=== PATIENT | female | born 1960 | race Caucasian/White ===

== ENCOUNTER → 2017-04-25 10:00 | Outpatient (CLI) | payer SELFPAY ==
--- NOTE | 2017-04-25 | BRBX_PTH ---
PATIENT: VICKEY BUITRAGO LOC: [facility] U#:[id number] AGE/SX: 64/F ROOM: RE04/25/[address]: Dr. Oralia Bermudez MD : 1960 BED: DIS: SPEC #: [id number] RECD: 04/26/17 16:43 STATUS: TOMMY VENKATA #: [id number] MARTÍN: 04/25/17 00:[address]: Oralia Bermudez DEPT: SURGICAL PATHOLOGY RECD BY: Minnie San ENTERED: 04/27/17 10:46 SP TYPE: BREAST BX BRITNI DR: Zeynep Primary Care Phys Tissues: Right breast, NOS Procedures: Special Stain Group I Surgery Specimen Level IV AFB Stain (control) GMS Stain (control) HEADER OPERATION: Ultrasound-guided mammotome right breast PRE-OP DIAGNOSIS: Abnormal mammogram TISSUE SUBMITTED: Ultrasound-guided right breast mammotomeantoinette culture and sensitivity ISCHEMIC TIME: <1 minute FIXATION TIME: 14 hours MICROSCOPIC DIAGNOSIS Right breast, Ultrasound-guided mammotome core biopsy: Fragment of fibroadipose and fibroconnective tissue with acute and chronic inflammation and histiocytic reaction. Negative for atypia or malignancy. Special stains for acid fast bacilli and fungi are negative for organisms; matched controls are appropriate. AYSE:temo 04/30/17 COMMENT Breast tissue is not identified in the submitted specimen. The results of culture study will be reported separately. Correlation with clinical, radiologic findings and appropriate follow up are necessary. MICROSCOPIC DESCRIPTION Slides are reviewed. GROSS DESCRIPTION Received in fixative is one container labeled with the patient's name and designated right breast. The specimen consists of multiple fragments of tay-yellow fibroadipose tissue mixed with multiple fragments of brownish material that in aggregate measure 2.5 x 1.5 x 0.2 cm. The entire specimen is submitted in one cassette. / AYSE:temo 04/27/17 TC:2 CPT: 85897, 59892 x2
== END ==
PROVIDERS: Visit Provider Surgery
DX: R92.8 Other abnormal and inconclusive findings on diagnostic imaging of breast (principal)
CPT/HCPCS: 87070; 87205; 88305; 88312

== ENCOUNTER 2017-06-21 05:36 | Day surgery (SDC) | payer BC, SELFPAY ==
[2017-06-21 06:06] VITALS: BP 109/64; PULSE 66; RESP 16; TEMP 36.3; O2SAT 98; BMI 30.4
--- NOTE | 2017-06-21 07:30 | EMB_PTH ---
PATIENT: VICKEY BUITRAGO LOC: [facility] [place] U#:[id number] AGE/SX: 57/F ROOM: RE06/21/[address]: Dr. Raisa Latham MD : 1960 BED: DIS: 06/21/2017 SPEC #: [id number] RECD: 06/21/17 08:42 STATUS: TOMMY VENKATA #: [id number] MARTÍN: 06/21/17 07:[address]: Raisa Latham DEPT: SURGICAL PATHOLOGY RECD BY: David Virgen ENTERED: 06/21/17 09:11 SP TYPE: ENDOM BX/C BRITNI DR: Dr. Oh Crabtree MD Tissues: Endometrium, NOS Procedures: Surgery Specimen Level IV HEADER OPERATION: Hysteroscopy, dilation and curettage PRE-OP DIAGNOSIS: Postmenopausal bleeding TISSUE SUBMITTED: Endometrial curettings MICROSCOPIC DIAGNOSIS Endometrial curettings: Scant strips of benign endometrial epithelium, consistent with atrophic endometrium. Fragments of benign ectocervical mucosa, endocervical epithelium and blood clots. AYSE:temo 06/22/17 MICROSCOPIC DESCRIPTION Slides are reviewed. GROSS DESCRIPTION Received in fixative is one container labeled with the patient's name and designated endometrial curettings. The specimen consists of multiple fragments of hemorrhagic soft tissue that in aggregate measure 1.5 x 0.2 x 0.1 cm. The specimen is totally submitted in one cassette. / AYSE:temo 06/21/17 TC:4 CPT: 95414
[2017-06-21] MEDS: Lubricating Jelly 60 GM Tube 30 GM TOPICAL (07:50)
--- NOTE | 2017-06-21 08:06 | PCM.DC.D&C ---
Discharge Diet: No Restrictions Discharge Activity: Return to Normal Activity, May Shower, May Take a Tub Bath - in 2 weeks. Return to work on:: 06/25/17 May shower in (days): 0 May resume sexual activity in: 2 weeks Allergies/Adverse Reactions: Allergies No Known Allergies Allergy (Verified 06/14/17 16:00) Medications to take at Discharge Clotrimazole/Betamethasone Dip [Clotrimazole-Betamethasone Lot] 30 ml TP PRN PRN 06/14/17 Ursodiol [Actigall] 300 mg PO TID 06/14/17 Primary Care Physician: Oh Crabtree MD [Primary Care Provider] - Please Follow Up With: Raisa Latham MD - [phone] When: 1-2 weeks or as needed
[2017-06-21 08:08] VITALS: BP 107/66; BP 109/64; PULSE 68; RESP 16; TEMP 36.8; O2SAT 93
--- NOTE | 2017-06-21 08:11 | OP.PCM_ITS ---
Report of Operation Date of Procedure: 06/21/17 Pre-Operative Diagnosis: postmenopausal bleeding Post-Operative Diagnosis: Postmenopausal bleeding Surgery/Procedure Performed:: Hysteroscopy dilation and curettage Description of Surgical Findings:: Normal-appearing cervix, normal vagina. Normal-appearing endometrium without discrete pathology. impression printer: Haydee Filed MS3 Type of Anesthesia:: MAC/Supplemental/Local Anesthesiologist: Rohan Phillips Special Medications: none Specimen's removed: Endometrial curettings Drains: none Estimated Blood Loss (mL): 5cc Fluids Replaced: 700 cc LR Description of Procedure: I The patient was taken to the OR where she was prepped and draped in dorsal lithotomy position. The weighted speculum was placed in the vagina and the anterior lip of the cervix was grasped with a single-tooth tenaculum. A paracervical block was administered with 1% lidocaine with 1-100,000 epinephrine solution. The cervix was dilated serially with Hegar dilators. The 5mm hysteroscope was placed into the uterine cavity and the above findings were noted. Bilateral tubal ostia were identified. The hysteroscope was removed. A gentle sharp curettage was done of the uterine cavity. The instruments were removed from the vagina. The specimen was handed off and sent to pathology. All sponge and needle counts were correct. Vaginal sweep was performed by me. The patient was awakened and taken to the recovery room in stable condition. Hysteroscopic ins: 100 cc normal saline Hysteroscopic outs:70cc Findings: Endometrial cavity: normal, no fibroids or polyps noted Cervix: normal Vagina: normal Grafts/Implants Used: none - Complications none - Admit VTE Documentation VTE Present on Admission: No VTE Mechan Device Prophylaxis: SCD's VTE Pharm Prophylaxis ordered?: No Reason prophylaxis not ordered:: Procedure Not Indicated
[2017-06-21 08:15] VITALS: BP 100/63; BP 109/64; PULSE 65; RESP 14; O2SAT 92
[2017-06-21 08:20] VITALS: BP 109/64; BP 98/64; PULSE 60; RESP 16; O2SAT 93
[2017-06-21 08:25] VITALS: BP 103/70; BP 109/64; PULSE 60; RESP 14; TEMP 36.7; O2SAT 92
[2017-06-21 08:42] VITALS: BP 109/64
== END 2017-06-21 09:50 | disposition home or self-care (01) ==
LOC: SDC 05:37 → AC 05:39
PROVIDERS: Family Provider Family Medicine; PCP Family Medicine; Visit Provider Obstetrics & Gynecology
PROC: 0UDB8ZZ Extraction of Endometrium, Via Natural or Artificial Opening Endoscopic (ICD-10-PCS; CPT 58558; principal; 2017-06-21 07:20)
DX: N85.8 Other specified noninflammatory disorders of uterus (principal); N95.0 Postmenopausal bleeding; K74.3 Primary biliary cirrhosis; E78.2 Mixed hyperlipidemia; F12.90 Cannabis use, unspecified, uncomplicated; Z87.891 Personal history of nicotine dependence; Z79.899 Other long term (current) drug therapy
CPT/HCPCS: 58558; 64435; 88305; J7120

== ENCOUNTER 2018-02-17 09:49 | Emergency (ER) | payer BC, SELFPAY ==
[2018-02-17 09:51] VITALS: BP 142/85; PULSE 79; RESP 16; TEMP 36.5; O2SAT 100; BMI 31.6
--- NOTE | 2018-02-17 10:05 | RAD_ITS ---
STUDY: X-RAY - LEFT SHOULDER REASON FOR EXAM: Female, 57 years old. Pain, decreased range of motion TECHNIQUE: 4 view(s) of the shoulder. COMPARISON: None. FINDINGS: There is mild degenerative arthrosis of the glenohumeral articulation. There is degenerative arthrosis of the acromioclavicular joint without inferior osseous spur formation. Normal acromion. Normal humeral head and visualized proximal humerus. The soft tissue structures are unremarkable. Normal visualized pulmonary apex. RAD/Shoulder min 2 Views IMPRESSION: Mild arthrosis, no demonstrated fracture Electronically Signed: Reinier Messer MD at 10:24 EST , Service support ,
--- NOTE | 2018-02-17 10:10 | ED.VISSUMM ---
- ER Visit Summary Date of Service: 02/17/18 Chief Complaint: Arm injury History of Present Illness: The patient is a 57 F who was shoveling her sidewalk this morning when she fell, landing on her left elbow. This transferred up to her left shoulder and she is now complaining of left shoulder pain. She denies paresthesias. She is right-hand dominant. Physical Examination: Vital signs unremarkable. Patient sitting upright in bed no acute distress. Head neck examination was no external sign of trauma. No C-spine tenderness. Heart is regular rate and rhythm. Lungs sounds are clear. Left upper extremity examination reveals tenderness over the anterior portion of the left shoulder. No evidence of shoulder dislocation. No focal tenderness throughout the humerus, elbow, or forearm. She has strong distal pulses. She does have limited range of motion with abduction secondary to pain. Test Results: Left shoulder x-rays are obtained. Per my review there are no acute fractures or dislocations. Emergency Department Course and Treatment: Patient declined anything for pain while here. Test results are discussed with her. She will be given a sling and instructed to come out of the sling 3 or 4 times a day to work on range of motion at her shoulder. She is given work restrictions for the next 3 days. If she is not improved in 1 week she is to follow-up with her primary care physician for possible further imaging. Treatment Plan: [] Disposition: Discharge Impression: 1. Mechanical fall 2. Left shoulder sprain This note was generated with [employer] dictation software. It may contain incorrect words, spelling, and punctuation that were not noted in review of the chart prior to signing ED Disposition - Plan for ED Patient: Chief Complaint: Upper Extremity Injury Referrals: Oh Crabtree MD [Primary Care Provider] -
--- NOTE | 2018-02-17 10:27 | ED.DEP ---
ED Disposition - Plan for ED Patient: Disposition: Home or Assisted Living Chief Complaint: Upper Extremity Injury Instructions: ED Sprain Shoulder Referrals: Oh Crabtree MD [Primary Care Provider] - 1 Week if not improving
[2018-02-17 10:49] VITALS: RESP 14
== END 2018-02-17 10:49 | disposition home or self-care (01) ==
PROVIDERS: Emergency Provider Emergency Medicine; Family Provider Family Medicine; PCP Family Medicine
DX: S43.402A Unspecified sprain of left shoulder joint, initial encounter (principal); W00.0XXA Fall on same level due to ice and snow, initial encounter; Y93.H1 Activity, digging, shoveling and raking; Y92.008 Other place in unspecified non-institutional (private) residence as the place of occurrence of the external cause; Z87.891 Personal history of nicotine dependence
CPT/HCPCS: 73030; 99282

== ENCOUNTER → 2023-07-17 | Outpatient (CLI) | payer BC, SELFPAY ==
--- NOTE | 2023-07-17 07:30 | PET_ITS ---
EXAMINATION: FDG PET/CT ? INDICATIONS: 63-year-old female with a history of pulmonary nodularity. ? COMPARISON EXAMINATION: None available ? INDEX LESION SIZE SUV INTERPRETATION Right lower lung field, right lower lobe 20.6 mm 14.0 Fulfills quantitative criteria for viable neoplasm ? Right thoracic perihilum 10.7 mm 10.3 Fulfills quantitative criteria for viable neoplasm ? NON-INDEX LESION ? ? ? Right-left thyroid colloid ? 1.9 max Quantitative criteria for viable neoplasm are not fulfilled ? TECHNIQUE: Following the intravenous administration of 12.47 mCi of F-18 deoxyglucose via the right antecubital fossa, multiplanar image acquisitions of the head, neck, chest, abdomen and pelvis to the level of the midthigh, obtained at one-hour post radiopharmaceutical administration contemporaneously interpreted with the current CT of the chest, abdomen and pelvis dated 07/17/2023 via coregistration reveal: ? SERUM GLUCOSE LEVEL:? 83 mg/dL? HEIGHT:?? 64 inches WEIGHT:?? 198 pounds ? FINDINGS: ? HEAD/NECK:? Facilitated uptake is noted in the right-left thyroid colloid generating a calculated standard uptake value of 1.9. ? The visualized portion of the cerebral cortical-subcortical structures demonstrate symmetric and preserved glucose metabolism. ? CHEST:? Facilitated FDG concentration is defined in the right mid posterior lung, right lower lobe generating a calculated standard uptake value of 14.0. The maximal axial diameter of the metabolic, morphologic abnormality is 20.6 mm. Facilitated FDG concentration is noted in the right thoracic perihilum generating a calculated standard uptake value of 10.3. The maximal axial diameter of the metabolic, morphologic abnormality is 10.7 mm. ? CT of the chest demonstrates the following anatomic characteristics: Atherosclerotic calcification is defined in the thoracic aorta without evidence of dilatation, aneurysm formation. Coronary artery calcification is observed. There are no additional parenchymal densities-nodules defined in the right and left hemithorax with quantitatively significant increased FDG uptake. Bilateral axillary and mediastinal soft tissue densities are ametabolic. ? ABDOMEN/PELVIS:? Normal physiologic distribution of the radiopharmaceutical is identified in the hepatic (3.9) and splenic parenchyma, both renal units, urinary bladder, and visualized intestinal tract. The cystic mass demonstrated in the posterior pelvis is nonglucose avid. ? CT of the abdomen and pelvis is remarkable for the following: Atherosclerotic calcification is defined in the abdominal aorta without evidence of dilatation, aneurysm formation. Pelvic arterial calcification is observed. Right and left inguinal soft tissue densities are ametabolic. ? SKELETAL:? An L4 on L5 Type I anterolisthesis is demonstrated. There is no evidence of quantitatively significant enhanced glucose metabolism on meticulous inspection of the appendicular and axial skeletal structures. ? Degenerative changes defined in the thoracic and lumbar spine demonstrate no evidence of increased glucose metabolism. There are no sclerotic, mixed sclerotic-lytic, or primarily lytic changes defined in the axial skeletal structures with evidence of increased FDG uptake. ? PET/PET/CT Tumor Base -Thigh Init IMPRESSION: 1. ABNORMAL EXAMINATION INDICATIVE OF MALIGNANT-VIABLE NEOPLASM. 2. Increased radiopharmaceutical concentration defined in the right lower lung field, right lower lobe fulfills quantitative criteria for viable neoplasm. 3. The right thoracic perihilar hypermetabolic focus fulfills quantitative criteria for malignant transformation. 4. Right and left thyroid colloid radiopharmaceutical concentration does not fulfill quantitative criteria for malignant transformation. (Jaime Michele et al, Journal of Clinical Endocrinology and Metabolism, 88:4100, 2003). Electronic Signature David Balderrama D.O. Accurate Quantification of SUVs for this report are calculated using the exclusive [employer]. ([place].S. Patent No. [phone] 674, 983 B2 [phone] [place] patent [phone]). Standardization and correction of the FDG SUV metric via [employer] technology allow for vendor non-specific objective quantitative examination comparison and optimization of the sensitivity and specificity of the FDG PET-CT examination. . [email or web address] Electronically Signed: David Balderrama DO at 23:07 EDT ,
== END | disposition home or self-care (01) ==
PROVIDERS: PCP Family Medicine
DX: R91.1 Solitary pulmonary nodule (principal)
CPT/HCPCS: 78815; A9552

== ENCOUNTER → 2023-08-24 | Outpatient (CLI) | payer BC, SELFPAY ==
[2023-08-24] VITALS (14 sets, daily range): BP systolic 91–131; BP diastolic 37–65; PULSE 50–67; RESP 9–18; TEMP 36.4; O2SAT 95–100; BMI 34.0
[2023-08-24 08:36] LABS: Absolute Lymphocyte Count 1.57 X10^3/uL (0.83-4.51); Absolute Neutrophil Count 4.2 X10^3/uL (2.0-7.7); Basophil# 0.07 X10^3/uL; Basophil% 1.1 % (0-1); Eosinophil# 0.18 X10^3/uL; Eosinophils% 2.7 % (0-5); Hematocrit 39.3 % (37-47); Hemoglobin 13.4 g/dL (12.0-15.0); Lymphocyte # 1.57 X10^3/ul (0.83-4.51); Lymphocyte % 23.9 % (19-41); Mean Corp Hgb Conc 34.1 g/dL (32-36); Mean Corpuscular Hgb 31.3 pg (27.0-32.0); Mean Corpuscular Volume 91.8 fL (81-99); Mean Platelet Vol. 9.4 fl (6.2-12.0); Monocyte# 0.54 X10^3/uL; Monocyte% 8.2 % (0-10); NRBC Flagged by Analyzer 0 % (0-5); Neutrophil % 63.8 % (47-70); Platelet Count 214 K/mm3 (150-450); RBC Distribution Width CV 12.4 % (11.6-14.6); RBC Distribution Width SD 41.5 fl (35.1-43.9); Red Blood Count 4.28 M/mm3 (4.2-5.4); White Blood Count 6.6 K/mm3 (4.4-11.0)
[2023-08-24 08:53] LABS: Prothrombin Time (Protime)PT. 12.8 SECONDS (11.7-14.9)
[2023-08-24] MEDS: 0.9% Saline Lock 10 ML Syringe IV (09:03)
[2023-08-24] MEDS: 0.9% Normal Saline (250mL Bag) 250 ML 15 ML IV (09:13)
[2023-08-24] MEDS: Midazolam 2 MG/2 ML Syringe IV (09:15)
--- NOTE | 2023-08-24 09:15 | CT_ITS ---
PROCEDURE: CT GUIDED CORE NEEDLE BIOPSY OF A right lower lobe LUNG LESION INDICATION: Female, 63 years old. Solitary pulmonary nodule PHYSICIAN: Dr. Mukul Villa CONSENT: Written informed consent was obtained having explained the risks, benefits and alternatives in detail with the patient who accepted the risks and agreed to proceed. Laboratory review and clinical assessment was performed. CONSCIOUS SEDATION PROTOCOL: The Drugs used were: 2 mg Versed, IV., and micrograms Fentanyl, IV. The sedation time was: 20 minutes. Conscious sedation was started at 9:15 AM and terminated at 9:35 AM The conscious sedation protocol was independently monitored. RADIATION DOSAGE (If Supplied By Facility): CTDIvol = ( 20.5 ) mGy, DLP = ( 537.84 ) mGycm Individualized dose optimization techniques were used for this CT. TECHNIQUE: The patient was placed in the prone position. A noncontrast CT was performed to localize the lesion in the right lower lobe . The skin surface was prepped and draped in a sterile fashion. 1% lidocaine was used for local anesthesia. Using CT guidance, a 20-gauge coaxial biopsy device was advanced to the periphery of the lesion. A total of 6 core specimens were obtained. The specimens were placed in a formalin solution. A post procedure CT demonstrated no adverse sequelae or pneumothorax. The patient tolerated the procedure well without adverse event. A negative biopsy does not exclude malignancy. Further imaging or clinical followup based on patient condition and degree of clinical suspicion for malignancy. Suggest rebiopsy, if biopsy results do not match with clinical scenario. CT/Biopsy/Inj or Needle Placement IMPRESSION: 1. CT directed core needle biopsy of the right lower lobe pulmonary nodule using CT image guidance with image documentation as described. Pathology results are pending. 2. Conscious Sedation protocol utilized with independent monitoring. Electronically Signed: Ciro Gilman MD at 10:10 EDT ,
[2023-08-24] MEDS: fentaNYL 100 MCG/2 ML Ampul IV (09:16)
[2023-08-24] MEDS: Lidocaine 2% (20 ml mdv) 20 ML Vial INFILT (09:22)
--- NOTE | 2023-08-24 09:40 | RAD_ITS ---
STUDY: X-RAY CHEST REASON FOR EXAM: Female, 63 years old. Post lung biopsy -- Immediately post lung biopsy TECHNIQUE: AP inspiration and expiration views. COMPARISON: None. FINDINGS: EKG electrodes are seen. The patient is status post right lung biopsy. There is no evidence of pneumothorax. RAD/Chest Insp/Exp 2 View IMPRESSION: There is no evidence of pneumothorax on the immediate post right lung biopsy radiographs. Electronically Signed: Ciro Gilman MD at 10:25 EDT ,
--- NOTE | 2023-08-24 11:35 | RAD_ITS ---
STUDY: X-RAY CHEST REASON FOR EXAM: Female, 63 years old. 2 hr post lung biopsy -- 2 hours post lung biopsy TECHNIQUE: AP inspiration and expiration views. COMPARISON: Comparison is made with prior examination done earlier today. FINDINGS: There is no evidence of pneumothorax on the two-hour post right lung biopsy radiographs. RAD/Chest Insp/Exp 2 View IMPRESSION: No evidence of pneumothorax on the two-hour post right lung biopsy radiographs. Electronically Signed: Ciro Gilman MD at 11:54 EDT ,
== END | disposition home or self-care (01) ==
LOC: CT 08:18
PROVIDERS: PCP Family Medicine; Referring Provider Emergency Medicine
DX: R91.1 Solitary pulmonary nodule (principal); J84.9 Interstitial pulmonary disease, unspecified; R06.02 Shortness of breath; L93.2 Other local lupus erythematosus
CPT/HCPCS: 32408; 36415; 71046; 77012; 85025; 85610; 88172; 88305; 88313; 88341; 88342; 99156; J7050; C2613

== ENCOUNTER 2024-05-27 11:09 | Emergency (ER) | payer BC, SELFPAY ==
[2024-05-27] VITALS (7 sets, daily range): BP systolic 91–114; BP diastolic 45–71; PULSE 70–87; RESP 13–18; TEMP 36.6–36.8; O2SAT 97–100; BMI 31.4
--- NOTE | 2024-05-27 11:15 | ED.RN ---
Respiratory called for EKG
--- NOTE | 2024-05-27 11:26 | ED.VIS.CHEST ---
HPI History of Present Illness Chief Complaint: Chest Pain Informant: patient and family Narrative Narrative: Left-sided chest pain waking at 2:30 AM mild ache in her back when checked deep breath pain in left shoulder. No recent cough. No nausea or vomiting. Patient called PCP office referred to ED. Recent diagnosis of stage II lung cancer with adenocarcinoma she had a partial right lower lobe lung resection May 01 in the hospital for 3 days. Currently on heparin injections twice a day which family is given. This morning's dose was not given. Denies history of PE or DVT. Denies any cardiac history. Remote tobacco. Denies hypertension diabetes hyperlipidemia. No family history of MIs at young age. Reports no chemo however plans to restart her immunotherapy of Keytruda. Prior Similar Symptoms: No CVD Risk Factors: Positive for Smoking; Negative for Hypertension, Diabetes, Hypercholesterolemia or Family History 1' </=55 PE Risk Factors: Positive for Recent Travel/Surgery; Negative for Recent Immobilization or Prior DVT or PE PFSH PFSH Home Medications ?Medication ?Instructions ?Recorded ?Last Taken ?Type ursodiol 300 mg capsule (Actigall) 300 mg PO TID 06/14/17 05/27/24 History acetaminophen 500 mg capsule 500 mg PO Q6H PRN pain 05/27/24 05/27/24 History cholecalciferol (vitamin D3) 50 50 mcg PO DAILY 05/27/24 05/27/24 History mcg (2,000 unit) capsule cinacalcet 30 mg tablet 30 mg PO DAILY 05/27/24 05/27/24 History folic acid 1 mg tablet 1 mg PO DAILY 05/27/24 05/27/24 History heparin (porcine) 5,000 unit/mL 5,000 unit subcut Q12H 05/27/24 05/26/24 History injection solution hydroxychloroquine 200 mg tablet 200 mg PO BID 05/27/24 05/27/24 History levothyroxine 50 mcg tablet 50 mcg PO DAILY 05/27/24 05/27/24 History magnesium chloride 71.5 mg 71.5 mg PO DAILY 05/27/24 05/27/24 History (magnesium chloride) tablet,delayed release (Slow-Mag) metoprolol tartrate 25 mg tablet 12.5 mg PO Q12H 05/27/24 05/26/24 History pantoprazole 40 mg tablet,delayed 40 mg PO DAILY 05/27/24 05/27/24 History release Allergy/AdvReac Type Severity Reaction Status Date / Time adhesive tape AdvReac Rash Verified 05/27/24 11:13 albuterol AdvReac Other Verified 05/27/24 11:13 Social History (Updated 05/27/24 @ 11:30 by Bree Bhat) household members: spouse housing: house Smoking Status: Former smoker ROS ROS ED Constitutional Constitutional ED: Denies chills, fever(s) or sweats ENT ENT ED: Denies sore throat Cardiovascular Cardiovascular: Reports chest pain; Denies leg edema, palpitations or racing heartbeat Respiratory/Chest Respiratory/Chest: Denies cough, dyspnea or dyspnea on exertion Gastrointestinal Gastrointestinal: Denies abdominal pain, diarrhea, nausea or vomiting Genitourinary Genitourinary ED: Denies dysuria, hematuria or urinary frequency Musculoskeletal Musculoskeletal: Denies back pain, extremity pain or neck pain Integumentary Denies rash or wounds Neurologic Neurologic: Denies headache(s), paresthesias or weakness EXAM Physical Exam Const Vital Signs: 05/27/24 11:10 05/27/24 11:29 05/27/24 11:29 Temperature 97.8 F Temperature Source Oral Pulse Rate 87 Respiratory Rate 18 Respiratory Effort Normal Non-Labored Blood Pressure 113/70 Blood Pressure Mean 84 Pulse Ox 100 100 Oxygen Delivery Method Room Air Room Air 05/27/24 12:09 05/27/24 13:00 05/27/24 14:00 Temperature Temperature Source Pulse Rate 79 78 70 Respiratory Rate 13 18 18 Respiratory Effort Blood Pressure 108/45 L 99/56 L 91/52 L Blood Pressure Mean 66 70 65 Pulse Ox 97 98 98 Oxygen Delivery Method 05/27/24 15:00 Temperature Temperature Source Pulse Rate 78 Respiratory Rate 18 Respiratory Effort Blood Pressure 110/65 Blood Pressure Mean 80 Pulse Ox 98 Oxygen Delivery Method Positive well nourished and well developed General Appearance ED: well developed and NAD HEENT Reports moist mucous membranes normocephalic and atraumatic Eyes General Eye ED: Yes normal appearance of both eyes Neck full ROM Chest Wall Chest: Negative for tenderness Resp normal respiratory effort and normal air movement Resp Narrative: Symmetric breath sounds. Effort and Inspection: symmetric chest movement; Negative for respiratory distress Cardio regular rate, regular rhythm and no murmurs Peripheral Pulses: pulses 2+ throughout GI normal to inspection, nondistended, normoactive bowel sounds and non-tender GI Narrative: Intermittent stages of bruising lower abdomen from heparin injections. No erythema or drainage. Palpation: Negative for guarding or rebound tenderness present Back/Spine Back/Spine Narrative: Posterior thoracic laparoscopic scars with scabbing x 3. No erythema or drainage. Extremity normal to inspection General Extremety ED: Negative for edema or tenderness General Extremity: Negative for edema Neuro oriented x3 and no sensory deficits noted Sensorium / Orientation: awake and alert Skin no rashes or lesions noted and no wounds Heart Score History: Slightly/Non-Suspicious ECG: Normal Age: >45 - <65 years Risk Factors: 1 or 2 Risk Factors Troponin: </= Normal Limit Score: 2 MDM MDM MDM Narrative Medical decision making narrative: Interventions / MDM: Differential diagnosis: Pleuritic chest pain, status post lobectomy, history of adenocarcinoma of the lung Diagnosis considered but do not suspect: Pulm embolism, aortic dissection, however CT negative. ACS however EKG has no ischemic findings and negative cardiac enzymes. My EKG interpretation: Sinus rate of 80, no ST or T wave changes right bundle branch block. Imaging independently reviewed and interpreted by myself: CTA chest: No central PE, no dissection, small right pleural effusion with atelectasis. Possible pneumonia read by radiology. External documents reviewed: N/A Test considered but not ordered:N/A ED course: Patient's EKG right bundle branch block no acute findings no old for comparison. Vital stable. Cardiac workup initiated D-dimer added with her recent surgery. Normal heart rate normal pulse ox. 1345: Initial troponin negative. D-dimer returned elevated at 5.12. Creatinine 1.[address] angiogram ordered for further evaluation. Patient with no worsening symptoms on reevaluation. 1540: CT chest negative for PE, right pleural effusion with compressive atelectasis, possible consolidation per radiology however patient with no clinical cough or concerns for pneumonia. Delta troponin returned negative. Discussed pleuritic chest pain with patient and family. She will continue Tylenol. She has oxycodone from postop that she does not use. Patient is reassured on findings. She not hypoxic. She is provided image studies on a disk prior to discharge as she is followed by [facility]. All questions were answered. Re-evaluation: stable Disposition discussed with patient/family/significant other: Patient and family Case discussed with consulting clinician: N/A This note was generated with Dragon dictation software. It may contain incorrect words, spelling, and punctuation that were not noted in checking the note before signing. Lab Data Attestation: I reviewed the patient's lab results. Labs: Laboratory Results - last 24 hr 05/27/24 05/27/24 12:06 14:20 WBC 14.4 H RBC 3.08 L Hgb 10.5 L Hct 30.8 L MCV 100.0 H MCH 34.1 H MCHC 34.1 RDW Std Deviation 46.1 H RDW Coeff of Zuleyka 12.6 Plt Count 247 MPV 9.4 Immature Gran % (Auto) 1.200 H Neut % (Auto) 84.7 H Lymph % (Auto) 6.9 L [place] % (Auto) 6.4 Eos % (Auto) 0.5 Baso % (Auto) 0.3 Absolute Neuts (auto) 12.2 H Absolute Lymphs (auto) 1.00 Nucleated RBC % 0 PT 13.2 INR 1.0 APTT 32.4 D-Dimer Quant (PE/DVT) 5.12 H* Sodium 135 Potassium 4.3 Chloride 99 Carbon Dioxide 25.2 Anion Gap 11 BUN 15 Creatinine 1.20 Estim Creat Clear Calc 50.08 Est GFR (MDRD) Non-Af 51 L BUN/Creatinine Ratio 12.8 Glucose 93 Calcium 8.9 Troponin T High Sens 6 Troponin T Hi Sens 2 Hr 7 Radiography Diagnostic Testing: Clinical Impression(s) from Imaging Studies Chest CTA 05/27/24 13:02 IMPRESSION: 1. No pulmonary embolism is identified. Some of the distal pulmonary arteries cannot be evaluated due to suboptimal opacification. 2. Right pleural effusion with compressive atelectasis. Partial consolidation of the right lower lobe. Pneumonia can not be excluded. Reading Location: [facility] Discharge Plan Triage Chief Complaint: Chest Pain ED Provider: Pablo Churchill Dx/Rx/DC Orders Clinical Impression: Chest pain, pleuritic, S/P lobectomy of lung, Adenocarcinoma of lung, stage 2 Instructions: ED Chest Pain, Noncardiac, ED Pleurisy Prescriptions: No Action ursodiol [Actigall] 300 MG capsule 300 mg PO TID levothyroxine 50 mcg tablet 50 mcg PO DAILY folic acid 1 mg tablet 1 mg PO DAILY heparin (porcine) 5,000 unit/mL solution 5,000 unit subcut Q12H Patient Comments: [NO ORIGINAL SIG] metoprolol tartrate 25 mg tablet 12.5 mg PO Q12H cinacalcet 30 mg tablet 30 mg PO DAILY pantoprazole 40 mg tablet,delayed release (DR/EC) 40 mg PO DAILY hydroxychloroquine 200 mg tablet 200 mg PO BID cholecalciferol (vitamin D3) 50 mcg (2,000 unit) capsule 50 mcg PO DAILY Slow-Mag 71.5 mg tablet,delayed release (DR/EC) 71.5 mg PO DAILY acetaminophen 500 mg capsule 500 mg PO Q6H PRN (Reason: pain) Primary Care Provider: Oh Crabtree Referrals: John Ross DO [Med Staff - Active Staff] - Keep Dante appointment Oh Crabtree MD [Primary Care Provider] - 1 Week Activity Restrictions/Additional Instructions: Cardiac workup negative. CT scan chest negative for PE. Small right pleural effusion with atelectasis. Print Language: Tanzanian Disposition Disposition: Home, Self Care
[2024-05-27 12:15] LABS: Absolute Neutrophil Count 12.2 X10^3/uL (2.0-7.7); Basophil# 0.05 X10^3/uL; Basophil% 0.3 % (0-1); Eosinophil# 0.07 X10^3/uL; Eosinophils% 0.5 % (0-5); Hematocrit 30.8 % (37-47); Hemoglobin 10.5 g/dL (12.0-15.0); Lymphocyte % 6.9 % (19-41); Mean Corp Hgb Conc 34.1 g/dL (32-36); Mean Corpuscular Hgb 34.1 pg (27.0-32.0); Mean Platelet Vol. 9.4 fl (6.2-12.0); Monocyte# 0.92 X10^3/uL; Monocyte% 6.4 % (0-10); NRBC Flagged by Analyzer 0 % (0-5); Neutrophil # 12.21 X10^3/uL (2.7-7.7); Neutrophil % 84.7 % (47-70); Platelet Count 247 K/mm3 (150-450); RBC Distribution Width CV 12.6 % (11.6-14.6); RBC Distribution Width SD 46.1 fl (35.1-43.9); Red Blood Count 3.08 M/mm3 (4.2-5.4); White Blood Count 14.4 K/mm3 (4.4-11.0)
[2024-05-27 12:26] LABS: Prothrombin Time (Protime)PT. 13.2 SECONDS (11.7-14.9)
[2024-05-27 12:27] LABS: Partial Thromboplast Time 32.4 Seconds (24.1-36.2)
[2024-05-27 12:39] LABS: Anion Gap 11 (5-15); BUN 15 mg/dL (4-19); BUN/Creat Ratio 12.8 RATIO (10-20); Calcium,Total 8.9 mg/dL (7.6-11.0); Carbon Dioxide 25.2 mmol/L (21.0-32.0); Chloride 99 mmol/L (98-108); EST Glomerular Filtration Rate 51 (>60); Estimated Creatinine Clearance 50.08 ml/min (50-250); Glucose 93 mg/dL (70-99); Potassium 4.3 mmol/L (3.3-5.1); Sodium Level 135 mmol/L (133-145); Troponin T High Sensitivity 6 ng/L (<=14)
[2024-05-27 13:01] LABS: D-Dimer Quantitative (DVT/PE) 5.12 FEU/ug/m (0.27-0.49)
--- NOTE | 2024-05-27 13:01 | ED.RN ---
LAB CALLED D-DIMER OF 5.12
--- NOTE | 2024-05-27 13:02 | CT_ITS ---
EXAM: CT Angiography Chest Without and With Intravenous Contrast CLINICAL INDICATION: CHEST PAIN, ELEVATED DIMER TECHNIQUE: Axial computed tomographic angiography images of the chest without and with intravenous contrast. This CT exam was performed using one or more of the following dose reduction techniques: automated exposure control, adjustment of the mA and/or kV according to patient size, and/or use of iterative reconstruction technique. MIP reconstructed images were created and reviewed. COMPARISON: No relevant prior studies available. FINDINGS: LIMITATIONS: Suboptimal opacification of the pulmonary arteries. PULMONARY ARTERIES: No pulmonary embolism is identified. Some of the distal pulmonary arteries cannot be evaluated due to suboptimal opacification. AORTA: No acute findings. No thoracic aortic aneurysm. LUNGS AND PLEURAL SPACES: Right pleural effusion with compressive atelectasis. Partial consolidation of the right lower lobe. Pneumonia can not be excluded. Lung emphysema/COPD. HEART: Unremarkable. No cardiomegaly. No significant pericardial effusion. No evidence of RV dysfunction. BONES/JOINTS: No acute fracture. No dislocation. SOFT TISSUES: Unremarkable. LYMPH NODES: Unremarkable. No enlarged lymph nodes. LIVER: Fatty liver. CT/CTA Chest W/WO Contrast IMPRESSION: 1. No pulmonary embolism is identified. Some of the distal pulmonary arteries cannot be evaluated due to suboptimal opacification. 2. Right pleural effusion with compressive atelectasis. Partial consolidation of the right lower lobe. Pneumonia can not be excluded. Reading Location[facility]
[2024-05-27 15:24] LABS: Troponin T High Sens 2 HR 7 ng/L (<=14)
== END 2024-05-27 15:52 | disposition home or self-care (01) ==
PROVIDERS: Emergency Provider Emergency Medicine; PCP Family Medicine; Visit Provider Emergency Medicine
DX: R07.81 Pleurodynia (principal); C34.90 Malignant neoplasm of unspecified part of unspecified bronchus or lung; Z79.899 Other long term (current) drug therapy; Z87.891 Personal history of nicotine dependence
CPT/HCPCS: 71275; 80048; 84484; 85025; 85379; 85610; 85730; 93005; 99283; Q9967; A4216

== ENCOUNTER → 2024-09-26 | Outpatient (CLI) | payer BC, SELFPAY ==
--- OUTSIDE RECORDS SUMMARY | 2024-09-26 20:13 | XMS RPT_ITS | CCD ---
Author Organization [facility] Care Team Providers Care Nail Technician Teacher Name Role Phone Camilo Jonas MD Primary Care Provider Camilo Jonas MD Primary Care Provider Ny Ross MD Unavailable Jodie SHUKLA, PhD, Sudish Unavailable [phone] ALF CASTLE Referring Unavailable CAMILO JONAS Primary Care Unavailable Reva Pineda DOily A Unavailable Alf Castle DO Unavailable Doup Ann MORRIS Unavailable Unavailable ABDOH, MAMOUN Admitting Unavailable ABDOH MAMOUN Attending Unavailable CAMILO JONAS Primary Care Unavailable Haagen RAILROAD MAINTENANCE CLERK.GALILEA Jennifer Unavailable Suppan RAILROAD MAINTENANCE CLERK.DIRECTOR OF PURCHASING, Sidra A Unavailable [phone] Suppan RAILROAD MAINTENANCE CLERK.DIRECTOR OF PURCHASING, Sidra A Unavailable Suppan RAILROAD MAINTENANCE CLERK.DIRECTOR OF PURCHASING, Sidra A Unavailable [phone] PALOMO JOSEPH Attending Unavailabl e CAMILO JONAS Primary Care Unavailable ALF CASTLE Referring Unavailable Provider Soha SHUKLA Unavailable Unavailable PRITESH, CAMILO Field Primary Care Unavailable GLORIA CHAO Admitting Unavailable NIR HSU Attending Unavailable ALF CASTLE Consulting Unavailable PRITESH, CAMILO Field Primary Care Unavailable JODIE, SUDISH Referring Unavailable PRITESH, CAMILO Field Primary Care Unavailable JODIE, SUDISH Referring Unavailable JODIE, SUDISH Attending Unavailable PRITESH, CAMILO Field Primary Care Unavailable Granville, Camilo Primary Care Unavailable Elizabeth Ledesma Attending Unavailable Elizabeth Ledesma Referring Unavailable Pablo Churchill Attending Unavailable Pritesh, Camilo Primary Care Unavailable PRITESH, CAMILO Field Primary Care Unavailable MASCI, ALF A Referring Unavailable PRITESH, CAMILO J Primary Care Unavailable MASCI, ALF A Referring Unavailable ELIZABETH LEDESMA Attending Unavailable PRITESH, CAMILO J Primary Care Unavailable MAYCO ARCHIBALD Attending Unavailable PRITESH, CAMILO J Primary Care Unavailable PRITESH, CAMILO J Primary Care Unavailable MASCI, ALF A Referring Unavailable PRITESH, CAMILO J Primary Care Unavailable PRITESH, CAMILO J Primary Care Unavailable MASCI, ALF A Referring Unavailable PRITESH, CAMILO J Primary Care Unavailable MASCI, ALF A Referring Unavailable PRITESH, ACMILO J Primary Care Unavailable KRIS ESTEBAN Attending Unavailable PRITESH, CAMILO J Primary Care Unavailable MASCI, ALF A Referring Unavailable PRITESH, CAMILO J Primary Care Unavailable SOLOMON GRAHAM Referring Unavailable PRITESH, CAMILO J Primary Care Unavailable TESSIE KAUFMAN Referring Unavailable WEGAS, TESSIE Attending Unavailable PRITESH, CAMILO J Primary Care Unavailable BOAZ PINEDA Attending Unavailable PRITESH, CAMILO J Primary Care Unavailable WEGASTESSIE Referring Unavailable PRITESH, CAMILO J Primary Care Unavailable MASCI, ALF A Attending Unavailable PRITESH, [facility] Primary Care Unavailable PRITESH, [facility] Primary Care Unavailable PRITESH, CAMILO J Referring Unavailable WEGASTESSIE Attending Unavailable PRITESH, CAMILO J Primary Care Unavailable TAMY HURLEY Referring Unavailable PRITESH, CAMILO J Primary Care Unavailable MASCI, ALF A Referring Unavailable PRITESH, CAMILO J Primary Care Unavailable MASCI, ALF A Referring Unavailable PRITESH, [facility] Primary Care Unavailable MASCI, ALF A Referring Unavailable PRITESH, CAMILO J Primary Care Unavailable MASCI, ALF A Attending Unavailable PRITESH, [facility] Primary Care Unavailable MASCI, ALF A Referring Unavailable PRITESH, [facility] Primary Care Unavailable MASCI, ALF A Referring Unavailable PRITESH, [facility] Primary Care Unavailable MIRIAMBOAZ PUENTES Attending Unavailable PRITESH, [facility] Primary Care Unavailable MIRIAMBOAZ CAMERON Referring Unavailable PRITESH, CAMILO Emir Primary Care Unavailable MASCI, ALF A Referring Unavailable PRITESH, CAMILO Emir Primary Care Unavailable PRITESH, [facility] Primary Care Unavailable JODIE, SUDISH Referring Unavailable PRITESH, [facility] Primary Care Unavailable NY ROSS Referring Unavailable JODIE, ISIDOROISH Attending Unavailable PRITESH, CAMILO Emir Primary Care Unavailable ELOISE MONTESINOS Attending Unavailable PRITESH, CAMILO J Primary Care Unavailable ALLEN VALDES Attending Unavailable PRITESH, [facility] Primary Care Unavailable JODIE, SUDISH Referring Unavailable MASCI, ALF A Referring Unavailable PRITESH, CAMILO Field Primary Care Unavailable PRITESH, CAMILO Field Primary Care Unavailable MASCI, ALF A Referring Unavailable PRITESH, CAMILO Field Primary Care Unavailable MASCI, ALF A Referring Unavailable PRITESH, CAMILO J Primary Care Unavailable MASCI, ALF A Referring Unavailable PRITESH, CAMILO J Primary Care Unavailable JENNIFER RENAE Attending Unavailable PRITESH, CAMILO Field Primary Care Unavailable JOHNSON CHOLES, PALOMO Referring Unavailabl e PRITESH, CAMILO Field Primary Care Unavailable JODIE, SUDISH Referring Unavailable PRITESH, CAMILO Field Primary Care Unavailable JODIE, SUDISH Referring Unavailable PRITESH, CAMILO Field Primary Care Unavailable PRITESH, CAMILO Field Primary Care Unavailable MAYCO ARCHIBALD Attending Unavailable PRITESH, CAMILO Field Primary Care Unavailable PRITESH, CAMILO Field Primary Care Unavailable JOHNSON CHOLES, PALOMO Referring Unavailabl e PRITESH, CAMILO Field Primary Care Unavailable MASCI, ALF A Referring Unavailable PRITESH, CAMILO Field Primary Care Unavailable ARACELISNIR BRENNER Referring Unavailable SIDRA HURLEY Attending Unavailable PRITESH, CAMILO Field Primary Care Unavailable MASCI, ALF A Attending Unavailable PRITESH, CAMILO Field Primary Care Unavailable PRITESH, CAMILO Field Primary Care Unavailable MASCI, ALF A Referring Unavailable PRITESH, CAMILO Field Primary Care Unavailable MASCI, ALF A Referring Unavailable PRITESH, CAMILO Field Primary Care Unavailable PRITESH, CAMILO Field Primary Care Unavailable MASCI, ALF A Referring Unavailable PRITESH, CAMILO Field Primary Care Unavailable JODIE, SUDISH Referring Unavailable PRITESH, CAMILO Field Primary Care Unavailable JODIE, SUDISH Referring Unavailable PRITESH, CAMILO Field Primary Care Unavailable PRITESH, CAMILO Field Primary Care Unavailable MASCI, ALF A Attending Unavailable PRITESH, CAMILO Field Primary Care Unavailable PRITESH, CAMILO Field Primary Care Unavailable PRITESH, CAMILO Field Primary Care Unavailable PRITESH, CAMILO Field Primary Care Unavailable MARCELO SHER Attending Unavailable PRITESH, CAMILO Field Primary Care Unavailable PRITESH, CAMILO Field Primary Care Unavailable MASCI, ALF A Referring Unavailable PRITESH, CAMILO Field Primary Care Unavailable PRITESH, CAMILO Field Primary Care Unavailable PRITESH, CAMILO Field Primary Care Unavailable MASCI, ALF A Referring Unavailable PRITESH, CAMILO Field Primary Care Unavailable PRITESH, CAMILO Field Primary Care Unavailable JODIE, SUDISH Referring Unavailable PRITESH, CAMILO Field Primary Care Unavailable JODIE, SUDISH Referring Unavailable PRITESH, CAMILO Field Primary Care Unavailable JODIE, SUDISH Referring Unavailable PRITESH, CAMILO Field Primary Care Unavailable PRITESH, CAMILO J Primary Care Unavailable MASCI, ALF A Referring Unavailable PRITESH, CAMILO J Primary Care Unavailable MASCI, ALF A Attending Unavailable PRITESH, CAMILO J Primary Care Unavailable ALLEN VALDES Attending Unavailable MASCI, ALF A Attending Unavailable PRITESH, CAMILO J Primary Care Unavailable PRITESH, CAMILO J Primary Care Unavailable PRITESH, CAMILO J Primary Care Unavailable MASCI, ALF A Referring Unavailable PRITESH, CAMILO J Primary Care Unavailable MASCI, ALF A Referring Unavailable PRITESH, CAMILO J Primary Care Unavailable PRITESH, CAMILO J Primary Care Unavailable PRITESH, CAMILO J Primary Care Unavailable PRITESH, CAMILO J Primary Care Unavailable PRITESH, CAMILO J Primary Care Unavailable MAYCO ARCHIBALD Attending Unavailable PRTIESH, CAMILO J Primary Care Unavailable PRITESH, CAMILO J Primary Care Unavailable RAISA LATHAM Referring Unavailable PRITESH, CAMILO J Primary Care Unavailable KRIS ESTEBAN Attending Unavailable PRITESH, [facility] Primary Care Unavailable PRITESH, CAMILO J Primary Care Unavailable MASCI, ALF A Referring Unavailable PRITESH, [facility] Primary Care Unavailable MASCI, ALF A Referring Unavailable PRITESH, [facility] Primary Care Unavailable MASCI, ALF A Referring Unavailable PRITESH, [facility] Primary Care Unavailable MASCI, ALF A Attending Unavailable PRITESH, [facility] Primary Care Unavailable MASCI, ALF A Referring Unavailable PRITESH, [facility] Primary Care Unavailable TESSIE KAUFMAN Attending Unavailable PRITESH, [facility] Primary Care Unavailable OTILIOOHCHAMP Referring Unavailable PRITESH, [facility] Primary Care Unavailable OTILIOOHHCAMP Attending Unavailable PRITESH, [facility] Primary Care Unavailable MASCI, ALF A Attending Unavailable PRITESH, [facility] Primary Care Unavailable MASCI, ALF A Referring Unavailable PRITESH, [facility] Primary Care Unavailable MAYCO ARCHIBALD Attending Unavailable PRITESH, [facility] Primary Care Unavailable MASCI, ALF A Referring Unavailable PRITESH, [facility] Primary Care Unavailable SOLOMON GRAHAM C Referring Unavailable PRITESH, [facility] Primary Care Unavailable SOLOMON GRAHAM C Referring Unavailable TESSIE KAUFMAN Attending Unavailable PRITESH, [facility] Primary Care Unavailable PRITESH, [facility] Primary Care Unavailable PRITESH, [facility] Primary Care Unavailable MASCI, ALF A Referring Unavailable PRITESH, [facility] Primary Care Unavailable SUZANNE NOLASCO Referring Unavailable PRITESH, [facility] Primary Care Unavailable ALLEN VALDES Attending Unavailable PRITESH, [facility] Primary Care Unavailable SUZANNE NOLASCO Attending Unavailable PRITESH, [facility] Primary Care Unavailable SIDRA HURLEY Referring Unavailable CAMILO JONAS Primary Care Unavailable SIDRA HURLEY Attending Unavailable CAMILO JONAS Primary Care Unavailable ALLEN VALDES Referring Unavailable CAMILO JONAS Primary Care Unavailable TESSIE KAUFMAN Referring Unavailable CAMILO JONAS Primary Care Unavailable SUZANNE NOLASCO Attending Unavailable CAMILO JONAS Primary Care Unavailable CAMILO JONAS Primary Care Unavailable ALF CASTLE Referring Unavailable CAMILO JONAS Primary Care Unavailable JODIEJANETT LE Attending Unavailable JODIE SUDISH Admitting Unavailable Allergies Allergy Classification Reported Allergen(s) Allergy Type Date of Onset Reaction(s) Facility Adhesive Tape (1 source) Adhesive Tape Substance Allergy 9 Itching [facility] (20 sources) Adhesive Tape; Translations: [ADHESIVE TAPE (ROSINS)] Propensity to adverse reactions to substance 9 Itching [facility] Work Phone: (20 sources) Albuterol; Translations: [ALBUTEROL] Drug Allergy 5 Other: See Comments [facility] (1 source) Adhesive Tape Drug allergy (disorder) 5 [facility] (1 source) Albuterol Drug Allergy 5 [facility] Medications Current Medications Medication Drug Class(es) Dates Sig (Normalized) Sig (Original) acetaminophen 500 mg oral tablet (20 sources) Start: 05-03-2024 take 2 tablets by mouth every six hours as needed acetaminophen (TYLENOL) 500 mg tablet Take 2 tablets by mouth every 6 hours as needed for pain. 05/03/2024 Active [id number] 200 actuat albuterol 0.09 mg/actuat metered dose inhaler (20 sources) beta2-Adrenergic Agonist Start: 07-05-2023 take 2 puff(s) by inhalation every four hours as needed albuterol HFA (PROVENTIL HFA, VENTOLIN HFA) 90 mcg/actuation inhaler Inhale 2 Puffs as instructed every 4 hours as needed. 1 Each 5 07/05/2023 Active betamethasone 0.5 mg/ml / clotrimazole 10 mg/ml topical lotion (20 sources) Azole Antifungal, Corticosteroid Start: 06-14-2017 clotrimazole-betam ethasone (LOTRISONE) lotion Betamethasone / Clotrimazole Clotrimazole/Betam ethasone Dip [Clotrimazole-Beta methasone Lot] 30 ML TP NEEDED PRN For SKIN June 14, 2017 Active 06-14-2017 [facility] ([id number]) 06/14/2017 Active Comment on above: Betamethasone / Clot rimazole Clotrimazole/Betamethasone Dip [Clotrimazole-Betamethasone Lot] 30 ML TP NEEDED PRN For SKIN June 14, 2017 Active 06-14-2017 [facility] ([id number]) Biotin (20 sources) take 1 tablet by mouth once daily BIOTIN ORAL Take 1 tablet by mouth once daily. Active End: 04-10-2024 take 1 tablet by mouth once daily biotin 5,000 mcg ODT Take 1 tablet by mouth once daily. 04/10/2024 Discontinued (Discontinued by Patient) Comment on above: Take by mouth once d aily. cholecalciferol, vitamin D3, (VITAMIN D3 ORAL) (20 sources) take 1 tablet by mouth once daily cholecalciferol, vitamin D3, (VITAMIN D3 ORAL) Take 1 tablet by mouth once daily. Active clobetasol propionate 0.5 mg/ml topical solution (20 sources) Corticosteroid Start : 12-16 Clobetasol Propionate (TEMOVATE) 0.05 % external solution Indications: Cutaneous lupus erythematosus Apply to affected areas on the scalp twice a day. Dispense 100ml as 30 day supply. 100 mL 3 12/16/2018 Active Comment on above: Apply to affected ar eas on the scalp twice a day. Dispense 100ml as 30 day supply. folic acid 1 mg oral tablet (20 sources) Start : 11-26 End: 07-21 take 1 tablet by mouth once daily folic acid 1 mg tablet Take 1 tablet by mouth once daily. 90 tablet 2 07/21/2024 Active 1 ml heparin sodium, porcine 5000 unt/ml injection (9 sources) Unfractionated Heparin, Anti-coagulant Start : 05-03 End: 05-31 inject 1 mL by subcutaneous injection every twelve hours in the evening heparin 5,000 unit/mL injection Inject 1 mL subcutaneously every 12 hours for 28 days. 56 mL 05/03/2024 2:41 PM EDT 05/03/2024 05/31/2024 Active hydroxychloroquine sulfate 200 mg oral tablet (20 sources) Antimalarial, Antirheumatic Agent Start : 05-15 End: 01-26 hydrOXYchloroQUINE (PLAQUENIL) 200 mg tablet Take 1 tablet by mouth two times a day. PER DR. PINEDA (RHEUM) 180 tablet 1 07/30/2024 01/26/2025 Active Start: 03-21-2021 End: 04-23-2024 take 1 tablet by mouth twice daily hydrOXYchloroQUINE (PLAQUENIL) 200 mg tablet Indications: Cutaneous lupus erythematosus Take 1 tablet by mouth two times a day. 180 tablet 01/24/2024 04/23/2024 Active Comment on above: Take 1 tablet by dagoberto th twice daily. TAKE 1 TABLET TWICE A DAY Take 1 tablet by dagoberto th two times a day. iv contrast (will be provided with radiology test) (6 sources) Start: 10-22-2023 End: 10-23-2023 iv contrast (will be provided with radiology test) Indications: Cancer of lower lobe of right lung (HCC) CT Chest W -Inject, intravenously, once for 1 dose.No IV access, insert saline lock prior to the beginning of sedation, infusion, injection of imaging exam. Discontinue saline lock post exam. If Pt. has a central line or IVAD, may access for administration according to line specific nursing protocol. Once exam is complete flush line and de-access according to line specific nursing protocol in the CT contrast administration guidelines link. 1 Each 10/22/2023 10/23/2023 Active Start: 09-04-2023 End: 09-05-2023 inject 1 dose intravenously once iv contrast (will be provided with radiology test) MRI Brain Inject, intravenously, once for 1 dose.No IV access, insert saline lock prior to beginning of sedation, infusion, injection of imaging exam.Discontinue saline lock post exam. If Pt. has a central line or IVAD, may access for administration according to line specific nursing protocol.Once exam is complete flush line and de-access according to line specific nursing protocol in the MR contrast administration guidelines link 1 Each 0 09/04/2023 09/05/2023 Active Start: 04-04-2023 End: 04-05-2023 iv contrast (will be provide d with radiology test) MRI PANC/ARMANDO Inject, intravenously, once for 1 dose. No IV access, insert saline lock prior to the beginning of sedation, infusion, injection of imaging exam. Discontinue saline lock post exam. If Pt. has a central line or IVAD, may access for administration according to line specific nursing protocol. Once exam is complete flush line and de-access according to line specific nursing protocol in the MR contrast administration guidelines link. 1 Each 0 04/04/2023 04/05/2023 Start: 04-04-2023 End: 04-05-2023 iv contrast (will be provide d with radiology test) MRI PANC/ARMANDO Inject, intravenously, once for 1 dose. No IV access, insert saline lock prior to the beginning of sedation, infusion, injection of imaging exam. Discontinue saline lock post exam. If Pt. has a central line or IVAD, may access for administration according to line specific nursing protocol. Once exam is complete flush line and de-access according to line specific nursing protocol in the MR contrast administration guidelines link. 1 Each 0 04/04/2023 04/05/2023 Active Comment on above: MRI PANC/ARMANDO Inject, intravenously, once for 1 dose. No IV access, insert saline lock prior to the beginning of sedation, infusion, injection of imaging exam. Discontinue saline lock post exam. If Pt. has a central line or IVAD, may access for administration according to line specific nursing protocol. Once exam is complete flush line and de-access according to line specific nursing protocol in the MR contrast administration guidelines link. levothyroxine sodium 0.1 mg oral tablet (20 sources) l-Thyroxine Start: 08-12-19 25 End: 08-12-19 26 take 1 tablet by mouth once daily in the morning levothyroxine (SYNTHROID) 100 mcg tablet Indications: Hypothyroidism, acquired Take 1 tablet by mouth daily at 6 am. 90 tablet 3 08/11/2024 08/11/2025 Active Start: 06-12-2024 End: 10-12-2024 take 2 tablets by mouth once daily in the morning levothyroxine (SYNTHROID) 50 mcg tablet Indications: Hypothyroidism, acquired Take 2 tablets by mouth daily at 6 am. 180 tablet 07/14/2024 08/11/2024 Discontinued Start: 04-04-2024 End: 07-03-2024 take 1 tablet by mouth once daily in the morning levothyroxine (SYNTHROID) 50 mcg tablet Take 1 tablet by mouth daily at 6 am. 90 tablet 04/04/2024 06/12/2024 Discontinued mupirocin 0.02 mg/mg topical ointment (20 sources) RNA Synthetase Inhibitor Antibacterial Start: 09-15-2024 mupirocin (BACTR OBAN) 2 % ointment Indications: Lip ulcer Apply to affected area three times a day. 22 g 09/15/2024 Active Start: 03-18-2024 End: 04-10-2024 apply 22 g nasal route once in the morning mupirocin (BACTROBAN) 2 % ointment Apply small amount of Mupirocin with a Q tip in each nostril. Apply in the morning and before bed the day before surgery . Apply third time the morning of surgery 22 g 03/18/2024 04/10/2024 Discontinued (Other) nirmatrelvir tablet 300 mg (150 mg x 2) and ritonavir tablet 100 mg in a dose pack (PAXLOVID) (1 source) Start: 01-30-2022 End: 02-04-2022 nirmatrelvir tablet 300 mg (150 mg x 2) and ritonavir tablet 100 mg in a dose pack (PAXLOVID) Indications: COVID Administer TWO pink nirmatrelvir 150 mg tablets and ONE white ritonavir 100 mg tablet for a total of three tablets twice daily. 30 tablet 0 01/30/2022 02/04/2022 Active Comment on above: Administer TWO pink nirmatrelvir 150 mg tablets and ONE white ritonavir 100 mg tablet for a total of three tablets twice daily. pantoprazole 40 mg delayed release oral tablet (20 sources) Proton Pump Inhibitor Start: 03-22-2021 End: 08-11-2025 take 1 tablet by mouth once daily pantoprazole DR (PROTONIX) 40 mg tablet Indications: Gastroesophageal reflux disease with esophagitis, unspecified whether hemorrhage Take 1 tablet by mouth once daily. 90 tablet 3 08/11/2024 08/11/2025 Active Comment on above: Take 1 tablet by dagoberto once daily. TAKE 1 TABLET DAILY perflutren lipid microspheres 1.3 mL in NaCl (PF) 0.9% 10 mL injection (DEFINITY) (3 sources) Start: 04-03-2024 End: 04-10-2024 perflutren lipid microspheres 1.3 mL in NaCl (PF) 0.9% 10 mL injection (DEFINITY) predniSONE 10 mg oral tablet (20 sources) Start: 04-04-2024 End: 04-25-2024 take 3 tablets by mouth once daily, then take 2 tablets by mouth once daily, then take 1 tablet by mouth once daily predniSONE (DELTASONE) 10 mg tablet Take 3 tablets by mouth once daily for 7 days, THEN 2 tablets once daily for 7 days, THEN 1 tablet once daily for 7 days. 42 tablet 04/04/2024 04/25/2024 Active Start: 03-21-2024 take 2 tablets by mo uth once daily predniSONE (DELTASONE) 20 mg tablet Take 2 tablets by mouth once daily. 90 tablet 1 03/21/2024 Active Start: 03-13-2024 End: 03-21-2024 take 3 tablets by mouth once daily predniSONE (DELTASONE) 20 mg tablet Take 3 tablets by mouth once daily. 90 tablet 1 03/13/2024 03/21/2024 Discontinued Start: 09-25-2022 End: 09-30-2022 take 1 tablet by mouth once daily at mealtime predniSONE (DELTASONE) 20 mg tablet Indications: Acute pain of right knee Take 1 tablet by mouth once daily for 5 days. Take daily with food. 5 tablet 09/25/2022 09/30/2022 prochlorperazine 10 mg oral tablet (20 sources) Phenothiazine Start: 12-03-2023 take 1 tablet by mouth every six hours as needed for nausea and vomiting prochlorperazine (COMPAZINE) 10 mg tablet Indications: Non-small cell cancer of right lung (HCC) Take 1 tablet by mouth every 6 hours as needed. For chemotherapy induced nausea and vomiting. 30 tablet 2 12/03/2023 Active 125 ml sodium chloride 9 mg/ml prefilled syringe (9 sources) Start: 04-03-2024 End: 04-10-2024 sodium chloride 0.9 % (flush) 10 mL (BD POSIFLUSH) Start: 03-05-2024 End: 03-05-2024 1,000 mL, INTRAVENOUS, at 99 9 mL/hr, Administer over 1 Hours, ONCE, 1 dose, On Sun03/05/24 at 0830 Start: 03-03-2024 End: 03-03-2024 1,000 mL, INTRAVENOUS, at 99 9 mL/hr, Administer over 1 Hours, ONCE, 1 dose, On Sun03/03/24 at 0900 Start: 02-12-2024 End: 02-12-2024 1,000 mL, INTRAVENOUS, at 99 9 mL/hr, Administer over 1 Hours, ONCE, 1 dose, On Sun02/12/24 at 1030 Start: 01-25-2024 End: 01-25-2024 1,000 mL/hr (rounded to 999 mL/hr), INTRAVENOUS, Administer over 1 Hours, ONCE, 1 dose, On Sun01/25/24 at 0830 Start: 01-01-2024 End: 01-01-2024 999 mL/hr, INTRAVENOUS, Admi nister over 1 Hours, ONCE, 1 dose, On Sun01/01/24 at 1300, Give after chemotherapy. Start: 12-10-2023 End: 12-10-2023 999 mL/hr, INTRAVENOUS, Admi nister over 1 Hours, ONCE, 1 dose, On Sun12/10/23 at 1130, Give after chemotherapy. tacrolimus 0.001 mg/mg topical ointment (20 sources) Calcineurin Inhibitor Immunosuppressant Start: 12-16-2018 tacrolimus (PROTOPIC) 0.1 % ointment Indications: Cutaneous lupus erythematosus Apply twice daily to affected areas on face 30 g 3 12/16/2018 Active Comment on above: Apply twice daily to affected areas on f miriam ursodiol 300 mg oral capsule (20 sources) Bile Acid Start: 01-06-2024 take 1 capsule by mouth three times daily ursodiol (ACTIGALL) 300 mg capsule Take 1 capsule by mouth three times a day. 270 capsule 3 01/06/2024 Active Start: 05-05-2022 End: 01-01-2024 take 1 capsule by mouth three times daily ursodiol (ACTIGALL) 300 mg capsule Take 1 capsule by mouth three times a day. 270 capsule 3 04/10/2023 10/22/2023 Discontinued Start: 03-31-2021 End: 04-29-2022 take 1 capsule by mouth three times daily ursodiol (ACTIGALL) 300 mg capsule Take 1 capsule by mouth three times daily. 270 capsule 3 03/31/2021 04/29/2022 Discontinued Comment on above: Take 1 capsule by mo ut three times daily. valACYclovir 1000 mg oral tablet (5 sources) Herpesvirus Nucleoside Analog DNA Polymerase Inhibitor, Herpes Simplex Virus Nucleoside Analog DNA Polymerase Inhibitor, Herpes Zoster Virus Nucleoside Analog DNA Polymerase Inhibitor Start: End: take 1 tablet by mouth twice daily valACYclovir (VALTREX) 1 gram tablet Indications: Lip ulcer Take 1 tablet by mouth two times a day for 7 days. 14 tablet 09/15/2024 09/22/2024 Active Completed/Discontinued Medications Medication Drug Class(es) Dates Sig (Normalized) Sig (Original) amoxicillin 500 mg oral capsule (11 sources) Penicillin-class Antibacterial Start: 01-02-2021 End: 11-28-2021 amoxicillin (POLYMOX, AMOXIL) 500 mg capsule TAKE 2 CAPSULES BY MOUTH AT ONCE, Then TAKE 1 CAPSULE BY MOUTH EVERY 8 HOURS 0 01/02/2021 11/28/2021 Discontinued (Course of therapy completed) Comment on above: TAKE 2 CAPSULES BY M OUTH AT ONCE, Then TAKE 1 CAPSULE BY MOUTH EVERY 8 HOURS calcium carbonate 1250 mg / cholecalciferol 0.01 mg oral tablet (20 sources) Vitamin D End: 04-10-2024 take 1 tablet by mouth once daily Calcium-Cholecalc iferol, D3, 500 mg-10 mcg (400 unit) per tablet Take 1 tablet by mouth once daily. 04/10/2024 Discontinued (Discontinued by Patient) Comment on above: Take [facility] daily. cholecalciferol 0.025 mg oral capsule (20 sources) Vitamin D Start: 11-29-2020 End: 04-04-2023 take 2 capsules by mouth once daily Cholecalciferol, Vitamin D3, (VITAMIN D) 25 mcg (1,000 unit) cap Take 2 capsules by mouth once daily. 11/29/2020 04/04/2023 Discontinued End: 04-10-2024 take 1 tablet by mouth once daily cholecalciferol (VITAMIN D-3) 50 mcg (2,000 unit) tablet Take 4,000 Units by mouth once daily. 04/10/2024 Discontinued (Discontinued by Patient) Comment on above: Take 2 capsules by m outh once daily. cinacalcet 30 mg oral tablet (20 sources) Calcium-sensing Receptor Agonist Start: End: take 1 tablet by mouth once daily cinacalcet (SENSIPAR) 30 mg tablet Take 1 tablet by mouth once daily. 30 tablet 1 04/16/2024 05/21/2024 Discontinued CISplatin 150 mg in NaCl 0.9% 1,200 mL (PLATINOL) (2 sources) Start: End: 150 mg (rounded from 151.5 mg = 75 mg/m2 2.02 m2 Treatment Plan BSA from Recorded weight), INTRAVENOUS, Administer over 1 Hours, ONCE, 1 dose, On Sun01/01/24 at 1200, exp 1600 01/02/24 (room temp) Hazardous Chemotherapy Drug: Use appropriate PPE. Antineoplastic Vesicant for concentrations greater than 0.4 mg/mL - Antineoplastic Irritant for concentrations less than 0.4 mg/mL. Protect from Light. Start: 12-10-2023 End: 12-10-2023 150 mg (rounded from 151.5 m g = 75 mg/m2 2.02 m2 Treatment Plan BSA from Recorded weight), INTRAVENOUS, Administer over 1 Hours, ONCE, 1 dose, On Sun12/10/23 at 1030, Approx Total Volume Expires: 12/11/23 @ 1445 Hazardous Chemotherapy Drug: Use appropriate PPE. Antineoplastic Vesicant for concentrations greater than 0.4 mg/mL - Antineoplastic Irritant for concentrations less than 0.4 mg/mL. Protect from Light. 1 ml dexamethasone phosphate 10 mg/ml injection (4 sources) Corticosteroid Start: 02-11-2024 End: 02-11-2024 10 mg, INTRAVENOUS, ONCE, 1 dose, On Sun02/11/24 at 0900, Administer over 5 minutes. Start: 01-23-2024 End: 01-23-2024 10 mg, INTRAVENOUS, ONCE, 1 dose, On Sun01/23/24 at 0800, Administer over 5 minutes. Start: 01-01-2024 End: 01-01-2024 10 mg, INTRAVENOUS, ONCE, 1 dose, On Sun01/01/24 at 1000, Administer over 5 minutes. Start: 12-10-2023 End: 11-04-2024 10 mg, INTRAVENOUS, ONCE, 1 dose, On Sun12/10/23 at 0830, Administer over 5 minutes. [id number]-gvxsy yuriy (BMX 1:1:1) 1:1:1 liqd (20 sources) Start: 01-18-2024 End: 08-11-2024 take 5 mL by mouth every four hours as needed [id number]-[id number] (BMX 1:1:1) 1:1:1 liqd Indications: Mouth sore secondary to chemotherapy , Non-small cell cancer of right lung (HCC) Take 5 mL by mouth every 4 hours as needed. 473 mL 2 01/18/2024 08/11/2024 Discontinued (Discontinued by Patient) Start: 01-18-2024 take 5 mL by mouth every four hours as needed [id number]-[id number]-otvzsxlyw (BMX 1: 1:1) 1:1:1 liqd Indications: Mouth sore secondary to chemotherapy , Non-small cell cancer of right lung (HCC) Take 5 mL by mouth every 4 hours as needed. 473 mL 2 01/18/2024 Active enteric contrast (will be provided with radiology test) (1 source) Start: 01-24-2024 End: 01-24-2024 take 1 dose by mouth once, then take 1 dose by mouth once enteric contrast (will be provided with radiology test) Indications: Non-small cell cancer of right lung (HCC) Take 1 Each by mouth one time only for [address] Chest ABD/PEL WO Routine order Administer, As Directed One Time Only, via Oral, Rectal, both Oral and Rectal, Enteric Tube, Stoma or Indwelling Catheter, Enteric Contrast as designated per enteric contrast guidelines 1 Each 01/24/2024 01/24/2024 fosaprepitant 150 mg injection (3 sources) Start: 01-23-2024 End: 01-23-2024 150 mg, INTRAVENOUS, Administer over 30 Minutes, ONCE, 1 dose, On Sun01/23/24 at 0800, Refrigerate Start: 01-01-2024 End: 01-01-2024 150 mg, INTRAVENOUS, Adminis ter over 30 Minutes, ONCE, 1 dose, On Sun01/01/24 at 1000, Refrigerate Start: 12-10-2023 End: 12-10-2023 150 mg, INTRAVENOUS, Adminis ter over 30 Minutes, ONCE, 1 dose, On Sun12/10/23 at 0830, Approximate Total Volume = 280 mL Refrigerate fosaprepitant 150 mg in NaCl 0.9% 250 mL (EMEND) (1 source) Start: 02-11-2024 End: 02-11-2024 150 mg, INTRAVENOUS, Administer over 30 Minutes, ONCE, 1 dose, On Sun02/11/24 at 0900, Approximate Total Volume = 280 mL Refrigerate Magnesium Chloride (20 sources) End: 04-10-2024 take 1 tablet by mouth twice daily magnesium chloride (SLOW-MAG ORAL) Take 1 tablet by mouth two times a day. 04/10/2024 Discontinued (Discontinued by Patient) take 1 tablet by mouth twice analilia ly magnesium chloride (SLOW-MAG ORAL) Take 1 tablet by mouth two times a day. Active 100 ml magnesium sulfate 40 mg/ml injection (12 sources) Start: 04-28-2024 End: 04-28-2024 take 2 g intravenously every hour 4 g, INTRAVENOUS, at 25-50 mL/hr, Administer over 2-4 Hours, ONCE, 1 dose, On Sun04/28/24 at 1000, Magnesium sulfate iv bolus will be infused at a rate of 1 gram/hr The following nursing units may administer 2 g dose over 1 hour if necessary: ICUs/PACU/ED, Adult Hematology/Oncology, Labor and Delivery, Cardiac Stepdown, Headache Clinic If necessary, a magnesium sulfate bolus may be administered greater than 2 g/hr for the following indications: Adult and Pediatric Asthma Exacerbations, Torsade de Pointes, Pediatric BMT and Hematology/Oncology, Eclampsia or Preeclampsia Start: 03-25-2024 End: 03-25-2024 take 2 g intravenously every hour 4 g, INTRAVENOUS, at 25-50 mL/hr, Administer over 2-4 Hours, ONCE, 1 dose, On Sun03/25/24 at 1100, Magnesium sulfate iv bolus will be infused at a rate of 1 gram/hr The following nursing units may administer 2 g dose over 1 hour if necessary: ICUs/PACU/ED, Adult Hematology/Oncology, Labor and Delivery, Cardiac Stepdown, Headache Clinic If necessary, a magnesium sulfate bolus may be administered greater than 2 g/hr for the following indications: Adult and Pediatric Asthma Exacerbations, Torsade de Pointes, Pediatric BMT and Hematology/Oncology, Eclampsia or Preeclampsia Start: 03-21-2024 End: 03-21-2024 take 2 g intravenously every hour 4 g, INTRAVENOUS, at 25-50 mL/hr, Administer over 2-4 Hours, ONCE, 1 dose, On Sun03/21/24 at 1000, 6 gm today Magnesium sulfate iv bolus will be infused at a rate of 1 gram/hr The following nursing units may administer 2 g dose over 1 hour if necessary: ICUs/PACU/ED, Adult Hematology/Oncology, Labor and Delivery, Cardiac Stepdown, Headache Clinic If necessary, a magnesium sulfate bolus may be administered greater than 2 g/hr for the following indications: Adult and Pediatric Asthma Exacerbations, Torsade de Pointes, Pediatric BMT and Hematology/Oncology, Eclampsia or Preeclampsia Start: 03-05-2024 End: 03-05-2024 take 2 g intravenously every hour 4 g, INTRAVENOUS, at 25-50 mL/hr, Administer over 2-4 Hours, ONCE, 1 dose, On Sun03/05/24 at 0900, 6 gm today Magnesium sulfate iv bolus will be infused at a rate of 1 gram/hr The following nursing units may administer 2 g dose over 1 hour if necessary: ICUs/PACU/ED, Adult Hematology/Oncology, Labor and Delivery, Cardiac Stepdown, Headache Clinic If necessary, a magnesium sulfate bolus may be administered greater than 2 g/hr for the following indications: Adult and Pediatric Asthma Exacerbations, Torsade de Pointes, Pediatric BMT and Hematology/Oncology, Eclampsia or Preeclampsia Start: 03-03-2024 End: 03-03-2024 take 2 g intravenously every hour 4 g, INTRAVENOUS, at 25-50 mL/hr, Administer over 2-4 Hours, ONCE, 1 dose, On Sun03/03/24 at 0900, 6 gm today Magnesium sulfate iv bolus will be infused at a rate of 1 gram/hr The following nursing units may administer 2 g dose over 1 hour if necessary: ICUs/PACU/ED, Adult Hematology/Oncology, Labor and Delivery, Cardiac Stepdown, Headache Clinic If necessary, a magnesium sulfate bolus may be administered greater than 2 g/hr for the following indications: Adult and Pediatric Asthma Exacerbations, Torsade de Pointes, Pediatric BMT and Hematology/Oncology, Eclampsia or Preeclampsia Start: 02-12-2024 End: 02-12-2024 take 2 g intravenously every hour 2 g, INTRAVENOUS, at 25-50 mL/hr, Administer over 1-2 Hours, ONCE, 1 dose, On Sun02/12/24 at 1030, Magnesium sulfate iv bolus will be infused at a rate of 1 gram/hr The following nursing units may administer 2 g dose over 1 hour if necessary: ICUs/PACU/ED, Adult Hematology/Oncology, Labor and Delivery, Cardiac Stepdown, Headache Clinic If necessary, a magnesium sulfate bolus may be administered greater than 2 g/hr for the following indications: Adult and Pediatric Asthma Exacerbations, Torsade de Pointes, Pediatric BMT and Hematology/Oncology, Eclampsia or Preeclampsia Start: 02-12-2024 End: 02-12-2024 take 2 g intravenously every hour 4 g, INTRAVENOUS, at 25-50 mL/hr, Administer over 2-4 Hours, ONCE, 1 dose, On Sun02/12/24 at 1030, 6 gm today Magnesium sulfate iv bolus will be infused at a rate of 1 gram/hr The following nursing units may administer 2 g dose over 1 hour if necessary: ICUs/PACU/ED, Adult Hematology/Oncology, Labor and Delivery, Cardiac Stepdown, Headache Clinic If necessary, a magnesium sulfate bolus may be administered greater than 2 g/hr for the following indications: Adult and Pediatric Asthma Exacerbations, Torsade de Pointes, Pediatric BMT and Hematology/Oncology, Eclampsia or Preeclampsia Start: 01-25-2024 End: 01-25-2024 take 2 g intravenously every hour 4 g, INTRAVENOUS, at 25-50 mL/hr, Administer over 2-4 Hours, ONCE, 1 dose, On Sun01/25/24 at 0930, Magnesium sulfate iv bolus will be infused at a rate of 1 gram/hr The following nursing units may administer 2 g dose over 1 hour if necessary: ICUs/PACU/ED, Adult Hematology/Oncology, Labor and Delivery, Cardiac Stepdown, Headache Clinic If necessary, a magnesium sulfate bolus may be administered greater than 2 g/hr for the following indications: Adult and Pediatric Asthma Exacerbations, Torsade de Pointes, Pediatric BMT and Hematology/Oncology, Eclampsia or Preeclampsia Start: 01-23-2024 End: 01-23-2024 take 2 g intravenously every hour 2 g, INTRAVENOUS, at 25-50 mL/hr, Administer over 1-2 Hours, ONCE, 1 dose, On Sun01/23/24 at 0900, Magnesium sulfate iv bolus will be infused at a rate of 1 gram/hr The following nursing units may administer 2 g dose over 1 hour if necessary: ICUs/PACU/ED, Adult Hematology/Oncology, Labor and Delivery, Cardiac Stepdown, Headache Clinic If necessary, a magnesium sulfate bolus may be administered greater than 2 g/hr for the following indications: Adult and Pediatric Asthma Exacerbations, Torsade de Pointes, Pediatric BMT and Hematology/Oncology, Eclampsia or Preeclampsia Start: 01-23-2024 End: 01-23-2024 take 2 g intravenously every hour 4 g, INTRAVENOUS, at 25-50 mL/hr, Administer over 2-4 Hours, ONCE, 1 dose, On Sun01/23/24 at 0900, 6 gm today Magnesium sulfate iv bolus will be infused at a rate of 1 gram/hr The following nursing units may administer 2 g dose over 1 hour if necessary: ICUs/PACU/ED, Adult Hematology/Oncology, Labor and Delivery, Cardiac Stepdown, Headache Clinic If necessary, a magnesium sulfate bolus may be administered greater than 2 g/hr for the following indications: Adult and Pediatric Asthma Exacerbations, Torsade de Pointes, Pediatric BMT and Hematology/Oncology, Eclampsia or Preeclampsia Start: 01-18-2024 End: 01-18-2024 take 2 g intravenously every hour 2 g, INTRAVENOUS, at 25-50 mL/hr, Administer over 1-2 Hours, ONCE, 1 dose, On Sun01/18/24 at 0930, Magnesium sulfate iv bolus will be infused at a rate of 1 gram/hr The following nursing units may administer 2 g dose over 1 hour if necessary: ICUs/PACU/ED, Adult Hematology/Oncology, Labor and Delivery, Cardiac Stepdown, Headache Clinic If necessary, a magnesium sulfate bolus may be administered greater than 2 g/hr for the following indications: Adult and Pediatric Asthma Exacerbations, Torsade de Pointes, Pediatric BMT and Hematology/Oncology, Eclampsia or Preeclampsia Start: 01-18-2024 End: 01-18-2024 take 2 g intravenously every hour 4 g, INTRAVENOUS, at 25-50 mL/hr, Administer over 2-4 Hours, ONCE, 1 dose, On Sun01/18/24 at 0930, 6 gm today Magnesium sulfate iv bolus will be infused at a rate of 1 gram/hr The following nursing units may administer 2 g dose over 1 hour if necessary: ICUs/PACU/ED, Adult Hematology/Oncology, Labor and Delivery, Cardiac Stepdown, Headache Clinic If necessary, a magnesium sulfate bolus may be administered greater than 2 g/hr for the following indications: Adult and Pediatric Asthma Exacerbations, Torsade de Pointes, Pediatric BMT and Hematology/Oncology, Eclampsia or Preeclampsia metoprolol tartrate 25 mg oral tablet (14 sources) beta-Adrenergic Brittany Start: 05-03-2024 End: 06-19-2024 take 1 tablet by mouth every twelve hours in the evening metoprolol tartrate, short acting, (LOPRESSOR) 25 mg tablet Take one half of a tablet by mouth every 12 hours. 30 tablet 05/03/2024 2:41 PM EDT 05/03/2024 06/19/2024 Discontinued NaCl 0.9% 1,000 mL (4 sources) Start: 02-11-2024 End: 02-11-2024 INTRAVENOUS, at 999 mL/hr, Administer over 1 Hours, ONCE, 1 dose, On Sun02/11/24 at 1000 Start: 01-23-2024 End: 01-23-2024 INTRAVENOUS, at 999 mL/hr, A dminister over 1 Hours, ONCE, 1 dose, On Sun01/23/24 at 0900 Start: 01-01-2024 End: 01-01-2024 INTRAVENOUS, at 999 mL/hr, A dminister over 1 Hours, ONCE, 1 dose, On Sun01/01/24 at 1100 Start: 12-10-2023 End: 12-10-2023 INTRAVENOUS, at 999 mL/hr, A dminister over 1 Hours, ONCE, 1 dose, On Sun12/10/23 at 0930 nystatin 117372 unt/ml oral suspension (20 sources) Polyene Antifungal Start: 09-27-2021 End: 06-30-2022 nystatin (MYCOSTATIN) 100,000 unit/mL suspension RINSE AND SPIT DIRECTED FOUR TIMES DAILY 0 09/27/2021 06/30/2022 Discontinued Comment on above: RINSE AND SPIT DI RECTED FOUR TIMES DAILY oxyCODONE hydrochloride 5 mg oral tablet (4 sources) Opioid Agonist Start: 05-03-2024 End: 05-17-2024 take 1 tablet by mouth every six hours as needed oxyCODONE IR (ROXICODONE) 5 mg immediate release tablet Indications: Non-small cell cancer of right lung (HCC) , Lung nodule Take 1 tablet by mouth every 6 hours as needed for up to 7 days. 28 tablet 05/03/2024 2:41 PM EDT 05/03/2024 05/09/2024 Discontinued 5 ml palonosetron 0.05 mg/ml injection (4 sources) Serotonin-3 Receptor Antagonist Start: 02-11-2024 End: 02-11-2024 0.25 mg, INTRAVENOUS, ONCE, 1 dose, On Sun02/11/24 at 0900, Flush IV line with NS prior to and following administration. Start: 01-23-2024 End: 01-23-2024 0.25 mg, INTRAVENOUS, ONCE, 1 dose, On Sun01/23/24 at 0800, Flush IV line with NS prior to and following administration. Start: 01-01-2024 End: 01-01-2024 0.25 mg, INTRAVENOUS, ONCE, 1 dose, On Sun01/01/24 at 1000, Flush IV line with NS prior to and following administration. Start: 12-10-2023 End: 12-10-2023 0.25 mg, INTRAVENOUS, ONCE, 1 dose, On Sun12/10/23 at 0830, Flush IV line with NS prior to and following administration. pembrolizumab 200 mg in NaCl 0.9% 66 mL (KEYTRUDA) (9 sources) Start: 08-22-2024 End: 08-22-2024 200 mg, INTRAVENOUS, Adminis ter over 30 Minutes, ONCE, 1 dose, On Sun08/22/24 at 1400, Approx Total Volume - Expires: 08/22/24 @ 2000 Administer with 0.2 micron filter. Start: 08-01-2024 End: 08-01-2024 200 mg, INTRAVENOUS, Adminis ter over 30 Minutes, ONCE, 1 dose, On Sun08/01/24 at 1400, Approx Total Volume - Expires: 08/01/24 @ 1945 Administer with 0.2 micron filter. Start: 07-11-2024 End: 07-11-2024 200 mg, INTRAVENOUS, Adminis ter over 30 Minutes, ONCE, 1 dose, On Sun07/11/24 at 1500, Approx Total Volume - Expires: 07/11/24 @ 2050 Administer with 0.2 micron filter. Start: 06-20-2024 End: 06-20-2024 200 mg, INTRAVENOUS, Adminis ter over 30 Minutes, ONCE, 1 dose, On Sun06/20/24 at 1430, Approx Total Volume:exp 1400 06/23/24 (refrigerated) Administer with 0.2 micron filter. Start: 03-03-2024 End: 03-03-2024 200 mg, INTRAVENOUS, Adminis ter over 30 Minutes, ONCE, 1 dose, On Sun03/03/24 at 0900, Approx Total Volume: exp 0830 03/07/24 (refrigerated) Administer with 0.2 micron filter. Start: 02-11-2024 End: 02-11-2024 200 mg, INTRAVENOUS, Adminis ter over 30 Minutes, ONCE, 1 dose, On Sun02/11/24 at 0930, Approx Total Volume:exp 1500 02/11/24 (room temp) Administer with 0.2 micron filter. Start: 01-21-2024 End: 01-21-2024 200 mg, INTRAVENOUS, Adminis ter over 30 Minutes, ONCE, 1 dose, On Sun01/21/24 at 0830, Approx Total Volume: exp 1400 01/21/24 (room temp) Administer with 0.2 micron filter. Start: 01-01-2024 End: 01-01-2024 200 mg, INTRAVENOUS, Adminis ter over 30 Minutes, ONCE, 1 dose, On Tu01/01/24 at 1030, Approx Total Volume: exp 0900 01/05/24 (refrigerated) Administer with 0.2 micron filter. Start: 12-10-2023 End: 12-10-2023 200 mg, INTRAVENOUS, Adminis ter over 30 Minutes, ONCE, 1 dose, On Sun12/10/23 at 0900, Approx Total Volume - Expires: 12/10/23 @ 1445 Administer with 0.2 micron filter. PEMEtrexed disodium 1,000 mg in NaCl 0.9% 150 mL (ALIMTA) (2 sources) Start: 01-01-2024 End: 01-01-2024 1,000 mg (rounded from 1,010 mg = 500 mg/m2 2.02 m2 Treatment Plan BSA from Recorded weight), INTRAVENOUS, Administer over 10 Minutes, ONCE, 1 dose, On Tu01/01/24 at 1100, exp 0900 01/03/24 (refrigerated) Hazardous Chemotherapy Drug: Use appropriate PPE. Start: 12-10-2023 End: 12-10-2023 1,000 mg (rounded from 1,010 mg = 500 mg/m2 2.02 m2 Treatment Plan BSA from Recorded weight), INTRAVENOUS, Administer over 10 Minutes, ONCE, 1 dose, On Sun12/10/23 at 0930, Approx Total Volume - Expires: 12/11/23 @ 1445 Hazardous Chemotherapy Drug: Use appropriate PPE. PEMEtrexed disodium 788 mg in NaCl 0.9% 141.52 mL (ALIMTA) (1 source) Start: 02-11-2024 End: 02-11-2024 788 mg (400 mg/m2 1.97 m2 Treatment Plan BSA from Recorded weight), INTRAVENOUS, Administer over 10 Minutes, ONCE, 1 dose, On Sun02/11/24 at 1000, exp 0900 02/12/24 (room temp) Hazardous Chemotherapy Drug: Use appropriate PPE. polyethylene glycol 3350 69719 mg powder for oral solution (14 sources) Osmotic Laxative Start: 05-03-2024 End: 06-19-2024 polyethylene glycol 3350 17 gram packet Take 1 Packet by mouth once daily as needed for constipation. Dissolve dose in 4 - 8 ounces of liquid and take as directed. 7 Packet 05/03/2024 06/19/2024 Discontinued triamcinolone acetonide 1 mg/ml topical cream (20 sources) Corticosteroid Start: 01-21-2018 End: 04-10-2024 triamcinolone acetonide (KENALOG) 0.1 % cream Apply to rash on body twice a day -, take weekends off 454 g 01/21/2018 04/10/2024 Discontinued (Discontinued by Patient) Comment on above: Apply to rash on bod y twice a day M-F, take weekends off vitamin b12 1 mg/ml injectable solution (2 sources) Vitamin B12 Start: 01-23-2024 End: 01-23-2024 inject 1 dose by intramuscular injection once 1,000 mcg, INTRAMUSCULAR, ONCE, 1 dose, On Sun01/23/24 at 0800 Start: 11-27-2023 End: 11-27-2023 inject 1 dose by intramuscular injection once 1,000 mcg, INTRAMUSCULAR, ONCE, 1 dose, On Tu11/27/23 at 1000 Problems Active Problems Problem Classification Problem Date Documented Date Episodic/Chronic Biliary tract disease (20 sources) Primary sclerosing cholangitis; Translations: [Primary sclerosing cholangitis] Onset: 12-25-2022 11-26-2022 Chronic Cancer of bronchus; lung (20 sources) Malignant neoplasm of right upper lobe of lung; Translations: [Malignant neoplasm of upper lobe, right bronchus or lung] Onset: 10-23-2023 09-04-2023 Chronic Cancer of bronchus; lung (2 sources) History of malignant neoplasm of thoracic cavity structure; Translations: [Personal history of other malignant neoplasm of bronchus and lung] 10-04-2023 Episodic Chronic kidney disease (20 sources) Chronic kidney disease stage 3A ; Translations: [Stage 3a chronic kidney disease (HCC)] Onset: 05-02-2024 04-10-2024 Chronic Chronic kidney disease (1 source) Chronic kidney disease; Translations: [Stage 3a chronic kidney disease (HCC)] Onset: 04-11-2024 Diseases of mouth; excluding dental (1 source) Painful mouth; Translations: [Other lesions of oral mucosa] 01-18-2024 Episodic Diseases of white blood cells (20 sources) Leukocytosis; Translations: [Elevated white blood cell count, unspecified] Onset: 03-18-2024 03-18-2024 Chronic Disorders of lipid metabolism (20 sources) Mixed hyperlipidemia; Translations: [Mixed hyperlipidemia] Onset: 07-10-2005 04-01-2018 Chronic Esophageal disorders (20 sources) Barretts esophagus with dysplasia; Translations: [Milton's esophagus with dysplasia, unspecified] Onset: 11-28-2021 Chronic Esophageal disorders (1 source) Esophageal disorders; Translations: [Gastroesophageal reflux disease with esophagitis, unspecified whether hemorrhage] Onset: 03-18-2024 Malaise and fatigue (1 source) Fatigue; Translations: [Other fatigue] Episodic Nonspecific chest pain (5 sources) Chest discomfort; Translations: [Other chest pain] Onset: 06-02-2024 06-04-2024 Episodic Other and unspecified benign neoplasm (2 sources) Adenomyomatosis of gallbladder; Translations: [Benign neoplasm of extrahepatic bile ducts] 06-20-2024 Episodic Other circulatory disease (1 source) Low blood pressure; Translations: [Hypotension, unspecified] 08-11-2024 Episodic Other circulatory disease (1 source) Hypotension, unspecified; Translations: [Hypotension, unspecified hypotension type] Onset: 08-11-2024 Episodic Other endocrine disorders (1 source) Unspecified adrenocortical insufficiency; Translations: [Hypoadrenalism (HCC)] Onset: 09-11-2024 Chronic Other inflammatory condition of skin (20 sources) Cutaneous lupus erythematosus; Translations: [Other local lupus erythematosus] Onset: 02-18-2018 02-18-2018 Chronic Other inflammatory condition of skin (1 source) Discoid lupus erythematosus; Translations: [Discoid lupus erythematosus] 10-17-2022 Chronic Other liver diseases (20 sources) Primary biliary cholangitis; Translations: [Primary biliary cirrhosis] Chronic Other liver diseases (1 source) Primary biliary cirrhosis; Translations: [Primary biliary cirrhosis (HCC)] Onset: 04-01-2024 Chronic Other lower respiratory disease (20 sources) Interstitial lung disease; Translations: [Interstitial pulmonary disease, unspecified] Onset: 09-25-2022 Chronic Other lower respiratory disease (1 source) Diffuse interstitial pulmonary fibrosis; Translations: [Idiopathic pulmonary fibrosis] Chronic Other lower respiratory disease (1 source) Interstitial pulmonary disease, unspecified; Translations: [Interstitial lung disease (HCC)] Onset: 04-01-2024 Chronic Other lower respiratory disease (2 sources) Chronic cough; Translations: [Chronic cough] Episodic Other lower respiratory disease (2 sources) Wheezing; Translations: [Wheezing] Episodic Other lower respiratory disease (1 source) Snoring; Translations: [Snoring] 07-05-2023 Episodic Other lower respiratory disease (1 source) Disorder of lung; Translations: [Other disorders of lung] 07-05-2023 Episodic Other lower respiratory disease (1 source) Dyspnea; Translations: [Shortness of breath] 08-06-2024 Episodic Other lower respiratory disease (1 source) Cough; Translations: [Cough, unspecified type] 08-06-2024 Episodic Other lower respiratory disease (4 sources) Dyspnea on exertion; Translations: [Other forms of dyspnea] 09-03-2024 Episodic Other lower respiratory disease (1 source) Apnea; Translations: [Apnea, not elsewhere classified] 09-03-2024 Episodic Other lower respiratory disease (2 sources) Apnea, not elsewhere classified; Translations: [Apnea, not elsewhere classified] Onset: 09-03-2024 Episodic Other lower respiratory disease (1 source) Other forms of dyspnea; Translations: [Exertional dyspnea] Onset: 09-03-2024 Episodic Other non-traumatic joint disorders (1 source) Pain in right knee; Translations: [Pain in joint, lower leg] 09-25-2022 Episodic Other nutritional; endocrine; and metabolic disorders (20 sources) Obesity; Translations: [Obesity, unspecified] Onset: 12-07-2009 01-31-2021 Chronic Other nutritional; endocrine; and metabolic disorders (20 sources) Obese class I; Translations: [Obesity, unspecified] Onset: 10-04-2023 10-04-2023 Chronic Other nutritional; endocrine; and metabolic disorders (20 sources) Hypomagnesemia; Translations: [Hypomagnesemia] Onset: 01-18-2024 01-18-2024 Chronic Other nutritional; endocrine; and metabolic disorders (20 sources) Hypercalcemia; Translations: [Hypercalcemia] Onset: 04-01-2024 03-03-2024 Chronic Other nutritional; endocrine; and metabolic disorders (2 sources) Hypercalcemia; Translations: [Hypercalcemia] Onset: 04-01-2024 Chronic Other nutritional; endocrine; and metabolic disorders (1 source) Hypomagnesemia; Translations: [Hypomagnesemia] Onset: 01-18-2024 Chronic Other screening for suspected conditions (not mental disorders or infectious disease) (1 source) Imaging result abnormal; Translations: [Abnormal findings on diagnostic imaging of other specified body structures] 12-11-2023 Chronic Other upper respiratory disease (1 source) Other diseases of bronchus, not elsewhere classified; Translations: [Bronchiolar disease] Onset: 11-22-2023 Episodic Pleurisy; pneumothorax; pulmonary collapse (3 sources) Pleural effusion; Translations: [Pleural effusion, not elsewhere classified] Onset: 08-05-2024 07-04-2024 Episodic Residual codes; unclassified (20 sources) Obstructive sleep apnea syndrome; Translations: [Obstructive sleep apnea (adult) (pediatric)] Onset: 11-12-2023 Chronic Residual codes; unclassified (1 source) Desaturation of blood; Translations: [Idiopathic sleep related nonobstructive alveolar hypoventilation] Chronic Residual codes; unclassified (2 sources) Postmenopausal state; Translations: [Asymptomatic menopausal state] Episodic Residual codes; unclassified (1 source) Past history of procedure; Translations: [Personal history of other medical treatment] 03-11-2024 Episodic Residual codes; unclassified (2 sources) Edema; Translations: [Edema, unspecified] 09-18-2024 Episodic Residual codes; unclassified (1 source) Edema, unspecified; Translations: [Edema, unspecified type] Onset: 09-18-2024 Episodic Screening and history of mental health and substance abuse codes (20 sources) Former light tobacco smoker; Translations: [Personal history of nicotine dependence] Onset: 11-12-2023 11-11-2023 Episodic Systemic lupus erythematosus and connective tissue disorders (20 sources) Lupus disease of the lung; Translations: [Lung involvement in systemic lupus erythematosus] Onset: 11-03-2022 Chronic Thyroid disorders (6 sources) Acquired hypothyroidism; Translations: [Hypothyroidism, unspecified] Onset: 06-10-2024 04-10-2024 Chronic Unclassified (1 source) OPENED IN ERROR 12-11-2023 Unclassified (1 source) Pre-Op Exam Onset: 03-18-2024 Unclassified (1 source) Established Patient Onset: 09-11-2024 Unclassified (1 source) Obesity, Class I, BMI 30-34.9; Translations: [Obesity, Class I, BMI 30-34.9] Onset: 10-04-2023 Viral infection (2 sources) Disease caused by 2019-nCoV; Translations: [COVID-19] Episodic Past or Other Problems Problem Classification Problem Date Documented Date Episodic/Chronic Acute and unspecified renal failure (20 sources) Acute renal failure syndrome; Translations: [Acute kidney failure, unspecified] Onset: 5 03-03-2024 Episodic Allergic reactions (20 sources) Eczema; Translations: [Dermatitis, unspecified] Onset: 1 Resolved: 3 12-07-2010 Episodic Biliary tract disease (20 sources) Polyp of gallbladder; Translations: [Cholesterolosis of gallbladder] Onset: 3 01-09-2023 Episodic Coagulation and hemorrhagic disorders (20 sources) Platelet count below reference range; Translations: [Thrombocytopenia, unspecified] Onset: 8 Resolved: 3 02-18-2018 Chronic Deficiency and other anemia (20 sources) Anemia; Translations: [Anemia, unspecified] Onset: 5 03-18-2024 Episodic Deficiency and other anemia (2 sources) Anemia, unspecified; Translations: [Anemia, unspecified type] Onset: 5 Episodic Immunizations and screening for infectious disease (20 sources) Anti-nuclear factor positive; Translations: [Other specified abnormal immunological findings in serum] Onset: 8 Resolved: 3 06-18-2017 Episodic Lymphadenitis (20 sources) Mediastinal lymphadenopathy; Translations: [Localized enlarged lymph nodes] Onset: 4 07-20-2023 Episodic Other hematologic conditions (20 sources) ESR raised; Translations: [Elevated erythrocyte sedimentation rate] Onset: 8 Resolved: 3 06-18-2017 Episodic Other inflammatory condition of skin (20 sources) Pruritus, unspecified; Translations: [Unspecified pruritic disorder] Onset: 1 Resolved: 7 06-13-2016 Episodic Other injuries and conditions due to external causes (20 sources) Excoriation of skin; Translations: [Other injury of unspecified body region, initial encounter] Onset: 1 Resolved: 7 06-13-2016 Episodic Other lower respiratory disease (20 sources) Nodule of lung; Translations: [Solitary pulmonary nodule] Onset: 7 11-20-2019 Episodic Other lower respiratory disease (1 source) Solitary pulmonary nodule; Translations: [Lung nodule] Onset: 5 Episodic Other nervous system disorders (20 sources) Acute postoperative pain; Translations: [Other acute postprocedural pain] Onset: 5 05-02-2024 Episodic Other non-traumatic joint disorders (2 sources) Pain in right shoulder; Translations: [Pain in joint, shoulder region] Onset: 5 06-04-2024 Episodic Other screening for suspected conditions (not mental disorders or infectious disease) (20 sources) Patient encounter status; Translations: [Encounter for screening mammogram for malignant neoplasm of breast] Onset: 4 Episodic Other skin disorders (20 sources) Melanosis; Translations: [Other melanin hyperpigmentation] Onset: 8 06-18-2017 Episodic Other skin disorders (20 sources) Asteatosis cutis; Translations: [Xerosis cutis] Onset: 1 Resolved: 7 06-13-2016 Episodic Sprains and strains (20 sources) Traumatic rupture of rotator cuff; Translations: [Strain of muscle(s) and tendon(s) of the rotator cuff of left shoulder, initial encounter] Onset: 9 05-16-2018 Episodic Substance-related disorders (20 sources) Tobacco user; Translations: [Nicotine dependence, unspecified, uncomplicated] Onset: 6 Resolved: 7 06-13-2016 Chronic Unclassified (2 sources) Elevated LFTs 04-27-2024 Urinary tract infections (20 sources) Acute tubulointerstitial nephritis; Translations: [Acute pyelonephritis] Onset: 5 03-12-2024 Episodic Results Test Name Value Interpretation Reference Range Facility US DVT LOWER BILon 5 US DVT LOWER ARMANDO Normal [facility] Lower extremity vein - bi lateralon 09-18-2024 IMPRESSION: Negative study for proximal DVT in the left and right lower extremities. Negative study for calf DVT in the left and right lower extremities. Negative study for superficial thrombophlebitis in the imaged segments of the left and right lower extremities. Acute Care Nurse: PSCB Transcribe Date/Time: Sep 18 2024 4:14P Dictated by : LINDSEY MINA MD This examination was interpreted and the report reviewed and electronically signed by: LINDSEY MINA MD on Sep 18 2024 4:15PM [facility] DIVISION OF RADIOLOGY * * *Final Report* * * DATE OF EXAM: Sep 18 2024 11:41AM WRU 1005 - US DVT LOWER ARMANDO / PROCEDURE REASON: Edema, unspecified type * * * * Physician Interpretation * * * * EXAMINATION: RIGHT AND LEFT LOWER EXTREMITY DEEP VENOUS ULTRASOUND WITH DOPPLER IMAGING CLINICAL HISTORY: Lower extremity edema TECHNIQUE: Grayscale with compression maneuvers, color Doppler and spectral Doppler imaging of the right and left proximal deep veins was performed. Grayscale with compression maneuvers of the right and left peroneal and posterior tibial veins was performed. The right and left great and small saphenous veins were evaluated at their insertion to the deep system. Images were obtained and stored in a permanent archive. MQ: [email or web address]_1 COMPARISON: None RESULT: RIGHT LOWER EXTREMITY PROXIMAL DEEP VEINS Distal External Iliac, Common Femoral and Proximal Profunda Veins: Compression: Normal Doppler: Normal, spontaneous respirophasic flow. Normal response to augmentation. Femoral vein: Compression: Normal Doppler: Normal, spontaneous respirophasic flow. Normal response to augmentation. Popliteal vein: Compression: Normal Doppler: Normal, spontaneous respirophasic flow. Normal response to augmentation. CALF DEEP VEINS Peroneal veins: Normal compression. Posterior tibial veins: Normal compression. Gastrocnemius and Soleal veins: Not imaged. SUPERFICIAL VEINS Great saphenous: Patent and compressible at insertion into common femoral vein; not otherwise assessed. Small Saphenous: Patent and compressible in the proximal calf, not otherwise assessed. LEFT LOWER EXTREMITY PROXIMAL DEEP VEINS Distal External Iliac, Common Femoral and Proximal Profunda Veins: Compression: Normal Doppler: Normal, spontaneous respirophasic flow. Normal response to augmentation. Femoral vein: Compression: Normal Doppler: Normal, spontaneous respirophasic flow. Normal response to augmentation. Popliteal vein: Compression: Normal Doppler: Normal, spontaneous respirophasic flow. Normal response to augmentation. CALF DEEP VEINS Peroneal veins: Normal compression. Posterior tibial veins: Normal compression. Gastrocnemius and Soleal veins: Not imaged. SUPERFICIAL VEINS Great saphenous: Patent and compressible at insertion into common femoral vein; not otherwise assessed. Small Saphenous: Patent and compressible in the proximal calf, not otherwise assessed. DIVISION OF RADIOLOGY Provider, [facility] - 09/18/2024 * * *Final Report* * * DATE OF EXAM: Sep 18 2024 11:41AM WRU 1005 - US DVT LOWER ARMANDO / PROCEDURE REASON: Edema, unspecified type * * * * Physician Interpretation * * * * EXAMINATION: RIGHT AND LEFT LOWER EXTREMITY DEEP VENOUS ULTRASOUND WITH DOPPLER IMAGING CLINICAL HISTORY: Lower extremity edema TECHNIQUE: Grayscale with compression maneuvers, color Doppler and spectral Doppler imaging of the right and left proximal deep veins was performed. Grayscale with compression maneuvers of the right and left peroneal and posterior tibial veins was performed. The right and left great and small saphenous veins were evaluated at their insertion to the deep system. Images were obtained and stored in a permanent archive. MQ: [email or web address]_1 COMPARISON: None RESULT: RIGHT LOWER EXTREMITY PROXIMAL DEEP VEINS Distal External Iliac, Common Femoral and Proximal Profunda Veins: Compression: Normal Doppler: Normal, spontaneous respirophasic flow. Normal response to augmentation. Femoral vein: Compression: Normal Doppler: Normal, spontaneous respirophasic flow. Normal response to augmentation. Popliteal vein: Compression: Normal Doppler: Normal, spontaneous respirophasic flow. Normal response to augmentation. CALF DEEP VEINS Peroneal veins: Normal compression. Posterior tibial veins: Normal compression. Gastrocnemius and Soleal veins: Not imaged. SUPERFICIAL VEINS Great saphenous: Patent and compressible at insertion into common femoral vein; not otherwise assessed. Small Saphenous: Patent and compressible in the proximal calf, not otherwise assessed. LEFT LOWER EXTREMITY PROXIMAL DEEP VEINS Distal External Iliac, Common Femoral and Proximal Profunda Veins: Compression: Normal Doppler: Normal, spontaneous respirophasic flow. Normal response to augmentation. Femoral vein: Compression: Normal Doppler: Normal, spontaneous respirophasic flow. Normal response to augmentation. Popliteal vein: Compression: Normal Doppler: Normal, spontaneous respirophasic flow. Normal response to augmentation. CALF DEEP VEINS Peroneal veins: Normal compression. Posterior tibial veins: Normal compression. Gastrocnemius and Soleal veins: Not imaged. SUPERFICIAL VEINS Great saphenous: Patent and compressible at insertion into common femoral vein; not otherwise assessed. Small Saphenous: Patent and compressible in the proximal calf, not otherwise assessed. IMPRESSION IMPRESSION: Negative study for proximal DVT in the left and right lower extremities. Negative study for calf DVT in the left and right lower extremities. Negative study for superficial thrombophlebitis in the imaged segments of the left and right lower extremities. Acute Care Nurse: PSCB Transcribe Date/Time: Sep 18 2024 4:14P Dictated by : LINDSEY MINA MD This examination was interpreted and the report reviewed and electronically signed by: LINDSEY MINA MD on Sep 18 2024 4:15PM EST [facility] Radiology Study observation (narrative) [facility] US Lower extremity vein - bi lateralOrdered By: Ccf Provider on 09-18-2024 [facility] C3 COMPLEMENTon 09-15-2024 Complement C3 [Mass/Vol] 138 mg/dL 86 - 166 mg/dL [facility] C3 SerPl-mCncon 09-15-2024 Complement C3 [Mass/Vol] 138 mg/dL Normal 86-166 [facility] Comment on above: Order Comment: Speci men Type: BLOOD SPECIMENOrdering Facility: [facility] Address: [address] [place] [address] Performed By: #### 4 485-9, 4498-2 ####[facility] LABCLIA [id number] [place] [address] [place] C4 COMPLEMENTon 09-15-2024 Complement C4 [Mass/Vol] 24 mg/dL 13 - 46 mg/dL [facility] C4 SerPl-mCncon 09-15-2024 Complement C4 [Mass/Vol] 24 mg/dL Normal 13-46 [facility] Comment on above: Order Comment: Speci men Type: BLOOD SPECIMENOrdering Facility: [facility] Address: [address] [place] [address] Performed By: #### 4 485-9, 4498-2 ####[facility] LABCLIA [id number] [place] [address] [place] CNOVon 09-15-2024 CNOV Normal [facility] DNA ANTIBODY DS BLDon 2024 DNA ANTIBODY 51 IU/mL Normal <=200 [facility] Comment on above: Order Comment: Speci men Type: BLOOD SPECIMENOrdering Facility: [facility] Address: [address] [place] [address] Result Comment: Nega tive: <200 IU/mLEquivocal: 201-300 IU/mLModerate Positive: 301-800 IU/mLStrong Positive: >801 IU/mL Performed By: #### D NAAB ####[facility] LABCLIA [id number] [place] [address] [place] DNA ANTIBODY QUALITATIVE INTERPRETATION Negative Normal Negative [facility] Comment on above: Order Comment: Speci men Type: BLOOD SPECIMENOrdering Facility: [facility] Address: [address] [place] [address] Performed By: #### D NAAB ####[facility] LABCLIA [id number] [address] [place] MISC SEND OUT TST 1on 2024 MISC SCAN TEST RESULTS 1 Normal [facility] Comment on above: Order Comment: Speci men Type: BLOOD SPECIMENOrdering Facility: [facility] Address: [address] [place] [address] Result Comment: Rese arch REFERRAL LAB 1 (DROP-DOWN) Normal [facility] Comment on above: Order Comment: Speci men Type: BLOOD SPECIMENOrdering Facility: [facility] Address: [address] [place] [address] Result Comment: Rese arch TEST 1 Normal [facility] Comment on above: Order Comment: Speci men Type: BLOOD SPECIMENOrdering Facility: [facility] Address: [address] [place] [address] Result Comment: Rese arch No Panel Informationon 09-15 Interpretation and review of laboratory results Normal [facility] Prot/Creat Uron 09-15-2024 Protein/Creatinine (U) [Mass ratio] mg/g High <0.15 [facility] Comment on above: Order Comment: Speci men Type: URINE SPECIMENOrdering Facility: [facility] Address: [address] [place] [address] Result Comment: Adul t Proteinuria Categories:<0.15 mg/mg is considered normal to mildly increased0.15 - 0.50 mg/mg is considered moderately increased>0.50 mg/mg is considered severely increasedKDIGO. (2013). KDIGO 2012 Clinical Practice Guideline for the Evaluation and Management of Chronic Kidney Disease. Official Journal of the International Society of Nephrology, 3(1), 1-150. Performed By: #### 2 890-2 ####[facility] LABCLIA [id number] [place] [id number] Protein/Creatinine (U) [Mass ratio]on 09-15-2024 Creatinine (U) [Mass/Vol] 19.8 mg/dL Low 20.0-300.0 [facility] Comment on above: Order Comment: Speci men Type: URINE SPECIMENOrdering Facility: [facility] Address: [address] [place] [address] Performed By: #### 2 890-2 ####[facility] LABIA [id number] [address] Protein (U) [Mass/Vol] mg/dL Normal 0-20 [facility] Comment on above: Order Comment: Speci men Type: URINE SPECIMENOrdering Facility: [facility] Address: [address] [place] [address] Performed By: #### 2 890-2 ####[facility] LABIA [id number] [address] Urinalysis complete panel (U )on 09-15-2024 Bacteria LM.HPF (Urine sed) [#/Area] Negative Negative /HPF [facility] Bilirubin Ql (U) Negative Negative [facility] Clarity (Unsp spec) Clear Clear [facility] Color (U) Yellow Yellow [facility] Epithelial cells LM.HPF (Urine sed) [#/Area] None Seen /HPF [facility] Glucose Test strip (U) [Mass/Vol] Negative Negative [facility] Hemoglobin Ql (U) Negative Negative [facility] Hyaline casts (Urine sed) [#/Area] 0 /[LPF] 0 /LPF [facility] Interpretation and review of laboratory results Abnormal [facility] Ketones Ql (U) Negative Negative [facility] Leukocyte esterase Test strip Ql (U) Trace Abnormal Negative [facility] Nitrite Ql (U) Negative Negative [facility] pH (U) 6.0 [pH] 5.0 - 8.0 [facility] Protein (U) [Mass/Vol] Negative Negative [facility] RBC LM.HPF (Urine sed) [#/Area] 0-2 /HPF 0-2 /HPF [facility] Specific gravity (U) [Rel density] 1.006 1.005 - 1.030 [facility] Urobilinogen Ql (U) 0.2 EU/dL 0.2-1.0 EU/dL [facility] WBC LM.HPF (Urine sed) [#/Area] 0-5 /HPF 0-5 /HPF [facility] This test was develo ped and its performance characteristics determined by [facility]'s [facility] [place] ([facility]). It has not been cleared or approved by the FDA. [facility] is regulated under CLIA as qualified to perform high-complexity testing. This test is used for clinical purposes. It should not be regarded as investigational or for research. [facility] Bacteria LM.HPF (Urine sed) [#/Area] Negative Normal Negative [facility] Comment on above: Order Comment: Speci men Type: URINE SPECIMENOrdering Facility: [facility] Address: [address] [place] [address] Performed By: #### 2 4356-8 ####[facility] LABIA [id number] [place] [address] [place] Bilirubin Ql (U) Negative Normal Negative [facility] Comment on above: Order Comment: Speci men Type: URINE SPECIMENOrdering Facility: [facility] Address: [address] [place] [address] Performed By: #### 2 4356-8 ####[facility] LABIA [id number] [place] [address] [place] Clarity (Unsp spec) Clear Normal Clear [facility] Comment on above: Order Comment: Speci men Type: URINE SPECIMENOrdering Facility: [facility] Address: [address] [place] [address] Performed By: #### 2 4356-8 ####[facility] LABCLIA [id number] [place] [address] [place] Color (U) Yellow Normal Yellow [facility] Comment on above: Order Comment: Speci men Type: URINE SPECIMENOrdering Facility: [facility] Address: [address] [place] [address] Performed By: #### 2 4356-8 ####[facility] LABCLIA [id number] [address] Epithelial cells LM.HPF (Urine sed) [#/Area] None Seen Normal [facility] Comment on above: Order Comment: Speci men Type: URINE SPECIMENOrdering Facility: [facility] Address: [address] [place] [address] Performed By: #### 2 4356-8 ####[facility] LABCLIA [id number] [address] Glucose Test strip (U) [Mass/Vol] Negative Normal Negative [facility] Comment on above: Order Comment: Speci men Type: URINE SPECIMENOrdering Facility: [facility] Address: [address] [place] [address] Performed By: #### 2 4356-8 ####[facility] LABCLIA [id number] [place] [address] [place] Hemoglobin Ql (U) Negative Normal Negative [facility] Comment on above: Order Comment: Speci men Type: URINE SPECIMENOrdering Facility: [facility] Address: [address] [place] [address] Performed By: #### 2 4356-8 ####[facility] LABCLIA [id number] [address] [place] Hyaline casts (Urine sed) [#/Area] 0 /[LPF] Normal 0 /LPF [facility] Comment on above: Order Comment: Speci men Type: URINE SPECIMENOrdering Facility: [facility] Address: [address] [place] [address] Performed By: #### 2 4356-8 ####[facility] LABCLIA [id number] [place] [id number] [place] Ketones Ql (U) Negative Normal Negative [facility] Comment on above: Order Comment: Speci men Type: URINE SPECIMENOrdering Facility: [facility] Address: [address] [place] [address] Performed By: #### 2 4356-8 ####[facility] LABCLIA [id number] [place] [id number] [place] Leukocyte esterase Test strip Ql (U) Trace Abnormal Negative [facility] Comment on above: Order Comment: Speci men Type: URINE SPECIMENOrdering Facility: [facility] Address: [address] [place] [address] Performed By: #### 2 4356-8 ####[facility] LABCLIA [id number] [place] [address] [place] Nitrite Ql (U) Negative Normal Negative [facility] Comment on above: Order Comment: Speci men Type: URINE SPECIMENOrdering Facility: [facility] Address: [address] [place] [address] Performed By: #### 2 4356-8 ####[facility] LABCLIA [id number] [place] [address] [place] pH (U) 6.0 [pH] Normal 5.0-8.0 [facility] Comment on above: Order Comment: Speci men Type: URINE SPECIMENOrdering Facility: [facility] Address: [address] [place] [address] Performed By: #### 2 4356-8 ####[facility] LABCLIA [id number] [place] [id number] [place] Protein (U) [Mass/Vol] Negative Normal Negative [facility] Comment on above: Order Comment: Speci men Type: URINE SPECIMENOrdering Facility: [facility] Address: [address] [place] [address] Performed By: #### 2 4356-8 ####[facility] LABCLIA [id number] [place] [address] [place] RBC LM.HPF (Urine sed) [#/Area] 0-2 /HPF Normal 0-2 /HPF [facility] Comment on above: Order Comment: Speci men Type: URINE SPECIMENOrdering Facility: [facility] Address: [address] [place] [address] Performed By: #### 2 4356-8 ####[facility] LABIA [id number] [place] [address] [place] Specific gravity (U) [Rel density] 1.006 Normal 1.005-1.030 [facility] Comment on above: Order Comment: Speci men Type: URINE SPECIMENOrdering Facility: [facility] [facility] Address: [address] [place] [address] Performed By: #### 2 4356-8 ####[facility] CENTERIA [id number] [address] [place] Urobilinogen Ql (U) 0.2 EU/dL Normal 0.2-1.0 EU/dL [facility] Comment on above: Order Comment: Speci men Type: URINE SPECIMENOrdering Facility: [facility] Address: [address] [place] [address] Performed By: #### 2 4356-8 ####[facility] CENTERIA [id number] [place] [address] [place] WBC LM.HPF (Urine sed) [#/Area] 0-5 /HPF Normal 0-5 /HPF [facility] Comment on above: Order Comment: Speci men Type: URINE SPECIMENOrdering Facility: [facility] Address: [address] [place] [address] Performed By: #### 2 4356-8 ####[facility] LABIA [id number] [place] [address] [place] 25(OH)D3 [facility]jared 08-07- 2025 25-hydroxyvitamin D3 [Mass/Vol] 48.7 ng/mL Normal 31.0-80.0 [facility] Comment on above: Order Comment: Speci men Type: BLOOD SPECIMENOrdering Facility: [facility] Address: [address] [place] [address] Performed By: #### 1 989-3 ####[facility] LABCLIA [id number] [place] [address] [place] CBC W Auto Differential pane l (Bld)on 09-11-2024 Basophils (Bld) [#/Vol] 0.04 10*3/uL Normal <0.11 [facility] Comment on above: Order Comment: Speci men Type: BLOOD SPECIMENOrdering Facility: [facility] Address: [address] [place] [address] Performed By: #### 5 7021-8 ####[facility] ERA [id number] [place] [address] [place] Basophils/100 WBC (Bld) 0.5 % Normal [facility] Comment on above: Order Comment: Speci men Type: BLOOD SPECIMENOrdering Facility: [facility] Address: [address] [place] [address] Performed By: #### 5 7021-8 ####[facility]PITALLIA [id number] [place] [address] [place] Differential cell count method Nom (Bld) Auto Normal [facility] Comment on above: Order Comment: Speci men Type: BLOOD SPECIMENOrdering Facility: [facility] Address: [address] [place] [address] Performed By: #### 5 7021-8 ####[facility] HOSPITALNCLIA [id number] [place] [address] [place] Eosinophils (Bld) [#/Vol] 0.17 10*3/uL Normal <0.46 [facility] Comment on above: Order Comment: Speci men Type: BLOOD SPECIMENOrdering Facility: [facility] Address: [address] [place] [address] Performed By: #### 5 7021-8 ####[facility] ERINN [id number] [place] [address] [place] Eosinophils/100 WBC (Bld) 2.3 % Normal [facility] Comment on above: Order Comment: Speci men Type: BLOOD SPECIMENOrdering Facility: [facility] Address: [address] [place] [address] Performed By: #### 5 7021-8 ####[facility] DAVISFARMVILLENCTHIAGOIzabella [id number] [place] [address] [place] Erythrocyte distribution width (RBC) [Ratio] 12.5 % Normal 11.5-15.0 [facility] Comment on above: Order Comment: Speci men Type: BLOOD SPECIMENOrdering Facility: [facility] Address: [address] [place] [address] Performed By: #### 5 7021-8 ####[facility] HOSPITALNCTHIAGOA [id number] [place] [address] [place] Hematocrit (Bld) [Volume fraction] 30.4 % Low 36.0-46.0 [facility] Comment on above: Order Comment: Speci men Type: BLOOD SPECIMENOrdering Facility: [facility] Address: [address] [place] [address] Performed By: #### 5 7021-8 ####[facility] HOSPITALNCLIA [id number] [place] [address] [place] Hemoglobin (Bld) [Mass/Vol] 10.4 g/dL Low 11.5-15.5 [facility] Comment on above: Order Comment: Speci men Type: BLOOD SPECIMENOrdering Facility: [facility] Address: [address] [place] [address] Performed By: #### 5 7021-8 ####[facility] MILLWNCLIA [id number] [place] [address] [place] Immature granulocytes (Bld) [#/Vol] 0.04 10*3/uL Normal <0.10 [facility] Comment on above: Order Comment: Speci men Type: BLOOD SPECIMENOrdering Facility: [facility] Address: [address] [place] [address] Performed By: #### 5 7021-8 ####[facility] HOSPITALLIA [id number] [place] [address] [place] Immature granulocytes/100 WBC (Bld) 0.5 % Normal [facility] Comment on above: Order Comment: Speci men Type: BLOOD SPECIMENOrdering Facility: [facility] Address: [address] [place] [address] Performed By: #### 5 7021-8 ####[facility] [id number] [place] [address] [place] Lymphocytes (Bld) [#/Vol] 1.10 10*3/uL Normal 1.00-4.00 [facility] Comment on above: Order Comment: Speci men Type: BLOOD SPECIMENOrdering Facility: [facility] Address: [address] [place] [address] Performed By: #### 5 7021-8 ####[facility] ERA [id number] [place] [address] [place] Lymphocytes/100 WBC (Bld) 14.9 % Normal [facility] Comment on above: Order Comment: Speci men Type: BLOOD SPECIMENOrdering Facility: [facility] Address: [address] [place] [address] Performed By: #### 5 7021-8 ####[facility]OSPITALNCUNIVERSITY [facility] [id number] [place] [address] [place] MCH (RBC) [Entitic mass] 30.9 pg Normal 26.0-34.0 [facility] Comment on above: Order Comment: Speci men Type: BLOOD SPECIMENOrdering Facility: [facility] Address: [address] [place] [address] Performed By: #### 5 7021-8 ####[facility] HOSPITALNCUNIVERSITY [facility] [id number] [place] [address] [place] MCHC (RBC) [Mass/Vol] 34.2 g/dL Normal 30.5-36.0 [facility] Comment on above: Order Comment: Speci men Type: BLOOD SPECIMENOrdering Facility: [facility] Address: [address] [place], [place] [address] Performed By: #### 5 7021-8 ####[facility] [id number] [place] [address] [place] MCV (RBC) [Entitic vol] 90.2 fL Normal 80.0-100.0 [facility] Comment on above: Order Comment: Speci men Type: BLOOD SPECIMENOrdering Facility: [facility] Address: [address] [place], [place] [address] Performed By: #### 5 7021-8 ####[facility] [id number] [place] [address] [place] Monocytes (Bld) [#/Vol] 0.71 10*3/uL Normal <0.87 [facility] Comment on above: Order Comment: Speci men Type: BLOOD SPECIMENOrdering Facility: [facility] Address: [address] [place] [address] Performed By: #### 5 7021-8 ####[facility] [id number] [place] [address] [place] Monocytes/100 WBC (Bld) 9.6 % Normal [facility] Comment on above: Order Comment: Speci men Type: BLOOD SPECIMENOrdering Facility: [facility] Address: [address] [place] [address] Performed By: #### 5 7021-8 ####[facility] DAVISWNCLIA [id number] [place] [address] [place] Neutrophils (Bld) [#/Vol] 5.30 10*3/uL Normal 1.45-7.50 [facility] Comment on above: Order Comment: Speci men Type: BLOOD SPECIMENOrdering Facility: [facility] Address: [address] [place] [address] Performed By: #### 5 7021-8 ####[facility] HOSPITALWNCLIA [id number] [place] [address] [place] Neutrophils/100 WBC (Bld) 72.2 % Normal [facility] Comment on above: Order Comment: Speci men Type: BLOOD SPECIMENOrdering Facility: [facility] Address: [address] [place] [address] Performed By: #### 5 7021-8 ####[facility] HOSPITALNCLIA [id number] [place] [address] [place] Nucleated RBC (Bld) [#/Vol] 10*3/uL Normal <0.01 [facility] Comment on above: Order Comment: Speci men Type: BLOOD SPECIMENOrdering Facility: [facility] Address: [address] [place] [address] Performed By: #### 5 7021-8 ####[facility] MILLWNCLIA [id number] [place] [address] [place] Nucleated RBC/100 WBC (Bld) [Ratio] 0.0 /100 WBC Normal [facility] Comment on above: Order Comment: Speci men Type: BLOOD SPECIMENOrdering Facility: [facility] Address: [address] [place] [address] Performed By: #### 5 7021-8 ####[facility] HOSPITALLIA [id number] [place] [address] [place] Platelet mean volume (Bld) [Entitic vol] 9.3 fL Normal 9.0-12.7 [facility] Comment on above: Order Comment: Speci men Type: BLOOD SPECIMENOrdering Facility: [facility] Address: [address] [place] [address] Performed By: #### 5 7021-8 ####[facility] DAVISHORTENSIALIA [id number] [place] [address] [place] Platelets (Bld) [#/Vol] 206 10*3/uL Normal 150-400 [facility] Comment on above: Order Comment: Speci men Type: BLOOD SPECIMENOrdering Facility: [facility] Address: [address] [place] [address] Performed By: #### 5 7021-8 ####[facility] HOSPITALLALILIA [id number] [place] [address] [place] RBC (Bld) [#/Vol] 3.37 10*6/uL Low 3.90-5.20 [facility] Comment on above: Order Comment: Speci men Type: BLOOD SPECIMENOrdering Facility: [facility] Address: [address] [place] [address] Performed By: #### 5 7021-8 ####[facility] HOSPITALLALILIA [id number] [place] [address] [place] WBC (Bld) [#/Vol] 7.36 10*3/uL Normal 3.70-11.00 [facility] Comment on above: Order Comment: Speci men Type: BLOOD SPECIMENOrdering Facility: [facility] Address: [address] [place] [address] Performed By: #### 5 7021-8 ####[facility] HOSPITALNCLIA [id number] [place] [address] [place] CNOVSPon 09-11-2024 CNOVSP Normal [facility] Comprehensive metabolic 2000 panelon 09-11-2024 Albumin [Mass/Vol] 4.1 g/dL Normal 3.9-4.9 [facility] Comment on above: Order Comment: Speci men Type: BLOOD SPECIMENOrdering Facility: [facility] Address: [address] [place] [address] Performed By: #### 2 4323-8, ####[facility] MILLTOWLALILIA [id number] [place] [address] [place] ALP [Catalytic activity/Vol] 155 U/L High 34-123 [facility] Comment on above: Order Comment: Speci men Type: BLOOD SPECIMENOrdering Facility: [facility] Address: [address] [place] [address] Performed By: #### 2 4323-8, ####[facility] MILLFARMVILLENCLIA [id number] [place] [address] [place] ALT [Catalytic activity/Vol] 16 U/L Normal 7-38 [facility] Comment on above: Order Comment: Speci men Type: BLOOD SPECIMENOrdering Facility: [facility] Address: [address] [place] [address] Performed By: #### 2 4323-8, ####[facility] HOSPITALWNCLIA [id number] [place] [address] [place] Anion gap [Moles/Vol] 11 mmol/L Normal 8-15 [facility] Comment on above: Order Comment: Speci men Type: BLOOD SPECIMENOrdering Facility: [facility] Address: [address] [place] [address] Performed By: #### 2 4323-8, ####[facility] HOSPITALNCLIA [id number] [place] [address] [place] AST [Catalytic activity/Vol] 21 U/L Normal 13-35 [facility] Comment on above: Order Comment: Speci men Type: BLOOD SPECIMENOrdering Facility: [facility] Address: [address] [place] [address] Performed By: #### 2 4323-8, ####[facility] MILLTOWNCLIA [id number] [place] [address] [place] Bilirubin [Mass/Vol] 0.4 mg/dL Normal 0.2-1.3 [facility] Comment on above: Order Comment: Speci men Type: BLOOD SPECIMENOrdering Facility: [facility] Address: [address] [place] [address] Performed By: #### 2 4323-8, ####[facility] MILLTOWNCLIA [id number] [place] [address] [place] Calcium [Mass/Vol] 9.5 mg/dL Normal 8.5-10.2 [facility] Comment on above: Order Comment: Speci men Type: BLOOD SPECIMENOrdering Facility: [facility] Address: [address] [place] [address] Performed By: #### 2 4323-8, ####[facility] HOSPITALWNCLIA [id number] [place] [address] [place] Chloride [Moles/Vol] 105 mmol/L Normal 98-107 [facility] Comment on above: Order Comment: Speci men Type: BLOOD SPECIMENOrdering Facility: [facility] Address: [address] [place] [address] Performed By: #### 2 4323-8, ####[facility] MILLTOWNCLIA [id number] [place] [address] [place] CO2 [Moles/Vol] 20 mmol/L Low 22-30 [facility] Comment on above: Order Comment: Speci men Type: BLOOD SPECIMENOrdering Facility: [facility] Address: [address] [place] [address] Performed By: #### 2 4323-8, ####[facility] DAVISWNCLIA [id number] [place] [address] [place] Creatinine [Mass/Vol] 0.94 mg/dL Normal 0.58-0.96 [facility] Comment on above: Order Comment: Speci men Type: BLOOD SPECIMENOrdering Facility: [facility] Address: [address] [place] [address] Performed By: #### 2 4323-8, ####[facility] HOSPITALNCLIA [id number] [place] [address] [place] eGFRcr SerPlBld CKD-EPI 2020 68 mL/min/1.73m??? Normal >=60 [facility] Comment on above: Order Comment: Speci men Type: BLOOD SPECIMENOrdering Facility: [facility] Address: [address] [place] [address] Result Comment: Ann mated Glomerular Filtration Rate (eGFR) is calculated using the 2020 CKD-EPI creatinine equation. This equation utilizes serum creatinine, sex, and age as parameters. The creatinine assay has traceable calibration to isotope dilution-mass spectrometry. Refer to KDIGO guidelines for clinical interpretation. In patients with unstable renal function, e.g. those with acute kidney injury, the eGFR may not accurately reflect actual GFR. Performed By: #### 2 4323-8, ####[facility] HOSPITALNCLIA [id number] [place] [address] [place] Glucose [Mass/Vol] 119 mg/dL High 74-99 [facility] Comment on above: Order Comment: Speci men Type: BLOOD SPECIMENOrdering Facility: [facility] Address: [address] [place] [address] Result Comment: The [place] [employer] (ADA) provides guidance for cutoff values for fasting glucose and random glucose. The ADA defines fasting as no caloric intake for at least 8 hours. Fasting plasma glucose results between 100 to 125 mg/dL indicate increased risk for diabetes (prediabetes).Fasting plasma glucose results greater than or equal to 126 mg/dL meet the criteria for diagnosis of diabetes. In the absence of unequivocal hyperglycemia, results should be confirmed by repeat testing. In a patient with classic symptoms of hyperglycemia or hyperglycemic crisis, random plasma glucose results greater than or equal to 200 mg/dL meet the criteria for diagnosis of diabetes.Reference: Standards of Medical Care in Diabetes 2016, [place] [employer]. Diabetes Care. 2016.39(Suppl 1). Performed By: #### 2 4323-8, 72672-4 ####[facility] CENTERCHATA [id number] [place] [address] [place] Potassium [Moles/Vol] 3.9 mmol/L Normal 3.7-5.1 [facility] Comment on above: Order Comment: Speci men Type: BLOOD SPECIMENOrdering Facility: [facility] Address: [address] [place] [address] Performed By: #### 2 4323-8, ####[facility] HOSPITALTARIQ [id number] [place] [address] [place] Protein [Mass/Vol] 7.2 g/dL Normal 6.3-8.0 [facility] Comment on above: Order Comment: Speci men Type: BLOOD SPECIMENOrdering Facility: [facility] Address: [address] [place] [address] Performed By: #### 2 4323-8, ####[facility] HOSPITALTARIQ [id number] [place] [address] [place] Sodium [Moles/Vol] 136 mmol/L Normal 136-144 [facility] Comment on above: Order Comment: Speci men Type: BLOOD SPECIMENOrdering Facility: [facility] Address: [address] [place] [address] Performed By: #### 2 4323-8, 11934-7 ####[facility] MILLTOWNCLIA [id number] [place] [address] [place] Urea nitrogen [Mass/Vol] 24 mg/dL High 7-21 [facility] Comment on above: Order Comment: Speci men Type: BLOOD SPECIMENOrdering Facility: [facility] Address: [address] [place] [address] Performed By: #### 2 4323-8, ####[facility] HOSPITALLLAILIA [id number] [place] [address] [place] Cortis SerPl-mCncon 09-12-19 Cortisol [Mass/Vol] 11.1 ug/dL Normal 4.8-19.5 [facility] Comment on above: Order Comment: Speci men Type: BLOOD SPECIMENOrdering Facility: [facility] Address: [address] [place] [address] Result Comment: Prov ided reference range is from 6-10 AM sample collection time.Cortisol Reference Range: 6-10 AM = 4.8-19.5 ug/dL, 4-8 PM = 2.5-11.9 ug/dL Performed By: #### 3 024-7, 2143-6, 3016-3 ####[facility] LABCLIA [id number] [place] [address] [place] Magnesium SerPl-mCncon 09-11 Magnesium [Mass/Vol] 1.7 mg/dL Normal 1.7-2.3 [facility] Comment on above: Order Comment: Speci men Type: BLOOD SPECIMENOrdering Facility: [facility] Address: [address] [place] [address] Performed By: #### 2 4323-8, 32198-1 ####[facility] MILLWLALILIA [id number] [place] [address] [place] T4 Free SerPl-mCncon 025 Free T4 [Mass/Vol] 1.7 ng/dL Normal 0.9-1.7 [facility] Comment on above: Order Comment: Speci men Type: BLOOD SPECIMENOrdering Facility: [facility] Address: [address] [place] [address] Performed By: #### 3 024-7, 3-6, 6-3 ####[facility] LABCLIA [id number] [place] [address] [place] TSH SerPl-aCncon 09-11-2024 TSH Qn 0.797 m[IU]/L Normal 0.270-4.200 [facility] Comment on above: Order Comment: Speci men Type: BLOOD SPECIMENOrdering Facility: [facility] Address: [address] [place] [address] Performed By: #### 3 024-7, 6, 6-3 ####[facility] LABCLIA [id number] [place] [address] [place] CNPNon 09-09-2024 CNPN Normal [facility] CNOVon 09-03-2024 CNOV Normal [facility] CBC W Auto Differential pane l (Bld)on 08-21-2024 Basophils (Bld) [#/Vol] 0.03 10*3/uL Normal <0.11 [facility] Comment on above: Order Comment: Speci men Type: BLOOD SPECIMENOrdering Facility: [facility] Address: [address] [place] [address] Performed By: #### 5 7021-8 ####[facility] [id number] [place] [address] [place] Basophils/100 WBC (Bld) 0.4 % Normal [facility] Comment on above: Order Comment: Speci men Type: BLOOD SPECIMENOrdering Facility: [facility] Address: [address] [place] [address] Performed By: #### 5 7021-8 ####[facility] DAVISWNCLIA [id number] [place] [address] [place] Differential cell count method Nom (Bld) Auto Normal [facility] Comment on above: Order Comment: Speci men Type: BLOOD SPECIMENOrdering Facility: [facility] Address: [address] [place] [address] Performed By: #### 5 7021-8 ####[facility] HOSPITALLALILIA [id number] [place] [address] [place] Eosinophils (Bld) [#/Vol] 0.22 10*3/uL Normal <0.46 [facility] Comment on above: Order Comment: Speci men Type: BLOOD SPECIMENOrdering Facility: [facility] Address: [address] [place] [address] Performed By: #### 5 7021-8 ####[facility] HOSPITALLALIA [id number] [place] [address] [place] Eosinophils/100 WBC (Bld) 3.3 % Normal [facility] Comment on above: Order Comment: Speci men Type: BLOOD SPECIMENOrdering Facility: [facility] Address: [address] [place] [address] Performed By: #### 5 7021-8 ####[facility] HOSPITALVIETA [id number] [place] [address] [place] Erythrocyte distribution width (RBC) [Ratio] 12.1 % Normal 11.5-15.0 [facility] Comment on above: Order Comment: Speci men Type: BLOOD SPECIMENOrdering Facility: [facility] Address: [address] [place] [address] Performed By: #### 5 7021-8 ####[facility] HOSPITALNCLIA [id number] [place] [address] [place] Hematocrit (Bld) [Volume fraction] 31.0 % Low 36.0-46.0 [facility] Comment on above: Order Comment: Speci men Type: BLOOD SPECIMENOrdering Facility: [facility] Address: [address] [place] [address] Performed By: #### 5 7021-8 ####[facility]PITALNCUNIVERSITY [facility] [id number] [place] [address] [place] Hemoglobin (Bld) [Mass/Vol] 10.6 g/dL Low 11.5-15.5 [facility] Comment on above: Order Comment: Speci men Type: BLOOD SPECIMENOrdering Facility: [facility] Address: [address] [place] [address] Performed By: #### 5 7021-8 ####[facility] [id number] [place] [address] [place] Immature granulocytes (Bld) [#/Vol] 0.04 10*3/uL Normal <0.10 [facility] Comment on above: Order Comment: Speci men Type: BLOOD SPECIMENOrdering Facility: [facility] Address: [address] [place] [address] Performed By: #### 5 7021-8 ####[facility] [id number] [place] [address] [place] Immature granulocytes/100 WBC (Bld) 0.6 % Normal [facility] Comment on above: Order Comment: Speci men Type: BLOOD SPECIMENOrdering Facility: [facility] Address: [address] [place] [address] Performed By: #### 5 7021-8 ####[facility] [id number] [place] [address] [place] Lymphocytes (Bld) [#/Vol] 1.04 10*3/uL Normal 1.00-4.00 [facility] Comment on above: Order Comment: Speci men Type: BLOOD SPECIMENOrdering Facility: [facility] Address: [address] [place] [address] Performed By: #### 5 7021-8 ####[facility] HOSPITALNCNENITA [id number] [address] [place] Lymphocytes/100 WBC (Bld) 15.5 % Normal [facility] Comment on above: Order Comment: Speci men Type: BLOOD SPECIMENOrdering Facility: [facility] Address: [address] [place] [address] Performed By: #### 5 7021-8 ####[facility] [id number] [place] [address] [place] MCH (RBC) [Entitic mass] 31.1 pg Normal 26.0-34.0 [facility] Comment on above: Order Comment: Speci men Type: BLOOD SPECIMENOrdering Facility: [facility] Address: [address] [place] [address] Performed By: #### 5 7021-8 ####[facility] [id number] [place] [address] [place] MCHC (RBC) [Mass/Vol] 34.2 g/dL Normal 30.5-36.0 [facility] Comment on above: Order Comment: Speci men Type: BLOOD SPECIMENOrdering Facility: [facility] Address: [address] [place] [address] Performed By: #### 5 7021-8 ####[facility] HOSPITALNCLIA [id number] [place] [address] [place] MCV (RBC) [Entitic vol] 90.9 fL Normal 80.0-100.0 [facility] Comment on above: Order Comment: Speci men Type: BLOOD SPECIMENOrdering Facility: [facility] Address: [address] [place] [address] Performed By: #### 5 7021-8 ####[facility] HOSPITALNCLIA [id number] [place] [address] [place] Monocytes (Bld) [#/Vol] 0.74 10*3/uL Normal <0.87 [facility] Comment on above: Order Comment: Speci men Type: BLOOD SPECIMENOrdering Facility: [facility] Address: [address] [place] [address] Performed By: #### 5 7021-8 ####[facility] HOSPITALVIETA [id number] [place] [address] [place] Monocytes/100 WBC (Bld) 11.1 % Normal [facility] Comment on above: Order Comment: Speci men Type: BLOOD SPECIMENOrdering Facility: [facility] Address: [address] [place] [address] Performed By: #### 5 7021-8 ####[facility] HOSPITALLIA [id number] [place] [address] [place] Neutrophils (Bld) [#/Vol] 4.62 10*3/uL Normal 1.45-7.50 [facility] Comment on above: Order Comment: Speci men Type: BLOOD SPECIMENOrdering Facility: [facility] Address: [address] [place] [address] Performed By: #### 5 7021-8 ####[facility] HOSPITALLIA [id number] [place] [address] [place] Neutrophils/100 WBC (Bld) 69.1 % Normal [facility] Comment on above: Order Comment: Speci men Type: BLOOD SPECIMENOrdering Facility: [facility] Address: [address] [place] [address] Performed By: #### 5 7021-8 ####[facility] HOSPITALNCLIA [id number] [place] [address] [place] Nucleated RBC (Bld) [#/Vol] 10*3/uL Normal <0.01 [facility] Comment on above: Order Comment: Speci men Type: BLOOD SPECIMENOrdering Facility: [facility] Address: [address] [place] [address] Performed By: #### 5 7021-8 ####[facility] HOSPITALNCUNIVERSITY OF [facility] [id number] [place] [address] [place] Nucleated RBC/100 WBC (Bld) [Ratio] 0.0 /100 WBC Normal [facility] Comment on above: Order Comment: Speci men Type: BLOOD SPECIMENOrdering Facility: [facility] Address: [address] [place] [address] Performed By: #### 5 7021-8 ####[facility] HOSPITALNCUNIVERSITY OF [facility]OSPITAL [id number] [place] [address] [place] Platelet mean volume (Bld) [Entitic vol] 8.6 fL Low 9.0-12.7 [facility] Comment on above: Order Comment: Speci men Type: BLOOD SPECIMENOrdering Facility: [facility] Address: [address] [place] [address] Performed By: #### 5 7021-8 ####[facility] ERA [id number] [place] [address] [place] Platelets (Bld) [#/Vol] 203 10*3/uL Normal 150-400 [facility] Comment on above: Order Comment: Speci men Type: BLOOD SPECIMENOrdering Facility: [facility] Address: [address] [place] [address] Performed By: #### 5 7021-8 ####[facility] [id number] [place] [address] [place] RBC (Bld) [#/Vol] 3.41 10*6/uL Low 3.90-5.20 [facility] Comment on above: Order Comment: Speci men Type: BLOOD SPECIMENOrdering Facility: [facility] Address: [address] [place] [address] Performed By: #### 5 7021-8 ####[facility] HOSPITALNCLIIzabella [id number] [place] [address] [place] WBC (Bld) [#/Vol] 6.69 10*3/uL Normal 3.70-11.00 [facility] Comment on above: Order Comment: Speci men Type: BLOOD SPECIMENOrdering Facility: [facility] Address: [address] [place] [address] Performed By: #### 5 7021-8 ####[facility] HOSPITALNCUNIVERSITY OF [facility] [id number] [place] [address] [place] CNOVSPon 08-21-2024 CNOVSP Normal [facility] metabolic 2000 panelon 08-21-2024 Albumin [Mass/Vol] 4.0 g/dL Normal 3.9-4.9 [facility] Comment on above: Order Comment: Speci men Type: BLOOD SPECIMENOrdering Facility: [facility] Address: [address] [place] [address] Performed By: #### 2 4323-8 ####[facility] HOSPITALNCLIA [id number] [place] [address] [place] ALP [Catalytic activity/Vol] 206 U/L High 34-123 [facility] Comment on above: Order Comment: Speci men Type: BLOOD SPECIMENOrdering Facility: [facility] Address: [address] [place] [address] Performed By: #### 2 4323-8 ####[facility] HOSPITALNCLIA [id number] [place] [address] [place] ALT [Catalytic activity/Vol] 39 U/L High 7-38 [facility] Comment on above: Order Comment: Speci men Type: BLOOD SPECIMENOrdering Facility: [facility] Address: [address] [place] [address] Performed By: #### 2 4323-8 ####[facility] MILLTOWNCLIA [id number] [place] [address] [place] Anion gap [Moles/Vol] 12 mmol/L Normal 8-15 [facility] Comment on above: Order Comment: Speci men Type: BLOOD SPECIMENOrdering Facility: [facility] Address: [address] [place] [address] Performed By: #### 2 4323-8 ####[facility] MILLWNCLIA [id number] [place] [address] [place] AST [Catalytic activity/Vol] 35 U/L Normal 13-35 [facility] Comment on above: Order Comment: Speci men Type: BLOOD SPECIMENOrdering Facility: [facility] Address: [address] [place] [address] Performed By: #### 2 4323-8 ####[facility] HOSPITALWNCLIA [id number] [place] [address] [place] Bilirubin [Mass/Vol] 0.3 mg/dL Normal 0.2-1.3 [facility] Comment on above: Order Comment: Speci men Type: BLOOD SPECIMENOrdering Facility: [facility] Address: [address] [place] [address] Performed By: #### 2 4323-8 ####[facility] MILLTOWNCLIA [id number] [place] [address] [place] Calcium [Mass/Vol] 9.7 mg/dL Normal 8.5-10.2 [facility] Comment on above: Order Comment: Speci men Type: BLOOD SPECIMENOrdering Facility: [facility] Address: [address] [place] [address] Performed By: #### 2 4323-8 ####[facility] MILLWNCLIA [id number] [place] [address] [place] Chloride [Moles/Vol] 103 mmol/L Normal 98-107 [facility] Comment on above: Order Comment: Speci men Type: BLOOD SPECIMENOrdering Facility: [facility] Address: [address] [place] [address] Performed By: #### 2 4323-8 ####[facility] [id number] [place] [address] [place] CO2 [Moles/Vol] 24 mmol/L Normal 22-30 [facility] Comment on above: Order Comment: Speci men Type: BLOOD SPECIMENOrdering Facility: [facility] Address: [address] [place] [address] Performed By: #### 2 4323-8 ####[facility] [id number] [place] [address] [place] Creatinine [Mass/Vol] 0.99 mg/dL High 0.58-0.96 [facility] Comment on above: Order Comment: Speci men Type: BLOOD SPECIMENOrdering Facility: [facility] Address: [address] [place] [address] Performed By: #### 2 4323-8 ####[facility] [id number] [place] [address] [place] eGFRcr SerPlBld CKD-EPI 2020 64 mL/min/1.73m??? Normal >=60 [facility] Comment on above: Order Comment: Speci men Type: BLOOD SPECIMENOrdering Facility: [facility] Address: [address] [place] [address] Result Comment: Ann mated Glomerular Filtration Rate (eGFR) is calculated using the 2020 CKD-EPI creatinine equation. This equation utilizes serum creatinine, sex, and age as parameters. The creatinine assay has traceable calibration to isotope dilution-mass spectrometry. Refer to KDIGO guidelines for clinical interpretation. In patients with unstable renal function, e.g. those with acute kidney injury, the eGFR may not accurately reflect actual GFR. Performed By: #### 2 4323-8 ####[facility] DAVISFARMVILLENCLIA [id number] [place] [address] [place] Glucose [Mass/Vol] 97 mg/dL Normal 74-99 [facility] Comment on above: Order Comment: Speci men Type: BLOOD SPECIMENOrdering Facility: [facility] Address: [address] [place], [place] [address] Result Comment: The [place] [employer] (ADA) provides guidance for cutoff values for fasting glucose and random glucose. The ADA defines fasting as no caloric intake for at least 8 hours. Fasting plasma glucose results between 100 to 125 mg/dL indicate increased risk for diabetes (prediabetes).Fasting plasma glucose results greater than or equal to 126 mg/dL meet the criteria for diagnosis of diabetes. In the absence of unequivocal hyperglycemia, results should be confirmed by repeat testing. In a patient with classic symptoms of hyperglycemia or hyperglycemic crisis, random plasma glucose results greater than or equal to 200 mg/dL meet the criteria for diagnosis of diabetes.Reference: Standards of Medical Care in Diabetes 2016, [place] [employer]. Diabetes Care. 2016.39(Suppl 1). Performed By: #### 2 4323-8 ####[facility] ERA [id number] [place] [address] [place] Potassium [Moles/Vol] 4.2 mmol/L Normal 3.7-5.1 [facility] Comment on above: Order Comment: Kushali henrry Type: BLOOD SPECIMENOrdering Facility: [facility] Address: [address] [place] [address] Performed By: #### 2 4323-8 ####[facility] ERA [id number] [place] [address] [place] Protein [Mass/Vol] 7.3 g/dL Normal 6.3-8.0 [facility] Comment on above: Order Comment: Kushali henrry Type: BLOOD SPECIMENOrdering Facility: [facility] Address: [address] [place] [address] Performed By: #### 2 4323-8 ####[facility] HOSPITALWNCLIA [id number] [place] [address] [place] Sodium [Moles/Vol] 139 mmol/L Normal 136-144 [facility] Comment on above: Order Comment: Speci men Type: BLOOD SPECIMENOrdering Facility: [facility] Address: [address] [place] [address] Performed By: #### 2 4323-8 ####[facility] HOSPITALWNCLIA [id number] [place] [address] [place] Urea nitrogen [Mass/Vol] 13 mg/dL Normal 7-21 [facility] Comment on above: Order Comment: Speci men Type: BLOOD SPECIMENOrdering Facility: [facility] Address: [address] [place] [address] Performed By: #### 2 4323-8 ####[facility] HOSPITALNCLIA [id number] [place] [address] [place] Cortis SerPl-mCncon 08-22-19 25 Cortisol [Mass/Vol] 14.0 ug/dL Normal 4.8-19.5 [facility] Comment on above: Order Comment: Speci men Type: BLOOD SPECIMENOrdering Facility: [facility] Address: [address] [place] [address] Result Comment: Prov ided reference range is from 6-10 AM sample collection time.Cortisol Reference Range: 6-10 AM = 4.8-19.5 ug/dL, 4-8 PM = 2.5-11.9 ug/dL Performed By: #### 2 143-6, 3024-7 ####[facility] LABCLIA [id number] [place] [address] [place] T4 Free SerPl-mCncon 025 Free T4 [Mass/Vol] 1.7 ng/dL Normal 0.9-1.7 [facility] Comment on above: Order Comment: Speci men Type: BLOOD SPECIMENOrdering Facility: [facility] Address: [address] [place] [address] Performed By: #### 2 143-6, 3024-7 ####[facility] LABCLIA [id number] [place] [address] [place] CNOVon 08-11-2024 CNOV Normal [facility] TSH SerPl-aCncon 08-11-2024 TSH Qn 0.580 m[IU]/L Normal 0.270-4.200 [facility] Comment on above: Order Comment: Speci men Type: BLOOD SPECIMENOrdering Facility: [facility] Address: [address] [place] [address] Performed By: #### 3 016-3 ####[facility] LABCLIA [id number] [place] [address] [place] XR CHEST 2V FRONTAL/LATon XR CHEST 2V FRONTAL/LAT Normal [facility] XR Chest PA and Lateralon IMPRESSION: Stable postoperative changes, right hemithorax. Acute Care Nurse: BAYLEE Transcribe Date/Time: Aug 05 2024 11:22A Dictated by : GRADY DEL REAL MD This examination was interpreted and the report reviewed and electronically signed by: GRADY DEL REAL MD on Aug 05 2024 11:26AM [facility] DIVISION OF RADIOLOGY * * *Final Report* * * DATE OF EXAM: Aug 05 2024 10:44AM [id number] - XR CHEST 2V FRONTAL/LAT / PROCEDURE REASON: multiple diagnoses * * * * Physician Interpretation * * * * EXAMINATION: CHEST RADIOGRAPH (2 VIEW FRONTAL & LATERAL) CLINICAL HISTORY: Malignant neoplasm of lower lobe of right lung (HCC) Pleural effusion MQ: XC2_6 EXAM DATE/TIME: 08/05/2024 10:44 AM COMPARISON: 07/03/2024 RESULT: Lines, tubes, and devices: None. Lungs and pleura: Volume loss, right hemithorax, consistent with previous surgery. Pleural scarring, right base. Chronic infiltrate along the upper right chest wall. No new consolidation and atelectasis or evidence of pneumothorax. Pulmonary vascularity normal. Cardiomediastinal silhouette: Normal cardiomediastinal silhouette. Bones and soft tissues: Unremarkable. DIVISION OF RADIOLOGY Provider, Elliott Tejeda - 08/05/2024 * * *Final Report* * * DATE OF EXAM: Aug 05 2024 10:44AM [id number] - XR CHEST 2V FRONTAL/LAT / PROCEDURE REASON: multiple diagnoses * * * * Physician Interpretation * * * * EXAMINATION: CHEST RADIOGRAPH (2 VIEW FRONTAL & LATERAL) CLINICAL HISTORY: Malignant neoplasm of lower lobe of right lung (HCC) Pleural effusion MQ: XC2_6 EXAM DATE/TIME: 08/05/2024 10:44 AM COMPARISON: 07/03/2024 RESULT: Lines, tubes, and devices: None. Lungs and pleura: Volume loss, right hemithorax, consistent with previous surgery. Pleural scarring, right base. Chronic infiltrate along the upper right chest wall. No new consolidation and atelectasis or evidence of pneumothorax. Pulmonary vascularity normal. Cardiomediastinal silhouette: Normal cardiomediastinal silhouette. Bones and soft tissues: Unremarkable. IMPRESSION IMPRESSION: Stable postoperative changes, right hemithorax. Acute Care Nurse: PSCB Transcribe Date/Time: Aug 05 2024 11:22A Dictated by : GRADY DEL REAL MD This examination was interpreted and the report reviewed and electronically signed by: GRADY DEL REAL MD on Aug 05 2024 11:26AM EST [facility] Radiology Study observation (narrative) [facility] XR Chest PA and LateralOrder ed By: Ccf Provider on 08-05-2024 [facility] CBC W Auto Differential pane l (Bld)on 07-30-2024 Basophils (Bld) [#/Vol] 0.05 10*3/uL Normal <0.11 [facility] Comment on above: Order Comment: Speci men Type: BLOOD SPECIMENOrdering Facility: [facility] Address: [address] [place] [address] Performed By: #### 5 7021-8 ####[facility] [id number] [place] [address] [place] Basophils/100 WBC (Bld) 0.6 % Normal [facility] Comment on above: Order Comment: Speci men Type: BLOOD SPECIMENOrdering Facility: [facility] Address: [address] [place] [address] Performed By: #### 5 7021-8 ####[facility] HOSPITALNCLIA [id number] [place] [address] [place] Differential cell count method Nom (Bld) Auto Normal [facility] Comment on above: Order Comment: Speci men Type: BLOOD SPECIMENOrdering Facility: [facility] Address: [address] [place] [address] Performed By: #### 5 7021-8 ####[facility]PITALNCUNIVERSITY OF [facility] [id number] [place] [address] [place] Eosinophils (Bld) [#/Vol] 0.41 10*3/uL Normal <0.46 [facility] Comment on above: Order Comment: Speci men Type: BLOOD SPECIMENOrdering Facility: [facility] Address: [address] [place] [address] Performed By: #### 5 7021-8 ####[facility] HOSPITALLIA [id number] [place] [address] [place] Eosinophils/100 WBC (Bld) 5.1 % Normal [facility] Comment on above: Order Comment: Speci men Type: BLOOD SPECIMENOrdering Facility: [facility] Address: [address] [place] [address] Performed By: #### 5 7021-8 ####[facility] HOSPITALNCA [id number] [place] [address] [place] Erythrocyte distribution width (RBC) [Ratio] 12.3 % Normal 11.5-15.0 [facility] Comment on above: Order Comment: Speci men Type: BLOOD SPECIMENOrdering Facility: [facility] Address: [address] [place] [address] Performed By: #### 5 7021-8 ####[facility] DAVISWNCLIA [id number] [place] [address] [place] Hematocrit (Bld) [Volume fraction] 32.2 % Low 36.0-46.0 [facility] Comment on above: Order Comment: Speci men Type: BLOOD SPECIMENOrdering Facility: [facility] Address: [address] [place] [address] Performed By: #### 5 7021-8 ####[facility] HOSPITALNCLIA [id number] [place] [address] [place] Hemoglobin (Bld) [Mass/Vol] 11.0 g/dL Low 11.5-15.5 [facility] Comment on above: Order Comment: Speci men Type: BLOOD SPECIMENOrdering Facility: [facility] Address: [address] [place] [address] Performed By: #### 5 7021-8 ####[facility] HOSPITALNCLIA [id number] [place] [address] [place] Immature granulocytes (Bld) [#/Vol] 0.04 10*3/uL Normal <0.10 [facility] Comment on above: Order Comment: Speci men Type: BLOOD SPECIMENOrdering Facility: [facility] Address: [address] [place] [address] Performed By: #### 5 7021-8 ####[facility] HOSPITALNCLIA [id number] [place] [address] [place] Immature granulocytes/100 WBC (Bld) 0.5 % Normal [facility] Comment on above: Order Comment: Speci men Type: BLOOD SPECIMENOrdering Facility: [facility] Address: [address] [place] [address] Performed By: #### 5 7021-8 ####[facility] HOSPITALNCLI [id number] [place] [address] [place] Lymphocytes (Bld) [#/Vol] 0.90 10*3/uL Low 1.00-4.00 [facility] Comment on above: Order Comment: Speci men Type: BLOOD SPECIMENOrdering Facility: [facility] Address: [address] [place] [address] Performed By: #### 5 7021-8 ####[facility] [id number] [place] [address] [place] Lymphocytes/100 WBC (Bld) 11.3 % Normal [facility] Comment on above: Order Comment: Speci men Type: BLOOD SPECIMENOrdering Facility: [facility] Address: [address] [place] [address] Performed By: #### 5 7021-8 ####[facility] HOSPITALLALIIzabella [id number] [place] [address] [place] MCH (RBC) [Entitic mass] 31.2 pg Normal 26.0-34.0 [facility] Comment on above: Order Comment: Speci men Type: BLOOD SPECIMENOrdering Facility: [facility] Address: [address] [place] [address] Performed By: #### 5 7021-8 ####[facility] HOSPITALNENITA [id number] [place] [address] [place] MCHC (RBC) [Mass/Vol] 34.2 g/dL Normal 30.5-36.0 [facility] Comment on above: Order Comment: Speci men Type: BLOOD SPECIMENOrdering Facility: [facility] Address: [address] [place] [address] Performed By: #### 5 7021-8 ####[facility] HOSPITALNCLIA [id number] [place] [address] [place] MCV (RBC) [Entitic vol] 91.2 fL Normal 80.0-100.0 [facility] Comment on above: Order Comment: Speci men Type: BLOOD SPECIMENOrdering Facility: [facility] Address: [address] [place] [address] Performed By: #### 5 7021-8 ####[facility] [id number] [place] [address] [place] Monocytes (Bld) [#/Vol] 0.87 10*3/uL High <0.87 [facility] Comment on above: Order Comment: Speci men Type: BLOOD SPECIMENOrdering Facility: [facility] Address: [address] [place] [address] Performed By: #### 5 7021-8 ####[facility] [id number] [place] [address] [place] Monocytes/100 WBC (Bld) 10.9 % Normal [facility] Comment on above: Order Comment: Speci men Type: BLOOD SPECIMENOrdering Facility: [facility] Address: [address] [place] [address] Performed By: #### 5 7021-8 ####[facility] [id number] [place] [address] [place] Neutrophils (Bld) [#/Vol] 5.71 10*3/uL Normal 1.45-7.50 [facility] Comment on above: Order Comment: Speci men Type: BLOOD SPECIMENOrdering Facility: [facility] Address: [address] [place] [address] Performed By: #### 5 7021-8 ####[facility] [id number] [place] [address] [place] Neutrophils/100 WBC (Bld) 71.6 % Normal [facility] Comment on above: Order Comment: Speci men Type: BLOOD SPECIMENOrdering Facility: [facility] Address: [address] [place] [address] Performed By: #### 5 7021-8 ####[facility] HOSPITALNCLIA [id number] [place] [address] [place] Nucleated RBC (Bld) [#/Vol] 10*3/uL Normal <0.01 [facility] Comment on above: Order Comment: Speci men Type: BLOOD SPECIMENOrdering Facility: [facility] Address: [address] [place] [address] Performed By: #### 5 7021-8 ####[facility] ERA [id number] [place] [address] [place] Nucleated RBC/100 WBC (Bld) [Ratio] 0.0 /100 WBC Normal [facility] Comment on above: Order Comment: Speci men Type: BLOOD SPECIMENOrdering Facility: [facility] Address: [address] [place] [address] Performed By: #### 5 7021-8 ####[facility] HOSPITALNCLIA [id number] [place] [address] [place] Platelet mean volume (Bld) [Entitic vol] 9.0 fL Normal 9.0-12.7 [facility] Comment on above: Order Comment: Speci men Type: BLOOD SPECIMENOrdering Facility: [facility] Address: [address] [place] [address] Performed By: #### 5 7021-8 ####[facility] HOSPITALLIA [id number] [place] [address] [place] Platelets (Bld) [#/Vol] 250 10*3/uL Normal 150-400 [facility] Comment on above: Order Comment: Speci men Type: BLOOD SPECIMENOrdering Facility: [facility] Address: [address] [place] [address] Performed By: #### 5 7021-8 ####[facility] HOSPITALNCLI [id number] [place] [address] [place] RBC (Bld) [#/Vol] 3.53 10*6/uL Low 3.90-5.20 [facility] Comment on above: Order Comment: Speci men Type: BLOOD SPECIMENOrdering Facility: [facility] Address: [address] [place] [address] Performed By: #### 5 7021-8 ####[facility] MILLTOWNCLIA [id number] [place] [address] [place] WBC (Bld) [#/Vol] 7.98 10*3/uL Normal 3.70-11.00 [facility] Comment on above: Order Comment: Speci men Type: BLOOD SPECIMENOrdering Facility: [facility] Address: [address] [place] [address] Performed By: #### 5 7021-8 ####[facility]OS[facility]ITALWNCLIA [id number] [place] [address] [place] CNOVSPon 07-30-2024 CNOVSP Normal [facility] Comprehensive metabolic 2000 panelon 07-30-2024 Albumin [Mass/Vol] 3.9 g/dL Normal 3.9-4.9 [facility] Comment on above: Order Comment: Speci men Type: BLOOD SPECIMENOrdering Facility: [facility] Address: [address] [place] [address] [address] Performed By: #### 2 4323-8, 75227-5 ####[facility] MILLWNCLIA [id number] [place] [address] [place] ALP [Catalytic activity/Vol] 242 U/L High 34-123 [facility] Comment on above: Order Comment: Speci men Type: BLOOD SPECIMENOrdering Facility: [facility] Address: [address] [place] [address] Performed By: #### 2 4323-8, 40201-8 ####[facility] MILLTOWNCLIA [id number] [place] [address] [place] ALT [Catalytic activity/Vol] 34 U/L Normal 7-38 [facility] Comment on above: Order Comment: Speci men Type: BLOOD SPECIMENOrdering Facility: [facility] Address: [address] [place] [address] Performed By: #### 2 4323-8, ####[facility] MILLTOWLALILIA [id number] [place] [address] [place] Anion gap [Moles/Vol] 11 mmol/L Normal 8-15 [facility] Comment on above: Order Comment: Speci men Type: BLOOD SPECIMENOrdering Facility: [facility] Address: [address] [place] [address] Performed By: #### 2 4323-8, ####[facility] HOSPITALWLALILIA [id number] [place] [address] [place] AST [Catalytic activity/Vol] 35 U/L Normal 13-35 [facility] Comment on above: Order Comment: Speci men Type: BLOOD SPECIMENOrdering Facility: [facility] Address: [address] [place] [address] Performed By: #### 2 4323-8, ####[facility] DAVISWLALILIA [id number] [place] [address] [place] Bilirubin [Mass/Vol] 0.3 mg/dL Normal 0.2-1.3 [facility] Comment on above: Order Comment: Speci men Type: BLOOD SPECIMENOrdering Facility: [facility] Address: [address] [place] [address] Performed By: #### 2 4323-8, ####[facility] MILLTOWNCLIA [id number] [place] [address] [place] Calcium [Mass/Vol] 10.0 mg/dL Normal 8.5-10.2 [facility] Comment on above: Order Comment: Speci men Type: BLOOD SPECIMENOrdering Facility: [facility] Address: [address] [place] [address] Performed By: #### 2 4323-8, ####[facility] HOSPITALNCLIA [id number] [place] [address] [place] Chloride [Moles/Vol] 104 mmol/L Normal 98-107 [facility] Comment on above: Order Comment: Speci men Type: BLOOD SPECIMENOrdering Facility: [facility] Address: [address] [place], [place] [address] Performed By: #### 2 4323-8, ####[facility] HOSPITALNCLIA [id number] [place] [address] [place] CO2 [Moles/Vol] 21 mmol/L Low 22-30 [facility] Comment on above: Order Comment: Speci men Type: BLOOD SPECIMENOrdering Facility: [facility] Address: [address] [place] [address] Performed By: #### 2 4323-8, ####[facility]OSPITALLIA [id number] [place] [address] [place] Creatinine [Mass/Vol] 0.92 mg/dL Normal 0.58-0.96 [facility] Comment on above: Order Comment: Speci men Type: BLOOD SPECIMENOrdering Facility: [facility] Address: [address] [place] [address] Performed By: #### 2 4323-8, ####[facility] HOSPITALLIA [id number] [place] [address] [place] Creatinine and Glomerular filtration rate.predicted panel (S/P/Bld) 70 mL/min/1.73m??? Normal >=60 [facility] Comment on above: Order Comment: Med[place] sales Type: BLOOD SPECIMENOrdering Facility: [facility] Address: [address] [place] [address] Result Comment: Ann mated Glomerular Filtration Rate (eGFR) is calculated using the 2020 CKD-EPI creatinine equation. This equation utilizes serum creatinine, sex, and age as parameters. The creatinine assay has traceable calibration to isotope dilution-mass spectrometry. Refer to KDIGO guidelines for clinical interpretation. In patients with unstable renal function, e.g. those with acute kidney injury, the eGFR may not accurately reflect actual GFR. Performed By: #### 2 4323-8, 30263-3 ####[facility] [id number] [place] [address] [place] Glucose [Mass/Vol] 87 mg/dL Normal 74-99 [facility] Comment on above: Order Comment: Med[place] sales Type: BLOOD SPECIMENOrdering Facility: [facility] Address: [address] [place] [address] Result Comment: The [place] Diabetes Association (ADA) provides guidance for cutoff values for fasting glucose and random glucose. The ADA defines fasting as no caloric intake for at least 8 hours. Fasting plasma glucose results between 100 to 125 mg/dL indicate increased risk for diabetes (prediabetes).Fasting plasma glucose results greater than or equal to 126 mg/dL meet the criteria for diagnosis of diabetes. In the absence of unequivocal hyperglycemia, results should be confirmed by repeat testing. In a patient with classic symptoms of hyperglycemia or hyperglycemic crisis, random plasma glucose results greater than or equal to 200 mg/dL meet the criteria for diagnosis of diabetes.Reference: Standards of Medical Care in Diabetes 2016, [place] [employer]. Diabetes Care. 2016.39(Suppl 1). Performed By: #### 2 4323-8, 08480-9 ####[facility] [id number] [place] [address] [place] Potassium [Moles/Vol] 3.9 mmol/L Normal 3.7-5.1 [facility] Comment on above: Order Comment: Medina sales Type: BLOOD SPECIMENOrdering Facility: [facility] Address: [address] [place], [place] [address] Performed By: #### 2 4323-8, 34279-9 ####[facility] DAVISBERENICELIA [id number] [place] [address] [place] Protein [Mass/Vol] 7.6 g/dL Normal 6.3-8.0 [facility] Comment on above: Order Comment: Speci men Type: BLOOD SPECIMENOrdering Facility: [facility] Address: [address] [place] [address] Performed By: #### 2 4323-8, 41364-8 ####[facility] DAVISMACA [id number] [place] [address] [place] Sodium [Moles/Vol] 136 mmol/L Normal 136-144 [facility] Comment on above: Order Comment: Speci men Type: BLOOD SPECIMENOrdering Facility: [facility] Address: [address] [place] [address] Performed By: #### 2 4323-8, 86882-0 ####[facility] DAVISMARCIVIETA [id number] [place] [address] [place] Urea nitrogen [Mass/Vol] 15 mg/dL Normal 7-21 [facility] Comment on above: Order Comment: Speci men Type: BLOOD SPECIMENOrdering Facility: [facility] Address: [address] [place] [address] Performed By: #### 2 4323-8, ####[facility] MILLFARMVILLENCLIA [id number] [place] [address] [place] Cortis SerPl-mCncon 07-30-20 25 Cortisol [Mass/Vol] 18.9 ug/dL Normal 4.8-19.5 [facility] Comment on above: Order Comment: Speci men Type: BLOOD SPECIMENOrdering Facility: [facility] Address: [address] [place], [place] [address] Result Comment: Prov ided reference range is from 6-10 AM sample collection time.Cortisol Reference Range: 6-10 AM = 4.8-19.5 ug/dL, 4-8 PM = 2.5-11.9 ug/dL Performed By: #### 3 024-7, 2142-07, 3015-3 ####[facility] LABCLIA [id number] [place] [address] [place] Magnesium SerPl-mCncon 07-30 Magnesium [Mass/Vol] 1.6 mg/dL Low 1.7-2.3 [facility] Comment on above: Order Comment: Speci men Type: BLOOD SPECIMENOrdering Facility: [facility] Address: [address] [place] [address] Performed By: #### 2 4323-8, 38456-5 ####[facility] [id number] [place] [address] [place] T4 Free SerPl-mCncon 025 Free T4 [Mass/Vol] 1.7 ng/dL Normal 0.9-1.7 [facility] Comment on above: Order Comment: Speci men Type: BLOOD SPECIMENOrdering Facility: [facility] Address: [address] [place] [address] Performed By: #### 3 024-7, 2142-07, 3 ####[facility] LABCLIA [id number] [place] [address] [place] TSH SerPl-aCncon 07-30-2024 TSH Qn 1.660 m[IU]/L Normal 0.270-4.200 [facility] Comment on above: Order Comment: Speci men Type: BLOOD SPECIMENOrdering Facility: [facility] Address: [address] [place] [address] Performed By: #### 3 024-7, 6, 3 ####[facility] LABCLIA [id number] [place] [address] [place] CBC W Auto Differential pane l (Bld)on 07-10-2024 Basophils (Bld) [#/Vol] 0.04 10*3/uL Normal <0.11 [facility] Comment on above: Order Comment: Speci men Type: BLOOD SPECIMENOrdering Facility: [facility] Address: [address] [place] [address] Performed By: #### 5 7021-8 ####[facility] ERA [id number] [place] [address] [place] Basophils/100 WBC (Bld) 0.6 % Normal [facility] Comment on above: Order Comment: Speci men Type: BLOOD SPECIMENOrdering Facility: [facility] Address: [address] [place] [address] Performed By: #### 5 7021-8 ####[facility] ERA [id number] [place] [address] [place] Differential cell count method Nom (Bld) Auto Normal [facility] Comment on above: Order Comment: Speci men Type: BLOOD SPECIMENOrdering Facility: [facility] Address: [address] [place] [address] Performed By: #### 5 7021-8 ####[facility] ERA [id number] [place] [address] [place] Eosinophils (Bld) [#/Vol] 0.22 10*3/uL Normal <0.46 [facility] Comment on above: Order Comment: Speci men Type: BLOOD SPECIMENOrdering Facility: [facility] Address: [address] [place] [address] Performed By: #### 5 7021-8 ####[facility] HOSPITALLIA [id number] [place] [address] [place] Eosinophils/100 WBC (Bld) 3.3 % Normal [facility] Comment on above: Order Comment: Speci men Type: BLOOD SPECIMENOrdering Facility: [facility] Address: [address] [place] [address] Performed By: #### 5 7021-8 ####[facility]PITALNCUNIVERS[facility] [id number] [place] [address] [place] Erythrocyte distribution width (RBC) [Ratio] 12.3 % Normal 11.5-15.0 [facility] Comment on above: Order Comment: Speci men Type: BLOOD SPECIMENOrdering Facility: [facility] Address: [address] [place] [address] Performed By: #### 5 7021-8 ####[facility]PITALNCUNIVERS[facility] [id number] [place] [address] [place] Hematocrit (Bld) [Volume fraction] 30.1 % Low 36.0-46.0 [facility] Comment on above: Order Comment: Speci men Type: BLOOD SPECIMENOrdering Facility: [facility] Address: [address] [place] [address] Performed By: #### 5 7021-8 ####[facility] [id number] [place] [address] [place] Hemoglobin (Bld) [Mass/Vol] 10.2 g/dL Low 11.5-15.5 [facility] Comment on above: Order Comment: Speci men Type: BLOOD SPECIMENOrdering Facility: [facility] Address: [address] [place] [address] Performed By: #### 5 7021-8 ####[facility] [id number] [place] [address] [place] Immature granulocytes (Bld) [#/Vol] 10*3/uL Normal <0.10 [facility] Comment on above: Order Comment: Speci men Type: BLOOD SPECIMENOrdering Facility: [facility] Address: [address] [place] [address] Performed By: #### 5 7021-8 ####[facility] HOSPITALNCLIA [id number] [place] [address] [place] [facility] Immature granulocytes/100 WBC (Bld) 0.3 % Normal [facility] Comment on above: Order Comment: Speci men Type: BLOOD SPECIMENOrdering Facility: [facility] Address: [address] [place] [address] Performed By: #### 5 7021-8 ####[facility] HOSPITALNCLI [id number] [place] [address] [place] Lymphocytes (Bld) [#/Vol] 0.93 10*3/uL Low 1.00-4.00 [facility] Comment on above: Order Comment: Speci men Type: BLOOD SPECIMENOrdering Facility: [facility] Address: [address] [place] [address] Performed By: #### 5 7021-8 ####[facility] [id number] [place] [address] [place] Lymphocytes/100 WBC (Bld) 14.0 % Normal [facility] Comment on above: Order Comment: Speci men Type: BLOOD SPECIMENOrdering Facility: [facility] Address: [address] [place] [address] Performed By: #### 5 7021-8 ####[facility] HOSPITALNCLIA [id number] [place] [address] [place] MCH (RBC) [Entitic mass] 31.9 pg Normal 26.0-34.0 [facility] Comment on above: Order Comment: Speci men Type: BLOOD SPECIMENOrdering Facility: [facility] Address: [address] [place] [address] Performed By: #### 5 7021-8 ####[facility]ITALNCUNIVERSITY [facility] [id number] [place] [address] [place] MCHC (RBC) [Mass/Vol] 33.9 g/dL Normal 30.5-36.0 [facility] Comment on above: Order Comment: Speci men Type: BLOOD SPECIMENOrdering Facility: [facility] Address: [address] [place] [address] Performed By: #### 5 7021-8 ####[facility] ADVISFARMVILLELALINENITA [id number] [place] [address] [place] MCV (RBC) [Entitic vol] 94.1 fL Normal 80.0-100.0 [facility] Comment on above: Order Comment: Speci men Type: BLOOD SPECIMENOrdering Facility: [facility] Address: [address] [place] [address] Performed By: #### 5 7021-8 ####[facility] HOSPITALLALIUNIVERSITY OF [facility] [id number] [place] [address] [place] Monocytes (Bld) [#/Vol] 0.81 10*3/uL Normal <0.87 [facility] Comment on above: Order Comment: Speci men Type: BLOOD SPECIMENOrdering Facility: [facility] Address: [address] [place] [address] Performed By: #### 5 7021-8 ####[facility] HOSPITALVIETA [id number] [place] [address] [place] Monocytes/100 WBC (Bld) 12.2 % Normal [facility] Comment on above: Order Comment: Speci men Type: BLOOD SPECIMENOrdering Facility: [facility] Address: [address] [place] [address] Performed By: #### 5 7021-8 ####[facility] HOSPITALLIA [id number] [place] [address] [place] Neutrophils (Bld) [#/Vol] 4.64 10*3/uL Normal 1.45-7.50 [facility] Comment on above: Order Comment: Speci men Type: BLOOD SPECIMENOrdering Facility: [facility] Address: [address] [place] [address] Performed By: #### 5 7021-8 ####[facility] [id number] [place] [address] [place] Neutrophils/100 WBC (Bld) 69.6 % Normal [facility] Comment on above: Order Comment: Speci men Type: BLOOD SPECIMENOrdering Facility: [facility] Address: [address] [place] [address] Performed By: #### 5 7021-8 ####[facility] [id number] [place] [address] [place] Nucleated RBC (Bld) [#/Vol] 10*3/uL Normal <0.01 [facility] Comment on above: Order Comment: Speci men Type: BLOOD SPECIMENOrdering Facility: [facility] Address: [address] [place] [address] Performed By: #### 5 7021-8 ####[facility] [id number] [place] [address] [place] Nucleated RBC/100 WBC (Bld) [Ratio] 0.0 /100 WBC Normal [facility] Comment on above: Order Comment: Speci men Type: BLOOD SPECIMENOrdering Facility: [facility] Address: [address] [place] [address] Performed By: #### 5 7021-8 ####[facility] [id number] [place] [address] [place] Platelet mean volume (Bld) [Entitic vol] 8.8 fL Low 9.0-12.7 [facility] Comment on above: Order Comment: Speci men Type: BLOOD SPECIMENOrdering Facility: [facility] Address: [address] [place], [place] [address] Performed By: #### 5 7021-8 ####[facility] DAVISFARMVILLENCLIA [id number] [place] [address] [place] Platelets (Bld) [#/Vol] 235 10*3/uL Normal 150-400 [facility] Comment on above: Order Comment: Speci men Type: BLOOD SPECIMENOrdering Facility: [facility] Address: [address] [place], [place] [address] Performed By: #### 5 7021-8 ####[facility] HOSPITALNCLIA [id number] [place] [address] [place] RBC (Bld) [#/Vol] 3.20 10*6/uL Low 3.90-5.20 [facility] Comment on above: Order Comment: Speci men Type: BLOOD SPECIMENOrdering Facility: [facility] Address: [address] [place], [place] [address] Performed By: #### 5 7021-8 ####[facility] HOSPITALNCA [id number] [place] [address] [place] WBC (Bld) [#/Vol] 6.66 10*3/uL Normal 3.70-11.00 [facility] Comment on above: Order Comment: Speci men Type: BLOOD SPECIMENOrdering Facility: [facility] Address: [address] [place] [address] Performed By: #### 5 7021-8 ####[facility] HOSPITALNCLIA [id number] [place] [address] [place] CNOVSPon 07-10-2024 CNOVSP Normal [facility] Comprehensive metabolic 2000 panelon 07-10-2024 Albumin [Mass/Vol] 4.1 g/dL Normal 3.9-4.9 [facility] Comment on above: Order Comment: Speci men Type: BLOOD SPECIMENOrdering Facility: [facility] Address: [address] [place] [address] Performed By: #### 2 4323-8, 21890-8 ####[facility] MILLTOWNCLIA [id number] [place] [address] [place] ALP [Catalytic activity/Vol] 238 U/L High 34-123 [facility] Comment on above: Order Comment: Speci men Type: BLOOD SPECIMENOrdering Facility: [facility] Address: [address] [place] [address] Performed By: #### 2 4323-8, ####[facility] MILLTOWNCLIA [id number] [place] [address] [place] ALT [Catalytic activity/Vol] 31 U/L Normal 7-38 [facility] Comment on above: Order Comment: Speci men Type: BLOOD SPECIMENOrdering Facility: [facility] Address: [address] [place] [address] Performed By: #### 2 432-8, ####[facility] MILLWNCLIA [id number] [place] [address] [place] Anion gap [Moles/Vol] 12 mmol/L Normal 8-15 [facility] Comment on above: Order Comment: Speci men Type: BLOOD SPECIMENOrdering Facility: [facility] Address: [address] [place] [address] Performed By: #### 2 4323-8, ####[facility] MILLTOWNCLIA [id number] [place] [address] [place] AST [Catalytic activity/Vol] 28 U/L Normal 13-35 [facility] Comment on above: Order Comment: Speci men Type: BLOOD SPECIMENOrdering Facility: [facility] Address: [address] [place] [address] Performed By: #### 2 4323-8, 26964-8 ####[facility] MILLTOWNCLIA [id number] [place] [address] [place] Bilirubin [Mass/Vol] 0.4 mg/dL Normal 0.2-1.3 [facility] Comment on above: Order Comment: Speci men Type: BLOOD SPECIMENOrdering Facility: [facility] Address: [address] [place] [address] Performed By: #### 2 4323-8, ####[facility] MILLTOWNCLIA [id number] [place] [address] [place] Calcium [Mass/Vol] 9.3 mg/dL Normal 8.5-10.2 [facility] Comment on above: Order Comment: Speci men Type: BLOOD SPECIMENOrdering Facility: [facility] Address: [address] [place] [address] Performed By: #### 2 4323-8, ####[facility] HOSPITALWNCLIA [id number] [place] [address] [place] Chloride [Moles/Vol] 104 mmol/L Normal 98-107 [facility] Comment on above: Order Comment: Speci men Type: BLOOD SPECIMENOrdering Facility: [facility] Address: [address] [place] [address] Performed By: #### 2 4323-8, ####[facility] MILLTOWNCLIA [id number] [place] [address] [place] CO2 [Moles/Vol] 21 mmol/L Low 22-30 [facility] Comment on above: Order Comment: Speci men Type: BLOOD SPECIMENOrdering Facility: [facility] Address: [address] [place] [address] Performed By: #### 2 4323-8, ####[facility] MILLTOWNCLIA [id number] [place] [address] [place] Creatinine [Mass/Vol] 0.97 mg/dL High 0.58-0.96 [facility] Comment on above: Order Comment: [place] sales Type: BLOOD SPECIMENOrdering Facility: [facility] Address: [address] [place] [address] Performed By: #### 2 4323-8, ####[facility] HOSPITALNCLIA [id number] [address] [place] Creatinine and Glomerular filtration rate.predicted panel (S/P/Bld) 66 mL/min/1.73m??? Normal >=60 [facility] Comment on above: Order Comment: [place] sales Type: BLOOD SPECIMENOrdering Facility: [facility] Address: [address] [place] [address] Result Comment: Ann mated Glomerular Filtration Rate (eGFR) is calculated using the 2020 CKD-EPI creatinine equation. This equation utilizes serum creatinine, sex, and age as parameters. The creatinine assay has traceable calibration to isotope dilution-mass spectrometry. Refer to KDIGO guidelines for clinical interpretation. In patients with unstable renal function, e.g. those with acute kidney injury, the eGFR may not accurately reflect actual GFR. Performed By: #### 2 4323-8, ####[facility] HOSPITALNCLIA [id number] [place] [address] [place] Glucose [Mass/Vol] 89 mg/dL Normal 74-99 [facility] Comment on above: Order Comment: [place] sales Type: BLOOD SPECIMENOrdering Facility: [facility] Address: [address] [place] [address] Result Comment: The [place] Diabetes [employer] (ADA) provides guidance for cutoff values for fasting glucose and random glucose. The ADA defines fasting as no caloric intake for at least 8 hours. Fasting plasma glucose results between 100 to 125 mg/dL indicate increased risk for diabetes (prediabetes).Fasting plasma glucose results greater than or equal to 126 mg/dL meet the criteria for diagnosis of diabetes. In the absence of unequivocal hyperglycemia, results should be confirmed by repeat testing. In a patient with classic symptoms of hyperglycemia or hyperglycemic crisis, random plasma glucose results greater than or equal to 200 mg/dL meet the criteria for diagnosis of diabetes.Reference: Standards of Medical Care in Diabetes 2016, [place] [employer]. Diabetes Care. 2016.39(Suppl 1). Performed By: #### 2 4323-8, ####[facility] HOSPITALNCLI [id number] [place] [address] [place] Potassium [Moles/Vol] 4.1 mmol/L Normal 3.7-5.1 [facility] Comment on above: Order Comment: Speci men Type: BLOOD SPECIMENOrdering Facility: [facility] Address: [address] [place] [address] Performed By: #### 2 432-8, ####[facility]ITALNCUN[facility] [id number] [place] [address] [place] Protein [Mass/Vol] 7.5 g/dL Normal 6.3-8.0 [facility] Comment on above: Order Comment: Speci men Type: BLOOD SPECIMENOrdering Facility: [facility] Address: [address] [place] [address] Performed By: #### 2 432-, ####[facility] HOSPITALLIA [id number] [place] [address] [place] Sodium [Moles/Vol] 137 mmol/L Normal 136-144 [facility] Comment on above: Order Comment: Speci men Type: BLOOD SPECIMENOrdering Facility: [facility] Address: [address] [place] [address] Performed By: #### 2 4323-8, ####[facility]PITALNCLIA [id number] [place] [address] [place] Urea nitrogen [Mass/Vol] 14 mg/dL Normal 7-21 [facility] Comment on above: Order Comment: Speci men Type: BLOOD SPECIMENOrdering Facility: [facility] Address: [address] [place] [address] Performed By: #### 2 4323-8, 24195-5 ####[facility]LEY[facility] HOSPITALWVIETA [id number] [place] [address] [place] Cortis SerPl-mCncon 07-11-19 25 Cortisol [Mass/Vol] 16.6 ug/dL Normal 4.8-19.5 [facility] Comment on above: Order Comment: Speci men Type: BLOOD SPECIMENOrdering Facility: [facility] Address: [address] [place] [address] Result Comment: Prov ided reference range is from 6-10 AM sample collection time.Cortisol Reference Range: 6-10 AM = 4.8-19.5 ug/dL, 4-8 PM = 2.5-11.9 ug/dL Performed By: #### 3 024-7, 3016-3, 2143-6, 2731-8 ####[facility] LABCLIA [id number] [place] [address] [place] Magnesium SerPl-mCncon 07-10 Magnesium [Mass/Vol] 1.8 mg/dL Normal 1.7-2.3 [facility] Comment on above: Order Comment: Speci men Type: BLOOD SPECIMENOrdering Facility: [facility] Address: [address] [place] [address] Performed By: #### 2 4323-8, 36512-1 ####[facility]LEYNOR[facility] HOSPITALVIETA [id number] [place] [address] [place] PTH-Intact SerPl-mCncon 06-0 Parathyrin.intact [Mass/Vol] 100 pg/mL High 15-65 [facility] Comment on above: Order Comment: Speci men Type: BLOOD SPECIMENOrdering Facility: [facility] Address: [address] [place] [address] Performed By: #### 3 024-7, 6-3, 2143-6, 8 ####[facility] LABCLIA [id number] [place] [id number] [place] T4 Free SerPl-mCncon 025 Free T4 [Mass/Vol] 1.8 ng/dL High 0.9-1.7 [facility] Comment on above: Order Comment: Speci men Type: BLOOD SPECIMENOrdering Facility: [facility] Address: [address] [place] [address] Performed By: #### 3 024-7, 6-3, 6, 2730-09 ####[facility] LABCLIA [id number] [place] [address] [place] TSH SerPl-aCncon 07-10-2024 TSH Qn 2.760 m[IU]/L Normal 0.270-4.200 [facility] Comment on above: Order Comment: Speci men Type: BLOOD SPECIMENOrdering Facility: [facility] Address: [address] [place] [address] Performed By: #### 3 024-7, 3016-3, 2142-07, 2730-09 ####[facility] LABIA [id number] [place] [id number] [place] CNPNon 07-09-2024 CNPN Normal [facility] XR CHEST 2V FRONTAL/LATon XR CHEST 2V FRONTAL/LAT Normal [facility] XR Chest PA and Lateralon IMPRESSION: Stable chest. Small bilateral pleural fluid collections Acute Care Nurse: PSCB Transcribe Date/Time: Jul 03 2024 2:38P Dictated by : LINDSEY MINA MD This examination was interpreted and the report reviewed and electronically signed by: LINDSEY MINA MD on Jul 03 2024 2:41PM [facility] DIVISION OF RADIOLOGY * * *Final Report* * * DATE OF EXAM: Jul 03 2024 9:59AM WOX [id number] - XR CHEST 2V FRONTAL/LAT / PROCEDURE REASON: Malignant neoplasm of lower lobe of right lung (HCC) * * * * Physician Interpretation * * * * EXAMINATION: CHEST RADIOGRAPH (2 VIEW FRONTAL & LATERAL) CLINICAL HISTORY: Malignant neoplasm of lower lobe of right lung (HCC) MQ: XC2_6 EXAM DATE/TIME: 07/03/2024 9:59 AM COMPARISON: 05/21/2024 CT 05/27/2024 RESULT: Lines, tubes, and devices: None. Lungs and pleura: Postsurgical right hemithorax. Small bilateral pleural fluid collections, right greater than left. Volume loss in the right hemithorax is stable. No pneumothorax. No new significant collapse or consolidation. Stable apical scarring, right greater than left Cardiomediastinal silhouette: Normal cardiomediastinal silhouette. Bones and soft tissues: Unremarkable. DIVISION OF RADIOLOGY Provider, [facility] - 07/03/2024 * * *Final Report* * * DATE OF EXAM: Jul 03 2024 9:59AM WOX 5291 - XR CHEST 2V FRONTAL/LAT / PROCEDURE REASON: Malignant neoplasm of lower lobe of right lung (HCC) * * * * Physician Interpretation * * * * EXAMINATION: CHEST RADIOGRAPH (2 VIEW FRONTAL & LATERAL) CLINICAL HISTORY: Malignant neoplasm of lower lobe of right lung (HCC) MQ: XC2_6 EXAM DATE/TIME: 07/03/2024 9:59 AM COMPARISON: 05/21/2024 CT 05/27/2024 RESULT: Lines, tubes, and devices: None. Lungs and pleura: Postsurgical right hemithorax. Small bilateral pleural fluid collections, right greater than left. Volume loss in the right hemithorax is stable. No pneumothorax. No new significant collapse or consolidation. Stable apical scarring, right greater than left Cardiomediastinal silhouette: Normal cardiomediastinal silhouette. Bones and soft tissues: Unremarkable. IMPRESSION IMPRESSION: Stable chest. Small bilateral pleural fluid collections Acute Care Nurse: PSCB Transcribe Date/Time: Jul 03 2024 2:38P Dictated by : LINDSEY MINA MD This examination was interpreted and the report reviewed and electronically signed by: LINDSEY MINA MD on Jul 03 2024 2:41PM EST [facility] Radiology Study observation (narrative) [facility] XR Chest PA and LateralOrder ed By: Ccf Provider on 07-03-2024 [facility] Liver ultrasound attenuation by transient elastographyon 07-02-2024 Fibroscan Report Date performed: July 02, 2024 Indication : MASLD Patient fasted 3 hours:Yes Performed by Moni Clark LPN Impression The liver stiffness is 12.5 kPa which corresponds to 56% chance of stage F0-F2 fibrosis. The CAP analysis showed grade S2 of liver steatosis. Stage of liver fibrosis based on above kPa: A 56% chance of stage 0-2 fibrosis A 43% chance of stage 3-4 fibrosis (advanced fibrosis) A 14% chance of stage 4 fibrosis (cirrhosis). A kPa >20 indicates a high likelihood of stage 4 fibrosis/cirrhosis, consider further testing to confirm and refer to hepatology. Recommendations If kPa <8.0, reassess periodically Fib-4 score every 1-2 years if T2DM/Pre-T2DM OR with 2 or more metabolic risk factors Fib-4 score 2-3 years if no T2DM and <2 metabolic risk factors If kPa >8.0, refer to hepatology for further evaluation Result-Findings Technical difficulties: None. Result: The reading was adequate. Please refer to get images report for individual readings Number of readings: 10 IQR %: 8 E (kpa): 12.5 CAP: 267 Interpreted by: Jayshree Lisa APRN, [facility] Fibroscan Fibrosis Risk <7 kPA = F0-F2 97%, F3+F4 3%, F4 <1% <10 kPA = F0-F2 91%, F3+F4 9%, F4 1.3% 10-15 kPA = F0-F2 56%, F3+F4 43%, F4 14% >15 kPA = F0-F2 26%, F3+F4 74%, F4 46% Grade CAP value up to 237 dB/M corresponds to S0 (< 10 % Fat) CAP value between (238 - 258 dB/M) corresponds to S1 (>/= 11 % Fat) CAP value between (259 - 289 dB/M) corresponds to S2 (>/= 33 % Fat) CAP value > 290dB/M corresponds to S3 (>/= 67 % Fat) stage 0 ( S0:< 10 % steatosis) stage 1 (>/= S1: 11%-33% steatosis) stage 2 (>/= S2: 34%-66% steatosis) stage 3 (>/= S3: > 66% steatosis) References Aidan Arrieta Mandeep Q, Bermudez T, Shagufta J, Bermudez H, Morrissey T. Controlled attenuation parameter for assessment of hepatic steatosis grades: a diagnostic meta-analysis. Int J Clin Exp Med. 2015 Nov 15;8(10):82893-25. PMID: 23878881; PMCID: CYY6731089. Tonya Langston, Pierre CHARU, Partha M, Jarrett F, Royce J, Monica O, Randi F, Aryan M, Amy G, Dyan A, Rik E, Ronald L, Jovani G, Sowmya A, Aida U, Calle S, Lynsey P, Darshana V, de Екатерина V, Kayla M, Ollie ROCHA. Refining the Baveno elastography criteria for the definition of compensated advanced chronic liver disease. J Hepatol. 2020;74(5):6201-4883. doi: 10.1016/j.jhep.2020.11.050. Epub 2019Jan 13. PMID: 69494579. Jordon M, Vera B, Kitty M, Almita M, Lia S, Wendy Marsh, Betsey D, Shorty Pierre. AASLD practice guidance on the clinical assessment and management of nonalcoholic fatty liver disease. Hepatology. 2022;77(5):2225-3119. doi:10.1097/HEP.[id number] [facility] Radiology Study observation (narrative) [facility] CNPNon 06-20-2024 CNPN Normal [facility] CBC W Auto Differential pane l (Bld)on 06-19-2024 Basophils (Bld) [#/Vol] 0.06 10*3/uL Normal <0.11 [facility] Comment on above: Order Comment: Speci men Type: BLOOD SPECIMENOrdering Facility: [facility] Address: [address] [place], [place] [address] Performed By: #### 5 7021-8 ####[facility] [id number] [place] [address] [place] Basophils/100 WBC (Bld) 0.7 % Normal [facility] Comment on above: Order Comment: Speci men Type: BLOOD SPECIMENOrdering Facility: [facility] Address: [address] [place] [address] Performed By: #### 5 7021-8 ####[facility]ITALNCUNIV[facility] [id number] [place] [address] [place] Differential cell count method Nom (Bld) Auto Normal [facility] Comment on above: Order Comment: Speci men Type: BLOOD SPECIMENOrdering Facility: [facility] Address: [address] [place] [address] Performed By: #### 5 7021-8 ####[facility]ITALNCUNIVERS[facility] [id number] [place] [address] [place] Eosinophils (Bld) [#/Vol] 0.17 10*3/uL Normal <0.46 [facility] Comment on above: Order Comment: Speci men Type: BLOOD SPECIMENOrdering Facility: [facility] Address: [address] [place] [address] Performed By: #### 5 7021-8 ####[facility] ERA [id number] [place] [address] [place] Eosinophils/100 WBC (Bld) 2.1 % Normal [facility] Comment on above: Order Comment: Speci men Type: BLOOD SPECIMENOrdering Facility: [facility] Address: [address] [place] [address] Performed By: #### 5 7021-8 ####[facility]ITALNCLIA [id number] [place] [address] [place] Erythrocyte distribution width (RBC) [Ratio] 12.1 % Normal 11.5-15.0 [facility] Comment on above: Order Comment: Speci men Type: BLOOD SPECIMENOrdering Facility: [facility] Address: [address] [place] [address] Performed By: #### 5 7021-8 ####[facility] KARINCLIA [id number] [place] [address] [place] Hematocrit (Bld) [Volume fraction] 29.6 % Low 36.0-46.0 [facility] Comment on above: Order Comment: Speci men Type: BLOOD SPECIMENOrdering Facility: [facility] Address: [address] [place] [address] Performed By: #### 5 7021-8 ####[facility] DAVISFARMVILLENCLIA [id number] [place] [address] [place] Hemoglobin (Bld) [Mass/Vol] 10.2 g/dL Low 11.5-15.5 [facility] Comment on above: Order Comment: Speci men Type: BLOOD SPECIMENOrdering Facility: [facility] Address: [address] [place] [address] Performed By: #### 5 7021-8 ####[facility]ITALNCLIA [id number] [place] [address] [place] Immature granulocytes (Bld) [#/Vol] 0.07 10*3/uL Normal <0.10 [facility] Comment on above: Order Comment: Speci men Type: BLOOD SPECIMENOrdering Facility: [facility] Address: [address] [place] [address] Performed By: #### 5 7021-8 ####[facility] DAVISWNCLIA [id number] [place] [address] [place] Immature granulocytes/100 WBC (Bld) 0.9 % Normal [facility] Comment on above: Order Comment: Speci men Type: BLOOD SPECIMENOrdering Facility: [facility] Address: [address] [place] [address] Performed By: #### 5 7021-8 ####[facility]ITALNCLIA [id number] [place] [address] [place] Lymphocytes (Bld) [#/Vol] 1.09 10*3/uL Normal 1.00-4.00 [facility] Comment on above: Order Comment: Speci men Type: BLOOD SPECIMENOrdering Facility: [facility] Address: [address] [place] [address] Performed By: #### 5 7021-8 ####[facility] [id number] [place] [address] [place] Lymphocytes/100 WBC (Bld) 13.6 % Normal [facility] Comment on above: Order Comment: Speci men Type: BLOOD SPECIMENOrdering Facility: [facility] Address: [address] [place] [address] Performed By: #### 5 7021-8 ####[facility] [id number] [place] [address] [place] MCH (RBC) [Entitic mass] 33.2 pg Normal 26.0-34.0 [facility] Comment on above: Order Comment: Speci men Type: BLOOD SPECIMENOrdering Facility: [facility] Address: [address] [place] [address] Performed By: #### 5 7021-8 ####[facility] [id number] [place] [address] [place] MCHC (RBC) [Mass/Vol] 34.5 g/dL Normal 30.5-36.0 [facility] Comment on above: Order Comment: Speci men Type: BLOOD SPECIMENOrdering Facility: [facility] Address: [address] [place] [address] Performed By: #### 5 7021-8 ####[facility] HOSPITALNCLI [id number] [place] [address] [place] MCV (RBC) [Entitic vol] 96.4 fL Normal 80.0-100.0 [facility] Comment on above: Order Comment: Speci men Type: BLOOD SPECIMENOrdering Facility: [facility] Address: [address] [place] [address] Performed By: #### 5 7021-8 ####[facility] [id number] [place] [address] [place] Monocytes (Bld) [#/Vol] 0.71 10*3/uL Normal <0.87 [facility] Comment on above: Order Comment: Speci men Type: BLOOD SPECIMENOrdering Facility: [facility] Address: [address] [place] [address] Performed By: #### 5 7021-8 ####[facility] [id number] [place] [address] [place] Monocytes/100 WBC (Bld) 8.8 % Normal [facility] Comment on above: Order Comment: Speci men Type: BLOOD SPECIMENOrdering Facility: [facility] Address: [address] [place] [address] Performed By: #### 5 7021-8 ####[facility] [id number] [place] [address] [place] Neutrophils (Bld) [#/Vol] 5.93 10*3/uL Normal 1.45-7.50 [facility] Comment on above: Order Comment: Speci men Type: BLOOD SPECIMENOrdering Facility: [facility] Address: [address] [place] [address] Performed By: #### 5 7021-8 ####[facility] [id number] [place] [address] [place] Neutrophils/100 WBC (Bld) 73.9 % Normal [facility] Comment on above: Order Comment: Speci men Type: BLOOD SPECIMENOrdering Facility: [facility] Address: [address] [place] [address] Performed By: #### 5 7021-8 ####[facility] RANJITHWNCLIA [id number] [place] [address] [place] Nucleated RBC (Bld) [#/Vol] 10*3/uL Normal <0.01 [facility] Comment on above: Order Comment: Speci men Type: BLOOD SPECIMENOrdering Facility: [facility] Address: [address] [place] [address] Performed By: #### 5 7021-8 ####[facility]ITALNCLIA [id number] [place] [address] [place] Nucleated RBC/100 WBC (Bld) [Ratio] 0.0 /100 WBC Normal [facility] Comment on above: Order Comment: Speci men Type: BLOOD SPECIMENOrdering Facility: [facility] Address: [address] [place] [address] Performed By: #### 5 7021-8 ####[facility]ITALNCLIA [id number] [place] [address] [place] Platelet mean volume (Bld) [Entitic vol] 9.1 fL Normal 9.0-12.7 [facility] Comment on above: Order Comment: Speci men Type: BLOOD SPECIMENOrdering Facility: [facility] Address: [address] [place] [address] Performed By: #### 5 7021-8 ####[facility]ITALNCLIA [id number] [place] [address] [place] Platelets (Bld) [#/Vol] 231 10*3/uL Normal 150-400 [facility] Comment on above: Order Comment: Speci men Type: BLOOD SPECIMENOrdering Facility: [facility] Address: [address] [place] [address] Performed By: #### 5 7021-8 ####[facility]NCUN[facility] [id number] [place] [address] [place] RBC (Bld) [#/Vol] 3.07 10*6/uL Low 3.90-5.20 [facility] Comment on above: Order Comment: Speci men Type: BLOOD SPECIMENOrdering Facility: [facility] Address: [address] [place] [address] Performed By: #### 5 7021-8 ####[facility] ERIzabella [id number] [place] [address] [place] WBC (Bld) [#/Vol] 8.03 10*3/uL Normal 3.70-11.00 [facility] Comment on above: Order Comment: Speci men Type: BLOOD SPECIMENOrdering Facility: [facility] Address: [address] [place] [address] Performed By: #### 5 7021-8 ####[facility] ERIzabella [id number] [place] [address] [place] CNOVSPon 06-19-2024 CNOVSP Normal [facility] CNPNon 06-19-2024 CNPN Normal [facility] Comprehensive metabolic 2000 panelon 06-19-2024 Albumin [Mass/Vol] 4.0 g/dL Normal 3.9-4.9 [facility] Comment on above: Order Comment: Speci men Type: BLOOD SPECIMENOrdering Facility: [facility] Address: [address] [place] [address] Performed By: #### 2 4323-8, 22657-8 ####[facility]ITALNCLIA [id number] [place] [address] [place] ALP [Catalytic activity/Vol] 216 U/L High 34-123 [facility] Comment on above: Order Comment: Speci men Type: BLOOD SPECIMENOrdering Facility: [facility] Address: [address] [place] [address] Performed By: #### 2 4323-8, ####[facility] MILLTOWNCLIA [id number] [place] [address] [place] ALT [Catalytic activity/Vol] 27 U/L Normal 7-38 [facility] Comment on above: Order Comment: Speci men Type: BLOOD SPECIMENOrdering Facility: [facility] Address: [address] [place] [address] Performed By: #### 2 432-8, ####[facility] MILLTOWNCLIA [id number] [place] [address] [place] Anion gap [Moles/Vol] 14 mmol/L Normal 8-15 [facility] Comment on above: Order Comment: Speci men Type: BLOOD SPECIMENOrdering Facility: [facility] Address: [address] [place] [address] Performed By: #### 2 432-8, ####[facility] H[facility]PITALWNCLIA [id number] [place] [address] [place] AST [Catalytic activity/Vol] 33 U/L Normal 13-35 [facility] Comment on above: Order Comment: Speci men Type: BLOOD SPECIMENOrdering Facility: [facility] Address: [address] [place] [address] Performed By: #### 2 432-8, ####[facility] MILLTOWNCLIA [id number] [place] [address] [place] Bilirubin [Mass/Vol] 0.2 mg/dL Normal 0.2-1.3 [facility] Comment on above: Order Comment: Speci men Type: BLOOD SPECIMENOrdering Facility: [facility] Address: [address] [place] [address] Performed By: #### 2 4323-8, ####[facility] MILLTOWNCLIA [id number] [place] [address] [place] Calcium [Mass/Vol] 8.9 mg/dL Normal 8.5-10.2 [facility] Comment on above: Order Comment: Speci men Type: BLOOD SPECIMENOrdering Facility: [facility] Address: [address] [place] [address] Performed By: #### 2 4323-8, 82351-6 ####[facility] MILLWVIETA [id number] [place] [address] [place] Chloride [Moles/Vol] 102 mmol/L Normal 98-107 [facility] Comment on above: Order Comment: Speci men Type: BLOOD SPECIMENOrdering Facility: [facility] Address: [address] [place] [address] Performed By: #### 2 4323-8, ####[facility] HOSPITALLALILIA [id number] [place] [address] [place] CO2 [Moles/Vol] 23 mmol/L Normal 22-30 [facility] Comment on above: Order Comment: Speci men Type: BLOOD SPECIMENOrdering Facility: [facility] Address: [address] [place] [address] Performed By: #### 2 4323-8, ####[facility] HOSPITALTARIQ [id number] [place] [address] [place] Creatinine [Mass/Vol] 1.11 mg/dL High 0.58-0.96 [facility] Comment on above: Order Comment: Speci men Type: BLOOD SPECIMENOrdering Facility: [facility] Address: [address] [place] [address] Performed By: #### 2 4323-8, ####[facility]OSPITALNCLIA [id number] [place] [address] [place] Creatinine and Glomerular filtration rate.predicted panel (S/P/Bld) 56 mL/min/1.73m??? Low >=60 [facility] Comment on above: Order Comment: [place] sales Type: BLOOD SPECIMENOrdering Facility: [facility] Address: [address] [place] [address] Result Comment: Ann mated Glomerular Filtration Rate (eGFR) is calculated using the 2020 CKD-EPI creatinine equation. This equation utilizes serum creatinine, sex, and age as parameters. The creatinine assay has traceable calibration to isotope dilution-mass spectrometry. Refer to KDIGO guidelines for clinical interpretation. In patients with unstable renal function, e.g. those with acute kidney injury, the eGFR may not accurately reflect actual GFR. Performed By: #### 2 4323-8, 73121-6 ####[facility] [id number] [place] [address] [place] Glucose [Mass/Vol] 88 mg/dL Normal 74-99 [facility] Comment on above: Order Comment: [employer] [employer] Type: BLOOD SPECIMENOrdering Facility: [facility] Address: [address] [place] [address] Result Comment: The [place] Diabetes [employer] (ADA) provides guidance for cutoff values for fasting glucose and random glucose. The ADA defines fasting as no caloric intake for at least 8 hours. Fasting plasma glucose results between 100 to 125 mg/dL indicate increased risk for diabetes (prediabetes).Fasting plasma glucose results greater than or equal to 126 mg/dL meet the criteria for diagnosis of diabetes. In the absence of unequivocal hyperglycemia, results should be confirmed by repeat testing. In a patient with classic symptoms of hyperglycemia or hyperglycemic crisis, random plasma glucose results greater than or equal to 200 mg/dL meet the criteria for diagnosis of diabetes.Reference: Standards of Medical Care in Diabetes 2016, [place] [employer]. Diabetes Care. 2016.39(Suppl 1). Performed By: #### 2 4323-8, 78415-6 ####[facility] HOSPITALLIA [id number] [place] [address] [place] Potassium [Moles/Vol] 3.7 mmol/L Normal 3.7-5.1 [facility] Comment on above: Order Comment: Speci men Type: BLOOD SPECIMENOrdering Facility: [facility] Address: [address] [place], [place] [address] Performed By: #### 2 4323-8, ####[facility] DAVISBERENICELIA [id number] [place] [address] [place] Protein [Mass/Vol] 7.3 g/dL Normal 6.3-8.0 [facility] Comment on above: Order Comment: Speci men Type: BLOOD SPECIMENOrdering Facility: [facility] Address: [address] [place], [place] [address] Performed By: #### 2 4323-8, ####[facility] DAVISFARMVILLETARIQ [id number] [place] [address] [place] Sodium [Moles/Vol] 139 mmol/L Normal 136-144 [facility] Comment on above: Order Comment: Speci men Type: BLOOD SPECIMENOrdering Facility: [facility] Address: [address] [place], [place] [address] Performed By: #### 2 4323-8, ####[facility] DAVISMARCITARIQ [id number] [place] [address] [place] Urea nitrogen [Mass/Vol] 17 mg/dL Normal 7-21 [facility] Comment on above: Order Comment: Speci men Type: BLOOD SPECIMENOrdering Facility: [facility] Address: [address] [place], [place] [address] Performed By: #### 2 4323-8, ####[facility] HOSPITALVIETA [id number] [place] [address] [place] Cortis SerPl-mCncon 06-20-19 25 Cortisol [Mass/Vol] 17.8 ug/dL Normal 4.8-19.5 [facility] Comment on above: Order Comment: Speci men Type: BLOOD SPECIMENOrdering Facility: [facility] Address: [address] [place], [place] [address] Result Comment: Prov ided reference range is from 6-10 AM sample collection time.Cortisol Reference Range: 6-10 AM = 4.8-19.5 ug/dL, 4-8 PM = 2.5-11.9 ug/dL Performed By: #### 3 016-3, 7, 2142-07 ####[facility] LABCLIA [id number] [place] [id number] [place] Magnesium SerPl-mCncon 06-19 Magnesium [Mass/Vol] 1.4 mg/dL Low 1.7-2.3 [facility] Comment on above: Order Comment: Speci men Type: BLOOD SPECIMENOrdering Facility: [facility] Address: [address] [place] [address] Performed By: #### 2 4323-8, 27445-6 ####[facility] [id number] [place] [address] [place] T4 Free SerPl-mCncon 025 Free T4 [Mass/Vol] 1.2 ng/dL Normal 0.9-1.7 [facility] Comment on above: Order Comment: Speci men Type: BLOOD SPECIMENOrdering Facility: [facility] Address: [address] [place] [address] Performed By: #### 3 016-3, 7, 2142-07 ####[facility] LABCLIA [id number] [place] [id number] [place] TSH SerPl-aCncon 06-19-2024 TSH Qn 33.600 m[IU]/L High 0.270-4.200 [facility] Comment on above: Order Comment: Speci men Type: BLOOD SPECIMENOrdering Facility: [facility] Address: [address] [place] [address] Performed By: #### 3 016-3, 7, 2142-6 ####[facility] LABCLIA [id number] [place] [id number] [place] TSH SerPl-aCncon 06-10-2024 TSH Qn 58.800 m[IU]/L High 0.270-4.200 [facility] Comment on above: Order Comment: Speci men Type: BLOOD SPECIMENOrdering Facility: [facility] Address: [address] [place] [address] Performed By: #### 3 016-3 ####[facility] LABCLIA [id number] [place] [id number] [place] CNOVon 06-04-2024 CNOV Normal [facility] CNPNon 06-02-2024 CNPN Normal [facility] CBC W Auto Differential pane l (Bld)on 05-30-2024 Basophils (Bld) [#/Vol] 0.06 10*3/uL Normal <0.11 [facility] Comment on above: Order Comment: Speci men Type: BLOOD SPECIMENOrdering Facility: [facility] Address: [address] [place] [address] Performed By: #### 5 7021-8 ####[facility] HOSPITALTARIQ [id number] [place] [address] [place] Basophils/100 WBC (Bld) 0.6 % Normal [facility] Comment on above: Order Comment: Speci men Type: BLOOD SPECIMENOrdering Facility: [facility] Address: [address] [place] [address] Performed By: #### 5 7021-8 ####[facility] HOSPITALTARIQ [id number] [place] [address] [place] Differential cell count method Nom (Bld) Auto Normal [facility] Comment on above: Order Comment: Speci men Type: BLOOD SPECIMENOrdering Facility: [facility] Address: [address] [place] [address] Performed By: #### 5 7021-8 ####[facility] MILLWNCLIA [id number] [place] [address] [place] Eosinophils (Bld) [#/Vol] 0.16 10*3/uL Normal <0.46 [facility] Comment on above: Order Comment: Speci men Type: BLOOD SPECIMENOrdering Facility: [facility] Address: [address] [place] [address] Performed By: #### 5 7021-8 ####[facility] HOSPITALLIA [id number] [place] [address] [place] Eosinophils/100 WBC (Bld) 1.5 % Normal [facility] Comment on above: Order Comment: Speci men Type: BLOOD SPECIMENOrdering Facility: [facility] Address: [address] [place] [address] Performed By: #### 5 7021-8 ####[facility] HOSPITALLIA [id number] [place] [address] [place] Erythrocyte distribution width (RBC) [Ratio] 12.4 % Normal 11.5-15.0 [facility] Comment on above: Order Comment: Speci men Type: BLOOD SPECIMENOrdering Facility: [facility] Address: [address] [place] [address] Performed By: #### 5 7021-8 ####[facility]ITALWNCLIA [id number] [address] [place] Hematocrit (Bld) [Volume fraction] 29.0 % Low 36.0-46.0 [facility] Comment on above: Order Comment: Speci men Type: BLOOD SPECIMENOrdering Facility: [facility] Address: [address] [place] [address] Performed By: #### 5 7021-8 ####[facility] HOSPITALNCLIA [id number] [place] [address] [place] Hemoglobin (Bld) [Mass/Vol] 9.9 g/dL Low 11.5-15.5 [facility] Comment on above: Order Comment: Speci men Type: BLOOD SPECIMENOrdering Facility: [facility] Address: [address] [place] [address] Performed By: #### 5 7021-8 ####[facility] HOSPITALNCA [id number] [place] [address] [place] Immature granulocytes (Bld) [#/Vol] 0.16 10*3/uL High <0.10 [facility] Comment on above: Order Comment: Speci men Type: BLOOD SPECIMENOrdering Facility: [facility] Address: [address] [place] [address] Performed By: #### 5 7021-8 ####[facility] [id number] [place] [address] [place] Immature granulocytes/100 WBC (Bld) 1.5 % Normal [facility] Comment on above: Order Comment: Speci men Type: BLOOD SPECIMENOrdering Facility: [facility] Address: [address] [place] [address] Performed By: #### 5 7021-8 ####[facility] [id number] [place] [address] [place] Lymphocytes (Bld) [#/Vol] 1.26 10*3/uL Normal 1.00-4.00 [facility] Comment on above: Order Comment: Speci men Type: BLOOD SPECIMENOrdering Facility: [facility] Address: [address] [place] [address] Performed By: #### 5 7021-8 ####[facility] HOSPITALNCLIA [id number] [place] [address] [place] Lymphocytes/100 WBC (Bld) 11.9 % Normal [facility] Comment on above: Order Comment: Speci men Type: BLOOD SPECIMENOrdering Facility: [facility] Address: [address] [place] [address] Performed By: #### 5 7021-8 ####[facility] ERINN [id number] [place] [address] [place] MCH (RBC) [Entitic mass] 34.0 pg Normal 26.0-34.0 [facility] Comment on above: Order Comment: Speci men Type: BLOOD SPECIMENOrdering Facility: [facility] Address: [address] [place] [address] Performed By: #### 5 7021-8 ####[facility] HOSPITALNCTHIAGOIzabella [id number] [place] [address] [place] MCHC (RBC) [Mass/Vol] 34.1 g/dL Normal 30.5-36.0 [facility] Comment on above: Order Comment: Speci men Type: BLOOD SPECIMENOrdering Facility: [facility] Address: [address] [place] [address] Performed By: #### 5 7021-8 ####[facility] HOSPITALNCA [id number] [place] [address] [place] MCV (RBC) [Entitic vol] 99.7 fL Normal 80.0-100.0 [facility] Comment on above: Order Comment: Speci men Type: BLOOD SPECIMENOrdering Facility: [facility] Address: [address] [place], [place] [address] Performed By: #### 5 7021-8 ####[facility] HOSPITALNCLIA [id number] [place] [address] [place] Monocytes (Bld) [#/Vol] 0.92 10*3/uL High <0.87 [facility] Comment on above: Order Comment: Speci men Type: BLOOD SPECIMENOrdering Facility: [facility] Address: [address] [place] [address] Performed By: #### 5 7021-8 ####[facility] MILLWNCLIA [id number] [place] [address] [place] Monocytes/100 WBC (Bld) 8.7 % Normal [facility] Comment on above: Order Comment: Speci men Type: BLOOD SPECIMENOrdering Facility: [facility] Address: [address] [place] [address] Performed By: #### 5 7021-8 ####[facility] HOSPITALLIA [id number] [place] [address] [place] Neutrophils (Bld) [#/Vol] 8.06 10*3/uL High 1.45-7.50 [facility] Comment on above: Order Comment: Speci men Type: BLOOD SPECIMENOrdering Facility: [facility] Address: [address] [place] [address] Performed By: #### 5 7021-8 ####[facility] HOSPITALLIA [id number] [place] [address] [place] Neutrophils/100 WBC (Bld) 75.8 % Normal [facility] Comment on above: Order Comment: Speci men Type: BLOOD SPECIMENOrdering Facility: [facility] Address: [address] [place] [address] Performed By: #### 5 7021-8 ####[facility]OSPITALLIA [id number] [place] [address] [place] Nucleated RBC (Bld) [#/Vol] 10*3/uL Normal <0.01 [facility] Comment on above: Order Comment: Speci men Type: BLOOD SPECIMENOrdering Facility: [facility] Address: [address] [place] [address] Performed By: #### 5 7021-8 ####[facility] HOSPITALNCLIA [id number] [place] [address] [place] Nucleated RBC/100 WBC (Bld) [Ratio] 0.0 /100 WBC Normal [facility] Comment on above: Order Comment: Speci men Type: BLOOD SPECIMENOrdering Facility: [facility] Address: [address] [place] [address] Performed By: #### 5 7021-8 ####[facility] HOSPITALNCA [id number] [place] [address] [place] Platelet mean volume (Bld) [Entitic vol] 9.4 fL Normal 9.0-12.7 [facility] Comment on above: Order Comment: Speci men Type: BLOOD SPECIMENOrdering Facility: [facility] Address: [address] [place] [address] Performed By: #### 5 7021-8 ####[facility] HOSPITALNCA [id number] [place] [address] [place] Platelets (Bld) [#/Vol] 209 10*3/uL Normal 150-400 [facility] Comment on above: Order Comment: Speci men Type: BLOOD SPECIMENOrdering Facility: [facility] Address: [address] [place] [address] Performed By: #### 5 7021-8 ####[facility] HOSPITALNCA [id number] [place] [address] [place] RBC (Bld) [#/Vol] 2.91 10*6/uL Low 3.90-5.20 [facility] Comment on above: Order Comment: Speci men Type: BLOOD SPECIMENOrdering Facility: [facility] Address: [address] [place] [address] Performed By: #### 5 7021-8 ####[facility] HOSPITALNCLIA [id number] [place] [address] [place] WBC (Bld) [#/Vol] 10.62 10*3/uL Normal 3.70-11.00 [facility] Comment on above: Order Comment: Speci men Type: BLOOD SPECIMENOrdering Facility: [facility] Address: [address] [place] [address] Performed By: #### 5 7021-8 ####[facility] HOSPITALNCUNIVERS[facility] [id number] [place] [address] [place] Comprehensive metabolic 2000 panelon 05-30-2024 Albumin [Mass/Vol] 4.1 g/dL Normal 3.9-4.9 [facility] Comment on above: Order Comment: Speci men Type: BLOOD SPECIMENOrdering Facility: [facility] Address: [address] [place] [address] Performed By: #### 2 4323-8 ####[facility] [id number] [place] [address] [place] ALP [Catalytic activity/Vol] 277 U/L High 34-123 [facility] Comment on above: Order Comment: Speci men Type: BLOOD SPECIMENOrdering Facility: [facility] Address: [address] [place] [address] Performed By: #### 2 4323-8 ####[facility]PITALNCUNIVERSITY [facility] [id number] [place] [address] [place] ALT [Catalytic activity/Vol] 31 U/L Normal 7-38 [facility] Comment on above: Order Comment: Speci men Type: BLOOD SPECIMENOrdering Facility: [facility] Address: [address] [place] [address] Performed By: #### 2 4323-8 ####[facility] [id number] [place] [address] [place] Anion gap [Moles/Vol] 8 mmol/L Normal 8-15 [facility] Comment on above: Order Comment: Speci men Type: BLOOD SPECIMENOrdering Facility: [facility] Address: [address] [place] [address] Performed By: #### 2 4323-8 ####[facility] MILLTOWNCLIA [id number] [place] [address] [place] AST [Catalytic activity/Vol] 30 U/L Normal 13-35 [facility] Comment on above: Order Comment: Speci men Type: BLOOD SPECIMENOrdering Facility: [facility] Address: [address] [place] [address] Performed By: #### 2 4323-8 ####[facility] HOSPITALWNCLIA [id number] [place] [address] [place] Bilirubin [Mass/Vol] 0.2 mg/dL Normal 0.2-1.3 [facility] Comment on above: Order Comment: Speci men Type: BLOOD SPECIMENOrdering Facility: [facility] Address: [address] [place] [address] Performed By: #### 2 4323-8 ####[facility] HOSPITALWNCLIA [id number] [place] [address] [place] Calcium [Mass/Vol] 8.7 mg/dL Normal 8.5-10.2 [facility] Comment on above: Order Comment: Speci men Type: BLOOD SPECIMENOrdering Facility: [facility] Address: [address] [place] [address] Performed By: #### 2 4323-8 ####[facility] MILLTOWNCLIA [id number] [place] [address] [place] Chloride [Moles/Vol] 99 mmol/L Normal 98-107 [facility] Comment on above: Order Comment: Speci men Type: BLOOD SPECIMENOrdering Facility: [facility] Address: [address] [place] [address] Performed By: #### 2 4323-8 ####[facility] MILLWNCLIA [id number] [place] [address] [place] CO2 [Moles/Vol] 28 mmol/L Normal 22-30 [facility] Comment on above: Order Comment: Kushali men Type: BLOOD SPECIMENOrdering Facility: [facility] Address: [address] [place] [address] Performed By: #### 2 4323-8 ####[facility] [id number] [place] [address] [place] Creatinine [Mass/Vol] 1.28 mg/dL High 0.58-0.96 [facility] Comment on above: Order Comment: Speci men Type: BLOOD SPECIMENOrdering Facility: [facility] Address: [address] [place] [address] Performed By: #### 2 4323-8 ####[facility]PITALNCUNIVERS[facility] [id number] [place] [address] [place] Creatinine and Glomerular filtration rate.predicted panel (S/P/Bld) 47 mL/min/1.73m??? Low >=60 [facility] Comment on above: Order Comment: Kushali men Type: BLOOD SPECIMENOrdering Facility: [facility] Address: [address] [place] [address] Result Comment: Ann mated Glomerular Filtration Rate (eGFR) is calculated using the 2020 CKD-EPI creatinine equation. This equation utilizes serum creatinine, sex, and age as parameters. The creatinine assay has traceable calibration to isotope dilution-mass spectrometry. Refer to KDIGO guidelines for clinical interpretation. In patients with unstable renal function, e.g. those with acute kidney injury, the eGFR may not accurately reflect actual GFR. Performed By: #### 2 4323-8 ####[facility] [id number] [place] [address] [place] Glucose [Mass/Vol] 81 mg/dL Normal 74-99 [facility] Comment on above: Order Comment: Kushali men Type: BLOOD SPECIMENOrdering Facility: [facility] Address: [address] [place] [address] [place] [address] Result Comment: The [place] Diabetes [employer] (ADA) provides guidance for cutoff values for fasting glucose and random glucose. The ADA defines fasting as no caloric intake for at least 8 hours. Fasting plasma glucose results between 100 to 125 mg/dL indicate increased risk for diabetes (prediabetes).Fasting plasma glucose results greater than or equal to 126 mg/dL meet the criteria for diagnosis of diabetes. In the absence of unequivocal hyperglycemia, results should be confirmed by repeat testing. In a patient with classic symptoms of hyperglycemia or hyperglycemic crisis, random plasma glucose results greater than or equal to 200 mg/dL meet the criteria for diagnosis of diabetes.Reference: Standards of Medical Care in Diabetes 2016, [place] [employer]. Diabetes Care. 2016.39(Suppl 1). Performed By: #### 2 4323-8 ####[facility] HOSPITALLALIUNIVERSITY [facility] [id number] [place] [address] [place] Potassium [Moles/Vol] 4.6 mmol/L Normal 3.7-5.1 [facility] Comment on above: Order Comment: Speci men Type: BLOOD SPECIMENOrdering Facility: [facility] Address: [address] [place] [id number] Performed By: #### 2 4323-8 ####[facility] [id number] [place] [address] [place] Protein [Mass/Vol] 7.7 g/dL Normal 6.3-8.0 [facility] Comment on above: Order Comment: Speci men Type: BLOOD SPECIMENOrdering Facility: [facility] Address: [address] [place] [address] Performed By: #### 2 4323-8 ####[facility] [id number] [place] [address] [place] Sodium [Moles/Vol] 135 mmol/L Low 136-144 [facility] Comment on above: Order Comment: Speci men Type: BLOOD SPECIMENOrdering Facility: [facility] Address: [address] [place] [address] Performed By: #### 2 4323-8 ####[facility] REHABILITATIONDIANA CANNONTOWNCLIA [id number] [place] [address] [place] Urea nitrogen [Mass/Vol] 12 mg/dL Normal 7-21 [facility] Comment on above: Order Comment: Speci men Type: BLOOD SPECIMENOrdering Facility: [facility] Address: [address] [place] [address] Performed By: #### 2 4323-8 ####[facility] REHABILITATIONDIANA KASPERWNCLIA [id number] [place] [address] [place] Basic Metabolic Profile (BMP )on 05-27-2024 BUN/CRE 12.8 RATIO Normal 10-20 [facility] Comment on above: Performed By: #### L 501.4021, L300.8000, L300.4310, L500.2500, L300.3900, L100.0100 #### [facility] [address] [place], [address] Calcium [Mass/Vol] 8.9 mg/dL Normal 7.6-11.0 [facility] Comment on above: Performed By: #### L 501.4021, L300.8000, L300.4310, L500.2500, L300.3900, L100.0100 #### [facility] [address] [place], [address] Chloride [Moles/Vol] 99 mmol/L Normal 98-108 [facility] Comment on above: Performed By: #### L 501.4021, L300.8000, L300.4310, L500.2500, L300.3900, L100.0100 #### [facility] [address] [place], [address] CO2 [Moles/Vol] 25.2 mmol/L Normal 21.0-32.0 [facility] Comment on above: Performed By: #### L 501.4021, L300.8000, L300.4310, L500.2500, L300.3900, L100.0100 #### [facility] [address] [place], [address] Creatinine [Mass/Vol] 1.20 mg/dL Normal 0.70-1.20 [facility] Comment on above: Performed By: #### L 501.4021, L300.8000, L300.4310, L500.2500, L300.3900, L100.0100 #### [facility] [address] [place], [address] ECRCL 50.08 ml/min Normal 50-250 [facility] Comment on above: Performed By: #### L 501.4021, L300.8000, L300.4310, L500.2500, L300.3900, L100.0100 #### [facility] [address] [place], [address] GAP 11 Normal 5-15 [facility] Comment on above: Performed By: #### L 501.4021, L300.8000, L300.4310, L500.2500, L300.3900, L100.0100 #### [facility] [address] [place], [address] GFR/1.73 sq M.predicted among non-blacks MDRD (S/P/Bld) [Vol rate/Area] 51 mL/min/{1.73_m2} Low >60 [facility] Comment on above: Result Comment: mL/m in/1.73m2 CKD-EPI Creatinine Equation (2020) Performed By: #### L 501.4021, L300.8000, L300.4310, L500.2500, L300.3900, L100.0100 #### [facility] [address] [place], [address] Glucose [Mass/Vol] 93 mg/dL Normal 70-99 [facility] Comment on above: Performed By: #### L 501.4021, L300.8000, L300.4310, L500.2500, L300.3900, L100.0100 #### [facility] [address] [place], [address] Potassium [Moles/Vol] 4.3 mmol/L Normal 3.3-5.1 [facility] Comment on above: Performed By: #### L 501.4021, L300.8000, L300.4310, L500.2500, L300.3900, L100.0100 #### [facility] [address] [place], [address] Sodium [Moles/Vol] 135 mmol/L Normal 133-145 [facility] Comment on above: Performed By: #### L 501.4021, L300.8000, L300.4310, L500.2500, L300.3900, L100.0100 #### [facility] [address] [place], [address] Urea nitrogen [Mass/Vol] 15 mg/dL Normal 4-19 [facility] Comment on above: Performed By: #### L 501.4021, L300.8000, L300.4310, L500.2500, L300.3900, L100.0100 #### [facility] [address] [place], [address] CBC W/Diff, Automatedon 05-07 Absolute Lymph 1.00 X10 3/uL Normal 0.83-4.51 [facility] Comment on above: Performed By: #### L 501.4021, L300.8000, L300.4310, L500.2500, L300.3900, L100.0100 #### [facility] [address] [place], [address] Absolute Neut 12.2 X10 3/uL High 2.0-7.7 [facility] Comment on above: Performed By: #### L 501.4021, L300.8000, L300.4310, L500.2500, L300.3900, L100.0100 #### [facility] [address] [place], [address] Basophils/100 WBC (Bld) 0.3 % Normal 0-1 [facility] Comment on above: Performed By: #### L 501.4021, L300.8000, L300.4310, L500.2500, L300.3900, L100.0100 #### [facility] [address] [place], [address] Eosinophils/100 WBC (Bld) 0.5 % Normal 0-5 [facility] Comment on above: Performed By: #### L 501.4021, L300.8000, L300.4310, L500.2500, L300.3900, L100.0100 #### [facility] [address] [place], [address] Erythrocyte distribution width (RBC) [Ratio] 12.6 % Normal 11.6-14.6 [facility] Comment on above: Performed By: #### L 501.4021, L300.8000, L300.4310, L500.2500, L300.3900, L100.0100 #### [facility] [address] [place], [address] Hematocrit (Bld) [Volume fraction] 30.8 % Low 37-47 [facility] Comment on above: Performed By: #### L 501.4021, L300.8000, L300.4310, L500.2500, L300.3900, L100.0100 #### [facility] [address] [place], [address] Hemoglobin (Bld) [Mass/Vol] 10.5 g/dL Low 12.0-15.0 [facility] Comment on above: Performed By: #### L 501.4021, L300.8000, L300.4310, L500.2500, L300.3900, L100.0100 #### [facility] [address] [place], [address] IG% 1.200 High 0.0-0.9 [facility] Comment on above: Result Comment: IG% - Immature Granulocytes (promyelocytes, myelocytes and metamyelocytes) > 1% indicates that a LEFT SHIFT is Present. Performed By: #### L 501.4021, L300.8000, L300.4310, L500.2500, L300.3900, L100.0100 #### [facility] [address] [place], [address] Lymphocytes/100 WBC (Bld) 6.9 % Low 19-41 [facility] Comment on above: Performed By: #### L 501.4021, L300.8000, L300.4310, L500.2500, L300.3900, L100.0100 #### [facility] [address] [place], [address] MCH (RBC) [Entitic mass] 34.1 pg High 27.0-32.0 [facility] Comment on above: Performed By: #### L 501.4021, L300.8000, L300.4310, L500.2500, L300.3900, L100.0100 #### [facility] [address] [place], [address] MCHC (RBC) [Mass/Vol] 34.1 g/dL Normal 32-36 [facility] Comment on above: Performed By: #### L 501.4021, L300.8000, L300.4310, L500.2500, L300.3900, L100.0100 #### [facility] [address] [place], [address] MCV (RBC) [Entitic vol] 100.0 fL High 81-99 [facility] Comment on above: Performed By: #### L 501.4021, L300.8000, L300.4310, L500.2500, L300.3900, L100.0100 #### [facility] [address] [place], [address] Monocytes/100 WBC (Bld) 6.4 % Normal 0-10 [facility] Comment on above: Performed By: #### L 501.4021, L300.8000, L300.4310, L500.2500, L300.3900, L100.0100 #### [facility] [address] [place], [address] Neutrophils/100 WBC (Bld) 84.7 % High 47-70 [facility] Comment on above: Performed By: #### L 501.4021, L300.8000, L300.4310, L500.2500, L300.3900, L100.0100 #### [facility] [address] [place], [address] Nucleated RBC (Bld) [#/Vol] 0 10*3/uL Normal 0-5 [facility] Comment on above: Performed By: #### L 501.4021, L300.8000, L300.4310, L500.2500, L300.3900, L100.0100 #### [facility] [address] [place], [address] Platelet mean volume (Bld) [Entitic vol] 9.4 fL Normal 6.2-12.0 [facility] Comment on above: Performed By: #### L 501.4021, L300.8000, L300.4310, L500.2500, L300.3900, L100.0100 #### [facility] [address] [place], [address] Platelets (Bld) [#/Vol] 247 10*3/uL Normal 150-450 [facility] Comment on above: Performed By: #### L 501.4021, L300.8000, L300.4310, L500.2500, L300.3900, L100.0100 #### [facility] [address] [place], [address] RBC (Bld) [#/Vol] 3.08 10*6/uL Low 4.2-5.4 [facility] Comment on above: Performed By: #### L 501.4021, L300.8000, L300.4310, L500.2500, L300.3900, L100.0100 #### [facility] [address] [place], [address] RDW SD 46.1 fl High 35.1-43.9 [facility] Comment on above: Performed By: #### L 501.4021, L300.8000, L300.4310, L500.2500, L300.3900, L100.0100 #### [facility] [address] [place], [address] WBC (Bld) [#/Vol] 14.4 10*3/uL High 4.4-11.0 [facility] Comment on above: Performed By: #### L 501.4021, L300.8000, L300.4310, L500.2500, L300.3900, L100.0100 #### [facility] [address] [place], [address] CTA Chest W/WO Contraston CTA Chest W/WO Contrast [facility] Imaging Services [address] [place] [address] CTA Chest W/WO Contrast MR#: [id number] Acct: [id number] Name: VICKEY SCHWARTZ Rep #: [id number] : 1960 F 64 From: Rufino Churchill MD PCP: Dr. Camilo Jonas MD Status: [facility] ER Study: CTA Chest W/WO Contrast Date of Exam: 05/27/24 Exam# [id number] Ordering Dr: Pablo Churchill DO EXAM: CT Angiography Chest Without and With Intravenous Contrast CLINICAL INDICATION: CHEST PAIN, ELEVATED DIMER TECHNIQUE: Axial computed tomographic angiography images of the chest without and with intravenous contrast. This CT exam was performed using one or more of the following dose reduction techniques: automated exposure control, adjustment of the mA and/or kV according to patient size, and/or use of iterative reconstruction technique. MIP reconstructed images were created and reviewed. COMPARISON: No relevant prior studies available. FINDINGS: LIMITATIONS: Suboptimal opacification of the pulmonary arteries. PULMONARY ARTERIES: No pulmonary embolism is identified. Some of the distal pulmonary arteries cannot be evaluated due to suboptimal opacification. AORTA: No acute findings. No thoracic aortic aneurysm. LUNGS AND PLEURAL SPACES: Right pleural effusion with compressive atelectasis. Partial consolidation of the right lower lobe. Pneumonia can not be excluded. Lung emphysema/COPD. HEART: Unremarkable. No cardiomegaly. No significant pericardial effusion. No evidence of RV dysfunction. BONES/JOINTS: No acute fracture. No dislocation. SOFT TISSUES: Unremarkable. LYMPH NODES: Unremarkable. No enlarged lymph nodes. LIVER: Fatty liver. CT/CTA Chest W/WO Contrast IMPRESSION: 1. No pulmonary embolism is identified. Some of the distal pulmonary arteries cannot be evaluated due to suboptimal opacification. 2. Right pleural effusion with compressive atelectasis. Partial consolidation of the right lower lobe. Pneumonia can not be excluded. Reading Location: [facility] CC: Dr. Pablo Churchill DO; Dr. Camilo Jonas MD Acute Care Nurse: Signed Normal [facility] D-Dimer Quantitative (DVT/PE )on 05-27-2024 D-DIMER QUANT 5.12 FEU/ug/m Invalid Interpretation Code 0.27-0.49 [facility] Comment on above: Result Comment: D-Di fannie ELEVATED (>0.49): Additional studies and clinical assessments are indicated to conclude diagnosis of: Deep Vein Thrombosis (DVT) or Pulmonary Embolism (PE) CRITICAL VALUE CALLED TO Padmini HOYOS 05/27/24 1301 Sayda Bravo. RESULTS READ BACK BY SAME. Performed By: #### L 501.4021, L300.8000, L300.4310, L500.2500, L300.3900, L100.0100 #### [facility] [address] [place], [address] Emergency Department Summary on 05-27-[address] [facility] Medical Records Department [address] [place] [address] Emergency Department Summary 05/27/24 MR#: [id number] Acct: [id number] Name: VICKEY SCHWARTZ Rep #: [id number] : 1960 64 From: Pablo Montemayor PCP: Dr. Camilo Jonas MD Status:REG ER Location: ED HPI History of Present Illness Chief Complaint: Chest Pain Informant: patient and family Narrative Narrative: Left-sided chest pain waking at 2:30 AM mild ache in her back when checked deep breath pain in left shoulder. No recent cough. No nausea or vomiting. Patient called PCP office referred to ED. Recent diagnosis of stage II lung cancer with adenocarcinoma she had a partial right lower lobe lung resection May 01 in the hospital for 3 days. Currently on heparin injections twice a day which family is given. This morning's dose was not given. Denies history of PE or DVT. Denies any cardiac history. Remote tobacco. Denies hypertension diabetes hyperlipidemia. No family history of MIs at young age. Reports no chemo however plans to restart her immunotherapy of Keytruda. Prior Similar Symptoms: No CVD Risk Factors: Positive for Smoking; Negative for Hypertension, Diabetes, Hypercholesterolemia or Family History 1' PE Risk Factors: Positive for Recent Travel/Surgery; Negative for Recent Immobilization or Prior DVT or PE PFSH PFSH Home Medications ???Medication ???Instructions ???Recorded ???Last Taken ???Type ursodiol 300 mg capsule (Actigall) 300 mg PO TID 06/14/17 05/27/24 History acetaminophen 500 mg capsule 500 mg PO Q6H PRN pain 05/27/24 History cholecalciferol (vitamin D3) 50 50 mcg PO DAILY 05/27/24 05/27/24 History mcg (2,000 unit) capsule cinacalcet 30 mg tablet 30 mg PO DAILY 05/27/24 05/27/24 H istory folic acid 1 mg tablet 1 mg PO DAILY 05/27/24 05/27/24 Hi story heparin (porcine) 5,000 unit/mL 5,000 unit subcut Q12H 05/27/24 History injection solution hydroxychloroquine 200 mg tablet 200 mg PO BID 05/27/24 05/27/24 Hi story levothyroxine 50 mcg tablet 50 mcg PO DAILY 05/27/24 05/27/24 History magnesium chloride 71.5 mg 71.5 mg PO DAILY 05/27/24 05/27/24 History (magnesium chloride) tablet,delayed release (Slow-Mag) metoprolol tartrate 25 mg tablet 12.5 mg PO Q12H 05/27/24 05/26/24 History pantoprazole 40 mg tablet,delayed 40 mg PO DAILY 05/27/24 05/27/24 History release Allergy/AdvReac Type Severity Reaction Status Date / Time adhesive tape AdvReac Rash Verified 05/27/24 11:13 albuterol AdvReac Other Verified 05/27/24 11:13 Social History (Updated 05/27/24 @ 11:30 by Boaz Bhat) household members: spouse housing: house Smoking Status: Former smoker ROS ROS ED Constitutional Constitutional ED: Denies chills, fever(s) or sweats ENT ENT ED: Denies sore throat Cardiovascular Cardiovascular: Reports chest pain; Denies leg edema, palpitations or racing heartbeat Respiratory/Chest Respiratory/Chest: Denies cough, dyspnea or dyspnea on exertion Gastrointestinal Gastrointestinal: Denies abdominal pain, diarrhea, nausea or vomiting Genitourinary Genitourinary ED: Denies dysuria, hematuria or urinary frequency Musculoskeletal Musculoskeletal: Denies back pain, extremity pain or neck pain Integumentary Denies rash or wounds Neurologic Neurologic: Denies headache(s), paresthesias or weakness EXAM Physical Exam Const Vital Signs: 05/27/24 11:10 05/27/24 11:29 05/27/24 11:29 Temperature 97.8 F Temperature Source Oral Pulse Rate 87 Respiratory Rate 18 Respiratory Effort Normal Non-Labored Blood Pressure 113/70 Blood Pressure Mean 84 Pulse Ox 100 100 Oxygen Delivery Method Room Air Room Air 05/27/24 12:09 05/27/24 13:00 05/27/24 14:00 Temperature Temperature Source Pulse Rate 79 78 70 Respiratory Rate 13 18 18 Respiratory Effort Blood Pressure 108/45 L 99/56 L 91/52 L Blood Pressure Mean 66 70 65 Pulse Ox 97 98 98 Oxygen Delivery Method 05/27/24 15:00 Temperature Temperature Source Pulse Rate 78 Respiratory Rate 18 Respiratory Effort Blood Pressure 110/65 Blood Pressure Mean 80 Pulse Ox 98 Oxygen Delivery Method Positive well nourished and well developed General Appearance ED: well developed and NAD HEENT Reports moist mucous membranes normocephalic and atraumatic Eyes General Eye ED: Yes normal appearance of both eyes Neck full ROM Chest Wall Chest: Negative for tenderness Resp normal respiratory effort and normal air movement Resp Narrative: Symmetric breath sounds. Effort and Inspection: symmetric chest movement; Negative for respiratory distress Cardio regular rate, regular rhythm and no murmurs Peripheral Pulses: pulses 2+ throughout GI (more content not included)... Normal [facility] L499.0042on 05-27-2024 Trop T High Sen 7 ng/L Normal <=14 [facility] Comment on above: Performed By: #### L 499.0042 #### [facility] [address] [place], [address] L499.0043on 05-27-2024 Trop T High Sen Normal <=14 [facility] Comment on above: Result Comment: NO S PECIMEN COLLECTED. PATIENT DEPARTED ED. Performed By: #### L 499.0043 #### [facility] [address] [place], [address] L501.4021on 05-27-2024 Trop T High Sen 6 ng/L Normal <=14 [facility] Comment on above: Performed By: #### L 501.4021, L300.8000, L300.4310, L500.2500, L300.3900, L100.0100 #### [facility] [address] [place], [address] Partial Thromboplast Timeon 05-27-2024 aPTT Coag (Bld) [Time] 32.4 s Normal 24.1-36.2 [facility] Comment on above: Performed By: #### L 501.4021, L300.8000, L300.4310, L500.2500, L300.3900, L100.0100 #### [facility] [address] [place], [address] Prothrombin Time w/INRon INR Coag (PPP) [Relative time] 1.0 {INR} Normal [facility] Comment on above: Performed By: #### L 501.4021, L300.8000, L300.4310, L500.2500, L300.3900, L100.0100 #### [facility] [address] [place], [address] PT Coag (PPP) [Time] 13.2 s Normal 11.7-14.9 [facility] Comment on above: Performed By: #### L 501.4021, L300.8000, L300.4310, L500.2500, L300.3900, L100.0100 #### [facility] [address] [place], [address] CNPNon 05-26-2024 CNPN Normal [facility] CBC W Auto Differential pane l (Bld)on 05-21-2024 Basophils (Bld) [#/Vol] 0.11 10*3/uL High <0.11 [facility] Comment on above: Order Comment: Speci men Type: BLOOD SPECIMENOrdering Facility: [facility] Address: [address] [place] [address] Performed By: #### 5 7021-8 ####[facility] HOSPITALTHIAGOA [id number] [place] [address] [place] [facility] Basophils/100 WBC (Bld) 1.1 % Normal [facility] Comment on above: Order Comment: Speci men Type: BLOOD SPECIMENOrdering Facility: [facility] Address: [facility] [place] [address] Performed By: #### 5 7021-8 ####[facility] HOSPITALNCLIA [id number] [place] [address] [place] Differential cell count method Nom (Bld) Auto Normal [facility] Comment on above: Order Comment: Speci men Type: BLOOD SPECIMENOrdering Facility: [facility] Address: [address] [place] [address] Performed By: #### 5 7021-8 ####[facility]ITALNCUNIV[facility] [id number] [place] [address] [place] Eosinophils (Bld) [#/Vol] 0.15 10*3/uL Normal <0.46 [facility] Comment on above: Order Comment: Speci men Type: BLOOD SPECIMENOrdering Facility: [facility] Address: [address] [place] [address] Performed By: #### 5 7021-8 ####[facility] [id number] [place] [address] [place] Eosinophils/100 WBC (Bld) 1.5 % Normal [facility] Comment on above: Order Comment: Speci men Type: BLOOD SPECIMENOrdering Facility: [facility] Address: [address] [place] [address] Performed By: #### 5 7021-8 ####[facility] [id number] [place] [address] [place] Erythrocyte distribution width (RBC) [Ratio] 13.2 % Normal 11.5-15.0 [facility] Comment on above: Order Comment: Speci men Type: BLOOD SPECIMENOrdering Facility: [facility] Address: [address] [place] [address] Performed By: #### 5 7021-8 ####[facility] [id number] [place] [address] [place] Hematocrit (Bld) [Volume fraction] 32.4 % Low 36.0-46.0 [facility] Comment on above: Order Comment: Speci men Type: BLOOD SPECIMENOrdering Facility: [facility] Address: [address] [place] [address] Performed By: #### 5 7021-8 ####[facility] DAVISFARMVILLETARIQ [id number] [place] [address] [place] Hemoglobin (Bld) [Mass/Vol] 10.6 g/dL Low 11.5-15.5 [facility] Comment on above: Order Comment: Speci men Type: BLOOD SPECIMENOrdering Facility: [facility] Address: [address] [place] [address] Performed By: #### 5 7021-8 ####[facility] HOSPITALNCIzabella [id number] [place] [address] [place] Immature granulocytes (Bld) [#/Vol] 0.30 10*3/uL High <0.10 [facility] Comment on above: Order Comment: Speci men Type: BLOOD SPECIMENOrdering Facility: [facility] Address: [address] [place] [address] Performed By: #### 5 7021-8 ####[facility] HOSPITALLIA [id number] [place] [address] [place] Immature granulocytes/100 WBC (Bld) 3.1 % Normal [facility] Comment on above: Order Comment: Speci men Type: BLOOD SPECIMENOrdering Facility: [facility] Address: [address] [place] [address] Performed By: #### 5 7021-8 ####[facility] HOSPITALNCLIA [id number] [place] [address] [place] Lymphocytes (Bld) [#/Vol] 1.11 10*3/uL Normal 1.00-4.00 [facility] Comment on above: Order Comment: Speci men Type: BLOOD SPECIMENOrdering Facility: [facility] Address: [address] [place] [address] Performed By: #### 5 7021-8 ####[facility] HOSPITALVIETA [id number] [place] [address] [place] Lymphocytes/100 WBC (Bld) 11.4 % Normal [facility] Comment on above: Order Comment: Speci men Type: BLOOD SPECIMENOrdering Facility: [facility] Address: [address] [place] [address] Performed By: #### 5 7021-8 ####[facility] [id number] [place] [address] [place] MCH (RBC) [Entitic mass] 35.0 pg High 26.0-34.0 [facility] Comment on above: Order Comment: Speci men Type: BLOOD SPECIMENOrdering Facility: [facility] Address: [address] [place] [address] Performed By: #### 5 7021-8 ####[facility] [id number] [place] [address] [place] MCHC (RBC) [Mass/Vol] 32.7 g/dL Normal 30.5-36.0 [facility] Comment on above: Order Comment: Speci men Type: BLOOD SPECIMENOrdering Facility: [facility] Address: [address] [place] [address] Performed By: #### 5 7021-8 ####[facility] [id number] [place] [address] [place] MCV (RBC) [Entitic vol] 106.9 fL High 80.0-100.0 [facility] Comment on above: Order Comment: Speci men Type: BLOOD SPECIMENOrdering Facility: [facility] Address: [address] [place] [address] Performed By: #### 5 7021-8 ####[facility]PITALNCUNIVERSITY [facility] [id number] [place] [address] [place] Monocytes (Bld) [#/Vol] 0.76 10*3/uL Normal <0.87 [facility] Comment on above: Order Comment: Speci men Type: BLOOD SPECIMENOrdering Facility: [facility] Address: [address] [place] [address] Performed By: #### 5 7021-8 ####[facility] ERA [id number] [place] [address] [place] Monocytes/100 WBC (Bld) 7.8 % Normal [facility] Comment on above: Order Comment: Speci men Type: BLOOD SPECIMENOrdering Facility: [facility] Address: [address] [place] [address] Performed By: #### 5 7021-8 ####[facility] [id number] [place] [address] [place] Neutrophils (Bld) [#/Vol] 7.34 10*3/uL Normal 1.45-7.50 [facility] Comment on above: Order Comment: Speci men Type: BLOOD SPECIMENOrdering Facility: [facility] Address: [address] [place] [address] Performed By: #### 5 7021-8 ####[facility] [id number] [place] [address] [place] Neutrophils/100 WBC (Bld) 75.1 % Normal [facility] Comment on above: Order Comment: Speci men Type: BLOOD SPECIMENOrdering Facility: [facility] Address: [address] [place] [address] Performed By: #### 5 7021-8 ####[facility] [id number] [place] [address] [place] Nucleated RBC (Bld) [#/Vol] 10*3/uL Normal <0.01 [facility] Comment on above: Order Comment: Speci men Type: BLOOD SPECIMENOrdering Facility: [facility] Address: [address] [place] [address] Performed By: #### 5 7021-8 ####[facility] DAVISFARMVILLETARIQ [id number] [place] [address] [place] Nucleated RBC/100 WBC (Bld) [Ratio] 0.0 /100 WBC Normal [facility] Comment on above: Order Comment: Speci men Type: BLOOD SPECIMENOrdering Facility: [facility] Address: [address] [place] [address] Performed By: #### 5 7021-8 ####[facility] HOSPITALNCTHIAGO [id number] [place] [address] [place] Platelet mean volume (Bld) [Entitic vol] 10.3 fL Normal 9.0-12.7 [facility] Comment on above: Order Comment: Speci men Type: BLOOD SPECIMENOrdering Facility: [facility] Address: [address] [place] [address] Performed By: #### 5 7021-8 ####[facility] [id number] [place] [address] [place] Platelets (Bld) [#/Vol] 356 10*3/uL Normal 150-400 [facility] Comment on above: Order Comment: Speci men Type: BLOOD SPECIMENOrdering Facility: [facility] Address: [address] [place] [address] Result Comment: No c lot detected. Performed By: #### 5 7021-8 ####[facility] [id number] [place] [address] [place] RBC (Bld) [#/Vol] 3.03 10*6/uL Low 3.90-5.20 [facility] Comment on above: Order Comment: Speci men Type: BLOOD SPECIMENOrdering Facility: [facility] Address: [address] [place] [address] Performed By: #### 5 7021-8 ####[facility] DAVISFARMVILLENCLIA [id number] [place] [address] [place] WBC (Bld) [#/Vol] 9.77 10*3/uL Normal 3.70-11.00 [facility] Comment on above: Order Comment: Speci men Type: BLOOD SPECIMENOrdering Facility: [facility] Address: [address] [place] [address] Performed By: #### 5 7021-8 ####[facility] HOSPITALNCLIA [id number] [place] [address] [place] CNOVSPon 05-21-2024 CNOVSP Normal [facility] CNPNon 05-21-2024 CNPN Normal [facility] Comprehensive metabolic 2000 panelon 05-21-2024 Albumin [Mass/Vol] 4.3 g/dL Normal 3.9-4.9 [facility] Comment on above: Order Comment: Speci men Type: BLOOD SPECIMENOrdering Facility: [facility] Address: [address] [place] [address] Performed By: #### 2 4323-8, 55807-6 ####[facility] HOSPITALNCLIA [id number] [place] [address] [place] ALP [Catalytic activity/Vol] 324 U/L High 34-123 [facility] Comment on above: Order Comment: Speci men Type: BLOOD SPECIMENOrdering Facility: [facility] Address: [address] [place] [address] Performed By: #### 2 4323-8, 03407-3 ####[facility] HOSPITALNCLIA [id number] [place] [address] [place] ALT [Catalytic activity/Vol] 23 U/L Normal 7-38 [facility] Comment on above: Order Comment: Speci men Type: BLOOD SPECIMENOrdering Facility: [facility] Address: [address] [place] [address] Performed By: #### 2 4323-8, ####[facility] MILLTOWLALILIA [id number] [place] [address] [place] Anion gap [Moles/Vol] 13 mmol/L Normal 8-15 [facility] Comment on above: Order Comment: Speci men Type: BLOOD SPECIMENOrdering Facility: [facility] Address: [address] [place], [place] [address] Performed By: #### 2 432-8, ####[facility] DAVISWNCLIA [id number] [place] [address] [place] AST [Catalytic activity/Vol] 30 U/L Normal 13-35 [facility] Comment on above: Order Comment: Speci men Type: BLOOD SPECIMENOrdering Facility: [facility] Address: [address] [place], [place] [address] Performed By: #### 2 4328, ####[facility] DAVISWLALILIA [id number] [place] [address] [place] Bilirubin [Mass/Vol] 0.2 mg/dL Normal 0.2-1.3 [facility] Comment on above: Order Comment: Speci men Type: BLOOD SPECIMENOrdering Facility: [facility] Address: [facility] [place] [address] Performed By: #### 2 4328, ####[facility] MILLWNCLIA [id number] [place] [address] [place] Calcium [Mass/Vol] 9.8 mg/dL Normal 8.5-10.2 [facility] Comment on above: Order Comment: Speci men Type: BLOOD SPECIMENOrdering Facility: [facility] Address: [address] [place] [address] Performed By: #### 2 4323-8, ####[facility] HOS[facility]ITALNCLIA [id number] [place] [address] [place] Chloride [Moles/Vol] 99 mmol/L Normal 98-107 [facility] Comment on above: Order Comment: Speci men Type: BLOOD SPECIMENOrdering Facility: [facility] Address: [address] [place] [address] Performed By: #### 2 4323-8, 23838-0 ####[facility] [id number] [place] [address] [place] CO2 [Moles/Vol] 22 mmol/L Normal 22-30 [facility] Comment on above: Order Comment: Speci men Type: BLOOD SPECIMENOrdering Facility: [facility] Address: [address] [place] [address] Performed By: #### 2 4323-8, 00354-5 ####[facility] [id number] [place] [address] [place] Creatinine [Mass/Vol] 1.16 mg/dL High 0.58-0.96 [facility] Comment on above: Order Comment: Speci men Type: BLOOD SPECIMENOrdering Facility: [facility] Address: [address] [place] [address] Performed By: #### 2 4323-8, 73136-8 ####[facility] ERA [id number] [place] [address] [place] Creatinine and Glomerular filtration rate.predicted panel (S/P/Bld) 53 mL/min/1.73m??? Low >=60 [facility] Comment on above: Order Comment: Speci men Type: BLOOD SPECIMENOrdering Facility: [facility] Address: [address] [place] [address] Result Comment: Ann mated Glomerular Filtration Rate (eGFR) is calculated using the 2020 CKD-EPI creatinine equation. This equation utilizes serum creatinine, sex, and age as parameters. The creatinine assay has traceable calibration to isotope dilution-mass spectrometry. Refer to KDIGO guidelines for clinical interpretation. In patients with unstable renal function, e.g. those with acute kidney injury, the eGFR may not accurately reflect actual GFR. Performed By: #### 2 4323-8, ####[facility] DAVISMARCIWLALILIIzabella [id number] [place] [address] [place] Glucose [Mass/Vol] 79 mg/dL Normal 74-99 [facility] Comment on above: Order Comment: Medina sales Type: BLOOD SPECIMENOrdering Facility: [facility] Address: [address] [place] [address] Result Comment: The [place] Diabetes Association (ADA) provides guidance for cutoff values for fasting glucose and random glucose. The ADA defines fasting as no caloric intake for at least 8 hours. Fasting plasma glucose results between 100 to 125 mg/dL indicate increased risk for diabetes (prediabetes).Fasting plasma glucose results greater than or equal to 126 mg/dL meet the criteria for diagnosis of diabetes. In the absence of unequivocal hyperglycemia, results should be confirmed by repeat testing. In a patient with classic symptoms of hyperglycemia or hyperglycemic crisis, random plasma glucose results greater than or equal to 200 mg/dL meet the criteria for diagnosis of diabetes.Reference: Standards of Medical Care in Diabetes 2016, [place] [employer]. Diabetes Care. 2016.39(Suppl 1). Performed By: #### 2 4323-8, ####[facility] HOSPITALNCLIA [id number] [place] [address] [place] Potassium [Moles/Vol] 4.3 mmol/L Normal 3.7-5.1 [facility] Comment on above: Order Comment: Medina sales Type: BLOOD SPECIMENOrdering Facility: [facility] Address: [address] [place] [address] Performed By: #### 2 4323-8, ####[facility] HOS[facility]ITALNCLIA [id number] [place] [id number] [place] Protein [Mass/Vol] 8.3 g/dL High 6.3-8.0 [facility] Comment on above: Order Comment: Speci men Type: BLOOD SPECIMENOrdering Facility: [facility] Address: [address] [place] [address] Performed By: #### 2 4323-8, 98912-6 ####[facility] MILLJUANJONCTHIAGOA [id number] [place] [address] [place] Sodium [Moles/Vol] 134 mmol/L Low 136-144 [facility] Comment on above: Order Comment: Speci men Type: BLOOD SPECIMENOrdering Facility: [facility] Address: [address] [place] [address] Performed By: #### 2 4323-8, 20227-8 ####[facility] HOSPITALNCNENITA [id number] [place] [address] [place] Urea nitrogen [Mass/Vol] 21 mg/dL Normal 7-21 [facility] Comment on above: Order Comment: Speci men Type: BLOOD SPECIMENOrdering Facility: [facility] Address: [address] [place] [address] Performed By: #### 2 4323-8, ####[facility] HOSPITALTARIQ [id number] [place] [address] [place] Magnesium SerPl-mCncon 05-21 Magnesium [Mass/Vol] 1.7 mg/dL Normal 1.7-2.3 [facility] Comment on above: Order Comment: Speci men Type: BLOOD SPECIMENOrdering Facility: [facility] Address: [address] [place] [address] Performed By: #### 2 4323-8, ####[facility] MILLFARMVILLELALILIA [id number] [place] [address] [place] XR CHEST 2V FRONTAL/LATon XR CHEST 2V FRONTAL/LAT Normal [facility] CNOVon 05-09-2024 CNOV Normal [facility] XR CHEST 2V FRONTAL/LATon XR CHEST 2V FRONTAL/LAT Normal [facility] Basic metabolic 2000 panelon 05-08-2024 Anion gap [Moles/Vol] 13 mmol/L Normal 8-15 [facility] Comment on above: Order Comment: Speci men Type: BLOOD SPECIMENOrdering Facility: [facility] Address: [address] [place] [address] Performed By: #### 2 4321-2 ####[facility] LABCLIA [id number] [place] [address] [place] Calcium [Mass/Vol] 9.2 mg/dL Normal 8.5-10.2 [facility] Comment on above: Order Comment: Speci men Type: BLOOD SPECIMENOrdering Facility: [facility] Address: [address] [place] [address] Performed By: #### 2 4321-2 ####[facility] LABCLIA [id number] [place] [id number] [place] Chloride [Moles/Vol] 99 mmol/L Normal 98-107 [facility] Comment on above: Order Comment: Speci men Type: BLOOD SPECIMENOrdering Facility: [facility] Address: [address] [place] [address] Performed By: #### 2 4321-2 ####[facility] LABCLIA [id number] [place] [id number] [place] CO2 [Moles/Vol] 26 mmol/L Normal 22-30 [facility] Comment on above: Order Comment: Speci men Type: BLOOD SPECIMENOrdering Facility: [facility] Address: [address] [place] [address] Performed By: #### 2 4321-2 ####[facility] LABCLIA [id number] [place] [id number] [place] Creatinine [Mass/Vol] 1.23 mg/dL High 0.58-0.96 [facility] Comment on above: Order Comment: Medina sales Type: BLOOD SPECIMENOrdering Facility: [facility] Address: [address] [place] [address] Performed By: #### 2 4321-2 ####[facility] LABCLIA [id number] [address] [facility] Creatinine and Glomerular filtration rate.predicted panel (S/P/Bld) 50 mL/min/1.73m??? Low >=60 [facility] Comment on above: Order Comment: Medina sales Type: BLOOD SPECIMENOrdering Facility: [facility] Address: [address] [place] [address] Result Comment: Ann mated Glomerular Filtration Rate (eGFR) is calculated using the 2020 CKD-EPI creatinine equation. This equation utilizes serum creatinine, sex, and age as parameters. The creatinine assay has traceable calibration to isotope dilution-mass spectrometry. Refer to KDIGO guidelines for clinical interpretation. In patients with unstable renal function, e.g. those with acute kidney injury, the eGFR may not accurately reflect actual GFR. Performed By: #### 2 4321-2 ####[facility] LABIA [id number] [place] [address] [place] Glucose [Mass/Vol] 90 mg/dL Normal 74-99 [facility] Comment on above: Order Comment: Medina sales Type: BLOOD SPECIMENOrdering Facility: [facility] Address: [address] [place] [address] Result Comment: The [place] Diabetes Association (ADA) provides guidance for cutoff values for fasting glucose and random glucose. The ADA defines fasting as no caloric intake for at least 8 hours. Fasting plasma glucose results between 100 to 125 mg/dL indicate increased risk for diabetes (prediabetes).Fasting plasma glucose results greater than or equal to 126 mg/dL meet the criteria for diagnosis of diabetes. In the absence of unequivocal hyperglycemia, results should be confirmed by repeat testing. In a patient with classic symptoms of hyperglycemia or hyperglycemic crisis, random plasma glucose results greater than or equal to 200 mg/dL meet the criteria for diagnosis of diabetes.Reference: Standards of Medical Care in Diabetes 2016, [place] [employer]. Diabetes Care. 2016.39(Suppl 1). Performed By: #### 2 4321-2 ####[facility] LABCLIA [id number] [address] [address] [place] Potassium [Moles/Vol] 4.0 mmol/L Normal 3.7-5.1 [facility] Comment on above: Order Comment: Speci men Type: BLOOD SPECIMENOrdering Facility: [facility] Address: [address] [place] [address] Performed By: #### 2 4321-2 ####[facility] LABCLIA [id number] [address] [place] [address] [place] Sodium [Moles/Vol] 138 mmol/L Normal 136-144 [facility] Comment on above: Order Comment: Speci men Type: BLOOD SPECIMENOrdering Facility: [facility] Address: [address] [place] [id number] Performed By: #### 2 4321-2 ####[facility] LABCLIA [id number] [address] [address] [place] Urea nitrogen [Mass/Vol] 9 mg/dL Normal 7-21 [facility] Comment on above: Order Comment: Speci men Type: BLOOD SPECIMENOrdering Facility: [facility] Address: [address] [place] [id number] Performed By: #### 2 4321-2 ####[facility] LABCLIA [id number] [address] [place] [address] [place] CNPNon 05-08-2024 CNPN Normal [facility] Basic metabolic 2000 panelon 05-03-2024 Anion gap [Moles/Vol] 11 mmol/L Normal 8-15 [facility] Comment on above: Order Comment: Speci men Type: BLOOD SPECIMENOrdering Facility: [facility] Address: [address] [place] [id number] Performed By: #### 2 4321-2 ####[facility] LABCLIA [id number] [facility] [address] [place] [address] [place] Calcium [Mass/Vol] 8.1 mg/dL Low 8.5-10.2 [facility] Comment on above: Order Comment: Speci men Type: BLOOD SPECIMENOrdering Facility: [facility] Address: [address] [place] [address] Performed By: #### 2 4321-2 ####[facility] LABCLIA [id number] [address], [facility]95 [place] Chloride [Moles/Vol] 100 mmol/L Normal 98-107 [facility] Comment on above: Order Comment: Speci men Type: BLOOD SPECIMENOrdering Facility: [facility] Address: [address] [place] [address] Performed By: #### 2 4321-2 ####[facility] LABCLIA [id number] [place] [address] [place] CO2 [Moles/Vol] 23 mmol/L Normal 22-30 [facility] Comment on above: Order Comment: Speci men Type: BLOOD SPECIMENOrdering Facility: [facility] Address: [address] [place] [address] Performed By: #### 2 4321-2 ####[facility] LABCLIA [id number] [place] [id number] [place] Creatinine [Mass/Vol] 1.25 mg/dL High 0.58-0.96 [facility] Comment on above: Order Comment: Speci men Type: BLOOD SPECIMENOrdering Facility: [facility] Address: [address] [place], [place] [address] Performed By: #### 2 4321-2 ####[facility] LABCLIA [id number] [facility] [place] [id number] [place] Creatinine and Glomerular filtration rate.predicted panel (S/P/Bld) 49 mL/min/1.73m??? Low >=60 [facility] Comment on above: Order Comment: Medina sales Type: BLOOD SPECIMENOrdering Facility: [facility] Address: [address] [place] [address] Result Comment: Ann mated Glomerular Filtration Rate (eGFR) is calculated using the 2020 CKD-EPI creatinine equation. This equation utilizes serum creatinine, sex, and age as parameters. The creatinine assay has traceable calibration to isotope dilution-mass spectrometry. Refer to KDIGO guidelines for clinical interpretation. In patients with unstable renal function, e.g. those with acute kidney injury, the eGFR may not accurately reflect actual GFR. Performed By: #### 2 4321-2 ####[facility] [id number] [place] [address] [place] Glucose [Mass/Vol] 92 mg/dL Normal 74-99 [facility] Comment on above: Order Comment: Medina sales Type: BLOOD SPECIMENOrdering Facility: [facility] Address: [address] [place] [address] Result Comment: The [place] Diabetes Association (ADA) provides guidance for cutoff values for fasting glucose and random glucose. The ADA defines fasting as no caloric intake for at least 8 hours. Fasting plasma glucose results between 100 to 125 mg/dL indicate increased risk for diabetes (prediabetes).Fasting plasma glucose results greater than or equal to 126 mg/dL meet the criteria for diagnosis of diabetes. In the absence of unequivocal hyperglycemia, results should be confirmed by repeat testing. In a patient with classic symptoms of hyperglycemia or hyperglycemic crisis, random plasma glucose results greater than or equal to 200 mg/dL meet the criteria for diagnosis of diabetes.Reference: Standards of Medical Care in Diabetes 2016, [place] [employer]. Diabetes Care. 2016.39(Suppl 1). Performed By: #### 2 4321-2 ####[facility] [id number] [place] [address] [place] Potassium [Moles/Vol] 4.6 mmol/L Normal 3.7-5.1 [facility] Comment on above: Order Comment: Medina sales Type: BLOOD SPECIMENOrdering Facility: [facility] Address: [address] [place] [address] Performed By: #### 2 4321-2 ####[facility] LABCLIA [id number] [address] [address] [place] Sodium [Moles/Vol] 134 mmol/L Low 136-144 [facility] Comment on above: Order Comment: Speci men Type: BLOOD SPECIMENOrdering Facility: [facility] Address: [address] [place] [address] Performed By: #### 2 4321-2 ####[facility] LABCLIA [id number] [place] [address] [place] Urea nitrogen [Mass/Vol] 8 mg/dL Normal 7-21 [facility] Comment on above: Order Comment: Speci men Type: BLOOD SPECIMENOrdering Facility: [facility] Address: [address] [place] [address] Performed By: #### 2 4321-2 ####[facility] LABCLIA [id number] [place] [id number] [place] CASE MANAGEMon 05-03-2024 CASE MANAGEM Normal [facility] CBC panel Auto (Bld)on 05-03 Erythrocyte distribution width (RBC) [Ratio] 12.0 % Normal 11.5-15.0 [facility] Comment on above: Order Comment: Speci men Type: BLOOD SPECIMENOrdering Facility: [facility] Address: [address] [place] [address] Performed By: #### 5 8410-2 ####[facility] LABCLIA [id number] [place] [id number] [place] Hematocrit (Bld) [Volume fraction] 28.2 % Low 36.0-46.0 [facility] Comment on above: Order Comment: Speci men Type: BLOOD SPECIMENOrdering Facility: [facility] Address: [address] [place] [address] Performed By: #### 5 8410-2 ####[facility] LABIA [id number] [place] [address] [place] Hemoglobin (Bld) [Mass/Vol] 9.5 g/dL Low 11.5-15.5 [facility] Comment on above: Order Comment: Speci men Type: BLOOD SPECIMENOrdering Facility: [facility] Address: [address] [place] [address] Performed By: #### 5 8410-2 ####[facility] LABIA [id number] [place] [address] [place] MCH (RBC) [Entitic mass] 35.2 pg High 26.0-34.0 [facility] Comment on above: Order Comment: Speci men Type: BLOOD SPECIMENOrdering Facility: [facility] Address: [address] [place] [address] Performed By: #### 5 8410-2 ####[facility] [id number] [place] [address] [place] MCHC (RBC) [Mass/Vol] 33.7 g/dL Normal 30.5-36.0 [facility] Comment on above: Order Comment: Speci men Type: BLOOD SPECIMENOrdering Facility: [facility] Address: [address] [place] [address] Performed By: #### 5 8410-2 ####[facility] LABIA [id number] [place] [address] [place] MCV (RBC) [Entitic vol] 104.4 fL High 80.0-100.0 [facility] Comment on above: Order Comment: Speci men Type: BLOOD SPECIMENOrdering Facility: [facility] Address: [address] [place] [address] Performed By: #### 5 8410-2 ####[facility] LABIA [id number] [place] [address] [place] Nucleated RBC (Bld) [#/Vol] 10*3/uL Normal <0.01 [facility] Comment on above: Order Comment: Speci men Type: BLOOD SPECIMENOrdering Facility: [facility] Address: [address] [place] [address] Performed By: #### 5 8410-2 ####[facility] LABCLIA [id number] [place] [address] [place] Platelet mean volume (Bld) [Entitic vol] 9.4 fL Normal 9.0-12.7 [facility] Comment on above: Order Comment: Speci men Type: BLOOD SPECIMENOrdering Facility: [facility] Address: [address] [place] [address] Performed By: #### 5 8410-2 ####[facility] LABCLIA [id number] [place] [address] [place] Platelets (Bld) [#/Vol] 252 10*3/uL Normal 150-400 [facility] Comment on above: Order Comment: Speci men Type: BLOOD SPECIMENOrdering Facility: [facility] Address: [address] [place] [address] Performed By: #### 5 8410-2 ####[facility] LABCLIA [id number] [place] [address] [place] RBC (Bld) [#/Vol] 2.70 10*6/uL Low 3.90-5.20 [facility] Comment on above: Order Comment: Speci men Type: BLOOD SPECIMENOrdering Facility: [facility] Address: [address] [place] [address] Performed By: #### 5 8410-2 ####[facility] LABCLIA [id number] [facility] [address] [address] [place] WBC (Bld) [#/Vol] 10.48 10*3/uL Normal 3.70-11.00 [facility] Comment on above: Order Comment: Speci men Type: BLOOD SPECIMENOrdering Facility: [facility] Address: [address] [place] [id number] Performed By: #### 5 8410-2 ####[facility] LABCLIA [id number] [address] [address] [place] CNDSon 05-03-2024 CNDS Normal [facility] US LEG VEIN DVT ARMANDO VAS LABo n 05-03-2024 US LEG VEIN DVT ARMANDO VAS LAB Normal [facility] XR CHEST 1V FRONTAL PORTon 0 05-03-2024 XR CHEST 1V FRONTAL PORT Normal [facility] Basic metabolic 2000 panelon 05-02-2024 Anion gap [Moles/Vol] 11 mmol/L Normal 8-15 [facility] Comment on above: Order Comment: Speci men Type: BLOOD SPECIMENOrdering Facility: [facility] Address: [address] [place] [address] Performed By: #### 2 4321-2 ####[facility] LABCLIA [id number] [address] [address] [place] Calcium [Mass/Vol] 8.4 mg/dL Low 8.5-10.2 [facility] Comment on above: Order Comment: Speci men Type: BLOOD SPECIMENOrdering Facility: [facility] Address: [address] [place], [place] [address] Performed By: #### 2 4321-2 ####[facility] LABCLIA [id number] [address] [address] [place] Chloride [Moles/Vol] 102 mmol/L Normal 98-107 [facility] Comment on above: Order Comment: Speci men Type: BLOOD SPECIMENOrdering Facility: [facility] Address: [address] [place], [place] [address] Performed By: #### 2 4321-2 ####[facility] LABCLIA [id number] [place] [id number] [place] CO2 [Moles/Vol] 24 mmol/L Normal 22-30 [facility] Comment on above: Order Comment: Speci men Type: BLOOD SPECIMENOrdering Facility: [facility] Address: [address] [place] [address] Performed By: #### 2 4321-2 ####[facility] LABCLIA [id number] [place] [id number] [place] Creatinine [Mass/Vol] 1.31 mg/dL High 0.58-0.96 [facility] Comment on above: Order Comment: Speci men Type: BLOOD SPECIMENOrdering Facility: [facility] Address: [address] [place] [address] Performed By: #### 2 4321-2 ####[facility] LABCLIA [id number] [place] [address] [place] Creatinine and Glomerular filtration rate.predicted panel (S/P/Bld) 46 mL/min/1.73m??? Low >=60 [facility] Comment on above: Order Comment: Speci men Type: BLOOD SPECIMENOrdering Facility: [facility] Address: [address] [place] [address] Result Comment: Ann mated Glomerular Filtration Rate (eGFR) is calculated using the 2020 CKD-EPI creatinine equation. This equation utilizes serum creatinine, sex, and age as parameters. The creatinine assay has traceable calibration to isotope dilution-mass spectrometry. Refer to KDIGO guidelines for clinical interpretation. In patients with unstable renal function, e.g. those with acute kidney injury, the eGFR may not accurately reflect actual GFR. Performed By: #### 2 4321-2 ####[facility] LABCLIA [id number] [place] [id number] [place] Glucose [Mass/Vol] 105 mg/dL High 74-99 [facility] Comment on above: Order Comment: Speci men Type: BLOOD SPECIMENOrdering Facility: [facility] Address: [address] [place] [address] Result Comment: The [place] Diabetes Association (ADA) provides guidance for cutoff values for fasting glucose and random glucose. The ADA defines fasting as no caloric intake for at least 8 hours. Fasting plasma glucose results between 100 to 125 mg/dL indicate increased risk for diabetes (prediabetes).Fasting plasma glucose results greater than or equal to 126 mg/dL meet the criteria for diagnosis of diabetes. In the absence of unequivocal hyperglycemia, results should be confirmed by repeat testing. In a patient with classic symptoms of hyperglycemia or hyperglycemic crisis, random plasma glucose results greater than or equal to 200 mg/dL meet the criteria for diagnosis of diabetes.Reference: Standards of Medical Care in Diabetes 2016, [place] [employer]. Diabetes Care. 2016.39(Suppl 1). Performed By: #### 2 4321-2 ####[facility] LABIA [id number] [place] [address] [place] Potassium [Moles/Vol] 3.9 mmol/L Normal 3.7-5.1 [facility] Comment on above: Order Comment: Speci men Type: BLOOD SPECIMENOrdering Facility: [facility] Address: [address] [place] [address] Performed By: #### 2 4321-2 ####[facility] LABIA [id number] [place] [address] [place] Sodium [Moles/Vol] 137 mmol/L Normal 136-144 [facility] Comment on above: Order Comment: Speci men Type: BLOOD SPECIMENOrdering Facility: [facility] Address: [address] [place] [address] Performed By: #### 2 4321-2 ####[facility] LABIA [id number] [place] [id number] [place] Urea nitrogen [Mass/Vol] 7 mg/dL Normal 7-21 [facility] Comment on above: Order Comment: Speci men Type: BLOOD SPECIMENOrdering Facility: [facility] Address: [address] [place] [address] Performed By: #### 2 4321-2 ####[facility] LABIA [id number] [place] [address] [place] CASE MGT INIT ASSESon 2024 CASE MGT INIT ASSES Normal [facility] CBC panel Auto (Bld)on 05-02 Erythrocyte distribution width (RBC) [Ratio] 12.3 % Normal 11.5-15.0 [facility] Comment on above: Order Comment: Speci men Type: BLOOD SPECIMENOrdering Facility: [facility] Address: [address] [place] [address] Performed By: #### 5 8410-2 ####[facility] LABIA [id number] [address], [place] [address] [place] Hematocrit (Bld) [Volume fraction] 26.8 % Low 36.0-46.0 [facility] Comment on above: Order Comment: Speci men Type: BLOOD SPECIMENOrdering Facility: [facility] Address: [address] [place] [address] Performed By: #### 5 8410-2 ####[facility] LABIA [id number] [address], [place] [address] [place] Hemoglobin (Bld) [Mass/Vol] 8.9 g/dL Low 11.5-15.5 [facility] Comment on above: Order Comment: Speci men Type: BLOOD SPECIMENOrdering Facility: [facility] Address: [address] [place] [address] Performed By: #### 5 8410-2 ####[facility] LABIA [id number] [address], [facility] [place] MCH (RBC) [Entitic mass] 35.3 pg High 26.0-34.0 [facility] Comment on above: Order Comment: Speci men Type: BLOOD SPECIMENOrdering Facility: [facility] Address: [address] [place] [address] Performed By: #### 5 8410-2 ####[facility] LABIA [id number] [address], [facility]95 [place] MCHC (RBC) [Mass/Vol] 33.2 g/dL Normal 30.5-36.0 [facility] Comment on above: Order Comment: Speci men Type: BLOOD SPECIMENOrdering Facility: [facility] Address: [address] [place] [address] Performed By: #### 5 8410-2 ####[facility] LABCLIA [id number] [place] [address] [place] MCV (RBC) [Entitic vol] 106.3 fL High 80.0-100.0 [facility] Comment on above: Order Comment: Speci men Type: BLOOD SPECIMENOrdering Facility: [facility] Address: [address] [place] [address] Performed By: #### 5 8410-2 ####[facility] LABCLIA [id number] [place] [address] [place] Nucleated RBC (Bld) [#/Vol] 10*3/uL Normal <0.01 [facility] Comment on above: Order Comment: Speci men Type: BLOOD SPECIMENOrdering Facility: [facility] Address: [address] [place] [address] Performed By: #### 5 8410-2 ####[facility] LABCLIA [id number] [place] [address] [place] Platelet mean volume (Bld) [Entitic vol] 9.5 fL Normal 9.0-12.7 [facility] Comment on above: Order Comment: Speci men Type: BLOOD SPECIMENOrdering Facility: [facility] Address: [address] [place] [address] Performed By: #### 5 8410-2 ####[facility] LABCLIA [id number] [place] [address] [place] Platelets (Bld) [#/Vol] 251 10*3/uL Normal 150-400 [facility] Comment on above: Order Comment: Speci men Type: BLOOD SPECIMENOrdering Facility: [facility] Address: [address] [place] [address] Performed By: #### 5 8410-2 ####[facility] LABIA [id number] [place] [address] [place] RBC (Bld) [#/Vol] 2.52 10*6/uL Low 3.90-5.20 [facility] Comment on above: Order Comment: Speci men Type: BLOOD SPECIMENOrdering Facility: [facility] Address: [address] [place] [address] Performed By: #### 5 8410-2 ####[facility] LABIA [id number] [place] [address] [place] WBC (Bld) [#/Vol] 8.14 10*3/uL Normal 3.70-11.00 [facility] Comment on above: Order Comment: Speci men Type: BLOOD SPECIMENOrdering Facility: [facility] Address: [address] [place] [address] Performed By: #### 5 8410-2 ####[facility] LABIA [id number] [place] [address] [place] XR CHEST 1V FRONTAL PORTon 0 05-02-2024 XR CHEST 1V FRONTAL PORT Normal [facility] XR CHEST 2V FRONTAL/LATon XR CHEST 2V FRONTAL/LAT Normal [facility] ANES POSTPROC EVALon 025 ANES POSTPROC EVAL Normal [facility] ANES PRE-OPon 05-01-2024 ANES PRE-OP Normal [facility] BRIEF OP NOTon 05-01-2024 BRIEF OP NOT Normal [facility] NURSING PROGon 05-01-2024 NURSING PROG Normal [facility] OPERATIVE NOon 05-01-2024 OPERATIVE NO Normal [facility] Pathology biopsy report Tae (Tiss)on 05-01-2024 AP DISCLAIMER Normal [facility] Comment on above: Order Comment: Speceva sales Type: TISSUE SPECIMENOrdering Facility: [facility] Address: [address] [place] [address] Result Comment: Elder arreguin Developed Test (LDT) Disclaimer:Performance characteristics of immunohistochemical, immunofluorescent, and chromogenic in-situ hybridization tests have been determined by the performing laboratory within [facility]'s [facility] Pathology and Laboratory Medicine Department ([facility], [facility], [facility], [facility], [facility], [facility], or [facility]) in a manner consistent with CLIA requirements. One or more of these tests may not have been cleared or approved by the FDA. [facility] is regulated under CLIA as qualified to perform high-complexity testing. These tests are used for clinical purposes. These should not be regarded as investigational or for research. Positive and negative controls stain appropriately. Performed By: #### 6 6121-5 ####[facility] LABCLIA [id number] [address] OF [facility] BLOCK FOR ADDITIONAL BIOMARKERS/MOLECULAR STUDIES J5 Normal [facility] Comment on above: Order Comment: Med[place] sales Type: TISSUE SPECIMENOrdering Facility: [facility] Address: [address] [place] [address] Performed By: #### 6 6121-5 ####[facility] LABCLIA [id number] [place] [id number] [facility] CASE REPORT Normal [facility] Comment on above: Order Comment: Kushali men Type: TISSUE SPECIMENOrdering Facility: [facility] Address: [address] [place] [address] Result Comment: Surg [facility] Pathology Report Case: [id number] Provider: Janett Feliciano MD, PhD Collected: 05/01/2024 08:10 AMOrdering Location: Admitting Received: 05/01/2024 01:31 PMPathologist: Ruthann Crane MD, PhDSpecimens: A) - Lymph Node (Specify Site in Comments), lymph node level 7 B) - Lymph Node (Specify Site in Comments), lymph node level 8 C) - Lymph Node (Specify Site in Comments), Lymph node 10R D) - Lymph Node (Specify Site in Comments), lymph node 12R E) - Lymph Node (Specify Site in Comments), lymph node 11R F) - Lymph Node (Specify Site in Comments), level 11 anterior (multiple nodes) G) - Lymph Node (Specify Site in Comments), level 12R H) - Lymph Node (Specify Site in Comments), 12R LN I) - Lymph Node (Specify Site in Comments), level 9 J) - Lung, Right, Resection, right lower lobe Performed By: #### 6 6121-5 ####[facility] LABCLIA [id number] [address] [address] [facility] CLINICAL HISTORY Normal [facility] Comment on above: Order Comment: Speci men Type: TISSUE SPECIMENOrdering Facility: [facility] Address: [address] [place] [address] Result Comment: Pre- op diagnosis:Malignant neoplasm of lower lobe of right lung (HCC) [C34.31]Pre-procedure lab exam [Z01.812] Performed By: #### 6 6121-5 ####[facility] LABCLIA [id number] [place] [id number] [facility] DIAGNOSIS COMMENT J. Immunohistochemic al stains performed on block J4 show that the tumor cells are negative for TTF-1 and p40. Visceral pleural invasion is confirmed by Movat special stains performed on block J4 and J6 (stain was also performed on block J7). Normal [facility] Comment on above: Order Comment: Speci men Type: TISSUE SPECIMENOrdering Facility: [facility] Address: [address] [place] [address] Performed By: #### 6 6121-5 ####[facility] LABIA [id number] [address] [address] [facility] FINAL DIAGNOSIS Normal [facility] Comment on above: Order Comment: Speci men Type: TISSUE SPECIMENOrdering Facility: [facility] Address: [address] [place] [address] Result Comment: A. L ymph node, level 7, excision:- One lymph node, negative for malignancy (0/1).B. Lymph node, level 8, excision:- One lymph node, negative for malignancy (0/1).C. Lymph node, level 10R, excision:- One lymph node, negative for malignancy (0/1).D. Lymph node, level 12R, excision:- One lymph node, negative for malignancy (0/1).E. Lymph node, level 11R, excision:- One lymph node, negative for malignancy (0/1).F. Lymph node, level 11 anterior, excision:- Metastatic carcinoma in two of two lymph nodes (2/2).G. Lymph node, level 12R, excision:- Metastatic carcinoma in one of one lymph node (1/1).H. Lymph node, level 12R, excision:- One lymph node, negative for malignancy (0/1).I. Lymph node, level 9, excision:- Fibroadipose tissue, no tumor or lymph node tissue seen.J. Lung, right lower lobe, lobectomy:- Residual adenocarcinoma, solid predominant (see comment and synoptic report).- Eight lymph nodes, negative for malignancy (0/8). at 2343 EDT Performed By: #### 6 6121-5 ####[facility] LABCLIA [id number] [place] [address] [place] FINAL PERFORMING LAB Normal [facility] Comment on above: Order Comment: Speci men Type: TISSUE SPECIMENOrdering Facility: [facility] Address: [address] [place] [address] Result Comment: Diag nostic interpretation performed at: [facility], [address] [place] [address], [place] [address] CLIA# [id number] Director: Grady Ndiaye MD Performed By: #### 6 6121-5 ####[facility] LABCLIA [id number] [place] [address] [place] GROSS DESCRIPTION [facility] Comment on above: Order Comment: Speci men Type: TISSUE SPECIMENOrdering Facility: [facility] Address: [address] [place] [id number] Result Comment: A. L ymph Node (Specify Site in Comments)Received fresh labeled lymph node level 7 is an irregular segment of red-purple soft tissue with attached adipose tissue consistent with lymph node candidate measuring 2.5 x 2.0 x 0.5 cm. Submitted in toto in cassette A1.B. Lymph Node (Specify Site in Comments)Received fresh labeled lymph node level 8 is an irregular segment of painter-purple soft tissue consistent with a lymph node candidate measuring 1.2 x 1.0 x 0.3 cm. Submitted in toto in cassette B1.C. Lymph Node (Specify Site in Comments)Received fresh labeled left node 10R is an irregular segment of painter-tay soft tissue consistent with a lymph node candidate measuring 1.0 x 0.9 x 0.3 cm. Submitted in toto in cassette C1.D. Lymph Node (Specify Site in Comments)Received fresh labeled lymph node 12R is an irregular segment of tay-painter soft tissue consistent with a lymph node candidate measuring 1.0 x 0.9 x 0.3 cm. Submitted in toto in cassette D1.E. Lymph Node (Specify Site in Comments)Fresh labeled lymph node 11R are multiple irregular fragments of tay-painter soft tissue consistent with fragmented lymph node candidate aggregating to six 2.5 x 1.5 x 0.3 cm. Submitted in toto in cassette E1.F. Lymph Node (Specify Site in Comments)See fresh labeled level 11 anterior (multiple nodes) are multiple (6) irregular fragments of tay-white glistening to painter-tay glistening soft tissue consistent with lymph node candidates ranging from 0.4 cm to 0.8 cm in greatest dimension. Submitted in toto in cassette F1.G. Lymph Node (Specify Site in Comments)Fresh labeled level 12R are multiple fragments of painter-tay soft tissue consistent with a fragmented lymph node candidate aggregating to 2.5 x 2.0 x 0.5 cm. Submitted in toto in cassette G1.H. Lymph Node (Specify Site in Comments)Received fresh labeled 12R lymph node are multiple irregular fragments of painter-tay soft tissue consistent with a fragmented lymph node candidate aggregating to 1.5 x 1.0 x 0.2 cm. Submitted in toto in cassette H1.I. Lymph Node (Specify Site in Comments)Received fresh labeled level 9 is an irregular segment of painter-tay soft tissue consistent with a lymph node candidate measuring 0.8 x 0.5 x 0.4 cm. Submitted in toto in cassette I1.Gross examination performed at [facility], [address] [place] [address] [id number]/CHRIS 05/01/24 2:00 PMJ. Lung, Right, ResectionReceived in formalin labeled right lower lobe lung is a 131.6 g, 13.0 x 12.5 x 2.8 cm lobe of lung. The pleura is purple-tay with focal anthracotic pigmentation and focal cobblestone changes. There are carlos at the superior aspect of the specimen. The carlos are removed and the underlying parenchyma is inked blue. A subpleural area of induration is identified along the superior aspect of the lung, the surface of which is inked orange. There is a 2.5 x 2.4 x 1.7 cm ocasio white, firm, ill-defined lesion located less than 0.1 cm from the inked pleura. The lesion is located 3.3 cm from the parenchymal resection margin, the bronchial resection margin and the vascular resection margin. The cut surface of the remainder of the lung is spongy, tay with peripheral atelectasis and moderate bronchiectasis. Yellow fatty changes are identified within the vessels. 12 painter-black possible lymph nodes are identified upon dissection ranging from 0.5 cm to 1.0 cm. Gross photos taken. 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 representative lung swqefbzakjO53-3 lymph node sqediexqdvJ16-9 lymph node candidatesLG May 02, 2024 1:07 PMGross examination performed at [facility], [address] [place] [address].[place] [address] Performed By: #### 6 6121-5 ####[facility] LABCLIA [id number] [place] [address] [place] SYNOPTIC REPORT LUNG Normal [facility] Comment on above: Order Comment: Speci men Type: TISSUE SPECIMENOrdering Facility: [facility] Address: [address] [place] [address] Result Comment: LUNG : RESECTION - All Ndvkuvtsj1yf Edition - Protocol posted: 10/26/2021PECIMEN Procedure: Lobectomy Specimen Laterality: RightTUMOR Tumor Focality: Single focus Tumor Site: Lower lobe of lung Tumor Size: Total Tumor Size (size of entire tumor): Greatest Dimension (Centimeters): 2.5 cm Histologic Type: Invasive solid adenocarcinoma Histologic Patterns Present: Acinar: 5% Histologic Patterns Present: Solid: 95% Histologic Grade: G3, poorly differentiated Spread Through Air Spaces (LEAH): Not identified Visceral Pleura Invasion: Present Direct Invasion of Adjacent Structures: Not applicable (no adjacent structures present) Treatment Effect: Present Percentage of Residual Viable Tumor: 75 % Percentage of Necrosis: 10 % Percentage of Stroma (includes fibrosis and inflammation): 15 % Lymphovascular Invasion: PresentMARGINS Margin Status for Invasive Carcinoma: All margins negative for invasive carcinoma Closest Margin(s) to Invasive Carcinoma: Bronchial Closest Margin(s) to Invasive Carcinoma: Vascular Closest Margin(s) to Invasive Carcinoma: Parenchymal Distance from Invasive Carcinoma to Closest Margin: 3.3 cm Margin Status for Non-Invasive Tumor: Not applicableREGIONAL LYMPH NODES Lymph Node(s) from Prior Procedures: Not included Regional Lymph Node Status: : Tumor present in regional lymph node(s) Number of Lymph Nodes with Tumor: 3 Shanice Site(s) with Tumor: 11R: Interlobar Shanice Site(s) with Tumor: 12R: Lobar Number of Lymph Nodes Examined: 17 Shanice Site(s) Examined: 8R: Para-esophageal (below flex) Shanice Site(s) Examined: 9R: Pulmonary ligament Shanice Site(s) Examined: 10R: Hilar Shanice Site(s) Examined: 11R: Interlobar Shanice Site(s) Examined: 12R: Lobar Shanice Site(s) Examined: 7: SubcarinalPATHOLOGIC STAGE CLASSIFICATION (pTNM, AJCC 8th Edition) Reporting of pT, pN, and (when applicable) pM categories is based on information available to the pathologist at the time the report is issued. As per the AJCC (Chapter 1, 8th Ed.) it is the managing physician???s responsibility to establish the final pathologic stage based upon all pertinent information, including but potentially not limited to this pathology report. TNM Descriptors: y (post-treatment) pT Category: pT2a pN Category: [id number] FINDINGS Additional Findings: None identified Performed By: #### 6 6121-5 ####[facility] LABCLIA [id number] [place] [address] [place] XR CHEST 1V FRONTAL PORTon 0 05-01-2024 XR CHEST 1V FRONTAL PORT Normal [facility] CNPNon 04-28-2024 CNPN Normal [facility] US ABD RIGHT UPPER QUADRANTo n 04-28-2024 US ABD RIGHT UPPER QUADRANT Invalid Interpretation Code [facility] US Abdomen RUQOrdered By: Noni ortega Provider on 04-28-2024 Interpretation and review of laboratory results Abnormal [facility] Radiology Result ACTIONABLE Abnormal [facility] Comment on above: This report contains an incidental or actionable finding. This finding may be a new finding separate from the reason your provider ordered the imaging test or it may be an already known finding that needs additional or continued follow-up. Because of this incidental or actionable finding, you may need another test (imaging or a different type of test). Please contact your provider for the next steps. [facility] US Abdomen RUQon 04-28-2024 IMPRESSION: Findings are suggestive of the liver cirrhosis. Echogenic focus along the gallbladder wall, presumably representing gallbladder polyp/cholesterol polyp. ACTIONABLE RESULT: FOLLOW-UP Acuity: Actionable Findings: Pancreas/Biliary Routing Code: PB_1 Recommendation: US ABD RT UPPER QUADRANT Time Frame: 6-12 months COMMUNICATION: Results will be communicated with the ordering provider via [employer] staff message or phone message by Imaging Support Services within 2 business days of report finalization. --END OF FINDING-- Acute Care Nurse: PSCB Transcribe Date/Time: Apr 28 2024 1:25P Dictated by : AISSATOU PAUL MD This examination was interpreted and the report reviewed and electronically signed by: AISSATOU PAUL MD on Apr 28 2024 1:34PM [facility] DIVISION OF RADIOLOGY * * *Final Report* * * DATE OF EXAM: Apr 28 2024 1:10PM WRU 1032 - US ABD RIGHT UPPER QUADRANT / PROCEDURE REASON: Elevated LFTs * * * * Physician Interpretation * * * * EXAM TITLE: US ABD RIGHT UPPER QUADRANT HISTORY: Liver cirrhosis. TECHNIQUE: Sonography of the right upper quadrant was performed. Images were obtained and stored in a permanent archive. MQ: URUQ_1 COMPARISON: CT abdomen pelvis on 04/01/2024 RESULT: Limitations: Pancreas: Normal sonographic appearance in the visualized portions. Portions obscured: tail Liver: Echotexture: Coarse and heterogeneous Echogenicity: Normal Surface contour: Nodular Lesions: None. MPV: Patent. Biliary: No intrahepatic biliary duct dilation. CBD: 4 mm in diameter. Gallbladder: Normal caliber -Contents: No cholelithiasis -Wall: 3 mm in thickness. There is a 6 x 3 x 6 mm echogenic focus along the gallbladder wall. -Other: Negative sonographic Cortez's sign. Right Kidney: Within normal limits. Ascites: None. DIVISION OF RADIOLOGY Provider, [facility] - 04/28/2024 * * *Final Report* * * DATE OF EXAM: Apr 28 2024 1:10PM RUST 1032 - US ABD RIGHT UPPER QUADRANT / PROCEDURE REASON: Elevated LFTs * * * * Physician Interpretation * * * * EXAM TITLE: US ABD RIGHT UPPER QUADRANT HISTORY: Liver cirrhosis. TECHNIQUE: Sonography of the right upper quadrant was performed. Images were obtained and stored in a permanent archive. MQ: URUQ_1 COMPARISON: CT abdomen pelvis on 04/01/2024 RESULT: Limitations: Pancreas: Normal sonographic appearance in the visualized portions. Portions obscured: tail Liver: Echotexture: Coarse and heterogeneous Echogenicity: Normal Surface contour: Nodular Lesions: None. MPV: Patent. Biliary: No intrahepatic biliary duct dilation. CBD: 4 mm in diameter. Gallbladder: Normal caliber -Contents: No cholelithiasis -Wall: 3 mm in thickness. There is a 6 x 3 x 6 mm echogenic focus along the gallbladder wall. -Other: Negative sonographic Cortez's sign. Right Kidney: Within normal limits. Ascites: None. IMPRESSION IMPRESSION: Findings are suggestive of the liver cirrhosis. Echogenic focus along the gallbladder wall, presumably representing gallbladder polyp/cholesterol polyp. ACTIONABLE RESULT: FOLLOW-UP Acuity: Actionable Findings: Pancreas/Biliary Routing Code: PB_1 Recommendation: US ABD RT UPPER QUADRANT Time Frame: 6-12 months COMMUNICATION: Results will be communicated with the ordering provider via [employer] staff message or phone message by Imaging Support Services within 2 business days of report finalization. --END OF FINDING-- Acute Care Nurse: BAYLEE Transcribe Date/Time: Apr 28 2024 1:25P Dictated by : AISSATOU PAUL MD This examination was interpreted and the report reviewed and electronically signed by: AISSATOU PAUL MD on Apr 28 2024 1:34PM [facility] Radiology Study observation (narrative) [facility] CNPNon 04-26-2024 CNPN Telephone (MEPRAD) VICKEY SCHWARTZ ([id number]) 1960 F Date Time Provider Department 04/26/24 [facility] MEPRAD During your visit today, we recorded the following information about you: Alf Castle DO 04/26/2024 12:32 PM Signed Kidney function stable. Some increase in liver enzymes. Needs IV Mg Sunday or Sunday. US liver as soon as able--scheduled for surgery 05/01. DO Imer Bhagat Pss, Ines 04/27/2024 10:07 AM Signed I called and let Vickey know the below information and she stated understanding. I did schedule her for both the ultrasound and IV MG for tomorrow 04/28/24 per her request, she confirmed date, times and locations Ines Belles Pss Allergies As of Date: 04/26/2024 Noted Allergy Reaction ALBUTEROL 03/18/2024 14 - Other: See Comments Comments: kyra Morrison ADHESIVE TAPE (ROSINS) 04/15/2018 9 - Itching Comments: Itching and redness Date Reviewed: 04/11/2024 Reviewed by: Kindra Lux Ma, MA - Fully Assessed Reason for Visit: Results [95] Primary Visit Diagnosis:Elevated LFTs [R79.89] Order(s):US ABD RIGHT UPPER QUADRANT [[id number]] Order #: [id number] FUTURE Prescriptions as of 04/27/2024 - cinacalcet (SENSIPAR) 30 mg tablet Take 1 tablet by mouth once daily. - levothyroxine (SYNTHROID) 50 mcg tablet Take 1 tablet by mouth daily at 6 am. - viinlnamujXERMM-lafkma-deuf yamileth (BMX 1:1:1) 1:1:1 liqd Take 5 mL by mouth every 4 hours as needed. - ursodiol (ACTIGALL) 300 mg capsule Take 1 capsule by mouth three times a day. - prochlorperazine (COMPAZINE) 10 mg tablet Take 1 tablet by mouth every 6 hours as needed. For chemotherapy induced nausea and vomiting. - folic acid 1 mg tablet Take 1 tablet by mouth once daily. - clotrimazole-betamethasone (LOTRISONE) lotion Betamethasone / Clotrimazole Clotrimazole/Betamethasone Dip [Clotrimazole-Betamethasone Lot] 30 ML TP NEEDED PRN For SKIN June 14, 2017 Active 06-14-2017 [facility] ([id number]) - tacrolimus (PROTOPIC) 0.1 % ointment Apply twice daily to affected areas on face - Clobetasol Propionate (TEMOVATE) 0.05 % external solution Apply to affected areas on the scalp twice a day. Dispense 100ml as 30 day supply. Problem List As Of Date 04/26/2024 Noted Resolved HYPERLIPIDEMIA MIXED [E78.2] 07/10/2005 Tobacco use disorder [F17.200] 07/10/2005 06/13/2016 Obesity [E66.9] 12/07/2009 Eczematous dermatitis [L30.9] 12/07/2010 11/03/2022 Contact dermatitis and other eczema, due to uns*12/07/2010 06/13/2016 Xerosis cutis [L85.3] 12/07/2010 06/13/2016 Pruritus [L29.9] 12/07/2010 06/13/2016 Excoriation [T14.8XXA] 12/07/2010 06/13/2016 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] Lung nodule [R91.1] 06/13/2016 Thrombocytopenia (HCC) [D69.6] 06/11/2017 11/03/2022 Melanosis [L81.4] 06/18/2017 Positive SHADI (antinuclear antibody) [R76.8] 06/18/2017 11/03/2022 ESR raised [R70.0] 06/18/2017 11/03/2022 Cutaneous lupus erythematosus [L93.2] 02/18/2018 Traumatic complete tear of left rotator cuff [S*05/16/2018 Milton's esophagus with dysplasia [K22.719] 11/28/2021 Interstitial lung disease (HCC) [J84.9] 09/25/2022 Systemic lupus erythematosus (HCC) [M32.9] 11/03/2022 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] 12/25/2022 Gallbladder polyp [K82.4] 01/09/2023 Obesity, Class I, BMI 30-34.9 [E66.811] 10/04/2023 RODRIGO (obstructive sleep apnea) [G47.33] 11/12/2023 Former light tobacco smoker [Z87.891] 11/12/2023 Non-small cell cancer of right lung (HCC) [C34.*11/21/2023 Hilar adenopathy [R59.0] 11/21/2023 Hypomagnesemia [E83.42] 01/18/2024 Acute kidney injury (HCC) [N17.9] 03/12/2024 Acute tubulo-interstitial nephritis [N10] 03/12/2024 GERD (gastroesophageal reflux disease) [K21.9] 03/18/2024 Elevated WBC count [D72.829] 03/18/2024 Anemia [D64.9] 03/18/2024 Hypercalcemia [E83.52] 04/01/2024 CRISTINO (acute kidney injury) (HCC) [N17.9] 04/01/2024 Encounter Status:Closed by [employer] on 04/27/24 [facility] CBC W Auto Differential pane l (Bld)on 04-25-2024 Basophils (Bld) [#/Vol] 0.03 10*3/uL Normal <0.11 [facility] Comment on above: Order Comment: Speci men Type: BLOOD SPECIMENOrdering Facility: [facility] Address: [address] [place] [address] Performed By: #### 5 7021-8 ####[facility] DAVISWNCLIA [id number] [place] [address] [place] Basophils/100 WBC (Bld) 0.4 % Normal [facility] Comment on above: Order Comment: Speci men Type: BLOOD SPECIMENOrdering Facility: [facility] Address: [address] [place] [address] Performed By: #### 5 7021-8 ####[facility] HOSPITALLALILIA [id number] [place] [address] [place] Differential cell count method Nom (Bld) Auto Normal [facility] Comment on above: Order Comment: Speci men Type: BLOOD SPECIMENOrdering Facility: [facility] Address: [address] [place] [address] Performed By: #### 5 7021-8 ####[facility] HOSPITALLIA [id number] [place] [address] [place] Eosinophils (Bld) [#/Vol] 0.03 10*3/uL Normal <0.46 [facility] Comment on above: Order Comment: Speci men Type: BLOOD SPECIMENOrdering Facility: [facility] Address: [address] [place] [address] Performed By: #### 5 7021-8 ####[facility] MILLWNCLIA [id number] [place] [address] [place] Eosinophils/100 WBC (Bld) 0.4 % Normal [facility] Comment on above: Order Comment: Speci men Type: BLOOD SPECIMENOrdering Facility: [facility] Address: [address] [place] [address] Performed By: #### 5 7021-8 ####[facility] HOSPITALLIA [id number] [place] [address] [place] Erythrocyte distribution width (RBC) [Ratio] 12.9 % Normal 11.5-15.0 [facility] Comment on above: Order Comment: Speci men Type: BLOOD SPECIMENOrdering Facility: [facility] Address: [address] [place] [address] Performed By: #### 5 7021-8 ####[facility] HOSPITALLALIUNIVERSITY OF [facility]PITAL [id number] [place] [address] [place] Hematocrit (Bld) [Volume fraction] 28.0 % Low 36.0-46.0 [facility] Comment on above: Order Comment: Speci men Type: BLOOD SPECIMENOrdering Facility: [facility] Address: [address] [place] [address] Performed By: #### 5 7021-8 ####[facility] HOSPITALNCUNIVERSITY OF U[facility] HOSPITAL [id number] [place] [address] [place] Hemoglobin (Bld) [Mass/Vol] 9.5 g/dL Low 11.5-15.5 [facility] Comment on above: Order Comment: Speci men Type: BLOOD SPECIMENOrdering Facility: [facility] Address: [address] [place] [address] Performed By: #### 5 7021-8 ####[facility] [id number] [place] [address] [place] Immature granulocytes (Bld) [#/Vol] 0.16 10*3/uL High <0.10 [facility] Comment on above: Order Comment: Speci men Type: BLOOD SPECIMENOrdering Facility: [facility] Address: [address] [place] [address] Performed By: #### 5 7021-8 ####[facility] HOSPITALNCLIA [id number] [place] [address] [place] Immature granulocytes/100 WBC (Bld) 2.1 % Normal [facility] Comment on above: Order Comment: Speci men Type: BLOOD SPECIMENOrdering Facility: [facility] Address: [address] [place] [address] Performed By: #### 5 7021-8 ####[facility] DAVISFARMVILLENCNENITA [id number] [place] [address] [place] Lymphocytes (Bld) [#/Vol] 0.91 10*3/uL Low 1.00-4.00 [facility] Comment on above: Order Comment: Speci men Type: BLOOD SPECIMENOrdering Facility: [facility] Address: [address] [place] [address] Performed By: #### 5 7021-8 ####[facility] HOSPITALNCUNIVERSITY OF [facility]OSPITAL [id number] [place] [address] [place] Lymphocytes/100 WBC (Bld) 12.0 % Normal [facility] Comment on above: Order Comment: Speci men Type: BLOOD SPECIMENOrdering Facility: [facility] Address: [address] [place] [address] Performed By: #### 5 7021-8 ####[facility] [id number] [place] [address] [place] MCH (RBC) [Entitic mass] 34.8 pg High 26.0-34.0 [facility] Comment on above: Order Comment: Speci men Type: BLOOD SPECIMENOrdering Facility: [facility] Address: [address] [place] [address] Performed By: #### 5 7021-8 ####[facility] HOSPITALNCLI [id number] [place] [address] [place] MCHC (RBC) [Mass/Vol] 33.9 g/dL Normal 30.5-36.0 [facility] Comment on above: Order Comment: Speci men Type: BLOOD SPECIMENOrdering Facility: [facility] Address: [address] [place] [address] Performed By: #### 5 7021-8 ####[facility] HOSPITALNCLIA [id number] [place] [address] [place] MCV (RBC) [Entitic vol] 102.6 fL High 80.0-100.0 [facility] Comment on above: Order Comment: Speci men Type: BLOOD SPECIMENOrdering Facility: [facility] Address: [address] [place] [address] Performed By: #### 5 7021-8 ####[facility] HOSPITALNCA [id number] [place] [address] [place] Monocytes (Bld) [#/Vol] 0.47 10*3/uL Normal <0.87 [facility] Comment on above: Order Comment: Speci men Type: BLOOD SPECIMENOrdering Facility: [facility] Address: [address] [place] [address] Performed By: #### 5 7021-8 ####[facility] HOSPITALLIA [id number] [place] [address] [place] Monocytes/100 WBC (Bld) 6.2 % Normal [facility] Comment on above: Order Comment: Speci men Type: BLOOD SPECIMENOrdering Facility: [facility] Address: [address] [place] [address] Performed By: #### 5 7021-8 ####[facility] ERA [id number] [place] [address] [place] Neutrophils (Bld) [#/Vol] 6.01 10*3/uL Normal 1.45-7.50 [facility] Comment on above: Order Comment: Speci men Type: BLOOD SPECIMENOrdering Facility: [facility] Address: [address] [place] [address] Performed By: #### 5 7021-8 ####[facility] HOSPITALNCLI [id number] [place] [address] [place] Neutrophils/100 WBC (Bld) 78.9 % Normal [facility] Comment on above: Order Comment: Speci men Type: BLOOD SPECIMENOrdering Facility: [facility] Address: [address] [place] [address] Performed By: #### 5 7021-8 ####[facility] HOSPITALNCIzabella [id number] [place] [address] [place] Nucleated RBC (Bld) [#/Vol] 10*3/uL Normal <0.01 [facility] Comment on above: Order Comment: Speci men Type: BLOOD SPECIMENOrdering Facility: [facility] Address: [address] [place] [address] Performed By: #### 5 7021-8 ####[facility] HOSPITALNCTHIAGO [id number] [place] [address] [place] Nucleated RBC/100 WBC (Bld) [Ratio] 0.0 /100 WBC Normal [facility] Comment on above: Order Comment: Speci men Type: BLOOD SPECIMENOrdering Facility: [facility] Address: [address] [place] [address] Performed By: #### 5 7021-8 ####[facility] HOSPITALNCLIA [id number] [place] [address] [place] Platelet mean volume (Bld) [Entitic vol] 9.2 fL Normal 9.0-12.7 [facility] Comment on above: Order Comment: Speci men Type: BLOOD SPECIMENOrdering Facility: [facility] Address: [address] [place] [address] Performed By: #### 5 7021-8 ####[facility] HOSPITALNCLIA [id number] [place] [address] [place] Platelets (Bld) [#/Vol] 206 10*3/uL Normal 150-400 [facility] Comment on above: Order Comment: Speci men Type: BLOOD SPECIMENOrdering Facility: [facility] Address: [address] [place] [address] Performed By: #### 5 7021-8 ####[facility] HOSPITALWNCLIA [id number] [place] [address] [place] RBC (Bld) [#/Vol] 2.73 10*6/uL Low 3.90-5.20 [facility] Comment on above: Order Comment: Speci men Type: BLOOD SPECIMENOrdering Facility: [facility] Address: [address] [place] [address] Performed By: #### 5 7021-8 ####[facility] HOSPITALWNCLIA [id number] [place] [address] [place] WBC (Bld) [#/Vol] 7.61 10*3/uL Normal 3.70-11.00 [facility] Comment on above: Order Comment: Speci men Type: BLOOD SPECIMENOrdering Facility: [facility] Address: [address] [place] [address] Performed By: #### 5 7021-8 ####[facility] HOSPITALNCLIA [id number] [place] [address] [place] Comprehensive metabolic 2000 panelon 04-25-2024 Albumin [Mass/Vol] 4.2 g/dL Normal 3.9-4.9 [facility] Comment on above: Order Comment: Speci men Type: BLOOD SPECIMENOrdering Facility: [facility] Address: [address] [place] [address] Performed By: #### 2 4323-8, 11052-2 ####[facility] HOSPITALNCLIA [id number] [place] [address] [place] ALP [Catalytic activity/Vol] 222 U/L High 34-123 [facility] Comment on above: Order Comment: Speci men Type: BLOOD SPECIMENOrdering Facility: [facility] Address: [address] [place] [address] Performed By: #### 2 4323-8, 86833-3 ####[facility] MAURIA [id number] [place] [address] [place] ALT [Catalytic activity/Vol] 69 U/L High 7-38 [facility] Comment on above: Order Comment: Speci men Type: BLOOD SPECIMENOrdering Facility: [facility] Address: [address] [place] [address] Performed By: #### 2 4323-8, ####[facility] DAVISJordanNCLIA [id number] [place] [address] [place] Anion gap [Moles/Vol] 12 mmol/L Normal 8-15 [facility] Comment on above: Order Comment: Speci men Type: BLOOD SPECIMENOrdering Facility: [facility] Address: [address] [place] [address] Performed By: #### 2 4323-8, ####[facility] HOSPITALVIETA [id number] [place] [address] [place] AST [Catalytic activity/Vol] 63 U/L High 13-35 [facility] Comment on above: Order Comment: Speci men Type: BLOOD SPECIMENOrdering Facility: [facility] Address: [address] [place] [address] Performed By: #### 2 4323-8, ####[facility] HOSPITALNCLIA [id number] [place] [address] [place] Bilirubin [Mass/Vol] 0.5 mg/dL Normal 0.2-1.3 [facility] Comment on above: Order Comment: Speci men Type: BLOOD SPECIMENOrdering Facility: [facility] Address: [address] [place] [address] Performed By: #### 2 4323-8, ####[facility] MILLTOWNCLIA [id number] [place] [address] [place] Calcium [Mass/Vol] 9.5 mg/dL Normal 8.5-10.2 [facility] Comment on above: Order Comment: Speci men Type: BLOOD SPECIMENOrdering Facility: [facility] Address: [address] [place] [address] Performed By: #### 2 432-8, ####[facility] MILLWNCLIA [id number] [place] [address] [place] Chloride [Moles/Vol] 100 mmol/L Normal 98-107 [facility] Comment on above: Order Comment: Speci men Type: BLOOD SPECIMENOrdering Facility: [facility] Address: [address] [place] [address] Performed By: #### 2 4328, ####[facility] HOSPITALLIA [id number] [place] [address] [place] CO2 [Moles/Vol] 26 mmol/L Normal 22-30 [facility] Comment on above: Order Comment: Speci men Type: BLOOD SPECIMENOrdering Facility: [facility] Address: [address] [place] [address] Performed By: #### 2 4323-8, ####[facility] MILLTOWNCLIA [id number] [place] [address] [place] Creatinine [Mass/Vol] 1.36 mg/dL High 0.58-0.96 [facility] Comment on above: Order Comment: Speci men Type: BLOOD SPECIMENOrdering Facility: [facility] Address: [address] [place] [address] Performed By: #### 2 4323-8, ####[facility] MILLFARMVILLENCUNIVERSITY OF UTAH HOSPITAL [id number] [place] [address] [place] Creatinine and Glomerular filtration rate.predicted panel (S/P/Bld) 44 mL/min/1.73m??? Low >=60 [facility] Comment on above: Order Comment: [place] sales Type: BLOOD SPECIMENOrdering Facility: [facility] Address: [address] [place] [address] Result Comment: Ann mated Glomerular Filtration Rate (eGFR) is calculated using the 2020 CKD-EPI creatinine equation. This equation utilizes serum creatinine, sex, and age as parameters. The creatinine assay has traceable calibration to isotope dilution-mass spectrometry. Refer to KDIGO guidelines for clinical interpretation. In patients with unstable renal function, e.g. those with acute kidney injury, the eGFR may not accurately reflect actual GFR. Performed By: #### 2 4323-8, 46793-2 ####[facility] [id number] [place] [address] [place] Glucose [Mass/Vol] 104 mg/dL High 74-99 [facility] Comment on above: Order Comment: [place] sales Type: BLOOD SPECIMENOrdering Facility: [facility] Address: [address] [place] [address] Result Comment: The [place] [employer] (ADA) provides guidance for cutoff values for fasting glucose and random glucose. The ADA defines fasting as no caloric intake for at least 8 hours. Fasting plasma glucose results between 100 to 125 mg/dL indicate increased risk for diabetes (prediabetes).Fasting plasma glucose results greater than or equal to 126 mg/dL meet the criteria for diagnosis of diabetes. In the absence of unequivocal hyperglycemia, results should be confirmed by repeat testing. In a patient with classic symptoms of hyperglycemia or hyperglycemic crisis, random plasma glucose results greater than or equal to 200 mg/dL meet the criteria for diagnosis of diabetes.Reference: Standards of Medical Care in Diabetes 2016, [place] [employer]. Diabetes Care. 2016.39(Suppl 1). Performed By: #### 2 4323-8, 52852-0 ####[facility] HOSPITALLIA [id number] [place] [address] [place] Potassium [Moles/Vol] 3.4 mmol/L Low 3.7-5.1 [facility] Comment on above: Order Comment: Speci men Type: BLOOD SPECIMENOrdering Facility: [facility] Address: [address] [place] [address] Performed By: #### 2 4323-8, 23348-6 ####[facility] MILLCHATA [id number] [place] [address] [place] Protein [Mass/Vol] 7.8 g/dL Normal 6.3-8.0 [facility] Comment on above: Order Comment: Speci men Type: BLOOD SPECIMENOrdering Facility: [facility] Address: [address] [place] [address] Performed By: #### 2 4323-8, 75052-2 ####[facility] ERINN [id number] [place] [address] [place] Sodium [Moles/Vol] 138 mmol/L Normal 136-144 [facility] Comment on above: Order Comment: Speci men Type: BLOOD SPECIMENOrdering Facility: [facility] Address: [address] [place] [address] Performed By: #### 2 4323-8, 67175-1 ####[facility] MILLCHATA [id number] [place] [address] [place] Urea nitrogen [Mass/Vol] 12 mg/dL Normal 7-21 [facility] Comment on above: Order Comment: Speci men Type: BLOOD SPECIMENOrdering Facility: [facility] Address: [address] [place] [address] Performed By: #### 2 4323-8, 64836-2 ####[facility] CENTERMARCINCLIA [id number] [place] [address] [place] Magnesium SerPl-mCncon 04-25 Magnesium [Mass/Vol] 1.4 mg/dL Low 1.7-2.3 [facility] Comment on above: Order Comment: Speci men Type: BLOOD SPECIMENOrdering Facility: [facility] Address: [address] [place] [address] Performed By: #### 2 4323-8, 56051-7 ####[facility] [id number] [place] [address] [place] CBC W Auto Differential pane l (Bld)on 04-15-2024 Basophils (Bld) [#/Vol] 10*3/uL Normal <0.11 [facility] Comment on above: Order Comment: Speci men Type: BLOOD SPECIMENOrdering Facility: [facility] Address: [address] [place] [address] Performed By: #### 5 7021-8 ####[facility] HOSPITALNCUNIVERSITY OF [facility] [id number] [place] [address] [place] Basophils/100 WBC (Bld) 0.2 % Normal [facility] Comment on above: Order Comment: Speci men Type: BLOOD SPECIMENOrdering Facility: [facility] Address: [address] [place] [address] Performed By: #### 5 7021-8 ####[facility] [id number] [place] [address] [place] Differential cell count method Nom (Bld) Auto Normal [facility] Comment on above: Order Comment: Speci men Type: BLOOD SPECIMENOrdering Facility: [facility] Address: [address] [place] [address] Performed By: #### 5 7021-8 ####[facility] HOSPITALNCLIA [id number] [place] [address] [place] Eosinophils (Bld) [#/Vol] 0.04 10*3/uL Normal <0.46 [facility] Comment on above: Order Comment: Speci men Type: BLOOD SPECIMENOrdering Facility: [facility] Address: [address] [place] [address] Performed By: #### 5 7021-8 ####[facility] ERINN [id number] [place] [address] [place] Eosinophils/100 WBC (Bld) 0.4 % Normal [facility] Comment on above: Order Comment: Speci men Type: BLOOD SPECIMENOrdering Facility: [facility] Address: [address] [place] [address] Performed By: #### 5 7021-8 ####[facility] HOSPITALNCNENITA [id number] [place] [address] [place] Erythrocyte distribution width (RBC) [Ratio] 14.5 % Normal 11.5-15.0 [facility] Comment on above: Order Comment: Speci men Type: BLOOD SPECIMENOrdering Facility: [facility] Address: [address] [place] [address] Performed By: #### 5 7021-8 ####[facility] HOSPITALNCTHIAGOA [id number] [place] [address] [place] Hematocrit (Bld) [Volume fraction] 27.5 % Low 36.0-46.0 [facility] Comment on above: Order Comment: Speci men Type: BLOOD SPECIMENOrdering Facility: [facility] Address: [address] [place] [address] Performed By: #### 5 7021-8 ####[facility] HOSPITALNCLIA [id number] [place] [address] [place] Hemoglobin (Bld) [Mass/Vol] 9.5 g/dL Low 11.5-15.5 [facility] Comment on above: Order Comment: Speci men Type: BLOOD SPECIMENOrdering Facility: [facility] Address: [address] [place] [address] Performed By: #### 5 7021-8 ####[facility] HOSPITALWVTLIA [id number] [place] [address] [place] Immature granulocytes (Bld) [#/Vol] 0.21 10*3/uL High <0.10 [facility] Comment on above: Order Comment: Speci men Type: BLOOD SPECIMENOrdering Facility: [facility] Address: [address] [place] [address] Performed By: #### 5 7021-8 ####[facility] ERA [id number] [place] [address] [place] Immature granulocytes/100 WBC (Bld) 2.0 % Normal [facility] Comment on above: Order Comment: Speci men Type: BLOOD SPECIMENOrdering Facility: [facility] Address: [address] [place] [address] Performed By: #### 5 7021-8 ####[facility] [id number] [place] [address] [place] Lymphocytes (Bld) [#/Vol] 0.67 10*3/uL Low 1.00-4.00 [facility] Comment on above: Order Comment: Speci men Type: BLOOD SPECIMENOrdering Facility: [facility] Address: [address] [place] [address] Performed By: #### 5 7021-8 ####[facility] ERA [id number] [place] [address] [place] Lymphocytes/100 WBC (Bld) 6.2 % Normal [facility] Comment on above: Order Comment: Speci men Type: BLOOD SPECIMENOrdering Facility: [facility] Address: [address] [place] [address] Performed By: #### 5 7021-8 ####[facility] [id number] [place] [address] [place] MCH (RBC) [Entitic mass] 35.1 pg High 26.0-34.0 [facility] Comment on above: Order Comment: Speci men Type: BLOOD SPECIMENOrdering Facility: [facility] Address: [address] [place] [address] Performed By: #### 5 7021-8 ####[facility] [id number] [place] [address] [place] MCHC (RBC) [Mass/Vol] 34.5 g/dL Normal 30.5-36.0 [facility] Comment on above: Order Comment: Speci men Type: BLOOD SPECIMENOrdering Facility: [facility] Address: [address] [place] [address] Performed By: #### 5 7021-8 ####[facility] [id number] [place] [address] [place] MCV (RBC) [Entitic vol] 101.5 fL High 80.0-100.0 [facility] Comment on above: Order Comment: Speci men Type: BLOOD SPECIMENOrdering Facility: [facility] Address: [address] [place] [address] Performed By: #### 5 7021-8 ####[facility] [id number] [place] [address] [place] Monocytes (Bld) [#/Vol] 0.34 10*3/uL Normal <0.87 [facility] Comment on above: Order Comment: Speci men Type: BLOOD SPECIMENOrdering Facility: [facility] Address: [address] [place] [address] Performed By: #### 5 7021-8 ####[facility] [id number] [place] [address] [place] Monocytes/100 WBC (Bld) 3.2 % Normal [facility] Comment on above: Order Comment: Speci men Type: BLOOD SPECIMENOrdering Facility: [facility] Address: [address] [place] [address] Performed By: #### 5 7021-8 ####[facility] [id number] [place] [address] [place] Neutrophils (Bld) [#/Vol] 9.46 10*3/uL High 1.45-7.50 [facility] Comment on above: Order Comment: Speci men Type: BLOOD SPECIMENOrdering Facility: [facility] Address: [address] [place] [address] Performed By: #### 5 7021-8 ####[facility] HOSPITALLIA [id number] [place] [address] [place] Neutrophils/100 WBC (Bld) 88.0 % Normal [facility] Comment on above: Order Comment: Speci men Type: BLOOD SPECIMENOrdering Facility: [facility] Address: [address] [place] [address] Performed By: #### 5 7021-8 ####[facility] ERA [id number] [place] [address] [place] Nucleated RBC (Bld) [#/Vol] 10*3/uL Normal <0.01 [facility] Comment on above: Order Comment: Speci men Type: BLOOD SPECIMENOrdering Facility: [facility] Address: [address] [place] [address] Performed By: #### 5 7021-8 ####[facility] HOSPITALLIA [id number] [place] [address] [place] Nucleated RBC/100 WBC (Bld) [Ratio] 0.0 /100 WBC Normal [facility] Comment on above: Order Comment: Speci men Type: BLOOD SPECIMENOrdering Facility: [facility] Address: [address] [place] [address] Performed By: #### 5 7021-8 ####[facility] HOSPITALWNCLIA [id number] [place] [address] [place] Platelet mean volume (Bld) [Entitic vol] 9.2 fL Normal 9.0-12.7 [facility] Comment on above: Order Comment: Speci men Type: BLOOD SPECIMENOrdering Facility: [facility] Address: [address] [place] [address] Performed By: #### 5 7021-8 ####[facility] DAVISMARIO ALBERTOA [id number] [place] [address] [place] Platelets (Bld) [#/Vol] 141 10*3/uL Low 150-400 [facility] Comment on above: Order Comment: Speci men Type: BLOOD SPECIMENOrdering Facility: [facility] Address: [address] [place] [address] Performed By: #### 5 7021-8 ####[facility] HOSPITALVIETA [id number] [place] [address] [place] RBC (Bld) [#/Vol] 2.71 10*6/uL Low 3.90-5.20 [facility] Comment on above: Order Comment: Speci men Type: BLOOD SPECIMENOrdering Facility: [facility] Address: [address] [place] [address] Performed By: #### 5 7021-8 ####[facility] HOSPITALLALILIA [id number] [place] [address] [place] WBC (Bld) [#/Vol] 10.74 10*3/uL Normal 3.70-11.00 [facility] Comment on above: Order Comment: Speci men Type: BLOOD SPECIMENOrdering Facility: [facility] Address: [address] [place] [address] Performed By: #### 5 7021-8 ####[facility] HOSPITALNCLIA [id number] [place] [address] [place] CNPNon 04-15-2024 CNPN Normal [facility] CT CHEST WO IVCONon 04-16-19 CT CHEST WO IVCON Normal [facility] Comprehensive metabolic 2000 panelon 04-15-2024 Albumin [Mass/Vol] 4.4 g/dL Normal 3.9-4.9 [facility] Comment on above: Order Comment: Speci men Type: BLOOD SPECIMENOrdering Facility: [facility] Address: [address] [place] [address] Performed By: #### 1 9123-9, 92730-1 ####[facility] MILLTOWNCLIA [id number] [place] [address] [place] ALP [Catalytic activity/Vol] 168 U/L High 34-123 [facility] Comment on above: Order Comment: Speci men Type: BLOOD SPECIMENOrdering Facility: [facility] Address: [address] [place] [address] Performed By: #### 1 9123-9, 65331-5 ####[facility] MILLTOWNCLIA [id number] [place] [address] [place] ALT [Catalytic activity/Vol] 102 U/L High 7-38 [facility] Comment on above: Order Comment: Speci men Type: BLOOD SPECIMENOrdering Facility: [facility] Address: [address] [place] [address] Performed By: #### 1 9123-9, 62479-4 ####[facility] MILLTOWNCLIA [id number] [place] [address] [place] Anion gap [Moles/Vol] 10 mmol/L Normal 8-15 [facility] Comment on above: Order Comment: Speci men Type: BLOOD SPECIMENOrdering Facility: [facility] Address: [address] [place] [address] Performed By: #### 1 9123-9, 81337-0 ####[facility] HOSPITALWLALILIA [id number] [place] [address] [place] AST [Catalytic activity/Vol] 58 U/L High 13-35 [facility] Comment on above: Order Comment: Speci men Type: BLOOD SPECIMENOrdering Facility: [facility] Address: [address] [place] [address] Performed By: #### 1 9123-9, 33885-4 ####[facility] MILLTOWNCLIA [id number] [place] [address] [place] Bilirubin [Mass/Vol] 0.5 mg/dL Normal 0.2-1.3 [facility] Comment on above: Order Comment: Speci men Type: BLOOD SPECIMENOrdering Facility: [facility] Address: [address] [place] [address] Performed By: #### 1 9123-9, 09167-4 ####[facility] HOSPITALWLALILIA [id number] [place] [address] [place] Calcium [Mass/Vol] 10.3 mg/dL High 8.5-10.2 [facility] Comment on above: Order Comment: Speci men Type: BLOOD SPECIMENOrdering Facility: [facility] Address: [address] [place] [address] Performed By: #### 1 9123-9, 59860-3 ####[facility] MILLWNCLIA [id number] [place] [address] [place] Chloride [Moles/Vol] 96 mmol/L Low 98-107 [facility] Comment on above: Order Comment: Speci men Type: BLOOD SPECIMENOrdering Facility: [facility] Address: [address] [place] [address] Performed By: #### 1 9123-9, 92770-3 ####[facility] MILLWNCLIA [id number] [place] [address] [place] CO2 [Moles/Vol] 27 mmol/L Normal 22-30 [facility] Comment on above: Order Comment: Medina sales Type: BLOOD SPECIMENOrdering Facility: [facility] Address: [address] [place] [address] Performed By: #### 1 9123-9, 05489-0 ####[facility] [id number] [place] [address] [place] Creatinine [Mass/Vol] 1.23 mg/dL High 0.58-0.96 [facility] Comment on above: Order Comment: Medina sales Type: BLOOD SPECIMENOrdering Facility: [facility] Address: [address] [place] [address] Performed By: #### 1 9123-9, ####[facility] HOSPITALNCLIA [id number] [place] [address] [place] Creatinine and Glomerular filtration rate.predicted panel (S/P/Bld) 50 mL/min/1.73m??? Low >=60 [facility] Comment on above: Order Comment: Medina sales Type: BLOOD SPECIMENOrdering Facility: [facility] Address: [address] [place] [address] Result Comment: Ann mated Glomerular Filtration Rate (eGFR) is calculated using the 2020 CKD-EPI creatinine equation. This equation utilizes serum creatinine, sex, and age as parameters. The creatinine assay has traceable calibration to isotope dilution-mass spectrometry. Refer to KDIGO guidelines for clinical interpretation. In patients with unstable renal function, e.g. those with acute kidney injury, the eGFR may not accurately reflect actual GFR. Performed By: #### 1 9123-9, ####[facility]PITALLIA [id number] [place] [address] [place] Glucose [Mass/Vol] 94 mg/dL Normal 74-99 [facility] Comment on above: Order Comment: Medina sales Type: BLOOD SPECIMENOrdering Facility: [facility] Address: [address] [place] [address] Result Comment: The [place] Diabetes Association (ADA) provides guidance for cutoff values for fasting glucose and random glucose. The ADA defines fasting as no caloric intake for at least 8 hours. Fasting plasma glucose results between 100 to 125 mg/dL indicate increased risk for diabetes (prediabetes).Fasting plasma glucose results greater than or equal to 126 mg/dL meet the criteria for diagnosis of diabetes. In the absence of unequivocal hyperglycemia, results should be confirmed by repeat testing. In a patient with classic symptoms of hyperglycemia or hyperglycemic crisis, random plasma glucose results greater than or equal to 200 mg/dL meet the criteria for diagnosis of diabetes.Reference: Standards of Medical Care in Diabetes 2016, [place] [employer]. Diabetes Care. 2016.39(Suppl 1). Performed By: #### 1 9123-9, 07996-9 ####[facility] [id number] [place] [address] [place] Potassium [Moles/Vol] 3.4 mmol/L Low 3.7-5.1 [facility] Comment on above: Order Comment: Speci men Type: BLOOD SPECIMENOrdering Facility: [facility] Address: [address] [place] [address] Performed By: #### 1 9123-9, 88300-6 ####[facility] [id number] [place] [address] [place] Protein [Mass/Vol] 7.7 g/dL Normal 6.3-8.0 [facility] Comment on above: Order Comment: Speci men Type: BLOOD SPECIMENOrdering Facility: [facility] Address: [address] [place], [place] [address] Performed By: #### 1 9123-9, 45345-7 ####[facility] [id number] [place] [address] [place] Sodium [Moles/Vol] 133 mmol/L Low 136-144 [facility] Comment on above: Order Comment: Speci men Type: BLOOD SPECIMENOrdering Facility: [facility] Address: [address] [place] [address] Performed By: #### 1 9123-9, 73700-6 ####[facility] ERINN [id number] [place] [address] [place] Urea nitrogen [Mass/Vol] 15 mg/dL Normal 7-21 [facility] Comment on above: Order Comment: Speci men Type: BLOOD SPECIMENOrdering Facility: [facility] Address: [address] [place] [address] Performed By: #### 1 9123-9, 03562-3 ####[facility] DAVISFARMVILLETARIQ [id number] [place] [address] [place] Magnesium SerPl-mCncon 04-15 Magnesium [Mass/Vol] 1.6 mg/dL Low 1.7-2.3 [facility] Comment on above: Order Comment: Speci men Type: BLOOD SPECIMENOrdering Facility: [facility] Address: [address] [place] [address] Performed By: #### 1 9123-9, 93665-9 ####[facility] DAVISFARMVILLENCTHIAGOA [id number] [place] [address] [place] PT panel Coag (PPP)on 2024 INR Coag (PPP) [Relative time] 1.0 {INR} Normal 0.9-1.3 [facility] Comment on above: Order Comment: Kushali men Type: BLOOD SPECIMENOrdering Facility: [facility] Address: [address] [place] [address] Result Comment: Adilia min K Antagonist (VKA) Therapeutic Range: INR 2 to 3 (Target INR of 2.5)Note: For patients treated with VKA drugs, such as warfarin, the [place] [employer] 2012 Guideline recommends a therapeutic INR range of 2 to 3 (target INR of 2.5). This recommendation includes high-risk patients with antiphospholipid syndrome with previous arterial or venous thromboembolism, current-generation mechanical or bioprosthetic aortic heart valve replacement.Note: Patients with mechanical aortic valve replacement and additional risk factors for thromboembolic events (atrial fibrillation, previous thromboembolism, LV dysfunction, hypercoagulable conditions) or an older generation mechanical AVR (i.e., ball in-Cage) or any mechanical MVR should have a INR therapeutic range of 2.5 to 3.5 (target INR of 3).Candace GH, et al. Chest 2012, 141:7S-47SNishimura RA, et al. [facility] 2017, 70: 252-289 Performed By: #### 3 4528-0, 14582-4 ####[facility] HOSPITALNCA [id number] [place] [address] [place] PT Coag (PPP) [Time] 10.1 s Normal <13.1 [facility] Comment on above: Order Comment: Medina sales Type: BLOOD SPECIMENOrdering Facility: [facility] Address: [address] [place] [address] Performed By: #### 3 4528-0, 51194-4 ####[facility] ERA [id number] [place] [address] [place] STAPHYLOCOCCUS AUREUS AND MR SA SCREEN, PCR, NASALon 04-15-2024 S. aureus and MRSA panel DESIREE+probe (Nose) Methicillin-SUSCEPTIBLE Staphylococcus aureus Detected Abnormal Not Detected [facility] Comment on above: Order Comment: Medina sales Type: SWABOrdering Facility: [facility] Address: [address] [place] [address] Performed By: #### S APCR ####[facility] LABCLIA [id number] [place] [address] [place] TSH SerPl-aCncon 04-15-2024 TSH Qn 74.600 m[IU]/L High 0.270-4.200 [facility] Comment on above: Order Comment: Medina sales Type: BLOOD SPECIMENOrdering Facility: [facility] Address: [address] [place] [address] Performed By: #### 3 016-3 ####[facility] LABCLIA [id number] [place] [address] [place] TYPE AND SCREEN,30 DAYon ABO B Normal [facility] Comment on above: Order Comment: Speci men Type: BLOOD SPECIMENOrdering Facility: [facility] Address: [address] [place] [address] Performed By: #### T SCR30 ####[facility] BLOOD BANKIA [id number] [place] [address] [place] Rh Nom (Bld) Positive Normal [facility] Comment on above: Order Comment: Speci men Type: BLOOD SPECIMENOrdering Facility: [facility] Address: [address] [place] [address] Performed By: #### T SCR30 ####[facility] BLOOD BANKIA [id number] [place] [address] [place] URINALYSIS, DIPSTICK ONLYon 04-15-2024 Bilirubin Ql (U) Negative Normal Negative [facility] Comment on above: Order Comment: Speci men Type: URINE SPECIMENOrdering Facility: [facility] Address: [address] [place] [address] Performed By: #### U A ####[facility] LABCLIA [id number] [place] [address] [place] Clarity (Unsp spec) Clear Normal Clear [facility] Comment on above: Order Comment: Speci men Type: URINE SPECIMENOrdering Facility: [facility] Address: [address] [place] [address] Performed By: #### U A ####[facility] LABCLIA [id number] [place] [address] [place] Color (U) Yellow Normal Yellow [facility] Comment on above: Order Comment: Speci men Type: URINE SPECIMENOrdering Facility: [facility] Address: [address] [place] [address] Performed By: #### U A ####[facility] LABCLIA [id number] [address] [place] [address] [place] Glucose Test strip (U) [Mass/Vol] Negative Normal Negative [facility] Comment on above: Order Comment: Speci men Type: URINE SPECIMENOrdering Facility: [facility] Address: [address] [place] [address] Performed By: #### U A ####[facility] LABCLIA [id number] [address], [facility]95 [place] Hemoglobin Ql (U) Negative Normal Negative [facility] Comment on above: Order Comment: Speci men Type: URINE SPECIMENOrdering Facility: [facility] Address: [address] [place] [address] Performed By: #### U A ####[facility] LABCLIA [id number] [address] [place] [address] [place] Ketones Ql (U) Negative Normal Negative [facility] Comment on above: Order Comment: Speci men Type: URINE SPECIMENOrdering Facility: [facility] Address: [address] [place] [address] Performed By: #### U A ####[facility] LABCLIA [id number] [address], [facility]95 [place] Leukocyte esterase Test strip Ql (U) Trace Abnormal Negative [facility] Comment on above: Order Comment: Speci men Type: URINE SPECIMENOrdering Facility: [facility] Address: [address] [place] [address] Performed By: #### U A ####[facility] LABCLIA [id number] [address] [place] [address] [place] Nitrite Ql (U) Negative Normal Negative [facility] Comment on above: Order Comment: Speci men Type: URINE SPECIMENOrdering Facility: [facility] Address: [address] [place] [address] Performed By: #### U A ####[facility] LABGIFF[facility] [id number] [place] [address] [place] pH (U) 6.0 [pH] Normal <8.5 [facility] Comment on above: Order Comment: Speci men Type: URINE SPECIMENOrdering Facility: [facility] Address: [address] [place] [address] Performed By: #### U A ####[facility] [id number] [place] [address] [place] Protein (U) [Mass/Vol] Negative Normal Negative [facility] Comment on above: Order Comment: Speci men Type: URINE SPECIMENOrdering Facility: [facility] Address: [address] [place] [address] Performed By: #### U A ####[facility] [id number] [place] [address] [place] Specific gravity (U) [Rel density] 1.009 Normal 1.005-1.030 [facility] Comment on above: Order Comment: Speci men Type: URINE SPECIMENOrdering Facility: [facility] Address: [address] [place] [address] Performed By: #### U A ####[facility] [id number] [place] [address] [place] Urobilinogen Ql (U) 0.2 EU/dL Normal 0.2-1.0 EU/dL [facility] Comment on above: Order Comment: Speci men Type: URINE SPECIMENOrdering Facility: [facility] Address: [address] [place] [address] Performed By: #### U A ####[facility] [id number] [place] [address] [place] aPTT PPPon 04-15-2024 aPTT Coag (PPP) [Time] 25.6 s Normal 23.0-32.4 [facility] Comment on above: Order Comment: Speci men Type: BLOOD SPECIMENOrdering Facility: [facility] Address: [address] [place] [address] Performed By: #### 3 4528-0, 09243-4 ####[facility]OSPITALNENITA [id number] [place] [address] [place] CBC W Auto Differential pane l (Bld)on 04-11-2024 Basophils (Bld) [#/Vol] 0.10 10*3/uL Normal <0.11 [facility] Comment on above: Order Comment: Speci men Type: BLOOD SPECIMENOrdering Facility: [facility] Address: [address] [place] [address] Performed By: #### 5 7021-8 ####[facility] [id number] [address] LABORATORYCLIA [id number] [place] [address] [place] Basophils/100 WBC (Bld) 1.0 % Normal [facility] Comment on above: Order Comment: Speci men Type: BLOOD SPECIMENOrdering Facility: [facility] Address: [address] [place] [address] Performed By: #### 5 7021-8 ####[facility] [id number] [address] LABORATORYCLIA [id number] [address] [place] Differential cell count method Nom (Bld) Manual Normal [facility] Comment on above: Order Comment: Speci men Type: BLOOD SPECIMENOrdering Facility: [facility] Address: [address] [place] [address] Performed By: #### 5 7021-8 ####[facility] CENTERTOWNCLIA [id number] [address] LABORATORYCLIA [id number] [place] [address] [place] Eosinophils (Bld) [#/Vol] 0.00 10*3/uL Normal <0.46 [facility] Comment on above: Order Comment: Speci men Type: BLOOD SPECIMENOrdering Facility: [facility] Address: [address] [place] [address] Performed By: #### 5 7021-8 ####[facility]ITALWNCLIA [id number] [address] LABORATORYCLIA [id number] [address] [place] Eosinophils/100 WBC (Bld) 0.0 % Normal [facility] Comment on above: Order Comment: Speci men Type: BLOOD SPECIMENOrdering Facility: [facility] Address: [address] [place] [address] Performed By: #### 5 7021-8 ####[facility]PITALLIA [id number] [address] LABORATORYCLIA [id number] [place] [address] [place] Erythrocyte distribution width (RBC) [Ratio] 15.1 % High 11.5-15.0 [facility] Comment on above: Order Comment: Speci men Type: BLOOD SPECIMENOrdering Facility: [facility] Address: [address] [place] [address] Performed By: #### 5 7021-8 ####[facility]ITALWNCLIA [id number] [address] LABORATORYIA [id number] [place] [address] [place] Hematocrit (Bld) [Volume fraction] 28.0 % Low 36.0-46.0 [facility] Comment on above: Order Comment: Speci men Type: BLOOD SPECIMENOrdering Facility: [facility] Address: [address] [place] [address] Performed By: #### 5 7021-8 ####[facility] MILLTOWNCLIA [id number] [address] LABORATORYCLIA [id number] [place] [address] [place] Hemoglobin (Bld) [Mass/Vol] 9.9 g/dL Low 11.5-15.5 [facility] Comment on above: Order Comment: Speci men Type: BLOOD SPECIMENOrdering Facility: [facility] Address: [address] [place] [address] Performed By: #### 5 7021-8 ####[facility]ITALWNCLIA [id number] [address] LABORATORYCLIA [id number] [place] [address] [place] Lymphocytes (Bld) [#/Vol] 2.73 10*3/uL Normal 1.00-4.00 [facility] Comment on above: Order Comment: Speci men Type: BLOOD SPECIMENOrdering Facility: [facility] Address: [address] [place] [address] Performed By: #### 5 7021-8 ####[facility]OS[facility]ITALWNCLIA [id number] [address] LABORATORYCLIA [id number] [place] [address] [place] Lymphocytes/100 WBC (Bld) 26.0 % Normal [facility] Comment on above: Order Comment: Speci men Type: BLOOD SPECIMENOrdering Facility: [facility] Address: [address] [place], [place] [address] Performed By: #### 5 7021-8 ####[facility] MILLTOWNCLIA [id number] [address] LABORATORYCLIA [id number] [place] [address] [place] [facility] MCH (RBC) [Entitic mass] 35.5 pg High 26.0-34.0 [facility] Comment on above: Order Comment: Speci men Type: BLOOD SPECIMENOrdering Facility: [facility] Address: [address] [place] [address] Performed By: #### 5 7021-8 ####[facility] HOSPITALLALIA [id number] [address] LABORATORYCLIA [id number] [address] STATES OF [facility] MCHC (RBC) [Mass/Vol] 35.4 g/dL Normal 30.5-36.0 [facility] Comment on above: Order Comment: Speci men Type: BLOOD SPECIMENOrdering Facility: [facility] Address: [address] [place] [address] Performed By: #### 5 7021-8 ####[facility] ERA [id number] [address] LABORATORYCLIA [id number] [address] STATES [facility] MCV (RBC) [Entitic vol] 100.4 fL High 80.0-100.0 [facility] Comment on above: Order Comment: Speci men Type: BLOOD SPECIMENOrdering Facility: [facility] Address: [address] [place], [place] [address] Performed By: #### 5 7021-8 ####[facility] HOSPITALNCLIA [id number] [address] [facility] LABORATORYCLIA [id number] [place] [address] [place] Metamyelocytes/100 WBC (Bld) 2.0 % Normal [facility] Comment on above: Order Comment: Speci men Type: BLOOD SPECIMENOrdering Facility: [facility] Address: [address] [place] [address] Performed By: #### 5 7021-8 ####[facility] MILLTOWNCLIA [id number] [address] LABORATORYCLIA [id number] [place] [address] [place] Monocytes (Bld) [#/Vol] 0.52 10*3/uL Normal <0.87 [facility] Comment on above: Order Comment: Speci men Type: BLOOD SPECIMENOrdering Facility: [facility] Address: [address] [place] [address] Performed By: #### 5 7021-8 ####[facility] MILLTOWNCLIA [id number] [address] LABORATORYCLIA [id number] [place] [address] [place] Monocytes/100 WBC (Bld) 5.0 % Normal [facility] Comment on above: Order Comment: Speci men Type: BLOOD SPECIMENOrdering Facility: [facility] Address: [address] [place] [address] Performed By: #### 5 7021-8 ####[facility] MILLTOWNCLIA [id number] [address] LABORATORYCLIA [id number] [place] [address] [place] MYELO% 3.0 % Normal [facility] Comment on above: Order Comment: Speci men Type: BLOOD SPECIMENOrdering Facility: [facility] Address: [address] [place] [address] Performed By: #### 5 7021-8 ####[facility] MILLTOWNCLIA [id number] [address] LABORATORYCLIA [id number] [place] [address] [place] Neutrophils (Bld) [#/Vol] 6.61 10*3/uL Normal 1.45-7.50 [facility] Comment on above: Order Comment: Speci men Type: BLOOD SPECIMENOrdering Facility: [facility] Address: [address] [place] [address] Performed By: #### 5 7021-8 ####[facility] HOSPITALNCLIA [id number] [address] LABORATORYCLIA [id number] [place] [address] [place] Neutrophils/100 WBC (Bld) 63.0 % Normal [facility] Comment on above: Order Comment: Speci men Type: BLOOD SPECIMENOrdering Facility: [facility] Address: [address] [place] [address] Performed By: #### 5 7021-8 ####[facility]OS[facility]ITALWNCLIA [id number] [address] LABORATORYCLIA [id number] [place] [address] [place] Nucleated RBC (Bld) [#/Vol] 10*3/uL Normal <0.01 [facility] Comment on above: Order Comment: Speci men Type: BLOOD SPECIMENOrdering Facility: [facility] Address: [address] [place] [address] Performed By: #### 5 7021-8 ####[facility] MILLTOWNCLIA [id number] [address] [facility] LABORATORYCLIA [id number] [place] [address] [place] Nucleated RBC/100 WBC (Bld) [Ratio] 0.0 /100 WBC Normal [facility] Comment on above: Order Comment: Speci men Type: BLOOD SPECIMENOrdering Facility: [facility] Address: [address] [place] [address] Performed By: #### 5 7021-8 ####[facility]OSPITALWNCLIA [id number] [address] LABORATORYCLIA [id number] [place] [address] [place] Platelet mean volume (Bld) [Entitic vol] 9.6 fL Normal 9.0-12.7 [facility] Comment on above: Order Comment: Speci men Type: BLOOD SPECIMENOrdering Facility: [facility] Address: [address] [place] [address] Performed By: #### 5 7021-8 ####[facility] HOSPITALWNCLIA [id number] [address] LABORATORYCLIA [id number] [place] [address] [place] Platelets (Bld) [#/Vol] 154 10*3/uL Normal 150-400 [facility] Comment on above: Order Comment: Speci men Type: BLOOD SPECIMENOrdering Facility: [facility] Address: [address] [place] [address] Performed By: #### 5 7021-8 ####[facility] MILLWNCLIA [id number] [address] LABORATORYCLIA [id number] [place] [address] [place] Platelets Estimate (Bld) [#/Vol] Adequate Normal [facility] Comment on above: Order Comment: Speci men Type: BLOOD SPECIMENOrdering Facility: [facility] Address: [address] [place] [address] Performed By: #### 5 7021-8 ####[facility] DAVISTOWNCLIA [id number] [address] LABORATORYCLIA [id number] [address] [place] RBC (Bld) [#/Vol] 2.79 10*6/uL Low 3.90-5.20 [facility] Comment on above: Order Comment: Speci men Type: BLOOD SPECIMENOrdering Facility: [facility] Address: [address] [place] [address] Performed By: #### 5 7021-8 ####[facility] HOSPITALWNCLIA [id number] [address] LABORATORYCLIA [id number] [place] [address] [place] RED CELL MORPH Reviewed: unremarkable Normal [facility] Comment on above: Order Comment: Speci men Type: BLOOD SPECIMENOrdering Facility: [facility] Address: [address] [place] [address] Performed By: #### 5 7021-8 ####[facility] RANJITHWNCLIA [id number] [address] LABORATORYCLIA [id number] [place] [address] [place] WBC (Bld) [#/Vol] 10.49 10*3/uL Normal 3.70-11.00 [facility] Comment on above: Order Comment: Speci men Type: BLOOD SPECIMENOrdering Facility: [facility] Address: [address] [place] [address] Performed By: #### 5 7021-8 ####[facility] MILLTOWNCLIA [id number] [address] LABORATORYCLIA [id number] [place] [address] [place] WBC Left Shift Ql (Bld) Present Normal [facility] Comment on above: Order Comment: Speci men Type: BLOOD SPECIMENOrdering Facility: [facility] Address: [facility] [place] [address] Performed By: #### 5 7021-8 ####[facility]OSPITALWNCLIA [id number] [address] LABORATORYCLIA [id number] [place] [address] [place] CNOVSPon 04-11-2024 CNOVSP Normal [facility] CNPNon 04-11-2024 CNPN Normal [facility] Comprehensive metabolic 2000 panelon 04-11-2024 Albumin [Mass/Vol] 4.5 g/dL Normal 3.9-4.9 [facility] Comment on above: Order Comment: Speci men Type: BLOOD SPECIMENOrdering Facility: [facility] Address: [facility] [place] [address] Performed By: #### 2 4323-8, 33393-1 ####[facility] HOSPITALNCLIA [id number] [place] [address] [place] ALP [Catalytic activity/Vol] 152 U/L High 34-123 [facility] Comment on above: Order Comment: Speci men Type: BLOOD SPECIMENOrdering Facility: [facility] Address: [facility] [place] [address] Performed By: #### 2 4323-8, ####[facility]OS[facility]ITALWNCLIA [id number] [place] [address] [place] ALT [Catalytic activity/Vol] 123 U/L High 7-38 [facility] Comment on above: Order Comment: Speci men Type: BLOOD SPECIMENOrdering Facility: [facility] Address: [address] [place] [address] Performed By: #### 2 4323-8, ####[facility] KARINCNENITA [id number] [place] [address] [place] Anion gap [Moles/Vol] 11 mmol/L Normal 8-15 [facility] Comment on above: Order Comment: Speci men Type: BLOOD SPECIMENOrdering Facility: [facility] Address: [address] [place] [address] Performed By: #### 2 4323-8, ####[facility] DAVISJUANJONCNENITA [id number] [place] [address] [place] AST [Catalytic activity/Vol] 74 U/L High 13-35 [facility] Comment on above: Order Comment: Speci men Type: BLOOD SPECIMENOrdering Facility: [facility] Address: [address] [place] [address] Performed By: #### 2 4323-8, 12226-9 ####[facility] DAVISJUANJONCTHIAGOA [id number] [place] [address] [place] Bilirubin [Mass/Vol] 0.4 mg/dL Normal 0.2-1.3 [facility] Comment on above: Order Comment: Speci men Type: BLOOD SPECIMENOrdering Facility: [facility] Address: [address] [place] [address] Performed By: #### 2 4323-8, ####[facility] CENTERMARCINCLIA [id number] [place] [address] [place] Calcium [Mass/Vol] 10.2 mg/dL Normal 8.5-10.2 [facility] Comment on above: Order Comment: Speci men Type: BLOOD SPECIMENOrdering Facility: [facility] Address: [address] [place] [address] Performed By: #### 2 4323-8, 74820-4 ####[facility] HOSPITALNCLIA [id number] [place] [address] [place] Chloride [Moles/Vol] 96 mmol/L Low 98-107 [facility] Comment on above: Order Comment: Speci men Type: BLOOD SPECIMENOrdering Facility: [facility] Address: [address] [place] [address] Performed By: #### 2 4323-8, ####[facility] HOSPITALNCLIA [id number] [place] [address] [place] CO2 [Moles/Vol] 25 mmol/L Normal 22-30 [facility] Comment on above: Order Comment: Speci men Type: BLOOD SPECIMENOrdering Facility: [facility] Address: [address] [place] [address] Performed By: #### 2 4323-8, 01136-1 ####[facility] HOSPITALNCLIA [id number] [place] [address] [place] Creatinine [Mass/Vol] 1.44 mg/dL High 0.58-0.96 [facility] Comment on above: Order Comment: Speci men Type: BLOOD SPECIMENOrdering Facility: [facility] Address: [address] [place] [address] Performed By: #### 2 4323-8, ####[facility] HOSPITALNCLIA [id number] [place] [address] [place] Creatinine and Glomerular filtration rate.predicted panel (S/P/Bld) 41 mL/min/1.73m??? Low >=60 [facility] Comment on above: Order Comment: Speci men Type: BLOOD SPECIMENOrdering Facility: [facility] Address: [address] [place] [address] Result Comment: Ann mated Glomerular Filtration Rate (eGFR) is calculated using the 2020 CKD-EPI creatinine equation. This equation utilizes serum creatinine, sex, and age as parameters. The creatinine assay has traceable calibration to isotope dilution-mass spectrometry. Refer to KDIGO guidelines for clinical interpretation. In patients with unstable renal function, e.g. those with acute kidney injury, the eGFR may not accurately reflect actual GFR. Performed By: #### 2 4323-8, 69024-8 ####[facility] HOSPITALWLALILIA [id number] [place] [address] [place] Glucose [Mass/Vol] 87 mg/dL Normal 74-99 [facility] Comment on above: Order Comment: Speci men Type: BLOOD SPECIMENOrdering Facility: [facility] Address: [address] [place] [address] Result Comment: The [place] Diabetes Association (ADA) provides guidance for cutoff values for fasting glucose and random glucose. The ADA defines fasting as no caloric intake for at least 8 hours. Fasting plasma glucose results between 100 to 125 mg/dL indicate increased risk for diabetes (prediabetes).Fasting plasma glucose results greater than or equal to 126 mg/dL meet the criteria for diagnosis of diabetes. In the absence of unequivocal hyperglycemia, results should be confirmed by repeat testing. In a patient with classic symptoms of hyperglycemia or hyperglycemic crisis, random plasma glucose results greater than or equal to 200 mg/dL meet the criteria for diagnosis of diabetes.Reference: Standards of Medical Care in Diabetes 2016, [place] [employer] Association. Diabetes Care. 2016.39(Suppl 1). Performed By: #### 2 4323-8, ####[facility] HOSPITALWVTLIA [id number] [place] [address] [place] Potassium [Moles/Vol] 3.7 mmol/L Normal 3.7-5.1 [facility] Comment on above: Order Comment: Kushali men Type: BLOOD SPECIMENOrdering Facility: [facility] Address: [address] [place] [address] Performed By: #### 2 4323-8, ####[facility] HOSPITALLIA [id number] [place] [address] [place] Protein [Mass/Vol] 7.9 g/dL Normal 6.3-8.0 [facility] Comment on above: Order Comment: Speci men Type: BLOOD SPECIMENOrdering Facility: [facility] Address: [address] [place] [address] Performed By: #### 2 4323-8, 97381-2 ####[facility] MILLCHATA [id number] [place] [address] [place] Sodium [Moles/Vol] 132 mmol/L Low 136-144 [facility] Comment on above: Order Comment: Speci men Type: BLOOD SPECIMENOrdering Facility: [facility] Address: [address] [place] [address] Performed By: #### 2 4323-8, 38411-1 ####[facility] DAVISFARMVILLETARIQ [id number] [place] [address] [place] Urea nitrogen [Mass/Vol] 15 mg/dL Normal 7-21 [facility] Comment on above: Order Comment: Speci men Type: BLOOD SPECIMENOrdering Facility: [facility] Address: [address] [place] [address] Performed By: #### 2 4323-8, 82853-8 ####[facility] ERINN [id number] [place] [address] [place] Magnesium SerPl-mCncon 04-11 Magnesium [Mass/Vol] 1.7 mg/dL Normal 1.7-2.3 [facility] Comment on above: Order Comment: Speci men Type: BLOOD SPECIMENOrdering Facility: [facility] Address: [address] [place] [address] Performed By: #### 2 4323-8, 48140-0 ####[facility] KARINCNENITA [id number] [address] [place] CNOVon 04-10-2024 CNOV Normal [facility] 1,25-dihydroxyvitamin D3 [Ma ss/Vol]on 04-07-2024 VIT D1,25 DIHYDROXY 38.6 pg/mL Normal 19.9-79.3 [facility] Comment on above: Order Comment: Speci men Type: BLOOD SPECIMENOrdering Facility: [facility] Address: [address] [place] [address] Performed By: #### 1 649-3, 1988-04 ####[facility] LABIA [id number] [place] [address] [place] 25(OH)D3 SerPl-mCncon 2024 25-hydroxyvitamin D3 [Mass/Vol] 42.2 ng/mL Normal 31.0-80.0 [facility] Comment on above: Order Comment: Speci men Type: BLOOD SPECIMENOrdering Facility: [facility] Address: [address] [place] [address] Result Comment: Clas sification of 25 [place] Vitamin D status:Deficiency/Insufficiency: < or = 30 ng/ml.Sufficiency/Optimal Levels: 31-80 ng/mLToxicity: > 100 ng/mL.Test performed by chemiluminescent immunoassay. Performed By: #### 1 649-3, 1988-04 ####[facility] LABIA [id number] [place] [id number] [place] CBC W Ordered Manual Differe ntial panel (Bld)on 04-07-2024 Basophils (Bld) [#/Vol] 0.03 10*3/uL Normal <0.11 [facility] Comment on above: Order Comment: Speci men Type: BLOOD SPECIMENOrdering Facility: [facility] Address: [address] [place] [address] Performed By: #### S TFREV ####[facility] LABCLIA [id number] [place] [address] [place]#### 30580-3 ####[facility] HOSPITALNCLIA [id number] [place] [address] [place] [facility] LABCLIA [id number] [place] [address] [place] Basophils/100 WBC (Bld) 0.3 % Normal [facility] Comment on above: Order Comment: Speci men Type: BLOOD SPECIMENOrdering Facility: [facility] Address: [address] [place] [address] Performed By: #### S TFREV ####[facility] LABCLIA [id number] [place] [address] [place]#### 95287-9 ####[facility] HOSPITALLIA [id number] [place] [address] [place] [facility] LABCLIA [id number] [place] [address] [place] Differential cell count method Nom (Bld) Auto Normal [facility] Comment on above: Order Comment: Speci men Type: BLOOD SPECIMENOrdering Facility: [facility] Address: [address] [place] [address] Performed By: #### S TFREV ####[facility] LABCLIA [id number] [place] [address] [place]#### 52059-4 ####[facility] HOSPITALNCLIA [id number] [place] [address] [place] AMERICAOH[facility] LABCLIA [id number] [place] [address] [place] Eosinophils (Bld) [#/Vol] 0.10 10*3/uL Normal <0.46 [facility] Comment on above: Order Comment: Speci men Type: BLOOD SPECIMENOrdering Facility: [facility] Address: [address] [place] [address] Performed By: #### S TFREV ####[facility] LABCLIA [id number] [place] [address] [place]#### 52188-6 ####[facility] MILLTOWNCLIA [id number] [place] [address] [place] [facility]OH[facility] LABCLIA [id number] [place] [address] [place] Eosinophils/100 WBC (Bld) 0.9 % Normal [facility] Comment on above: Order Comment: Speci men Type: BLOOD SPECIMENOrdering Facility: [facility] Address: [address] [place] [address] Performed By: #### S TFREV ####[facility] LABCLIA [id number] [place] [address] [place]#### 12720-0 ####[facility] ERA [id number] [place] [address] [place] [facility]OH[facility] LABCLIA [id number] [place] [address] [place] Erythrocyte distribution width (RBC) [Ratio] 15.2 % High 11.5-15.0 [facility] Comment on above: Order Comment: Speci men Type: BLOOD SPECIMENOrdering Facility: [facility] Address: [address] [place] [address] Performed By: #### S TFREV ####[facility] LABCLIA [id number] [place] [address] [place]#### 83707-8 ####[facility] HOSPITALNCLIA [id number] [place] [address] [place] [facility] LABCLIA [id number] [address] [place] Hematocrit (Bld) [Volume fraction] 28.7 % Low 36.0-46.0 [facility] Comment on above: Order Comment: Speci men Type: BLOOD SPECIMENOrdering Facility: [facility] Address: [address] [place] [address] Performed By: #### S TFREV ####[facility] LABIA [id number] [place] [address] [place]#### 67871-8 ####[facility] [id number] [address] STATES [facility] LABIA [id number] [place] [address] [place] Hemoglobin (Bld) [Mass/Vol] 10.0 g/dL Low 11.5-15.5 [facility] Comment on above: Order Comment: Speci men Type: BLOOD SPECIMENOrdering Facility: [facility] Address: [address] [place] [address] Performed By: #### S TFREV ####[facility] LABIA [id number] [place] [address] [place]#### 34439-2 ####[facility] ERA [id number] [address] STATES OF [facility] LABCLIA [id number] [place] [address] [place] Immature granulocytes (Bld) [#/Vol] 0.17 10*3/uL High <0.10 [facility] Comment on above: Order Comment: Speci men Type: BLOOD SPECIMENOrdering Facility: [facility] Address: [address] [place] [address] Performed By: #### S TFREV ####[facility] LABIA [id number] [place] [address] [place]#### 16088-6 ####[facility] MILLTOWNCLIA [id number] [place] [address] [place] [facility] LABCLIA [id number] [place] [address] [place] Immature granulocytes/100 WBC (Bld) 1.6 % Normal [facility] Comment on above: Order Comment: Speci men Type: BLOOD SPECIMENOrdering Facility: [facility] Address: [address] [place] [address] Performed By: #### S TFREV ####[facility] LABCLIA [id number] [place] [address] [place]#### 01425-9 ####[facility] HOSPITALLIA [id number] [place] [address] [place] [facility] LABCLIA [id number] [place] [address] [place] Lymphocytes (Bld) [#/Vol] 2.73 10*3/uL Normal 1.00-4.00 [facility] Comment on above: Order Comment: Speci men Type: BLOOD SPECIMENOrdering Facility: [facility] Address: [address] [place] [address] Performed By: #### S TFREV ####[facility] LABCLIA [id number] [place] [address] [place]#### 20281-8 ####[facility] MILLWNCLIA [id number] [address] STATES OF [facility] LABCLIA [id number] [place] [id number] [place] Lymphocytes/100 WBC (Bld) 25.1 % Normal [facility] Comment on above: Order Comment: Speci men Type: BLOOD SPECIMENOrdering Facility: [facility] Address: [address] [place] [address] Performed By: #### S TFREV ####[facility] LABCLIA [id number] [place] [address] [place]#### 43133-3 ####[facility]PITALLIA [id number] [place] [address] [place] [facility] LABCLIA [id number] [place] [address] [place] MCH (RBC) [Entitic mass] 34.8 pg High 26.0-34.0 [facility] Comment on above: Order Comment: Speci men Type: BLOOD SPECIMENOrdering Facility: [facility] Address: [address] [place] [address] Performed By: #### S TFREV ####[facility] LABCLIA [id number] [place] [address] [place]#### 47464-8 ####[facility]OSPITALLIA [id number] [place] [address] [place] [facility] LABCLIA [id number] [place] [address] [place] MCHC (RBC) [Mass/Vol] 34.8 g/dL Normal 30.5-36.0 [facility] Comment on above: Order Comment: Speci men Type: BLOOD SPECIMENOrdering Facility: [facility] Address: [address] [place] [address] Performed By: #### S TFREV ####[facility] LABCLIA [id number] [place] [address] [place]#### 82702-2 ####[facility]OSPITALWNCLIA [id number] [address] STATES [facility] LABCLIA [id number] [place] [address] [place] MCV (RBC) [Entitic vol] 100.0 fL Normal 80.0-100.0 [facility] Comment on above: Order Comment: Speci men Type: BLOOD SPECIMENOrdering Facility: [facility] Address: [address] [place] [address] Performed By: #### S TFREV ####[facility] LABCLIA [id number] [place] [address] [place]#### 67467-2 ####[facility] ERA [id number] [address] LABCLIA [id number] [place] [address] [place] Monocytes (Bld) [#/Vol] 0.57 10*3/uL Normal <0.87 [facility] Comment on above: Order Comment: Speci men Type: BLOOD SPECIMENOrdering Facility: [facility] Address: [address] [place] [address] Performed By: #### S TFREV ####[facility] LABCLIA [id number] [place] [address] [place]#### 87150-3 ####[facility]PITALLIA [id number] [address] STATES OF [facility] LABCLIA [id number] [place] [address] [place] Monocytes/100 WBC (Bld) 5.2 % Normal [facility] Comment on above: Order Comment: Speci men Type: BLOOD SPECIMENOrdering Facility: [facility] Address: [address] [place] [address] Performed By: #### S TFREV ####[facility] LABCLIA [id number] [address] [place] [address] [place]#### 53293-1 ####[facility] MILLTOWNCLIA [id number] [place] [address] [place] [facility] LABCLIA [id number] [address] [place] [address] [place] Neutrophils (Bld) [#/Vol] 7.28 10*3/uL Normal 1.45-7.50 [facility] Comment on above: Order Comment: Speci men Type: BLOOD SPECIMENOrdering Facility: [facility] Address: [address] [place] [address] Performed By: #### S TFREV ####[facility] LABCLIA [id number] [place] [address] [place]#### 74445-0 ####[facility]ITAL[facility]CLIA [id number] [place] [address] [place] [facility] LABCLIA [id number] [place] [address] [place] Neutrophils/100 WBC (Bld) 66.9 % Normal [facility] Comment on above: Order Comment: Speci men Type: BLOOD SPECIMENOrdering Facility: [facility] Address: [address] [place] [address] Performed By: #### S TFREV ####[facility] LABCLIA [id number] [address], [facility]95 [place]#### 80293-6 ####[facility] MILLWNCLIA [id number] [place] [address] [place] [facility] LABCLIA [id number] [address] [place] [address] [place] [facility] Nucleated RBC (Bld) [#/Vol] 10*3/uL Normal <0.01 [facility] Comment on above: Order Comment: Speci men Type: BLOOD SPECIMENOrdering Facility: [facility] Address: [address] [place] [address] Performed By: #### S TFREV ####[facility] LABCLIA [id number] [place] [address] [place]#### 98512-0 ####[facility] ERA [id number] [address] STATES [facility] LABCLIA [id number] [place] [address] [place] Nucleated RBC/100 WBC (Bld) [Ratio] 0.0 /100 WBC Normal [facility] Comment on above: Order Comment: Speci men Type: BLOOD SPECIMENOrdering Facility: [facility] Address: [address] [place] [address] Performed By: #### S TFREV ####[facility] LABCLIA [id number] [place] [address] [place]#### 40137-0 ####[facility] ERA [id number] [address] STATES [facility] LABCLIA [id number] [place] [address] [place] Platelet mean volume (Bld) [Entitic vol] 10.0 fL Normal 9.0-12.7 [facility] Comment on above: Order Comment: Speci men Type: BLOOD SPECIMENOrdering Facility: [facility] Address: [address] [place] [address] Performed By: #### S TFREV ####[facility] LABCLIA [id number] [place] [address] [place]#### 95444-0 ####[facility] MILLTOWNCLIA [id number] [address] LABCLIA [id number] [place] [id number] [place] Platelets (Bld) [#/Vol] 145 10*3/uL Low 150-400 [facility] Comment on above: Order Comment: Speci men Type: BLOOD SPECIMENOrdering Facility: [facility] Address: [address] [place] [address] Performed By: #### S TFREV ####[facility] LABCLIA [id number] [place] [address] [place]#### 79207-0 ####[facility] [id number] [address] LABCLIA [id number] [place] [address] [place] RBC (Bld) [#/Vol] 2.87 10*6/uL Low 3.90-5.20 [facility] Comment on above: Order Comment: Speci men Type: BLOOD SPECIMENOrdering Facility: [facility] Address: [address] [place] [address] Performed By: #### S TFREV ####[facility] LABCLIA [id number] [place] [address] [place]#### 64544-5 ####[facility]ITALWNCLIA [id number] [address] STATES [facility] LABCLIA [id number] [address] [address] [place] WBC (Bld) [#/Vol] 10.88 10*3/uL Normal 3.70-11.00 [facility] Comment on above: Order Comment: Speci men Type: BLOOD SPECIMENOrdering Facility: [facility] Address: [address] [place] [address] Performed By: #### S TFREV ####[facility] LABCLIA [id number] [place] [address] [place]#### 26882-3 ####[facility] [id number] [place] [address] [place] [facility] LABCLIA [id number] [place] [address] [place] Calcium.ionized [Moles/Vol]o n 04-07-2024 Calcium.ionized (Bld) [Mass/Vol] 1.32 mmol/L High 1.08-1.30 [facility] Comment on above: Order Comment: Speci men Type: BLOOD SPECIMENOrdering Facility: [facility] Address: [address] [place] [address] Performed By: #### 1 995-0 ####[facility] [id number] [place] [address] [place] Calcium.ionized adjusted to pH 7.4 (Bld) [Moles/Vol] 1.31 mmol/L High 1.08-1.30 [facility] Comment on above: Order Comment: Speci men Type: BLOOD SPECIMENOrdering Facility: [facility] Address: [address] [place] [address] Performed By: #### 1 995-0 ####[facility] [id number] [place] [address] [place] PATHOLOGIST INTERPRETATION C BC/DIFFon 04-07-2024 [employer] Analyst review Tae (Unsp spec) [Interp] No review performed. Normal [facility] Comment on above: Order Comment: Speci men Type: BLOOD SPECIMENOrdering Facility: [facility] Address: [address] [place] [address] Performed By: #### S TFREV ####[facility] LABCLIA [id number] [place] [address] [place]#### 19737-7 ####[facility] SYSTEMNCLIA [id number] [place] [address] [place] [facility] LABCLIA [id number] [place] [address] [place] STAFF REVIEW, CBCDIF Normal [facility] Comment on above: Order Comment: Speci men Type: BLOOD SPECIMENOrdering Facility: [facility] Address: [address] [place] [address] Performed By: #### S TFREV ####[facility] LABCLIA [id number] [place] [address] [place]#### 85622-9 ####[facility]LEY[facility] NORMANLIA [id number] [address] STATES [facility] LABCLIA [id number] [address] [place] PTH RELATED PEPTIDEon 2024 PTH RELATED PEPTIDE 2.3 pmol/L Normal 0.0-3.4 [facility] Comment on above: Order Comment: Speci men Type: BLOOD SPECIMENOrdering Facility: [facility] Address: [address] [place] [address] Result Comment: INTE RPRETIVE INFORMATION: Parathyroid Hormone-Related PeptideThis test was developed and its performance characteristicsdetermined by [employer]. It has not been cleared orapproved by the [place] Food and Drug Administration. This test wasperformed in a CLIA certified laboratory and is intended forclinical purposes.Performed By: [facility] [employer] [facility] [place] [id number] Director: Coliln Barnhart MD, PhDCLIA Number: [id number] Performed By: #### P THPEP ####[facility] LABORATORIESCLIA [id number] [place] [address] PTH-Intact SerPl-ncon 03-0 Parathyrin.intact [Mass/Vol] 85 pg/mL High 15-65 [facility] Comment on above: Order Comment: Speci men Type: BLOOD SPECIMENOrdering Facility: [facility] Address: [address] [place] [address] Result Comment: Test methodology for this assay has moved from Siemens Centaur XP to Nick dakota 8000 effective November 08, 2021. Please note there may be a change in the reporting units and/or reference range. Performed By: #### 2 731-8 ####[facility] LABORATORYCLIA [id number] [place] [address] [place] Renal function 2000 panelon 04-07-2024 Albumin [Mass/Vol] 4.3 g/dL Normal 3.9-4.9 [facility] Comment on above: Order Comment: Speci men Type: BLOOD SPECIMENOrdering Facility: [facility] Address: [address] [place] [address] Performed By: #### 2 4362-6 ####[facility] [id number] [place] [address] [place] Anion gap [Moles/Vol] 13 mmol/L Normal 8-15 [facility] Comment on above: Order Comment: Speci men Type: BLOOD SPECIMENOrdering Facility: [facility] Address: [address] [place] [address] Performed By: #### 2 4362-6 ####[facility] ERA [id number] [place] [address] [place] Calcium [Mass/Vol] 10.4 mg/dL High 8.5-10.2 [facility] Comment on above: Order Comment: Speci men Type: BLOOD SPECIMENOrdering Facility: [facility] Address: [address] [place] [address] Performed By: #### 2 4362-6 ####[facility] MILLWNCLIA [id number] [place] [address] [place] Chloride [Moles/Vol] 95 mmol/L Low 98-107 [facility] Comment on above: Order Comment: Speci men Type: BLOOD SPECIMENOrdering Facility: [facility] Address: [address] [place] [address] Performed By: #### 2 4362-6 ####[facility]IT[facility]IA [id number] [place] [address] [place] CO2 [Moles/Vol] 27 mmol/L Normal 22-30 [facility] Comment on above: Order Comment: Speci men Type: BLOOD SPECIMENOrdering Facility: [facility] Address: [address] [place] [address] Performed By: #### 2 4362-6 ####[facility] ERA [id number] [place] [address] [place] Creatinine [Mass/Vol] 1.43 mg/dL High 0.58-0.96 [facility] Comment on above: Order Comment: Speci men Type: BLOOD SPECIMENOrdering Facility: [facility] Address: [address] [place] [address] Performed By: #### 2 4362-6 ####[facility]IA [id number] [address] OF [facility] Creatinine and Glomerular filtration rate.predicted panel (S/P/Bld) 42 mL/min/1.73m??? Low >=60 [facility] Comment on above: Order Comment: Speci men Type: BLOOD SPECIMENOrdering Facility: [facility] Address: [address] [place] [address] Result Comment: Ann mated Glomerular Filtration Rate (eGFR) is calculated using the 2020 CKD-EPI creatinine equation. This equation utilizes serum creatinine, sex, and age as parameters. The creatinine assay has traceable calibration to isotope dilution-mass spectrometry. Refer to KDIGO guidelines for clinical interpretation. In patients with unstable renal function, e.g. those with acute kidney injury, the eGFR may not accurately reflect actual GFR. Performed By: #### 2 4362-6 ####[facility]ENTERTOWNCLIA [id number] [place] [address] [place] Glucose [Mass/Vol] 85 mg/dL Normal 74-99 [facility] Comment on above: Order Comment: Medina sales Type: BLOOD SPECIMENOrdering Facility: [facility] Address: [address] [place] [address] Result Comment: The [place] Diabetes Association (ADA) provides guidance for cutoff values for fasting glucose and random glucose. The ADA defines fasting as no caloric intake for at least 8 hours. Fasting plasma glucose results between 100 to 125 mg/dL indicate increased risk for diabetes (prediabetes).Fasting plasma glucose results greater than or equal to 126 mg/dL meet the criteria for diagnosis of diabetes. In the absence of unequivocal hyperglycemia, results should be confirmed by repeat testing. In a patient with classic symptoms of hyperglycemia or hyperglycemic crisis, random plasma glucose results greater than or equal to 200 mg/dL meet the criteria for diagnosis of diabetes.Reference: Standards of Medical Care in Diabetes 2016, [place] Diabetes Association. Diabetes Care. 2016.39(Suppl 1). Performed By: #### 2 4362-6 ####[facility]ITALWNCLIA [id number] [place] [address] [place] Phosphate [Mass/Vol] 2.6 mg/dL Low 2.7-4.8 [facility] Comment on above: Order Comment: Medina sales Type: BLOOD SPECIMENOrdering Facility: [facility] Address: [address] [place] [address] Performed By: #### 2 4362-6 ####[facility]ITALWNCLIA [id number] [place] [address] [place] Potassium [Moles/Vol] 3.6 mmol/L Low 3.7-5.1 [facility] Comment on above: Order Comment: Speci men Type: BLOOD SPECIMENOrdering Facility: [facility] Address: [address] [place] [address] Performed By: #### 2 4362-6 ####[facility] [id number] [place] [address] [place] Sodium [Moles/Vol] 135 mmol/L Low 136-144 [facility] Comment on above: Order Comment: Speci men Type: BLOOD SPECIMENOrdering Facility: [facility] Address: [address] [place] [address] Performed By: #### 2 4362-6 ####[facility] [id number] [place] [address] [place] Urea nitrogen [Mass/Vol] 17 mg/dL Normal 7-21 [facility] Comment on above: Order Comment: Speci men Type: BLOOD SPECIMENOrdering Facility: [facility] Address: [address] [place] [address] Performed By: #### 2 4362-6 ####[facility] [id number] [place] [address] [place] CBC W Auto Differential pane l (Bld)on 04-04-2024 Basophils (Bld) [#/Vol] 10*3/uL Normal <0.11 [facility] Comment on above: Order Comment: Speci men Type: BLOOD SPECIMEN [facility] Address: [address] [place] [address] Performed By: #### 2 731-8, 2284-8, 4542-7, 2132-9, 3024-7 #### [facility] LAB CLIA [id number] [address] [place] [address] [place] Basophils/100 WBC (Bld) 0.1 % Normal [facility] Comment on above: Order Comment: Speci men Type: BLOOD SPECIMEN [facility] Address: [address] [place] [address] Performed By: #### 2 731-8, 2284-8, 4541-7, 2131-10, 3023-08 #### [facility] LAB CLIA [id number] [address] [place] [address] [place] Differential cell count method Nom (Bld) Auto Normal [facility] Comment on above: Order Comment: Speci men Type: BLOOD SPECIMEN [facility] Address: [address] [place] [address] Performed By: #### 2 731-8, 2284-8, 4541-7, 2131-10, 3023-08 #### [facility] CLIA [id number] [address] [place] [address] [place] Eosinophils (Bld) [#/Vol] 0.03 10*3/uL Normal <0.46 [facility] Comment on above: Order Comment: Speci men Type: BLOOD SPECIMEN [facility] Address: [address] [place] [address] Performed By: #### 2 731-8, 2284-8, 7, 2131-10, 3023-08 #### [facility] CLIA [id number] [address] [place] [address] [place] Eosinophils/100 WBC (Bld) 0.2 % Normal [facility] Comment on above: Order Comment: Speci men Type: BLOOD SPECIMEN [facility] Address: [address] [place] [address] Performed By: #### 2 731-8, 2284-8, 4541-7, 2131-10, 3023-08 #### [facility] CLIA [id number] [address] [place] [address] [place] Erythrocyte distribution width (RBC) [Ratio] 16.2 % High 11.5-15.0 [facility] Comment on above: Order Comment: Speci men Type: BLOOD SPECIMEN [facility] Address: [address] [place], [place] [address] Performed By: #### 2 731-8, 2284-8, 7, 2131-10, 3023-08 #### [facility] CLIA [id number] [address] [place] [address] [place] Hematocrit (Bld) [Volume fraction] 29.0 % Low 36.0-46.0 [facility] Comment on above: Order Comment: Speci men Type: BLOOD SPECIMEN [facility] Address: [address] [place] [address] Performed By: #### 2 731-8, 228-8, 7, 2131-10, 3023-08 #### [facility] CLIA [id number] [address] [place] [address] [place] Hemoglobin (Bld) [Mass/Vol] 10.0 g/dL Low 11.5-15.5 [facility] Comment on above: Order Comment: Speci men Type: BLOOD SPECIMEN [facility] Address: [address] [place] [address] Performed By: #### 2 731-8, 2284-8, 7, 2131-10, 3023-08 #### [facility] CLIA [id number] [address] [place] [address] [place] Immature granulocytes (Bld) [#/Vol] 0.13 10*3/uL High <0.10 [facility] Comment on above: Order Comment: Speci men Type: BLOOD SPECIMEN [facility] Address: [address] [place] [address] Performed By: #### 2 731-8, 2284-8, 4541-7, 2131-10, 3023-08 #### [facility] CLIA [id number] [address] [place] [address] [place] Immature granulocytes/100 WBC (Bld) 0.9 % Normal [facility] Comment on above: Order Comment: Speci men Type: BLOOD SPECIMEN [facility] Address: [address] [place] [address] Performed By: #### 2 731-8, 2284-8, 4542-7, 9, 3023-08 #### [facility] CLIA [id number] [address] [place] [address] [place] Lymphocytes (Bld) [#/Vol] 1.34 10*3/uL Normal 1.00-4.00 [facility] Comment on above: Order Comment: Speci men Type: BLOOD SPECIMEN [facility] Address: [address] [place] [address] Performed By: #### 2 731-8, 2284-8, 4542-7, 2131-10, 3023-08 #### [facility] CLIA [id number] [address] [place] [address] [place] Lymphocytes/100 WBC (Bld) 9.0 % Normal [facility] Comment on above: Order Comment: Speci men Type: BLOOD SPECIMEN [facility] Address: [address] [place] [address] Performed By: #### 2 731-8, 2284-8, 4542-7, 2131-10, 3023-08 #### [facility] CLIA [id number] [address] [place] [address] [place] MCH (RBC) [Entitic mass] 35.1 pg High 26.0-34.0 [facility] Comment on above: Order Comment: Speci men Type: BLOOD SPECIMEN [facility] Address: [address] [place] [address] Performed By: #### 2 731-8, 2284-8, 4542-7, 9, 3023-08 #### [facility] CLIA [id number] [address] [place] [address] [place] MCHC (RBC) [Mass/Vol] 34.5 g/dL Normal 30.5-36.0 [facility] Comment on above: Order Comment: Speci men Type: BLOOD SPECIMEN [facility] Address: [address] [place] [address] Performed By: #### 2 731-8, 2284-8, 454-7, 2131-10, 3023-08 #### [facility] CLIA [id number] [address] [place] [address] [place] MCV (RBC) [Entitic vol] 101.8 fL High 80.0-100.0 [facility] Comment on above: Order Comment: Speci men Type: BLOOD SPECIMEN [facility] Address: [address] [place] [address] Performed By: #### 2 731-8, 2284-8, 7, 2131-10, 3023-08 #### [facility] CLIA [id number] [address] [place] [address] [place] Monocytes (Bld) [#/Vol] 0.37 10*3/uL Normal <0.87 [facility] Comment on above: Order Comment: Speci men Type: BLOOD SPECIMEN [facility] Address: [address] [place] [address] Performed By: #### 2 731-8, 228-8, 7, 2131-10, 3023-08 #### [facility] CLIA [id number] [address] [place], [place] [address] [place] Monocytes/100 WBC (Bld) 2.5 % Normal [facility] Comment on above: Order Comment: Speci men Type: BLOOD SPECIMEN [facility] Address: [address] [place] [address] Performed By: #### 2 731-8, 2284-8, 4541-7, 2131-10, 3023-08 #### [facility] CLIA [id number] [address] [place], [place] [address] [place] Neutrophils (Bld) [#/Vol] 12.93 10*3/uL High 1.45-7.50 [facility] Comment on above: Order Comment: Speci men Type: BLOOD SPECIMEN [facility] Address: [address] [place] [address] Performed By: #### 2 731-8, 2284-8, 4542-7, 9, 3023-08 #### [facility] CLIA [id number] [address] [place] [address] [place] Neutrophils/100 WBC (Bld) 87.3 % Normal [facility] Comment on above: Order Comment: Speci men Type: BLOOD SPECIMEN [facility] Address: [address] [place] [address] Performed By: #### 2 731-8, 2284-8, 4541-7, 2131-10, 3023-08 #### [facility] CLIA [id number] [address] [place] [address] [place] Nucleated RBC (Bld) [#/Vol] 10*3/uL Normal <0.01 [facility] Comment on above: Order Comment: Speci men Type: BLOOD SPECIMEN [facility] Address: [address] [place] [address] Performed By: #### 2 731-8, 2284-8, 454-7, 2131-10, 3023-08 #### [facility] CLIA [id number] [address] [place] [address] [place] Nucleated RBC/100 WBC (Bld) [Ratio] 0.0 /100 WBC Normal [facility] Comment on above: Order Comment: Speci men Type: BLOOD SPECIMEN [facility] Address: [address] [place] [address] Performed By: #### 2 731-8, 2284-8, 4542-7, 2131-9, 3023-7 #### [facility] CLIA [id number] [address] [place] [address] [place] Platelet mean volume (Bld) [Entitic vol] 9.6 fL Normal 9.0-12.7 [facility] Comment on above: Order Comment: Speci men Type: BLOOD SPECIMEN [facility] Address: [address] [place] [address] Performed By: #### 2 731-8, 2284-8, 4542-7, 2131-9, 3023-08 #### [facility] CLIA [id number] [address] [place] [address] [place] Platelets (Bld) [#/Vol] 152 10*3/uL Normal 150-400 [facility] Comment on above: Order Comment: Speci men Type: BLOOD SPECIMEN [facility] Address: [address] [place] [address] Performed By: #### 2 731-8, 2284-8, 4542-7, 2131-9, 3023-08 #### [facility] CLIA [id number] [address] [place] [address] [place] RBC (Bld) [#/Vol] 2.85 10*6/uL Low 3.90-5.20 [facility] Comment on above: Order Comment: Speci men Type: BLOOD SPECIMEN [facility] Address: [address] [place] [address] Performed By: #### 2 731-8, 2284-8, 4542-7, 2131-9, 3023-08 #### [facility] CLIA [id number] [address] [place] [address] [place] WBC (Bld) [#/Vol] 14.82 10*3/uL High 3.70-11.00 [facility] Comment on above: Order Comment: Speci men Type: BLOOD SPECIMEN [facility] Facility[facility] Address: [address] [place] [address] Performed By: #### 2 731-8, 2284-8, 4541-7, 2131-10, 3023-08 #### [facility] CLIA [id number] [address] [place] [address] [place] Basophils (Bld) [#/Vol] 10*3/uL Normal <0.11 [facility] Comment on above: Order Comment: Speci men Type: BLOOD SPECIMEN [facility] Address: [address] [place] [address] Performed By: #### 2 731-8, 2284-8, 4541-7, 2131-10, 3023-08 #### [facility] CLIA [id number] [address] [place] [address] [place] Basophils/100 WBC (Bld) 0.2 % Normal [facility] Comment on above: Order Comment: Speci men Type: BLOOD SPECIMEN Ordering Facility: [facility] Address: [address] [place] [address] Performed By: #### 2 731-8, 2284-8, 4541-7, 2131-10, 3023-08 #### [facility] CLIA [id number] [address] [place] [address] [place] Differential cell count method Nom (Bld) Auto Normal [facility] Comment on above: Order Comment: Speci men Type: BLOOD SPECIMEN Ordering Facility: [facility] Address: [address] [place] [address] Performed By: #### 2 731-8, 2284-8, 4541-7, 2131-10, 3023-08 #### [facility] CLIA [id number] [address] [place] [address] [place] Eosinophils (Bld) [#/Vol] 10*3/uL Normal <0.46 [facility] Comment on above: Order Comment: Speci men Type: BLOOD SPECIMEN Ordering Facility: [facility] Address: [address] [place], [place] [address] Performed By: #### 2 731-8, 2284-8, 4541-7, 2131-10, 3023-08 #### [facility] CLIA [id number] [address] [place] [address] [place] Eosinophils/100 WBC (Bld) 0.1 % Normal [facility] Comment on above: Order Comment: Speci men Type: BLOOD SPECIMEN Ordering Facility: [facility] Address: [address] [place] [address] Performed By: #### 2 731-8, 2284-8, 4541-7, 2131-10, 3023-08 #### [facility] CLIA [id number] [address] [place] [address] [place] Erythrocyte distribution width (RBC) [Ratio] 16.2 % High 11.5-15.0 [facility] Comment on above: Order Comment: Speci men Type: BLOOD SPECIMEN Ordering Facility: [facility] Address: [address] [place] [address] Performed By: #### 2 731-8, 2284-8, 7, 2131-10, 3023-08 #### [facility] CLIA [id number] [address] [place] [address] [place] Hematocrit (Bld) [Volume fraction] 24.7 % Low 36.0-46.0 [facility] Comment on above: Order Comment: Speci men Type: BLOOD SPECIMEN Ordering Facility: [facility] Address: [address] [place], [place] [address] Performed By: #### 2 731-8, 2284-8, 7, 2131-10, 3023-08 #### [facility] CLIA [id number] [address] [place], [place] [address] [place] Hemoglobin (Bld) [Mass/Vol] 8.7 g/dL Low 11.5-15.5 [facility] Comment on above: Order Comment: Speci men Type: BLOOD SPECIMEN Ordering Facility: [facility] Address: [address] [place] [address] Performed By: #### 2 731-8, 2284-8, 4542-7, 9, 3023-08 #### [facility] CLIA [id number] [address] [place] [address] [place] Immature granulocytes (Bld) [#/Vol] 0.10 10*3/uL High <0.10 [facility] Comment on above: Order Comment: Speci men Type: BLOOD SPECIMEN Ordering Facility: [facility] Address: [address] [place] [address] Performed By: #### 2 731-8, 2284-8, 4542-7, 2131-10, 3023-08 #### [facility] CLIA [id number] [address] [place] [address] [place] Immature granulocytes/100 WBC (Bld) 0.8 % Normal [facility] Comment on above: Order Comment: Speci men Type: BLOOD SPECIMEN Ordering Facility: [facility] Address: [address] [place] [address] Performed By: #### 2 731-8, 2284-8, 4542-7, 2131-9, 3023-08 #### [facility] CLIA [id number] [address] [place] [address] [place] Lymphocytes (Bld) [#/Vol] 0.92 10*3/uL Low 1.00-4.00 [facility] Comment on above: Order Comment: Speci men Type: BLOOD SPECIMEN Ordering Facility: [facility] Address: [address] [place] [address] Performed By: #### 2 731-8, 2284-8, 4542-7, 9, 3023-08 #### [facility] CLIA [id number] [address] [place] [address] [place] [facility] [place] Lymphocytes/100 WBC (Bld) 7.7 % Normal [facility] Comment on above: Order Comment: Speci men Type: BLOOD SPECIMEN Ordering Facility: [facility] Address: [address] [place] [address] Performed By: #### 2 731-8, 2284-8, 4542-7, 9, 3023-08 #### [facility] CLIA [id number] [address] [place] [address] [place] MCH (RBC) [Entitic mass] 34.8 pg High 26.0-34.0 [facility] Comment on above: Order Comment: Speci men Type: BLOOD SPECIMEN Ordering Facility: [facility] Address: [address] [place] [address] Performed By: #### 2 731-8, 2284-8, 4542-7, 2131-10, 3023-08 #### [facility] CLIA [id number] [address] [place] [address] [place] MCHC (RBC) [Mass/Vol] 35.2 g/dL Normal 30.5-36.0 [facility] Comment on above: Order Comment: Speci men Type: BLOOD SPECIMEN Ordering Facility: [facility] Address: [address] [place] [address] Performed By: #### 2 731-8, 2284-8, 454-7, 2131-10, 3023-08 #### [facility] CLIA [id number] [address] [place] [address] [place] MCV (RBC) [Entitic vol] 98.8 fL Normal 80.0-100.0 [facility] Comment on above: Order Comment: Speci men Type: BLOOD SPECIMEN Ordering Facility: [facility] Address: [address] [place] [address] Performed By: #### 2 731-8, 2284-8, 4542-7, 2131-10, 3023-08 #### [facility] CLIA [id number] [address] [place] [address] [place] Monocytes (Bld) [#/Vol] 0.51 10*3/uL Normal <0.87 [facility] Comment on above: Order Comment: Speci men Type: BLOOD SPECIMEN Ordering Facility: [facility] Address: [address] [place] [address] Performed By: #### 2 731-8, 2284-8, 454-7, 2131-10, 3023-08 #### [facility] CLIA [id number] [address] [place] [address] [place] Monocytes/100 WBC (Bld) 4.3 % Normal [facility] Comment on above: Order Comment: Speci men Type: BLOOD SPECIMEN Ordering Facility: [facility] Address: [address] [place] [address] Performed By: #### 2 731-8, 2284-8, 4541-7, 2131-10, 3023-08 #### [facility] CLIA [id number] [address] [place] [address] [place] Neutrophils (Bld) [#/Vol] 10.43 10*3/uL High 1.45-7.50 [facility] Comment on above: Order Comment: Speci men Type: BLOOD SPECIMEN Ordering Facility: [facility] Address: [address] [place] [address] Performed By: #### 2 731-8, 2284-8, 4541-7, 2131-10, 3023-08 #### [facility] CLIA [id number] [address] [place], [place] [address] [place] Neutrophils/100 WBC (Bld) 86.9 % Normal [facility] Comment on above: Order Comment: Speci men Type: BLOOD SPECIMEN Ordering Facility: [facility] Address: [address] [place] [address] Performed By: #### 2 731-8, 2284-8, 4542-7, 9, 3023-08 #### [facility] CLIA [id number] [address] [place] [address] [place] Nucleated RBC (Bld) [#/Vol] 10*3/uL Normal <0.01 [facility] Comment on above: Order Comment: Speci men Type: BLOOD SPECIMEN Ordering Facility: [facility] Address: [address] [place] [address] Performed By: #### 2 731-8, 2284-8, 2-7, 2131-10, 3023-08 #### [facility] CLIA [id number] [address] [place], [place] [address] [place] Nucleated RBC/100 WBC (Bld) [Ratio] 0.0 /100 WBC Normal [facility] Comment on above: Order Comment: Speci men Type: BLOOD SPECIMEN Ordering Facility: [facility] Address: [address] [place] [address] Performed By: #### 2 731-8, 2284-8, 4541-7, 2131-10, 3023-08 #### [facility] CLIA [id number] [address] [place], [place] [address] [place] Platelet mean volume (Bld) [Entitic vol] 10.0 fL Normal 9.0-12.7 [facility] Comment on above: Order Comment: Speci men Type: BLOOD SPECIMEN Ordering Facility: [facility] Address: [address] [place] [address] Performed By: #### 2 731-8, 2284-8, 4541-7, 2131-10, 3023-08 #### [facility] CLIA [id number] [address] [place], [place] [address] [place] Platelets (Bld) [#/Vol] 135 10*3/uL Low 150-400 [facility] Comment on above: Order Comment: Speci men Type: BLOOD SPECIMEN Ordering Facility: [facility] Address: [address] [place] [address] Performed By: #### 2 731-8, 2284-8, 4542-7, 2132-9, 3024-7 #### [facility] CLIA [id number] [address] [place], [place] [address] [place] RBC (Bld) [#/Vol] 2.50 10*6/uL Low 3.90-5.20 [facility] Comment on above: Order Comment: Speci men Type: BLOOD SPECIMEN Ordering Facility: [facility] Address: [address] [place] [address] Performed By: #### 2 731-8, 2284-8, 4542-7, 2132-9, 3024-7 #### [facility] CLIA [id number] [address] [place], [place] [address] [place] WBC (Bld) [#/Vol] 11.99 10*3/uL High 3.70-11.00 [facility] Comment on above: Order Comment: Speci men Type: BLOOD SPECIMEN Ordering Facility: [facility] Address: [address] [place] [address] Performed By: #### 2 731-8, 2284-8, 4542-7, 2132-9, 302-7 #### [facility] CLIA [id number] [address] [place], [place] [address] [place] CNCOon 04-04-2024 CNCO Letter Text Normal [facility] CNPNon 04-04-2024 CNPN Normal [facility] CONSULT PROGon 04-04-2024 CONSULT PROG HNO ID: [id number] Author: TAMY HURLEY MD Service: Nephrology Author Type: Physician Type: Consult Progress Note Filed: 04/04/2024 12:19 Note Text: Patient seen and examined. Feels ok. Tolerated renal biopsy yesterday. Possible DC today. Blood pressure 119/53, pulse 83, temperature 36.8 ?C (98.2 ?F), temperature source Oral, resp. rate 16, height 162.6 cm (5' 4), weight 86.7 kg (191 lb 2.2 oz), SpO2 96%. Intake/Output Summary (Last 24 hours) at 04/04/2024 1217 Last data filed at 04/04/2024 0857 Gross per 24 hour Intake 3495 ml Output -- Net 3495 ml Gen: NAD, pleasant Resp: clear CVS: no rub Abd: soft Ext: no pitting edema UA bland K 4.5, Cr 1.5, Ca 10.2 Ion Ca 1.34, Mg 1.6 Vit D 43, PTH 57, PTHrp pending TSH 90 Impression: Sustained CRISTINO - Cr mid 1 range since initiation of chemotherapy in 12/2023 (cisplatin/permetrexed/pemb rolizumab). Stopped cisplatin last 2 cycles with no improvement in renal function. Unclear cause, rule out checkpoint inhibitor associated nephritis vs cisplatin tubular toxicity - s/p renal biopsy 04/03/24 Hypercalcemia that developed in Feb 2024. PTH is not suppressed. PTHrp pending. Treated with zometa 04/01/24 and started on cinacalcet Hypomagnesemia - likely due to cisplatin Severe hypothyroidism - started on levothyroxine this admission Plan: Cinacalcet since PTH not suppressed; can continue 30mg daily on discharge Probably would complete 3 days of IV steroids then restart prednisone 30mg daily till we have renal biopsy results back. If no evidence of immune mediated nephritis - would suggest quick taper to off as outpatient Follow up PTHrp Agree with levothyroxine Follow up results of renal biopsy; likely results not available till next week No oral calcium supplement No objection to DC planning I ordered labs in Epic for next week Normal [facility] Calcium.ionized [Moles/Vol]o n 04-04-2024 Calcium.ionized (Bld) [Mass/Vol] 1.34 mmol/L High 1.08-1.30 [facility] Comment on above: Order Comment: Speci men Type: BLOOD SPECIMEN Ordering Facility: [facility] Address: [address] [place] [address] Performed By: #### 2 731-8, 2284-8, 4542-7, 2132-9, 3024-7 #### [facility] CLIA [id number] [address] [place] [address] [place] [address] [place] Calcium.ionized adjusted to pH 7.4 (Bld) [Moles/Vol] 1.32 mmol/L High 1.08-1.30 [facility] Comment on above: Order Comment: Speci men Type: BLOOD SPECIMEN Ordering Facility: [facility] Address: [address] [place] [address] Performed By: #### 2 731-8, 2284-8, 4542-7, 2132-9, 3024-7 #### [facility] CLIA [id number] [address] [place] [address] [place] [facility] [place] Comprehensive metabolic 2000 panelon 04-04-2024 Albumin [Mass/Vol] 3.7 g/dL Low 3.9-4.9 [facility] Comment on above: Order Comment: Speci men Type: BLOOD SPECIMEN Ordering Facility: [facility] Address: [address] [place] [address] Performed By: #### 1 4196-0, 90429-8 #### [facility] CLIA [id number] [address] [place] ALP [Catalytic activity/Vol] 116 U/L Normal 34-123 [facility] Comment on above: Order Comment: Speci men Type: BLOOD SPECIMEN Ordering Facility: [facility] Address: [address] [place] [address] Performed By: #### 1 4196-0, 18823-5 #### [facility] CLIA [id number] [address] OF [facility] ALT [Catalytic activity/Vol] 112 U/L High 7-38 [facility] Comment on above: Order Comment: Speci men Type: BLOOD SPECIMEN Ordering Facility: [facility] Address: [address] [place] [address] Performed By: #### 1 4196-0, 44206-7 #### [facility] CLIA [id number] [address] Anion gap [Moles/Vol] 9 mmol/L Normal 8-15 [facility] Comment on above: Order Comment: Speci men Type: BLOOD SPECIMEN Ordering Facility: [facility] Address: [address] [place] [address] Performed By: #### 1 4196-0, 26487-4 #### [facility] CLIA [id number] [address] [place] [address] [place] AST [Catalytic activity/Vol] 107 U/L High 13-35 [facility] Comment on above: Order Comment: Speci men Type: BLOOD SPECIMEN Ordering Facility: [facility] Address: [address] [place] [address] Performed By: #### 1 4196-0, 64973-3 #### [facility] CLIA [id number] [address] [place] [address] [place] Bilirubin [Mass/Vol] 0.3 mg/dL Normal 0.2-1.3 [facility] Comment on above: Order Comment: Speci men Type: BLOOD SPECIMEN Ordering Facility: [facility] Address: [address] [place] [address] Performed By: #### 1 4196-0, 47901-7 #### [facility] CLIA [id number] [address] [place] [address] [place] Calcium [Mass/Vol] 10.2 mg/dL Normal 8.5-10.2 [facility] Comment on above: Order Comment: Speci men Type: BLOOD SPECIMEN Ordering Facility: [facility] Address: [address] [place] [address] Performed By: #### 1 4196-0, 35047-2 #### [facility] CLIA [id number] [address] [place] [address] [place] Chloride [Moles/Vol] 101 mmol/L Normal 98-107 [facility] Comment on above: Order Comment: Speci men Type: BLOOD SPECIMEN Ordering Facility: [facility] Address: [address] [place] [address] Performed By: #### 1 4196-0, 83825-8 #### [facility] CLIA [id number] [address] [place] [address] [place] CO2 [Moles/Vol] 27 mmol/L Normal 22-30 [facility] Comment on above: Order Comment: Speci men Type: BLOOD SPECIMEN Ordering Facility: [facility] Address: [address] [place] [address] Performed By: #### 1 4196-0, 80429-4 #### [facility] CLIA [id number] [address] Creatinine [Mass/Vol] 1.51 mg/dL High 0.58-0.96 [facility] Comment on above: Order Comment: [employer] [employer] Type: BLOOD SPECIMEN Ordering Facility: [facility] Address: [address] [place] [address] Performed By: #### 1 4196-0, 44165-7 #### [facility] CLIA [id number] [address] Creatinine and Glomerular filtration rate.predicted panel (S/P/Bld) 39 mL/min/1.73m??? 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 This equation utilizes serum creatinine, sex, and age as parameters. The creatinine assay has traceable calibration to isotope dilution-mass spectrometry. Refer to KDIGO guidelines for clinical interpretation. In patients with unstable renal function, e.g. those with acute kidney injury, the eGFR may not accurately reflect actual GFR. Performed By: #### 1 4196-0, 98562-2 #### [facility] CLIA [id number] [address] STATES OF [facility] Glucose [Mass/Vol] 85 mg/dL Normal 74-99 [facility] Comment on above: Order Comment: [place] [employer] Type: BLOOD SPECIMEN Ordering Facility: [facility] Address: [address] [place] [address] Result Comment: The [place] Diabetes Association (ADA) provides guidance for cutoff values for fasting glucose and random glucose. The ADA defines fasting as no caloric intake for at least 8 hours. Fasting plasma glucose results between 100 to 125 mg/dL indicate increased risk for diabetes (prediabetes). Fasting plasma glucose results greater than or equal to 126 mg/dL meet the criteria for diagnosis of diabetes. In the absence of unequivocal hyperglycemia, results should be confirmed by repeat testing. In a patient with classic symptoms of hyperglycemia or hyperglycemic crisis, random plasma glucose results greater than or equal to 200 mg/dL meet the criteria for diagnosis of diabetes. Reference: Standards of Medical Care in Diabetes 2016, [place] [employer]. Diabetes Care. 2016.39(Suppl 1). Performed By: #### 1 4196-0, 74337-7 #### [facility] CLIA [id number] [address] STATES OF [facility] Potassium [Moles/Vol] 4.5 mmol/L Normal 3.7-5.1 [facility] Comment on above: Order Comment: [place] [employer] Type: BLOOD SPECIMEN Ordering Facility: [facility] Address: [address] [place] [address] Performed By: #### 1 4196-0, 81354-6 #### [facility] CLIA [id number] [address] [place] Protein [Mass/Vol] 6.9 g/dL Normal 6.3-8.0 [facility] Comment on above: Order Comment: [place] [employer] Type: BLOOD SPECIMEN Ordering Facility: [facility] Address: [address] [place] [address] Performed By: #### 1 4196-0, 75391-1 #### [facility] CLIA [id number] [address] STATES [place] [facility] Sodium [Moles/Vol] 137 mmol/L Normal 136-144 [facility] Comment on above: Order Comment: [place] [employer] Type: BLOOD SPECIMEN Ordering Facility: [facility] Address: [address] [place] [address] Performed By: #### 1 4196-0, 98834-0 #### [facility] CLIA [id number] [address] [place] Urea nitrogen [Mass/Vol] 20 mg/dL Normal 7-21 [facility] Comment on above: Order Comment: [place] [employer] Type: BLOOD SPECIMEN Ordering Facility: [facility] Address: [address] [place] [address] Performed By: #### 1 4196-0, 87946-8 #### [facility] CLIA [id number] [address] [place] [address] [place] Magnesium SerPl-mCncon 04-04 Magnesium [Mass/Vol] 1.6 mg/dL Low 1.7-2.3 [facility] Comment on above: Order Comment: Speci men Type: BLOOD SPECIMEN Ordering Facility: [facility] Address: [address] [place] [address] Performed By: #### 1 4196-0, 67221-6 #### [facility] CLIA [id number] [address] [place] [address] [place] Phosphate SerPl-mCncon 04-04 Phosphate [Mass/Vol] 4.0 mg/dL Normal 2.7-4.8 [facility] Comment on above: Order Comment: Speci men Type: BLOOD SPECIMEN Ordering Facility: [facility] Address: [address] [place] [address] Performed By: #### 1 4196-0, 38484-0 #### [facility] CLIA [id number] [address] [place] [address] [place] CBC W Auto Differential pane l (Bld)on 04-03-2024 Basophils (Bld) [#/Vol] 10*3/uL Normal <0.11 [facility] Comment on above: Order Comment: Speci men Type: BLOOD SPECIMEN Ordering Facility: [facility] Address: [address] [place] [address] Performed By: #### 2 731-8, 2284-8, 4541-7, 2131-10, 3023-08 #### [facility] CLIA [id number] [address] [place] [address] [place] Basophils/100 WBC (Bld) 0.1 % Normal [facility] Comment on above: Order Comment: Speci men Type: BLOOD SPECIMEN Ordering Facility: [facility] Address: [address] [place] [address] Performed By: #### 2 731-8, 2284-8, 4541-7, 9, 3023-08 #### [facility] CLIA [id number] [address] [place] [address] [place] Differential cell count method Nom (Bld) Auto Normal [facility] Comment on above: Order Comment: Speci men Type: BLOOD SPECIMEN Ordering Facility: [facility] Address: [address] [place] [address] Performed By: #### 2 731-8, 2284-8, 4541-7, 2131-10, 3023-08 #### [facility] CLIA [id number] [address] [place], [place] [address] [place] Eosinophils (Bld) [#/Vol] 0.03 10*3/uL Normal <0.46 [facility] Comment on above: Order Comment: Speci men Type: BLOOD SPECIMEN Ordering Facility: [facility] Address: [address] [place] [address] Performed By: #### 2 731-8, 2284-8, 4541-7, 2131-10, 3023-08 #### [facility] CLIA [id number] [address] [place] [address] [place] Eosinophils/100 WBC (Bld) 0.2 % Normal [facility] Comment on above: Order Comment: Speci men Type: BLOOD SPECIMEN Ordering Facility: [facility] Address: [address] [place] [address] Performed By: #### 2 731-8, 2284-8, 4541-7, 2131-10, 3023-08 #### [facility] CLIA [id number] [address] [place] [address] [place] Erythrocyte distribution width (RBC) [Ratio] 16.2 % High 11.5-15.0 [facility] Comment on above: Order Comment: Speci men Type: BLOOD SPECIMEN Ordering Facility: [facility] Address: [address] [place] [address] Performed By: #### 2 731-8, 2284-8, 7, 2131-10, 3023-08 #### [facility] CLIA [id number] [address] [place] [address] [place] Hematocrit (Bld) [Volume fraction] 26.6 % Low 36.0-46.0 [facility] Comment on above: Order Comment: Speci men Type: BLOOD SPECIMEN Ordering Facility: [facility] Address: [address] [place] [address] Performed By: #### 2 731-8, 2284-8, 454-7, 2131-10, 3023-08 #### [facility] CLIA [id number] [address] [place] [address] [place] Hemoglobin (Bld) [Mass/Vol] 9.3 g/dL Low 11.5-15.5 [facility] Comment on above: Order Comment: Speci men Type: BLOOD SPECIMEN Ordering Facility: [facility] Address: [address] [place] [address] Performed By: #### 2 731-8, 2284-8, 454-7, 9, 3023-08 #### [facility] CLIA [id number] [address] [place] [address] [place] Immature granulocytes (Bld) [#/Vol] 0.14 10*3/uL High <0.10 [facility] Comment on above: Order Comment: Speci men Type: BLOOD SPECIMEN Ordering Facility: [facility] Address: [address] [place] [address] Performed By: #### 2 731-8, 2284-8, 4542-7, 2131-10, 3023-08 #### [facility] CLIA [id number] [address] [place] [address] [place] Immature granulocytes/100 WBC (Bld) 1.0 % Normal [facility] Comment on above: Order Comment: Speci men Type: BLOOD SPECIMEN Ordering Facility: [facility] Address: [address] [place] [address] Performed By: #### 2 731-8, 2284-8, 4542-7, 9, 3023-08 #### [facility] CLIA [id number] [address] [place] [address] [place] Lymphocytes (Bld) [#/Vol] 2.19 10*3/uL Normal 1.00-4.00 [facility] Comment on above: Order Comment: Speci men Type: BLOOD SPECIMEN Ordering Facility: [facility] Address: [address] [place] [address] Performed By: #### 2 731-8, 2284-8, 454-7, 9, 3023-08 #### [facility] CLIA [id number] [address] [place] [address] [place] Lymphocytes/100 WBC (Bld) 16.2 % Normal [facility] Comment on above: Order Comment: Speci men Type: BLOOD SPECIMEN Ordering Facility: [facility] Address: [address] [place] [address] Performed By: #### 2 731-8, 2284-8, 454-7, 9, 3023-08 #### [facility] CLIA [id number] [address] [place] [address] [place] MCH (RBC) [Entitic mass] 35.2 pg High 26.0-34.0 [facility] Comment on above: Order Comment: Speci men Type: BLOOD SPECIMEN Ordering Facility: [facility] Address: [address] [place], [place] [address] Performed By: #### 2 731-8, 2284-8, 454-7, 9, 3023-08 #### [facility] CLIA [id number] [address] [place], [place] [address] [place] MCHC (RBC) [Mass/Vol] 35.0 g/dL Normal 30.5-36.0 [facility] Comment on above: Order Comment: Speci men Type: BLOOD SPECIMEN Ordering Facility: [facility] Address: [address] [place], [place] [address] Performed By: #### 2 731-8, 2284-8, 7, 2131-10, 3023-08 #### [facility] CLIA [id number] [address] [place] [address] [place] MCV (RBC) [Entitic vol] 100.8 fL High 80.0-100.0 [facility] Comment on above: Order Comment: Speci men Type: BLOOD SPECIMEN Ordering Facility: [facility] Address: [address] [place] [address] Performed By: #### 2 731-8, 2283-8, 7, 2131-10, 3023-08 #### [facility] CLIA [id number] [address] [place] [address] [place] Monocytes (Bld) [#/Vol] 0.63 10*3/uL Normal <0.87 [facility] Comment on above: Order Comment: Speci men Type: BLOOD SPECIMEN Ordering Facility: [facility] Address: [address] [place] [address] Performed By: #### 2 731-8, 2283-8, 4541-08, 2131-10, 3023-08 #### [facility] CLIA [id number] [address] [place] [address] [place] Monocytes/100 WBC (Bld) 4.7 % Normal [facility] Comment on above: Order Comment: Speci men Type: BLOOD SPECIMEN Ordering Facility: [facility] Address: [address] [place] [address] Performed By: #### 2 731-8, 228-8, 7, 2131-10, 3023-08 #### [facility] CLIA [id number] [address] [place], [place] [address] [place] Neutrophils (Bld) [#/Vol] 10.48 10*3/uL High 1.45-7.50 [facility] Comment on above: Order Comment: Speci men Type: BLOOD SPECIMEN Ordering Facility: [facility] Address: [address] [place] [address] Performed By: #### 2 731-8, 2284-8, 4542-7, 9, 3023-08 #### [facility] CLIA [id number] [address] [place] [address] [place] Neutrophils/100 WBC (Bld) 77.8 % Normal [facility] Comment on above: Order Comment: Speci men Type: BLOOD SPECIMEN Ordering Facility: [facility] Address: [address] [place] [address] Performed By: #### 2 731-8, 2284-8, 4542-7, 2131-10, 3023-08 #### [facility] CLIA [id number] [address] [place] [address] [place] Nucleated RBC (Bld) [#/Vol] 10*3/uL Normal <0.01 [facility] Comment on above: Order Comment: Speci men Type: BLOOD SPECIMEN Ordering Facility: [facility] Address: [address] [place] [address] Performed By: #### 2 731-8, 2284-8, 454-7, 2131-10, 3023-08 #### [facility] CLIA [id number] [address] [place] [address] [place] Nucleated RBC/100 WBC (Bld) [Ratio] 0.0 /100 WBC Normal [facility] Comment on above: Order Comment: Speci men Type: BLOOD SPECIMEN Ordering Facility: [facility] Address: [address] [place] [address] Performed By: #### 2 731-8, 2284-8, 4542-7, 9, 3023-08 #### [facility] CLIA [id number] [address] [place] [address] [place] Platelet mean volume (Bld) [Entitic vol] 9.8 fL Normal 9.0-12.7 [facility] Comment on above: Order Comment: Speci men Type: BLOOD SPECIMEN Ordering Facility: [facility] Address: [address] [place] [address] Performed By: #### 2 731-8, 2284-8, 4542-7, 2131-9, 3023-7 #### [facility] CLIA [id number] [address] [place] [address] [place] Platelets (Bld) [#/Vol] 162 10*3/uL Normal 150-400 [facility] Comment on above: Order Comment: Speci men Type: BLOOD SPECIMEN Ordering Facility: [facility] Address: [address] [place] [address] Performed By: #### 2 731-8, 2284-8, 4542-7, 2131-9, 3023-08 #### [facility] CLIA [id number] [address] [place] [address] [place] RBC (Bld) [#/Vol] 2.64 10*6/uL Low 3.90-5.20 [facility] Comment on above: Order Comment: Speci men Type: BLOOD SPECIMEN Ordering Facility: [facility] Address: [address] [place] [address] Performed By: #### 2 731-8, 2284-8, 4542-7, 9, 3023-08 #### [facility] CLIA [id number] [address] [place] [address] [place] WBC (Bld) [#/Vol] 13.49 10*3/uL High 3.70-11.00 [facility] Comment on above: Order Comment: Speci men Type: BLOOD SPECIMEN Ordering Facility: [facility] Address: [address] [place] [address] Performed By: #### 2 731-8, 2284-8, 4542-7, 2131-9, 3023-7 #### [facility] CLIA [id number] [address] [place] [address] OF [facility] CNDSon 04-03-2024 CNDS HNO ID: [id number] Author: NIR HSU MD Service: Hospital Medicine Author Type: Physician Type: Discharge Summary Filed: 04/14/2024 19:17 Note Text: DISCHARGE SUMMARY PATIENT NAME: Vickey Schwartz ADMISSION DATE: 04/01/2024 DISCHARGE DATE: 04/04/2024 ATTENDING PHYSICIAN: Nir Hsu MD Code Status: Full Code PCP: Camilo Jonas MD Highest Readmission Risk Score: 23 The 30 day readmissions risk score is derived from an internally validated risk model which evaluates patient level characteristics, utilization history, medication orders and lab results up until the day of discharge. Patients with a score of 39 or above are considered highest risk for readmission. Specific patient level drivers will be listed at the bottom of the summary. TRANSITIONS OF CARE CRITICAL ISSUES: MARTIN MEDICATION CHANGES: Hold plaquenil, start sensipar Prednisone taper Start levothyroxine FOLLOW UP APPOINTMENTS: PCP, nephrology, oncology Dr Castle LABS AND PROCEDURES PENDING AT DISCHARGE: Test Results Not Yet Available from This Hospitalization: Please Review at Your Follow Up Appointment Order Current Status PTH RELATED PEPTIDE In process SURGICAL PATHOLOGY In process VITAMIN D1 25-DIHYDR In process Tests to be Completed After Your Hospitalization Pathologist Interpretation with CBC/DIFF Complete by: Apr 07, 2024 Renal Function Panel Complete by: Apr 07, 2024 REASON FOR HOSPITALIZATION/PRINCIPAL DIAGNOSES: CRISTINO HOSPITAL PROBLEMS: Principal Problem: Acute kidney injury (HCC) (POA: Yes) Active Problems: Primary biliary cirrhosis (HCC) (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 * HOSPITAL COURSE: Patient is a 63-year-old female admitted to the hospital with CRISTINO thought to be due to immunotherapy and currently on steroids as an outpatient. She suffers from lung cancer and is awaiting surgery as well for lower lobe resection. She was admitted to the hospital for further evaluation of her CRISTINO. She underwent renal biopsy to determine the cause of her CRISTINO so that we can try to get her off steroids as soon as possible so she can undergo surgery. Renal biopsy results are pending. Was also seen to have elevated TSH in the 90 range and she was started on levothyroxine. She will need outpatient lab work especially while she is on steroids to determine response and considering further adjustment of her levothyroxine. She was started on Sensipar considering that her PTH was not suppressed even with elevated calcium. She was given Zometa with normalizing of her serum calcium but she still has some elevated manage calcium. She is being planned for discharge with outpatient follow-up with PCP, nephrology and oncology team. OPERATIONS/PROCEDURE DURING THIS HOSPITALIZATION: Procedure(s) (LRB): BIOPSY KIDNEY PERCUTANEOUS (Pending) CONSULTS DURING HOSPITALIZATION: Treatment Team: Attending Provider: Nir Hsu MD Consulting: Tamy Hurley MD Consulting: Alf Castle DO Primary Service: , [facility] PATIENT CONDITION AT DISCHARGE: Stable DISCHARGE DISPOSITION: Home with Self Care Alert awake oriented x 3, average built and body habitus Cardiac: S1-S2 heard regular rate and rhythm Respiratory system: Clear to auscultation bilaterally Abdomen: Biopsy site appears okay with no obvious ecchymosis or tenderness, soft, bowel sounds are heard Lower extremity: No evidence of pitting pedal edema DIET: Resume pre-hospital diet ACTIVITY AND EXERCISE: Resume pre-hospital activity FOLLOW UP APPOINTMENTS: Future Appointments Date Time Provider Department Center 04/11/2024 9:00 AM LAB [facility] [place] 04/11/2024 9:20 AM Alf Castle DO [facility] [place] 05/02/2024 11:00 AM LAB [facility] [place] 05/02/2024 11:30 AM Alf Castle DO [facility] [place] 05/05/2024 8:00 AM TREATMENT RM 2 GIAN [facility] [place] 05/22/2024 11:00 AM LAB [facility] [place] 05/22/2024 11:30 AM Alf Castle DO [facility] [place] 05/26/2024 8:00 AM TREATMENT RM 2 GIAN [facility] [place] 06/18/2024 10:30 AM Allen Valdes MD [facility] 08/12/2024 10:00 AM Palomo Joseph MD [facility] 09/10/2024 9:30 AM Boaz Pineda, DO [facility] 10/20/2024 7:40 AM Eloise Montesinos MD [facility] ALLERGIES Allergen Reactions Albuterol Other: See Comments kyra Morrison Adhesive Tape (Sammi* Itching Itching and redness DISCHARGE MEDICATION: Medication List START taking these medications cinacalcet 30 mg tablet Commonly kno (more content not included)... [facility] CONSULT PROGon 04-03-2024 CONSULT PROG HNO ID: [id number] Author: MARIS CHUN APRN.DIRECTOR OF PURCHASING Service: Hematology/Oncology Author Type: Nurse Practitioner Type: Consult Progress Note Filed: 04/03/2024 18:27 Note Text: HEMATOLOGY/ONCOLOGY SERVICE CONSULT PROGRESS NOTE SERVICE DATE: 04/03/2024 Subjective INTERVAL HPI: Patient seen in follow up. She is s/p renal bx earlier today, tolerated well. She plans to be discharged tomorrow. She denies concerns. Current Facility-Administered Medications Medication Dose Route Frequency NaCl 0.9% iv flush bag 20 mL INTRAVENOUS PRN acetaminophen 650 mg tab(s) (TYLENOL) 650 mg ORAL q 6 H PRN melatonin 6 mg tab(s) 6 mg ORAL AT BEDTIME PRN ursodiol 300 mg cap(s) (ACTIGALL) 300 mg ORAL TID folic acid 1 mg tab(s) 1 mg ORAL DAILY cholecalciferol 4,000 Units tab(s) (VITAMIN D3) 4,000 Units ORAL DAILY levothyroxine 50 mcg tab(s) (SYNTHROID) 50 mcg ORAL DAILY (6 AM) [START ON 04/04/2024] cinacalcet 30 mg tab(s) (SENSIPAR) 30 mg ORAL DAILY NaCl 0.9% iv infusion 100 mL/hr INTRAVENOUS CONTINUOUS Objective BP 117/69 Pulse 72 Temp (Src) 98.1 (Oral) Resp 16 Ht 5' 4 (1.63m) Wt 189 lb 9.5 oz (86.0kg) SpO2 97% BMI 32.53 kg/(m2). O2 Therapy: Room Air PHYSICAL EXAM: GENERAL: No acute distress. AANDO. LUNGS: Normal respiratory effort. PSYCH: Pleasant and cooperative. Mood stable. DATA: Diagnostic tests reviewed for today's visit: Recent Labs 04/03/2443804/02/2445104/02/241 04/01/24 1245 04/01/24 0853 WBC 13.49* 11.83* -- 11.91* -- HB 9.3* 8.7* -- 10.7* -- HCT 26.6* 24.8* -- 31.0* -- PLT 162 152 -- 179 -- INR -- -- 1.1 -- -- NA 138 -- 136 137 136 K 4.5 -- 4.2 4.0 3.3* CHLOR 101 -- 101 98 96* CO2 29 -- 27 27 26 BUN 19 -- 18 19 21 CREAT 1.58* -- 1.53* 1.59* 1.49* GLUC 73* -- 86 93 106* CA 11.1* -- 10.7* 12.5* 11.5* MG 1.7 -- 1.9 1.5* -- P 3.3 -- 3.3 -- 2.8 Recent Labs 04/03/2443804/02/2445004/01/24 1245 TPROT 7.1 6.9 8.5* ALB 4.0 3.8* 4.7 ALT 73* 53* 76* AST 63* 44* 66* ALKPHOS 99 90 117 TBILI 0.4 0.4 0.4 Impression/Recommendations Hypercalcemia CRISTINO Bronchogenic cancer of right lung Anemia Hypothyroidism -CRISTINO from pembrolizumab and/or cisplatin -No symptoms from hypercalcemia -Received Zometa 2 days ago and is tolerating methylprednisolone well -patient started on cinacalcet today per nephrology -plan to complete 3 days of IV steroids then resume po prednisone 30mg daily until renal bx is resulted then suggest quick taper off as outpatient per nephrology -blood counts improving -patient started on levothyroxine 50mcg once daily, plan to recheck TSH/T4 in 4-6 weeks -appreciate nephrology and hospitalist recommendations -Dr. Castle to discuss timing of surgery with thoracic surgery pending clinical course over next few days -patient has follow up scheduled with Dr. Castle on 04/11/2024 -nephrology following closely outpatient Thank you for involving us in this patient's care. We will continue to follow. If there are any urgent needs please call the attending aviation program manager. Portions of my encounter note have been copied from Dr. Castle's previous hematology/oncology note dated 04/02/2024 which have been reviewed/updated where appropriate and reflect my current medical decision-making from today's encounter, 04/03/2024. SIGNATURE: Maris Chun APRN.DIRECTOR OF PURCHASING PATIENT NAME: Vickey Schwartz DATE: April 03, 2024 TIME: 6:10 PM [facility] CONSULT PROG HNO ID: [id number] Author: TAMY HURLEY MD Service: Nephrology Author Type: Physician Type: Consult Progress Note Filed: 04/03/2024 11:40 Note Text: Patient seen and examined. No complaints. Started on levothyroxine for elevated TSH. Renal biopsy scheduled for 1pm today. Blood pressure 107/69, pulse 66, temperature 36.9 ?C (98.4 ?F), temperature source Oral, resp. rate 16, height 162.6 cm (5' 4), weight 86 kg (189 lb 9.5 oz), SpO2 95%. Intake/Output Summary (Last 24 hours) at 04/03/2024 1134 Last data filed at 04/03/2024 0844 Gross per 24 hour Intake 1427 ml Output -- Net 1427 ml Gen: NAD, pleasant Resp: clear CVS: no rub Abd: soft Ext: no pitting edema UA bland K 4.5, HCO 29, Cr 1.58 Ca 11.1 Ion Ca 1.40 stable Vit D 43, PTH 57, PTHrp pending TSH 90 Impression: Sustained CRISTINO - Cr mid 1 range since initiation of chemotherapy in 12/2023 (cisplatin/permetrexed/pemb rolizumab). Stopped cisplatin last 2 cycles with no improvement in renal function. Unclear cause, rule out checkpoint inhibitor associated nephritis Hypercalcemia that developed in Feb 2024. PTH is not suppressed. PTHrp pending. Treated with zometa 25/25 Hypomagnesemia - likely due to cisplatin Severe hypothyroidism - started on levothyroxine today Plan: Restart IVF at 100cc/hr since NPO Start cinacalcet since PTH not suppressed; can continue 30mg daily on discharge Probably would complete 3 days of IV steroids then restart prednisone 30mg daily till we have renal biopsy results back. If no evidence of immune mediated nephritis - would suggest quick taper to off as outpatient Follow up PTHrp Agree with levothyroxine Renal biopsy today Stop oral calcium supplement No objection to DC planning I ordered labs in Epic for next week Normal [facility] CT BIOPSY RENALon 04-03-2024 CT BIOPSY RENAL * * *Final Report* * * DATE OF EXAM: Apr 03 2024 2:15PM [facility] [place] BI[place] / PROCEDURE REASON: Kidney failure, acute * * * * Physician Interpretation * * * * PROCEDURE PERFORMED: CT BIOPSY RENAL INDICATION FOR PROCEDURE: 63 years old Female with Kidney failure, acute presents for random renal biopsy. STAFF RADIOLOGIST: Dr. Wendy Esteban CONSENT: The risks, benefits, treatment options, potential complications and personnel involved were discussed with the patient. All questions were answered and consent was obtained. The patient indicated she was willing to proceed. The staff physician personally verified consent. TIME OUT: A time out was performed immediately prior to procedure start with the nursing and interventional team, correctly identifying the patient name, date of , procedure, anatomy (including marking of site and side), patient position, procedure consent form, relevant diagnostic and radiology test results, antibiotic administration (when indicated), safety precautions, and procedure-specific equipment needs. RESULT: PROCEDURE: Patient was placed in a prone position. After performing the time out, the LEFT kidney lower pole was localized under CT. LEFT flank was prepped and draped in the usual sterile fashion. Under direct CT guidance, a 17 gauge trochar needle was advanced to the LEFT kidney lower pole. Through the trochar, 2 passes made into the LEFT kidney lower pole using an 18 core biopsy needle. After specimens were obtained, blunt tip needle was placed into the trocar needle to achieve hemostasis. After adequate hemostasis was achieved needles were removed. The patient was transferred to the back to the hospital room in stable condition. ANESTHESIA/SEDATION: Conscious sedation was achieved using 0.5 mg of versed and 25 mcg of fentanyl intravenously. Local anesthesia was achieved utilizing 7 mL 1% lidocaine. START TIME/TIMEOUT TIME: 1349 END TIME: 1358 INTRA-SERVICE (SEDATION) TIME: 15 minutes PATIENT MONITORING: The staff physician personally supervised and directed an independent trained observer who assisted in monitoring the patient?s level of consciousness and physiological status throughout the procedure. COMPLICATIONS: No immediate complications. SIGN-OUT DISCUSSION: Completed ESTIMATED BLOOD LOSS: None CONTRAST: None RADIATION DOSE: Dose-length product (DLP) = 562 mGy*cm. CT Dose Reduction Employed: Automated exposure control(AEC) and iterative recon SPECIMENS: 2 core biopsy specimens were placed on saline soaked Telfa pad and sent for surgical pathology. BIOPSY DEVICE: 18 gauge CorVocet core biopsy needle. IMPRESSION: CT guided random renal biopsy as described. Acute Care Nurse: BAYLEE Transcribe Date/Time: Apr 03 2024 2:36P Dictated by : WENDY ESTEBAN DO This examination was interpreted and the report reviewed and electronically signed by: WENDY ESTEBAN DO on Apr 03 2024 2:41PM EST [id number] Normal [facility] Calcium.ionized [Moles/Vol]o n 04-03-2024 Calcium.ionized (Bld) [Mass/Vol] 1.40 mmol/L High 1.08-1.30 [facility] Comment on above: Order Comment: Medina sales Type: BLOOD SPECIMEN Ordering Facility: [facility] Address: [address] [place] [address] Performed By: #### 2 731-8, 2284-8, 4542-7, 2132-9, 3024-7 #### [facility] CLIA [id number] [address] [place] [address] [place] Calcium.ionized adjusted to pH 7.4 (Bld) [Moles/Vol] 1.39 mmol/L High 1.08-1.30 [facility] Comment on above: Order Comment: Medina sales Type: BLOOD SPECIMEN Ordering Facility: [facility] Address: [address] [place] [address] Performed By: #### 2 731-8, 2284-8, 4542-7, 2131-9, 3023-7 #### [facility] CLIA [id number] [address] [place], [place] [address] [place] Comprehensive metabolic 2000 panelon 04-03-2024 Albumin [Mass/Vol] 4.0 g/dL Normal 3.9-4.9 [facility] Comment on above: Order Comment: Speci men Type: BLOOD SPECIMEN Ordering Facility: [facility] Address: [address] [place] [address] Performed By: #### 2 731-8, 2284-8, 4542-7, 2131-9, 3023-08 #### [facility] CLIA [id number] [address] [place] [address] [place] ALP [Catalytic activity/Vol] 99 U/L Normal 34-123 [facility] Comment on above: Order Comment: Speci men Type: BLOOD SPECIMEN Ordering Facility: [facility] Address: [address] [place] [address] Performed By: #### 2 731-8, 2284-8, 4542-7, 2131-9, 3023-08 #### [facility] CLIA [id number] [address] [place] [address] [place] ALT [Catalytic activity/Vol] 73 U/L High 7-38 [facility] Comment on above: Order Comment: Speci men Type: BLOOD SPECIMEN Ordering Facility: [facility] Address: [address] [place] [address] Performed By: #### 2 731-8, 2284-8, 4542-7, 2131-9, 3023-08 #### [facility] CLIA [id number] [address] [place] [address] [place] Anion gap [Moles/Vol] 8 mmol/L Normal 8-15 [facility] Comment on above: Order Comment: Speci men Type: BLOOD SPECIMEN Ordering Facility: [facility] Address: [address] [place] [address] Performed By: #### 2 731-8, 2284-8, 4542-7, 9, 3023-08 #### [facility] CLIA [id number] [address] [place] [address] [place] AST [Catalytic activity/Vol] 63 U/L High 13-35 [facility] Comment on above: Order Comment: Speci men Type: BLOOD SPECIMEN Ordering Facility: [facility] Address: [address] [place] [address] Performed By: #### 2 731-8, 2284-8, 4542-7, 9, 3023-08 #### [facility] CLIA [id number] [address] [place] [address] [place] Bilirubin [Mass/Vol] 0.4 mg/dL Normal 0.2-1.3 [facility] Comment on above: Order Comment: Speci men Type: BLOOD SPECIMEN Ordering Facility: [facility] Address: [address] [place] [address] Performed By: #### 2 731-8, 2284-8, 454-7, 2131-10, 3023-08 #### [facility] CLIA [id number] [address] [place] [address] [place] Calcium [Mass/Vol] 11.1 mg/dL High 8.5-10.2 [facility] Comment on above: Order Comment: Speci men Type: BLOOD SPECIMEN Ordering Facility: [facility] Address: [address] [place], [place] [address] Performed By: #### 2 731-8, 2284-8, 4542-7, 2131-10, 3023-08 #### [facility] CLIA [id number] [address] [place], [place] [address] [place] Chloride [Moles/Vol] 101 mmol/L Normal 98-107 [facility] Comment on above: Order Comment: Speci men Type: BLOOD SPECIMEN Ordering Facility: [facility] Address: [address] [place], [place] [address] Performed By: #### 2 731-8, 2284-8, 4542-7, 9, 7 #### [facility] CLIA [id number] [address] [place], [place] [address] [place] CO2 [Moles/Vol] 29 mmol/L Normal 22-30 [facility] Comment on above: Order Comment: Speci men Type: BLOOD SPECIMEN Ordering Facility: [facility] Address: [address] [place], [place] [address] Performed By: #### 2 731-8, 2284-8, 4542-7, 2131-9, 7 #### [facility] CLIA [id number] [address] [place] [address] [place] Creatinine [Mass/Vol] 1.58 mg/dL High 0.58-0.96 [facility] Comment on above: Order Comment: Speci men Type: BLOOD SPECIMEN Ordering Facility: [facility] Address: [address] [place] [address] Performed By: #### 2 731-8, 2284-8, 4541-7, 9, 3023-08 #### [facility] CLIA [id number] [address] [place] [address] [place] Creatinine and Glomerular filtration rate.predicted panel (S/P/Bld) 37 mL/min/1.73m??? Low >=60 [facility] Comment on above: Order Comment: Speci men Type: BLOOD SPECIMEN Ordering Facility: [facility] Address: [address] [place] [address] Result Comment: Ann mated Glomerular Filtration Rate (eGFR) is calculated using the 2020 CKD-EPI creatinine equation. This equation utilizes serum creatinine, sex, and age as parameters. The creatinine assay has traceable calibration to isotope dilution-mass spectrometry. Refer to KDIGO guidelines for clinical interpretation. In patients with unstable renal function, e.g. those with acute kidney injury, the eGFR may not accurately reflect actual GFR. Performed By: #### 2 731-8, 2284-8, 4542-7, 2131-10, 3023-08 #### [facility] CLIA [id number] [address] [place] [address] [place] Glucose [Mass/Vol] 73 mg/dL Low 74-99 [facility] Comment on above: Order Comment: [facility] Type: BLOOD SPECIMEN Ordering Facility: [facility] Address: [address] [place], [place] [address] Result Comment: The [place] Diabetes Association (ADA) provides guidance for cutoff values for fasting glucose and random glucose. The ADA defines fasting as no caloric intake for at least 8 hours. Fasting plasma glucose results between 100 to 125 mg/dL indicate increased risk for diabetes (prediabetes). Fasting plasma glucose results greater than or equal to 126 mg/dL meet the criteria for diagnosis of diabetes. In the absence of unequivocal hyperglycemia, results should be confirmed by repeat testing. In a patient with classic symptoms of hyperglycemia or hyperglycemic crisis, random plasma glucose results greater than or equal to 200 mg/dL meet the criteria for diagnosis of diabetes. Reference: Standards of Medical Care in Diabetes 2016, [place] [employer] Association. Diabetes Care. 2016.39(Suppl 1). Performed By: #### 2 731-8, 2284-8, 4541-7, 2131-10, 3023-08 #### [facility] CLIA [id number] [address] [place] [address] [place] Potassium [Moles/Vol] 4.5 mmol/L Normal 3.7-5.1 [facility] Comment on above: Order Comment: [place] [employer] Type: BLOOD SPECIMEN Ordering Facility: [facility] Address: [address] [place] [address] Performed By: #### 2 731-8, 2284-8, 4541-7, 2131-10, 3023-08 #### [facility] CLIA [id number] [address] [place] [address] [place] Protein [Mass/Vol] 7.1 g/dL Normal 6.3-8.0 [facility] Comment on above: Order Comment: Speci men Type: BLOOD SPECIMEN Ordering Facility: [facility] Address: [address] [place] [address] Performed By: #### 2 731-8, 2284-8, 4542-7, 9, 3023-08 #### [facility] CLIA [id number] [address] [place] [address] [place] Sodium [Moles/Vol] 138 mmol/L Normal 136-144 [facility] Comment on above: Order Comment: Speci men Type: BLOOD SPECIMEN Ordering Facility: [facility] Address: [address] [place] [address] Performed By: #### 2 731-8, 2284-8, 454-7, 2131-10, 3023-08 #### [facility] CLIA [id number] [address] [place] [address] [place] Urea nitrogen [Mass/Vol] 19 mg/dL Normal 7-21 [facility] Comment on above: Order Comment: Speci men Type: BLOOD SPECIMEN Ordering Facility: [facility] Address: [address] [place] [address] Performed By: #### 2 731-8, 2284-8, 4542-7, 2131-10, 3023-08 #### [facility] CLIA [id number] [address] [place], [place] [address] [place] Magnesium SerPl-mCncon 04-03 Magnesium [Mass/Vol] 1.7 mg/dL Normal 1.7-2.3 [facility] Comment on above: Order Comment: Speci men Type: BLOOD SPECIMEN Ordering Facility: [facility] Address: [address] [place] [address] Performed By: #### 2 731-8, 2284-8, 4542-7, 2131-10, 3023-08 #### [facility] CLIA [id number] [address] [place], [place] [address] [place] Pathology biopsy report Tae (Tiss)on 04-03-2024 AP DISCLAIMER [facility] Comment on above: Order Comment: Med[facility] sales Type: BLOOD SPECIMEN Ordering Facility: [facility] Address: [facility] [place] [address] Result Comment: Elder arreguin Developed Test (LDT) Disclaimer: Performance characteristics of immunohistochemical, immunofluorescent, and chromogenic in-situ hybridization tests have been determined by the performing laboratory within [facility] Pathology and Laboratory Medicine Department ([facility], [facility], [facility], [facility], [facility], [facility], or [facility]) in a manner consistent with CLIA requirements. One or more of these tests may not have been cleared or approved by the FDA. [facility] is regulated under CLIA as qualified to perform high-complexity testing. These tests are used for clinical purposes. These should not be regarded as investigational or for research. Positive and negative controls stain appropriately. Performed By: #### 1 4196-0, 68708-9 #### [facility] CLIA [id number] [address] CASE REPORT [facility] Comment on above: Order Comment: [place] sales Type: BLOOD SPECIMEN Ordering Facility: [facility] Address: [address] [place] [address] Result Comment: Surg [facility] Pathology Report Case: [id number] Authorizing Provider: Wendy Esteban DO, DO Collected: 04/03/2024 02:06 PM Ordering Location: [facility] Radiology Received: 04/03/2024 02:24 PM Pathologist: Kelvin De La Rosa MD Specimen: Kidney, Left, Biopsy Performed By: #### 1 4196-0, 16508-6 #### [facility] CLIA [id number] [address] CLINICAL HISTORY 63-year-old woman wi th sustained CRISTINO and creatinine in the mid ones since beginning chemo in December 2023. Regimen includes cisplatin, which was discontinued for the last 2 cycles without improvement in renal function. The patient is also on a checkpoint inhibitor. Biopsy performed to evaluate for possible checkpoint inhibitor mediated interstitial nephritis. Recent urinalysis shows no protein or blood and no increased WBCs. Normal [facility] Comment on above: Order Comment: [place] [employer] Type: BLOOD SPECIMEN Ordering Facility: [facility] Address: [address] [place] [address] Performed By: #### 1 4196-0, 09997-4 #### [facility] CLIA [id number] [address] DIAGNOSIS COMMENT The negative immunofluorescence findings provide evidence against active immune complex mediated glomerular disease. A total of 38 glomeruli are sampled, 5 of which are globally sclerotic which is an age-appropriate degree of glomerular scarring. The tubulointerstitium shows moderate diffusely distributed fibrosis involving approximately half of the parenchyma, with patchy changes of tubular injury, consistent with a noninflammatory tubulointerstitial nephropathy. Given the CRISTINO developed in conjunction with cisplatin exposure, this likely reflects more subacute to chronic injury of the renal parenchyma from cisplatin toxicity. No evidence of an active tubulointerstitial inflammatory process that would support the diagnosis of checkpoint inhibitor tubulointerstitial nephritis is identified. [facility] Comment on above: Order Comment: [place] sales Type: BLOOD SPECIMEN Ordering Facility: [facility] Address: [address] [place] [address] Performed By: #### 1 4196-0, 06849-2 #### [facility] CLIA [id number] [address] FINAL DIAGNOSIS [facility] Comment on above: Order Comment: [place] sales Type: BLOOD SPECIMEN Ordering Facility: [facility] Address: [address] [place] [address] Result Comment: A. 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 - Negative for interstitial nephritis. See comment. at 1737 EST Performed By: #### 1 4196-0, 75827-3 #### [facility] CLIA [id number] [address] FINAL PERFORMING LAB [facility] Comment on above: Order Comment: [place] sales Type: BLOOD SPECIMEN Ordering Facility: [facility] Address: [address] [place] [address] Result Comment: Diag nostic interpretation performed at: [facility], [address] [place] [address], [address]k [address] [place] [address] CLIA# [id number] Qa Manager: Grady Ndiaye MD Performed By: #### 1 4196-0, 41545-3 #### [facility] CLIA [id number] [address] [place] [address] GROSS DESCRIPTION [facility] Comment on above: Order Comment: Speci men Type: BLOOD SPECIMEN Ordering Facility: [facility] Address: [address] [place] [address] Result Comment: Keon marr, Left, Biopsy Received fresh on saline moistened Telfa gauze are multiple segments of cylindrical tay, soft tissue aggregating to 3.6 x 0.1 x 0.1 cm. A portion is frozen and kept frozen for direct immunofluorescence. A portion is submitted for electron microscopy. A portion is submitted in formalin for light microscopy in cassette A2. VY April 03, 2024 5:25 PM Gross examination performed at [facility], [address] [place] [address] Performed By: #### 1 4196-0, 00291-6 #### [facility] CLIA [id number] [address] [place] [address] MICROSCOPIC DESCRIPTION [facility] Comment on above: Order Comment: Speci men Type: BLOOD SPECIMEN Ordering Facility: [facility] Address: [address] [place] [address] Result Comment: Sect ions are stained with H&E, PAS, trichrome and Hobson. Sections reveal 1 core of renal cortex and 1 core of renal medulla. Up to 23 glomeruli are sampled, 5 of which are globally sclerotic. The remaining glomeruli appear normocellular with patent capillary lumina. PAS and Hobson stains highlight normal basement membrane contours. The tubulointerstitium shows patchy tubular injury and moderate diffusely distributed interstitial fibrosis highlighted with trichrome staining. No active tubulointerstitial inflammation is identified. Vessels show moderate arteriosclerosis. Immunofluorescence staining is performed for IgG, IgA, IgM, C3, C1q, albumin, kappa and lambda. Up to 6 additional glomeruli are sampled none of which is sclerotic. Glomeruli show trace segmental mesangial staining for IgM but the remaining tested reactants are negative. And lambda stain equally within tubular casts and albumin highlights background tissue architecture. Tissue for electron microscopy samples up to 9 glomeruli all of which show patent capillary lumina. Tubules show patchy luminal ectasia. Ultrastructurally, glomerular basement membranes are normal in thickness and contour. Endothelial fenestrations are intact and podocyte foot process effacement is mild. No immune type electron-dense deposits are identified. The interstitium shows increased fibrosis but is otherwise unremarkable. Performed By: #### 1 4196-0, 50903-4 #### [facility] CLIA [id number] [address] [place] [address] [place] Phosphate SerPl-mCncon 04-03 Phosphate [Mass/Vol] 3.3 mg/dL Normal 2.7-4.8 [facility] Comment on above: Order Comment: [facility] Type: BLOOD SPECIMEN Ordering Facility: [facility] Address: [address] [place] [address] Performed By: #### 2 731-8, 2284-8, 4542-7, 2132-9, 3024-7 #### [facility] CLIA [id number] [address] [place] [address] [place] CBC W Auto Differential pane l (Bld)on 04-02-2024 Basophils (Bld) [#/Vol] 10*3/uL Normal <0.11 [facility] Comment on above: Order Comment: [facility] Type: BLOOD SPECIMEN Ordering Facility: [facility] Address: [address] [place] [address] Performed By: #### 1 4196-0, 06949-3 #### [facility] CLIA [id number] [address] [place] Basophils/100 WBC (Bld) 0.2 % Normal [facility] Comment on above: Order Comment: [place] [employer] Type: BLOOD SPECIMEN Ordering Facility: [facility] Address: [address] [place] [address] Performed By: #### 1 4196-0, 77350-8 #### [facility] CLIA [id number] [address] [place] Differential cell count method Nom (Bld) Auto Normal [facility] Comment on above: Order Comment: Speci men Type: BLOOD SPECIMEN Ordering Facility: [facility] Address: [address] [place] [address] Performed By: #### 1 4196-0, 85785-8 #### [facility] CLIA [id number] [address] [place] [address] [place] Eosinophils (Bld) [#/Vol] 10*3/uL Normal <0.46 [facility] Comment on above: Order Comment: Speci men Type: BLOOD SPECIMEN Ordering Facility: [facility] Address: [address] [place] [address] Performed By: #### 1 4196-0, 17369-4 #### [facility] CLIA [id number] [address] Eosinophils/100 WBC (Bld) 0.0 % Normal [facility] Comment on above: Order Comment: Speci men Type: BLOOD SPECIMEN Ordering Facility: [facility] Address: [address] [place] [address] Performed By: #### 1 4196-0, 76926-9 #### [facility] CLIA [id number] [address] [place] Erythrocyte distribution width (RBC) [Ratio] 16.3 % High 11.5-15.0 [facility] Comment on above: Order Comment: Speci men Type: BLOOD SPECIMEN Ordering Facility: [facility] Address: [address] [place] [address] Performed By: #### 1 4196-0, 48102-9 #### [facility] CLIA [id number] [address] [place] Hematocrit (Bld) [Volume fraction] 24.8 % Low 36.0-46.0 [facility] Comment on above: Order Comment: Speci men Type: BLOOD SPECIMEN Ordering Facility: [facility] Address: [address] [place] [address] Performed By: #### 1 4196-0, 40905-8 #### [facility] CLIA [id number] [address] [place] [address] [place] Hemoglobin (Bld) [Mass/Vol] 8.7 g/dL Low 11.5-15.5 [facility] Comment on above: Order Comment: Speci men Type: BLOOD SPECIMEN Ordering Facility: [facility] Address: [address] [place] [address] Performed By: #### 1 4196-0, 99958-9 #### [facility] CLIA [id number] [address] [place] [address] [place] Immature granulocytes (Bld) [#/Vol] 0.19 10*3/uL High <0.10 [facility] Comment on above: Order Comment: Speci men Type: BLOOD SPECIMEN Ordering Facility: [facility] Address: [address] [place] [address] Performed By: #### 1 4196-0, 79369-8 #### [facility] CLIA [id number] [address] [place] [address] [place] Immature granulocytes/100 WBC (Bld) 1.6 % Normal [facility] Comment on above: Order Comment: Speci men Type: BLOOD SPECIMEN Ordering Facility: [facility] Address: [address] [place] [address] Performed By: #### 1 4196-0, 50932-0 #### [facility] CLIA [id number] [address] [place] [address] [place] Lymphocytes (Bld) [#/Vol] 1.27 10*3/uL Normal 1.00-4.00 [facility] Comment on above: Order Comment: Speci men Type: BLOOD SPECIMEN Ordering Facility: [facility] Address: [address] [place] [address] Performed By: #### 1 4196-0, 72811-4 #### [facility] CLIA [id number] [address] [place] Lymphocytes/100 WBC (Bld) 10.7 % Normal [facility] Comment on above: Order Comment: Speci men Type: BLOOD SPECIMEN Ordering Facility: [facility] Address: [address] [place] [address] Performed By: #### 1 4196-0, 56091-4 #### [facility] CLIA [id number] [address] MCH (RBC) [Entitic mass] 34.9 pg High 26.0-34.0 [facility] Comment on above: Order Comment: Speci men Type: BLOOD SPECIMEN Ordering Facility: [facility] Address: [address] [place] [address] Performed By: #### 1 4196-0, #### [facility] CLIA [id number] [address] MCHC (RBC) [Mass/Vol] 35.1 g/dL Normal 30.5-36.0 [facility] Comment on above: Order Comment: Speci men Type: BLOOD SPECIMEN Ordering Facility: [facility] Address: [address] [place] [address] Performed By: #### 1 4196-0, #### [facility] CLIA [id number] [address] MCV (RBC) [Entitic vol] 99.6 fL Normal 80.0-100.0 [facility] Comment on above: Order Comment: Speci men Type: BLOOD SPECIMEN Ordering Facility: [facility] Address: [address] [place] [address] Performed By: #### 1 4196-0, #### [facility] CLIA [id number] [address] Monocytes (Bld) [#/Vol] 0.56 10*3/uL Normal <0.87 [facility] Comment on above: Order Comment: Speci men Type: BLOOD SPECIMEN Ordering Facility: [facility] Address: [address] [place] [address] Performed By: #### 1 4196-0, #### [facility] CLIA [id number] [address] Monocytes/100 WBC (Bld) 4.7 % Normal [facility] Comment on above: Order Comment: Speci men Type: BLOOD SPECIMEN Ordering Facility: [facility] Address: [address] [place] [address] Performed By: #### 1 4196-0, 17162-7 #### [facility] CLIA [id number] [address] [place] Neutrophils (Bld) [#/Vol] 9.79 10*3/uL High 1.45-7.50 [facility] Comment on above: Order Comment: Speci men Type: BLOOD SPECIMEN Ordering Facility: [facility] Address: [address] [place] [address] Performed By: #### 1 4196-0, 62743-7 #### [facility] CLIA [id number] [address] Neutrophils/100 WBC (Bld) 82.8 % Normal [facility] Comment on above: Order Comment: Speci men Type: BLOOD SPECIMEN Ordering Facility: [facility] Address: [address] [place] [address] Performed By: #### 1 4196-0, 46520-2 #### [facility] CLIA [id number] [address] Nucleated RBC (Bld) [#/Vol] 10*3/uL Normal <0.01 [facility] Comment on above: Order Comment: Speci men Type: BLOOD SPECIMEN Ordering Facility: [facility] Address: [address] [place] [address] Performed By: #### 1 4196-0, 63307-7 #### [facility] CLIA [id number] [address] Nucleated RBC/100 WBC (Bld) [Ratio] 0.0 /100 WBC Normal [facility] Comment on above: Order Comment: Speci men Type: BLOOD SPECIMEN Ordering Facility: [facility] Address: [address] [place] [address] Performed By: #### 1 4196-0, 70243-3 #### [facility] CLIA [id number] [address] [place] Platelet mean volume (Bld) [Entitic vol] 9.8 fL Normal 9.0-12.7 [facility] Comment on above: Order Comment: [facility] Type: BLOOD SPECIMEN Ordering Facility: [facility] Address: [address] [place] [address] Performed By: #### 1 4196-0, 89878-2 #### [facility] CLIA [id number] [address] [place] Platelets (Bld) [#/Vol] 152 10*3/uL Normal 150-400 [facility] Comment on above: Order Comment: [place] [facility] Type: BLOOD SPECIMEN Ordering Facility: [facility] Address: [address] [place] [address] Performed By: #### 1 4196-0, 65612-9 #### [facility] CLIA [id number] [address] RBC (Bld) [#/Vol] 2.49 10*6/uL Low 3.90-5.20 [facility] Comment on above: Order Comment: [place] [facility] Type: BLOOD SPECIMEN Ordering Facility: [facility] Address: [address] [place] [address] Performed By: #### 1 4196-0, 95614-5 #### [facility] CLIA [id number] [address] [facility] WBC (Bld) [#/Vol] 11.83 10*3/uL High 3.70-11.00 [facility] Comment on above: Order Comment: [place] [facility] Type: BLOOD SPECIMEN Ordering Facility: [facility] Address: [address] [place] [address] Performed By: #### 1 4196-0, 29505-2 #### [facility] CLIA [id number] [address] CONSULTon 04-02-2024 CONSULT HNO ID: [id number] Author: ALF CASTLE DO Service: Hematology/Oncology Author Type: Physician Type: Consults Filed: 04/02/2024 17:57 Note Text: Elements copied from my note dated 03/21/2024 have been reviewed and updated where appropriate, and all reflect current assessment and medical decision making during today's encounter. HPI: The patient is a 63-year-old female with a past medical history as outlined below. The patient is a former smoker of approximately 7-pack-year, quit in 2015. She is on Plaquenil for history of lupus. She has primary biliary cholangitis. She had a nodule discovered on lung cancer screening study for surveillance of her interstitial pulmonary fibrosis. A CT of the chest done in June 2023 demonstrated an interval new 13 x 19 mm right lower lobe subpleural nodule. PET scan done in July showed the nodule to measure 20.6 mm with an SUV of 14.0. Perihilar lymph nodes measuring up to 11 mm which were stable in size with an SUV of 10.7. She underwent a CT-guided biopsy of the right lower lobe nodule. Pathology demonstrated poorly differentiated non-small cell carcinoma favoring adenocarcinoma. She underwent bronchoscopy with EBUS. Samples from 11 RS demonstrated rare atypical epithelial cells and station 7 was negative for malignant cells. 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 CT has been stable and pulmonary function tests do not show restriction or low diffusing capacity. Patient prefers pulmonary follow-up closer to home. Patient is asymptomatic so antifibrotic therapy has been on hold. 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 She denies significant dyspnea except for with extreme activity. Chronic cough or sputum production. No wheezing. She used to smoke a pack a week but quit in 2015 when she had note of a small nodule on chest CT. Today she states that she continues to do well. Her Plaquenil controls her cutaneous symptoms. She has no arthralgias, erythema or joint effusions, no skin lesions, no edema. She does have photosensitivity and limits her sun exposure. She has excessive daytime sleepiness, known snoring and witnessed apneas. HSAT from 2020 showed possible mild obstructive sleep at but she never followed through with formal in lab sleep study. She states that she can fall asleep easily when sitting watching TV or working on her computer. She is a loud snorer, in fact her brother has been bothering her to be reevaluated for apnea. Per initial consultation: She is working on a daily basis. 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 Gets short of breath with trying to run or walking steeper slopes. Recent 6-minute walk test results were very good. Recently had testing for sleep apnea which suggested sleep apnea. It was a home sleep study test. Occasional dry cough but not frequent throughout the day. 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 Appetite has been normal. Repeat CT chest 10/23/2023: Soft tissue mass along the posterior superior segment of the right lower lobe is increased in size, currently measuring 26 x 21 x 28 mm in transverse, AP and craniocaudal dimensions respectively, while previously measuring 20 x 16 x 27 mm in these same orientations. Numerous additional small lung nodules are unchanged relative to previous studies including 12/05/2021 Pleural space: No pleural effusion. No pleural thickening. Lower neck, lymph nodes, and mediastinum: There is new right hilar lymphadenopathy, measuring up to 13 mm in short axis on image 121. Additional enlarged right hilar nodes are present. 8 mm right paratracheal node. No axillary lymphadenopathy. Bronchoscopy 11/22/2023: Pathology: A - Lymph Node, Transbronchial, Aspirate/Fine Needle Aspirate - 4R Negative for malignant cells. Benign lymphoid sample. B - Lymph Node, Transbronchial, Aspirate/Fine Needle Aspirate - 11RS Positive for malignant cells. Non-small cell carcinoma. C - Lymph Node, Transbronchial, Aspirate/Fine Needle Aspirate - 11RI Positive for malignant cells. Non-small cell carcinoma. Received neoadjuvant pemetrexed, cisplatin and pembrolizumab. Completed 4 cycles. Cisplatin omitted cycles 3 and 4 due to CRISTINO. Admitted for management of CRISTINO. Has no complaints tonight. Appetite is normal and no nausea. Bowels moving normally. PAST MEDICAL HISTORY Diagnosis Date Hemorrhage of rectum and anus HYPERLIPIDEMIA MIXED 07/10/2005 Lung nodule 06/13/2016 June 25, 2017 subcentimeter lung nodules and interstitial lung disease also stable from 2017: check CT in 1 year. Primary biliary cholangitis (HCC) Snoring Systemic lupus erythematosus (HCC) PAST SURGICAL HISTORY Procedure Laterality Date BRONCHOSCOPY 07/31/2023 COLONOSCOPY FLX DX W/COLLJ SPEC WHEN PFRMD 06/29/2016 HAD VASOVAGA (more content not included)... Normal [facility] CONSULT HNO ID: [id number] Author: TAMY HURLEY MD Service: Nephrology Author Type: Physician Type: Consults Filed: 04/02/2024 07:10 Note Text: CONSULT: NEPHROLOGY SERVICE PATIENT NAME: Vickey Schwartz DATE of SERVICE: 04/02/24 TIME of SERVICE: 7:01 AM REASON FOR CONSULT: CRISTINO, hypercalcemia REQUESTING PHYSICIAN: Dr. Castle PRIMARY CARE PHYSICIAN: Camilo Jonas MD Ms. Schwartz is a 63yo female dx with stage IIb NSCLC last year, started on cisplatin/permetrexed/pembr olizumab on 12/10/23. Her pre-chemo Cr was 0.6 yuly to 1.38 shortly after initiation of this regimen. It has varied between 0.98 and 1.6 since that time despite cisplatin being stopped during cycle 2. She has been maintained on permetrexed and pembrolizumab and has completed 4 cycles. She is being worked up for surgical resection but this has been postponed till next month due to metabolic abnormalites. More recently since February, has been having hypercalcemia up to 12.5. She was evaluated by Dr. 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 It was suggested that patient stop pembrolizumab and present to ER for steroid initiation and possible renal biopsy. She was sent home from ER on 03/12/24 at [facility] and started on prednisone 60mg daily as outpatient by Dr. Castle on 03/13/24. Despite this, no major change in renal function and calcium has started to rise. She has been quickly weaned down to 30mg prednisone but now re-presenting to ER due to sustained CRISTINO and worsening hypercalcemia. Last evening - we gave a dose of zometa and IVF; holding off on calcitonin. She was taking one calcium pill a day but denies any tums. No HCTZ. She feels generally ok; a bit tired. No nausea or vomiting. Has been drinking a lot of fluids and also urinating a lot. Denies any diarrhea. No fevers or chills. No NSAIDs. She feels the steroids are making it difficult for her to sleep. PAST MEDICAL HISTORY: PAST MEDICAL HISTORY Diagnosis Date Hemorrhage of rectum and anus HYPERLIPIDEMIA MIXED 07/10/2005 Lung nodule 06/13/2016 June 25, 2017 subcentimeter lung nodules and interstitial lung disease also stable from 2017: check CT in 1 year. Primary biliary cholangitis (HCC) Snoring Systemic lupus erythematosus (HCC) PAST SURGICAL HISTORY: PAST SURGICAL HISTORY Procedure Laterality Date BRONCHOSCOPY 07/31/2023 COLONOSCOPY FLX DX W/COLLJ SPEC WHEN PFRMD 06/29/2016 HAD VASOVAGAL RESPONSE DURING PROCEDURE SYST BP 60'S HR 40'S-GIVEN ATROPINE CORRJ HLX VLGS BNCTY SESMDC DSTL METAR OSTEOT 1985 DIAGNOSTIC ARTHROSCOPY SHOULDER +- SYNOVIAL BX Left 04/03/2018 Left shoulder arthroscopic subacromial decompression, rotator cuff repair, and biceps tenotomy EGD 12/25/2022 repeat 2 years ESOPHAGOGASTRODUODENOSCOPY TRANSORAL DIAGNOSTIC 11/11/2018 EGD ESOPHAGOGASTRODUODENOSCOPY TRANSORAL DIAGNOSTIC 11/22/2020 repeat in 2 years FOOT SURGERY HX 1986 HYSTEROSCOPY 06/21/2017 DANDC LUNG BIOPSY HX 08/24/2023 SIGMOIDOSCOPY ?2000 SKIN BIOPSY HX TONSILLECTOMY HX FAMILY HISTORY: FAMILY HISTORY Problem Relation Age of Onset Diabetes Mother Hypertension Mother Stroke Mother other (? SFTP) Mother Heart Father age 60's other (PBC) Father None Brother Obstructive Sleep Apnea Brother Colon Cancer Paternal Grandmother Colon Cancer Paternal Grandfather SOCIAL HISTORY: Social History Tobacco Use Smoking status: Former Current packs/day: 0.00 Average packs/day: 0.2 packs/day for 30.0 years (4.5 ttl pk-yrs) Types: Cigarettes Start date: 1985 Quit date: 2016 Years since quittin.1 Smokeless tobacco: Never Tobacco comments: Pt smoked one pack a week x 30 years, quit 2016 Vaping Use Vaping status: Never Used Substance Use Topics Alcohol use: No Drug use: No MEDICATIONS: Prior to Admission Medications: predniSONE (DELTASONE) 20 mg tablet, Take 2 tablets by mouth once daily., Disp: 90 tablet, Rfl: 1, 04/01/2024 Morning magnesium chloride (SLOW-MAG ORAL), Take 1 tablet by mouth two times a day., Disp: , Rfl: , 04/01/2024 Morning hydrOXYchloroQUINE (PLAQUENIL) 200 mg tablet, Take 1 tablet by mouth two times a day., Disp: 180 tablet, Rfl: 0, 04/01/2024 Morning ursodiol (ACTIGALL) 300 mg capsule, Take 1 capsule by mouth three times a day., Disp: 270 capsule, Rfl: 3, 04/01/2024 Morning folic acid 1 mg tablet, Take 1 tablet by mouth once daily., Disp: 90 tablet, Rfl: 2, 04/01/2024 Morning cholecalciferol (VITAMIN D-3) 50 mcg (2,000 unit) tablet, Take 4,000 Units by mouth once daily., Disp: , Rfl: , 04/01/2024 Morning biotin 5,000 mcg ODT, Take 1 tablet by mouth once daily., Disp: , Rfl: , 04/01/2024 Morning Calcium-Cholecalciferol, D3, 500 mg-10 mcg (400 unit) per tablet, Take 1 tablet by mouth once daily., Disp: , Rfl: , 04/01/[address] (PROTONIX) 40 mg tablet, Take 1 tablet by mouth once daily., Disp: 90 tablet, Rfl: 3, Unknown m (more content not included)... Normal [facility] Calcium.ionized [Moles/Vol]o n 04-02-2024 Calcium.ionized (Bld) [Mass/Vol] 1.35 mmol/L High 1.08-1.30 [facility] Comment on above: Order Comment: Medina sales Type: BLOOD SPECIMEN Ordering Facility: [facility] Address: [address] [place] [address] Performed By: #### 2 731-8, 2284-8, 4542-7, 9, 3023-08 #### [facility] CLIA [id number] [address] [place] [address] [place] Calcium.ionized adjusted to pH 7.4 (Bld) [Moles/Vol] 1.35 mmol/L High 1.08-1.30 [facility] Comment on above: Order Comment: Mdeina sales Type: BLOOD SPECIMEN Ordering Facility: [facility] Address: [address] [place] [address] Performed By: #### 2 731-8, 2284-8, 4542-7, 2131-9, 3023-08 #### [facility] CLIA [id number] [address] [place], [place] [address] [place] Comprehensive metabolic 2000 panelon 04-02-2024 Albumin [Mass/Vol] 3.8 g/dL Low 3.9-4.9 [facility] Comment on above: Order Comment: Speci men Type: BLOOD SPECIMEN Ordering Facility: [facility] Address: [address] [place] [address] Performed By: #### 2 731-8, 2284-8, 4542-7, 9, 7 #### [facility] CLIA [id number] [address] [place], [place] [address] [place] ALP [Catalytic activity/Vol] 90 U/L Normal 34-123 [facility] Comment on above: Order Comment: Speci men Type: BLOOD SPECIMEN Ordering Facility: [facility] Address: [address] [place] [address] Performed By: #### 2 731-8, 2284-8, 4542-7, 9, 3023-08 #### [facility] CLIA [id number] [address] [place] [address] [place] ALT [Catalytic activity/Vol] 53 U/L High 7-38 [facility] Comment on above: Order Comment: Speci men Type: BLOOD SPECIMEN Ordering Facility: [facility] Address: [address] [place], [place] [address] Performed By: #### 2 731-8, 2284-8, 4542-7, 9, 3023-08 #### [facility] CLIA [id number] [address] [place] [address] [place] Anion gap [Moles/Vol] 8 mmol/L Normal 8-15 [facility] Comment on above: Order Comment: Speci men Type: BLOOD SPECIMEN Ordering Facility: [facility] Address: [address] [place], [place] [address] Performed By: #### 2 731-8, 2284-8, 4542-7, 9, 3023-08 #### [facility] CLIA [id number] [address] [place] [address] [place] AST [Catalytic activity/Vol] 44 U/L High 13-35 [facility] Comment on above: Order Comment: Speci men Type: BLOOD SPECIMEN Ordering Facility: [facility] Address: [address] [place], [place] [address] Performed By: #### 2 731-8, 2284-8, 454-7, 2131-10, 3023-08 #### [facility] CLIA [id number] [address] [place], [place] [address] [place] Bilirubin [Mass/Vol] 0.4 mg/dL Normal 0.2-1.3 [facility] Comment on above: Order Comment: Speci men Type: BLOOD SPECIMEN Ordering Facility: [facility] Address: [address] [place] [address] Performed By: #### 2 731-8, 2284-8, 4541-7, 2131-10, 3023-08 #### [facility] CLIA [id number] [address] [place], [place] [address] [place] Calcium [Mass/Vol] 10.7 mg/dL High 8.5-10.2 [facility] Comment on above: Order Comment: Speci men Type: BLOOD SPECIMEN Ordering Facility: [facility] Address: [address] [place], [place] [address] Performed By: #### 2 731-8, 2284-8, 454-7, 2131-10, 3023-08 #### [facility] CLIA [id number] [address] [place], [place] [address] [place] Chloride [Moles/Vol] 101 mmol/L Normal 98-107 [facility] Comment on above: Order Comment: Speci men Type: BLOOD SPECIMEN Ordering Facility: [facility] Address: [address] [place], [place] [address] Performed By: #### 2 731-8, 2284-8, 454-7, 2131-10, 3023-08 #### [facility] CLIA [id number] [address] [place] [address] [place] CO2 [Moles/Vol] 27 mmol/L Normal 22-30 [facility] Comment on above: Order Comment: Speci henrry Type: BLOOD SPECIMEN Ordering Facility: [facility] Address: [address] [place] [address] Performed By: #### 2 731-8, 2284-8, 4542-7, 2131-10, 3023-08 #### [facility] CLIA [id number] [address] [place] [address] [place] Creatinine [Mass/Vol] 1.53 mg/dL High 0.58-0.96 [facility] Comment on above: Order Comment: Speci men Type: BLOOD SPECIMEN Ordering Facility: [facility] Address: [address] [place] [address] Performed By: #### 2 731-8, 2284-8, 4541-7, 2131-10, 3023-08 #### [facility] CLIA [id number] [address] [place] [address] [place] Creatinine and Glomerular filtration rate.predicted panel (S/P/Bld) 38 mL/min/1.73m??? 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 This equation utilizes serum creatinine, sex, and age as parameters. The creatinine assay has traceable calibration to isotope dilution-mass spectrometry. Refer to KDIGO guidelines for clinical interpretation. In patients with unstable renal function, e.g. those with acute kidney injury, the eGFR may not accurately reflect actual GFR. Performed By: #### 2 731-8, 2284-8, 4542-7, 9, 3023-08 #### [facility] CLIA [id number] [address] [place] [address] [place] Glucose [Mass/Vol] 86 mg/dL Normal 74-99 [facility] Comment on above: Order Comment: Medina sales Type: BLOOD SPECIMEN Ordering Facility: [facility] Address: [address] [place] [address] Result Comment: The [place] Diabetes Association (ADA) provides guidance for cutoff values for fasting glucose and random glucose. The ADA defines fasting as no caloric intake for at least 8 hours. Fasting plasma glucose results between 100 to 125 mg/dL indicate increased risk for diabetes (prediabetes). Fasting plasma glucose results greater than or equal to 126 mg/dL meet the criteria for diagnosis of diabetes. In the absence of unequivocal hyperglycemia, results should be confirmed by repeat testing. In a patient with classic symptoms of hyperglycemia or hyperglycemic crisis, random plasma glucose results greater than or equal to 200 mg/dL meet the criteria for diagnosis of diabetes. Reference: Standards of Medical Care in Diabetes 2016, [place] [employer]. Diabetes Care. 2016.39(Suppl 1). Performed By: #### 2 731-8, 2284-8, 4542-7, 2132-9, 3024-7 #### [facility] CLIA [id number] [address] [place] [address] [place] Potassium [Moles/Vol] 4.2 mmol/L Normal 3.7-5.1 [facility] Comment on above: Order Comment: Medina sales Type: BLOOD SPECIMEN Ordering Facility: [facility] Address: [address] [place] [address] Performed By: #### 2 731-8, 2284-8, 4542-7, 2132-9, 3024-7 #### [facility] CLIA [id number] [address] [place] [address] [place] Protein [Mass/Vol] 6.9 g/dL Normal 6.3-8.0 [facility] Comment on above: Order Comment: Medina sales Type: BLOOD SPECIMEN Ordering Facility: [facility] Address: [address] [place] [address] Performed By: #### 2 731-8, 2284-8, 4542-7, 9, 3023-08 #### [facility] CLIA [id number] [address] [place] [address] [place] Sodium [Moles/Vol] 136 mmol/L Normal 136-144 [facility] Comment on above: Order Comment: Speci men Type: BLOOD SPECIMEN Ordering Facility: [facility] Address: [address] [place] [address] Performed By: #### 2 731-8, 2284-8, 4542-7, 9, 3023-08 #### [facility] CLIA [id number] [address] [place] [address] [place] Urea nitrogen [Mass/Vol] 18 mg/dL Normal 7-21 [facility] Comment on above: Order Comment: Speci men Type: BLOOD SPECIMEN Ordering Facility: [facility] Address: [address] [place] [address] Performed By: #### 2 731-8, 2284-8, 4542-7, 9, 3023-08 #### [facility] CLIA [id number] [address] [place] [address] [place] Ferritin SerPl-mCncon 2024 Ferritin [Mass/Vol] 945.3 ng/mL High 14.7-205.1 [facility] Comment on above: Order Comment: Speci men Type: BLOOD SPECIMEN Ordering Facility: [facility] Address: [address] [place] [address] Performed By: #### 2 731-8, 2284-8, 4542-7, 9, 3023-08 #### [facility] CLIA [id number] [address] [place] [address] [place] Iron and Iron binding capaci ty panelon 04-02-2024 Iron [Mass/Vol] 122 ug/dL Normal 41-186 [facility] Comment on above: Order Comment: Speci men Type: BLOOD SPECIMEN Ordering Facility: [facility] Address: [address] [place], [place] [address] Performed By: #### 2 731-8, 2284-8, 454-7, 2131-10, 3023-08 #### [facility] CLIA [id number] [address] [place], [place] [address] [place] Iron binding capacity [Mass/Vol] 284 ug/dL Normal 232-386 [facility] Comment on above: Order Comment: Speci men Type: BLOOD SPECIMEN Ordering Facility: [facility] Address: [address] [place], [place] [address] Performed By: #### 2 731-8, 2284-8, 4541-7, 2131-10, 3023-08 #### [facility] CLIA [id number] [address] [place] [address] [place] Iron/TIBC [Molar ratio] 43.0 % Normal 15.0-57.0 [facility] Comment on above: Order Comment: Speci men Type: BLOOD SPECIMEN Ordering Facility: [facility] Address: [address] [place] [address] Performed By: #### 2 731-8, 2284-8, 454-7, 2131-10, 3023-08 #### [facility] CLIA [id number] [address] [place], [place] [address] [place] Magnesium SerPl-mCncon 04-02 Magnesium [Mass/Vol] 1.9 mg/dL Normal 1.7-2.3 [facility] Comment on above: Order Comment: Speci men Type: BLOOD SPECIMEN Ordering Facility: [facility] Address: [address] [place], [place] [address] Performed By: #### 2 731-8, 2284-8, 4542-7, 2131-10, 3023-08 #### [facility] CLIA [id number] [address] [place], [place] [address] [place] PT panel Coag (PPP)on 2024 INR Coag (PPP) [Relative time] 1.1 {INR} Normal 0.9-1.3 [facility] Comment on above: Order Comment: Medina sales Type: BLOOD SPECIMEN Ordering Facility: [facility] Address: [facility] [place] [address] Result Comment: Adilia min K Antagonist (VKA) Therapeutic Range: INR 2 to 3 (Target INR of 2.5) Note: For patients treated with VKA drugs, such as warfarin, the [place] [employer] 2012 Guideline recommends a therapeutic INR range of 2 to 3 (target INR of 2.5). This recommendation includes high-risk patients with antiphospholipid syndrome with previous arterial or venous thromboembolism, current-generation mechanical or bioprosthetic aortic heart valve replacement. Note: Patients with mechanical aortic valve replacement and additional risk factors for thromboembolic events (atrial fibrillation, previous thromboembolism, LV dysfunction, hypercoagulable conditions) or an older generation mechanical AVR (i.e., ball in-Cage) or any mechanical MVR should have a INR therapeutic range of 2.5 to 3.5 (target INR of 3). Candace GH, et al. Chest 2012, 141:7S-47S Ivan RA, et al. JAC 2017, 70: 252-289 Performed By: #### 2 731-8, 2284-8, 4542-7, 2131-9, 7 #### [facility] CLIA [id number] [address] [place], [place] [address] [place] PT Coag (PPP) [Time] 11.6 s Normal 9.7-13.0 [facility] Comment on above: Order Comment: Medina sales Type: BLOOD SPECIMEN Ordering Facility: [facility] Address: [address] [place] [address] Performed By: #### 2 731-8, 2284-8, 4542-7, 2131-9, 7 #### [facility] CLIA [id number] [address] [place], [place] [address] [place] Phosphate SerPl-mCncon 04-02 Phosphate [Mass/Vol] 3.3 mg/dL Normal 2.7-4.8 [facility] Comment on above: Order Comment: Medina sales Type: BLOOD SPECIMEN Ordering Facility: [facility] Address: [address] [place] [address] Performed By: #### 2 731-8, 2284-8, 4542-7, 2131-9, 7 #### [facility] CLIA [id number] [address] [place] [address] [place] Retics #on 04-02-2024 Reticulocytes (Bld) [#/Vol] 0.86544 10*3/uL Normal 0.018-0.100 [facility] Comment on above: Order Comment: Medina sales Type: BLOOD SPECIMEN Ordering Facility: [facility] Address: [address] [place] [address] Performed By: #### 1 4196-0, 25822-8 #### [facility] CLIA [id number] [address] [place] [address] [place] Reticulocytes (Bld) [#/Vol]o n 04-02-2024 Reticulocytes/100 RBC (Bld) 1.8 % Normal 0.4-2.0 [facility] Comment on above: Order Comment: Medina sales Type: BLOOD SPECIMEN Ordering Facility: [facility] Address: [address] [place] [address] Performed By: #### 1 4196-0, 97696-8 #### [facility] CLIA [id number] [address] [place] [address] [place] TSH SerPl-aCncon 04-02-2024 TSH Qn 90.720 m[IU]/L High 0.270-4.200 [facility] Comment on above: Order Comment: Medina sales Type: BLOOD SPECIMEN Ordering Facility: [facility] Address: [address] [place] [address] Performed By: #### 2 731-8, 2284-8, 2-7, 2131-9, 7 #### [facility] CLIA [id number] [address] [place] [address] [place] 1,25-dihydroxyvitamin D3 [Ma ss/Vol]on 04-01-2024 VIT D1,25 DIHYDROXY 31.3 pg/mL Normal 19.9-79.3 [facility] Comment on above: Order Comment: Speci men Type: BLOOD SPECIMEN Ordering Facility: [facility] Address: [address] [place], [place] [address] Performed By: #### 2 731-8, 2284-8, 7, 2131-10, 3023-08 #### [facility] CLIA [id number] [address] [place], [place] [address] [place] VIT D1,25 DIHYDROXY 45.0 pg/mL Normal 19.9-79.3 [facility] Comment on above: Order Comment: Speci men Type: BLOOD SPECIMENOrdering Facility: [facility] Address: [address] [place], [place] [address] Performed By: #### 1 649-3 ####[facility] [id number] [place] [id number] [place] 25(OH)D3 [facility] 25-hydroxyvitamin D3 [Mass/Vol] 42.5 ng/mL Normal 31.0-80.0 [facility] Comment on above: Order Comment: Speci men Type: BLOOD SPECIMEN Ordering Facility: [facility] Address: [address] [place], [place] [address] Result Comment: Clas sification of 25 [place] Vitamin D status: Deficiency/Insufficiency: < or = 30 ng/ml. Sufficiency/Optimal Levels: 31-80 ng/mL Toxicity: > 100 ng/mL. Test performed by chemiluminescent immunoassay. Performed By: #### 2 731-8, 2284-8, 7, 2131-10, 3023-08 #### [facility] CLIA [id number] [address] [place] [address] [id number] [place] ALLIED HEALTHon 04-01-2024 ALLIED HEALTH HNO ID: [id number] Author: KINDRA ANAND CT Service: Radiology Author Type: Technologist Type: Allied Health Filed: 04/01/2024 11:22 Note Text: Radiology Service Progress Note PATIENT NAME: Vickey Schwartz DATE OF SERVICE: April 01, 2024 TIME: 11:22 AM PATIENT IDENTITY VERIFICATION COMPLETED USING TWO (2) IDENTIFIERS: Name and Date of confirmed by patient verbally. FALL SCREENING: Has the patient had 2 falls in the last year or 1 fall with injury or currently using an Ambulatory Assistive Device (Walker, Cane, Wheelchair, Crutches, etc.)? Emergency Room Patient: Screened in ED PATIENT GENDER DATA: Assigned female at . status: : No status: NO. PATIENT RELEVANT IMPLANT DATA REVIEWED: Not Applicable PATIENT PRESENTS WITH AN IMPLANTABLE OR ATTACHED PREPRESS SPECIALIST: No RADIOLOGY DEPARTMENT: CT; Exam(s) Completed: Abdomen/Pelvis PERIPHERAL IV DATA: Not applicable SIGNED BY: ALBERTO Trotter April 01, 2024 11:22 AM Normal [facility] CALCITONIN BLOODon CALCITONIN <2.0 Normal 0.0-5.1 [facility] Comment on above: Order Comment: Speci men Type: BLOOD SPECIMENOrdering Facility: [facility] Address: [address] [place] [address] Result Comment: INTE RPRETIVE INFORMATION: CalcitoninCalcitonin levels greater than 100 pg/mL may occur in thefollowing conditions: medullary thyroid carcinomas (MTC),leukemias, and myeloproliferative disorders.Provocative testing (calcium) is suggested in patients with MTC ifthe calcitonin is not clearly diagnostic.The Siemens Immulite 2000 method is used. Results obtained withdifferent assay methods or kits cannot be used interchangeably.Calcitonin is useful in monitoring medullary thyroid carcinoma.The calcitonin assay value, regardless of level, should not beinterpreted as absolute evidence of the presence or absence ofmalignant disease.Performed By: [employer] [facility] [place], [place] [address]Ngsyjehujv Director: Collin Barnhart MD, PhDCLIA Number: [id number] Performed By: #### C ALCIT ####[facility] [employer] DirectIA [id number] [place] [address] CBC W Auto Differential pane l (Bld)on 04-01-2024 Basophils (Bld) [#/Vol] 0.04 10*3/uL Normal <0.11 [facility] Comment on above: Order Comment: Speci men Type: BLOOD SPECIMEN Ordering Facility: [facility] Address: [address] [place] [address] Performed By: #### 2 731-8, 2284-8, 454-7, 2131-10, 3023-08 #### [facility] CLIA [id number] [address] [place] [address] [place] Basophils/100 WBC (Bld) 0.3 % Normal [facility] Comment on above: Order Comment: Speci men Type: BLOOD SPECIMEN Ordering Facility: [facility] Address: [address] [place] [address] Performed By: #### 2 731-8, 2284-8, 4541-7, 2131-10, 3023-08 #### [facility] CLIA [id number] [address] [place] [address] [place] Differential cell count method Nom (Bld) Auto Normal [facility] Comment on above: Order Comment: Speci men Type: BLOOD SPECIMEN Ordering Facility: [facility] Address: [address] [place] [address] Performed By: #### 2 731-8, 2284-8, 4541-7, 2131-10, 3023-08 #### [facility] CLIA [id number] [address] [place] [address] [place] Eosinophils (Bld) [#/Vol] 10*3/uL Normal <0.46 [facility] Comment on above: Order Comment: Speci men Type: BLOOD SPECIMEN Ordering Facility: [facility] Address: [address] [place] [address] Performed By: #### 2 731-8, 2284-8, 4542-7, 9, 3023-08 #### [facility] CLIA [id number] [address] [place] [address] [place] Eosinophils/100 WBC (Bld) 0.2 % Normal [facility] Comment on above: Order Comment: Speci men Type: BLOOD SPECIMEN Ordering Facility: [facility] Address: [address] [place], [place] [address] Performed By: #### 2 731-8, 2284-8, 4542-7, 9, 3023-08 #### [facility] CLIA [id number] [address] [place], [place] [address] [place] Erythrocyte distribution width (RBC) [Ratio] 16.4 % High 11.5-15.0 [facility] Comment on above: Order Comment: Speci men Type: BLOOD SPECIMEN Ordering Facility: [facility] Address: [address] [place] [address] Performed By: #### 2 731-8, 2284-8, 4541-7, 2131-10, 3023-08 #### [facility] CLIA [id number] [address] [place] [address] [place] Hematocrit (Bld) [Volume fraction] 31.0 % Low 36.0-46.0 [facility] Comment on above: Order Comment: Speci men Type: BLOOD SPECIMEN Ordering Facility: [facility] Address: [address] [place] [address] Performed By: #### 2 731-8, 2284-8, 4541-7, 2131-10, 3023-08 #### [facility] CLIA [id number] [address] [place], [place] [address] [place] Hemoglobin (Bld) [Mass/Vol] 10.7 g/dL Low 11.5-15.5 [facility] Comment on above: Order Comment: Speci men Type: BLOOD SPECIMEN Ordering Facility: [facility] Address: [address] [place] [address] Performed By: #### 2 731-8, 2284-8, 4542-7, 9, 3023-08 #### [facility] CLIA [id number] [address] [place] [address] [place] Immature granulocytes (Bld) [#/Vol] 0.21 10*3/uL High <0.10 [facility] Comment on above: Order Comment: Speci men Type: BLOOD SPECIMEN Ordering Facility: [facility] Address: [address] [place] [address] Performed By: #### 2 731-8, 2284-8, 4542-7, 2131-10, 3023-08 #### [facility] CLIA [id number] [address] [place] [address] [place] Immature granulocytes/100 WBC (Bld) 1.8 % Normal [facility] Comment on above: Order Comment: Speci men Type: BLOOD SPECIMEN Ordering Facility: [facility] Address: [address] [place] [address] Performed By: #### 2 731-8, 2284-8, 454-7, 9, 3023-08 #### [facility] CLIA [id number] [address] [place] [address] [place] Lymphocytes (Bld) [#/Vol] 1.23 10*3/uL Normal 1.00-4.00 [facility] Comment on above: Order Comment: Speci men Type: BLOOD SPECIMEN Ordering Facility: [facility] Address: [address] [place] [address] Performed By: #### 2 731-8, 2284-8, 4542-7, 9, 3023-08 #### [facility] CLIA [id number] [address] [place] [address] [place] Lymphocytes/100 WBC (Bld) 10.3 % Normal [facility] Comment on above: Order Comment: Speci men Type: BLOOD SPECIMEN Ordering Facility: [facility] Address: [address] [place] [address] Performed By: #### 2 731-8, 2284-8, 454-7, 2131-10, 3023-08 #### [facility] CLIA [id number] [address] [place] [address] [place] MCH (RBC) [Entitic mass] 34.5 pg High 26.0-34.0 [facility] Comment on above: Order Comment: Speci men Type: BLOOD SPECIMEN Ordering Facility: [facility] Address: [address] [place] [address] Performed By: #### 2 731-8, 2284-8, 454-7, 2131-10, 3023-08 #### [facility] CLIA [id number] [address] [place] [address] [place] MCHC (RBC) [Mass/Vol] 34.5 g/dL Normal 30.5-36.0 [facility] Comment on above: Order Comment: Speci men Type: BLOOD SPECIMEN [facility]ing Facility[facility] Address: [address] [place] [address] Performed By: #### 2 731-8, 2284-8, 4541-7, 2131-10, 3023-08 #### [facility] CLIA [id number] [address] [place] [address] [place] MCV (RBC) [Entitic vol] 100.0 fL Normal 80.0-100.0 [facility] Comment on above: Order Comment: Speci men Type: BLOOD SPECIMEN Ordering Facility: [facility] Address: [address] [place] [address] Performed By: #### 2 731-8, 2284-8, 454-7, 2131-10, 3023-08 #### [facility] CLIA [id number] [address] [place] [address] [place] Monocytes (Bld) [#/Vol] 0.28 10*3/uL Normal <0.87 [facility] Comment on above: Order Comment: Speci men Type: BLOOD SPECIMEN Ordering Facility: [facility] Address: [address] [place], [place] [address] Performed By: #### 2 731-8, 2284-8, 4541-7, 2131-10, 3023-08 #### [facility] CLIA [id number] [address] [place] [address] [place] Monocytes/100 WBC (Bld) 2.4 % Normal [facility] Comment on above: Order Comment: Speci men Type: BLOOD SPECIMEN Ordering Facility: [facility] Address: [address] [place], [place] [address] Performed By: #### 2 731-8, 2284-8, 4541-7, 2131-10, 3023-08 #### [facility] CLIA [id number] [address] [place] [address] [place] Neutrophils (Bld) [#/Vol] 10.13 10*3/uL High 1.45-7.50 [facility] Comment on above: Order Comment: Speci men Type: BLOOD SPECIMEN Ordering Facility: [facility] Address: [address] [place] [address] Performed By: #### 2 731-8, 2284-8, 7, 2131-10, 3023-08 #### [facility] CLIA [id number] [address] [place] [address] [place] Neutrophils/100 WBC (Bld) 85.0 % Normal [facility] Comment on above: Order Comment: Speci men Type: BLOOD SPECIMEN Ordering Facility: [facility] Address: [address] [place], [place] [address] Performed By: #### 2 731-8, 2284-8, 4541-7, 2131-10, 3023-08 #### [facility] CLIA [id number] [address] [place], [place] [address] [place] Nucleated RBC (Bld) [#/Vol] 10*3/uL Normal <0.01 [facility] Comment on above: Order Comment: Speci men Type: BLOOD SPECIMEN Ordering Facility: [facility] Address: [facility] [place] [id number] Performed By: #### 2 731-8, 2284-8, 454-7, 2131-10, 3023-08 #### [facility] CLIA [id number] [address] [place], [place] [address] [place] Nucleated RBC/100 WBC (Bld) [Ratio] 0.0 /100 WBC Normal [facility] Comment on above: Order Comment: Speci men Type: BLOOD SPECIMEN Ordering Facility: [facility] Address: [address] [place] [address] [place] [id number] Performed By: #### 2 731-8, 2284-8, 454-7, 2131-10, 3023-08 #### [facility] CLIA [id number] [address] [place] [address] [place] Platelet mean volume (Bld) [Entitic vol] 9.7 fL Normal 9.0-12.7 [facility] Comment on above: Order Comment: Speci men Type: BLOOD SPECIMEN Ordering Facility: [facility] Address: [facility] [place] [address] Performed By: #### 2 731-8, 2284-8, 4541-7, 2131-10, 3023-08 #### [facility] CLIA [id number] [address] [place] [address] [place] Platelets (Bld) [#/Vol] 179 10*3/uL Normal 150-400 [facility] Comment on above: Order Comment: Speci men Type: BLOOD SPECIMEN [facility]ing [facility] Address: [facility] [place] [address] Performed By: #### 2 731-8, 2284-8, 4542-7, 2131-10, 3023-08 #### [facility] CLIA [id number] [address] [place], [place] [address] [place] RBC (Bld) [#/Vol] 3.10 10*6/uL Low 3.90-5.20 [facility] Comment on above: Order Comment: Speci men Type: BLOOD SPECIMEN Ordering Facility: [facility] Address: [address] [place] [address] Performed By: #### 2 731-8, 2284-8, 4542-7, 2132-9, 3024-7 #### [facility] CLIA [id number] [address] [place] [address] [place] WBC (Bld) [#/Vol] 11.91 10*3/uL High 3.70-11.00 [facility] Comment on above: Order Comment: Speci men Type: BLOOD SPECIMEN [facility]ing Facility: [facility] Address: [address] [place] [address] Performed By: #### 2 731-8, 2284-8, 4542-7, 2132-9, 3024-7 #### [facility] CLIA [id number] [address] [place] [address] [place] CNPNon 04-01-2024 CNPN Normal [facility] CT ABD/PEL WO IVCONon 2024 CT ABD/PEL WO IVCON * * *Final Report* * * DATE OF EXAM: Apr 01 2024 11:23AM [facility] [place]/PEL WO IVCON / PROCEDURE REASON: cristino * * * * Physician Interpretation * * * * EXAMINATION: CT ABDOMEN AND PELVIS WITHOUT IV CONTRAST HISTORY: Clinical information: cristino Sent by Oncologist for eval of abnormal labs and admission to hospital. Hx of lung cancer, scheduled for lobectomy on 04/17 TECHNIQUE: Non-IV contrast imaging of the abdomen and pelvis was performed using standard technique, scanning from just above the dome of the diaphragm to the symphysis pubis. Unenhanced imaging is limited for the evaluation of some intra-abdominal and pelvic pathology. MQ: CTAPWO_3 Contrast: IV: None : ml of CT Radiation dose: Integrated Dose-length product (DLP) for this visit = 273 mGy*cm. CT Dose Reduction Employed: Iterative recon and mAs-kVp adjusted using patient size-age COMPARISON: 02/12/2024 CT abdomen pelvis with IV contrast. RESULT: Abdomen / Pelvis: Liver: Lobulated presumably cirrhotic contour. No focal lesion. Biliary: Spleen: No splenomegaly. Pancreas: Unremarkable. Adrenals: No mass. Kidneys: No calculus, hydronephrosis or finding to suggest a cyst or mass in the unenhanced kidney. GI Tract: No bowel dilation. Lymph Nodes: No lymphadenopathy. Mesentery/peritoneum: No ascites. Retroperitoneum: No mass. Vasculature: No aneurysm Pelvis: 7.8 x 5 cm mid to left posterior pelvic cystic area is probably adnexal and is unchanged. Bones/Soft Tissues: No acute abnormality. Lower thorax: No acute findings Localizer images: Nonspecific IMPRESSION: No hydronephrosis or hydroureter. Pelvic cystic mass can be further evaluated by ultrasound. Suspected cirrhosis. Acute Care Nurse: BAYLEE Transcribe Date/Time: Apr 01 2024 11:37A Dictated by : NISHA MORA MD This examination was interpreted and the report reviewed and electronically signed by: NISHA MORA MD on Apr 01 2024 11:52AM EST [id number] Normal [facility] Calcium.ionized [Moles/Vol]o n 04-01-2024 Calcium.ionized (Bld) [Mass/Vol] 1.42 mmol/L High 1.08-1.30 [facility] Comment on above: Order Comment: Medina sales Type: BLOOD SPECIMEN Order[facility] Facility[facility] Address: [address] [place] [address] Performed By: #### 2 731-8, 2284-8, 4542-7, 2132-9, 3024-7 #### [facility] CLIA [id number] [address] [place] [address] [place] Calcium.ionized adjusted to pH 7.4 (Bld) [Moles/Vol] 1.41 mmol/L High 1.08-1.30 [facility] Comment on above: Order Comment: [employer] sales Type: BLOOD SPECIMEN Ordering Facility: [facility] Address: [address] [place] [address] Performed By: #### 2 731-8, 2284-8, 4542-7, 2132-9, 3024-7 #### [facility] CLIA [id number] [address] [place] [address] [place] Calcium.ionized (Bld) [Mass/Vol] 1.39 mmol/L High 1.08-1.30 [facility] Comment on above: Order Comment: Speci men Type: BLOOD SPECIMENOrdering Facility: [facility] Address: [address] [place] [address] Performed By: #### 1 995-0 ####[facility] [id number] [place] [address] [place] Calcium.ionized adjusted to pH 7.4 (Bld) [Moles/Vol] 1.39 mmol/L High 1.08-1.30 [facility] Comment on above: Order Comment: Speci men Type: BLOOD SPECIMENOrdering Facility: [facility] Address: [address] [place] [address] Performed By: #### 1 995-0 ####[facility] [id number] [place] [address] [place] Comprehensive metabolic 2000 panelon 04-01-2024 Albumin [Mass/Vol] 4.7 g/dL Normal 3.9-4.9 [facility] Comment on above: Order Comment: Speci men Type: BLOOD SPECIMEN Ordering Facility: [facility] Address: [address] [place] [address] Performed By: #### 2 731-8, 2284-8, 4542-7, 213-9, 302-7 #### [facility] CLIA [id number] [address] [place] [address] [place] ALP [Catalytic activity/Vol] 117 U/L Normal 34-123 [facility] Comment on above: Order Comment: Speci men Type: BLOOD SPECIMEN Ordering Facility: [facility] Address: [address] [place] [address] Performed By: #### 2 731-8, 2284-8, 4542-7, 213-9, 302-7 #### [facility] CLIA [id number] [address] [place] [address] [place] ALT [Catalytic activity/Vol] 76 U/L High 7-38 [facility] Comment on above: Order Comment: Speci men Type: BLOOD SPECIMEN Ordering Facility: [facility] Address: [address] [place] [address] Performed By: #### 2 731-8, 2284-8, 4542-7, 2131-9, 7 #### [facility] CLIA [id number] [address] [place] [address] [place] Anion gap [Moles/Vol] 12 mmol/L Normal 8-15 [facility] Comment on above: Order Comment: Speci men Type: BLOOD SPECIMEN Ordering Facility: [facility] Address: [address] [place] [address] Performed By: #### 2 731-8, 2284-8, 4542-7, 2131-9, 3023-08 #### [facility] CLIA [id number] [address] [place] [address] [place] AST [Catalytic activity/Vol] 66 U/L High 13-35 [facility] Comment on above: Order Comment: Speci men Type: BLOOD SPECIMEN Ordering Facility: [facility] Address: [address] [place] [address] Performed By: #### 2 731-8, 2284-8, 4542-7, 213-9, 7 #### [facility] CLIA [id number] [address] [place] [address] [place] Bilirubin [Mass/Vol] 0.4 mg/dL Normal 0.2-1.3 [facility] Comment on above: Order Comment: Speci men Type: BLOOD SPECIMEN Ordering Facility: [facility] Address: [address] [place] [id number] Performed By: #### 2 731-8, 2284-8, 4542-7, 9, 3023-08 #### [facility] CLIA [id number] [address] [place] [address] [place] Calcium [Mass/Vol] 12.5 mg/dL High 8.5-10.2 [facility] Comment on above: Order Comment: Speci men Type: BLOOD SPECIMEN Ordering Facility: [facility] Address: [address] [place], [place] [address] Performed By: #### 2 731-8, 2284-8, 4542-7, 9, 3023-08 #### [facility] CLIA [id number] [address] [place] [address] [place] Chloride [Moles/Vol] 98 mmol/L Normal 98-107 [facility] Comment on above: Order Comment: Speci men Type: BLOOD SPECIMEN Ordering Facility: [facility] Address: [address] [place], [place] [address] Performed By: #### 2 731-8, 2284-8, 454-7, 2131-10, 3023-08 #### [facility] CLIA [id number] [address] [place] [address] [place] CO2 [Moles/Vol] 27 mmol/L Normal 22-30 [facility] Comment on above: Order Comment: Speci men Type: BLOOD SPECIMEN Ordering Facility: [facility] Address: [address] [place], [place] [address] Performed By: #### 2 731-8, 2284-8, 4542-7, 9, 3023-08 #### [facility] CLIA [id number] [address] [place], [place] [address] [place] Creatinine [Mass/Vol] 1.59 mg/dL High 0.58-0.96 [facility] Comment on above: Order Comment: Speci men Type: BLOOD SPECIMEN Ordering Facility: [facility] Address: [facility] [place] [address] Performed By: #### 2 731-8, 2284-8, 4542-7, 2132-9, 3024-7 #### [facility] CLIA [id number] [address] [place] [address] [place] Creatinine and Glomerular filtration rate.predicted panel (S/P/Bld) 37 mL/min/1.73m??? 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 This equation utilizes serum creatinine, sex, and age as parameters. The creatinine assay has traceable calibration to isotope dilution-mass spectrometry. Refer to KDIGO guidelines for clinical interpretation. In patients with unstable renal function, e.g. those with acute kidney injury, the eGFR may not accurately reflect actual GFR. Performed By: #### 2 731-8, 2284-8, 4542-7, 2132-9, 3024-7 #### [facility] CLIA [id number] [address] [place], [place] [address] [place] Glucose [Mass/Vol] 93 mg/dL Normal 74-99 [facility] Comment on above: Order Comment: [employer] sales Type: BLOOD SPECIMEN Ordering Facility: [facility] Address: [address] [place] [address] Result Comment: The [place] [employer] (ADA) provides guidance for cutoff values for fasting glucose and random glucose. The ADA defines fasting as no caloric intake for at least 8 hours. Fasting plasma glucose results between 100 to 125 mg/dL indicate increased risk for diabetes (prediabetes). Fasting plasma glucose results greater than or equal to 126 mg/dL meet the criteria for diagnosis of diabetes. In the absence of unequivocal hyperglycemia, results should be confirmed by repeat testing. In a patient with classic symptoms of hyperglycemia or hyperglycemic crisis, random plasma glucose results greater than or equal to 200 mg/dL meet the criteria for diagnosis of diabetes. Reference: Standards of Medical Care in Diabetes 2016, [place] [employer]. Diabetes Care. 2016.39(Suppl 1). Performed By: #### 2 731-8, 2284-8, 4541-7, 2131-10, 3023-08 #### [facility] CLIA [id number] [address] [address] [place] Potassium [Moles/Vol] 4.0 mmol/L Normal 3.7-5.1 [facility] Comment on above: Order Comment: Speci men Type: BLOOD SPECIMEN Ordering Facility: [facility] Address: [address] [place], [place] [address] Performed By: #### 2 731-8, 2284-8, 4541-7, 2131-10, 3023-08 #### [facility] CLIA [id number] [address] [place] [address] [place] Protein [Mass/Vol] 8.5 g/dL High 6.3-8.0 [facility] Comment on above: Order Comment: Speci men Type: BLOOD SPECIMEN Ordering Facility: [facility] Address: [address] [place] [address] Performed By: #### 2 731-8, 2284-8, 7, 2131-10, 3023-08 #### [facility] CLIA [id number] [address] [place] [address] [place] Sodium [Moles/Vol] 137 mmol/L Normal 136-144 [facility] Comment on above: Order Comment: Speci men Type: BLOOD SPECIMEN Ordering Facility: [facility] Address: [address] [place], [place] [id number] Performed By: #### 2 731-8, 2284-8, 7, 2131-10, 3023-08 #### [facility] CLIA [id number] [address] [place] [address] [place] Urea nitrogen [Mass/Vol] 19 mg/dL Normal 7-21 [facility] Comment on above: Order Comment: Speci men Type: BLOOD SPECIMEN Ordering Facility: [facility] Address: [address] [place] [address] Performed By: #### 2 731-8, 2284-8, 4542-7, 2132-9, 3024-7 #### [facility] CLIA [id number] [address] [place] [address] [facility] ECG COMPLETEon 04-01-2024 ECG COMPLETE Ventricular Rate : 6 7 BPM Atrial Rate : 67 BPM P-R Interval : 164 ms QRS Duration : 140 ms Q-T Interval : 416 ms QTC Calculation(Bazett) : 439 ms Calculated P [place] : 45 degrees Calculated R [place] : -41 degrees Calculated T [place] : -1 degrees NORMAL SINUS RHYTHM LEFT AXIS DEVIATION RIGHT BUNDLE BRANCH BLOCK INFERIOR INFARCT , AGE UNDETERMINED ABNORMAL ECG NO PREVIOUS ECGS AVAILABLE Confirmed by AD ROMANO MD ([id number]) on 04/02/2024 4:18:43 PM NAME : VICKEY SCHWARTZ PID : [id number] : 1960 Gender : Female Race : ORD : [id number] Procedure Date : Apr 01 2024 21:23:28 Edit Date : Apr 02 2024 16:18:45 Diagnosis: NORMAL SINUS RHYTHM LEFT AXIS DEVIATION RIGHT BUNDLE BRANCH BLOCK INFERIOR INFARCT , AGE UNDETERMINED ABNORMAL ECG NO PREVIOUS ECGS AVAILABLE Confirmed by AD ROMANO MD ([id number]) on 04/02/2024 4:18:43 PM Test Reason : Arrhythmia Location : 5 : 3S 0319 Overread By : AD ROMANO MD Edited By : AD ROMANO MD Referred By : , Acquired by : [id number], [facility] ED NOTEon 04-01-2024 ED NOTE HNO ID: [id number] Author: MAYRA SOLANO RN Service: Nursing Author Type: Registered Nurse Type: ED Notes Filed: 04/01/2024 18:10 Note Text: 3 South Charge Nurse Camron aware report is in. [facility] ED NOTE HNO ID: [id number] Author: MAYRA SOLANO RN Service: Nursing Author Type: Registered Nurse Type: ED Notes Filed: 04/01/2024 16:16 Note Text: Pt stable and ambulatory to restroom with no assistance. Steady gait. Normal [facility] ED PROV NOTEon 04-01-2024 ED PROV NOTE HNO ID: [id number] Author: KIM CARLIN MD Service: ? Author Type: Physician Type: ED Provider Notes Filed: 04/01/2024 22:29 Note Text: ED Provider Note Patient Name: Vickey Schwartz : 1960 SERVICE DATE: 04/01/24 History Patient presents with: Sent By Md: Sent by Oncologist for eval of abnormal labs and admission to hospital. Hx of lung cancer, scheduled for lobectomy on 04/17 HPI-patient is a 63-year-old female with a medical history of right-sided lung cancer. She was sent to the emergency department today for admission because of elevated renal functions. Patient states that her chemotherapy which her last dose was about a month ago has caused kidney injury. She was started on steroids for this. She is tapered down currently. She was on her way to her appointment this morning when she was advised to come to the ER due to elevated and abnormal blood work. She denies any complaints of unusual pain, injury or illness. PAST MEDICAL HISTORY Diagnosis Date Hemorrhage of rectum and anus HYPERLIPIDEMIA MIXED 07/10/2005 Lung nodule 06/13/2016 June 25, 2017 subcentimeter lung nodules and interstitial lung disease also stable from 2017: check CT in 1 year. Primary biliary cholangitis (HCC) Snoring Systemic lupus erythematosus (HCC) PAST SURGICAL HISTORY Procedure Laterality Date BRONCHOSCOPY 07/31/2023 COLONOSCOPY FLX DX W/COLLJ SPEC WHEN PFRMD 06/29/2016 HAD VASOVAGAL RESPONSE DURING PROCEDURE SYST BP 60'S HR 40'S-GIVEN ATROPINE CORRJ HLX VLGS BNCTY SESMDC DSTL METAR OSTEOT 1985 DIAGNOSTIC ARTHROSCOPY SHOULDER +- SYNOVIAL BX Left 04/03/2018 Left shoulder arthroscopic subacromial decompression, rotator cuff repair, and biceps tenotomy EGD 12/25/2022 repeat 2 years ESOPHAGOGASTRODUODENOSCOPY TRANSORAL DIAGNOSTIC 11/11/2018 EGD ESOPHAGOGASTRODUODENOSCOPY TRANSORAL DIAGNOSTIC 11/22/2020 repeat in 2 years FOOT SURGERY HX 1986 HYSTEROSCOPY 06/21/2017 [facility] LUNG BIOPSY HX 08/24/2023 SIGMOIDOSCOPY ?2000 SKIN BIOPSY HX TONSILLECTOMY HX FAMILY HISTORY Problem Relation Age of Onset Diabetes Mother Hypertension Mother Stroke Mother other (? SFTP) Mother Heart Father age 60's other (PBC) Father None Brother Obstructive Sleep Apnea Brother Colon Cancer Paternal Grandmother Colon Cancer Paternal Grandfather Social History Tobacco Use Smoking status: Former Current packs/day: 0.00 Average packs/day: 0.2 packs/day for 30.0 years (4.5 ttl pk-yrs) Types: Cigarettes Start date: 1985 Quit date: 2016 Years since quittin.1 Smokeless tobacco: Never Tobacco comments: Pt smoked one pack a week x 30 years, quit 2016 Vaping Use Vaping status: Never Used Substance and Sexual Activity Alcohol use: No Drug use: No Sexual activity: Never ALLERGIES Allergen Reactions Albuterol Other: See Comments kyra Morrison Adhesive Tape (Sammi* Itching Itching and redness Review of Systems Constitutional: Negative for activity change, chills, fatigue and fever. HENT: Negative for congestion, mouth sores, rhinorrhea, sore throat and trouble swallowing. Eyes: Negative for photophobia and visual disturbance. Respiratory: Negative for cough and shortness of breath. Cardiovascular: Negative for chest pain and palpitations. Gastrointestinal: Negative for abdominal pain, nausea and vomiting. Endocrine: Negative for polyuria. Genitourinary: Negative for dysuria. Musculoskeletal: Negative for arthralgias. Skin: Negative for color change. Allergic/Immunologic: Negative for immunocompromised state. Neurological: Negative for dizziness. Hematological: Negative for adenopathy. Psychiatric/Behavioral: Negative for agitation. All other systems reviewed and are negative. Physical Exam Vitals [04/01/24 1055] BP Pulse Temp Temp src Resp SpO2 Weight Height 135/65 75 36.7 ?C (98.1 ?F) Oral 16 98 % 88.5 kg (195 lb) -- Physical Exam Vitals and nursing note reviewed. Constitutional: Appearance: Normal appearance. She is normal weight. HENT: Head: Normocephalic and atraumatic. Nose: Nose normal. Mouth/Throat: Mouth: Mucous membranes are moist. Pharynx: Oropharynx is clear. Eyes: Extraocular Movements: Extraocular movements intact. Conjunctiva/sclera: Conjunctivae normal. Pupils: Pupils are equal, round, and reactive to light. Cardiovascular: Rate and Rhythm: Normal rate and regular rhythm. Pulses: Normal pulses. Heart sounds: Normal heart sounds. Pulmonary: Comments: Sounds diminished on the right Chest: Chest wall: No tenderness. Abdominal: General: Abdomen is flat. Bowel sounds are normal. Palpations: Abdomen is soft. Musculoskeletal: General: Normal range of motion. Cervical back: Normal range of motion. Skin: General: Skin is warm and dry. Neurological: General: No focal deficit present. Mental Status: She is alert and oriented to person, place, and time. Mental s (more content not included)... Normal [facility] ED Triage Noteon 04-01-2024 ED Triage Note HNO ID: [id number] Author: MARIS MCKINNEY DO Service: Emergency Medicine Author Type: Physician Type: ED Triage Notes Filed: 04/01/2024 10:59 Note Text: ED INTAKE NOTE Patient Name: Vickey Schwartz Service Date: 04/01/24 BRIEF HPI: This is a 63 year old female who presents to the ED with: h/o lung cancer Sent by oncology for elevated Cr BRIEF EXAM: BP 135/65 Pulse 75 Temp (Src) 98.1 (Oral) Resp 16 Wt 195 lb (88.5kg) SpO2 98% NAD Awake and Alert Non labored breathing INITIAL WORKUP AND DECISION MAKING: Orders Placed This Encounter CT ABD/PEL WO IVCON MAGNESIUM BLD COMP METABOLIC PANEL (BMP+LFT) CBC + DIFF Urinalysis w Microscopic, reflex Culture Provider examination performed via virtual platform with assistance from bedside clinician. SIGNATURE: Maris Mckinney DO Normal [facility] Folate SerPl-mCncon 04-01-19 25 Folate [Mass/Vol] ng/mL Normal >4.7 [facility] Comment on above: Order Comment: Speci men Type: BLOOD SPECIMEN Ordering Facility: [facility] Address: [address] [place], [place] [address] Result Comment: A re sult of > 20 ng/mL is not necessarily indicative of a pathologic or treatable condition: it reflects a limitation of the test methodology. Assay reference range: 4.8 to 24.2 ng/mL. Suitable for detection of folate deficiency. Reference: Folate III (Folate III) [package insert V 1.0 Y[place]ut]. [facility], [place], [place]: December 2014. Performed By: #### 2 731-8, 2284-8, 4542-7, 2132-9, 3024-7 #### [facility] CLIA [id number] [address] [place] [address] [place] HISTORY PHYSICALon HISTORY PHYSICAL HNO ID: [id number] Author: JENN BARBA PA Service: Hospital Medicine Author Type: Physician Naphthalene Still Operator Type: H&P Filed: 04/01/2024 23:04 Note Text: Attestation signed by Gloria Chao MD at 04/03/2024 7:30 AM Attending Note I have personally reviewed PA note. Agree with above Izabella bhagat P. Gloria Chao MD DEPARTMENT OF HOSPITAL MEDICINE HISTORY AND PHYSICAL EXAM SERVICE DATE: 04/01/2024 SERVICE TIME: 5:39 PM Primary Care Physician: Camilo Jonas MD NIGHT AND WEEKEND COVERAGE: TUNAS COVERAGE: Days: [phone], please page attending physician. Nights: [phone], please page [place] [facility] Night coverage pager [phone]. Subjective CHIEF COMPLAINT: Lab abnormalities HPI: This is a 63 year old female w/ PMHx of non-small cell lung cancer or right lung, primary biliary cirrhosis, lupus, RODRIGO, interstitial lung disease, milton's esophagus who presents after being told to come in due to abnormal labs. Patient had outpatient labs done that showed persistent kidney injury as well as worsening hypercalcemia. Patient has been following with a frozen meat cutter at [facility] as there is concern her kidney injury stems from chemotherapy she received for her lung cancer. Patient has been receiving steroids outpatient without improvement. Some of her chemo medications have been withheld due to her renal function. She otherwise denies any symptoms other than stating she feels more tired than normal. States she is supposed to stop taking plaquenil after 04/02 if she is still supposed to have her upcoming surgery. Denies any fever, chills, chest pain, SOB, ab pain, N/V/D, dysuria, hematochezia, hematuria, numbness, tingling, confusion. Alert and oriented to person, place, and time. Denies any alcohol or tobacco use. States they want to be FULL CODE after discussion on code status. ED Course - VSS - Labs significant for WBC 11.91, HGB 10.7, Ca 12.5, AST 66, ALT 76, Cr 1.59, Mag 1.5 - CT AP showed: No hydronephrosis or hydroureter. Pelvic cystic mass can be further evaluated by ultrasound. Suspected cirrhosis. - Treated with solumedrol 125mg, 1L NS bolus - ED discussed with Dr. Castle who recommended admission - Admitted for CRISTINO, hypercalcemia PAST MEDICAL HISTORY Diagnosis Date Hemorrhage of rectum and anus HYPERLIPIDEMIA MIXED 07/10/2005 Lung nodule 06/13/2016 June 25, 2017 subcentimeter lung nodules and interstitial lung disease also stable from 2017: check CT in 1 year. Primary biliary cholangitis (HCC) Snoring Systemic lupus erythematosus (HCC) PAST SURGICAL HISTORY Procedure Laterality Date BRONCHOSCOPY 07/31/2023 COLONOSCOPY FLX DX W/COLLJ SPEC WHEN PFRMD 06/29/2016 HAD VASOVAGAL RESPONSE DURING PROCEDURE SYST BP 60'S HR 40'S-GIVEN ATROPINE CORRJ HLX VLGS BNCTY SESMDC DSTL METAR OSTEOT 1986 DIAGNOSTIC ARTHROSCOPY SHOULDER +- SYNOVIAL BX Left 04/03/2018 Left shoulder arthroscopic subacromial decompression, rotator cuff repair, and biceps tenotomy EGD 12/25/2022 repeat 2 years ESOPHAGOGASTRODUODENOSCOPY TRANSORAL DIAGNOSTIC 11/11/2018 EGD ESOPHAGOGASTRODUODENOSCOPY TRANSORAL DIAGNOSTIC 11/22/2020 repeat in 2 years FOOT SURGERY HX 1986 HYSTEROSCOPY 06/21/2017 [facility] LUNG BIOPSY HX 08/24/2023 SIGMOIDOSCOPY ?1999 SKIN BIOPSY HX TONSILLECTOMY HX FAMILY HISTORY Problem Relation Age of Onset Diabetes Mother Hypertension Mother Stroke Mother other (? SFTP) Mother Heart Father age 60's other (PBC) Father None Brother Obstructive Sleep Apnea Brother Colon Cancer Paternal Grandmother Colon Cancer Paternal Grandfather Social History Tobacco Use Smoking status: Former Current packs/day: 0.00 Average packs/day: 0.2 packs/day for 30.0 years (4.5 ttl pk-yrs) Types: Cigarettes Start date: 1985 Quit date: 2016 Years since quittin.1 Smokeless tobacco: Never Tobacco comments: Pt smoked one pack a week x 30 years, quit 2016 Vaping Use Vaping status: Never Used Substance Use Topics Alcohol use: No Drug use: No PRIOR TO ADMISSION MEDICATIONS: Prior to Admission Medications Prescriptions Last Dose Informant Patient Reported? Taking? Calcium-Cholecalciferol, D3, 500 mg-10 mcg (400 unit) per tablet Yes No Sig: Take 1 tablet by mouth once daily. Clobetasol Propionate (TEMOVATE) 0.05 % external solution No No Sig: Apply to affected areas on the scalp twice a day. Dispense 100ml as 30 day supply. albuterol HFA (PROVENTIL HFA, VENTOLIN HFA) 90 mcg/actuation inhaler No No Sig: Inhale 2 Puffs as instructed every 4 hours as needed. Patient not taking: Reported on 03/18/2024 biotin 5,000 mcg ODT Yes No Sig: Take 1 tablet by mouth once daily. cholecalciferol (VITAMIN D-3) 50 mcg (2,000 unit) tablet Yes No Sig: Take 4,000 Units by mouth once da (more content not included)... Normal [facility] Haptoglob SerPl-mCncon 04-01 Haptoglobin [Mass/Vol] 153 mg/dL Normal 31-238 [facility] Comment on above: Order Comment: Speci men Type: BLOOD SPECIMEN Ordering Facility: [facility] Address: [address] [place] [address] Performed By: #### 2 731-8, 2284-8, 4542-7, 2132-9, 3024-7 #### [facility] CLIA [id number] [address] [place], [place] [address] [place] Magnesium SerPl-mCncon 04-01 Magnesium [Mass/Vol] 1.5 mg/dL Low 1.7-2.3 [facility] Comment on above: Order Comment: Speci men Type: BLOOD SPECIMEN Ordering Facility: [facility] Address: [address] [place] [address] Performed By: #### 2 731-8, 2284-8, 4542-7, 2131-9, 7 #### [facility] CLIA [id number] [address] [place] [address] [place] PTH RELATED PEPTIDEon 2024 PTH RELATED PEPTIDE 3.0 pmol/L Normal 0.0-3.4 [facility] Comment on above: Order Comment: Medina sales Type: BLOOD SPECIMEN Ordering Facility: [facility] Address: [address] [place] [address] Result Comment: INTE RPRETIVE INFORMATION: Parathyroid Hormone-Related Peptide This test was developed and its performance characteristics determined by [employer]. It has not been cleared or approved by the [place] Food and Drug Administration. This test was performed in a CLIA certified laboratory and is intended for clinical purposes. Performed By: [employer] [facility] [address] [place], [place] [id number] Qa Manager: Collin Barnhart MD, PhD CLIA Number: [id number] Performed By: #### 2 731-8, 2284-8, 4542-7, 2131-9, 3023-7 #### [facility] CLIA [id number] [address] [place], [place] [address] [place] PTH RELATED PEPTIDE 3.3 pmol/L Normal 0.0-3.4 [facility] Comment on above: Order Comment: Speci men Type: BLOOD SPECIMENOrdering Facility: [facility] Address: [address] [place] [address] Result Comment: INTE RPRETIVE INFORMATION: Parathyroid Hormone-Related PeptideThis test was developed and its performance characteristicsdetermined by [employer]. It has not been cleared orapproved by the [place] Food and Drug Administration. This test wasperformed in a CLIA certified laboratory and is intended forclinical purposes.Performed By: [facility] [address] [place], [place] [address]So[employer] Director: Collin Barnhart MD, PhDCLIA Number: [id number] Performed By: #### P THPEP ####[facility] [id number] [place] [address] PTH-Intact SerPl-ncon 03-09 Parathyrin.intact [Mass/Vol] 57 pg/mL Normal 15-65 [facility] Comment on above: Order Comment: Speci men Type: BLOOD SPECIMEN Ordering Facility: [facility] Address: [address] [place] [address] Performed By: #### 2 731-8, 2284-8, 4542-7, 2132-9, 3024-7 #### [facility] CLIA [id number] [address] [place] [address] [place] Renal function 2000 panelon 04-01-2024 Albumin [Mass/Vol] 4.4 g/dL Normal 3.9-4.9 [facility] Comment on above: Order Comment: Speci men Type: BLOOD SPECIMENOrdering Facility: [facility] Address: [address] [place] [address] Performed By: #### 2 4362-6 ####[facility] [id number] [place] [address] [place] Anion gap [Moles/Vol] 14 mmol/L Normal 8-15 [facility] Comment on above: Order Comment: Speci men Type: BLOOD SPECIMENOrdering Facility: [facility] Address: [address] [place] [address] Performed By: #### 2 4362-6 ####[facility] [id number] [place] [address] [place] Calcium [Mass/Vol] 11.5 mg/dL High 8.5-10.2 [facility] Comment on above: Order Comment: Speci men Type: BLOOD SPECIMENOrdering Facility: [facility] Address: [address] [place] [address] Performed By: #### 2 4362-6 ####[facility] DAVISWNCLIA [id number] [place] [address] [place] Chloride [Moles/Vol] 96 mmol/L Low 98-107 [facility] Comment on above: Order Comment: Speci men Type: BLOOD SPECIMENOrdering Facility: [facility] Address: [address] [place] [address] Performed By: #### 2 4362-6 ####[facility] [id number] [place] [address] [place] CO2 [Moles/Vol] 26 mmol/L Normal 22-30 [facility] Comment on above: Order Comment: Speci men Type: BLOOD SPECIMENOrdering Facility: [facility] Address: [address] [place] [address] Performed By: #### 2 4362-6 ####[facility] [id number] [place] [address] [place] Creatinine [Mass/Vol] 1.49 mg/dL High 0.58-0.96 [facility] Comment on above: Order Comment: Speci men Type: BLOOD SPECIMENOrdering Facility: [facility] Address: [address] [place] [address] Performed By: #### 2 4362-6 ####[facility]CL[facility] [id number] [place] [address] [place] Creatinine and Glomerular filtration rate.predicted panel (S/P/Bld) 40 mL/min/1.73m??? Low >=60 [facility] Comment on above: Order Comment: Speci men Type: BLOOD SPECIMENOrdering Facility: [facility] Address: [address] [place] [address] Result Comment: Ann mated Glomerular Filtration Rate (eGFR) is calculated using the 2020 CKD-EPI creatinine equation. This equation utilizes serum creatinine, sex, and age as parameters. The creatinine assay has traceable calibration to isotope dilution-mass spectrometry. Refer to KDIGO guidelines for clinical interpretation. In patients with unstable renal function, e.g. those with acute kidney injury, the eGFR may not accurately reflect actual GFR. Performed By: #### 2 4362-6 ####[facility] [id number] [place] [address] [place] Glucose [Mass/Vol] 106 mg/dL High 74-99 [facility] Comment on above: Order Comment: Medina sales Type: BLOOD SPECIMENOrdering Facility: [facility] Address: [address] [place] [address] Result Comment: The [place] Diabetes Association (ADA) provides guidance for cutoff values for fasting glucose and random glucose. The ADA defines fasting as no caloric intake for at least 8 hours. Fasting plasma glucose results between 100 to 125 mg/dL indicate increased risk for diabetes (prediabetes).Fasting plasma glucose results greater than or equal to 126 mg/dL meet the criteria for diagnosis of diabetes. In the absence of unequivocal hyperglycemia, results should be confirmed by repeat testing. In a patient with classic symptoms of hyperglycemia or hyperglycemic crisis, random plasma glucose results greater than or equal to 200 mg/dL meet the criteria for diagnosis of diabetes.Reference: Standards of Medical Care in Diabetes 2016, [place] Diabetes Association. Diabetes Care. 2016.39(Suppl 1). Performed By: #### 2 4362-6 ####[facility]ITALNCA [id number] [place] [address] [place] Phosphate [Mass/Vol] 2.8 mg/dL Normal 2.7-4.8 [facility] Comment on above: Order Comment: Medina sales Type: BLOOD SPECIMENOrdering Facility: [facility] Address: [address] [place] [address] Performed By: #### 2 4362-6 ####[facility] [id number] [place] [address] [place] Potassium [Moles/Vol] 3.3 mmol/L Low 3.7-5.1 [facility] Comment on above: Order Comment: Speci men Type: BLOOD SPECIMENOrdering Facility: [facility] Address: [address] [place] [address] Performed By: #### 2 4362-6 ####[facility] [id number] [place] [address] [place] Sodium [Moles/Vol] 136 mmol/L Normal 136-144 [facility] Comment on above: Order Comment: Speci men Type: BLOOD SPECIMENOrdering Facility: [facility] Address: [address] [place] [address] Performed By: #### 2 4362-6 ####[facility] [id number] [place] [address] [place] Urea nitrogen [Mass/Vol] 21 mg/dL Normal 7-21 [facility] Comment on above: Order Comment: Speci men Type: BLOOD SPECIMENOrdering Facility: [facility] Address: [address] [place] [address] Performed By: #### 2 4362-6 ####[facility] [id number] [place] [address] [place] T4 Free [facility] 025 Free T4 [Mass/Vol] ng/dL Low 0.9-1.7 [facility] Comment on above: Order Comment: Speci men Type: BLOOD SPECIMEN Ordering Facility: [facility] Address: [address] [place] [address] Result Comment: Resu lt rechecked. Performed By: #### 2 731-8, 2284-8, 4542-7, 2132-9, 3024-7 #### [facility] CLIA [id number] [address] [place], [place] [address] [place] Urinalysis complete panel (U )on 04-01-2024 Bilirubin Ql (U) Negative Normal Negative [facility] Comment on above: Order Comment: Speci men Type: BLOOD SPECIMEN Ordering Facility: [facility] Address: [address] [place] [address] Performed By: #### 2 731-8, 2284-8, 4542-7, 2131-9, 3023-7 #### [facility] CLIA [id number] [address] [place] [address] [place] Clarity (Unsp spec) Clear Normal Clear [facility] Comment on above: Order Comment: Speci men Type: BLOOD SPECIMEN Ordering Facility: [facility] Address: [address] [place] [address] Performed By: #### 2 731-8, 2284-8, 4542-7, 9, 3023-08 #### [facility] CLIA [id number] [address] [place] [address] [place] Color (U) Yellow Normal Yellow [facility] Comment on above: Order Comment: Speci men Type: BLOOD SPECIMEN Ordering Facility: [facility] Address: [address] [place] [address] Performed By: #### 2 731-8, 2284-8, 4542-7, 2131-9, 3023-08 #### [facility] CLIA [id number] [address] [place], [place] [address] [place] Glucose Test strip (U) [Mass/Vol] Negative Normal Negative [facility] Comment on above: Order Comment: Speci men Type: BLOOD SPECIMEN Ordering Facility: [facility] Address: [address] [place] [address] Performed By: #### 2 731-8, 2284-8, 4542-7, 2131-9, 302-7 #### [facility] CLIA [id number] [place] Hemoglobin Ql (U) Negative Normal Negative [facility] Comment on above: Order Comment: Speci men Type: BLOOD SPECIMEN Ordering Facility: [facility] Address: [address] [place] [address] Performed By: #### 2 731-8, 2284-8, 4542-7, 9, 3023-08 #### [facility] CLIA [id number] [address] [place] [address] [place] Ketones Ql (U) Negative Normal Negative [facility] Comment on above: Order Comment: Speci men Type: BLOOD SPECIMEN Ordering Facility: [facility] Address: [address] [place] [address] Performed By: #### 2 731-8, 2284-8, 4542-7, 9, 3023-08 #### [facility] CLIA [id number] [address] [place] [address] [place] [facility] Leukocyte esterase Test strip Ql (U) Negative Normal Negative [facility] Comment on above: Order Comment: Speci men Type: BLOOD SPECIMEN Ordering Facility: [facility] Address: [address] [place] [address] Performed By: #### 2 731-8, 2284-8, 454-7, 9, 3023-08 #### [facility] CLIA [id number] [address] [place] [address] [place] Nitrite Ql (U) Negative Normal Negative [facility] Comment on above: Order Comment: Speci men Type: BLOOD SPECIMEN Ordering Facility: [facility] Address: [address] [place] [address] Performed By: #### 2 731-8, 2284-8, 4542-7, 9, 3023-08 #### [facility] CLIA [id number] [address] [place] [address] [place] pH (U) 6.0 [pH] Normal 5.0-8.0 [facility] Comment on above: Order Comment: Speci men Type: BLOOD SPECIMEN Ordering Facility: [facility] Address: [address] [place] [address] Performed By: #### 2 731-8, 2284-8, 4542-7, 9, 3023-08 #### [facility] CLIA [id number] [address] [place] [address] [place] Protein (U) [Mass/Vol] Negative Normal Negative [facility] Comment on above: Order Comment: Speci men Type: BLOOD SPECIMEN Ordering Facility: [facility] Address: [address] [place] [address] Performed By: #### 2 731-8, 2284-8, 4542-7, 2131-10, 3023-08 #### [facility] CLIA [id number] [address] [place] [address] [place] RBC LM.HPF (Urine sed) [#/Area] 0-3 /HPF Normal 0-3 /HPF [facility] Comment on above: Order Comment: Speci men Type: BLOOD SPECIMEN Ordering Facility: [facility] Address: [address] [place] [address] Performed By: #### 2 731-8, 2284-8, 454-7, 2131-10, 3023-08 #### [facility] CLIA [id number] [address] [place] [address] [place] Specific gravity (U) [Rel density] <=1.005 Low 1.005-1.030 [facility] Comment on above: Order Comment: Speci men Type: BLOOD SPECIMEN Ordering Facility: [facility] Address: [address] [place] [address] Performed By: #### 2 731-8, 2284-8, 4542-7, 2131-10, 3023-08 #### [facility] CLIA [id number] [address] [place] [address] [place] Urobilinogen Ql (U) 0.2 EU/dL Normal 0.2-1.0 EU/dL [facility] Comment on above: Order Comment: Speci men Type: BLOOD SPECIMEN Ordering Facility: [facility] Address: [address] [place] [address] Performed By: #### 2 731-8, 2284-8, 4542-7, 9, 3023-08 #### [facility] CLIA [id number] [address] [place] [address] [place] WBC LM.HPF (Urine sed) [#/Area] 0-5 /HPF Normal 0-5 /HPF [facility] Comment on above: Order Comment: Speci men Type: BLOOD SPECIMEN Ordering Facility: [facility] Address: [address] [place] [address] Performed By: #### 2 731-8, 2284-8, 2-7, 9, 3023-08 #### [facility] CLIA [id number] [address] [place] [address] [place] Vit B12 [facility] Cobalamin (Vitamin B12) [Mass/Vol] 578 pg/mL Normal 232-1245 [facility] Comment on above: Order Comment: Speci men Type: BLOOD SPECIMEN Ordering Facility: [facility] Address: [address] [place] [address] Performed By: #### 2 731-8, 2284-8, 454-7, 9, 3023-08 #### [facility] CLIA [id number] [address] [place] [address] [place] Niya 03-31-2024 [facility] VICKEY SCHWARTZ ([id number]) 1960 F Date Time Provider Department 03/31/24 PALOMO JOSEPH During your visit today, we recorded the following information about you: Palomo Joseph MD 03/31/2024 5:47 PM Signed The patient has hypercalcemia. Will stop oral calcium and vitamin D and repeat labs. Department of Kidney Medicine Medical Specialties [place] Palomo Rascon MD Staff Nephrology and Hypertension [facility] Pager# [phone] Allergies As of Date: 03/31/2024 Noted Allergy Reaction ALBUTEROL 03/18/2024 14 - Other: See Comments Comments: kyra Morrison ADHESIVE TAPE (ROSINS) 04/15/2018 9 - Itching Comments: Itching and redness Date Reviewed: 03/28/2024 Reviewed by: Martha Orr RN - Fully Assessed Reason for Visit: Results [95] Primary Visit Diagnosis:Hypercalcemia [E83.52] Order(s):CALCIUM, IONIZED [SQICA] Order #: [id number] FUTURE PTH INTACT [SQPTHI] Order #: [id number] FUTURE PTH RELATED PEPTIDE [SQPTHPEP] Order #: [id number] FUTURE VITAMIN D 25 HYDROXY [SQVITD] Order #: [id number] FUTURE VITAMIN D1 25-DIHYDR [KQNWJ281] Order #: [id number] FUTURE CALCITONIN BLOOD [SQCALCIT] Order #: [id number] FUTURE RENAL FUNCTION PANEL [SQRFP] Order #: [id number] FUTURE Prescriptions as of 03/31/2024 - pantoprazole DR (PROTONIX) 40 mg tablet Take 1 tablet by mouth once daily. - predniSONE (DELTASONE) 20 mg tablet Take 2 tablets by mouth once daily. - mupirocin (BACTROBAN) 2 % ointment Apply small amount of Mupirocin with a Q tip in each nostril. Apply in the morning and before bed the day before surgery . Apply third time the morning of surgery - magnesium chloride (SLOW-MAG ORAL) Take 1 tablet by mouth two times a day. - hydrOXYchloroQUINE (PLAQUENIL) 200 mg tablet Take 1 tablet by mouth two times a day. - dohngmcgweAQUWE-poswfi-tmaz yamileth (BMX 1:1:1) 1:1:1 liqd Take 5 mL by mouth every 4 hours as needed. - ursodiol (ACTIGALL) 300 mg capsule Take 1 capsule by mouth three times a day. - prochlorperazine (COMPAZINE) 10 mg tablet Take 1 tablet by mouth every 6 hours as needed. For chemotherapy induced nausea and vomiting. - folic acid 1 mg tablet Take 1 tablet by mouth once daily. - cholecalciferol (VITAMIN D-3) 50 mcg (2,000 unit) tablet Take 4,000 Units by mouth once daily. - albuterol HFA (PROVENTIL HFA, VENTOLIN HFA) 90 mcg/actuation inhaler Inhale 2 Puffs as instructed every 4 hours as needed. - clotrimazole-betamethasone (LOTRISONE) lotion Betamethasone / Clotrimazole Clotrimazole/Betamethasone Dip [Clotrimazole-Betamethasone Lot] 30 ML TP NEEDED PRN For SKIN June 14, 2017 Active 06-14-2017 [facility] ([id number]) - tacrolimus (PROTOPIC) 0.1 % ointment Apply twice daily to affected areas on face - Clobetasol Propionate (TEMOVATE) 0.05 % external solution Apply to affected areas on the scalp twice a day. Dispense 100ml as 30 day supply. - biotin 5,000 mcg ODT Take 1 tablet by mouth once daily. - Calcium-Cholecalciferol, D3, 500 mg-10 mcg (400 unit) per tablet Take 1 tablet by mouth once daily. 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9 [E66.811] 10/04/2023 RODRIGO (obstructive sleep apnea) [G47.33] 11/12/2023 Former light tobacco smoker [Z87.891] 11/12/2023 Non-small cell cancer of right lung (HCC) [C34.*11/21/2023 Hilar adenopathy [R59.0] 11/21/2023 Hypomagnesemia [E83.42] 01/18/2024 CRISTINO (acute kidney injury) (HCC) [N17.9] 03/12/2024 Acute tubulo-interstitial nephritis [N10] 03/12/2024 GERD (gastroesophageal reflux disease) [K21.9] 03/18/2024 Elevated WBC count [D72.829] 03/18/2024 Anemia [D64.9] 03/18/2024 Encounter Status:C (more content not included)... Normal [facility] CBC W Auto Differential pane l (Bld)on 03-28-2024 Basophils (Bld) [#/Vol] 0.04 10*3/uL Normal <0.11 [facility] Comment on above: Order Comment: Speci men Type: BLOOD SPECIMENOrdering Facility: [facility] Address: [address] [place] [address] Performed By: #### 5 7021-8 ####[facility]IA [id number] [place] [address] [place] Basophils/100 WBC (Bld) 0.3 % Normal [facility] Comment on above: Order Comment: Speci men Type: BLOOD SPECIMENOrdering Facility: [facility] Address: [address] [place] [address] Performed By: #### 5 7021-8 ####[facility] ERA [id number] [place] [address] [place] Differential cell count method Nom (Bld) Auto Normal [facility] Comment on above: Order Comment: Speci men Type: BLOOD SPECIMENOrdering Facility: [facility] Address: [address] [place] [address] Performed By: #### 5 7021-8 ####[facility] [id number] [place] [address] [place] Eosinophils (Bld) [#/Vol] 0.05 10*3/uL Normal <0.46 [facility] Comment on above: Order Comment: Speci men Type: BLOOD SPECIMENOrdering Facility: [facility] Address: [address] [place] [address] Performed By: #### 5 7021-8 ####[facility]ALL[facility] [id number] [place] [address] [place] Eosinophils/100 WBC (Bld) 0.4 % Normal [facility] Comment on above: Order Comment: Speci men Type: BLOOD SPECIMENOrdering Facility: [facility] Address: [address] [place] [address] Performed By: #### 5 7021-8 ####[facility]ITALNCLIA [id number] [place] [address] [place] Erythrocyte distribution width (RBC) [Ratio] 16.9 % High 11.5-15.0 [facility] Comment on above: Order Comment: Speci men Type: BLOOD SPECIMENOrdering Facility: [facility] Address: [address] [place] [address] Performed By: #### 5 7021-8 ####[facility]PITALNCUNIV[facility] [id number] [place] [address] [place] Hematocrit (Bld) [Volume fraction] 31.0 % Low 36.0-46.0 [facility] Comment on above: Order Comment: Speci men Type: BLOOD SPECIMENOrdering Facility: [facility] Address: [address] [place] [address] Performed By: #### 5 7021-8 ####[facility]ITALLI [id number] [place] [address] [place] Hemoglobin (Bld) [Mass/Vol] 10.8 g/dL Low 11.5-15.5 [facility] Comment on above: Order Comment: Speci men Type: BLOOD SPECIMENOrdering Facility: [facility] Address: [address] [place] [address] Performed By: #### 5 7021-8 ####[facility]ALLI [id number] [place] [address] [place] Immature granulocytes (Bld) [#/Vol] 0.27 10*3/uL High <0.10 [facility] Comment on above: Order Comment: Speci men Type: BLOOD SPECIMENOrdering Facility: [facility] Address: [address] [place] [address] Performed By: #### 5 7021-8 ####[facility] [id number] [place] [address] [place] Immature granulocytes/100 WBC (Bld) 2.1 % Normal [facility] Comment on above: Order Comment: Speci men Type: BLOOD SPECIMENOrdering Facility: [facility] Address: [address] [place] [address] Performed By: #### 5 7021-8 ####[facility] [id number] [place] [address] [place] Lymphocytes (Bld) [#/Vol] 2.10 10*3/uL Normal 1.00-4.00 [facility] Comment on above: Order Comment: Speci men Type: BLOOD SPECIMENOrdering Facility: [facility] Address: [address] [place] [address] Performed By: #### 5 7021-8 ####[facility]PITALNCUNIV[facility] [id number] [place] [address] [place] Lymphocytes/100 WBC (Bld) 16.7 % Normal [facility] Comment on above: Order Comment: Speci men Type: BLOOD SPECIMENOrdering Facility: [facility] Address: [address] [place] [address] Performed By: #### 5 7021-8 ####[facility] HOSPITALNCLI [id number] [place] [address] [place] MCH (RBC) [Entitic mass] 34.4 pg High 26.0-34.0 [facility] Comment on above: Order Comment: Speci men Type: BLOOD SPECIMENOrdering Facility: [facility] Address: [address] [place] [address] Performed By: #### 5 7021-8 ####[facility] HOSPITALNCLI [id number] [place] [address] [place] MCHC (RBC) [Mass/Vol] 34.8 g/dL Normal 30.5-36.0 [facility] Comment on above: Order Comment: Speci men Type: BLOOD SPECIMENOrdering Facility: [facility] Address: [address] [place] [address] Performed By: #### 5 7021-8 ####[facility] DAVISJordanNCNENITA [id number] [place] [address] [place] MCV (RBC) [Entitic vol] 98.7 fL Normal 80.0-100.0 [facility] Comment on above: Order Comment: Speci men Type: BLOOD SPECIMENOrdering Facility: [facility] Address: [address] [place] [address] Performed By: #### 5 7021-8 ####[facility]ITALNCUN[facility] [id number] [place] [address] [place] Monocytes (Bld) [#/Vol] 0.67 10*3/uL Normal <0.87 [facility] Comment on above: Order Comment: Speci men Type: BLOOD SPECIMENOrdering Facility: [facility] Address: [address] [place] [address] Performed By: #### 5 7021-8 ####[facility] HOSPITALNCLIA [id number] [place] [address] [place] Monocytes/100 WBC (Bld) 5.3 % Normal [facility] Comment on above: Order Comment: Speci men Type: BLOOD SPECIMENOrdering Facility: [facility] Address: [address] [place] [address] Performed By: #### 5 7021-8 ####[facility] H[facility]PITALNCLIA [id number] [place] [address] [place] Neutrophils (Bld) [#/Vol] 9.48 10*3/uL High 1.45-7.50 [facility] Comment on above: Order Comment: Speci men Type: BLOOD SPECIMENOrdering Facility: [facility] Address: [address] [place], [place] [address] Performed By: #### 5 7021-8 ####[facility] HOSPITALWLALILIA [id number] [place] [address] [place] Neutrophils/100 WBC (Bld) 75.2 % Normal [facility] Comment on above: Order Comment: Speci men Type: BLOOD SPECIMENOrdering Facility: [facility] Address: [address] [place] [address] Performed By: #### 5 7021-8 ####[facility]ITALLIA [id number] [place] [address] [place] Nucleated RBC (Bld) [#/Vol] 10*3/uL Normal <0.01 [facility] Comment on above: Order Comment: Speci men Type: BLOOD SPECIMENOrdering Facility: [facility] Address: [address] [place] [address] Performed By: #### 5 7021-8 ####[facility] ERA [id number] [place] [address] [place] Nucleated RBC/100 WBC (Bld) [Ratio] 0.0 /100 WBC Normal [facility] Comment on above: Order Comment: Speci men Type: BLOOD SPECIMENOrdering Facility: [facility] Address: [address] [place] [address] Performed By: #### 5 7021-8 ####[facility] ERA [id number] [place] [address] [place] Platelet mean volume (Bld) [Entitic vol] 9.3 fL Normal 9.0-12.7 [facility] Comment on above: Order Comment: Speci men Type: BLOOD SPECIMENOrdering Facility: [facility] Address: [address] [place] [address] Performed By: #### 5 7021-8 ####[facility]OSPITALLI [id number] [place] [address] [place] Platelets (Bld) [#/Vol] 198 10*3/uL Normal 150-400 [facility] Comment on above: Order Comment: Speci men Type: BLOOD SPECIMENOrdering Facility: [facility] Address: [address] [place] [address] Performed By: #### 5 7021-8 ####[facility] HOSPITALMARIO ALBERTOA [id number] [place] [address] [place] RBC (Bld) [#/Vol] 3.14 10*6/uL Low 3.90-5.20 [facility] Comment on above: Order Comment: Speci men Type: BLOOD SPECIMENOrdering Facility: [facility] Address: [address] [place] [address] Performed By: #### 5 7021-8 ####[facility] HOSPITALNCNENITA [id number] [place] [address] [place] WBC (Bld) [#/Vol] 12.61 10*3/uL High 3.70-11.00 [facility] Comment on above: Order Comment: Speci men Type: BLOOD SPECIMENOrdering Facility: [facility] Address: [address] [place] [address] Performed By: #### 5 7021-8 ####[facility] HOSPITALVIETA [id number] [place] [address] [place] Comprehensive metabolic 2000 panelon 03-28-2024 Albumin [Mass/Vol] 4.6 g/dL Normal 3.9-4.9 [facility] Comment on above: Order Comment: Speci men Type: BLOOD SPECIMENOrdering Facility: [facility] Address: [address] [place] [address] Performed By: #### 1 9123-9, 95970-0 ####[facility] HOSPITALNCLIA [id number] [place] [address] [place] ALP [Catalytic activity/Vol] 116 U/L Normal 34-123 [facility] Comment on above: Order Comment: Speci men Type: BLOOD SPECIMENOrdering Facility: [facility] Address: [address] [place] [address] Performed By: #### 1 9123-9, 14138-4 ####[facility] DAVISWLALILIA [id number] [place] [address] [place] ALT [Catalytic activity/Vol] 62 U/L High 7-38 [facility] Comment on above: Order Comment: Speci men Type: BLOOD SPECIMENOrdering Facility: [facility] Address: [address] [place] [address] Performed By: #### 1 9123-9, 59222-8 ####[facility] HOSPITALNCLIA [id number] [place] [address] [place] Anion gap [Moles/Vol] 13 mmol/L Normal 8-15 [facility] Comment on above: Order Comment: Speci men Type: BLOOD SPECIMENOrdering Facility: [facility] Address: [address] [place] [address] Performed By: #### 1 9123-9, 03990-1 ####[facility] HOSPITALLIA [id number] [place] [address] [place] AST [Catalytic activity/Vol] 45 U/L High 13-35 [facility] Comment on above: Order Comment: Speci men Type: BLOOD SPECIMENOrdering Facility: [facility] Address: [address] [place] [address] Performed By: #### 1 9123-9, 74238-4 ####[facility] HOSPITALNCLIA [id number] [place] [address] [place] Bilirubin [Mass/Vol] 0.4 mg/dL Normal 0.2-1.3 [facility] Comment on above: Order Comment: Speci men Type: BLOOD SPECIMENOrdering Facility: [facility] Address: [address] [place] [address] Performed By: #### 1 9123-9, 41192-4 ####[facility] CANNONMARCIJordanTARIQ [id number] [place] [address] [place] Calcium [Mass/Vol] 11.6 mg/dL High 8.5-10.2 [facility] Comment on above: Order Comment: Speci men Type: BLOOD SPECIMENOrdering Facility: [facility] Address: [address] [place] [address] Performed By: #### 1 9123-9, 59759-4 ####[facility] DAVISCHATA [id number] [place] [address] [place] Chloride [Moles/Vol] 95 mmol/L Low 98-107 [facility] Comment on above: Order Comment: Speci men Type: BLOOD SPECIMENOrdering Facility: [facility] Address: [address] [place] [address] Performed By: #### 1 9123-9, 76694-5 ####[facility]ATIONOSTER DAVISCHATA [id number] [place] [address] [place] CO2 [Moles/Vol] 27 mmol/L Normal 22-30 [facility] Comment on above: Order Comment: Speci men Type: BLOOD SPECIMENOrdering Facility: [facility] Address: [address] [place] [address] Performed By: #### 1 9123-9, 56913-0 ####[facility] WESLEYNORTH COUNTRY HOSPITALNCTHIAGOA [id number] [place] [address] [place] Creatinine [Mass/Vol] 1.59 mg/dL High 0.58-0.96 [facility] Comment on above: Order Comment: Speci men Type: BLOOD SPECIMENOrdering Facility: [facility] Address: [address] [place], [place] [address] Performed By: #### 1 9123-9, 87647-2 ####[facility] [id number] [place] [address] [place] Creatinine and Glomerular filtration rate.predicted panel (S/P/Bld) 37 mL/min/1.73m??? Low >=60 [facility] Comment on above: Order Comment: Med[place] sales Type: BLOOD SPECIMENOrdering Facility: [facility] Address: [address] [place] [address] Result Comment: Ann mated Glomerular Filtration Rate (eGFR) is calculated using the 2020 CKD-EPI creatinine equation. This equation utilizes serum creatinine, sex, and age as parameters. The creatinine assay has traceable calibration to isotope dilution-mass spectrometry. Refer to KDIGO guidelines for clinical interpretation. In patients with unstable renal function, e.g. those with acute kidney injury, the eGFR may not accurately reflect actual GFR. Performed By: #### 1 9123-9, 55279-7 ####[facility] [id number] [place] [address] [place] Glucose [Mass/Vol] 96 mg/dL Normal 74-99 [facility] Comment on above: Order Comment: [place] sales Type: BLOOD SPECIMENOrdering Facility: [facility] Address: [address] [place] [address] Result Comment: The [place] [employer] (ADA) provides guidance for cutoff values for fasting glucose and random glucose. The ADA defines fasting as no caloric intake for at least 8 hours. Fasting plasma glucose results between 100 to 125 mg/dL indicate increased risk for diabetes (prediabetes).Fasting plasma glucose results greater than or equal to 126 mg/dL meet the criteria for diagnosis of diabetes. In the absence of unequivocal hyperglycemia, results should be confirmed by repeat testing. In a patient with classic symptoms of hyperglycemia or hyperglycemic crisis, random plasma glucose results greater than or equal to 200 mg/dL meet the criteria for diagnosis of diabetes.Reference: Standards of Medical Care in Diabetes 2016, [place] [employer]. Diabetes Care. 2016.39(Suppl 1). Performed By: #### 1 9123-9, 72342-2 ####[facility] MILLTOWNCLIA [id number] [place] [address] [place] Potassium [Moles/Vol] 3.6 mmol/L Low 3.7-5.1 [facility] Comment on above: Order Comment: Speci men Type: BLOOD SPECIMENOrdering Facility: [facility] Address: [address] [place] [address] Performed By: #### 1 9123-9, ####[facility] MILLWNCLIA [id number] [place] [address] [place] Protein [Mass/Vol] 8.2 g/dL High 6.3-8.0 [facility] Comment on above: Order Comment: Speci men Type: BLOOD SPECIMENOrdering Facility: [facility] Address: [address] [place] [address] Performed By: #### 1 9123-9, ####[facility] HOSPITALWNCLIA [id number] [place] [address] [place] Sodium [Moles/Vol] 135 mmol/L Low 136-144 [facility] Comment on above: Order Comment: Speci men Type: BLOOD SPECIMENOrdering Facility: [facility] Address: [address] [place] [address] Performed By: #### 1 9123-9, ####[facility] MILLTOWNCLIA [id number] [place] [address] [place] Urea nitrogen [Mass/Vol] 19 mg/dL Normal 7-21 [facility] Comment on above: Order Comment: Speci men Type: BLOOD SPECIMENOrdering Facility: [facility] Address: [address] [place] [address] Performed By: #### 1 9123-9, 62675-9 ####[facility] MILLTOWNCLIA [id number] [place] [address] [place] Magnesium SerPl-mCncon 03-28 Magnesium [Mass/Vol] 1.8 mg/dL Normal 1.7-2.3 [facility] Comment on above: Order Comment: Speci men Type: BLOOD SPECIMENOrdering Facility: [facility] Address: [address] [place] [address] Performed By: #### 1 9123-9, 94275-7 ####[facility] MILLST. VINCENT WILLIAMSPORT HOSPITALLIA [id number] [place] [address] [place] CBC W Auto Differential pane l (Bld)on 03-25-2024 Basophils (Bld) [#/Vol] 0.04 10*3/uL Normal <0.11 [facility] Comment on above: Order Comment: Speci men Type: BLOOD SPECIMENOrdering Facility: [facility] Address: [address] [place] [address] Performed By: #### 5 7021-8 ####[facility] ERA [id number] [place] [address] [place] Basophils/100 WBC (Bld) 0.3 % Normal [facility] Comment on above: Order Comment: Speci men Type: BLOOD SPECIMENOrdering Facility: [facility] Address: [address] [place] [address] Performed By: #### 5 7021-8 ####[facility] HOSPITALLIA [id number] [address] [facility] Differential cell count method Nom (Bld) Auto Normal [facility] Comment on above: Order Comment: Speci men Type: BLOOD SPECIMENOrdering Facility: [facility] Address: [address] [place] [address] Performed By: #### 5 7021-8 ####[facility] HOSPITALLIA [id number] [place] [address] [place] Eosinophils (Bld) [#/Vol] 0.07 10*3/uL Normal <0.46 [facility] Comment on above: Order Comment: Speci men Type: BLOOD SPECIMENOrdering Facility: [facility] Address: [address] [place] [address] Performed By: #### 5 7021-8 ####[facility] HOSPITALNCTHIAGOA [id number] [place] [address] [place] Eosinophils/100 WBC (Bld) 0.6 % Normal [facility] Comment on above: Order Comment: Speci men Type: BLOOD SPECIMENOrdering Facility: [facility] Address: [address] [place] [address] Performed By: #### 5 7021-8 ####[facility] HOSPITALNCUNIVERSITY OF [facility] [id number] [place] [address] [place] Erythrocyte distribution width (RBC) [Ratio] 17.3 % High 11.5-15.0 [facility] Comment on above: Order Comment: Speci men Type: BLOOD SPECIMENOrdering Facility: [facility] Address: [address] [place] [address] Performed By: #### 5 7021-8 ####[facility]ERS[facility] HOSPITALNCLI [id number] [place] [address] [place] Hematocrit (Bld) [Volume fraction] 29.0 % Low 36.0-46.0 [facility] Comment on above: Order Comment: Speci men Type: BLOOD SPECIMENOrdering Facility: [facility] Address: [address] [place] [address] Performed By: #### 5 7021-8 ####[facility] HOSPITALNCLIA [id number] [place] [address] [place] Hemoglobin (Bld) [Mass/Vol] 10.1 g/dL Low 11.5-15.5 [facility] Comment on above: Order Comment: Speci men Type: BLOOD SPECIMENOrdering Facility: [facility] Address: [address] [place] [address] Performed By: #### 5 7021-8 ####[facility] DAVISMARIO ALBERTOA [id number] [place] [address] [place] Immature granulocytes (Bld) [#/Vol] 0.32 10*3/uL High <0.10 [facility] Comment on above: Order Comment: Speci men Type: BLOOD SPECIMENOrdering Facility: [facility] Address: [address] [place] [address] Performed By: #### 5 7021-8 ####[facility] ERA [id number] [place] [address] [place] Immature granulocytes/100 WBC (Bld) 2.7 % Normal [facility] Comment on above: Order Comment: Speci men Type: BLOOD SPECIMENOrdering Facility: [facility] Address: [address] [place] [address] Performed By: #### 5 7021-8 ####[facility] ERA [id number] [place] [address] [place] Lymphocytes (Bld) [#/Vol] 2.82 10*3/uL Normal 1.00-4.00 [facility] Comment on above: Order Comment: Speci men Type: BLOOD SPECIMENOrdering Facility: [facility] Address: [address] [place] [address] Performed By: #### 5 7021-8 ####[facility] HOSPITALLIA [id number] [place] [address] [place] Lymphocytes/100 WBC (Bld) 23.7 % Normal [facility] Comment on above: Order Comment: Speci men Type: BLOOD SPECIMENOrdering Facility: [facility] Address: [address] [place] [address] Performed By: #### 5 7021-8 ####[facility] HOSPITALNCLIA [id number] [place] [address] [place] MCH (RBC) [Entitic mass] 34.0 pg Normal 26.0-34.0 [facility] Comment on above: Order Comment: Speci men Type: BLOOD SPECIMENOrdering Facility: [facility] Address: [address] [place] [address] Performed By: #### 5 7021-8 ####[facility] HOSPITALLALILIA [id number] [place] [address] [place] MCHC (RBC) [Mass/Vol] 34.8 g/dL Normal 30.5-36.0 [facility] Comment on above: Order Comment: Speci men Type: BLOOD SPECIMENOrdering Facility: [facility] Address: [address] [place] [address] Performed By: #### 5 7021-8 ####[facility] [id number] [place] [address] [place] MCV (RBC) [Entitic vol] 97.6 fL Normal 80.0-100.0 [facility] Comment on above: Order Comment: Speci men Type: BLOOD SPECIMENOrdering Facility: [facility] Address: [address] [place] [address] Performed By: #### 5 7021-8 ####[facility] ERA [id number] [place] [address] [place] Monocytes (Bld) [#/Vol] 0.68 10*3/uL Normal <0.87 [facility] Comment on above: Order Comment: Speci men Type: BLOOD SPECIMENOrdering Facility: [facility] Address: [address] [place] [address] Performed By: #### 5 7021-8 ####[facility] HOSPITALNCLI [id number] [place] [address] [place] Monocytes/100 WBC (Bld) 5.7 % Normal [facility] Comment on above: Order Comment: Speci men Type: BLOOD SPECIMENOrdering Facility: [facility] Address: [address] [place] [address] Performed By: #### 5 7021-8 ####[facility] HOSPITALNCLIA [id number] [place] [address] [place] Neutrophils (Bld) [#/Vol] 7.97 10*3/uL High 1.45-7.50 [facility] Comment on above: Order Comment: Speci men Type: BLOOD SPECIMENOrdering Facility: [facility] Address: [address] [place] [address] Performed By: #### 5 7021-8 ####[facility] [id number] [place] [address] [place] Neutrophils/100 WBC (Bld) 67.0 % Normal [facility] Comment on above: Order Comment: Speci men Type: BLOOD SPECIMENOrdering Facility: [facility] Address: [address] [place] [address] Performed By: #### 5 7021-8 ####[facility] ERA [id number] [place] [address] [place] Nucleated RBC (Bld) [#/Vol] 10*3/uL Normal <0.01 [facility] Comment on above: Order Comment: Speci men Type: BLOOD SPECIMENOrdering Facility: [facility] Address: [address] [place] [address] Performed By: #### 5 7021-8 ####[facility] [id number] [place] [address] [place] Nucleated RBC/100 WBC (Bld) [Ratio] 0.0 /100 WBC Normal [facility] Comment on above: Order Comment: Speci men Type: BLOOD SPECIMENOrdering Facility: [facility] Address: [address] [place], [place] [address] Performed By: #### 5 7021-8 ####[facility] ERINN [id number] [place] [address] [place] Platelet mean volume (Bld) [Entitic vol] 9.4 fL Normal 9.0-12.7 [facility] Comment on above: Order Comment: Speci men Type: BLOOD SPECIMENOrdering Facility: [facility] Address: [address] [place] [address] Performed By: #### 5 7021-8 ####[facility] DAVISFARMVILLETARIQ [id number] [place] [address] [place] Platelets (Bld) [#/Vol] 194 10*3/uL Normal 150-400 [facility] Comment on above: Order Comment: Speci men Type: BLOOD SPECIMENOrdering Facility: [facility] Address: [address] [place] [address] Performed By: #### 5 7021-8 ####[facility] HOSPITALNCTHIAGOA [id number] [place] [address] [place] RBC (Bld) [#/Vol] 2.97 10*6/uL Low 3.90-5.20 [facility] Comment on above: Order Comment: Speci men Type: BLOOD SPECIMENOrdering Facility: [facility] Address: [address] [place] [address] Performed By: #### 5 7021-8 ####[facility] HOSPITALNCLIA [id number] [place] [address] [place] WBC (Bld) [#/Vol] 11.90 10*3/uL High 3.70-11.00 [facility] Comment on above: Order Comment: Speci men Type: BLOOD SPECIMENOrdering Facility: [facility] Address: [address] [place] [address] Performed By: #### 5 7021-8 ####[facility] MILLTOWNCLIA [id number] [place] [address] [place] CNPNon 03-25-2024 CNPN Normal [facility] Comprehensive metabolic 2000 panelon 03-25-2024 Albumin [Mass/Vol] 4.4 g/dL Normal 3.9-4.9 [facility] Comment on above: Order Comment: Speci men Type: BLOOD SPECIMENOrdering Facility: [facility] Address: [address] [place] [address] Performed By: #### 2 4323-8, 01408-6 ####[facility] HOSPITALWVIETA [id number] [place] [address] [place] ALP [Catalytic activity/Vol] 114 U/L Normal 34-123 [facility] Comment on above: Order Comment: Speci men Type: BLOOD SPECIMENOrdering Facility: [facility] Address: [address] [place] [address] Performed By: #### 2 4323-8, 74856-4 ####[facility] HOSPITALWLALILIA [id number] [place] [address] [place] ALT [Catalytic activity/Vol] 73 U/L High 7-38 [facility] Comment on above: Order Comment: Speci men Type: BLOOD SPECIMENOrdering Facility: [facility] Address: [address] [place] [address] Performed By: #### 2 4323-8, 24316-5 ####[facility] HOSPITALNCLIA [id number] [place] [address] [place] Anion gap [Moles/Vol] 10 mmol/L Normal 8-15 [facility] Comment on above: Order Comment: Speci men Type: BLOOD SPECIMENOrdering Facility: [facility] Address: [address] [place] [address] Performed By: #### 2 4323-8, ####[facility] MILLTOWNCLIA [id number] [place] [address] [place] AST [Catalytic activity/Vol] 59 U/L High 13-35 [facility] Comment on above: Order Comment: Speci men Type: BLOOD SPECIMENOrdering Facility: [facility] Address: [address] [place] [address] Performed By: #### 2 4323-8, ####[facility] MILLTOWNCLIA [id number] [place] [address] [place] Bilirubin [Mass/Vol] 0.3 mg/dL Normal 0.2-1.3 [facility] Comment on above: Order Comment: Speci men Type: BLOOD SPECIMENOrdering Facility: [facility] Address: [address] [place] [address] Performed By: #### 2 432-8, ####[facility] MILLWNCLIA [id number] [place] [address] [place] Calcium [Mass/Vol] 10.7 mg/dL High 8.5-10.2 [facility] Comment on above: Order Comment: Speci men Type: BLOOD SPECIMENOrdering Facility: [facility] Address: [address] [place] [address] Performed By: #### 2 4323-8, ####[facility] MILLTOWNCLIA [id number] [place] [address] [place] Chloride [Moles/Vol] 97 mmol/L Low 98-107 [facility] Comment on above: Order Comment: Speci men Type: BLOOD SPECIMENOrdering Facility: [facility] Address: [address] [place] [address] Performed By: #### 2 4323-8, ####[facility] MILLTOWNCLIA [id number] [place] [address] [place] CO2 [Moles/Vol] 28 mmol/L Normal 22-30 [facility] Comment on above: Order Comment: [place] sales Type: BLOOD SPECIMENOrdering Facility: [facility] Address: [address] [place] [address] Performed By: #### 2 4323-8, ####[facility] [id number] [place] [address] [place] Creatinine [Mass/Vol] 1.50 mg/dL High 0.58-0.96 [facility] Comment on above: Order Comment: Speci men Type: BLOOD SPECIMENOrdering Facility: [facility] Address: [address] [place] [address] Performed By: #### 2 4323-8, ####[facility] [id number] [place] [address] [place] Creatinine and Glomerular filtration rate.predicted panel (S/P/Bld) 39 mL/min/1.73m??? Low >=60 [facility] Comment on above: Order Comment: [place] sales Type: BLOOD SPECIMENOrdering Facility: [facility] Address: [address] [place] [address] Result Comment: Ann mated Glomerular Filtration Rate (eGFR) is calculated using the 2020 CKD-EPI creatinine equation. This equation utilizes serum creatinine, sex, and age as parameters. The creatinine assay has traceable calibration to isotope dilution-mass spectrometry. Refer to KDIGO guidelines for clinical interpretation. In patients with unstable renal function, e.g. those with acute kidney injury, the eGFR may not accurately reflect actual GFR. Performed By: #### 2 4323-8, ####[facility] HOSPITALNCLIA [id number] [place] [address] [place] Glucose [Mass/Vol] 106 mg/dL High 74-99 [facility] Comment on above: Order Comment: [place] sales Type: BLOOD SPECIMENOrdering Facility: [facility] Address: [address] [place], [place] [address] Result Comment: The [place] Diabetes [employer] (ADA) provides guidance for cutoff values for fasting glucose and random glucose. The ADA defines fasting as no caloric intake for at least 8 hours. Fasting plasma glucose results between 100 to 125 mg/dL indicate increased risk for diabetes (prediabetes).Fasting plasma glucose results greater than or equal to 126 mg/dL meet the criteria for diagnosis of diabetes. In the absence of unequivocal hyperglycemia, results should be confirmed by repeat testing. In a patient with classic symptoms of hyperglycemia or hyperglycemic crisis, random plasma glucose results greater than or equal to 200 mg/dL meet the criteria for diagnosis of diabetes.Reference: Standards of Medical Care in Diabetes 2016, [place] [employer]. Diabetes Care. 2016.39(Suppl 1). Performed By: #### 2 4323-8, 60469-3 ####[facility] HOSPITALTATY [id number] [place] [address] [place] Potassium [Moles/Vol] 3.4 mmol/L Low 3.7-5.1 [facility] Comment on above: Order Comment: [place] sales Type: BLOOD SPECIMENOrdering Facility: [facility] Address: [address] [place], [place] [address] Performed By: #### 2 4323-8, ####[facility] CENTERMARCITARIQ [id number] [place] [address] [place] Protein [Mass/Vol] 7.8 g/dL Normal 6.3-8.0 [facility] Comment on above: Order Comment: Med[place] sales Type: BLOOD SPECIMENOrdering Facility: [facility] Address: [address] [place], [place] [address] Performed By: #### 2 4323-8, ####[facility] HOSPITALTATY [id number] [place] [address] [place] Sodium [Moles/Vol] 135 mmol/L Low 136-144 [facility] Comment on above: Order Comment: Speci men Type: BLOOD SPECIMENOrdering Facility: [facility] Address: [address] [place] [address] Performed By: #### 2 4323-8, ####[facility] MILLTOWNCLIA [id number] [place] [address] [place] Urea nitrogen [Mass/Vol] 21 mg/dL Normal 7-21 [facility] Comment on above: Order Comment: Speci men Type: BLOOD SPECIMENOrdering Facility: [facility] Address: [address] [place] [address] Performed By: #### 2 4323-8, ####[facility] HOSPITALNCLIA [id number] [place] [address] [place] Magnesium SerPl-mCncon 03-25 Magnesium [Mass/Vol] 1.5 mg/dL Low 1.7-2.3 [facility] Comment on above: Order Comment: Speci men Type: BLOOD SPECIMENOrdering Facility: [facility] Address: [address] [place] [address] Performed By: #### 2 4323-8, ####[facility] HOSPITALLIA [id number] [place] [address] [place] CNOVSPon 03-21-2024 CNOVSP Normal [facility] CNPNon 03-21-2024 CNPN Normal [facility] Basic metabolic 2000 panelon 03-20-2024 Anion gap [Moles/Vol] 10 mmol/L Normal 8-15 [facility] Comment on above: Order Comment: Speci men Type: BLOOD SPECIMENOrdering Facility: [facility] Address: [address] [place] [address] Performed By: #### 2 4321-2, 56133-8 ####[facility] HOSPITALNCLIA [id number] [place] [address] [place] Calcium [Mass/Vol] 10.8 mg/dL High 8.5-10.2 [facility] Comment on above: Order Comment: Speci men Type: BLOOD SPECIMENOrdering Facility: [facility] Address: [address] [place] [address] Performed By: #### 2 4321-2, ####[facility] MILLTOWLALILIA [id number] [place] [address] [place] Chloride [Moles/Vol] 99 mmol/L Normal 98-107 [facility] Comment on above: Order Comment: Speci men Type: BLOOD SPECIMENOrdering Facility: [facility] Address: [address] [place] [address] Performed By: #### 2 432-2, ####[facility] HOSPITALVIETA [id number] [place] [address] [place] CO2 [Moles/Vol] 26 mmol/L Normal 22-30 [facility] Comment on above: Order Comment: Speci men Type: BLOOD SPECIMENOrdering Facility: [facility] Address: [address] [place] [address] Performed By: #### 2 4321-2, ####[facility] MILLWLALILIA [id number] [place] [address] [place] Creatinine [Mass/Vol] 1.49 mg/dL High 0.58-0.96 [facility] Comment on above: Order Comment: Speci men Type: BLOOD SPECIMENOrdering Facility: [facility] Address: [address] [place] [address] Performed By: #### 2 4321-2, ####[facility] MILLTOWNCLIA [id number] [place] [address] [place] Creatinine and Glomerular filtration rate.predicted panel (S/P/Bld) 40 mL/min/1.73m??? Low >=60 [facility] Comment on above: Order Comment: Med[place] sales Type: BLOOD SPECIMENOrdering Facility: [facility] Address: [address] [place] [address] Result Comment: Ann mated Glomerular Filtration Rate (eGFR) is calculated using the 2020 CKD-EPI creatinine equation. This equation utilizes serum creatinine, sex, and age as parameters. The creatinine assay has traceable calibration to isotope dilution-mass spectrometry. Refer to KDIGO guidelines for clinical interpretation. In patients with unstable renal function, e.g. those with acute kidney injury, the eGFR may not accurately reflect actual GFR. Performed By: #### 2 4321-2, 15572-4 ####[facility] [id number] [place] [address] [place] Glucose [Mass/Vol] 146 mg/dL High 74-99 [facility] Comment on above: Order Comment: [place] sales Type: BLOOD SPECIMENOrdering Facility: [facility] Address: [address] [place] [address] Result Comment: The [place] Diabetes Association (ADA) provides guidance for cutoff values for fasting glucose and random glucose. The ADA defines fasting as no caloric intake for at least 8 hours. Fasting plasma glucose results between 100 to 125 mg/dL indicate increased risk for diabetes (prediabetes).Fasting plasma glucose results greater than or equal to 126 mg/dL meet the criteria for diagnosis of diabetes. In the absence of unequivocal hyperglycemia, results should be confirmed by repeat testing. In a patient with classic symptoms of hyperglycemia or hyperglycemic crisis, random plasma glucose results greater than or equal to 200 mg/dL meet the criteria for diagnosis of diabetes.Reference: Standards of Medical Care in Diabetes 2016, [place] [employer]. Diabetes Care. 2016.39(Suppl 1). Performed By: #### 2 4321-2, 12645-7 ####[facility] HOSPITALNCLIA [id number] [place] [address] [place] Potassium [Moles/Vol] 3.5 mmol/L Low 3.7-5.1 [facility] Comment on above: Order Comment: Speci men Type: BLOOD SPECIMENOrdering Facility: [facility] Address: [address] [place] [address] Performed By: #### 2 4321-2, 78732-5 ####[facility] KARINCLIA [id number] [place] [address] [place] Sodium [Moles/Vol] 135 mmol/L Low 136-144 [facility] Comment on above: Order Comment: Speci men Type: BLOOD SPECIMENOrdering Facility: [facility] Address: [address] [place] [address] Performed By: #### 2 4321-2, 58571-5 ####[facility] DAVISMACA [id number] [place] [address] [place] Urea nitrogen [Mass/Vol] 20 mg/dL Normal 7-21 [facility] Comment on above: Order Comment: Speci men Type: BLOOD SPECIMENOrdering Facility: [facility] Address: [address] [place] [address] Performed By: #### 2 4321-2, ####[facility] DVAISBERENICELIA [id number] [place] [address] [place] Magnesium SerPl-mCncon 03-20 Magnesium [Mass/Vol] 1.4 mg/dL Low 1.7-2.3 [facility] Comment on above: Order Comment: Speci men Type: BLOOD SPECIMENOrdering Facility: [facility] Address: [address] [place], [place] [address] Performed By: #### 2 4321-2, ####[facility] KARINCLIA [id number] [place] [address] [place] CNPNon 03-19-2024 CNPN Normal [facility] CBC W Auto Differential pane l (Bld)on 03-18-2024 Basophils (Bld) [#/Vol] 0.06 10*3/uL Normal <0.11 [facility] Comment on above: Order Comment: Speci men Type: BLOOD SPECIMEN [facility] Address: [address] [place] [address] Performed By: #### 5 7021-8 #### [facility] CLIA [id number] [address] [place] [address] [place] Basophils/100 WBC (Bld) 0.4 % Normal [facility] Comment on above: Order Comment: Speci men Type: BLOOD SPECIMEN Ordering Facility: [facility] Address: [address] [place] [address] Performed By: #### 5 7021-8 #### [facility] CLIA [id number] [address] [place] [address] [place] Differential cell count method Nom (Bld) Auto Normal [facility] Comment on above: Order Comment: Speci men Type: BLOOD SPECIMEN Ordering Facility: [facility] Address: [address] [place] [address] Performed By: #### 5 7021-8 #### [facility] CLIA [id number] [address] [place] [address] [place] Eosinophils (Bld) [#/Vol] 0.03 10*3/uL Normal <0.46 [facility] Comment on above: Order Comment: Speci men Type: BLOOD SPECIMEN Ordering Facility: [facility] Address: [address] [place] [address] Performed By: #### 5 7021-8 #### [facility] CLIA [id number] [address] [place] [address] [place] Eosinophils/100 WBC (Bld) 0.2 % Normal [facility] Comment on above: Order Comment: Speci men Type: BLOOD SPECIMEN Ordering Facility: [facility] Address: [address] [place] [address] Performed By: #### 5 7021-8 #### [facility] CLIA [id number] [address] [place] [address] [place] Erythrocyte distribution width (RBC) [Ratio] 17.1 % High 11.5-15.0 [facility] Comment on above: Order Comment: Speci men Type: BLOOD SPECIMEN Ordering Facility: [facility] Address: [address] [place] [address] Performed By: #### 5 7021-8 #### [facility] CLIA [id number] [address] [place] [address] [place] Hematocrit (Bld) [Volume fraction] 28.0 % Low 36.0-46.0 [facility] Comment on above: Order Comment: Speci men Type: BLOOD SPECIMEN Ordering Facility: [facility] Address: [address] [place] [address] Performed By: #### 5 7021-8 #### [facility] CLIA [id number] [address] [place] [address] [place] Hemoglobin (Bld) [Mass/Vol] 9.7 g/dL Low 11.5-15.5 [facility] Comment on above: Order Comment: Speci men Type: BLOOD SPECIMEN Ordering Facility: [facility] Address: [address] [place] [address] Performed By: #### 5 7021-8 #### [facility] CLIA [id number] [address] [place] [address] [place] Immature granulocytes (Bld) [#/Vol] 0.36 10*3/uL High <0.10 [facility] Comment on above: Order Comment: Speci men Type: BLOOD SPECIMEN Ordering Facility: [facility] Address: [address] [place] [address] Performed By: #### 5 7021-8 #### [facility] CLIA [id number] [address] [place] [address] [place] Immature granulocytes/100 WBC (Bld) 2.6 % Normal [facility] Comment on above: Order Comment: Speci men Type: BLOOD SPECIMEN Ordering Facility: [facility] Address: [address] [place] [address] Performed By: #### 5 7021-8 #### [facility] CLIA [id number] [address] [place] [address] [place] Lymphocytes (Bld) [#/Vol] 1.80 10*3/uL Normal 1.00-4.00 [facility] Comment on above: Order Comment: Speci men Type: BLOOD SPECIMEN Ordering Facility: [facility] Address: [address] [place] [address] Performed By: #### 5 7021-8 #### [facility] CLIA [id number] [address] [place] [address] [place] Lymphocytes/100 WBC (Bld) 12.9 % Normal [facility] Comment on above: Order Comment: Speci men Type: BLOOD SPECIMEN Ordering Facility: [facility] Address: [address] [place] [address] Performed By: #### 5 7021-8 #### [facility] CLIA [id number] [address] [place] [address] [place] MCH (RBC) [Entitic mass] 33.1 pg Normal 26.0-34.0 [facility] Comment on above: Order Comment: Speci men Type: BLOOD SPECIMEN Ordering Facility: [facility] Address: [address] [place] [address] Performed By: #### 5 7021-8 #### [facility] CLIA [id number] [address] [place] [address] [place] MCHC (RBC) [Mass/Vol] 34.6 g/dL Normal 30.5-36.0 [facility] Comment on above: Order Comment: Speci men Type: BLOOD SPECIMEN Ordering Facility: [facility] Address: [address] [place] [address] Performed By: #### 5 7021-8 #### [facility] CLIA [id number] [address] [place] [address] [place] MCV (RBC) [Entitic vol] 95.6 fL Normal 80.0-100.0 [facility] Comment on above: Order Comment: Speci men Type: BLOOD SPECIMEN Ordering Facility: [facility] Address: [address] [place] [address] Performed By: #### 5 7021-8 #### [facility] CLIA [id number] [address] [place] [address] [place] Monocytes (Bld) [#/Vol] 0.60 10*3/uL Normal <0.87 [facility] Comment on above: Order Comment: Speci men Type: BLOOD SPECIMEN Ordering Facility: [facility] Address: [address] [place] [address] Performed By: #### 5 7021-8 #### [facility] CLIA [id number] [address] [place] [address] [place] Monocytes/100 WBC (Bld) 4.3 % Normal [facility] Comment on above: Order Comment: Speci men Type: BLOOD SPECIMEN Ordering Facility: [facility] Address: [address] [place] [address] Performed By: #### 5 7021-8 #### [facility] CLIA [id number] [address] [place] [address] [place] Neutrophils (Bld) [#/Vol] 11.13 10*3/uL High 1.45-7.50 [facility] Comment on above: Order Comment: Speci men Type: BLOOD SPECIMEN Ordering Facility: [facility] Address: [address] [place] [address] Performed By: #### 5 7021-8 #### [facility] CLIA [id number] [address] [place] [address] [place] Neutrophils/100 WBC (Bld) 79.6 % Normal [facility] Comment on above: Order Comment: Speci men Type: BLOOD SPECIMEN Ordering Facility: [facility] Address: [address] [place] [address] Performed By: #### 5 7021-8 #### [facility] CLIA [id number] [address] [place] [address] [place] Nucleated RBC (Bld) [#/Vol] 10*3/uL Normal <0.01 [facility] Comment on above: Order Comment: Speci men Type: BLOOD SPECIMEN Ordering Facility: [facility] Address: [address] [place] [address] Performed By: #### 5 7021-8 #### [facility] CLIA [id number] [address] [place] [address] [place] Nucleated RBC/100 WBC (Bld) [Ratio] 0.0 /100 WBC Normal [facility] Comment on above: Order Comment: Speci men Type: BLOOD SPECIMEN Ordering Facility: [facility] Address: [address] [place] [address] Performed By: #### 5 7021-8 #### [facility] CLIA [id number] [address] [place] [address] [place] Platelet mean volume (Bld) [Entitic vol] 10.1 fL Normal 9.0-12.7 [facility] Comment on above: Order Comment: Speci men Type: BLOOD SPECIMEN Ordering Facility: [facility] Address: [address] [place] [address] Performed By: #### 5 7021-8 #### [facility] CLIA [id number] [address] [place] [address] [place] Platelets (Bld) [#/Vol] 199 10*3/uL Normal 150-400 [facility] Comment on above: Order Comment: Speci men Type: BLOOD SPECIMEN Ordering Facility: [facility] Address: [address] [place] [address] Performed By: #### 5 7021-8 #### [facility] CLIA [id number] [address] [place] [address] [place] RBC (Bld) [#/Vol] 2.93 10*6/uL Low 3.90-5.20 [facility] Comment on above: Order Comment: Speci men Type: BLOOD SPECIMEN Ordering Facility: [facility] Address: [address] [place] [address] Performed By: #### 5 7021-8 #### [facility] CLIA [id number] [address] [place] [address] [place] WBC (Bld) [#/Vol] 13.98 10*3/uL High 3.70-11.00 [facility] Comment on above: Order Comment: Medina men Type: BLOOD SPECIMEN Ordering Facility: [facility] Address: [address] [place] [address] Performed By: #### 5 7021-8 #### [facility] CLIA [id number] [address] [place] [address] [place] CNOVon 03-18-2024 CNOV Office Visit (YOEL ) VICKEY SCHWARTZ ([id number]) 1960 F Date Time Provider Department 03/18/24 11:40 AM JANETT FELICIANO During your visit today, we recorded the following information about you: Temperature Pulse Respiration Blood pressure 98.7 degrees 70/minute 18/minute 112/53 Weight Height 87.4 kg 1.626 m Janett Feliciano MD, PhD 04/07/2024 2:42 PM Signed [facility] Progress Note VICKEY SCHWARTZ [facility]#: [id number] PATIENT TYPE: LOCATION: [facility] ORIGINATOR: Janett Feliciano M.D. DATE OF SERVICE: 03/18/2024 DATE OF SERVICE: 03/18/2024 I had the sincere pleasure of seeing Ms. Schwartz in my Thoracic Surgery Clinic. This very pleasant woman is being seen for preoperative visit. She had a locally advanced non-small cell lung cancer (clinical stage T1 N1 M0). She unfortunately has had complications from her induction of chemo immunotherapy and has developed what was thought to be an inflammatory process in her kidneys resulting in renal insufficiency. She is currently on high-dose steroids and is somewhat cushingoid at this visit. She has been on 60 mg daily for now approaching 10 days to 2 weeks. She is being seen by her local oncologist, Dr. Castle. This will need to be weaned down. She will have significant difficulties in wound healing. She does understand the risks, benefits, alternatives and personnel involved with the planned right lung resection, which will likely be a right lower lobectomy in a minimally invasive (including robotics) or thoracotomy would be utilized. She has consented to me at this visit. From an anesthetic standpoint, a double-lumen tube should be placed. Standard access for this type of operation should be obtained. Central venous access may need to be obtained because of patient's body habitus. If thoracotomy is used. Cryoanalgesia will be employed. Preoperative subcutaneous heparin and standard antibiotics should be given as well as 50 mg of hydrocortisone at induction. Her operation will likely be rescheduled as it was initially planned for 10 days from now. I fear that her steroids will still not be sufficiently wean for her to meet that operative date. [facility] DOC: [id number] Janett eFliciano MD, PhD 03/19/2024 11:40 AM Signed CHART COPY DO NOT DISCARD . Patient here today for TCI visit. . Surgery Robotic Assisted right lower lobe lung resection scheduled for 03/31/2024. . Meds allergies reviewed. Latex Allergy: No Anticoag:MVI/Supplements-la st dose 03/23/2024 GLP1/SGLT2: Prednisone 20mg TID Immunosuppressants Plaquenil last dose 03/17/2024 Medport: No Preoperative instructions; NPO after midnight night prior to surgery and Listerine after brushing teeth and Hibiclens shower Patient verbalized understanding of instructions. . 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 CXR: 03/18/[address] CHEST 02/12/2024 IMPRESSION: 1. Interval decrease in the size of the pleural-based soft tissue mass in the right lower lobe. No evidence of acute intrathoracic pathology. MRI BRAIN 09/21/2023 IMPRESSION: No abnormal intracranial enhancement to indicate intracranial metastasis. Chronic changes and incidental findings as described. PET SCAN 07/16/2024 Outside Source . PFT: 03/06/2024 FVC (L) 3.59 2.15 2.98 3.83 120 3.66 122 2 FEV1 (L) 2.36 1.68 2.35 2.99 100 2.42 102 2 DLCOunc (ml/min/mmHg) 14.72 15.35 21.52 27.69 68 6MW: 03/06/2024 Distance Walked (meters) Distance Walked (feet) Female Predicted Walk Distance (feet) Female Lower Limit of Normal (feet) Female % Predicted Total Duration Of The Stops (seconds) 411.48 1350 1487.86 1031.86 90.7 Cardiac Studies: Echo 03/06/2024 CONCLUSIONS: - Technically difficult exam due to body habitus. - Exam indication: Cardiotoxicity screen before chemotherapy - The left ventricle is normal in size. Left ventricular systolic function is normal. EF = 58 ? 5% (2D biplane) - The right ventricle is normal in size. Right ventricular systolic function is normal. - The patient has not had a prior CC echocardiographic exam for comparison. EK03/18/2024 Clinical Staging: T: 1c N: 1 M: 0 G: NA Risk, benefits, and alternatives discussed per Janett Feliciano M.D. [facility] 03/18/2024 Films CCT, PET, and MRI BRAIN . PATIENT EDUCATION The following was evaluated: Motivation To Learn: (more content not included)... Normal [facility] CONFIRM BLOOD TYPEon 025 ABO B Normal [facility] Comment on above: Order Comment: Speci men Type: BLOOD SPECIMEN Ordering Facility: [facility] Address: [address] [place] [address] Performed By: #### C ONABO #### [facility] CLIA [id number] [address] [place], [place] [address] [place] Rh Nom (Bld) Positive Normal [facility] Comment on above: Order Comment: Speci men Type: BLOOD SPECIMEN Ordering Facility: [facility] Address: [address] [place] [address] Performed By: #### C ONABO #### [facility] CLIA [id number] [address] [place] [address] [place] Comprehensive metabolic 2000 panelon 03-18-2024 Albumin [Mass/Vol] 4.6 g/dL Normal 3.9-4.9 [facility] Comment on above: Order Comment: Speci men Type: BLOOD SPECIMEN Ordering Facility: [facility] Address: [address] [place] [address] Performed By: #### 2 4323-8 #### [facility] CLIA [id number] [address] [place] [address] [place] ALP [Catalytic activity/Vol] 131 U/L High 34-123 [facility] Comment on above: Order Comment: Speci men Type: BLOOD SPECIMEN Ordering Facility: [facility] Address: [address] [place] [address] Performed By: #### 2 4323-8 #### [facility] CLIA [id number] [address] [place] [address] [place] ALT [Catalytic activity/Vol] 82 U/L High 7-38 [facility] Comment on above: Order Comment: Speci men Type: BLOOD SPECIMEN Ordering Facility: [facility] Address: [address] [place] [address] Performed By: #### 2 4323-8 #### [facility] CLIA [id number] [address] [place] [address] [place] Anion gap [Moles/Vol] 13 mmol/L Normal 8-15 [facility] Comment on above: Order Comment: Speci men Type: BLOOD SPECIMEN Ordering Facility: [facility] Address: [address] [place] [address] Performed By: #### 2 4323-8 #### [facility] CLIA [id number] [address] [place] [address] [place] AST [Catalytic activity/Vol] 88 U/L High 13-35 [facility] Comment on above: Order Comment: Speci men Type: BLOOD SPECIMEN Ordering Facility: [facility] Address: [address] [place] [address] Performed By: #### 2 4323-8 #### [facility] CLIA [id number] [address] [place] [address] [place] Bilirubin [Mass/Vol] 0.4 mg/dL Normal 0.2-1.3 [facility] Comment on above: Order Comment: Speci men Type: BLOOD SPECIMEN Ordering Facility: [facility] Address: [address] [place] [address] Performed By: #### 2 4323-8 #### [facility] CLIA [id number] [address] [place] [address] [place] Calcium [Mass/Vol] 10.9 mg/dL High 8.5-10.2 [facility] Comment on above: Order Comment: Speci men Type: BLOOD SPECIMEN Ordering Facility: [facility] Address: [address] [place] [address] Performed By: #### 2 4323-8 #### [facility] CLIA [id number] [address] [place] [address] [place] Chloride [Moles/Vol] 99 mmol/L Normal 98-107 [facility] Comment on above: Order Comment: Speci men Type: BLOOD SPECIMEN Ordering Facility: [facility] Address: [address] [place] [address] Performed By: #### 2 4323-8 #### [facility] CLIA [id number] [address] [place] [address] [place] CO2 [Moles/Vol] 26 mmol/L Normal 22-30 [facility] Comment on above: Order Comment: Speci men Type: BLOOD SPECIMEN Ordering Facility: [facility] Address: [address] [place] [address] Performed By: #### 2 4323-8 #### [facility] CLIA [id number] [address] [place] [address] [place] Creatinine [Mass/Vol] 1.54 mg/dL High 0.58-0.96 [facility] Comment on above: Order Comment: Medina sales Type: BLOOD SPECIMEN Ordering Facility: [facility] Address: [address] [place] [address] Performed By: #### 2 4323-8 #### [facility] CLIA [id number] [address] [place] [address] [place] Creatinine and Glomerular filtration rate.predicted panel (S/P/Bld) 38 mL/min/1.73m??? Low >=60 [facility] Comment on above: Order Comment: Medina sales Type: BLOOD SPECIMEN Ordering Facility: [facility] Address: [address] [place] [address] Result Comment: [facility] Glomerular Filtration Rate (eGFR) is calculated using the 2020 CKD-EPI creatinine equation. This equation utilizes serum creatinine, sex, and age as parameters. The creatinine assay has traceable calibration to isotope dilution-mass spectrometry. Refer to KDIGO guidelines for clinical interpretation. In patients with unstable renal function, e.g. those with acute kidney injury, the eGFR may not accurately reflect actual GFR. Performed By: #### 2 4323-8 #### [facility] CLIA [id number] [address] [place] [address] [place] Glucose [Mass/Vol] 90 mg/dL Normal 74-99 [facility] Comment on above: Order Comment: Medina sales Type: BLOOD SPECIMEN Ordering Facility: [facility] Address: [address] [place] [address] Result Comment: The [place] Diabetes Association (ADA) provides guidance for cutoff values for fasting glucose and random glucose. The ADA defines fasting as no caloric intake for at least 8 hours. Fasting plasma glucose results between 100 to 125 mg/dL indicate increased risk for diabetes (prediabetes). Fasting plasma glucose results greater than or equal to 126 mg/dL meet the criteria for diagnosis of diabetes. In the absence of unequivocal hyperglycemia, results should be confirmed by repeat testing. In a patient with classic symptoms of hyperglycemia or hyperglycemic crisis, random plasma glucose results greater than or equal to 200 mg/dL meet the criteria for diagnosis of diabetes. Reference: Standards of Medical Care in Diabetes 2016, [place] [employer] Association. Diabetes Care. 2016.39(Suppl 1). Performed By: #### 2 4323-8 #### [facility] CLIA [id number] [address] [place] [address] [place] Potassium [Moles/Vol] 4.5 mmol/L Normal 3.7-5.1 [facility] Comment on above: Order Comment: Speci men Type: BLOOD SPECIMEN Ordering Facility: [facility] Address: [address] [place] [address] Performed By: #### 2 4323-8 #### [facility] CLIA [id number] [address] [place] [address] [place] Protein [Mass/Vol] 8.4 g/dL High 6.3-8.0 [facility] Comment on above: Order Comment: Medina sales Type: BLOOD SPECIMEN Ordering Facility: [facility] Address: [address] [place] [address] Performed By: #### 2 4323-8 #### [facility] CLIA [id number] [address] [place] [address] [place] Sodium [Moles/Vol] 138 mmol/L Normal 136-144 [facility] Comment on above: Order Comment: Medina sales Type: BLOOD SPECIMEN Ordering Facility: [facility] Address: [address] [place] [address] Performed By: #### 2 4323-8 #### [facility] CLIA [id number] [address] [place] [address] [place] Urea nitrogen [Mass/Vol] 22 mg/dL High 7-21 [facility] Comment on above: Order Comment: Kushali men Type: BLOOD SPECIMEN Ordering Facility: [facility] Address: [address] [place] [address] Performed By: #### 2 4323-8 #### [facility] CLIA [id number] [address] [place] [address] [place] ECG COMPLETEon 03-18-2024 ECG COMPLETE Normal [facility] HISTORY PHYSICALon HISTORY PHYSICAL Normal [facility] PT panel Coag (PPP)on 2024 INR Coag (PPP) [Relative time] 1.0 {INR} Normal 0.9-1.3 [facility] Comment on above: Order Comment: Medina sales Type: BLOOD SPECIMEN Ordering Facility: [facility] Address: [address] [place] [id number] Result Comment: Adilia min K Antagonist (VKA) Therapeutic Range: INR 2 to 3 (Target INR of 2.5) Note: For patients treated with VKA drugs, such as warfarin, the [place] [employer] 2012 Guideline recommends a therapeutic INR range of 2 to 3 (target INR of 2.5). This recommendation includes high-risk patients with antiphospholipid syndrome with previous arterial or venous thromboembolism, current-generation mechanical or bioprosthetic aortic heart valve replacement. Note: Patients with mechanical aortic valve replacement and additional risk factors for thromboembolic events (atrial fibrillation, previous thromboembolism, LV dysfunction, hypercoagulable conditions) or an older generation mechanical AVR (i.e., ball in-Cage) or any mechanical MVR should have a INR therapeutic range of 2.5 to 3.5 (target INR of 3). Candace GH, et al. Chest 2012, 141:7S-47S Ivan RA et al. [facility] 2017, 70: 252-289 Performed By: #### 3 4528-0, 23891-0 #### [facility] CLIA [id number] [address] [place] [address] [place] PT Coag (PPP) [Time] 10.9 s Normal 9.7-13.0 [facility] Comment on above: Order Comment: Medina sales Type: BLOOD SPECIMEN Ordering Facility: [facility] Address: [address] [place] [address] Performed By: #### 3 4528-0, 13648-7 #### [facility] CLIA [id number] [address] [place] [address] [place] STAPHYLOCOCCUS AUREUS AND MR SA SCREEN, PCR, NASALon 03-18-2024 S. aureus and MRSA panel DESIREE+probe (Nose) Methicillin-SUSCEPTIBLE Staphylococcus aureus Detected Abnormal Not Detected [facility] Comment on above: Order Comment: Speci men Type: SWAB Ordering Facility: [facility] Address: [address] [place] [address] Performed By: #### S APCR #### [facility] CLIA [id number] [address] [place] [address] [id number] [address] [place] TYPE AND SCREEN,30 DAYon ABO B Normal [facility] Comment on above: Order Comment: Speci men Type: BLOOD SPECIMEN Ordering Facility: [facility] Address: [address] [place] [address] Performed By: #### T SCR30 #### [facility] CLIA [id number] [address] [place] [address] [place] Rh Nom (Bld) Positive Normal [facility] Comment on above: Order Comment: Speci men Type: BLOOD SPECIMEN Ordering Facility: [facility] Address: [address] [place] [address] Performed By: #### T SCR30 #### [facility] CLIA [id number] [address] [place] [address] [place] URINALYSIS, DIPSTICK ONLYon 03-18-2024 Bilirubin Ql (U) Negative Normal Negative [facility] Comment on above: Order Comment: Speci men Type: URINE SPECIMEN Ordering Facility: [facility] Address: [address] [place] [address] Performed By: #### U A #### [facility] CLIA [id number] [address] [place] [address] [place] Clarity (Unsp spec) Clear Normal Clear [facility] Comment on above: Order Comment: Speci men Type: URINE SPECIMEN Ordering Facility: [facility] Address: [address] [place] [address] Performed By: #### U A #### [facility] CLIA [id number] [address] [place] [address] [place] Color (U) Colorless Normal Yellow [facility] Comment on above: Order Comment: Speci men Type: URINE SPECIMEN Ordering Facility: [facility] Address: [address] [place] [address] Performed By: #### U A #### [facility] CLIA [id number] [address] [place] [address] [place] Glucose Test strip (U) [Mass/Vol] Negative Normal Trace, Negative [facility] Comment on above: Order Comment: Speci men Type: URINE SPECIMEN Ordering Facility: [facility] Address: [address] [place] [address] Performed By: #### U A #### [facility] CLIA [id number] [address] [place] [address] [place] Hemoglobin Ql (U) Negative Normal Negative, Trace [facility] Comment on above: Order Comment: Speci men Type: URINE SPECIMEN Ordering Facility: [facility] Address: [address] [place] [address] Performed By: #### U A #### [facility] CLIA [id number] [address] [place] [address] [place] Ketones Ql (U) Negative Normal Negative, Trace [facility] Comment on above: Order Comment: Speci men Type: URINE SPECIMEN Ordering Facility: [facility] Address: [address] [place] [address] Performed By: #### U A #### [facility] CLIA [id number] [address] [place] [address] [place] Leukocyte esterase Test strip Ql (U) Negative Normal Negative, 25 Alexis/uL [facility] Comment on above: Order Comment: Speci men Type: URINE SPECIMEN Ordering Facility: [facility] Address: [address] [place] [address] Performed By: #### U A #### [facility] CLIA [id number] [address] [place] [address] [place] Nitrite Ql (U) Negative Normal Negative [facility] Comment on above: Order Comment: Speci men Type: URINE SPECIMEN Ordering Facility: [facility] Address: [address] [place] [address] Performed By: #### U A #### [facility] CLIA [id number] [address] [place] [address] [place] pH (U) 6.0 [pH] Normal 5.0-8.0 [facility] Comment on above: Order Comment: Speci men Type: URINE SPECIMEN Ordering Facility: [facility] Address: [address] [place] [address] Performed By: #### U A #### [facility] [place] [id number] [address] [place] [address] [place] Protein (U) [Mass/Vol] Negative Normal Trace, Negative [facility] Comment on above: Order Comment: Speci men Type: URINE SPECIMEN Ordering Facility: [facility] Address: [address] [place] [address] Performed By: #### U A #### [facility] IA [id number] [address] [place] [address] [place] Specific gravity (U) [Rel density] 1.008 Normal 1.005-1.030 [facility] Comment on above: Order Comment: Speci men Type: URINE SPECIMEN Ordering Facility: [facility] Address: [address] [place] [address] Performed By: #### U A #### [facility] [place] [id number] [address] [place] [address] [place] Urobilinogen Ql (U) Normal Normal Normal [facility] Comment on above: Order Comment: Speci men Type: URINE SPECIMEN Ordering Facility: [facility] Address: [address] [place] [address] Performed By: #### U A #### [facility] IA [id number] [address] [place] [address] [place] XR CHEST 2V FRONTAL/LATon XR CHEST 2V FRONTAL/LAT * * *Final Report* * * DATE OF EXAM: Mar 18 2024 11:15AM HCX 5291 - XR CHEST 2V FRONTAL/LAT / PROCEDURE REASON: multiple diagnoses * * * * Physician Interpretation * * * * RESULT: EXAMINATION: CHEST RADIOGRAPH (2 VIEW FRONTAL and LATERAL) CLINICAL HISTORY: Malignant neoplasm of lower lobe of right lung (HCC) Pre-procedure lab exam MQ: XC2_6 EXAM DATE/TIME: 03/18/2024 11:15 AM COMPARISON: 11/14/2021 RESULT: Lines, tubes, and devices: None. Lungs and pleura: Subpleural reticular opacities in the upper lobes and lung bases that could be from emphysema or interstitial lung disease appear unchanged. There is no focal pulmonary consolidation identified. No pleural effusion. Please refer to report from recent chest CT for better evaluation of the lungs. Cardiomediastinal silhouette: Stable cardiomediastinal silhouette. Bones and soft tissues: Mild degenerative change of the thoracic spine. IMPRESSION: See result Transcribed Using Voice Recognition Transcribe Date/Time: Mar 18 2024 1:38P Dictated by: JAKI MINA MD This examination was interpreted and the report reviewed and electronically signed by: JAKI MINA MD on Mar 18 2024 1:42PM EST [id number] [facility] XR Chest PA and Lateralon IMPRESSION: See result Transcribed Using Voice Recognition Transcribe Date/Time: Mar 18 2024 1:38P Dictated by: JAKI MINA MD This examination was interpreted and the report reviewed and electronically signed by: JAKI MINA MD on Mar 18 2024 1:42PM EST [facility] * * *Final Report* * * DATE OF EXAM: Mar 18 2024 11:15AM HCX 5291 - XR CHEST 2V FRONTAL/LAT / PROCEDURE REASON: multiple diagnoses * * * * Physician Interpretation * * * * RESULT: EXAMINATION: CHEST RADIOGRAPH (2 VIEW FRONTAL & LATERAL) CLINICAL HISTORY: Malignant neoplasm of lower lobe of right lung (HCC) Pre-procedure lab exam MQ: XC2_6 EXAM DATE/TIME: 03/18/2024 11:15 AM COMPARISON: 11/14/2021 RESULT: Lines, tubes, and devices: None. Lungs and pleura: Subpleural reticular opacities in the upper lobes and lung bases that could be from emphysema or interstitial lung disease appear unchanged. There is no focal pulmonary consolidation identified. No pleural effusion. Please refer to report from recent chest CT for better evaluation of the lungs. Cardiomediastinal silhouette: Stable cardiomediastinal silhouette. Bones and soft tissues: Mild degenerative change of the thoracic spine. [facility] Provider, Elliott Mariesunshine almaraz [place] - 03/18/2024 * * *Final Report* * * DATE OF EXAM: Mar 18 2024 11:15AM HCX 5291 - XR CHEST 2V FRONTAL/LAT / PROCEDURE REASON: multiple diagnoses * * * * Physician Interpretation * * * * RESULT: EXAMINATION: CHEST RADIOGRAPH (2 VIEW FRONTAL & LATERAL) CLINICAL HISTORY: Malignant neoplasm of lower lobe of right lung (HCC) Pre-procedure lab exam MQ: XC2_6 EXAM DATE/TIME: 03/18/2024 11:15 AM COMPARISON: 11/14/2021 RESULT: Lines, tubes, and devices: None. Lungs and pleura: Subpleural reticular opacities in the upper lobes and lung bases that could be from emphysema or interstitial lung disease appear unchanged. There is no focal pulmonary consolidation identified. No pleural effusion. Please refer to report from recent chest CT for better evaluation of the lungs. Cardiomediastinal silhouette: Stable cardiomediastinal silhouette. Bones and soft tissues: Mild degenerative change of the thoracic spine. IMPRESSION IMPRESSION: See result Transcribed Using Voice Recognition Transcribe Date/Time: Mar 18 2024 1:38P Dictated by: JAKI MINA MD This examination was interpreted and the report reviewed and electronically signed by: JAKI MINA MD on Mar 18 2024 1:42PM EST [facility] Radiology Study observation (narrative) [facility] XR Chest PA and LateralOrder ed By: [facility] Provider on 03-18-2024 [facility] aPTT PPPon 03-18-2024 aPTT Coag (PPP) [Time] 26.5 s Normal 23.0-32.4 [facility] Comment on above: Order Comment: Speci men Type: BLOOD SPECIMEN Ordering Facility: [facility] Address: [address] [place] [address] Performed By: #### 3 4528-0, 65495-1 #### [id number] [place] [address] [place] CNPNon 03-13-2024 CNPN Normal [facility] CBC W Auto Differential pane l (Bld)on 03-12-2024 Basophils (Bld) [#/Vol] 0.08 10*3/uL Normal <0.11 [facility] Comment on above: Order Comment: Speci men Type: BLOOD SPECIMENOrdering Facility: [facility] Address: [address] [place] [address] Performed By: #### 5 7021-8 ####[facility] LABCLIA [id number] [place] [address] [place] Basophils/100 WBC (Bld) 0.8 % Normal [facility] Comment on above: Order Comment: Speci men Type: BLOOD SPECIMENOrdering Facility: [facility] Address: [address] [place] [address] Performed By: #### 5 7021-8 ####[facility] LABCLIA [id number] [place] [address] [place] Differential cell count method Nom (Bld) Auto Normal [facility] Comment on above: Order Comment: Speci men Type: BLOOD SPECIMENOrdering Facility: [facility] Address: [address] [place] [address] Performed By: #### 5 7021-8 ####[facility] LABCLIA [id number] [place] [address] [place] Eosinophils (Bld) [#/Vol] 0.12 10*3/uL Normal <0.46 [facility] Comment on above: Order Comment: Speci men Type: BLOOD SPECIMENOrdering Facility: [facility] Address: [address] [place] [address] Performed By: #### 5 7021-8 ####[facility]CLIA [id number] [place] [address] [place] Eosinophils/100 WBC (Bld) 1.2 % Normal [facility] Comment on above: Order Comment: Speci men Type: BLOOD SPECIMENOrdering Facility: [facility] Address: [address] [place] [address] Performed By: #### 5 7021-8 ####[facility] LABCLIA [id number] [place] [address] [place] Erythrocyte distribution width (RBC) [Ratio] 16.6 % High 11.5-15.0 [facility] Comment on above: Order Comment: Speci men Type: BLOOD SPECIMENOrdering Facility: [facility] Address: [address] [place] [address] Performed By: #### 5 7021-8 ####[facility] LABIA [id number] [place] [address] [place] Hematocrit (Bld) [Volume fraction] 29.4 % Low 36.0-46.0 [facility] Comment on above: Order Comment: Speci men Type: BLOOD SPECIMENOrdering Facility: [facility] Address: [address] [place] [address] Performed By: #### 5 7021-8 ####[facility] LABIA [id number] [place] [address] [place] Hemoglobin (Bld) [Mass/Vol] 10.2 g/dL Low 11.5-15.5 [facility] Comment on above: Order Comment: Speci men Type: BLOOD SPECIMENOrdering Facility: [facility] Address: [address] [place] [address] Performed By: #### 5 7021-8 ####[facility]CLIA [id number] [place] [address] [place] Immature granulocytes (Bld) [#/Vol] 0.17 10*3/uL High <0.10 [facility] Comment on above: Order Comment: Speci men Type: BLOOD SPECIMENOrdering Facility: [facility] Address: [address] [place] [address] Performed By: #### 5 7021-8 ####[facility]IA [id number] [place] [address] [place] Immature granulocytes/100 WBC (Bld) 1.7 % Normal [facility] Comment on above: Order Comment: Speci men Type: BLOOD SPECIMENOrdering Facility: [facility] Address: [address] [place] [address] Performed By: #### 5 7021-8 ####[facility]IA [id number] [place] [address] [place] Lymphocytes (Bld) [#/Vol] 1.57 10*3/uL Normal 1.00-4.00 [facility] Comment on above: Order Comment: Speci men Type: BLOOD SPECIMENOrdering Facility: [facility] Address: [address] [place] [address] Performed By: #### 5 7021-8 ####[facility]IA [id number] [place] [address] [place] Lymphocytes/100 WBC (Bld) 15.3 % Normal [facility] Comment on above: Order Comment: Speci men Type: BLOOD SPECIMENOrdering Facility: [facility] Address: [address] [place] [address] Performed By: #### 5 7021-8 ####[facility]IA [id number] [place] [address] [place] MCH (RBC) [Entitic mass] 32.6 pg Normal 26.0-34.0 [facility] Comment on above: Order Comment: Speci men Type: BLOOD SPECIMENOrdering Facility: [facility] Address: [address] [place] [address] Performed By: #### 5 7021-8 ####[facility]CLIA [id number] [id number] [address] [place] MCHC (RBC) [Mass/Vol] 34.7 g/dL Normal 30.5-36.0 [facility] Comment on above: Order Comment: Speci men Type: BLOOD SPECIMENOrdering Facility: [facility] Address: [address] [place] [address] Performed By: #### 5 7021-8 ####[facility] [id number] [place] [address] [place] MCV (RBC) [Entitic vol] 93.9 fL Normal 80.0-100.0 [facility] Comment on above: Order Comment: Speci men Type: BLOOD SPECIMENOrdering Facility: [facility] Address: [address] [place] [address] Performed By: #### 5 7021-8 ####[facility]IA [id number] [place] [address] [place] Monocytes (Bld) [#/Vol] 0.70 10*3/uL Normal <0.87 [facility] Comment on above: Order Comment: Speci men Type: BLOOD SPECIMENOrdering Facility: [facility] Address: [address] [place] [address] Performed By: #### 5 7021-8 ####[facility]IA [id number] [place] [address] [place] Monocytes/100 WBC (Bld) 6.8 % Normal [facility] Comment on above: Order Comment: Speci men Type: BLOOD SPECIMENOrdering Facility: [facility] Address: [address] [place] [address] Performed By: #### 5 7021-8 ####[facility]IA [id number] [place] [address] [place] Neutrophils (Bld) [#/Vol] 7.65 10*3/uL High 1.45-7.50 [facility] Comment on above: Order Comment: Speci men Type: BLOOD SPECIMENOrdering Facility: [facility] Address: [address] [place] [address] Performed By: #### 5 7021-8 ####[facility]CLIA [id number] [place] [address] [place] Neutrophils/100 WBC (Bld) 74.2 % Normal [facility] Comment on above: Order Comment: Speci men Type: BLOOD SPECIMENOrdering Facility: [facility] Address: [address] [place] [address] Performed By: #### 5 7021-8 ####[facility]CLIA [id number] [place] [address] [place] Nucleated RBC (Bld) [#/Vol] 10*3/uL Normal <0.01 [facility] Comment on above: Order Comment: Speci men Type: BLOOD SPECIMENOrdering Facility: [facility] Address: [address] [place] [address] Performed By: #### 5 7021-8 ####[facility] LABIA [id number] [place] [address] [place] Nucleated RBC/100 WBC (Bld) [Ratio] 0.0 /100 WBC Normal [facility] Comment on above: Order Comment: Speci men Type: BLOOD SPECIMENOrdering Facility: [facility] Address: [address] [place] [address] Performed By: #### 5 7021-8 ####[facility]CLIA [id number] [place] [address] [place] Platelet mean volume (Bld) [Entitic vol] Normal [facility] Comment on above: Order Comment: Speci men Type: BLOOD SPECIMENOrdering Facility: [facility] Address: [address] [place] [address] Result Comment: Unab le to Report. Performed By: #### 5 7021-8 ####[facility]CLIA [id number] [place] [address] [place] Platelets (Bld) [#/Vol] Normal [facility] Comment on above: Order Comment: Speci men Type: BLOOD SPECIMENOrdering Facility: [facility] Address: [address] [place] [address] Result Comment: Plat elet count confirmed by manual review of peripheral blood smear. Results checked and verified.No clot detected.Platelets Clumped Estimate Normal. Performed By: #### 5 7021-8 ####[facility] LABIA [id number] [place] [address] [place] RBC (Bld) [#/Vol] 3.13 10*6/uL Low 3.90-5.20 [facility] Comment on above: Order Comment: Speci men Type: BLOOD SPECIMENOrdering Facility: [facility] Address: [address] [place] [address] Performed By: #### 5 7021-8 ####[facility] [id number] [place] [address] [place] WBC (Bld) [#/Vol] 10.29 10*3/uL Normal 3.70-11.00 [facility] Comment on above: Order Comment: Kushali henrry Type: BLOOD SPECIMENOrdering Facility: [facility] Address: [address] [place] [address] Performed By: #### 5 7021-8 ####[facility] [id number] [place] [address] [place] CNOVon 03-12-2024 CNOV Office Visit ([facility] ) VICKEY SCHWARTZ ([id number]) 1960 F Date Time Provider Department 03/12/24 2:00 PM PALOMO JOSEPH During your visit today, we recorded the following information about you: Temperature Pulse Respiration Blood pressure 97.3 degrees 79/minute 16/minute 117/55 Weight Height 87.9 kg 1.626 m Palomo Joseph MD 03/12/2024 4:28 PM Signed [facility] [place] NEPHROLOGY CONSULT NOTE Patient Name: Vickey Schwartz Consultation requested by Alf Castle DO (Camilo Jonas MD) for an opinion regarding: CRISTINO My final recommendations will be communicated back to the requesting physician by way of shared Medical record or letter to requesting physician via [place] mail. CHIEF COMPLAINT: CRISTINO HPI: 63 y/o female with h/o obesity class 1 (BMI 32.65), bilateral SNHL, bilateral hearting aids since first grade; HLD, PBC, SLE on hydroxychloroquine; alopecia, UIP, RODRIGO not on treatment; ex-smoker (7 pack-years; quit in 2015); pulmonary nodules, poorly differentiated NSCLC favoring adenocarcinoma ([id number], stage IIB) of the RLL planned for surgical resection on 03/31/24 (NGS/biomarkers/flatbed truck driver mutation analysis: no flatbed truck driver mutations; PRAF p([id number]) variant of potential significance Tier II); s/p 4 cycles of neoadjuvant chemotherapy and immunotherapy with cisplatin, pemetrexed, and pembrolizumab (she's had approximately 50% decrease in tumor size per CT on 02/12/24) c/b hypomagnesemia and CRISTINO (cisplatin was omitted on cycles 3 and 4 due to CRISTINO; last dose of pembrolizumab on 03/03/24 and scheduled for next dose on 03/24/24); who was referred for evaluation of CRISTINO. She has been instructed to stop hydroxychloroquine 2 weeks before her lung surgery (last dose on 03/16/24). Duration (when): since 12/17/23 Location (where): the kidneys Severity (ex: creat 4.5, BP 200/100): serum creatinine 1.61 on 03/10/24 (baseline serum creatinine 0.58 to 0.66) Quality (ex: sharp, dull): acute Context (ex: activity at onset or related to condition): secondary to pembrolizumab and pantoprazole Timing (ex: continuous, intermittent): continuous Modifying factors (ex: medications, interventions): pembrolizumab and pantoprazole in a patient with kidney disease from pemetrexed Associated signs AND symptoms (ex: edema, SOB): azotemia The patient has a voice recorder running during the encounter (she states it helps her remember what happened during the office visit and the instructions). PAST MEDICAL HISTORY: PAST MEDICAL HISTORY Diagnosis Date Hemorrhage of rectum and anus HYPERLIPIDEMIA MIXED 07/10/2005 Lung nodule 06/13/2016 June 25, 2017 subcentimeter lung nodules and interstitial lung disease also stable from 2017: check CT in 1 year. Primary biliary cholangitis (HCC) Snoring Systemic lupus erythematosus (HCC) PAST SURGICAL HISTORY: PAST SURGICAL HISTORY Procedure Laterality Date BRONCHOSCOPY 07/31/2023 COLONOSCOPY FLX DX W/COLLJ SPEC WHEN PFRMD 06/29/2016 HAD VASOVAGAL RESPONSE DURING PROCEDURE SYST BP 60'S HR 40'S-GIVEN ATROPINE CORRJ HLX VLGS BNCTY SESMDC DSTL METAR OSTEOT 1985 DIAGNOSTIC ARTHROSCOPY SHOULDER +- SYNOVIAL BX Left 04/03/2018 Left shoulder arthroscopic subacromial decompression, rotator cuff repair, and biceps tenotomy EGD 12/25/2022 repeat 2 years ESOPHAGOGASTRODUODENOSCOPY TRANSORAL DIAGNOSTIC 11/11/2018 EGD ESOPHAGOGASTRODUODENOSCOPY TRANSORAL DIAGNOSTIC 11/22/2020 repeat in 2 years FOOT SURGERY HX 1986 HYSTEROSCOPY 06/21/2017 [facility] LUNG BIOPSY HX 08/24/2023 SIGMOIDOSCOPY ?2000 SKIN BIOPSY HX TONSILLECTOMY HX FAMILY HISTORY: FAMILY HISTORY Problem Relation Age of Onset Diabetes Mother Hypertension Mother Stroke Mother other (? SFTP) Mother Heart Father age 60's other (PBC) Father None Brother Obstructive Sleep Apnea Brother Colon Cancer Paternal Grandmother Colon Cancer Paternal Grandfather Anesthesia Problems No Family History SOCIAL HISTORY: Social History Tobacco Use Smoking status: Former Current packs/day: 0.00 Average packs/day: 0.2 packs/day for 30.0 years (4.5 ttl pk-yrs) Types: Cigarettes Start date: 1985 Quit date: 2016 Years since quittin.1 Smokeless tobacco: Never Tobacco comments: Pt smoked one pack a week x 30 years, quit 2016 Vaping Use Vaping status: Never Used Substance Use Topics Alcohol use: No Drug use: No MEDICATIONS: magnesium chloride (SLOW-MAG ORAL) Take 1 tablet by mouth two times a day. hydrOXYchloroQUINE (PLAQUENIL) 200 mg tablet Take 1 tablet by mouth two times a day. unhkntmgjiBVQCH-enhecy-tmci yamileth (BMX 1:1:1) 1:1:1 liqd Take 5 mL by mouth every 4 hours as needed. ursodiol (ACTIGALL) 300 mg capsule Take 1 capsule by mouth three times a day. pantoprazole DR (PROTONIX) 40 mg tablet Take 1 tablet by mouth once andrea (more content not included)... Normal [facility] Comprehensive metabolic 2000 panelon 03-12-2024 Albumin [Mass/Vol] 4.6 g/dL Normal 3.9-4.9 [facility] Comment on above: Order Comment: Speci men Type: BLOOD SPECIMENOrdering Facility: [facility] Address: [address] [place] [address] Performed By: #### 2 4323-8 ####[facility] LABIA [id number] [place] [address] [place] ALP [Catalytic activity/Vol] 143 U/L High 34-123 [facility] Comment on above: Order Comment: Speci men Type: BLOOD SPECIMENOrdering Facility: [facility] Address: [address] [place] [address] Performed By: #### 2 4323-8 ####[facility] LABCLIA [id number] [place] [address] [place] ALT [Catalytic activity/Vol] 42 U/L High 7-38 [facility] Comment on above: Order Comment: Speci men Type: BLOOD SPECIMENOrdering Facility: [facility] Address: [address] [place] [address] Performed By: #### 2 4323-8 ####[facility] LABCLIA [id number] [place] [address] [place] Anion gap [Moles/Vol] 13 mmol/L Normal 8-15 [facility] Comment on above: Order Comment: Speci men Type: BLOOD SPECIMENOrdering Facility: [facility] Address: [address] [place] [address] Performed By: #### 2 4323-8 ####[facility] LABCLIA [id number] [place] [address] [place] AST [Catalytic activity/Vol] 51 U/L High 13-35 [facility] Comment on above: Order Comment: Speci men Type: BLOOD SPECIMENOrdering Facility: [facility] Address: [address] [place] [address] Performed By: #### 2 4323-8 ####[facility] LABCLIA [id number] [place] [address] [place] Bilirubin [Mass/Vol] 0.5 mg/dL Normal 0.2-1.3 [facility] Comment on above: Order Comment: Speci men Type: BLOOD SPECIMENOrdering Facility: [facility] Address: [address] [place] [address] Performed By: #### 2 4323-8 ####[facility] LABCLIA [id number] [place] [address] [place] Calcium [Mass/Vol] 11.1 mg/dL High 8.5-10.2 [facility] Comment on above: Order Comment: Speci men Type: BLOOD SPECIMENOrdering Facility: [facility] Address: [address] [place] [address] Performed By: #### 2 4323-8 ####[facility] LABCLIA [id number] [place] [address] [place] Chloride [Moles/Vol] 100 mmol/L Normal 98-107 [facility] Comment on above: Order Comment: Speci men Type: BLOOD SPECIMENOrdering Facility: [facility] Address: [address] [place] [address] Performed By: #### 2 4323-8 ####[facility] LABCLIA [id number] [place] [address] [place] CO2 [Moles/Vol] 24 mmol/L Normal 22-30 [facility] Comment on above: Order Comment: Speci men Type: BLOOD SPECIMENOrdering Facility: [facility] Address: [address] [place] [address] Performed By: #### 2 4323-8 ####[facility] LABCLIA [id number] [place] [address] [place] Creatinine [Mass/Vol] 1.46 mg/dL High 0.58-0.96 [facility] Comment on above: Order Comment: Speci men Type: BLOOD SPECIMENOrdering Facility: [facility] Address: [address] [place] [address] Performed By: #### 2 4323-8 ####[facility] LABCLIA [id number] [place] [address] [place] Creatinine and Glomerular filtration rate.predicted panel (S/P/Bld) 41 mL/min/1.73m??? Low >=60 [facility] Comment on above: Order Comment: Speci men Type: BLOOD SPECIMENOrdering Facility: [facility] Address: [address] [place] [address] Result Comment: Ann mated Glomerular Filtration Rate (eGFR) is calculated using the 2020 CKD-EPI creatinine equation. This equation utilizes serum creatinine, sex, and age as parameters. The creatinine assay has traceable calibration to isotope dilution-mass spectrometry. Refer to KDIGO guidelines for clinical interpretation. In patients with unstable renal function, e.g. those with acute kidney injury, the eGFR may not accurately reflect actual GFR. Performed By: #### 2 4323-8 ####[facility] LABCLIA [id number] [place] [address] [place] Glucose [Mass/Vol] 90 mg/dL Normal 74-99 [facility] Comment on above: Order Comment: Speci men Type: BLOOD SPECIMENOrdering Facility: [facility] Address: [address] [place] [address] Result Comment: The [place] [employer] (ADA) provides guidance for cutoff values for fasting glucose and random glucose. The ADA defines fasting as no caloric intake for at least 8 hours. Fasting plasma glucose results between 100 to 125 mg/dL indicate increased risk for diabetes (prediabetes).Fasting plasma glucose results greater than or equal to 126 mg/dL meet the criteria for diagnosis of diabetes. In the absence of unequivocal hyperglycemia, results should be confirmed by repeat testing. In a patient with classic symptoms of hyperglycemia or hyperglycemic crisis, random plasma glucose results greater than or equal to 200 mg/dL meet the criteria for diagnosis of diabetes.Reference: Standards of Medical Care in Diabetes 2016, [place] [employer]. Diabetes Care. 2016.39(Suppl 1). Performed By: #### 2 4323-8 ####[facility] LABCLIA [id number] [place] [address] [place] Potassium [Moles/Vol] 3.9 mmol/L Normal 3.7-5.1 [facility] Comment on above: Order Comment: Speci men Type: BLOOD SPECIMENOrdering Facility: [facility] Address: [address] [place] [address] Performed By: #### 2 4323-8 ####[facility] LABCLIA [id number] [place] [address] [place] Protein [Mass/Vol] 8.5 g/dL High 6.3-8.0 [facility] Comment on above: Order Comment: Speci men Type: BLOOD SPECIMENOrdering Facility: [facility] Address: [address] [place] [address] Performed By: #### 2 4323-8 ####[facility] LABCLIA [id number] [place] [address] [place] Sodium [Moles/Vol] 137 mmol/L Normal 136-144 [facility] Comment on above: Order Comment: Speci men Type: BLOOD SPECIMENOrdering Facility: [facility] Address: [address] [place] [address] Performed By: #### 2 4323-8 ####[facility] LABCLIA [id number] [address] [address] [place] Urea nitrogen [Mass/Vol] 18 mg/dL Normal 7-21 [facility] Comment on above: Order Comment: Speci men Type: BLOOD SPECIMENOrdering Facility: [facility] Address: [address] [place], [place] [address] Performed By: #### 2 4323-8 ####[facility] LABCLIA [id number] [place] [id number] [place] ED NOTEon 03-12-2024 ED NOTE Normal [facility] ED PROV NOTEon 03-12-2024 ED PROV NOTE Normal [facility] ED Triage Noteon 03-12-2024 ED Triage Note Normal [facility] UA DIP, URINE (POC)on 2024 BILIRUBIN UA (POCT) Negative Negative [facility] CLARITY UA (POCT) Clear [facility] COLOR UA (POCT) Yellow [facility] GLUCOSE UA (POCT) Negative Negative mg/dL [facility] Hemoglobin Ql (U) Negative Negative [facility] Interpretation and review of laboratory results Abnormal [facility] KETONE UA (POCT) Negative Negative mg/dL [facility] LEUKOCYTES UA (POCT) Trace Abnormal Negative [facility] NITRITE UA (POCT) Negative Negative [facility] PH UA (POCT) 5.5 4.5 - 8.0 [facility] Protein Ql (U) Negative Negative mg/dL [facility] SPECIFIC GRAVITY UA (POCT) 1.020 1.005 - 1.030 [facility] UROBILINOGEN UA (POCT) 0.2 Normal E.U./dL [facility] Location:[facility], [address] [place] [address], [address] [facility] Urinalysis complete panel (U )on 03-12-2024 Bacteria LM.HPF (Urine sed) [#/Area] Negative Normal Negative [facility] Comment on above: Order Comment: Speci men Type: URINE SPECIMENOrdering Facility: [facility] Address: [address] [place] [address] Performed By: #### 2 4356-8 ####[facility] LABCLIA [id number] [place] [address] [place] Bilirubin Ql (U) Negative Normal Negative [facility] Comment on above: Order Comment: Speci men Type: URINE SPECIMENOrdering Facility: [facility] Address: [address] [place] [address] Performed By: #### 2 4356-8 ####[facility] LABCLIA [id number] [place] [address] [place] Clarity (Unsp spec) Clear Normal Clear [facility] Comment on above: Order Comment: Speci men Type: URINE SPECIMENOrdering Facility: [facility] Address: [address] [place] [address] Performed By: #### 2 4356-8 ####[facility] LABCLIA [id number] [place] [address] [place] Color (U) Yellow Normal Yellow [facility] Comment on above: Order Comment: Speci men Type: URINE SPECIMENOrdering Facility: [facility] Address: [address] [place] [address] Performed By: #### 2 4356-8 ####[facility] LABCLIA [id number] [place] [address] [place] Epithelial cells LM.HPF (Urine sed) [#/Area] None Seen Normal [facility] Comment on above: Order Comment: Speci men Type: URINE SPECIMENOrdering Facility: [facility] Address: [address] [place] [address] Performed By: #### 2 4356-8 ####[facility] LABCLIA [id number] [id number] [address] [place] Glucose Test strip (U) [Mass/Vol] Negative Normal Negative [facility] Comment on above: Order Comment: Speci men Type: URINE SPECIMENOrdering Facility: [facility] Address: [address] [place] [address] Performed By: #### 2 4356-8 ####[facility] LABCLIA [id number] [place] [address] [place] Hemoglobin Ql (U) Negative Normal Negative [facility] Comment on above: Order Comment: Speci men Type: URINE SPECIMENOrdering Facility: [facility] Address: [address] [place] [address] Performed By: #### 2 4356-8 ####[facility] LABCLIA [id number] [place] [address] [place] Hyaline casts (Urine sed) [#/Area] 0 /[LPF] Normal 0 /LPF [facility] Comment on above: Order Comment: Speci men Type: URINE SPECIMENOrdering Facility: [facility] Address: [address] [place] [address] Performed By: #### 2 4356-8 ####[facility] LABCLIA [id number] [place] [address] [place] Ketones Ql (U) Negative Normal Negative [facility] Comment on above: Order Comment: Speci men Type: URINE SPECIMENOrdering Facility: [facility] Address: [address] [place] [address] Performed By: #### 2 4356-8 ####[facility] LABCLIA [id number] [place] [address] [place] Leukocyte esterase Test strip Ql (U) Trace Abnormal Negative [facility] Comment on above: Order Comment: Speci men Type: URINE SPECIMENOrdering Facility: [facility] Address: [address] [place] [address] Performed By: #### 2 4356-8 ####[facility] LABCLIA [id number] [place] [address] [place] Nitrite Ql (U) Negative Normal Negative [facility] Comment on above: Order Comment: Speci men Type: URINE SPECIMENOrdering Facility: [facility] Address: [address] [place] [address] Performed By: #### 2 4356-8 ####[facility] LABCLIA [id number] [place] [address] [place] pH (U) 6.0 [pH] Normal <8.5 [facility] Comment on above: Order Comment: Speci men Type: URINE SPECIMENOrdering Facility: [facility] Address: [address] [place] [address] Performed By: #### 2 4356-8 ####[facility] LABIA [id number] [place] [address] [place] Protein (U) [Mass/Vol] Negative Normal Negative [facility] Comment on above: Order Comment: Speci men Type: URINE SPECIMENOrdering Facility: [facility] Address: [address] [place] [address] Performed By: #### 2 4356-8 ####[facility] LABIA [id number] [place] [address] [place] RBC LM.HPF (Urine sed) [#/Area] 0-2 /HPF Normal 0-2 /HPF [facility] Comment on above: Order Comment: Speci men Type: URINE SPECIMENOrdering Facility: [facility] Address: [address] [place] [address] Performed By: #### 2 4356-8 ####[facility] LABIA [id number] [place] [address] [place] Specific gravity (U) [Rel density] 1.009 Normal 1.005-1.030 [facility] Comment on above: Order Comment: Speci men Type: URINE SPECIMENOrdering Facility: [facility] Address: [address] [place] [address] Performed By: #### 2 4356-8 ####[facility] LABIA [id number] [place] [address] [place] Urobilinogen Ql (U) 0.2 EU/dL Normal 0.2-1.0 EU/dL [facility] Comment on above: Order Comment: Speci men Type: URINE SPECIMENOrdering Facility: [facility] Address: [address] [place] [address] Performed By: #### 2 4356-8 ####[facility] LABIA [id number] [place] [address] [place] WBC LM.HPF (Urine sed) [#/Area] 0-5 /HPF Normal 0-5 /HPF [facility] Comment on above: Order Comment: Speci men Type: URINE SPECIMENOrdering Facility: [facility] Address: [address] [place] [address] Performed By: #### 2 4356-8 ####[facility] LABIA [id number] [place] [address] [place] CNPNon 03-11-2024 CNPN Normal [facility] C3 COMPLEMENTon 03-10-2024 Complement C3 [Mass/Vol] 142 mg/dL 86 - 166 mg/dL [facility] C3 SerPl-mCncon 03-10-2024 Complement C3 [Mass/Vol] 142 mg/dL Normal 86-166 [facility] Comment on above: Order Comment: Speci men Type: BLOOD SPECIMENOrdering Facility: [facility] Address: [address] [place] [address] Performed By: #### 4 485-9, 39665-3, 4498-2 ####[facility] LABIA [id number] [place] [address] [place] C4 COMPLEMENTon 03-10-2024 Complement C4 [Mass/Vol] 22 mg/dL 13 - 46 mg/dL [facility] C4 SerPl-mCncon 03-10-2024 Complement C4 [Mass/Vol] 22 mg/dL Normal 13-46 [facility] Comment on above: Order Comment: Speci men Type: BLOOD SPECIMENOrdering Facility: [facility] Address: [address] [place] [address] Performed By: #### 4 485-9, 30147-8, 4498-2 ####[facility] LABCLIA [id number] [place] [address] [place] CNOVon 03-10-2024 CNOV Normal [facility] metabolic 2000 panelon 03-10-2024 Albumin [Mass/Vol] 4.6 g/dL Normal 3.9-4.9 [facility] Comment on above: Order Comment: Speci men Type: BLOOD SPECIMENOrdering Facility: [facility] Address: [address] [place] [address] Performed By: #### 4 485-9, 55241-8, 4498-2 ####[facility] LABCLIA [id number] [place] [address] [place] ALP [Catalytic activity/Vol] 136 U/L High 34-123 [facility] Comment on above: Order Comment: Speci men Type: BLOOD SPECIMENOrdering Facility: [facility] Address: [address] [place] [address] Performed By: #### 4 485-9, 44120-0, 4498-2 ####[facility] LABCLIA [id number] [place] [id number] [place] ALT [Catalytic activity/Vol] 42 U/L High 7-38 [facility] Comment on above: Order Comment: Speci men Type: BLOOD SPECIMENOrdering Facility: [facility] Address: [address] [place] [address] Performed By: #### 4 485-9, 48932-2, 4498-2 ####[facility] LABCLIA [id number] [place] [address] [place] Anion gap [Moles/Vol] 12 mmol/L Normal 8-15 [facility] Comment on above: Order Comment: Speci men Type: BLOOD SPECIMENOrdering Facility: [facility] Address: [address] [place] [address] Performed By: #### 4 485-9, 36900-2, 4498-2 ####[facility] LABCLIA [id number] [place] [address] [place] AST [Catalytic activity/Vol] 53 U/L High 13-35 [facility] Comment on above: Order Comment: Speci men Type: BLOOD SPECIMENOrdering Facility: [facility] Address: [address] [place] [address] Performed By: #### 4 485-9, 25912-4, 4498-2 ####[facility] LABCLIA [id number] [place] [address] [place] Bilirubin [Mass/Vol] 0.5 mg/dL Normal 0.2-1.3 [facility] Comment on above: Order Comment: Speci men Type: BLOOD SPECIMENOrdering Facility: [facility] Address: [address] [place] [address] Performed By: #### 4 485-9, 55014-4, 4498-2 ####[facility] LABCLIA [id number] [place] [address] [place] Calcium [Mass/Vol] 10.8 mg/dL High 8.5-10.2 [facility] Comment on above: Order Comment: Speci men Type: BLOOD SPECIMENOrdering Facility: [facility] Address: [address] [place] [address] Performed By: #### 4 485-9, 21864-9, 4498-2 ####[facility] LABCLIA [id number] [place] [address] [place] Chloride [Moles/Vol] 98 mmol/L Normal 98-107 [facility] Comment on above: Order Comment: Speci men Type: BLOOD SPECIMENOrdering Facility: [facility] Address: [address] [place] [address] Performed By: #### 4 485-9, 43653-5, 4498-2 ####[facility] LABCLIA [id number] [place] [address] [place] CO2 [Moles/Vol] 27 mmol/L Normal 22-30 [facility] Comment on above: Order Comment: Speci men Type: BLOOD SPECIMENOrdering Facility: [facility] Address: [address] [place] [address] Performed By: #### 4 485-9, 35780-3, 4498-2 ####[facility] LABCLIA [id number] [place] [address] [place] Creatinine [Mass/Vol] 1.61 mg/dL High 0.58-0.96 [facility] Comment on above: Order Comment: Speci men Type: BLOOD SPECIMENOrdering Facility: [facility] Address: [address] [place] [address] Performed By: #### 4 485-9, 10051-9, 4498-2 ####[facility] LABIA [id number] [place] [address] [place] Creatinine and Glomerular filtration rate.predicted panel (S/P/Bld) 36 mL/min/1.73m??? Low >=60 [facility] Comment on above: Order Comment: Speci men Type: BLOOD SPECIMENOrdering Facility: [facility] Address: [address] [place] [address] Result Comment: Ann mated Glomerular Filtration Rate (eGFR) is calculated using the 2020 CKD-EPI creatinine equation. This equation utilizes serum creatinine, sex, and age as parameters. The creatinine assay has traceable calibration to isotope dilution-mass spectrometry. Refer to KDIGO guidelines for clinical interpretation. In patients with unstable renal function, e.g. those with acute kidney injury, the eGFR may not accurately reflect actual GFR. Performed By: #### 4 485-9, 32616-9, 4498-2 ####[facility] LABCLIA [id number] [place] [id number] [place] Glucose [Mass/Vol] 84 mg/dL Normal 74-99 [facility] Comment on above: Order Comment: Speci men Type: BLOOD SPECIMENOrdering Facility: [facility] Address: [address] [place] [address] Result Comment: The [place] [employer] (ADA) provides guidance for cutoff values for fasting glucose and random glucose. The ADA defines fasting as no caloric intake for at least 8 hours. Fasting plasma glucose results between 100 to 125 mg/dL indicate increased risk for diabetes (prediabetes).Fasting plasma glucose results greater than or equal to 126 mg/dL meet the criteria for diagnosis of diabetes. In the absence of unequivocal hyperglycemia, results should be confirmed by repeat testing. In a patient with classic symptoms of hyperglycemia or hyperglycemic crisis, random plasma glucose results greater than or equal to 200 mg/dL meet the criteria for diagnosis of diabetes.Reference: Standards of Medical Care in Diabetes 2016, [place] [employer]. Diabetes Care. 2016.39(Suppl 1). Performed By: #### 4 485-9, 45753-7, 4498-2 ####[facility] LABCLIA [id number] [place] [id number] [place] Potassium [Moles/Vol] 4.3 mmol/L Normal 3.7-5.1 [facility] Comment on above: Order Comment: Speci men Type: BLOOD SPECIMENOrdering Facility: [facility] Address: [address] [place] [address] Performed By: #### 4 485-9, 16477-2, 4498-2 ####[facility] LABIA [id number] [place] [address] [place] Protein [Mass/Vol] 8.6 g/dL High 6.3-8.0 [facility] Comment on above: Order Comment: Speci men Type: BLOOD SPECIMENOrdering Facility: [facility] Address: [address] [place] [address] Performed By: #### 4 485-9, 77593-8, 4498-2 ####[facility] LABCLIA [id number] [place] [address] [place] Sodium [Moles/Vol] 137 mmol/L Normal 136-144 [facility] Comment on above: Order Comment: Speci men Type: BLOOD SPECIMENOrdering Facility: [facility] Address: [address] [place] [address] Performed By: #### 4 485-9, 29236-9, 4498-2 ####[facility] LABCLIA [id number] [place] [address] [place] Urea nitrogen [Mass/Vol] 24 mg/dL High 7-21 [facility] Comment on above: Order Comment: Speci men Type: BLOOD SPECIMENOrdering Facility: [facility] Address: [address] [place] [address] Performed By: #### 4 485-9, 23381-8, 4498-2 ####[facility] LABIA [id number] [place] [address] [place] DNA ANTIBODY DS BLDon 2024 DNA ANTIBODY 76 IU/mL Normal <=200 [facility] Comment on above: Order Comment: Speci men Type: BLOOD SPECIMENOrdering Facility: [facility] Address: [address] [place] [address] Result Comment: Nega tive: <200 IU/mLEquivocal: 201-300 IU/mLModerate Positive: 301-800 IU/mLStrong Positive: >801 IU/mL Performed By: #### D NAAB ####[facility] LABCLIA [id number] [place] [address] [place] DNA ANTIBODY QUALITATIVE INTERPRETATION Negative Normal Negative [facility] Comment on above: Order Comment: Speci men Type: BLOOD SPECIMENOrdering Facility: [facility] Address: [address] [place] [address] Performed By: #### D NAAB ####[facility] LABCLIA [id number] [place] [address] [place] MISC SEND OUT TST 1on 2024 MISC SCAN TEST RESULTS 1 Normal [facility] Comment on above: Order Comment: Speci men Type: BLOOD SPECIMENOrdering Facility: [facility] Address: [address] [place] [address] Result Comment: Rese arch REFERRAL LAB 1 (DROP-DOWN) Normal [facility] Comment on above: Order Comment: Speci men Type: BLOOD SPECIMENOrdering Facility: [facility] Address: [address] [place] [address] Result Comment: Rese arch TEST 1 Normal [facility] Comment on above: Order Comment: Speci men Type: BLOOD SPECIMENOrdering Facility: [facility] Address: [address] [place] [address] Result Comment: Rese arch No Panel Informationon 03-10 Interpretation and review of laboratory results Normal [facility] Prot/Creat Uron 03-10-2024 Protein/Creatinine (U) [Mass ratio] 0.10 mg/mg Normal <0.15 [facility] Comment on above: Order Comment: Speci men Type: URINE SPECIMENOrdering Facility: [facility] Address: [address] [place] [address] Result Comment: Adul t Proteinuria Categories:<0.15 mg/mg is considered normal to mildly increased0.15 - 0.50 mg/mg is considered moderately increased>0.50 mg/mg is considered severely increasedKDIGO. (2013). KDIGO 2012 Clinical Practice Guideline for the Evaluation and Management of Chronic Kidney Disease. Official Journal of the International Society of Nephrology, 3(1), 1-150. Performed By: #### 2 890-2 ####[facility] LABCLIA [id number] [place] [address] [place] Protein/Creatinine (U) [Mass ratio]on 03-10-2024 Creatinine (U) [Mass/Vol] 100.7 mg/dL Normal 20.0-300.0 [facility] Comment on above: Order Comment: Speci men Type: URINE SPECIMENOrdering Facility: [facility] Address: [address] [place] [address] Performed By: #### 2 890-2 ####[facility] LABCLIA [id number] [address] STATES OF [facility] Protein (U) [Mass/Vol] 10 mg/dL Normal 0-20 [facility] Comment on above: Order Comment: Speci men Type: URINE SPECIMENOrdering Facility: [facility] Address: [address] [place] [address] Performed By: #### 2 890-2 ####[facility] LABCLIA [id number] [address] STATES OF [facility] Urinalysis complete panel (U )on 03-10-2024 Bacteria LM.HPF (Urine sed) [#/Area] Negative Negative /HPF [facility] Bilirubin Ql (U) Negative Negative [facility] Clarity (Unsp spec) Clear Clear [facility] Color (U) Yellow Yellow [facility] Epithelial cells LM.HPF (Urine sed) [#/Area] None Seen /HPF [facility] Glucose Test strip (U) [Mass/Vol] Negative Negative [facility] Hemoglobin Ql (U) Negative Negative [facility] Hyaline casts (Urine sed) [#/Area] 0 /[LPF] 0 /LPF [facility] Interpretation and review of laboratory results Abnormal [facility] Ketones Ql (U) Negative Negative [facility] Leukocyte esterase Test strip Ql (U) 2+ Abnormal Negative [facility] Nitrite Ql (U) Negative Negative [facility] pH (U) 5.5 [pH] NINF - 8.5 [facility] Protein (U) [Mass/Vol] Trace Abnormal Negative [facility] RBC LM.HPF (Urine sed) [#/Area] 0-2 /HPF 0-2 /HPF [facility] Specific gravity (U) [Rel density] 1.015 1.005 - 1.030 [facility] Urobilinogen Ql (U) 0.2 EU/dL 0.2-1.0 EU/dL [facility] WBC LM.HPF (Urine sed) [#/Area] 11-20 /HPF Abnormal 0-5 /HPF [facility] This test was develo ped and its performance characteristics determined by [facility]'s [facility] Path[facility] and Laboratory Medicine [place] (RTPLMI). It has not been cleared or approved by the FDA. -[facility] is regulated under CLIA as qualified to perform high-complexity testing. This test is used for clinical purposes. It should not be regarded as investigational or for research. [facility] Bacteria LM.HPF (Urine sed) [#/Area] Negative Normal Negative [facility] Comment on above: Order Comment: Speci men Type: URINE SPECIMENOrdering Facility: [facility] Address: [address] [place] [address] Performed By: #### 2 4356-8 ####[facility] LABCLIA [id number] [place] [address] [place] Bilirubin Ql (U) Negative Normal Negative [facility] Comment on above: Order Comment: Speci men Type: URINE SPECIMENOrdering Facility: [facility] Address: [address] [place] [address] Performed By: #### 2 4356-8 ####[facility] LABCLIA [id number] [place] [address] [place] Clarity (Unsp spec) Clear Normal Clear [facility] Comment on above: Order Comment: Speci men Type: URINE SPECIMENOrdering Facility: [facility] Address: [address] [place] [address] Performed By: #### 2 4356-8 ####[facility] LABCLIA [id number] [place] [address] [place] Color (U) Yellow Normal Yellow [facility] Comment on above: Order Comment: Speci men Type: URINE SPECIMENOrdering Facility: [facility] Address: [address] [place] [address] Performed By: #### 2 4356-8 ####[facility] LABCLIA [id number] [address] [place] Epithelial cells LM.HPF (Urine sed) [#/Area] None Seen Normal [facility] Comment on above: Order Comment: Speci men Type: URINE SPECIMENOrdering Facility: [facility] Address: [address] [place] [address] Performed By: #### 2 4356-8 ####[facility] LABCLIA [id number] [place] [address] [place] Glucose Test strip (U) [Mass/Vol] Negative Normal Negative [facility] Comment on above: Order Comment: Speci men Type: URINE SPECIMENOrdering Facility: [facility] Address: [address] [place] [address] Performed By: #### 2 4356-8 ####[facility] LABCLIA [id number] [place] [address] [place] Hemoglobin Ql (U) Negative Normal Negative [facility] Comment on above: Order Comment: Speci men Type: URINE SPECIMENOrdering Facility: [facility] Address: [address] [place] [address] Performed By: #### 2 4356-8 ####[facility] LABCLIA [id number] [place] [address] [place] Hyaline casts (Urine sed) [#/Area] 0 /[LPF] Normal 0 /LPF [facility] Comment on above: Order Comment: Speci men Type: URINE SPECIMENOrdering Facility: [facility] Address: [address] [place] [address] Performed By: #### 2 4356-8 ####[facility] LABCLIA [id number] [place] [address] [place] Ketones Ql (U) Negative Normal Negative [facility] Comment on above: Order Comment: Speci men Type: URINE SPECIMENOrdering Facility: [facility] Address: [address] [place] [address] Performed By: #### 2 4356-8 ####[facility] LABCLIA [id number] [place] [address] [place] Leukocyte esterase Test strip Ql (U) 2+ Abnormal Negative [facility] Comment on above: Order Comment: Speci men Type: URINE SPECIMENOrdering Facility: [facility] Address: [address] [place] [address] Performed By: #### 2 4356-8 ####[facility] LABCLIA [id number] [place] [address] [place] Nitrite Ql (U) Negative Normal Negative [facility] Comment on above: Order Comment: Speci men Type: URINE SPECIMENOrdering Facility: [facility] Address: [address] [place] [address] Performed By: #### 2 4356-8 ####[facility] LABCLIA [id number] [place] [address] [place] pH (U) 5.5 [pH] Normal <8.5 [facility] Comment on above: Order Comment: Speci men Type: URINE SPECIMENOrdering Facility: [facility] Address: [address] [place] [address] Performed By: #### 2 4356-8 ####[facility] LABCLIA [id number] [place] [address] [place] Protein (U) [Mass/Vol] Trace Abnormal Negative [facility] Comment on above: Order Comment: Speci men Type: URINE SPECIMENOrdering Facility: [facility] Address: [address] [place] [address] Performed By: #### 2 4356-8 ####[facility] LABCLIA [id number] [place] [address] [place] RBC LM.HPF (Urine sed) [#/Area] 0-2 /HPF Normal 0-2 /HPF [facility] Comment on above: Order Comment: Speci men Type: URINE SPECIMENOrdering Facility: [facility] Address: [address] [place] [address] Performed By: #### 2 4356-8 ####[facility] LABIA [id number] [place] [address] [place] Specific gravity (U) [Rel density] 1.015 Normal 1.005-1.030 [facility] Comment on above: Order Comment: Speci men Type: URINE SPECIMENOrdering Facility: [facility] Address: [address] [place] [address] Performed By: #### 2 4356-8 ####[facility] LABIA [id number] [place] [address] [place] Urobilinogen Ql (U) 0.2 EU/dL Normal 0.2-1.0 EU/dL [facility] Comment on above: Order Comment: Speci men Type: URINE SPECIMENOrdering Facility: [facility] Address: [address] [place] [address] Performed By: #### 2 4356-8 ####[facility] LABIA [id number] [place] [address] [place] WBC LM.HPF (Urine sed) [#/Area] 11-20 /HPF Abnormal 0-5 /HPF [facility] Comment on above: Order Comment: Speci men Type: URINE SPECIMENOrdering Facility: [facility] Address: [address] [place] [address] Performed By: #### 2 4356-8 ####[facility] LABIA [id number] [place] [address] [place] CNPNon 03-09-2024 CNPN Normal [facility] CNOVon 03-06-2024 CNOV Normal [facility] CBC W Auto Differential pane l (Bld)on 03-05-2024 Basophils (Bld) [#/Vol] 0.06 10*3/uL Normal <0.11 [facility] Comment on above: Order Comment: Speci men Type: BLOOD SPECIMENOrdering Facility: [facility] Address: [address] [place] [address] Performed By: #### 5 7021-8 ####[facility]PITALWVTLIA [id number] [place] [address] [place] Basophils/100 WBC (Bld) 0.6 % Normal [facility] Comment on above: Order Comment: Speci men Type: BLOOD SPECIMENOrdering Facility: [facility] Address: [address] [place] [address] Performed By: #### 5 7021-8 ####[facility] [id number] [place] [address] [place] Differential cell count method Nom (Bld) Auto Normal [facility] Comment on above: Order Comment: Speci men Type: BLOOD SPECIMENOrdering Facility: [facility] Address: [address] [place] [address] Performed By: #### 5 7021-8 ####[facility] ERA [id number] [place] [address] [place] Eosinophils (Bld) [#/Vol] 0.07 10*3/uL Normal <0.46 [facility] Comment on above: Order Comment: Speci men Type: BLOOD SPECIMENOrdering Facility: [facility] Address: [address] [place] [address] Performed By: #### 5 7021-8 ####[facility] ERA [id number] [place] [address] [place] Eosinophils/100 WBC (Bld) 0.7 % Normal [facility] Comment on above: Order Comment: Speci men Type: BLOOD SPECIMENOrdering Facility: [facility] Address: [address] [place] [address] Performed By: #### 5 7021-8 ####[facility] DAVISFARMVILLETARIQ [id number] [place] [address] [place] Erythrocyte distribution width (RBC) [Ratio] 16.6 % High 11.5-15.0 [facility] Comment on above: Order Comment: Speci men Type: BLOOD SPECIMENOrdering Facility: [facility] Address: [address] [place] [address] Performed By: #### 5 7021-8 ####[facility]ITALNCUNIV[facility] [id number] [place] [address] [place] Hematocrit (Bld) [Volume fraction] 28.7 % Low 36.0-46.0 [facility] Comment on above: Order Comment: Speci men Type: BLOOD SPECIMENOrdering Facility: [facility] Address: [address] [place] [address] Performed By: #### 5 7021-8 ####[facility] [id number] [place] [address] [place] Hemoglobin (Bld) [Mass/Vol] 10.1 g/dL Low 11.5-15.5 [facility] Comment on above: Order Comment: Speci men Type: BLOOD SPECIMENOrdering Facility: [facility] Address: [address] [place] [address] Performed By: #### 5 7021-8 ####[facility] HOSPITALNCLIA [id number] [place] [address] [place] Immature granulocytes (Bld) [#/Vol] 0.39 10*3/uL High <0.10 [facility] Comment on above: Order Comment: Speci men Type: BLOOD SPECIMENOrdering Facility: [facility] Address: [address] [place] [address] Performed By: #### 5 7021-8 ####[facility] DAVISHORTENSIALIA [id number] [place] [address] [place] Immature granulocytes/100 WBC (Bld) 3.8 % Normal [facility] Comment on above: Order Comment: Speci men Type: BLOOD SPECIMENOrdering Facility: [facility] Address: [address] [place] [address] Performed By: #### 5 7021-8 ####[facility] [id number] [place] [address] [place] Lymphocytes (Bld) [#/Vol] 1.64 10*3/uL Normal 1.00-4.00 [facility] Comment on above: Order Comment: Speci men Type: BLOOD SPECIMENOrdering Facility: [facility] Address: [address] [place] [address] Performed By: #### 5 7021-8 ####[facility] [id number] [place] [address] [place] Lymphocytes/100 WBC (Bld) 16.0 % Normal [facility] Comment on above: Order Comment: Speci men Type: BLOOD SPECIMENOrdering Facility: [facility] Address: [address] [place] [address] Performed By: #### 5 7021-8 ####[facility] HOSPITALNCLIA [id number] [place] [address] [place] MCH (RBC) [Entitic mass] 32.5 pg Normal 26.0-34.0 [facility] Comment on above: Order Comment: Speci men Type: BLOOD SPECIMENOrdering Facility: [facility] Address: [address] [place] [address] Performed By: #### 5 7021-8 ####[facility] HOSPITALNCLIA [id number] [place] [address] [place] MCHC (RBC) [Mass/Vol] 35.2 g/dL Normal 30.5-36.0 [facility] Comment on above: Order Comment: Speci men Type: BLOOD SPECIMENOrdering Facility: [facility] Address: [address] [place] [address] Performed By: #### 5 7021-8 ####[facility]ITALNCUNIVERS[facility] [id number] [place] [address] [place] MCV (RBC) [Entitic vol] 92.3 fL Normal 80.0-100.0 [facility] Comment on above: Order Comment: Speci men Type: BLOOD SPECIMENOrdering Facility: [facility] Address: [address] [place] [address] Performed By: #### 5 7021-8 ####[facility] [id number] [place] [address] [place] Monocytes (Bld) [#/Vol] 0.74 10*3/uL Normal <0.87 [facility] Comment on above: Order Comment: Speci men Type: BLOOD SPECIMENOrdering Facility: [facility] Address: [address] [place] [address] Performed By: #### 5 7021-8 ####[facility] [id number] [place] [address] [place] Monocytes/100 WBC (Bld) 7.2 % Normal [facility] Comment on above: Order Comment: Speci men Type: BLOOD SPECIMENOrdering Facility: [facility] Address: [address] [place], [place] [address] Performed By: #### 5 7021-8 ####[facility] [id number] [place] [address] [place] Neutrophils (Bld) [#/Vol] 7.35 10*3/uL Normal 1.45-7.50 [facility] Comment on above: Order Comment: Speci men Type: BLOOD SPECIMENOrdering Facility: [facility] Address: [address] [place] [address] Performed By: #### 5 7021-8 ####[facility] DAVISHORTENSIALIA [id number] [address] [place] Neutrophils/100 WBC (Bld) 71.7 % Normal [facility] Comment on above: Order Comment: Speci men Type: BLOOD SPECIMENOrdering Facility: [facility] Address: [address] [place] [address] Performed By: #### 5 7021-8 ####[facility] HOSPITALLALILIA [id number] [place] [address] [place] Nucleated RBC (Bld) [#/Vol] 10*3/uL Normal <0.01 [facility] Comment on above: Order Comment: Speci men Type: BLOOD SPECIMENOrdering Facility: [facility] Address: [address] [place] [address] Performed By: #### 5 7021-8 ####[facility] HOSPITALLI [id number] [place] [address] [place] Nucleated RBC/100 WBC (Bld) [Ratio] 0.0 /100 WBC Normal [facility] Comment on above: Order Comment: Speci men Type: BLOOD SPECIMENOrdering Facility: [facility] Address: [address] [place] [address] Performed By: #### 5 7021-8 ####[facility] HOSPITALLALILIA [id number] [place] [address] [place] Platelet mean volume (Bld) [Entitic vol] 9.6 fL Normal 9.0-12.7 [facility] Comment on above: Order Comment: Speci men Type: BLOOD SPECIMENOrdering Facility: [facility] Address: [address] [place] [address] Performed By: #### 5 7021-8 ####[facility] ERA [id number] [place] [address] [place] Platelets (Bld) [#/Vol] 242 10*3/uL Normal 150-400 [facility] Comment on above: Order Comment: Speci men Type: BLOOD SPECIMENOrdering Facility: [facility] Address: [address] [place] [address] Performed By: #### 5 7021-8 ####[facility] HOSPITALNCLIA [id number] [place] [address] [place] RBC (Bld) [#/Vol] 3.11 10*6/uL Low 3.90-5.20 [facility] Comment on above: Order Comment: Speci men Type: BLOOD SPECIMENOrdering Facility: [facility] Address: [address] [place] [address] Performed By: #### 5 7021-8 ####[facility] HOSPITALNCA [id number] [place] [address] [place] WBC (Bld) [#/Vol] 10.25 10*3/uL Normal 3.70-11.00 [facility] Comment on above: Order Comment: Speci men Type: BLOOD SPECIMENOrdering Facility: [facility] Address: [address] [place] [address] Performed By: #### 5 7021-8 ####[facility] HOSPITALLIA [id number] [place] [address] [place] Comprehensive metabolic 2000 panelon 03-05-2024 Albumin [Mass/Vol] 4.5 g/dL Normal 3.9-4.9 [facility] Comment on above: Order Comment: Speci men Type: BLOOD SPECIMENOrdering Facility: [facility] Address: [address] [place] [address] Performed By: #### 2 4323-8, 39249-4 ####[facility] HOSPITALNCLIA [id number] [place] [address] [place] ALP [Catalytic activity/Vol] 125 U/L High 34-123 [facility] Comment on above: Order Comment: Speci men Type: BLOOD SPECIMENOrdering Facility: [facility] Address: [address] [place] [address] Performed By: #### 2 4323-8, 94788-5 ####[facility] MILLTOWLALILIA [id number] [place] [address] [place] ALT [Catalytic activity/Vol] 46 U/L High 7-38 [facility] Comment on above: Order Comment: Speci men Type: BLOOD SPECIMENOrdering Facility: [facility] Address: [address] [place] [address] Performed By: #### 2 4323-8, 63368-5 ####[facility]OSPITALJordanNCLIA [id number] [place] [address] [place] Anion gap [Moles/Vol] 9 mmol/L Normal 8-15 [facility] Comment on above: Order Comment: Speci men Type: BLOOD SPECIMENOrdering Facility: [facility] Address: [address] [place] [address] Performed By: #### 2 4323-8, 58001-5 ####[facility] DAVISBERENICELIA [id number] [place] [address] [place] AST [Catalytic activity/Vol] 61 U/L High 13-35 [facility] Comment on above: Order Comment: Speci men Type: BLOOD SPECIMENOrdering Facility: [facility] Address: [address] [place] [address] Performed By: #### 2 4323-8, 02006-2 ####[facility] CENTERMARCIWNCLIA [id number] [place] [address] [place] Bilirubin [Mass/Vol] 0.3 mg/dL Normal 0.2-1.3 [facility] Comment on above: Order Comment: Speci men Type: BLOOD SPECIMENOrdering Facility: [facility] Address: [address] [place] [address] Performed By: #### 2 432-8, ####[facility] HOSPITALLALILIA [id number] [place] [address] [place] Calcium [Mass/Vol] 10.5 mg/dL High 8.5-10.2 [facility] Comment on above: Order Comment: Speci men Type: BLOOD SPECIMENOrdering Facility: [facility] Address: [address] [place] [address] Performed By: #### 2 432-8, ####[facility] [id number] [place] [address] [place] Chloride [Moles/Vol] 101 mmol/L Normal 98-107 [facility] Comment on above: Order Comment: Speci men Type: BLOOD SPECIMENOrdering Facility: [facility] Address: [address] [place] [address] Performed By: #### 2 4323-8, ####[facility] HOSPITALLIA [id number] [place] [address] [place] CO2 [Moles/Vol] 26 mmol/L Normal 22-30 [facility] Comment on above: Order Comment: Speci men Type: BLOOD SPECIMENOrdering Facility: [facility] Address: [address] [place] [address] Performed By: #### 2 4323-8, ####[facility] ERA [id number] [place] [address] [place] Creatinine [Mass/Vol] 1.37 mg/dL High 0.58-0.96 [facility] Comment on above: Order Comment: Speci men Type: BLOOD SPECIMENOrdering Facility: [facility] Address: [address] [place], [place] [address] Performed By: #### 2 4323-8, 46040-0 ####[facility] HOSPITALNCLIA [id number] [place] [address] [place] Creatinine and Glomerular filtration rate.predicted panel (S/P/Bld) 44 mL/min/1.73m??? Low >=60 [facility] Comment on above: Order Comment: [place] [employer] Type: BLOOD SPECIMENOrdering Facility: [facility] Address: [address] [place] [address] Result Comment: Ann mated Glomerular Filtration Rate (eGFR) is calculated using the 2020 CKD-EPI creatinine equation. This equation utilizes serum creatinine, sex, and age as parameters. The creatinine assay has traceable calibration to isotope dilution-mass spectrometry. Refer to KDIGO guidelines for clinical interpretation. In patients with unstable renal function, e.g. those with acute kidney injury, the eGFR may not accurately reflect actual GFR. Performed By: #### 2 4323-8, 62357-0 ####[facility] HOSPITALLIA [id number] [place] [address] [place] Glucose [Mass/Vol] 99 mg/dL Normal 74-99 [facility] Comment on above: Order Comment: [employer] [employer] Type: BLOOD SPECIMENOrdering Facility: [facility] Address: [address] [place] [address] Result Comment: The [place] [employer] (ADA) provides guidance for cutoff values for fasting glucose and random glucose. The ADA defines fasting as no caloric intake for at least 8 hours. Fasting plasma glucose results between 100 to 125 mg/dL indicate increased risk for diabetes (prediabetes).Fasting plasma glucose results greater than or equal to 126 mg/dL meet the criteria for diagnosis of diabetes. In the absence of unequivocal hyperglycemia, results should be confirmed by repeat testing. In a patient with classic symptoms of hyperglycemia or hyperglycemic crisis, random plasma glucose results greater than or equal to 200 mg/dL meet the criteria for diagnosis of diabetes.Reference: Standards of Medical Care in Diabetes 2016, [place] [employer]. Diabetes Care. 2016.39(Suppl 1). Performed By: #### 2 4323-8, 51551-2 ####[facility] KARILALITHIAGOIzabella [id number] [place] [address] [place] Potassium [Moles/Vol] 4.4 mmol/L Normal 3.7-5.1 [facility] Comment on above: Order Comment: Speci men Type: BLOOD SPECIMENOrdering Facility: [facility] Address: [address] [place] [address] Performed By: #### 2 4323-8, 90366-6 ####[facility] HOSPITALTARIQ [id number] [place] [address] [place] Protein [Mass/Vol] 7.9 g/dL Normal 6.3-8.0 [facility] Comment on above: Order Comment: Speci men Type: BLOOD SPECIMENOrdering Facility: [facility] Address: [address] [place] [address] Performed By: #### 2 4323-8, 43846-1 ####[facility] HOSPITALVIETA [id number] [place] [address] [place] Sodium [Moles/Vol] 136 mmol/L Normal 136-144 [facility] Comment on above: Order Comment: Speci men Type: BLOOD SPECIMENOrdering Facility: [facility] Address: [address] [place] [address] Performed By: #### 2 432-8, ####[facility] HOSPITALTARIQ [id number] [place] [address] [place] Urea nitrogen [Mass/Vol] 24 mg/dL High 7-21 [facility] Comment on above: Order Comment: Speci men Type: BLOOD SPECIMENOrdering Facility: [facility] Address: [address] [place] [address] Performed By: #### 2 4323-8, 70703-7 ####[facility] MILLTOWNCLIA [id number] [place] [address] [place] Magnesium SerPl-mCncon 03-05 Magnesium [Mass/Vol] 1.5 mg/dL Low 1.7-2.3 [facility] Comment on above: Order Comment: Speci men Type: BLOOD SPECIMENOrdering Facility: [facility] Address: [address] [place] [address] Performed By: #### 2 4323-8, 16065-3 ####[facility] MILLWNCLIA [id number] [place] [address] [place] CBC W Auto Differential pane l (Bld)on 03-03-2024 Basophils (Bld) [#/Vol] 0.00 10*3/uL Normal <0.11 [facility] Comment on above: Order Comment: Speci men Type: BLOOD SPECIMENOrdering Facility: [facility] Address: [address] [place] [address] Performed By: #### 5 7021-8 ####[facility] HOSPITALLALIA [id number] [address] LABORATORYCLIA [id number] [place] [address] [place] Basophils/100 WBC (Bld) 0.0 % Normal [facility] Comment on above: Order Comment: Speci men Type: BLOOD SPECIMENOrdering Facility: [facility] Address: [address] [place] [address] Performed By: #### 5 7021-8 ####[facility] ERA [id number] [address] LABORATORYCLIA [id number] [place] [address] [place] [facility] Differential cell count method Nom (Bld) Manual Normal [facility] Comment on above: Order Comment: Speci men Type: BLOOD SPECIMENOrdering Facility: [facility] Address: [address] [place] [address] Performed By: #### 5 7021-8 ####[facility] REHABILITATIONDIANA CANNONTOWNCLIA [id number] [address] LABORATORYCLIA [id number] [place] [address] [place] Eosinophils (Bld) [#/Vol] 0.19 10*3/uL Normal <0.46 [facility] Comment on above: Order Comment: Speci men Type: BLOOD SPECIMENOrdering Facility: [facility] Address: [address] [place] [address] Performed By: #### 5 7021-8 ####[facility] DAVISWNCLIA [id number] [address] LABORATORYCLIA [id number] [place] [address] [place] Eosinophils/100 WBC (Bld) 2.0 % Normal [facility] Comment on above: Order Comment: Speci men Type: BLOOD SPECIMENOrdering Facility: [facility] Address: [address] [place] [address] Performed By: #### 5 7021-8 ####[facility] RANJITHWNCLIA [id number] [address] LABORATORYCLIA [id number] [place] [address] [place] Erythrocyte distribution width (RBC) [Ratio] 16.2 % High 11.5-15.0 [facility] Comment on above: Order Comment: Speci men Type: BLOOD SPECIMENOrdering Facility: [facility] Address: [address] [place] [address] Performed By: #### 5 7021-8 ####[facility] MILLWNCLIA [id number] [address] LABORATORYCLIA [id number] [place] [address] [place] Hematocrit (Bld) [Volume fraction] 30.9 % Low 36.0-46.0 [facility] Comment on above: Order Comment: Speci men Type: BLOOD SPECIMENOrdering Facility: [facility] Address: [address] [place] [address] Performed By: #### 5 7021-8 ####[facility] HOSPITALWVTLIA [id number] [address] LABORATORYIA [id number] [place] [address] [place] Hemoglobin (Bld) [Mass/Vol] 10.8 g/dL Low 11.5-15.5 [facility] Comment on above: Order Comment: Speci men Type: BLOOD SPECIMENOrdering Facility: [facility] Address: [address] [place] [address] Performed By: #### 5 7021-8 ####[facility] HOSPITALLIA [id number] [address] LABORATORYCLIA [id number] [place] [address] [place] Lymphocytes (Bld) [#/Vol] 2.02 10*3/uL Normal 1.00-4.00 [facility] Comment on above: Order Comment: Speci men Type: BLOOD SPECIMENOrdering Facility: [facility] Address: [address] [place] [address] Performed By: #### 5 7021-8 ####[facility] HOSPITALNCLIA [id number] [address] LABORATORYIA [id number] [place] [address] [place] Lymphocytes/100 WBC (Bld) 21.0 % Normal [facility] Comment on above: Order Comment: Speci men Type: BLOOD SPECIMENOrdering Facility: [facility] Address: [address] [place] [address] Performed By: #### 5 7021-8 ####[facility] HOSPITALLI [id number] [address] LABORATORYCLIA [id number] [place] [address] [place] MCH (RBC) [Entitic mass] 32.0 pg Normal 26.0-34.0 [facility] Comment on above: Order Comment: Speci men Type: BLOOD SPECIMENOrdering Facility: [facility] Address: [address] [place] [address] Performed By: #### 5 7021-8 ####[facility] [id number] [address] LABORATORYCLIA [id number] [place] [address] [place] MCHC (RBC) [Mass/Vol] 35.0 g/dL Normal 30.5-36.0 [facility] Comment on above: Order Comment: Speci men Type: BLOOD SPECIMENOrdering Facility: [facility] Address: [address] [place] [address] Performed By: #### 5 7021-8 ####[facility] [id number] [address] LABORATORYIA [id number] [address] STATES OF [facility] MCV (RBC) [Entitic vol] 91.7 fL Normal 80.0-100.0 [facility] Comment on above: Order Comment: Speci men Type: BLOOD SPECIMENOrdering Facility: [facility] Address: [address] [place] [address] Performed By: #### 5 7021-8 ####[facility] MILLTOWNCLIA [id number] [address] LABORATORYCLIA [id number] [place] [address] [place] Metamyelocytes/100 WBC (Bld) 3.0 % Normal [facility] Comment on above: Order Comment: Speci men Type: BLOOD SPECIMENOrdering Facility: [facility] Address: [address] [place] [address] Performed By: #### 5 7021-8 ####[facility] MILLTOWNCLIA [id number] [address] LABORATORYCLIA [id number] [place] [address] [place] Monocytes (Bld) [#/Vol] 0.87 10*3/uL High <0.87 [facility] Comment on above: Order Comment: Speci men Type: BLOOD SPECIMENOrdering Facility: [facility] Address: [address] [place] [address] Performed By: #### 5 7021-8 ####[facility] MILLTOWNCLIA [id number] [address] LABORATORYCLIA [id number] [place] [address] [place] Monocytes/100 WBC (Bld) 9.0 % Normal [facility] Comment on above: Order Comment: Speci men Type: BLOOD SPECIMENOrdering Facility: [facility] Address: [address] [place] [address] Performed By: #### 5 7021-8 ####[facility] MILLTOWNCLIA [id number] [address] LABORATORYCLIA [id number] [place] [address] [place] MYELO% 2.0 % Normal [facility] Comment on above: Order Comment: Speci men Type: BLOOD SPECIMENOrdering Facility: [facility] Address: [address] [place] [address] Performed By: #### 5 7021-8 ####[facility] MILLTOWNCLIA [id number] [address] LABORATORYCLIA [id number] [place] [address] [place] Neutrophils (Bld) [#/Vol] 6.07 10*3/uL Normal 1.45-7.50 [facility] Comment on above: Order Comment: Speci men Type: BLOOD SPECIMENOrdering Facility: [facility] Address: [address] [place] [address] Performed By: #### 5 7021-8 ####[facility] HOSPITALWNCLIA [id number] [address] LABORATORYCLIA [id number] [place] [address] [place] Neutrophils/100 WBC (Bld) 63.0 % Normal [facility] Comment on above: Order Comment: Speci men Type: BLOOD SPECIMENOrdering Facility: [facility] Address: [address] [place] [address] Performed By: #### 5 7021-8 ####[facility] HOSPITALWNCLIA [id number] [address] LABORATORYCLIA [id number] [place] [address] [place] Nucleated RBC (Bld) [#/Vol] 10*3/uL Normal <0.01 [facility] Comment on above: Order Comment: Speci men Type: BLOOD SPECIMENOrdering Facility: [facility] Address: [address] [place] [address] Performed By: #### 5 7021-8 ####[facility] MILLTOWNCLIA [id number] [address] LABORATORYCLIA [id number] [place] [address] [place] Nucleated RBC/100 WBC (Bld) [Ratio] 0.0 /100 WBC Normal [facility] Comment on above: Order Comment: Speci men Type: BLOOD SPECIMENOrdering Facility: [facility] Address: [address] [place] [address] Performed By: #### 5 7021-8 ####[facility] HOSPITALWLALILIA [id number] [address] LABORATORYIA [id number] [place] [address] [place] Platelet mean volume (Bld) [Entitic vol] 9.7 fL Normal 9.0-12.7 [facility] Comment on above: Order Comment: Speci men Type: BLOOD SPECIMENOrdering Facility: [facility] Address: [address] [place] [address] Performed By: #### 5 7021-8 ####[facility] HOSPITALWNCLIA [id number] [address] LABORATORYCLIA [id number] [place] [address] [place] Platelets (Bld) [#/Vol] 289 10*3/uL Normal 150-400 [facility] Comment on above: Order Comment: Speci men Type: BLOOD SPECIMENOrdering Facility: [facility] Address: [address] [place] [address] Performed By: #### 5 7021-8 ####[facility] MILLTOWNCLIA [id number] [address] LABORATORYCLIA [id number] [place] [address] [place] Platelets Estimate (Bld) [#/Vol] Adequate Normal [facility] Comment on above: Order Comment: Speci men Type: BLOOD SPECIMENOrdering Facility: [facility] Address: [address] [place] [address] Performed By: #### 5 7021-8 ####[facility] HOSPITALNCLIA [id number] [address] LABORATORYCLIA [id number] [place] [address] [place] RBC (Bld) [#/Vol] 3.37 10*6/uL Low 3.90-5.20 [facility] Comment on above: Order Comment: Speci men Type: BLOOD SPECIMENOrdering Facility: [facility] Address: [address] [place] [address] Performed By: #### 5 7021-8 ####[facility] HOSPITALLIA [id number] [address] LABORATORYCLIA [id number] [address] [employer] MORPH Reviewed: unremarkable Normal [facility] Comment on above: Order Comment: Speci men Type: BLOOD SPECIMENOrdering Facility: [facility] Address: [address] [place] [address] Performed By: #### 5 7021-8 ####[facility] HOSPITALNCLIA [id number] [address] LABORATORYCLIA [id number] [address] OF [facility] WBC (Bld) [#/Vol] 9.64 10*3/uL Normal 3.70-11.00 [facility] Comment on above: Order Comment: Speci men Type: BLOOD SPECIMENOrdering Facility: [facility] Address: [address] [place] [address] Performed By: #### 5 7021-8 ####[facility] DAVISBERENICELIA [id number] [address] LABORATORYCLIA [id number] [place] [address] [place] WBC Left Shift Ql (Bld) Present Normal [facility] Comment on above: Order Comment: Speci men Type: BLOOD SPECIMENOrdering Facility: [facility] Address: [address] [place] [address] Performed By: #### 5 7021-8 ####[facility] HOSPITALLALILIA [id number] [address] LABORATORYCLIA [id number] [place] [address] [place] CNPNon 03-03-2024 CNPN Normal [facility] Comprehensive metabolic 2000 panelon 03-03-2024 Albumin [Mass/Vol] 4.6 g/dL Normal 3.9-4.9 [facility] Comment on above: Order Comment: Speci men Type: BLOOD SPECIMENOrdering Facility: [facility] Address: [address] [place] [address] Performed By: #### 1 9123-9, 17849-5 ####[facility] HOSPITALLALIA [id number] [place] [address] [place] ALP [Catalytic activity/Vol] 132 U/L High 34-123 [facility] Comment on above: Order Comment: Speci men Type: BLOOD SPECIMENOrdering Facility: [facility] Address: [address] [place] [address] Performed By: #### 1 9123-9, 92724-5 ####[facility] HOSPITALNCLIA [id number] [place] [address] [place] ALT [Catalytic activity/Vol] 38 U/L Normal 7-38 [facility] Comment on above: Order Comment: Speci men Type: BLOOD SPECIMENOrdering Facility: [facility] Address: [address] [place] [address] Performed By: #### 1 9123-9, 99538-4 ####[facility] HOSPITALNCLIA [id number] [place] [address] [place] Anion gap [Moles/Vol] 12 mmol/L Normal 8-15 [facility] Comment on above: Order Comment: Speci men Type: BLOOD SPECIMENOrdering Facility: [facility] Address: [address] [place] [address] Performed By: #### 1 9123-9, 94658-7 ####[facility] HOSPITALNCUNIVERSITY [facility] [id number] [place] [address] [place] AST [Catalytic activity/Vol] 44 U/L High 13-35 [facility] Comment on above: Order Comment: Speci men Type: BLOOD SPECIMENOrdering Facility: [facility] Address: [address] [place] [address] Performed By: #### 1 9123-9, 59960-8 ####[facility] ERA [id number] [place] [address] [place] Bilirubin [Mass/Vol] 0.3 mg/dL Normal 0.2-1.3 [facility] Comment on above: Order Comment: Speci men Type: BLOOD SPECIMENOrdering Facility: [facility] Address: [address] [place] [address] Performed By: #### 1 9123-9, 36286-6 ####[facility] HOSPITALNCLIA [id number] [place] [address] [place] Calcium [Mass/Vol] 11.3 mg/dL High 8.5-10.2 [facility] Comment on above: Order Comment: Speci men Type: BLOOD SPECIMENOrdering Facility: [facility] Address: [address] [place] [address] Performed By: #### 1 9123-9, 45076-8 ####[facility] WESLEY PLASENCIA [id number] [place] [address] [place] Chloride [Moles/Vol] 96 mmol/L Low 98-107 [facility] Comment on above: Order Comment: Speci men Type: BLOOD SPECIMENOrdering Facility: [facility] Address: [address] [place] [address] Performed By: #### 1 9123-9, 61856-7 ####[facility] HOSPITALTARIQ [id number] [place] [address] [place] CO2 [Moles/Vol] 28 mmol/L Normal 22-30 [facility] Comment on above: Order Comment: Speci men Type: BLOOD SPECIMENOrdering Facility: [facility] Address: [address] [place] [address] Performed By: #### 1 9123-9, 88942-5 ####[facility] HOSPITALTHIAGOA [id number] [place] [address] [place] Creatinine [Mass/Vol] 1.55 mg/dL High 0.58-0.96 [facility] Comment on above: Order Comment: Speci men Type: BLOOD SPECIMENOrdering Facility: [facility] Address: [address] [place] [address] Performed By: #### 1 9123-9, 42548-0 ####[facility] HOSPITALNCLIA [id number] [place] [address] [place] Creatinine and Glomerular filtration rate.predicted panel (S/P/Bld) 38 mL/min/1.73m??? Low >=60 [facility] Comment on above: Order Comment: Speci men Type: BLOOD SPECIMENOrdering Facility: [facility] Address: [address] [place] [address] Result Comment: Ann mated Glomerular Filtration Rate (eGFR) is calculated using the 2020 CKD-EPI creatinine equation. This equation utilizes serum creatinine, sex, and age as parameters. The creatinine assay has traceable calibration to isotope dilution-mass spectrometry. Refer to KDIGO guidelines for clinical interpretation. In patients with unstable renal function, e.g. those with acute kidney injury, the eGFR may not accurately reflect actual GFR. Performed By: #### 1 9123-9, 07229-6 ####[facility] [id number] [place] [address] [place] Glucose [Mass/Vol] 110 mg/dL High 74-99 [facility] Comment on above: Order Comment: [place] sales Type: BLOOD SPECIMENOrdering Facility: [facility] Address: [address] [place] [address] Result Comment: The [place] Diabetes [employer] (ADA) provides guidance for cutoff values for fasting glucose and random glucose. The ADA defines fasting as no caloric intake for at least 8 hours. Fasting plasma glucose results between 100 to 125 mg/dL indicate increased risk for diabetes (prediabetes).Fasting plasma glucose results greater than or equal to 126 mg/dL meet the criteria for diagnosis of diabetes. In the absence of unequivocal hyperglycemia, results should be confirmed by repeat testing. In a patient with classic symptoms of hyperglycemia or hyperglycemic crisis, random plasma glucose results greater than or equal to 200 mg/dL meet the criteria for diagnosis of diabetes.Reference: Standards of Medical Care in Diabetes 2016, [place] [employer]. Diabetes Care. 2016.39(Suppl 1). Performed By: #### 1 9123-9, 06530-3 ####[facility] [id number] [place] [address] [place] Potassium [Moles/Vol] 4.1 mmol/L Normal 3.7-5.1 [facility] Comment on above: Order Comment: Mdeina men Type: BLOOD SPECIMENOrdering Facility: [facility] Address: [address] [place] [address] Performed By: #### 1 9123-9, 00147-4 ####[facility] MILLTOWNCLIA [id number] [place] [address] [place] Protein [Mass/Vol] 8.2 g/dL High 6.3-8.0 [facility] Comment on above: Order Comment: Speci men Type: BLOOD SPECIMENOrdering Facility: [facility] Address: [address] [place] [address] Performed By: #### 1 9123-9, 08673-7 ####[facility] MILLFARMVILLENCLIA [id number] [place] [address] [place] Sodium [Moles/Vol] 136 mmol/L Normal 136-144 [facility] Comment on above: Order Comment: Speci men Type: BLOOD SPECIMENOrdering Facility: [facility] Address: [address] [place] [address] Performed By: #### 1 9123-9, 76841-2 ####[facility] HOSPITALLIA [id number] [place] [address] [place] Urea nitrogen [Mass/Vol] 27 mg/dL High 7-21 [facility] Comment on above: Order Comment: Speci men Type: BLOOD SPECIMENOrdering Facility: [facility] Address: [address] [place] [address] Performed By: #### 1 9123-9, 37007-9 ####[facility] HOSPITALNCLIA [id number] [place] [address] [place] Magnesium SerPl-mCncon 03-03 Magnesium [Mass/Vol] 1.4 mg/dL Low 1.7-2.3 [facility] Comment on above: Order Comment: Speci men Type: BLOOD SPECIMENOrdering Facility: [facility] Address: [address] [place] [address] Performed By: #### 1 9123-9, 76906-1 ####[facility] REHABILITATIONOSTER MILLST. VINCENT WILLIAMSPORT HOSPITALLIA [id number] [place] [address] [place] PTH-Intact SerPl-ncon 02-06 Parathyrin.intact [Mass/Vol] 40 pg/mL Normal 15-65 [facility] Comment on above: Order Comment: Speci men Type: BLOOD SPECIMENOrdering Facility: [facility] Address: [address] [place] [address] Performed By: #### 2 731-8 ####[facility] LABCLIA [id number] [place] [address] [place] Urinalysis complete panel (U )on 03-03-2024 Bacteria LM.HPF (Urine sed) [#/Area] Negative Normal Negative [facility] Comment on above: Order Comment: Speci men Type: URINE SPECIMENOrdering Facility: [facility] Address: [address] [place] [address] Performed By: #### 2 4356-8 ####[facility] LABIA [id number] [place] [address] [place] Bilirubin Ql (U) Negative Normal Negative [facility] Comment on above: Order Comment: Speci men Type: URINE SPECIMENOrdering Facility: [facility] Address: [address] [place] [address] Performed By: #### 2 4356-8 ####[facility] LABCLIA [id number] [place] [address] [place] Clarity (Unsp spec) Clear Normal Clear [facility] Comment on above: Order Comment: Speci men Type: URINE SPECIMENOrdering Facility: [facility] Address: [address] [place] [address] Performed By: #### 2 4356-8 ####[facility] LABCLIA [id number] [place] [address] [place] Color (U) Yellow Normal Yellow [facility] Comment on above: Order Comment: Speci men Type: URINE SPECIMENOrdering Facility: [facility] Address: [address] [place] [address] Performed By: #### 2 4356-8 ####[facility] LABCLIA [id number] [place] [address] [place] Epithelial cells LM.HPF (Urine sed) [#/Area] None Seen Normal [facility] Comment on above: Order Comment: Speci men Type: URINE SPECIMENOrdering Facility: [facility] Address: [address] [place] [address] Performed By: #### 2 4356-8 ####[facility] LABCLIA [id number] [place] [address] [place] Glucose Test strip (U) [Mass/Vol] Negative Normal Negative [facility] Comment on above: Order Comment: Speci men Type: URINE SPECIMENOrdering Facility: [facility] Address: [address] [place] [address] Performed By: #### 2 4356-8 ####[facility] LABCLIA [id number] [place] [address] [place] Hemoglobin Ql (U) Negative Normal Negative [facility] Comment on above: Order Comment: Speci men Type: URINE SPECIMENOrdering Facility: [facility] Address: [address] [place] [address] Performed By: #### 2 4356-8 ####[facility] LABCLIA [id number] [place] [address] [place] Hyaline casts (Urine sed) [#/Area] 1-3 /LPF Abnormal 0 /LPF [facility] Comment on above: Order Comment: Speci men Type: URINE SPECIMENOrdering Facility: [facility] Address: [address] [place] [address] Performed By: #### 2 4356-8 ####[facility] LABCLIA [id number] [place] [address] [place] Ketones Ql (U) Negative Normal Negative [facility] Comment on above: Order Comment: Speci men Type: URINE SPECIMENOrdering Facility: [facility] Address: [address] [place] [address] Performed By: #### 2 4356-8 ####[facility] LABCLIA [id number] [place] [address] [place] Leukocyte esterase Test strip Ql (U) 1+ Abnormal Negative [facility] Comment on above: Order Comment: Speci men Type: URINE SPECIMENOrdering Facility: [facility] Address: [address] [place] [address] Performed By: #### 2 4356-8 ####[facility] LABCLIA [id number] [place] [address] [place] Nitrite Ql (U) Negative Normal Negative [facility] Comment on above: Order Comment: Speci men Type: URINE SPECIMENOrdering Facility: [facility] Address: [address] [place] [address] Performed By: #### 2 4356-8 ####[facility] LABCLIA [id number] [place] [address] [place] pH (U) 6.0 [pH] Normal <8.5 [facility] Comment on above: Order Comment: Speci men Type: URINE SPECIMENOrdering Facility: [facility] Address: [address] [place] [address] Performed By: #### 2 4356-8 ####[facility] LABCLIA [id number] [place] [address] [place] Protein (U) [Mass/Vol] Negative Normal Negative [facility] Comment on above: Order Comment: Speci men Type: URINE SPECIMENOrdering Facility: [facility] Address: [address] [place] [address] Performed By: #### 2 4356-8 ####[facility] LABIA [id number] [place] [address] [place] RBC LM.HPF (Urine sed) [#/Area] 0-2 /HPF Normal 0-2 /HPF [facility] Comment on above: Order Comment: Speci men Type: URINE SPECIMENOrdering Facility: [facility] Address: [address] [place] [address] Performed By: #### 2 4356-8 ####[facility] LABIA [id number] [place] [address] [place] Specific gravity (U) [Rel density] 1.009 Normal 1.005-1.030 [facility] Comment on above: Order Comment: Speci men Type: URINE SPECIMENOrdering Facility: [facility] Address: [address] [place] [address] Performed By: #### 2 4356-8 ####[facility]ENTERIA [id number] [place] [address] [place] Urobilinogen Ql (U) 0.2 EU/dL Normal 0.2-1.0 EU/dL [facility] Comment on above: Order Comment: Speci men Type: URINE SPECIMENOrdering Facility: [facility] Address: [address] [place] [address] Performed By: #### 2 4356-8 ####[facility] LABIA [id number] [place] [address] [place] WBC LM.HPF (Urine sed) [#/Area] 6-10 /HPF Abnormal 0-5 /HPF [facility] Comment on above: Order Comment: Speci men Type: URINE SPECIMENOrdering Facility: [facility] Address: [address] [place] [address] Performed By: #### 2 4356-8 ####[facility] LABIA [id number] [place] [address] [place] CNOVSPon 02-20-2024 CNOVSP Normal [facility] CNPNon 02-20-2024 CNPN Normal [facility] CNPNon 02-18-2024 CNPN Normal [facility] CREATININE BLDon 02-12-2024 Creatinine [Mass/Vol] 1.32 mg/dL High 0.58-0.96 [facility] Comment on above: Order Comment: Speci men Type: BLOOD SPECIMENOrdering Facility: [facility] Address: [address] [place] [address] Performed By: #### C RET1 ####[facility] [id number] [address] [facility] Creatinine and Glomerular filtration rate.predicted panel (S/P/Bld) 46 mL/min/1.73m??? Low >=60 [facility] Comment on above: Order Comment: Speci men Type: BLOOD SPECIMENOrdering Facility: [facility] Address: [address] [place] [address] Result Comment: Ann mated Glomerular Filtration Rate (eGFR) is calculated using the 2020 CKD-EPI creatinine equation. This equation utilizes serum creatinine, sex, and age as parameters. The creatinine assay has traceable calibration to isotope dilution-mass spectrometry. Refer to KDIGO guidelines for clinical interpretation. In patients with unstable renal function, e.g. those with acute kidney injury, the eGFR may not accurately reflect actual GFR. Performed By: #### C RET1 ####[facility] [id number] [place] [address] [place] ABD/PEL WO IVCONon 2024 CT ABD/PEL WO IVCON Normal [facility] CT Abdomen and Pelvis WO con traston 02-12-2024 IMPRESSION: No acute process within the abdomen or pelvis. Again seen are changes of the gallbladder suspicious for benign adenomyomatosis as seen on prior MRI of 06/22/2023. Acute Care Nurse: BAYLEE Transcribe Date/Time: Feb 12 2024 2:09P Dictated by : PARISH SONI MD This examination was interpreted and the report reviewed and electronically signed by: PARISH SONI MD on Feb 12 2024 2:21PM [facility] DIVISION OF RADIOLOGY * * *Final Report* * * DATE OF EXAM: Feb 12 2024 12:08PM [facility] 0531 - CT ABD/PEL WO IVCON / PROCEDURE REASON: Non-small cell cancer of right lung (HCC) * * * * Physician Interpretation * * * * EXAMINATION: CT ABDOMEN AND PELVIS WITHOUT IV CONTRAST CLINICAL HISTORY: Non-small cell right lung cancer TECHNIQUE: Non-IV contrast imaging of the abdomen and pelvis was performed using standard technique, scanning from just above the dome of the diaphragm to the symphysis pubis. Unenhanced imaging is limited for the evaluation of some intra-abdominal and pelvic pathology. MQ: CTAPWO_3 Contrast: IV: None Oral: 10 ml of Omni 240 10-25ml diluted with water CT Radiation dose: Integrated Dose-length product (DLP) for this visit = 1038 mGy*cm. CT Dose Reduction Employed: Automated exposure control(AEC) and iterative recon COMPARISON: None. RESULT: Abdomen / Pelvis: Liver: Unremarkable. Biliary: No biliary dilatation. The gallbladder is somewhat contracted. As is seen on MRI of 06/22/2023 there is a low-attenuation mural structure along the anterior aspect of the fundus suspicious for adenomyomatosis. Spleen: No splenomegaly. Pancreas: Unremarkable. Adrenals: No mass. Kidneys: No calculus, hydronephrosis or finding to suggest a cyst or mass in the unenhanced kidney. GI Tract: No bowel dilation. Lymph Nodes: No lymphadenopathy. Mesentery/peritoneum: No ascites. Retroperitoneum: No mass. Vasculature: No abdominal aortic or iliac artery aneurysm. Pelvis: No mass or ascites. Bones/Soft Tissues: No acute abnormality. Lower thorax: Unremarkable. Localizer images: No additional findings. DIVISION OF RADIOLOGY Provider, [facility] - 02/12/2024 * * *Final Report* * * DATE OF EXAM: Feb 12 2024 12:08PM [facility] 0531 - CT ABD/PEL WO IVCON / PROCEDURE REASON: Non-small cell cancer of right lung (HCC) * * * * Physician Interpretation * * * * EXAMINATION: CT ABDOMEN AND PELVIS WITHOUT IV CONTRAST CLINICAL HISTORY: Non-small cell right lung cancer TECHNIQUE: Non-IV contrast imaging of the abdomen and pelvis was performed using standard technique, scanning from just above the dome of the diaphragm to the symphysis pubis. Unenhanced imaging is limited for the evaluation of some intra-abdominal and pelvic pathology. MQ: CTAPWO_3 Contrast: IV: None Oral: 10 ml of Omni 240 10-25ml diluted with water CT Radiation dose: Integrated Dose-length product (DLP) for this visit = 1038 mGy*cm. CT Dose Reduction Employed: Automated exposure control(AEC) and iterative recon COMPARISON: None. RESULT: Abdomen / Pelvis: Liver: Unremarkable. Biliary: No biliary dilatation. The gallbladder is somewhat contracted. As is seen on MRI of 06/22/2023 there is a low-attenuation mural structure along the anterior aspect of the fundus suspicious for adenomyomatosis. Spleen: No splenomegaly. Pancreas: Unremarkable. Adrenals: No mass. Kidneys: No calculus, hydronephrosis or finding to suggest a cyst or mass in the unenhanced kidney. GI Tract: No bowel dilation. Lymph Nodes: No lymphadenopathy. Mesentery/peritoneum: No ascites. Retroperitoneum: No mass. Vasculature: No abdominal aortic or iliac artery aneurysm. Pelvis: No mass or ascites. Bones/Soft Tissues: No acute abnormality. Lower thorax: Unremarkable. Localizer images: No additional findings. IMPRESSION IMPRESSION: No acute process within the abdomen or pelvis. Again seen are changes of the gallbladder suspicious for benign adenomyomatosis as seen on prior MRI of 06/22/2023. Acute Care Nurse: [facility] Transcribe Date/Time: Feb 12 2024 2:09P Dictated by : PARISH SONI MD This examination was interpreted and the report reviewed and electronically signed by: PARISH SONI MD on Feb 12 2024 2:21PM EST [facility] Radiology Study observation (narrative) [facility] CT Abdomen and Pelvis WO con trastOrdered By: Ccf Provider on 02-12-[address] [facility] [address] CHEST WO IVCONon 02-11-19 CT CHEST WO IVCON Normal [facility] CBC W Auto Differential pane l (Bld)on 02-11-2024 Basophils (Bld) [#/Vol] 0.08 10*3/uL Normal <0.11 [facility] Comment on above: Order Comment: Speci men Type: BLOOD SPECIMENOrdering Facility: [facility] Address: [address] [place] [address] Performed By: #### 5 7021-8 ####[facility] MILLWNCLIA [id number] [place] [address] [place] Basophils/100 WBC (Bld) 0.9 % Normal [facility] Comment on above: Order Comment: Speci men Type: BLOOD SPECIMENOrdering Facility: [facility] Address: [address] [place] [address] Performed By: #### 5 7021-8 ####[facility]ITALWNCLIA [id number] [place] [address] [place] Differential cell count method Nom (Bld) Auto Normal [facility] Comment on above: Order Comment: Speci men Type: BLOOD SPECIMENOrdering Facility: [facility] Address: [address] [place] [address] Performed By: #### 5 7021-8 ####[facility] MILLWNCLIA [id number] [place] [address] [place] Eosinophils (Bld) [#/Vol] 0.25 10*3/uL Normal <0.46 [facility] Comment on above: Order Comment: Speci men Type: BLOOD SPECIMENOrdering Facility: [facility] Address: [address] [place] [address] Performed By: #### 5 7021-8 ####[facility] MILLTOWNCLIA [id number] [place] [address] [place] Eosinophils/100 WBC (Bld) 2.8 % Normal [facility] Comment on above: Order Comment: Speci men Type: BLOOD SPECIMENOrdering Facility: [facility] Address: [address] [place] [address] Performed By: #### 5 7021-8 ####[facility] MILLTOWNCLIA [id number] [place] [address] [place] Erythrocyte distribution width (RBC) [Ratio] 14.5 % Normal 11.5-15.0 [facility] Comment on above: Order Comment: Speci men Type: BLOOD SPECIMENOrdering Facility: [facility] Address: [address] [place] [address] Performed By: #### 5 7021-8 ####[facility] HOSPITALTARIQ [id number] [place] [address] [place] Hematocrit (Bld) [Volume fraction] 32.4 % Low 36.0-46.0 [facility] Comment on above: Order Comment: Speci men Type: BLOOD SPECIMENOrdering Facility: [facility] Address: [address] [place] [address] Performed By: #### 5 7021-8 ####[facility] HOS[facility]ITALTARIQ [id number] [place] [address] [place] Hemoglobin (Bld) [Mass/Vol] 11.4 g/dL Low 11.5-15.5 [facility] Comment on above: Order Comment: Speci men Type: BLOOD SPECIMENOrdering Facility: [facility] Address: [address] [place] [address] Performed By: #### 5 7021-8 ####[facility] H[facility]ITALT[facility] [id number] [place] [address] [place] Immature granulocytes (Bld) [#/Vol] 0.10 10*3/uL High <0.10 [facility] Comment on above: Order Comment: Speci men Type: BLOOD SPECIMENOrdering Facility: [facility] Address: [address] [place] [address] Performed By: #### 5 7021-8 ####[facility] H[facility]ITALNCLIA [id number] [place] [address] [place] Immature granulocytes/100 WBC (Bld) 1.1 % Normal [facility] Comment on above: Order Comment: Speci men Type: BLOOD SPECIMENOrdering Facility: [facility] Address: [address] [place] [address] Performed By: #### 5 7021-8 ####[facility] [id number] [place] [address] [place] Lymphocytes (Bld) [#/Vol] 1.42 10*3/uL Normal 1.00-4.00 [facility] Comment on above: Order Comment: Speci men Type: BLOOD SPECIMENOrdering Facility: [facility] Address: [address] [place] [address] Performed By: #### 5 7021-8 ####[facility] [id number] [place] [address] [place] Lymphocytes/100 WBC (Bld) 15.7 % Normal [facility] Comment on above: Order Comment: Speci men Type: BLOOD SPECIMENOrdering Facility: [facility] Address: [address] [place] [address] Performed By: #### 5 7021-8 ####[facility] [id number] [place] [address] [place] MCH (RBC) [Entitic mass] 31.7 pg Normal 26.0-34.0 [facility] Comment on above: Order Comment: Speci men Type: BLOOD SPECIMENOrdering Facility: [facility] Address: [address] [place] [address] Performed By: #### 5 7021-8 ####[facility] [id number] [place] [address] [place] MCHC (RBC) [Mass/Vol] 35.2 g/dL Normal 30.5-36.0 [facility] Comment on above: Order Comment: Speci men Type: BLOOD SPECIMENOrdering Facility: [facility] Address: [address] [place] [address] Performed By: #### 5 7021-8 ####[facility] DAVISJordanNCLIA [id number] [place] [address] [place] MCV (RBC) [Entitic vol] 90.0 fL Normal 80.0-100.0 [facility] Comment on above: Order Comment: Speci men Type: BLOOD SPECIMENOrdering Facility: [facility] Address: [address] [place] [address] Performed By: #### 5 7021-8 ####[facility] HOSPITALNCA [id number] [place] [address] [place] Monocytes (Bld) [#/Vol] 0.72 10*3/uL Normal <0.87 [facility] Comment on above: Order Comment: Speci men Type: BLOOD SPECIMENOrdering Facility: [facility] Address: [address] [place] [address] Performed By: #### 5 7021-8 ####[facility] HOSPITALNCA [id number] [place] [address] [place] Monocytes/100 WBC (Bld) 8.0 % Normal [facility] Comment on above: Order Comment: Speci men Type: BLOOD SPECIMENOrdering Facility: [facility] Address: [address] [place] [address] Performed By: #### 5 7021-8 ####[facility]OSPITALLIA [id number] [place] [address] [place] Neutrophils (Bld) [#/Vol] 6.46 10*3/uL Normal 1.45-7.50 [facility] Comment on above: Order Comment: Speci men Type: BLOOD SPECIMENOrdering Facility: [facility] Address: [address] [place] [address] Performed By: #### 5 7021-8 ####[facility] HOSPITALNCA [id number] [place] [address] [place] Neutrophils/100 WBC (Bld) 71.5 % Normal [facility] Comment on above: Order Comment: Speci men Type: BLOOD SPECIMENOrdering Facility: [facility] Address: [address] [place] [address] Performed By: #### 5 7021-8 ####[facility] [id number] [place] [address] [place] Nucleated RBC (Bld) [#/Vol] 10*3/uL Normal <0.01 [facility] Comment on above: Order Comment: Speci men Type: BLOOD SPECIMENOrdering Facility: [facility] Address: [address] [place] [address] Performed By: #### 5 7021-8 ####[facility] [id number] [place] [address] [place] Nucleated RBC/100 WBC (Bld) [Ratio] 0.0 /100 WBC Normal [facility] Comment on above: Order Comment: Speci men Type: BLOOD SPECIMENOrdering Facility: [facility] Address: [address] [place] [address] Performed By: #### 5 7021-8 ####[facility] [id number] [place] [address] [place] Platelet mean volume (Bld) [Entitic vol] 9.9 fL Normal 9.0-12.7 [facility] Comment on above: Order Comment: Speci men Type: BLOOD SPECIMENOrdering Facility: [facility] Address: [address] [place] [address] Performed By: #### 5 7021-8 ####[facility] HOSPITALNCLI [id number] [place] [address] [place] Platelets (Bld) [#/Vol] 183 10*3/uL Normal 150-400 [facility] Comment on above: Order Comment: Speci men Type: BLOOD SPECIMENOrdering Facility: [facility] Address: [address] [place] [address] Performed By: #### 5 7021-8 ####[facility]ITALWNCLIA [id number] [place] [address] [place] RBC (Bld) [#/Vol] 3.60 10*6/uL Low 3.90-5.20 [facility] Comment on above: Order Comment: Speci men Type: BLOOD SPECIMENOrdering Facility: [facility] Address: [address] [place] [address] Performed By: #### 5 7021-8 ####[facility] H[facility]ITALNCLIA [id number] [place] [address] [place] WBC (Bld) [#/Vol] 9.03 10*3/uL Normal 3.70-11.00 [facility] Comment on above: Order Comment: Speci men Type: BLOOD SPECIMENOrdering Facility: [facility] Address: [address] [place] [address] Performed By: #### 5 7021-8 ####[facility] H[facility]ITALNCLIA [id number] [place] [address] [place] Comprehensive metabolic 2000 panelon 02-11-2024 Albumin [Mass/Vol] 4.3 g/dL Normal 3.9-4.9 [facility] Comment on above: Order Comment: Speci men Type: BLOOD SPECIMENOrdering Facility: [facility] Address: [address] [place] [address] Performed By: #### 2 4323-8, 60207-6 ####[facility]ITALNCLIA [id number] [place] [address] [place] ALP [Catalytic activity/Vol] 130 U/L High 34-123 [facility] Comment on above: Order Comment: Speci men Type: BLOOD SPECIMENOrdering Facility: [facility] Address: [address] [place] [address] Performed By: #### 2 4323-8, ####[facility] DOTSONA [id number] [place] [address] [place] ALT [Catalytic activity/Vol] 43 U/L High 7-38 [facility] Comment on above: Order Comment: Speci men Type: BLOOD SPECIMENOrdering Facility: [facility] Address: [address] [place] [address] Performed By: #### 2 4323-8, ####[facility] DAVISMACA [id number] [place] [address] [place] Anion gap [Moles/Vol] 11 mmol/L Normal 8-15 [facility] Comment on above: Order Comment: Speci men Type: BLOOD SPECIMENOrdering Facility: [facility] Address: [address] [place] [address] Performed By: #### 2 4323-8, ####[facility] DAVISMARCIWVIETA [id number] [place] [address] [place] AST [Catalytic activity/Vol] 48 U/L High 13-35 [facility] Comment on above: Order Comment: Speci men Type: BLOOD SPECIMENOrdering Facility: [facility] Address: [address] [place] [address] Performed By: #### 2 4323-8, ####[facility] DAVISMARCIWLALILIA [id number] [place] [address] [place] Bilirubin [Mass/Vol] 0.3 mg/dL Normal 0.2-1.3 [facility] Comment on above: Order Comment: Speci men Type: BLOOD SPECIMENOrdering Facility: [facility] Address: [address] [place] [address] Performed By: #### 2 4323-8, ####[facility] MILLTOWNCLIA [id number] [place] [address] [place] Calcium [Mass/Vol] 10.4 mg/dL High 8.5-10.2 [facility] Comment on above: Order Comment: Speci men Type: BLOOD SPECIMENOrdering Facility: [facility] Address: [address] [place] [address] Performed By: #### 2 4323-8, ####[facility] MILLTOWNCLIA [id number] [place] [address] [place] Chloride [Moles/Vol] 98 mmol/L Normal 98-107 [facility] Comment on above: Order Comment: Speci men Type: BLOOD SPECIMENOrdering Facility: [facility] Address: [address] [place] [address] Performed By: #### 2 432-8, ####[facility] HOSPITALLALILIA [id number] [place] [address] [place] CO2 [Moles/Vol] 28 mmol/L Normal 22-30 [facility] Comment on above: Order Comment: Speci men Type: BLOOD SPECIMENOrdering Facility: [facility] Address: [address] [place] [address] Performed By: #### 2 4328, ####[facility] MILLTOWNCLIA [id number] [place] [address] [place] Creatinine [Mass/Vol] 1.38 mg/dL High 0.58-0.96 [facility] Comment on above: Order Comment: Speci men Type: BLOOD SPECIMENOrdering Facility: [facility] Address: [address] [place] [address] Performed By: #### 2 4323-8, ####[facility] [id number] [place] [address] [place] Creatinine and Glomerular filtration rate.predicted panel (S/P/Bld) 43 mL/min/1.73m??? Low >=60 [facility] Comment on above: Order Comment: [place] sales Type: BLOOD SPECIMENOrdering Facility: [facility] Address: [address] [place] [address] Result Comment: Ann mated Glomerular Filtration Rate (eGFR) is calculated using the 2020 CKD-EPI creatinine equation. This equation utilizes serum creatinine, sex, and age as parameters. The creatinine assay has traceable calibration to isotope dilution-mass spectrometry. Refer to KDIGO guidelines for clinical interpretation. In patients with unstable renal function, e.g. those with acute kidney injury, the eGFR may not accurately reflect actual GFR. Performed By: #### 2 4323-8, 35123-9 ####[facility] [id number] [place] [address] [place] Glucose [Mass/Vol] 90 mg/dL Normal 74-99 [facility] Comment on above: Order Comment: Median sales Type: BLOOD SPECIMENOrdering Facility: [facility] Address: [address] [place] [address] Result Comment: The [place] [employer] (ADA) provides guidance for cutoff values for fasting glucose and random glucose. The ADA defines fasting as no caloric intake for at least 8 hours. Fasting plasma glucose results between 100 to 125 mg/dL indicate increased risk for diabetes (prediabetes).Fasting plasma glucose results greater than or equal to 126 mg/dL meet the criteria for diagnosis of diabetes. In the absence of unequivocal hyperglycemia, results should be confirmed by repeat testing. In a patient with classic symptoms of hyperglycemia or hyperglycemic crisis, random plasma glucose results greater than or equal to 200 mg/dL meet the criteria for diagnosis of diabetes.Reference: Standards of Medical Care in Diabetes 2016, [place] [employer]. Diabetes Care. 2016.39(Suppl 1). Performed By: #### 2 4323-8, 94369-0 ####[facility] [id number] [place] [address] [place] Potassium [Moles/Vol] 4.1 mmol/L Normal 3.7-5.1 [facility] Comment on above: Order Comment: Speci men Type: BLOOD SPECIMENOrdering Facility: [facility] Address: [address] [place] [address] Performed By: #### 2 4323-8, 12276-6 ####[facility] MILLCHATA [id number] [place] [address] [place] Protein [Mass/Vol] 7.9 g/dL Normal 6.3-8.0 [facility] Comment on above: Order Comment: Speci men Type: BLOOD SPECIMENOrdering Facility: [facility] Address: [address] [place] [address] Performed By: #### 2 4323-8, ####[facility]ITALTATY [id number] [place] [address] [place] Sodium [Moles/Vol] 137 mmol/L Normal 136-144 [facility] Comment on above: Order Comment: Speci men Type: BLOOD SPECIMENOrdering Facility: [facility] [facility] Address: [address] [place] [address] Performed By: #### 2 4323-8, ####[facility] MILLJordanNCTHIAGOA [id number] [place] [address] [place] Urea nitrogen [Mass/Vol] 19 mg/dL Normal 7-21 [facility] Comment on above: Order Comment: Speci men Type: BLOOD SPECIMENOrdering Facility: [facility] Address: [address] [place] [address] Performed By: #### 2 4323-8, 40543-8 ####[facility] HOSPITALWNCLIA [id number] [place] [address] [place] Magnesium SerPl-mCncon 02-10 Magnesium [Mass/Vol] 1.3 mg/dL Low 1.7-2.3 [facility] Comment on above: Order Comment: Speci men Type: BLOOD SPECIMENOrdering Facility: [facility] Address: [address] [place] [address] Performed By: #### 2 4323-8, 84450-0 ####[facility] HOSPITALNCTHIAGOA [id number] [place] [address] [place] CNPNon 01-29-2024 CNPN Normal [facility] CBC W Auto Differential pane l (Bld)on 01-25-2024 Basophils (Bld) [#/Vol] 0.00 10*3/uL Normal <0.11 [facility] Comment on above: Order Comment: Speci men Type: BLOOD SPECIMENOrdering Facility: [facility] Address: [address] [place] [address] Performed By: #### 5 7021-8 ####[facility]PITALLIA [id number] [address] LABORATORYCLIA [id number] [place] [address] [place] Basophils/100 WBC (Bld) 0.0 % Normal [facility] Comment on above: Order Comment: Speci men Type: BLOOD SPECIMENOrdering Facility: [facility] Address: [address] [place] [address] Performed By: #### 5 7021-8 ####[facility]OSPITALLIA [id number] [address] LABORATORYCLIA [id number] [place] [address] [place] [facility] Differential cell count method Nom (Bld) Manual Normal [facility] Comment on above: Order Comment: Speci men Type: BLOOD SPECIMENOrdering Facility: [facility] Address: [address] [place] [address] Performed By: #### 5 7021-8 ####[facility] MILLTOWNCLIA [id number] [address] LABORATORYCLIA [id number] [place] [address] [place] Eosinophils (Bld) [#/Vol] 0.00 10*3/uL Normal <0.46 [facility] Comment on above: Order Comment: Speci men Type: BLOOD SPECIMENOrdering Facility: [facility] Address: [address] [place] [address] Performed By: #### 5 7021-8 ####[facility] HOSPITALWNCLIA [id number] [address] LABORATORYCLIA [id number] [place] [address] [place] Eosinophils/100 WBC (Bld) 0.0 % Normal [facility] Comment on above: Order Comment: Speci men Type: BLOOD SPECIMENOrdering Facility: [facility] Address: [address] [place] [address] Performed By: #### 5 7021-8 ####[facility] HOSPITALWNCLIA [id number] [address] LABORATORYCLIA [id number] [place] [address] [place] Erythrocyte distribution width (RBC) [Ratio] 12.5 % Normal 11.5-15.0 [facility] Comment on above: Order Comment: Speci men Type: BLOOD SPECIMENOrdering Facility: [facility] Address: [address] [place], [place] [address] Performed By: #### 5 7021-8 ####[facility] MILLTOWNCLIA [id number] [address] LABORATORYCLIA [id number] [place] [address] [place] Hematocrit (Bld) [Volume fraction] 30.9 % Low 36.0-46.0 [facility] Comment on above: Order Comment: Speci men Type: BLOOD SPECIMENOrdering Facility: [facility] Address: [address] [place] [address] Performed By: #### 5 7021-8 ####[facility] CENTERTOWNCLIA [id number] [address] LABORATORYCLIA [id number] [place] [address] [place] Hemoglobin (Bld) [Mass/Vol] 10.9 g/dL Low 11.5-15.5 [facility] Comment on above: Order Comment: Speci men Type: BLOOD SPECIMENOrdering Facility: [facility] Address: [address] [place] [address] Performed By: #### 5 7021-8 ####[facility] HOSPITALWVTLIA [id number] [address] LABORATORYCLIA [id number] [place] [address] [place] Lymphocytes (Bld) [#/Vol] 3.14 10*3/uL Normal 1.00-4.00 [facility] Comment on above: Order Comment: Speci men Type: BLOOD SPECIMENOrdering Facility: [facility] Address: [address] [place] [address] Performed By: #### 5 7021-8 ####[facility] HOSPITALWNCLIA [id number] [address] LABORATORYCLIA [id number] [place] [address] [place] Lymphocytes/100 WBC (Bld) 36.0 % Normal [facility] Comment on above: Order Comment: Speci men Type: BLOOD SPECIMENOrdering Facility: [facility] Address: [address] [place] [address] Performed By: #### 5 7021-8 ####[facility] MILLTOWNCLIA [id number] [address] LABORATORYCLIA [id number] [address] MCH (RBC) [Entitic mass] 31.0 pg Normal 26.0-34.0 [facility] Comment on above: Order Comment: Speci men Type: BLOOD SPECIMENOrdering Facility: [facility] Address: [address] [place] [address] Performed By: #### 5 7021-8 ####[facility]PITALLIA [id number] [address] LABORATORYCLIA [id number] [address] MCHC (RBC) [Mass/Vol] 35.3 g/dL Normal 30.5-36.0 [facility] Comment on above: Order Comment: Speci men Type: BLOOD SPECIMENOrdering Facility: [facility] Address: [address] [place] [address] Performed By: #### 5 7021-8 ####[facility]ITALLIA [id number] [address] LABORATORYCLIA [id number] [address] MCV (RBC) [Entitic vol] 87.8 fL Normal 80.0-100.0 [facility] Comment on above: Order Comment: Speci men Type: BLOOD SPECIMENOrdering Facility: [facility] Address: [address] [place] [address] Performed By: #### 5 7021-8 ####[facility] HOSPITALNCLIA [id number] [address] LABORATORYCLIA [id number] [place] [address] [place] Monocytes (Bld) [#/Vol] 0.61 10*3/uL Normal <0.87 [facility] Comment on above: Order Comment: Speci men Type: BLOOD SPECIMENOrdering Facility: [facility] Address: [address] [place] [address] Performed By: #### 5 7021-8 ####[facility] MILLTOWNCLIA [id number] [address] LABORATORYCLIA [id number] [place] [address] [place] Monocytes/100 WBC (Bld) 7.0 % Normal [facility] Comment on above: Order Comment: Speci men Type: BLOOD SPECIMENOrdering Facility: [facility] Address: [address] [place] [address] Performed By: #### 5 7021-8 ####[facility] HOSPITALNCLIA [id number] [address] LABORATORYCLIA [id number] [place] [address] [place] MYELO% 4.0 % Normal [facility] Comment on above: Order Comment: Speci men Type: BLOOD SPECIMENOrdering Facility: [facility] Address: [address] [place] [address] Performed By: #### 5 7021-8 ####[facility] MILLFARMVILLENCLIA [id number] [address] LABORATORYCLIA [id number] [place] [address] [place] Neutrophils (Bld) [#/Vol] 4.63 10*3/uL Normal 1.45-7.50 [facility] Comment on above: Order Comment: Speci men Type: BLOOD SPECIMENOrdering Facility: [facility] Address: [address] [place] [address] Performed By: #### 5 7021-8 ####[facility] DAVISTOWNCLIA [id number] [address] LABORATORYCLIA [id number] [place] [address] [place] Neutrophils/100 WBC (Bld) 53.0 % Normal [facility] Comment on above: Order Comment: Speci men Type: BLOOD SPECIMENOrdering Facility: [facility] Address: [address] [place] [address] Performed By: #### 5 7021-8 ####[facility]OSPITALWNCLIA [id number] [address] LABORATORYCLIA [id number] [place] [address] [place] Nucleated RBC (Bld) [#/Vol] 10*3/uL Normal <0.01 [facility] Comment on above: Order Comment: Speci men Type: BLOOD SPECIMENOrdering Facility: [facility] Address: [address] [place] [address] Performed By: #### 5 7021-8 ####[facility]OSPITALWNCLIA [id number] [address] LABORATORYCLIA [id number] [place] [address] [place] Nucleated RBC/100 WBC (Bld) [Ratio] 0.0 /100 WBC Normal [facility] Comment on above: Order Comment: Speci men Type: BLOOD SPECIMENOrdering Facility: [facility] Address: [address] [place] [address] Performed By: #### 5 7021-8 ####[facility] HOSPITALNCLIA [id number] [address] LABORATORYCLIA [id number] [place] [address] [place] Platelet mean volume (Bld) [Entitic vol] 9.3 fL Normal 9.0-12.7 [facility] Comment on above: Order Comment: Speci men Type: BLOOD SPECIMENOrdering Facility: [facility] Address: [address] [place] [address] Performed By: #### 5 7021-8 ####[facility] MILLWVTLIA [id number] [address] LABORATORYCLIA [id number] [place] [address] [place] Platelets (Bld) [#/Vol] 262 10*3/uL Normal 150-400 [facility] Comment on above: Order Comment: Speci men Type: BLOOD SPECIMENOrdering Facility: [facility] Address: [address] [place] [address] Performed By: #### 5 7021-8 ####[facility]OSPITALLIA [id number] [address] LABORATORYCLIA [id number] [place] [address] [place] Platelets Estimate (Bld) [#/Vol] Adequate Normal [facility] Comment on above: Order Comment: Speci men Type: BLOOD SPECIMENOrdering Facility: [facility] Address: [address] [place] [address] Performed By: #### 5 7021-8 ####[facility] HOSPITALWNCLIA [id number] [address] LABORATORYCLIA [id number] [place] [address] [place] Polychromasia LM Ql (Bld) Slight Normal [facility] Comment on above: Order Comment: Speci men Type: BLOOD SPECIMENOrdering Facility: [facility] Address: [address] [place] [address] Performed By: #### 5 7021-8 ####[facility]OSPITALWNCLIA [id number] [address] LABORATORYCLIA [id number] [address] RBC (Bld) [#/Vol] 3.52 10*6/uL Low 3.90-5.20 [facility] Comment on above: Order Comment: Speci men Type: BLOOD SPECIMENOrdering Facility: [facility] Address: [address] [place] [address] Performed By: #### 5 7021-8 ####[facility] HOSPITALNCA [id number] [address] LABORATORYCLIA [id number] [address] RED CELL MORPH Reviewed: see result s of individual morphologies Normal [facility] Comment on above: Order Comment: Speci men Type: BLOOD SPECIMENOrdering Facility: [facility] Address: [address] [place] [address] Performed By: #### 5 7021-8 ####[facility]OSPITALLIA [id number] [address] LABORATORYCLIA [id number] [place] [address] [place] [facility] WBC (Bld) [#/Vol] 8.73 10*3/uL Normal 3.70-11.00 [facility] Comment on above: Order Comment: Speci men Type: BLOOD SPECIMENOrdering Facility: [facility] Address: [address] [place] [address] Performed By: #### 5 7021-8 ####[facility] MILLWNCLIA [id number] [address] LABORATORYCLIA [id number] [address] WBC Left Shift Ql (Bld) Present Normal [facility] Comment on above: Order Comment: Speci men Type: BLOOD SPECIMENOrdering Facility: [facility] Address: [address] [place] [address] Performed By: #### 5 7021-8 ####[facility] HOSPITALNCA [id number] [address] LABORATORYCLIA [id number] [address] OF [facility] Comprehensive metabolic 2000 panelon 01-25-2024 Albumin [Mass/Vol] 4.0 g/dL Normal 3.9-4.9 [facility] Comment on above: Order Comment: Speci men Type: BLOOD SPECIMENOrdering Facility: [facility] Address: [address] [place] [address] Performed By: #### 2 4323-8, 18628-6 ####[facility] HOSPITALNCA [id number] [place] [address] [place] ALP [Catalytic activity/Vol] 126 U/L High 34-123 [facility] Comment on above: Order Comment: Speci men Type: BLOOD SPECIMENOrdering Facility: [facility] Address: [address] [place] [address] Performed By: #### 2 4323-8, 84853-2 ####[facility] HOSPITALNCLIA [id number] [place] [address] [place] ALT [Catalytic activity/Vol] 69 U/L High 7-38 [facility] Comment on above: Order Comment: Speci men Type: BLOOD SPECIMENOrdering Facility: [facility] Address: [address] [id number] Performed By: #### 2 4323-8, 00258-7 ####[facility] MAURIA [id number] [place] [address] [place] Anion gap [Moles/Vol] 12 mmol/L Normal 8-15 [facility] Comment on above: Order Comment: Speci men Type: BLOOD SPECIMENOrdering Facility: [facility] Address: [address] [place] [address] Performed By: #### 2 4323-8, ####[facility] DAVISFARMVILLELALITHIAGOA [id number] [place] [address] [place] AST [Catalytic activity/Vol] 58 U/L High 13-35 [facility] Comment on above: Order Comment: Speci men Type: BLOOD SPECIMENOrdering Facility: [facility] Address: [address] [place] [address] Performed By: #### 2 4323-8, ####[facility] RANJITHVIETA [id number] [place] [address] [place] Bilirubin [Mass/Vol] 0.2 mg/dL Normal 0.2-1.3 [facility] Comment on above: Order Comment: Speci men Type: BLOOD SPECIMENOrdering Facility: [facility] Address: [address] [place] [address] Performed By: #### 2 4323-8, ####[facility] HOSPITALLIA [id number] [place] [address] [place] Calcium [Mass/Vol] 10.0 mg/dL Normal 8.5-10.2 [facility] Comment on above: Order Comment: Speci men Type: BLOOD SPECIMENOrdering Facility: [facility] Address: [address] [place] [address] Performed By: #### 2 4323-8, ####[facility] HOSPITALNCLIA [id number] [place] [address] [place] Chloride [Moles/Vol] 100 mmol/L Normal 98-107 [facility] Comment on above: Order Comment: Speci men Type: BLOOD SPECIMENOrdering Facility: [facility] Address: [address] [place] [address] Performed By: #### 2 4323-8, ####[facility] ERA [id number] [place] [address] [place] CO2 [Moles/Vol] 26 mmol/L Normal 22-30 [facility] Comment on above: Order Comment: Speci men Type: BLOOD SPECIMENOrdering Facility: [facility] Address: [address] [place] [address] Performed By: #### 2 4323-8, ####[facility] HOSPITALLIA [id number] [place] [address] [place] Creatinine [Mass/Vol] 1.16 mg/dL High 0.58-0.96 [facility] Comment on above: Order Comment: Speci men Type: BLOOD SPECIMENOrdering Facility: [facility] Address: [address] [place] [address] Performed By: #### 2 4323-8, ####[facility] ERA [id number] [place] [address] [place] [facility] Creatinine and Glomerular filtration rate.predicted panel (S/P/Bld) 53 mL/min/1.73m??? Low >=60 [facility] Comment on above: Order Comment: Speci men Type: BLOOD SPECIMENOrdering Facility: [facility] Address: [address] [place] [address] Result Comment: Ann mated Glomerular Filtration Rate (eGFR) is calculated using the 2020 CKD-EPI creatinine equation. This equation utilizes serum creatinine, sex, and age as parameters. The creatinine assay has traceable calibration to isotope dilution-mass spectrometry. Refer to KDIGO guidelines for clinical interpretation. In patients with unstable renal function, e.g. those with acute kidney injury, the eGFR may not accurately reflect actual GFR. Performed By: #### 2 4323-8, ####[facility] DAVISTOWNCLIA [id number] [place] [address] [place] Glucose [Mass/Vol] 86 mg/dL Normal 74-99 [facility] Comment on above: Order Comment: [place] [employer] Type: BLOOD SPECIMENOrdering Facility: [facility] Address: [address] [place] [address] Result Comment: The [place] Diabetes Association (ADA) provides guidance for cutoff values for fasting glucose and random glucose. The ADA defines fasting as no caloric intake for at least 8 hours. Fasting plasma glucose results between 100 to 125 mg/dL indicate increased risk for diabetes (prediabetes).Fasting plasma glucose results greater than or equal to 126 mg/dL meet the criteria for diagnosis of diabetes. In the absence of unequivocal hyperglycemia, results should be confirmed by repeat testing. In a patient with classic symptoms of hyperglycemia or hyperglycemic crisis, random plasma glucose results greater than or equal to 200 mg/dL meet the criteria for diagnosis of diabetes.Reference: Standards of Medical Care in Diabetes 2016, [place] Diabetes Association. Diabetes Care. 2016.39(Suppl 1). Performed By: #### 2 4323-, ####[facility] HOSPITALWNCLIA [id number] [place] [address] [place] Potassium [Moles/Vol] 4.3 mmol/L Normal 3.7-5.1 [facility] Comment on above: Order Comment: [place] [employer] Type: BLOOD SPECIMENOrdering Facility: [facility] Address: [address] [place] [address] Performed By: #### 2 4323-8, ####[facility] DAVSIWNCLIA [id number] [place] [address] [place] Protein [Mass/Vol] 7.2 g/dL Normal 6.3-8.0 [facility] Comment on above: Order Comment: Speci men Type: BLOOD SPECIMENOrdering Facility: [facility] Address: [address] [place] [address] Performed By: #### 2 4323-8, 47695-9 ####[facility] DAVISJUANJONCLIA [id number] [place] [address] [place] Sodium [Moles/Vol] 138 mmol/L Normal 136-144 [facility] Comment on above: Order Comment: Speci men Type: BLOOD SPECIMENOrdering Facility: [facility] Address: [address] [place] [address] Performed By: #### 2 4323-8, 87008-5 ####[facility] HOSPITALNCNENITA [id number] [place] [address] [place] Urea nitrogen [Mass/Vol] 19 mg/dL Normal 7-21 [facility] Comment on above: Order Comment: Speci men Type: BLOOD SPECIMENOrdering Facility: [facility] Address: [address] [place] [address] Performed By: #### 2 4323-8, 80540-4 ####[facility] HOSPITALNCLIA [id number] [place] [address] [place] Magnesium SerPl-mCncon 01-24 Magnesium [Mass/Vol] 1.5 mg/dL Low 1.7-2.3 [facility] Comment on above: Order Comment: Speci men Type: BLOOD SPECIMENOrdering Facility: [facility] Address: [address] [place] [address] Performed By: #### 2 4323-8, 70180-0 ####[facility] HOSPITALNCLIA [id number] [place] [address] [place] CNPNon 01-24-2024 CNPN Normal [facility] CBC W Auto Differential pane l (Bld)on 01-23-2024 Basophils (Bld) [#/Vol] 0.00 10*3/uL Normal <0.11 [facility] Comment on above: Order Comment: Speci men Type: BLOOD SPECIMENOrdering Facility: [facility] Address: [address] [place] [address] Performed By: #### 5 7021-8 ####[facility] MILLTOWNCLIA [id number] [address] LABORATORYCLIA [id number] [place] [address] [place] Basophils/100 WBC (Bld) 0.0 % Normal [facility] Comment on above: Order Comment: Speci men Type: BLOOD SPECIMENOrdering Facility: [facility] Address: [address] [place] [address] Performed By: #### 5 7021-8 ####[facility] HOSPITALWNCLIA [id number] [address] LABORATORYCLIA [id number] [place] [address] [place] [facility] Differential cell count method Nom (Bld) Manual Normal [facility] Comment on above: Order Comment: Speci men Type: BLOOD SPECIMENOrdering Facility: [facility] Address: [address] [place] [address] Performed By: #### 5 7021-8 ####[facility] MILLWNCLIA [id number] [address] LABORATORYCLIA [id number] [place] [address] [place] Eosinophils (Bld) [#/Vol] 0.00 10*3/uL Normal <0.46 [facility] Comment on above: Order Comment: Speci men Type: BLOOD SPECIMENOrdering Facility: [facility] Address: [address] [place] [address] Performed By: #### 5 7021-8 ####[facility]ATIONOST[facility] MILLTOWNCLIA [id number] [address] LABORATORYCLIA [id number] [place] [address] [place] Eosinophils/100 WBC (Bld) 0.0 % Normal [facility] Comment on above: Order Comment: Speci men Type: BLOOD SPECIMENOrdering Facility: [facility] Address: [address] [place] [address] Performed By: #### 5 7021-8 ####[facility] HOSPITALWLALILIA [id number] [address] LABORATORYCLIA [id number] [place] [address] [place] Erythrocyte distribution width (RBC) [Ratio] 12.3 % Normal 11.5-15.0 [facility] Comment on above: Order Comment: Speci men Type: BLOOD SPECIMENOrdering Facility: [facility] Address: [address] [place] [address] Performed By: #### 5 7021-8 ####[facility] DAVISMARCIWNCLIA [id number] [address] LABORATORYCLIA [id number] [place] [address] [place] Hematocrit (Bld) [Volume fraction] 33.2 % Low 36.0-46.0 [facility] Comment on above: Order Comment: Speci men Type: BLOOD SPECIMENOrdering Facility: [facility] Address: [facility] KATHR[facility] [place] [address] Performed By: #### 5 7021-8 ####[facility] MILLTOWNCLIA [id number] [address] LABORATORYCLIA [id number] [place] [address] [place] Hemoglobin (Bld) [Mass/Vol] 11.7 g/dL Normal 11.5-15.5 [facility] Comment on above: Order Comment: Speci men Type: BLOOD SPECIMENOrdering Facility: [facility] Address: [address] [place] [address] Performed By: #### 5 7021-8 ####[facility] MILLTOWNCLIA [id number] [address] LABORATORYCLIA [id number] [place] [address] [place] Lymphocytes (Bld) [#/Vol] 2.12 10*3/uL Normal 1.00-4.00 [facility] Comment on above: Order Comment: Speci men Type: BLOOD SPECIMENOrdering Facility: [facility] Address: [address] [place] [address] Performed By: #### 5 7021-8 ####[facility] CENTERTOWNCLIA [id number] [address] LABORATORYCLIA [id number] [address] [place] Lymphocytes/100 WBC (Bld) 48.0 % Normal [facility] Comment on above: Order Comment: Speci men Type: BLOOD SPECIMENOrdering Facility: [facility] Address: [address] [place] [address] Performed By: #### 5 7021-8 ####[facility] HOSPITALNCLIA [id number] [address] LABORATORYCLIA [id number] [place] [address] [place] [facility] (RBC) [Entitic mass] 31.1 pg Normal 26.0-34.0 [facility] Comment on above: Order Comment: Speci men Type: BLOOD SPECIMENOrdering Facility: [facility] Address: [address] [place] [address] Performed By: #### 5 7021-8 ####[facility]ITALWNCLIA [id number] [address] LABORATORYCLIA [id number] [place] [address] [place] M[facility] (RBC) [Mass/Vol] 35.2 g/dL Normal 30.5-36.0 [facility] Comment on above: Order Comment: Speci men Type: BLOOD SPECIMENOrdering Facility: [facility] Address: [address] [place] [address] Performed By: #### 5 7021-8 ####[facility] ERA [id number] [address] LABORATORYCLIA [id number] [address] [facility] MCV (RBC) [Entitic vol] 88.3 fL Normal 80.0-100.0 [facility] Comment on above: Order Comment: Speci men Type: BLOOD SPECIMENOrdering Facility: [facility] Address: [address] [place] [address] Performed By: #### 5 7021-8 ####[facility] ERA [id number] [address] LABORATORYCLIA [id number] [place] [address] [place] Monocytes (Bld) [#/Vol] 0.57 10*3/uL Normal <0.87 [facility] Comment on above: Order Comment: Speci men Type: BLOOD SPECIMENOrdering Facility: [facility] Address: [address] [place] [address] Performed By: #### 5 7021-8 ####[facility] HOSPITALWNCLIA [id number] [address] LABORATORYCLIA [id number] [place] [address] [place] Monocytes/100 WBC (Bld) 13.0 % Normal [facility] Comment on above: Order Comment: Speci men Type: BLOOD SPECIMENOrdering Facility: [facility] Address: [address] [place] [address] Performed By: #### 5 7021-8 ####[facility] MILLTOWNCLIA [id number] [address] LABORATORYIA [id number] [place] [address] [place] MYELO% 3.0 % Normal [facility] Comment on above: Order Comment: Speci men Type: BLOOD SPECIMENOrdering Facility: [facility] Address: [address] [place] [address] Performed By: #### 5 7021-8 ####[facility] HOSPITALWNCLIA [id number] [address] LABORATORYCLIA [id number] [place] [address] [place] Neutrophils (Bld) [#/Vol] 1.59 10*3/uL Normal 1.45-7.50 [facility] Comment on above: Order Comment: Speci men Type: BLOOD SPECIMENOrdering Facility: [facility] Address: [address] [place] [address] Performed By: #### 5 7021-8 ####[facility] MILLTOWNCLIA [id number] [address] LABORATORYCLIA [id number] [place] [address] [place] Neutrophils/100 WBC (Bld) 36.0 % Normal [facility] Comment on above: Order Comment: Speci men Type: BLOOD SPECIMENOrdering Facility: [facility] Address: [address] [place] [address] Performed By: #### 5 7021-8 ####[facility] DAVISWNCLIA [id number] [address] LABORATORYCLIA [id number] [address] Nucleated RBC (Bld) [#/Vol] 10*3/uL Normal <0.01 [facility] Comment on above: Order Comment: Speci men Type: BLOOD SPECIMENOrdering Facility: [facility] Address: [address] [place] [address] Performed By: #### 5 7021-8 ####[facility] ERA [id number] [address] LABORATORYCLIA [id number] [address] [place] Nucleated RBC/100 WBC (Bld) [Ratio] 0.0 /100 WBC Normal [facility] Comment on above: Order Comment: Speci men Type: BLOOD SPECIMENOrdering Facility: [facility] Address: [address] [place] [address] Performed By: #### 5 7021-8 ####[facility]OSPITALLIA [id number] [address] LABORATORYCLIA [id number] [place] [address] [place] Platelet mean volume (Bld) [Entitic vol] 9.7 fL Normal 9.0-12.7 [facility] Comment on above: Order Comment: Speci men Type: BLOOD SPECIMENOrdering Facility: [facility] Address: [address] [place] [address] Performed By: #### 5 7021-8 ####[facility] MILLTOWNCLIA [id number] [address] LABORATORYCLIA [id number] [place] [address] [place] Platelets (Bld) [#/Vol] 277 10*3/uL Normal 150-400 [facility] Comment on above: Order Comment: Speci men Type: BLOOD SPECIMENOrdering Facility: [facility] Address: [address] [place] [address] Performed By: #### 5 7021-8 ####[facility] MILLTOWNCLIA [id number] [address] LABORATORYCLIA [id number] [place] [address] [place] Platelets Estimate (Bld) [#/Vol] Adequate Normal [facility] Comment on above: Order Comment: Speci men Type: BLOOD SPECIMENOrdering Facility: [facility] Address: [address] [place] [address] Performed By: #### 5 7021-8 ####[facility] MILLTOWNCLIA [id number] [address] LABORATORYCLIA [id number] [place] [address] [place] RBC (Bld) [#/Vol] 3.76 10*6/uL Low 3.90-5.20 [facility] Comment on above: Order Comment: Speci men Type: BLOOD SPECIMENOrdering Facility: [facility] Address: [address] [place] [address] Performed By: #### 5 7021-8 ####[facility] MILLTOWNCLIA [id number] [address] LABORATORYCLIA [id number] [place] [address] [place] RED CELL MORPH Reviewed: unremarkable Normal [facility] Comment on above: Order Comment: Speci men Type: BLOOD SPECIMENOrdering Facility: [facility] Address: [address] [place] [address] Performed By: #### 5 7021-8 ####[facility] HOSPITALNCLIA [id number] [address] LABORATORYCLIA [id number] [place] [address] [place] WBC (Bld) [#/Vol] 4.42 10*3/uL Normal 3.70-11.00 [facility] Comment on above: Order Comment: Speci men Type: BLOOD SPECIMENOrdering Facility: [facility] Address: [address] [place] [address] Performed By: #### 5 7021-8 ####[facility] ERA [id number] [address] LABORATORYCLIA [id number] [place] [address] [place] WBC Left Shift Ql (Bld) Present Normal [facility] Comment on above: Order Comment: Speci men Type: BLOOD SPECIMENOrdering Facility: [facility] Address: [address] [place] [address] Performed By: #### 5 7021-8 ####[facility] ERA [id number] [address] LABORATORYCLIA [id number] [place] [address] [place] CNPNon 01-23-2024 CNPN Normal [facility] Comprehensive metabolic 2000 panelon 01-23-2024 Albumin [Mass/Vol] 4.5 g/dL Normal 3.9-4.9 [facility] Comment on above: Order Comment: Speci men Type: BLOOD SPECIMENOrdering Facility: [facility] Address: [address] [place] [address] Performed By: #### 2 4323-8 ####[facility] MILLTOWNCLIA [id number] [place] [address] [place] ALP [Catalytic activity/Vol] 143 U/L High 34-123 [facility] Comment on above: Order Comment: Speci men Type: BLOOD SPECIMENOrdering Facility: [facility] Address: [address] [place] [address] Performed By: #### 2 4323-8 ####[facility] HOSPITALWNCLIA [id number] [place] [address] [place] ALT [Catalytic activity/Vol] 48 U/L High 7-38 [facility] Comment on above: Order Comment: Speci men Type: BLOOD SPECIMENOrdering Facility: [facility] Address: [address] [place] [address] Performed By: #### 2 4323-8 ####[facility] HOSPITALNCLIA [id number] [place] [address] [place] Anion gap [Moles/Vol] 9 mmol/L Normal 8-15 [facility] Comment on above: Order Comment: Speci men Type: BLOOD SPECIMENOrdering Facility: [facility] Address: [address] [place] [address] Performed By: #### 2 4323-8 ####[facility] MILLTOWNCLIA [id number] [place] [address] [place] AST [Catalytic activity/Vol] 45 U/L High 13-35 [facility] Comment on above: Order Comment: Speci men Type: BLOOD SPECIMENOrdering Facility: [facility] Address: [address] [place] [address] Performed By: #### 2 4323-8 ####[facility] MILLTOWNCLIA [id number] [place] [address] [place] Bilirubin [Mass/Vol] 0.2 mg/dL Normal 0.2-1.3 [facility] Comment on above: Order Comment: Speci men Type: BLOOD SPECIMENOrdering Facility: [facility] Address: [address] [place] [address] Performed By: #### 2 4323-8 ####[facility] HOSPITALLALILIA [id number] [place] [address] [place] Calcium [Mass/Vol] 9.9 mg/dL Normal 8.5-10.2 [facility] Comment on above: Order Comment: Speci men Type: BLOOD SPECIMENOrdering Facility: [facility] Address: [address] [place] [address] Performed By: #### 2 4323-8 ####[facility] HOSPITALNCLIA [id number] [place] [address] [place] Chloride [Moles/Vol] 97 mmol/L Low 98-107 [facility] Comment on above: Order Comment: Speci men Type: BLOOD SPECIMENOrdering Facility: [facility] Address: [address] [place] [address] Performed By: #### 2 4323-8 ####[facility] HOSPITALNCLIA [id number] [place] [address] [place] CO2 [Moles/Vol] 28 mmol/L Normal 22-30 [facility] Comment on above: Order Comment: Speci men Type: BLOOD SPECIMENOrdering Facility: [facility] Address: [address] [place] [address] Performed By: #### 2 4323-8 ####[facility] HOSPITALNCLIA [id number] [place] [address] [place] Creatinine [Mass/Vol] 1.26 mg/dL High 0.58-0.96 [facility] Comment on above: Order Comment: Speci men Type: BLOOD SPECIMENOrdering Facility: [facility] Address: [address] [place] [address] Performed By: #### 2 4323-8 ####[facility] [id number] [place] [address] [place] Creatinine and Glomerular filtration rate.predicted panel (S/P/Bld) 48 mL/min/1.73m??? Low >=60 [facility] Comment on above: Order Comment: Medina sales Type: BLOOD SPECIMENOrdering Facility: [facility] Address: [address] [place] [address] Result Comment: Ann mated Glomerular Filtration Rate (eGFR) is calculated using the 2020 CKD-EPI creatinine equation. This equation utilizes serum creatinine, sex, and age as parameters. The creatinine assay has traceable calibration to isotope dilution-mass spectrometry. Refer to KDIGO guidelines for clinical interpretation. In patients with unstable renal function, e.g. those with acute kidney injury, the eGFR may not accurately reflect actual GFR. Performed By: #### 2 4323-8 ####[facility] [id number] [place] [address] [place] Glucose [Mass/Vol] 167 mg/dL High 74-99 [facility] Comment on above: Order Comment: Medina sales Type: BLOOD SPECIMENOrdering Facility: [facility] Address: [address] [place] [address] Result Comment: The [place] [employer] (ADA) provides guidance for cutoff values for fasting glucose and random glucose. The ADA defines fasting as no caloric intake for at least 8 hours. Fasting plasma glucose results between 100 to 125 mg/dL indicate increased risk for diabetes (prediabetes).Fasting plasma glucose results greater than or equal to 126 mg/dL meet the criteria for diagnosis of diabetes. In the absence of unequivocal hyperglycemia, results should be confirmed by repeat testing. In a patient with classic symptoms of hyperglycemia or hyperglycemic crisis, random plasma glucose results greater than or equal to 200 mg/dL meet the criteria for diagnosis of diabetes.Reference: Standards of Medical Care in Diabetes 2016, [place] [employer]. Diabetes Care. 2016.39(Suppl 1). Performed By: #### 2 4323-8 ####[facility] MILLMARCIWNCLIA [id number] [place] [address] [place] Potassium [Moles/Vol] 3.8 mmol/L Normal 3.7-5.1 [facility] Comment on above: Order Comment: Speci men Type: BLOOD SPECIMENOrdering Facility: [facility] Address: [address] [place] [address] Performed By: #### 2 4323-8 ####[facility] HOSPITALWNCLIA [id number] [place] [address] [place] Protein [Mass/Vol] 8.1 g/dL High 6.3-8.0 [facility] Comment on above: Order Comment: Speci men Type: BLOOD SPECIMENOrdering Facility: [facility] Address: [address] [place] [address] Performed By: #### 2 4323-8 ####[facility] HOSPITALNCLIA [id number] [place] [address] [place] Sodium [Moles/Vol] 134 mmol/L Low 136-144 [facility] Comment on above: Order Comment: Speci men Type: BLOOD SPECIMENOrdering Facility: [facility] Address: [address] [place] [address] Performed By: #### 2 4323-8 ####[facility] MILLWNCLIA [id number] [place] [address] [place] Urea nitrogen [Mass/Vol] 19 mg/dL Normal 7-21 [facility] Comment on above: Order Comment: Speci men Type: BLOOD SPECIMENOrdering Facility: [facility] Address: [address] [place] [address] Performed By: #### 2 4323-8 ####[facility] HOSPITALNCLIA [id number] [place] [address] [place] Albumin [Mass/Vol] Normal [facility] Comment on above: Order Comment: Speci men Type: BLOOD SPECIMENOrdering Facility: [facility] Address: [address] [place] [address] Result Comment: Unab le to assay. Specimen hemolyzed. Performed By: #### 2 4323-8 ####[facility] HOSPITALNCTHIAGOA [id number] [place] [address] [place] ALP [Catalytic activity/Vol] Normal [facility] Comment on above: Order Comment: Speci men Type: BLOOD SPECIMENOrdering Facility: [facility] Address: [address] [place] [address] Result Comment: Unab le to assay. Specimen hemolyzed. Performed By: #### 2 4323-8 ####[facility] HOSPITALNCIzabella [id number] [place] [address] [place] ALT [Catalytic activity/Vol] Normal [facility] Comment on above: Order Comment: Speci men Type: BLOOD SPECIMENOrdering Facility: [facility] Address: [address] [place] [address] Result Comment: Unab le to assay. Specimen hemolyzed. Performed By: #### 2 4323-8 ####[facility] HOSPITALNCNENITA [id number] [place] [address] [place] Anion gap [Moles/Vol] 5 mmol/L Low 8-15 [facility] Comment on above: Order Comment: Speci men Type: BLOOD SPECIMENOrdering Facility: [facility] Address: [address] [place] [address] Result Comment: Unab le to calculate due to hemolysis. Performed By: #### 2 4323-8 ####[facility] HOSPITALWNCLIA [id number] [place] [address] [place] AST [Catalytic activity/Vol] Normal [facility] Comment on above: Order Comment: Speci men Type: BLOOD SPECIMENOrdering Facility: [facility] Address: [address] [place] [address] Result Comment: Unab le to assay. Specimen significantly hemolyzed. Performed By: #### 2 4323-8 ####[facility] [id number] [place] [address] [place] Bilirubin [Mass/Vol] 0.2 mg/dL Normal 0.2-1.3 [facility] Comment on above: Order Comment: Speci men Type: BLOOD SPECIMENOrdering Facility: [facility] Address: [address] [place] [address] Performed By: #### 2 4323-8 ####[facility] [id number] [place] [address] [place] Calcium [Mass/Vol] 8.0 mg/dL Low 8.5-10.2 [facility] Comment on above: Order Comment: Speci men Type: BLOOD SPECIMENOrdering Facility: [facility] Address: [address] [place] [address] Performed By: #### 2 4323-8 ####[facility] [id number] [place] [address] [place] Chloride [Moles/Vol] 96 mmol/L Low 98-107 [facility] Comment on above: Order Comment: Speci men Type: BLOOD SPECIMENOrdering Facility: [facility] Address: [address] [place] [address] Performed By: #### 2 4323-8 ####[facility] [id number] [place] [address] [place] CO2 [Moles/Vol] 20 mmol/L Low 22-30 [facility] Comment on above: Order Comment: Speci men Type: BLOOD SPECIMENOrdering Facility: [facility] Address: [address] [place] [address] Performed By: #### 2 4323-8 ####[facility] [id number] [place] [address] [place] Creatinine [Mass/Vol] 0.98 mg/dL High 0.58-0.96 [facility] Comment on above: Order Comment: Medina sales Type: BLOOD SPECIMENOrdering Facility: [facility] Address: [address] [place] [address] Performed By: #### 2 4323-8 ####[facility] HOSPITALNCUNIVERSITY [facility] [id number] [place] [address] [place] Creatinine and Glomerular filtration rate.predicted panel (S/P/Bld) 65 mL/min/1.73m??? Normal >=60 [facility] Comment on above: Order Comment: Medina sales Type: BLOOD SPECIMENOrdering Facility: [facility] Address: [address] [place] [address] Result Comment: Ann mated Glomerular Filtration Rate (eGFR) is calculated using the 2020 CKD-EPI creatinine equation. This equation utilizes serum creatinine, sex, and age as parameters. The creatinine assay has traceable calibration to isotope dilution-mass spectrometry. Refer to KDIGO guidelines for clinical interpretation. In patients with unstable renal function, e.g. those with acute kidney injury, the eGFR may not accurately reflect actual GFR. Performed By: #### 2 4323-8 ####[facility] [id number] [place] [address] [place] Glucose [Mass/Vol] 86 mg/dL Normal 74-99 [facility] Comment on above: Order Comment: Medina sales Type: BLOOD SPECIMENOrdering Facility: [facility] Address: [address] [place] [address] Result Comment: The [place] Diabetes [employer] (ADA) provides guidance for cutoff values for fasting glucose and random glucose. The ADA defines fasting as no caloric intake for at least 8 hours. Fasting plasma glucose results between 100 to 125 mg/dL indicate increased risk for diabetes (prediabetes).Fasting plasma glucose results greater than or equal to 126 mg/dL meet the criteria for diagnosis of diabetes. In the absence of unequivocal hyperglycemia, results should be confirmed by repeat testing. In a patient with classic symptoms of hyperglycemia or hyperglycemic crisis, random plasma glucose results greater than or equal to 200 mg/dL meet the criteria for diagnosis of diabetes.Reference: Standards of Medical Care in Diabetes 2016, [place] [employer]. Diabetes Care. 2016.39(Suppl 1). Performed By: #### 2 4323-8 ####[facility] MILLTOWNCLIA [id number] [place] [address] [place] Potassium [Moles/Vol] Normal [facility] Comment on above: Order Comment: Speci men Type: BLOOD SPECIMENOrdering Facility: [facility] Address: [address] [place] [address] Result Comment: Unab le to assay. Specimen significantly hemolyzed. Performed By: #### 2 4323-8 ####[facility] HOSPITALLIA [id number] [place] [address] [place] Protein [Mass/Vol] Normal [facility] Comment on above: Order Comment: Kushali henrry Type: BLOOD SPECIMENOrdering Facility: [facility] Address: [address] [place] [address] Result Comment: Unab le to assay. Specimen hemolyzed. Performed By: #### 2 4323-8 ####[facility] HOSPITALWVTLIA [id number] [place] [address] [place] Sodium [Moles/Vol] 121 mmol/L Low 136-144 [facility] Comment on above: Order Comment: Speci men Type: BLOOD SPECIMENOrdering Facility: [facility] Address: [address] [place] [address] Performed By: #### 2 4323-8 ####[facility] HOSPITALWNCLIA [id number] [place] [address] [place] Urea nitrogen [Mass/Vol] 16 mg/dL Normal 7-21 [facility] Comment on above: Order Comment: Speci men Type: BLOOD SPECIMENOrdering Facility: [facility] Address: [address] [place] [address] Performed By: #### 2 4323-8 ####[facility] HOSPITALNCLIA [id number] [place] [address] [place] Albumin [Mass/Vol] 4.3 g/dL Normal 3.9-4.9 [facility] Comment on above: Order Comment: Speci men Type: BLOOD SPECIMENOrdering Facility: [facility] Address: [address] [place] [address] Performed By: #### 1 9123-9, 66501-1 ####[facility] HOSPITALNCUNIVERSITY [facility] [id number] [place] [address] [place] ALP [Catalytic activity/Vol] 140 U/L High 34-123 [facility] Comment on above: Order Comment: Speci men Type: BLOOD SPECIMENOrdering Facility: [facility] Address: [address] [place] [address] Performed By: #### 1 9123-9, 95197-8 ####[facility] HOSPITALNCA [id number] [place] [address] [place] ALT [Catalytic activity/Vol] 48 U/L High 7-38 [facility] Comment on above: Order Comment: Speci men Type: BLOOD SPECIMENOrdering Facility: [facility] Address: [address] [place] [address] Performed By: #### 1 9123-9, 93299-0 ####[facility] ERA [id number] [place] [address] [place] Anion gap [Moles/Vol] 9 mmol/L Normal 8-15 [facility] Comment on above: Order Comment: Speci men Type: BLOOD SPECIMENOrdering Facility: [facility] Address: [address] [place] [address] Performed By: #### 1 9123-9, 31334-6 ####[facility] DAVISCHATA [id number] [place] [address] [place] AST [Catalytic activity/Vol] Normal [facility] Comment on above: Order Comment: Speci men Type: BLOOD SPECIMENOrdering Facility: [facility] Address: [address] [place] [address] Result Comment: Unab le to assay. Specimen significantly hemolyzed. Performed By: #### 1 9123-9, 89465-7 ####[facility] ERINN [id number] [place] [address] [place] Bilirubin [Mass/Vol] 0.2 mg/dL Normal 0.2-1.3 [facility] Comment on above: Order Comment: Speci men Type: BLOOD SPECIMENOrdering Facility: [facility] Address: [address] [place] [address] Performed By: #### 1 9123-9, 28641-5 ####[facility] DAVISCHATA [id number] [place] [address] [place] Calcium [Mass/Vol] 10.0 mg/dL Normal 8.5-10.2 [facility] Comment on above: Order Comment: Speci men Type: BLOOD SPECIMENOrdering Facility: [facility] Address: [address] [place] [address] Performed By: #### 1 9123-9, 95285-5 ####[facility] MAURIA [id number] [place] [address] [place] Chloride [Moles/Vol] 99 mmol/L Normal 98-107 [facility] Comment on above: Order Comment: Speci men Type: BLOOD SPECIMENOrdering Facility: [facility] Address: [address] [place] [address] Performed By: #### 1 9123-9, 29343-4 ####[facility] DAVISWNCLIA [id number] [place] [address] [place] CO2 [Moles/Vol] 26 mmol/L Normal 22-30 [facility] Comment on above: Order Comment: Speci men Type: BLOOD SPECIMENOrdering Facility: [facility] Address: [address] [place] [address] Performed By: #### 1 9123-9, 59804-7 ####[facility] HOSPITALNCLIA [id number] [place] [address] [place] Creatinine [Mass/Vol] 1.31 mg/dL High 0.58-0.96 [facility] Comment on above: Order Comment: Speci men Type: BLOOD SPECIMENOrdering Facility: [facility] Address: [address] [place] [address] Performed By: #### 1 9123-9, 30459-5 ####[facility]ITALNCLIA [id number] [address] STATES OF [facility] Creatinine and Glomerular filtration rate.predicted panel (S/P/Bld) 46 mL/min/1.73m??? Low >=60 [facility] Comment on above: Order Comment: Speci men Type: BLOOD SPECIMENOrdering Facility: [facility] Address: [address] [place] [address] Result Comment: Ann mated Glomerular Filtration Rate (eGFR) is calculated using the 2020 CKD-EPI creatinine equation. This equation utilizes serum creatinine, sex, and age as parameters. The creatinine assay has traceable calibration to isotope dilution-mass spectrometry. Refer to KDIGO guidelines for clinical interpretation. In patients with unstable renal function, e.g. those with acute kidney injury, the eGFR may not accurately reflect actual GFR. Performed By: #### 1 9123-9, 10434-6 ####[facility]ITALNCLIA [id number] [place] [id number] [place] Glucose [Mass/Vol] 88 mg/dL Normal 74-99 [facility] Comment on above: Order Comment: Speci men Type: BLOOD SPECIMENOrdering Facility: [facility] Address: [address] [place] [address] Result Comment: The [place] Diabetes Association (ADA) provides guidance for cutoff values for fasting glucose and random glucose. The ADA defines fasting as no caloric intake for at least 8 hours. Fasting plasma glucose results between 100 to 125 mg/dL indicate increased risk for diabetes (prediabetes).Fasting plasma glucose results greater than or equal to 126 mg/dL meet the criteria for diagnosis of diabetes. In the absence of unequivocal hyperglycemia, results should be confirmed by repeat testing. In a patient with classic symptoms of hyperglycemia or hyperglycemic crisis, random plasma glucose results greater than or equal to 200 mg/dL meet the criteria for diagnosis of diabetes.Reference: Standards of Medical Care in Diabetes 2016, [place] Diabetes Association. Diabetes Care. 2016.39(Suppl 1). Performed By: #### 1 9123-9, 46222-4 ####[facility] MILLTOWNCLIA [id number] [place] [address] [place] Potassium [Moles/Vol] 5.2 mmol/L High 3.7-5.1 [facility] Comment on above: Order Comment: [place] sales Type: BLOOD SPECIMENOrdering Facility: [facility] Address: [address] [place], [place] [address] Performed By: #### 1 9123-9, 02061-6 ####[facility] MILLTOWNCLIA [id number] [place] [address] [place] Protein [Mass/Vol] 7.9 g/dL Normal 6.3-8.0 [facility] Comment on above: Order Comment: Medina sales Type: BLOOD SPECIMENOrdering Facility: [facility] Address: [address] [place], [place] [address] Performed By: #### 1 9123-9, 74087-0 ####[facility] MILLTOWNCLIA [id number] [place] [address] [place] Sodium [Moles/Vol] 134 mmol/L Low 136-144 [facility] Comment on above: Order Comment: Speci men Type: BLOOD SPECIMENOrdering Facility: [facility] Address: [address] [place] [address] Performed By: #### 1 9123-9, 38987-8 ####[facility] [id number] [address] [place] Urea nitrogen [Mass/Vol] 21 mg/dL Normal 7-21 [facility] Comment on above: Order Comment: Speci men Type: BLOOD SPECIMENOrdering Facility: [facility] Address: [address] [place] [address] Performed By: #### 1 9123-9, 62337-3 ####[facility] HOSPITALLI [id number] [place] [address] [place] Comprehensive metabolic 2000 panelOrdered By: Elizabeth Felix on 01-23-2024 Albumin [Mass/Vol] [facility] Comment on above: Unable to assay. Spe cimen hemolyzed. ALP [Catalytic activity/Vol] [facility] Comment on above: Unable to assay. Spe cimen hemolyzed. ALT [Catalytic activity/Vol] [facility] Comment on above: Unable to assay. Spe cimen hemolyzed. Anion gap [Moles/Vol] 5 mmol/L Low 8 - 15 mmol/L [facility] Comment on above: Unable to calculate due to hemolysis. AST [Catalytic activity/Vol] [facility] Comment on above: Unable to assay. Spe cimen significantly hemolyzed. Bilirubin [Mass/Vol] 0.2 mg/dL 0.2 - 1 .3 mg/dL [facility] Calcium [Mass/Vol] 8.0 mg/dL Low 8.5 - 10. 2 mg/dL [facility] Chloride [Moles/Vol] 96 mmol/L Low 98 - 10 7 mmol/L [facility] CO2 [Moles/Vol] 20 mmol/L Low 22 - 30 mmol/L [facility] Creatinine [Mass/Vol] 0.98 mg/dL High 0.58 - 0.96 mg/dL [facility] GFR/1.73 sq M.predicted among non-blacks MDRD (S/P/Bld) [Vol rate/Area] 65 mL/min/{1.73_m2} - PINF [facility] Comment on above: Estimated Glomerular Filtration Rate (eGFR) is calculated using the 2020 CKD-EPI creatinine equation. This equation utilizes serum creatinine, sex, and age as parameters. The creatinine assay has traceable calibration to isotope dilution-mass spectrometry. Refer to KDIGO guidelines for clinical interpretation. In patients with unstable renal function, e.g. those with acute kidney injury, the eGFR may not accurately reflect actual GFR. Glucose [Mass/Vol] 86 mg/dL 74 - 99 mg/dL [facility] Comment on above: The [place] Diabete s Association (ADA) provides guidance for cutoff values for fasting glucose and random glucose. The ADA defines fasting as no caloric intake for at least 8 hours. Fasting plasma glucose results between 100 to 125 mg/dL indicate increased risk for diabetes (prediabetes). Fasting plasma glucose results greater than or equal to 126 mg/dL meet the criteria for diagnosis of diabetes. In the absence of unequivocal hyperglycemia, results should be confirmed by repeat testing. In a patient with classic symptoms of hyperglycemia or hyperglycemic crisis, random plasma glucose results greater than or equal to 200 mg/dL meet the criteria for diagnosis of diabetes. Reference: Standards of Medical Care in Diabetes 2016, [place] [employer]. Diabetes Care. 2016.39(Suppl 1). Interpretation and review of laboratory results Abnormal [facility] Potassium [Moles/Vol] [facility] Comment on above: Unable to assay. Spe cimen significantly hemolyzed. Protein [Mass/Vol] [facility] Comment on above: Unable to assay. Spe cimen hemolyzed. Sodium [Moles/Vol] 121 mmol/L Low 136 - 144 mmol/L [facility] Urea nitrogen [Mass/Vol] 16 mg/dL 7 - 21 mg/dL [facility] Magnesium SerPl-mCncon 01-22 Magnesium [Mass/Vol] 1.2 mg/dL Low 1.7-2.3 [facility] Comment on above: Order Comment: Speci men Type: BLOOD SPECIMENOrdering Facility: [facility] Address: [address] [place] [address] Performed By: #### 1 9123-9, 45512-6 ####[facility] HOSPITALLALIA [id number] [place] [address] [place] CBC W Auto Differential pane l (Bld)on 01-21-2024 Basophils (Bld) [#/Vol] 10*3/uL Normal <0.11 [facility] Comment on above: Order Comment: Speci men Type: BLOOD SPECIMENOrdering Facility: [facility] Address: [address] [place] [address] Performed By: #### 5 7021-8 ####[facility] [id number] [place] [address] [place] Basophils/100 WBC (Bld) 0.7 % Normal [facility] Comment on above: Order Comment: Speci men Type: BLOOD SPECIMENOrdering Facility: [facility] Address: [address] [place] [address] Performed By: #### 5 7021-8 ####[facility] ERIzabella [id number] [address] [place] Differential cell count method Nom (Bld) Auto Normal [facility] Comment on above: Order Comment: Speci men Type: BLOOD SPECIMENOrdering Facility: [facility] Address: [address] [place] [address] Performed By: #### 5 7021-8 ####[facility] HOSPITALLIA [id number] [place] [address] [place] Eosinophils (Bld) [#/Vol] 0.05 10*3/uL Normal <0.46 [facility] Comment on above: Order Comment: Speci men Type: BLOOD SPECIMENOrdering Facility: [facility] Address: [address] [place] [address] Performed By: #### 5 7021-8 ####[facility] DAVISFARMVILLEVIETA [id number] [place] [address] [place] Eosinophils/100 WBC (Bld) 1.9 % Normal [facility] Comment on above: Order Comment: Speci men Type: BLOOD SPECIMENOrdering Facility: [facility] Address: [address] [place] [address] Performed By: #### 5 7021-8 ####[facility] HOSPITALTARIQ [id number] [place] [address] [place] Erythrocyte distribution width (RBC) [Ratio] 11.9 % Normal 11.5-15.0 [facility] Comment on above: Order Comment: Speci men Type: BLOOD SPECIMENOrdering Facility: [facility] Address: [address] [place] [address] Performed By: #### 5 7021-8 ####[facility] HOSPITALLALIUNIVERSITY [facility] [id number] [place] [address] [place] Hematocrit (Bld) [Volume fraction] 32.0 % Low 36.0-46.0 [facility] Comment on above: Order Comment: Speci men Type: BLOOD SPECIMENOrdering Facility: [facility] Address: [address] [place] [address] Performed By: #### 5 7021-8 ####[facility] HOS[facility]ITALNCLIA [id number] [place] [address] [place] Hemoglobin (Bld) [Mass/Vol] 11.4 g/dL Low 11.5-15.5 [facility] Comment on above: Order Comment: Speci men Type: BLOOD SPECIMENOrdering Facility: [facility] Address: [address] [place] [address] Performed By: #### 5 7021-8 ####[facility] HOSPITALNCLIA [id number] [place] [address] [place] Immature granulocytes (Bld) [#/Vol] 0.11 10*3/uL High <0.10 [facility] Comment on above: Order Comment: Speci men Type: BLOOD SPECIMENOrdering Facility: [facility] Address: [address] [place] [address] Performed By: #### 5 7021-8 ####[facility] [id number] [place] [address] [place] Immature granulocytes/100 WBC (Bld) 4.1 % Normal [facility] Comment on above: Order Comment: Speci men Type: BLOOD SPECIMENOrdering Facility: [facility] Address: [address] [place] [address] Performed By: #### 5 7021-8 ####[facility] [id number] [place] [address] [place] Lymphocytes (Bld) [#/Vol] 1.13 10*3/uL Normal 1.00-4.00 [facility] Comment on above: Order Comment: Speci men Type: BLOOD SPECIMENOrdering Facility: [facility] Address: [address] [place] [address] Performed By: #### 5 7021-8 ####[facility] [id number] [place] [address] [place] Lymphocytes/100 WBC (Bld) 42.0 % Normal [facility] Comment on above: Order Comment: Speci men Type: BLOOD SPECIMENOrdering Facility: [facility] Address: [address] [place] [address] Performed By: #### 5 7021-8 ####[facility] [id number] [place] [address] [place] MCH (RBC) [Entitic mass] 31.4 pg Normal 26.0-34.0 [facility] Comment on above: Order Comment: Speci men Type: BLOOD SPECIMENOrdering Facility: [facility] Address: [address] [place] [address] Performed By: #### 5 7021-8 ####[facility] KARIVIETIzabella [id number] [address] [place] [facility] MCHC (RBC) [Mass/Vol] 35.6 g/dL Normal 30.5-36.0 [facility] Comment on above: Order Comment: Speci men Type: BLOOD SPECIMENOrdering Facility: [facility] Address: [address] [place] [address] Performed By: #### 5 7021-8 ####[facility] DAVISFARMVILLEVIETIzabella [id number] [place] [address] [place] MCV (RBC) [Entitic vol] 88.2 fL Normal 80.0-100.0 [facility] Comment on above: Order Comment: Speci men Type: BLOOD SPECIMENOrdering Facility: [facility] Address: [address] [place] [address] Performed By: #### 5 7021-8 ####[facility] HOSPITALVIETIzabella [id number] [place] [address] [place] Monocytes (Bld) [#/Vol] 0.47 10*3/uL Normal <0.87 [facility] Comment on above: Order Comment: Speci men Type: BLOOD SPECIMENOrdering Facility: [facility] Address: [address] [place] [address] Performed By: #### 5 7021-8 ####[facility] HOSPITALLALILIA [id number] [place] [address] [place] Monocytes/100 WBC (Bld) 17.5 % Normal [facility] Comment on above: Order Comment: Speci men Type: BLOOD SPECIMENOrdering Facility: [facility] Address: [address] [place] [address] Performed By: #### 5 7021-8 ####[facility] CENTERLI [id number] [place] [address] [place] Neutrophils (Bld) [#/Vol] 0.91 10*3/uL Low 1.45-7.50 [facility] Comment on above: Order Comment: Speci men Type: BLOOD SPECIMENOrdering Facility: [facility] Address: [address] [place] [address] Performed By: #### 5 7021-8 ####[facility] [id number] [place] [address] [place] Neutrophils/100 WBC (Bld) 33.8 % Normal [facility] Comment on above: Order Comment: Speci men Type: BLOOD SPECIMENOrdering Facility: [facility] Address: [address] [place] [address] Performed By: #### 5 7021-8 ####[facility] [id number] [place] [address] [place] Nucleated RBC (Bld) [#/Vol] 10*3/uL Normal <0.01 [facility] Comment on above: Order Comment: Speci men Type: BLOOD SPECIMENOrdering Facility: [facility] Address: [address] [place] [address] Performed By: #### 5 7021-8 ####[facility] [id number] [place] [address] [place] Nucleated RBC/100 WBC (Bld) [Ratio] 0.0 /100 WBC Normal [facility] Comment on above: Order Comment: Speci men Type: BLOOD SPECIMENOrdering Facility: [facility] Address: [address] [place] [address] Performed By: #### 5 7021-8 ####[facility] HOSPITALNCLI [id number] [place] [address] [place] Platelet mean volume (Bld) [Entitic vol] 9.5 fL Normal 9.0-12.7 [facility] Comment on above: Order Comment: Speci men Type: BLOOD SPECIMENOrdering Facility: [facility] Address: [address] [place] [address] Performed By: #### 5 7021-8 ####[facility] HOSPITALNCA [id number] [place] [address] [place] Platelets (Bld) [#/Vol] 266 10*3/uL Normal 150-400 [facility] Comment on above: Order Comment: Speci men Type: BLOOD SPECIMENOrdering Facility: [facility] Address: [address] [place] [address] Performed By: #### 5 7021-8 ####[facility] [id number] [place] [address] [place] RBC (Bld) [#/Vol] 3.63 10*6/uL Low 3.90-5.20 [facility] Comment on above: Order Comment: Speci men Type: BLOOD SPECIMENOrdering Facility: [facility] Address: [address] [place] [address] Performed By: #### 5 7021-8 ####[facility] [id number] [place] [address] [place] WBC (Bld) [#/Vol] 2.69 10*3/uL Low 3.70-11.00 [facility] Comment on above: Order Comment: Speci men Type: BLOOD SPECIMENOrdering Facility: [facility] Address: [address] [place] [address] Performed By: #### 5 7021-8 ####[facility]ITALNCLIA [id number] [place] [address] [place] CNPNon 01-21-2024 CNPN Normal [facility] Comprehensive metabolic 2000 panelon 01-21-2024 Albumin [Mass/Vol] 4.0 g/dL Normal 3.9-4.9 [facility] Comment on above: Order Comment: Speci men Type: BLOOD SPECIMENOrdering Facility: [facility] Address: [address] [place] [address] Performed By: #### 2 4323-8, ####[facility] [place] LABCLIA [id number] [place] [address] [place] ALP [Catalytic activity/Vol] 130 U/L High 34-123 [facility] Comment on above: Order Comment: Speci men Type: BLOOD SPECIMENOrdering Facility: [facility] Address: [address] [place] [address] Performed By: #### 2 4323-8, ####[facility] [place] LABCLIA [id number] [place] [address] [place] ALT With P-5'-P [Catalytic activity/Vol] 39 U/L High 7-38 [facility] Comment on above: Order Comment: Speci men Type: BLOOD SPECIMENOrdering Facility: [facility] Address: [address] [place] [address] Performed By: #### 2 4323-8, ####[facility] [place] LABCLIA [id number] [place] [address] [place] Anion gap [Moles/Vol] 9 mmol/L Normal 8-15 [facility] Comment on above: Order Comment: Speci men Type: BLOOD SPECIMENOrdering Facility: [facility] Address: [address] [place] [address] Performed By: #### 2 4323-8, ####[facility] [place] LABCLIA [id number] [place] [address] [place] AST With P-5'-P [Catalytic activity/Vol] 38 U/L High 13-35 [facility] Comment on above: Order Comment: Speci men Type: BLOOD SPECIMENOrdering Facility: [facility] Address: [address] [place] [address] Performed By: #### 2 432-8, ####[facility] [place] LABCLIA [id number] [place] [address] [place] Bilirubin [Mass/Vol] 0.2 mg/dL Normal 0.2-1.3 [facility] Comment on above: Order Comment: Speci men Type: BLOOD SPECIMENOrdering Facility: [facility] Address: [address] [place] [address] Performed By: #### 2 43204-12, ####[facility] [place] LABCLIA [id number] [place] [address] [place] Calcium [Mass/Vol] 9.9 mg/dL Normal 8.5-10.2 [facility] Comment on above: Order Comment: Speci men Type: BLOOD SPECIMENOrdering Facility: [facility] Address: [address] [place] [address] Performed By: #### 2 4322-09, ####[facility] [place] LABCLIA [id number] [place] [address] [place] Chloride [Moles/Vol] 99 mmol/L Normal 98-107 [facility] Comment on above: Order Comment: Speci men Type: BLOOD SPECIMENOrdering Facility: [facility] Address: [address] [place], [place] [address] Performed By: #### 2 43204-12, ####[facility] [place] LABCLIA [id number] [place] [address] [place] CO2 [Moles/Vol] 27 mmol/L Normal 22-30 [facility] Comment on above: Order Comment: Speci men Type: BLOOD SPECIMENOrdering Facility: [facility] Address: [address] [place], [place] [address] Performed By: #### 2 4328, ####[facility] [place] LABCLIA [id number] [place] [address] [place] Creatinine [Mass/Vol] 1.31 mg/dL High 0.58-0.96 [facility] Comment on above: Order Comment: [place] sales Type: BLOOD SPECIMENOrdering Facility: [facility] Address: [address] [place] [address] Performed By: #### 2 4323-8, ####[facility] [employer] LABCLIA [id number] [place] [address] [facility] Creatinine and Glomerular filtration rate.predicted panel (S/P/Bld) 46 mL/min/1.73m??? Low >=60 [facility] Comment on above: Order Comment: [place] sales Type: BLOOD SPECIMENOrdering Facility: [facility] Address: [address] [place] [address] Result Comment: Ann mated Glomerular Filtration Rate (eGFR) is calculated using the 2020 CKD-EPI creatinine equation. This equation utilizes serum creatinine, sex, and age as parameters. The creatinine assay has traceable calibration to isotope dilution-mass spectrometry. Refer to KDIGO guidelines for clinical interpretation. In patients with unstable renal function, e.g. those with acute kidney injury, the eGFR may not accurately reflect actual GFR. Performed By: #### 2 4323-8, ####[facility] [employer] LABCLIA [id number] [place] [address] [place] Glucose [Mass/Vol] 115 mg/dL High 74-99 [facility] Comment on above: Order Comment: [place] sales Type: BLOOD SPECIMENOrdering Facility: [facility] Address: [address] [place] [address] Result Comment: The [place] Diabetes Association (ADA) provides guidance for cutoff values for fasting glucose and random glucose. The ADA defines fasting as no caloric intake for at least 8 hours. Fasting plasma glucose results between 100 to 125 mg/dL indicate increased risk for diabetes (prediabetes).Fasting plasma glucose results greater than or equal to 126 mg/dL meet the criteria for diagnosis of diabetes. In the absence of unequivocal hyperglycemia, results should be confirmed by repeat testing. In a patient with classic symptoms of hyperglycemia or hyperglycemic crisis, random plasma glucose results greater than or equal to 200 mg/dL meet the criteria for diagnosis of diabetes.Reference: Standards of Medical Care in Diabetes 2016, [place] [employer]. Diabetes Care. 2016.39(Suppl 1). Performed By: #### 2 432-8, ####[facility] [place] LABCLIA [id number] [place] [address] [place] Potassium [Moles/Vol] 4.3 mmol/L Normal 3.7-5.1 [facility] Comment on above: Order Comment: Speci men Type: BLOOD SPECIMENOrdering Facility: [facility] Address: [address] [place], [place] [address] Performed By: #### 2 43204-12, ####LEYLA RAMOS [employer]I LABCLIA [id number] [place] [address] [place] Protein [Mass/Vol] 7.6 g/dL Normal 6.3-8.0 [facility] Comment on above: Order Comment: Speci men Type: BLOOD SPECIMENOrdering Facility: [facility] Address: [address] [place], [place] [address] Performed By: #### 2 4322-09, ####LEYLA RAMOS ProtoExchangeI LABCLIA [id number] [place] [address] [place] Sodium [Moles/Vol] 135 mmol/L Low 136-144 [facility] Comment on above: Order Comment: Speci men Type: BLOOD SPECIMENOrdering Facility: [facility] Address: [address] [place] [address] Performed By: #### 2 4322-09, ####[facility] [place] LABCLIA [id number] [place] [address] [place] Urea nitrogen [Mass/Vol] 16 mg/dL Normal 7-21 [facility] Comment on above: Order Comment: Speci men Type: BLOOD SPECIMENOrdering Facility: [facility] Address: [address] [place] [address] Performed By: #### 2 4322-09, ####[facility] LABCLIA [id number] [place] [address] [place] Magnesium SerPl-mCncon 01-20 Magnesium [Mass/Vol] 1.3 mg/dL Low 1.7-2.3 [facility] Comment on above: Order Comment: Speci men Type: BLOOD SPECIMENOrdering Facility: [facility] Address: [address] [place] [address] Performed By: #### 2 4323-8, ####[facility] [place] LABCLIA [id number] [place] [address] [place] CNPNon 01-20-2024 CNPN Normal [facility] CBC W Auto Differential pane l (Bld)on 01-18-2024 Basophils (Bld) [#/Vol] 10*3/uL Normal <0.11 [facility] Comment on above: Order Comment: Speci men Type: BLOOD SPECIMENOrdering Facility: [facility] Address: [address] [place] [address] Performed By: #### 5 7021-8 ####[facility] HOSPITALLALILIA [id number] [address] [place] Basophils/100 WBC (Bld) 0.0 % Normal [facility] Comment on above: Order Comment: Speci men Type: BLOOD SPECIMENOrdering Facility: [facility] Address: [address] [place] [address] Performed By: #### 5 7021-8 ####[facility] MILLFARMVILLENCLIA [id number] [address] [place] Differential cell count method Nom (Bld) Auto Normal [facility] Comment on above: Order Comment: Speci men Type: BLOOD SPECIMENOrdering Facility: [facility] Address: [address] [place] [address] Performed By: #### 5 7021-8 ####[facility] HOSPITALNCLIA [id number] [place] [address] [place] Eosinophils (Bld) [#/Vol] 0.06 10*3/uL Normal <0.46 [facility] Comment on above: Order Comment: Speci men Type: BLOOD SPECIMENOrdering Facility: [facility] Address: [address] [place] [address] Performed By: #### 5 7021-8 ####[facility] HOSPITALLIA [id number] [place] [address] [place] Eosinophils/100 WBC (Bld) 2.5 % Normal [facility] Comment on above: Order Comment: Speci men Type: BLOOD SPECIMENOrdering Facility: [facility] Address: [address] [place] [address] Performed By: #### 5 7021-8 ####[facility] HOSPITALNCNENITA [id number] [place] [address] [place] Erythrocyte distribution width (RBC) [Ratio] 11.6 % Normal 11.5-15.0 [facility] Comment on above: Order Comment: Speci men Type: BLOOD SPECIMENOrdering Facility: [facility] Address: [address] [place] [address] Performed By: #### 5 7021-8 ####[facility] HOSPITALNCNENITA [id number] [place] [address] [place] Hematocrit (Bld) [Volume fraction] 32.8 % Low 36.0-46.0 [facility] Comment on above: Order Comment: Speci men Type: BLOOD SPECIMENOrdering Facility: [facility] Address: [address] [place] [address] Performed By: #### 5 7021-8 ####[facility] HOSPITALNCLIA [id number] [place] [address] [place] Hemoglobin (Bld) [Mass/Vol] 11.6 g/dL Normal 11.5-15.5 [facility] Comment on above: Order Comment: Speci men Type: BLOOD SPECIMENOrdering Facility: [facility] Address: [address] [place] [address] Performed By: #### 5 7021-8 ####[facility] ERA [id number] [place] [address] [place] Immature granulocytes (Bld) [#/Vol] 10*3/uL Normal <0.10 [facility] Comment on above: Order Comment: Speci men Type: BLOOD SPECIMENOrdering Facility: [facility] Address: [address] [place] [address] Performed By: #### 5 7021-8 ####[facility] [id number] [place] [address] [place] Immature granulocytes/100 WBC (Bld) 0.8 % Normal [facility] Comment on above: Order Comment: Speci men Type: BLOOD SPECIMENOrdering Facility: [facility] Address: [address] [place] [address] Performed By: #### 5 7021-8 ####[facility] [id number] [place] [address] [place] Lymphocytes (Bld) [#/Vol] 0.97 10*3/uL Low 1.00-4.00 [facility] Comment on above: Order Comment: Speci men Type: BLOOD SPECIMENOrdering Facility: [facility] Address: [address] [place] [address] Performed By: #### 5 7021-8 ####[facility] [id number] [place] [address] [place] Lymphocytes/100 WBC (Bld) 39.8 % Normal [facility] Comment on above: Order Comment: Speci men Type: BLOOD SPECIMENOrdering Facility: [facility] Address: [address] [place] [address] Performed By: #### 5 7021-8 ####[facility] HOSPITALNCLIA [id number] [address] [facility] MCH (RBC) [Entitic mass] 31.3 pg Normal 26.0-34.0 [facility] Comment on above: Order Comment: Speci men Type: BLOOD SPECIMENOrdering Facility: [facility] Address: [address] [place] [address] Performed By: #### 5 7021-8 ####[facility] [id number] [place] [address] [place] MCHC (RBC) [Mass/Vol] 35.4 g/dL Normal 30.5-36.0 [facility] Comment on above: Order Comment: Speci men Type: BLOOD SPECIMENOrdering Facility: [facility] Address: [address] [place] [address] Performed By: #### 5 7021-8 ####[facility] [id number] [place] [address] [place] MCV (RBC) [Entitic vol] 88.4 fL Normal 80.0-100.0 [facility] Comment on above: Order Comment: Speci men Type: BLOOD SPECIMENOrdering Facility: [facility] Address: [address] [place] [address] Performed By: #### 5 7021-8 ####[facility] [id number] [place] [address] [place] Monocytes (Bld) [#/Vol] 0.27 10*3/uL Normal <0.87 [facility] Comment on above: Order Comment: Speci men Type: BLOOD SPECIMENOrdering Facility: [facility] Address: [address] [place] [address] Performed By: #### 5 7021-8 ####[facility] [id number] [place] [address] [place] Monocytes/100 WBC (Bld) 11.1 % Normal [facility] Comment on above: Order Comment: Speci men Type: BLOOD SPECIMENOrdering Facility: [facility] Address: [address] [place] [address] Performed By: #### 5 7021-8 ####[facility] [id number] [place] [address] [place] Neutrophils (Bld) [#/Vol] 1.12 10*3/uL Low 1.45-7.50 [facility] Comment on above: Order Comment: Speci men Type: BLOOD SPECIMENOrdering Facility: [facility] Address: [address] [place] [address] Performed By: #### 5 7021-8 ####[facility]PITALNCUNIVERS[facility] [id number] [place] [address] [place] Neutrophils/100 WBC (Bld) 45.8 % Normal [facility] Comment on above: Order Comment: Speci men Type: BLOOD SPECIMENOrdering Facility: [facility] Address: [address] [place] [address] Performed By: #### 5 7021-8 ####[facility] HOSPITALNCLI [id number] [place] [address] [place] Nucleated RBC (Bld) [#/Vol] 10*3/uL Normal <0.01 [facility] Comment on above: Order Comment: Speci men Type: BLOOD SPECIMENOrdering Facility: [facility] Address: [address] [place] [address] Performed By: #### 5 7021-8 ####[facility] HOSPITALNCLIA [id number] [place] [address] [place] Nucleated RBC/100 WBC (Bld) [Ratio] 0.0 /100 WBC Normal [facility] Comment on above: Order Comment: Speci men Type: BLOOD SPECIMENOrdering Facility: [facility] Address: [address] [place] [address] Performed By: #### 5 7021-8 ####[facility] DAVISJordanNCTHIAGOA [id number] [place] [address] [place] Platelet mean volume (Bld) [Entitic vol] 9.6 fL Normal 9.0-12.7 [facility] Comment on above: Order Comment: Speci men Type: BLOOD SPECIMENOrdering Facility: [facility] Address: [address] [place] [address] Performed By: #### 5 7021-8 ####[facility] HOSPITALNCLIA [id number] [place] [address] [place] Platelets (Bld) [#/Vol] 169 10*3/uL Normal 150-400 [facility] Comment on above: Order Comment: Speci men Type: BLOOD SPECIMENOrdering Facility: [facility] Address: [address] [place] [address] Performed By: #### 5 7021-8 ####[facility] HOSPITALNCLIA [id number] [place] [address] [place] RBC (Bld) [#/Vol] 3.71 10*6/uL Low 3.90-5.20 [facility] Comment on above: Order Comment: Speci men Type: BLOOD SPECIMENOrdering Facility: [facility] Address: [address] [place] [address] Performed By: #### 5 7021-8 ####[facility] HOSPITALNCLIA [id number] [place] [address] [place] WBC (Bld) [#/Vol] 2.44 10*3/uL Low 3.70-11.00 [facility] Comment on above: Order Comment: Speci men Type: BLOOD SPECIMENOrdering Facility: [facility] Address: [address] [place], [place] [address] Performed By: #### 5 7021-8 ####[facility] DAVISFARMVILLENCNENITA [id number] [place] [address] [place] CNOVSPon 01-18-2024 CNOVSP Normal [facility] Comprehensive metabolic 2000 panelon 01-18-2024 Albumin [Mass/Vol] 4.1 g/dL Normal 3.9-4.9 [facility] Comment on above: Order Comment: Speci men Type: BLOOD SPECIMENOrdering Facility: [facility] Address: [address] [place] [address] Performed By: #### 1 9123-9, 18058-6 ####[facility] HOSPITALNCTHIAGOA [id number] [place] [address] [place] ALP [Catalytic activity/Vol] 133 U/L High 34-123 [facility] Comment on above: Order Comment: Speci men Type: BLOOD SPECIMENOrdering Facility: [facility] Address: [address] [place] [address] Performed By: #### 1 9123-9, 59737-8 ####[facility] HOSPITALVIETA [id number] [place] [address] [place] ALT [Catalytic activity/Vol] 44 U/L High 7-38 [facility] Comment on above: Order Comment: Speci men Type: BLOOD SPECIMENOrdering Facility: [facility] Address: [address] [place] [address] Performed By: #### 1 9123-9, 11023-3 ####[facility] ERA [id number] [place] [address] [place] Anion gap [Moles/Vol] 10 mmol/L Normal 8-15 [facility] Comment on above: Order Comment: Speci men Type: BLOOD SPECIMENOrdering Facility: [facility] Address: [address] [place] [address] Performed By: #### 1 9123-9, 42475-3 ####[facility] KARINCTHIAGOA [id number] [place] [address] [place] AST [Catalytic activity/Vol] 38 U/L High 13-35 [facility] Comment on above: Order Comment: Speci men Type: BLOOD SPECIMENOrdering Facility: [facility] Address: [facility] [place] [address] Performed By: #### 1 9123-9, 08573-8 ####[facility] DAVISFARMVILLENCTHIAGOA [id number] [place] [address] [place] Bilirubin [Mass/Vol] 0.3 mg/dL Normal 0.2-1.3 [facility] Comment on above: Order Comment: Speci men Type: BLOOD SPECIMENOrdering Facility: [facility] Address: [address] [place] [address] Performed By: #### 1 9123-9, 38719-0 ####[facility] DAVISFARMVILLENCLIA [id number] [place] [address] [place] Calcium [Mass/Vol] 9.5 mg/dL Normal 8.5-10.2 [facility] Comment on above: Order Comment: Speci men Type: BLOOD SPECIMENOrdering Facility: [facility] Address: [facility] [place] [id number] Performed By: #### 1 9123-9, 37327-4 ####[facility] HOSPITALNCLIA [id number] [place] [address] [place] Chloride [Moles/Vol] 98 mmol/L Normal 98-107 [facility] Comment on above: Order Comment: Speci men Type: BLOOD SPECIMENOrdering Facility: [facility] Address: [facility] [place] [address] Performed By: #### 1 9123-9, ####[facility] HOSPITALNCLIA [id number] [place] [address] [place] CO2 [Moles/Vol] 28 mmol/L Normal 22-30 [facility] Comment on above: Order Comment: Speci men Type: BLOOD SPECIMENOrdering Facility: [facility] Address: [address] [place] [address] Performed By: #### 1 9123-9, ####[facility] [id number] [place] [address] [place] Creatinine [Mass/Vol] 1.39 mg/dL High 0.58-0.96 [facility] Comment on above: Order Comment: Speci men Type: BLOOD SPECIMENOrdering Facility: [facility] Address: [address] [place] [address] Performed By: #### 1 239, ####[facility] ERA [id number] [place] [address] [place] Creatinine and Glomerular filtration rate.predicted panel (S/P/Bld) 43 mL/min/1.73m??? Low >=60 [facility] Comment on above: Order Comment: Speci men Type: BLOOD SPECIMENOrdering Facility: [facility] Address: [address] [place] [address] Result Comment: Ann mated Glomerular Filtration Rate (eGFR) is calculated using the 2020 CKD-EPI creatinine equation. This equation utilizes serum creatinine, sex, and age as parameters. The creatinine assay has traceable calibration to isotope dilution-mass spectrometry. Refer to KDIGO guidelines for clinical interpretation. In patients with unstable renal function, e.g. those with acute kidney injury, the eGFR may not accurately reflect actual GFR. Performed By: #### 1 9123-9, ####[facility] HOSPITALNCLIA [id number] [place] [address] [place] Glucose [Mass/Vol] 101 mg/dL High 74-99 [facility] Comment on above: Order Comment: Speci men Type: BLOOD SPECIMENOrdering Facility: [facility] Address: [address] [place] [address] Result Comment: The [place] Diabetes [employer] (ADA) provides guidance for cutoff values for fasting glucose and random glucose. The ADA defines fasting as no caloric intake for at least 8 hours. Fasting plasma glucose results between 100 to 125 mg/dL indicate increased risk for diabetes (prediabetes).Fasting plasma glucose results greater than or equal to 126 mg/dL meet the criteria for diagnosis of diabetes. In the absence of unequivocal hyperglycemia, results should be confirmed by repeat testing. In a patient with classic symptoms of hyperglycemia or hyperglycemic crisis, random plasma glucose results greater than or equal to 200 mg/dL meet the criteria for diagnosis of diabetes.Reference: Standards of Medical Care in Diabetes 2016, [place] [employer]. Diabetes Care. 2016.39(Suppl 1). Performed By: #### 1 9123-9, 06001-4 ####[facility] MILLWLALILIIzabella [id number] [place] [address] [place] Potassium [Moles/Vol] 4.0 mmol/L Normal 3.7-5.1 [facility] Comment on above: Order Comment: [place] sales Type: BLOOD SPECIMENOrdering Facility: [facility] Address: [address] [place] [address] Performed By: #### 1 9123-9, 76240-0 ####[facility] MILLWLALILIIzabella [id number] [place] [address] [place] Protein [Mass/Vol] 7.6 g/dL Normal 6.3-8.0 [facility] Comment on above: Order Comment: [place] sales Type: BLOOD SPECIMENOrdering Facility: [facility] Address: [address] [place] [address] Performed By: #### 1 9123-9, 43288-1 ####[facility] MILLWLALILIIzabella [id number] [place] [address] [place] Sodium [Moles/Vol] 136 mmol/L Normal 136-144 [facility] Comment on above: Order Comment: Speci men Type: BLOOD SPECIMENOrdering Facility: [facility] Address: [address] [place] [address] Performed By: #### 1 9123-9, 91726-4 ####[facility] MILLFARMVILLENCLIA [id number] [place] [address] [place] Urea nitrogen [Mass/Vol] 22 mg/dL High 7-21 [facility] Comment on above: Order Comment: Speci men Type: BLOOD SPECIMENOrdering Facility: [facility] Address: [address] [place] [address] Performed By: #### 1 9123-9, 47397-3 ####[facility] HOSPITALLIA [id number] [place] [address] [place] Magnesium SerPl-mCncon 01-17 Magnesium [Mass/Vol] 1.0 mg/dL Low 1.7-2.3 [facility] Comment on above: Order Comment: Speci men Type: BLOOD SPECIMENOrdering Facility: [facility] Address: [address] [place] [address] Performed By: #### 1 9123-9, 78075-8 ####[facility] HOSPITALLIA [id number] [place] [address] [place] CNPNon 01-07-2024 CNPN Normal [facility] FREYA SCREENINGon 12-31-2023 FREYA SCREENING Normal [facility] MG Breast Screeningon 2023 IMPRESSION: There are no suspicious mammographic findings in either breast. Routine screening mammogram is recommended. Annual mammogram will be due in 1 year. BI-RADS Category 1: Negative RISK: Based on the Tyrer-Cuzick (TC) risk assessment model, this patient has a 5.9% lifetime risk of developing breast cancer, meaning they are at average risk for developing breast cancer. However, this is only an estimate based on available history provided on the patient's questionnaire. We encourage all patients to talk with their providers about these results, further recommendations for managing breast health, and appropriate supplemental screening options if the patient has dense breast tissue. Interpreting Radiologist: Ej Corey M.D. Electronically signed on: 12/31/2023 Acute Care Nurse: KARIME Transcribe Date/Time: Dec 31 2023 7:19A Dictated by: EJ COREY MD This examination was interpreted and the report reviewed and electronically signed by: EJ COREY MD on Dec 31 2023 12:28PM [facility] DIVISION OF RADIOLOGY * * *Final Report* * * DATE OF EXAM: Dec 31 2023 7:37AM [facility] 0581 - [facility] SCREENING / PROCEDURE REASON: Encounter for screening mammogram for breast cancer * * * * Physician Interpretation * * * * RESULT: [address] [address] #[id number] - [facility] SCREENING HISTORY: Patient is 63 years old and is seen for screening and is asymptomatic in both breasts. The patient has a history of lung cancer at age 63. COMPARISON STUDIES: The present examination has been compared to prior imaging studies dated 07/09/2018 (mammogram), 01/06/2020 (mammogram), 01/18/2021 (mammogram), 11/14/2021 (mammogram) and 12/26/2022 (mammogram). MAMMOGRAM TECHNIQUE: The study was acquired using full field digital technology and interpreted from soft copy. Computer-aided detection was utilized by the radiologist in the interpretation of this examination. MAMMOGRAM FINDINGS: There are scattered areas of fibroglandular density. No suspicious masses, calcifications or other abnormalities are seen in either breast. There are no significant changes from the prior study. DIVISION OF RADIOLOGY Provider, [facility] - 12/31/2023 * * *Final Report* * * DATE OF EXAM: Dec 31 2023 7:37AM [facility] 0581 - [facility] SCREENING / PROCEDURE REASON: Encounter for screening mammogram for breast cancer * * * * Physician Interpretation * * * * RESULT: [address] [place] [address] #[id number] - [facility] SCREENING HISTORY: Patient is 63 years old and is seen for screening and is asymptomatic in both breasts. The patient has a history of lung cancer at age 63. COMPARISON STUDIES: The present examination has been compared to prior imaging studies dated 07/09/2018 (mammogram), 01/06/2020 (mammogram), 01/18/2021 (mammogram), 11/14/2021 (mammogram) and 12/26/2022 (mammogram). MAMMOGRAM TECHNIQUE: The study was acquired using full field digital technology and interpreted from soft copy. Computer-aided detection was utilized by the radiologist in the interpretation of this examination. MAMMOGRAM FINDINGS: There are scattered areas of fibroglandular density. No suspicious masses, calcifications or other abnormalities are seen in either breast. There are no significant changes from the prior study. IMPRESSION IMPRESSION: There are no suspicious mammographic findings in either breast. Routine screening mammogram is recommended. Annual mammogram will be due in 1 year. BI-RADS Category 1: Negative RISK: Based on the Tyrer-Cuzick (TC) risk assessment model, this patient has a 5.9% lifetime risk of developing breast cancer, meaning they are at average risk for developing breast cancer. However, this is only an estimate based on available history provided on the patient's questionnaire. We encourage all patients to talk with their providers about these results, further recommendations for managing breast health, and appropriate supplemental screening options if the patient has dense breast tissue. Interpreting Radiologist: Ej Corey M.D. Electronically signed on: 12/31/2023 Acute Care Nurse: KARIME Transcribe Date/Time: Dec 31 2023 7:19A Dictated by: EJ COREY MD This examination was interpreted and the report reviewed and electronically signed by: EJ COREY MD on Dec 31 2023 12:28PM EST [facility] Radiology Study observation (narrative) [facility] Breast ScreeningOrdered B y: [facility] Provider on 12-31-2023 [facility] CBC W Auto Differential pane l (Bld)on 12-28-2023 Basophils (Bld) [#/Vol] 10*3/uL Normal <0.11 [facility] Comment on above: Order Comment: Speci men Type: BLOOD SPECIMENOrdering Facility: [facility] Address: [address] [place] [address] Performed By: #### 5 7021-8 ####[facility] MILLTOWNCLIA [id number] [place] [address] [place] Basophils/100 WBC (Bld) 0.3 % Normal [facility] Comment on above: Order Comment: Speci men Type: BLOOD SPECIMENOrdering Facility: [facility] Address: [address] [place] [address] Performed By: #### 5 7021-8 ####[facility] MILLWNCLIA [id number] [place] [address] [place] Differential cell count method Nom (Bld) Auto Normal [facility] Comment on above: Order Comment: Speci men Type: BLOOD SPECIMENOrdering Facility: [facility] Address: [address] [place] [address] Performed By: #### 5 7021-8 ####[facility] MILLWNCLIA [id number] [place] [address] [place] Eosinophils (Bld) [#/Vol] 0.04 10*3/uL Normal <0.46 [facility] Comment on above: Order Comment: Speci men Type: BLOOD SPECIMENOrdering Facility: [facility] Address: [address] [place] [address] Performed By: #### 5 7021-8 ####[facility] MILLTOWNCLIA [id number] [place] [address] [place] Eosinophils/100 WBC (Bld) 1.1 % Normal [facility] Comment on above: Order Comment: Speci men Type: BLOOD SPECIMENOrdering Facility: [facility] Address: [address] [place] [address] Performed By: #### 5 7021-8 ####[facility] MILLTOWNCLIA [id number] [place] [address] [place] Erythrocyte distribution width (RBC) [Ratio] 11.7 % Normal 11.5-15.0 [facility] Comment on above: Order Comment: Speci men Type: BLOOD SPECIMENOrdering Facility: [facility] Address: [address] [place] [address] Performed By: #### 5 7021-8 ####[facility] HOSPITALTARIQ [id number] [place] [address] [place] Hematocrit (Bld) [Volume fraction] 35.6 % Low 36.0-46.0 [facility] Comment on above: Order Comment: Speci men Type: BLOOD SPECIMENOrdering Facility: [facility] Address: [address] [place] [address] Performed By: #### 5 7021-8 ####[facility] HOSPITALTARIQ [id number] [place] [address] [place] Hemoglobin (Bld) [Mass/Vol] 12.4 g/dL Normal 11.5-15.5 [facility] Comment on above: Order Comment: Speci men Type: BLOOD SPECIMENOrdering Facility: [facility] Address: [address] [place] [address] Performed By: #### 5 7021-8 ####[facility] HOSPITALTARIQ [id number] [place] [address] [place] Immature granulocytes (Bld) [#/Vol] 10*3/uL Normal <0.10 [facility] Comment on above: Order Comment: Speci men Type: BLOOD SPECIMENOrdering Facility: [facility] Address: [address] [place] [address] Performed By: #### 5 7021-8 ####[facility] HOSPITALNCLIIzabella [id number] [place] [address] [place] Immature granulocytes/100 WBC (Bld) 0.3 % Normal [facility] Comment on above: Order Comment: Speci men Type: BLOOD SPECIMENOrdering Facility: [facility] Address: [address] [place] [address] Performed By: #### 5 7021-8 ####[facility]PITALNCUNIVERSITY [facility] [id number] [place] [address] [place] Lymphocytes (Bld) [#/Vol] 0.85 10*3/uL Low 1.00-4.00 [facility] Comment on above: Order Comment: Speci men Type: BLOOD SPECIMENOrdering Facility: [facility] Address: [address] [place] [address] Performed By: #### 5 7021-8 ####[facility] [id number] [place] [address] [place] Lymphocytes/100 WBC (Bld) 23.0 % Normal [facility] Comment on above: Order Comment: Speci men Type: BLOOD SPECIMENOrdering Facility: [facility] Address: [address] [place] [address] Performed By: #### 5 7021-8 ####[facility] [id number] [place] [address] [place] MCH (RBC) [Entitic mass] 31.2 pg Normal 26.0-34.0 [facility] Comment on above: Order Comment: Speci men Type: BLOOD SPECIMENOrdering Facility: [facility] Address: [address] [place] [address] Performed By: #### 5 7021-8 ####[facility] [id number] [place] [address] [place] MCHC (RBC) [Mass/Vol] 34.8 g/dL Normal 30.5-36.0 [facility] Comment on above: Order Comment: Speci men Type: BLOOD SPECIMENOrdering Facility: [facility] Address: [address] [place] [address] Performed By: #### 5 7021-8 ####[facility] HOSPITALNCLIA [id number] [place] [address] [place] MCV (RBC) [Entitic vol] 89.4 fL Normal 80.0-100.0 [facility] Comment on above: Order Comment: Speci men Type: BLOOD SPECIMENOrdering Facility: [facility] Address: [address] [place] [address] Performed By: #### 5 7021-8 ####[facility] HOSPITALNCLIA [id number] [place] [address] [place] Monocytes (Bld) [#/Vol] 0.61 10*3/uL Normal <0.87 [facility] Comment on above: Order Comment: Speci men Type: BLOOD SPECIMENOrdering Facility: [facility] Address: [address] [place] [address] Performed By: #### 5 7021-8 ####[facility] HOSPITALNCA [id number] [place] [address] [place] Monocytes/100 WBC (Bld) 16.5 % Normal [facility] Comment on above: Order Comment: Speci men Type: BLOOD SPECIMENOrdering Facility: [facility] Address: [address] [place] [address] Performed By: #### 5 7021-8 ####[facility] HOSPITALNCLIA [id number] [place] [address] [place] Neutrophils (Bld) [#/Vol] 2.17 10*3/uL Normal 1.45-7.50 [facility] Comment on above: Order Comment: Speci men Type: BLOOD SPECIMENOrdering Facility: [facility] Address: [address] [place] [address] Performed By: #### 5 7021-8 ####[facility] [id number] [place] [address] [place] Neutrophils/100 WBC (Bld) 58.8 % Normal [facility] Comment on above: Order Comment: Speci men Type: BLOOD SPECIMENOrdering Facility: [facility] Address: [address] [place] [address] Performed By: #### 5 7021-8 ####[facility] [id number] [place] [address] [place] Nucleated RBC (Bld) [#/Vol] 10*3/uL Normal <0.01 [facility] Comment on above: Order Comment: Speci men Type: BLOOD SPECIMENOrdering Facility: [facility] Address: [address] [place] [address] Performed By: #### 5 7021-8 ####[facility]PITALNCUNIVERSITY [facility] [id number] [place] [address] [place] Nucleated RBC/100 WBC (Bld) [Ratio] 0.0 /100 WBC Normal [facility] Comment on above: Order Comment: Speci men Type: BLOOD SPECIMENOrdering Facility: [facility] Address: [address] [place] [address] Performed By: #### 5 7021-8 ####[facility] HOSPITALLI [id number] [place] [address] [place] Platelet mean volume (Bld) [Entitic vol] 9.6 fL Normal 9.0-12.7 [facility] Comment on above: Order Comment: Speci men Type: BLOOD SPECIMENOrdering Facility: [facility] Address: [address] [place] [address] Performed By: #### 5 7021-8 ####[facility] HOSPITALNCLIA [id number] [place] [address] [place] Platelets (Bld) [#/Vol] 309 10*3/uL Normal 150-400 [facility] Comment on above: Order Comment: Speci men Type: BLOOD SPECIMENOrdering Facility: [facility] Address: [address] [place] [address] Performed By: #### 5 7021-8 ####[facility] KARINCLIA [id number] [place] [address] [place] RBC (Bld) [#/Vol] 3.98 10*6/uL Normal 3.90-5.20 [facility] Comment on above: Order Comment: Speci men Type: BLOOD SPECIMENOrdering Facility: [facility] Address: [address] [place] [address] Performed By: #### 5 7021-8 ####[facility] HOSPITALNCA [id number] [place] [address] [place] WBC (Bld) [#/Vol] 3.69 10*3/uL Low 3.70-11.00 [facility] Comment on above: Order Comment: Speci men Type: BLOOD SPECIMENOrdering Facility: [facility] Address: [address] [place] [address] Performed By: #### 5 7021-8 ####[facility] HOSPITALNCTHIAGOA [id number] [place] [address] [place] CNOVSPon 12-28-2023 CNOVSP Normal [facility] Comprehensive metabolic 2000 panelon 12-28-2023 Albumin [Mass/Vol] 4.2 g/dL Normal 3.9-4.9 [facility] Comment on above: Order Comment: Speci men Type: BLOOD SPECIMENOrdering Facility: [facility] Address: [address] [place] [address] Performed By: #### 2 4323-8, 37085-8 ####[facility] HOSPITALNCLIA [id number] [place] [address] [place] ALP [Catalytic activity/Vol] 187 U/L High 34-123 [facility] Comment on above: Order Comment: Speci men Type: BLOOD SPECIMENOrdering Facility: [facility] Address: [address] [place] [address] Performed By: #### 2 4323-8, ####[facility] HOSPITALNCLIA [id number] [place] [address] [place] ALT [Catalytic activity/Vol] 47 U/L High 7-38 [facility] Comment on above: Order Comment: Speci men Type: BLOOD SPECIMENOrdering Facility: [facility] Address: [address] [place] [address] Performed By: #### 2 4323-8, ####[facility] HOSPITALNCLIA [id number] [place] [address] [place] Anion gap [Moles/Vol] 11 mmol/L Normal 8-15 [facility] Comment on above: Order Comment: Speci men Type: BLOOD SPECIMENOrdering Facility: [facility] Address: [address] [place] [address] Performed By: #### 2 4323-8, ####[facility] HOSPITALNCLIA [id number] [place] [address] [place] AST [Catalytic activity/Vol] 32 U/L Normal 13-35 [facility] Comment on above: Order Comment: Speci men Type: BLOOD SPECIMENOrdering Facility: [facility] Address: [address] [place] [address] Performed By: #### 2 4323-8, ####[facility] HOSPITALNCLIA [id number] [place] [address] [place] Bilirubin [Mass/Vol] 0.3 mg/dL Normal 0.2-1.3 [facility] Comment on above: Order Comment: Speci men Type: BLOOD SPECIMENOrdering Facility: [facility] Address: [address] [id number] Performed By: #### 2 4323-8, ####[facility] KARIVIETA [id number] [place] [address] [place] Calcium [Mass/Vol] 9.9 mg/dL Normal 8.5-10.2 [facility] Comment on above: Order Comment: Speci men Type: BLOOD SPECIMENOrdering Facility: [facility] Address: [address] [place], [place] [address] Performed By: #### 2 4323-8, ####[facility] DAVISCHATA [id number] [place] [address] [place] Chloride [Moles/Vol] 101 mmol/L Normal 98-107 [facility] Comment on above: Order Comment: Speci men Type: BLOOD SPECIMENOrdering Facility: [facility] Address: [address] [place], [place] [address] Performed By: #### 2 4323-8, ####[facility] DAVISFARMVILLEVIETA [id number] [place] [address] [place] CO2 [Moles/Vol] 24 mmol/L Normal 22-30 [facility] Comment on above: Order Comment: Speci men Type: BLOOD SPECIMENOrdering Facility: [facility] Address: [address] [place] [address] Performed By: #### 2 4323-8, ####[facility] DAVISMARCIWNCLIA [id number] [place] [address] [place] Creatinine [Mass/Vol] 0.98 mg/dL High 0.58-0.96 [facility] Comment on above: Order Comment: Speci men Type: BLOOD SPECIMENOrdering Facility: [facility] Address: [address] [place] [address] Performed By: #### 2 4323-8, 56981-7 ####[facility] HOSPITALWNCLIA [id number] [place] [address] [place] Creatinine and Glomerular filtration rate.predicted panel (S/P/Bld) 65 mL/min/1.73m??? Normal >=60 [facility] Comment on above: Order Comment: [place] sales Type: BLOOD SPECIMENOrdering Facility: [facility] Address: [address] [place] [address] Result Comment: Ann mated Glomerular Filtration Rate (eGFR) is calculated using the 2020 CKD-EPI creatinine equation. This equation utilizes serum creatinine, sex, and age as parameters. The creatinine assay has traceable calibration to isotope dilution-mass spectrometry. Refer to KDIGO guidelines for clinical interpretation. In patients with unstable renal function, e.g. those with acute kidney injury, the eGFR may not accurately reflect actual GFR. Performed By: #### 2 4323-8, 34038-6 ####[facility] HOSPITALLIA [id number] [place] [address] [place] Glucose [Mass/Vol] 95 mg/dL Normal 74-99 [facility] Comment on above: Order Comment: [place] sales Type: BLOOD SPECIMENOrdering Facility: [facility] Address: [address] [place] [address] Result Comment: The [place] [employer] (ADA) provides guidance for cutoff values for fasting glucose and random glucose. The ADA defines fasting as no caloric intake for at least 8 hours. Fasting plasma glucose results between 100 to 125 mg/dL indicate increased risk for diabetes (prediabetes).Fasting plasma glucose results greater than or equal to 126 mg/dL meet the criteria for diagnosis of diabetes. In the absence of unequivocal hyperglycemia, results should be confirmed by repeat testing. In a patient with classic symptoms of hyperglycemia or hyperglycemic crisis, random plasma glucose results greater than or equal to 200 mg/dL meet the criteria for diagnosis of diabetes.Reference: Standards of Medical Care in Diabetes 2016, [place] [employer]. Diabetes Care. 2016.39(Suppl 1). Performed By: #### 2 4323-8, 66907-9 ####[facility] HOSPITALLIA [id number] [place] [address] [place] Potassium [Moles/Vol] 3.8 mmol/L Normal 3.7-5.1 [facility] Comment on above: Order Comment: Speci men Type: BLOOD SPECIMENOrdering Facility: [facility] Address: [address] [place] [address] Performed By: #### 2 4323-8, ####[facility] MILLTOWNCLIA [id number] [place] [address] [place] Protein [Mass/Vol] 7.9 g/dL Normal 6.3-8.0 [facility] Comment on above: Order Comment: Speci men Type: BLOOD SPECIMENOrdering Facility: [facility] Address: [address] [place] [address] Performed By: #### 2 4323-8, ####[facility] MILLWNCLIA [id number] [place] [address] [place] Sodium [Moles/Vol] 136 mmol/L Normal 136-144 [facility] Comment on above: Order Comment: Speci men Type: BLOOD SPECIMENOrdering Facility: [facility] Address: [address] [place] [address] Performed By: #### 2 4323-8, ####[facility] MILLTOWNCLIA [id number] [place] [address] [place] Urea nitrogen [Mass/Vol] 22 mg/dL High 7-21 [facility] Comment on above: Order Comment: Speci men Type: BLOOD SPECIMENOrdering Facility: [facility] Address: [address] [place] [address] Performed By: #### 2 4323-8, 19631-7 ####[facility] MILLTOWNCLIA [id number] [place] [address] [place] Magnesium SerPl-mCncon 12-27 Magnesium [Mass/Vol] 1.6 mg/dL Low 1.7-2.3 [facility] Comment on above: Order Comment: Speci men Type: BLOOD SPECIMENOrdering Facility: [facility] Address: [address] [place] [address] Performed By: #### 2 4323-8, 66748-4 ####[facility] HOSPITALTARIQ [id number] [place] [address] [place] CBC W Auto Differential pane l (Bld)on 12-24-2023 Basophils (Bld) [#/Vol] 10*3/uL Normal <0.11 [facility] Comment on above: Order Comment: Speci men Type: BLOOD SPECIMENOrdering Facility: [facility] Address: [address] [place] [address] Performed By: #### 5 7021-8 ####[facility] [id number] [place] [address] [place] Basophils/100 WBC (Bld) 0.2 % Normal [facility] Comment on above: Order Comment: Speci men Type: BLOOD SPECIMENOrdering Facility: [facility] Address: [address] [place] [address] Performed By: #### 5 7021-8 ####[facility] HOSPITALLALIIzabella [id number] [address] STATES OF [facility] Differential cell count method Nom (Bld) Auto Normal [facility] Comment on above: Order Comment: Speci men Type: BLOOD SPECIMENOrdering Facility: [facility] Address: [address] [place] [address] Performed By: #### 5 7021-8 ####[facility] HOSPITALLIA [id number] [place] [address] [place] Eosinophils (Bld) [#/Vol] 0.04 10*3/uL Normal <0.46 [facility] Comment on above: Order Comment: Speci men Type: BLOOD SPECIMENOrdering Facility: [facility] Address: [address] [place] [address] Performed By: #### 5 7021-8 ####[facility]OSPITALNCUNIVERSITY [facility] [id number] [place] [address] [place] Eosinophils/100 WBC (Bld) 0.6 % Normal [facility] Comment on above: Order Comment: Speci men Type: BLOOD SPECIMENOrdering Facility: [facility] Address: [address] [place] [address] Performed By: #### 5 7021-8 ####[facility]PITALNCUNIVERSITY [facility] [id number] [place] [address] [place] Erythrocyte distribution width (RBC) [Ratio] 11.7 % Normal 11.5-15.0 [facility] Comment on above: Order Comment: Speci men Type: BLOOD SPECIMENOrdering Facility: [facility] Address: [address] [place] [address] Performed By: #### 5 7021-8 ####[facility] [id number] [place] [address] [place] Hematocrit (Bld) [Volume fraction] 36.3 % Normal 36.0-46.0 [facility] Comment on above: Order Comment: Speci men Type: BLOOD SPECIMENOrdering Facility: [facility] Address: [address] [place] [address] Performed By: #### 5 7021-8 ####[facility] HOSPITALNCLI [id number] [place] [address] [place] Hemoglobin (Bld) [Mass/Vol] 12.7 g/dL Normal 11.5-15.5 [facility] Comment on above: Order Comment: Speci men Type: BLOOD SPECIMENOrdering Facility: [facility] Address: [address] [place] [address] Performed By: #### 5 7021-8 ####[facility] MILLMARCIWNCLIA [id number] [place] [address] [place] Immature granulocytes (Bld) [#/Vol] 10*3/uL Normal <0.10 [facility] Comment on above: Order Comment: Speci men Type: BLOOD SPECIMENOrdering Facility: [facility] Address: [address] [place] [address] Performed By: #### 5 7021-8 ####[facility] HOSPITALWNCLIA [id number] [place] [address] [place] Immature granulocytes/100 WBC (Bld) 0.3 % Normal [facility] Comment on above: Order Comment: Speci men Type: BLOOD SPECIMENOrdering Facility: [facility] Address: [address] [place] [address] Performed By: #### 5 7021-8 ####[facility] HOSPITALNCLIA [id number] [place] [address] [place] Lymphocytes (Bld) [#/Vol] 0.82 10*3/uL Low 1.00-4.00 [facility] Comment on above: Order Comment: Speci men Type: BLOOD SPECIMENOrdering Facility: [facility] Address: [address] [place] [address] Performed By: #### 5 7021-8 ####[facility] MILLTOWNCLIA [id number] [place] [address] [place] Lymphocytes/100 WBC (Bld) 12.8 % Normal [facility] Comment on above: Order Comment: Speci men Type: BLOOD SPECIMENOrdering Facility: [facility] Address: [address] [place] [address] Performed By: #### 5 7021-8 ####[facility] MILLWNCLIA [id number] [place] [address] [place] MCH (RBC) [Entitic mass] 31.1 pg Normal 26.0-34.0 [facility] Comment on above: Order Comment: Speci men Type: BLOOD SPECIMENOrdering Facility: [facility] Address: [address] [place] [address] Performed By: #### 5 7021-8 ####[facility] HOSPITALLALIUNIVERSITY OF [facility] [id number] [address] [place] MCHC (RBC) [Mass/Vol] 35.0 g/dL Normal 30.5-36.0 [facility] Comment on above: Order Comment: Speci men Type: BLOOD SPECIMENOrdering Facility: [facility] Address: [address] [place] [address] Performed By: #### 5 7021-8 ####[facility] HOSPITALLALIUNIVERSITY OF [facility]PITAL [id number] [place] [address] [place] MCV (RBC) [Entitic vol] 89.0 fL Normal 80.0-100.0 [facility] Comment on above: Order Comment: Speci men Type: BLOOD SPECIMENOrdering Facility: [facility] Address: [address] [place] [address] Performed By: #### 5 7021-8 ####[facility] HOSPITALTARIQ [id number] [place] [address] [place] Monocytes (Bld) [#/Vol] 0.45 10*3/uL Normal <0.87 [facility] Comment on above: Order Comment: Speci men Type: BLOOD SPECIMENOrdering Facility: [facility] Address: [address] [place] [address] Performed By: #### 5 7021-8 ####[facility] HOSPITALNCLI [id number] [place] [address] [place] Monocytes/100 WBC (Bld) 7.0 % Normal [facility] Comment on above: Order Comment: Speci men Type: BLOOD SPECIMENOrdering Facility: [facility] Address: [address] [place] [address] Performed By: #### 5 7021-8 ####[facility] DAVISFARMVILLENCLIA [id number] [place] [address] [place] Neutrophils (Bld) [#/Vol] 5.09 10*3/uL Normal 1.45-7.50 [facility] Comment on above: Order Comment: Speci men Type: BLOOD SPECIMENOrdering Facility: [facility] Address: [address] [place] [address] Performed By: #### 5 7021-8 ####[facility] ERA [id number] [place] [address] [place] Neutrophils/100 WBC (Bld) 79.1 % Normal [facility] Comment on above: Order Comment: Speci men Type: BLOOD SPECIMENOrdering Facility: [facility] Address: [address] [place] [address] Performed By: #### 5 7021-8 ####[facility] ERA [id number] [place] [address] [place] Nucleated RBC (Bld) [#/Vol] 10*3/uL Normal <0.01 [facility] Comment on above: Order Comment: Speci men Type: BLOOD SPECIMENOrdering Facility: [facility] Address: [address] [place] [address] Performed By: #### 5 7021-8 ####[facility] ERA [id number] [place] [address] [place] Nucleated RBC/100 WBC (Bld) [Ratio] 0.0 /100 WBC Normal [facility] Comment on above: Order Comment: Speci men Type: BLOOD SPECIMENOrdering Facility: [facility] Address: [address] [place] [address] Performed By: #### 5 7021-8 ####[facility] MILLMARCIWNCLIA [id number] [place] [address] [place] Platelet mean volume (Bld) [Entitic vol] 9.9 fL Normal 9.0-12.7 [facility] Comment on above: Order Comment: Speci men Type: BLOOD SPECIMENOrdering Facility: [facility] Address: [address] [place] [address] Performed By: #### 5 7021-8 ####[facility] HOSPITALWNCLIA [id number] [place] [address] [place] Platelets (Bld) [#/Vol] 195 10*3/uL Normal 150-400 [facility] Comment on above: Order Comment: Speci men Type: BLOOD SPECIMENOrdering Facility: [facility] Address: [address] [place] [address] Performed By: #### 5 7021-8 ####[facility] HOSPITALNCLIA [id number] [place] [address] [place] RBC (Bld) [#/Vol] 4.08 10*6/uL Normal 3.90-5.20 [facility] Comment on above: Order Comment: Speci men Type: BLOOD SPECIMENOrdering Facility: [facility] Address: [address] [place], [place] [address] Performed By: #### 5 7021-8 ####[facility] RANJITHWNCLIA [id number] [place] [address] [place] WBC (Bld) [#/Vol] 6.43 10*3/uL Normal 3.70-11.00 [facility] Comment on above: Order Comment: Speci men Type: BLOOD SPECIMENOrdering Facility: [facility] Address: [address] [place], [place] [address] Performed By: #### 5 7021-8 ####[facility] HOSPITALLIA [id number] [place] [address] [place] Comprehensive metabolic 2000 panelon 12-24-2023 Albumin [Mass/Vol] 4.0 g/dL Normal 3.9-4.9 [facility] Comment on above: Order Comment: Speci men Type: BLOOD SPECIMENOrdering Facility: [facility] Address: [address] [place] [address] Performed By: #### 2 4323-8, ####[facility] HOSPITALLIA [id number] [place] [address] [place] ALP [Catalytic activity/Vol] 175 U/L High 34-123 [facility] Comment on above: Order Comment: Speci men Type: BLOOD SPECIMENOrdering Facility: [facility] Address: [address] [place] [address] Performed By: #### 2 4323-8, ####[facility] HOSPITALLIA [id number] [place] [address] [place] ALT [Catalytic activity/Vol] 51 U/L High 7-38 [facility] Comment on above: Order Comment: Speci men Type: BLOOD SPECIMENOrdering Facility: [facility] Address: [address] [place] [address] Performed By: #### 2 4323-8, ####[facility] HOSPITALWLALILIA [id number] [place] [address] [place] Anion gap [Moles/Vol] 9 mmol/L Normal 8-15 [facility] Comment on above: Order Comment: Speci men Type: BLOOD SPECIMENOrdering Facility: [facility] Address: [address] [place] [address] Performed By: #### 2 4323-8, 47571-8 ####[facility] HOSPITALNCLIA [id number] [place] [address] [place] AST [Catalytic activity/Vol] 39 U/L High 13-35 [facility] Comment on above: Order Comment: Speci men Type: BLOOD SPECIMENOrdering Facility: [facility] Address: [address] [place] [address] Performed By: #### 2 4323-8, 60094-7 ####[facility] MILLTOWLALILIA [id number] [place] [address] [place] Bilirubin [Mass/Vol] 0.5 mg/dL Normal 0.2-1.3 [facility] Comment on above: Order Comment: Speci men Type: BLOOD SPECIMENOrdering Facility: [facility] Address: [address] [place] [address] Performed By: #### 2 4323-8, 42808-6 ####[facility] HOSPITALWVIETA [id number] [place] [address] [place] Calcium [Mass/Vol] 9.8 mg/dL Normal 8.5-10.2 [facility] Comment on above: Order Comment: Speci men Type: BLOOD SPECIMENOrdering Facility: [facility] Address: [address] [place] [address] Performed By: #### 2 4323-8, 86782-1 ####[facility] HOSPITALWLALILIA [id number] [place] [address] [place] Chloride [Moles/Vol] 102 mmol/L Normal 98-107 [facility] Comment on above: Order Comment: Speci men Type: BLOOD SPECIMENOrdering Facility: [facility] Address: [address] [place] [address] Performed By: #### 2 4323-8, ####[facility] MILLTOWNCLIA [id number] [place] [address] [place] CO2 [Moles/Vol] 23 mmol/L Normal 22-30 [facility] Comment on above: Order Comment: Speci men Type: BLOOD SPECIMENOrdering Facility: [facility] Address: [address] [place] [address] Performed By: #### 2 4323-8, ####[facility] HOSPITALNCLIA [id number] [place] [address] [place] Creatinine [Mass/Vol] 1.28 mg/dL High 0.58-0.96 [facility] Comment on above: Order Comment: Speci men Type: BLOOD SPECIMENOrdering Facility: [facility] Address: [address] [place] [address] Performed By: #### 2 43238, ####[facility] HOSPITALNCLIA [id number] [place] [address] [place] Creatinine and Glomerular filtration rate.predicted panel (S/P/Bld) 47 mL/min/1.73m??? Low >=60 [facility] Comment on above: Order Comment: Speci men Type: BLOOD SPECIMENOrdering Facility: [facility] Address: [address] [place] [address] Result Comment: Ann mated Glomerular Filtration Rate (eGFR) is calculated using the 2020 CKD-EPI creatinine equation. This equation utilizes serum creatinine, sex, and age as parameters. The creatinine assay has traceable calibration to isotope dilution-mass spectrometry. Refer to KDIGO guidelines for clinical interpretation. In patients with unstable renal function, e.g. those with acute kidney injury, the eGFR may not accurately reflect actual GFR. Performed By: #### 2 4323-8, ####[facility] ERA [id number] [place] [address] [place] Glucose [Mass/Vol] 119 mg/dL High 74-99 [facility] Comment on above: Order Comment: Speci men Type: BLOOD SPECIMENOrdering Facility: [facility] Address: [address], [place] [address] Result Comment: The [place] Diabetes Association (ADA) provides guidance for cutoff values for fasting glucose and random glucose. The ADA defines fasting as no caloric intake for at least 8 hours. Fasting plasma glucose results between 100 to 125 mg/dL indicate increased risk for diabetes (prediabetes).Fasting plasma glucose results greater than or equal to 126 mg/dL meet the criteria for diagnosis of diabetes. In the absence of unequivocal hyperglycemia, results should be confirmed by repeat testing. In a patient with classic symptoms of hyperglycemia or hyperglycemic crisis, random plasma glucose results greater than or equal to 200 mg/dL meet the criteria for diagnosis of diabetes.Reference: Standards of Medical Care in Diabetes 2016, [place] Diabetes Association. Diabetes Care. 2016.39(Suppl 1). Performed By: #### 2 4323-8, 28640-2 ####[facility] [id number] [place] [address] [place] Potassium [Moles/Vol] 3.8 mmol/L Normal 3.7-5.1 [facility] Comment on above: Order Comment: Speci men Type: BLOOD SPECIMENOrdering Facility: [facility] Address: [address] [place] [address] Performed By: #### 2 4323-8, ####[facility] [id number] [place] [address] [place] Protein [Mass/Vol] 7.5 g/dL Normal 6.3-8.0 [facility] Comment on above: Order Comment: Speci men Type: BLOOD SPECIMENOrdering Facility: [facility] Address: [address] [place] [address] Performed By: #### 2 4323-8, ####[facility] ERA [id number] [place] [address] [place] Sodium [Moles/Vol] 134 mmol/L Low 136-144 [facility] Comment on above: Order Comment: Speci men Type: BLOOD SPECIMENOrdering Facility: [facility] Address: [address] [place] [address] Performed By: #### 2 4323-8, 34454-0 ####[facility] MILLMARCIWNCLIA [id number] [place] [address] [place] Urea nitrogen [Mass/Vol] 21 mg/dL Normal 7-21 [facility] Comment on above: Order Comment: Speci men Type: BLOOD SPECIMENOrdering Facility: [facility] Address: [address] [place] [address] Performed By: #### 2 4323-8, 39680-6 ####[facility] MILLBERENICELIA [id number] [place] [address] [place] Magnesium [facility] 12-23 Magnesium [Mass/Vol] 1.6 mg/dL Low 1.7-2.3 [facility] Comment on above: Order Comment: Speci men Type: BLOOD SPECIMENOrdering Facility: [facility] Address: [address] [place] [address] Performed By: #### 2 4323-8, 03246-2 ####[facility] MAURIA [id number] [place] [address] [place] Basic metabolic 2000 panelon 12-20-2023 Anion gap [Moles/Vol] 9 mmol/L Normal 8-15 [facility] Comment on above: Order Comment: Speci men Type: BLOOD SPECIMENOrdering Facility: [facility] Address: [address] [place], [place] [address] Performed By: #### 2 4321-2 ####[facility] MILLJUANJONCLIA [id number] [place] [address] [place] Calcium [Mass/Vol] 10.0 mg/dL Normal 8.5-10.2 [facility] Comment on above: Order Comment: Speci men Type: BLOOD SPECIMENOrdering Facility: [facility] Address: [address] [place] [address] Performed By: #### 2 4321-2 ####[facility] MILLWNCLIA [id number] [place] [address] [place] Chloride [Moles/Vol] 101 mmol/L Normal 98-107 [facility] Comment on above: Order Comment: Speci men Type: BLOOD SPECIMENOrdering Facility: [facility] Address: [address] [place] [address] Performed By: #### 2 4321-2 ####[facility] HOSPITALLIA [id number] [place] [address] [place] CO2 [Moles/Vol] 27 mmol/L Normal 22-30 [facility] Comment on above: Order Comment: Speci men Type: BLOOD SPECIMENOrdering Facility: [facility] Address: [address] [place] [address] Performed By: #### 2 4321-2 ####[facility] HOSPITALLIA [id number] [place] [address] [place] Creatinine [Mass/Vol] 1.27 mg/dL High 0.58-0.96 [facility] Comment on above: Order Comment: Speci men Type: BLOOD SPECIMENOrdering Facility: [facility] Address: [address] [place] [address] Performed By: #### 2 4321-2 ####[facility] [id number] [address] [place] Creatinine and Glomerular filtration rate.predicted panel (S/P/Bld) 48 mL/min/1.73m??? Low >=60 [facility] Comment on above: Order Comment: Speci men Type: BLOOD SPECIMENOrdering Facility: [facility] Address: [address] [place] [address] Result Comment: Ann mated Glomerular Filtration Rate (eGFR) is calculated using the 2020 CKD-EPI creatinine equation. This equation utilizes serum creatinine, sex, and age as parameters. The creatinine assay has traceable calibration to isotope dilution-mass spectrometry. Refer to KDIGO guidelines for clinical interpretation. In patients with unstable renal function, e.g. those with acute kidney injury, the eGFR may not accurately reflect actual GFR. Performed By: #### 2 4321-2 ####[facility] HOSPITALWNCLIA [id number] [place] [address] [place] Glucose [Mass/Vol] 79 mg/dL Normal 74-99 [facility] Comment on above: Order Comment: Speci men Type: BLOOD SPECIMENOrdering Facility: [facility] Address: [address] [place], [place] [address] Result Comment: The [place] Diabetes Association (ADA) provides guidance for cutoff values for fasting glucose and random glucose. The ADA defines fasting as no caloric intake for at least 8 hours. Fasting plasma glucose results between 100 to 125 mg/dL indicate increased risk for diabetes (prediabetes).Fasting plasma glucose results greater than or equal to 126 mg/dL meet the criteria for diagnosis of diabetes. In the absence of unequivocal hyperglycemia, results should be confirmed by repeat testing. In a patient with classic symptoms of hyperglycemia or hyperglycemic crisis, random plasma glucose results greater than or equal to 200 mg/dL meet the criteria for diagnosis of diabetes.Reference: Standards of Medical Care in Diabetes 2016, [place] [employer]. Diabetes Care. 2016.39(Suppl 1). Performed By: #### 2 4321-2 ####[facility] HOSPITALLIA [id number] [place] [address] [place] Potassium [Moles/Vol] 3.8 mmol/L Normal 3.7-5.1 [facility] Comment on above: Order Comment: Speci men Type: BLOOD SPECIMENOrdering Facility: [facility] Address: [address] [place] [address] Performed By: #### 2 4321-2 ####[facility] HOSPITALWNCLIA [id number] [place] [address] [place] Sodium [Moles/Vol] 137 mmol/L Normal 136-144 [facility] Comment on above: Order Comment: Speci men Type: BLOOD SPECIMENOrdering Facility: [facility] Address: [address] [place] [address] Performed By: #### 2 4321-2 ####[facility] DAVISFARMVILLEVIETIzabella [id number] [place] [address] [place] Urea nitrogen [Mass/Vol] 29 mg/dL High 7-21 [facility] Comment on above: Order Comment: Speci men Type: BLOOD SPECIMENOrdering Facility: [facility] Address: [address] [place] [address] Performed By: #### 2 4321-2 ####[facility] HOSPITALLALIIzabella [id number] [place] [address] [place] CBC W Auto Differential pane l (Bld)on 12-17-2023 Basophils (Bld) [#/Vol] 0.03 10*3/uL Normal <0.11 [facility] Comment on above: Order Comment: Speci men Type: BLOOD SPECIMENOrdering Facility: [facility] Address: [address] [place] [address] Performed By: #### 5 7021-8 ####[facility] [id number] [place] [address] [place] Basophils/100 WBC (Bld) 0.5 % Normal [facility] Comment on above: Order Comment: Speci men Type: BLOOD SPECIMENOrdering Facility: [facility] Address: [address] [place] [address] Performed By: #### 5 7021-8 ####[facility] [id number] [address] STATES OF [facility] Differential cell count method Nom (Bld) Auto Normal [facility] Comment on above: Order Comment: Speci men Type: BLOOD SPECIMENOrdering Facility: [facility] Address: [address] [place] [address] Performed By: #### 5 7021-8 ####[facility] MILLTOWNCLIA [id number] [place] [address] [place] Eosinophils (Bld) [#/Vol] 0.05 10*3/uL Normal <0.46 [facility] Comment on above: Order Comment: Speci men Type: BLOOD SPECIMENOrdering Facility: [facility] Address: [address] [place] [address] Performed By: #### 5 7021-8 ####[facility] HOSPITALLIA [id number] [place] [address] [place] Eosinophils/100 WBC (Bld) 0.8 % Normal [facility] Comment on above: Order Comment: Speci men Type: BLOOD SPECIMENOrdering Facility: [facility] Address: [address] [place] [address] Performed By: #### 5 7021-8 ####[facility] HOSPITALLIA [id number] [place] [address] [place] Erythrocyte distribution width (RBC) [Ratio] 11.5 % Normal 11.5-15.0 [facility] Comment on above: Order Comment: Speci men Type: BLOOD SPECIMENOrdering Facility: [facility] Address: [address] [place] [address] Performed By: #### 5 7021-8 ####[facility] HOSPITALWLALILIA [id number] [place] [address] [place] Hematocrit (Bld) [Volume fraction] 40.5 % Normal 36.0-46.0 [facility] Comment on above: Order Comment: Speci men Type: BLOOD SPECIMENOrdering Facility: [facility] Address: [address] [place] [address] Performed By: #### 5 7021-8 ####[facility] HOSPITALNCLIA [id number] [place] [address] [place] Hemoglobin (Bld) [Mass/Vol] 14.2 g/dL Normal 11.5-15.5 [facility] Comment on above: Order Comment: Speci men Type: BLOOD SPECIMENOrdering Facility: [facility] Address: [address] [place] [address] Performed By: #### 5 7021-8 ####[facility] HOSPITALWNCLIA [id number] [place] [address] [place] Immature granulocytes (Bld) [#/Vol] 10*3/uL Normal <0.10 [facility] Comment on above: Order Comment: Speci men Type: BLOOD SPECIMENOrdering Facility: [facility] Address: [address] [place] [address] Performed By: #### 5 7021-8 ####[facility] HOSPITALLIA [id number] [place] [address] [place] Immature granulocytes/100 WBC (Bld) 0.2 % Normal [facility] Comment on above: Order Comment: Speci men Type: BLOOD SPECIMENOrdering Facility: [facility] Address: [address] [place] [address] Performed By: #### 5 7021-8 ####[facility] HOSPITALLIA [id number] [place] [address] [place] Lymphocytes (Bld) [#/Vol] 1.08 10*3/uL Normal 1.00-4.00 [facility] Comment on above: Order Comment: Speci men Type: BLOOD SPECIMENOrdering Facility: [facility] Address: [address] [place] [address] Performed By: #### 5 7021-8 ####[facility] HOSPITALNCLIA [id number] [place] [address] [place] Lymphocytes/100 WBC (Bld) 17.3 % Normal [facility] Comment on above: Order Comment: Speci men Type: BLOOD SPECIMENOrdering Facility: [facility] Address: [address] [place] [address] Performed By: #### 5 7021-8 ####[facility] DAVISTATY [id number] [address] [place] [facility] MCH (RBC) [Entitic mass] 31.5 pg Normal 26.0-34.0 [facility] Comment on above: Order Comment: Speci men Type: BLOOD SPECIMENOrdering Facility: [facility] Address: [address] [place] [address] Performed By: #### 5 7021-8 ####[facility] HOSPITALNCNENITA [id number] [place] [address] [place] MCHC (RBC) [Mass/Vol] 35.1 g/dL Normal 30.5-36.0 [facility] Comment on above: Order Comment: Speci men Type: BLOOD SPECIMENOrdering Facility: [facility] Address: [address] [place] [address] Performed By: #### 5 7021-8 ####[facility] HOSPITALNCA [id number] [address] [place] MCV (RBC) [Entitic vol] 89.8 fL Normal 80.0-100.0 [facility] Comment on above: Order Comment: Speci men Type: BLOOD SPECIMENOrdering Facility: [facility] Address: [address] [place], [place] [address] Performed By: #### 5 7021-8 ####[facility] HOSPITALNCLIA [id number] [place] [address] [place] Monocytes (Bld) [#/Vol] 0.59 10*3/uL Normal <0.87 [facility] Comment on above: Order Comment: Speci men Type: BLOOD SPECIMENOrdering Facility: [facility] Address: [address] [place] [address] Performed By: #### 5 7021-8 ####[facility] MILLWNCLIA [id number] [place] [address] [place] Monocytes/100 WBC (Bld) 9.5 % Normal [facility] Comment on above: Order Comment: Speci men Type: BLOOD SPECIMENOrdering Facility: [facility] Address: [address] [place] [address] Performed By: #### 5 7021-8 ####[facility] HOSPITALLIA [id number] [place] [address] [place] Neutrophils (Bld) [#/Vol] 4.48 10*3/uL Normal 1.45-7.50 [facility] Comment on above: Order Comment: Speci men Type: BLOOD SPECIMENOrdering Facility: [facility] Address: [address] [place] [address] Performed By: #### 5 7021-8 ####[facility] ERA [id number] [place] [address] [place] Neutrophils/100 WBC (Bld) 71.7 % Normal [facility] Comment on above: Order Comment: Speci men Type: BLOOD SPECIMENOrdering Facility: [facility] Address: [address] [place] [address] Performed By: #### 5 7021-8 ####[facility] HOSPITALLIA [id number] [place] [address] [place] Nucleated RBC (Bld) [#/Vol] 10*3/uL Normal <0.01 [facility] Comment on above: Order Comment: Speci men Type: BLOOD SPECIMENOrdering Facility: [facility] Address: [address] [place] [address] Performed By: #### 5 7021-8 ####[facility] HOSPITALLIA [id number] [place] [address] [place] Nucleated RBC/100 WBC (Bld) [Ratio] 0.0 /100 WBC Normal [facility] Comment on above: Order Comment: Speci men Type: BLOOD SPECIMENOrdering Facility: [facility] Address: [address] [place] [address] Performed By: #### 5 7021-8 ####[facility] HOSPITALNCA [id number] [place] [address] [place] Platelet mean volume (Bld) [Entitic vol] 10.2 fL Normal 9.0-12.7 [facility] Comment on above: Order Comment: Speci men Type: BLOOD SPECIMENOrdering Facility: [facility] Address: [address] [place] [address] Performed By: #### 5 7021-8 ####[facility] HOSPITALNCA [id number] [place] [address] [place] Platelets (Bld) [#/Vol] 152 10*3/uL Normal 150-400 [facility] Comment on above: Order Comment: Speci men Type: BLOOD SPECIMENOrdering Facility: [facility] Address: [address] [place] [address] Performed By: #### 5 7021-8 ####[facility] HOSPITALNCA [id number] [place] [address] [place] RBC (Bld) [#/Vol] 4.51 10*6/uL Normal 3.90-5.20 [facility] Comment on above: Order Comment: Speci men Type: BLOOD SPECIMENOrdering Facility: [facility] Address: [address] [place] [address] Performed By: #### 5 7021-8 ####[facility] HOSPITALNCLIA [id number] [place] [address] [place] WBC (Bld) [#/Vol] 6.24 10*3/uL Normal 3.70-11.00 [facility] Comment on above: Order Comment: Speci men Type: BLOOD SPECIMENOrdering Facility: [facility] Address: [address] [place] [address] Performed By: #### 5 7021-8 ####[facility] MILLTOWNCLIA [id number] [place] [address] [place] CNPNon 12-17-2023 CNPN Normal [facility] Comprehensive metabolic 2000 panelon 12-17-2023 Albumin [Mass/Vol] 4.2 g/dL Normal 3.9-4.9 [facility] Comment on above: Order Comment: Speci men Type: BLOOD SPECIMENOrdering Facility: [facility] Address: [address] [place] [address] Performed By: #### 2 4323-8, 03890-9 ####[facility] HOSPITALWNCLIA [id number] [place] [address] [place] ALP [Catalytic activity/Vol] 135 U/L High 34-123 [facility] Comment on above: Order Comment: Speci men Type: BLOOD SPECIMENOrdering Facility: [facility] Address: [address] [place] [address] Performed By: #### 2 4323-8, 46815-2 ####[facility] MILLTOWNCLIA [id number] [place] [address] [place] ALT [Catalytic activity/Vol] 39 U/L High 7-38 [facility] Comment on above: Order Comment: Speci men Type: BLOOD SPECIMENOrdering Facility: [facility] Address: [address] [place] [address] Performed By: #### 2 4323-8, ####[facility] MILLWNCLIA [id number] [place] [address] [place] Anion gap [Moles/Vol] 13 mmol/L Normal 8-15 [facility] Comment on above: Order Comment: Speci men Type: BLOOD SPECIMENOrdering Facility: [facility] Address: [address] [place] [address] Performed By: #### 2 4323-8, ####[facility] PLASENCIA [id number] [place] [address] [place] AST [Catalytic activity/Vol] 30 U/L Normal 13-35 [facility] Comment on above: Order Comment: Speci men Type: BLOOD SPECIMENOrdering Facility: [facility] Address: [address] [place] [address] Performed By: #### 2 4323-8, ####[facility] KARINCTHIAGOIzabella [id number] [place] [address] [place] Bilirubin [Mass/Vol] 0.5 mg/dL Normal 0.2-1.3 [facility] Comment on above: Order Comment: Speci men Type: BLOOD SPECIMENOrdering Facility: [facility] Address: [address] [place] [address] Performed By: #### 2 4323-8, ####[facility] DAVISFARMVILLEVIETA [id number] [place] [address] [place] Calcium [Mass/Vol] 10.4 mg/dL High 8.5-10.2 [facility] Comment on above: Order Comment: Speci men Type: BLOOD SPECIMENOrdering Facility: [facility] Address: [address] [place] [address] Performed By: #### 2 4323-8, ####[facility] HOSPITALNCLIA [id number] [place] [address] [place] Chloride [Moles/Vol] 98 mmol/L Normal 98-107 [facility] Comment on above: Order Comment: Speci men Type: BLOOD SPECIMENOrdering Facility: [facility] Address: [address] [place] [address] Performed By: #### 2 4323-8, ####[facility] HOSPITALNCLIA [id number] [place] [address] [place] [facility] CO2 [Moles/Vol] 28 mmol/L Normal 22-30 [facility] Comment on above: Order Comment: Speci men Type: BLOOD SPECIMENOrdering Facility: [facility] Address: [address] [place] [address] Performed By: #### 2 4323-8, ####[facility] HOSPITALNCLIA [id number] [address] [place] Creatinine [Mass/Vol] 1.38 mg/dL High 0.58-0.96 [facility] Comment on above: Order Comment: Speci men Type: BLOOD SPECIMENOrdering Facility: [facility] Address: [address] [place] [address] Performed By: #### 2 4323-8, ####[facility] HOSPITALNCLIA [id number] [address] Creatinine and Glomerular filtration rate.predicted panel (S/P/Bld) 43 mL/min/1.73m??? Low >=60 [facility] Comment on above: Order Comment: Speci men Type: BLOOD SPECIMENOrdering Facility: [facility] Address: [address] [place] [address] Result Comment: Ann mated Glomerular Filtration Rate (eGFR) is calculated using the 2020 CKD-EPI creatinine equation. This equation utilizes serum creatinine, sex, and age as parameters. The creatinine assay has traceable calibration to isotope dilution-mass spectrometry. Refer to KDIGO guidelines for clinical interpretation. In patients with unstable renal function, e.g. those with acute kidney injury, the eGFR may not accurately reflect actual GFR. Performed By: #### 2 4323-8, ####[facility] HOSPITALNCLI [id number] [place] [address] [place] Glucose [Mass/Vol] 86 mg/dL Normal 74-99 [facility] Comment on above: Order Comment: Speci men Type: BLOOD SPECIMENOrdering Facility: [facility] Address: [address] [place], [place] [address] Result Comment: The [place] [employer] (ADA) provides guidance for cutoff values for fasting glucose and random glucose. The ADA defines fasting as no caloric intake for at least 8 hours. Fasting plasma glucose results between 100 to 125 mg/dL indicate increased risk for diabetes (prediabetes).Fasting plasma glucose results greater than or equal to 126 mg/dL meet the criteria for diagnosis of diabetes. In the absence of unequivocal hyperglycemia, results should be confirmed by repeat testing. In a patient with classic symptoms of hyperglycemia or hyperglycemic crisis, random plasma glucose results greater than or equal to 200 mg/dL meet the criteria for diagnosis of diabetes.Reference: Standards of Medical Care in Diabetes 2016, [place] [employer]. Diabetes Care. 2016.39(Suppl 1). Performed By: #### 2 4323-8, 21816-8 ####[facility] MILLTOWNCLIA [id number] [place] [address] [place] Potassium [Moles/Vol] 3.6 mmol/L Low 3.7-5.1 [facility] Comment on above: Order Comment: Kushali men Type: BLOOD SPECIMENOrdering Facility: [facility] Address: [address] [place] [address] Performed By: #### 2 4323-8, ####[facility] MILLTOWNCLIA [id number] [place] [id number] [place] Protein [Mass/Vol] 7.8 g/dL Normal 6.3-8.0 [facility] Comment on above: Order Comment: Kushali men Type: BLOOD SPECIMENOrdering Facility: [facility] Address: [address] [place], [place] [address] Performed By: #### 2 4323-8, ####[facility] [id number] [place] [address] [place] Sodium [Moles/Vol] 139 mmol/L Normal 136-144 [facility] Comment on above: Order Comment: Speci men Type: BLOOD SPECIMENOrdering Facility: [facility] Address: [address] [place] [address] Performed By: #### 2 4323-8, 35560-2 ####[facility] ERIzabella [id number] [place] [address] [place] Urea nitrogen [Mass/Vol] 26 mg/dL High 7-21 [facility] Comment on above: Order Comment: Speci men Type: BLOOD SPECIMENOrdering Facility: [facility] Address: [address] [place] [address] Performed By: #### 2 4323-8, 61672-8 ####[facility] HOSPITALNCIzabella [id number] [place] [address] [place] Magnesium SerPl-mCncon 12-16 Magnesium [Mass/Vol] 1.6 mg/dL Low 1.7-2.3 [facility] Comment on above: Order Comment: Speci men Type: BLOOD SPECIMENOrdering Facility: [facility] Address: [address] [place] [address] Performed By: #### 2 4323-8, 15797-8 ####[facility] DAVISESSENTIA HEALTHA [id number] [place] [address] [place] CNPNon 12-11-2023 CNPN Normal [facility] CBC W Auto Differential pane l (Bld)on 12-10-2023 Basophils (Bld) [#/Vol] 0.05 10*3/uL [facility] Basophils/100 WBC (Bld) 0.7 % [facility] Differential cell count method Nom (Bld) Auto [facility] Eosinophils (Bld) [#/Vol] 0.13 10*3/uL [facility] Eosinophils/100 WBC (Bld) 1.8 % [facility] Erythrocyte distribution width (RBC) [Ratio] 12.2 % 11.5 - 15.0 % [facility] Hematocrit (Bld) [Volume fraction] 38.9 % 36.0 - 46.0 % [facility] Hemoglobin (Bld) [Mass/Vol] 13.2 g/dL 11.5 - 15.5 g/dL [facility] Immature granulocytes (Bld) [#/Vol] [facility] Immature granulocytes/100 WBC (Bld) 0.3 % [facility] Lymphocytes (Bld) [#/Vol] 1.53 10*3/uL [facility] Lymphocytes/100 WBC (Bld) 20.7 % [facility] MCH (RBC) [Entitic mass] 31.2 pg 26.0 - 34.0 pg [facility] MCHC (RBC) [Mass/Vol] 33.9 g/dL 30.5 - 36.0 g/dL [facility] MCV (RBC) [Entitic vol] 92.0 fL 80.0 - 100.0 fL [facility] Monocytes (Bld) [#/Vol] 0.57 10*3/uL [facility] Monocytes/100 WBC (Bld) 7.7 % [facility] Neutrophils (Bld) [#/Vol] 5.08 10*3/uL [facility] Neutrophils/100 WBC (Bld) 68.8 % [facility] Nucleated RBC (Bld) [#/Vol] [facility] Nucleated RBC/100 WBC (Bld) [Ratio] 0.0 % /100 WBC [facility] Platelet mean volume (Bld) [Entitic vol] 9.6 fL 9.0 - 12.7 fL [facility] Platelets (Bld) [#/Vol] 208 10*3/uL [facility] RBC (Bld) [#/Vol] 4.23 10*6/uL 3.90 - 5.2 0 m/uL [facility] WBC (Bld) [#/Vol] 7.38 10*3/uL [facility] Basophils (Bld) [#/Vol] 0.05 10*3/uL Normal <0.11 [facility] Comment on above: Order Comment: Speci men Type: BLOOD SPECIMENOrdering Facility: [facility] Address: [address] [place] [address] Performed By: #### 5 7021-8 ####[facility] DAVISWNCLIA [id number] [place] [address] [place] Basophils/100 WBC (Bld) 0.7 % Normal [facility] Comment on above: Order Comment: Speci men Type: BLOOD SPECIMENOrdering Facility: [facility] Address: [address] [place] [address] Performed By: #### 5 7021-8 ####[facility] HOSPITALLIA [id number] [place] [address] [place] Differential cell count method Nom (Bld) Auto Normal [facility] Comment on above: Order Comment: Speci men Type: BLOOD SPECIMENOrdering Facility: [facility] Address: [address] [place] [address] Performed By: #### 5 7021-8 ####[facility] HOSPITALLIA [id number] [place] [address] [place] Eosinophils (Bld) [#/Vol] 0.13 10*3/uL Normal <0.46 [facility] Comment on above: Order Comment: Speci men Type: BLOOD SPECIMENOrdering Facility: [facility] Address: [address] [place] [address] Performed By: #### 5 7021-8 ####[facility] HOSPITALWNCLIA [id number] [place] [address] [place] Eosinophils/100 WBC (Bld) 1.8 % Normal [facility] Comment on above: Order Comment: Speci men Type: BLOOD SPECIMENOrdering Facility: [facility] Address: [address] [place] [address] Performed By: #### 5 7021-8 ####[facility] HOSPITALLIA [id number] [place] [address] [place] Erythrocyte distribution width (RBC) [Ratio] 12.2 % Normal 11.5-15.0 [facility] Comment on above: Order Comment: Speci men Type: BLOOD SPECIMENOrdering Facility: [facility] Address: [address] [place] [address] Performed By: #### 5 7021-8 ####[facility] HOSPITALVIETA [id number] [place] [address] [place] Hematocrit (Bld) [Volume fraction] 38.9 % Normal 36.0-46.0 [facility] Comment on above: Order Comment: Speci men Type: BLOOD SPECIMENOrdering Facility: [facility] Address: [address] [place] [address] Performed By: #### 5 7021-8 ####[facility] PETERS[facility] HOSPITALLALIIzabella [id number] [place] [address] [place] Hemoglobin (Bld) [Mass/Vol] 13.2 g/dL Normal 11.5-15.5 [facility] Comment on above: Order Comment: Speci men Type: BLOOD SPECIMENOrdering Facility: [facility] Address: [address] [place] [address] Performed By: #### 5 7021-8 ####[facility] PETERS[facility] HOSPITALLALILIA [id number] [place] [address] [place] Immature granulocytes (Bld) [#/Vol] 10*3/uL Normal <0.10 [facility] Comment on above: Order Comment: Speci men Type: BLOOD SPECIMENOrdering Facility: [facility] Address: [address] [place] [address] Performed By: #### 5 7021-8 ####[facility] HOSPITALNCLIA [id number] [place] [address] [place] Immature granulocytes/100 WBC (Bld) 0.3 % Normal [facility] Comment on above: Order Comment: Speci men Type: BLOOD SPECIMENOrdering Facility: [facility] Address: [address] [place] [address] Performed By: #### 5 7021-8 ####[facility] KARINCNENITA [id number] [place] [address] [place] Lymphocytes (Bld) [#/Vol] 1.53 10*3/uL Normal 1.00-4.00 [facility] Comment on above: Order Comment: Speci men Type: BLOOD SPECIMENOrdering Facility: [facility] Address: [address] [place] [address] Performed By: #### 5 7021-8 ####[facility] HOSPITALTARIQ [id number] [place] [address] [place] Lymphocytes/100 WBC (Bld) 20.7 % Normal [facility] Comment on above: Order Comment: Speci men Type: BLOOD SPECIMENOrdering Facility: [facility] Address: [address] [place] [address] Performed By: #### 5 7021-8 ####[facility] HOSPITALTARIQ [id number] [place] [address] [place] MCH (RBC) [Entitic mass] 31.2 pg Normal 26.0-34.0 [facility] Comment on above: Order Comment: Speci men Type: BLOOD SPECIMENOrdering Facility: [facility] Address: [address] [place] [address] Performed By: #### 5 7021-8 ####[facility] HOSPITALNCLIA [id number] [place] [address] [place] MCHC (RBC) [Mass/Vol] 33.9 g/dL Normal 30.5-36.0 [facility] Comment on above: Order Comment: Speci men Type: BLOOD SPECIMENOrdering Facility: [facility] Address: [address] [place] [address] Performed By: #### 5 7021-8 ####[facility] DAVISFARMVILLELALILIA [id number] [place] [address] [place] MCV (RBC) [Entitic vol] 92.0 fL Normal 80.0-100.0 [facility] Comment on above: Order Comment: Speci men Type: BLOOD SPECIMENOrdering Facility: [facility] Address: [address] [place] [address] Performed By: #### 5 7021-8 ####[facility] HOSPITALLIA [id number] [place] [address] [place] Monocytes (Bld) [#/Vol] 0.57 10*3/uL Normal <0.87 [facility] Comment on above: Order Comment: Speci men Type: BLOOD SPECIMENOrdering Facility: [facility] Address: [address] [place] [address] Performed By: #### 5 7021-8 ####[facility] ERA [id number] [place] [address] [place] Monocytes/100 WBC (Bld) 7.7 % Normal [facility] Comment on above: Order Comment: Speci men Type: BLOOD SPECIMENOrdering Facility: [facility] Address: [address] [place] [address] Performed By: #### 5 7021-8 ####[facility] HOSPITALLIA [id number] [place] [address] [place] Neutrophils (Bld) [#/Vol] 5.08 10*3/uL Normal 1.45-7.50 [facility] Comment on above: Order Comment: Speci men Type: BLOOD SPECIMENOrdering Facility: [facility] Address: [address] [place] [address] Performed By: #### 5 7021-8 ####[facility] HOSPITALLIA [id number] [place] [address] [place] Neutrophils/100 WBC (Bld) 68.8 % Normal [facility] Comment on above: Order Comment: Speci men Type: BLOOD SPECIMENOrdering Facility: [facility] Address: [address] [place] [address] Performed By: #### 5 7021-8 ####[facility] HOSPITALNCA [id number] [place] [address] [place] Nucleated RBC (Bld) [#/Vol] 10*3/uL Normal <0.01 [facility] Comment on above: Order Comment: Speci men Type: BLOOD SPECIMENOrdering Facility: [facility] Address: [address] [place] [address] Performed By: #### 5 7021-8 ####[facility] HOSPITALNCUNIVERSITY [facility] [id number] [place] [address] [place] Nucleated RBC/100 WBC (Bld) [Ratio] 0.0 /100 WBC Normal [facility] Comment on above: Order Comment: Speci men Type: BLOOD SPECIMENOrdering Facility: [facility] Address: [address] [place] [address] Performed By: #### 5 7021-8 ####[facility] HOSPITALNCLIA [id number] [place] [address] [place] Platelet mean volume (Bld) [Entitic vol] 9.6 fL Normal 9.0-12.7 [facility] Comment on above: Order Comment: Speci men Type: BLOOD SPECIMENOrdering Facility: [facility] Address: [address] [place] [address] Performed By: #### 5 7021-8 ####[facility] HOSPITALNCLIA [id number] [place] [address] [place] Platelets (Bld) [#/Vol] 208 10*3/uL Normal 150-400 [facility] Comment on above: Order Comment: Speci men Type: BLOOD SPECIMENOrdering Facility: [facility] Address: [address] [place] [address] Performed By: #### 5 7021-8 ####[facility] CANNONWNCLIA [id number] [place] [address] [place] RBC (Bld) [#/Vol] 4.23 10*6/uL Normal 3.90-5.20 [facility] Comment on above: Order Comment: Speci men Type: BLOOD SPECIMENOrdering Facility: [facility] Address: [address] [place] [address] Performed By: #### 5 7021-8 ####[facility] HOSPITALNCLIA [id number] [place] [address] [place] WBC (Bld) [#/Vol] 7.38 10*3/uL Normal 3.70-11.00 [facility] Comment on above: Order Comment: Speci men Type: BLOOD SPECIMENOrdering Facility: [facility] Address: [address] [place] [address] Performed By: #### 5 7021-8 ####[facility] WESLEYNORTH COUNTRY HOSPITALNCLIA [id number] [place] [address] [place] Comprehensive metabolic 2000 panelOrdered By: Elizabeth Felix on 12-10-2023 Albumin [Mass/Vol] 3.8 g/dL Low 3.9 - 4.9 g/dL [facility] ALP [Catalytic activity/Vol] 150 U/L High 34 - 123 U/L [facility] ALT [Catalytic activity/Vol] 42 U/L High 7 - 38 U/L [facility] Anion gap [Moles/Vol] 13 mmol/L 8 - 15 mmol/L [facility] AST [Catalytic activity/Vol] 35 U/L 13 - 35 U/L [facility] Bilirubin [Mass/Vol] 0.2 mg/dL 0.2 - 1 .3 mg/dL [facility] Calcium [Mass/Vol] 9.2 mg/dL 8.5 - 10. 2 mg/dL [facility] Chloride [Moles/Vol] 102 mmol/L 98 - 10 7 mmol/L [facility] CO2 [Moles/Vol] 24 mmol/L 22 - 30 mmol/L [facility] Creatinine [Mass/Vol] 0.58 mg/dL 0.58 - 0.96 mg/dL [facility] GFR/1.73 sq M.predicted among non-blacks MDRD (S/P/Bld) [Vol rate/Area] 102 mL/min/{1.73_m2} - PINF [facility] Comment on above: Estimated Glomerular Filtration Rate (eGFR) is calculated using the 2020 CKD-EPI creatinine equation. This equation utilizes serum creatinine, sex, and age as parameters. The creatinine assay has traceable calibration to isotope dilution-mass spectrometry. Refer to KDIGO guidelines for clinical interpretation. In patients with unstable renal function, e.g. those with acute kidney injury, the eGFR may not accurately reflect actual GFR. Glucose [Mass/Vol] 120 mg/dL High 74 - 99 mg/dL [facility] Comment on above: The [place] Di[employer] s Association (ADA) provides guidance for cutoff values for fasting glucose and random glucose. The ADA defines fasting as no caloric intake for at least 8 hours. Fasting plasma glucose results between 100 to 125 mg/dL indicate increased risk for diabetes (prediabetes). Fasting plasma glucose results greater than or equal to 126 mg/dL meet the criteria for diagnosis of diabetes. In the absence of unequivocal hyperglycemia, results should be confirmed by repeat testing. In a patient with classic symptoms of hyperglycemia or hyperglycemic crisis, random plasma glucose results greater than or equal to 200 mg/dL meet the criteria for diagnosis of diabetes. Reference: Standards of Medical Care in Diabetes 2016, [place] [employer]. Diabetes Care. 2016.39(Suppl 1). Interpretation and review of laboratory results Abnormal [facility] Potassium [Moles/Vol] 3.8 mmol/L 3.7 - 5.1 mmol/L [facility] Protein [Mass/Vol] 6.9 g/dL 6.3 - 8.0 g/dL [facility] Sodium [Moles/Vol] 139 mmol/L 136 - 144 mmol/L [facility] Urea nitrogen [Mass/Vol] 12 mg/dL 7 - 21 mg/dL [facility] Comprehensive metabolic 2000 panelon 12-10-2023 Albumin [Mass/Vol] 3.8 g/dL Low 3.9-4.9 [facility] Comment on above: Order Comment: Speci men Type: BLOOD SPECIMENOrdering Facility: [facility] Address: [address] [place] [address] Performed By: #### 2 4323-8 ####[facility] ERA [id number] [place] [address] [place] ALP [Catalytic activity/Vol] 150 U/L High 34-123 [facility] Comment on above: Order Comment: Speci men Type: BLOOD SPECIMENOrdering Facility: [facility] Address: [address] [place] [address] Performed By: #### 2 4323-8 ####[facility] [id number] [place] [address] [place] ALT [Catalytic activity/Vol] 42 U/L High 7-38 [facility] Comment on above: Order Comment: Speci men Type: BLOOD SPECIMENOrdering Facility: [facility] Address: [address] [place] [address] Performed By: #### 2 4323-8 ####[facility] [id number] [place] [address] [place] Anion gap [Moles/Vol] 13 mmol/L Normal 8-15 [facility] Comment on above: Order Comment: Speci men Type: BLOOD SPECIMENOrdering Facility: [facility] Address: [address] [place] [address] Performed By: #### 2 4323-8 ####[facility] [id number] [place] [address] [place] AST [Catalytic activity/Vol] 35 U/L Normal 13-35 [facility] Comment on above: Order Comment: Speci men Type: BLOOD SPECIMENOrdering Facility: [facility] Address: [address] [place] [address] Performed By: #### 2 4323-8 ####[facility] MILLTOWNCLIA [id number] [place] [address] [place] Bilirubin [Mass/Vol] 0.2 mg/dL Normal 0.2-1.3 [facility] Comment on above: Order Comment: Speci men Type: BLOOD SPECIMENOrdering Facility: [facility] Address: [address] [place] [address] Performed By: #### 2 4323-8 ####[facility] MILLTOWNCLIA [id number] [place] [address] [place] Calcium [Mass/Vol] 9.2 mg/dL Normal 8.5-10.2 [facility] Comment on above: Order Comment: Speci men Type: BLOOD SPECIMENOrdering Facility: [facility] Address: [address] [place] [address] Performed By: #### 2 4323-8 ####[facility] HOSPITALWNCLIA [id number] [place] [address] [place] Chloride [Moles/Vol] 102 mmol/L Normal 98-107 [facility] Comment on above: Order Comment: Speci men Type: BLOOD SPECIMENOrdering Facility: [facility] Address: [address] [place] [address] Performed By: #### 2 4323-8 ####[facility] MILLTOWNCLIA [id number] [place] [address] [place] CO2 [Moles/Vol] 24 mmol/L Normal 22-30 [facility] Comment on above: Order Comment: Speci men Type: BLOOD SPECIMENOrdering Facility: [facility] Address: [address] [place], [place] [address] Performed By: #### 2 4323-8 ####[facility] MILLWNCLIA [id number] [place] [id number] [place] Creatinine [Mass/Vol] 0.58 mg/dL Normal 0.58-0.96 [facility] Comment on above: Order Comment: Medina sales Type: BLOOD SPECIMENOrdering Facility: [facility] Address: [address] [place] [address] Performed By: #### 2 4323-8 ####[facility] [id number] [place] [address] [place] Creatinine and Glomerular filtration rate.predicted panel (S/P/Bld) 102 mL/min/1.73m??? Normal >=60 [facility] Comment on above: Order Comment: Med[place] sales Type: BLOOD SPECIMENOrdering Facility: [facility] Address: [address] [place] [address] Result Comment: Ann mated Glomerular Filtration Rate (eGFR) is calculated using the 2020 CKD-EPI creatinine equation. This equation utilizes serum creatinine, sex, and age as parameters. The creatinine assay has traceable calibration to isotope dilution-mass spectrometry. Refer to KDIGO guidelines for clinical interpretation. In patients with unstable renal function, e.g. those with acute kidney injury, the eGFR may not accurately reflect actual GFR. Performed By: #### 2 4323-8 ####[facility] [id number] [place] [address] [place] Glucose [Mass/Vol] 120 mg/dL High 74-99 [facility] Comment on above: Order Comment: Med[place] sales Type: BLOOD SPECIMENOrdering Facility: [facility] Address: [address] [place] [address] Result Comment: The [place] Diabetes Association (ADA) provides guidance for cutoff values for fasting glucose and random glucose. The ADA defines fasting as no caloric intake for at least 8 hours. Fasting plasma glucose results between 100 to 125 mg/dL indicate increased risk for diabetes (prediabetes).Fasting plasma glucose results greater than or equal to 126 mg/dL meet the criteria for diagnosis of diabetes. In the absence of unequivocal hyperglycemia, results should be confirmed by repeat testing. In a patient with classic symptoms of hyperglycemia or hyperglycemic crisis, random plasma glucose results greater than or equal to 200 mg/dL meet the criteria for diagnosis of diabetes.Reference: Standards of Medical Care in Diabetes 2016, [place] [employer]. Diabetes Care. 2016.39(Suppl 1). Performed By: #### 2 4323-8 ####[facility] [id number] [place] [address] [place] Potassium [Moles/Vol] 3.8 mmol/L Normal 3.7-5.1 [facility] Comment on above: Order Comment: Speci men Type: BLOOD SPECIMENOrdering Facility: [facility] Address: [address] [place] [address] Performed By: #### 2 4323-8 ####[facility] [id number] [place] [address] [place] Protein [Mass/Vol] 6.9 g/dL Normal 6.3-8.0 [facility] Comment on above: Order Comment: Speci men Type: BLOOD SPECIMENOrdering Facility: [facility] Address: [address] [place], [place] [address] Performed By: #### 2 4323-8 ####[facility] [id number] [place] [address] [place] Sodium [Moles/Vol] 139 mmol/L Normal 136-144 [facility] Comment on above: Order Comment: Speci men Type: BLOOD SPECIMENOrdering Facility: [facility] Address: [address] [place] [address] Performed By: #### 2 4323-8 ####[facility] [id number] [place] [address] [place] Urea nitrogen [Mass/Vol] 12 mg/dL Normal 7-21 [facility] Comment on above: Order Comment: Speci men Type: BLOOD SPECIMENOrdering Facility: [facility] Address: [address] [place] [address] Performed By: #### 2 4323-8 ####[facility] [id number] [place] [id number] [place] CNPNon 12-09-2023 CNPN Normal [facility] CBC W Auto Differential pane l (Bld)on 12-07-2023 Basophils (Bld) [#/Vol] 0.03 10*3/uL [facility] Basophils/100 WBC (Bld) 0.5 % [facility] Differential cell count method Nom (Bld) Auto [facility] Eosinophils (Bld) [#/Vol] 0.17 10*3/uL [facility] Eosinophils/100 WBC (Bld) 2.7 % [facility] Erythrocyte distribution width (RBC) [Ratio] 12.2 % 11.5 - 15.0 % [facility] Hematocrit (Bld) [Volume fraction] 40.4 % 36.0 - 46.0 % [facility] Hemoglobin (Bld) [Mass/Vol] 13.6 g/dL 11.5 - 15.5 g/dL [facility] Immature granulocytes (Bld) [#/Vol] [facility] Immature granulocytes/100 WBC (Bld) 0.3 % [facility] Lymphocytes (Bld) [#/Vol] 1.40 10*3/uL [facility] Lymphocytes/100 WBC (Bld) 22.4 % [facility] MCH (RBC) [Entitic mass] 31.0 pg 26.0 - 34.0 pg [facility] MCHC (RBC) [Mass/Vol] 33.7 g/dL 30.5 - 36.0 g/dL [facility] MCV (RBC) [Entitic vol] 92.0 fL 80.0 - 100.0 fL [facility] Monocytes (Bld) [#/Vol] 0.53 10*3/uL [facility] Monocytes/100 WBC (Bld) 8.5 % [facility] Neutrophils (Bld) [#/Vol] 4.09 10*3/uL [facility] Neutrophils/100 WBC (Bld) 65.6 % [facility] Nucleated RBC (Bld) [#/Vol] [facility] Nucleated RBC/100 WBC (Bld) [Ratio] 0.0 % /100 WBC [facility] Platelet mean volume (Bld) [Entitic vol] 9.8 fL 9.0 - 12.7 fL [facility] Platelets (Bld) [#/Vol] 222 10*3/uL [facility] RBC (Bld) [#/Vol] 4.39 10*6/uL 3.90 - 5.2 0 m/uL [facility] WBC (Bld) [#/Vol] 6.24 10*3/uL [facility] Basophils (Bld) [#/Vol] 0.03 10*3/uL Normal <0.11 [facility] Comment on above: Order Comment: Speci men Type: BLOOD SPECIMENOrdering Facility: [facility] Address: [address] [place] [address] Performed By: #### 5 7021-8 ####[facility] [id number] [place] [address] [place] Basophils/100 WBC (Bld) 0.5 % Normal [facility] Comment on above: Order Comment: Speci men Type: BLOOD SPECIMENOrdering Facility: [facility] Address: [address] [place] [address] Performed By: #### 5 7021-8 ####[facility] [id number] [place] [address] [place] Differential cell count method Nom (Bld) Auto Normal [facility] Comment on above: Order Comment: Speci men Type: BLOOD SPECIMENOrdering Facility: [facility] Address: [address] [place] [address] Performed By: #### 5 7021-8 ####[facility] [id number] [place] [address] [place] Eosinophils (Bld) [#/Vol] 0.17 10*3/uL Normal <0.46 [facility] Comment on above: Order Comment: Speci men Type: BLOOD SPECIMENOrdering Facility: [facility] Address: [address] [place] [address] Performed By: #### 5 7021-8 ####[facility] RANJITHWNCLIA [id number] [place] [address] [place] Eosinophils/100 WBC (Bld) 2.7 % Normal [facility] Comment on above: Order Comment: Speci men Type: BLOOD SPECIMENOrdering Facility: [facility] Address: [address] [place] [address] Performed By: #### 5 7021-8 ####[facility]ITALNCL[facility] [id number] [place] [address] [place] Erythrocyte distribution width (RBC) [Ratio] 12.2 % Normal 11.5-15.0 [facility] Comment on above: Order Comment: Speci men Type: BLOOD SPECIMENOrdering Facility: [facility] Address: [address] [place] [address] Performed By: #### 5 7021-8 ####[facility]ITALNCLIA [id number] [place] [address] [place] Hematocrit (Bld) [Volume fraction] 40.4 % Normal 36.0-46.0 [facility] Comment on above: Order Comment: Speci men Type: BLOOD SPECIMENOrdering Facility: [facility] Address: [address] [place] [address] Performed By: #### 5 7021-8 ####[facility]ITALNCLIA [id number] [place] [address] [place] Hemoglobin (Bld) [Mass/Vol] 13.6 g/dL Normal 11.5-15.5 [facility] Comment on above: Order Comment: Speci men Type: BLOOD SPECIMENOrdering Facility: [facility] Address: [address] [place] [address] Performed By: #### 5 7021-8 ####[facility]ITALNCLIA [id number] [place] [address] [place] Immature granulocytes (Bld) [#/Vol] 10*3/uL Normal <0.10 [facility] Comment on above: Order Comment: Speci men Type: BLOOD SPECIMENOrdering Facility: [facility] Address: [address] [place] [address] Performed By: #### 5 7021-8 ####[facility] MILLWNCLIA [id number] [place] [address] [place] Immature granulocytes/100 WBC (Bld) 0.3 % Normal [facility] Comment on above: Order Comment: Speci men Type: BLOOD SPECIMENOrdering Facility: [facility] Address: [address] [place] [address] Performed By: #### 5 7021-8 ####[facility]ITALNCLIA [id number] [place] [address] [place] Lymphocytes (Bld) [#/Vol] 1.40 10*3/uL Normal 1.00-4.00 [facility] Comment on above: Order Comment: Speci men Type: BLOOD SPECIMENOrdering Facility: [facility] Address: [address] [place] [address] Performed By: #### 5 7021-8 ####[facility]ITALLIA [id number] [place] [address] [place] Lymphocytes/100 WBC (Bld) 22.4 % Normal [facility] Comment on above: Order Comment: Speci men Type: BLOOD SPECIMENOrdering Facility: [facility] Address: [address] [place] [address] Performed By: #### 5 7021-8 ####[facility]OS[facility]ITALNCLIA [id number] [place] [address] [place] MCH (RBC) [Entitic mass] 31.0 pg Normal 26.0-34.0 [facility] Comment on above: Order Comment: Speci men Type: BLOOD SPECIMENOrdering Facility: [facility] Address: [address] [place] [address] Performed By: #### 5 7021-8 ####[facility] DAVISJordanNCNENITA [id number] [place] [address] [place] MCHC (RBC) [Mass/Vol] 33.7 g/dL Normal 30.5-36.0 [facility] Comment on above: Order Comment: Speci men Type: BLOOD SPECIMENOrdering Facility: [facility] Address: [address] [place] [address] Performed By: #### 5 7021-8 ####[facility] HOSPITALNCNENITA [id number] [place] [address] [place] MCV (RBC) [Entitic vol] 92.0 fL Normal 80.0-100.0 [facility] Comment on above: Order Comment: Speci men Type: BLOOD SPECIMENOrdering Facility: [facility] Address: [address] [place] [address] Performed By: #### 5 7021-8 ####[facility]ITALNCLIA [id number] [place] [address] [place] Monocytes (Bld) [#/Vol] 0.53 10*3/uL Normal <0.87 [facility] Comment on above: Order Comment: Speci men Type: BLOOD SPECIMENOrdering Facility: [facility] Address: [address] [place] [address] Performed By: #### 5 7021-8 ####[facility]ITALNCLIA [id number] [address] [place] Monocytes/100 WBC (Bld) 8.5 % Normal [facility] Comment on above: Order Comment: Speci men Type: BLOOD SPECIMENOrdering Facility: [facility] Address: [address] [place] [address] Performed By: #### 5 7021-8 ####[facility] MILLWNCLIA [id number] [place] [address] [place] Neutrophils (Bld) [#/Vol] 4.09 10*3/uL Normal 1.45-7.50 [facility] Comment on above: Order Comment: Speci men Type: BLOOD SPECIMENOrdering Facility: [facility] Address: [address] [place] [address] Performed By: #### 5 7021-8 ####[facility]ITALLIA [id number] [place] [address] [place] Neutrophils/100 WBC (Bld) 65.6 % Normal [facility] Comment on above: Order Comment: Speci men Type: BLOOD SPECIMENOrdering Facility: [facility] Address: [address] [place] [address] Performed By: #### 5 7021-8 ####[facility]ITALLIA [id number] [place] [address] [place] Nucleated RBC (Bld) [#/Vol] 10*3/uL Normal <0.01 [facility] Comment on above: Order Comment: Speci men Type: BLOOD SPECIMENOrdering Facility: [facility] Address: [address] [place] [address] Performed By: #### 5 7021-8 ####[facility]ITALNCLIA [id number] [place] [address] [place] Nucleated RBC/100 WBC (Bld) [Ratio] 0.0 /100 WBC Normal [facility] Comment on above: Order Comment: Speci men Type: BLOOD SPECIMENOrdering Facility: [facility] Address: [address] [place] [address] Performed By: #### 5 7021-8 ####[facility]ITALNCLIA [id number] [place] [address] [place] Platelet mean volume (Bld) [Entitic vol] 9.8 fL Normal 9.0-12.7 [facility] Comment on above: Order Comment: Speci men Type: BLOOD SPECIMENOrdering Facility: [facility] Address: [address] [place] [address] Performed By: #### 5 7021-8 ####[facility] DAVISFARMVILLETARIQ [id number] [place] [address] [place] Platelets (Bld) [#/Vol] 222 10*3/uL Normal 150-400 [facility] Comment on above: Order Comment: Speci men Type: BLOOD SPECIMENOrdering Facility: [facility] Address: [address] [place] [address] Performed By: #### 5 7021-8 ####[facility] HOSPITALNCNENITA [id number] [place] [address] [place] RBC (Bld) [#/Vol] 4.39 10*6/uL Normal 3.90-5.20 [facility] Comment on above: Order Comment: Speci men Type: BLOOD SPECIMENOrdering Facility: [facility] Address: [address] [place] [address] Performed By: #### 5 7021-8 ####[facility]ITALNCLIA [id number] [place] [address] [place] WBC (Bld) [#/Vol] 6.24 10*3/uL Normal 3.70-11.00 [facility] Comment on above: Order Comment: Speci men Type: BLOOD SPECIMENOrdering Facility: [facility] Address: [address] [place] [address] Performed By: #### 5 7021-8 ####[facility] HOSPITALNCLIA [id number] [place] [address] [place] CNOVSPon 12-07-2023 CNOVSP Normal [facility] CNPNon 12-03-2023 CNPN Normal [facility] CNPNon 11-30-2023 CNPN Normal [facility] NM CARDIAC PERF STRESS/EXERC ISEon 11-29-2023 NM CARDIAC PERF STRESS/EXERCISE Normal [facility] Heart Perfusion W multipl e states of exerciseon 11-29-2023 * * *Final Report* * * DATE OF EXAM: Nov 29 2023 10:23AM [facility] 0004 - [place] CARDIAC PERF STRESS/EXERCISE / PROCEDURE REASON: multiple diagnoses * * * * Physician Interpretation * * * * Stress Technology Applications Consultant Report: [facility] CHARU-2 Date of service: 11/29/2023 9:06:42 AM Supervising physician: Alcides Harmon MD PATIENT: Name: MS. VICKEY SCHWARTZ Age: 63 years Gender: F The supervising physician was in the department and immediately available. * * * Final * * * PATIENT: Name: MS. VICKEY SCHWARTZ Age: 63 years Gender: F CONCLUSIONS: 1. SPECT Perfusion Study: Normal. 2. There is no scintigraphic evidence for inducible ischemia. 3. No evidence of scarred myocardium. 4. Left ventricle is normal in size. The left ventricle systolic function is normal. 5. The right ventricle systolic function is normal. 6. This is a low risk scan. Gated Stress FBP Gated Rest FBP LVEF % 76 72 Prior Study Comparison No prior nuclear cardiology exam available for comparison. Nuclear Med Report:1-Day Gated SPECT Myocardial Perfusion with Exercise Stress: Myocardial perfusion imaging was performed at rest 30 to 60 minutes following the IV injection of the radiotracer. One minute prior to peak exercise, the patient was injected IV with the radiotracer. Gated post stress tomographic imaging was performed 10 to 20 minutes later. See administered radiotracer and doses below. [facility] Date of service: 11/29/2023 9:06:42 AM Ordering Physician: JANETT FELICIANO. Requesting Physician: JANETT FELICIANO Indication: Preop eval for noncard surg with intermediate risk and poor exercise tolerance Fellow: Christopher Cm MD Interpreting physician: Alcides Harmon MD Height: 162.56 cm BSA: 1.99 m Weight: 88.00 kg BMI: 33.3 kg/m Imaging Protocol Limitation Reason G.I. uptake and Diaphragmatic attenuation. CT Dose-Length Product(DLP): 19.0 mGy * cm. CT Dose Reduction Employed: Yes. Exam Type: Rest Stress Radiopharm: Tc-99m Tetrofosmin Tc-99m Tetrofosmin Dosage(mCi): 13.1 32.1 Atten Correction: not performed performed Stress Agent: Treadmill Resting Blood Press: 116/78 mmHg Image Quality The overall study imaging quality was deemed to be fair. The following technical issues were noted: G.I. uptake and Diaphragmatic attenuation. FINDINGS: Stress IR:3D Gated Stress FBP Gated Rest FBP LVEF: 76 % 72 % ED Volume: 66 ml 72 ml ES Volume: 10 ml 13 ml TID: 0.86 Perfusion Findings Stress IR:3D - Summed Score=0 All segments demonstrate normal perfusion. Rest IR:3D - Summed Score=0 All segments demonstrate normal perfusion. Stress IR:3D Rest IR:3D Summed Score=0 Summed Score=0 LEFT VENTRICLE The left ventricle is normal in size. Left ventricular systolic function is normal. Right Ventricle Right ventricle systolic function is normal. Stress Test Findings: There is no scintigraphic evidence for inducible ischemia. There is no evidence of scarring. * * * Final * * * NC CTA Report: [facility] Date of service: 11/29/2023 9:06:42 AM CTAC interpreting physician: Alcides Harmon MD PATIENT: Name: MS. VICKEY SCHWARTZ Age: 63 years Gender: F 1. Incidental Findings from limited non-diagnostic CTAC: Visualization of known right lower lobe soft tissue mass, preivous described on 10/23/23 maximum dimension 1.7 cm * * * Final * * * Stress ECG Report: [facility] Date of service: 11/29/2023 9:06:42 AM Ordering physician: JANETT FELICIANO building performance specialist: Renu Marr Naphthalene Still Operator: Raisa Jane Fellow: Christopher Cm MD Interpreting physician: Alcides Harmon MD Patient name: MS. VICKEY SCHWARTZ Age: 63 years Gender: F Height: 162.56 cm BSA: 1.99 m Weight: 88.00 kg BMI: 33.3 kg/m Indication: Encounter for pre-procedural cardiovascular examination for non-cardiac surgery Stress ECG Conclusion: Conclusion: Normal Stress ECG Summary: The patient's resting heart rate was 60 bpm and blood pressure was 116/78 mmHg. The patient exercised according to the Babar 5% protocol. The estimated end-exer (more content not included)... DIVISION OF RADIOLOGY Provider, [facility] - 11/29/2023 * * *Final Report* * * DATE OF EXAM: Nov 29 2023 10:23AM N 0004 - NM CARDIAC PERF STRESS/EXERCISE / PROCEDURE REASON: multiple diagnoses * * * * Physician Interpretation * * * * Stress Technology Applications Consultant Report: [facility] Date of service: 11/29/2023 9:06:42 AM Supervising physician: Alcides Harmon MD PATIENT: Name: MS. VICKEY SCHWARTZ Age: 63 years Gender: F The supervising physician was in the department and immediately available. * * * Final * * * PATIENT: Name: MS. VICKEY SCHWARTZ Age: 63 years Gender: F CONCLUSIONS: 1. SPECT Perfusion Study: Normal. 2. There is no scintigraphic evidence for inducible ischemia. 3. No evidence of scarred myocardium. 4. Left ventricle is normal in size. The left ventricle systolic function is normal. 5. The right ventricle systolic function is normal. 6. This is a low risk scan. Gated Stress FBP Gated Rest FBP LVEF % 76 72 Prior Study Comparison No prior nuclear cardiology exam available for comparison. Nuclear Med Report:1-Day Gated SPECT Myocardial Perfusion with Exercise Stress: Myocardial perfusion imaging was performed at rest 30 to 60 minutes following the IV injection of the radiotracer. One minute prior to peak exercise, the patient was injected IV with the radiotracer. Gated post stress tomographic imaging was performed 10 to 20 minutes later. See administered radiotracer and doses below. [facility] Date of service: 11/29/2023 9:06:42 AM Ordering Physician: JANETT FELICIANO. Requesting Physician: JANETT FELICIANO Indication: Preop eval for noncard surg with intermediate risk and poor exercise tolerance Fellow: Christopher Cm MD Interpreting physician: Alcides Harmon MD Height: 162.56 cm BSA: 1.99 m Weight: 88.00 kg BMI: 33.3 kg/m Imaging Protocol Limitation Reason G.I. uptake and Diaphragmatic attenuation. CT Dose-Length Product(DLP): 19.0 mGy * cm. CT Dose Reduction Employed: Yes. Exam Type: Rest Stress Radiopharm: Tc-99m Tetrofosmin Tc-99m Tetrofosmin Dosage(mCi): 13.1 32.1 Atten Correction: not performed performed Stress Agent: Treadmill Resting Blood Press: 116/78 mmHg Image Quality The overall study imaging quality was deemed to be fair. The following technical issues were noted: G.I. uptake and Diaphragmatic attenuation. FINDINGS: Stress IR:3D Gated Stress FBP Gated Rest FBP LVEF: 76 % 72 % ED Volume: 66 ml 72 ml ES Volume: 10 ml 13 ml TID: 0.86 Perfusion Findings Stress IR:3D - Summed Score=0 All segments demonstrate normal perfusion. Rest IR:3D - Summed Score=0 All segments demonstrate normal perfusion. Stress IR:3D Rest IR:3D Summed Score=0 Summed Score=0 LEFT VENTRICLE The left ventricle is normal in size. Left ventricular systolic function is normal. Right Ventricle Right ventricle systolic function is normal. Stress Test Findings: There is no scintigraphic evidence for inducible ischemia. There is no evidence of scarring. * * * Final * * * NM CTAC Report: [facility] Date of service: 11/29/2023 9:06:42 AM CTAC interpreting physician: Alcides Harmon MD PATIENT: Name: MS. VICKEY SCHWARTZ Age: 63 years Gender: F 1. Incidental Findings from limited non-diagnostic CTAC: Visualization of known right lower lobe soft tissue mass, preivous described on 10/23/23 maximum dimension 1.7 cm * * * Final * * * Stress ECG Report: [facility] CHARU-2 Date of service: 11/29/2023 9:06:42 AM Ordering physician: JANETT FELICIANO building performance specialist: Renu Marr Naphthalene Still Operator: Raisa Jane Fellow: Christopher Cm MD Interpreting physician: Alcides Harmon MD Patient name: MS. VICKEY SCHWARTZ Age: 63 years Gender: F Height: 162.56 cm BSA: 1.99 m Weight: 88.00 kg BMI: 33.3 kg/m Indication: Encounter for pre-procedural cardiovascular examination for non-cardiac surgery Stress ECG Conclusion: Conclusion: Normal Stress ECG Summary: The patient's resting heart rate was 60 bpm and blood pressure was 116/78 mmHg. The patient exercised according to the [place] 5% protocol. The estimated end-exercise MET level achieved using the FRIEND equation * * * was 5.1, which is within the 25th to 50th percentile for age and sex. The estimated end-exercise MET level achieved using the previous ACSM equat (more content not included)... [facility] Radiology Study observation (narrative) [facility] NM Heart Perfusion W multipl e states of exerciseOrdered By: [facility] Provider on 11-29-2023 [facility] CNOVSPon 11-27-2023 CNOVSP Normal [facility] CNPNon 11-27-2023 CNPN Normal [facility] CNPNon 11-26-2023 CNPN Normal [facility] ANES POSTPROC EVALon 024 ANES POSTPROC EVAL HNO ID: [id number] Author: MAE CORREIA MD Service: Anesthesiology Author Type: Physician Type: Anesthesia Postprocedure Evaluation Filed: 11/22/2023 11:27 Note Text: POST ANESTHESIA EVALUATION NOTE : 1960 Procedure Summary Date: 11/22/23 Room / Location: [facility] 02 / GI Anesthesia Start: 844 Anesthesia Stop: 1007 Procedure: BRONCHOSCOPY FLEXIBLE ADULT (Bronchus) Diagnosis: Bronchiolar disease (Bronchiolar disease [J98.09]) Surgeons: Champ Garduno MD Responsible Provider: Mae Correia MD Anesthesia Type: general ASA Status: 3 Anesthesia Type: general Airway Type: LMA Last Vitals Vitals Value Taken Time BP 108/59 11/22/23 1115 Temp 36.1 ?C (97 ?F) 11/22/23 1010 HR SpO2 60 11/22/23 1117 Resp 12 11/22/23 1117 SpO2 94 % 11/22/23 1117 Vitals shown include unfiled device data. [facility] AN POST OP NOTE Anesthesia Observations No Documentation SIGNATURE: Mae Corriea MD PATIENT NAME: Vickey Schwartz DATE: November 22, 2023 TIME: 11:27 AM CSN: [id number] [facility] ANES PRE-OPon 11-22-2023 ANES PRE-OP HNO ID: [id number] Author: MAE CORREIA MD Service: Anesthesiology Author Type: Physician Type: Anesthesia Preprocedure Evaluation Filed: 11/22/2023 08:11 Note Text: ANESTHESIOLOGY DAY OF SURGERY NOTE : 1960 Procedure Information Date/Time: 11/22/23929 Procedure: BRONCHOSCOPY FLEXIBLE ADULT (Bronchus) - Tier 1 Diagnostic EBUS Sample stations 11Rs and 11Ri Location: MM [facility] 02 / MM GI Surgeons: Champ Garduno MD Estimated body mass index is 34.16 kg/m? as calculated from the following: Height as of 11/12/23: 162.6 cm (5' 4). Weight as of 11/12/23: 90.3 kg (199 lb). Most recent hematocrit and potassium results: Hematocrit 40.7 07/28/2023 Potassium 4.5 07/28/2023 Relevant Problems ANESTHESIA (+) RODRIGO (obstructive sleep apnea) -RENAL (+) Primary biliary cirrhosis (HCC) PULMONARY (+) RODRIGO (obstructive sleep apnea) Other (+) Hilar adenopathy I - PHYSICAL EVALUATION AIRWAY Patient intubated: No. Tracheostomy tube not present Mallampati: III. TM distance: >3 FB. Neck ROM: full ROM without neurological symptoms. Mouth opening: adequate. Short neck: no. Thick neck: no DENTAL Dental findings: teeth intact. Additional exam findings: no II - ANESTHESIA PLAN ASA Score: 3 Anesthetic Plan: general Airway type: ETT NPO Status: adequate Anesthetic plan additional comments: armando breath sounds normal heart sounds. Beta Brittany Monitoring Plan Monitoring plan: Standard ASA. Post Procedure Analgesic Plan Postoperative analgesic plan: parenteral or oral opioids and multimodal analgesia. Patient / Surrogate agrees to blood products: yes DNR status not reviewed with patient and/or family prior to surgery. Significant changes in the patient condition since the History and Physical, not otherwise documented in primary service progress note: no. Potential Anesthesia issues that may suggest increased risk of complications or contraindication to planned procedure: none. Vitals Value Taken Time BP 110/68 11/22/23804 Pulse 73 11/22/23804 Resp Temp 36.4 ?C (97.6 ?F) 11/22/23804 SpO2 100 % 11/22/23804 No current facility-administered medications on file as of 11/22/2023. Outpatient Medications as of 11/22/[address] (PROTONIX) 40 mg tablet Take 1 tablet by mouth once daily. ursodiol (ACTIGALL) 300 mg capsule Take 1 capsule by mouth three times a day. albuterol HFA (PROVENTIL HFA, VENTOLIN HFA) 90 mcg/actuation inhaler Inhale 2 Puffs as instructed every 4 hours as needed. hydrOXYchloroQUINE (PLAQUENIL) 200 mg tablet Take 1 tablet by mouth two times a day. clotrimazole-betamethasone (LOTRISONE) lotion Betamethasone / Clotrimazole Clotrimazole/Betamethasone Dip [Clotrimazole-Betamethasone Lot] 30 ML TP NEEDED PRN For SKIN June 14, 2017 Active 06-14-2017 [facility] ([id number]) Clobetasol Propionate (TEMOVATE) 0.05 % external solution Apply to affected areas on the scalp twice a day. Dispense 100ml as 30 day supply. biotin 5,000 mcg ODT Take 1 tablet by mouth once daily. Calcium-Cholecalciferol, D3, 500 mg-10 mcg (400 unit) per tablet Take 1 tablet by mouth once daily. triamcinolone acetonide (KENALOG) 0.1 % cream Apply to rash on body twice a day M-, take weekends off I have interviewed and examined the patient. I have reviewed the medical record and/or the pre-anesthesia evaluation, pertinent labs, and test results. This contains updated information obtained within 48 hours of Surgery/Procedure. SIGNATURE: Mae Correia MD PATIENT NAME: Vickey Schwartz DATE: November 22, 2023 TIME: 8:11 AM CSN: [id number] [facility] BRIEF OP NOTon 11-22-2023 BRIEF OP NOT HNO ID: [id number] Author: CHAMP GARDUNO MD Service: Critical Care Author Type: Physician Type: Brief Op Note Filed: 11/22/2023 10:02 Note Text: BRIEF OPERATIVE / PROCEDURE NOTE LOG ID: [id number] SURGERY/PROCEDURE DATE: 11/22/2023 INCISION/PROCEDURE START TIME: 8:56 AM INCISION CLOSE/PROCEDURE END TIME: 9:59 AM SURGEON(S)/PROCEDURALIST(S) AND ALUM PLANT SUPERVISOR(S): Surgeons and Role: * Champ Garduno MD - Primary * Veronique Matthews MD - Assisting No Additional Staff SURGERY/PROCEDURE(S): Bronchoscopy ANESTHESIA: General FINDINGS: see operative report ESTIMATED BLOOD LOSS: 5 mls SPECIMENS: See operative note for details COMPLICATIONS: No major complications encountered DRAINS: None IMPLANTS: * No implants in log * PRE-OP/PRE-PROCEDURE DIAGNOSIS: NSCLC, adenopathy POST-OP/POST-PROCEDURE DIAGNOSIS: Same as Preop SIGNATURE: Champ Garduno MD PATIENT NAME: Vickey Schwartz DATE: November 22, 2023 TIME: 10:02 AM [facility] CNPNon 11-22-2023 CNPN [facility] CYTOLOGY NON-GYNon ADEQUACY INTERPRETATION [facility] Comment on above: Order Comment: Speci men Type: SPECIMEN OBTAINED BY ASPIRATION Ordering Facility: [facility] Address: [address] [place] [address] Result Comment: A: # 1 Non-diagnostic #2,3 Lymphoid sample B: #1 Positive for non-small cell carcinoma C: #1,2 Non-diagnostic #3 Positive for non-small cell carcinoma Dr. Freddy Stearns/Keon Christensen/Eliceo Gan Each letter in the above intra-procedural assessment refers to a unique site. The specific site is indicated in the final diagnosis portion of the report. Each number in this assessment references a discrete evaluation episode. Intra-procedural assessment performed at [facility], [address] [place] [address] Performed By: #### F SHTPA #### [facility] CLIA [id number] [address] [place] [address] [place] #### [place] #### [facility] CLIA [id number] [address] [place] [address] STATES OF [facility] CLIA [id number] [address] [place] [address] [place] CASE REPORT [facility] Comment on above: Order Comment: Speci men Type: SPECIMEN OBTAINED BY ASPIRATION Ordering Facility: [facility] Address: [address] [place] [address] Result Comment: Medi radha Cytology Report Case: [id number] Authorizing Provider: Champ Garduno MD Collected: 11/22/2023 08:53 AM Ordering Location: [facility] Received: 11/22/2023 10:06 AM Endoscopy Pathologist: Eloise Stearns MD Specimens: A) - Lymph Node, Transbronchial, 4R B) - Lymph Node, Transbronchial, 11RS C) - Lymph Node, Transbronchial, 11RI Performed By: #### F SHTPA #### [facility] CLIA [id number] [address] [place] [address] [place] #### [place] #### [facility] CLIA [id number] [address] [place] [address] [facility] CLIA [id number] [address] [place] [address] [place] CLINICAL HISTORY [facility] Comment on above: Order Comment: Speci men Type: SPECIMEN OBTAINED BY ASPIRATION Ordering Facility: [facility] Address: [address] [place] [address] Result Comment: Pre- op diagnosis: Bronchiolar disease [J98.09] Right lower lobe adenocarcinoma with right hilar adenopathy Performed By: #### F SHTPA #### [facility] CLIA [id number] [address] [place] [address] [place] #### [place] #### [facility] CLIA [id number] [address] [place] [address] [facility] CLIA [id number] [address] [place] [address] [place] DIAGNOSIS COMMENT Dr. Freddy Ram has revi ewed this case and agrees with the above interpretation. [facility] Comment on above: Order Comment: Speci men Type: SPECIMEN OBTAINED BY ASPIRATION Ordering Facility: [facility] Address: [address] [place] [address] Performed By: #### F SHTPA #### [facility] CLIA [id number] [address] [place] [address] [place] #### [place] #### [facility] CLIA [id number] [address] [place] [address] [place] [facility] CLIA [id number] [address] [place] [address] [place] FINAL DIAGNOSIS [facility] Comment on above: Order Comment: Speci men Type: SPECIMEN OBTAINED BY ASPIRATION Ordering Facility: [facility] Address: [address] [place] [address] Result Comment: A - Lymph Node, Transbronchial, Aspirate/Fine Needle Aspirate - 4R Negative for malignant cells. Benign lymphoid sample. B - Lymph Node, Transbronchial, Aspirate/Fine Needle Aspirate - 11RS Positive for malignant cells. Non-small cell carcinoma. C - Lymph Node, Transbronchial, Aspirate/Fine Needle Aspirate - 11RI Positive for malignant cells. Non-small cell carcinoma. The following cell blocks were associated with this case: A1\X09\Cell Block, Alcohol Fixed\X09\ B1\X09\Cell Block, Alcohol Fixed\X09\ C1\X09\Cell Block, Alcohol Fixed\X09\ Performed By: #### F SHTPA #### [facility] CLIA [id number] [address] [place] [address] [place] #### [place] #### [facility] CLIA [id number] [address] [place] [address] [place] [facility] CLIA [id number] [address] [place] [address] [place] FINAL PERFORMING LAB [facility] Comment on above: Order Comment: Speci men Type: SPECIMEN OBTAINED BY ASPIRATION Ordering Facility: [facility] Address: [address] [place] [address] Result Comment: Tech nical component, molecular pathologist screening performed at [facility], [address] [place] [address] CLIA# [id number] Diagnostic interpretation performed at [facility], [address] [place], [place] [id number] CLIA# [id number] Qa Manager: Grady Ndiaye M.D. Performed By: #### F SHTPA #### [facility] CLIA [id number] [address] [place] [address] [place] #### [place] #### [facility] CLIA [id number] [address] [place] [address] [place] [facility] CLIA [id number] [address] [place] [address] [place] GROSS DESCRIPTION [facility] Comment on above: Order Comment: Speci men Type: SPECIMEN OBTAINED BY ASPIRATION Ordering Facility: [facility] Address: [address] [place] [address] Result Comment: A. L ymph Node, Transbronchial 30 cc cloudy pink CytoLyt with material. ThinPrep and Cell Block prepared and 6 smears (3 air dried and 3 fixed). B. Lymph Node, Transbronchial 35 cc cloudy pink CytoLyt with material. ThinPrep and Cell Block prepared and 2 smears (1 air dried and 1 fixed). C. Lymph Node, Transbronchial 30 cc cloudy pink CytoLyt with material. ThinPrep and Cell Block prepared and 6 smears (3 air dried and 3 fixed). Performed By: #### F SHTPA #### [facility] CLIA [id number] [address] [place] [address] [place] #### [place] #### [facility] CLIA [id number] [address] [place] [address] [place] [facility] CLIA [id number] [address] [place] [address] [place] ORDER COMMENT [facility] Comment on above: Order Comment: Speci men Type: SPECIMEN OBTAINED BY ASPIRATION Ordering Facility: [facility] Address: [address] [place] [address] Result Comment: Pre- op diagnosis: Bronchiolar disease [J98.09] Performed By: #### F SHTPA #### [facility] CLIA [id number] [address] [place] [address] [place] #### [place] #### [facility] CLIA [id number] [address] [place] [address] STATES OF [facility] CLIA [id number] OF [place] FISH FOR ALK (2P23) THINPREP NSCLCon 11-22-2023 FISH FOR ALK (2P23) THINPREP NSCLC [facility] Comment on above: Order Comment: Speci men Type: SPECIMEN OBTAINED BY ASPIRATION Ordering Facility: [facility] Address: [address] [place] [address] Result Comment: FISH FOR ALK (2P23) THINPREP NSCLC Laboratory Accession Number: [id number] Case: [id number] Block: C1 Sample Type: FNA Sample Description: LYMPH NODE, 11RI, TRANSBRONCHIAL FNA Received Date: 12/01/2023 Number of nuclei scored: 50 RESULT: Result Reference Range ALK Rearrangement 0% (0-14%) INTERPRETATION: Interphase FISH was negative for a rearrangement involving the ALK gene at 2p23.2. Nomenclature: nuc neli(ALKx3~6)[42/50] METHODOLOGY: The dual color, ALK (2p23.2-2p23.1) Break Apart FISH Probe Kit ([employer], [place], [place]), approved for formalin-fixed, paraffin- embedded tissue by the Food and Drug Administration (FDA) for selection of locally advanced or metastatic non-small cell lung cancer patients for treatment with crizotinib, was modified for use with ThinPrep cytopathology slides as a laboratory developed test. Fifty (50) interphase cancer cells were analyzed. The slides were scored manually. REFERENCES: 1) Fidel HOLGUIN, Gab YCharleyJ, Rose Marie LOWRY, et al. Anaplastic Lymphoma Kinase Inhibition in Qqw-Qbwfm-Nulj Lung Cancer. N Engl J Med 2010;363:2661-4506. 2) Ferd NI, Jeremiah PT, Justice [place], et al. Molecular Testing Guideline for the Selection of Lung Cancer Patients for EGFR and ALK Tyrosine Kinase Inhibitors: Guideline from the College of [place] Pathologists, International Association for the Study of Lung Cancer, and Association for Molecular Pathology. J Mol Diagn 2013;15:415-53. 3) NCCN Clinical Practice Guidelines in Oncology: Non-Small Cell Lung Cancer, National Comprehensive Cancer Network, Inc. Available at NCCN.org. 4) Ron SJ, Mary Grace M, Radha S, et al. Unique clinicopathologic features characterize ALK-rearranged lung adenocarcinoma in the western population. Clin Cancer Res 2009;15:8941-7545. LIMITATIONS: This test will not identify all rearrangements in ALK. Rare, cryptic abnormalities may be below the resolution of the assay, or may otherwise be undetected. Specimen size, quality or representativeness can affect the quality of the results. DISCLAIMER: This test was developed and its performance characteristics determined by [facility]'s Pathology and Laboratory Medicine Department. It has not been cleared or approved by the FDA. [facility]'s Pathology and Laboratory Medicine Department is regulated under CLIA as certified to perform high-complexity testing. This test is used for clinical purposes. It should not be regarded as investigational or for research. Interpretation performed at [facility], [address] [place] [address]. CLIA Number: [id number] As reviewed by Yuliya Higuera MD, PhD Performed By: #### F SHTPA #### [facility] CLIA [id number] [address] [place] [address] [place] #### [place] #### [facility] CLIA [id number] [address] [place] [address] [place] [facility] CLIA [id number] [address] [place] [address] [place] FISH FOR RET (10Q11.21)on FISH FOR RET (10Q11.21) [facility] Comment on above: Order Comment: Speci men Type: TISSUE SPECIMEN Ordering Facility: [facility] Address: [address] [place] [address] Result Comment: FISH for RET (10q11.21) Laboratory Accession Number: [id number] Case: [id number] Block/Part ID: A1 Sample Type: FFPET Sample Description: LYMPH NODE, 11RS, CORE BIOPSY Received Date: 12/05/2023 Number of nuclei scored: 50 RESULT: Result Reference Range RET Rearrangement 4% (0-14%) INTERPRETATION: A rearrangement involving the RET gene at 10q11.21 was not detected. Clinical and pathological correlation is recommended. Nomenclature: nuc neli(RETx3~4)[]/(RETx1)[] METHODOLOGY: A dual color, break apart probe specific to the RET gene at 10q11.21 ([employer] [place], [place]) was used in this interphase FISH assay to detect the presence of a RET rearrangement. The slides were scored manually. REFERENCES: Armand Parekh, Aidan L, Dereje A, et al. Response to Cabozantinib in patients with RET fusion-positive lung adenocarcinomas. Cancer Discov 2013;3:630-5 2. Timmy NAIDU. RET revisited: expanding the oncogenic portfolio. Linda Rev Cancer 2014;14:173-86 3. Radames C, et al. Molecular methods for somatic mutation testing in lung adenocarcinoma: EGFR and beyond. Trans Lung Cancer Res 2015;4:126-41 4. National Comprehensive Cancer Network (NCCN) Clinical Practice Guidelines in Oncology, Non-Small Cell Lung Cancer, Available at NCCN.org LIMITATIONS: This test will not identify all rearrangements in RET. Rare, cryptic abnormalities may be below the resolution of the assay, or may otherwise be undetected. Specimen size, quality or representativeness can affect the quality of the results. This assay has been validated for tissues fixed with neutral buffered formalin. Decalcification agents and fixation agents containing heavy metals, e.g. B5, or harsh acid or base components (e.g. Bouin's solution) can adversely impact assay performance. DISCLAIMER: This test was developed and its performance characteristics determined by [facility]'s Pathology and Laboratory Medicine Department. It has not been cleared or approved by the FDA. [facility]'s Pathology and Laboratory Medicine Department is regulated under CLIA as certified to perform high-complexity testing. This test is used for clinical purposes. It should not be regarded as investigational or for research. Interpretation performed at [facility], [address] [place] [address]. CLIA Number: [id number] As reviewed by Yuliya Higuera MD, PhD Performed By: #### R ET, ROS1 #### [facility] HARLE[facility] CLIA [id number] [address] [place] [address] [place] #### S #### [facility] CLIA [id number] [address] [place] [address] [place] HISTORY PHYSICALon 4 HISTORY PHYSICAL HNO ID: [id number] Author: CHAMP GARDUNO MD Service: Critical Care Author Type: Physician Type: H&P Filed: 11/22/2023 08:43 Note Text: PULMONARY HANDP Date of service: November 22, 2023 REASON FOR VISIT: NSCLC with hilar adenopathy REQUESTED BY: Janett Feliciano MD IMPRESSION/OPINION: Hypermetabolic hilar adenopathy - Atypical cell from 11Rs suspicious for malignancy - Hypermetabolic 11Ri NSCLC of RLL, poorly diff favoring adenocarcinoma - [id number] - No targetable mutation - S/p staging EBUS with lymphoid sample from 7 CTD-associated ILD, UIP pattern -On HCQ -Mild obstructive defect with significant response to bronchodilators -Normal diffusion Primary biliary cirrhosis I reviewed the findings on the most recent CT of the chest and prior CT and pet imaging. We discussed the need for bronchoscopy to clarify the status of the hilar lymph nodes and obtain more tissue. I discussed the details of the procedure under general anesthesia. We reviewed the risks benefits and alternatives. She is interested in proceeding. Plan AND Recommendations: - Proceed with bronchoscopy and limited EBUS under general anesthesia. She is in agreement. No contraindication to general anesthesia -Preoperative blood work and EKG are reviewed. -All questions were answered. She verbalized understanding. -Results will be forwarded to Dr. Castle, Dr. Ross, and Dr. Feliciano Thanks for letting me participate in this patient's care. Please feel free to call me with questions and concerns. Champ Garduno MD Pulmonary AND Critical Care Staff Respiratory [place] [facility] SUBJECTIVE November 22, 2023 She has been doing about the same. She is off work today -HPI November 21, 2023 This is a very pleasant lady who is here for preop evaluation. Unfortunately she was not able to connect to [employer] due to poor Internet connection at work. She is a 63-year-old lady with trivial smoking history quit in 2016, interstitial lung disease, lupus on hydroxychloroquine, and primary biliary cholangitis. She was following with Dr. Ross at [facility] and was evaluated by Dr. Hightower for concern of interstitial lung disease. She had high-resolution CT scan in June 2023 that revealed new right lower lobe nodule compared to prior CT imaging in 2021. PET/CT imaging was done and she was scheduled for bronchoscopy. She had EBUS guided mediastinal staging which revealed atypical cells suspicious for malignancy and station 11 RS. She went on to undergo CT-guided biopsy of the right lower lobe nodule locally that showed poorly differentiated non-small cell lung cancer. Her case was discussed at the chest tumor board and concern for hilar involvement and Station 11 RI was raised. She was evaluated by medical oncology and the team was in favor of obtaining more tissue for further molecular testing and confirmation of superior and inferior ipsilateral hilar involvement. She denies persistent cough or sputum production. She denies chest pain or hemoptysis. Her weight is stable and her appetite is good. She reports shortness of breath only with strenuous activity walking long distance or at a fast pace. 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 No Does the patient have COPD/Emphysema? No Does the patient have a family history of lung cancer? No Medications and allergies were reviewed. Past medical surgical social and family history were reviewed Current Facility-Administered Medications Medication Dose Route Frequency lidocaine (PF) 10 mg/mL (1 %) 1-2 mg injection (XYLOCAINE) 0.1-0.2 mL INTRADERMAL PRN NaCl 0.9% iv flush bag 20 mL INTRAVENOUS PRN PAST MEDICAL HISTORY Diagnosis Date Hemorrhage of rectum and anus HYPERLIPIDEMIA MIXED 07/10/2005 Lung nodule 06/13/2016 June 25, 2017 subcentimeter lung nodules and interstitial lung disease also stable from 2017: check CT in 1 year. Primary biliary cholangitis (HCC) Snoring Systemic lupus erythematosus (HCC) PAST SURGICAL HISTORY Procedure Laterality Date BRONCHOSCOPY 07/31/2023 COLONOSCOPY FLX DX W/COLLJ SPEC WHEN PFRMD 06/29/2016 HAD VASOVAGAL RESPONSE DURING PROCEDURE SYST BP 60'S HR 40'S-GIVEN ATROPINE CORRJ HLX VLGS BNCTY SESMDC DSTL METAR OSTEOT 1985 DIAGNOSTIC ARTHROSCOPY SHOULDER +- SYNOVIAL BX Left 04/03/2018 Left shoulder arthroscopic subacromial decompression, rotator cuff repair, and biceps tenotomy EGD 12/25/2022 repeat 2 years ESOPHAGOGASTRODUODENOSCOPY TRANSORAL DIAGNOSTIC 11/11/2018 EGD ESOPHAGOGASTRODUODENOSCOPY TRANSORAL DIAGNOSTIC 11/22/2020 repeat in 2 years FOOT SURGERY HX 1986 HYSTEROSCOPY 06/21/2017 [facility] LUNG BIOPSY HX 08/24/2023 SIGMOIDOSCOPY ?1999 SKIN BIOPSY HX TONSILLECTOMY HX Social History Tobacco Use Smoking status: Forme (more content not included)... [facility] PD-L1 22C3on 11-22-2023 AP BIOMARKER DISCLAIMER [facility] Comment on above: Order Comment: Speci men Type: TISSUE SPECIMEN Ordering Facility: [facility] Address: [address] [place] [address] Result Comment: Elder arreguin Developed Test (LDT) Disclaimer: Performance characteristics of immunohistochemical, immunofluorescent and chromogenic in-situ hybridization tests have been determined by the performing laboratory within [facility]???s [facility] Pathology and Laboratory Medicine Department ([facility], [facility], [facility], [facility], [facility], [facility], or [facility]) in a manner consistent with CLIA requirements. One or more of these tests have not been cleared or approved by the FDA. [facility] is regulated under CLIA as qualified to perform high-complexity testing. These tests are used for clinical purposes. They should not be regarded as investigational or for research. Positive and negative controls stain appropriately. Performed By: #### L [id number] #### [facility] CLIA [id number] [address] [place] [address] [place] [address] [place] AP BLOCK ID A1 [facility] Comment on above: Order Comment: Speci men Type: TISSUE SPECIMEN Ordering Facility: [facility] Address: [address] [place] [address] Performed By: #### L [id number] #### [facility] CLIA [id number] [address] [place] [address] BIOMARKER INTERPRETATION COMMENT AND REFERENCE RANGE [facility] Comment on above: Order Comment: Speci men Type: TISSUE SPECIMEN Ordering Facility: [facility] Address: [address] [place] [address] Result Comment: Poor ly differentiated carcinoma Interpretation standard: TPS: The Tumor Proportion Score is the percentage of the viable tumor cells demonstrating partial or completed membrane staining of any intensity. Reference Range for PDL1 expression in Non-Small Cell Lung Cancer (NSCLC) TPS less than 1%: Negative TPS between 1 - 49%: Low Positive TPS greater than 50%: High Positive The PDL1 expression of Non-Small Cell Lung Cancer (NSCLC) is interpreted to determine if the patient should be considered for treatment with either pembrolizumab (KEYTRUDA) or cemiplimab-rwlc (LIBTAYO). Please refer to the Product label for additional information. KEYTRUDA - (https://www.keytrudaBadgep.com/prescribing-information/) LIBTAYO - (https://[email or web address]/sites/default/files/Libtayo_FPI.pdf) Performed By: #### L [id number] #### [facility] CLIA [id number] [address] [place] [address] [place] BIOMARKER METHOD Immunohistochemistry was performed on formalin fixed paraffin-embedded tissue using the mouse monoclonal antibody 22C3 ([employer]; [place], [place]) followed by ultrasensitive bright field detection (Optiview with amplification [[employer], [place]]). [facility] Comment on above: Order Comment: Speci men Type: TISSUE SPECIMEN Ordering Facility: [facility] Address: [address] [place] [address] Performed By: #### L [id number] #### [facility] CLIA [id number] [address] [place] [address] OF [place]ASE [facility] CASE NUMBER PD-L1 [id number] [facility] Comment on above: Order Comment: Speci men Type: TISSUE SPECIMEN Ordering Facility: [facility] Address: [address] [place] [place] [id number] Performed By: #### L [id number] #### [facility] CLIA [id number] [address] [place] [address] [place] FIXATIVE Formalin, 10% Neutra l Buffered [facility] Comment on above: Order Comment: Speci men Type: TISSUE SPECIMEN Ordering Facility: [facility] Address: [address] [place] [address] Performed By: #### L [id number] #### [facility] CLIA [id number] [address] [place] [address] [place] PD-L1 22C3 TPS (LUNG) INTERPRETATION [facility] Comment on above: Order Comment: Speci men Type: TISSUE SPECIMEN Ordering Facility: [facility] Address: [address] [place] [address] Performed By: #### L [id number] #### [facility] CLIA [id number] [address] [place] [address] [place] PD-L1 TUMOR TYPE Other (See Comment) [facility] Comment on above: Order Comment: Speci men Type: TISSUE SPECIMEN Ordering Facility: [facility] Address: [address] [place], [place] [address] Performed By: #### L [id number] #### [facility] CLIA [id number] [address] [place], [place] [address] [place] TUMOR PROPORTION SCORE (TPS) 70 [facility] Comment on above: Order Comment: Speci men Type: TISSUE SPECIMEN Ordering Facility: [facility] Address: [address] [place], [place] [address] Performed By: #### L [id number] #### [facility] CLIA [id number] [address] [place], [place] [address] [place] ROS1 GENE REARRANGEMENTon FISH FOR ROS1 (6Q22) [facility] Comment on above: Order Comment: Speci men Type: TISSUE SPECIMEN Ordering Facility: [facility] Address: [address], [place] [address] Result Comment: FISH for ROS1(6q22) Laboratory Accession Number: [id number] Case: [id number] Block/Part ID: A1 Sample Type: FFPET Sample Description: LYMPH NODE, 11RS, CORE BIOPSY Received Date: 12/05/2023 Number of nuclei scored: 50 RESULT: Result Reference Range ROS1 Rearrangement 0% (0-14%) INTERPRETATION: A rearrangement involving the ROS1 gene at 6q22.1 was not detected. Clinical and pathological correlation is recommended. Nomenclature: nuc neli(ROS1x1)[] METHODOLOGY: A dual color, break apart probe specific to the ROS1 gene at 6q22.1 ([employer] ([employer]), [place], [place]) was used in this interphase FISH assay to detect the presence of a ROS1 rearrangement. The slides were scored manually. REFERENCES: 1) Marc PRO, Karen RC. Molecular Pathways: ROS1 Fusion Proteins in Cancer. Clin Cancer Res 2013;15:1-6. Eduardo RICO, Chinmay Best, et al. Crizotinib in Ros1-Rearranged Non-Small Cell Lung Cancer. New Encl J Med 2014;21:1963-71 2) Marry Black Yung-Jue B, et al. Crizotinib in ROS1-Rearranged Non-Small Lung Cancer. New Engl J Med 2014;21:1963-71 3) Radames Bashir, et al. Molecular methods for somatic mutation testing in lung adenocarcinoma: EGFR and beyond. Transl Lung Cacer Res 2015;4:126-41 4) Ina M, Allison A, Elizabeth C, et al. ROS1 rearrangements in lung adenocarcinoma: prognostic impact, therapeutic options and genetic variability. Oncotarget 2015; e-pub ahead of print, April 29, 2014. 5) National Comprehensive Cancer Network (NCCN) Clinical Practice Guidelines in Oncology, Non-Small Cell Lung Cancer. Available at NCCN.org LIMITATIONS: This test will not identify all rearrangements in ROS1. Rare, cryptic abnormalities may be below the resolution of the assay, or may otherwise be undetected. Specimen size, quality or representativeness can affect the quality of the results. This assay has been validated for tissues fixed with neutral buffered formalin. Decalcification agents and fixation agents containing heavy metals, e.g. B5, or harsh acid or base components (e.g. Bouin's solution) can adversely impact assay performance. DISCLAIMER: This test was developed and its performance characteristics determined by [facility]. It has not been cleared or approved by the FDA. [facility] is regulated under CLIA as certified to perform high-complexity testing. This test is used for clinical purposes. It should not be regarded as investigational or for research. Interpretation performed at [facility], [address] [place] [address]. CLIA Number: [id number] As reviewed by Yuliya Higuera MD, PhD Performed By: #### R ET, ROS1 #### [facility] CLIA [id number] [address] [place] [address] [place] #### S #### [facility] CLIA [id number] [address] [place] [address] [place] SURGICAL PATHOLOGYon 024 ADDENDUM 1: [facility] Comment on above: Order Comment: Speci men Type: TISSUE SPECIMEN Ordering Facility: [facility] Address: [address] [place] [address] Result Comment: An i mmunohistochemical stain for NUT was performed and is negative in the tumor cells. The diagnosis is unchanged. Addendum electronically signed by Ruthann Crane MD, PhD on 11/30/2023 at 8:39 AM Performed By: #### R ET, ROS1 #### [facility] CLIA [id number] [address] [place] [address] [place] #### S #### [facility] CLIA [id number] [address] [place] [address] [place] CASE REPORT [facility] Comment on above: Order Comment: Speci men Type: TISSUE SPECIMEN Ordering Facility: [facility] Address: [address] [place] [address] Result Comment: Surg [facility] Pathology Report Case: [id number] Authorizing Provider: Champ Garduno MD Collected: 11/22/2023 09:22 AM Ordering Location: [facility] Received: 11/22/2023 10:01 AM Endoscopy Pathologist: Ruthann Crane MD, PhD Specimen: Lymph Node, Biopsy, 11RS core bx Performed By: #### R ET, ROS1 #### [facility] CLIA [id number] [address] [place] [address] [place] #### S #### [facility] CLIA [id number] [address] [place] [address] [place] CLINICAL HISTORY Normal [facility] Comment on above: Order Comment: [place] [employer] Type: TISSUE SPECIMEN Ordering Facility: [facility] Address: [address] [place] [address] Result Comment: Pre- op diagnosis: Bronchiolar disease [J98.09] Performed By: #### R ET, ROS1 #### [facility] I[facility] LIM[facility] CLIA [id number] [address] [place] [address] [place] #### S #### [facility] CLIA [id number] [address] [place] [address] [place] DIAGNOSIS COMMENT Normal [facility] Comment on above: Order Comment: [facility] Type: TISSUE SPECIMEN Ordering Facility: [facility] Address: [address] [place] [address] Result Comment: A. I mmunohistochemical stains show that the tumor cells are positive for pankeratin (AE1/AE3), CAM5.2, and claudin-4 and are negative for TTF-1, p40, chromogranin, INSM1, CDX2, and GATA3. Areas of non-small cell carcinoma are noted. However, there are areas with crush artifact where the possibility of a small cell component cannot be entirely excluded. While the findings could be consistent with lung origin, the morphology and immunohistochemical profile are non-specific in terms of site of origin. Clinical and radiologic correlation are required. Select slides from this case were also reviewed by Dr. Pancho Gray. Laboratory Developed Test (LDT) Disclaimer: Performance characteristics of immunohistochemical, immunofluorescent and chromogenic in-situ hybridization tests have been determined by the performing laboratory within [facility] ([facility], [facility], [facility], [facility], [facility], [facility], or [facility]) in a manner consistent with CLIA requirements. One or more of these tests have not been cleared or approved by the FDA. [facility] is regulated under CLIA as qualified to perform high-complexity testing. These tests are used for clinical purposes. They should not be regarded as investigational or for research. Positive and negative controls stain appropriately. Performed By: #### R ET, ROS1 #### [facility] CLIA [id number] [address] [place] [address] [place] #### S #### [facility] CLIA [id number] [address] [place] [address] [facility] FINAL DIAGNOSIS [facility] Comment on above: Order Comment: Speci men Type: TISSUE SPECIMEN Ordering Facility: [facility] Address: [address] [place] [address] Result Comment: Izabella. Octavio ymph node, 11RS, biopsy: - Poorly differentiated carcinoma (see comment). Performed By: #### R ET, ROS1 #### [facility] LIM[facility] CLIA [id number] [address] [place] [address] [place] #### S #### [facility] CLIA [id number] [address] [place] [address] [place] FINAL PERFORMING LAB [facility] Comment on above: Order Comment: Speci men Type: TISSUE SPECIMEN Ordering Facility: [facility] Address: [address] [place] [address] Result Comment: Diag nostic interpretation performed at [facility], [address] [place] [address] CLIA# [id number] Qa Manager: Grady Ndiaye M.D. Performed By: #### R ET, ROS1 #### [facility] CLIA [id number] [address] [place] [address] [place] #### S #### [facility] CLIA [id number] [address] [place] [address] [place] Result Comment: Diag nostic interpretation performed at: [facility], [address] [place] [address] CLIA# [id number] Qa Manager: Grady Ndiaye MD Electronically signed out by: Ruthann Crane MD, PhD Performed By: #### L [id number] #### [facility] CLIA [id number] [address] [place] [address] [place] GROSS DESCRIPTION Normal [facility] Comment on above: Order Comment: Speci men Type: TISSUE SPECIMEN Ordering Facility: [facility] Address: [address] [place] [address] Result Comment: A. L ymph Node, Biopsy Received in formalin are multiple segments of cylindrical tissue aggregating to 2.1 x 0.3 x 0.1 cm, tay to tay-brown and of a soft and friable consistency. Totally submitted in one cassette. DB November 22, 2023 2:48 PM Gross examination performed at [facility], [address] [place] [address] Performed By: #### R ET, ROS1 #### [facility] CLIA [id number] [address] [place] [address] [place] #### S #### [facility] CLIA [id number] [address] [place] [address] [place] TARGETED ONCOLOGY PANEL NEXT GENERATION SEQUENCING CYTOLOGYon 11-22-2023 TARGETED ONCOLOGY PANEL NEXT GENERATION SEQUENCING CYTOLOGY [facility] Comment on above: Order Comment: Speci men Type: SPECIMEN OBTAINED BY ASPIRATIONOrdering Facility: [facility] Address: [address] [id number] Result Comment: [facility] Targeted Oncology Panel Laboratory Accession Number: [id number] Case #: [id number] Part ID: C1 Sample Type: FFPET % Tumor: 30 CASE SUMMARY: BRAF Jst669Mdt is detected. This test does not distinguish between variants that are germline versus somatic. The results should be interpreted in the context of the clinical and pathological findings for a final evaluation. *Unless otherwise stated, all assay hotspot regions have been tested (see EVALUATED GENES below) and only positive genes are reported. RESULTS: Single Nucleotide Variants/Indels: BRAF\X09\p.Rls782Hzn \X09\NM_004333.4:c.1396G>C \X09\35.6% VAF, Depth 3057x, Ex11 Copy Number Gains: None Detected RNA Fusions and Aberrant Transcripts: None Detected VARIANT INTERPRETATIONS: BRAF p.Gkx890Pyh NM_004333.4:c.1396G>C The likely clinically significant G466R variant in BRAF was detected in this specimen. BRAF encodes for serine/threonine-protein kinase B-alexandria, which signals through the MAPK pathway (PMID: 15849278). BRAF alterations, copy number gains and fusions have been observed in a variety of tumor types. Class 1 and 2 BRAF alterations are PRABHJOT- independent and signal either as active monomers (Class 1) or constitutively active dimers (Class 2), while Class 3 BRAF alterations have impaired or no kinase activity and require PRABHJOT activation for signaling (PMID: 44078455). BRAF fusions often result in the loss of the C1 domain and retention of the tyrosine kinase domain, resulting in constitutive activation. Variants of uncertain significance detected: None Detected Regions with coverage <100x: FGFR1:NM_023110.2:Exon13 chr8:[id number] Range: 53-70; METHODOLOGY: Extracted nucleic acid from the specimen, both DNA and RNA, were subjected to separate targeted amplification reactions, using [employer] custom primers designed by [employer] ([employer], [place], [place]). Hotspots and selected fusions in gene regions listed below were sequenced using Illumina ([place], [place]) 2x150 paired-end cycle chemistry. A customized bioinformatics analytical platform was used for read alignment (Genome Build GRCh37/hg19), variant identification and annotation. Single nucleotide variants (SNVs), insertion, deletion (indels) and copy number gain variants are detected by DNA sequencing. Select fusions and aberrant transcripts (EGFR vIII and MET exon 14 skipping transcripts) are detected by RNA sequencing. Variants are classified according to established guidelines (1). Reported results include variants of strong or potential clinical significance and variants of unclear clinical significance. Benign population polymorphisms are not included in the report. Based on validation, the DNA testing delivered an average of >500x coverage and >99% of targeted regions showed over 100x coverage. A minimum coverage depth of 100 reads is required across the entire region of interest; a list of low coverage areas is included in the report as applicable. The test demonstrated 100% sensitivity and 100% specificity in identifying SNVs, indels and copy number gains. The lower limit of detection of this assay is approximately 5% variant allele fraction (VAF) for SNV/indels and 6 copies or greater for copy number gains. Variants below these thresholds may be reported at the discretion of the molecular pathology professional staff if the technical quality of the sequencing is sufficient at that location and the call is unequivocal. Based on validation, the RNA fusion testing averaged >150,000 total reads. The test demonstrated 93% sensitivity and 100% specificity in gene fusion identification compared to NGS sequencing, and 69% sensitivity and 100% specificity compared to FISH of fusion drivers (unknown fusion partner). Overall sensitivity is 78% and accuracy is 99%. The lower limit of detection is approximately 1% of total sequencing reads. LIMITATIONS: Sequence changes outside the analyzed alterations hotspots, including intronic and noncoding regions, will not be identified by this test. Insertions and deletions larger than 20 and 40 bp, respectively, may not be identified by this test. Negative results from specimens for which the percentage of tumor cells is 10% or less should be interpreted with caution. Although variant allele fraction is provided as a percentage, this is not a quantitative test. RNA fusions involving alternative partners or breakpoints outside of the targeted regions cannot be detected by this test. This test does not distinguish between somatic and inherited variants. Tumor heterogeneity, tumor burden, specimen degradation or other limitations of the technology may affect the sensitivity and limit of detection, either broadly across the regions of interest or for specific regions and may lead to false negative results. For tumor tissue, fixation (more content not included)... Performed By: #### T OPCY ####[facility] HARLEEN WILLIMARINA [id number] [place] [id number] [place] [facility] CNPNon 11-17-2023 CNPN Normal [facility] HISTORY PHYSICALon [facility] PHYSICAL [id number] SCH[facility]ART[facility] ([id number]) 1960 F Date Time Provider Department 11/07/23 ROCHELLE KONG [id number] During your visit today, we recorded the following information about you: Rochelle Kong 11/07/2023 7:28 AM Signed Attempted to contact Vickey on mobile number, but call could not complete. Will attempt home phone number later in the day Allergies As of Date: 11/07/2023 Noted Allergy Reaction ADHESIVE TAPE (ROSINS) 04/15/2018 9 - Itching Comments: Itching and redness Date Reviewed: 10/22/2023 Reviewed by: Kindra Lux Ma, AGUSTÍN - Fully Assessed Prescriptions as of 11/07/2023 - pantoprazole DR (PROTONIX) 40 mg tablet Take 1 tablet by mouth once daily. - ursodiol (ACTIGALL) 300 mg capsule Take 1 capsule by mouth three times a day. - albuterol HFA (PROVENTIL HFA, VENTOLIN HFA) 90 mcg/actuation inhaler Inhale 2 Puffs as instructed every 4 hours as needed. - hydrOXYchloroQUINE (PLAQUENIL) 200 mg tablet Take 1 tablet by mouth two times a day. - clotrimazole-betamethasone (LOTRISONE) lotion Betamethasone / Clotrimazole Clotrimazole/Betamethasone Dip [Clotrimazole-Betamethasone Lot] 30 ML TP NEEDED PRN For SKIN June 14, 2017 Active 06-14-2017 [facility] ([id number]) - tacrolimus (PROTOPIC) 0.1 % ointment Apply twice daily to affected areas on face - Clobetasol Propionate (TEMOVATE) 0.05 % external solution Apply to affected areas on the scalp twice a day. Dispense 100ml as 30 day supply. - biotin 5,000 mcg ODT Take 1 tablet by mouth once daily. - Calcium-Cholecalciferol, D3, 500 mg-10 mcg (400 unit) per tablet Take 1 tablet by mouth once daily. 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9 [E66.811] 10/04/2023 Encounter Status:Closed by ROCHELLE KONG on 11/07/23 [facility] Telephone ([id number]) EFRENVICKEY ([id number]) 1960 F Date Time Provider Department 11/07/23 ROCHELLE KONG [id number] During your visit today, we recorded the following information about you: Rochelle Kong 11/07/2023 8:22 AM Signed I am still having difficulty getting a call to go through on Vickey's cell phone, so I reached out to her at home. Vickey was unavailable, and I left a voice message outlining the reason for my call and requesting a call back Allergies As of Date: 11/07/2023 Noted Allergy Reaction ADHESIVE TAPE (ROSINS) 04/15/2018 9 - Itching Comments: Itching and redness Date Reviewed: 10/22/2023 Reviewed by: Kindra Lux Ma, [place] - Fully Assessed Prescriptions as of 11/07/2023 - pantoprazole DR (PROTONIX) 40 mg tablet Take 1 tablet by mouth once daily. - ursodiol (ACTIGALL) 300 mg capsule Take 1 capsule by mouth three times a day. - albuterol HFA (PROVENTIL HFA, VENTOLIN HFA) 90 mcg/actuation inhaler Inhale 2 Puffs as instructed every 4 hours as needed. - hydrOXYchloroQUINE (PLAQUENIL) 200 mg tablet Take 1 tablet by mouth two times a day. - clotrimazole-betamethasone (LOTRISONE) lotion Betamethasone / Clotrimazole Clotrimazole/Betamethasone Dip [Clotrimazole-Betamethasone Lot] 30 ML TP NEEDED PRN For SKIN June 14, 2017 Active 06-14-2017 [facility] ([id number]) - tacrolimus (PROTOPIC) 0.1 % ointment Apply twice daily to affected areas on face - Clobetasol Propionate (TEMOVATE) 0.05 % external solution Apply to affected areas on the scalp twice a day. Dispense 100ml as 30 day supply. - biotin 5,000 mcg ODT Take 1 tablet by mouth once daily. - Calcium-Cholecalciferol, D3, 500 mg-10 mcg (400 unit) per tablet Take 1 tablet by mouth once daily. 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9 [E66.811] 10/04/2023 Encounter Status:Closed by ROCHELLE KONG on 11/07/23 [facility] CNPN Telephone ([id number]) VICKEY SCHWARTZ ([id number]) 1960 F Date Time Provider Department 11/07/23 ROCHELLE KONG [id number] During your visit today, we recorded the following information about you: Rochelle Kong 11/07/2023 12:50 PM Signed I called Vickey after receiving a message from the appointment center that she reached out. Vickey is scheduled to see Dr Garduno virtually on 11/20, and her bronchoscopy with him on 11/21. 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 I provided her with the fax number to the [employer] office in the event this happens. Allergies As of Date: 11/07/2023 Noted Allergy Reaction ADHESIVE TAPE (ROSINS) 04/15/2018 9 - Itching Comments: Itching and redness Date Reviewed: 10/22/2023 Reviewed by: Kindra Lux Ma, [place] - Fully Assessed Prescriptions as of 11/07/2023 - pantoprazole DR (PROTONIX) 40 mg tablet Take 1 tablet by mouth once daily. - ursodiol (ACTIGALL) 300 mg capsule Take 1 capsule by mouth three times a day. - albuterol HFA (PROVENTIL HFA, VENTOLIN HFA) 90 mcg/actuation inhaler Inhale 2 Puffs as instructed every 4 hours as needed. - hydrOXYchloroQUINE (PLAQUENIL) 200 mg tablet Take 1 tablet by mouth two times a day. - clotrimazole-betamethasone (LOTRISONE) lotion Betamethasone / Clotrimazole Clotrimazole/Betamethasone Dip [Clotrimazole-Betamethasone Lot] 30 ML TP NEEDED PRN For SKIN June 14, 2017 Active 06-14-2017 [facility] ([id number]) - tacrolimus (PROTOPIC) 0.1 % ointment Apply twice daily to affected areas on face - Clobetasol Propionate (TEMOVATE) 0.05 % external solution Apply to affected areas on the scalp twice a day. Dispense 100ml as 30 day supply. - biotin 5,000 mcg ODT Take 1 tablet by mouth once daily. - Calcium-Cholecalciferol, D3, 500 mg-10 mcg (400 unit) per tablet Take 1 tablet by mouth once daily. 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9 [E66.811] 10/04/2023 Encounter Status:Closed by ROCHELLE KONG on 11/07/23 [facility] CNPNon 11-01-2023 CNPN Normal [facility] CT CHEST W IVCONon CT CHEST W IVCON * * *Final Report* * * DATE OF EXAM: Oct 23 2023 8:48AM [facility] 0539 - CT CHEST W IVCON / PROCEDURE REASON: Cancer of lower lobe of right lung (HCC) * * * * Physician Interpretation * * * * EXAMINATION: CHEST CT WITH CONTRAST CLINICAL HISTORY: Shortness of breath, lung carcinoma Technique: Spiral CT acquisition of the chest from the thoracic inlet to the upper abdomen following IV contrast. MQ: CTCW_6 Contrast: 100 mL Omnipaque [address] Radiation dose: Integrated Dose-length product (DLP) for this visit = 461.07 mGy*cm CT Dose Reduction Employed: Iterative recon and mAs-kVp adjusted using patient size-age Comparison: Prior CT chest 07/05/2023 RESULT: Limitations: None. Lines, tubes, and devices: None. Lung parenchyma and airways: Emphysematous changes again noted along with scattered regions of parenchymal scar, subpleural honeycombing and areas of bronchiectasis. Soft tissue mass along the posterior superior segment of the right lower lobe is increased in size, currently measuring 26 x 21 x 28 mm in transverse, AP and craniocaudal dimensions respectively, while previously measuring 20 x 16 x 27 mm in these same orientations. Numerous additional small lung nodules are unchanged relative to previous studies including 12/05/2021 Pleural space: No pleural effusion. No pleural thickening. Lower neck, lymph nodes, and mediastinum: There is new right hilar lymphadenopathy, measuring up to 13 mm in short axis on image 121. Additional enlarged right hilar nodes are present. 8 mm right paratracheal node. No axillary lymphadenopathy. Heart, pericardium, and thoracic vessels: The thoracic aorta and main pulmonary artery are normal in caliber. The cardiac chambers are normal in size. No coronary artery atherosclerotic calcifications are noted, although the study is not optimized for coronary assessment. No pericardial effusion or thickening. Bones and soft tissues: No destructive bone lesion. Chest wall is unremarkable. Upper abdomen: No abnormality in the imaged upper abdomen. Localizer images: No additional findings. IMPRESSION: 1. Interval enlargement of the known right lower lobe soft tissue mass. 2. Development of right hilar lymphadenopathy. 3. Otherwise, no significant change. [facility] Transcribe Date/Time: Oct 23 2023 8:57A Dictated by : JHONY BECERRA MD This examination was interpreted and the report reviewed and electronically signed by: JHONY BECERRA MD on Oct 23 2023 9:13AM EST [id number] Normal [facility] CT Chest W contrast Erasmo IMPRESSION: 1. Interval enlargement of the known right lower lobe soft tissue mass. 2. Development of right hilar lymphadenopathy. 3. Otherwise, no significant change. Acute Care Nurse: [facility] Transcribe Date/Time: Oct 23 2023 8:57A Dictated by : JHONY BECERRA MD This examination was interpreted and the report reviewed and electronically signed by: JHONY BECERRA MD on Oct 23 2023 9:13AM EST [employer] [facility] * * *Final Report* * * DATE OF EXAM: Oct 23 2023 8:48AM [facility] 0539 - CT CHEST W IVCON / PROCEDURE REASON: Cancer of lower lobe of right lung (HCC) * * * * Physician Interpretation * * * * EXAMINATION: CHEST CT WITH CONTRAST CLINICAL HISTORY: Shortness of breath, lung carcinoma Technique: Spiral CT acquisition of the chest from the thoracic inlet to the upper abdomen following IV contrast. MQ: CTCW_6 Contrast: 100 mL Omnipaque [address] Radiation dose: Integrated Dose-length product (DLP) for this visit = 461.07 mGy*cm CT Dose Reduction Employed: Iterative recon and mAs-kVp adjusted using patient size-age Comparison: Prior CT chest 07/05/2023 RESULT: Limitations: None. Lines, tubes, and devices: None. Lung parenchyma and airways: Emphysematous changes again noted along with scattered regions of parenchymal scar, subpleural honeycombing and areas of bronchiectasis. Soft tissue mass along the posterior superior segment of the right lower lobe is increased in size, currently measuring 26 x 21 x 28 mm in transverse, AP and craniocaudal dimensions respectively, while previously measuring 20 x 16 x 27 mm in these same orientations. Numerous additional small lung nodules are unchanged relative to previous studies including 12/05/2021 Pleural space: No pleural effusion. No pleural thickening. Lower neck, lymph nodes, and mediastinum: There is new right hilar lymphadenopathy, measuring up to 13 mm in short axis on image 121. Additional enlarged right hilar nodes are present. 8 mm right paratracheal node. No axillary lymphadenopathy. Heart, pericardium, and thoracic vessels: The thoracic aorta and main pulmonary artery are normal in caliber. The cardiac chambers are normal in size. No coronary artery atherosclerotic calcifications are noted, although the study is not optimized for coronary assessment. No pericardial effusion or thickening. Bones and soft tissues: No destructive bone lesion. Chest wall is unremarkable. Upper abdomen: No abnormality in the imaged upper abdomen. Localizer images: No additional findings. [employer] [facility] Provider, [facility] - 10/23/2023 * * *Final Report* * * DATE OF EXAM: Oct 23 2023 8:48AM [facility] 0539 - CT CHEST W IVCON / PROCEDURE REASON: Cancer of lower lobe of right lung (HCC) * * * * Physician Interpretation * * * * EXAMINATION: CHEST CT WITH CONTRAST CLINICAL HISTORY: Shortness of breath, lung carcinoma Technique: Spiral CT acquisition of the chest from the thoracic inlet to the upper abdomen following IV contrast. MQ: CTCW_6 Contrast: 100 mL Omnipaque [address] Radiation dose: Integrated Dose-length product (DLP) for this visit = 461.07 mGy*cm CT Dose Reduction Employed: Iterative recon and mAs-kVp adjusted using patient size-age Comparison: Prior CT chest 07/05/2023 RESULT: Limitations: None. Lines, tubes, and devices: None. Lung parenchyma and airways: Emphysematous changes again noted along with scattered regions of parenchymal scar, subpleural honeycombing and areas of bronchiectasis. Soft tissue mass along the posterior superior segment of the right lower lobe is increased in size, currently measuring 26 x 21 x 28 mm in transverse, AP and craniocaudal dimensions respectively, while previously measuring 20 x 16 x 27 mm in these same orientations. Numerous additional small lung nodules are unchanged relative to previous studies including 12/05/2021 Pleural space: No pleural effusion. No pleural thickening. Lower neck, lymph nodes, and mediastinum: There is new right hilar lymphadenopathy, measuring up to 13 mm in short axis on image 121. Additional enlarged right hilar nodes are present. 8 mm right paratracheal node. No axillary lymphadenopathy. Heart, pericardium, and thoracic vessels: The thoracic aorta and main pulmonary artery are normal in caliber. The cardiac chambers are normal in size. No coronary artery atherosclerotic calcifications are noted, although the study is not optimized for coronary assessment. No pericardial effusion or thickening. Bones and soft tissues: No destructive bone lesion. Chest wall is unremarkable. Upper abdomen: No abnormality in the imaged upper abdomen. Localizer images: No additional findings. IMPRESSION IMPRESSION: 1. Interval enlargement of the known right lower lobe soft tissue mass. 2. Development of right hilar lymphadenopathy. 3. Otherwise, no significant change. [facility] Transcribe Date/Time: Oct 23 2023 8:57A Dictated by : JHONY BECERRA MD This examination was interpreted and the report reviewed and electronically signed by: JHONY BECERRA MD on Oct 23 2023 9:13AM EST [facility] Radiology Study observation (narrative) [facility] CT Chest W contrast IVOrdere d By: [facility]cf Provider on 10-23-2023 [facility] CNOVSPon 10-22-2023 CNOVSP Normal [facility] CREATININE BLDOrdered By: Melissa Felix on 10-22-2023 Creatinine [Mass/Vol] 0.65 mg/dL 0.58 - 0.96 mg/dL [facility] GFR/1.73 sq M.predicted among non-blacks MDRD (S/P/Bld) [Vol rate/Area] 100 mL/min/{1.73_m2} - PINF [facility] Comment on above: Estimated Glomerular Filtration Rate (eGFR) is calculated using the 2020 CKD-EPI creatinine equation. This equation utilizes serum creatinine, sex, and age as parameters. The creatinine assay has traceable calibration to isotope dilution-mass spectrometry. Refer to KDIGO guidelines for clinical interpretation. In patients with unstable renal function, e.g. those with acute kidney injury, the eGFR may not accurately reflect actual GFR. Interpretation and review of laboratory results Normal [facility] CREATININE BLDon 10-22-2023 Creatinine [Mass/Vol] 0.65 mg/dL Normal 0.58-0.96 [facility] Comment on above: Order Comment: Speci men Type: BLOOD SPECIMENOrdering Facility: [facility] Address: [address] [place] [address] Performed By: #### C RET1 ####[facility] [id number] [place] [address] [place] Creatinine and Glomerular filtration rate.predicted panel (S/P/Bld) 100 mL/min/1.73m??? Normal >=60 [facility] Comment on above: Order Comment: Speci men Type: BLOOD SPECIMENOrdering Facility: [facility] Address: [address] [place] [address] Result Comment: Ann mated Glomerular Filtration Rate (eGFR) is calculated using the 2020 CKD-EPI creatinine equation. This equation utilizes serum creatinine, sex, and age as parameters. The creatinine assay has traceable calibration to isotope dilution-mass spectrometry. Refer to KDIGO guidelines for clinical interpretation. In patients with unstable renal function, e.g. those with acute kidney injury, the eGFR may not accurately reflect actual GFR. Performed By: #### C RET1 ####[facility] [id number] [place] [address] [place] CNOVon 10-17-2023 CNOV Normal [facility] CNPNon 10-05-2023 CNPN Normal [facility] CNOVon 10-04-2023 CNOV Normal [facility] CNPNon 09-25-2023 CNPN Normal [facility] MR Brain WO and W contrast I Von 09-21-2023 IMPRESSION: No abnormal intracranial enhancement to indicate intracranial metastasis. Chronic changes and incidental findings as described. Acute Care Nurse: [facility] Transcribe Date/Time: Sep 21 2023 10:52A Dictated by : COLLIN SCHWARTZ MD This examination was interpreted and the report reviewed and electronically signed by: COLLIN SCHWARTZ MD on Sep 21 2023 10:56AM [facility] DIVISION OF RADIOLOGY * * *Final Report* * * DATE OF EXAM: Sep 21 2023 10:33AM [facility] 0295 - MRI BRAIN WO/W IVCON / PROCEDURE REASON: Malignant neoplasm of upper lobe of right lung (HCC) * * * * Physician Interpretation * * * * EXAMINATION: MRI BRAIN WO/W IVCON CLINICAL HISTORY: Malignant neoplasm of upper lobe of right lung (HCC) TECHNIQUE: Routine brain MRI protocol without and with contrast including diffusion images. MQ: MRBWOW_2 Contrast: 18 mL Dotarem IV COMPARISON: None. RESULT: Acute Change: There is no evidence of restricted diffusion to suggest an acute infarct. Hemorrhage: No evidence of prior parenchymal hemorrhage on the gradient echo images. Mass Lesion/ Mass Effect: Left cerebellar DVA is incidentally noted. No evidence of an intracranial mass or extra-axial fluid collection otherwise. No abnormal parenchymal or leptomeningeal enhancement is noted following contrast administration. No significant mass effect. Chronic Change: Scattered punctate foci of increased T2 and FLAIR signal are noted in the supratentorial white matter which is a nonspecific finding, but likely represents minimal chronic microvascular ischemia. Parenchyma: There is mild generalized parenchymal volume loss. The brain parenchyma is otherwise within normal limits of signal intensity and morphology. Ventricles: Ventriculomegaly corresponds to the degree of parenchymal volume loss. Skull Base: Hypothalamic and pituitary region are grossly normal. Craniocervical junction is normal. No significant marrow replacement process. Vasculature: Major intracranial arterial structures, and dural venous sinuses show typical flow void, suggesting patency by spin echo criteria. Other: Minimal mucosal thickening in the left maxillary sinus. Mild to moderate degenerative changes of the right TMJ. The orbits and extracranial soft tissues are unremarkable. DIVISION OF RADIOLOGY Provider, Elliott Garcia Ileana - 09/21/2023 * * *Final Report* * * DATE OF EXAM: Sep 21 2023 10:33AM [facility] 0295 - MRI BRAIN WO/W IVCON / PROCEDURE REASON: Malignant neoplasm of upper lobe of right lung (HCC) * * * * Physician Interpretation * * * * EXAMINATION: MRI BRAIN WO/W IVCON CLINICAL HISTORY: Malignant neoplasm of upper lobe of right lung (HCC) TECHNIQUE: Routine brain MRI protocol without and with contrast including diffusion images. MQ: MRBWOW_2 Contrast: 18 mL Dotarem IV COMPARISON: None. RESULT: Acute Change: There is no evidence of restricted diffusion to suggest an acute infarct. Hemorrhage: No evidence of prior parenchymal hemorrhage on the gradient echo images. Mass Lesion/ Mass Effect: Left cerebellar DVA is incidentally noted. No evidence of an intracranial mass or extra-axial fluid collection otherwise. No abnormal parenchymal or leptomeningeal enhancement is noted following contrast administration. No significant mass effect. Chronic Change: Scattered punctate foci of increased T2 and FLAIR signal are noted in the supratentorial white matter which is a nonspecific finding, but likely represents minimal chronic microvascular ischemia. Parenchyma: There is mild generalized parenchymal volume loss. The brain parenchyma is otherwise within normal limits of signal intensity and morphology. Ventricles: Ventriculomegaly corresponds to the degree of parenchymal volume loss. Skull Base: Hypothalamic and pituitary region are grossly normal. Craniocervical junction is normal. No significant marrow replacement process. Vasculature: Major intracranial arterial structures, and dural venous sinuses show typical flow void, suggesting patency by spin echo criteria. Other: Minimal mucosal thickening in the left maxillary sinus. Mild to moderate degenerative changes of the right TMJ. The orbits and extracranial soft tissues are unremarkable. IMPRESSION IMPRESSION: No abnormal intracranial enhancement to indicate intracranial metastasis. Chronic changes and incidental findings as described. Acute Care Nurse: [facility] Transcribe Date/Time: Sep 21 2023 10:52A Dictated by : COLLIN SCHWARTZ MD This examination was interpreted and the report reviewed and electronically signed by: COLLIN SCHWARTZ MD on Sep 21 2023 10:56AM EST [facility] Radiology Study observation (narrative) [facility] MR Brain WO and W contrast I VOrdered By: [facility]cf Provider on 09-21-2023 [facility] Niya 09-04-2023 CNPN Telephone (MEPRAD) VICKEY SCHWARTZ ([id number]) 1960 F Date Time Provider Department 09/04/23 [place] [facility] During your visit today, we recorded the following information about you: Ny Ross MD 09/04/2023 3:27 PM Signed Spoke with Vickey regarding biopsy performed at [facility]. Positive for adenocarcinoma. She will need an MRI of the brain. Her lung function is adequate for resection. If assume some visceral invasion, this is a clinical stage IIB. She wants to think about where she would have surgery and notify me with a decision. In the meantime I will make arrangements for brain MRI at [facility]. Allergies As of Date: 09/04/2023 Noted Allergy Reaction ADHESIVE TAPE (ROSINS) 04/15/2018 9 - Itching Comments: Itching and redness Date Reviewed: 07/31/2023 Reviewed by: Noelle Prasad RN - Fully Assessed Reason for Visit: Results [95] Cmt: biopsy Prescriptions as of 09/04/2023 - albuterol HFA (PROVENTIL HFA, VENTOLIN HFA) 90 mcg/actuation inhaler Inhale 2 Puffs as instructed every 4 hours as needed. - pantoprazole DR (PROTONIX) 40 mg tablet Take 1 tablet by mouth once daily. - ursodiol (ACTIGALL) 300 mg capsule Take 1 capsule by mouth three times a day. - hydrOXYchloroQUINE (PLAQUENIL) 200 mg tablet Take 1 tablet by mouth two times a day. - clotrimazole-betamethasone (LOTRISONE) lotion Betamethasone / Clotrimazole Clotrimazole/Betamethasone Dip [Clotrimazole-Betamethasone Lot] 30 ML TP NEEDED PRN For SKIN June 14, 2017 Active 06-14-2017 [facility] ([id number]) - tacrolimus (PROTOPIC) 0.1 % ointment Apply twice daily to affected areas on face - Clobetasol Propionate (TEMOVATE) 0.05 % external solution Apply to affected areas on the scalp twice a day. Dispense 100ml as 30 day supply. - biotin 5,000 mcg ODT Take by mouth once daily. - Calcium-Cholecalciferol, D3, 500 mg-10 mcg (400 unit) per tablet Take 1 tablet by mouth once daily. - triamcinolone acetonide (KENALOG) 0.1 % cream Apply to rash on body twice a day M-F, take weekends off Problem List As Of Date 09/04/2023 Noted Resolved HYPERLIPIDEMIA MIXED [E78.2] 07/10/2005 Tobacco use disorder [F17.200] 07/10/2005 06/13/2016 Obesity [E66.9] 12/07/2009 Eczematous dermatitis [L30.9] 12/07/2010 11/03/2022 Contact dermatitis and other eczema, due to uns*12/07/2010 06/13/2016 Xerosis cutis [L85.3] 12/07/2010 06/13/2016 Pruritus [L29.9] 12/07/2010 06/13/2016 Excoriation [T14.8XXA] 12/07/2010 06/13/2016 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] Lung nodule [R91.1] 06/13/2016 Thrombocytopenia (HCC) [D69.6] 06/11/2017 11/03/2022 Melanosis [L81.4] 06/18/2017 Positive SHADI (antinuclear antibody) [R76.8] 06/18/2017 11/03/2022 ESR raised [R70.0] 06/18/2017 11/03/2022 Cutaneous lupus erythematosus [L93.2] 02/18/2018 Traumatic complete tear of left rotator cuff [S*05/16/2018 Milton's esophagus with dysplasia [K22.719] 11/28/2021 Interstitial lung disease (HCC) [J84.9] 09/25/2022 Systemic lupus erythematosus (HCC) [M32.9] 11/03/2022 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] 12/25/2022 Gallbladder polyp [K82.4] 01/09/2023 Encounter Status:Closed by [place] [facility] on 09/04/23 [facility] LUNG DIFFUSION CAPACITY (MELANIE O)on 07-05-2023 DLCO (ml/min/mmHg) 19.90 ml/min/mmHg [facility] DLCO/VA (ml/min/mmHg/L) 4.20 ml/min/mmHg /L [facility] UNW77-29% POST (L/S) 1.63 L[facility] GFT05-39% PRE (L/S) 1.14 L/S [facility] FEV1 PRE (L) 2.12 L [facility] FEV1/FVC POST (%) 63 % [facility] FEV1/FVC PRE (%) 65 % 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 No contraindications or sensitivities were noted. Meds taken: none before testing. Current ATS/ERS acceptability and repeatability standards for spirometry met. Start of test and EOFE criteria met. Current ATS/ERS acceptability and repeatability standards for DLCO met with 2 acceptable maneuvers. 4 puffs Albuterol (360 mcg) delivered by MDI via holding chamber. HR pre = 63/min, HR post = 63 /min. IMPRESSION: Spirometry shows a reduced FEV1/FVC ratio; but individually normal FVC and FEV1 predicted values.This pattern indicates mild obstruction or a normal variant. The increase in FEF 25-75 post-bronchodilator reflects an improvement in the small airway obstruction. The diffusing capacity is normal. Electronically Signed On 07-05-2023 12:00:23 EDT by Ny Ross MD ID: [id number] Name: VICKEY SCHWARTZ Race: Other Ht: 64.50 in Wt: 198.00 lbs Age: 63 Gender: Female : 1960 Dx: Idiopathic interstitial pulmonary disease_ Smoking Hx: Non-smoker Doctor: LINDSEY HIGHTOWER Test Date: 07/05/2023 Site: Tech: Suri Rodriguez PRE-BRONCH POST-BRONCH Pre LLN Pred ULN %Pred Post %Pred %Chg SPIROMETRY FVC (L) 3.28 2.16 2.99 3.84 109 3.71 123 14 FEV1 (L) 2.12 1.69 2.37 3.01 89 2.33 98 8 FEV1/FVC 0.65 0.67 0.80 0.89 81 0.63 78 -2 PEF L/s (L/sec) 5.41 4.51 6.25 7.99 86 5.35 85 -1 FEF50 (L/sec) 1.63 1.72 3.33 4.94 48 2.11 63 29 FIF50 (L/sec) 3.52 3.56 1 FEF50/FIF50 0.46 90-100 0.59 28 FIVC (L) 3.19 3.35 5 MTT02-56 (L/sec) 1.14 1.04 2.09 3.51 54 1.63 77 42 Time (sec) 13.64 15.18 11 FET PEF (sec) 0.08 0.10 26 LETICIA (L) 0.07 0.07 3 Vol Extrap % (%) 2 2 -8 LUNG DIFFUSION DLCOunc (ml/min/mmHg) 19.90 15.42 21.59 27.76 92 VA (L) 4.75 4.04 5.14 6.25 92 DLunc/VA (ml/min/mmHg/L) 4.20 3.07 4.39 5.70 95 BHT (sec) 11.12 IVC (L) 3.09 Comments: Medications and Allergies were reviewed for possible drug interactions per policy. No contraindications or sensitivities were noted. Meds taken: none before testing. Current ATS/ERS acceptability and repeatability standards for spirometry met. Start of test and EOFE criteria met. Current ATS/ERS acceptability and repeatability standards for DLCO met with 2 acceptable maneuvers. 4 puffs Albuterol (360 mcg) delivered by MDI via holding chamber. HR pre = 63/min, HR post = 63 /min. PULMONARY FUNCTION LAB [facility] MR Biliary ducts and Pancrea tic duct WO and W contrast Erasmo 05-17-2024 * * *Final Report* * * DATE OF EXAM: Jun 22 2023 9:10AM [facility] 0730 - MRI PANC/ARMANDO WO/W IVCON / PROCEDURE REASON: Calculus of gallbladder without cholecystitis without obstruction * * * * Physician Interpretation * * * * MRI ABDOMEN WITHOUT AND WITH IV CONTRAST , 3D REFORMATTED IMAGES CLINICAL HISTORY: Nodular gallbladder wall lesion seen on ultrasound 12/26/2022 TECHNIQUE: Magnet: 1.5T scanner. Multiplanar MRI of the abdomen with multiple sequences, including both pre- and post-contrast imaging. Additional MR cholangiopancreatography sequences were performed. Image post-processing {Maximum intensity Projection (MIP)} images were created at an off-line workstation by the interpreting physician or with concurrent physician supervision, with images created, reviewed and archived. Contrast: Intravenous: 18 ml of Dotarem COMPARISON: Ultrasound 12/26/2022, CT abdomen/pelvis 04/10/2017 RESULT: Liver: Normal morphology. Evaluation for signal loss on out of phase images somewhat compromised by artifact. No mass. Biliary: No intrahepatic or extrahepatic bile duct dilation. No biliary filling defect. 0.8 cm mural cystic structure compatible with intramural diverticula/cysts of adenomyomatosis (4:28). This corresponds with finding on prior ultrasound. Spleen: No mass. No splenomegaly. Pancreas: No mass or duct dilation. Adrenals: No mass. Kidneys: No solid or cystic mass. No hydronephrosis. GI: No dilated bowel or wall thickening along imaged segments. Lymph nodes: 2.5 x 1.1 cm periportal node, not significantly changed in size from CT 04/10/2017. Mesentery / Peritoneum / Retroperitoneum: No ascites or mass. Vasculature: The celiac axis and SMA are patent. The portal vein and branches, splenic vein, SMV, and hepatic veins are patent. No aortic aneurysm. Bones/Soft Tissues: No suspicious lesion. Lower chest: Unremarkable. DIVISION OF RADIOLOGY Provider, [facility] - 06/22/2023 * * *Final Report* * * DATE OF EXAM: Jun 22 2023 9:10AM [facility] 0730 - MRI PANC/ARMANDO WO/W IVCON / PROCEDURE REASON: Calculus of gallbladder without cholecystitis without obstruction * * * * Physician Interpretation * * * * MRI ABDOMEN WITHOUT AND WITH IV CONTRAST , 3D REFORMATTED IMAGES CLINICAL HISTORY: Nodular gallbladder wall lesion seen on ultrasound 12/26/2022 TECHNIQUE: Magnet: 1.5T scanner. Multiplanar MRI of the abdomen with multiple sequences, including both pre- and post-contrast imaging. Additional MR cholangiopancreatography sequences were performed. Image post-processing {Maximum intensity Projection (MIP)} images were created at an off-line workstation by the interpreting physician or with concurrent physician supervision, with images created, reviewed and archived. Contrast: Intravenous: 18 ml of Dotarem COMPARISON: Ultrasound 12/26/2022, CT abdomen/pelvis 04/10/2017 RESULT: Liver: Normal morphology. Evaluation for signal loss on out of phase images somewhat compromised by artifact. No mass. Biliary: No intrahepatic or extrahepatic bile duct dilation. No biliary filling defect. 0.8 cm mural cystic structure compatible with intramural diverticula/cysts of adenomyomatosis (4:28). This corresponds with finding on prior ultrasound. Spleen: No mass. No splenomegaly. Pancreas: No mass or duct dilation. Adrenals: No mass. Kidneys: No solid or cystic mass. No hydronephrosis. GI: No dilated bowel or wall thickening along imaged segments. Lymph nodes: 2.5 x 1.1 cm periportal node, not significantly changed in size from CT 04/10/2017. Mesentery / Peritoneum / Retroperitoneum: No ascites or mass. Vasculature: The celiac axis and SMA are patent. The portal vein and branches, splenic vein, SMV, and hepatic veins are patent. No aortic aneurysm. Bones/Soft Tissues: No suspicious lesion. Lower chest: Unremarkable. IMPRESSION IMPRESSION: Focal area of benign cystic adenomyomatosis corresponds with the described gallbladder wall nodular thickening on prior ultrasound. Acute Care Nurse: [facility] Transcribe Date/Time: Jun 22 2023 12:10P Dictated by : BRANDIE CORTEZ MD This examination was interpreted and the report reviewed and electronically signed by: MATILDA PAIGE MD on Jun 22 2023 12:47PM [facility] MR Unspecified body region 3 D post processingon 06-22-2023 * * *Final Report* * * DATE OF EXAM: Jun 22 2023 9:10AM [facility] 0280 - MRI 3D POST PROCESSING / PROCEDURE REASON: Calculus of gallbladder without cholecystitis without obstruction * * * * Physician Interpretation * * * * MRI ABDOMEN WITHOUT AND WITH IV CONTRAST , 3D REFORMATTED IMAGES CLINICAL HISTORY: Nodular gallbladder wall lesion seen on ultrasound 12/26/2022 TECHNIQUE: Magnet: 1.5T scanner. Multiplanar MRI of the abdomen with multiple sequences, including both pre- and post-contrast imaging. Additional MR cholangiopancreatography sequences were performed. Image post-processing {Maximum intensity Projection (MIP)} images were created at an off-line workstation by the interpreting physician or with concurrent physician supervision, with images created, reviewed and archived. Contrast: Intravenous: 18 ml of Dotarem COMPARISON: Ultrasound 12/26/2022, CT abdomen/pelvis 04/10/2017 RESULT: Liver: Normal morphology. Evaluation for signal loss on out of phase images somewhat compromised by artifact. No mass. Biliary: No intrahepatic or extrahepatic bile duct dilation. No biliary filling defect. 0.8 cm mural cystic structure compatible with intramural diverticula/cysts of adenomyomatosis (4:28). This corresponds with finding on prior ultrasound. Spleen: No mass. No splenomegaly. Pancreas: No mass or duct dilation. Adrenals: No mass. Kidneys: No solid or cystic mass. No hydronephrosis. GI: No dilated bowel or wall thickening along imaged segments. Lymph nodes: 2.5 x 1.1 cm periportal node, not significantly changed in size from CT 04/10/2017. Mesentery / Peritoneum / Retroperitoneum: No ascites or mass. Vasculature: The celiac axis and SMA are patent. The portal vein and branches, splenic vein, SMV, and hepatic veins are patent. No aortic aneurysm. Bones/Soft Tissues: No suspicious lesion. Lower chest: Unremarkable. DIVISION OF RADIOLOGY Provider, [facility] - 06/22/2023 * * *Final Report* * * DATE OF EXAM: Jun 22 2023 9:10AM [facility] 0280 - MRI 3D POST PROCESSING / PROCEDURE REASON: Calculus of gallbladder without cholecystitis without obstruction * * * * Physician Interpretation * * * * MRI ABDOMEN WITHOUT AND WITH IV CONTRAST , 3D REFORMATTED IMAGES CLINICAL HISTORY: Nodular gallbladder wall lesion seen on ultrasound 12/26/2022 TECHNIQUE: Magnet: 1.5T scanner. Multiplanar MRI of the abdomen with multiple sequences, including both pre- and post-contrast imaging. Additional MR cholangiopancreatography sequences were performed. Image post-processing {Maximum intensity Projection (MIP)} images were created at an off-line workstation by the interpreting physician or with concurrent physician supervision, with images created, reviewed and archived. Contrast: Intravenous: 18 ml of Dotarem COMPARISON: Ultrasound 12/26/2022, CT abdomen/pelvis 04/10/2017 RESULT: Liver: Normal morphology. Evaluation for signal loss on out of phase images somewhat compromised by artifact. No mass. Biliary: No intrahepatic or extrahepatic bile duct dilation. No biliary filling defect. 0.8 cm mural cystic structure compatible with intramural diverticula/cysts of adenomyomatosis (4:28). This corresponds with finding on prior ultrasound. Spleen: No mass. No splenomegaly. Pancreas: No mass or duct dilation. Adrenals: No mass. Kidneys: No solid or cystic mass. No hydronephrosis. GI: No dilated bowel or wall thickening along imaged segments. Lymph nodes: 2.5 x 1.1 cm periportal node, not significantly changed in size from CT 04/10/2017. Mesentery / Peritoneum / Retroperitoneum: No ascites or mass. Vasculature: The celiac axis and SMA are patent. The portal vein and branches, splenic vein, SMV, and hepatic veins are patent. No aortic aneurysm. Bones/Soft Tissues: No suspicious lesion. Lower chest: Unremarkable. IMPRESSION IMPRESSION: Focal area of benign cystic adenomyomatosis corresponds with the described gallbladder wall nodular thickening on prior ultrasound. [facility] Transcribe Date/Time: Jun 22 2023 12:10P Dictated by : BRANDIE CORTEZ MD This examination was interpreted and the report reviewed and electronically signed by: MATILDA PAIGE MD on Jun 22 2023 12:47PM [facility] No Panel Informationon 06-21 IMPRESSION: Focal area of benign cystic adenomyomatosis corresponds with the described gallbladder wall nodular thickening on prior ultrasound. Acute Care Nurse: [facility] Transcribe Date/Time: Jun 22 2023 12:10P Dictated by : BRANDIE CORTEZ MD This examination was interpreted and the report reviewed and electronically signed by: MATILDA PAIGE MD on Jun 22 2023 12:47PM [facility] DIVISION OF RADIOLOGY Radiology Study observation (narrative) [facility] No Panel InformationOrdered By: [facility]cf Provider on 06-22-2023 [facility] C3 COMPLEMENT [facility] 04-04-19 24 Complement C3 [Mass/Vol] 135 mg/dL 86 - 166 mg/dL [facility] C4 COMPLEMENT Don 04-04-19 24 Complement C4 [Mass/Vol] 23 mg/dL 13 - 46 mg/dL [facility] CBC W Auto Differential pane l (Bld)on 04-04-2023 Basophils (Bld) [#/Vol] 0.06 10*3/uL <0.11 k/uL [facility] Basophils/100 WBC (Bld) 0.8 % [facility] Differential cell count method Nom (Bld) Auto [facility] Eosinophils (Bld) [#/Vol] 0.14 10*3/uL <0.46 k/uL [facility] Eosinophils/100 WBC (Bld) 1.8 % [facility] Erythrocyte distribution width (RBC) [Ratio] 12.2 % 11.5 - 15.0 % [facility] Hematocrit (Bld) [Volume fraction] 43.4 % 36.0 - 46.0 % [facility] Hemoglobin (Bld) [Mass/Vol] 14.7 g/dL 11.5 - 15.5 g/dL [facility] Immature granulocytes (Bld) [#/Vol] <0.10 k/uL [facility] Immature granulocytes/100 WBC (Bld) 0.3 % [facility] Lymphocytes (Bld) [#/Vol] 2.05 10*3/uL 1.00 - 4.00 k/uL [facility] Lymphocytes/100 WBC (Bld) 26.6 % [facility] MCH (RBC) [Entitic mass] 30.9 pg 26.0 - 34.0 pg [facility] MCHC (RBC) [Mass/Vol] 33.9 g/dL 30.5 - 36.0 g/dL [facility] MCV (RBC) [Entitic vol] 91.2 fL 80.0 - 100.0 fL [facility] Monocytes (Bld) [#/Vol] 0.56 10*3/uL <0.87 k/uL [facility] Monocytes/100 WBC (Bld) 7.3 % [facility] Neutrophils (Bld) [#/Vol] 4.88 10*3/uL 1.45 - 7.50 k/uL [facility] Neutrophils/100 WBC (Bld) 63.2 % [facility] Nucleated RBC (Bld) [#/Vol] <0.01 k/uL [facility] Nucleated RBC/100 WBC (Bld) [Ratio] 0.0 /100 WBC [facility] Platelet mean volume (Bld) [Entitic vol] 10.2 fL 9.0 - 12.7 fL [facility] Platelets (Bld) [#/Vol] 219 10*3/uL 150 - 400 k/uL [facility] RBC (Bld) [#/Vol] 4.76 10*6/uL 3.90 - 5.2 0 m/uL [facility] WBC (Bld) [#/Vol] 7.71 10*3/uL 3.70 - 11.00 k/uL [facility] Comprehensive metabolic 2000 panelon 04-04-2023 Albumin [Mass/Vol] 4.4 g/dL 3.9 - 4.9 g/dL [facility] ALP [Catalytic activity/Vol] 127 U/L High 34 - 123 U/L [facility] ALT [Catalytic activity/Vol] 26 U/L 7 - 38 U/L [facility] Anion gap [Moles/Vol] 11 mmol/L 9 - 18 mmol/L [facility] AST [Catalytic activity/Vol] 28 U/L 13 - 35 U/L [facility] Bilirubin [Mass/Vol] 0.5 mg/dL 0.2 - 1 .3 mg/dL [facility] Calcium [Mass/Vol] 10.2 mg/dL 8.5 - 10. 2 mg/dL [facility] Chloride [Moles/Vol] 103 mmol/L 97 - 10 5 mmol/L [facility] CO2 [Moles/Vol] 26 mmol/L 22 - 30 mmol/L [facility] Creatinine [Mass/Vol] 0.61 mg/dL 0.58 - 0.96 mg/dL [facility] Estimated Glomerular Filtration Rate 102 mL/min/1.73m >=60 mL/min/1.73 m [facility] Glucose [Mass/Vol] 85 mg/dL 74 - 99 mg/dL [facility] Potassium [Moles/Vol] 4.1 mmol/L 3.7 - 5.1 mmol/L [facility] Protein [Mass/Vol] 8.0 g/dL 6.3 - 8.0 g/dL [facility] Sodium [Moles/Vol] 140 mmol/L 136 - 144 mmol/L [facility] Urea nitrogen [Mass/Vol] 10 mg/dL 7 - 21 mg/dL [facility] PROTEIN CREATININE RATIOon 0 04-04-2023 Protein/Creatinine (U) [Mass ratio] 0.10 mg/mg <0.15 mg/mg [facility] Protein/Creatinine (U) [Mass ratio]on 04-04-2023 Creatinine (U) [Mass/Vol] 50.5 mg/dL 20.0 - 300.0 mg/dL [facility] Protein (U) [Mass/Vol] 5 mg/dL 0 - 20 mg/dL [facility] Urinalysis complete panel (U )on 04-04-2023 Bacteria LM.HPF (Urine sed) [#/Area] Negative Negative /HPF [facility] Bilirubin Ql (U) Negative Negative [facility] Clarity (Unsp spec) Clear Clear [facility] Color (U) Yellow Yellow [facility] Epithelial cells LM.HPF (Urine sed) [#/Area] None Seen [facility] Glucose Test strip (U) [Mass/Vol] Negative Negative [facility] Hemoglobin Ql (U) Negative Negative [facility] Hyaline casts (Urine sed) [#/Area] 0 /[LPF] 0 /LPF [facility] Ketones Ql (U) Negative Negative [facility] Leukocyte esterase Test strip Ql (U) Trace Abnormal Negative [facility] Nitrite Ql (U) Negative Negative [facility] pH (U) 7.0 [pH] <8.5 [facility] Protein (U) [Mass/Vol] Negative Negative [facility] RBC LM.HPF (Urine sed) [#/Area] 0-2 /HPF 0-2 /HPF [facility] Specific gravity (U) [Rel density] 1.013 1.005 - 1.030 [facility] Urobilinogen Ql (U) 0.2 EU/dL 0.2-1.0 EU/dL [facility] WBC LM.HPF (Urine sed) [#/Area] 0-5 /HPF 0-5 /HPF [facility] FREYA SCREENINGon 12-26-2022 [facility] No Panel Informationon 12-26 Radiology Result ACTIONABLE Abnormal [facility] C3 COMPLEMENT BLDon 08-28-20 23 Complement C3 [Mass/Vol] 130 mg/dL 86 - 166 mg/dL [facility] C4 COMPLEMENT BLDon 10-03-19 Complement C4 [Mass/Vol] 23 mg/dL 13 - 46 mg/dL [facility] CBC W Auto Differential pane l (Bld)on 10-02-2022 Basophils (Bld) [#/Vol] 0.07 10*3/uL <0.11 k/uL [facility] Basophils/100 WBC (Bld) 0.6 % [facility] Differential cell count method Nom (Bld) Auto [facility] Eosinophils (Bld) [#/Vol] 0.20 10*3/uL <0.46 k/uL [facility] Eosinophils/100 WBC (Bld) 1.7 % [facility] Erythrocyte distribution width (RBC) [Ratio] 12.4 % 11.5 - 15.0 % [facility] Hematocrit (Bld) [Volume fraction] 43.2 % 36.0 - 46.0 % [facility] Hemoglobin (Bld) [Mass/Vol] 14.7 g/dL 11.5 - 15.5 g/dL [facility] Immature granulocytes (Bld) [#/Vol] 0.09 10*3/uL <0.10 k/uL [facility] Immature granulocytes/100 WBC (Bld) 0.8 % [facility] Lymphocytes (Bld) [#/Vol] 2.97 10*3/uL 1.00 - 4.00 k/uL [facility] Lymphocytes/100 WBC (Bld) 25.6 % [facility] MCH (RBC) [Entitic mass] 31.7 pg 26.0 - 34.0 pg [facility] MCHC (RBC) [Mass/Vol] 34.0 g/dL 30.5 - 36.0 g/dL [facility] MCV (RBC) [Entitic vol] 93.3 fL 80.0 - 100.0 fL [facility] Monocytes (Bld) [#/Vol] 0.92 10*3/uL High <0.87 k/uL [facility] Monocytes/100 WBC (Bld) 7.9 % [facility] Neutrophils (Bld) [#/Vol] 7.34 10*3/uL 1.45 - 7.50 k/uL [facility] Neutrophils/100 WBC (Bld) 63.4 % [facility] Nucleated RBC (Bld) [#/Vol] <0.01 k/uL [facility] Nucleated RBC/100 WBC (Bld) [Ratio] 0.0 /100 WBC [facility] Platelet mean volume (Bld) [Entitic vol] 10.5 fL 9.0 - 12.7 fL [facility] Platelets (Bld) [#/Vol] 273 10*3/uL 150 - 400 k/uL [facility] RBC (Bld) [#/Vol] 4.63 10*6/uL 3.90 - 5.2 0 m/uL [facility] WBC (Bld) [#/Vol] 11.59 10*3/uL High 3.70 - 11.00 k/uL [facility] PROTEIN CREATININE RATIOon 0 10-02-2022 Protein/Creatinine (U) [Mass ratio] 0.06 mg/mg <0.15 mg/mg [facility] Protein/Creatinine (U) [Mass ratio]on 10-02-2022 Creatinine (U) [Mass/Vol] 79.0 mg/dL 20.0 - 300.0 mg/dL [facility] Protein (U) [Mass/Vol] 5 mg/dL 0 - 20 mg/dL [facility] XR Knee - right 4 Viewson IMPRESSION: No acute fracture or dislocation right knee.. [facility] Transcribe Date/Time: Sep 28 2022 3:34P Dictated by : SUSIE CASTRO MD This examination was interpreted and the report reviewed and electronically signed by: SUSIE CASTRO MD on Sep 28 2022 3:36PM [facility] DIVISION OF RADIOLOGY * * *Final Report* * * DATE OF EXAM: Sep 25 2022 6:35PM WOX 5203 - XR KNEE 4V AP/PA BOTH+LAT/FANNIE RT / PROCEDURE REASON: Acute pain of right knee * * * * Physician Interpretation * * * * EXAM(s): XR KNEE 4V AP/PA BOTH+LAT/FANNIE RT EXAM DATE/TIME: 09/25/2022 6:35 PM HISTORY: 62 years old Clinical information: Acute pain of right knee turned in bed Saturday night and had allot of pain anterior to lateral side of right knee no inj TECHNIQUE: Images: XR KNEE 4V AP/PA BOTH+LAT/FANNIE RT Comparison: None. RESULT: Findings: Bone density appears well-preserved. No fractures or dislocations are seen. Spurring of the tibial spines. DIVISION OF RADIOLOGY Provider, Elliott Tejeda - 09/28/2022 * * *Final Report* * * DATE OF EXAM: Sep 25 2022 6:35PM WOX 5203 - XR KNEE 4V AP/PA BOTH+LAT/FANNIE RT / PROCEDURE REASON: Acute pain of right knee * * * * Physician Interpretation * * * * EXAM(s): XR KNEE 4V AP/PA BOTH+LAT/FANNIE RT EXAM DATE/TIME: 09/25/2022 6:35 PM HISTORY: 62 years old Clinical information: Acute pain of right knee turned in bed day night and had allot of pain anterior to lateral side of right knee no inj TECHNIQUE: Images: XR KNEE 4V AP/PA BOTH+LAT/FANNIE RT Comparison: None. RESULT: Findings: Bone density appears well-preserved. No fractures or dislocations are seen. Spurring of the tibial spines. IMPRESSION IMPRESSION: No acute fracture or dislocation right knee.. Acute Care Nurse: [employer] Transcribe Date/Time: Sep 28 2022 3:34P Dictated by : SUSIE CASTRO MD This examination was interpreted and the report reviewed and electronically signed by: SUSIE CASTRO MD on Sep 28 2022 3:36PM EST [facility] XR Knee - right 4 ViewsOrder ed By: [facility]cf Provider on 09-28-2022 [facility] XR Knee - right 4 Viewson Radiology Study observation (narrative) [facility] DXA-AXIAL SKELETONon 023 [facility] Influenza virus A and B RNA and SARS-CoV-2 (COVID-19) N gene panel DESIREE+probe (Resp)on 01-31-2022 FLUAV RNA DESIREE+probe Ql (Unsp spec) Negative Negative for Influenza A by RT-PCR [facility] FLUBV RNA DESIREE+probe Ql (Unsp spec) Negative Negative for Influenza B by RT-PCR [facility] SARS-CoV-2 (COVID-19) RNA DESIREE+probe Ql (Resp) SARS-CoV-2 (Agent of COVID-19) Detected by RT-PCR or equivalent method. Abnormal Not Detected [facility] CT CHEST WO IVCONon 12-06-19 [facility] CBC W Auto Differential pane l (Bld)on 11-14-2021 Abs Immature Gran <0.10 k/uL [facility] Basophils (Bld) [#/Vol] 0.07 10*3/uL <0.11 k/uL [facility] Basophils/100 WBC (Bld) 0.9 % [facility] Differential cell count method Nom (Bld) Auto [facility] Eosinophils (Bld) [#/Vol] 0.13 10*3/uL <0.46 k/uL [facility] Eosinophils/100 WBC (Bld) 1.8 % [facility] Erythrocyte distribution width (RBC) [Ratio] 12.3 % 11.5 - 15.0 % [facility] Hematocrit (Bld) [Volume fraction] 43.0 % 36.0 - 46.0 % [facility] Hemoglobin (Bld) [Mass/Vol] 14.6 g/dL 11.5 - 15.5 g/dL [facility] Immature Gran % 0.3 % [facility] Lymphocytes (Bld) [#/Vol] 2.20 10*3/uL 1.00 - 4.00 k/uL [facility] Lymphocytes/100 WBC (Bld) 29.7 % [facility] MCH (RBC) [Entitic mass] 30.7 pg 26.0 - 34.0 pg [facility] MCHC (RBC) [Mass/Vol] 34.0 g/dL 30.5 - 36.0 g/dL [facility] MCV (RBC) [Entitic vol] 90.3 fL 80.0 - 100.0 fL [facility] Monocytes (Bld) [#/Vol] 0.61 10*3/uL <0.87 k/uL [facility] Monocytes/100 WBC (Bld) 8.2 % [facility] Neutrophils (Bld) [#/Vol] 4.38 10*3/uL 1.45 - 7.50 k/uL [facility] Neutrophils/100 WBC (Bld) 59.1 % [facility] Nucleated RBC (Bld) [#/Vol] <0.01 k/uL [facility] Nucleated RBC/100 WBC (Bld) [Ratio] 0.0 /100 WBC [facility] Platelet mean volume (Bld) [Entitic vol] 10.7 fL 9.0 - 12.7 fL [facility] Platelets (Bld) [#/Vol] 206 10*3/uL 150 - 400 k/uL [facility] RBC (Bld) [#/Vol] 4.76 10*6/uL 3.90 - 5.2 0 m/uL [facility] WBC (Bld) [#/Vol] 7.41 10*3/uL 3.70 - 11.00 k/uL [facility] Vital Signs Date Time Vital Sign Value Performing Clinician Brea rizvi 09-15-2024 10:13-0400 Diastolic blood pressure 57 mm[Hg] Boaz Pineda DO Work Phone: [facility] 09-15-2024 10:130400 Heart rate 66 /min Boaz Pineda DO Work Phone: [facility] 09-15-2024 10:13-0400 Systolic blood pressure 104 mm[Hg] Boaz Pineda DO Work Phone: [facility] 09-15-2024 09:16-0400 Body height 162.6 cm Boaz Pineda DO Work Phone: [facility] 09-15-2024 09:16-0400 Body mass index (BMI) [Ratio] 31.26 kg/m2 Boaz Pineda DO Work Phone: [facility] 09-15-2024 09:16-0400 Body weight 82.6 kg Boaz Pineda DO Work Phone: [facility] 09-03-2024 09:17-0400 Body mass index (BMI) [Ratio] 31.17 kg/m2 Elizabeth Click [employer]ILRO[employer] MAINTENANCE CLERK.DIRECTOR OF PURCHASING Work Phone: [facility] 09-03-2024 09:17-0400 Body weight 82.37 kg Elizabeth Click [employer]ILRO[employer] MAINTENANCE CLERK.DIRECTOR OF PURCHASING Work Phone: [facility] 09-03-2024 09:17-0400 Diastolic blood pressure 63 mm[Hg] Elizabeth Click RAILROAD MAINTENANCE CLERK.DIRECTOR OF PURCHASING Work Phone: [facility] 09-03-2024 09:17-0400 Heart rate 80 /min Elizabeth Click RAILRO[employer] MAINTENANCE CLERK.DIRECTOR OF PURCHASING Work Phone: [facility] 09-03-2024 09:17-0400 SaO2% (BldA) [Mass fraction] 97 % Elizabeth Click [employer]ILRO[employer] MAINTENANCE CLERK.DIRECTOR OF PURCHASING Work Phone: [facility] 09-03-2024 09:17-0400 Systolic blood pressure 96 mm[Hg] Elizabeth Click RAILROAD MAINTENANCE CLERK.DIRECTOR OF PURCHASING Work Phone: [facility] 08-22-2024 13:52-0400 Body temperature 97.3 [degF] Treatment Wstr Work Phone: [facility] 08-22-2024 13:52-0400 Diastolic blood pressure 73 mm[Hg] Treatment Wstr Work Phone: [facility] 08-22-2024 13:52-0400 Heart rate 86 /min Treatment Wstr Work Phone: [facility] 08-22-2024 13:52-0400 Respiratory rate 16 /min Treatment Wstr Work Phone: [facility] 08-22-2024 13:52-0400 SaO2% (BldA) [Mass fraction] 97 % Treatment Wstr Work Phone: [facility] 08-22-2024 13:52-0400 Systolic blood pressure 108 mm[Hg] Treatment Wstr Work Phone: [facility] 08-21-2024 09:16-0400 Body mass index (BMI) [Ratio] 31.07 kg/m2 Kris Esteban RAILROAD MAINTENANCE CLERK.DIRECTOR OF PURCHASING Work Phone: [facility] 08-21-2024 09:16-0400 Body temperature 98.2 [degF] Kris Esteban RAILROAD MAINTENANCE CLERK.DIRECTOR OF PURCHASING Work Phone: [facility] 08-21-2024 09:16-0400 Body weight 82.1 kg Kris Esteban RAILROAD MAINTENANCE CLERK.DIRECTOR OF PURCHASING Work Phone: [facility] 08-21-2024 09:16-0400 Diastolic blood pressure 70 mm[Hg] Kris Esteban RAILROAD MAINTENANCE CLERK.DIRECTOR OF PURCHASING Work Phone: [facility] 08-21-2024 09:16-0400 Heart rate 77 /min Kris Esteban RAILROAD MAINTENANCE CLERK.DIRECTOR OF PURCHASING Work Phone: [facility] 08-21-2024 09:16-0400 SaO2% (BldA) [Mass fraction] 97 % Kris Esteban RAILROAD MAINTENANCE CLERK.DIRECTOR OF PURCHASING Work Phone: [facility] 08-21-2024 09:16-0400 Systolic blood pressure 106 mm[Hg] Kris Esteban RAILROAD MAINTENANCE CLERK.DIRECTOR OF PURCHASING Work Phone: [facility] 08-11-2024 09:24-0400 Body mass index (BMI) [Ratio] 30.55 kg/m2 Sidra Suppan RAILROAD MAINTENANCE CLERK.DIRECTOR OF PURCHASING Work Phone: [facility] 08-11-2024 09:24-0400 Body weight 80.74 kg Sidra Suppan RAILROAD MAINTENANCE CLERK.DIRECTOR OF PURCHASING Work Phone: [facility] 08-11-2024 09:24-0400 Diastolic blood pressure 62 mm[Hg] Sidra Suppan RAILROAD MAINTENANCE CLERK.DIRECTOR OF PURCHASING Work Phone: [facility] 08-11-2024 09:24-0400 Heart rate 83 /min Sidra Suppan RAILRO[employer] MAINTENANCE CLERK.DIRECTOR OF PURCHASING Work Phone: [facility] 08-11-2024 09:24-0400 SaO2% (BldA) [Mass fraction] 97 % Sidra Suppan RAILRO[employer] MAINTENANCE CLERK.DIRECTOR OF PURCHASING Work Phone: [facility] 08-11-2024 09:24-0400 Systolic blood pressure 94 mm[Hg] Sidra Suppan RAILROAD MAINTENANCE CLERK.DIRECTOR OF PURCHASING Work Phone: [facility] 08-01-2024 13:38-0400 Body temperature 97.81 [degF] Treatment Wstr Work Phone: [facility] 08-01-2024 13:38-0400 Diastolic blood pressure 69 mm[Hg] Treatment Wstr Work Phone: [facility] 08-01-2024 13:38-0400 Heart rate 80 /min Treatment Wstr Work Phone: [facility] 08-01-2024 13:38-0400 SaO2% (BldA) [Mass fraction] 98 % Treatment Wstr Work Phone: [facility] 08-01-2024 13:38-0400 Systolic blood pressure 107 mm[Hg] Treatment Wstr Work Phone: [facility] 07-30-2024 09:39-0400 Body mass index (BMI) [Ratio] 30.81 kg/m2 Alf Vanessai DO Work Phone: [facility] 07-30-2024 09:39-0400 Body temperature 98.49 [degF] Alf Vanessai DO Work Phone: [facility] 07-30-2024 09:39-0400 Body weight 81.42 kg Alf Masci DO Work Phone: [facility] 07-30-2024 09:39-0400 Diastolic blood pressure 70 mm[Hg] Alf Vanessai DO Work Phone: [facility] 07-30-2024 09:39-0400 Heart rate 75 /min Alf Vanessai DO Work Phone: [facility] 07-30-2024 09:39-0400 SaO2% (BldA) [Mass fraction] 97 % Alf Vanessai DO Work Phone: [facility] 07-30-2024 09:39-0400 Systolic blood pressure 102 mm[Hg] Alf Masci DO Work Phone: [facility] 07-11-2024 14:44-0400 Body temperature 96.8 [degF] Treatment Wstr Work Phone: [facility] 07-11-2024 14:44-0400 Diastolic blood pressure 55 mm[Hg] Treatment Wstr Work Phone: [facility] 07-11-2024 14:44-0400 Heart rate 80 /min Treatment Wstr Work Phone: [facility] 07-11-2024 14:44-0400 SaO2% (BldA) [Mass fraction] 97 % Treatment Wstr Work Phone: [facility] 07-11-2024 14:44-0400 Systolic blood pressure 108 mm[Hg] Treatment Wstr Work Phone: [facility] 07-10-2024 09:58-0400 Body mass index (BMI) [Ratio] 30.61 kg/m2 Kris Esteban RAILRO[employer] MAINTENANCE CLERK.DIRECTOR OF PURCHASING Work Phone: [facility] 07-10-2024 09:58-0400 Body temperature 98.2 [degF] Kris Esteban RAILROAD MAINTENANCE CLERK.DIRECTOR OF PURCHASING Work Phone: [facility] 07-10-2024 09:58-0400 Body weight 80.9 kg Kris Esteban RAILROAD MAINTENANCE CLERK.DIRECTOR OF PURCHASING Work Phone: [facility] 07-10-2024 09:58-0400 Diastolic blood pressure 76 mm[Hg] Kris Esteban RAILROAD MAINTENANCE CLERK.DIRECTOR OF PURCHASING Work Phone: [facility] 07-10-2024 09:58-0400 Heart rate 73 /min Kris Esteban RAILROAD MAINTENANCE CLERK.DIRECTOR OF PURCHASING Work Phone: [facility] 07-10-2024 09:58-0400 SaO2% (BldA) [Mass fraction] 97 % Kris Esteban RAILROAD MAINTENANCE CLERK.DIRECTOR OF PURCHASING Work Phone: [facility] 07-10-2024 09:58-0400 Systolic blood pressure 107 mm[Hg] Kris Esteban RAILROAD MAINTENANCE CLERK.DIRECTOR OF PURCHASING Work Phone: [facility] 06-20-2024 14:00-0400 Body temperature 97.7 [degF] Treatment Wstr Work Phone: [facility] 06-20-2024 14:00-0400 Diastolic blood pressure 71 mm[Hg] Treatment Wstr Work Phone: [facility] 06-20-2024 14:00-0400 Heart rate 61 /min Treatment Wstr Work Phone: [facility] 06-20-2024 14:00-0400 Systolic blood pressure 107 mm[Hg] Treatment Wstr Work Phone: [facility] 06-19-2024 08:33-0400 Body mass index (BMI) [Ratio] 31.24 kg/m2 Alf Masci DO Work Phone: [facility] 06-19-2024 08:33-0400 Body temperature 99 [degF] Alf Masci DO Work Phone: [facility] 06-19-2024 08:33-0400 Body weight 82.56 kg Alf Masci DO Work Phone: [facility] 06-19-2024 08:33-0400 Diastolic blood pressure 67 mm[Hg] Alf Masci DO Work Phone: [facility] 06-19-2024 08:33-0400 Heart rate 79 /min Alf Masci DO Work Phone: [facility] 06-19-2024 08:33-0400 Respiratory rate 12 /min Alf Masci DO Work Phone: [facility] 06-19-2024 08:33-0400 SaO2% (BldA) [Mass fraction] 97 % Alf Vanessai DO Work Phone: [facility] 06-19-2024 08:33-0400 Systolic blood pressure 95 mm[Hg] Alf Mendezi DO Work Phone: [facility] 06-18-2024 10:46-0400 Body height 162.6 cm Allen Valdes MD Work Phone: [facility] 06-18-2024 10:46-0400 Body mass index (BMI) [Ratio] 30.97 kg/m2 Allen Valdes MD Work Phone: [facility] 06-18-2024 10:46-0400 Body temperature 98.6 [degF] Allen Valdes MD Work Phone: [facility] 06-18-2024 10:46-0400 Body weight 81.83 kg Allen Valdes MD Work Phone: [facility] 06-18-2024 10:46-0400 Diastolic blood pressure 58 mm[Hg] Allen Valdes MD Work Phone: [facility] 06-18-2024 10:46-0400 Heart rate 73 /min Allen Valdes MD Work Phone: [facility] 06-18-2024 10:46-0400 SaO2% (BldA) [Mass fraction] 98 % Allen Valdes MD Work Phone: [facility] 06-18-2024 10:46-0400 Systolic blood pressure 106 mm[Hg] Allen Valdes MD Work Phone: [facility] 06-04-2024 08:59-0400 Diastolic blood pressure 68 mm[Hg] Jennifer Haagen RAILROAD MAINTENANCE CLERK.DIRECTOR OF PURCHASING Work Phone: [facility] 06-04-2024 08:59-0400 Heart rate 81 /min Jennifer Haagen RAILROAD MAINTENANCE CLERK.DIRECTOR OF PURCHASING Work Phone: [facility] 06-04-2024 08:59-0400 Respiratory rate 16 /min Jennifer Haagen RAILROAD MAINTENANCE CLERK.DIRECTOR OF PURCHASING Work Phone: [facility] 06-04-2024 08:59-0400 SaO2% (BldA) [Mass fraction] 97 % Jennifer Haagen RAILROAD MAINTENANCE CLERK.DIRECTOR OF PURCHASING Work Phone: [facility] 06-04-2024 08:59-0400 Systolic blood pressure 100 mm[Hg] Jennifer Haagen RAILROAD MAINTENANCE CLERK.DIRECTOR OF PURCHASING Work Phone: [facility] 05-21-2024 09:55-0400 Body mass index (BMI) [Ratio] 31.67 kg/m2 Alf Mendezi DO Work Phone: [facility] 05-21-2024 09:55-0400 Body temperature 98.6 [degF] Alf Mendezi DO Work Phone: [facility] 05-21-2024 09:55-0400 Body weight 83.69 kg Alf Mendezi DO Work Phone: [facility] 05-21-2024 09:55-0400 Diastolic blood pressure 72 mm[Hg] Alf Mendezi DO Work Phone: [facility] 05-21-2024 09:55-0400 Heart rate 61 /min Alf Castle DO Work Phone: [facility] 05-21-2024 09:55-0400 SaO2% (BldA) [Mass fraction] 99 % Alf Castle DO Work Phone: [facility] 05-21-2024 09:55-0400 Systolic blood pressure 118 mm[Hg] Alf Castle DO Work Phone: [facility] 05-09-2024 15:52-0400 Body height 162.6 cm Tessie Kaufman APRN.DIRECTOR OF PURCHASING Work Phone: [facility] 05-09-2024 15:52-0400 Body mass index (BMI) [Ratio] 32.44 kg/m2 Tessie Kaufman APRN.DIRECTOR OF PURCHASING Work Phone: [facility] 05-09-2024 15:52-0400 Body temperature 98.29 [degF] Tessie Kaufman APRN.DIRECTOR OF PURCHASING Work Phone: [facility] 05-09-2024 15:52-0400 Body weight 85.73 kg Tessie Kaufman APRN.DIRECTOR OF PURCHASING Work Phone: [facility] 05-09-2024 15:52-0400 Diastolic blood pressure 44 mm[Hg] Tessie Kaufman APRN.DIRECTOR OF PURCHASING Work Phone: [facility] 05-09-2024 15:52-0400 Heart rate 84 /min Tessie Kaufman APRN.DIRECTOR OF PURCHASING Work Phone: [facility] 05-09-2024 15:52-0400 Respiratory rate 19 /min Tessie Kaufman APRN.DIRECTOR OF PURCHASING Work Phone: [facility] 05-09-2024 15:52-0400 SaO2% (BldA) [Mass fraction] 95 % Tessie Kaufman APRN.DIRECTOR OF PURCHASING Work Phone: [facility] 05-09-2024 15:52-0400 Systolic blood pressure 114 mm[Hg] Tessie Kaufman APRN.DIRECTOR OF PURCHASING Work Phone: [facility] 04-28-2024 09:51-0400 Body temperature 98.1 [degF] Treatment Wstr Work Phone: [facility] 04-28-2024 09:51-0400 Diastolic blood pressure 77 mm[Hg] Treatment Wstr Work Phone: [facility] 04-28-2024 09:51-0400 Heart rate 96 /min Treatment Wstr Work Phone: [facility] 04-28-2024 09:51-0400 SaO2% (BldA) [Mass fraction] 97 % Treatment Wstr Work Phone: [facility] 04-28-2024 09:51-0400 Systolic blood pressure 117 mm[Hg] Treatment Wstr Work Phone: [facility] 04-11-2024 09:15-0500 Body mass index (BMI) [Ratio] 32.61 kg/m2 Alf Masci DO Work Phone: [facility] 04-11-2024 09:15-0500 Body temperature 98.2 [degF] Alf Masci DO Work Phone: [facility] 04-11-2024 09:15-0500 Body weight 86.18 kg Alf Masci DO Work Phone: [facility] 04-11-2024 09:15-0500 Diastolic blood pressure 82 mm[Hg] Alf Masci DO Work Phone: [facility] 04-11-2024 09:15-0500 Heart rate 78 /min Alf Masci DO Work Phone: [facility] 04-11-2024 09:15-0500 SaO2% (BldA) [Mass fraction] 100 % Alf Masci DO Work Phone: [facility] 04-11-2024 09:15-0500 Systolic blood pressure 119 mm[Hg] Alf Masci DO Work Phone: [facility] 04-10-2024 09:31-0500 Body mass index (BMI) [Ratio] 32.61 kg/m2 Sidra Hurley APRN.DIRECTOR OF PURCHASING Work Phone: [facility] 04-10-2024 09:31-0500 Body temperature 98.01 [degF] Sidra Suppan RAILROAD MAINTENANCE CLERK.DIRECTOR OF PURCHASING Work Phone: [facility] 04-10-2024 09:31-0500 Body weight 86.18 kg Sidra Suppan RAILROAD MAINTENANCE CLERK.DIRECTOR OF PURCHASING Work Phone: [facility] 04-10-2024 09:31-0500 Diastolic blood pressure 62 mm[Hg] Sidra Suppan RAILROAD MAINTENANCE CLERK.DIRECTOR OF PURCHASING Work Phone: [facility] 04-10-2024 09:31-0500 Heart rate 99 /min Sidra Suppan RAILROAD MAINTENANCE CLERK.DIRECTOR OF PURCHASING Work Phone: [facility] 04-10-2024 09:31-0500 SaO2% (BldA) [Mass fraction] 98 % Sidra Suppan RAILROAD MAINTENANCE CLERK.DIRECTOR OF PURCHASING Work Phone: [facility] 04-10-2024 09:31-0500 Systolic blood pressure 110 mm[Hg] Sidra Suppan RAILROAD MAINTENANCE CLERK.DIRECTOR OF PURCHASING Work Phone: [facility] 03-25-2024 10:46-0500 Body temperature 97.3 [degF] Treatment Wstr Work Phone: [facility] 03-25-2024 10:46-0500 Diastolic blood pressure 80 mm[Hg] Treatment Wstr Work Phone: [facility] 03-25-2024 10:46-0500 Heart rate 67 /min Treatment Wstr Work Phone: [facility] 03-25-2024 10:46-0500 SaO2% (BldA) [Mass fraction] 98 % Treatment Wstr Work Phone: [facility] 03-25-2024 10:46-0500 Systolic blood pressure 124 mm[Hg] Treatment Wstr Work Phone: [facility] 03-21-2024 09:03-0500 Body mass index (BMI) [Ratio] 33.56 kg/m2 Alf Castle DO Work Phone: [facility] 03-21-2024 09:03-0500 Body temperature 97.11 [degF] Alf Mendezi DO Work Phone: [facility] 03-21-2024 09:03-0500 Body weight 88.68 kg Alf Mendezi DO Work Phone: [facility] 03-21-2024 09:03-0500 Diastolic blood pressure 83 mm[Hg] Alf Mendezi DO Work Phone: [facility] 03-21-2024 09:03-0500 Heart rate 87 /min Alf Mendezi DO Work Phone: [facility] 03-21-2024 09:03-0500 SaO2% (BldA) [Mass fraction] 99 % Alf Mendezi DO Work Phone: [facility] 03-21-2024 09:03-0500 Systolic blood pressure 129 mm[Hg] Alf Mendezi DO Work Phone: [facility] 03-18-2024 13:06-0500 Body height 162.6 cm Pacc 5 Work Phone: [facility] 03-18-2024 13:06-0500 Body mass index (BMI) [Ratio] 33.38 kg/m2 Pacc 5 Work Phone: [facility] 03-18-2024 13:06-0500 Body temperature 97.3 [degF] Pacc 5 Work Phone: [facility] 03-18-2024 13:06-0500 Body weight 88.2 kg Pacc 5 Work Phone: [facility] 03-18-2024 13:06-0500 Diastolic blood pressure 76 mm[Hg] Pacc 5 Work Phone: [facility] 03-18-2024 13:06-0500 Heart rate 75 /min Pacc 5 Work Phone: [facility] 03-18-2024 13:06-0500 SaO2% (BldA) [Mass fraction] 98 % Pacc 5 Work Phone: [facility] 03-18-2024 13:06-0500 Systolic blood pressure 129 mm[Hg] Pacc 5 Work Phone: [facility] 03-18-2024 11:55-0500 Body height 162.6 cm Janett Feliciano MD, PhD Work Phone: [facility] 03-18-2024 11:55-0500 Body mass index (BMI) [Ratio] 33.07 kg/m2 Janett Feliciano MD, PhD Work Phone: [facility] 03-18-2024 11:55-0500 Body temperature 98.71 [degF] Janett Feliciano MD, PhD Work Phone: [facility] 03-18-2024 11:55-0500 Body weight 87.38 kg Janett Feliciano MD, PhD Work Phone: [facility] 03-18-2024 11:55-0500 Diastolic blood pressure 53 mm[Hg] Janett Feliciano MD, PhD Work Phone: [facility] 03-18-2024 11:55-0500 Heart rate 70 /min Janett Feliciano MD, PhD Work Phone: [facility] 03-18-2024 11:55-0500 Respiratory rate 18 /min Janett Feliciano MD, PhD Work Phone: [facility] 03-18-2024 11:55-0500 SaO2% (BldA) [Mass fraction] 98 % Janett Feliciano MD, PhD Work Phone: [facility] 03-18-2024 11:55-0500 Systolic blood pressure 112 mm[Hg] Janett Feliciano MD, PhD Work Phone: [facility] 03-12-2024 13:55-0500 Body height 162.6 cm Palomo Lal MD Work Phone: [facility] 03-12-2024 13:55-0500 Body mass index (BMI) [Ratio] 33.26 kg/m2 Palomo Lal MD Work Phone: [facility] 03-12-2024 13:55-0500 Body temperature 97.3 [degF] Palomo Lal MD Work Phone: [facility] 03-12-2024 13:55-0500 Body weight 87.9 kg Palomo Lal MD Work Phone: [facility] 03-12-2024 13:55-0500 Diastolic blood pressure 55 mm[Hg] Palomo Lal MD Work Phone: [facility] 03-12-2024 13:55-0500 Heart rate 79 /min Palomo Lal MD Work Phone: [facility] 03-12-2024 13:55-0500 Respiratory rate 16 /min Palomo Lal MD Work Phone: [facility] 03-12-2024 13:55-0500 SaO2% (BldA) [Mass fraction] 98 % Palomo Lal MD Work Phone: [facility] 03-12-2024 13:55-0500 Systolic blood pressure 117 mm[Hg] Palomo Lal MD Work Phone: [facility] 03-10-2024 10:51-0500 Body height 163.3 cm Boaz Pineda DO Work Phone: [facility] 03-10-2024 10:51-0500 Body mass index (BMI) [Ratio] 32.65 kg/m2 Boaz Pineda DO Work Phone: [facility] 03-10-2024 10:51-0500 Body temperature 97.5 [degF] Boaz Pineda DO Work Phone: [facility] 03-10-2024 10:51-0500 Body weight 87.1 kg Boaz Pineda DO Work Phone: [facility] 03-10-2024 10:51-0500 Diastolic blood pressure 71 mm[Hg] Boaz Pineda DO Work Phone: [facility] 03-10-2024 10:51-0500 Heart rate 90 /min Boaz Pineda DO Work Phone: [facility] 03-10-2024 10:51-0500 Systolic blood pressure 127 mm[Hg] Boaz Pineda DO Work Phone: [facility] 03-06-2024 15:22-0500 Body height 163.3 cm Tessie Kaufman APRN.DIRECTOR OF PURCHASING Work Phone: [facility] 03-06-2024 15:22-0500 Body mass index (BMI) [Ratio] 32.82 kg/m2 Tessie Kaufman APRN.DIRECTOR OF PURCHASING Work Phone: [facility] 03-06-2024 15:22-0500 Body temperature 98.2 [degF] Tessie Kaufman APRN.DIRECTOR OF PURCHASING Work Phone: [facility] 03-06-2024 15:22-0500 Body weight 87.54 kg Tessie Kaufman APRN.DIRECTOR OF PURCHASING Work Phone: [facility] 03-06-2024 15:22-0500 Diastolic blood pressure 78 mm[Hg] Tessie Kaufman APRN.DIRECTOR OF PURCHASING Work Phone: [facility] 03-06-2024 15:22-0500 Heart rate 87 /min Tessie Kaufman APRN.DIRECTOR OF PURCHASING Work Phone: [facility] 03-06-2024 15:22-0500 Respiratory rate 14 /min Tessie Kaufman APRN.DIRECTOR OF PURCHASING Work Phone: [facility] 03-06-2024 15:22-0500 SaO2% (BldA) [Mass fraction] 100 % Tessie Kaufman APRN.DIRECTOR OF PURCHASING Work Phone: [facility] 03-06-2024 15:22-0500 Systolic blood pressure 104 mm[Hg] Tessie Kaufman APRN.DIRECTOR OF PURCHASING Work Phone: [facility] 03-06-2024 13:00-0500 Body height 163.8 cm Livier Petty Work Phone: [facility] 03-06-2024 13:00-0500 Body mass index (BMI) [Ratio] 32.67 kg/m2 Pulm Addon Work Phone: [facility] 03-06-2024 13:00-0500 Body weight 87.7 kg Pulm Addon Work Phone: [facility] 03-05-2024 08:29-0500 Body temperature 99.3 [degF] Treatment Wstr Work Phone: [facility] 03-05-2024 08:29-0500 Diastolic blood pressure 84 mm[Hg] Treatment Wstr Work Phone: [facility] 03-05-2024 08:29-0500 Heart rate 80 /min Treatment Wstr Work Phone: [facility] 03-05-2024 08:29-0500 Respiratory rate 16 /min Treatment Wstr Work Phone: [facility] 03-05-2024 08:29-0500 SaO2% (BldA) [Mass fraction] 96 % Treatment Wstr Work Phone: [facility] 03-05-2024 08:29-0500 Systolic blood pressure 132 mm[Hg] Treatment Wstr Work Phone: [facility] 03-03-2024 07:00-0500 Body mass index (BMI) [Ratio] 33.13 kg/m2 Treatment Wstr Work Phone: [facility] 03-03-2024 07:00-0500 Body temperature 97.9 [degF] Treatment Wstr Work Phone: [facility] 03-03-2024 07:00-0500 Body weight 87.54 kg Treatment Wstr Work Phone: [facility] 03-03-2024 07:00-0500 Diastolic blood pressure 84 mm[Hg] Treatment Wstr Work Phone: [facility] 03-03-2024 07:00-0500 Heart rate 92 /min Treatment Wstr Work Phone: [facility] 03-03-2024 07:00-0500 Systolic blood pressure 126 mm[Hg] Treatment Wstr Work Phone: [facility] 02-20-2024 09:34-0500 Body mass index (BMI) [Ratio] 33.47 kg/m2 Alf Mendezi DO Work Phone: [facility] 02-20-2024 09:34-0500 Body temperature 97.59 [degF] Alf Mendezi DO Work Phone: [facility] 02-20-2024 09:34-0500 Body weight 88.45 kg Alf Mendezi DO Work Phone: [facility] 02-20-2024 09:34-0500 Diastolic blood pressure 89 mm[Hg] Alf Mendezi DO Work Phone: [facility] 02-20-2024 09:34-0500 Heart rate 70 /min Alf Mendezi DO Work Phone: [facility] 02-20-2024 09:34-0500 SaO2% (BldA) [Mass fraction] 100 % Alf Mendezi DO Work Phone: [facility] 02-20-2024 09:34-0500 Systolic blood pressure 132 mm[Hg] Alf Mendezi DO Work Phone: [facility] 02-12-2024 14:20-0500 Diastolic blood pressure 78 mm[Hg] Treatment Wstr Work Phone: [facility] 02-12-2024 14:20-0500 Heart rate 60 /min Treatment Wstr Work Phone: [facility] 02-12-2024 14:20-0500 Respiratory rate 14 /min Treatment Wstr Work Phone: [facility] 02-12-2024 14:20-0500 SaO2% (BldA) [Mass fraction] 97 % Treatment Wstr Work Phone: [facility] 02-12-2024 14:20-0500 Systolic blood pressure 122 mm[Hg] Treatment Wstr Work Phone: [facility] 02-12-2024 10:09-0500 Body temperature 98.8 [degF] Treatment Wstr Work Phone: [facility] 02-11-2024 08:01-0500 Body mass index (BMI) [Ratio] 32.87 kg/m2 Treatment Wstr Work Phone: [facility] 02-11-2024 08:01-0500 Body temperature 98.6 [degF] Treatment Wstr Work Phone: [facility] 02-11-2024 08:01-0500 Body weight 86.86 kg Treatment Wstr Work Phone: [facility] 02-11-2024 08:01-0500 Diastolic blood pressure 73 mm[Hg] Treatment Wstr Work Phone: [facility] 02-11-2024 08:01-0500 Heart rate 67 /min Treatment Wstr Work Phone: [facility] 02-11-2024 08:01-0500 SaO2% (BldA) [Mass fraction] 98 % Treatment Wstr Work Phone: [facility] 02-11-2024 08:01-0500 Systolic blood pressure 121 mm[Hg] Treatment Wstr Work Phone: [facility] 01-25-2024 07:59-0500 Body mass index (BMI) [Ratio] 33.3 kg/m2 Treatment Wstr Work Phone: [facility] 01-25-2024 07:59-0500 Body temperature 98.4 [degF] Treatment Wstr Work Phone: [facility] 01-25-2024 07:59-0500 Body weight 88 kg Treatment Wstr Work Phone: [facility] 01-25-2024 07:59-0500 Diastolic blood pressure 67 mm[Hg] Treatment Wstr Work Phone: [facility] 01-25-2024 07:59-0500 Heart rate 68 /min Treatment Wstr Work Phone: [facility] 01-25-2024 07:59-0500 SaO2% (BldA) [Mass fraction] 97 % Treatment Wstr Work Phone: [facility] 01-25-2024 07:59-0500 Systolic blood pressure 106 mm[Hg] Treatment Wstr Work Phone: [facility] 01-23-2024 08:00-0500 Body temperature 97.59 [degF] Treatment Wstr Work Phone: [facility] 01-23-2024 08:00-0500 Diastolic blood pressure 58 mm[Hg] Treatment Wstr Work Phone: [facility] 01-23-2024 08:00-0500 Heart rate 91 /min Treatment Wstr Work Phone: [facility] 01-23-2024 08:00-0500 Systolic blood pressure 125 mm[Hg] Treatment Wstr Work Phone: [facility] 01-21-2024 08:00-0500 Body mass index (BMI) [Ratio] 32.44 kg/m2 Treatment Wstr Work Phone: [facility] 01-21-2024 08:00-0500 Body temperature 98.2 [degF] Treatment Wstr Work Phone: [facility] 01-21-2024 08:00-0500 Body weight 85.73 kg Treatment Wstr Work Phone: [facility] 01-21-2024 08:00-0500 Diastolic blood pressure 75 mm[Hg] Treatment Wstr Work Phone: [facility] 01-21-2024 08:00-0500 Heart rate 98 /min Treatment Wstr Work Phone: [facility] 01-21-2024 08:00-0500 Systolic blood pressure 110 mm[Hg] Treatment Wstr Work Phone: [facility] 01-18-2024 08:05-0500 Body mass index (BMI) [Ratio] 32.27 kg/m2 Mayco Archibald Work Phone: [facility] 01-18-2024 08:05-0500 Body temperature 98.4 [degF] Mayco Archibald Work Phone: [facility] 01-18-2024 08:05-0500 Body weight 85.28 kg Mayco Archibald Work Phone: [facility] 01-18-2024 08:05-0500 Diastolic blood pressure 62 mm[Hg] Mayco Archibald Work Phone: [facility] 01-18-2024 08:05-0500 Heart rate 84 /min Mayco Archibald Work Phone: [facility] 01-18-2024 08:05-0500 SaO2% (BldA) [Mass fraction] 98 % Mayco Archibald Work Phone: [facility] 01-18-2024 08:05-0500 Systolic blood pressure 122 mm[Hg] Mayco Archibald Work Phone: [facility] 01-01-2024 09:00-0500 Body temperature 97.3 [degF] Treatment Wstr Work Phone: [facility] 01-01-2024 09:00-0500 Diastolic blood pressure 69 mm[Hg] Treatment Wstr Work Phone: [facility] 01-01-2024 09:00-0500 Heart rate 78 /min Treatment Wstr Work Phone: [facility] 01-01-2024 09:00-0500 Systolic blood pressure 136 mm[Hg] Treatment Wstr Work Phone: [facility] 12-28-2023 08:18-0500 Body mass index (BMI) [Ratio] 32.53 kg/m2 Mayco Archibald Work Phone: [facility] 12-28-2023 08:18-0500 Body temperature 98.71 [degF] Mayco Archibald Work Phone: [facility] 12-28-2023 08:18-0500 Body weight 85.96 kg Mayco Archibald Work Phone: [facility] 12-28-2023 08:18-0500 Diastolic blood pressure 77 mm[Hg] Mayco Archibald Work Phone: [facility] 12-28-2023 08:18-0500 Heart rate 78 /min Mayco Archibald Work Phone: [facility] 12-28-2023 08:18-0500 SaO2% (BldA) [Mass fraction] 98 % Mayco Archibald Work Phone: [facility] 12-28-2023 08:18-0500 Systolic blood pressure 117 mm[Hg] Mayco Archibald Work Phone: [facility] 12-10-2023 07:00-0500 Body mass index (BMI) [Ratio] 33.56 kg/m2 Treatment Wstr Work Phone: [facility] 12-10-2023 07:00-0500 Body temperature 97.11 [degF] Treatment Wstr Work Phone: [facility] 12-10-2023 07:00-0500 Body weight 88.68 kg Treatment Wstr Work Phone: [facility] 12-10-2023 07:00-0500 Diastolic blood pressure 72 mm[Hg] Treatment Wstr Work Phone: [facility] 12-10-2023 07:00-0500 Heart rate 70 /min Treatment Wstr Work Phone: [facility] 12-10-2023 07:00-0500 Systolic blood pressure 119 mm[Hg] Treatment Wstr Work Phone: [facility] 12-07-2023 09:37-0400 Body mass index (BMI) [Ratio] 33.3 kg/m2 Mayco Archibald Work Phone: [facility] 12-07-2023 09:37-0400 Body temperature 97.9 [degF] Mayco Archibald Work Phone: [facility] 12-07-2023 09:37-0400 Body weight 88 kg Mayco Archibald Work Phone: [facility] 12-07-2023 09:37-0400 Diastolic blood pressure 77 mm[Hg] Mayco Archibald Work Phone: [facility] 12-07-2023 09:37-0400 Heart rate 63 /min Mayco Archibald Work Phone: [facility] 12-07-2023 09:37-0400 SaO2% (BldA) [Mass fraction] 97 % Mayco Archibald Work Phone: [facility] 12-07-2023 09:37-0400 Systolic blood pressure 119 mm[Hg] Mayco Archibald Work Phone: [facility] 11-27-2023 08:47-0400 Body mass index (BMI) [Ratio] 33.3 kg/m2 Alf Masci DO Work Phone: [facility] 11-27-2023 08:47-0400 Body temperature 98.29 [degF] Alf Masci DO Work Phone: [facility] 11-27-2023 08:47-0400 Body weight 88 kg Alf Masci DO Work Phone: [facility] 11-27-2023 08:47-0400 Diastolic blood pressure 74 mm[Hg] Alf Masci DO Work Phone: [facility] 11-27-2023 08:47-0400 Heart rate 69 /min Alf Masci DO Work Phone: [facility] 11-27-2023 08:47-0400 SaO2% (BldA) [Mass fraction] 98 % Alf Masci DO Work Phone: [facility] 11-27-2023 08:47-0400 Systolic blood pressure 111 mm[Hg] Alf Masci DO Work Phone: [facility] 11-12-2023 15:02-0400 Body height 162.6 cm [facility] 11-12-2023 15:02-0400 Body mass index (BMI) [Ratio] 34.16 kg/m2 [facility] 11-12-2023 15:02-0400 Body weight 90.27 kg [facility] 10-22-2023 13:20-0400 Body height 165.1 cm Alf Masci DO Work Phone: [facility] 10-22-2023 13:20-0400 Body mass index (BMI) [Ratio] 32.95 kg/m2 Alf Mendezi DO Work Phone: [facility] 10-22-2023 13:20-0400 Body temperature 97.81 [degF] Alf Mendezi DO Work Phone: [facility] 10-22-2023 13:20-0400 Body weight 89.81 kg Alf Mendezi DO Work Phone: [facility] 10-22-2023 13:20-0400 Diastolic blood pressure 71 mm[Hg] Alf Mendezi DO Work Phone: [facility] 10-22-2023 13:20-0400 Heart rate 65 /min Alf Mendezi DO Work Phone: [facility] 10-22-2023 13:20-0400 SaO2% (BldA) [Mass fraction] 99 % Alf Mendezi DO Work Phone: [facility] 10-22-2023 13:20-0400 Systolic blood pressure 111 mm[Hg] Alf Mendezi DO Work Phone: [facility] 10-17-2023 11:36-0400 Body height 162.6 cm Allen Valdes MD Work Phone: [facility] 10-17-2023 11:36-0400 Body mass index (BMI) [Ratio] 33.13 kg/m2 Allen Valdes MD Work Phone: [facility] 10-17-2023 11:36-0400 Body weight 87.54 kg Allen Valdes MD Work Phone: [facility] 10-04-2023 14:16-0400 Body height 163.8 cm Pulm Wstr Work Phone: [facility] 10-04-2023 14:16-0400 Body mass index (BMI) [Ratio] 33.63 kg/m2 Pulm Wstr Work Phone: [facility] 10-04-2023 14:16-0400 Body temperature 97.59 [degF] Janett Feliciano MD, PhD Work Phone: [facility] 10-04-2023 14:16-0400 Body weight 90.27 kg Pulm Wstr Work Phone: [facility] 10-04-2023 14:16-0400 Diastolic blood pressure 52 mm[Hg] Janett Feliciano MD, PhD Work Phone: [facility] 10-04-2023 14:16-0400 Heart rate 79 /min Janett Feliciano MD, PhD Work Phone: [facility] 10-04-2023 14:16-0400 Respiratory rate 14 /min Janett Feliciano MD, PhD Work Phone: [facility] 10-04-2023 14:16-0400 SaO2% (BldA) [Mass fraction] 95 % Janett Feliciano MD, PhD Work Phone: [facility] 10-04-2023 14:16-0400 Systolic blood pressure 116 mm[Hg] Janett Feliciano MD, PhD Work Phone: [facility] 07-05-2023 10:33-0400 Body height 163.8 cm Ny Ross MD Work Phone: [facility] 07-05-2023 10:33-0400 Body mass index (BMI) [Ratio] 33.46 kg/m2 Ny Ross MD Work Phone: [facility] 07-05-2023 10:33-0400 Body weight 89.81 kg Ny Ross MD Work Phone: [facility] 07-05-2023 10:33-0400 Diastolic blood pressure 60 mm[Hg] Ny Ross MD Work Phone: [facility] 07-05-2023 10:33-0400 Heart rate 63 /min Ny Ross MD Work Phone: [facility] 07-05-2023 10:33-0400 Respiratory rate 12 /min Ny Ross MD Work Phone: [facility] 07-05-2023 10:33-0400 SaO2% (BldA) [Mass fraction] 97 % Ny Ross MD Work Phone: [facility] 07-05-2023 10:33-0400 Systolic blood pressure 104 mm[Hg] Ny Ross MD Work Phone: [facility] 07-05-2023 09:45-0400 Body height 163.8 cm Pulm Wstr Work Phone: [facility] 07-05-2023 09:45-0400 Body mass index (BMI) [Ratio] 33.46 kg/m2 Pulm Wstr Work Phone: [facility] 07-05-2023 09:45-0400 Body weight 89.81 kg Pulm Wstr Work Phone: [facility] 07-05-2023 09:45-0400 Heart rate 63 /min Pulm Wstr Work Phone: [facility] 07-05-2023 09:45-0400 Respiratory rate 12 /min Pulm Wstr Work Phone: [facility] 07-05-2023 09:45-0400 SaO2% (BldA) [Mass fraction] 97 % Pulm Wstr Work Phone: [facility] 04-04-2023 11:25-0500 Body temperature 98.71 [degF] Boazvalentin Smithjohn DO Work Phone: [facility] 04-04-2023 11:25-0500 Body weight 90.4 kg Boazvalentin Smithjohn DO Work Phone: [facility] 04-04-2023 11:25-0500 Diastolic blood pressure 59 mm[Hg] Boazvalentin Smithjohn DO Work Phone: [facility] 04-04-2023 11:25-0500 Heart rate 70 /min Boazvalentin Smithjohn DO Work Phone: [facility] 04-04-2023 11:25-0500 Systolic blood pressure 120 mm[Hg] Boaz Pineda DO Work Phone: [facility] 04-04-2023 10:17-0500 Body height 162.6 cm Allen Valdes MD Work Phone: [facility] 04-04-2023 10:17-0500 Body temperature 98.71 [degF] Allen Valdes MD Work Phone: [facility] 04-04-2023 10:17-0500 Body weight 88.91 kg Allen Valdes MD Work Phone: [facility] 04-04-2023 10:17-0500 Diastolic blood pressure 59 mm[Hg] Allen Valdes MD Work Phone: [facility] 04-04-2023 10:17-0500 Heart rate 70 /min Allen Valdes MD Work Phone: [facility] 04-04-2023 10:17-0500 SaO2% (BldA) [Mass fraction] 95 % Allen Valdes MD Work Phone: [facility] 04-04-2023 10:17-0500 Systolic blood pressure 120 mm[Hg] Allen Valdes MD Work Phone: [facility] 01-11-2023 17:33-0500 Body temperature 98.01 [degF] NA Chang PA-C Work Phone: [facility] 01-11-2023 17:33-0500 Body weight 90.27 kg NA Chang PA-C Work Phone: [facility] 01-11-2023 17:33-0500 Diastolic blood pressure 60 mm[Hg] NA Chang PA-C Work Phone: [facility] 01-11-2023 17:33-0500 Heart rate 80 /min NA Chang PA-C Work Phone: [facility] 01-11-2023 17:33-0500 Respiratory rate 16 /min NA Chang PA-C Work Phone: [facility] 01-11-2023 17:33-0500 SaO2% (BldA) [Mass fraction] 95 % NA Chang PA-C Work Phone: [facility] 01-11-2023 17:33-0500 Systolic blood pressure 120 mm[Hg] NA Chang PA-C Work Phone: [facility] 10-02-2022 13:54-0400 Body weight 90.36 kg Boaz Pineda DO Work Phone: [facility] 10-02-2022 13:54-0400 Diastolic blood pressure 56 mm[Hg] Boaz Pineda DO Work Phone: [facility] 10-02-2022 13:54-0400 Heart rate 89 /min Boaz Pineda DO Work Phone: [facility] 10-02-2022 13:54-0400 Systolic blood pressure 123 mm[Hg] Boaz Pineda DO Work Phone: [facility] 03-01-2022 08:55-0500 Body height 163.8 cm Raisa Latham MD Work Phone: [facility] 03-01-2022 08:55-0500 Body weight 91.63 kg Raisa Latham MD Work Phone: [facility] 03-01-2022 08:55-0500 Diastolic blood pressure 66 mm[Hg] Raisa Latham MD Work Phone: [facility] 03-01-2022 08:55-0500 Systolic blood pressure 110 mm[Hg] Raisa Latham MD Work Phone: [facility] 01-30-2022 15:09-0500 Body temperature 99.5 [degF] Alexa Govea RAILROAD MAINTENANCE CLERK.DIRECTOR OF PURCHASING Work Phone: [facility] 01-30-2022 15:09-0500 Body weight 92.08 kg Alexa Govea RAILROAD MAINTENANCE CLERK.DIRECTOR OF PURCHASING Work Phone: [facility] 01-30-2022 15:09-0500 Diastolic blood pressure 64 mm[Hg] Alexa Becca RAILROAD MAINTENANCE CLERK.DIRECTOR OF PURCHASING Work Phone: [facility] 01-30-2022 15:09-0500 Heart rate 96 /min Alexa Becca RAILROAD MAINTENANCE CLERK.DIRECTOR OF PURCHASING Work Phone: [facility] 01-30-2022 15:09-0500 Respiratory rate 16 /min Alexa Becca RAILROAD MAINTENANCE CLERK.DIRECTOR OF PURCHASING Work Phone: [facility] 01-30-2022 15:09-0500 SaO2% (BldA) [Mass fraction] 98 % Alexa Becca RAILROAD MAINTENANCE CLERK.DIRECTOR OF PURCHASING Work Phone: [facility] 01-30-2022 15:09-0500 Systolic blood pressure 110 mm[Hg] Alexa Becca RAILROAD MAINTENANCE CLERK.DIRECTOR OF PURCHASING Work Phone: [facility] 12-30-2021 12:48-0500 Body temperature 97.59 [degF] Lindsey Hightower MD Work Phone: [facility] 12-30-2021 12:48-0500 Body weight 89.81 kg Lindsey Hightower MD Work Phone: [facility] 12-30-2021 12:48-0500 Diastolic blood pressure 63 mm[Hg] Lindsey Hightower MD Work Phone: [facility] 12-30-2021 12:48-0500 Heart rate 75 /min Lindsey Hightower MD Work Phone: [facility] 12-30-2021 12:48-0500 Respiratory rate 16 /min Lindsey Hightower MD Work Phone: [facility] 12-30-2021 12:48-0500 SaO2% (BldA) [Mass fraction] 98 % Lindsey Hightower MD Work Phone: [facility] 12-30-2021 12:48-0500 Systolic blood pressure 133 mm[Hg] Lindsey Hightower MD Work Phone: [facility] 12-28-2021 14:15-0500 Body height 163.8 cm Respiratory Wstr Work Phone: [facility] 12-28-2021 14:15-0500 Body weight 91.17 kg Respiratory Wstr Work Phone: [facility] 12-28-2021 14:15-0500 Heart rate 72 /min Respiratory Wstr Work Phone: [facility] 12-28-2021 14:15-0500 Respiratory rate 12 /min Respiratory Wstr Work Phone: [facility] 12-28-2021 14:15-0500 SaO2% (BldA) [Mass fraction] 95 % Respiratory Wstr Work Phone: [facility] 11-28-2021 16:19-0400 Body height 166 cm NA Chang PA-C Work Phone: [facility] 11-28-2021 16:19-0400 Body weight 91.17 kg NA Chnag PA-C Work Phone: [facility] 11-28-2021 16:19-0400 Diastolic blood pressure 60 mm[Hg] NA Chang PA-C Work Phone: [facility] 11-28-2021 16:19-0400 Heart rate 95 /min NA Chang PA-C Work Phone: [facility] 11-28-2021 16:19-0400 Respiratory rate 16 /min NA Chang PA-C Work Phone: [facility] 11-28-2021 16:19-0400 SaO2% (BldA) [Mass fraction] 96 % NA Chang PA-C Work Phone: [facility] 11-28-2021 16:19-0400 Systolic blood pressure 122 mm[Hg] NA Chang PA-C Work Phone: [facility] 11-14-2021 15:41-0400 Body height 166.5 cm Boaz Pineda DO Work Phone: [facility] 11-14-2021 15:41-0400 Body weight 92.08 kg Boaz Pineda DO Work Phone: [facility] 11-14-2021 15:41-0400 Diastolic blood pressure 68 mm[Hg] Boaz Pineda DO Work Phone: [facility] 11-14-2021 15:41-0400 Heart rate 91 /min Boaz Pindea DO Work Phone: [facility] 11-14-2021 15:41-0400 Systolic blood pressure 123 mm[Hg] Boaz Pineda DO Work Phone: [facility] 10-26-2021 11:20-0400 Body height 166.5 cm Allen Valdes MD Work Phone: [facility] 10-26-2021 11:20-0400 Body temperature 97.5 [degF] Allen Valdes MD Work Phone: [facility] 10-26-2021 11:20-0400 Body weight 90.9 kg Allen Valdes MD Work Phone: [facility] 10-26-2021 11:20-0400 Diastolic blood pressure 66 mm[Hg] Allen Valdes MD Work Phone: [facility] 10-26-2021 11:20-0400 Heart rate 77 /min Allen Valdes MD Work Phone: [facility] 10-26-2021 11:20-0400 SaO2% (BldA) [Mass fraction] 98 % Allen Valdes MD Work Phone: [facility] 10-26-2021 11:20-0400 Systolic blood pressure 133 mm[Hg] Allen Valdes MD Work Phone: [facility] Encounters Encounter Date Encounter Type Care Provider Facility Start: 09-26-2024 ambulatory [facility] Facility:[facility] Start: 09-18-2024 ambulatory [facility] Facility :[facility] Start: 09-18-2024 End: 09-18-2024 Subsequent hospital visit by physician [facility] Work Phone: Radiology Comment on above: Edema, unspecified t ype [R60.9] Non-small cell cance r of right lung (HCC) [C34.91] Start: 09-15-2024 End: 09-18-2024 Chart abstracting Yaron Parikh Research Coordinator Rheumatology Comment on above: Research F/U (IRB# [id number], Lupus Registry, ID: [id number], F/U 3) Start: 09-15-2024 End: 09-18-2024 Patient encounter procedure Boaz Izabella Pineda DO Work Phone: Rheumatology Comment on above: Other systemic lupus erythematosus with other organ involvement (HCC) (Primary Dx) Start: 09-15-2024 End: 09-15-2024 ambulatory Alf Castle DO Work Phone: Hematology/Oncology Comment on above: Lip ulcer Start: 09-12-2024 End: 09-12-2024 ambulatory [facility] Facility:[facility] Start: 09-11-2024 End: 09-11-2024 ambulatory [facility] Facility:[facility] Start: 09-03-2024 End: 09-03-2024 Office outpatient visit 25 minutes Elizabeth Ledesma APRN.DIRECTOR OF PURCHASING Work Phone: Pulmonary Medicine Comment on above: Exertional dyspnea ( Primary Dx); Interstitial lung disease (HCC); Malignant neoplasm of lower lobe of right lung (HCC); Apnea Start: 09-03-2024 End: 09-03-2024 ambulatory [facility] Facility:[facility] Start: 08-22-2024 End: 08-22-2024 ambulatory Treatment Rm 5 [facility] Work Phone: Hematology/Oncology Comment on above: Non-small cell cance r of right lung (HCC) (Primary Dx) Start: 08-21-2024 End: 08-21-2024 Patient encounter procedure Kris Esteban APRN.DIRECTOR OF PURCHASING Work Phone: Hematology/Oncology Start: 08-21-2024 End: 08-21-2024 ambulatory Kris Esteban APRN.DIRECTOR OF PURCHASING Work Phone: Hematology/Oncology Comment on above: Non-small cell cance r of right lung (HCC) (Primary Dx) Start: 08-11-2024 End: 08-11-2024 Office outpatient visit 25 minutes Sidra Hurley APRN.DIRECTOR OF PURCHASING Work Phone: [facility] Comment on above: Non-small cell cance r of right lung (HCC) (Primary Dx); Screening for depression; Encounter for screening examination for other mental health and behavioral disorders; Interstitial lung disease (HCC); Hypotension, unspecified hypotension type; Hypothyroidism, acquired; Gastroesophageal reflux disease with esophagitis, unspecified whether hemorrhage Start: 08-11-2024 End: 08-11-2024 ambulatory [facility] Facility:[facility] Start: 08-06-2024 End: 08-06-2024 Patient encounter procedure Suzanne Nolasco APRN.DIRECTOR OF PURCHASING Work Phone: Thoracic Clinic Comment on above: Malignant neoplasm o f lower lobe of right lung (HCC) (Primary Dx) Start: 08-06-2024 End: 08-06-2024 Telemedicine consultation with patient Suzanne Nolasco APRN.DIRECTOR OF PURCHASING Work Phone: Thoracic Clinic Start: 08-06-2024 End: 08-06-2024 ambulatory [facility] Facility:[facility] Start: 08-05-2024 End: 08-05-2024 Telemedicine consultation with patient Allen Valdes MD Work Phone: Gastroenterology Start: 08-05-2024 End: 08-05-2024 ambulatory Allen Valdes MD Work Phone: Gastroenterology Comment on above: Primary biliary chol angitis (HCC) (Primary Dx); Shortness of breath; Encounter for immunotherapy; Cough, unspecified type Start: 08-05-2024 End: 08-05-2024 Subsequent hospital visit by physician N[facility] Martínez Work Phone: Radiology Comment on above: Malignant neoplasm o f lower lobe of right lung (HCC) [C34.31] Start: 08-01-2024 End: 08-01-2024 ambulatory Treatment Rm 9 [facility] Work Phone: Hematology/Oncology Comment on above: Non-small cell cance r of right lung (HCC) (Primary Dx) Start: 07-30-2024 End: 07-30-2024 Office outpatient visit 25 minutes Alf Castle DO Work Phone: Hematology/Oncology Comment on above: Non-small cell cance r of right lung (HCC) (Primary Dx); Chest wall pain Start: 07-30-2024 End: 07-31-2024 ambulatory Boaz Nietohn DO Work Phone: Rheumatology Comment on above: Prescription denied on Plaquenil Refill Request Start: 07-22-2024 End: 07-23-2024 ambulatory Alf Castle DO Work Phone: Hematology/Oncology Comment on above: Paper work for [employer] that is due 07-25-2024 Start: 07-20-2024 End: 07-21-2024 Refill Alf Castle DO Work Phone: Hematology/Oncology Comment on above: Refill Request Start: 07-14-2024 End: 07-14-2024 Get Medical Advice Sidra Hurley RAILROAD MAINTENANCE CLERK.DIRECTOR OF PURCHASING Work Phone: [facility] Comment on above: Levothyroxine refill Start: 07-11-2024 End: 07-11-2024 ambulatory Treatment Rm 1 [facility] Work Phone: Hematology/Oncology Comment on above: Non-small cell cance r of right lung (HCC) (Primary Dx) Start: 07-10-2024 End: 07-10-2024 Patient encounter procedure Kris Esteban APRN.DIRECTOR OF PURCHASING Work Phone: Hematology/Oncology Start: 07-10-2024 End: 07-10-2024 ambulatory Kris Esteban RAILROAD MAINTENANCE CLERK.DIRECTOR OF PURCHASING Work Phone: Hematology/Oncology Comment on above: Non-small cell cance r of right lung (HCC) (Primary Dx) Start: 07-09-2024 End: 07-09-2024 Telephone encounter Lu MAY Hematology/Oncology Comment on above: Social Work Services Start: 07-06-2024 End: 07-09-2024 Follow-up encounter Allen Valdes MD Work Phone: Gastroenterology Comment on above: Appointment (AUGUST 05 VV ) Start: 07-04-2024 End: 07-04-2024 Patient encounter procedure Suzanne Langston Gaurav GRAHAM Work Phone: Thoracic Clinic Comment on above: Malignant neoplasm o f lower lobe of right lung (HCC) (Primary Dx); Pleural effusion Start: 07-04-2024 End: 07-04-2024 Telemedicine consultation with patient Suzanne Covingtonyue MATOS.DIRECTOR OF PURCHASING Work Phone: Thoracic Clinic Start: 07-04-2024 End: 07-04-2024 ambulatory [facility] Facility:[facility] Start: 07-03-2024 ambulatory [facility] Facility :[facility] Start: 07-03-2024 End: 07-03-2024 Subsequent hospital visit by physician [facility] Work Phone: Radiology Comment on above: Malignant neoplasm o f lower lobe of right lung (HCC) [C34.31] Start: 07-02-2024 End: 07-02-2024 Patient encounter procedure Hepatology Procedures A5 Work Phone: Gastroenterology Start: 07-02-2024 End: 07-02-2024 ambulatory [facility] Comment on above: Arrived Start: 06-20-2024 End: 06-20-2024 ambulatory Treatment Rm 6 [facility] Work Phone: Hematology/Oncology Comment on above: Non-small cell cance r of right lung (HCC) (Primary Dx) Start: 06-20-2024 End: 06-20-2024 Telephone encounter Boaz Pineda DO Work Phone: Rheumatology Comment on above: Received Outside [employer] Records (Exam Finding of 06/20/2024 from [facility]. ) Start: 06-19-2024 End: 06-20-2024 Telephone encounter Alf Castle DO Work Phone: Hematology/Oncology Comment on above: Results Start: 06-19-2024 End: 06-19-2024 Office outpatient visit 25 minutes Alf Castle DO Work Phone: Hematology/Oncology Comment on above: Non-small cell cance r of right lung (HCC) (Primary Dx) Start: 06-19-2024 End: 06-19-2024 ambulatory [facility] Facility:[facility] Start: 06-18-2024 End: 06-18-2024 Patient encounter procedure Allen Valdes MD Work Phone: Gastroenterology Comment on above: Primary biliary cirr hosis (HCC) (Primary Dx); Adenomyomatosis of gallbladder; Non-small cell cancer of right lung (HCC) Start: 06-18-2024 End: 06-18-2024 ambulatory [facility] Facility:[facility] Start: 06-12-2024 End: 06-13-2024 Follow-up encounter Sidra Hurley APRN.DIRECTOR OF PURCHASING Work Phone: [facility] Start: 06-10-2024 End: 06-10-2024 [facility] Start: 06-04-2024 End: 06-04-2024 Office outpatient visit 25 minutes Jennifer Renae APRN.DIRECTOR OF PURCHASING Work Phone: [facility] Comment on above: Chest discomfort (Pr imary Dx); Acute pain of right shoulder; Strain of left trapezius muscle, subsequent encounter Start: 06-04-2024 End: 06-04-2024 [facility] Facility:[facility] Start: 05-30-2024 End: 05-30-2024 [facility] Start: 05-27-2024 End: 05-27-2024 ambulatory Camilo Jonas MD Work Phone: [facility] Comment on above: Chest Pain Start: 05-27-2024 End: 05-27-2024 Emergency department patient visit Pablo Churchill Facility:[facility] Start: 05-26-2024 End: 05-26-2024 Telephone encounter Ann Randolph RN Hematology/Oncology Start: 05-22-2024 End: 05-22-2024 Patient encounter procedure Tessie Kaufman APRN.DIRECTOR OF PURCHASING Work Phone: Thoracic Clinic Comment on above: Malignant neoplasm o f lower lobe of right lung (HCC) (Primary Dx) Start: 05-22-2024 End: 05-22-2024 Telemedicine consultation with patient Tessie Kaufman APRN.DIRECTOR OF PURCHASING Work Phone: Thoracic Clinic Start: 05-22-2024 End: 05-22-2024 ambulatory [facility] Facility:[facility] Start: 05-21-2024 End: 05-21-2024 Telephone encounter Alf Castle DO Work Phone: Hematology/Oncology Comment on above: AVS 05/21 Start: 05-21-2024 End: 05-21-2024 ambulatory Alf Castle DO Work Phone: Hematology/Oncology Comment on above: Non-small cell cance r of right lung (HCC) (Primary Dx); CRISTINO (acute kidney injury); Primary biliary cirrhosis (HCC) Start: 05-21-2024 End: 05-21-2024 Patient encounter procedure Alf Castle DO Work Phone: Hematology/Oncology Start: 05-21-2024 End: 05-21-2024 ambulatory [facility] Facility:[facility] Start: 05-21-2024 End: 05-21-2024 Subsequent hospital visit by physician [facility] Martínez Work Phone: Radiology Comment on above: Malignant neoplasm o f lower lobe of right lung (HCC) [C34.31] Start: 05-09-2024 End: 05-09-2024 Patient encounter procedure Tessie Kaufman DIRECTOR OF PURCHASING Work Phone: Thoracic Clinic Comment on above: Malignant neoplasm o f lower lobe of right lung (HCC) (Primary Dx); Non-small cell cancer of right lung (HCC); Lung nodule Start: 05-09-2024 End: 05-09-2024 ambulatory [facility] Facility:[facility] Start: 05-09-2024 End: 05-09-2024 Subsequent hospital visit by physician Xr Chest Main J1 Work Phone: Radiology Comment on above: Malignant neoplasm o f lower lobe of right lung (HCC) [C34.31] Start: 05-08-2024 End: 05-08-2024 Telephone encounter Lu MAY Hematology/Oncology Comment on above: Social Work Services Start: 05-08-2024 End: 05-08-2024 ambulatory CAMILO Emir PRITESH Facility:[facility] Start: 05-01-2024 End: 05-03-2024 Evaluation and management of inpatient CAMILO JONAS Facility:[facility] Start: 04-28-2024 End: 04-28-2024 Telephone encounter Alf Castle DO Work Phone: Hematology/Oncology Comment on above: Patient Question Start: 04-28-2024 End: 04-28-2024 ambulatory Treatment Rm 18 [facility] Work Phone: Hematology/Oncology Comment on above: Hypomagnesemia (Prim stevenson Dx); Non-small cell cancer of right lung (HCC) Start: 04-28-2024 End: 04-28-2024 Subsequent hospital visit by physician [facility] Mob 1 Work Phone: Radiology Comment on above: Elevated LFTs [R79.8 9] Start: 04-26-2024 End: 04-27-2024 Telephone encounter Alf Castle DO Work Phone: [place] Provider Adult Comment on above: Results Start: 04-25-2024 End: 04-25-2024 [facility] Start: 04-22-2024 End: 04-22-2024 Telephone encounter Soha Provider [facility] Department Comment on above: Fabric Transition of Care Start: 04-16-2024 End: 04-16-2024 Refill Alf Castle DO Work Phone: Hematology/Oncology Comment on above: Refill Request Start: 04-15-2024 Encounter for preprocedural laboratory examination CAMILO JONAS [facility] Start: 04-15-2024 End: 04-16-2024 Telephone encounter Alf Castle DO Work Phone: Hematology/Oncology Comment on above: Results Start: 04-15-2024 End: 04-15-2024 ambulatory [facility] Facility:[facility] Start: 04-15-2024 End: 04-15-2024 Subsequent hospital visit by physician [facility] (I-Stat) Work Phone: Cat Scan Comment on above: Non-small cell cance r of right lung (HCC) [C34.91] Start: 04-14-2024 End: 04-14-2024 Telephone encounter Soha Provider [facility] Department Comment on above: Fabric Transition of Care Start: 04-11-2024 End: 04-22-2024 Telephone encounter Alf Castle DO Work Phone: Hematology/Oncology Comment on above: Follow Up Start: 04-11-2024 End: 04-11-2024 Office outpatient visit 25 minutes Alf Castle DO Work Phone: Hematology/Oncology Comment on above: Non-small cell cance r of right lung (HCC) (Primary Dx); CRISTINO (acute kidney injury) (HCC); LFT elevation Start: 04-11-2024 End: 04-11-2024 ambulatory [facility] Facility:[facility] Start: 04-10-2024 End: 04-10-2024 ambulatory [facility] Facility:[facility] Start: 04-10-2024 End: 04-10-2024 Office outpatient visit 15 minutes Sidra Hurley APRN.CNP Work Phone: [facility] Comment on above: Stage 3a chronic kid anthony disease (HCC) (Primary Dx); Low magnesium level; Hypothyroidism, acquired; Systemic lupus erythematosus, unspecified SLE type, unspecified organ involvement status (HCC); Primary biliary cirrhosis (HCC); Lung nodule Start: 04-07-2024 End: 04-07-2024 Telephone encounter Soha Alonso MD [facility] Department Comment on above: Fabric Transition of Care Start: 04-07-2024 End: 04-07-2024 ambulatory [facility] Facility:[facility] Start: 04-04-2024 End: 04-08-2024 Telephone encounter Alf Castle DO Work Phone: Hematology/Oncology Comment on above: Results Start: 04-01-2024 End: 04-04-2024 Evaluation and management of inpatient [facility] Facility[facility] Start: 04-01-2024 End: 04-01-2024 Telephone encounter Ann Randolph RN Hematology/Oncology Comment on above: Scaler - O ther (Follow-up ) Start: 04-01-2024 End: 04-01-2024 ambulatory [facility] Facility:[facility] Start: 03-31-2024 End: 03-31-2024 Telephone encounter Palomo Lal MD Work Phone: Kidney Medicine Comment on above: Results Start: 03-28-2024 End: 03-28-2024 ambulatory Treatment Rm 17 [facility] Work Phone: Hematology/Oncology Comment on above: Hypomagnesemia (Prim stevenson Dx) Start: 03-25-2024 End: 03-26-2024 Orders Only Alf Castle DO Work Phone: Hematology/Oncology Comment on above: Non-small cell cance r of right lung (HCC) (Primary Dx); Hypomagnesemia Hypomagnesemia (Prim stevenson Dx); Non-small cell cancer of right lung (HCC) Results Start: 03-21-2024 End: 03-21-2024 ambulatory Treatment Rm 14 [facility] Work Phone: Hematology/Oncology Comment on above: Hypomagnesemia (Prim stevenson Dx); Non-small cell cancer of right lung (HCC) Start: 03-21-2024 End: 03-21-2024 Telephone encounter Alf Castle DO Work Phone: Hematology/Oncology Start: 03-21-2024 End: 03-21-2024 ambulatory [facility] Facility:[facility] Start: 03-21-2024 End: 03-21-2024 Office outpatient visit 25 minutes Alf Castle DO Work Phone: Hematology/Oncology Comment on above: Non-small cell cance r of right lung (HCC) (Primary Dx); Hypomagnesemia; Acute kidney injury (HCC) Start: 03-20-2024 End: 03-20-2024 ambulatory [facility] Facility:[facility] Start: 03-19-2024 End: 04-30-2024 Telephone encounter Janett Feliciano MD, PhD Work Phone: Thoracic Clinic Comment on above: FMLA Paperwork Start: 03-18-2024 End: 03-18-2024 ambulatory [facility] Facility:[facility] Start: 03-18-2024 End: 03-18-2024 Admission to establishment [place] [id number] Work Phone: Pre Anesthesia Start: 03-18-2024 End: 03-18-2024 Anesthesia consultation [place] [id number] Work Phone: Pre Anesthesia Comment on above: Pre-op evaluation (P rimary Dx); Obesity, Class I, BMI 30-34.9; Systemic lupus erythematosus, unspecified SLE type, unspecified organ involvement status (HCC); Interstitial lung disease (HCC); RODRIGO (obstructive sleep apnea); HYPERLIPIDEMIA MIXED; Sclerosing cholangitis; Milton's esophagus with dysplasia; Gastroesophageal reflux disease, unspecified whether esophagitis present; Primary biliary cirrhosis (HCC); Hypomagnesemia; Acute tubulo-interstitial nephritis; Leukocytosis, unspecified type; Anemia, unspecified type; Cutaneous lupus erythematosus Start: 03-18-2024 Encounter for other preprocedural examination [facility] Start: 03-18-2024 End: 03-18-2024 Preprocedural examination done [place] [id number] Work Phone: [facility] Work Phone: Start: 03-18-2024 End: 03-18-2024 Patient encounter procedure Janett Feliciano MD, PhD Work Phone: Thoracic Surgery Comment on above: Personal history of malignant neoplasm of bronchus and lung (Primary Dx) Start: 03-18-2024 End: 03-18-2024 ambulatory [facility] Facility:[facility] Start: 03-18-2024 Encounter for preprocedural laboratory examination [facility] Start: 03-18-2024 End: 03-18-2024 Patient encounter status Xr Hosp [facility] Start: 03-18-2024 End: 03-18-2024 Subsequent hospital visit by physician Xr [place] Comment on above: Malignant neoplasm o f lower lobe of right lung (HCC) [C34.31] Start: 03-14-2024 End: 03-14-2024 Admission to same day surgery center Janett Feliciano MD, PhD Work Phone: Thoracic Clinic Comment on above: Medications to hold prior to Surgery Start: 03-14-2024 End: 03-14-2024 E-mail encounter from caregiver Janett Feliciano MD, PhD Work Phone: Thoracic Clinic Start: 03-13-2024 End: 03-13-2024 Telephone encounter Alf Castle DO Work Phone: Hematology/Oncology Comment on above: Patient Question Start: 03-12-2024 End: 03-12-2024 Emergency department patient visit MARCELO SHER Facility:[facility] Start: 03-12-2024 End: 03-12-2024 Patient encounter procedure Palomo Lal MD Work Phone: Kidney Medicine Comment on above: CRISTINO (acute kidney in jury) (HCC) (Primary Dx); Acute tubulo-interstitial nephritis; Non-small cell cancer of right lung (HCC) Start: 03-12-2024 End: 03-12-2024 ambulatory PALOMO LAL Facility:[facility] Start: 03-11-2024 End: 03-12-2024 Telephone encounter Alf Castle DO Work Phone: Hematology/Oncology Comment on above: Results Start: 03-10-2024 End: 03-10-2024 Chart abstracting Cristo De La Rosa Research Coordinator Work Phone: Rheumatology Comment on above: Research F/U (IRB #[id number], Lupus Registry, ID: [id number] F/U 2) Start: 03-10-2024 End: 03-10-2024 ambulatory CAMILO JONAS Facility:[facility] Start: 03-10-2024 End: 03-10-2024 Patient encounter procedure Cristo De La Rosa Research Coordinator Work Phone: [facility] Work Phone: Comment on above: Examination of parti cipant or control in clinical research (Primary Dx); Other systemic lupus erythematosus with other organ involvement (HCC) Start: 03-09-2024 End: 03-10-2024 Telephone encounter Alf Castle DO Work Phone: Hematology/Oncology Comment on above: Results Start: 03-06-2024 End: 03-06-2024 ambulatory CAMILO JONAS Facility:[facility] Start: 03-06-2024 End: 03-06-2024 Patient encounter procedure Pulm Fct Lab Main 6 Addon Work Phone: Pulmonary Medicine Comment on above: Spirometry Malignant neoplasm o f lower lobe of right lung (HCC) (Primary Dx) Start: 03-05-2024 End: 03-05-2024 ambulatory Treatment Rm 15 [facility] Work Phone: Hematology/Oncology Comment on above: Non-small cell cance r of right lung (HCC) (Primary Dx); Hypomagnesemia Start: 03-04-2024 End: 03-04-2024 Admission to same day surgery center Janett Feliciano MD, PhD Work Phone: Thoracic Clinic Comment on above: Schedule Surgery (Ro botic RLL lung resection 03/31/2024) Start: 03-04-2024 End: 03-04-2024 ambulatory Janett Feliciano MD, PhD Work Phone: Thoracic Clinic Start: 03-04-2024 End: 03-04-2024 Patient encounter status Janett Feliciano MD, PhD Work Phone: [facility] Start: 03-03-2024 End: 03-03-2024 Telephone encounter Alf Castle DO Work Phone: Hematology/Oncology Comment on above: Orders Start: 03-03-2024 End: 03-03-2024 ambulatory Treatment Rm 2 [facility] Work Phone: Hematology/Oncology Comment on above: Hypercalcemia (Prima ry Dx); Non-small cell cancer of right lung (HCC); Hypomagnesemia; CRISTINO (acute kidney injury) (HCC) Start: 02-20-2024 End: 02-20-2024 Telephone encounter Janett Feliciano MD, PhD Work Phone: Thoracic Clinic Comment on above: Post Induction Compl etion note (Completed chemo 02/11/2024) Start: 02-20-2024 End: 02-20-2024 ambulatory CAMILO JONAS Facility:[facility] Start: 02-20-2024 End: 02-20-2024 Office outpatient visit 25 minutes Alf Castle DO Work Phone: Hematology/Oncology Comment on above: Non-small cell cance r of right lung (HCC) (Primary Dx) Start: 02-18-2024 End: 02-21-2024 Telephone encounter Alf Castle DO Work Phone: Hematology/Oncology Comment on above: Appointment Start: 02-12-2024 End: 02-12-2024 ambulatory Treatment Rm 14 [facility] Work Phone: Hematology/Oncology Comment on above: Hypomagnesemia (Prim stevenson Dx); Non-small cell cancer of right lung (HCC) Start: 02-12-2024 End: 02-12-2024 Subsequent hospital visit by physician Ct Prep [facility] Cat Scan Comment on above: Non-small cell cance r of right lung (HCC) [C34.91] Start: 02-11-2024 End: 02-11-2024 ambulatory Treatment Rm 2 Gian [facility] Work Phone: Hematology/Oncology Comment on above: Non-small cell cance r of right lung (HCC) (Primary Dx) Start: 01-29-2024 End: 01-29-2024 Telephone encounter Janett Feliciano MD, PhD Work Phone: Thoracic Clinic Comment on above: Patient Update (Chem o treatment delayed/rescheduled) Start: 01-25-2024 End: 01-25-2024 ambulatory Treatment Rm 3 [facility] Work Phone: Hematology/Oncology Comment on above: Non-small cell cance r of right lung (HCC) (Primary Dx); Hypomagnesemia Start: 01-24-2024 End: 01-24-2024 ambulatory Alf Castle DO Work Phone: Hematology/Oncology Comment on above: Magnesium test resul t and missed scheduling of appt. Start: 01-24-2024 End: 01-24-2024 Patient encounter procedure Boaz Pineda DO Work Phone: Rheumatology Comment on above: Fax of annual eye ex am 2023 Start: 01-24-2024 End: 01-24-2024 Telephone encounter Boaz Pineda DO Work Phone: Rheumatology Comment on above: Received Outside Med ical Records Start: 01-23-2024 End: 01-26-2024 Orders Only Alf Castle DO Work Phone: Hematology/Oncology Comment on above: Non-small cell cance r of right lung (HCC) (Primary Dx) Non-small cell cance r of right lung (HCC) (Primary Dx); Hypomagnesemia Refill Request Results avs 01/23/24 Start: 01-21-2024 End: 01-22-2024 Telephone encounter Alf Izabella Vandana GRIFFIN Work Phone: Hematology/Oncology Comment on above: Appointment Results Start: 01-21-2024 End: 01-21-2024 ambulatory Treatment Rm 1 [facility] Work Phone: Hematology/Oncology Comment on above: Non-small cell cance r of right lung (HCC) (Primary Dx) Start: 01-20-2024 End: 01-21-2024 Telephone encounter Alf Izabella Vandana GRIFFIN Work Phone: Hematology/Oncology Comment on above: Results Start: 01-18-2024 End: 01-18-2024 Patient encounter procedure Mayco Archibald Work Phone: Hematology/Oncology Start: 01-18-2024 End: 01-18-2024 ambulatory Mayco Archibald Work Phone: Hematology/Oncology Comment on above: Hypomagnesemia (Prim stevenson Dx); Mouth sore secondary to chemotherapy; Non-small cell cancer of right lung (HCC) Hypomagnesemia (Prim stevenson Dx); Non-small cell cancer of right lung (HCC) Start: 01-07-2024 End: 01-07-2024 Telephone encounter Lu MAY Hematology/Oncology Comment on above: Social Work Services Start: 01-01-2024 End: 01-06-2024 ambulatory Treatment Rm 9 [facility] Work Phone: Hematology/Oncology Comment on above: Non-small cell cance r of right lung (HCC) (Primary Dx) Refill Request Start: 12-31-2023 End: 12-31-2023 ambulatory [facility] Facility[facility] Start: 12-31-2023 End: 12-31-2023 Subsequent hospital visit by physician Screen Mammo [facility] Mammogram Comment on above: Encounter for screen ing mammogram for breast cancer [Z12.31] Start: 12-28-2023 End: 12-28-2023 Patient encounter procedure Mayco Archibald Work Phone: Hematology/Oncology Start: 12-28-2023 End: 12-28-2023 ambulatory Mayco Archibald Work Phone: Hematology/Oncology Comment on above: Non-small cell cance r of right lung (HCC) (Primary Dx) Start: 12-24-2023 End: 12-24-2023 ambulatory [facility] Facility[facility] Start: 12-20-2023 End: 12-20-2023 ambulatory [facility] Facility[facility] Start: 12-17-2023 End: 12-18-2023 Telephone encounter Alf Castle DO Work Phone: Hematology/Oncology Comment on above: Results Start: 12-17-2023 End: 12-17-2023 ambulatory [facility] Facility[facility] Start: 12-11-2023 End: 12-11-2023 ambulatory Jenise Melendez APRN.CNP Work Phone: [facility] Start: 12-11-2023 End: 12-11-2023 E-mail encounter from caregiver Jenise Melendez APRN.CNP Work Phone: [facility] Start: 12-11-2023 End: 12-11-2023 Patient encounter procedure Jenise Melendez APRN.DIRECTOR OF PURCHASING Work Phone: [facility] Comment on above: OPENED IN ERROR (Mindi wally Dx) Start: 12-11-2023 End: 12-11-2023 Telephone encounter Ann Randolph RN Hematology/Oncology Comment on above: Scaler - O ther Start: 12-10-2023 End: 12-10-2023 ambulatory Treatment Rm 1 [facility] Work Phone: Hematology/Oncology Comment on above: Non-small cell cance r of right lung (HCC) (Primary Dx) Start: 12-09-2023 End: 12-10-2023 Telephone encounter Alf Castle DO Work Phone: Hematology/Oncology Comment on above: Medication Problem Start: 12-07-2023 End: 12-07-2023 Patient encounter procedure Mayco Archibald Work Phone: Hematology/Oncology Start: 12-07-2023 End: 12-07-2023 ambulatory Mayco Archibald Work Phone: Hematology/Oncology Comment on above: Non-small cell cance r of right lung (HCC) (Primary Dx) Start: 12-05-2023 End: 12-07-2023 Orders Only Mayco Dragan Work Phone: Hematology/Oncology Comment on above: Non-small cell cance r of right lung (HCC) (Primary Dx) Start: 12-03-2023 End: 12-03-2023 Telephone encounter Ann Randolph RN Hematology/Oncology Comment on above: Scaler - O ther (Schedule/questions ) Start: 12-03-2023 End: 12-03-2023 learning disabilities specialist [facility] Work Phone: Hematology/Oncology Comment on above: Encounter for educat ion (Primary Dx) Start: 11-30-2023 End: 11-30-2023 Telephone encounter Lu MAY Hematology/Oncology Comment on above: Social Work Services Start: 11-29-2023 End: 11-29-2023 ambulatory CAMILO JONAS Facility:[facility] Start: 11-29-2023 Encounter for other preprocedural examination CAMILO JONAS [facility] Start: 11-29-2023 End: 11-29-2023 Patient encounter status Card Injection [facility] Start: 11-29-2023 End: 11-29-2023 Subsequent hospital visit by physician Card Injection [facility] Comment on above: Malignant neoplasm o f lower lobe of right lung (HCC) [C34.31] Start: 11-28-2023 End: 11-30-2023 ambulatory Ny Ross MD Work Phone: Pulmonary Medicine Comment on above: FMLA paperwork Start: 11-27-2023 End: 11-27-2023 Telephone encounter Alf Castle DO Work Phone: Hematology/Oncology Start: 11-27-2023 End: 11-27-2023 ambulatory Alf Castle DO Work Phone: Hematology/Oncology Comment on above: Non-small cell cance r of right lung (HCC) (Primary Dx) Start: 11-27-2023 End: 11-27-2023 Patient encounter procedure Alf Castle DO Work Phone: Hematology/Oncology Start: 11-26-2023 End: 11-26-2023 Patient encounter status Janett Feliciano MD, PhD Work Phone: [facility] Start: 11-26-2023 End: 11-26-2023 Telephone encounter Janett Feliciano MD, PhD Work Phone: Thoracic Clinic Comment on above: Orders (Stress test) Start: 11-22-2023 End: 11-22-2023 Telephone encounter Champ Garduno MD Work Phone: Pulmonary Medicine Comment on above: FMLA Paperwork Start: 11-22-2023 End: 11-22-2023 ambulatory CHAMP GARDUNO Facility:[facility] Start: 11-21-2023 End: 11-21-2023 ambulatory Champ Garduno MD Work Phone: Pulmonary Medicine Comment on above: Non-small cell cance r of right lung (HCC) (Primary Dx); Interstitial lung disease (HCC); Former light tobacco smoker; Hilar adenopathy Start: 11-21-2023 End: 11-21-2023 Telemedicine consultation with patient Champ Garduno MD Work Phone: Pulmonary Medicine Start: 11-17-2023 End: 11-19-2023 Telephone encounter Alf A Masci DO Work Phone: Hematology/Oncology Comment on above: Follow Up Start: 11-12-2023 End: 11-12-2023 Admission to establishment [facility] Pre Anesthesia Start: 11-12-2023 End: 11-12-2023 ambulatory [facility] Facility[facility] Start: 11-12-2023 End: 11-12-2023 Anesthesia consultation [facility] Pre Anesthesia Comment on above: Preop examination (P rimary Dx); Obesity, Class I, BMI 30-34.9; Interstitial lung disease (HCC); Former light tobacco smoker; Primary biliary cirrhosis (HCC); Sclerosing cholangitis; RODRIGO (obstructive sleep apnea); Cutaneous lupus erythematosus; Milton's esophagus with dysplasia Start: 11-12-2023 Encounter for other preprocedural examination CAMILO [facility] Start: 11-12-2023 End: 11-12-2023 Preprocedural examination done [facility] Work Phone: Start: 11-07-2023 End: 11-07-2023 Telephone encounter Rochelle Kong [facility] Pulmonary Medicine Start: 11-06-2023 End: 11-06-2023 ambulatory Champ Garduno MD Work Phone: Pulmonary Medicine Start: 11-01-2023 End: 11-01-2023 Telephone encounter Janett Feliciano MD, PhD Work Phone: Thoracic Clinic Comment on above: Thor[facility] Board (10/30/2023) Start: 10-30-2023 End: 10-30-2023 ambulatory [facility] Facility[facility] Start: 10-30-2023 End: 10-30-2023 Patient encounter procedure Tessie Kaufman APRN.DIRECTOR OF PURCHASING Work Phone: Thoracic Clinic Comment on above: Malignant neoplasm o f lower lobe of right lung (HCC) (Primary Dx) Start: 10-30-2023 End: 10-30-2023 Telemedicine consultation with patient Tessie Romina MARIEDIRECTOR OF PURCHASING Work Phone: Thoracic Clinic Start: 10-23-2023 ambulatory ALF CASTLE Facility[facility] Start: 10-23-2023 End: 10-23-2023 Subsequent hospital visit by physician [facility] Work Phone: [facility] Comment on above: Cancer of lower lobe of right lung (HCC) [C34.31] Start: 10-22-2023 End: 02-08-2024 Telephone encounter Allen Valdes MD Work Phone: Gastroenterology Start: 10-22-2023 End: 11-07-2023 ambulatory Alf Castle DO Work Phone: Hematology/Oncology Comment on above: Cancer of lower lobe of right lung (HCC) (Primary Dx) Start: 10-22-2023 End: 10-22-2023 Patient encounter procedure Alf Castle DO Work Phone: Hematology/Oncology Start: 10-17-2023 End: 10-17-2023 Patient encounter procedure Allen Valdes MD Work Phone: Gastroenterology Comment on above: Primary biliary chol angitis (HCC) (Primary Dx); Gastroesophageal reflux disease with esophagitis; 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 Start: 10-17-2023 End: 10-17-2023 ambulatory [facility] Start: 10-17-2023 End: 10-17-2023 ambulatory [facility] Start: 10-17-2023 End: 10-17-2023 Patient encounter procedure Eloise Montesinos MD Work Phone: Dermatology [place] Comment on above: Cutaneous lupus eryt hematosus (Primary Dx) Start: 10-05-2023 End: 10-11-2023 Telephone encounter Alf Castle DO Work Phone: Hematology/Oncology Comment on above: New Patient Start: 10-04-2023 End: 10-04-2023 ambulatory Pulm Lab [facility] Work Phone: PULM LAB [facility] Comment on above: Spirometry Start: 10-04-2023 End: 10-04-2023 Patient encounter procedure Pulm Lab [facility] Work Phone: [facility]UL[facility] LAB [facility] Comment on above: Obesity, Class I, BM I 30-34.9 (Primary Dx); Personal history of malignant neoplasm of bronchus and lung Start: 09-25-2023 End: 09-25-2023 Telephone encounter Janett Feliciano MD, PhD Work Phone: Thoracic Clinic Comment on above: Consult (RLL lung ca ncer) Start: 09-24-2023 End: 09-24-2023 Telephone encounter Ny Ross MD Work Phone: Pulmonary Medicine Comment on above: Results (MRI brain) Start: 09-21-2023 End: 09-21-2023 Subsequent hospital visit by physician Mri Radio [facility] (I-Stat/1.5t) Work Phone: Radiology Comment on above: Malignant neoplasm o f upper lobe of right lung (HCC) [C34.11] Start: 09-04-2023 ambulatory Ny Ross MD Work Phone: Pulmonary Medicine Comment on above: Result on biospy fro m 08/24/2023 Start: 09-04-2023 Telephone encounter Ny Ross MD Work Phone: [place] [facility] Adult Comment on above: Results (biopsy) Orders Start: 08-14-2023 Telephone encounter Ny Ross MD Work Phone: Pulmonary Medicine Start: 08-07-2023 Telephone encounter Ny Ross MD Work Phone: Pulmonary Medicine Comment on above: Results (EBUS) Start: 07-29-2023 Telephone encounter Allen Nur MD Work Phone: Gastroenterology Comment on above: Results Start: 07-28-2023 Chart abstracting [facility] Work Phone: Neurology Start: 07-25-2023 ambulatory Ny Ross MD Work Phone: Pulmonary Medicine Start: 07-25-2023 Patient encounter procedure Ny Ross MD Work Phone: Pulmonary Medicine Comment on above: Appointment for biop sy Start: 07-23-2023 Telephone encounter [address] J[address] [id number] Comment on above: Appointment (PreOp Gemini jefferson) Start: 07-20-2023 Patient encounter procedure Ayo Mann MD Work Phone: Pulmonary Medicine Comment on above: Bronchoscopy Schedul ing (Initial Bronch Request ) Start: 07-19-2023 Telephone encounter Ny Ross MD Work Phone: Pulmonary Medicine Comment on above: Results (PET scan) Start: 07-17-2023 ambulatory Ny Ross MD Work Phone: Pulmonary Medicine Comment on above: PET Scan Start: 07-16-2023 ambulatory Andreia L Elizabeth guzman RAILROAD MAINTENANCE CLERK.DIRECTOR OF PURCHASING Work Phone: [facility] Start: 07-16-2023 Patient encounter procedure Andreia Mas RAILROAD MAINTENANCE CLERK.DIRECTOR OF PURCHASING Work Phone: [facility] Start: 07-05-2023 End: 07-05-2023 ambulatory Pul[facility] Work [facility] Comment on above: Spirometry Start: 07-05-2023 End: 07-05-2023 Patient encounter procedure Pulm [facility] Work Phone: [facility] Comment on above: Interstitial lung di sease (HCC) (Primary Dx); Lung nodule; Snoring; Small airways disease; Cutaneous lupus erythematosus Start: 07-05-2023 End: 07-05-2023 Subsequent hospital visit by physician [facility] (I-Stat) Work Phone: Cat Scan Comment on above: Interstitial pulmona ry disease (HCC) [J84.9] Start: 06-22-2023 End: 06-22-2023 Subsequent hospital visit by physician Mri Radio [facility] (I-Stat/1.5t) Work Phone: Radiology Comment on above: Calculus of gallblad angelique without cholecystitis without obstruction [K80.20] Start: 05-20-2023 End: 02-08-2024 Telephone encounter Allen Valdes MD Work Phone: Gastroenterology Start: 04-04-2023 End: 02-08-2024 Chart abstracting Cristo De La Rosa Research Coordinator Work Phone: Rheumatology Comment on above: Research F/U (IRB#[id number], Lupus Registry, ID:[id number], F/U 1 ) Start: 04-04-2023 End: 04-04-2023 Patient encounter procedure Cristo De La Rosa Research Coordinator Work Phone: [facility] Work Phone: Comment on above: Other systemic lupus erythematosus with other organ involvement (HCC) (Primary Dx); Cutaneous lupus erythematosus Calculus of gallblad angelique without cholecystitis without obstruction (Primary Dx) Start: 01-21-2023 End: 12-26-2023 Telephone encounter Allen Valdes MD Work Phone: Gastroenterology Start: 01-14-2023 End: 12-26-2023 Telephone encounter Allen Valdes MD Work Phone: Gastroenterology Start: 01-11-2023 End: 01-11-2023 Patient encounter procedure Ivis Chang PA-C Work Phone: [facility] [place] Comment on above: Encounter for immuni zation (Primary Dx) Start: 01-01-2023 End: 12-26-2023 Telephone encounter Allen Valdes MD Work Phone: Gastroenterology Start: 01-01-2023 End: 01-01-2023 ambulatory Pulm [facility] Work Phone: [facility] Comment on above: Spirometry Start: 01-01-2023 End: 01-01-2023 Patient encounter procedure Pulm Lab [facility] Work Phone: [facility] Start: 12-26-2022 Documentation procedure Mammog hellen Coordinator [facility] Start: 12-26-2022 Letter encounter Mammography Coordinator [facility] Department Start: 12-26-2022 End: 12-26-2022 Subsequent hospital visit by physician [facility] Mob 2 Work Phone: Radiology Comment on above: Primary sclerosing c holangitis [K83.01] Start: 12-26-2022 End: 12-26-2022 Patient encounter status Screen Wstr [facility] Start: 12-26-2022 End: 12-26-2022 Subsequent hospital visit by physician Screen Mammo [facility] Mammogram Comment on above: Encounter for gyneco logical examination (general) (routine) without abnormal findings [Z01.419] Start: 11-26-2022 Telephone encounter Allen Nur MD Work Phone: Gastroenterology Start: 11-06-2022 Telephone encounter Allen Nur MD Work Phone: Gastroenterology Start: 10-25-2022 Refill Eloise Montesinos MD Work Phone: [facility] [place] Comment on above: Refill Request Start: 10-17-2022 End: 10-17-2022 Patient encounter procedure Eloise Montesinos MD Work Phone: [facility] [place] Comment on above: Discoid lupus erythe matosus (Primary Dx); Cutaneous lupus erythematosus Start: 10-07-2022 Telephone encounter Allen Nur MD Work Phone: Gastroenterology Start: 10-02-2022 Chart abstracting Cristo dee Research Coordinator Work Phone: Rheumatology Comment on above: Informed Consent (IR [id number]#[id number], Lupus Registry, ID: [id number], Baseline) Start: 10-02-2022 End: 10-02-2022 Patient encounter procedure Boaz A Miriam GRIFFIN Work Phone: Rheumatology Comment on above: Other systemic lupus erythematosus with other organ involvement (HCC) (Primary Dx) Start: 09-25-2022 End: 09-25-2022 Subsequent hospital visit by physician Xr [facility] Work Phone: Radiology Comment on above: Acute pain of right knee [M25.561] Start: 06-26-2022 End: 06-26-2022 Subsequent hospital visit by physician Bone Density [facility] Work Phone: Radiology Comment on above: Encounter for screen ing for osteoporosis [Z13.820] Start: 05-12-2022 Refill Arminda Blum APR N.DIRECTOR OF PURCHASING Work Phone: Gastroenterology Comment on above: Refill Request Start: 04-29-2022 Refill Arminda Blum APR N.DIRECTOR OF PURCHASING Work Phone: Gastroenterology Comment on above: Refill Request Start: 04-25-2022 Refill Eloise Montesinos MD Work Phone: [facility] [place] Comment on above: Refill Request Start: 03-22-2022 Telephone encounter Eloise collins MD Work Phone: [facility] [place] Comment on above: Results Start: 03-01-2022 End: 03-01-2022 Patient encounter procedure Raisa Latham MD Work Phone: OB/Gynecology Comment on above: Encounter for gyneco logical examination (general) (routine) without abnormal findings (Primary Dx); Encounter for screening for human papillomavirus (HPV); Pap smear for cervical cancer screening; Encounter for screening mammogram for breast cancer; Encounter for screening for osteoporosis; Asymptomatic postmenopausal status Start: 03-01-2022 End: 03-01-2022 Patient encounter status Raisa Latham MD Work Phone: OB/Gynecology Start: 01-30-2022 End: 01-30-2022 Patient encounter procedure Alexa Govea RAILROAD MAINTENANCE CLERK.DIRECTOR OF PURCHASING Work Phone: [facility] Comment on above: COVID (Primary Dx); Exposure to COVID-19 virus; Positive self-administered antigen test for COVID-19 Start: 12-30-2021 End: 12-30-2021 Patient encounter procedure Lindsey Hightower MD Work Phone: Pulmonary Medicine Comment on above: Interstitial pulmona ry disease (HCC) (Primary Dx); Lupus disease of lung (HCC) Start: 12-28-2021 End: 12-28-2021 ambulatory Respiratory Therapist [facility] Work Phone: Pulmonary Medicine Comment on above: Spirometry Start: 12-28-2021 End: 12-28-2021 Patient encounter procedure Respiratory Therapist [facility] Work Phone: [place] [facility] Start: 12-13-2021 Telephone encounter Julissa Dietz RN Pulmonary Medicine Comment on above: Appointment Start: 12-11-2021 ambulatory Ivis Jeffrey Jose JESUS-C Work Phone: [facility] [place] Comment on above: Tried to schedule ap pt for overnight sleep study Start: 12-05-2021 End: 12-05-2021 Orders Only Boaz Pineda DO Work Phone: Rheumatology Comment on above: Interstitial pulmona ry disease (HCC) (Primary Dx); UIP (usual interstitial pneumonitis) (HCC) Interstitial pulmona ry disease (HCC) [J84.9] Start: 11-28-2021 End: 11-28-2021 Patient encounter procedure Ivis Jeffrey Bernardo JESUS-Krysten Work Phone: [facility] [place] Comment on above: Wellness examination (Primary Dx); RODRIGO (obstructive sleep apnea); Nocturnal oxygen desaturation; Cutaneous lupus erythematosus; HYPERLIPIDEMIA MIXED; Fatigue, unspecified type; Milton's esophagus with dysplasia Start: 11-28-2021 End: 11-28-2021 Patient encounter status Ivis Jeffrey Bernardo JESUS-Krysten Work Phone: [facility] [place] Start: 11-14-2021 End: 11-14-2021 Subsequent hospital visit by physician Xr [facility] Radiology Comment on above: Chronic cough [R05.3 ] Start: 11-14-2021 End: 11-14-2021 Patient encounter procedure Boaz Pineda DO Work Phone: Rheumatology Comment on above: Cutaneous lupus eryt hematosus (Primary Dx); Chronic cough; Interstitial pulmonary disease (HCC); Wheezing; Need for vaccination Start: 11-14-2021 Documentation procedure Mammog hellen Coordinator [facility] Start: 11-14-2021 Letter encounter Mammography Coordinator [facility] Department Start: 11-09-2021 ambulatory Eloise Montesinos MD Work Phone: [facility] [place] Comment on above: [employer] prescri ption Start: 10-26-2021 End: 10-26-2021 Patient encounter procedure Allen Cartagena Baggott MD Work Phone: Gastroenterology Comment on above: Abnormal LFTs (Prima ry Dx); Primary biliary cholangitis (HCC) Start: 10-22-2021 Telephone encounter Camilo Jonas MD Work Phone: [address] [place] [address] Comment on above: Patient Question Start: 10-19-2021 End: 10-19-2021 Nursing evaluation of patient and report Mi Nurse Work Phone: [facility] [place] Comment on above: Need for vaccination (Primary Dx) Start: 10-17-2021 End: 10-17-2021 Patient encounter procedure Eloise Montesinos MD Work Phone: [facility] [place] Comment on above: Cutaneous lupus eryt hematosus (Primary Dx) Start: 10-05-2021 Telephone encounter Camilo Jonas MD Work Phone: [facility] Comment on above: Orders Start: 08-10-2021 Telephone encounter Allen Nur MD Work Phone: Gastroenterology Comment on above: Results Procedures Date Procedure Procedure Detail Performing Clinician Start: 09-18-2024 Dup-scan xtr veins c omplete bilateral study Tamy Hurley MD Work Phone: Start: 08-11-2024 Adult depression scr eening assessment Sidra Hurley RAILROAD MAINTENANCE CLERK.DIRECTOR OF PURCHASING Work Phone: Start: 08-05-2024 Radiologic exam ches t 2 views Suzanne Nolasco RAILROAD MAINTENANCE CLERK.DIRECTOR OF PURCHASING Work Phone: Start: 07-03-2024 Radiologic exam ches t 2 views Tessie Kaufman RAILROAD MAINTENANCE CLERK.DIRECTOR OF PURCHASING Work Phone: Start: 07-02-2024 Liver elastography w /o imag w/i&r Allen Valdes MD Work Phone: Start: 04-28-2024 Us abdominal real ti me w/image limited Alf Castle DO Work Phone: Start: 04-15-2024 Antibody screen CAMILO JONAS Comment on above: Order Comment: Speci men Type: BLOOD SPECIMENOrdering Facility: [facility] Address: [address] [place] [address] Performed By: #### T SCR30 ####[facility] BANKCLIA [id number] [facility] [address] Start: 03-18-2024 Antibody screen CAMILO JONAS Comment on above: Order Comment: Speci men Type: BLOOD SPECIMEN Ordering Facility: [facility] Address: [address] [place] [address] Performed By: #### T SCR30 #### [facility] CLIA [id number] Start: 03-18-2024 Radiologic exam ches t 2 views Janett Feliciano MD, PhD Work Phone: Start: 03-12-2024 Urnls dip stick/tabl et rgnt auto w/o microscopy Palomo Lal MD Work Phone: Start: 03-06-2024 Echocardiography SADIE Ivis PRITESH Start: 03-06-2024 End: 03-06-2024 Pulmonary stress testing Janett Marsh, PhD Work Phone: Start: 02-12-2024 Ct abdomen & pelvis w/o contrast material Alf Castle DO Work Phone: Start: 01-23-2024 Comprehensive metabo lic panel Alf Castle DO Work Phone: Start: 12-31-2023 Screening mammograph y bi 2-view breast inc cad Raisa Latham MD Work Phone: Start: 11-29-2023 Myocardial spect mul tiple studies Janett Feliciano MD, PhD Work Phone: Start: 10-23-2023 Ct thorax w/contrast material Alf Castle DO Work Phone: Start: 10-04-2023 Pulmonary stress testing Janett Feliciano MD, PhD Work Phone: Start: 09-21-2023 Mri brain brain stem w/o w/contrast material Ny Brittany Brown MD Work Phone: Start: 07-05-2023 Brncdilat rspse spmt ry pre&post-brncdilat admn Samegeorgie Hightower MD Work Phone: Start: 06-22-2023 3d rendering w/interp&postproc diff work station Allen Valdes MD Work Phone: Start: 06-22-2023 Mri abdomen w/o & w/ contrast material Allen Valdes MD Work Phone: Start: 01-11-2023 RSV VACCINE, BIVALEN T (ABRYSVO) M Wojciech Chang PA-C Work Phone: Start: 01-01-2023 Co diffusing capacity S ameep Darren SHUKLA Work Phone: Start: 12-26-2022 Us abdominal real ti me w/image limited Allen Valdes MD Work Phone: Start: 12-26-2022 Screening mammograph y bi 2-view breast inc cad Raisa Latham MD Work Phone: Start: 11-03-2022 Lipid 1996 panel - S sabiha or Plasma Allen Valdes MD Work Phone: Start: 09-25-2022 Radiologic exam knee complete 4/more views Camilo Jonas MD Work Phone: Start: 06-26-2022 Dxa bone density marva dy 1/> sites axial skel Raisa Latham MD Work Phone: Start: 01-30-2022 COVID WITH FLUA+B, ROUTINE Alexa Becca RAILROAD MAINTENANCE CLERK.DIRECTOR OF PURCHASING Work Phone: Start: 12-28-2021 Plethysmography lung volumes w/wo airway resist Boaz Pineda DO Work Phone: Start: 12-05-2021 Ct thorax w/o contra st material Boaz Pineda DO Work Phone: Start: 11-14-2021 INFLUENZA VACCINE QUADRIVALENT 6 MO - 64 YRS IM Boaz Parekh Miriam DO Work Phone: Start: 11-14-2021 Mammography Boaz Cuellar kasandra DO Work Phone: Start: 10-19-2021 PFIZER-BIONTECH COVI D-19 BIVALENT BOOSTER VACCINE, AGE 12+ YR Camilo Jonas MD Work Phone: Start: 01-18-2021 Mammography Allen stanton MD Work Phone: Start: 11-20-2020 Lipid 1996 panel - S sabiha or Plasma Eloise Montesinos MD Work Phone: Start: 02-19-2020 Adult depression scr eening assessment Allen Valdes MD Work Phone: Start: 06-29-2016 Colonoscopy Allen stanton MD Work Phone: Plan of Treatment Date Care Activity Detail Author Start: 11-04-2027 Lipid 1996 panel - Serum or Plasma Lipid Screening [facility] Start: 11-04-2027 Lipid panel Lipid Screening [facility] Start: 10-20-2027 Urine microalbumin profile [facility] Start: 09-12-2027 Diabetes Screening Diabetes Screening [facility] Start: 08-22-2027 Diabetes Screening Diabetes Screening [facility] Start: 07-31-2027 Diabetes Screening Diabetes Screening [facility] Start: 07-11-2027 Diabetes Screening Diabetes Screening [facility] Start: 06-20-2027 Diabetes Screening Diabetes Screening [facility] Start: 05-31-2027 Diabetes Screening Diabetes Screening [facility] Start: 05-22-2027 Diabetes Screening Diabetes Screening [facility] Start: 05-09-2027 Diabetes Screening Diabetes Screening [facility] Start: 05-04-2027 Diabetes Screening Diabetes Screening [facility] Start: 04-26-2027 Diabetes Screening Diabetes Screening [facility] Start: 04-16-2027 Diabetes Screening Diabetes Screening [facility] Start: 04-12-2027 Diabetes Screening Diabetes Screening [facility] Start: 04-04-2027 Diabetes Screening Diabetes Screening [facility] Start: 04-01-2027 Diabetes Screening Diabetes Screening [facility] Start: 03-28-2027 Diabetes Screening Diabetes Screening [facility] Start: 03-25-2027 Diabetes Screening Diabetes Screening [facility] Start: 03-20-2027 Diabetes Screening Diabetes Screening [facility] Start: 03-18-2027 Diabetes Screening Diabetes Screening [facility] Start: 03-12-2027 Diabetes Screening Diabetes Screening [facility] Start: 03-10-2027 Diabetes Screening Diabetes Screening [facility] Start: 03-05-2027 Diabetes Screening Diabetes Screening [facility] Start: 03-03-2027 Diabetes Screening Diabetes Screening [facility] Start: 03-01-2027 HPV TESTING HPV TESTING [facility] Start: 03-01-2027 PAP TESTING PAP TESTING [facility] Start: 03-01-2027 Screening for malignant neoplasm of cervix [facility] Start: 02-10-2027 Diabetes Screening Diabetes Screening [facility] Start: 01-24-2027 Diabetes Screening Diabetes Screening [facility] Start: 01-22-2027 Diabetes Screening Diabetes Screening [facility] Start: 01-20-2027 Diabetes Screening Diabetes Screening [facility] Start: 01-17-2027 Diabetes Screening Diabetes Screening [facility] Start: 12-27-2026 Diabetes Screening Diabetes Screening [facility] Start: 12-23-2026 Diabetes Screening Diabetes Screening [facility] Start: 12-16-2026 Diabetes Screening Diabetes Screening [facility] Start: 12-09-2026 Diabetes Screening Diabetes Screening [facility] Start: 07-27-2026 Diabetes Screening Diabetes Screening [facility] Start: 06-29-2026 Colonoscopy COLONOSCOPY [facility] Start: 06-29-2026 COLORECTAL CANCER SCREENING COLORECTAL CANCER SCREENING [facility] Start: 06-29-2026 Screening for malignant neoplasm of colon [facility] Start: 05-11-2026 Diabetes Screening Diabetes Screening [facility] Start: 04-04-2026 Diabetes Screening Diabetes Screening [facility] Start: 01-13-2026 Diabetes Screening Diabetes Screening [facility] Start: 11-20-2025 Lipid 1996 panel - Serum or Plasma Lipid Screening [facility] Start: 11-20-2025 LIPID SCREEN LIPID SCREEN [facility] Start: 11-03-2025 Diabetes Screening Diabetes Screening [facility] Start: 10-02-2025 DIABETES SCREEN DIABETES SCREEN [facility] Start: 10-02-2025 Diabetes Screening Diabetes Screening [facility] Start: 09-11-2025 Creatinine measurement Serum Creatinine [facility] Start: 08-21-2025 Creatinine measurement Serum Creatinine [facility] Start: 08-11-2025 Annual PCP Team Chronic Disease Visit Annual PCP Team Chronic Disease Visit [facility] Start: 08-11-2025 Anxiety Screening Anxiety Screening [facility] Start: 08-11-2025 Depression Screening Depression Screening [facility] Start: 07-30-2025 Creatinine measurement Serum Creatinine [facility] Start: 07-10-2025 Creatinine measurement Serum Creatinine [facility] Start: 06-19-2025 Complete blood count Hemoglobin/Hematocrit [facility] Start: 06-19-2025 Creatinine measurement Serum Creatinine [facility] Start: 06-04-2025 Annual PCP Team Chronic Disease Visit Annual PCP Team Chronic Disease Visit [facility] Start: 05-30-2025 Complete blood count Hemoglobin/Hematocrit [facility] Start: 05-30-2025 Creatinine measurement Serum Creatinine [facility] Start: 05-21-2025 Complete blood count Hemoglobin/Hematocrit [facility] Start: 05-21-2025 Creatinine measurement Serum Creatinine [facility] Start: 05-08-2025 Creatinine measurement Serum Creatinine [facility] Start: 05-03-2025 Complete blood count Hemoglobin/Hematocrit [facility] Start: 05-03-2025 Creatinine measurement Serum Creatinine [facility] Start: 04-29-2025 DIABETES SCREEN DIABETES SCREEN [facility] Start: 04-10-2025 Annual PCP Team Chronic Disease Visit Annual PCP Team Chronic Disease Visit [facility] Start: 02-13-2025 DIABETES SCREEN DIABETES SCREEN [facility] Start: 02-11-2025 End: 02-11-2025 Patient encounter procedure 02/11/2025 4:00 PM EST Office Visit [facility] [address] [place] [address] Camilo Jonas MD [address] [place] [address] 6 month exam [facility] Comment on above: 6 month exam Start: 02-10-2025 End: 02-10-2025 Follow-up encounter 02/10/2025 11:00 AM EST [facility] Gastroenterology [address] [address] Allen Valdes MD [address] [place], [place] [id number] follow up Gastroenterology Comment on above: follow up Start: 12-31-2024 End: 12-31-2024 Patient encounter procedure 12/31/2024 7:10 AM EST Appointment Mammogram [address] [place] [address] Mammogram Screening/Pend order Mammogram Comment on above: Mammogram Screening/Pend order Start: 12-30-2024 Screening for malignant neoplasm of breast Mammogram Screening [facility] Start: 12-05-2024 End: 12-05-2024 ambulatory 12/05/2024 2:00 PM EDT Infusion Center Hematology/Oncology [address] [place] [address] Q3WK KEYTRUDA/LAB&OV 12/04* Hematology/Oncology Comment on above: Q3WK KEYTRUDA/LAB&OV 12/04* Start: 12-04-2024 End: 12-04-2024 ambulatory [facility] Laboratory Comment on above: (SO)CBC/CMP(S)/TSH/T4/CORTISOL* OV/LAB TODAY/CHEMO 1 * MASCI Start: 11-14-2024 End: 11-14-2024 ambulatory 11/14/2024 2:00 PM EDT Infusion Center Hematology/Oncology [address] [place] [address] Q3WK KEYTRUDA/LAB&OV 11/13* Hematology/Oncology Comment on above: Q3WK KEYTRUDA/LAB&OV 11/13* Start: 11-13-2024 End: 11-13-2024 ambulatory [facility] Comment on above: (SO)CBC/CMP(S)/TSH/T4/CORTISOL* OV/LAB TODAY/CHEMO 1 * Start: 10-24-2024 End: 10-24-2024 ambulatory 10/24/2024 2:00 PM EDT Infusion Center Hematology/Oncology [address] [place] [address] Q3WK KEYTRUDA/LAB&OV 10/23* Hematology/Oncology Comment on above: Q3WK KEYTRUDA/LAB&OV 10/23* Start: 10-24-2024 DIABETES SCREEN DIABETES SCREEN [facility] Start: 10-23-2024 End: 10-23-2024 ambulatory [facility] Comment on above: (SO)CBC/CMP(S)/TSH/T4/CORTISOL* OV/LAB TODAY/CHEMO * Start: 10-20-2024 End: 10-20-2024 Patient encounter procedure 10/20/2024 7:40 AM EDT Office Visit [facility] [place] [address] [place] [phone] Eloise Montesinos MD [address] [place], [place] [id number] 1 year f/u [facility] [place] Comment on above: 1 year f/u Start: 10-07-2024 End: 10-07-2024 Patient encounter procedure Pulmonary Medicine Comment on above: 1 month f/u (Dr. Ross un available) Start: 10-07-2024 End: 10-07-2024 ambulatory [facility]UL[facility] Comment on above: Exertional dyspnea [R06.09]; Interstitia l lung disease (HCC) [J84.9] Start: 10-06-2024 Influenza [facility] Start: 10-03-2024 End: 10-03-2024 ambulatory 10/03/2024 2:00 PM EDT Infusion Center Hematology/Oncology [address] [place] [address] Q3WK KEYTRUDA/LAB&OV 10/02* Hematology/Oncology Comment on above: Q3WK KEYTRUDA/LAB&OV 10/02* Start: 10-02-2024 End: 10-02-2024 ambulatory [facility] Comment on above: (SO)CBC/CMP(S)/TSH/T4/CORTISOL* OV/LAB TODAY/CHEMO * Start: 09-28-2024 End: 12-28-2024 25-hydroxyvitamin D3 [Mass/volume] in Serum or Plasma VITAMIN D 25 HYDROXY Lab Routine Hypercalcemia Expected: 09/28/2024, Expires: 12/28/2024 [facility] Comment on above: Expected: 09/28/2024, Expires: Start: 09-18-2024 End: 09-18-2024 Patient encounter procedure Cat Scan Comment on above: Non-small cell cancer of right lung (HCC ) [C34.91] Edema, unspecified t ype [R60.9] Start: 09-15-2024 End: 12-15-2024 DNA ANTIBODY DS BLD [facility] Work Phone: Comment on above: Expected: 09/15/2024, Expires: Start: 09-15-2024 End: 12-14-2024 MISC SEND OUT TST 1 [facility] Work Phone: Comment on above: Expected: 09/15/2024, Expires: Start: 09-15-2024 End: 12-15-2024 Protein/Creatinine [Mass Ratio] in Urine [facility] Comment on above: Expected: 09/15/2024, Expires: Start: 09-15-2024 End: 09-15-2024 Patient encounter procedure 09/15/2024 9:30 AM EDT Office Visit Rheumatology [address] [place] [address] Boaz Pineda, [address], [phone] [place] [address] [facility] Comment on above: [facility] Start: 09-12-2024 End: 09-12-2024 ambulatory Hematology/Oncology Comment on above: Q3WK KEYTRUDA/LAB&OV 08/21* Q3WK KEYTRUDA/LAB&OV 09/11* Start: 09-11-2024 End: 09-11-2024 ambulatory [place] [facility] Laboratory Comment on above: (SO)CBC/CMP(S)/TSH/T4/CORTISOL* OV/LAB TODAY/CHEMO * OV/LAB TODAY/CHEMO * MESSAGE LEFT TO INFO RM OF PROV CHANGE Start: 09-10-2024 End: 09-10-2024 Patient encounter procedure 09/10/2024 9:30 AM EDT Office Visit Rheumatology [address] [address] Boaz Pineda, [address], [phone] [place] [address] [facility] Comment on above: [facility] Start: 09-03-2024 End: 09-03-2024 Patient encounter procedure 09/03/2024 9:30 AM EDT Office Visit Pulmonary Medicine [address] [place] [address] Elizabeth Ledesma APRN.DIRECTOR OF PURCHASING [address] [place] [address] Follow up with Livier Swanson, for follow up right lower lobectomy 05/01/24, Shortness of Breath Pulmonary Medicine Comment on above: Follow up with Livier Swanson, for follo w up right lower lobectomy 05/01/24, Shortness of Breath Start: 08-22-2024 End: 08-22-2024 ambulatory 08/22/2024 2:00 PM EDT Infusion Center Hematology/Oncology [address] [place] [address] Q3WK KEYTRUDA/LAB&OV 08/21* Hematology/Oncology Comment on above: Q3WK KEYTRUDA/LAB&OV 08/21* Start: 08-22-2024 End: 11-21-2024 Comprehensive metabolic 2000 panel - Serum or Plasma COMPREHENSIVE METABOLIC PANEL Lab Routine Non-small cell cancer of right lung (HCC) Expected: 08/22/2024, Expires: 11/21/2024 [facility] Work Phone: Comment on above: Expected: 08/22/2024, Expires: Start: 08-22-2024 End: 11-21-2024 Thyrotropin [Units/volume] in Serum or Plasma THYROID STIMULATING HORMONE Lab Routine Non-small cell cancer of right lung (HCC) Expected: 08/22/2024, Expires: 11/21/2024 [facility] Comment on above: Expected: 08/22/2024, Expires: Start: 08-21-2024 End: 08-21-2024 ambulatory [place] [facility] Laboratory Comment on above: CBC/CMP/TSH/T4/CORTISOL OV/LAB TODAY/CHEMO * (SO)CBC/CMP(S)/TSH/T 4/CORTISOL* Start: 08-12-2024 End: 11-11-2024 Thyrotropin [Units/volume] in Serum or Plasma THYROID STIMULATING HORMONE Lab Routine Hypothyroidism, acquired Expected: 08/12/2024, Expires: 11/11/2024 [facility] Work Phone: Comment on above: Expected: 08/12/2024, Expires: Start: 08-12-2024 End: 08-12-2024 Patient encounter procedure 08/12/2024 10:00 AM EDT Office Visit Kidney Medicine [address] [place] [phone] Palomo Joseph MD [address] [place] [address] Follow up 3 months Kidney Medicine Comment on above: Follow up 3 months Start: 08-12-2024 End: 08-12-2024 ambulatory 08/12/2024 8:00 AM EDT Results Only [place] [facility] [address] [place] [place] [facility] [place] [address] [place] [facility] Start: 08-11-2024 End: 08-11-2024 Patient encounter procedure 08/11/2024 9:20 AM EDT Office Visit [facility] [place] [address] [place] [address] Sidra Hurley APRN.DIRECTOR OF PURCHASING [address] [place] [address] 4 mo follow up [facility] [place] Comment on above: 4 mo follow up Start: 08-06-2024 End: 08-06-2024 Patient encounter procedure 08/06/2024 8:00 AM EDT [facility] Thoracic Clinic [address] [place] [address] Suzanne Nolasco, RAILROAD MAINTENANCE CLERK.DIRECTOR OF PURCHASING [address] [place] [address] PHONE VISIT [facility] Clinic Comment on above: PHONE VISIT Start: 08-05-2024 DIABETES SCREEN DIABETES SCREEN [facility] Start: 08-05-2024 End: 08-05-2024 Follow-up encounter 08/05/2024 11:30 AM EDT [facility] Gastroenterology [address] [address] Allen Valdes MD [address] [place] [address] follow up for fibroscan Gastroenterology Comment on above: follow up for fibroscan Start: 08-05-2024 End: 08-05-2024 Patient encounter procedure 08/05/2024 10:30 AM EDT Appointment Radiology [address] [place] [address] CXR Radiology Comment on above: CXR Start: 08-01-2024 End: 08-01-2024 ambulatory 08/01/2024 2:00 PM EDT Infusion Center Hematology/Oncology [address] [place] [address] Q3WK KEYTRUDA/LAB&OV 07/30* Hematology/Oncology Comment on above: Q3WK KEYTRUDA/LAB&OV 07/30* Start: 07-30-2024 End: 07-30-2024 ambulatory [facility] Comment on above: CBC/CMP/TSH/T4/CORTISOL OV/LAB TODAY/CHEMO * (SO)CBC/CMP(S)/TSH/T 4/CORTISOL* Start: 07-11-2024 End: 07-11-2024 ambulatory Hematology/Oncology Comment on above: Q3WK KEYTRUDA* Q3WK KEYTRUDA/LAB&OV 07/10* Start: 07-10-2024 End: 07-10-2024 ambulatory Hematology/Oncology Comment on above: OV/LAB TODAY/CHEMO 07/11* CBC/CMP/TSH/T4/CORTI NELLY (SO)CBC/CMP(S)/TSH/T 4/CORTISOL* Start: 07-04-2024 End: 07-04-2024 Patient encounter procedure Thoracic Clinic Comment on above: PHONE VISIT Start: 07-03-2024 End: 07-03-2024 Patient encounter procedure 07/03/2024 10:00 AM EDT Appointment Radiology [address] [place] [address] cxr Radiology Comment on above: cxr Start: 07-02-2024 End: 07-02-2024 ambulatory 07/02/2024 9:00 AM EDT Procedure Gastroenterology [address] [id number] 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] Gastroenterology Comment on above: 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] Start: 06-28-2024 End: 09-27-2024 Parathyrin.intact [Mass/volume] in Serum or Plasma PTH INTACT Lab Routine Hypercalcemia Expected: 06/28/2024, Expires: 09/27/2024 [facility] Comment on above: Expected: 06/28/2024, Expires: Start: 06-20-2024 End: 06-20-2024 ambulatory Hematology/Oncology Comment on above: Q3WK KEYTRUDA* Q3WK KEYTRUDA/LAB&OV 06/19* Non-small cell cance r of right lung (HCC) (Primary Dx) Start: 06-19-2024 End: 06-19-2024 ambulatory [facility] Comment on above: CBC/CMP/TSH/T4/CORTISOL OV/EARLY LABS OV/LAB TODAY/CHEMO * Start: 06-18-2024 End: 06-18-2024 Patient encounter procedure 06/18/2024 10:30 AM EDT Office Visit Gastroenterology [address] [address] Allen Valdes MD [address] [place] [address] follow up on MRI results Gastroenterology Comment on above: follow up on MRI results Start: 06-10-2024 End: 09-09-2024 Thyrotropin [Units/volume] in Serum or Plasma THYROID STIMULATING HORMONE Lab Routine Hypothyroidism, acquired Expected: 06/10/2024, Expires: 09/09/2024 [facility] Comment on above: Expected: 06/10/2024, Expires: Start: 06-10-2024 End: 06-10-2024 ambulatory 06/10/2024 7:30 AM EDT Results Only [place] [facility] [address] [place] [address] [facility] Start: 06-02-2024 Covid-19 Vaccine (9 - Moderna risk season) Covid-19 Vaccine (9 - Moderna risk ) [facility] Start: 05-30-2024 End: 05-30-2024 ambulatory [facility] Comment on above: CBC/CMP* RESTART Q3WK KEYTRUD A/EARLY LABS* CBC/CMP/RESTART Q3WK KEYTRUDA* Start: 05-26-2024 End: 05-26-2024 ambulatory 05/26/2024 8:00 AM EDT [facility] Hematology/Oncology [address] [place] [address] Q3WK CISP/ALIMTA/KEYTRUDA/LA B&OV AUTH EXP 12/10/24* Hematology/Oncology Comment on above: Q3WK CISP/ALIMTA/KEYTRUDA/LAB&OV 05/22/AU TH EXP 12/10/24* Start: 05-22-2024 End: 05-22-2024 ambulatory [facility] Comment on above: (SO)CBC/CMP(S)/MG(S)* OV/LAB EARLY/CHEMO * masci Start: 05-22-2024 End: 05-22-2024 Patient encounter procedure 05/22/2024 10:30 AM EDT [facility] [address] [place], [place] [id number] WegasTessie APRN.DIRECTOR OF PURCHASING [address] [place] [address] Malignant neoplasm of lower lobe of right lung Thoracic Clinic Comment on above: Malignant neoplasm of lower lobe of righ t lung Start: 05-21-2024 End: 05-21-2024 ambulatory [facility] Comment on above: CBC/CMP/Mg CBC/CMP/Mg/OV/SURG * Start: 05-09-2024 End: 05-09-2024 Patient encounter procedure Radiology Comment on above: cxr Non small cell lung cancer Start: 05-05-2024 End: 05-05-2024 ambulatory 05/05/2024 8:00 AM EDT [facility] Hematology/Oncology [address] [place] [address] Q3WK CISP/ALIMTA/KEYTRUDA/LA B&OV 05/02/AUTH EXP 12/10/24* Hematology/Oncology Comment on above: Q3WK CISP/ALIMTA/KEYTRUDA/LAB&OV 05/02/AU TH EXP 12/10/24* Start: 05-02-2024 End: 05-02-2024 ambulatory [facility] Comment on above: (SO)CBC/CMP(S)/MG(S)* OV/LAB EARLY/CHEMO * masci OV/SURG 04/17?* Start: 05-01-2024 End: 05-01-2024 Admission to same day surgery center Admitting Comment on above: ROBOTIC THORACOSCOPY; RLL lung resection LOBECTOMY, TOTAL OR SEGMENTAL Start: 05-01-2024 Subsequent hospital visit by physician Admitting Comment on above: Malignant neoplasm of lower lobe of righ t lung (HCC) [C34.31], Pre-procedure lab exam [Z01.812] Start: 05-01-2024 End: 05-01-2024 Thoracoscopy w/lobectomy single lobe [facility] & VAS Start: 05-01-2024 End: 05-01-2024 Patient encounter procedure 05/01/2024 8:00 AM EDT Office Visit [facility] [address] [address] Jamie Soares, [address] [place] [address] Acute kidney injury (HCC) [N17.9] Kidney Medicine [facility] Comment on above: Acute kidney injury (HCC) [N17.9] Start: 05-01-2024 End: 05-01-2024 Admission to same day surgery center 05/01/2024 6:30 AM EDT - 05/01/2024 10:54 AM EDT Surgery Admitting [address] [place] [address] Janett Feliciano MD, PhD [address] [facility] [employer] [address] [address] ROBOTIC THORACOSCOPY; RLL lung resection LOBECTOMY, TOTAL OR SEGMENTAL Admitting Comment on above: ROBOTIC THORACOSCOPY; RLL lung resection LOBECTOMY, TOTAL OR SEGMENTAL Start: 05-01-2024 Subsequent hospital visit by physician 05/01/2024 6:30 AM EDT Hospital Encounter Admitting [address] [place] [address] Janett Feliciano MD, PhD [address] [facility] [place] [employer] [address] [address] Malignant neoplasm of lower lobe of right lung (HCC) [C34.31], Pre-procedure lab exam [Z01.812] Admitting Comment on above: Malignant neoplasm of lower lobe of righ t lung (HCC) [C34.31], Pre-procedure lab exam [Z01.812] Start: 05-01-2024 End: 05-01-2024 Thoracoscopy w/lobectomy single lobe ROBOTIC THORACOSCOPY; LOBECTOMY, TOTAL OR SEGMENTAL Malignant neoplasm of lower lobe of right lung (HCC) Pre-procedure lab exam 05/01/2024 6:30 AM EDT [facility] & VAS Start: 04-28-2024 End: 04-28-2024 Patient encounter procedure 04/28/2024 1:00 PM EDT [facility]ointment Radiology [address] [facility] [place] [address] Elevated LFTs [R79.89] Radiology Comment on above: Elevated LFTs [R79.89] Start: 04-28-2024 End: 04-28-2024 ambulatory 04/28/2024 10:00 AM EDT Infusion Center Hematology/Oncology [address] [place] [address] IV MAG-Per 's request phone note 04/26/24* Hematology/Oncology Comment on above: IV MAG-Per 's request phone note 04/26/24* Start: 04-25-2024 End: 04-25-2024 ambulatory 04/25/2024 9:00 AM EDT Results Only [facility] [address] [place] [address] BMP(S)* [facility] Comment on above: BMP(S)* Start: 04-23-2024 End: 04-23-2024 Patient encounter procedure 04/23/2024 11:30 AM EDT Office Visit Gastroenterology [address] [address] Allen Valdes MD [address] [place] [address] follow up on MRI results Gastroenterology Comment on above: follow up on MRI results Start: 04-18-2024 End: 04-18-2024 ambulatory 04/18/2024 7:45 AM EDT Results Only [facility] [address] [place] [address] CMP [place] [facility] Comment on above: CMP Start: 04-17-2024 End: 04-17-2024 Admission to same day surgery center 04/17/2024 3:36 PM EDT - 04/17/2024 8:00 PM EDT Surgery Admitting [address] [place] [address] Janett Feliciano MD, PhD [address] [facility] [address] [place] [address] ROBOTIC THORACOSCOPY; RLL lung resection LOBECTOMY, TOTAL OR SEGMENTAL Admitting Comment on above: ROBOTIC THORACOSCOPY; RLL lung resection LOBECTOMY, TOTAL OR SEGMENTAL Start: 04-17-2024 Subsequent hospital visit by physician 04/17/2024 3:36 PM EDT Hospital Encounter Admitting [address] [place] [address] Janett Feliciano MD, PhD [address] [facility] [address] [place] [address] Malignant neoplasm of lower lobe of right lung (HCC) [C34.31], Pre-procedure lab exam [Z01.812] Admitting Comment on above: Malignant neoplasm of lower lobe of righ t lung (HCC) [C34.31], Pre-procedure lab exam [Z01.812] Start: 04-17-2024 End: 04-17-2024 Thoracoscopy w/lobectomy single lobe ROBOTIC THORACOSCOPY; LOBECTOMY, TOTAL OR SEGMENTAL Malignant neoplasm of lower lobe of right lung (HCC) Pre-procedure lab exam 04/17/2024 3:[address] & VAS Start: 04-16-2024 End: 04-16-2024 Patient encounter procedure 04/16/2024 10:30 AM EDT Office Visit Gastroenterology [address] [address] Allen Valdes MD [address] [place] [address] follow up on MRI results Gastroenterology Comment on above: follow up on MRI results Start: 04-15-2024 End: 04-15-2024 Patient encounter procedure 04/15/2024 1:40 PM EDT Appointment Cat Scan [address] [place], [place] [id number] Non-small cell cancer of right lung (HCC) [C34.91] Cat Scan Comment on above: Non-small cell cancer of right lung (HCC ) [C34.91] Start: 04-14-2024 End: 04-14-2024 ambulatory 04/14/2024 8:00 AM EDT Infusion Center Hematology/Oncology [address] [place] [address] Q3WK CISP/ALIMTA/KEYTRUDA/LA B&OV 04/11/AUTH EXP 12/10/24* Hematology/Oncology Comment on above: Q3WK CISP/ALIMTA/KEYTRUDA/LAB&OV 04/11/AUT H EXP 12/10/24* Start: 04-11-2024 End: 04-11-2024 [facility] Comment on above: (SO)CBC/CMP(S)/MG(S)* OV/LAB EARLY/CHEMO * masci OV/LAB EARLY* masci Start: 04-10-2024 End: 07-10-2024 Basic metabolic 2000 panel - Serum or Plasma BASIC METABOLIC PANEL Lab Routine Stage 3a chronic kidney disease (HCC) Expected: 04/10/2024, Expires: 07/10/2024 [facility] Comment on above: Expected: 04/10/2024, Expires: Start: 04-10-2024 End: 07-10-2024 Magnesium [Mass/volume] in Serum or Plasma MAGNESIUM Lab Routine Stage 3a chronic kidney disease (HCC) Low magnesium level Expected: 04/10/2024, Expires: 07/10/2024 [facility] Work Phone: Comment on above: Expected: 04/10/2024, Expires: Start: 04-10-2024 End: 04-10-2024 Patient encounter procedure 04/10/2024 11:30 AM EST Office Visit Gastroenterology [address] [address] Allen Valdes MD [address] [place] [address] follow up on MRI results Gastroenterology Comment on above: follow up on MRI results Start: 04-10-2024 End: 04-10-2024 Patient encounter procedure 04/10/2024 9:20 AM EST Office Visit [facility] [place] [address] [place] [address] Sidra Hurley APRN.DIRECTOR OF PURCHASING [address] [place] [address] Post hosp f/u [facility] [place] Comment on above: Post hosp f/u Start: 04-01-2024 End: 04-01-2024 ambulatory 04/01/2024 8:45 AM EST Results Only [facility] [address] [place] [address] [facility] Start: 03-31-2024 End: 06-30-2024 CALCITONIN BLOOD CALCITONIN BLOOD Lab Routine Hypercalcemia Expected: 03/31/2024, Expires: 06/30/2024 [facility] Comment on above: Expected: 03/31/2024, Expires: Start: 03-31-2024 End: 06-30-2024 Calcitriol [Mass/volume] in Serum or Plasma VITAMIN D1 25-DIHYDR Lab Routine Hypercalcemia Expected: 03/31/2024, Expires: 06/30/2024 [facility] Comment on above: Expected: 03/31/2024, Expires: Start: 03-31-2024 End: 06-30-2024 Calcium.ionized [Moles/volume] in Blood CALCIUM, IONIZED Lab Routine Hypercalcemia Expected: 03/31/2024, Expires: 06/30/2024 [facility] Work Phone: Comment on above: Expected: 03/31/2024, Expires: Start: 03-31-2024 End: 06-30-2024 Parathyrin related protein [Moles/volume] in Serum or Plasma PTH RELATED PEPTIDE Lab Routine Hypercalcemia Expected: 03/31/2024, Expires: 06/30/2024 [facility] Comment on above: Expected: 03/31/2024, Expires: Start: 03-31-2024 End: 06-30-2024 Renal function 2000 panel - Serum or Plasma RENAL FUNCTION PANEL Lab Routine Hypercalcemia Expected: 03/31/2024, Expires: 06/30/2024 [facility] Comment on above: Expected: 03/31/2024, Expires: Start: 03-31-2024 End: 03-31-2024 Admission to same day surgery center 03/31/2024 7:03 AM EST - 03/31/2024 11:27 AM EST Surgery Admitting [address] [place] [address] Janett Feliciano MD, PhD [address] [facility] [place] [address] ROBOTIC THORACOSCOPY; RLL lung resection LOBECTOMY, TOTAL OR SEGMENTAL Admitting Comment on above: ROBOTIC THORACOSCOPY; RLL lung resection LOBECTOMY, TOTAL OR SEGMENTAL Start: 03-31-2024 Subsequent hospital visit by physician 03/31/2024 7:03 AM EST Hospital Encounter Admitting [address] [place] [address] Janett Feliciano MD, PhD [address] [place] [facility] [place] [address] Malignant neoplasm of lower lobe of right lung (HCC) [C34.31], Pre-procedure lab exam [Z01.812] Admitting Comment on above: Malignant neoplasm of lower lobe of righ t lung (HCC) [C34.31], Pre-procedure lab exam [Z01.812] Start: 03-31-2024 End: 03-31-2024 Thoracoscopy w/lobectomy single lobe ROBOTIC THORACOSCOPY; LOBECTOMY, TOTAL OR SEGMENTAL Malignant neoplasm of lower lobe of right lung (HCC) Pre-procedure lab exam 03/31/2024 7:[address] & VAS Start: 03-28-2024 End: 03-28-2024 ambulatory [facility] Laboratory Comment on above: BMP(S)/MAG(S) 2ND Start: 03-25-2024 End: 06-24-2024 Magnesium [Mass/volume] in Serum or Plasma MAGNESIUM Lab STAT Non-small cell cancer of right lung (HCC) Hypomagnesemia Expected: 03/25/2024, Expires: 06/24/2024 [facility] Work Phone: Comment on above: Expected: 03/25/2024, Expires: Start: 03-25-2024 End: 03-25-2024 ambulatory [facility] Comment on above: BMP/MAG 2ND Start: 03-24-2024 End: 03-24-2024 ambulatory Hematology/Oncology Comment on above: Q3WK CISP/ALIMTA/KEYTRUDA/LAB&OV 03/21/AU TH EXP 12/10/24* Q3WK KEYTRUDA/LAB&OV 03/21/AUTH EXP 12/10/24* Start: 03-21-2024 End: 03-21-2024 ambulatory [facility] Comment on above: (SO)CBC(S)/CMP(S)MG(S)* OV/LAB EARLY/CHEMO * masci (SO)CBC/CMP(S)/MG(S) * Hypomagnesemia (Prim stevenson Dx); Non-small cell cancer of right lung (HCC) Start: 03-20-2024 End: 03-20-2024 ambulatory [facility] Comment on above: BMP BMP(S)* Start: 03-18-2024 End: 06-17-2024 aPTT in Platelet poor plasma by Coagulation assay ACTIVATED PARTIAL THROMBOPLASTIN TIME Lab STAT Malignant neoplasm of lower lobe of right lung (HCC) Pre-procedure lab exam Expected: 03/18/2024, Expires: 06/17/2024 [facility] Comment on above: Expected: 03/18/2024, Expires: Start: 03-18-2024 End: 06-17-2024 CBC W Auto Differential panel - Blood COMPLETE BLOOD COUNT AND DIFFERENTIAL Lab STAT Malignant neoplasm of lower lobe of right lung (HCC) Pre-procedure lab exam Expected: 03/18/2024, Expires: 06/17/2024 [facility] Comment on above: Expected: 03/18/2024, Expires: Start: 03-18-2024 End: 06-17-2024 Comprehensive metabolic 2000 panel - Serum or Plasma COMPREHENSIVE METABOLIC PANEL Lab STAT Malignant neoplasm of lower lobe of right lung (HCC) Pre-procedure lab exam Expected: 03/18/2024, Expires: 06/17/2024 [facility] Comment on above: Expected: 03/18/2024, Expires: Start: 03-18-2024 End: 06-17-2024 CONFIRM BLOOD TYPE CONFIRM BLOOD TYPE Blood Bank STAT Malignant neoplasm of lower lobe of right lung (HCC) Pre-procedure lab exam Expected: 03/18/2024, Expires: 06/17/2024 [facility] Comment on above: Expected: 03/18/2024, Expires: Start: 03-18-2024 End: 06-17-2024 PT panel - Platelet poor plasma by Coagulation assay PROTHROMBIN TIME Lab STAT Malignant neoplasm of lower lobe of right lung (HCC) Pre-procedure lab exam Expected: 03/18/2024, Expires: 06/17/2024 [facility] Comment on above: Expected: 03/18/2024, Expires: Start: 03-18-2024 End: 06-17-2024 STAPHYLOCOCCUS AUREUS & MRSA SCREEN, PCR, NASAL STAPHYLOCOCCUS AUREUS & MRSA SCREEN, PCR, NASAL Lab STAT Malignant neoplasm of lower lobe of right lung (HCC) Pre-procedure lab exam Expected: 03/18/2024, Expires: 06/17/2024 [facility] Comment on above: Expected: 03/18/2024, Expires: Start: 03-18-2024 End: 06-17-2024 TYPE AND SCREEN,30 DAY TYPE AND SCREEN,30 DAY Blood Bank STAT Malignant neoplasm of lower lobe of right lung (HCC) Pre-procedure lab exam Expected: 03/18/2024, Expires: 06/17/2024 [facility] Comment on above: Expected: 03/18/2024, Expires: Start: 03-18-2024 End: 06-17-2024 URINALYSIS, DIPSTICK ONLY URINALYSIS, DIPSTICK ONLY Lab STAT Malignant neoplasm of lower lobe of right lung (HCC) Pre-procedure lab exam Expected: 03/18/2024, Expires: 06/17/2024 [facility] Comment on above: Expected: 03/18/2024, Expires: Start: 03-18-2024 End: 04-04-2025 XR Chest PA and Lateral XR CHEST 2V FRONTAL/LAT Radiology STAT Malignant neoplasm of lower lobe of right lung (HCC) Pre-procedure lab exam Expected: 03/18/2024, Expires: 04/04/2025 [facility] Work Phone: Comment on above: Expected: 03/18/2024, Expires: 6 Start: 03-18-2024 End: 03-18-2024 Anesthesia consultation 03/18/2024 1:00 PM EST PAT Pre Anesthesia [address] [facility] [address] [place] [address] 5, [facility] [place] [address] [place] [address] -OR- SM 03/31/24 Pre Anesthesia Comment on above: -OR- SM 03/31/24 Start: 03-18-2024 End: 03-18-2024 ambulatory 03/18/2024 11:15 AM EST Results Only [place] [facility] [address] [place] [address] pre-op [place] Comment on above: pre-op Start: 03-18-2024 End: 03-18-2024 Patient encounter procedure [facility] Comment on above: pre-op -OR- SM 03/31/24 Start: 03-10-2024 End: 06-09-2024 DNA ANTIBODY DS BLD [facility] Work Phone: Comment on above: Expected: 03/10/2024, Expires: Start: 03-10-2024 End: 03-28-2024 MISC SEND OUT TST 1 [facility] Work Phone: Comment on above: Expected: 03/10/2024, Expires: 5 Start: 03-10-2024 End: 06-09-2024 Protein/Creatinine [Mass Ratio] in Urine [facility] Comment on above: Expected: 03/10/2024, Expires: Start: 03-10-2024 End: 03-10-2024 Patient encounter procedure 03/10/2024 11:00 AM EST Office Visit Rheumatology [address] [address] Boaz Pineda, [address] [place] [address] [facility] Comment on above: [facility] Start: 03-09-2024 End: 06-08-2024 Comprehensive metabolic 2000 panel - Serum or Plasma COMPREHENSIVE METABOLIC PANEL Lab Routine Non-small cell cancer of right lung (HCC) Expected: 03/09/2024, Expires: 06/08/2024 [facility] Work Phone: Comment on above: Expected: 03/09/2024, Expires: Start: 03-06-2024 End: 03-06-2024 Patient encounter procedure 03/06/2024 2:30 PM EST Office Visit Cardiology [address] [phone] Malignant neoplasm of lower lobe of right lung (HCC) [C34.31] Cardiology Comment on above: Malignant neoplasm of lower lobe of righ t lung (HCC) [C34.31] Start: 03-06-2024 End: 03-06-2024 Patient encounter procedure Pulmonary Medicine Comment on above: Malignant neoplasm of lower lobe of righ t lung Start: 03-05-2024 End: 03-05-2024 ambulatory [facility] Laboratory Comment on above: BMP/MAG* 2ND FLOOR BMP(S)/MAG(S)* Start: 03-03-2024 End: 06-02-2024 Calcium.ionized [Moles/volume] in Blood CALCIUM, IONIZED Lab Routine Non-small cell cancer of right lung (HCC) Hypomagnesemia CRISTINO (acute kidney injury) (HCC) Hypercalcemia Expected: 03/03/2024, Expires: 06/02/2024 [facility] Comment on above: Expected: 03/03/2024, Expires: Start: 03-03-2024 End: 06-02-2024 Parathyrin.intact [Mass/volume] in Serum or Plasma [facility] Comment on above: Expected: 03/03/2024, Expires: Start: 03-03-2024 End: 06-02-2024 Urinalysis complete panel - Urine [facility] Work Phone: Comment on above: Expected: 03/03/2024, Expires: Start: 03-03-2024 End: 03-03-2024 ambulatory Hematology/Oncology Comment on above: Q3WK CISP/ALIMTA/KEYTRUDA/LAB&OV TH EXP 12/10/24* (SO)CBC/CMP(S)/MG(S) * Q3WK CISP/ALIMTA/MARTIN TRUDA/AUTH EXP 12/10/24* Start: 02-29-2024 End: 02-29-2024 ambulatory [facility] Comment on above: (SO)CBC(S)/CMP(S)MG(S) OV/LAB EARLY/CHEMO 1 03/23* masci (SO)CBC/CMP(S)/MG(S) * OV/LAB EARLY/CHEMO * Start: 02-20-2024 End: 02-20-2024 ambulatory 02/20/2024 9:50 AM EST Visit (SP) Office Hematology/Oncology [address], [place] [phone] Alf Castle DO [address] [place], [place] [id number] OV/CT 02/11* Hematology/Oncology Comment on above: OV/CT 02/11* Start: 02-12-2024 End: 02-12-2024 Patient encounter procedure Cat Scan Comment on above: Non-small cell cancer of right lung (HCC ) [C34.91] Start: 02-12-2024 End: 02-12-2024 ambulatory [facility] Comment on above: CREATINE HYDRATION FOR CT* Start: 02-11-2024 End: 02-11-2024 ambulatory Hematology/Oncology Comment on above: Q3WK CISP/ALIMTA/KEYTRUDA/LAB&OV 02/07/AUT H EXP 12/10/24* (SO)CBC(S)/CMP(S)MG( S) Q3WK CISP/ALIMTA/MARTIN TRUDA/EARLY LABS/AUTH EXP 12/10/24* (SO)CBC/CMP(S)/MG(S) * Start: 02-08-2024 End: 02-08-2024 ambulatory [facility] Comment on above: (SO)CBC(S)/CMP(S)MG(S) OV/LAB EARLY/CHEMO * masci Start: 02-04-2024 End: 02-04-2024 ambulatory 02/04/2024 10:00 AM EST Results Only [facility] [address] [place] [address] D15 CMP/MAG [facility] Comment on above: D15 CMP/MAG Start: 01-28-2024 Covid-19 Vaccine () Covid-19 Vaccine () [facility] Start: 01-28-2024 End: 01-28-2024 ambulatory 01/28/2024 10:00 AM EST Results Only [facility] [address] [place] [address] D8 CMP/MAG [facility] Comment on above: D8 CMP/MAG Start: 01-25-2024 End: 01-25-2024 ambulatory [facility] Comment on above: (SO)CBC(S)/(SO)CMP(S)* HYDRATION AND MAG* Start: 01-23-2024 End: 04-23-2024 Basic metabolic 2000 panel - Serum or Plasma BASIC METABOLIC PANEL Lab STAT Non-small cell cancer of right lung (HCC) Expected: 01/23/2024, Expires: 04/23/2024 [facility] Work Phone: Comment on above: Expected: 01/23/2024, Expires: Start: 01-23-2024 End: 01-23-2024 ambulatory [facility] Comment on above: (SO)CBC(S)/CMP(S)MG(S) REDRAW LABS/Q3WK CIS P/ALIMTA/LAB&OV 01/17/AUTH EXP 12/10/24* BMP/REDRAW LABS/Q3WK CISP/ALIMTA/LAB&OV 01/17/AUTH EXP 12/10/24* Start: 01-21-2024 End: 01-21-2024 ambulatory Hematology/Oncology Comment on above: CBC/CMP/MG(S)Q3WK CISP/ALIMTA/KEYTRUDA/L AB&OV 01/17/AUTH EXP?* CBC/CMP/MG(S)Q3WK CI SP/ALIMTA/KEYTRUDA/LAB&OV 01/17/AUTH EXP 12/10/24* Q3WK CISP/ALIMTA/MARTIN TRUDA/LAB&OV 01/17/AUTH EXP 12/10/24* (SO)CBC(S)/CMP(S)MG( S) Start: 01-18-2024 End: 01-18-2024 [facility] Comment on above: CBC/CMP(S)MG(S) CBC/CMP(S)MG(S)OV/CH EMO 01/20* masci (SO)CBC(S)/CMP(S)MG( S) (SO)CBC/CMP(S)MG(S)O V/CHEMO 01/20* masci Start: 01-15-2024 End: 01-15-2024 ambulatory [facility] Comment on above: CMP/MAG D15 CISP/ALIMTA/KEYT RUDA/LAB EARLY/AUTH EXP?* NO LATER THAN 230 W/LAB CBC/CMP/MAG CBC/CMP/MG(S)D15 CIS P/ALIMTA/KEYTRUDA/AUTH EXP?* D15 CMP/MAG Start: 01-09-2024 End: 01-09-2024 ambulatory [facility] Comment on above: CMP/MAG D8 CISP/ALIMTA/KEYTR UDA/LAB EARLY/AUTH EXP?* NO LATER THAN 230 W/LAB CBC/CMP/MAG CBC/CMP/MG(S)D8 CISP /ALIMTA/KEYTRUDA/AUTH EXP?* D8 CMP/MAG Start: 01-07-2024 End: 01-07-2024 Patient encounter procedure 01/07/2024 12:00 PM EST Office Visit Rheumatology [address] [address] Boaz Pineda DO [address], [id number] [place] [address] 9m SLE fu per miriam Rheumatology Comment on above: 9m SLE fu per miriam Start: 01-01-2024 End: 01-01-2024 ambulatory Hematology/Oncology Comment on above: Q3WK CISP/ALIMTA/KEYTRUDA/LAB&OV 12/27/A UTH EXP?* NO LATER THAN 230 W/LAB CBC/CMP/MG(S)Q3WK CI SP/ALIMTA/KEYTRUDA/LAB&OV 12/27/AUTH EXP?* CBC/CMP/MG(S)Q3WK CI SP/ALIMTA/KEYTRUDA/LAB&OV 12/27/AUTH EXP 12/10/24* Q3WK CISP/ALIMTA/MARTIN TRUDA/LAB&OV 12/27/AUTH EXP 12/10/24* Start: 12-31-2023 End: 12-31-2023 Patient encounter procedure 12/31/2023 7:30 AM EST Appointment Mammogram [address] [place] [address] Mammogram Start: 12-28-2023 End: 12-28-2023 ambulatory [facility] Laboratory Comment on above: CBC OV/LAB EARLY/CHEMO 03/01* masci CBC/CMP(S)MG(S) CBC/CMP(S)MG(S)OV/CH EMO 12/31* masci (SO)CBC/CMP(S)MG(S) (SO)CBC/CMP(S)MG(S)O V/CHEMO 12/31* masci Start: 12-27-2023 Mammography Mammogram Screening [facility] Start: 12-27-2023 Screening for malignant neoplasm of breast Mammogram Screening [facility] Start: 12-24-2023 End: 12-24-2023 ambulatory [facility] Laboratory Comment on above: CMP/MAG D15 CISP/ALIMTA/KEYT RUDA/LAB EARLY/AUTH EXP?* NO LATER THAN 230 W/LAB CBC/CMP/MAG CBC/CMP/MG(S)D15 CIS P/ALIMTA/KEYTRUDA/LAB EARLY/AUTH EXP?* D15 CMP/MAG D15 (SO)CMP(S)/MAG(S ) Start: 12-20-2023 End: 12-20-2023 ambulatory 12/20/2023 8:00 AM EST Results Only [facility] [address] [place] [address] BMP(S)* [facility] Comment on above: BMP(S)* Start: 12-18-2023 End: 03-18-2024 Basic metabolic 2000 panel - Serum or Plasma BASIC METABOLIC PANEL Lab STAT Non-small cell cancer of right lung (HCC) Expected: 12/18/2023, Expires: 03/18/2024 [facility] Work Phone: Comment on above: Expected: 12/18/2023, Expires: Start: 12-17-2023 End: 12-17-2023 ambulatory [facility] Comment on above: CMP/MAG D8 CISP/ALIMTA/KEYTR UDA/LAB EARLY/AUTH EXP?* NO LATER THAN 230 W/LAB CBC/CMP/MAG CBC/CMP/MG(S)D8 CISP /ALIMTA/KEYTRUDA/LAB EARLY/AUTH EXP?* D8 CMP/MAG Start: 12-10-2023 End: 12-10-2023 ambulatory Hematology/Oncology Comment on above: START Q3WK CISP/ALIMTA/KEYTRUDA/LAB&OV 1 02/05/AUTH EXP?* NO LATER THAN 230 W/LAB START Q3WK CISP/ALIM TA/KEYTRUDA/LAB&OV 12/06/AUTH EXP?* START Q3WK CISP/ALIM TA/KEYTRUDA/LAB&OV 12/06/AUTH EXP 12/10/24* Start: 12-07-2023 End: 12-07-2023 ambulatory [facility] [place] [facility] Laboratory Comment on above: CBC OV/LAB EARLY/CHEMO 1 02/18* masci Start: 12-03-2023 End: 12-03-2023 ambulatory 12/03/2023 10:30 AM EDT Infusion Center Hematology/Oncology [address] [place] [address] Wstr, Scaler [facility] [address] [place] [address] CHEMO ED -CISPLATIN/ALIMTA/KEYTR UDA* Hematology/Oncology Comment on above: CHEMO ED -CISPLATIN/ALIMTA/KEYTRUDA* Start: 11-29-2023 End: 11-29-2023 Patient encounter procedure Molecular Imaging Comment on above: Malignant neoplasm of lower lobe of righ t lung (HCC) [C34.31] Start: 11-27-2023 End: 11-27-2023 ambulatory 11/27/2023 8:50 AM EDT Visit (SP) Office Hematology/Oncology [address] [place] [address] Alf Castle DO [address] [place] [address] OV/BRONCHOSCOPY 11/21* Hematology/Oncology Comment on above: OV/BRONCHOSCOPY 11/21* Start: 11-22-2023 End: 11-22-2023 Admission to same day surgery center 11/22/2023 10:30 AM EDT - 11/22/2023 11:30 AM EDT Surgery [facility] [address] [place] [address] Champ Garduno MD [address] [place] [address] BRONCHOSCOPY FLEXIBLE ADULT [facility] Comment on above: BRONCHOSCOPY FLEXIBLE ADULT Start: 11-22-2023 End: 11-22-2023 [facility] incl fluor gdnce dx w/cell washg spx BRONCHOSCOPY FLEXIBLE ADULT Bronchiolar disease 11/22/2023 10:30 AM EDT [facility] Start: 11-22-2023 Subsequent hospital visit by physician 11/22/2023 10:30 AM EDT Hospital Encounter [facility] [address] [place] [address] Champ Garduno MD [address] [id number] Bronchiolar disease [J98.09] [facility] Comment on above: Bronchiolar disease [J98.09] Start: 11-22-2023 End: 11-22-2023 Admission to same day surgery center [facility] Comment on above: BRONCHOSCOPY FLEXIBLE ADULT Start: 11-22-2023 End: 11-22-2023 [facility] incl fluor gdnce dx w/cell washg spx [facility] GI Start: 11-22-2023 Subsequent hospital visit by physician [facility] Comment on above: Bronchiolar disease [J98.09] Start: 11-21-2023 End: 11-21-2023 ambulatory 11/21/2023 9:00 AM EDT [facility] Pulmonary Medicine [address] [id number] Champ Garduno MD [address] [id number] pre-op Pulmonary Medicine Comment on above: pre-op Start: 10-30-2023 End: 10-30-2023 Patient encounter procedure 10/30/2023 4:00 PM EDT [facility] Thoracic Clinic [address] [place] [address] Tessie Kaufman, RAILROAD MAINTENANCE CLERK.DIRECTOR OF PURCHASING [address] [place] [address] Malignant neoplasm of lower lobe of right lung Thoracic Clinic Comment on above: Malignant neoplasm of lower lobe of righ t lung Start: 10-23-2023 End: 10-23-2023 Admission to same day surgery center 10/23/2023 1:20 PM EDT [facility] Thoracic Surgery [address] [place], [place] [id number] Janett Feliciano MD, PhD [address] [place] [address] PHONE VISIT Thoracic Surgery Comment on above: PHONE VISIT Start: 10-23-2023 End: 10-23-2023 Patient encounter procedure 10/23/2023 8:00 AM EDT Appointment [facility] [address] [place] [address] CCN approved per Admin [facility] Comment on above: CCN approved per Admin Start: 10-22-2023 End: 10-22-2023 ambulatory 10/22/2023 1:30 PM EDT Visit (SP) Office Hematology/Oncology [address] [place], [place] [phone] Alf Castle DO [address] [place], [place] [id number] 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 DR FELICIANO* first avail Hematology/Oncology Comment on above: 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 PROV DR FELICIANO* fi rst avail Start: 10-17-2023 End: 10-17-2023 Patient encounter procedure 10/17/2023 11:30 AM EDT Office Visit Gastroenterology [address] [address] Allen Valdes MD [address] [place] [address] follow up on MRI results Gastroenterology Comment on above: follow up on MRI results Start: 10-17-2023 End: 10-17-2023 Patient encounter procedure 10/17/2023 7:45 AM EDT Office Visit D[facility]at[facility] [place] [address] [place] [id number] Eloise Montesinos MD [address] [place], [place] [id number] 1 year follow up [facility] Comment on above: 1 year follow up Start: 10-07-2023 Covid-19 Vaccine ( season) Covid-19 Vaccine ( season) [facility] Start: 10-07-2023 Influenza vaccination Influenza Vaccine (#1) [facility] Start: 10-03-2023 End: 10-03-2023 Patient encounter procedure 10/03/2023 3:30 PM EDT Office Visit Pulmonary Medicine [address] [place] [address] Elizabeth Ledesma APRN.DIRECTOR OF PURCHASING [address] [place] [address] Follow up after MRI of head Pulmonary Medicine Comment on above: Follow up after MRI of head Start: 09-21-2023 End: 09-21-2023 Patient encounter procedure 09/21/2023 10:00 AM EDT Appointment Radiology [address] [place] [address] Malignant neoplasm of upper lobe of right lung (HCC) [C34.11] Radiology Comment on above: Malignant neoplasm of upper lobe of righ t lung (HCC) [C34.11] Start: 08-03-2023 End: 08-03-2023 Patient encounter procedure 08/03/2023 10:00 AM EDT Office Visit Neurology [address] [place] [address] Snoring [R06.83] Neurology Comment on above: Snoring [R06.83] Start: 07-31-2023 End: 07-31-2023 Admission to same day surgery center 07/31/2023 2:00 PM EDT - 07/31/2023 4:00 PM EDT Surgery Admitting [address] [address] Tello David MD, PhD [address] [place] [address] BRONCHOSCOPY FLEXIBLE ADULT Admitting Comment on above: BRONCHOSCOPY FLEXIBLE ADULT Start: 07-31-2023 End: 07-31[facility] PULM LAB H23 Start: 07-31-2023 Subsequent hospital visit by physician 07/31/2023 2:00 PM EDT Hospital Encounter Admitting [address] [address] Tello David MD, PhD [address] [place] [address] Bronchiolar disease [J98.09] Admitting Comment on above: Bronchiolar disease [J98.09] Start: 07-31-2023 End: 07-31-2023 ambulatory 07/31/2023 11:30 AM EDT Results Only Cardiology [address] [place] [address] PreOp Testing Cardiology Comment on above: PreOp Testing Start: 07-28-2023 End: 07-28-2023 ambulatory 07/28/2023 7:45 AM EDT Results Only [facility] [address] [place] [address] [facility] Start: 07-20-2023 End: 07-19-2024 Basic metabolic 2000 panel - Serum or Plasma BASIC METABOLIC PANEL Lab STAT Lung nodule Expected: 07/20/2023, Expires: 07/19/2024 [facility] Comment on above: Expected: 07/20/2023, Expires: Start: 07-20-2023 End: 07-19-2024 CBC W Auto Differential panel - Blood COMPLETE BLOOD COUNT AND DIFFERENTIAL Lab STAT Lung nodule Expected: 07/20/2023, Expires: 07/19/2024 [facility] Work Phone: Comment on above: Expected: 07/20/2023, Expires: Start: 07-20-2023 End: 07-20-2023 Patient encounter procedure 07/20/2023 10:00 AM EDT Office Visit Neurology [address] [place] [address] Snoring [R06.83] Neurology Comment on above: Snoring [R06.83] Start: 07-05-2023 End: 07-05-2023 ambulatory PULM LAB [facility] Comment on above: Interstitial pulmonary disease (HCC) [J8 4.9] Start: 07-05-2023 End: 07-05-2023 Patient encounter procedure Cat Scan Comment on above: Interstitial pulmonary disease (HCC) [J8 4.9] Patient of Dr. Bobbi Hightower. Patient wants a doctor closer to home. New pt ILD / 6 mo f/u / staff msg Start: 05-28-2023 End: 08-27-2023 Comprehensive metabolic 2000 panel - Serum or Plasma COMP METABOLIC PANEL Lab Routine Primary sclerosing cholangitis Expected: 05/28/2023, Expires: 08/27/2023 [facility] Work Phone: Comment on above: Expected: 05/28/2023, Expires: Start: 04-04-2023 End: 07-04-2023 DNA ANTIBODY DS BLD [facility] Work Phone: Comment on above: Expected: 04/04/2023, Expires: Start: 04-04-2023 End: 05-04-2023 MISC SEND OUT TST 1 [facility] Work Phone: Comment on above: Expected: 04/04/2023, Expires: Start: 03-01-2023 Screening for malignant neoplasm of cervix Cervical Cancer Screening [facility] Start: 02-05-2023 Behavioral Health Screening Behavioral Health Screening [facility] Start: 02-05-2023 Depression Assessment Depression Assessment [facility] Start: 01-21-2023 End: 04-22-2023 Comprehensive metabolic 2000 panel - Serum or Plasma COMP METABOLIC PANEL Lab Routine Abnormal LFTs Expected: 01/21/2023, Expires: 04/22/2023 [facility] Work Phone: Comment on above: Expected: 01/21/2023, Expires: Start: 11-14-2022 Mammography [facility] Start: 10-06-2022 Covid-19 Vaccine () Covid-19 Vaccine () [facility] Start: 10-06-2022 Influenza vaccination [facility] Start: 10-02-2022 End: 11-03-2022 CLINICAL TRIAL DRAW [facility] Work Phone: Comment on above: Expected: 10/02/2022, Expires: 3 Start: 10-02-2022 End: 12-02-2022 DNA ANTIBODY DS BLD [facility] Work Phone: Comment on above: Expected: 10/02/2022, Expires: 3 Start: 10-02-2022 End: 12-02-2022 Urinalysis complete panel - Urine [facility] Work Phone: Comment on above: Expected: 10/02/2022, Expires: 3 Start: 06-29-2022 End: 01-29-2023 LUNG DIFFUSION CAPACITY (DLCO) LUNG DIFFUSION CAPACITY (DLCO) PFT Routine Interstitial pulmonary disease (HCC) Expected: 06/29/2022, Expires: 01/29/2023 [facility] Work Phone: Comment on above: Expected: 06/29/2022, Expires: 3 Start: 06-29-2022 End: 01-29-2023 SPIROMETRY WITH DILATOR IF OBSTRUCTED SPIROMETRY WITH DILATOR IF OBSTRUCTED PFT Routine Interstitial pulmonary disease (HCC) Expected: 06/29/2022, Expires: 01/29/2023 [facility] Work Phone: Comment on above: Expected: 06/29/2022, Expires: 3 Start: 02-18-2022 COVID-19 VACCINE (5 - Booster for Moderna series) COVID-19 VACCINE (5 - Booster for Moderna series) [facility] Start: 02-05-2022 DEPRESSION ASSESSMENT DEPRESSION ASSESSMENT [facility] Start: 01-18-2022 Mammography MAMMOGRAM [facility] Start: 12-27-2021 HPV TESTING HPV TESTING [facility] Start: 12-27-2021 PAP TESTING PAP TESTING [facility] Start: 11-14-2021 End: 01-14-2022 Complement C3 [Mass/volume] in Serum or Plasma [facility] Work Phone: Comment on above: Expected: 11/14/2021, Expires: 2 Start: 11-14-2021 End: 01-14-2022 Complement C4 [Mass/volume] in Serum or Plasma [facility] Work Phone: Comment on above: Expected: 11/14/2021, Expires: 2 Start: 11-14-2021 End: 01-14-2022 DNA ANTIBODY DS BLD [facility] Work Phone: Comment on above: Expected: 11/14/2021, Expires: 2 Start: 11-14-2021 End: 01-14-2022 Protein/Creatinine [Mass Ratio] in Urine [facility] Work Phone: Comment on above: Expected: 11/14/2021, Expires: 2 Start: 11-14-2021 End: 01-14-2022 Urinalysis complete panel - Urine [facility] Work Phone: Comment on above: Expected: 11/14/2021, Expires: 2 Start: 10-06-2021 Influenza vaccination INFLUENZA (#1) [facility] Start: 10-04-2021 COVID-19 VACCINE (5 - Booster for Moderna series) COVID-19 VACCINE (5 - Booster for Moderna series) [facility] Start: 2021 RSV Vaccine (1 - 1-dose 60+ series) RSV Vaccine (1 - 1-dose 60+ series) [facility] Start: 02-18-2021 Adult depression screening assessment DEPRESSION SCREENING [facility] Start: 02-05-2021 DEPRESSION ASSESSMENT DEPRESSION ASSESSMENT [facility] Start: 2006 COLOGUARD (FIT-DNA) COLOGUARD (FIT-DNA) [facility] Start: [address] COLONOGRAPHY [facility] Start: 2006 FECAL OCCULT BLOOD FECAL OCCULT BLOOD [facility] Start: 2006 Screening for malignant neoplasm of colon [facility] Start: 2006 SIGMOIDOSCOPY SIGMOIDOSCOPY [facility] Start: 02-25-2000 PNEUMOCOCCAL (2 - PCV) PNEUMOCOCCAL (2 - PCV) [facility] Start: 05-16-1979 Anxiety Screening Anxiety Screening [facility] Start: 05-16-1979 Depression Screening Depression Screening [facility] Comprehensive metabo lic 2000 panel - Serum or Plasma COMPREHENSIVE METABOLIC PANEL Lab Routine Non-small cell cancer of right lung (HCC) 03/10/2024 11:44 AM EST [facility] End: 02-22-2025 CT Abdomen and Pelvis WO contrast CT ABD/PEL WO IVCON Radiology Routine Non-small cell cancer of right lung (HCC) 1 Occurrences starting 01/24/2024 until 02/22/2025 [facility] Comment on above: 1 Occurrences starting 01/24/2024 until 02/22/2025 CT Abdomen and Pelvi s WO contrast CT ABD/PEL WO IVCON Radiology Routine Non-small cell cancer of right lung (HCC) 09/18/2024 11:18 AM EDT [facility] End: 11-20-2024 CT Chest W contrast IV CT CHEST W IVCON Radiology STAT Cancer of lower lobe of right lung (HCC) 1 Occurrences starting 10/22/2023 until 11/20/2024 [facility] Work Phone: Comment on above: 1 Occurrences starting 10/22/2023 until 11/20/2024 CT Chest WO contrast CT CHEST WO IVCON Radiology Routine Interstitial pulmonary disease (HCC) 07/05/2023 9:24 AM EDT [facility] Work Phone: End: 02-22-2025 CT Chest WO contrast CT CHEST WO IVCON Radiology Routine Non-small cell cancer of right lung (HCC) 1 Occurrences starting 01/24/2024 until 02/22/2025 [facility] Work Phone: Comment on above: 1 Occurrences starting 01/24/2024 until 02/22/2025 CT Chest WO contrast CT CHEST WO IVCON Radiology Routine Non-small cell cancer of right lung (HCC) 02/12/2024 12:08 PM EST [facility] Work Phone: End: 05-11-2025 CT Chest WO contrast CT CHEST WO IVCON Radiology Routine Non-small cell cancer of right lung (HCC) 1 Occurrences starting 04/11/2024 until 05/11/2025 [facility] Work Phone: Comment on above: 1 Occurrences starting 04/11/2024 until 05/11/2025 CT Chest WO contrast CT CHEST WO IVCON Radiology Routine Non-small cell cancer of right lung (HCC) 04/15/2024 2:14 PM EDT [facility] Work Phone: CT Chest WO contrast CT CHEST WO IVCON Radiology Routine Non-small cell cancer of right lung (HCC) 09/18/2024 11:18 AM EDT [facility] Work Phone: End: 12-14-2022 Ct thorax w/o contrast material CT CHEST WO IVCON Radiology Routine Interstitial pulmonary disease (HCC) Wheezing 1 Occurrences starting 11/14/2021 until 12/14/2022 [facility] Work Phone: Comment on above: 1 Occurrences starting 11/14/2021 until 12/14/2022 End: 03-31-2023 DXA-AXIAL SKELETON DXA-AXIAL SKELETON Radiology Routine Encounter for screening for osteoporosis Asymptomatic postmenopausal status 1 Occurrences starting 03/01/2022 until 03/31/2023 [facility] Work Phone: Comment on above: 1 Occurrences starting 03/01/2022 until 03/31/2023 End: 07-19-2024 ECG COMPLETE ECG COMPLETE ECG STAT Lung nodule 1 Occurrences starting 07/20/2023 until 07/19/2024 [facility] Comment on above: 1 Occurrences starting 07/20/2023 until 07/19/2024 End: 03-04-2025 ECG COMPLETE ECG COMPLETE ECG STAT Malignant neoplasm of lower lobe of right lung (HCC) Pre-procedure lab exam 1 Occurrences starting 03/04/2024 until 03/04/2025 [facility] Comment on above: 1 Occurrences starting 03/04/2024 until 03/04/2025 End: 02-19-2025 Echocardiography ECHO Cardiology STAT Malignant neoplasm of lower lobe of right lung (HCC) 1 Occurrences starting 02/20/2024 until 02/19/2025 [facility] Comment on above: 1 Occurrences starting 02/20/2024 until 02/19/2025 End: 07-04-2024 HOME SLEEP APNEA TEST (HSAT) HOME SLEEP APNEA TEST (HSAT) Procedures Routine Snoring 1 Occurrences starting 07/05/2023 until 07/04/2024 [facility] Work Phone: Comment on above: 1 Occurrences starting 07/05/2023 until 07/04/2024 Liver ultrasound attenuation by transient elastography DDI VIBRATION CONTROLLED TRANSIENT ELASTOGRAPHY (VCTE) Endoscopy Routine Primary biliary cirrhosis (HCC) Ordered: 06/18/2024 [facility] Work Phone: Comment on above: Ordered: 06/18/2024 End: 01-04-2023 LUNG DIFFUSION CAPACITY (DLCO) LUNG DIFFUSION CAPACITY (DLCO) PFT Routine Interstitial pulmonary disease (HCC) 1 Occurrences starting 12/05/2021 until 01/04/2023 [facility] Work Phone: Comment on above: 1 Occurrences starting 12/05/2021 until 01/04/2023 LUNG DIFFUSION CAPAC ITY (DLCO) LUNG DIFFUSION CAPACITY (DLCO) PFT Routine Interstitial pulmonary disease (HCC) 12/28/2021 1:57 PM [facility] [employer] Work Phone: LUNG DIFFUSION CAPAC ITY (DLCO) LUNG DIFFUSION CAPACITY (DLCO) PFT Routine Interstitial pulmonary disease (HCC) Lupus disease of lung (HCC) 01/01/2023 8:14 AM [facility] [employer] Work Phone: End: 03-22-2025 LUNG DIFFUSION CAPACITY (DLCO) LUNG DIFFUSION CAPACITY (DLCO) PFT STAT Malignant neoplasm of lower lobe of right lung (HCC) 1 Occurrences starting 02/20/2024 until 03/22/2025 [facility] Work Phone: Comment on above: 1 Occurrences starting 02/20/2024 until 03/22/2025 LUNG DIFFUSION CAPAC ITY (DLCO) LUNG DIFFUSION CAPACITY (DLCO) PFT STAT Malignant neoplasm of lower lobe of right lung (HCC) 03/06/2024 12:32 PM [facility] [employer] Work Phone: End: 10-03-2025 LUNG DIFFUSION CAPACITY (DLCO) LUNG DIFFUSION CAPACITY (DLCO) PFT Routine Exertional dyspnea Interstitial lung disease (HCC) 1 Occurrences starting 09/03/2024 until 10/03/2025 [facility] Comment on above: 1 Occurrences starting 09/03/2024 until 10/03/2025 End: 01-04-2023 LUNG VOLUMES LUNG VOLUMES PFT Routine Interstitial pulmonary disease (HCC) 1 Occurrences starting 12/05/2021 until 01/04/2023 [facility] Work Phone: Comment on above: 1 Occurrences starting 12/05/2021 until 01/04/2023 LUNG VOLUMES LUNG VOLUMES PFT Routine Interstitial pulmonary disease (HCC) 12/28/2021 1:57 PM EST [facility] Work Phone: End: 10-03-2025 LUNG VOLUMES LUNG VOLUMES PFT Routine Exertional dyspnea Interstitial lung disease (HCC) 1 Occurrences starting 09/03/2024 until 10/03/2025 [facility] Comment on above: 1 Occurrences starting 09/03/2024 until 10/03/2025 End: 03-31-2023 FREYA SCREENING FREYA SCREENING Radiology Routine Encounter for gynecological examination (general) (routine) without abnormal findings Encounter for screening mammogram for breast cancer 1 Occurrences starting 03/01/2022 until 03/31/2023 [facility] Work Phone: Comment on above: 1 Occurrences starting 03/01/2022 until 03/31/2023 End: 05-03-2024 MR Biliary ducts and Pancreatic duct WO and W contrast IV MRI PANC/ARMANDO WO/W IVCON Radiology Routine Calculus of gallbladder without cholecystitis without obstruction 1 Occurrences starting 04/04/2023 until 05/03/2024 [facility] Work Phone: Comment on above: 1 Occurrences starting 04/04/2023 until 05/03/2024 End: 10-03-2024 MR Brain WO and W contrast IV MRI BRAIN WO/W IVCON Radiology Routine Malignant neoplasm of upper lobe of right lung (HCC) 1 Occurrences starting 09/04/2023 until 10/03/2024 [facility] Work Phone: Comment on above: 1 Occurrences starting 09/04/2023 until 10/03/2024 End: 05-03-2024 MR Unspecified body region 3D post processing MRI 3D POST PROCESSING Radiology Routine Calculus of gallbladder without cholecystitis without obstruction 1 Occurrences starting 04/04/2023 until 05/03/2024 [facility] Work Phone: Comment on above: 1 Occurrences starting 04/04/2023 until 05/03/2024 End: 12-26-2024 NM Heart Perfusion W multiple states of exercise NM CARDIAC PERF STRESS/EXERCISE Radiology Routine Malignant neoplasm of lower lobe of right lung (HCC) Encounter for other preprocedural examination 1 Occurrences starting 11/26/2023 until 12/26/2024 [facility] Work Phone: Comment on above: 1 Occurrences starting 11/26/2023 until 12/26/2024 PAP FLUID CERVICAL SCREENING PAP FLUID CERVICAL SCREENING Lab Routine Encounter for gynecological examination (general) (routine) without abnormal findings Encounter for screening for human papillomavirus (HPV) Pap smear for cervical cancer screening Ordered: 03/01/2022 [facility] Work Phone: Comment on above: Ordered: 03/01/2022 Pneumococcal vaccination PNEUMOC OCCAL VACCINE (PREVNAR 20) Immunization/Injection Routine Encounter for immunization Ordered: 10/05/2021 [facility] Work Phone: Comment on above: Ordered: 10/05/2021 End: 09-03-2025 Polysomnogram POLYSOMNOGRAM (PSG) Procedures Routine Apnea 1 Occurrences starting 09/03/2024 until 09/03/2025 [facility] Work Phone: Comment on above: 1 Occurrences starting 09/03/2024 until 09/03/2025 End: 12-14-2022 Radiologic exam chest 2 views XR CHEST 2V FRONTAL/LAT Radiology Routine Chronic cough 1 Occurrences starting 11/14/2021 until 12/14/2022 [facility] Work Phone: Comment on above: 1 Occurrences starting 11/14/2021 until 12/14/2022 End: 11-14-2021 Radiologic exam chest 2 views [facility] [facility] Work Phone: Comment on above: 1 Occurrences starting 11/14/2021 until 11/14/2021 End: 11-23-2022 Screening mammography bi 2-view breast inc cad FREYA SCREENING Radiology Routine Encounter for screening mammogram for malignant neoplasm of breast 1 Occurrences starting 10/24/2021 until 11/23/2022 [facility] Work Phone: Comment on above: 1 Occurrences starting 10/24/2021 until 11/23/2022 End: 10-25-2024 SIX MINUTE WALK SIX MINUTE WALK PFT Routine Malignant neoplasm of lower lobe of right lung (HCC) 1 Occurrences starting 09/25/2023 until 10/25/2024 [facility] Work Phone: Comment on above: 1 Occurrences starting 09/25/2023 until 10/25/2024 SIX MINUTE WALK SIX MINUTE WALK PFT Routine Malignant neoplasm of lower lobe of right lung (HCC) 10/04/2023 9:31 AM EDT [facility] Work Phone: End: 03-22-2025 SIX MINUTE WALK SIX MINUTE WALK PFT STAT Malignant neoplasm of lower lobe of right lung (HCC) 1 Occurrences starting 02/20/2024 until 03/22/2025 [facility] Comment on above: 1 Occurrences starting 02/20/2024 until 03/22/2025 SIX MINUTE WALK SIX MINUTE WALK PFT STAT Malignant neoplasm of lower lobe of right lung (HCC) 03/06/2024 1:14 PM EST [facility] Work Phone: End: 01-04-2023 SPIROMETRY - BASELINE AND POST DILATOR SPIROMETRY - BASELINE AND POST DILATOR PFT Routine Interstitial pulmonary disease (HCC) 1 Occurrences starting 12/05/2021 until 01/04/2023 [facility] Work Phone: Comment on above: 1 Occurrences starting 12/05/2021 until 01/04/2023 SPIROMETRY - BASELIN E AND POST DILATOR SPIROMETRY - BASELINE AND POST DILATOR PFT Routine Interstitial pulmonary disease (HCC) 12/28/2021 1:57 PM EST [facility] Work Phone: End: 03-22-2025 SPIROMETRY WITH DILATOR IF OBSTRUCTED SPIROMETRY WITH DILATOR IF OBSTRUCTED PFT STAT Malignant neoplasm of lower lobe of right lung (HCC) 1 Occurrences starting 02/20/2024 until 03/22/2025 [facility] Comment on above: 1 Occurrences starting 02/20/2024 until 03/22/2025 SPIROMETRY WITH DILA TOR IF OBSTRUCTED SPIROMETRY WITH DILATOR IF OBSTRUCTED PFT STAT Malignant neoplasm of lower lobe of right lung (HCC) 03/06/2024 12:32 PM EST [facility] Work Phone: End: 10-03-2025 SPIROMETRY WITH DILATOR IF OBSTRUCTED SPIROMETRY WITH DILATOR IF OBSTRUCTED PFT Routine Exertional dyspnea Interstitial lung disease (HCC) 1 Occurrences starting 09/03/2024 until 10/03/2025 [facility] Comment on above: 1 Occurrences starting 09/03/2024 until 10/03/2025 End: 12-26-2023 US ABD RIGHT UPPER QUADRANT US ABD RIGHT UPPER QUADRANT Radiology Routine Primary sclerosing cholangitis 1 Occurrences starting 11/26/2022 until 12/26/2023 [facility] Work Phone: Comment on above: 1 Occurrences starting 11/26/2022 until 12/26/2023 End: 05-26-2025 US Abdomen RUQ US ABD RIGHT UPPER QUADRANT Radiology STAT Elevated LFTs 1 Occurrences starting 04/26/2024 until 05/26/2025 [facility] Work Phone: Comment on above: 1 Occurrences starting 04/26/2024 until 05/26/2025 End: 06-08-2025 XR Chest PA and Lateral XR CHEST 2V FRONTAL/LAT Radiology Routine Malignant neoplasm of lower lobe of right lung (HCC) 1 Occurrences starting 05/09/2024 until 06/08/2025 [facility] Work Phone: Comment on above: 1 Occurrences starting 05/09/2024 until 06/08/2025 XR Chest PA and Lateral XR CHEST 2V FRONTAL/LAT Radiology Routine Malignant neoplasm of lower lobe of right lung (HCC) Lung nodule 05/09/2024 2:49 PM EDT [facility] Work Phone: XR Chest PA and Lateral XR CHEST 2V FRONTAL/LAT Radiology Routine Malignant neoplasm of lower lobe of right lung (HCC) 05/21/2024 9:30 AM EDT [facility] Work Phone: End: 06-21-2025 XR Chest PA and Lateral XR CHEST 2V FRONTAL/LAT Radiology Routine Malignant neoplasm of lower lobe of right lung (HCC) 1 Occurrences starting 05/22/2024 until 06/21/2025 [facility] Work Phone: Comment on above: 1 Occurrences starting 05/22/2024 until 06/21/2025 End: 08-03-2025 XR Chest PA and Lateral XR CHEST 2V FRONTAL/LAT Radiology Routine Malignant neoplasm of lower lobe of right lung (HCC) Pleural effusion 1 Occurrences starting 07/04/2024 until 08/03/2025 [facility] Work Phone: Comment on above: 1 Occurrences starting 07/04/2024 until 08/03/2025 [facility] Immunizations Immunization Date Immunization Notes Care Provider Charles vizcarra 12-03-2023 COVID-19 vaccine, ag e 12+ yr (MODERNA) Mayco Archibald Work Phone: [facility] 12-03-2023 influenza, seasonal, injectable, preservative free Mayco Archibald Work Phone: [facility] 12-03-2023 influenza virus vacc ine, unspecified formulation Xr Mob Work Phone: [facility] 01-11-2023 respiratory syncytia l virus (RSV) vaccine, bivalent (ABRYSVO) MADELYN Chang PA-C Work Phone: [facility] 12-16-2022 COVID-19 vaccine, ag e 12+ yr, 2022- season (MODERNA) Us 2 Work Phone: [facility] 11-03-2022 influenza, injectabl e, quadrivalent, contains preservative Allen Valdes MD Work Phone: [facility] 11-03-2022 influenza virus vacc ine, unspecified formulation Ny Ross MD Work Phone: [facility] 07-10-2022 COVID-19 vaccine, ag e 12+ yr, bivalent (MODERNA) Boaz Pineda DO Work Phone: [facility] 11-14-2021 influenza, injectabl e, quadrivalent, contains preservative Boazvalentin Pineda DO Work Phone: [facility] 11-14-2021 influenza virus vacc ine, unspecified formulation Eloise Montesinos MD Work Phone: [facility] 10-19-2021 COVID-19 vaccine, ag e 12+ yr, bivalent booster ([employer]) Mn Nurse Work Phone: [facility] Work Phone: 10-19-2021 pneumococcal (PCV20) vaccine, 20 valent (PREVNAR 20) Mn Nurse Work Phone: [facility] Work Phone: 06-04-2021 COVID-19 original vaccine, full dose, monovalent (MODERNA) Boaz Pineda DO Work Phone: [facility] 12-10-2020 COVID-19 vaccine, fu ll dose (MODERNA) Allen Valdes MD Work Phone: [facility] 11-19-2020 influenza, injectabl e, quadrivalent, contains preservative Allen Valdes MD Work Phone: [facility] 06-25-2020 zoster vaccine recombinant Allen Valdes MD Work Phone: [facility] Work Phone: 05-20-2020 COVID-19 vaccine, fu ll dose (MODERNA) Allen Valdes MD Work Phone: [facility] 04-22-2020 COVID-19 vaccine, fu ll dose (MODERNA) Allen Valdes MD Work Phone: [facility] 01-26-2020 zoster vaccine recombinant Allen Valdes MD Work Phone: [facility] Work Phone: 11-20-2019 influenza, injectabl e, quadrivalent, contains preservative Allen Valdes MD Work Phone: [facility] 07-10-2019 hepatitis A and hepatitis B vaccine Allen Valdes MD Work Phone: [facility] Work Phone: 02-07-2019 hepatitis A and hepatitis B vaccine Allen Valdes MD Work Phone: [facility] Work Phone: 12-30-2018 hepatitis A and hepatitis B vaccine Allen Valdes MD Work Phone: [facility] Work Phone: 10-17-2018 influenza, injectabl e, quadrivalent, contains preservative Allen Valdes MD Work Phone: [facility] 10-19-2017 influenza, injectabl e, quadrivalent, contains preservative Allen Valdes MD Work Phone: [facility] 10-19-2017 tetanus toxoid, redu carina diphtheria toxoid, and acellular pertussis vaccine, adsorbed Allen Valdes MD Work Phone: [facility] 12-21-2016 influenza, injectabl e, quadrivalent, contains preservative Allen Valdes MD Work Phone: [facility] 12-07-2009 influenza virus vacc ine, unspecified formulation Allen Valdes MD Work Phone: [facility] 12-07-2009 tetanus and diphther ia toxoids, adsorbed, preservative free, for adult use (2 Lf of tetanus toxoid and 2 Lf of diphtheria toxoid) Allen Valdes MD Work Phone: [facility] 02-24-1999 diphtheria and tetan us toxoids, adsorbed for pediatric use Allen Valdes MD Work Phone: [facility] Work Phone: 02-24-1999 pneumococcal polysaccharide vaccine, 23 valent Allen Valdes MD Work Phone: [facility] Work Phone: Payers Date Payer Category Payer Self-pay 2021 [employer] BLUE CARD PPO OOS [id number] 2021 Unknown [id number] 2021 Unknown [employer] BLUE CARD PPO OOS [id number] 2021-Present [phone] [address] [place] [address] PPO [id number] 2021 Unknown [id number] Unknown [id number] Unknown [id number] Social History Date Type Detail Facility Start: 03-16-2016 End: 11-12-2023 Tobacco smoking status NHIS Ex-smoker [facility] Start: 01-16-1971 End: 01-17-2016 History of tobacco use Current smoker [facility] Start: 01-16-1971 End: 01-17-2016 History of tobacco use Cigarette Smoker [facility] Start: 03-16-2016 End: 06-30-2022 Cigarettes smoked current (pack per day) - Reported 0.15 [facility] Start: 03-16-2016 End: 11-12-2023 Tobacco use and exposure Smokeless tobacco non-user [facility] Start: 01-04-2021 End: 09-11-2024 Alcohol intake Current non-drinker of alcohol (finding) [facility] Start: 11-03-2019 End: 11-26-2021 History SDOH Alcohol Frequency 1 [facility] Start: 11-03-2019 End: 11-26-2021 History SDOH Alcohol Std Drinks 98 [facility] Start: 11-03-2019 End: 11-26-2021 History SDOH Social Connections Phone 3 [facility] Start: 11-03-2019 End: 11-26-2021 History SDOH Social Connections Get Together 2 [facility] Start: 11-03-2019 End: 11-26-2021 History SDOH Social Connections Living 7 [facility] Start: 11-03-2019 History SDOH Financial 5 [facility] Start: 11-03-2019 Education 16 [facility] Start: 1960 Sex Assigned At Female [facility] Work Phone: Start: 07-29-2021 End: 12-30-2021 Exposure to SARS-CoV-2 (event) Not sure [facility] Start: 11-26-2021 History SDOH Alcohol Std Drinks 0 [facility] Start: 11-26-2021 History SDOH Financial 4 [facility] Start: 06-30-2022 End: 09-25-2022 Social connection and isolation panel [facility] Do you belong to any clubs or organizations such as denominational groups, unions, fraternal or athletic groups, or school groups? No [facility] Start: 01-07-2012 How often do you attend meetings of the clubs or organizations you belong to? Patient refused [facility] Are you now , , , , never or living with a partner? Never [facility] How often to you hav e a drink containing alcohol? Never [facility] Do you feel stress - tense, restless, nervous, or anxious, or unable to sleep at night because your mind is troubled all the time - these days [OSQ] Not at all [facility] (I/We) worried wheth er (my/our) food would run out before (I/we) got money to buy more. Never true [facility] Start: 04-10-2018 Gender identity Identifies as female gender (finding) [facility] Work Phone: Start: 04-10-2018 Sexual orientation Heterosexual (finding) [facility] Work Phone: Do you belong to any clubs or organizations such as denominational groups, unions, fraternal or athletic groups, or school groups? Yes [facility] How hard is it for y ou to pay for the very basics like food, housing, medical care, and heating Not very hard [facility] Start: 07-05-2023 Tobacco Comment One pack a week [facility] Start: 10-22-2023 Tobacco Comment Pt smoked one pack a week x 30 years, quit 2016 [facility] Medical Equipment Procedure Code Equipment Code Equipment Origin al Text Equipment Identifier Dates [employer] Im plant - [id number] Start: 04-03-2018 Comment on above: Description: speed b ridge implant system with scorpion multifire needle [place] Swivelock C 4.75mm Black White Biocomposite 19.1mm Suture Close - [id number] Start: 04-03-2018 Use to inject he jessica subcutaneously two times a day. Start: 05-03-2024 End: 06-19-2024 Functional Status Date Assessment Result Facility 05-03-2024 Are you deaf, or do you have serious difficulty hearing No 05/03/2024 2:48 PM Star King RN No [facility] 05-03-2024 Are you blind, or do you have serious difficulty seeing, even when wearing glasses No 05/03/2024 2:48 PM Star King RN No [facility] 05-03-2024 Do you have serious difficulty walking or climbing stairs No 05/03/2024 2:48 PM Star King RN No [facility] 05-03-2024 Do you have difficul ty dressing or bathing No 05/03/2024 2:48 PM Star King, ARTURO No [facility] 05-03-2024 Because of a physica l, mental, or emotional condition, do you have difficulty doing errands alone such as visiting a physician's office or shopping No 05/03/2024 2:48 PM SUZANNET Star Espinoza, ARTURO No [facility] 04-09-2024 Total score [AUDIT-C] 0 04/10/19 2:04 PM EST User, Sofyt [facility] 04-09-2024 Within the last year , have you been humiliated or emotionally abused in other ways by your partner or ex-partner? No 04/09/2024 2:04 PM EST User, [email or web address] No [facility] 04-09-2024 Within the last year , have you been afraid of your partner or ex-partner? No 04/09/2024 2:04 PM EST User, [email or web address] No [facility] 04-09-2024 Within the last year , have you been raped or forced to have any kind of sexual activity by your partner or ex-partner? No 04/09/2024 2:04 PM EST User, Sofyt No [facility] 04-09-2024 Within the last year , have you been kicked, hit, slapped, or otherwise physically hurt by your partner or ex-partner? No 04/09/2024 2:04 PM EST User, Sofyt No [facility] 04-09-2024 How often to you hav e a drink containing alcohol? Never 04/09/2024 2:04 PM EST User, [email or web address] Never [facility] 04-09-2024 Functional status Patient does n ot drink 04/09/2024 2:04 PM EST User, [email or web address] Patient does not drink [facility] 04-09-2024 How often do you hav e 6 or more drinks on 1 occasion? Never 04/09/2024 2:04 PM EST User, [email or web address] Never [facility] 04-04-2024 Are you deaf, or do you have serious difficulty hearing No 04/04/2024 12:36 PM Alexa Gomes, ARTURO No [facility] 04-04-2024 Are you blind, or do you have serious difficulty seeing, even when wearing glasses No 04/04/2024 12:36 PM Alexa Gomes, ARTURO No [facility] 04-04-2024 Do you have serious difficulty walking or climbing stairs No 04/04/2024 12:36 PM Alexa Gomes, ARTURO No [facility] 04-04-2024 Do you have difficul ty dressing or bathing No 04/04/2024 12:36 PM Alexa Gomes, ARTURO No [facility] 04-04-2024 Because of a physica l, mental, or emotional condition, do you have difficulty doing errands alone such as visiting a physician's office or shopping Yes 04/04/2024 12:36 PM Alexa Gomes, ARTURO Yes [facility] 05-25-2014 Are you deaf, or do you have serious difficulty hearing No 05/25/2014 4:31 PM Maris Barker Cma No [facility] 05-25-2014 Are you blind, or do you have serious difficulty seeing, even when wearing glasses No 05/25/2014 4:31 PM Maris Barker Cma No [facility] 05-25-2014 Do you have serious difficulty walking or climbing stairs No 05/25/2014 4:31 PM Maris Barker Cma No [facility] 05-25-2014 Do you have difficul ty dressing or bathing No 05/25/2014 4:31 PM Maris Barker Cma No [facility] 05-25-2014 Because of a physica l, mental, or emotional condition, do you have difficulty doing errands alone such as visiting a physician's office or shopping No 05/25/2014 4:31 PM Maris Barker Cma No [facility] Mental Status Date Assessment Result Facility 05-03-2024 Because of a physica l, mental, or emotional condition, do you have serious difficulty concentrating, remembering, or making decisions No 05/03/2024 2:48 PM Star King, ARTURO No [facility] 04-04-2024 Because of a physica l, mental, or emotional condition, do you have serious difficulty concentrating, remembering, or making decisions No 04/04/2024 12:36 PM Alexa Gomes, ARTURO No [facility] 05-25-2014 Because of a physica l, mental, or emotional condition, do you have serious difficulty concentrating, remembering, or making decisions No 05/25/2014 4:31 PM EDT Maris De Paz Cma No [facility] Clinical Notes 12-07-2010 to 09-18-2024 Leanne Chadwick RDMS - 09/18/2024 11:30 AM EDTReJaimie Horn RT(R) - 09/18/2024 11:00 AM EDTTelephone Encounter - Ann Randolph RN - 09/15/2024 2:13 PM EDTPatient Instructions Note Date & Type Note Facility 09-18-2024 History of Present illness Narrative Radiology Service Progress Note PATIENT NAME: Vickey Schwartz DATE OF SERVICE: September 18, 2024 TIME: 2:39 PM PATIENT IDENTITY VERIFICATION COMPLETED USING TWO (2) IDENTIFIERS: Name and Date of confirmed by patient verbally. FALL SCREENING: Has the patient had 2 falls in the last year or 1 fall with injury or currently using an Ambulatory Assistive Device (Walker, Cane, Wheelchair, Crutches, etc.)? No PATIENT GENDER DATA: Assigned female at . status: : No status: NO. PATIENT RELEVANT IMPLANT DATA REVIEWED: Not Applicable PATIENT PRESENTS WITH AN IMPLANTABLE OR ATTACHED PREPRESS SPECIALIST: No RADIOLOGY DEPARTMENT: Ultrasound PERIPHERAL IV DATA: Not applicable SIGNED BY: Leanne Chadwick RDMS RVT September 18, 2024 2:39 PM documented in this encounter [facility] 09-18-2024 Note [facility] 09-18-2024 History of Present illness Narrative Radiology Service Progress Note PATIENT NAME: Vickey Schwartz DATE OF SERVICE: September 18, 2024 TIME: 3:06 PM PATIENT IDENTITY VERIFICATION COMPLETED USING TWO (2) IDENTIFIERS: Name and Date of confirmed by patient verbally. FALL SCREENING: Has the patient had 2 falls in the last year or 1 fall with injury or currently using an Ambulatory Assistive Device (Walker, Cane, Wheelchair, Crutches, etc.)? No PATIENT GENDER DATA: Assigned female at . status: : No status: NO. PATIENT RELEVANT IMPLANT DATA REVIEWED: Yes PATIENT PRESENTS WITH AN IMPLANTABLE OR ATTACHED PREPRESS SPECIALIST: No RADIOLOGY DEPARTMENT: CT; Exam(s) Completed: Chest Abdomen Pelvis PERIPHERAL IV DATA: Not applicable SIGNED BY: RT Lorie(R) September 18, 2024 3:06 PM documented in this encounter [facility] 09-18-2024 Note [facility] 09-15-2024 Telephone encounter Note Dermatology prescribed valtrex and bactroban. Patient will follow-up with derm or PCP. Ann Randolph RN [facility] 09-15-2024 Miscellaneous Notes Dermatology prescribed valtrex and bactroban. Patient will follow-up with derm or PCP. Ann Randolph RN documented in this encounter [facility] 09-15-2024 Instructions Boaz Pineda DO - 09/15/2024 10:06 AM EDT Labs today Please continue the Plaquenil 2 tablets/daily Please use Aquaphor 3-4 times/daily to keep the lip lesion moist. I will be in touch with results, please contact my office is the lip lesion does not improve. documented in this encounter [facility] 09-15-2024 Note [facility] 09-15-2024 History of Present illness Narrative Images from the original note were not included. [facility] DEPARTMENT OF RHEUMATIC AND IMMUNOLOGIC DISEASES SUBJECTIVE: Reason for visit: Brief History of Present Illness: Vickey Schwartz is a 64 year old female with primary biliary cirrhosis (diagnosed 2015), hyperlipidemia and poorly differentiated non-small cell carcinoma who is evaluated in the Rheumatology Clinic for SLE. She has been previously seen by Dr. Padgett 09/01/2019. Background history: 06/18/[address] Luque. She states she had been having joint pain in April-June 2017, but she did not have any skin rashes over the face at that time. The joint pain was located in the knees and elbows bilaterally, and went away after 2 months. Did not notice any red hot or swollen joints at that time. No morning stiffness at that time, and pain did not change much over the course of the day. She did have some skin rash (red at that time) over the forearms and trunks. Her rash then spread to the face after her 06/18/17 rheumatology appointment, and she was referred to derm. 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 She was also started on plaquenil on 03/01/18 On 05/13/18, Dr. Montesinos (derm) noted increased hair loss over the scalp, and had been experiencing increased photosensitivity. She is getting creams and lotions for her skin rash, which has been helpful. She does note increased stains of hyperpigmentation over areas where the prior rash had occurred. Patient notes that it has been years since she has been more sensitive to sunlight. She states in the past she may get hives from being in the sun. 11/2021 she was diligent about sun protection, still taking HCQ 2 tablets/daily. 09/2022 when she was doing well. She has since had repeat PFTs which were normal 12/2022. She has been feeling well without shortness of breath, joint pain, mucosal ulcers, photosensitivity, pleurisy or chest pain. A CT chest done in June 2023 demonstrated an interval new 13 x 19 mm right lower lobe subpleural nodule. She underwent a CT-guided biopsy of the right lower lobe nodule. Pathology demonstrated poorly differentiated non-small cell carcinoma favoring adenocarcinoma. 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 CT has been stable and pulmonary function tests do not show restriction or low diffusing capacity. Patient prefers pulmonary follow-up closer to home. Patient is asymptomatic so antifibrotic therapy has been on hold. 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 She denies significant dyspnea except for with extreme activity. Chronic cough or sputum production. No wheezing. She used to smoke a pack a week but quit in 2015 when she had note of a small nodule on chest CT. Today she states that she continues to do well. Per my direct communication with pulm: she has mild, Chest CT with probable UIP pattern. Stable since 2019. No symptoms, normal PFTs. We discussed possible progression over time. Hold off on any biologics for now. 03/2024 she was undergoing preoperative chemotherapy and immunotherapy with cisplatin, pemetrexed and pembrolizumab for poorly differentiated non-small cell carcinoma of the lung. Cisplatin omitted cycles 3 and 4 due to CRISTINO. As of 02/2024 she has had ~50% decrease in tumor size. She went for resection surgery 05/01/2024. She is now on Keytruda. She held hydroxychloroquine 8 weeks prior to the surgery which she resumed 2024. She has had a open ulceration on her lower lip, which has been ongoing for about 4 weeks. This started when she was fishing August 2024. Otherwise, she has been doing well from a lupus perspective. No SLE symptoms; On review of SHADI+ spectrum, patient denies Raynaud s, alopecia, sicca, malar rashes, scarring/dispigmented discoid rashes, or dysphagia. Answers submitted by the patient for this visit: Review of Systems Rheumatology (Submitted on 09/09/2024) Fever : No Recent unintentional weight change: No Eye pain: No Eye redness: No Vision Disturbance: No Eye Dryness: No Nosebleeds: No Sores in your mouth: No Trouble Swallowing: No Dry Mouth: Yes Chest pain: No Leg Swelling: Yes Shortness of breath: Yes Pain with breathing: No Heartburn: No Abdominal pain: No Diarrhea: No Black tarry stools: No Blood in urine: No Pain or burning with urination: No Joint pain or stiffness: Yes Muscle weakness: No Muscle aches: Yes Joint swelling: No Morning Stiffness in Joints: No A rash: No Skin Color Changes: No Hair Loss: Yes Nail Changes: No Headaches: No Numbness: No Memory Loss: No PMHx: PAST MEDICAL HISTORY[1] PSHx: PAST SURGICAL HISTORY Procedure Laterality Date BRONCHOSCOPY 07/31/2023 COLONOSCOPY FLX DX W/COLLJ SPEC WHEN PFRMD 06/29/2016 HAD VASOVAGAL RESPONSE DURING PROCEDURE SYST BP 60'S HR 40'S-GIVEN ATROPINE CORRJ HLX VLGS BNCTY SESMDC DSTL METAR OSTEOT 1985 DIAGNOSTIC ARTHROSCOPY SHOULDER +- SYNOVIAL BX Left 04/03/2018 Left shoulder arthroscopic subacromial decompression, rotator cuff repair, and biceps tenotomy EGD 12/25/2022 repeat 2 years ESOPHAGOGASTRODUODENOSCOPY TRANSORAL DIAGNOSTIC 11/11/2018 EGD ESOPHAGOGASTRODUODENOSCOPY TRANSORAL DIAGNOSTIC 11/22/2020 repeat in 2 years FOOT SURGERY HX 1986 HYSTEROSCOPY 06/21/2017 D&C LUNG BIOPSY HX 08/24/2023 PAST SURGICAL HISTORY OF Left 04/2024 LOBECTOMY LUNG WITH THORACOSCOPY SIGMOIDOSCOPY ?1999 SKIN BIOPSY HX TONSILLECTOMY HX MEDICATIONS: clotrimazole-betamethasone (LOTRISONE) lotion 1 application. levothyroxine (SYNTHROID) 100 mcg tablet Take 1 tablet by mouth daily at [address] (PROTONIX) 40 mg tablet Take 1 tablet by mouth once daily. hydrOXYchloroQUINE (PLAQUENIL) 200 mg tablet Take 1 tablet by mouth two times a day. PER DR. PINEDA (RHEUM) folic acid 1 mg tablet Take 1 tablet by mouth once daily. BIOTIN ORAL Take 1 tablet by mouth once daily. cholecalciferol, vitamin D3, (VITAMIN D3 ORAL) Take 1 tablet by mouth once daily. acetaminophen (TYLENOL) 500 mg tablet Take 2 tablets by mouth every 6 hours as needed for pain. ursodiol (ACTIGALL) 300 mg capsule Take 1 capsule by mouth three times a day. prochlorperazine (COMPAZINE) 10 mg tablet Take 1 tablet by mouth every 6 hours as needed. For chemotherapy induced nausea and vomiting. tacrolimus (PROTOPIC) 0.1 % ointment Apply twice daily to affected areas on face Clobetasol Propionate (TEMOVATE) 0.05 % external solution Apply to affected areas on the scalp twice a day. Dispense 100ml as 30 day supply. ALLERGIES: ALLERGIES[2] OBJECTIVE: Physical Examination: Vitals: BP (!) 101/31 Pulse 77 Ht 162.6 cm (5' 4) Wt 82.6 kg (182 lb 1.6 oz) BMI 31.26 kg/m General: Looks well, NAD, A & Ox3. HEENT: No facial rash. There is a red, scabbed lesion on lower lip. Neck: No LAD. CVS: RRR, nl S1/S2, no R/M/G, Resp: CTAB. No rales or wheezing. Ext: No edema. Skin: No rash. No ulcers. Musculoskeletal: Elbows: No swelling, no tenderness, no flexion contractures, no nodules, good ROM Wrists: No swelling, no tenderness, no limitation in flexion and extension Hands: No evidence of synovitis. Able to make full fist bilaterally Knees: No effusion, no tenderness, good ROM Ankles: No swelling, no tenderness, good ROM IMPRESSIONS/RECOMMENDATIONS: Systemic lupus, stable alopecia, new lip lesion Diagnosis based on 2019 EULAR/ACR classification criteria: +SHADI 1:320 speckled, with an equivocal range dsDNA with no other laboratory features of systemic lupus. 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 CT scans show findings of definite UIP imaging pattern, essentially stable to minimally progressed since 10/21/2018 and likely related to patient's history of SLE. CT and PFTs were stable as of 12/2022 and again 02/2024. Seeing pulm again 10/2024. As of 06/2023 she has been battling poorly differentiated non-small cell carcinoma of the lung. She is underwent preoperative chemotherapy and immunotherapy and surgery 04/2024. Currently on Keytruda. 2. Oral ulcerations on lips Unsure if this is a side effect from Keytruda versus SLE. Quick literature review shows Keytruda can cause oral ulcerations and other mucocutaneous side effects; sores, ulcers, or white spots on the lips, tongue, or inside the mouth. Plan: She will continue HCQ 400 mg daily. SLE activity labs today ordered for her today with [facility] follow up. I have sent a message to Dr. Castle and Dr. Montesinos re: lip lesion. She has been advised to use Aquaphor and keep the lesion moist. Health Maintenance HCQ: Exam scanned into system from 06/10/2024. Vaccinations: up to date with COVID vaccines and bivalent booster. Yearly influenza given 11/2023. Prevnar 20 given 09/2021 RTC 6 months. Boaz Pineda D.O. Rheumatology Staff [1] Past Medical History: No date: Hemorrhage of rectum and anus 07/10/2005: HYPERLIPIDEMIA MIXED 06/13/2016: Lung nodule Comment: June 25, 2017 subcentimeter lung nodules and interstitial lung disease also stable from 2017: check CT in 1 year. No date: Primary biliary cholangitis (HCC) No date: Snoring No date: Systemic lupus erythematosus (HCC) [2] Allergies Allergen Reactions Albuterol Other: See Comments kyra Morrison Adhesive Tape (Sammi* Itching Itching and redness documented in this encounter [facility] 09-15-2024 Note [facility] 09-15-2024 History of Present illness Narrative Clinical Research Study - Orthopaedic & Rheumatologic [place] IRB# [id number] Title: Lupus Registry PI: Dr Miriam Schwartz completed follow-up #3 today, September 15, 2024, Questionnaires were sent via email and completed and labs for this registry were completed. Moo Parikh Research Coordinator - Rheumatic and Immunologic Diseases Pager: [phone] documented in this encounter [facility] 09-11-2024 Note [facility] 09-03-2024 Instructions Elizabeth Ledesma APRN.DIRECTOR OF PURCHASING - 09/03/2024 10:14 AM EDT [facility] sleep center We discussed your pulmonary health and shortness of breath: - You are experiencing increased shortness of breath. - I have ordered pulmonary function tests to evaluate your current lung function and compare it to your pre-surgery results. These tests will help us understand your breathing capacity and guide further management. - Please continue monitoring your oxygen levels at home. If you notice significant changes or worsening symptoms, let us know. We discussed your sleep health: - You have a history of mild sleep apnea, but a formal overnight sleep study was not completed. I recommend proceeding with a formal sleep study to evaluate for sleep apnea and assess whether low oxygen levels during sleep may be contributing to your symptoms. - I will send the order for the sleep study to the [facility] to make scheduling more convenient for you. You will be contacted with further instructions once it is scheduled. Next steps: - Complete the pulmonary function tests as ordered. We can schedule a follow-up visit to review the results and discuss next steps. - Complete the formal sleep study at [facility] once it is scheduled. This will help us determine if further treatment is needed for sleep apnea or low oxygen levels during sleep. - Continue monitoring your symptoms, including shortness of breath, oxygen levels. Let us know if your symptoms worsen or if you experience new symptoms such as chest pain, persistent coughing, or wheezing. If you have any questions or concerns before your next visit, please contact our office. documented in this encounter [facility] 09-03-2024 History of Present illness Narrative Images from the original note were not included. Pulmonary Medicine Patients name: Vickey Schwartz PCP: Camilo Jonas MD Recording using Ramen software for draft documentation of the visit was discussed with the patient/authorized welding equipment sales representative; all questions welcomed and answered. Patient/authorized welding equipment sales representative agreed to proceed CC: follow-up HPI: Vickey Schwartz is a 64 year old female former less than [id number] smoker having quit in 2016 with PMH significant for obesity, HLD, primary biliary cholangitis, discoid lupus (Plaquenil) seen by pulmonary on [address] [place] for concerns of interstitial lung disease. 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 CT has been stable and pulmonary function tests do not show restriction or low diffusing capacity. New patient and ALBERTA with Dr. Ross 06/2023 due to wanting care closer to home. At the time of that visit, chest CT showed new RLL subpleural nodule. Underwent PET and biopsy positive for non-small cell carcinoma with positive lymph nodes. Has been undergoing treatment since. Previously provided with Albuterol but doesn't typically use. She presents today for follow-up. Following cancer diagnosis, she started chemotherapy, eventually undergoing right lower lobectomy in April of this year. Has been seen by thoracic surgery with her last follow-up earlier this month. Currently on Keytruda. She reports increased dyspnea with exertion since her lobectomy. Exertional dyspnea with little activity but especially with walking an incline, stairs. Has to take her time with activity. Has used Xopenex but does not usually find it helpful. Today, she denies significant cough, wheezing or chest tightness. No significant LE edema. No recent fevers, chills or night sweats. No recent hospitalizations or ED visits or upper respiratory infections. Monitors her SPO2 and is typically in the high 90's. Prior to cancer diagnosis, she had a home sleep study which suggested mild RODRIGO. Recommended formal sleep study which was deferred d/t cancer treatment. She reports occasional snoring and daytime fatigue, and uses a wedge pillow to sleep in an elevated position. PAST MEDICAL HISTORY Diagnosis Date Hemorrhage of rectum and anus HYPERLIPIDEMIA MIXED 07/10/2005 Lung nodule 06/13/2016 June 25, 2017 subcentimeter lung nodules and interstitial lung disease also stable from 2017: check CT in 1 year. Primary biliary cholangitis (HCC) Snoring Systemic lupus erythematosus (HCC) Allergies: Albuterol Other: See Comments Comment:kyra Morrison Adhesive Tape (Sammi* Itching Comment:Itching and redness Medication List Accurate as of September 02, 2024 9:58 PM. If you have any questions, ask your nurse or doctor. CONTINUE taking these medications acetaminophen 500 mg tablet Commonly known as: TYLENOL Take 2 tablets by mouth every 6 hours as needed for pain. BIOTIN PO Clobetasol Propionate 0.05 % external solution Commonly known as: TEMOVATE Apply to affected areas on the scalp twice a day. Dispense 100ml as 30 day supply. clotrimazole-betamethasone lotion Commonly known as: LOTRISONE folic acid 1 mg tablet Take 1 tablet by mouth once daily. hydrOXYchloroQUINE 200 mg tablet Commonly known as: PLAQUENIL Take 1 tablet by mouth two times a day. PER DR. PINEDA (RHEUM) levothyroxine 100 mcg tablet Commonly known as: SYNTHROID Take 1 tablet by mouth daily at [address] 40 mg tablet Commonly known as: PROTONIX Take 1 tablet by mouth once daily. prochlorperazine 10 mg tablet Commonly known as: COMPAZINE Take 1 tablet by mouth every 6 hours as needed. For chemotherapy induced nausea and vomiting. tacrolimus 0.1 % ointment Commonly known as: PROTOPIC Apply twice daily to affected areas on face ursodiol 300 mg capsule Commonly known as: ACTIGALL Take 1 capsule by mouth three times a day. VITAMIN D3 PO DATA: I personally reviewed and analyzed all labs, radiographs and available pulmonary function testing PFT: 02/2024 Spirometry reveals a reduced FEV1/FVC with normal FEV1 and FVC values. This could reflect a normal presentation or could indicate mild obstruction. Clinical correlation recommended. Negative bronchodilator response. The diffusion capacity (corrected for hemoglobin) is normal. CXR: Last XR Chest - Impression Only XR CHEST 2V FRONTAL/LAT Exam End: 08/05/2024 10:44 AM (Final result) Impression: IMPRESSION: Stable postoperative changes, right hemithorax. ... CT Chest: 04/2024 IMPRESSION: Stable 1.3 cm solid nodule abutting the pleural surface in the right lower lobe. No new nodules identified. Numerous cystic components in the bilateral lungs as described above. No thoracic lymphadenopathy. Acute Care Nurse: [facility] Transcribe Date/Time: Apr 18 2024 9:19A Dictated by : AISSATOU PAUL MD This examination was interpreted and the report reviewed and electronically signed by: AISSATOU PAUL MD on Apr 18 2024 4:48PM EST RESULT: Limitations: None. Lines, tubes, and devices: None. Lung parenchyma and airways: The central airways are patent. Noted is a stable 1.3 x 1 cm subpleural solid nodule in the right lower lobe, series 7 image 75. Numerous cystic components noted in the posterior bilateral lower lobes and bilateral upper lobes along the peripheral areas, unchanged. No consolidations. No suspicious new pulmonary nodules. Pleural space: No pleural effusions or pneumothorax. Lower neck, lymph nodes, and mediastinum: The imaged thyroid gland is normal. No lymphadenopathy in the supraclavicular, axillary, mediastinal, or hilar regions. Echo: 02/2024 Impression CONCLUSIONS: - Technically difficult exam due to body habitus. - Exam indication: Cardiotoxicity screen before chemotherapy - The left ventricle is normal in size. Left ventricular systolic function is normal. EF = 58 5% (2D biplane) - The right ventricle is normal in size. Right ventricular systolic function is normal. - The patient has not had a prior CC echocardiographic exam for comparison. Labs: WBC (k/uL) Date Value 08/21/2024 6.69 10/25/2020 7.73 RBC (m/uL) Date Value 08/21/2024 3.41 10/25/2020 4.81 Hemoglobin (g/dL) Date Value 08/21/2024 10.6 10/25/2020 14.9 Hematocrit (%) Date Value 08/21/2024 31.0 10/25/2020 44.8 Platelet Count (k/uL) Date Value 08/21/2024 203 10/25/2020 210 MPV (fL) Date Value 08/21/2024 8.6 10/25/2020 11.2 Neut% (%) Date Value 10/25/2020 68.6 Neutrophils % (%) Date Value 08/21/2024 69.1 Eosin% (%) Date Value 10/25/2020 1.3 Eosinophils % (%) Date Value 08/21/2024 3.3 Baso% (%) Date Value 10/25/2020 0.8 Basophils % (%) Date Value 08/21/2024 0.4 Abs Neut (ANC) (k/uL) Date Value 10/25/2020 5.31 Abs Neut (k/uL) Date Value 08/21/2024 4.62 Abs [place] (k/uL) Date Value 08/21/2024 0.74 10/25/2020 0.54 Abs Eosin (k/uL) Date Value 08/21/2024 0.22 10/25/2020 0.10 Abs Baso (k/uL) Date Value 08/21/2024 0.03 10/25/2020 0.06 Review of Systems Constitutional: Negative for activity change, appetite change and unexpected weight change. HENT: Negative for congestion, postnasal drip and sinus pain. Respiratory: Positive for shortness of breath. Negative for cough, chest tightness and wheezing. Cardiovascular: Negative for chest pain, palpitations and leg swelling. Allergic/Immunologic: Negative for environmental allergies. Neurological: Negative for dizziness, weakness and headaches. BP 96/63 Pulse 80 Wt 82.4 kg (181 lb 9.6 oz) SpO2 97% BMI 31.17 kg/m Physical Exam Vitals reviewed. Constitutional: General: She is not in acute distress. Appearance: Normal appearance. She is not ill-appearing. HENT: Head: Normocephalic. Mouth/Throat: Mouth: Mucous membranes are moist. Pharynx: No oropharyngeal exudate or posterior oropharyngeal erythema. Cardiovascular: Rate and Rhythm: Normal rate and regular rhythm. Heart sounds: Normal heart sounds. Pulmonary: Effort: Pulmonary effort is normal. No respiratory distress. Breath sounds: No wheezing or rhonchi. Musculoskeletal: Right lower leg: No edema. Left lower leg: No edema. Lymphadenopathy: Cervical: No cervical adenopathy. Skin: General: Skin is warm and dry. Capillary Refill: Capillary refill takes less than 2 seconds. Neurological: General: No focal deficit present. Mental Status: She is alert. 1. Exertional dyspnea (R06.09) Interstitial lung disease (HCC) (J84.9) - Increased dyspnea on exertion s/p lobectomy in April. PFT prior to surgery were normal. - review of most recent CT in April with RUL interstitial disease. No current need for antifibrotic therapy. - Ordered repeat pulmonary function tests to assess current lung capacity and function. - Scheduled follow-up appointment to review test results and discuss further management. 2. Malignant neoplasm of lower lobe of right lung (HCC) (C34.31) - Undergoing immunotherapy with Keytruda, following with Dr. Castle. - s/p RLL lobectomy 04/2024 3. Apnea (R06.81) - apnea events on home sleep study. Occasional snoring and daytime fatigue reported. Nocturnal oxygen desaturation not formally assessed. - Ordered formal overnight polysomnography to confirm diagnosis. - Arranged for sleep study to be conducted at [facility] for patient convenience. - if positive for RODRIGO, will refer to sleep medicine. F/u after updated testing Portions of this documentation were copied and pasted from previous office visit notes in order to provide a cohesive continuity of the history. The note has been reviewed and edited and updated as necessary. Elizabeth Ledesma APRN.GALILEA I spent a total of 35 minutes on the date of the service which included preparing to see the patient, [id number] patient care, completing clinical documentation, performing a medically appropriate examination, counseling and educating the patient/family/caregiver, and ordering medications, tests, or procedures. documented in this encounter [facility] 09-03-2024 Note [facility] 08-22-2024 Note HNO ID: [id number] Author: SAMARA BURT RN Service: ? Author Type: Registered Nurse Type: Progress Notes Filed: 08/22/2024 15:02 Note Text: Pt stated no changes to assessment from OV yesterday. Samara Burt RN [facility] 08-22-2024 History of Present illness Narrative Pt stated no changes to assessment from OV yesterday. Samara Burt RN documented in this encounter [facility] 08-21-2024 Note [facility] 08-21-2024 History of Present illness Narrative Chief Complaint Patient presents with: Follow Up HPI: Vickey Schwartz is a 64 year old female who presents here today for evaluation for treatment tomorrow. Per Dr. Castle's previous note: The patient is a former smoker of approximately 7-pack-year, quit in 2016. She is on Plaquenil for history of lupus. She has primary biliary cholangitis. She had a nodule discovered on lung cancer screening study for surveillance of her interstitial pulmonary fibrosis. A CT of the chest done in June 2023 demonstrated an interval new 13 x 19 mm right lower lobe subpleural nodule. PET scan done in July showed the nodule to measure 20.6 mm with an SUV of 14.0. Perihilar lymph nodes measuring up to 11 mm which were stable in size with an SUV of 10.7. She underwent a CT-guided biopsy of the right lower lobe nodule. Pathology demonstrated poorly differentiated non-small cell carcinoma favoring adenocarcinoma. She underwent bronchoscopy with EBUS. Samples from 11 RS demonstrated rare atypical epithelial cells and station 7 was negative for malignant cells. 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 CT has been stable and pulmonary function tests do not show restriction or low diffusing capacity. Patient prefers pulmonary follow-up closer to home. Patient is asymptomatic so antifibrotic therapy has been on hold. 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 She denies significant dyspnea except for with extreme activity. Chronic cough or sputum production. No wheezing. She used to smoke a pack a week but quit in 2015 when she had note of a small nodule on chest CT. Today she states that she continues to do well. Her Plaquenil controls her cutaneous symptoms. She has no arthralgias, erythema or joint effusions, no skin lesions, no edema. She does have photosensitivity and limits her sun exposure. She has excessive daytime sleepiness, known snoring and witnessed apneas. HSAT from 2020 showed possible mild obstructive sleep at but she never followed through with formal in lab sleep study. She states that she can fall asleep easily when sitting watching TV or working on her computer. She is a loud snorer, in fact her brother has been bothering her to be reevaluated for apnea. Repeat CT chest 10/23/2023: Soft tissue mass along the posterior superior segment of the right lower lobe is increased in size, currently measuring 26 x 21 x 28 mm in transverse, AP and craniocaudal dimensions respectively, while previously measuring 20 x 16 x 27 mm in these same orientations. Numerous additional small lung nodules are unchanged relative to previous studies including 12/05/2021 Pleural space: No pleural effusion. No pleural thickening. Lower neck, lymph nodes, and mediastinum: There is new right hilar lymphadenopathy, measuring up to 13 mm in short axis on image 121. Additional enlarged right hilar nodes are present. 8 mm right paratracheal node. No axillary lymphadenopathy. Bronchoscopy 11/22/2023: Pathology: A - Lymph Node, Transbronchial, Aspirate/Fine Needle Aspirate - 4R Negative for malignant cells. Benign lymphoid sample. B - Lymph Node, Transbronchial, Aspirate/Fine Needle Aspirate - 11RS Positive for malignant cells. Non-small cell carcinoma. C - Lymph Node, Transbronchial, Aspirate/Fine Needle Aspirate - 11RI Positive for malignant cells. Non-small cell carcinoma. Current therapy: 1) Neoadjuvant pemetrexed, cisplatin and pembrolizumab. Completed 4 cycles. Cisplatin omitted cycles 3 and 4 due to CRISTINO. Was admitted to [facility] 05/01/2024for daily IV methylprednisolone. Underwent renal biopsy. Was given a dose of Zometa for hypercalcemia. Discharged on prednisone 30 mg daily. 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 Underwent a robotic assisted right lower lobectomy and mediastinal and hilar lymph node dissection on 05/01/2024. Pathology: FINAL DIAGNOSIS A. Lymph node, level 7, excision: - One lymph node, negative for malignancy (0/1). B. Lymph node, level 8, excision: - One lymph node, negative for malignancy (0/1). C. Lymph node, level 10R, excision: - One lymph node, negative for malignancy (0/1). D. Lymph node, level 12R, excision: - One lymph node, negative for malignancy (0/1). E. Lymph node, level 11R, excision: - One lymph node, negative for malignancy (0/1). F. Lymph node, level 11 anterior, excision: - Metastatic carcinoma in two of two lymph nodes (2/2). G. Lymph node, level 12R, excision: - Metastatic carcinoma in one of one lymph node (1/1). H. Lymph node, level 12R, excision: - One lymph node, negative for malignancy (0/1). I. Lymph node, level 9, excision: - Fibroadipose tissue, no tumor or lymph node tissue seen. J. Lung, right lower lobe, lobectomy: - Residual adenocarcinoma, solid predominant (see comment and synoptic report). - Eight lymph nodes, negative for malignancy (0/8). at 2343 EDT Diagnosis Comment J. Immunohistochemical stains performed on block J4 show that the tumor cells are negative for TTF-1 and p40. Visceral pleural invasion is confirmed by Movat special stains performed on block J4 and J6 (stain was also performed on block J7). Block for additional Biomarkers/Molecular studies J5 Synoptic Report LUNG 8th Edition - Protocol posted: 10/26/2021LUNG: RESECTION - All Specimens SPECIMEN Procedure Lobectomy Specimen Laterality Right TUMOR Tumor Focality Single focus Tumor Site Lower lobe of lung Tumor Size Total Tumor Size (size of entire tumor) Greatest Dimension (Centimeters): 2.5 cm Histologic Type Invasive solid adenocarcinoma Histologic Patterns Present Acinar: 5% Solid: 95% Histologic Grade G3, poorly differentiated Spread Through Air Spaces (LEAH) Not identified Visceral Pleura Invasion Present Direct Invasion of Adjacent Structures Not applicable (no adjacent structures present) Treatment Effect Present Percentage of Residual Viable Tumor 75 % Percentage of Necrosis 10 % Percentage of Stroma (includes fibrosis and inflammation) 15 % Lymphovascular Invasion Present MARGINS Margin Status for Invasive Carcinoma All margins negative for invasive carcinoma Closest Margin(s) to Invasive Carcinoma Bronchial Vascular Parenchymal Distance from Invasive Carcinoma to Closest Margin 3.3 cm Margin Status for Non-Invasive Tumor Not applicable REGIONAL LYMPH NODES Lymph Node(s) from Prior Procedures Not included Regional Lymph Node Status Tumor present in regional lymph node(s) Number of Lymph Nodes with Tumor 3 [place] Site(s) with Tumor 11R: Interlobar 12R: Lobar Number of Lymph Nodes Examined 17 Shanice Site(s) Examined 8R: Para-esophageal (below flex) 9R: Pulmonary ligament 10R: Hilar 11R: Interlobar 12R: Lobar 7: Subcarinal PATHOLOGIC STAGE CLASSIFICATION (pTNM, AJCC 8th Edition) Reporting of pT, pN, and (when applicable) pM categories is based on information available to the pathologist at the time the report is issued. As per the AJCC (Chapter 1, 8th Ed.) it is the managing physician s responsibility to establish the final pathologic stage based upon all pertinent information, including but potentially not limited to this pathology report. TNM Descriptors y (post-treatment) pT Category pT2a pN Category pN1 No new concerns today. Appetite:Ok. Wt. up 2# since last visit. Energy level:I'd say fair. Denies fevers. Mouth:denies sores Resp:denies cough or sob Cardiac:denies chest pain/palpitations GI:denies abd pain, n/v, moving bowels regularly :denies dysuria/hematuria Extrem:denies new pain Neuro:+neuropathy to toes-comes and goes Skin:denies rashes Heme:denies bleeding The ROS is otherwise negative. Past medical history, appointments, medications, allergies reviewed. No changes. EXAM: BP 106/70 Pulse 77 Temp 36.8 C (98.2 F) (Temporal) Wt 82.1 kg (181 lb) SpO2 97% BMI 31.07 kg/m APPEARANCE Well appearing, alert, in no acute distress, well-hydrated, well nourished. HEART RRR with normal S1 and S2, no murmurs LUNG clear to auscultation LYMPH NODES No cervical lymphadenopathy, No supraclavicular lymphadenopathy, and No axillary lymphadenopathy. ABDOMEN bowel sounds normoactive, soft, non-tender EXTREMITIES No edema NEURO Awake, alert and oriented x 3, Normal gait, and No involuntary motions. SKIN Skin color, texture, turgor normal, no suspicious rashes or lesions LABS: Latest Ref Rng 07/10/2024 07/30/2024 08/21/2024 WBC 3.70 - 11.00 k/uL 6.66 7.98 6.69 RBC 3.90 - 5.20 m/uL 3.20 (L) 3.53 (L) 3.41 (L) Hemoglobin 11.5 - 15.5 g/dL 10.2 (L) 11.0 (L) 10.6 (L) Hematocrit 36.0 - 46.0 % 30.1 (L) 32.2 (L) 31.0 (L) MCV 80.0 - 100.0 fL 94.1 91.2 90.9 MCH 26.0 - 34.0 pg 31.9 31.2 31.1 MCHC 30.5 - 36.0 g/dL 33.9 34.2 34.2 RDW-CV 11.5 - 15.0 % 12.3 12.3 12.1 Platelet Count 150 - 400 k/uL 235 250 203 MPV 9.0 - 12.7 fL 8.8 (L) 9.0 8.6 (L) Neut% % 69.6 71.6 69.1 Abs Neut (ANC) 1.45 - 7.50 k/uL 4.64 5.71 4.62 Lymph% % 14.0 11.3 15.5 Abs Lymph 1.00 - 4.00 k/uL 0.93 (L) 0.90 (L) 1.04 [place]% % 12.2 10.9 11.1 Abs [place] <0.87 k/uL 0.81 0.87 (H) 0.74 Eosin% % 3.3 5.1 3.3 Abs Eosin <0.46 k/uL 0.22 0.41 0.22 Baso% % 0.6 0.6 0.4 Abs Baso <0.11 k/uL 0.04 0.05 0.03 Immature Gran % % 0.3 0.5 0.6 IMMATURE GRANS (ABS) <0.10 k/uL <0.03 0.04 0.04 NRBC /100 WBC 0.0 0.0 0.0 Absolute nRBC <0.01 k/uL <0.01 <0.01 <0.01 DTYPE Auto Auto Auto CMP/T4/Cortisol: Pending ASSESSMENT/PLAN: 1. Non-small cell cancer of right lung (HCC) - ICD9: 162.9, ICD10: C34.[address] Castle's previous note: Assessment: -cT1c N1 (lymph node station 11 RS and 11 RI) M0 stage IIB NSCLC, adenocarcinoma of the RLL. 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 -History of PBC with evolving cirrhosis. -ypT2a pN1 M0 G3 with visceral pleural involvement. -Developed hypothyroidism. Currently titrating levothyroxine. -Reviewed lab work. Creatinine significantly improved. - Recently had ultrasound with elastography. Results yet not posted. Discussed potentially adding Cymbalta to help with chest wall pain if no evidence of cirrhosis but she would prefer to hold off on medical therapy for now. Plan: - Okay for pembrolizumab on Sunday. - Will add 3 further doses of Keytruda to make up for the doses not received in the neoadjuvant setting - Monitor hepatocellular enzymes along with alkaline phosphatase and bilirubin every cycle. - Monitor serum creatinine and BUN every cycle. - Plan CTs about 3 months from start of adjuvant therapy--end of August or beginning of September. - Referral to pulmonary medicine for reassessment of respiratory capacity. - Overall tolerating keytruda well. - Reviewed CBC with pt. - CMP/T4/Cortisol pending - Continue current medications. - Continue follow up with pulm/derm/PCP. - Proceed as scheduled tomorrow for keytruda pending labs. - Follow up as scheduled. - Pt. aware to call office with questions/concerns. The patient indicates understanding of these issues and agrees with the plan. All documentation from previous visit of 07/30/24-Dr. Castle was copied and pasted, documentation has been reviewed and edited as necessary for today's visit. Kris Esteban APRN.GALILEA documented in this encounter [facility] 08-11-2024 Instructions Sidra Hurley APRN.CNP - 08/11/2024 9:58 AM EDT FOODS RICH IN MAGNESIUM Soy products (milk, flour, tofu) Legumes and seeds. Nuts (almonds, cashews, [place] nuts) Peanuts and peanut butter. Whole grain breads and cereals (brown rice, millet) Fruit (bananas, dried apricots, etc.) - Continue SlowMag (magnesium supplement) two tablets daily--one in the morning and one in the evening. - To help raise your blood pressure, include salty foods such as chicken noodle soup or hot dogs and feel free to add salt and pepper to meals. - Aim to drink at least 64 ounces of fluids each day (about four 16-ounce bottles of water) to stay well hydrated. documented in this encounter [facility] 08-11-2024 Note [facility] 08-11-2024 History of Present illness Narrative This is a 64 year old female who presents today with: Patient presents with: Follow Up: 4 month follow up HISTORY OF PRESENT ILLNESS: Vickey Schwartz is a 64 year old female. Patient presents with: Follow Up: 4 month follow up Vickey Schwartz is a 64-year-old female with a history of lung cancer, presenting for follow-up. Lung Cancer: - Undergoing immunotherapy infusions every three weeks. - Experiences fatigue on the day of infusion and for a couple of days afterward. - Has missed three infusions prior to surgery; discussing with Dr. Russo about making up the missed sessions. - Denies nausea, emesis, or significant weight loss. - Eating and drinking well; trying to consume 64 oz of water daily. - Denies bowel or bladder issues. - Denies chest pain or orthopnea. - Occasional dyspnea and coughing spells, relieved by drinking water. - Noted SOB during a conversation with dairy farm manager last month. - Denies feeling down, depressed, hopeless, nervous, anxious, or on edge in the past two weeks. - Denies swelling in legs. - Denies lightheadedness or dizziness when standing up, but experiences dizziness when bending over for extended periods. - Feet tingling after mowing the lawn on a rider. - Taking SlowMag, 2 tablets daily (morning and evening). - Denies taking any antihypertensive medications. - Denies history of HTN. - Denies use of Compazine for nausea. - Recent lab work showed slightly low magnesium levels and elevated liver function tests. - Recent thyroid function test on July 30 was normal. - Kidney function has improved. - 40% of lung resected. - Discussed dietary intake of magnesium-rich foods. PAST MEDICAL HISTORY: PAST MEDICAL HISTORY Diagnosis Date Hemorrhage of rectum and anus HYPERLIPIDEMIA MIXED 07/10/2005 Lung nodule 06/13/2016 June 25, 2017 subcentimeter lung nodules and interstitial lung disease also stable from 2017: check CT in 1 year. Primary biliary cholangitis (HCC) Snoring Systemic lupus erythematosus (HCC) PAST SURGICAL HISTORY Procedure Laterality Date BRONCHOSCOPY 07/31/2023 COLONOSCOPY FLX DX W/COLLJ SPEC WHEN PFRMD 06/29/2016 HAD VASOVAGAL RESPONSE DURING PROCEDURE SYST BP 60'S HR 40'S-GIVEN ATROPINE CORRJ HLX VLGS BNCTY SESMDC DSTL METAR OSTEOT 1985 DIAGNOSTIC ARTHROSCOPY SHOULDER +- SYNOVIAL BX Left 04/03/2018 Left shoulder arthroscopic subacromial decompression, rotator cuff repair, and biceps tenotomy EGD 12/25/2022 repeat 2 years ESOPHAGOGASTRODUODENOSCOPY TRANSORAL DIAGNOSTIC 11/11/2018 EGD ESOPHAGOGASTRODUODENOSCOPY TRANSORAL DIAGNOSTIC 11/22/2020 repeat in 2 years FOOT SURGERY HX 1986 HYSTEROSCOPY 06/21/2017 D&C LUNG BIOPSY HX 08/24/2023 SIGMOIDOSCOPY ?2000 SKIN BIOPSY HX TONSILLECTOMY HX ALLERGIES Albuterol and Adhesive Tape (Rosins) MEDICATIONS Current Outpatient Medications Medication Sig pantoprazole DR (PROTONIX) 40 mg tablet Take 1 tablet by mouth once daily. hydrOXYchloroQUINE (PLAQUENIL) 200 mg tablet Take 1 tablet by mouth two times a day. PER DR. PINEDA (RHEUM) folic acid 1 mg tablet Take 1 tablet by mouth once daily. levothyroxine (SYNTHROID) 50 mcg tablet Take 2 tablets by mouth daily at 6 am. BIOTIN ORAL Take 1 tablet by mouth once daily. cholecalciferol, vitamin D3, (VITAMIN D3 ORAL) Take 1 tablet by mouth once daily. acetaminophen (TYLENOL) 500 mg tablet Take 2 tablets by mouth every 6 hours as needed for pain. ursodiol (ACTIGALL) 300 mg capsule Take 1 capsule by mouth three times a day. clotrimazole-betamethasone (LOTRISONE) lotion Betamethasone / Clotrimazole Clotrimazole/Betamethasone Dip [Clotrimazole-Betamethasone Lot] 30 ML TP NEEDED PRN For SKIN June 14, 2017 Active 06-14-2017 [facility] ([id number]) Clobetasol Propionate (TEMOVATE) 0.05 % external solution Apply to affected areas on the scalp twice a day. Dispense 100ml as [address] (PROTONIX) 40 mg tablet Take 40 mg by mouth once daily. iapnmvnphtGUFMN-forhyw-thuzjcyiy (BMX 1:1:1) 1:1:1 liqd Take 5 mL by mouth every 4 hours as needed. (Patient not taking: Reported on 08/11/2024) prochlorperazine (COMPAZINE) 10 mg tablet Take 1 tablet by mouth every 6 hours as needed. For chemotherapy induced nausea and vomiting. (Patient not taking: Reported on 08/11/2024) tacrolimus (PROTOPIC) 0.1 % ointment Apply twice daily to affected areas on face No current facility-administered medications for this visit. FAMILY HISTORY Problem Relation Age of Onset Diabetes Mother Hypertension Mother Stroke Mother other (? SFTP) Mother Heart Father age 60's other (PBC) Father None Brother Obstructive Sleep Apnea Brother Colon Cancer Paternal Grandmother Colon Cancer Paternal Grandfather Social History Tobacco Use Smoking status: Former Current packs/day: 0.00 Average packs/day: 0.2 packs/day for 30.0 years (4.5 ttl pk-yrs) Types: Cigarettes Start date: 1985 Quit date: 2016 Years since quittin.5 Smokeless tobacco: Never Tobacco comments: Pt smoked one pack a week x 30 years, quit 2016 Vaping Use Vaping status: Never Used Substance Use Topics Alcohol use: No Drug use: No REVIEW OF SYSTEMS Constitutional: (+) fatigue, (-) weight loss Cardiovascular: (-) chest pain, (-) lower extremity edema Respiratory: (+) dyspnea, (+) cough, (-) orthopnea Gastrointestinal: (-) nausea, (-) vomiting, (-) bowel changes Genitourinary: (-) urinary problems Neurological: (+) dizziness, (+) paresthesias Psychiatric: (-) depressed mood, (-) anhedonia, (-) anxiety EXAM: BP 94/62 Pulse 83 Wt 80.7 kg (178 lb) SpO2 97% BMI 30.55 kg/m PHYSICAL EXAM: GENERAL: NAD, alert and oriented. SKIN: Unremarkable, no rash or skin lesions. HEAD: Normocephalic. NECK: Supple, no lymphadenopathy, normal thyroid, no carotid bruits. LUNGS: Clear to auscultation bilaterally, no wheezes/rhonchi/rales. HEART: Regular rate and rhythm, no murmurs. No ectopy. EXTREMITIES: Normal, no deformities, no skin discoloration, no edema. NEURO: Awake, alert and oriented x3, cranial nerves II-XII grossly intact, normal gait, no involuntary motions. LABS: Labs: (Today) - Blood counts: Improved by 1 g - Magnesium: Slightly low - Liver function: Mildly elevated - Kidney function: Improved (07/30) Thyroid function test: Normal Tests: - Kidney biopsy: Confirmed cisplatin-induced kidney injury ASSESSMENT/PLAN: 1. Screening for depression (Z13.31) - PHQ-2 screening completed; negative for anhedonia and depressive symptoms. 2. Encounter for screening examination for other mental health and behavioral disorders (Z13.39) - Screening for anxiety disorders completed; negative for anxiety symptoms. 3. Non-small cell cancer of right lung (HCC) (C34.91) - Undergoing immunotherapy every three weeks; experiencing fatigue post-infusion. - Discussed potential benefits of immunotherapy based on previous patient outcomes. - Recent thyroid function tests pending; last checked on July 30, results were stable. - Magnesium level slightly low; patient taking SlowMag 2 tablets daily. - Provided dietary recommendations to increase magnesium intake. - Liver function tests remain slightly elevated; no current nausea or vomiting. - Hemoglobin levels improved by 1 g/dL. - Continue current treatment regimen; follow-up with oncology as scheduled. 4. Interstitial lung disease (HCC) (J84.9) - 40% lung resection performed previously. - Experiencing occasional shortness of breath and coughing spells. - Advised to maintain hydration with at least 64 ounces of water daily. - Monitor for any worsening respiratory symptoms. 5. Hypotension, unspecified hypotension type (I95.9) - Orthostatic blood pressure measurements: sitting BP 88 mmHg , standing BP inaudible. - Experiencing dizziness when bending over. - No edema observed in lower extremities. - Advised to increase dietary sodium intake to help maintain blood pressure. - Monitor for any further symptoms of hypotension. Discussed treatment plan and patient voices understanding. Patient's questions answered appropriately. Medications and potential side effects were discussed and patient voices understanding. Return to the office as scheduled or as needed for worsening/no improvement. Sidra Hurley APRN.DIRECTOR OF PURCHASING documented in this encounter [facility] 08-06-2024 Instructions Allen Valdes MD - 08/06/2024 7:14 PM EDT Flavio ramirez a virtual visit with me in 6 months. documented in this encounter [facility] 08-06-2024 Note [facility] 08-06-2024 History of Present illness Narrative [facility] [place] Department of Thoracic Surgery TELEPHONE VISIT PROGRESS NOTE This is a telephone encounter initiated for an established patient. The patient, parent or guardian is not originating from a related Evaluation & Management service provided within the previous 7 days nor leading to an Evaluation & Management service or procedure within the next 24 hours or soonest available appointment. I have communicated my name and active licensure. The patient's identity and physical location were verified at the time of this visit. Either the patient or their legal welding equipment sales representative has been informed of the risks and benefits of -- and alternatives to -- treatment through a remote evaluation and consents to proceed with the evaluation remotely. Vickey Schwartz has consented to this telephone encounter. Persons Present: Patient Total Time Spent: 21-30 minutes Suzanne Nolasco APRN.DIRECTOR OF PURCHASING [facility] - OUTPATIENT THORACIC SURGERY CLINIC NOTE PT NAME: Vickey Schwartz [facility] NO: [id number] THORACIC SURGEON: Janett Feliciano M.D. 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 Lymph node, level 7, excision: - One lymph node, negative for malignancy (0/1). B. Lymph node, level 8, excision: - One lymph node, negative for malignancy (0/1). C. Lymph node, level 10R, excision: - One lymph node, negative for malignancy (0/1). D. Lymph node, level 12R, excision: - One lymph node, negative for malignancy (0/1). E. Lymph node, level 11R, excision: - One lymph node, negative for malignancy (0/1). F. Lymph node, level 11 anterior, excision: - Metastatic carcinoma in two of two lymph nodes (2/2). G. Lymph node, level 12R, excision: - Metastatic carcinoma in one of one lymph node (1/1). H. Lymph node, level 12R, excision: - One lymph node, negative for malignancy (0/1). I. Lymph node, level 9, excision: - Fibroadipose tissue, no tumor or lymph node tissue seen. J. Lung, right lower lobe, lobectomy: - Residual adenocarcinoma, solid predominant (see comment and synoptic report). - Eight lymph nodes, negative for malignancy (0/8). at 2343 EDT Diagnosis Comment J. Immunohistochemical stains performed on block J4 show that the tumor cells are negative for TTF-1 and p40. Visceral pleural invasion is confirmed by Movat special stains performed on block J4 and J6 (stain was also performed on block J7). Block for additional Biomarkers/Molecular studies J5 Synoptic Report LUNG 8th Edition - Protocol posted: 10/26/2021LUNG: RESECTION - All Specimens SPECIMEN Procedure Lobectomy Specimen Laterality Right TUMOR Tumor Focality Single focus Tumor Site Lower lobe of lung Tumor Size Total Tumor Size (size of entire tumor) Greatest Dimension (Centimeters): 2.5 cm Histologic Type Invasive solid adenocarcinoma Histologic Patterns Present Acinar: 5% Solid: 95% Histologic Grade G3, poorly differentiated Spread Through Air Spaces (LEAH) Not identified Visceral Pleura Invasion Present Direct Invasion of Adjacent Structures Not applicable (no adjacent structures present) Treatment Effect Present Percentage of Residual Viable Tumor 75 % Percentage of Necrosis 10 % Percentage of Stroma (includes fibrosis and inflammation) 15 % Lymphovascular Invasion Present MARGINS Margin Status for Invasive Carcinoma All margins negative for invasive carcinoma Closest Margin(s) to Invasive Carcinoma Bronchial Vascular Parenchymal Distance from Invasive Carcinoma to Closest Margin 3.3 cm Margin Status for Non-Invasive Tumor Not applicable REGIONAL LYMPH NODES Lymph Node(s) from Prior Procedures Not included Regional Lymph Node Status Tumor present in regional lymph node(s) Number of Lymph Nodes with Tumor 3 Shancie Site(s) with Tumor 11R: Interlobar 12R: Lobar Number of Lymph Nodes Examined 17 Shanice Site(s) Examined 8R: Para-esophageal (below flex) 9R: Pulmonary ligament 10R: Hilar 11R: Interlobar 12R: Lobar 7: Subcarinal PATHOLOGIC STAGE CLASSIFICATION (pTNM, AJCC 8th Edition) Reporting of pT, pN, and (when applicable) pM categories is based on information available to the pathologist at the time the report is issued. As per the AJCC (Chapter 1, 8th Ed.) it is the managing physician s responsibility to establish the final pathologic stage based upon all pertinent information, including but potentially not limited to this pathology report. TNM Descriptors y (post-treatment) pT Category pT2a pN Category pN1 ADDITIONAL FINDINGS Additional Findings None identified . REASON FOR VISIT: Follow up after CXR locally HPI: Vickey Schwartz is a 64 year old female with lung nodule discovered on lung cancer screening study for surveillance of her interstitial pulmonary fibrosis.CT of the chest done in June 2023 demonstrated an interval new 13 x 19 mm right lower lobe subpleural nodule. PET scan done in July 2023 demonstrated the rght lung nodule measuring 20.6 mm with an SUV of 14.0. Perihilar lymph nodes measuring up to 11 mm which were stable in size with an SUV of 10.7. CT guided biopsy performed with pathology showing poorly differentiated non-small cell carcinoma favoring adenocarcinoma. She underwent bronchoscopy with EBUS. Samples from 11 RS demonstrated rare atypical epithelial cells and station 7 was negative for malignant cells. 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 Underwent induction of chemo immunotherapy and developed what was thought to be an inflammatory process in her kidneys resulting in renal insufficiency. On 05/01/24 she underwent Robotic Right Lower Lobectomy, Lymph node harvest as follows, Intercostal nerve blocks by Dr Feliciano. Discharged 05/03/24. REVIEW OF SYSTEMS PAIN ASSESSMENT: Denies any pain. GENERAL: Increased fatigue, related to immunotherapy. Has talked to Oncology RESPIRATORY: Has a cough sometimes, non productive. No dyspnea or wheezing. CARDIOVASCULAR: Denies chest pain or palpitations GI: No nausea, vomiting, or diarrhea IMAGING/TESTS: CXR 08/06/2024: IMPRESSION: Stable postoperative changes, right hemithorax. INTERVAL HISTORY: Vickey Schwartz has a virtual visit today for a visit following CXR completed locally. Reports some increase fatigue, she attributes this to her immunotherapy infusions. She has talked to oncology about this. She also reports a cough on occasion, non productive. Denies dyspnea, wheezing or hemoptysis. Incisional pain has resolved nearly completely. She may resume activities as tolerated. CXR shows improved right lung expansion. Return as needed. Oncology to manage. 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 PLAN: - Resume activities as tolerated - Return as needed - Oncology, Dr Vandana Nolasco APRN.DIRECTOR OF PURCHASING documented in this encounter [facility] 08-05-2024 History of Present illness Narrative VIRTUAL VISIT FOLLOW UP I have communicated my name and active licensure. The patient's identity and physical location were verified at the time of this visit. Either the patient or their legal welding equipment sales representative has been informed of the risks and benefits of -- and alternatives to -- treatment through a remote evaluation and consents to proceed with the evaluation remotely. I had a virtual visit with Ms. Schwartz today for follow up of primary bilary cirrhosis. UPDATED HISTORY: HPI: The patient is a 64-year-old female with known primary biliary cirrhosis with current MELD-Na of 8, presenting for ongoing management and follow-up. She reports difficulty motivating herself to go for walks, attributing this primarily to the hot and humid weather and, at times, to low energy. She states that she remains active with household activities. She denies discomfort as a limiting factor for walking, emphasizing that heat and lack of energy are the main barriers. She notes that her energy level is not what it used to be, and on days when she feels well, she makes an effort to accomplish tasks around the house. She describes ongoing respiratory symptoms, including shortness of breath and episodes of severe coughing, which can sometimes occur while eating. She is cautious to avoid aspiration during these episodes and finds that sipping water usually helps, depending on how quickly she responds. She also reports feeling drowsy at times after her immunotherapy treatments, which she receives every three weeks. She continues to follow with her optoelectronics engineer, Dr. 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 She notes that approximately 40% of her lung is missing, contributing to her respiratory limitations. She recently underwent a FibroScan, which showed some liver scarring but not a significant amount, and she expresses relief at this result. She reports that her current medications include Plutonix, for which she recently received a three-month supply refill, flaconolol, and Versadil, with no further details provided regarding dosages or indications. She did not report any new gastrointestinal symptoms during this encounter. Diagnostics: (No Date) FibroScan: Mild hepatic scarring noted. PAST MEDICAL HISTORY Diagnosis Date Hemorrhage of rectum and anus HYPERLIPIDEMIA MIXED 07/10/2005 Lung nodule 06/13/2016 June 25, 2017 subcentimeter lung nodules and interstitial lung disease also stable from 2017: check CT in 1 year. Primary biliary cholangitis (HCC) Snoring Systemic lupus erythematosus (HCC) PAST SURGICAL HISTORY Procedure Laterality Date BRONCHOSCOPY 07/31/2023 COLONOSCOPY FLX DX W/COLLJ SPEC WHEN PFRMD 06/29/2016 HAD VASOVAGAL RESPONSE DURING PROCEDURE SYST BP 60'S HR 40'S-GIVEN ATROPINE CORRJ HLX VLGS BNCTY SESMDC DSTL METAR OSTEOT 1985 DIAGNOSTIC ARTHROSCOPY SHOULDER +- SYNOVIAL BX Left 04/03/2018 Left shoulder arthroscopic subacromial decompression, rotator cuff repair, and biceps tenotomy EGD 12/25/2022 repeat 2 years ESOPHAGOGASTRODUODENOSCOPY TRANSORAL DIAGNOSTIC 11/11/2018 EGD ESOPHAGOGASTRODUODENOSCOPY TRANSORAL DIAGNOSTIC 11/22/2020 repeat in 2 years FOOT SURGERY HX 1986 HYSTEROSCOPY 06/21/2017 D&C LUNG BIOPSY HX 08/24/2023 SIGMOIDOSCOPY ?2000 SKIN BIOPSY HX TONSILLECTOMY HX FAMILY HISTORY Problem Relation Age of Onset Diabetes Mother Hypertension Mother Stroke Mother other (? SFTP) Mother Heart Father age 60's other (PBC) Father None Brother Obstructive Sleep Apnea Brother Colon Cancer Paternal Grandmother Colon Cancer Paternal Grandfather Social History Tobacco Use Smoking status: Former Current packs/day: 0.00 Average packs/day: 0.2 packs/day for 30.0 years (4.5 ttl pk-yrs) Types: Cigarettes Start date: 1985 Quit date: 2016 Years since quittin.4 Smokeless tobacco: Never Tobacco comments: Pt smoked one pack a week x 30 years, quit 2016 Vaping Use Vaping status: Never Used Substance Use Topics Alcohol use: No Drug use: No Current Outpatient Medications Medication Sig Dispense Refill pantoprazole DR (PROTONIX) 40 mg tablet Take 1 tablet by mouth once daily. 90 tablet 0 hydrOXYchloroQUINE (PLAQUENIL) 200 mg tablet Take 1 tablet by mouth two times a day. PER DR. PINEDA (RHEUM) 180 tablet 1 folic acid 1 mg tablet Take 1 tablet by mouth once daily. 90 tablet 2 levothyroxine (SYNTHROID) 50 mcg tablet Take 2 tablets by mouth daily at 6 am. 180 tablet 0 BIOTIN ORAL Take 1 tablet by mouth once daily. cholecalciferol, vitamin D3, (VITAMIN D3 ORAL) Take 1 tablet by mouth once daily. pantoprazole DR (PROTONIX) 40 mg tablet Take 40 mg by mouth once daily. acetaminophen (TYLENOL) 500 mg tablet Take 2 tablets by mouth every 6 hours as needed for pain. [id number]-ocqmik-cvilpioty (BMX 1:1:1) 1:1:1 liqd Take 5 mL by mouth every 4 hours as needed. 473 mL 2 ursodiol (ACTIGALL) 300 mg capsule Take 1 capsule by mouth three times a day. 270 capsule 3 prochlorperazine (COMPAZINE) 10 mg tablet Take 1 tablet by mouth every 6 hours as needed. For chemotherapy induced nausea and vomiting. 30 tablet 2 clotrimazole-betamethasone (LOTRISONE) lotion Betamethasone / Clotrimazole Clotrimazole/Betamethasone Dip [Clotrimazole-Betamethasone Lot] 30 ML TP NEEDED PRN For SKIN June 14, 2017 Active 06-14-2017 [facility] ([id number]) tacrolimus (PROTOPIC) 0.1 % ointment Apply twice daily to affected areas on face 30 g 3 Clobetasol Propionate (TEMOVATE) 0.05 % external solution Apply to affected areas on the scalp twice a day. Dispense 100ml as 30 day supply. 100 mL 3 No current facility-administered medications for this visit. Facility-Administered Medications Ordered in Other Visits Medication Dose Route Frequency Provider Last Rate Last Admin pembrolizumab 200 mg in NaCl 0.9% 66 mL (KEYTRUDA) 200 mg INTRAVENOUS ONCE Alf Castle DO 200 mg at 08/01/24 1401 NaCl 0.9% iv infusion 500-999 mL/hr INTRAVENOUS PRN Alf Castle DO diphenhydrAMINE 50 mg injection (BENADRYL) 50 mg INTRAVENOUS PRN Alf Castle DO hydrocortisone sodium succinate (PF) 100 mg injection (Solu-CORTEF) 100 mg INTRAVENOUS PRN Alf Castle DO EPINEPHrine HCl (PF) 1 mg/mL (1 mL) 0.3 mg injection 0.3 mg INTRAMUSCULAR PRN Alf Castle DO ALLERGIES Allergen Reactions Albuterol Other: See Comments kyra Morrison Adhesive Tape (Sammi* Itching Itching and redness Labs Latest Ref Rng 07/30/2024 Protein, Total 6.3 - 8.0 g/dL 7.6 Albumin 3.9 - 4.9 g/dL 3.9 Calcium 8.5 - 10.2 mg/dL 10.0 Bilirubin, Total 0.2 - 1.3 mg/dL 0.3 Alkaline Phosphatase 34 - 123 U/L 242 (H) AST 13 - 35 U/L 35 Glucose 74 - 99 mg/dL 87 BUN 7 - 21 mg/dL 15 Creatinine 0.58 - 0.96 mg/dL 0.92 Sodium 136 - 144 mmol/L 136 Potassium 3.7 - 5.1 mmol/L 3.9 Chloride 98 - 107 mmol/L 104 CO2 22 - 30 mmol/L 21 (L) Anion Gap 8 - 15 mmol/L 11 ALT 7 - 38 U/L 34 eGFR >=60 mL/min/1.73m 70 Latest Ref Rng 07/30/2024 WBC 3.70 - 11.00 k/uL 7.98 RBC 3.90 - 5.20 m/uL 3.53 (L) Hemoglobin 11.5 - 15.5 g/dL 11.0 (L) Hematocrit 36.0 - 46.0 % 32.2 (L) MCV 80.0 - 100.0 fL 91.2 MCH 26.0 - 34.0 pg 31.2 MCHC 30.5 - 36.0 g/dL 34.2 RDW-CV 11.5 - 15.0 % 12.3 Platelet Count 150 - 400 k/uL 250 MPV 9.0 - 12.7 fL 9.0 Neut% % 71.6 Abs Neut (ANC) 1.45 - 7.50 k/uL 5.71 Lymph% % 11.3 Abs Lymph 1.00 - 4.00 k/uL 0.90 (L) [place]% % 10.9 Abs [place] <0.87 k/uL 0.87 (H) Eosin% % 5.1 Abs Eosin <0.46 k/uL 0.41 Baso% % 0.6 Abs Baso <0.11 k/uL 0.05 Nucleated Reds 0 /100 WBC Absolute nRBC <0.01 k/uL <0.01 Diff Type Immature Gran % % 0.5 IMMATURE GRANS (ABS) <0.10 k/uL 0.04 NRBC /100 WBC 0.0 DTYPE Auto Procedure Fibroscan-07/02/24 Impression The liver stiffness is 12.5 kPa which corresponds to 56% chance of stage F0-F2 fibrosis. The CAP analysis showed grade S2 of liver steatosis. Stage of liver fibrosis based on above kPa: A 56% chance of stage 0-2 fibrosis A 43% chance of stage 3-4 fibrosis (advanced fibrosis) A 14% chance of stage 4 fibrosis (cirrhosis). A kPa >20 indicates a high likelihood of stage 4 fibrosis/cirrhosis, consider further testing to confirm and refer to hepatology. PHYSICAL FINDINGS OF NOTE: General - Normal, healthy, cooperative, in no acute distress Able to interact verbally by video conference REVIEWED ITEMS Imaging: - FibroScan: Mild hepatic scarring. IMPRESSION The patient is a 64-year-old female. She was last seen by me on 06/18/2024 with the following cumulative impression: 64-year-old female. She was last seen by me on 10/17/2023 with the following cumulative impression: 62-year-old female with a follow-up visit for primary biliary cirrhosis. She was last seen 11/22/2022 with the following impression: 60-year-old female with primary biliary cirrhosis. Her last office visit was 01/21/2020 with the following impression: The patient is doing great she is feeling well. Her LFTs are improved with minimal elevation of her alk phos. She had a follow-up right upper quadrant ultrasound showing adenomyomatosis of the gallbladder. The study was suboptimal because of gas in the abdomen. Her LFTs are improved as above. Her last EGD was in November 2018 and was normal. At this time we will have the patient follow-up with her blood test in 6 months. Would like to pursue a repeat endoscopy in November 2020. The patient will continue her medications at the above dosage. The patient's last FibroScan was 02/27/2019 with the following impression: Impression. The reading was adequate, and corresponds to Fibrosis stage F2 and steatosis grade of S3. The patient currently is feeling great she is having no pruritus, abdominal pain, confusion, weight gain. At this time she is scheduled for an EGD for varices E surveillance in November of this year. We will obtain repeat blood testing and a 6-month interval repeat right upper quadrant ultrasound. Since that time the patient has been doing very well. She is having no abdominal pain confusion, change in gait, abdominal pain, swelling, edema or bleeding. She did have on 11/12/2020 MRCP showing benign gallbladder adenomatosis no stones or biliary dilatation there was no gallbladder polyp. On 10/20/2020 she had a right upper quadrant ultrasound showing showing normal liver echotexture. On 11/22/2020 she had an EGD that was negative for Milton's and negative for varices. She will have a repeat EGD in 2 years. Her LFTs show persistent mild elevation of her alkaline phosphatase but normal transaminases. At this time we will repeat her LFTs continue her on the Actigall 300 3 times daily. We will plan on a repeat visit in 1 year. Update 11/22/2022: The patient is feeling great she is having no confusion, change in gait, observable clinical bleeding, or fluid retention. Her LFTs are now completely normal. At this time we will plan for 2-year interval EGD, annual right upper quadrant ultrasound, and every 6 months LFTs. I did offer to the patient to be seen by the primary sclerosing cholangitis/PSC study group but she declines at this time. Update 04/04/2023: Since that time the patient is doing well. Her LFTs are essentially normal, her follow-up sonogram showed sleep coarse echotexture, and her EGD did not show any varices. She is doing great and will continue on her current dose of medications and routine LFTs. She does have a gallbladder polyp that is increasing in size for which we will get an MRCP. Update 10/17/2023: Since that time the patient had the above described MRCP which shows adenomyomatosis of the gallbladder. Her LFTs were completely normal. However she has developed a new problem of a pulmonary malignancy. The cytology just came back and showed a poorly differentiated non-small cell carcinoma favor adenocarcinoma. Currently she is doing well from a GI perspective. I would suggest continuing medications and no other diagnostic tests from our perspective currently. Will see her back after treatment for her pulmonary malignancy. Will plan on a virtual visit in 3 to 4 months. Update 06/17/24: 1. Primary biliary cirrhosis (HCC) (K74.3) Patient has been following with Dr. Russo in [place] for non-small cell cancer of the right lung. Recent labs show an alkaline phosphatase of 277, normal transaminases, and normal bilirubin. CT of the abdomen on 04/01/24 showed no hydronephrosis or hydroureter, with suspicion of cirrhosis. Imaging suggests worsening hepatic fibrosis cirrhosis. LFTs are better than a few months ago. - Ordered FibroScan to assess the extent of hepatic fibrosis; schedulers to arrange the test in [place] or the closest location. - Continue monitoring liver function tests. 2. 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 LFTs are completely normal. 3. Non-small cell cancer of right lung (HCC) (C34.91) Patient has a CT1CN1 non-small cell cancer of the right lung. Completed treatment with Alimta and cisplatin; currently on Keytruda with no reported issues. Patient underwent robotic surgery on 05/01/24, removing 40% of the lower right lobe. 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 - Continue Keytruda therapy. - Follow-up with Dr. Russo tomorrow. - Discussed the importance of avoiding dust and pollutants; consider alternative work environments. PLAN We discussed your liver health and primary biliary cirrhosis: - Your liver function tests (LFTs) look good, with normal liver enzymes and bilirubin. Your alkaline phosphatase (Alk Phos) is stable at 277, which is consistent with prior results. - Imaging shows some lobularity and scarring in the liver, which is expected. To better assess the extent of liver scarring, I recommend a FibroScan, a specialized ultrasound that provides a score of liver fibrosis. We will work on scheduling this for you, preferably in [place] if available. - Keytruda, your current treatment for lung cancer, can sometimes cause liver inflammation, but this is not occurring in your case. We will continue to monitor your liver function closely. We discussed your pulmonary malignancy and treatment: - You have completed Alimta and cisplatin chemotherapy and are now on Keytruda. You are tolerating this well, and your kidney function is being monitored as part of your ongoing care. - You will follow up with Dr. Castle tomorrow regarding your lung cancer management. We discussed your post-surgical recovery: - You are still experiencing some numbness in the surgical area following your lung surgery on May 01. This is normal and may take up to six months to fully resolve. - You are currently on short-term disability until July 05. Please keep your providers updated on any changes to your work or disability status. We discussed your medications: - If you are running low on Protonix, please send me a message through MyChart, and I will call in a refill for you. - For Plaquenil, you will need to contact your surfacing technician to have the prescription renewed. Next steps: - Schedule a FibroScan to assess liver fibrosis. We will coordinate with the schedulers to find a location, ideally in [place]. - Continue monitoring your symptoms and let us know if you experience any new or worsening issues. - Follow up with Dr. Russo as planned for your lung cancer care. Please reach out if you have any questions or concerns. Update 08/05/2024: MELD 3.0: 13 at 04/15/2024 2:15 PM MELD-Na: 8 at 04/15/2024 2:15 PM Calculated from: Serum Creatinine: 1.23 mg/dL at 04/15/2024 2:15 PM Serum Sodium: 133 mmol/L at 04/15/2024 2:15 PM Total Bilirubin: 0.5 mg/dL (Using min of 1 mg/dL) at 04/15/2024 2:15 PM Serum Albumin: 4.4 g/dL (Using max of 3.5 g/dL) at 04/15/2024 2:15 PM INR(ratio): 1 at 04/15/2024 2:15 PM Age at listing (hypothetical): 63 years Sex: Female at 04/15/2024 2:15 PM 1. Shortness of breath (R06.02) Cough, unspecified type (R05.9) Persistent dyspnea and cough, exacerbated during eating, raising concerns for potential aspiration. Patient is under the care of Dr. Russo and has a pulmonary function test scheduled for September 03. - Continue monitoring symptoms. - Discussed the importance of avoiding environmental irritants, such as diesel fumes, which may exacerbate respiratory symptoms. - Follow-up with Dr. Russo for further management post-pulmonary function test. 2. Encounter for immunotherapy (Z29.89) Undergoing immunotherapy every 3 weeks, experiencing fatigue and drowsiness post-treatment. Patient has concerns about returning to work due to treatment schedule and side effects. - Continue current immunotherapy regimen. - Discussed potential side effects of immunotherapy, including fatigue and drowsiness. - Advised patient to continue discussions with Dr. Russo regarding medical leave or disability options. - Refill prescription for Plutonix. RECOMMENDATION: We discussed your liver health: - Your recent FibroScan showed some scarring in your liver, but not a significant amount. This is good news. We will continue to monitor your liver function tests and bloodwork. - I recommend rechecking your bloodwork in 6 months. No additional tests are needed at this time. We discussed your lung health and breathing concerns: - You reported ongoing shortness of breath and episodes of coughing, sometimes triggered while eating. Please continue to take small sips of water during these episodes to help calm the coughing. - You are scheduled for a breathing test on September 03 to further evaluate your lung function. Please keep this appointment. We discussed your immunotherapy treatments: - It is normal to feel drowsy after immunotherapy treatments. While immunotherapy is effective, it can have side effects. Please continue to monitor how you feel after treatments and discuss any concerns with Dr. Russo. - You are currently undergoing treatments every 3 weeks. Continue with this schedule as planned. We discussed your work and disability concerns: - You expressed concerns about returning to work due to your ongoing treatments, reduced energy levels, and the physical demands of your job. You are taking appropriate steps by discussing medical leave and disability options with Dr. Russo and your primary team. - You are gathering necessary documentation, including the results of your upcoming breathing test, to support your disability application. Please continue to work with Dr. Russo and your HR department on this process. We discussed your medications: - If you notice you are running low on any other medications, please send me a [employer] message, and I will assist with refills. Please continue to monitor your symptoms and let me know if you experience any changes or worsening of your condition. If you have any questions or concerns, feel free to reach out via [employer]. I spent more than 30 minutes [id number] with the patient and over half the time was devoted to counseling and/or coordination of care. Allen Valdes MD documented in this encounter [facility] 08-05-2024 Note [facility] 08-05-2024 History of Present illness Narrative Radiology Service Progress Note PATIENT NAME: Vickey Schwartz DATE OF SERVICE: August 05, 2024 TIME: 8:27 PM PATIENT IDENTITY VERIFICATION COMPLETED USING TWO (2) IDENTIFIERS: Name and Date of confirmed by patient verbally. FALL SCREENING: Has the patient had 2 falls in the last year or 1 fall with injury or currently using an Ambulatory Assistive Device (Walker, Cane, Wheelchair, Crutches, etc.)? No PATIENT GENDER DATA: Assigned female at . status: : No status: NO. PATIENT RELEVANT IMPLANT DATA REVIEWED: Not Applicable PATIENT PRESENTS WITH AN IMPLANTABLE OR ATTACHED PREPRESS SPECIALIST: No RADIOLOGY DEPARTMENT: General X-ray: Exam(s) Completed: Chest X-Ray PERIPHERAL IV DATA: Not applicable SIGNED BY: RT Alee(R) August 05, 2024 8:27 PM documented in this encounter [facility] 08-05-2024 Note [facility] 08-01-2024 Note HNO ID: [id number] Author: KATELYN SANTANA RN Service: ? Author Type: Registered Nurse Type: Progress Notes Filed: 08/01/2024 14:35 Note Text: Assessment unchanged from 07/30/[address] Castle [facility] 08-01-2024 History of Present illness Narrative Assessment unchanged from 07/30/[address] Castle documented in this encounter [facility] 07-31-2024 Telephone encounter Note Done. [facility] 07-31-2024 Miscellaneous Notes Done. Patient called for a refill Requested Prescriptions Pending Prescriptions Disp Refills pantoprazole DR (PROTONIX) 40 mg tablet 90 tablet 1 Sig: Take 1 tablet by mouth once daily. documented in this encounter [facility] 07-30-2024 Telephone encounter Note Patient called for a refill Requested Prescriptions Pending Prescriptions Disp Refills pantoprazole DR (PROTONIX) 40 mg tablet 90 tablet 1 Sig: Take 1 tablet by mouth once daily. [facility] Work Phone: 07-30-2024 Note [facility] 07-30-2024 History of Present illness Narrative Oncologic problem(s): 1) Stage II NSCLC, adenocarcinoma. HPI: The patient is a 64-year-old female with a past medical history as outlined below. The patient is a former smoker of approximately 7-pack-year, quit in 2015. She is on Plaquenil for history of lupus. She has primary biliary cholangitis. She had a nodule discovered on lung cancer screening study for surveillance of her interstitial pulmonary fibrosis. A CT of the chest done in June 2023 demonstrated an interval new 13 x 19 mm right lower lobe subpleural nodule. PET scan done in July showed the nodule to measure 20.6 mm with an SUV of 14.0. Perihilar lymph nodes measuring up to 11 mm which were stable in size with an SUV of 10.7. She underwent a CT-guided biopsy of the right lower lobe nodule. Pathology demonstrated poorly differentiated non-small cell carcinoma favoring adenocarcinoma. She underwent bronchoscopy with EBUS. Samples from 11 RS demonstrated rare atypical epithelial cells and station 7 was negative for malignant cells. 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 CT has been stable and pulmonary function tests do not show restriction or low diffusing capacity. Patient prefers pulmonary follow-up closer to home. Patient is asymptomatic so antifibrotic therapy has been on hold. 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 She denies significant dyspnea except for with extreme activity. Chronic cough or sputum production. No wheezing. She used to smoke a pack a week but quit in 2015 when she had note of a small nodule on chest CT. Today she states that she continues to do well. Her Plaquenil controls her cutaneous symptoms. She has no arthralgias, erythema or joint effusions, no skin lesions, no edema. She does have photosensitivity and limits her sun exposure. She has excessive daytime sleepiness, known snoring and witnessed apneas. HSAT from 2020 showed possible mild obstructive sleep at but she never followed through with formal in lab sleep study. She states that she can fall asleep easily when sitting watching TV or working on her computer. She is a loud snorer, in fact her brother has been bothering her to be reevaluated for apnea. Repeat CT chest 10/23/2023: Soft tissue mass along the posterior superior segment of the right lower lobe is increased in size, currently measuring 26 x 21 x 28 mm in transverse, AP and craniocaudal dimensions respectively, while previously measuring 20 x 16 x 27 mm in these same orientations. Numerous additional small lung nodules are unchanged relative to previous studies including 12/05/2021 Pleural space: No pleural effusion. No pleural thickening. Lower neck, lymph nodes, and mediastinum: There is new right hilar lymphadenopathy, measuring up to 13 mm in short axis on image 121. Additional enlarged right hilar nodes are present. 8 mm right paratracheal node. No axillary lymphadenopathy. Bronchoscopy 11/22/2023: Pathology: A - Lymph Node, Transbronchial, Aspirate/Fine Needle Aspirate - 4R Negative for malignant cells. Benign lymphoid sample. B - Lymph Node, Transbronchial, Aspirate/Fine Needle Aspirate - 11RS Positive for malignant cells. Non-small cell carcinoma. C - Lymph Node, Transbronchial, Aspirate/Fine Needle Aspirate - 11RI Positive for malignant cells. Non-small cell carcinoma. Current therapy: 1) Neoadjuvant pemetrexed, cisplatin and pembrolizumab. Completed 4 cycles. Cisplatin omitted cycles 3 and 4 due to CRISTINO. Was admitted to [facility] 05/01/2024for daily IV methylprednisolone. Underwent renal biopsy. Was given a dose of Zometa for hypercalcemia. Discharged on prednisone 30 mg daily. 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 Underwent a robotic assisted right lower lobectomy and mediastinal and hilar lymph node dissection on 05/01/2024. Pathology: FINAL DIAGNOSIS A. Lymph node, level 7, excision: - One lymph node, negative for malignancy (0/1). B. Lymph node, level 8, excision: - One lymph node, negative for malignancy (0/1). C. Lymph node, level 10R, excision: - One lymph node, negative for malignancy (0/1). D. Lymph node, level 12R, excision: - One lymph node, negative for malignancy (0/1). E. Lymph node, level 11R, excision: - One lymph node, negative for malignancy (0/1). F. Lymph node, level 11 anterior, excision: - Metastatic carcinoma in two of two lymph nodes (2/2). G. Lymph node, level 12R, excision: - Metastatic carcinoma in one of one lymph node (1/1). H. Lymph node, level 12R, excision: - One lymph node, negative for malignancy (0/1). I. Lymph node, level 9, excision: - Fibroadipose tissue, no tumor or lymph node tissue seen. J. Lung, right lower lobe, lobectomy: - Residual adenocarcinoma, solid predominant (see comment and synoptic report). - Eight lymph nodes, negative for malignancy (0/8). at 2343 EDT Diagnosis Comment J. Immunohistochemical stains performed on block J4 show that the tumor cells are negative for TTF-1 and p40. Visceral pleural invasion is confirmed by Movat special stains performed on block J4 and J6 (stain was also performed on block J7). Block for additional Biomarkers/Molecular studies J5 Synoptic Report LUNG 8th Edition - Protocol posted: 10/26/2021LUNG: RESECTION - All Specimens SPECIMEN Procedure Lobectomy Specimen Laterality Right TUMOR Tumor Focality Single focus Tumor Site Lower lobe of lung Tumor Size Total Tumor Size (size of entire tumor) Greatest Dimension (Centimeters): 2.5 cm Histologic Type Invasive solid adenocarcinoma Histologic Patterns Present Acinar: 5% Solid: 95% Histologic Grade G3, poorly differentiated Spread Through Air Spaces (LEAH) Not identified Visceral Pleura Invasion Present Direct Invasion of Adjacent Structures Not applicable (no adjacent structures present) Treatment Effect Present Percentage of Residual Viable Tumor 75 % Percentage of Necrosis 10 % Percentage of Stroma (includes fibrosis and inflammation) 15 % Lymphovascular Invasion Present MARGINS Margin Status for Invasive Carcinoma All margins negative for invasive carcinoma Closest Margin(s) to Invasive Carcinoma Bronchial Vascular Parenchymal Distance from Invasive Carcinoma to Closest Margin 3.3 cm Margin Status for Non-Invasive Tumor Not applicable REGIONAL LYMPH NODES Lymph Node(s) from Prior Procedures Not included Regional Lymph Node Status Tumor present in regional lymph node(s) Number of Lymph Nodes with Tumor 3 Shanice Site(s) with Tumor 11R: Interlobar 12R: Lobar Number of Lymph Nodes Examined 17 Shanice Site(s) Examined 8R: Para-esophageal (below flex) 9R: Pulmonary ligament 10R: Hilar 11R: Interlobar 12R: Lobar 7: Subcarinal PATHOLOGIC STAGE CLASSIFICATION (pTNM, AJCC 8th Edition) Reporting of pT, pN, and (when applicable) pM categories is based on information available to the pathologist at the time the report is issued. As per the AJCC (Chapter 1, 8th Ed.) it is the managing physician s responsibility to establish the final pathologic stage based upon all pertinent information, including but potentially not limited to this pathology report. TNM Descriptors y (post-treatment) pT Category pT2a pN Category pN1 Presents for ongoing oncologic management. Interim history: She was having pain along the right chest wall from her previous surgery. Very gradually improving. Exacerbated with turning. She has been getting shortness of breath but that occurred after surgery. She has a physically demanding job and is having trouble maintaining her work. Occasional cough. No hemoptysis. PAST MEDICAL HISTORY Diagnosis Date Hemorrhage of rectum and anus HYPERLIPIDEMIA MIXED 07/10/2005 Lung nodule 06/13/2016 June 25, 2017 subcentimeter lung nodules and interstitial lung disease also stable from 2017: check CT in 1 year. Primary biliary cholangitis (HCC) Snoring Systemic lupus erythematosus (HCC) PAST SURGICAL HISTORY Procedure Laterality Date BRONCHOSCOPY 07/31/2023 COLONOSCOPY FLX DX W/COLLJ SPEC WHEN PFRMD 06/29/2016 HAD VASOVAGAL RESPONSE DURING PROCEDURE SYST BP 60'S HR 40'S-GIVEN ATROPINE CORRJ HLX VLGS BNCTY SESMDC DSTL METAR OSTEOT 1986 DIAGNOSTIC ARTHROSCOPY SHOULDER +- SYNOVIAL BX Left 04/03/2018 Left shoulder arthroscopic subacromial decompression, rotator cuff repair, and biceps tenotomy EGD 12/25/2022 repeat 2 years ESOPHAGOGASTRODUODENOSCOPY TRANSORAL DIAGNOSTIC 11/11/2018 EGD ESOPHAGOGASTRODUODENOSCOPY TRANSORAL DIAGNOSTIC 11/22/2020 repeat in 2 years FOOT SURGERY HX 1986 HYSTEROSCOPY 06/21/2017 D&C LUNG BIOPSY HX 08/24/2023 SIGMOIDOSCOPY ?1999 SKIN BIOPSY HX TONSILLECTOMY HX folic acid 1 mg tablet Take 1 tablet by mouth once daily. levothyroxine (SYNTHROID) 50 mcg tablet Take 2 tablets by mouth daily at 6 am. hydrOXYchloroQUINE (PLAQUENIL) 200 mg tablet Take 200 mg by mouth two times a day. PER DR. PINEDA (RHEUM) BIOTIN ORAL Take 1 tablet by mouth once daily. cholecalciferol, vitamin D3, (VITAMIN D3 ORAL) Take 1 tablet by mouth once daily. pantoprazole DR (PROTONIX) 40 mg tablet Take 40 mg by mouth once daily. acetaminophen (TYLENOL) 500 mg tablet Take 2 tablets by mouth every 6 hours as needed for pain. tzcxdwjfcyVMAZM-dsdylf-nvzxewosh (BMX 1:1:1) 1:1:1 liqd Take 5 mL by mouth every 4 hours as needed. ursodiol (ACTIGALL) 300 mg capsule Take 1 capsule by mouth three times a day. prochlorperazine (COMPAZINE) 10 mg tablet Take 1 tablet by mouth every 6 hours as needed. For chemotherapy induced nausea and vomiting. clotrimazole-betamethasone (LOTRISONE) lotion Betamethasone / Clotrimazole Clotrimazole/Betamethasone Dip [Clotrimazole-Betamethasone Lot] 30 ML TP NEEDED PRN For SKIN June 14, 2017 Active 06-14-2017 [facility] ([id number]) tacrolimus (PROTOPIC) 0.1 % ointment Apply twice daily to affected areas on face Clobetasol Propionate (TEMOVATE) 0.05 % external solution Apply to affected areas on the scalp twice a day. Dispense 100ml as 30 day supply. cinacalcet (SENSIPAR) 30 mg tablet Take 30 mg by mouth once daily. (Patient not taking: Reported on 07/30/2024) ALLERGIES Allergen Reactions Albuterol Other: See Comments kyra Morrison Adhesive Tape (Sammi* Itching Itching and redness FAMILY HISTORY Problem Relation Age of Onset Diabetes Mother Hypertension Mother Stroke Mother other (? SFTP) Mother Heart Father age 60's other (PBC) Father None Brother Obstructive Sleep Apnea Brother Colon Cancer Paternal Grandmother Colon Cancer Paternal Grandfather Social History Tobacco Use Smoking status: Former Current packs/day: 0.00 Average packs/day: 0.2 packs/day for 30.0 years (4.5 ttl pk-yrs) Types: Cigarettes Start date: 1985 Quit date: 2016 Years since quittin.4 Smokeless tobacco: Never Tobacco comments: Pt smoked one pack a week x 30 years, quit 2016 Vaping Use Vaping status: Never Used Substance Use Topics Alcohol use: No Drug use: No REVIEW OF SYSTEMS: Constitutional: No episodes of fever and night sweats. Not significantly fatigued. Neuro: No GUTIERREZ, vertigo, dizziness and imbalance. HEENT: No recent change in voice, vision or hearing. Resp: See above. CVS: Denies exertional chest pain, PND, orthopnea and LE edema. GI: Denies reflux, n/v, change in bowel habits and abdominal pain. : Denies dysuria or gross hematuria. No symptoms of bladder outlet obstruction. Endo: Denies hot flashes. Musculoskeletal: See above. Derm: Heme: Denies unusual bleeding and unexplained bruising. Psych: Normal mood. PHYSICAL EXAM: Vitals: Blood pressure 102/70, pulse 75, temperature 36.9 C (98.5 F), temperature source Temporal, weight 81.4 kg (179 lb 8 oz), SpO2 97%. Well-appearing and in no acute distress. EYES: Sclerae are anicteric bilaterally. No palpable cervical or supraclavicular adenopathy. Surgical sites well-healed. There is tenderness without mass along the rib line from the second highest incision. Respiratory breath sounds are uniformly mildly diminished throughout. IMAGING: PET [facility] 07/17/2023: 20.6 mm hypermetabolic nodule right mid posterior, right lower lobe with SUV 14.0. There was also FDG G uptake noted in the right thoracic perihilar and generating an SUV of 10.3. The maximal axial diameter the metabolic, morphologic abnormality is 10.7 mm. Genetic testing: NGS/biomarkers/flatbed truck driver mutation analyses: Thaniawali 10/30/2023: -No flatbed truck driver mutations. -BRAF p([id number]) variant of potential clinical significance. Tier II. ASSESSMENT/PLAN: (C34.91) Non-small cell cancer of right lung (HCC) (primary encounter diagnosis) Assessment: -cT1c N1 (lymph node station 11 RS and 11 RI) M0 stage IIB NSCLC, adenocarcinoma of the RLL. 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 -History of PBC with evolving cirrhosis. -ypT2a pN1 M0 G3 with visceral pleural involvement. -Developed hypothyroidism. Currently titrating levothyroxine. -Reviewed lab work. Creatinine significantly improved. - Recently had ultrasound with elastography. Results yet not posted. Discussed potentially adding Cymbalta to help with chest wall pain if no evidence of cirrhosis but she would prefer to hold off on medical therapy for now. Plan: - Okay for pembrolizumab on Sunday. - Will add 3 further doses of Keytruda to make up for the doses not received in the neoadjuvant setting - Monitor hepatocellular enzymes along with alkaline phosphatase and bilirubin every cycle. - Monitor serum creatinine and BUN every cycle. - Plan CTs about 3 months from start of adjuvant therapy--end of August or beginning of September. - Referral to pulmonary medicine for reassessment of respiratory capacity. Portions of this documentation were copied and pasted from my previous office visit note dated 06/19/2024 in order to provide a cohesive continuity of the history. The note has been reviewed and edited and updated as necessary. Alf Castle DO documented in this encounter [facility] 07-11-2024 Note HNO ID: [id number] Author: KATELYN SANTANA, RN Service: ? Author Type: Registered Nurse Type: Progress Notes Filed: 07/11/2024 15:50 Note Text: Assessment unchanged from Carmella Esteban CNP office visit 07/10/24 [facility] 07-11-2024 History of Present illness Narrative Assessment unchanged from Carmella Esteban CNP office visit 07/10/24 documented in this encounter [facility] 07-10-2024 Note [facility] 07-10-2024 History of Present illness Narrative Chief Complaint Patient presents with: Established Patient HPI: Vickey Schwartz is a 64 year old female who presents here today for evaluation for treatment tomorrow. Per Dr. Castle's previous note: H/o former smoker of approximately 7-pack-year, quit in 2015. She is on Plaquenil for history of lupus. She has primary biliary cholangitis. She had a nodule discovered on lung cancer screening study for surveillance of her interstitial pulmonary fibrosis. A CT of the chest done in June 2023 demonstrated an interval new 13 x 19 mm right lower lobe subpleural nodule. PET scan done in July showed the nodule to measure 20.6 mm with an SUV of 14.0. Perihilar lymph nodes measuring up to 11 mm which were stable in size with an SUV of 10.7. She underwent a CT-guided biopsy of the right lower lobe nodule. Pathology demonstrated poorly differentiated non-small cell carcinoma favoring adenocarcinoma. She underwent bronchoscopy with EBUS. Samples from 11 RS demonstrated rare atypical epithelial cells and station 7 was negative for malignant cells. 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 CT has been stable and pulmonary function tests do not show restriction or low diffusing capacity. Patient prefers pulmonary follow-up closer to home. Patient is asymptomatic so antifibrotic therapy has been on hold. 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 She denies significant dyspnea except for with extreme activity. Chronic cough or sputum production. No wheezing. She used to smoke a pack a week but quit in 2015 when she had note of a small nodule on chest CT. Today she states that she continues to do well. Her Plaquenil controls her cutaneous symptoms. She has no arthralgias, erythema or joint effusions, no skin lesions, no edema. She does have photosensitivity and limits her sun exposure. She has excessive daytime sleepiness, known snoring and witnessed apneas. HSAT from 2020 showed possible mild obstructive sleep at but she never followed through with formal in lab sleep study. She states that she can fall asleep easily when sitting watching TV or working on her computer. She is a loud snorer, in fact her brother has been bothering her to be reevaluated for apnea. Per initial consultation: She is working on a daily basis. 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 Gets short of breath with trying to run or walking steeper slopes. Recent 6-minute walk test results were very good. Recently had testing for sleep apnea which suggested sleep apnea. It was a home sleep study test. Occasional dry cough but not frequent throughout the day. 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 Appetite has been normal. Repeat CT chest 10/23/2023: Soft tissue mass along the posterior superior segment of the right lower lobe is increased in size, currently measuring 26 x 21 x 28 mm in transverse, AP and craniocaudal dimensions respectively, while previously measuring 20 x 16 x 27 mm in these same orientations. Numerous additional small lung nodules are unchanged relative to previous studies including 12/05/2021 Pleural space: No pleural effusion. No pleural thickening. Lower neck, lymph nodes, and mediastinum: There is new right hilar lymphadenopathy, measuring up to 13 mm in short axis on image 121. Additional enlarged right hilar nodes are present. 8 mm right paratracheal node. No axillary lymphadenopathy. Bronchoscopy 11/22/2023: Pathology: A - Lymph Node, Transbronchial, Aspirate/Fine Needle Aspirate - 4R Negative for malignant cells. Benign lymphoid sample. B - Lymph Node, Transbronchial, Aspirate/Fine Needle Aspirate - 11RS Positive for malignant cells. Non-small cell carcinoma. C - Lymph Node, Transbronchial, Aspirate/Fine Needle Aspirate - 11RI Positive for malignant cells. Non-small cell carcinoma. Current therapy: 1) Neoadjuvant pemetrexed, cisplatin and pembrolizumab. Completed 4 cycles. Cisplatin omitted cycles 3 and 4 due to CRISTINO. Was admitted to [facility] 05/01/2024for daily IV methylprednisolone. Underwent renal biopsy. Was given a dose of Zometa for hypercalcemia. Discharged on prednisone 30 mg daily. 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 Underwent a robotic assisted right lower lobectomy and mediastinal and hilar lymph node dissection on 05/01/2024. Pathology: FINAL DIAGNOSIS A. Lymph node, level 7, excision: - One lymph node, negative for malignancy (0/1). B. Lymph node, level 8, excision: - One lymph node, negative for malignancy (0/1). C. Lymph node, level 10R, excision: - One lymph node, negative for malignancy (0/1). D. Lymph node, level 12R, excision: - One lymph node, negative for malignancy (0/1). E. Lymph node, level 11R, excision: - One lymph node, negative for malignancy (0/1). F. Lymph node, level 11 anterior, excision: - Metastatic carcinoma in two of two lymph nodes (2/2). G. Lymph node, level 12R, excision: - Metastatic carcinoma in one of one lymph node (1/1). H. Lymph node, level 12R, excision: - One lymph node, negative for malignancy (0/1). I. Lymph node, level 9, excision: - Fibroadipose tissue, no tumor or lymph node tissue seen. J. Lung, right lower lobe, lobectomy: - Residual adenocarcinoma, solid predominant (see comment and synoptic report). - Eight lymph nodes, negative for malignancy (0/8). at 2343 EDT Diagnosis Comment J. Immunohistochemical stains performed on block J4 show that the tumor cells are negative for TTF-1 and p40. Visceral pleural invasion is confirmed by Movat special stains performed on block J4 and J6 (stain was also performed on block J7). Block for additional Biomarkers/Molecular studies J5 Synoptic Report LUNG 8th Edition - Protocol posted: 10/26/2021LUNG: RESECTION - All Specimens SPECIMEN Procedure Lobectomy Specimen Laterality Right TUMOR Tumor Focality Single focus Tumor Site Lower lobe of lung Tumor Size Total Tumor Size (size of entire tumor) Greatest Dimension (Centimeters): 2.5 cm Histologic Type Invasive solid adenocarcinoma Histologic Patterns Present Acinar: 5% Solid: 95% Histologic Grade G3, poorly differentiated Spread Through Air Spaces (LEAH) Not identified Visceral Pleura Invasion Present Direct Invasion of Adjacent Structures Not applicable (no adjacent structures present) Treatment Effect Present Percentage of Residual Viable Tumor 75 % Percentage of Necrosis 10 % Percentage of Stroma (includes fibrosis and inflammation) 15 % Lymphovascular Invasion Present MARGINS Margin Status for Invasive Carcinoma All margins negative for invasive carcinoma Closest Margin(s) to Invasive Carcinoma Bronchial Vascular Parenchymal Distance from Invasive Carcinoma to Closest Margin 3.3 cm Margin Status for Non-Invasive Tumor Not applicable REGIONAL LYMPH NODES Lymph Node(s) from Prior Procedures Not included Regional Lymph Node Status Tumor present in regional lymph node(s) Number of Lymph Nodes with Tumor 3 Shanice Site(s) with Tumor 11R: Interlobar 12R: Lobar Number of Lymph Nodes Examined 17 Shanice Site(s) Examined 8R: Para-esophageal (below flex) 9R: Pulmonary ligament 10R: Hilar 11R: Interlobar 12R: Lobar 7: Subcarinal PATHOLOGIC STAGE CLASSIFICATION (pTNM, AJCC 8th Edition) Reporting of pT, pN, and (when applicable) pM categories is based on information available to the pathologist at the time the report is issued. As per the AJCC (Chapter 1, 8th Ed.) it is the managing physician s responsibility to establish the final pathologic stage based upon all pertinent information, including but potentially not limited to this pathology report. TNM Descriptors y (post-treatment) pT Category pT2a pN Category pN1 No new concerns today. Appetite:Not bad. Wt. down 4# over past month. Energy level:Eh. Fair. Denies fevers. Mouth:denies sores Resp:denies cough or sob, occ. sethi Cardiac:denies chest pain/palpitations GI:denies abd pain, n/v, moving bowels regularly :denies dysuria/hematuria Extrem:denies new pain Neuro:denies symptoms of neuropathy Skin:denies rashes Heme:denies bleeding The ROS is otherwise negative. Past medical history, appointments, medications, allergies reviewed. No changes. EXAM: BP 107/76 Pulse 73 Temp 36.8 C (98.2 F) (Temporal) Wt 80.9 kg (178 lb 5.6 oz) SpO2 97% BMI 30.61 kg/m APPEARANCE Well appearing, alert, in no acute distress, well-hydrated, well nourished. HEART RRR with normal S1 and S2, no murmurs LUNG clear to auscultation LYMPH NODES No cervical lymphadenopathy, No supraclavicular lymphadenopathy, and No axillary lymphadenopathy. ABDOMEN bowel sounds normoactive, soft, non-tender EXTREMITIES No edema NEURO Awake, alert and oriented x 3, Normal gait, and No involuntary motions. SKIN Skin color, texture, turgor normal, no suspicious rashes or lesions LABS: Latest Ref Rng 05/30/2024 06/19/2024 07/10/2024 WBC 3.70 - 11.00 k/uL 10.62 8.03 6.66 RBC 3.90 - 5.20 m/uL 2.91 (L) 3.07 (L) 3.20 (L) Hemoglobin 11.5 - 15.5 g/dL 9.9 (L) 10.2 (L) 10.2 (L) Hematocrit 36.0 - 46.0 % 29.0 (L) 29.6 (L) 30.1 (L) MCV 80.0 - 100.0 fL 99.7 96.4 94.1 MCH 26.0 - 34.0 pg 34.0 33.2 31.9 MCHC 30.5 - 36.0 g/dL 34.1 34.5 33.9 RDW-CV 11.5 - 15.0 % 12.4 12.1 12.3 Platelet Count 150 - 400 k/uL 209 231 235 MPV 9.0 - 12.7 fL 9.4 9.1 8.8 (L) Neut% % 75.8 73.9 69.6 Abs Neut (ANC) 1.45 - 7.50 k/uL 8.06 (H) 5.93 4.64 Lymph% % 11.9 13.6 14.0 Abs Lymph 1.00 - 4.00 k/uL 1.26 1.09 0.93 (L) [place]% % 8.7 8.8 12.2 Abs [place] <0.87 k/uL 0.92 (H) 0.71 0.81 Eosin% % 1.5 2.1 3.3 Abs Eosin <0.46 k/uL 0.16 0.17 0.22 Baso% % 0.6 0.7 0.6 Abs Baso <0.11 k/uL 0.06 0.06 0.04 Immature Gran % % 1.5 0.9 0.3 IMMATURE GRANS (ABS) <0.10 k/uL 0.16 (H) 0.07 <0.03 NRBC /100 WBC 0.0 0.0 0.0 Absolute nRBC <0.01 k/uL <0.01 <0.01 <0.01 DTYPE Auto Auto Auto CMP/Mag/TSH/T4/Cortisol: Pending ASSESSMENT/PLAN: 1. Non-small cell cancer of right lung (HCC) - ICD9: 162.9, ICD10: C34.[address] Castle's previous note: Assessment: -cT1c N1 (lymph node station 11 RS and 11 RI) M0 stage IIB NSCLC, adenocarcinoma of the RLL. 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 -History of PBC with evolving cirrhosis. -ypT2a pN1 M0 G3 with visceral pleural involvement. -Developed hypothyroidism. Currently titrating levothyroxine. Reviewed labs and explained anemia since macrocytic likely from hypothyroidism. Should correct with treatment of hypothyroidism. Reviewed chemistry panel. Alkaline phosphatase stable. No hyperbilirubinemia. Normal hepatocellular enzymes. Plan: - Okay for immunotherapy tomorrow. Today we talked about adding 3 further doses of Keytruda to make up for the doses not received in the neoadjuvant setting - Monitor hepatocellular enzymes along with alkaline phosphatase and bilirubin every cycle. - Monitor serum creatinine and BUN every cycle. - Plan CTs about 3 months from start of adjuvant therapy. - Overall tolerating keytruda well. - Reviewed CBC with pt. - CMP/Mag/TSH/T4/Cortisol pending. - Continue current medications. - CT's end of August. - Proceed as scheduled tomorrow for keytruda pending labs. - Follow up as scheduled. - Pt. aware to call office with any questions/concerns. The patient indicates understanding of these issues and agrees with the plan. All documentation from previous visit of 06/19/24-Dr. Castle was copied and pasted, documentation has been reviewed and edited as necessary for today's visit. Kris Esteban APRN.GALILEA documented in this encounter [facility] 07-09-2024 Telephone encounter Note Patient contacted to informed of follow up appt on August 05 at 1130 no answer left message with call back phone number Huma Hylton LPN July 09, 2024 [id number] [facility] 07-09-2024 Miscellaneous Notes Patient contacted to informed of follow up appt on August 05 at 1130 no answer left message with call back phone number Huma Hylton LPN July 09, 2024 [id number] [place] Please schedule VV for follow up fiber scan August 05 at 1130 I will call pt Huma Hylton LPN July 07, 2024 [id number] Please schedule a virtual visit with me in the next month to discuss the liver FibroScan. documented in this encounter [facility] 07-09-2024 Telephone encounter Note SOCIAL WORK FOLLOW UP NOTE: [facility] Date of service: July 08, 2024 Vickey Schwartz is being seen for a follow up social work visit. Today's visit includes: patient TOPICS ADDRESSED: SW spoke with pt this date via phone. Pt confirming SW had received paperwork for continuation of pt's disability. Confirmed they were received. Pt discussed with SW that she does not plan to return to work. SW completed forms and will review with physician and fax this date. No other needs identified this date. PLAN: Continue follow up as needed F/U APPOINTMENT: PRN Assigned SW listed in Care Team tab: Yes JESSICA Martinez [facility] 07-09-2024 Miscellaneous Notes SOCIAL WORK FOLLOW UP NOTE: [facility] Date of service: July 08, 2024 Vickey Schwartz is being seen for a follow up social work visit. Today's visit includes: patient TOPICS ADDRESSED: SW spoke with pt this date via phone. Pt confirming SW had received paperwork for continuation of pt's disability. Confirmed they were received. Pt discussed with SW that she does not plan to return to work. SW completed forms and will review with physician and fax this date. No other needs identified this date. PLAN: Continue follow up as needed F/U APPOINTMENT: PRN Assigned SW listed in Care Team tab: Yes LALO [place] documented in this encounter [facility] 07-07-2024 Telephone encounter Note Jerry Mallory Please schedule VV for follow up fiber scan August 05 at 1130 I will call pt Huma Hylton LPN July 07, 2024 [id number] [facility] 07-06-2024 Telephone encounter Note Please schedule a virtual visit with me in the next month to discuss the liver FibroScan. [facility] 07-04-2024 Note [facility] 07-04-2024 History of Present illness Narrative [facility] [place] Department of Thoracic Surgery VIRTUAL VISIT PROGRESS NOTE This is a virtual encounter initiated for an established patient. The patient, parent or guardian is not originating from a related Evaluation & Management service provided within the previous 7 days nor leading to an Evaluation & Management service or procedure within the next 24 hours or soonest available appointment. I have communicated my name and active licensure. The patient's identity and physical location were verified at the time of this visit. Either the patient or their legal welding equipment sales representative has been informed of the risks and benefits of -- and alternatives to -- treatment through a remote evaluation and consents to proceed with the evaluation remotely. Vickey Schwartz has consented to this virtual encounter. Persons Present: Patient Total Time Spent: 21-30 minutes Suzanne Nolasco APRN.DIRECTOR OF PURCHASING [facility] - OUTPATIENT THORACIC SURGERY CLINIC NOTE PT NAME: Vickey [facility] NO: [id number] THORACIC SURGEON: Janett Feliciano M.D. DATE OF SERVICE: 07/04/2024 PRINCIPAL DX: [id number]/stage IIB adenocarcinoma of the right lower lobe of lung SURGICAL HX: 05/01/2024: Robotic Right Lower Lobectomy, Lymph node harvest as follows, Intercostal nerve blocks Surgical Pathology: FINAL DIAGNOSIS A. Lymph node, level 7, excision: - One lymph node, negative for malignancy (0/1). B. Lymph node, level 8, excision: - One lymph node, negative for malignancy (0/1). C. Lymph node, level 10R, excision: - One lymph node, negative for malignancy (0/1). D. Lymph node, level 12R, excision: - One lymph node, negative for malignancy (0/1). E. Lymph node, level 11R, excision: - One lymph node, negative for malignancy (0/1). F. Lymph node, level 11 anterior, excision: - Metastatic carcinoma in two of two lymph nodes (2/2). G. Lymph node, level 12R, excision: - Metastatic carcinoma in one of one lymph node (1/1). H. Lymph node, level 12R, excision: - One lymph node, negative for malignancy (0/1). I. Lymph node, level 9, excision: - Fibroadipose tissue, no tumor or lymph node tissue seen. J. Lung, right lower lobe, lobectomy: - Residual adenocarcinoma, solid predominant (see comment and synoptic report). - Eight lymph nodes, negative for malignancy (0/8). at 2343 EDT Diagnosis Comment J. Immunohistochemical stains performed on block J4 show that the tumor cells are negative for TTF-1 and p40. Visceral pleural invasion is confirmed by Movat special stains performed on block J4 and J6 (stain was also performed on block J7). Block for additional Biomarkers/Molecular studies J5 Synoptic Report LUNG 8th Edition - Protocol posted: 10/26/2021LUNG: RESECTION - All Specimens SPECIMEN Procedure Lobectomy Specimen Laterality Right TUMOR Tumor Focality Single focus Tumor Site Lower lobe of lung Tumor Size Total Tumor Size (size of entire tumor) Greatest Dimension (Centimeters): 2.5 cm Histologic Type Invasive solid adenocarcinoma Histologic Patterns Present Acinar: 5% Solid: 95% Histologic Grade G3, poorly differentiated Spread Through Air Spaces (LEAH) Not identified Visceral Pleura Invasion Present Direct Invasion of Adjacent Structures Not applicable (no adjacent structures present) Treatment Effect Present Percentage of Residual Viable Tumor 75 % Percentage of Necrosis 10 % Percentage of Stroma (includes fibrosis and inflammation) 15 % Lymphovascular Invasion Present MARGINS Margin Status for Invasive Carcinoma All margins negative for invasive carcinoma Closest Margin(s) to Invasive Carcinoma Bronchial Vascular Parenchymal Distance from Invasive Carcinoma to Closest Margin 3.3 cm Margin Status for Non-Invasive Tumor Not applicable REGIONAL LYMPH NODES Lymph Node(s) from Prior Procedures Not included Regional Lymph Node Status Tumor present in regional lymph node(s) Number of Lymph Nodes with Tumor 3 Shanice Site(s) with Tumor 11R: Interlobar 12R: Lobar Number of Lymph Nodes Examined 17 Shanice Site(s) Examined 8R: Para-esophageal (below flex) 9R: Pulmonary ligament 10R: Hilar 11R: Interlobar 12R: Lobar 7: Subcarinal PATHOLOGIC STAGE CLASSIFICATION (pTNM, AJCC 8th Edition) Reporting of pT, pN, and (when applicable) pM categories is based on information available to the pathologist at the time the report is issued. As per the AJCC (Chapter 1, 8th Ed.) it is the managing physician s responsibility to establish the final pathologic stage based upon all pertinent information, including but potentially not limited to this pathology report. TNM Descriptors y (post-treatment) pT Category pT2a pN Category pN1 ADDITIONAL FINDINGS Additional Findings None identified . REASON FOR VISIT: Post-operative visit, follow up after CXR locally HPI: Vickey Schwartz is a 64 year old female with lung nodule discovered on lung cancer screening study for surveillance of her interstitial pulmonary fibrosis.CT of the chest done in June 2023 demonstrated an interval new 13 x 19 mm right lower lobe subpleural nodule. PET scan done in July 2023 demonstrated the rght lung nodule measuring 20.6 mm with an SUV of 14.0. Perihilar lymph nodes measuring up to 11 mm which were stable in size with an SUV of 10.7. CT guided biopsy performed with pathology showing poorly differentiated non-small cell carcinoma favoring adenocarcinoma. She underwent bronchoscopy with EBUS. Samples from 11 RS demonstrated rare atypical epithelial cells and station 7 was negative for malignant cells. 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 Underwent induction of chemo immunotherapy and developed what was thought to be an inflammatory process in her kidneys resulting in renal insufficiency. On 05/01/24 she underwent Robotic Right Lower Lobectomy, Lymph node harvest as follows, Intercostal nerve blocks by Dr Feliciano. Discharged 05/03/24. REVIEW OF SYSTEMS PAIN ASSESSMENT: Denies any pain, some incisional numbness GENERAL: No weight loss, malaise or fevers RESPIRATORY: Some dyspnea with exertion, resolves with rest. Denies cough, wheezing for hemoptysis CARDIOVASCULAR: Denies chest pain or palpitations GI: No nausea, vomiting, or diarrhea IMAGING/TESTS: CXR 07/03/2024: IMPRESSION: Stable chest. Small bilateral pleural fluid collections INTERVAL HISTORY: Vickey Schwartz has a virtual visit today for a visit following CXR completed locally. She has been doing better and started to use her bike at home. Reports some dyspnea with exertion, resolves with rest. She has begun immunotherapy and is tolerating it well. Reports some incisional numbness still, improving. CXR shows improved right lung expansion. Repeat CXR in 6 weeks at [facility] and telephone visit to follow. Patients states understanding and all questions were answered to satisfaction; will call if new or worsening symptoms occur or if any additional questions arise IMPRESSION: 64 year old female s/p Robotic Right Lower Lobectomy, Lymph node harvest as follows, Intercostal nerve blocks on 05/01/[address] Feliciano for upI4aE3/stage IIB adenocarcinoma of the right lower lobe of lung. PLAN: - Increase aerobic activity as tolerated - CXR in 6 weeks at [facility] and telephone visit the next day - Oncology, Dr Vandana Nolasco APRN.DIRECTOR OF PURCHASING documented in this encounter [facility] 07-03-2024 History of Present illness Narrative Radiology Service Progress Note PATIENT NAME: Vickey Schwartz DATE OF SERVICE: July 03, 2024 TIME: 9:55 AM PATIENT IDENTITY VERIFICATION COMPLETED USING TWO (2) IDENTIFIERS: Name and Date of confirmed by patient verbally. FALL SCREENING: Has the patient had 2 falls in the last year or 1 fall with injury or currently using an Ambulatory Assistive Device (Walker, Cane, Wheelchair, Crutches, etc.)? No PATIENT GENDER DATA: Assigned female at . status: : No status: NO. PATIENT RELEVANT IMPLANT DATA REVIEWED: Not Applicable PATIENT PRESENTS WITH AN IMPLANTABLE OR ATTACHED PREPRESS SPECIALIST: No RADIOLOGY DEPARTMENT: General X-ray: Exam(s) Completed: Chest X-Ray PERIPHERAL IV DATA: Not applicable SIGNED BY: RT Zonia(R) July 03, 2024 9:55 AM documented in this encounter [facility] 07-03-2024 Note [facility] 07-02-2024 Note [facility] 07-02-2024 History of Present illness Narrative Fibroscan Report Date performed: July 02, 2024 Indication : MASLD Patient fasted 3 hours:Yes Performed by Moni Clark LPN Impression The liver stiffness is 12.5 kPa which corresponds to 56% chance of stage F0-F2 fibrosis. The CAP analysis showed grade S2 of liver steatosis. Stage of liver fibrosis based on above kPa: A 56% chance of stage 0-2 fibrosis A 43% chance of stage 3-4 fibrosis (advanced fibrosis) A 14% chance of stage 4 fibrosis (cirrhosis). A kPa >20 indicates a high likelihood of stage 4 fibrosis/cirrhosis, consider further testing to confirm and refer to hepatology. Recommendations If kPa <8.0, reassess periodically Fib-4 score every 1-2 years if T2DM/Pre-T2DM OR with 2 or more metabolic risk factors Fib-4 score 2-3 years if no T2DM and <2 metabolic risk factors If kPa >8.0, refer to hepatology for further evaluation Result-Findings Technical difficulties: None. Result: The reading was adequate. Please refer to get images report for individual readings Number of readings: 10 IQR %: 8 E (kpa): 12.5 CAP: 267 Interpreted by: Jayshree Lisa APRN, GALILEA MASALIZA Fibroscan Fibrosis Risk <7 kPA = F0-F2 97%, F3+F4 3%, F4 <1% <10 kPA = F0-F2 91%, F3+F4 9%, F4 1.3% 10-15 kPA = F0-F2 56%, F3+F4 43%, F4 14% >15 kPA = F0-F2 26%, F3+F4 74%, F4 46% Grade CAP value up to 237 dB/M corresponds to S0 (< 10 % Fat) CAP value between (238 - 258 dB/M) corresponds to S1 (>/= 11 % Fat) CAP value between (259 - 289 dB/M) corresponds to S2 (>/= 33 % Fat) CAP value > 290dB/M corresponds to S3 (>/= 67 % Fat) stage 0 ( S0:< 10 % steatosis) stage 1 (>/= S1: 11%-33% steatosis) stage 2 (>/= S2: 34%-66% steatosis) stage 3 (>/= S3: > 66% steatosis) References Aidan Y, Mandeep Q, Aidan T, Shagufta J, Aidan H, Ghanshyam T. Controlled attenuation parameter for assessment of hepatic steatosis grades: a diagnostic meta-analysis. Int J Clin Exp Med. 2015 Nov 15;8(10):23153-92. PMID: 12176722; PMCID: [id number]. Tonya M, Pierre CHARU, Partha M, Jarrett F, Royce J, Monica O, Randi F, Aryan M, Amy G, Dyan A, Rik E, Ronald L, Jovani G, Sowmya A, Aida U, Calle S, Lynsey P, Pauo V, de Severinohen V, Pinroby M, Ollie ROCHA. Refining the Baveno elastography criteria for the definition of compensated advanced chronic liver disease. J Hepatol. 2020;74(5):8071-1645. doi: 10.1016/j.jhep.2020.11.050. Epub 2019Jan 13. PMID: 68779838. Jordon Langston, Vera Singletary, Kitty Langston, Almita Langston, Lia S, Wendy Marsh, Betsey Marsh, Shorty Pierre. AASLD practice guidance on the clinical assessment and management of nonalcoholic fatty liver disease. Hepatology. 2022;77(5):9127-6650. doi:10.1097/[id number] documented in this encounter [facility] 06-20-2024 Telephone encounter Note Eye exam completed 06/20/2024. No evidence HCQ toxicity. Scan on 06/20/2024 10:54 AM by Provider, ExternalHALI: Exam Finding of 06/20/2024 from [facility]. [facility] 06-20-2024 Miscellaneous Notes Eye exam completed 06/20/2024. No evidence HCQ toxicity. Scan on 06/20/2024 10:54 AM by Provider, HALI Davenport: Exam Finding of 06/20/2024 from [facility]. Received Exam Finding of 06/20/2024 from [facility]. Scanned into chart for review. documented in this encounter [facility] 06-20-2024 Telephone encounter Note Received Exam Finding of 06/20/2024 from [facility]. Scanned into chart for review. [facility] 06-20-2024 Miscellaneous Notes RN will address at treatment today. Liset Acevedo LPN Advise Slow-Mag 1 tablet twice daily. Alf Castle DO documented in this encounter [facility] 06-20-2024 Telephone encounter Note RN will address at treatment today. Liset Acevedo LPN [facility] 06-19-2024 Telephone encounter Note Advise Slow-Mag 1 tablet twice daily. Alf Castle DO [facility] 06-19-2024 Note [facility] 06-19-2024 History of Present illness Narrative Oncologic problem(s): 1) Stage II NSCLC, adenocarcinoma. HPI: The patient is a 64-year-old female with a past medical history as outlined below. The patient is a former smoker of approximately 7-pack-year, quit in 2015. She is on Plaquenil for history of lupus. She has primary biliary cholangitis. She had a nodule discovered on lung cancer screening study for surveillance of her interstitial pulmonary fibrosis. A CT of the chest done in June 2023 demonstrated an interval new 13 x 19 mm right lower lobe subpleural nodule. PET scan done in July showed the nodule to measure 20.6 mm with an SUV of 14.0. Perihilar lymph nodes measuring up to 11 mm which were stable in size with an SUV of 10.7. She underwent a CT-guided biopsy of the right lower lobe nodule. Pathology demonstrated poorly differentiated non-small cell carcinoma favoring adenocarcinoma. She underwent bronchoscopy with EBUS. Samples from 11 RS demonstrated rare atypical epithelial cells and station 7 was negative for malignant cells. 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 CT has been stable and pulmonary function tests do not show restriction or low diffusing capacity. Patient prefers pulmonary follow-up closer to home. Patient is asymptomatic so antifibrotic therapy has been on hold. 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 She denies significant dyspnea except for with extreme activity. Chronic cough or sputum production. No wheezing. She used to smoke a pack a week but quit in 2015 when she had note of a small nodule on chest CT. Today she states that she continues to do well. Her Plaquenil controls her cutaneous symptoms. She has no arthralgias, erythema or joint effusions, no skin lesions, no edema. She does have photosensitivity and limits her sun exposure. She has excessive daytime sleepiness, known snoring and witnessed apneas. HSAT from 2020 showed possible mild obstructive sleep at but she never followed through with formal in lab sleep study. She states that she can fall asleep easily when sitting watching TV or working on her computer. She is a loud snorer, in fact her brother has been bothering her to be reevaluated for apnea. Per initial consultation: She is working on a daily basis. 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 Gets short of breath with trying to run or walking steeper slopes. Recent 6-minute walk test results were very good. Recently had testing for sleep apnea which suggested sleep apnea. It was a home sleep study test. Occasional dry cough but not frequent throughout the day. 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 Appetite has been normal. Presents for ongoing oncologic management. Interim history: Repeat CT chest 10/23/2023: Soft tissue mass along the posterior superior segment of the right lower lobe is increased in size, currently measuring 26 x 21 x 28 mm in transverse, AP and craniocaudal dimensions respectively, while previously measuring 20 x 16 x 27 mm in these same orientations. Numerous additional small lung nodules are unchanged relative to previous studies including 12/05/2021 Pleural space: No pleural effusion. No pleural thickening. Lower neck, lymph nodes, and mediastinum: There is new right hilar lymphadenopathy, measuring up to 13 mm in short axis on image 121. Additional enlarged right hilar nodes are present. 8 mm right paratracheal node. No axillary lymphadenopathy. Bronchoscopy 11/22/2023: Pathology: A - Lymph Node, Transbronchial, Aspirate/Fine Needle Aspirate - 4R Negative for malignant cells. Benign lymphoid sample. B - Lymph Node, Transbronchial, Aspirate/Fine Needle Aspirate - 11RS Positive for malignant cells. Non-small cell carcinoma. C - Lymph Node, Transbronchial, Aspirate/Fine Needle Aspirate - 11RI Positive for malignant cells. Non-small cell carcinoma. Current therapy: 1) Neoadjuvant pemetrexed, cisplatin and pembrolizumab. Completed 4 cycles. Cisplatin omitted cycles 3 and 4 due to CRISTINO. Was admitted to [facility] 05/01/2024for daily IV methylprednisolone. Underwent renal biopsy. Was given a dose of Zometa for hypercalcemia. Discharged on prednisone 30 mg daily. 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 Underwent a robotic assisted right lower lobectomy and mediastinal and hilar lymph node dissection on 05/01/2024. Pathology: FINAL DIAGNOSIS A. Lymph node, level 7, excision: - One lymph node, negative for malignancy (0/1). B. Lymph node, level 8, excision: - One lymph node, negative for malignancy (0/1). C. Lymph node, level 10R, excision: - One lymph node, negative for malignancy (0/1). D. Lymph node, level 12R, excision: - One lymph node, negative for malignancy (0/1). E. Lymph node, level 11R, excision: - One lymph node, negative for malignancy (0/1). F. Lymph node, level 11 anterior, excision: - Metastatic carcinoma in two of two lymph nodes (2/2). G. Lymph node, level 12R, excision: - Metastatic carcinoma in one of one lymph node (1/1). H. Lymph node, level 12R, excision: - One lymph node, negative for malignancy (0/1). I. Lymph node, level 9, excision: - Fibroadipose tissue, no tumor or lymph node tissue seen. J. Lung, right lower lobe, lobectomy: - Residual adenocarcinoma, solid predominant (see comment and synoptic report). - Eight lymph nodes, negative for malignancy (0/8). at 2343 EDT Diagnosis Comment J. Immunohistochemical stains performed on block J4 show that the tumor cells are negative for TTF-1 and p40. Visceral pleural invasion is confirmed by Movat special stains performed on block J4 and J6 (stain was also performed on block J7). Block for additional Biomarkers/Molecular studies J5 Synoptic Report LUNG 8th Edition - Protocol posted: 10/26/2021LUNG: RESECTION - All Specimens SPECIMEN Procedure Lobectomy Specimen Laterality Right TUMOR Tumor Focality Single focus Tumor Site Lower lobe of lung Tumor Size Total Tumor Size (size of entire tumor) Greatest Dimension (Centimeters): 2.5 cm Histologic Type Invasive solid adenocarcinoma Histologic Patterns Present Acinar: 5% Solid: 95% Histologic Grade G3, poorly differentiated Spread Through Air Spaces (LEAH) Not identified Visceral Pleura Invasion Present Direct Invasion of Adjacent Structures Not applicable (no adjacent structures present) Treatment Effect Present Percentage of Residual Viable Tumor 75 % Percentage of Necrosis 10 % Percentage of Stroma (includes fibrosis and inflammation) 15 % Lymphovascular Invasion Present MARGINS Margin Status for Invasive Carcinoma All margins negative for invasive carcinoma Closest Margin(s) to Invasive Carcinoma Bronchial Vascular Parenchymal Distance from Invasive Carcinoma to Closest Margin 3.3 cm Margin Status for Non-Invasive Tumor Not applicable REGIONAL LYMPH NODES Lymph Node(s) from Prior Procedures Not included Regional Lymph Node Status Tumor present in regional lymph node(s) Number of Lymph Nodes with Tumor 3 Shanice Site(s) with Tumor 11R: Interlobar 12R: Lobar Number of Lymph Nodes Examined 17 Shanice Site(s) Examined 8R: Para-esophageal (below flex) 9R: Pulmonary ligament 10R: Hilar 11R: Interlobar 12R: Lobar 7: Subcarinal PATHOLOGIC STAGE CLASSIFICATION (pTNM, AJCC 8th Edition) Reporting of pT, pN, and (when applicable) pM categories is based on information available to the pathologist at the time the report is issued. As per the AJCC (Chapter 1, 8th Ed.) it is the managing physician s responsibility to establish the final pathologic stage based upon all pertinent information, including but potentially not limited to this pathology report. TNM Descriptors y (post-treatment) pT Category pT2a pN Category pN1 Presents for ongoing oncologic management. Interim history: Still having some numbness and tingling right lower anterior lateral chest wall. Symptoms flare if she has been sitting alone. No other respiratory symptoms. PAST MEDICAL HISTORY Diagnosis Date Hemorrhage of rectum and anus HYPERLIPIDEMIA MIXED 07/10/2005 Lung nodule 06/13/2016 June 25, 2017 subcentimeter lung nodules and interstitial lung disease also stable from 2017: check CT in 1 year. Primary biliary cholangitis (HCC) Snoring Systemic lupus erythematosus (HCC) PAST SURGICAL HISTORY Procedure Laterality Date BRONCHOSCOPY 07/31/2023 COLONOSCOPY FLX DX W/COLLJ SPEC WHEN PFRMD 06/29/2016 HAD VASOVAGAL RESPONSE DURING PROCEDURE SYST BP 60'S HR 40'S-GIVEN ATROPINE CORRJ HLX VLGS BNCTY SESMDC DSTL METAR OSTEOT 1985 DIAGNOSTIC ARTHROSCOPY SHOULDER +- SYNOVIAL BX Left 04/03/2018 Left shoulder arthroscopic subacromial decompression, rotator cuff repair, and biceps tenotomy EGD 12/25/2022 repeat 2 years ESOPHAGOGASTRODUODENOSCOPY TRANSORAL DIAGNOSTIC 11/11/2018 EGD ESOPHAGOGASTRODUODENOSCOPY TRANSORAL DIAGNOSTIC 11/22/2020 repeat in 2 years FOOT SURGERY HX 1986 HYSTEROSCOPY 06/21/2017 D&C LUNG BIOPSY HX 08/24/2023 SIGMOIDOSCOPY ?1999 SKIN BIOPSY HX TONSILLECTOMY HX levothyroxine (SYNTHROID) 50 mcg tablet Take 2 tablets by mouth daily at 6 am. hydrOXYchloroQUINE (PLAQUENIL) 200 mg tablet Take 200 mg by mouth two times a day. PER DR. PINEDA (RHEUM) cinacalcet (SENSIPAR) 30 mg tablet Take 30 mg by mouth once daily. BIOTIN ORAL Take 1 tablet by mouth once daily. cholecalciferol, vitamin D3, (VITAMIN D3 ORAL) Take 1 tablet by mouth once daily. pantoprazole DR (PROTONIX) 40 mg tablet Take 40 mg by mouth once daily. Syringe with Needle, Disp, (BD TUBERCULIN SYRINGE) 1 mL 25 gauge x 5/8 Use to inject heparin subcutaneously two times a day. (Patient not taking: Reported on 06/18/2024) acetaminophen (TYLENOL) 500 mg tablet Take 2 tablets by mouth every 6 hours as needed for pain. metoprolol tartrate, short acting, (LOPRESSOR) 25 mg tablet Take one half of a tablet by mouth every 12 hours. polyethylene glycol 3350 17 gram packet Take 1 Packet by mouth once daily as needed for constipation. Dissolve dose in 4 - 8 ounces of liquid and take as directed. (Patient not taking: Reported on 06/18/2024) [id number] (BMX 1:1:1) 1:1:1 liqd Take 5 mL by mouth every 4 hours as needed. ursodiol (ACTIGALL) 300 mg capsule Take 1 capsule by mouth three times a day. prochlorperazine (COMPAZINE) 10 mg tablet Take 1 tablet by mouth every 6 hours as needed. For chemotherapy induced nausea and vomiting. folic acid 1 mg tablet Take 1 tablet by mouth once daily. clotrimazole-betamethasone (LOTRISONE) lotion Betamethasone / Clotrimazole Clotrimazole/Betamethasone Dip [Clotrimazole-Betamethasone Lot] 30 ML TP NEEDED PRN For SKIN June 14, 2017 Active 06-14-2017 [facility] ([id number]) tacrolimus (PROTOPIC) 0.1 % ointment Apply twice daily to affected areas on face Clobetasol Propionate (TEMOVATE) 0.05 % external solution Apply to affected areas on the scalp twice a day. Dispense 100ml as 30 day supply. ALLERGIES Allergen Reactions Albuterol Other: See Comments kyra Morrison Adhesive Tape (Sammi* Itching Itching and redness FAMILY HISTORY Problem Relation Age of Onset Diabetes Mother Hypertension Mother Stroke Mother other (? SFTP) Mother Heart Father age 60's other (PBC) Father None Brother Obstructive Sleep Apnea Brother Colon Cancer Paternal Grandmother Colon Cancer Paternal Grandfather Social History Tobacco Use Smoking status: Former Current packs/day: 0.00 Average packs/day: 0.2 packs/day for 30.0 years (4.5 ttl pk-yrs) Types: Cigarettes Start date: 1985 Quit date: 2016 Years since quittin.3 Smokeless tobacco: Never Tobacco comments: Pt smoked one pack a week x 30 years, quit 2016 Vaping Use Vaping status: Never Used Substance Use Topics Alcohol use: No Drug use: No REVIEW OF SYSTEMS: Constitutional: No episodes of fever and night sweats. Not significantly fatigued. Neuro: No GUTIERREZ, vertigo, dizziness and imbalance. No symptoms of neuropathy. HEENT: No recent change in voice, vision or hearing. Resp: See above. CVS: Denies exertional chest pain, PND, orthopnea and LE edema. GI: Denies dysphagia and odynophagia. Denies reflux, n/v, change in bowel habits and abdominal pain. : Denies dysuria or gross hematuria. No symptoms of bladder outlet obstruction. Endo: Denies hot flashes. Denies polyuria and polydipsia. Denies heat and cold intolerance. Musculoskeletal: Denies bone, back, joint and muscular pain. Derm: See above. Heme: Denies unusual bleeding and unexplained bruising. Psych: Normal mood. PHYSICAL EXAM: Vitals: Blood pressure 95/67, pulse 79, temperature 37.2 C (99 F), resp. rate 12, weight 82.6 kg (182 lb), SpO2 97%. Well-appearing and in no acute distress. EYES: Sclerae are anicteric bilaterally. No palpable cervical or supraclavicular adenopathy. Surgical sites well-healed. No hyperesthesia of the skin. Respiratory breath sounds are uniformly mildly diminished throughout. IMAGING: PET [facility] 07/17/2023: 20.6 mm hypermetabolic nodule right mid posterior, right lower lobe with SUV 14.0. There was also FDG G uptake noted in the right thoracic perihilar and generating an SUV of 10.3. The maximal axial diameter the metabolic, morphologic abnormality is 10.7 mm. Genetic testing: NGS/biomarkers/flatbed truck driver mutation analyses: [employer] 10/30/2023: -No flatbed truck driver mutations. -BRAF p([id number]) variant of potential clinical significance. Tier II. ASSESSMENT/PLAN: (C34.91) Non-small cell cancer of right lung (HCC) (primary encounter diagnosis) Assessment: -cT1c N1 (lymph node station 11 RS and 11 RI) M0 stage IIB NSCLC, adenocarcinoma of the RLL. 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 -History of PBC with evolving cirrhosis. -ypT2a pN1 M0 G3 with visceral pleural involvement. -Developed hypothyroidism. Currently titrating levothyroxine. Reviewed labs and explained anemia since macrocytic likely from hypothyroidism. Should correct with treatment of hypothyroidism. Reviewed chemistry panel. Alkaline phosphatase stable. No hyperbilirubinemia. Normal hepatocellular enzymes. Plan: - Okay for immunotherapy tomorrow. Today we talked about adding 3 further doses of Keytruda to make up for the doses not received in the neoadjuvant setting - Monitor hepatocellular enzymes along with alkaline phosphatase and bilirubin every cycle. - Monitor serum creatinine and BUN every cycle. - Plan CTs about 3 months from start of adjuvant therapy. Portions of this documentation were copied and pasted from my previous office visit note dated 05/21/2024 in order to provide a cohesive continuity of the history. The note has been reviewed and edited and updated as necessary. Alf Castle DO documented in this encounter [facility] 06-18-2024 Instructions Allen Valdes MD - 06/18/2024 10:59 AM EDT Please order a fibroscan at location closest to her house. Office will call with results. documented in this encounter [facility] 06-18-2024 History of Present illness Narrative DEPARTMENT OF GASTROENTEROLOGY - FOLLOW UP VISIT HISTORY OF PRESENT ILLNESS Vickey Schwartz is a 64 year old female who presents today for follow up of PBC. Last office visit 10/17/[address] Valdes. Patient is a 64-year-old female with a history of primary biliary cirrhosis and non-small cell lung cancer, presenting for follow-up. Patient was last seen on 10/17/2023, at which time she was diagnosed with a pulmonary malignancy. She is currently under the care of Dr. Castle in [place] for her lung cancer, which is classified as CT1CN1 non-small cell cancer of the right lung. She has completed chemotherapy with Alimta and cisplatin and is currently receiving Keytruda. She reports no issues with Keytruda and believes her kidney function is being monitored. She mentions that Dr. Castle suspects cisplatin may have caused previous kidney issues. Patient underwent surgery on 05/01/2024, during which 40% of her lower right lung lobe was removed. She reports residual numbness from the surgery and is currently on short-term disability until 07/05/2024. 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 She expresses concerns about returning to such an environment given her lung condition and is also considering her health insurance options, noting that she is two years away from qualifying for Medicare. From a gastrointestinal perspective, patient reports doing well. She is currently taking Plaquenil and Protonix and mentions that she may need a refill for Protonix. Past Diagnostic Results: - MRCP (prior to 10/17/2023): Showed adenomyomatosis of the gallbladder. - LFTs (prior to 10/17/2023): Completely normal. - CT of the abdomen (04/01/2024): Showed no hydronephrosis or hydroureter, with suspicion of cirrhosis. - CMP (05/30/2024): Showed an alkaline phosphatase of 277, normal transaminases, and normal bilirubin. - Imaging from oncology's last note: Suggests worsening hepatic fibrosis and cirrhosis. TEST RESULTS SINCE LAST VISIT Imaging/Procedures: CT Abd/Pel WO IV CON 02/12/2024: No acute process within the abdomen or pelvis. Again seen are changes of the gallbladder suspicious for benign adenomyomatosis as seen on prior MRI of 06/22/2023. Renal Biopsy 04/03/2024 ubulointerstitial nephropathy with moderate chronic fibrosis (cisplatin-associated/clinical). - Negative for interstitial nephritis. Lymph Node biopsy 05/01/2024: -Residual adenocarcinoma, solid predominant -Eight lymph nodes, negative for malignancy (0) Hemoglobin (g/dL) Date Value 05/30/2024 9.9 10/25/2020 14.9 Hematocrit (%) Date Value 05/30/2024 29.0 10/25/2020 44.8 WBC (k/uL) Date Value 05/30/2024 10.62 10/25/2020 7.73 Glucose (mg/dL) Date Value 05/30/2024 81 01/18/2021 90 Potassium (mmol/L) Date Value 05/30/2024 4.6 01/18/2021 3.7 Sodium (mmol/L) Date Value 05/30/2024 135 01/18/2021 135 Chloride (mmol/L) Date Value 05/30/2024 99 01/18/2021 100 CO2 (mmol/L) Date Value 05/30/2024 28 01/18/2021 25 Creatinine (mg/dL) Date Value 05/30/2024 1.28 01/18/2021 0.70 BUN (mg/dL) Date Value 05/30/2024 12 01/18/2021 10 Anion Gap (mmol/L) Date Value 05/30/2024 8 01/18/2021 10 Calcium (mg/dL) Date Value 01/18/2021 9.5 Calcium, Total (mg/dL) Date Value 05/30/2024 8.7 Protein, Total (g/dL) Date Value 05/30/2024 7.7 01/18/2021 7.6 Albumin (g/dL) Date Value 05/30/2024 4.1 01/18/2021 4.2 Bilirubin, Total (mg/dL) Date Value 05/30/2024 0.2 01/18/2021 0.3 Alkaline Phosphatase (U/L) Date Value 05/30/2024 277 01/18/2021 159 AST (U/L) Date Value 05/30/2024 30 01/18/2021 29 ALT (U/L) Date Value 05/30/2024 31 01/18/2021 32 Current Outpatient Medications Medication Sig Dispense Refill levothyroxine (SYNTHROID) 50 mcg tablet Take 2 tablets by mouth daily at 6 am. 180 tablet 0 hydrOXYchloroQUINE (PLAQUENIL) 200 mg tablet Take 200 mg by mouth two times a day. PER DR. PINEDA (RHEUM) cinacalcet (SENSIPAR) 30 mg tablet Take 30 mg by mouth once daily. BIOTIN ORAL Take 1 tablet by mouth once daily. cholecalciferol, vitamin D3, (VITAMIN D3 ORAL) Take 1 tablet by mouth once daily. pantoprazole DR (PROTONIX) 40 mg tablet Take 40 mg by mouth once daily. Syringe with Needle, Disp, (BD TUBERCULIN SYRINGE) 1 mL 25 gauge x 5/8 Use to inject heparin subcutaneously two times a day. 6 each 0 acetaminophen (TYLENOL) 500 mg tablet Take 2 tablets by mouth every 6 hours as needed for pain. metoprolol tartrate, short acting, (LOPRESSOR) 25 mg tablet Take one half of a tablet by mouth every 12 hours. 30 tablet 0 polyethylene glycol 3350 17 gram packet Take 1 Packet by mouth once daily as needed for constipation. Dissolve dose in 4 - 8 ounces of liquid and take as directed. 7 Packet 0 oyxdybladaQADXE-vhjksv-rkgovgfxl (BMX 1:1:1) 1:1:1 liqd Take 5 mL by mouth every 4 hours as needed. 473 mL 2 ursodiol (ACTIGALL) 300 mg capsule Take 1 capsule by mouth three times a day. 270 capsule 3 prochlorperazine (COMPAZINE) 10 mg tablet Take 1 tablet by mouth every 6 hours as needed. For chemotherapy induced nausea and vomiting. 30 tablet 2 folic acid 1 mg tablet Take 1 tablet by mouth once daily. 90 tablet 2 clotrimazole-betamethasone (LOTRISONE) lotion Betamethasone / Clotrimazole Clotrimazole/Betamethasone Dip [Clotrimazole-Betamethasone Lot] 30 ML TP NEEDED PRN For SKIN June 14, 2017 Active 06-14-2017 [facility] ([id number]) tacrolimus (PROTOPIC) 0.1 % ointment Apply twice daily to affected areas on face 30 g 3 Clobetasol Propionate (TEMOVATE) 0.05 % external solution Apply to affected areas on the scalp twice a day. Dispense 100ml as 30 day supply. 100 mL 3 No current facility-administered medications for this visit. ALLERGIES Allergen Reactions Albuterol Other: See Comments kyra Morrison Adhesive Tape (Sammi* Itching Itching and redness US ABD RIGHT UPPER QUADRANT Apr 28 2024 IMPRESSION: Findings are suggestive of the liver cirrhosis. Echogenic focus along the gallbladder wall, presumably representing gallbladder polyp/cholesterol polyp. CT ABD/PEL Apr 01 2024 IMPRESSION: No hydronephrosis or hydroureter. Pelvic cystic mass can be further evaluated by ultrasound. Suspected cirrhosis CT ABD/PEL Feb 12 2024 IMPRESSION: No acute process within the abdomen or pelvis. Again seen are changes of the gallbladder suspicious for benign adenomyomatosis as seen on prior MRI of 06/22/2023. MRCP 06/22/23 RESULT: Liver: Normal morphology. Evaluation for signal loss on out of phase images somewhat compromised by artifact. No mass. Biliary: No intrahepatic or extrahepatic bile duct dilation. No biliary filling defect. 0.8 cm mural cystic structure compatible with intramural diverticula/cysts of adenomyomatosis (4:28). This corresponds with finding on prior ultrasound. Spleen: No mass. No splenomegaly. Pancreas: No mass or duct dilation. Adrenals: No mass. Kidneys: No solid or cystic mass. No hydronephrosis. GI: No dilated bowel or wall thickening along imaged segments. Lymph nodes: 2.5 x 1.1 cm periportal node, not significantly changed in size from CT 04/10/2017. Mesentery / Peritoneum / Retroperitoneum: No ascites or mass. Vasculature: The celiac axis and SMA are patent. The portal vein and branches, splenic vein, SMV, and hepatic veins are patent. No aortic aneurysm. Bones/Soft Tissues: No suspicious lesion. Lower chest: Unremarkable IMPRESSION: Focal area of benign cystic adenomyomatosis corresponds with the described gallbladder wall nodular thickening on prior ultrasound. PAST MEDICAL HISTORY Heart Disease: no Lung Disease: yes Liver problems: yes fatty liver Thyroid disease: no Kidney stones: no Depression or other mental illness: no PHYSICAL EXAMINATION There were no vitals taken for this visit. General Appearance: alert, oriented x 3, pleasant and in no acute distress Assessment IMPRESSION The patient is a 64-year-old female. She was last seen by me on 10/17/2023 with the following cumulative impression: 62-year-old female with a follow-up visit for primary biliary cirrhosis. She was last seen 11/22/2022 with the following impression: 60-year-old female with primary biliary cirrhosis. Her last office visit was 01/21/2020 with the following impression: The patient is doing great she is feeling well. Her LFTs are improved with minimal elevation of her alk phos. She had a follow-up right upper quadrant ultrasound showing adenomyomatosis of the gallbladder. The study was suboptimal because of gas in the abdomen. Her LFTs are improved as above. Her last EGD was in November 2018 and was normal. At this time we will have the patient follow-up with her blood test in 6 months. Would like to pursue a repeat endoscopy in November 2020. The patient will continue her medications at the above dosage. The patient's last FibroScan was 02/27/2019 with the following impression: Impression. The reading was adequate, and corresponds to Fibrosis stage F2 and steatosis grade of S3. The patient currently is feeling great she is having no pruritus, abdominal pain, confusion, weight gain. At this time she is scheduled for an EGD for varices E surveillance in November of this year. We will obtain repeat blood testing and a 6-month interval repeat right upper quadrant ultrasound. Since that time the patient has been doing very well. She is having no abdominal pain confusion, change in gait, abdominal pain, swelling, edema or bleeding. She did have on 11/12/2020 MRCP showing benign gallbladder adenomatosis no stones or biliary dilatation there was no gallbladder polyp. On 10/20/2020 she had a right upper quadrant ultrasound showing showing normal liver echotexture. On 11/22/2020 she had an EGD that was negative for Milton's and negative for varices. She will have a repeat EGD in 2 years. Her LFTs show persistent mild elevation of her alkaline phosphatase but normal transaminases. At this time we will repeat her LFTs continue her on the Actigall 300 3 times daily. We will plan on a repeat visit in 1 year. Update 11/22/2022: The patient is feeling great she is having no confusion, change in gait, observable clinical bleeding, or fluid retention. Her LFTs are now completely normal. At this time we will plan for 2-year interval EGD, annual right upper quadrant ultrasound, and every 6 months LFTs. I did offer to the patient to be seen by the primary sclerosing cholangitis/PSC study group but she declines at this time. Update 04/04/2023: Since that time the patient is doing well. Her LFTs are essentially normal, her follow-up sonogram showed sleep coarse echotexture, and her EGD did not show any varices. She is doing great and will continue on her current dose of medications and routine LFTs. She does have a gallbladder polyp that is increasing in size for which we will get an MRCP. Update 10/17/2023: Since that time the patient had the above described MRCP which shows adenomyomatosis of the gallbladder. Her LFTs were completely normal. However she has developed a new problem of a pulmonary malignancy. The cytology just came back and showed a poorly differentiated non-small cell carcinoma favor adenocarcinoma. Currently she is doing well from a GI perspective. I would suggest continuing medications and no other diagnostic tests from our perspective currently. Will see her back after treatment for her pulmonary malignancy. Will plan on a virtual visit in 3 to 4 months. Update 06/17/24: 1. Primary biliary cirrhosis (HCC) (K74.3) Patient has been following with Dr. Russo in [place] for non-small cell cancer of the right lung. Recent labs show an alkaline phosphatase of 277, normal transaminases, and normal bilirubin. CT of the abdomen on 04/01/24 showed no hydronephrosis or hydroureter, with suspicion of cirrhosis. Imaging suggests worsening hepatic fibrosis cirrhosis. LFTs are better than a few months ago. - Ordered FibroScan to assess the extent of hepatic fibrosis; schedulers to arrange the test in [place] or the closest location. - Continue monitoring liver function tests. 2. 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 LFTs are completely normal. 3. Non-small cell cancer of right lung (HCC) (C34.91) Patient has a CT1CN1 non-small cell cancer of the right lung. Completed treatment with Alimta and cisplatin; currently on Keytruda with no reported issues. Patient underwent robotic surgery on 05/01/24, removing 40% of the lower right lobe. 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 - Continue Keytruda therapy. - Follow-up with Dr. Russo tomorrow. - Discussed the importance of avoiding dust and pollutants; consider alternative work environments. PLAN We discussed your liver health and primary biliary cirrhosis: - Your liver function tests (LFTs) look good, with normal liver enzymes and bilirubin. Your alkaline phosphatase (Alk Phos) is stable at 277, which is consistent with prior results. - Imaging shows some lobularity and scarring in the liver, which is expected. To better assess the extent of liver scarring, I recommend a FibroScan, a specialized ultrasound that provides a score of liver fibrosis. We will work on scheduling this for you, preferably in [place] if available. - Keytruda, your current treatment for lung cancer, can sometimes cause liver inflammation, but this is not occurring in your case. We will continue to monitor your liver function closely. We discussed your pulmonary malignancy and treatment: - You have completed Alimta and cisplatin chemotherapy and are now on Keytruda. You are tolerating this well, and your kidney function is being monitored as part of your ongoing care. - You will follow up with Dr. Castle tomorrow regarding your lung cancer management. We discussed your post-surgical recovery: - You are still experiencing some numbness in the surgical area following your lung surgery on May 01. This is normal and may take up to six months to fully resolve. - You are currently on short-term disability until July 05. Please keep your providers updated on any changes to your work or disability status. We discussed your medications: - If you are running low on Protonix, please send me a message through [employer], and I will call in a refill for you. - For Plaquenil, you will need to contact your surfacing technician to have the prescription renewed. Next steps: - Schedule a FibroScan to assess liver fibrosis. We will coordinate with the schedulers to find a location, ideally in [place]. - Continue monitoring your symptoms and let us know if you experience any new or worsening issues. - Follow up with Dr. Russo as planned for your lung cancer care. Please reach out if you have any questions or concerns. Allen Valdes MD June 17, 2024 8:19 AM documented in this encounter [facility] 06-18-2024 Note [facility] 06-13-2024 Telephone encounter Note Images from the original note were not included. Patient was made aware of the results. Patient verbalizes understanding. Agustín Head Jacqueline A, APRN.GALILEA to [facility] 06/12/24 8:04 AM Note TSH is still high indicating not enough thyroid replacement. I will increase her dose to 100 mcg daily. Recheck TSH in 2 months. An order has been placed. [facility] 06-13-2024 Miscellaneous Notes Images from the original note were not included. Patient was made aware of the results. Patient verbalizes understanding. Agustín Head Jacqueline A[facility] APR[facility] 06/12/24 8:04 AM Note TSH is still high indicating not enough thyroid replacement. I will increase her dose to 100 mcg daily. Recheck TSH in 2 months. An order has been placed. TSH is still high indicating not enough thyroid replacement. I will increase her dose to 100 mcg daily. Recheck TSH in 2 months. An order has been placed. documented in this encounter [facility] 06-12-2024 Progress note Formatting of t his note might be different from the original. TSH is still high indicating not enough thyroid replacement. I will increase her dose to 100 mcg daily. Recheck TSH in 2 months. An order has been placed. [facility] 06-04-2024 Instructions Jennifer Renae APRN.CNP - 06/04/2024 9:43 AM EDT Continue using Tylenol as needed (approximately every 24 hours) to help manage shoulder pain. Use your Solonpas patch with lidocaine on the painful shoulder area when possible for additional relief. Apply ice to the affected area to help reduce inflammation and follow with moist heat as needed for soothing muscle tightness. Consider gently massaging the area (for example, using a tennis ball) to help loosen any knots in your shoulder muscle. If the pain persists after your patch wears off, you might try using Voltaren gel, which you can pickle cutter at your pharmacy. Your upcoming imaging review with Dr. Castle is scheduled for June 19; be sure to follow up with that appointment as planned. documented in this encounter [facility] 06-04-2024 Note [facility] 06-04-2024 History of Present illness Narrative This is a 64 year old female who presents today with: Vickey is a 64-year-old female with a history of lupus, presenting for follow-up after an ER visit for chest pain, with ongoing shoulder pain. Summary of ER notes: She went to [place] emergency room on 05/27/2024 after awakening around 2:30 AM with left-sided chest pain and mild ache in her back. She called her PCP office and was referred to the ED. She had a recent diagnosis of stage II lung cancer with adenocarcinoma. She had a right partial lower lobe lung resection on May 01. She was on heparin injections twice a day. She has no history of PE or DVT. There is no cardiac history. She had an EKG that showed a right bundle branch block. No acute findings. No old for comparison. Initial troponin was negative. D-dimer returned elevated. CT of the chest was negative for PE.. CT also showed a right pleural effusion with compressive atelectasis, possible consolidation per radiology however no clinical cough or concerns for pneumonia. Delta troponin returns negative. It was felt that pain was pleuritic. She will continue Tylenol. She had oxycodone from postop. HISTORY OF PRESENT ILLNESS: ER Visit: - Presented to the ER on 05/27 at 0230 with left-sided chest pain and mild backache. - EKG and troponins were negative. - D-dimer was elevated; CT chest showed no blood clots. - No further chest pain, dyspnea, palpitations, edema, dizziness, diaphoresis, or nausea since the ER visit. Shoulder Pain: - Persistent left shoulder pain since ER visit. - Describes pain as a sharp jab when bending over, taking a deep breath, or moving a certain way. - Pain radiates down the shoulder. - Using Salonpas with lidocaine and Tylenol PRN (approximately once every 24 hours) with some relief. - Able to elicit relief by popping the shoulder, but not consistently. - Denies known trauma or injury. Surgical History: - Partial right lobe lung resection on 05/01. - Completed 28-day course of Heparin injections BID. - Completed course of half a pill for AFib. Family History: - Mother had a CVA. - Father had angioplasty in his 60s. PAST MEDICAL HISTORY: PAST MEDICAL HISTORY Diagnosis Date Hemorrhage of rectum and anus HYPERLIPIDEMIA MIXED 07/10/2005 Lung nodule 06/13/2016 June 25, 2017 subcentimeter lung nodules and interstitial lung disease also stable from 2017: check CT in 1 year. Primary biliary cholangitis (HCC) Snoring Systemic lupus erythematosus (HCC) PAST SURGICAL HISTORY Procedure Laterality Date BRONCHOSCOPY 07/31/2023 COLONOSCOPY FLX DX W/COLLJ SPEC WHEN PFRMD 06/29/2016 HAD VASOVAGAL RESPONSE DURING PROCEDURE SYST BP 60'S HR 40'S-GIVEN ATROPINE CORRJ HLX VLGS BNCTY SESMDC DSTL METAR OSTEOT 1986 DIAGNOSTIC ARTHROSCOPY SHOULDER +- SYNOVIAL BX Left 04/03/2018 Left shoulder arthroscopic subacromial decompression, rotator cuff repair, and biceps tenotomy EGD 12/25/2022 repeat 2 years ESOPHAGOGASTRODUODENOSCOPY TRANSORAL DIAGNOSTIC 11/11/2018 EGD ESOPHAGOGASTRODUODENOSCOPY TRANSORAL DIAGNOSTIC 11/22/2020 repeat in 2 years FOOT SURGERY HX 1986 HYSTEROSCOPY 06/21/2017 D&C LUNG BIOPSY HX 08/24/2023 SIGMOIDOSCOPY ?2000 SKIN BIOPSY HX TONSILLECTOMY HX ALLERGIES Albuterol and Adhesive Tape (Rosins) MEDICATIONS Current Outpatient Medications Medication Sig hydrOXYchloroQUINE (PLAQUENIL) 200 mg tablet Take 200 mg by mouth two times a day. PER DR. PINEDA (RHEUM) cinacalcet (SENSIPAR) 30 mg tablet Take 30 mg by mouth once daily. BIOTIN ORAL Take 1 tablet by mouth once daily. cholecalciferol, vitamin D3, (VITAMIN D3 ORAL) Take 1 tablet by mouth once daily. pantoprazole DR (PROTONIX) 40 mg tablet Take 40 mg by mouth once daily. Syringe with Needle, Disp, (BD TUBERCULIN SYRINGE) 1 mL 25 gauge x 5/8 Use to inject heparin subcutaneously two times a day. acetaminophen (TYLENOL) 500 mg tablet Take 2 tablets by mouth every 6 hours as needed for pain. metoprolol tartrate, short acting, (LOPRESSOR) 25 mg tablet Take one half of a tablet by mouth every 12 hours. polyethylene glycol 3350 17 gram packet Take 1 Packet by mouth once daily as needed for constipation. Dissolve dose in 4 - 8 ounces of liquid and take as directed. levothyroxine (SYNTHROID) 50 mcg tablet Take 1 tablet by mouth daily at 6 am. slnsyokngeXVWFW-nulmho-jwvzjxrlz (BMX 1:1:1) 1:1:1 liqd Take 5 mL by mouth every 4 hours as needed. ursodiol (ACTIGALL) 300 mg capsule Take 1 capsule by mouth three times a day. prochlorperazine (COMPAZINE) 10 mg tablet Take 1 tablet by mouth every 6 hours as needed. For chemotherapy induced nausea and vomiting. folic acid 1 mg tablet Take 1 tablet by mouth once daily. clotrimazole-betamethasone (LOTRISONE) lotion Betamethasone / Clotrimazole Clotrimazole/Betamethasone Dip [Clotrimazole-Betamethasone Lot] 30 ML TP NEEDED PRN For SKIN June 14, 2017 Active 06-14-2017 [facility] ([id number]) tacrolimus (PROTOPIC) 0.1 % ointment Apply twice daily to affected areas on face Clobetasol Propionate (TEMOVATE) 0.05 % external solution Apply to affected areas on the scalp twice a day. Dispense 100ml as 30 day supply. No current facility-administered medications for this visit. FAMILY HISTORY Problem Relation Age of Onset Diabetes Mother Hypertension Mother Stroke Mother other (? SFTP) Mother Heart Father age 60's other (PBC) Father None Brother Obstructive Sleep Apnea Brother Colon Cancer Paternal Grandmother Colon Cancer Paternal Grandfather Social History Tobacco Use Smoking status: Former Current packs/day: 0.00 Average packs/day: 0.2 packs/day for 30.0 years (4.5 ttl pk-yrs) Types: Cigarettes Start date: 1985 Quit date: 2015 Years since quittin.3 Smokeless tobacco: Never Tobacco comments: Pt smoked one pack a week x 30 years, quit 2015 Vaping Use Vaping status: Never Used Substance Use Topics Alcohol use: No Drug use: No REVIEW OF SYSTEMS Cardiovascular: (-) chest pain, (-) palpitations, (-) pedal edema Respiratory: (-) shortness of breath Gastrointestinal: (-) nausea Musculoskeletal: (+) shoulder pain Skin: (+) bruising Neurological: (-) dizziness EXAM: BP 100/68 Pulse 81 Resp 16 SpO2 97% PHYSICAL EXAM: General Appearance: Well appearing, alert, in no acute distress, well-hydrated, well nourished.. Skin: Skin color, texture, turgor normal, no suspicious rashes or lesions. Head: Normocephalic, no masses, lesions, tenderness or abnormalities. Eyes: Anicteric sclera. Extraocular movements are intact. . Neck: Supple, no adenopathy; thyroid symmetric, normal size, no bruits. Lungs: Lungs clear to auscultation. Absent right base. Heart: RRR without murmur, gallop, or rubs. No ectopy. Back: pain reproducible in the left trap. Abdomen: Abdomen soft, non-tender. Bowel sounds normal. No masses, organomegaly. Extremities: No deformities, edema, skin discoloration, clubbing or cyanosis. Good capillary refill. Full ROM intact to the left shoulder. Negative empty can test. Neurologic: Gait normal. ASSESSMENT/PLAN 1. Chest discomfort (R07.89) - Resolved; no current chest pain, shortness of breath, palpitations, or edema. - Recent ER visit on the included EKG, which showed no abnormalities, and negative troponin levels. Elevated D-dimer prompted a CT scan of the chest, which ruled out pulmonary embolism. - No further intervention required at this time. 2. Acute pain of right shoulder (M25.511) - Persistent sharp pain in the right shoulder, exacerbated by certain movements and deep breaths. - Physical examination reveals tenderness in the trapezius muscle. - Recommended continuation of Salonpas patches with lidocaine and use of Tylenol as needed. - Advised application of ice and moist heat to the affected area. - Suggested use of Voltaren gel for additional anti-inflammatory effect. - Educated on the use of a tennis ball for self-massage to alleviate muscle knots. - Patient declined muscle relaxants due to potential side effects and liver enzyme concerns. 3. Strain of left trapezius muscle, subsequent encounter (S46.922D) - Likely contributing to shoulder pain; + tenderness on palpation. - Continue conservative management with topical treatments and physical modalities as outlined above. Discussed treatment plan and patient voices understanding. Patient's questions answered appropriately. Medications and potential side effects were discussed and patient voices understanding. Return to the office as scheduled or as needed for worsening/no improvement. Jennifer Renae APRN.GALILEA Recording using Ramen software for draft documentation of the visit was discussed with the patient/authorized welding equipment sales representative; all questions welcomed and answered. Patient/authorized welding equipment sales representative agreed to proceed documented in this encounter [facility] 05-27-2024 Telephone encounter Note Patient calls for chest pain that radiates to the left shoulder. Nurse triage recommends go to ED now. Patient agreeable and will have someone take her to [facility] ER. Care advice reviewed with verbalized understanding. Reason for Disposition Pain also in shoulder(s) or arm(s) or jaw (Exception: Pain is clearly made worse by movement.) Answer Assessment - Initial Assessment Questions 1. LOCATION: Left upper chest. Started at 230 am and was pretty severe now moderate but constant. Radiates to right shoulder/upper arm. Patient reports that when she lifts the left arm the pain is alleviated some. Doesn't recall any recent injuries. Reports lobectomy in April but never had this feeling. 2. RADIATION: Radiates into left arm/shoulder. 3. ONSET: 230 am 4. PATTERN: Constant. 5. DURATION: Constant since 230 am changes in intensity. 6. SEVERITY: - MODERATE (4-7): Interferes with normal activities or awakens from sleep. - 7. CARDIAC RISK FACTORS: Hx of smoking Denies angina, prior heart attack; diabetes, high blood pressure, high cholesterol, or strong family history of heart disease. 8. PULMONARY RISK FACTORS: Patient reports history of lung cancer. No blood clots in lung, asthma, emphysema, control pills 9. CAUSE: Patient is not certain 10. OTHER SYMPTOMS: No dizziness, nausea, vomiting, sweating, fever, difficulty breathing, cough Protocols used: Chest [id number] [facility] 05-27-2024 Miscellaneous Notes Patient calls for chest pain that radiates to the left shoulder. Nurse triage recommends go to ED now. Patient agreeable and will have someone take her to [facility] ER. Care advice reviewed with verbalized understanding. Reason for Disposition Pain also in shoulder(s) or arm(s) or jaw (Exception: Pain is clearly made worse by movement.) Answer Assessment - Initial Assessment Questions 1. LOCATION: Left upper chest. Started at 230 am and was pretty severe now moderate but constant. Radiates to right shoulder/upper arm. Patient reports that when she lifts the left arm the pain is alleviated some. Doesn't recall any recent injuries. Reports lobectomy in April but never had this feeling. 2. RADIATION: Radiates into left arm/shoulder. 3. ONSET: 230 am 4. PATTERN: Constant. 5. DURATION: Constant since 230 am changes in intensity. 6. SEVERITY: - MODERATE (4-7): Interferes with normal activities or awakens from sleep. - 7. CARDIAC RISK FACTORS: Hx of smoking Denies angina, prior heart attack; diabetes, high blood pressure, high cholesterol, or strong family history of heart disease. 8. PULMONARY RISK FACTORS: Patient reports history of lung cancer. No blood clots in lung, asthma, emphysema, control pills 9. CAUSE: Patient is not certain 10. OTHER SYMPTOMS: No dizziness, nausea, vomiting, sweating, fever, difficulty breathing, cough Protocols used: Chest [id number] documented in this encounter [facility] 05-26-2024 Telephone encounter Note ONCOLOGY PATIENT EDUCATION NOTE TOPIC: Immunotherapy, Medications: Keytruda patient called today for education for treatment of Stage II NSCLC, adenocarcinoma. Anticipated/Scheduled start date: 05/30/24 READINESS TO LEARN: COGNITIVE ABILITY: Alert and oriented MOTIVATION TO LEARN: Interested FAMILY SUPPORT: Unable to assess - Family not present INSTRUCTION PROVIDED TO: Patient INSTRUCTION PROVIDED BY: Nurse Coordinator PATIENT LEARNS BEST BY: Multiple Methods FACTORS AFFECTING LEARNING: None PHYSICAL LIMITATIONS AFFECTING LEARNING: None LEARNING RESPONSE METHOD OF INSTRUCTION: Individual instruction Written instruction/Handouts Verbal instruction PATIENT/FAMILY RESPONSE: Verbalizes understanding of: CHEMOTHERAPY-Regimen, toxicity and side effects FOLLOW UP PLAN: Patient instructed to call with any further issues Recommend - Recommend continued instruction and follow up as directed Follow up phone call. Contact information given. SUPPLEMENTAL MATERIAL: Written material was provided at this visit with the following information: - Immunotherapy education was provided by a pharmacist NO - Side effect management information was provided/discussed including but not limited to: bowel habit changes, electrolyte disturbances, fatigue, rash, skin changes YES - Provided important phone numbers and contacts during and after hours. YES - Provided information on symptoms that require immediate assistance. YES - Provided Immunotherapy when to call handouts YES - Preventing infection. YES - Treatment schedule and confirmation of appointment times. YES - Available support groups. YES - The importance of contraception during the course of chemotherapy YES - discussed the immunotherapy when to call sheet; will mail out a new copy with a new immunotherapy wallet card. Patient has had immunotherapy in the past. Reviewed common side effects, frequency/length of treatment, and answered her questions. Time Spent: 15 minutes REFERRAL (RECOMMENDATION): N/A Ann Randolph RN [facility] 05-26-2024 Miscellaneous Notes ONCOLOGY PATIENT EDUCATION NOTE TOPIC: Immunotherapy, Medications: Keytruda patient called today for education for treatment of Stage II NSCLC, adenocarcinoma. Anticipated/Scheduled start date: 05/30/24 READINESS TO LEARN: COGNITIVE ABILITY: Alert and oriented MOTIVATION TO LEARN: Interested FAMILY SUPPORT: Unable to assess - Family not present INSTRUCTION PROVIDED TO: Patient INSTRUCTION PROVIDED BY: Nurse Coordinator PATIENT LEARNS BEST BY: Multiple Methods FACTORS AFFECTING LEARNING: None PHYSICAL LIMITATIONS AFFECTING LEARNING: None LEARNING RESPONSE METHOD OF INSTRUCTION: Individual instruction Written instruction/Handouts Verbal instruction PATIENT/FAMILY RESPONSE: Verbalizes understanding of: CHEMOTHERAPY-Regimen, toxicity and side effects FOLLOW UP PLAN: Patient instructed to call with any further issues Recommend - Recommend continued instruction and follow up as directed Follow up phone call. Contact information given. SUPPLEMENTAL MATERIAL: Written material was provided at this visit with the following information: - Immunotherapy education was provided by a pharmacist NO - Side effect management information was provided/discussed including but not limited to: bowel habit changes, electrolyte disturbances, fatigue, rash, skin changes YES - Provided important phone numbers and contacts during and after hours. YES - Provided information on symptoms that require immediate assistance. YES - Provided Immunotherapy when to call handouts YES - Preventing infection. YES - Treatment schedule and confirmation of appointment times. YES - Available support groups. YES - The importance of contraception during the course of chemotherapy YES - discussed the immunotherapy when to call sheet; will mail out a new copy with a new immunotherapy wallet card. Patient has had immunotherapy in the past. Reviewed common side effects, frequency/length of treatment, and answered her questions. Time Spent: 15 minutes REFERRAL (RECOMMENDATION): N/A Ann Randolph RN documented in this encounter [facility] 05-22-2024 Note [facility] 05-22-2024 History of Present illness Narrative Images from the original note were not included. [facility] [place] Department of Thoracic Surgery TELEPHONE VISIT (audio only) PROGRESS NOTE This is a telephone encounter initiated for an established patient. The patient, parent or guardian is not originating from a related Evaluation & Management service provided within the previous 7 days nor leading to an Evaluation & Management service or procedure within the next 24 hours or soonest available appointment. I have communicated my name and active licensure. The patient's identity and physical location were verified at the time of this visit. Either the patient or their legal welding equipment sales representative has been informed of the risks and benefits of -- and alternatives to -- treatment through a remote evaluation and consents to proceed with the evaluation remotely. Vickey Schwartz has consented to this telephone encounter. Persons Present: patient Total Time Spent: 21-30 minutes Tessie Kaufman APRN.DIRECTOR OF PURCHASING Part of this note was copied from previous note, all content has been individually reviewed, updated as necessary, and thoroughly reviewed. [facility] - OUTPATIENT THORACIC SURGERY CLINIC NOTE PT NAME: Vickey Schwartz [facility] NO: [id number] THORACIC SURGEON: Janett Feliciano M.D. DATE OF SERVICE: May 22, 2024 PRINCIPAL DX: [id number]/stage IIB adenocarcinoma of the right lower lobe of lung SURGICAL HX: 05/01/2024: Robotic Right Lower Lobectomy, Lymph node harvest as follows, Intercostal nerve blocks Surgical Pathology: FINAL DIAGNOSIS A. Lymph node, level 7, excision: - One lymph node, negative for malignancy (0/1). B. Lymph node, level 8, excision: - One lymph node, negative for malignancy (0/1). C. Lymph node, level 10R, excision: - One lymph node, negative for malignancy (0/1). D. Lymph node, level 12R, excision: - One lymph node, negative for malignancy (0/1). E. Lymph node, level 11R, excision: - One lymph node, negative for malignancy (0/1). F. Lymph node, level 11 anterior, excision: - Metastatic carcinoma in two of two lymph nodes (2/2). G. Lymph node, level 12R, excision: - Metastatic carcinoma in one of one lymph node (1/1). H. Lymph node, level 12R, excision: - One lymph node, negative for malignancy (0/1). I. Lymph node, level 9, excision: - Fibroadipose tissue, no tumor or lymph node tissue seen. J. Lung, right lower lobe, lobectomy: - Residual adenocarcinoma, solid predominant (see comment and synoptic report). - Eight lymph nodes, negative for malignancy (0/8). at 2343 EDT Diagnosis Comment J. Immunohistochemical stains performed on block J4 show that the tumor cells are negative for TTF-1 and p40. Visceral pleural invasion is confirmed by Movat special stains performed on block J4 and J6 (stain was also performed on block J7). Block for additional Biomarkers/Molecular studies J5 Synoptic Report LUNG 8th Edition - Protocol posted: 10/26/2021LUNG: RESECTION - All Specimens SPECIMEN Procedure Lobectomy Specimen Laterality Right TUMOR Tumor Focality Single focus Tumor Site Lower lobe of lung Tumor Size Total Tumor Size (size of entire tumor) Greatest Dimension (Centimeters): 2.5 cm Histologic Type Invasive solid adenocarcinoma Histologic Patterns Present Acinar: 5% Solid: 95% Histologic Grade G3, poorly differentiated Spread Through Air Spaces (LEAH) Not identified Visceral Pleura Invasion Present Direct Invasion of Adjacent Structures Not applicable (no adjacent structures present) Treatment Effect Present Percentage of Residual Viable Tumor 75 % Percentage of Necrosis 10 % Percentage of Stroma (includes fibrosis and inflammation) 15 % Lymphovascular Invasion Present MARGINS Margin Status for Invasive Carcinoma All margins negative for invasive carcinoma Closest Margin(s) to Invasive Carcinoma Bronchial Vascular Parenchymal Distance from Invasive Carcinoma to Closest Margin 3.3 cm Margin Status for Non-Invasive Tumor Not applicable REGIONAL LYMPH NODES Lymph Node(s) from Prior Procedures Not included Regional Lymph Node Status Tumor present in regional lymph node(s) Number of Lymph Nodes with Tumor 3 Shanice Site(s) with Tumor 11R: Interlobar 12R: Lobar Number of Lymph Nodes Examined 17 Shanice Site(s) Examined 8R: Para-esophageal (below flex) 9R: Pulmonary ligament 10R: Hilar 11R: Interlobar 12R: Lobar 7: Subcarinal PATHOLOGIC STAGE CLASSIFICATION (pTNM, AJCC 8th Edition) Reporting of pT, pN, and (when applicable) pM categories is based on information available to the pathologist at the time the report is issued. As per the AJCC (Chapter 1, 8th Ed.) it is the managing physician s responsibility to establish the final pathologic stage based upon all pertinent information, including but potentially not limited to this pathology report. TNM Descriptors y (post-treatment) pT Category pT2a pN Category pN1 ADDITIONAL FINDINGS Additional Findings None identified . REASON FOR VISIT: Post-operative visit HPI: Vickey Schwartz is a 64 year old female with lung nodule discovered on lung cancer screening study for surveillance of her interstitial pulmonary fibrosis.CT of the chest done in June 2023 demonstrated an interval new 13 x 19 mm right lower lobe subpleural nodule. PET scan done in July 2023 demonstrated the rght lung nodule measuring 20.6 mm with an SUV of 14.0. Perihilar lymph nodes measuring up to 11 mm which were stable in size with an SUV of 10.7. CT guided biopsy performed with pathology showing poorly differentiated non-small cell carcinoma favoring adenocarcinoma. She underwent bronchoscopy with EBUS. Samples from 11 RS demonstrated rare atypical epithelial cells and station 7 was negative for malignant cells. 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 Underwent induction of chemo immunotherapy and developed what was thought to be an inflammatory process in her kidneys resulting in renal insufficiency. On 05/01/24 she underwent Robotic Right Lower Lobectomy, Lymph node harvest as follows, Intercostal nerve blocks by Dr Feliciano. Discharged 05/03/24. PHYSICAL EXAM: VITAL SIGNS: There were no vitals taken for this visit. Room air Incision location: Right Thoracoport sites and Right Old chest tube sites Incision Assessment: Well approximated and no drainage, swelling, erythema or warmth Drain/Tubes: N/A IMAGING/TESTS: CXR 05/09/2024 : PENDING CXR 05/21/24 INTERVAL HISTORY: Vickey Schwartz is phoned today for a visit following CXR done locally. She has been doing better. Breathing has improved with use of the Vibrapep. She has been trying to walk when the weather permits. Incisions are healing well. Was able to stop Oxycodone 3 days ago. Using Tylenol. CXR shows improved right lung expansion. Small right pleural effusion is present but has decreased in size. She will be starting immunotherapy next week. She will get another CXR at [facility] in 6 weeks and will have a phone visit the next day. 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 IMproved right lung expansionj PLAN: - CXR in 6 weeks at [facility] and have a phone visit the next day - oncology management with Dr Castle, f/u 06/19/24 - local nephrology Dr Xavi Kaufman APRN.DIRECTOR OF PURCHASING documented in this encounter [facility] 05-21-2024 Telephone encounter Note Scheduled treatment Cheli Aguero [facility] 05-21-2024 Miscellaneous Notes Scheduled treatment Cheli Aguero Every 3 week Keytruda only. Lisa Ritchie LPN AVS 05/21- Restart every 3 week Keytruda next week on or Sunday. Will need CBC/CMP that day. OV/CBC/CMP/TSH/T4/Cortisol for cycle 2. Is patients treatment changing to Keyruda Please advise Cheli Aguero documented in this encounter [facility] 05-21-2024 Telephone encounter Note Every 3 week Keytruda only. Lisa Ritchie LPN [facility] 05-21-2024 Telephone encounter Note AVS 05/21- Restart every 3 week Keytruda next week on or Sunday. Will need CBC/CMP that day. OV/CBC/CMP/TSH/T4/Cortisol for cycle 2. Is patients treatment changing to Keyruda Please advise Cheli Aguero [facility] 05-21-2024 Note [facility] 05-21-2024 History of Present illness Narrative Oncologic problem(s): 1) Stage II NSCLC, adenocarcinoma. HPI: The patient is a 64-year-old female with a past medical history as outlined below. The patient is a former smoker of approximately 7-pack-year, quit in 2015. She is on Plaquenil for history of lupus. She has primary biliary cholangitis. She had a nodule discovered on lung cancer screening study for surveillance of her interstitial pulmonary fibrosis. A CT of the chest done in June 2023 demonstrated an interval new 13 x 19 mm right lower lobe subpleural nodule. PET scan done in July showed the nodule to measure 20.6 mm with an SUV of 14.0. Perihilar lymph nodes measuring up to 11 mm which were stable in size with an SUV of 10.7. She underwent a CT-guided biopsy of the right lower lobe nodule. Pathology demonstrated poorly differentiated non-small cell carcinoma favoring adenocarcinoma. She underwent bronchoscopy with EBUS. Samples from 11 RS demonstrated rare atypical epithelial cells and station 7 was negative for malignant cells. 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 CT has been stable and pulmonary function tests do not show restriction or low diffusing capacity. Patient prefers pulmonary follow-up closer to home. Patient is asymptomatic so antifibrotic therapy has been on hold. 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 She denies significant dyspnea except for with extreme activity. Chronic cough or sputum production. No wheezing. She used to smoke a pack a week but quit in 2015 when she had note of a small nodule on chest CT. Today she states that she continues to do well. Her Plaquenil controls her cutaneous symptoms. She has no arthralgias, erythema or joint effusions, no skin lesions, no edema. She does have photosensitivity and limits her sun exposure. She has excessive daytime sleepiness, known snoring and witnessed apneas. HSAT from 2020 showed possible mild obstructive sleep at but she never followed through with formal in lab sleep study. She states that she can fall asleep easily when sitting watching TV or working on her computer. She is a loud snorer, in fact her brother has been bothering her to be reevaluated for apnea. Per initial consultation: She is working on a daily basis. 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 Gets short of breath with trying to run or walking steeper slopes. Recent 6-minute walk test results were very good. Recently had testing for sleep apnea which suggested sleep apnea. It was a home sleep study test. Occasional dry cough but not frequent throughout the day. 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 Appetite has been normal. Presents for ongoing oncologic management. Interim history: Repeat CT chest 10/23/2023: Soft tissue mass along the posterior superior segment of the right lower lobe is increased in size, currently measuring 26 x 21 x 28 mm in transverse, AP and craniocaudal dimensions respectively, while previously measuring 20 x 16 x 27 mm in these same orientations. Numerous additional small lung nodules are unchanged relative to previous studies including 12/05/2021 Pleural space: No pleural effusion. No pleural thickening. Lower neck, lymph nodes, and mediastinum: There is new right hilar lymphadenopathy, measuring up to 13 mm in short axis on image 121. Additional enlarged right hilar nodes are present. 8 mm right paratracheal node. No axillary lymphadenopathy. Bronchoscopy 11/22/2023: Pathology: A - Lymph Node, Transbronchial, Aspirate/Fine Needle Aspirate - 4R Negative for malignant cells. Benign lymphoid sample. B - Lymph Node, Transbronchial, Aspirate/Fine Needle Aspirate - 11RS Positive for malignant cells. Non-small cell carcinoma. C - Lymph Node, Transbronchial, Aspirate/Fine Needle Aspirate - 11RI Positive for malignant cells. Non-small cell carcinoma. Current therapy: 1) Neoadjuvant pemetrexed, cisplatin and pembrolizumab. Completed 4 cycles. Cisplatin omitted cycles 3 and 4 due to CRISTINO. Was admitted to [facility] 05/01/2024for daily IV methylprednisolone. Underwent renal biopsy. Was given a dose of Zometa for hypercalcemia. Discharged on prednisone 30 mg daily. 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 Presents for ongoing oncologic management. Interim history: Underwent a robotic assisted right lower lobectomy and mediastinal and hilar lymph node dissection on 05/01/2024. Pathology: FINAL DIAGNOSIS A. Lymph node, level 7, excision: - One lymph node, negative for malignancy (0/1). B. Lymph node, level 8, excision: - One lymph node, negative for malignancy (0/1). C. Lymph node, level 10R, excision: - One lymph node, negative for malignancy (0/1). D. Lymph node, level 12R, excision: - One lymph node, negative for malignancy (0/1). E. Lymph node, level 11R, excision: - One lymph node, negative for malignancy (0/1). F. Lymph node, level 11 anterior, excision: - Metastatic carcinoma in two of two lymph nodes (2/2). G. Lymph node, level 12R, excision: - Metastatic carcinoma in one of one lymph node (1/1). H. Lymph node, level 12R, excision: - One lymph node, negative for malignancy (0/1). I. Lymph node, level 9, excision: - Fibroadipose tissue, no tumor or lymph node tissue seen. J. Lung, right lower lobe, lobectomy: - Residual adenocarcinoma, solid predominant (see comment and synoptic report). - Eight lymph nodes, negative for malignancy (0/8). at 2343 EDT Diagnosis Comment J. Immunohistochemical stains performed on block J4 show that the tumor cells are negative for TTF-1 and p40. Visceral pleural invasion is confirmed by Movat special stains performed on block J4 and J6 (stain was also performed on block J7). Block for additional Biomarkers/Molecular studies J5 Synoptic Report LUNG 8th Edition - Protocol posted: 10/26/2021LUNG: RESECTION - All Specimens SPECIMEN Procedure Lobectomy Specimen Laterality Right TUMOR Tumor Focality Single focus Tumor Site Lower lobe of lung Tumor Size Total Tumor Size (size of entire tumor) Greatest Dimension (Centimeters): 2.5 cm Histologic Type Invasive solid adenocarcinoma Histologic Patterns Present Acinar: 5% Solid: 95% Histologic Grade G3, poorly differentiated Spread Through Air Spaces (LEAH) Not identified Visceral Pleura Invasion Present Direct Invasion of Adjacent Structures Not applicable (no adjacent structures present) Treatment Effect Present Percentage of Residual Viable Tumor 75 % Percentage of Necrosis 10 % Percentage of Stroma (includes fibrosis and inflammation) 15 % Lymphovascular Invasion Present MARGINS Margin Status for Invasive Carcinoma All margins negative for invasive carcinoma Closest Margin(s) to Invasive Carcinoma Bronchial Vascular Parenchymal Distance from Invasive Carcinoma to Closest Margin 3.3 cm Margin Status for Non-Invasive Tumor Not applicable REGIONAL LYMPH NODES Lymph Node(s) from Prior Procedures Not included Regional Lymph Node Status Tumor present in regional lymph node(s) Number of Lymph Nodes with Tumor 3 Shanice Site(s) with Tumor 11R: Interlobar 12R: Lobar Number of Lymph Nodes Examined 17 Shanice Site(s) Examined 8R: Para-esophageal (below flex) 9R: Pulmonary ligament 10R: Hilar 11R: Interlobar 12R: Lobar 7: Subcarinal PATHOLOGIC STAGE CLASSIFICATION (pTNM, AJCC 8th Edition) Reporting of pT, pN, and (when applicable) pM categories is based on information available to the pathologist at the time the report is issued. As per the AJCC (Chapter 1, 8th Ed.) it is the managing physician s responsibility to establish the final pathologic stage based upon all pertinent information, including but potentially not limited to this pathology report. TNM Descriptors y (post-treatment) pT Category pT2a pN Category pN1 PAST MEDICAL HISTORY Diagnosis Date Hemorrhage of rectum and anus HYPERLIPIDEMIA MIXED 07/10/2005 Lung nodule 06/13/2016 June 25, 2017 subcentimeter lung nodules and interstitial lung disease also stable from 2017: check CT in 1 year. Primary biliary cholangitis (HCC) Snoring Systemic lupus erythematosus (HCC) PAST SURGICAL HISTORY Procedure Laterality Date BRONCHOSCOPY 07/31/2023 COLONOSCOPY FLX DX W/COLLJ SPEC WHEN PFRMD 06/29/2016 HAD VASOVAGAL RESPONSE DURING PROCEDURE SYST BP 60'S HR 40'S-GIVEN ATROPINE CORRJ HLX VLGS BNCTY SESMDC DSTL METAR OSTEOT 1985 DIAGNOSTIC ARTHROSCOPY SHOULDER +- SYNOVIAL BX Left 04/03/2018 Left shoulder arthroscopic subacromial decompression, rotator cuff repair, and biceps tenotomy EGD 12/25/2022 repeat 2 years ESOPHAGOGASTRODUODENOSCOPY TRANSORAL DIAGNOSTIC 11/11/2018 EGD ESOPHAGOGASTRODUODENOSCOPY TRANSORAL DIAGNOSTIC 11/22/2020 repeat in 2 years FOOT SURGERY HX 1986 HYSTEROSCOPY 06/21/2017 D&C LUNG BIOPSY HX 08/24/2023 SIGMOIDOSCOPY ?2000 SKIN BIOPSY HX TONSILLECTOMY HX BIOTIN ORAL Take 1 tablet by mouth once daily. cholecalciferol, vitamin D3, (VITAMIN D3 ORAL) Take 1 tablet by mouth once daily. pantoprazole DR (PROTONIX) 40 mg tablet Take 40 mg by mouth once daily. Syringe with Needle, Disp, (BD TUBERCULIN SYRINGE) 1 mL 25 gauge x 5/8 Use to inject heparin subcutaneously two times a day. acetaminophen (TYLENOL) 500 mg tablet Take 2 tablets by mouth every 6 hours as needed for pain. metoprolol tartrate, short acting, (LOPRESSOR) 25 mg tablet Take one half of a tablet by mouth every 12 hours. heparin 5,000 unit/mL injection Inject 1 mL subcutaneously every 12 hours for 28 days. polyethylene glycol 3350 17 gram packet Take 1 Packet by mouth once daily as needed for constipation. Dissolve dose in 4 - 8 ounces of liquid and take as directed. levothyroxine (SYNTHROID) 50 mcg tablet Take 1 tablet by mouth daily at 6 am. ovbwoubyfvYCWTD-mtqsde-ykqxowwko (BMX 1:1:1) 1:1:1 liqd Take 5 mL by mouth every 4 hours as needed. ursodiol (ACTIGALL) 300 mg capsule Take 1 capsule by mouth three times a day. prochlorperazine (COMPAZINE) 10 mg tablet Take 1 tablet by mouth every 6 hours as needed. For chemotherapy induced nausea and vomiting. folic acid 1 mg tablet Take 1 tablet by mouth once daily. clotrimazole-betamethasone (LOTRISONE) lotion Betamethasone / Clotrimazole Clotrimazole/Betamethasone Dip [Clotrimazole-Betamethasone Lot] 30 ML TP NEEDED PRN For SKIN June 14, 2017 Active 06-14-2017 [facility] ([id number]) tacrolimus (PROTOPIC) 0.1 % ointment Apply twice daily to affected areas on face Clobetasol Propionate (TEMOVATE) 0.05 % external solution Apply to affected areas on the scalp twice a day. Dispense 100ml as 30 day supply. cinacalcet (SENSIPAR) 30 mg tablet Take 1 tablet by mouth once daily. (Patient not taking: Reported on 05/21/2024) ALLERGIES Allergen Reactions Albuterol Other: See Comments krya Morrison Adhesive Tape (Sammi* Itching Itching and redness FAMILY HISTORY Problem Relation Age of Onset Diabetes Mother Hypertension Mother Stroke Mother other (? SFTP) Mother Heart Father age 60's other (PBC) Father None Brother Obstructive Sleep Apnea Brother Colon Cancer Paternal Grandmother Colon Cancer Paternal Grandfather Social History Tobacco Use Smoking status: Former Current packs/day: 0.00 Average packs/day: 0.2 packs/day for 30.0 years (4.5 ttl pk-yrs) Types: Cigarettes Start date: 1985 Quit date: 2016 Years since quittin.2 Smokeless tobacco: Never Tobacco comments: Pt smoked one pack a week x 30 years, quit 2016 Vaping Use Vaping status: Never Used Substance Use Topics Alcohol use: No Drug use: No REVIEW OF SYSTEMS: Constitutional: No episodes of fever and night sweats. Not significantly fatigued. Neuro: No GUTIERREZ, vertigo, dizziness and imbalance. No symptoms of neuropathy. HEENT: No recent change in voice, vision or hearing. Resp: See above. CVS: Denies exertional chest pain, PND, orthopnea and LE edema. GI: Denies dysphagia and odynophagia. Denies reflux, n/v, change in bowel habits and abdominal pain. : Denies dysuria or gross hematuria. No symptoms of bladder outlet obstruction. Endo: Denies hot flashes. Denies polyuria and polydipsia. Denies heat and cold intolerance. Musculoskeletal: Denies bone, back, joint and muscular pain. Derm: See above. Heme: Denies unusual bleeding and unexplained bruising. Psych: Normal mood. PHYSICAL EXAM: Vitals: Blood pressure 118/72, pulse 61, temperature 37 C (98.6 F), temperature source Temporal, weight 83.7 kg (184 lb 8 oz), SpO2 99%. Well-appearing and in no acute distress. EYES: Sclerae are anicteric bilaterally. Respiratory breath sounds are uniformly mildly diminished throughout. IMAGING: PET [facility] 07/17/2023: 20.6 mm hypermetabolic nodule right mid posterior, right lower lobe with SUV 14.0. There was also FDG G uptake noted in the right thoracic perihilar and generating an SUV of 10.3. The maximal axial diameter the metabolic, morphologic abnormality is 10.7 mm. Genetic testing: NGS/biomarkers/flatbed truck driver mutation analyses: [facility] 10/30/2023: -No flatbed truck driver mutations. -BRAF p(Bqi346 Arg) variant of potential clinical significance. Tier II. ASSESSMENT/PLAN: (C34.91) Non-small cell cancer of right lung (HCC) (primary encounter diagnosis) (N17.9) CRISTINO (acute kidney injury) (K74.3) Primary biliary cirrhosis (HCC) Assessment: -cT1c N1 (lymph node station 11 RS and 11 RI) M0 stage IIB NSCLC, adenocarcinoma of the RLL. 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 -History of PBC with evolving cirrhosis. -ypT2a pN1 M0 G3 with visceral pleural involvement. -Discussed pathology findings. -I reviewed the results of her renal biopsy and lab work from today. Serum creatinine has continued to improve. Imaging suggests she has developed worsening hepatic fibrosis/cirrhosis. Hepatocellular enzymes have normalized but alkaline phosphatase increased. For now we will plan to continue pembrolizumab for up to 13 adjuvant doses. Plan: - Will discuss RT with Dr. Schwartz--Protocol for KEYNOTE 671 advised RT for residual disease. - Continue ursodiol and follow up with Dr. Valdes as scheduled. - Monitor hepatocellular enzymes along with alkaline phosphatase and bilirubin every cycle. - Monitor serum creatinine and BUN every cycle. - Plan CTs in 3 months. Portions of this documentation were copied and pasted from my previous office visit note dated 04/11/2024 in order to provide a cohesive continuity of the history. The note has been reviewed and edited and updated as necessary. I spent a total of 40 minutes on the date of the service which included preparing to see the patient, [id number] patient care, completing clinical documentation, obtaining and/or reviewing separately obtained history, performing a medically appropriate examination, counseling and educating the patient/family/caregiver, and communicating results to the patient/family/caregiver. Alf Castle DO documented in this encounter [facility] 05-09-2024 Instructions Tessie Kaufman APRN.GALILEA - 05/09/2024 4:21 PM EDT - Resume Plaquenil 05/15/24 -Shower regularly to keep the incisions clean and inspect for signs of infection. -No water submersion/baths until all incisions are fully healed, typically this takes 6 weeks. -Walking is encouraged, this helps reduce swelling and lowers the chance of blood clots. - Continue to use your horn or blue pickle hourly while awake if possible to optimize lung expansion -No lifting/pushing/pulling greater than 5 lbs for 4 weeks after surgery. Do not perform behavior interventionist such as laundry and vacuuming. Do not perform yard work or gardening. -Okay for tylenol for pain control (do not exceed 4 g tylenol in a 24 hour period). No Ibuprofen -Okay for driving if you're not taking any narcotic pain medication for at least 2 days and you feel you can safely maneuver a motor vehicle. documented in this encounter [facility] 05-09-2024 Note [facility] 05-09-2024 History of Present illness Narrative Images from the original note were not included. [facility] - OUTPATIENT THORACIC SURGERY CLINIC NOTE PT NAME: [facility] NO: [id number] THORACIC SURGEON: Janett Feliciano M.D. DATE OF SERVICE: May 09, 2024 PRINCIPAL DX: [id number]/stage IIB adenocarcinoma of the right lower lobe of lung SURGICAL HX: 05/01/2024: Robotic Right Lower Lobectomy, Lymph node harvest as follows, Intercostal nerve blocks Surgical Pathology: FINAL DIAGNOSIS A. Lymph node, level 7, excision: - One lymph node, negative for malignancy (0/1). B. Lymph node, level 8, excision: - One lymph node, negative for malignancy (0/1). C. Lymph node, level 10R, excision: - One lymph node, negative for malignancy (0/1). D. Lymph node, level 12R, excision: - One lymph node, negative for malignancy (0/1). E. Lymph node, level 11R, excision: - One lymph node, negative for malignancy (0/1). F. Lymph node, level 11 anterior, excision: - Metastatic carcinoma in two of two lymph nodes (2/2). G. Lymph node, level 12R, excision: - Metastatic carcinoma in one of one lymph node (1/1). H. Lymph node, level 12R, excision: - One lymph node, negative for malignancy (0/1). I. Lymph node, level 9, excision: - Fibroadipose tissue, no tumor or lymph node tissue seen. J. Lung, right lower lobe, lobectomy: - Residual adenocarcinoma, solid predominant (see comment and synoptic report). - Eight lymph nodes, negative for malignancy (0/8). at 2343 EDT Diagnosis Comment J. Immunohistochemical stains performed on block J4 show that the tumor cells are negative for TTF-1 and p40. Visceral pleural invasion is confirmed by Movat special stains performed on block J4 and J6 (stain was also performed on block J7). Block for additional Biomarkers/Molecular studies J5 Synoptic Report LUNG 8th Edition - Protocol posted: 10/26/2021LUNG: RESECTION - All Specimens SPECIMEN Procedure Lobectomy Specimen Laterality Right TUMOR Tumor Focality Single focus Tumor Site Lower lobe of lung Tumor Size Total Tumor Size (size of entire tumor) Greatest Dimension (Centimeters): 2.5 cm Histologic Type Invasive solid adenocarcinoma Histologic Patterns Present Acinar: 5% Solid: 95% Histologic Grade G3, poorly differentiated Spread Through Air Spaces (LEAH) Not identified Visceral Pleura Invasion Present Direct Invasion of Adjacent Structures Not applicable (no adjacent structures present) Treatment Effect Present Percentage of Residual Viable Tumor 75 % Percentage of Necrosis 10 % Percentage of Stroma (includes fibrosis and inflammation) 15 % Lymphovascular Invasion Present MARGINS Margin Status for Invasive Carcinoma All margins negative for invasive carcinoma Closest Margin(s) to Invasive Carcinoma Bronchial Vascular Parenchymal Distance from Invasive Carcinoma to Closest Margin 3.3 cm Margin Status for Non-Invasive Tumor Not applicable REGIONAL LYMPH NODES Lymph Node(s) from Prior Procedures Not included Regional Lymph Node Status Tumor present in regional lymph node(s) Number of Lymph Nodes with Tumor 3 Shanice Site(s) with Tumor 11R: Interlobar 12R: Lobar Number of Lymph Nodes Examined 17 Shanice Site(s) Examined 8R: Para-esophageal (below flex) 9R: Pulmonary ligament 10R: Hilar 11R: Interlobar 12R: Lobar 7: Subcarinal PATHOLOGIC STAGE CLASSIFICATION (pTNM, AJCC 8th Edition) Reporting of pT, pN, and (when applicable) pM categories is based on information available to the pathologist at the time the report is issued. As per the AJCC (Chapter 1, 8th Ed.) it is the managing physician s responsibility to establish the final pathologic stage based upon all pertinent information, including but potentially not limited to this pathology report. TNM Descriptors y (post-treatment) pT Category pT2a pN Category pN1 ADDITIONAL FINDINGS Additional Findings None identified . REASON FOR VISIT: First post-operative visit HPI: Vickey Schwartz is a 63 year old female with lung nodule discovered on lung cancer screening study for surveillance of her interstitial pulmonary fibrosis.CT of the chest done in June 2023 demonstrated an interval new 13 x 19 mm right lower lobe subpleural nodule. PET scan done in July 2023 demonstrated the rght lung nodule measuring 20.6 mm with an SUV of 14.0. Perihilar lymph nodes measuring up to 11 mm which were stable in size with an SUV of 10.7. CT guided biopsy performed with pathology showing poorly differentiated non-small cell carcinoma favoring adenocarcinoma. She underwent bronchoscopy with EBUS. Samples from 11 RS demonstrated rare atypical epithelial cells and station 7 was negative for malignant cells. 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 Underwent induction of chemo immunotherapy and developed what was thought to be an inflammatory process in her kidneys resulting in renal insufficiency. On 05/01/24 she underwent Robotic Right Lower Lobectomy, Lymph node harvest as follows, Intercostal nerve blocks by Dr Feliciano. Discharged 05/03/24. PHYSICAL EXAM: VITAL SIGNS: BP (!) 114/44 (BP Position: Sitting) Pulse 84 Temp 36.8 C (98.3 F) (Oral) Resp 19 Ht 162.6 cm (5' 4) Wt 85.7 kg (189 lb) SpO2 95% BMI 32.44 kg/m Room air Incision location: Right Thoracoport sites and Right Old chest tube sites Incision Assessment: Well approximated and no drainage, swelling, erythema or warmth Drain/Tubes: N/A GENERAL: well appearing, alert, no acute distress, well-hydrated, well nourished HEENT: normocephalic, midline, anicteric sclera. LUNGS: clear to auscultation, diminished right base, no wheezing or rhonchi HEART: RRR without murmur ABDOMEN: Soft, non-tender, non distended. No masses EXTREMITIES: No clubbing, cyanosis. 2+ LE edema MUSCULOSKELETAL: Muscular strength intact. SKIN: turgor normal, no suspicious rashes or lesions NEURO: Gait normal. Sensation grossly intact. IMAGING/TESTS: CXR 05/09/2024 : PENDING INTERVAL HISTORY: Vickey Schwartz returns for first post op visit. She has been doing fairly well. She has had adequate pain management with the use of Tylenol and Oxycodone, taking both every 8 hours. She feels that she will be able to wean off Oxycodone.. She has SOB with exertion. has a productive cough. Using her IS hourly. She denies any fevers, chills. No c/o nausea or vomiting. She has been tolerating diet and has been moving her bowels regularly. Incisions are healing well and sutures are removed. LE edema noted. She will increase activiy and may wear compression stockings. Will return to see her nephrology team. We have discussed increasing aerobic activity daily, as well as maintaining weight restriction of 5-10 lbs for the first month after surgery. We have also discussed no driving while on narcotics. CXR shows small right effusion. 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 She will return to see her oncologist, Dr Castle, to discuss survivorship planning. She will get a CXR 05/21/24 at [facility] and have a virtual visit the next day. 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 Noted 2-3 + calf to pedal swelling. Pt states she has been elevating her feet at home. Requesting refill on heparin syringes and also pain mediation. DIRECTOR OF PURCHASING informed of above. Jessica Vega RN documented in this encounter [facility] 05-09-2024 Note [facility] 05-09-2024 History of Present illness Narrative Radiology Service Progress Note PATIENT NAME: Vickey Schwartz DATE OF SERVICE: May 09, 2024 TIME: 2:50 PM PATIENT IDENTITY VERIFICATION COMPLETED USING TWO (2) IDENTIFIERS: Name and Date of confirmed by patient verbally. FALL SCREENING: Has the patient had 2 falls in the last year or 1 fall with injury or currently using an Ambulatory Assistive Device (Walker, Cane, Wheelchair, Crutches, etc.)? No PATIENT GENDER DATA: Assigned female at . status: : No status: NO. PATIENT RELEVANT IMPLANT DATA REVIEWED: Not Applicable PATIENT PRESENTS WITH AN IMPLANTABLE OR ATTACHED PREPRESS SPECIALIST: No RADIOLOGY DEPARTMENT: General X-ray: Exam(s) Completed: Chest X-Ray PERIPHERAL IV DATA: Not applicable SIGNED BY: Filomena JASMINE(R) May 09, 2024 2:50 PM documented in this encounter [facility] 05-09-2024 Note [facility] 05-08-2024 Telephone encounter Note Fax received from [employer] this date needing recent surgical information from Dr. Feliciano. Forms faxed to Dr. Feliciano's office this date and will be sent to internal scanning for reference as well. No other needs identified. JESSICA Martinez [facility] 05-08-2024 Miscellaneous Notes Fax received from [employer] this date needing recent surgical information from Dr. Feliciano. Forms faxed to Dr. Feliciano's office this date and will be sent to internal scanning for reference as well. No other needs identified. JESSICA Martinez documented in this encounter [facility] 05-03-2024 Note [facility] 05-03-2024 Note [facility] 05-02-2024 Note [facility] 05-01-2024 Note [facility] 05-01-2024 Note [facility] 04-30-2024 Telephone encounter Note STD paperwork (indicated 05/01/2024 surgery date) has been completed by nurse, returned to university administrative assistant, and handed off to physician for signature. Felton Cline RN [facility] Work Phone: 04-30-2024 Miscellaneous Notes STD paperwork (indicated 05/01/2024 surgery date) has been completed by nurse, returned to university administrative assistant, and handed off to physician for signature. Felton Cline RN Received Short Term Disability paperwork for patient. Paperwork given to Thoracic NPM for completion. After completion, paperwork is to be faxed to [phone] Attn: unum Signed PHI release attached No Dates: 10/04/23 Consult - Referring provider: Dr. Ny Ross Diagnosis: RLL Lung Cancer 10/30/23 Follow-up 03/18/24 Pre-Op 03/31/24 Surgery: ROBOTIC THORACOSCOPY; LOBECTOMY, TOTAL OR SEGMENTAL [] ICD-10: C34.31 CPT: 40889 TBD Discharge TBD Post-Op Follow-up - Primary diagnosis: ICD-10: TBD Follow-up cristel Minor asst documented in this encounter [facility] 04-28-2024 History of Present illness Narrative Radiology Service Progress Note PATIENT NAME: Vickey Schwartz DATE OF SERVICE: April 28, 2024 TIME: 1:14 PM PATIENT IDENTITY VERIFICATION COMPLETED USING TWO (2) IDENTIFIERS: Name and Date of confirmed by patient verbally. FALL SCREENING: Has the patient had 2 falls in the last year or 1 fall with injury or currently using an Ambulatory Assistive Device (Walker, Cane, Wheelchair, Crutches, etc.)? No PATIENT GENDER DATA: Assigned female at . status: : No status: NO. PATIENT RELEVANT IMPLANT DATA REVIEWED: Not Applicable PATIENT PRESENTS WITH AN IMPLANTABLE OR ATTACHED PREPRESS SPECIALIST: No RADIOLOGY DEPARTMENT: Ultrasound PERIPHERAL IV DATA: Not applicable SIGNED BY: Leanne Chadwick RDMS RVT April 28, 2024 1:14 PM documented in this encounter [facility] 04-28-2024 Note [facility] 04-28-2024 Telephone encounter Note Patient has been reschedule to 05/21/24 and lab work has been added [facility] 04-28-2024 Miscellaneous Notes Patient has been reschedule to 05/21/24 and lab work has been added [facility] [place] [facility] About 2-3 weeks after surgery. CBC/CMP/Mg. Alf Castle DO Vickey is scheduled to see you on 05/03/23 and is having surgery on 05/01/24. She was wondering when appt is canceled when sheould she schedule to see you again. Please advise documented in this encounter [facility] 04-28-2024 Telephone encounter Note About 2-3 weeks after surgery. CBC/CMP/Mg. Alf Castle DO [facility] 04-28-2024 Telephone encounter Note Vickey is scheduled to see you on 05/03/23 and is having surgery on 05/01/24. She was wondering when appt is canceled when sheould she schedule to see you again. Please advise [facility] 04-27-2024 Telephone encounter Note I called and let Vickey know the below information and she stated understanding. I did schedule her for both the ultrasound and IV MG for tomorrow 04/28/24 per her request, she confirmed date, times and locations [facility] 04-27-2024 Miscellaneous Notes I called and let Vickey know the below information and she stated understanding. I did schedule her for both the ultrasound and IV MG for tomorrow 04/28/24 per her request, she confirmed date, times and locations [facility] [place] Kidney function stable. Some increase in liver enzymes. Needs IV Mg Sunday or Sunday. US liver as soon as able--scheduled for surgery 05/01. Alf Castle DO documented in this encounter [facility] 04-26-2024 Telephone encounter Note Kidney function stable. Some increase in liver enzymes. Needs IV Mg Sunday or Sunday. US liver as soon as able--scheduled for surgery 05/01. Alf Castle DO [facility] 04-22-2024 Telephone encounter Note Record ID: [id number] Patient name: Vickey Schwartz Date: April 22, 2024 - 09:02 Administered by: SOHA Protocol: -> Great! Now we are in a secure chat environment. Protecting your health information is important to us. Ok, let's get started. Please verify your name and date of . Please click on the button with your first name. -> Vickey Got it. On to the next question... Select the button with your last name. -> Efren Got it, thank you. Please enter your date of in MM/DD/YYYY format:(e.g., [birth year]/1969 for Feb 23, 1968) -> 1960 Thank you for verifying your information. I'd like to ask you a few questions about how your recovery is going. Since leaving the hospital, do you have any new or worsening symptoms? -> No I'm glad to hear that. We encourage a follow-up appointment with a physician within two weeks of being discharged from the hospital to oversee your recovery. It seems you have a follow up appointment scheduled, are you able to attend? -> Yes Thank you for your time and allowing us to care for you. We will check in on you over the next four weeks to ensure you continue to recover and support your needs. In the meantime, please reach out to your PCP for any questions or concerns.Thank you for choosing [facility]! -> Thank you for your time and allowing us to care for you. We will check in on you over the next four weeks to ensure you continue to recover and support your needs. In the meantime, please reach out to your PCP for any questions or concerns.Thank you for choosing [facility]! -> Thank you for your time and allowing us to care for you. We will check in on you over the next four weeks to ensure you continue to recover and support your needs. In the meantime, please reach out to your PCP for any questions or concerns.Thank you for choosing [facility]! -> Thank you for your time and allowing us to care for you. We will check in on you over the next four weeks to ensure you continue to recover and support your needs. In the meantime, please reach out to your PCP for any questions or concerns.Thank you for choosing [facility]! -> Thank you for your time and allowing us to care for you. We will check in on you over the next four weeks to ensure you continue to recover and support your needs. In the meantime, please reach out to your PCP for any questions or concerns.Thank you for choosing [facility]! -> Thank you for your time and allowing us to care for you. We will check in on you over the next four weeks to ensure you continue to recover and support your needs. In the meantime, please reach out to your PCP for any questions or concerns.Thank you for choosing [facility]! -> Thank you for your time and allowing us to care for you. We will check in on you over the next four weeks to ensure you continue to recover and support your needs. In the meantime, please reach out to your PCP for any questions or concerns.Thank you for choosing [facility]! -> Great! Now we are in a secure chat environment. Protecting your health information is important to us. Ok, let's get started. Please verify your name and date of . Please click on the button with your first name. -> Vickey Got it. On to the next question... Select the button with your last name. -> Efren Got it, thank you. Please enter your date of in MM/DD/YYYY format:(e.g., 02/23/1969 for Feb 23, 1969) -> 1960 Thank you for verifying your information. I'd like to ask you a few questions about how your recovery is going. Have you experienced any new or worsening symptoms since returning home? -> No I'm glad to hear that. Have you had a hospital follow-up appointment yet since your discharge? -> Yes Thank you for your time and allowing us to care for you. We will check in on you over the next four weeks to ensure you continue to recover and support your needs. In the meantime, please reach out to your PCP for any questions or concerns.Thank you for choosing [facility]! -> Great! Now we are in a secure chat environment. Protecting your health information is important to us. Ok, let's get started. Please verify your name and date of . Please click on the button with your first name. -> Vickey Got it. On to the next question... Select the button with your last name. -> Efren Got it, thank you. Please enter your date of in MM/DD/YYYY format:(e.g., 02/23/1969 for Feb 23, 1969) -> 1960 Thank you for verifying your information. I'd like to ask you a few questions about how your recovery is going. Have there been any new or worsening symptoms since your last response? -> No I'm glad to hear that. Thank you for your time and for allowing us to care for you. Please be sure to reach out to your provider for any further symptoms or needs. Please rate your satisfaction with the care and support you have received from us since you have been home: (scale 1-5; 1 worst and 5 best) -> 5 Please tell me what you liked best about your experience: -> Great! Now we are in a secure chat environment. Protecting your health information is important to us. Ok, let's get started. Please verify your name and date of . Please click on the button with your first name. -> Vickey Got it. On to the next question... Select the button with your last name. -> Efren Got it, thank you. Please enter your date of in MM/DD/YYYY format:(e.g., 02/23/1969 for Feb 23, 1969) -> 1960 Thank you for verifying your information. I'd like to ask you a few questions about how your recovery is going. Have there been any new or worsening symptoms since your last response? -> No I'm glad to hear that. Thank you for your time and for allowing us to care for you. Please be sure to reach out to your provider for any further symptoms or needs. Please rate your satisfaction with the care and support you have received from us since you have been home: (scale 1-5; 1 worst and 5 best) -> 5 Please tell me what you liked best about your experience: -> Good people and staff Please tell me what you liked least about your experience: -> Don't have anything to dislike [facility] 04-22-2024 Miscellaneous Notes Record ID: [id number] Patient name: Vickey Schwartz Date: April 22, 2024 - 09:02 Administered by: [facility] Protocol: -> Great! Now we are in a secure chat environment. Protecting your health information is important to us. Ok, let's get started. Please verify your name and date of . Please click on the button with your first name. -> Vickey Got it. On to the next question... Select the button with your last name. -> Efren Got it, thank you. Please enter your date of in MM/DD/YYYY format:(e.g., 02/23/1969 for Feb 23, 1969) -> 1960 Thank you for verifying your information. I'd like to ask you a few questions about how your recovery is going. Since leaving the hospital, do you have any new or worsening symptoms? -> No I'm glad to hear that. We encourage a follow-up appointment with a physician within two weeks of being discharged from the hospital to oversee your recovery. It seems you have a follow up appointment scheduled, are you able to attend? -> Yes Thank you for your time and allowing us to care for you. We will check in on you over the next four weeks to ensure you continue to recover and support your needs. In the meantime, please reach out to your PCP for any questions or concerns.Thank you for choosing [facility]! -> Thank you for your time and allowing us to care for you. We will check in on you over the next four weeks to ensure you continue to recover and support your needs. In the meantime, please reach out to your PCP for any questions or concerns.Thank you for choosing [facility]! -> Thank you for your time and allowing us to care for you. We will check in on you over the next four weeks to ensure you continue to recover and support your needs. In the meantime, please reach out to your PCP for any questions or concerns.Thank you for choosing [facility]! -> Thank you for your time and allowing us to care for you. We will check in on you over the next four weeks to ensure you continue to recover and support your needs. In the meantime, please reach out to your PCP for any questions or concerns.Thank you for choosing [facility]! -> Thank you for your time and allowing us to care for you. We will check in on you over the next four weeks to ensure you continue to recover and support your needs. In the meantime, please reach out to your PCP for any questions or concerns.Thank you for choosing [facility]! -> Thank you for your time and allowing us to care for you. We will check in on you over the next four weeks to ensure you continue to recover and support your needs. In the meantime, please reach out to your PCP for any questions or concerns.Thank you for choosing [facility]! -> Thank you for your time and allowing us to care for you. We will check in on you over the next four weeks to ensure you continue to recover and support your needs. In the meantime, please reach out to your PCP for any questions or concerns.Thank you for choosing [facility]! -> Great! Now we are in a secure chat environment. Protecting your health information is important to us. Ok, let's get started. Please verify your name and date of . Please click on the button with your first name. -> Vickey Got it. On to the next question... Select the button with your last name. -> Efren Got it, thank you. Please enter your date of in MM/DD/YYYY format:(e.g., 02/23/1969 for Feb 23, 1969) -> 1960 Thank you for verifying your information. I'd like to ask you a few questions about how your recovery is going. Have you experienced any new or worsening symptoms since returning home? -> No I'm glad to hear that. Have you had a hospital follow-up appointment yet since your discharge? -> Yes Thank you for your time and allowing us to care for you. We will check in on you over the next four weeks to ensure you continue to recover and support your needs. In the meantime, please reach out to your PCP for any questions or concerns.Thank you for choosing [facility]! -> Great! Now we are in a secure chat environment. Protecting your health information is important to us. Ok, let's get started. Please verify your name and date of . Please click on the button with your first name. -> Vickey Got it. On to the next question... Select the button with your last name. -> Efren Got it, thank you. Please enter your date of in MM/DD/YYYY format:(e.g., 02/23/1969 for Feb 23, 1969) -> 1960 Thank you for verifying your information. I'd like to ask you a few questions about how your recovery is going. Have there been any new or worsening symptoms since your last response? -> No I'm glad to hear that. Thank you for your time and for allowing us to care for you. Please be sure to reach out to your provider for any further symptoms or needs. Please rate your satisfaction with the care and support you have received from us since you have been home: (scale 1-5; 1 worst and 5 best) -> 5 Please tell me what you liked best about your experience: -> Great! Now we are in a secure chat environment. Protecting your health information is important to us. Ok, let's get started. Please verify your name and date of . Please click on the button with your first name. -> Vickey Got it. On to the next question... Select the button with your last name. -> Efren Got it, thank you. Please enter your date of in MM/DD/YYYY format:(e.g., 02/23/1969 for Feb 23, 1969) -> 1960 Thank you for verifying your information. I'd like to ask you a few questions about how your recovery is going. Have there been any new or worsening symptoms since your last response? -> No I'm glad to hear that. Thank you for your time and for allowing us to care for you. Please be sure to reach out to your provider for any further symptoms or needs. Please rate your satisfaction with the care and support you have received from us since you have been home: (scale 1-5; 1 worst and 5 best) -> 5 Please tell me what you liked best about your experience: -> Good people and staff Please tell me what you liked least about your experience: -> Don't have anything to dislike documented in this encounter [facility] 04-22-2024 Telephone encounter Note This has been scheduled. Analisa Levine [facility] 04-22-2024 Miscellaneous Notes This has been scheduled. Analisa Levine PSS- please schedule patient for a lab appointment for a BMP on 04/25/2024 @ 9:00. Patient is aware of appointment date and time. Lisa Ritchie LPN Thank you. Then just a BMP this week. Alf Castle DO Patient received and started Sensipar on 04/18/2024. Lisa Ritchie LPN Left message for patient to contact office. Lisa Ritchie LPN If she has not yet received and started Sensipar, then she should come in tomorrow for a BMP/Zometa infusion. Alf Castle DO Surgery rescheduled to 05/01/2024. Lisa Ritchie LPN Pt notified and voices understanding. Pt states she was under the impression that she could not have surgery until she was off the prednisone and she states she is still on the schedule for 04/17. Please advise. DAREK Lemon LPN Let her know she can decrease the prednisone to 5 mg (one half of the 10 mg tablet) daily for 5 days then stop taking it. Alf Castle DO documented in this encounter [facility] 04-22-2024 Telephone encounter Note PSS- please schedule patient for a lab appointment for a BMP on 04/25/2024 @ 9:00. Patient is aware of appointment date and time. Lisa Ritchie LPN [facility] 04-22-2024 Telephone encounter Note Thank you. Then just a BMP this week. Alf Castle DO [facility] 04-22-2024 Telephone encounter Note Patient received and started Sensipar on 04/18/2024. Lisa Ritchie LPN [facility] 04-22-2024 Telephone encounter Note Left message for patient to contact office. Lisa Ritchie LPN [facility] 04-22-2024 Telephone encounter Note If she has not yet received and started Sensipar, then she should come in tomorrow for a BMP/Zometa infusion. Alf Castle DO [facility] 04-18-2024 Telephone encounter Note Surgery rescheduled to 05/01/2024. Lisa Ritchie LPN [facility] 04-16-2024 Telephone encounter Note ANN MARIE completed and approved for Sensipar for 1 year. Insurance is dictating that the medication be sent to [facility]. I pended the Rx in a refill encounter for Dr. Castle. I did contact the patient and inform her she may be hearing from [facility]. Patient to contact office if medication is unaffordable. Lisa Ritchie LPN [facility] 04-16-2024 Miscellaneous Notes ANN MARIE completed and approved for Sensipar for 1 year. Insurance is dictating that the medication be sent to [facility]. I pended the Rx in a refill encounter for Dr. Castle. I did contact the patient and inform her she may be hearing from [facility]. Patient to contact office if medication is unaffordable. Lisa Ritchie LPN Can let her know that today's lab work shows her kidney function has improved somewhat compared to previous measurements. Calcium may be starting to increase again and this may be a function of her parathyroid glands being overactive. She was not able to fill the prescription for Sensipar when she was discharged from [place] because it was cost prohibitive. I sent the prescription to the outpatient pharmacy at [facility]. My understanding is they may be able to get it to her at significantly reduced cost since she is a cancer patient under our care. Alf Castle DO documented in this encounter [facility] 04-16-2024 Telephone encounter Note Prior authorization approved for Sensipar. Insurance requires this be sent to their specialty pharmacy. I did speak with the pharmacist at [facility] and they are not familiar with any grants. Please send to [facility]. Lisa Ritchie LPN [facility] 04-16-2024 Miscellaneous Notes Prior authorization approved for Sensipar. Insurance requires this be sent to their specialty pharmacy. I did speak with the pharmacist at [facility] and they are not familiar with any grants. Please send to [facility]. Lisa Ritchie LPN documented in this encounter [facility] 04-15-2024 Telephone encounter Note Can let her know that today's lab work shows her kidney function has improved somewhat compared to previous measurements. Calcium may be starting to increase again and this may be a function of her parathyroid glands being overactive. She was not able to fill the prescription for Sensipar when she was discharged from [place] because it was cost prohibitive. I sent the prescription to the outpatient pharmacy at [facility]. My understanding is they may be able to get it to her at significantly reduced cost since she is a cancer patient under our care. Alf Castle DO [facility] 04-15-2024 History of Present illness Narrative Radiology Service Progress Note PATIENT NAME: Vickey Schwartz DATE OF SERVICE: April 15, 2024 TIME: 3:25 PM PATIENT IDENTITY VERIFICATION COMPLETED USING TWO (2) IDENTIFIERS: Name and Date of confirmed by patient verbally. FALL SCREENING: Has the patient had 2 falls in the last year or 1 fall with injury or currently using an Ambulatory Assistive Device (Walker, Cane, Wheelchair, Crutches, etc.)? No PATIENT GENDER DATA: Assigned female at . status: : No status: NO. PATIENT RELEVANT IMPLANT DATA REVIEWED: Yes PATIENT PRESENTS WITH AN IMPLANTABLE OR ATTACHED PREPRESS SPECIALIST: No RADIOLOGY DEPARTMENT: CT; Exam(s) Completed: Chest PERIPHERAL IV DATA: Not applicable SIGNED BY: RT Lorie(R) April 15, 2024 3:25 PM documented in this encounter [facility] 04-15-2024 Note [facility] 04-15-2024 Note [facility] 04-14-2024 Telephone encounter Note Record ID: [id number] Patient name: Vickey Schwartz Date: April 14, 2024 - 08:14 Administered by: [facility] Protocol: -> Great! Now we are in a secure chat environment. Protecting your health information is important to us. Ok, let's get started. Please verify your name and date of . Please click on the button with your first name. -> Vickey Got it. On to the next question... Select the button with your last name. -> Efren Got it, thank you. Please enter your date of in MM/DD/YYYY format:(e.g., 02/23/1969 for Feb 23, 1969) -> 1960 Thank you for verifying your information. I'd like to ask you a few questions about how your recovery is going. Since leaving the hospital, do you have any new or worsening symptoms? -> No I'm glad to hear that. We encourage a follow-up appointment with a physician within two weeks of being discharged from the hospital to oversee your recovery. It seems you have a follow up appointment scheduled, are you able to attend? -> Yes Thank you for your time and allowing us to care for you. We will check in on you over the next four weeks to ensure you continue to recover and support your needs. In the meantime, please reach out to your PCP for any questions or concerns.Thank you for choosing [facility]! -> Thank you for your time and allowing us to care for you. We will check in on you over the next four weeks to ensure you continue to recover and support your needs. In the meantime, please reach out to your PCP for any questions or concerns.Thank you for choosing [facility]! -> Thank you for your time and allowing us to care for you. We will check in on you over the next four weeks to ensure you continue to recover and support your needs. In the meantime, please reach out to your PCP for any questions or concerns.Thank you for choosing [facility]! -> Thank you for your time and allowing us to care for you. We will check in on you over the next four weeks to ensure you continue to recover and support your needs. In the meantime, please reach out to your PCP for any questions or concerns.Thank you for choosing [facility]! -> Thank you for your time and allowing us to care for you. We will check in on you over the next four weeks to ensure you continue to recover and support your needs. In the meantime, please reach out to your PCP for any questions or concerns.Thank you for choosing [facility]! -> Thank you for your time and allowing us to care for you. We will check in on you over the next four weeks to ensure you continue to recover and support your needs. In the meantime, please reach out to your PCP for any questions or concerns.Thank you for choosing [facility]! -> Thank you for your time and allowing us to care for you. We will check in on you over the next four weeks to ensure you continue to recover and support your needs. In the meantime, please reach out to your PCP for any questions or concerns.Thank you for choosing [facility]! -> Great! Now we are in a secure chat environment. Protecting your health information is important to us. Ok, let's get started. Please verify your name and date of . Please click on the button with your first name. -> Vickey Got it. On to the next question... Select the button with your last name. -> Efren Got it, thank you. Please enter your date of in MM/DD/YYYY format:(e.g., 02/23/1969 for Feb 23, 1969) -> 1960 Thank you for verifying your information. I'd like to ask you a few questions about how your recovery is going. Have you experienced any new or worsening symptoms since returning home? -> No I'm glad to hear that. Have you had a hospital follow-up appointment yet since your discharge? -> Yes [facility] 04-14-2024 Miscellaneous Notes Record ID: [id number] Patient name: Vickey Schwartz Date: April 14, 2024 - 08:14 Administered by: [facility] Protocol: -> Great! Now we are in a secure chat environment. Protecting your health information is important to us. Ok, let's get started. Please verify your name and date of . Please click on the button with your first name. -> Vickey Got it. On to the next question... Select the button with your last name. -> Efren Got it, thank you. Please enter your date of in MM/DD/YYYY format:(e.g., 02/23/1969 for Feb 23, 1969) -> 1960 Thank you for verifying your information. I'd like to ask you a few questions about how your recovery is going. Since leaving the hospital, do you have any new or worsening symptoms? -> No I'm glad to hear that. We encourage a follow-up appointment with a physician within two weeks of being discharged from the hospital to oversee your recovery. It seems you have a follow up appointment scheduled, are you able to attend? -> Yes Thank you for your time and allowing us to care for you. We will check in on you over the next four weeks to ensure you continue to recover and support your needs. In the meantime, please reach out to your PCP for any questions or concerns.Thank you for choosing [facility]! -> Thank you for your time and allowing us to care for you. We will check in on you over the next four weeks to ensure you continue to recover and support your needs. In the meantime, please reach out to your PCP for any questions or concerns.Thank you for choosing [facility]! -> Thank you for your time and allowing us to care for you. We will check in on you over the next four weeks to ensure you continue to recover and support your needs. In the meantime, please reach out to your PCP for any questions or concerns.Thank you for choosing [facility]! -> Thank you for your time and allowing us to care for you. We will check in on you over the next four weeks to ensure you continue to recover and support your needs. In the meantime, please reach out to your PCP for any questions or concerns.Thank you for choosing [facility]! -> Thank you for your time and allowing us to care for you. We will check in on you over the next four weeks to ensure you continue to recover and support your needs. In the meantime, please reach out to your PCP for any questions or concerns.Thank you for choosing [facility]! -> Thank you for your time and allowing us to care for you. We will check in on you over the next four weeks to ensure you continue to recover and support your needs. In the meantime, please reach out to your PCP for any questions or concerns.Thank you for choosing [facility]! -> Thank you for your time and allowing us to care for you. We will check in on you over the next four weeks to ensure you continue to recover and support your needs. In the meantime, please reach out to your PCP for any questions or concerns.Thank you for choosing [facility]! -> Great! Now we are in a secure chat environment. Protecting your health information is important to us. Ok, let's get started. Please verify your name and date of . Please click on the button with your first name. -> Vickey Got it. On to the next question... Select the button with your last name. -> Efren Got it, thank you. Please enter your date of in MM/DD/YYYY format:(e.g., 02/23/1969 for Feb 23, 1969) -> 1960 Thank you for verifying your information. I'd like to ask you a few questions about how your recovery is going. Have you experienced any new or worsening symptoms since returning home? -> No I'm glad to hear that. Have you had a hospital follow-up appointment yet since your discharge? -> Yes documented in this encounter [facility] 04-14-2024 Telephone encounter Note Pt notified and voices understanding. Pt states she was under the impression that she could not have surgery until she was off the prednisone and she states she is still on the schedule for 04/17. Please advise. DAREK Lemon LPN [facility] 04-11-2024 Telephone encounter Note Let her know she can decrease the prednisone to 5 mg (one half of the 10 mg tablet) daily for 5 days then stop taking it. Alf Castle DO [facility] 04-11-2024 Note [facility] 04-11-2024 History of Present illness Narrative Oncologic problem(s): 1) Stage II NSCLC, adenocarcinoma. HPI: The patient is a 63-year-old female with a past medical history as outlined below. The patient is a former smoker of approximately 7-pack-year, quit in 2016. She is on Plaquenil for history of lupus. She has primary biliary cholangitis. She had a nodule discovered on lung cancer screening study for surveillance of her interstitial pulmonary fibrosis. A CT of the chest done in June 2023 demonstrated an interval new 13 x 19 mm right lower lobe subpleural nodule. PET scan done in July showed the nodule to measure 20.6 mm with an SUV of 14.0. Perihilar lymph nodes measuring up to 11 mm which were stable in size with an SUV of 10.7. She underwent a CT-guided biopsy of the right lower lobe nodule. Pathology demonstrated poorly differentiated non-small cell carcinoma favoring adenocarcinoma. She underwent bronchoscopy with EBUS. Samples from 11 RS demonstrated rare atypical epithelial cells and station 7 was negative for malignant cells. 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 CT has been stable and pulmonary function tests do not show restriction or low diffusing capacity. Patient prefers pulmonary follow-up closer to home. Patient is asymptomatic so antifibrotic therapy has been on hold. 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 She denies significant dyspnea except for with extreme activity. Chronic cough or sputum production. No wheezing. She used to smoke a pack a week but quit in 2015 when she had note of a small nodule on chest CT. Today she states that she continues to do well. Her Plaquenil controls her cutaneous symptoms. She has no arthralgias, erythema or joint effusions, no skin lesions, no edema. She does have photosensitivity and limits her sun exposure. She has excessive daytime sleepiness, known snoring and witnessed apneas. HSAT from 2020 showed possible mild obstructive sleep at but she never followed through with formal in lab sleep study. She states that she can fall asleep easily when sitting watching TV or working on her computer. She is a loud snorer, in fact her brother has been bothering her to be reevaluated for apnea. Per initial consultation: She is working on a daily basis. 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 Gets short of breath with trying to run or walking steeper slopes. Recent 6-minute walk test results were very good. Recently had testing for sleep apnea which suggested sleep apnea. It was a home sleep study test. Occasional dry cough but not frequent throughout the day. 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 Appetite has been normal. Presents for ongoing oncologic management. Interim history: Repeat CT chest 10/23/2023: Soft tissue mass along the posterior superior segment of the right lower lobe is increased in size, currently measuring 26 x 21 x 28 mm in transverse, AP and craniocaudal dimensions respectively, while previously measuring 20 x 16 x 27 mm in these same orientations. Numerous additional small lung nodules are unchanged relative to previous studies including 12/05/2021 Pleural space: No pleural effusion. No pleural thickening. Lower neck, lymph nodes, and mediastinum: There is new right hilar lymphadenopathy, measuring up to 13 mm in short axis on image 121. Additional enlarged right hilar nodes are present. 8 mm right paratracheal node. No axillary lymphadenopathy. Bronchoscopy 11/22/2023: Pathology: A - Lymph Node, Transbronchial, Aspirate/Fine Needle Aspirate - 4R Negative for malignant cells. Benign lymphoid sample. B - Lymph Node, Transbronchial, Aspirate/Fine Needle Aspirate - 11RS Positive for malignant cells. Non-small cell carcinoma. C - Lymph Node, Transbronchial, Aspirate/Fine Needle Aspirate - 11RI Positive for malignant cells. Non-small cell carcinoma. Current therapy: 1) Neoadjuvant pemetrexed, cisplatin and pembrolizumab. Completed 4 cycles. Cisplatin omitted cycles 3 and 4 due to CRISTINO. Presents for ongoing oncologic management. Interim history: Was admitted to [facility] for daily IV methylprednisolone. Underwent renal biopsy. Was given a dose of Zometa for hypercalcemia. Discharged on prednisone 30 mg daily. Also was given Rx for Cinacalcet but this was cost prohibitive and she did not fill it. No complaints today. Appetite has been normal. Bowels have been working normally. No gross hematuria. No dyspnea with exertion. PAST MEDICAL HISTORY Diagnosis Date Hemorrhage of rectum and anus HYPERLIPIDEMIA MIXED 07/10/2005 Lung nodule 06/13/2016 June 25, 2017 subcentimeter lung nodules and interstitial lung disease also stable from 2017: check CT in 1 year. Primary biliary cholangitis (HCC) Snoring Systemic lupus erythematosus (HCC) PAST SURGICAL HISTORY Procedure Laterality Date BRONCHOSCOPY 07/31/2023 COLONOSCOPY FLX DX W/COLLJ SPEC WHEN PFRMD 06/29/2016 HAD VASOVAGAL RESPONSE DURING PROCEDURE SYST BP 60'S HR 40'S-GIVEN ATROPINE CORRJ HLX VLGS BNCTY SESMDC DSTL METAR OSTEOT 1985 DIAGNOSTIC ARTHROSCOPY SHOULDER +- SYNOVIAL BX Left 04/03/2018 Left shoulder arthroscopic subacromial decompression, rotator cuff repair, and biceps tenotomy EGD 12/25/2022 repeat 2 years ESOPHAGOGASTRODUODENOSCOPY TRANSORAL DIAGNOSTIC 11/11/2018 EGD ESOPHAGOGASTRODUODENOSCOPY TRANSORAL DIAGNOSTIC 11/22/2020 repeat in 2 years FOOT SURGERY HX 1986 HYSTEROSCOPY 06/21/2017 D&C LUNG BIOPSY HX 08/24/2023 SIGMOIDOSCOPY ?2000 SKIN BIOPSY HX TONSILLECTOMY HX predniSONE (DELTASONE) 10 mg tablet Take 3 tablets by mouth once daily for 7 days, THEN 2 tablets once daily for 7 days, THEN 1 tablet once daily for 7 days. levothyroxine (SYNTHROID) 50 mcg tablet Take 1 tablet by mouth daily at 6 am. pkcyckaetaDRMCR-rlbkxi-fisuzrjfe (BMX 1:1:1) 1:1:1 liqd Take 5 mL by mouth every 4 hours as needed. ursodiol (ACTIGALL) 300 mg capsule Take 1 capsule by mouth three times a day. prochlorperazine (COMPAZINE) 10 mg tablet Take 1 tablet by mouth every 6 hours as needed. For chemotherapy induced nausea and vomiting. folic acid 1 mg tablet Take 1 tablet by mouth once daily. clotrimazole-betamethasone (LOTRISONE) lotion Betamethasone / Clotrimazole Clotrimazole/Betamethasone Dip [Clotrimazole-Betamethasone Lot] 30 ML TP NEEDED PRN For SKIN June 14, 2017 Active 06-14-2017 [facility] ([id number]) tacrolimus (PROTOPIC) 0.1 % ointment Apply twice daily to affected areas on face Clobetasol Propionate (TEMOVATE) 0.05 % external solution Apply to affected areas on the scalp twice a day. Dispense 100ml as 30 day supply. ALLERGIES Allergen Reactions Albuterol Other: See Comments kyra Morrison Adhesive Tape (Sammi* Itching Itching and redness FAMILY HISTORY Problem Relation Age of Onset Diabetes Mother Hypertension Mother Stroke Mother other (? SFTP) Mother Heart Father age 60's other (PBC) Father None Brother Obstructive Sleep Apnea Brother Colon Cancer Paternal Grandmother Colon Cancer Paternal Grandfather Social History Tobacco Use Smoking status: Former Current packs/day: 0.00 Average packs/day: 0.2 packs/day for 30.0 years (4.5 ttl pk-yrs) Types: Cigarettes Start date: 1985 Quit date: 2016 Years since quittin.1 Smokeless tobacco: Never Tobacco comments: Pt smoked one pack a week x 30 years, quit 2016 Vaping Use Vaping status: Never Used Substance Use Topics Alcohol use: No Drug use: No REVIEW OF SYSTEMS: Constitutional: No episodes of fever and night sweats. Not significantly fatigued. Neuro: No GUTIERREZ, vertigo, dizziness and imbalance. No symptoms of neuropathy. HEENT: No recent change in voice, vision or hearing. Resp: See above. CVS: Denies exertional chest pain, PND, orthopnea and LE edema. GI: Denies dysphagia and odynophagia. Denies reflux, n/v, change in bowel habits and abdominal pain. : Denies dysuria or gross hematuria. No symptoms of bladder outlet obstruction. Endo: Denies hot flashes. Denies polyuria and polydipsia. Denies heat and cold intolerance. Musculoskeletal: Denies bone, back, joint and muscular pain. Derm: See above. Heme: Denies unusual bleeding and unexplained bruising. Psych: Normal mood. PHYSICAL EXAM: Vitals: Blood pressure 119/82, pulse 78, temperature 36.8 C (98.2 F), temperature source Temporal, weight 86.2 kg (190 lb), SpO2 100%. Well-appearing and in no acute distress. EYES: Sclerae are anicteric bilaterally. Respiratory breath sounds are uniformly mildly diminished throughout. IMAGING: [facility] 07/17/2023: 20.6 mm hypermetabolic nodule right mid posterior, right lower lobe with SUV 14.0. There was also FDG G uptake noted in the right thoracic perihilar and generating an SUV of 10.3. The maximal axial diameter the metabolic, morphologic abnormality is 10.7 mm. Genetic testing: NGS/biomarkers/flatbed truck driver mutation analyses: [employer] 10/30/2023: -No flatbed truck driver mutations. -BRAF p([id number]) variant of potential clinical significance. Tier II. ASSESSMENT/PLAN: (C34.91) Non-small cell cancer of right lung (HCC) (primary encounter diagnosis) (N17.9) CRISTINO (acute kidney injury) (HCC) (R79.89) LFT elevation Assessment: -T1c N1 (lymph node station 11 RS and 11 RI) M0 stage IIB NSCLC, adenocarcinoma of the RLL. 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 -Stage IIB non-small cell lung cancer, adenocarcinoma. -Discussed with rheumatology. Interstitial lung disease was very mild. [place] to be a candidate for immunotherapy. -Tolerated chemotherapy very well overall. -CT revealed near 50% decrease in size of primary tumor. -Discussed with nephrology. 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 Patient does not need Cinacalcet. Several days ago she was advised to decrease prednisone to 10 mg daily. -Serum creatinine remained stable. AST and ALT mixed response. These may be due to recent higher dose steroid use and fatty liver infiltrate. Plan: -Hold pembrolizumab for now. -Continue prednisone 10 mg daily. -Repeat CT chest. -Recheck chemistry panel in a week. -I will communicate with thoracic surgery about proceeding with surgery as soon as they are able to schedule. Portions of this documentation were copied and pasted from my previous office visit note dated 03/21/2024 in order to provide a cohesive continuity of the history. The note has been reviewed and edited and updated as necessary. Alf Castle DO documented in this encounter [facility] 04-10-2024 Instructions Sidra Hurley APRN.GALILEA - 04/10/2024 10:11 AM EST 1) Will check kidneys and magnesium tomorrow 2) Will check TSH- in 6-8 weeks 3) Consider saline nasal spray 4) follow up in 4 months documented in this encounter [facility] 04-10-2024 Note [facility] 04-10-2024 History of Present illness Narrative This is a 63 year old female who presents today with: No chief complaint on file. HISTORY OF PRESENT ILLNESS: Vickey Schwartz is a 63 year old female. No chief complaint on file. Here for hospital follow up Getting chemo treatmen, had 4 treatments- kidneys decreased. Magnesium went low. Went into hospital for CRISTINO. Having surgery- lung resection 04/17 Eating and drinking ok. Hadn't been with chemo. Thyroid went haywire, too- TSH 90 Sleeping ok Eating ok Drinking ok Bowels and bladder moving ok No pain Today, left ear hurting PAST MEDICAL HISTORY: PAST MEDICAL HISTORY Diagnosis Date Hemorrhage of rectum and anus HYPERLIPIDEMIA MIXED 07/10/2005 Lung nodule 06/13/2016 June 25, 2017 subcentimeter lung nodules and interstitial lung disease also stable from 2017: check CT in 1 year. Primary biliary cholangitis (HCC) Snoring Systemic lupus erythematosus (HCC) PAST SURGICAL HISTORY Procedure Laterality Date BRONCHOSCOPY 07/31/2023 COLONOSCOPY FLX DX W/COLLJ SPEC WHEN PFRMD 06/29/2016 HAD VASOVAGAL RESPONSE DURING PROCEDURE SYST BP 60'S HR 40'S-GIVEN ATROPINE CORRJ HLX VLGS BNCTY SESMDC DSTL METAR OSTEOT 1985 DIAGNOSTIC ARTHROSCOPY SHOULDER +- SYNOVIAL BX Left 04/03/2018 Left shoulder arthroscopic subacromial decompression, rotator cuff repair, and biceps tenotomy EGD 12/25/2022 repeat 2 years ESOPHAGOGASTRODUODENOSCOPY TRANSORAL DIAGNOSTIC 11/11/2018 EGD ESOPHAGOGASTRODUODENOSCOPY TRANSORAL DIAGNOSTIC 11/22/2020 repeat in 2 years FOOT SURGERY HX 1986 HYSTEROSCOPY 06/21/2017 D&C LUNG BIOPSY HX 08/24/2023 SIGMOIDOSCOPY ?1999 SKIN BIOPSY HX TONSILLECTOMY HX ALLERGIES Albuterol and Adhesive Tape (Rosins) MEDICATIONS Current Outpatient Medications Medication Sig predniSONE (DELTASONE) 10 mg tablet Take 3 tablets by mouth once daily for 7 days, THEN 2 tablets once daily for 7 days, THEN 1 tablet once daily for 7 days. levothyroxine (SYNTHROID) 50 mcg tablet Take 1 tablet by mouth daily at 6 am. zpmutvfufyAFUMB-hntqsh-roqgormea (BMX 1:1:1) 1:1:1 liqd Take 5 mL by mouth every 4 hours as needed. ursodiol (ACTIGALL) 300 mg capsule Take 1 capsule by mouth three times a day. prochlorperazine (COMPAZINE) 10 mg tablet Take 1 tablet by mouth every 6 hours as needed. For chemotherapy induced nausea and vomiting. folic acid 1 mg tablet Take 1 tablet by mouth once daily. cinacalcet (SENSIPAR) 30 mg tablet Take 1 tablet by mouth once daily. (Patient not taking: Reported on 04/10/2024) pantoprazole DR (PROTONIX) 40 mg tablet Take 1 tablet by mouth once daily. (Patient not taking: Reported on 04/10/2024) mupirocin (BACTROBAN) 2 % ointment Apply small amount of Mupirocin with a Q tip in each nostril. Apply in the morning and before bed the day before surgery . Apply third time the morning of surgery (Patient not taking: Reported on 04/10/2024) magnesium chloride (SLOW-MAG ORAL) Take 1 tablet by mouth two times a day. (Patient not taking: Reported on 04/10/2024) cholecalciferol (VITAMIN D-3) 50 mcg (2,000 unit) tablet Take 4,000 Units by mouth once daily. (Patient not taking: Reported on 04/10/2024) clotrimazole-betamethasone (LOTRISONE) lotion Betamethasone / Clotrimazole Clotrimazole/Betamethasone Dip [Clotrimazole-Betamethasone Lot] 30 ML TP NEEDED PRN For SKIN June 14, 2017 Active 06-14-2017 [facility] ([id number]) tacrolimus (PROTOPIC) 0.1 % ointment Apply twice daily to affected areas on face Clobetasol Propionate (TEMOVATE) 0.05 % external solution Apply to affected areas on the scalp twice a day. Dispense 100ml as 30 day supply. biotin 5,000 mcg ODT Take 1 tablet by mouth once daily. (Patient not taking: Reported on 04/10/2024) Calcium-Cholecalciferol, D3, 500 mg-10 mcg (400 unit) per tablet Take 1 tablet by mouth once daily. (Patient not taking: Reported on 04/08/2024) triamcinolone acetonide (KENALOG) 0.1 % cream Apply to rash on body twice a day M-F, take weekends off (Patient not taking: Reported on 03/21/2024) Current Facility-Administered Medications Medication Dose Route Frequency perflutren lipid microspheres 1.3 mL in NaCl (PF) 0.9% 10 mL injection (DEFINITY) INTRAVENOUS DIRECTED PRN sodium chloride 0.9 % (flush) 10 mL (BD POSIFLUSH) 10 mL INTRAVENOUS DIRECTED PRN FAMILY HISTORY Problem Relation Age of Onset Diabetes Mother Hypertension Mother Stroke Mother other (? SFTP) Mother Heart Father age 60's other (PBC) Father None Brother Obstructive Sleep Apnea Brother Colon Cancer Paternal Grandmother Colon Cancer Paternal Grandfather Social History Tobacco Use Smoking status: Former Current packs/day: 0.00 Average packs/day: 0.2 packs/day for 30.0 years (4.5 ttl pk-yrs) Types: Cigarettes Start date: 1985 Quit date: 2016 Years since quittin.1 Smokeless tobacco: Never Tobacco comments: Pt smoked one pack a week x 30 years, quit 2016 Vaping Use Vaping status: Never Used Substance Use Topics Alcohol use: No Drug use: No EXAM: BP 110/62 Pulse 99 Temp 36.7 C (98 F) (Left Tympanic) Wt 86.2 kg (190 lb) SpO2 98% BMI 32.61 kg/m PHYSICAL EXAM: Physical Exam Vitals reviewed. Constitutional: Appearance: Normal appearance. HENT: Head: Normocephalic. Right Ear: Ear canal and external ear normal. There is no impacted cerumen. Left Ear: Ear canal and external ear normal. There is no impacted cerumen. Ears: Comments: TM armando bulging Nose: Rhinorrhea present. No congestion. Mouth/Throat: Pharynx: No oropharyngeal exudate or posterior oropharyngeal erythema. Neck: Vascular: No carotid bruit. Cardiovascular: Rate and Rhythm: Normal rate and regular rhythm. Pulses: Normal pulses. Heart sounds: Normal heart sounds. Pulmonary: Effort: Pulmonary effort is normal. Breath sounds: Normal breath sounds. Comments: RLL clears with cough, chest rise & fall symmetrical Abdominal: General: Bowel sounds are normal. Palpations: Abdomen is soft. Musculoskeletal: General: Normal range of motion. Comments: Walks w/o assistive device, moves all ext. Without difficulty Lymphadenopathy: Cervical: No cervical adenopathy. Skin: General: Skin is warm and dry. Neurological: Mental Status: She is alert and oriented to person, place, and time. Psychiatric: Mood and Affect: Mood normal. Behavior: Behavior normal. LABS: ASSESSMENT/PLAN: 1. Stage 3a chronic kidney disease (HCC) - ICD9: 585.3, ICD10: N18.31 (primary diagnosis) - eGFR: 42 Stable - Check levels again tomorrow - MAGNESIUM - BASIC METABOLIC PANEL 2. Low magnesium level - ICD9: 790.6, ICD10: R79.0 Check mag - MAGNESIUM 3. Hypothyroidism, acquired - ICD9: 244.9, ICD10: E03.9 - Instructed patient on importance of taking on an empty stomach either first thing in the morning or at bedtime. - THYROID STIMULATING HORMONE in 6-8 weeks - on replacement 4. Systemic lupus erythematosus, unspecified SLE type, unspecified organ involvement status (HCC) - ICD9: 710.0, ICD10: M32.9 Off plaquenil for surgery 5. Primary biliary cirrhosis (HCC) - ICD9: 571.6, ICD10: K74.3 Ongoing 6. Lung nodule - ICD9: 793.11, ICD10: R91.1 Having surgery 04/17/24 - follows with Dr. Castle Discussed treatment plan and patient voices understanding. Patient's questions answered appropriately. Medications and potential side effects were discussed and patient voices understanding. Return to the office as scheduled or as needed for worsening/no improvement. Sidra Hurley APRN.DIRECTOR OF PURCHASING documented in this encounter [facility] 04-08-2024 Telephone encounter Note Pt. Notified to also stop calcium supplements. Liset Acevedo LPN [facility] 04-08-2024 Miscellaneous Notes Pt. Notified to also stop calcium supplements. Liset Acevedo LPN Thank you Tamy. Team--Please advise her to stop calcium if still taking. Copied from secure chat. Will reach out to pt. Liset Acevedo LPN Pt. Informed to decrease prednisone to 10 mg daily, Keep appt. Scheduled for 04/11 . Pt. Voiced understanding. Liset Acevedo LPN Yes, just go to 10 mg daily. Alf Castle DO Spoke with pt. , she currently is taking 30 mg daily and is on her 5th day ( already has taken this morning). Confirming that she does not need to taper, she just needs to decrease to 10 mg daily? Liset Acevedo LPN Can let her know kidney biopsy results are more consistent with cisplatin induced kidney injury rather than immunotherapy injury. Decrease prednisone to 10 mg daily and follow up with me as scheduled. Alf Castle DO Spoke with patient about scheduling follow up appointments. She was consulted by Nephrology here at the hospital with Dr. Hurley she would like to be advised if Dr. Castle would prefer her follow up with him or a [facility] doctor? Please advise. documented in this encounter [facility] 04-08-2024 Telephone encounter Note Thank you Tamy. Team--Please advise her to stop calcium if still taking. Copied from secure chat. Will reach out to pt. Liset Acevedo LPN [facility] 04-08-2024 Telephone encounter Note Pt. Informed to decrease prednisone to 10 mg daily, Keep appt. Scheduled for 04/11 . Pt. Voiced understanding. Liset Acevedo LPN [facility] 04-08-2024 Telephone encounter Note Yes, just go to 10 mg daily. Alf Castle DO [facility] 04-08-2024 Telephone encounter Note Spoke with pt. , she currently is taking 30 mg daily and is on her 5th day ( already has taken this morning). Confirming that she does not need to taper, she just needs to decrease to 10 mg daily? Liset Acevedo LPN [facility] 04-07-2024 Telephone encounter Note Can let her know kidney biopsy results are more consistent with cisplatin induced kidney injury rather than immunotherapy injury. Decrease prednisone to 10 mg daily and follow up with me as scheduled. Alf Castle DO [facility] 04-07-2024 Telephone encounter Note Record ID: [id number] Patient name: Vickey Schwartz Date: April 07, 2024 - : Administered by: [facility] Protocol: -> Great! Now we are in a secure chat environment. Protecting your health information is important to us. Ok, let's get started. Please verify your name and date of . Please click on the button with your first name. -> Vickey Got it. On to the next question... Select the button with your last name. -> Efren Got it, thank you. Please enter your date of in MM/DD/YYYY format:(e.g., [birth year]/1969 for Feb [birth year], 1968) -> 1960 Thank you for verifying your information. I'd like to ask you a few questions about how your recovery is going. Since leaving the hospital, do you have any new or worsening symptoms? -> No I'm glad to hear that. We encourage a follow-up appointment with a physician within two weeks of being discharged from the hospital to oversee your recovery. It seems you have a follow up appointment scheduled, are you able to attend? -> Yes [facility] 04-07-2024 Miscellaneous Notes Record ID: [id number] Patient name: Vickey Schwartz Date: April 07, 2024 - 01:09 Administered by: [facility] Protocol: -> Great! Now we are in a secure chat environment. Protecting your health information is important to us. Ok, let's get started. Please verify your name and date of . Please click on the button with your first name. -> Vickey Got it. On to the next question... Select the button with your last name. -> Efren Got it, thank you. Please enter your date of in MM/DD/YYYY format:(e.g., 02/[birth year]/1969 for Feb 23, 1968) -> 1960 Thank you for verifying your information. I'd like to ask you a few questions about how your recovery is going. Since leaving the hospital, do you have any new or worsening symptoms? -> No I'm glad to hear that. We encourage a follow-up appointment with a physician within two weeks of being discharged from the hospital to oversee your recovery. It seems you have a follow up appointment scheduled, are you able to attend? -> Yes documented in this encounter [facility] 04-04-2024 Telephone encounter Note Spoke with patient about scheduling follow up appointments. She was consulted by Nephrology here at the hospital with Dr. Hurley she would like to be advised if Dr. Castle would prefer her follow up with him or a [facility] doctor? Please advise. [facility] 04-04-2024 Note HNO ID: [id number] Author: HAILEY HAMMER RN Service: Care Management Author Type: Registered Nurse Type: Care Mgt Progress Note Filed: 04/04/2024 10:55 Note Text: CARE MANAGEMENT DISCHARGE NOTE SERVICE DATE: April 04, 2024 SERVICE TIME: 10:53 AM Admission Date: 04/01/2024 LOS: 3 days Discharge Arrangement Discharge Arrangement: Home with Self Care Caregiver Assessment Caregiver is ready, willing and able to meet the patient's needs as recommended by the inter-professional team: No Caregiver needed Transportation Arrangements Transportation Arrangements: Car Date of Trip: 04/04/24 Destination: Home Handoff Communication: Handoff to: Primary Care Physician Primary Care Physician Name/Phone: Camilo Jonas MD - [phone] Additional Information: Orders received for patient to discharge home. No skilled needs noted. Patient agreeable to discharge plan. Family to transport home. Bedside RN updated. SIGNATURE: Hailey Hammer RN PATIENT NAME: Vickey Schwartz DATE: April 04, 2024 TIME: 10:53 AM [facility] 04-04-2024 Note HNO ID: [id number] Author: NIR HSU MD Service: Hospital Medicine Author Type: Physician Type: Progress Notes Filed: 04/04/2024 10:39 Note Text: Documentation Query Please clarify the relationship, if any, between Anemia, Hypercalcemia and Hypothyroidism Unrelated to each other This document will become part of the patient's medical record. [facility] 04-03-2024 Note HNO ID: [id number] Author: NIR HSU MD Service: Hospital Medicine Author Type: Physician Type: Progress Notes Filed: 04/03/2024 15:30 Note Text: DEPARTMENT OF HOSPITAL MEDICINE Progress note SERVICE DATE: 04/03/2024 SERVICE TIME: 3:26 PM Primary Care Physician: Camilo Jonas MD NIGHT AND WEEKEND COVERAGE: TUNAS COVERAGE: Days: [phone], please page attending physician. Nights: [phone], please page [place] [facility] Night coverage pager [phone]. Subjective Feels ok, no major complaints. No CP, SHORTNESS OF BREATH, confusion, neuro deficits . Stable post biopsy. Requesting d/c nadine Objective PHYSICAL EXAM: BP 123/65 Pulse 65 Temp (Src) 98.6 (Oral) Resp 16 Ht 5' 4 (1.63m) Wt 189 lb 9.5 oz (86.0kg) SpO2 99% BMI 32.53 kg/(m2). O2 Therapy: Room Air Physical Exam Performed: GENERAL: Alert, no distress, cooperative SKIN: Skin color, texture, turgor normal. HEAD/SINUSES: NC, atraumatic EYES: EOMI, anicteric sclera OROPHARYNX: Lips, mucosa normal. MMM LUNGS: Lungs clear to auscultation, no accessory muscle use CARDIAC: Normal S1 and S2; no rubs, murmurs, or gallops ABDOMEN: Abdomen soft, non-tender EXTREMITIES: Extremities normal, no deformities, edema, clubbing or skin discoloration. NEURO: Grossly normal cognition, motor function, and cranial nerves III-XII Lines, Drains, and Airways Line Duration Peripheral 04/01/[address] [facility] Left Antecubital 20 Gauge 2 days Reviewed lines and needs to be continued: REASONS: medical management DATA: Diagnostic tests reviewed for today's visit: Most recent labs Most recent imaging Most recent EKG Assessment/Plan Problem List Acute kidney injury (HCC) (POA: Yes) Primary biliary cirrhosis (HCC) (POA: Yes) Milton's esophagus with dysplasia (POA: Yes) Interstitial lung disease (HCC) (POA: Yes) Systemic lupus erythematosus (HCC) (POA: Yes) Sclerosing cholangitis (POA: Yes) RODRIGO (obstructive sleep apnea) (POA: Yes) Non-small cell cancer of right lung (HCC) (POA: Yes) Hypercalcemia (POA: Yes) CRISTINO (acute kidney injury) (HCC) (POA: Yes) Exogenous Class 1 Obesity Principal Problem: Acute kidney injury (HCC) Hypercalcemia Hypomagnesemia Assessment AND Plan: - Baseline creatinine around fall was 0.65 - Has been elevated now for multiple months around 1.6 - Cr 1.50 --> 1.59 --> 1.49 --> 1.59 - Ca2+ 10.7 --> 11.6 --> 11.5 --> 12.5-->10.7 - Following with Dr. Palomo Lal, nephrology - Outpatient labs came back and patient was recommended to come in for admission - Dr. Hurley reviewed recommended orders and placed additional orders for CRISTINO and hypercalcemia - Follow ionized calcium, PT/INR, phosphorus, Vitamin D 25, Vitamin D 1,25, PTH, PTH peptide - Zoledronic acid per nephrology - IVF per nephrology - Solumedrol 125mg IV Sunday, , then will need switched to oral prednisone 40mg tapered for a month - No need for calcitonin S.Cr 10.7 today, await work up - Tele d/cd since electrolytes better and lot of artifact - Nephrology consult appreciated S/P renal biopsy 04/03/24 - Consult Dr. Castle Possible d/c in AM Start on sensipar Active Problems: Primary biliary cirrhosis (HCC) Sclerosing cholangitis Assessment AND Plan: - AST 66 - ALT 76 - Near baseline - Suspected cirrhosis on CT AP Restart Ursodiol Abnormal LFTs likely due to cirrhosis Milton's esophagus with dysplasia Assessment AND Plan: - PPI on hold currently per heme/onc note Non-small cell cancer of right lung (HCC) Interstitial lung disease (HCC) Assessment AND Plan: - Follows with Dr. Castle - Treatment currently on hold due to CRISTINO believed to be 2/2 treatment - CT AP showed pelvic cystic mass that is unchanged, o/p f/u - Appreciate oncology eval Systemic lupus erythematosus (HCC) Interstitial lung disease Assessment AND Plan: Cont Plaquenil Anemia Follow trend and get basic work up Medication Reconciliation: Completed Medication and Non-Pharmacologic VTE Prophylaxis/Anticoagulants VTE Prophylaxis: VTE prophylaxis appropriate Disposition: ?home Plan of care discussed with Provider, RN, Patient Plan communicated to: Patient prefers to communicate with family. Some elements copied from previous progress note dated 04/02/24 , the elements have been updated and all reflect current decision making from today, 04/03/24 [facility] 04-03-2024 Note HNO ID: [id number] Author: ALF ACSTLE DO Service: Hematology/Oncology Author Type: Physician Type: Plan of Care Filed: 04/03/2024 06:48 Note Text: TSH and T4 demonstrate significantly underactive thyroid function. Orders for levothyroxine 50 mcg daily placed. Repeat TSH/T4 in about 4-6 weeks. Alf Castle DO [facility] 04-02-2024 Note HNO ID: [id number] Author: YUN PAINTER RN Service: Care Management Author Type: Registered Nurse Type: Care Mgt Initial Assessment Filed: 04/02/2024 15:48 Note Text: CARE MANAGEMENT: ASSESSMENT AND DISCHARGE PLAN SERVICE DATE: April 02, 2024 SERVICE TIME: 3:46 PM PCP: Camilo Jonas MD Primary Contact: Extended Emergency Contact Information Primary Emergency Contact: Royal Schwartz Address: [address] [place] [address] [facility] Mobile Relation: Brother Secondary Emergency Contact: Marcy Schwartz Mobile Relation: Sister Admission Status: Inpatient Insurance Provider: BLUE CARD PPO OOS Discharge Planning requested by: Per Department Practice Potential Transition Plans Home Advance Directives Current Advance Directive: Health Care Power of Slubber Hand, Living Will In Chart: Yes Up To Date and Valid: Yes Current Living Arrangements and Support Lives with: Alone Type of Residence: Private Residence (House) Support: Family members How do you manage to accomplish the following: Independent: Ambulation, Bathe/Shower, Dress, Meals/Meal Prep, Going to the bathroom, Medication Management, Transportation to appointments/community Current Services/Equipment Current Post-Acute Service(s): None Discharge Planning Patient Goal(s): Be able to go home, General wellness [place] of Choice Explained: [place] of [place] Given: No Reason Not Given: No placements necessary Are you interested in bedside delivery of your medications? No Discharge Planning Participant(s): Patient Patient/Family Comments: N/A Caregiver Assessment: Caregiver is ready, willing and able to meet the patient's needs as recommended by the inter-professional team: No Caregiver needed Transport at Discharge: Transportation Arrangements: Car Destination: home Needs Prior to Discharge: Needs Prior to Discharge: Other: See Comment (medical clearance) Post-Acute Discharge Plan: EMR reviewed, RNCM met with patient at bedside introduced self and role. 63 y/o admitted with CRISTINO PMHx of non-small cell lung cancer or right lung, primary biliary cirrhosis, lupus, RODRIGO, interstitial lung disease, milton's esophagus Patient reports she lives alone and is independent at baseline Drives. Employed but currently on short term leave Denies use of DME Brother will transport home on DC SIGNATURE: Yun Painter RN PATIENT NAME: Vickey Schwartz DATE: April 02, 2024 TIME: 3:46 PM [facility] 04-02-2024 Note HNO ID: [id number] Author: NIR HSU MD Service: Hospital Medicine Author Type: Physician Type: Progress Notes Filed: 04/02/2024 11:26 Note Text: DEPARTMENT OF HOSPITAL MEDICINE Progress note SERVICE DATE: 04/02/2024 SERVICE TIME: 11:20 AM Primary Care Physician: Camilo Jonas MD NIGHT AND WEEKEND COVERAGE: TUNAS COVERAGE: Days: [phone], please page attending physician. Nights: [phone], please page [place] [facility] Night coverage pager [phone]. Subjective Feels ok, no major complaints. No CP, SHORTNESS OF BREATH, confusion, neuro deficits Objective PHYSICAL EXAM: BP 126/72 Pulse 66 Temp (Src) 97.9 (Oral) Resp 16 Ht 5' 4 (1.63m) Wt 201 lb 4.5 oz (91.3kg) SpO2 99% BMI 34.53 kg/(m2). O2 Therapy: Room Air Physical Exam Performed: GENERAL: Alert, no distress, cooperative SKIN: Skin color, texture, turgor normal. HEAD/SINUSES: NC, atraumatic EYES: EOMI, anicteric sclera OROPHARYNX: Lips, mucosa normal. MMM LUNGS: Lungs clear to auscultation, no accessory muscle use CARDIAC: Normal S1 and S2; no rubs, murmurs, or gallops ABDOMEN: Abdomen soft, non-tender EXTREMITIES: Extremities normal, no deformities, edema, clubbing or skin discoloration. NEURO: Grossly normal cognition, motor function, and cranial nerves III-XII Lines, Drains, and Airways Line Duration Peripheral 04/01/[address] [facility] Left Antecubital 20 Gauge <1 day Reviewed lines and needs to be continued: REASONS: medical management DATA: Diagnostic tests reviewed for today's visit: Most recent labs Most recent imaging Most recent EKG Assessment/Plan Problem List Acute kidney injury (HCC) (POA: Yes) Primary biliary cirrhosis (HCC) (POA: Yes) Milton's esophagus with dysplasia (POA: Yes) Interstitial lung disease (HCC) (POA: Yes) Systemic lupus erythematosus (HCC) (POA: Yes) Sclerosing cholangitis (POA: Yes) RODRIGO (obstructive sleep apnea) (POA: Yes) Non-small cell cancer of right lung (HCC) (POA: Yes) Hypercalcemia (POA: Yes) CRISTINO (acute kidney injury) (HCC) (POA: Yes) Exogenous Class 1 Obesity Principal Problem: Acute kidney injury (HCC) Hypercalcemia Hypomagnesemia Assessment AND Plan: - Baseline creatinine around fall was 0.65 - Has been elevated now for multiple months around 1.6 - Cr 1.50 --> 1.59 --> 1.49 --> 1.59 - Ca2+ 10.7 --> 11.6 --> 11.5 --> 12.5-->10.7 - Following with Dr. Palomo Lal, nephrology - Outpatient labs came back and patient was recommended to come in for admission - Dr. Hurley reviewed recommended orders and placed additional orders for CRISTINO and hypercalcemia - Follow ionized calcium, PT/INR, phosphorus, Vitamin D 25, Vitamin D 1,25, PTH, PTH peptide - Zoledronic acid per nephrology - IVF per nephrology - Solumedrol 125mg IV Sunday, , then will need switched to oral prednisone 40mg tapered for a month - No need for calcitonin S.Cr 10.7 today, await work up - Check EKG - Tele d/cd since electrolytes better and lot of artifact - Nephrology consult appreciated Possible renal biopsy nadine NPO after midnight - Consult Dr. Castle Active Problems: Primary biliary cirrhosis (HCC) Sclerosing cholangitis Assessment AND Plan: - AST 66 - ALT 76 - Near baseline - Suspected cirrhosis on CT AP Restart Ursodiol Abnormal LFTs likely due to cirrhosis Milton's esophagus with dysplasia Assessment AND Plan: - PPI on hold currently per heme/onc note Non-small cell cancer of right lung (HCC) Interstitial lung disease (HCC) Assessment AND Plan: - Follows with Dr. Castle - Treatment currently on hold due to CRISTINO believed to be 2/2 treatment - CT AP showed pelvic cystic mass that is unchanged, o/p f/u - Consult Dr. Castle Systemic lupus erythematosus (HCC) Interstitial lung disease Assessment AND Plan: Cont Plaquenil Anemia Follow trend and get basic work up Medication Reconciliation: Completed Medication and Non-Pharmacologic VTE Prophylaxis/Anticoagulants VTE Prophylaxis: VTE prophylaxis appropriate Disposition: ?home Plan of care discussed with Provider, RN, Patient Plan communicated to: Patient prefers to communicate with family. Some elements copied from previous progress note dated 04/01/24 , the elements have been updated and all reflect current decision making from today, 04/02/24 [facility] 04-01-2024 Note HNO ID: [id number] Author: TAMY HURLEY MD Service: Nephrology Author Type: Physician Type: Plan of Care Filed: 04/01/2024 17:22 Note Text: Discussed case with Dr. Castle and asked to consult on Ms. Schwartz. Full consult to follow. Chart reviewed. 63yo female dx with stage IIb NSCLC last year, started on cisplatin/permetrexed/pembrolizumab on 12/10/23. Her pre-chemo Cr was 0.6 yuly to 1.38 shortly after initiation of this regimen. It has varied between 0.98 and 1.6 since that time despite cisplatin being stopped during cycle 2. She has been maintained on permetrexed and pembrolizumab. She is being worked up for surgical resection but this has been postponed till next month due to metabolic abnormalites. More recently since February, has been having hypercalcemia now up to 12.5. She was evaluated by Dr. 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 It was suggested that patient stop pembrolizumab and present to ER for steroid initiation and possible renal biopsy. She was sent home from ER on 03/12/24 at [facility] and started on prednisone 60mg daily as outpatient by Dr. Castle on 03/13/24. Despite this, no major change in renal function and calcium has started to rise. She has been quickly weaned down to 30mg prednisone but now re-presenting to ER due to sustained CRISTINO and worsening hypercalcemia. Of note, her CRISTINO predates her hypercalcemia making this the sole cause of her renal dysfunction less than likely. Could have cisplatin induced nephrotoxicity or immune checkpoint inhibitor toxicity as well. No obstruction on renal imaging. Hypercalcemia likely mediated by her underlying cancer with possible PTHrp activation. Curious as to why hypercalcemia developed despite response to chemo/immunotherapy. Would suggest aggressive IVF with NS and dose of zometa. Will check PTH, PTHrp, Vit D levels and monitor renal function and calcium levels. If no improvement, will consider renal biopsy for definitive diagnosis on . Please avoid any ASA or blood thinners. OK with me for IV steroids although the diagnosis of immune mediated nephritis is unclear at this time. Full consult to follow tomorrow. Thanks, Tamy [facility] 04-01-2024 Telephone encounter Note Emily Care Coordination FOLLOW-UP NOTE Patient identified by name and date of . YES Spoke to patient Care Coordination Plan: patient called back. She is on her way to [facility]. Ann Randolph RN April 01, 2024 [facility] 04-01-2024 Miscellaneous Notes [facility] Care Coordination FOLLOW-UP NOTE Patient identified by name and date of . YES Spoke to patient Care Coordination Plan: patient called back. She is on her way to [facility]. Ann Randolph RN April 01, [address] Castle, he has been in communication with other care providers and the following was recommended: Per Dr. Lal: I suggest admitting the patient to the hospital, stopping oral calcium and vitamin D supplement, checking her PTH-related peptide, intact-PTH, ionized calcium, 25 hydroxy vitamin D, and 1-25 dihydroxy vitamin d levels, and treating with INSS IV, calcitonin, zoledronic acid (or denosumab), and solumedrol 125 mg IV daily x 3 days, followed by prednisone 40 mg oral daily to be tapered over a month. Patient was informed of communication and advised [place] [facility]. Patient stated she will need to think this over and contact this nurse today with her decision. Ann Randolph RN documented in this encounter [facility] 04-01-2024 Telephone encounter Note Per Dr. Castle, he has been in communication with other care providers and the following was recommended: Per Dr. Lal: I suggest admitting the patient to the hospital, stopping oral calcium and vitamin D supplement, checking her PTH-related peptide, intact-PTH, ionized calcium, 25 hydroxy vitamin D, and 1-25 dihydroxy vitamin d levels, and treating with INSS IV, calcitonin, zoledronic acid (or denosumab), and solumedrol 125 mg IV daily x 3 days, followed by prednisone 40 mg oral daily to be tapered over a month. Patient was informed of communication and advised [place] [facility]. Patient stated she will need to think this over and contact this nurse today with her decision. Ann Randolph RN [facility] 03-31-2024 Telephone encounter Note Images from the original note were not included. The patient has hypercalcemia. Will stop oral calcium and vitamin D and repeat labs. Department of Kidney Medicine Medical Specialties [place] Palomo Rascon MD Staff Nephrology and Hypertension [facility] Pager# [phone] [facility] 03-31-2024 Miscellaneous Notes Images from the original note were not included. The patient has hypercalcemia. Will stop oral calcium and vitamin D and repeat labs. Department of Kidney Medicine Medical Specialties [place] Palomo Rascon MD Staff Nephrology and Hypertension [facility] Pager# [phone] documented in this encounter [facility] 03-26-2024 Telephone encounter Note Scheduled with patient [facility] Work Phone: 03-26-2024 Miscellaneous Notes Scheduled with patient Pt notified and voices understanding. Updated med list. Please assist with lab/possible IV electrolyte replacement for this Sunday. Jackie Mehta LPN Advised her to decrease prednisone to 30 mg daily. Repeat BMP/magnesium possible electrolyte infusion on Sunday. Alf Castle DO documented in this encounter [facility] 03-26-2024 Telephone encounter Note Pt notified and voices understanding. Updated med list. Please assist with lab/possible IV electrolyte replacement for this Sunday morning. Jackie Mehta LPN [facility] 03-25-2024 Telephone encounter Note Advised her to decrease prednisone to 30 mg daily. Repeat BMP/magnesium possible electrolyte infusion on Sunday. Alf Castle DO [facility] 03-21-2024 Telephone encounter Note COMPLETED [facility] Work Phone: 03-21-2024 Miscellaneous Notes COMPLETED Add on for Magnesium infusion today- done. Cancel Keytruda 03/24/2024 and 04/14/2024. Keep lab and OV on 04/11/2024. BMP/MAG and possible Magnesium infusion on 03/25/2024. documented in this encounter [facility] 03-21-2024 Telephone encounter Note Add on for Magnesium infusion today- done. Cancel Keytruda 03/24/2024 and 04/14/2024. Keep lab and OV on 04/11/2024. BMP/MAG and possible Magnesium infusion on 03/25/2024. [facility] 03-21-2024 Note [facility] 03-21-2024 History of Present illness Narrative Oncologic problem(s): 1) Stage II NSCLC, adenocarcinoma. HPI: The patient is a 63-year-old female with a past medical history as outlined below. The patient is a former smoker of approximately 7-pack-year, quit in 2016. She is on Plaquenil for history of lupus. She has primary biliary cholangitis. She had a nodule discovered on lung cancer screening study for surveillance of her interstitial pulmonary fibrosis. A CT of the chest done in June 2023 demonstrated an interval new 13 x 19 mm right lower lobe subpleural nodule. PET scan done in July showed the nodule to measure 20.6 mm with an SUV of 14.0. Perihilar lymph nodes measuring up to 11 mm which were stable in size with an SUV of 10.7. She underwent a CT-guided biopsy of the right lower lobe nodule. Pathology demonstrated poorly differentiated non-small cell carcinoma favoring adenocarcinoma. She underwent bronchoscopy with EBUS. Samples from 11 RS demonstrated rare atypical epithelial cells and station 7 was negative for malignant cells. 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 CT has been stable and pulmonary function tests do not show restriction or low diffusing capacity. Patient prefers pulmonary follow-up closer to home. Patient is asymptomatic so antifibrotic therapy has been on hold. 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 She denies significant dyspnea except for with extreme activity. Chronic cough or sputum production. No wheezing. She used to smoke a pack a week but quit in 2015 when she had note of a small nodule on chest CT. Today she states that she continues to do well. Her Plaquenil controls her cutaneous symptoms. She has no arthralgias, erythema or joint effusions, no skin lesions, no edema. She does have photosensitivity and limits her sun exposure. She has excessive daytime sleepiness, known snoring and witnessed apneas. HSAT from 2020 showed possible mild obstructive sleep at but she never followed through with formal in lab sleep study. She states that she can fall asleep easily when sitting watching TV or working on her computer. She is a loud snorer, in fact her brother has been bothering her to be reevaluated for apnea. Per initial consultation: She is working on a daily basis. 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 Gets short of breath with trying to run or walking steeper slopes. Recent 6-minute walk test results were very good. Recently had testing for sleep apnea which suggested sleep apnea. It was a home sleep study test. Occasional dry cough but not frequent throughout the day. 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 Appetite has been normal. Presents for ongoing oncologic management. Interim history: Repeat CT chest 10/23/2023: Soft tissue mass along the posterior superior segment of the right lower lobe is increased in size, currently measuring 26 x 21 x 28 mm in transverse, AP and craniocaudal dimensions respectively, while previously measuring 20 x 16 x 27 mm in these same orientations. Numerous additional small lung nodules are unchanged relative to previous studies including 12/05/2021 Pleural space: No pleural effusion. No pleural thickening. Lower neck, lymph nodes, and mediastinum: There is new right hilar lymphadenopathy, measuring up to 13 mm in short axis on image 121. Additional enlarged right hilar nodes are present. 8 mm right paratracheal node. No axillary lymphadenopathy. Bronchoscopy 11/22/2023: Pathology: A - Lymph Node, Transbronchial, Aspirate/Fine Needle Aspirate - 4R Negative for malignant cells. Benign lymphoid sample. B - Lymph Node, Transbronchial, Aspirate/Fine Needle Aspirate - 11RS Positive for malignant cells. Non-small cell carcinoma. C - Lymph Node, Transbronchial, Aspirate/Fine Needle Aspirate - 11RI Positive for malignant cells. Non-small cell carcinoma. Current therapy: 1) Neoadjuvant pemetrexed, cisplatin and pembrolizumab. Completed 4 cycles. Cisplatin omitted cycles 3 and 4 due to CRISTINO. Presents for ongoing oncologic management. Interim history: Started prednisone for immunotherapy induced CRISTINO. Tolerating well. No dyspnea unless really exerts herself. Infrequent cough. No diarrhea. PAST MEDICAL HISTORY Diagnosis Date Hemorrhage of rectum and anus HYPERLIPIDEMIA MIXED 07/10/2005 Lung nodule 06/13/2016 June 25, 2017 subcentimeter lung nodules and interstitial lung disease also stable from 2017: check CT in 1 year. Primary biliary cholangitis (HCC) Snoring Systemic lupus erythematosus (HCC) PAST SURGICAL HISTORY Procedure Laterality Date BRONCHOSCOPY 07/31/2023 COLONOSCOPY FLX DX W/COLLJ SPEC WHEN PFRMD 06/29/2016 HAD VASOVAGAL RESPONSE DURING PROCEDURE SYST BP 60'S HR 40'S-GIVEN ATROPINE CORRJ HLX VLGS BNCTY SESMDC DSTL METAR OSTEOT 1986 DIAGNOSTIC ARTHROSCOPY SHOULDER +- SYNOVIAL BX Left 04/03/2018 Left shoulder arthroscopic subacromial decompression, rotator cuff repair, and biceps tenotomy EGD 12/25/2022 repeat 2 years ESOPHAGOGASTRODUODENOSCOPY TRANSORAL DIAGNOSTIC 11/11/2018 EGD ESOPHAGOGASTRODUODENOSCOPY TRANSORAL DIAGNOSTIC 11/22/2020 repeat in 2 years FOOT SURGERY HX 1986 HYSTEROSCOPY 06/21/2017 D&C LUNG BIOPSY HX 08/24/2023 SIGMOIDOSCOPY ?2000 SKIN BIOPSY HX TONSILLECTOMY HX predniSONE (DELTASONE) 20 mg tablet Take 3 tablets by mouth once daily. magnesium chloride (SLOW-MAG ORAL) Take 1 tablet by mouth two times a day. hydrOXYchloroQUINE (PLAQUENIL) 200 mg tablet Take 1 tablet by mouth two times a day. erenkkalomMWKHS-faitsa-fzdblgyks (BMX 1:1:1) 1:1:1 liqd Take 5 mL by mouth every 4 hours as needed. ursodiol (ACTIGALL) 300 mg capsule Take 1 capsule by mouth three times a day. pantoprazole DR (PROTONIX) 40 mg tablet Take 1 tablet by mouth once daily. prochlorperazine (COMPAZINE) 10 mg tablet Take 1 tablet by mouth every 6 hours as needed. For chemotherapy induced nausea and vomiting. folic acid 1 mg tablet Take 1 tablet by mouth once daily. cholecalciferol (VITAMIN D-3) 50 mcg (2,000 unit) tablet Take 4,000 Units by mouth once daily. clotrimazole-betamethasone (LOTRISONE) lotion Betamethasone / Clotrimazole Clotrimazole/Betamethasone Dip [Clotrimazole-Betamethasone Lot] 30 ML TP NEEDED PRN For SKIN June 14, 2017 Active 06-14-2017 [facility] ([id number]) Clobetasol Propionate (TEMOVATE) 0.05 % external solution Apply to affected areas on the scalp twice a day. Dispense 100ml as 30 day supply. biotin 5,000 mcg ODT Take 1 tablet by mouth once daily. Calcium-Cholecalciferol, D3, 500 mg-10 mcg (400 unit) per tablet Take 1 tablet by mouth once daily. mupirocin (BACTROBAN) 2 % ointment Apply small amount of Mupirocin with a Q tip in each nostril. Apply in the morning and before bed the day before surgery . Apply third time the morning of surgery albuterol HFA (PROVENTIL HFA, VENTOLIN HFA) 90 mcg/actuation inhaler Inhale 2 Puffs as instructed every 4 hours as needed. (Patient not taking: Reported on 03/18/2024) tacrolimus (PROTOPIC) 0.1 % ointment Apply twice daily to affected areas on face triamcinolone acetonide (KENALOG) 0.1 % cream Apply to rash on body twice a day M-F, take weekends off (Patient not taking: Reported on 03/21/2024) ALLERGIES Allergen Reactions Albuterol Other: See Comments kyra Morrison Adhesive Tape (Sammi* Itching Itching and redness FAMILY HISTORY Problem Relation Age of Onset Diabetes Mother Hypertension Mother Stroke Mother other (? SFTP) Mother Heart Father age 60's other (PBC) Father None Brother Obstructive Sleep Apnea Brother Colon Cancer Paternal Grandmother Colon Cancer Paternal Grandfather Social History Tobacco Use Smoking status: Former Current packs/day: 0.00 Average packs/day: 0.2 packs/day for 30.0 years (4.5 ttl pk-yrs) Types: Cigarettes Start date: 1985 Quit date: 2016 Years since quittin.1 Smokeless tobacco: Never Tobacco comments: Pt smoked one pack a week x 30 years, quit 2016 Vaping Use Vaping status: Never Used Substance Use Topics Alcohol use: No Drug use: No REVIEW OF SYSTEMS: Constitutional: No episodes of fever and night sweats. Not significantly fatigued. Neuro: No GUTIERREZ, vertigo, dizziness and imbalance. No symptoms of neuropathy. HEENT: No recent change in voice, vision or hearing. Resp: See above. CVS: Denies exertional chest pain, PND, orthopnea and LE edema. GI: Denies dysphagia and odynophagia. Denies reflux, n/v, change in bowel habits and abdominal pain. : Denies dysuria or gross hematuria. No symptoms of bladder outlet obstruction. Endo: Denies hot flashes. Denies polyuria and polydipsia. Denies heat and cold intolerance. Musculoskeletal: Denies bone, back, joint and muscular pain. Derm: See above. Heme: Denies unusual bleeding and unexplained bruising. Psych: Normal mood. PHYSICAL EXAM: Vitals: Blood pressure 129/83, pulse 87, temperature 36.2 C (97.1 F), weight 88.7 kg (195 lb 8 oz), SpO2 99%. Well-appearing and in no acute distress. EYES: Sclerae are anicteric bilaterally. Respiratory breath sounds are uniformly mildly diminished throughout. IMAGING: PET [facility] 07/17/2023: 20.6 mm hypermetabolic nodule right mid posterior, right lower lobe with SUV 14.0. There was also FDG G uptake noted in the right thoracic perihilar and generating an SUV of 10.3. The maximal axial diameter the metabolic, morphologic abnormality is 10.7 mm. Genetic testing: NGS/biomarkers/flatbed truck driver mutation analyses: [employer] 10/30/2023: -No flatbed truck driver mutations. -BRAF p([id number] Arg) variant of potential clinical significance. Tier II. ASSESSMENT/PLAN: (C34.31) Cancer of lower lobe of right lung (HCC) (primary encounter diagnosis) Assessment: -T1c N1 (lymph node station 11 RS and 11 RI) M0 stage IIB NSCLC, adenocarcinoma of the RLL. 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 -Stage IIB non-small cell lung cancer, adenocarcinoma. -Discussed with rheumatology. Interstitial lung disease was very mild. [place] to be a candidate for immunotherapy. -Tolerated chemotherapy very well overall. -CT revealed near 50% decrease in size of primary tumor. -Discussed plan below and made appropriate changes to medication list. Plan: -Hold pembrolizumab for now. -Taper prednisone to 40 mg daily. -IV Mg today. -Recheck BMP/Mg Sunday next week. -Taper to 30 mg daily if serum Cr improved. -No PPI for now. -Pepcid prn. -Keep OV 04/11. Portions of this documentation were copied and pasted from my previous office visit note dated 02/20/2024 in order to provide a cohesive continuity of the history. The note has been reviewed and edited and updated as necessary. Alf Castle DO Est. Pt, discuss recent labs, treatment 03/24 Liset Acevedo LPN documented in this encounter [facility] 03-21-2024 Note HNO ID: [id number] Author: LISET ACEVEDO LPN Service: ? Author Type: LICENSED NURSE Type: Progress Notes Filed: 03/21/2024 09:43 Note Text: Est. Pt, discuss recent labs, treatment 03/24 Liset Acevedo LPN [facility] 03-19-2024 Note [facility] 03-19-2024 Note HNO ID: [id number] Author: JANETT FELICIANO MD, PhD Service: ? Author Type: Physician Type: Progress Notes Filed: 03/19/2024 11:40 Note Text: I have read and reviewed the documentation and agree. I wish to add the following findings which have been dictated and will be communicated back to the requesting physician. Janett Feliciano MD, PhD [facility] 03-19-2024 History of Present illness Narrative I have read and reviewed the documentation and agree. I wish to add the following findings which have been dictated and will be communicated back to the requesting physician. Janett Feliciano MD, PhD Images from the original note were not included. CHART COPY DO NOT DISCARD . Patient here today for [facility] visit. . Surgery Robotic Assisted right lower lobe lung resection scheduled for 03/31/2024. . Meds allergies reviewed. Latex Allergy: No Anticoag:MVI/Supplements-last dose 03/23/2024 GLP1/SGLT2: Prednisone 20mg TID Immunosuppressants Plaquenil last dose 03/17/2024 Medport: No Preoperative instructions; NPO after midnight night prior to surgery and Listerine after brushing teeth and Hibiclens shower Patient verbalized understanding of instructions. . Last clinic note 03/06/2024 per Tessie Kaufman C.N.P. Malignant neoplasm of lower lobe of right lung (HCC) PRINCIPAL DX: clinical T1cN1 stage IIA Cancer poorly differentiated non-small cell carcinoma favoring adenocarcinoma of the right lower lobe of lung SURGICAL HX: none per thoracic Today's visit 03/18/2024: BP 112/53 (BP Site: Left Arm, BP Cuff Size: Regular Adult) Pulse 70 Temp 37.1 C (98.7 F) Resp 18 Ht 162.6 cm (5' 4) Wt 87.4 kg (192 lb 10.2 oz) SpO2 98% BMI 33.07 kg/m CXR: 03/18/[address] CHEST 02/12/2024 IMPRESSION: 1. Interval decrease in the size of the pleural-based soft tissue mass in the right lower lobe. No evidence of acute intrathoracic pathology. MRI BRAIN 09/21/2023 IMPRESSION: No abnormal intracranial enhancement to indicate intracranial metastasis. Chronic changes and incidental findings as described. PET SCAN 07/16/2024 Outside Source . PFT: 03/06/2024 FVC (L) 3.59 2.15 2.98 3.83 120 3.66 122 2 FEV1 (L) 2.36 1.68 2.35 2.99 100 2.42 102 2 DLCOunc (ml/min/mmHg) 14.72 15.35 21.52 27.69 68 6MW: 03/06/2024 Distance Walked (meters) Distance Walked (feet) Female Predicted Walk Distance (feet) Female Lower Limit of Normal (feet) Female % Predicted Total Duration Of The Stops (seconds) 411.48 1350 1487.86 1031.86 90.7 Cardiac Studies: Echo 03/06/2024 CONCLUSIONS: - Technically difficult exam due to body habitus. - Exam indication: Cardiotoxicity screen before chemotherapy - The left ventricle is normal in size. Left ventricular systolic function is normal. EF = 58 5% (2D biplane) - The right ventricle is normal in size. Right ventricular systolic function is normal. - The patient has not had a prior CC echocardiographic exam for comparison. EK03/18/2024 Clinical Staging: T: 1c N: 1 M: 0 G: NA Risk, benefits, and alternatives discussed per Janett Feliciano M.D. [facility] 03/18/2024 Films CCT, PET, and MRI BRAIN . PATIENT EDUCATION The following was evaluated: Motivation To Learn: Interested Family/Significant Other Support: High - Very involved in pt care Cognitive Ability: Alert and oriented Patient Learns Best By: Multiple Methods The Following Influencing Factors Were Barriers To This Education Session: No barriers Gluer Machine Operator Present: Not Applicable The Following Physical Limitations Were Barriers To This Education Session: None Instruction Provided To: Patient & Family Discipline: Nursing Learning Topic: Pre-op Instructions given Patient Evaluation: Verbalizes understanding Follow Up Plan: Patient/Family will call us with questions Supplemental Material Given: [facility] Patient Instructions: Thoracic Surgery Teach completed, topic: postoperative safety with teachback Instructed By Barbi An RN. In Department of THORACIC SURGERY. documented in this encounter [facility] 03-19-2024 Telephone encounter Note Received Short Term Disability paperwork for patient. Paperwork given to Thoracic NPM for completion. After completion, paperwork is to be faxed to [phone] Attn: unum Signed PHI release attached No Dates: 10/04/23 Consult - Referring provider: Dr. Ny Ross Diagnosis: RLL Lung Cancer 10/30/23 Follow-up 03/18/24 Pre-Op 03/31/24 Surgery: ROBOTIC THORACOSCOPY; LOBECTOMY, TOTAL OR SEGMENTAL [] ICD-10: C34.31 CPT: 35558 TBD Discharge TBD Post-Op Follow-up - Primary diagnosis: ICD-10: TBD Follow-up Yun Samuels, university administrative assistant [facility] 03-18-2024 Instructions Nelda Chung PA-C - 03/18/2024 1:06 PM EST Images from the original note were not included. [facility] PATIENT PREOPERATIVE INSTRUCTIONS aJnett Feliciano MD, PhD has scheduled you for your procedure at this surgery center: [facility] Scheduling Office: [phone] --[address] [place] [address]. Please read below carefully for your personalized instructions. Dietary Restrictions: - No solid food after midnight. - You may have 12 ounces of clear liquids (water, clear juices such as apple juice or gatorade, carbonated beverages, clear tea, black coffee, jello) until 2 hours before scheduled arrival at facility. Medications: Unless instructed differently below, stay on all of your medications until your surgery. If you start any new medications after today's visit, please contact your surgeon. Please take the following medications the morning of surgery with a sip of water: pantoprazole, prednisone if still on If you start any new medications after today's visit, please contact the surgeon's office. If you are currently using a qmyh-efk-qunp injectable or oral medication for diabetes or weight loss such as Dulaglutide (Trulicity), Exenatide (Byetta, Bydureon), Liraglutide (Victoza, Saxenda), Semaglutide (Ozempic, Wegovy, Rybelsus), or Tirzepatide (Mounjaro), the medicine should be stopped at least 7 days before surgery. These medicines can cause food to remain in your stomach for a very long time and increase the risks from surgery and anesthesia. Not stopping the medication for a long enough time may result in your surgery being rescheduled. Blood Thinning Medications: - Stop NSAIDS (Ibuprofen, Advil, Aleve, Motrin, Celebrex, Mobic, etc.) 7 days before surgery, as directed by your surgeon. - Stop Aspirin 7 days before surgery, as directed by your surgeon. - Stop ALL herbal and dietary supplements 7 days before surgery. - You may take Tylenol (Acetaminophen) or any of your pain medications that do not contain aspirin or NSAIDS as needed. - You can remain on the following vitamin(s) or supplement(s), except do not take morning of surgery: folic acid, magnesium Important Reminders: - If you use CPAP/BIPAP, bring the machine with you to the surgery center. - If you are prescribed inhalers for breathing, continue using them. - Candy, mints, and tobacco products are NOT permitted the morning of surgery. - Hearing aids, dentures and glasses may be worn the morning of surgery. - NO jewelry, body piercings, makeup, hairpins or contacts are to be worn the day of surgery. If you develop symptoms such as a fever, cold, or flu, or have other changes to your health within TWO DAYS of scheduled surgery or the morning of surgery, please contact the surgery center above. Personal Belongings: -Please have photo ID and insurance cards. -If you do not have a copy of advance directives on file with us, please bring a copy with you on the day of surgery. - Leave ALL valuables and money at home or with family members. - Please bring high-quality footwear, such as sneakers, to the hospital for ambulating post-surgery. For Outpatient Procedures: - YOU MUST HAVE A RESPONSIBLE SOLID WASTE MANAGER TAKE YOU HOME. A TELETYPE OR VARITYPE KEYBOARD OPERATOR OR RAIL CAR REPAIR CARMAN CANNOT BE MADE A RESPONSIBLE SOLID WASTE MANAGER. - We recommend that a responsible person stays with you overnight to take care of you. - You cannot stay in a hotel alone after outpatient surgery. You will not be permitted to have your surgery, if you do not have someone to take care of you. Arrival Time for Surgery: - To obtain your arrival time for surgery, call your physician's office the day before your surgery. - If you have received different instructions about finding out your arrival time from your surgeon, please follow those instructions. - If your surgery is scheduled for Sunday, call the Sunday before. Your surgeon s second chef will tell you what time to call the office. - If you have not reached the departmental second chef by 5 P.M., call [phone] after 5 P.M. the day before your surgery. Please be aware that emergency situations arise, which may delay or change your surgical time. If this happens, we will notify you as soon as possible and regret any inconvenience. If you already have an Advance Directive, please fax a copy to [phone] or email to for it to be added to your chart. If you do not have an Advance Directive, you can find the appropriate form and more information at [email or web address]. We recommend that you complete the Advance Directive form found on the website and bring it with you the day of your surgery. It can be witnessed and scanned into your chart that day. Nelda Chung PA-C documented in this encounter [facility] 03-18-2024 History and physical note Images from the original note were not included. [facility] Pre[facility]est[facility]ation Clinic HISTORY AND PHYSICAL EXAMINATION SERVICE DATE: 03/18/2024 SERVICE TIME: 4:28 PM PRIMARY CARE PHYSICIAN: Camilo Jonas MD Assessment Patient has the following medical conditions which may affect diana-operative course: Obesity, Class I, BMI 30-34.9 Assessment: Body mass index is 33.38 kg/m . Systemic lupus erythematosus (HCC) Assessment: follows with rheumatology and derm, plaquenil on hold per surgeons request per patient Interstitial lung disease (HCC) Assessment: no current inhaler use Spo2 98% Lungs clear RODRIGO (obstructive sleep apnea) Assessment: no CPAP/BiPAP use HYPERLIPIDEMIA MIXED Assessment: no current RX Sclerosing cholangitis Assessment: HX sclerosing cholangitis, primary biliary cholangitis Follows with GI at [facility] Milton's esophagus with dysplasia Assessment: on protonix, follows with GI GERD (gastroesophageal reflux disease) Assessment: with spicy foods. On protonix. 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 Feliciano is aware patient is on prednisone Most recent Cr Creatinine Date Value Ref Range Status 03/18/2024 1.54 (H) 0.58 - 0.96 mg/dL Final 03/12/2024 1.46 (H) 0.58 - 0.96 mg/dL Final 03/10/2024 1.61 (H) 0.58 - 0.96 mg/dL Final Elevated WBC count Assessment: WBC Date Value Ref Range Status 03/18/2024 13.98 (H) 3.70 - 11.00 k/uL Final Patient denies UTI sxs or respiratory infection sxs. No fevers. Advised patient to discuss with oncologist at their next appt. Patient is currently on prednisone. Anemia Assessment: Most recent labs below: Hemoglobin Date Value Ref Range Status 03/18/2024 9.7 (L) 11.5 - 15.5 g/dL Final 03/12/2024 10.2 (L) 11.5 - 15.5 g/dL Final 03/05/2024 10.1 (L) 11.5 - 15.5 g/dL Final 03/03/2024 10.8 (L) 11.5 - 15.5 g/dL Final 02/11/2024 11.4 (L) 11.5 - 15.5 g/dL Final Advised patient to continue to follow with oncologist Cutaneous lupus erythematosus Assessment: follows with maxi garces on hold Guerrero Activity Status Index: METS: Walk indoors, such as around the house (1.75 METs) Do light work around the house, such as dusting or washing dishes (2.70 METs) Take care of self; that is eating, dressing, bathing, using the toilet (2.75 METs) Walk a block or two on level ground (2.75 METs) Do moderate work around the house, such as vacuuming, sweeping floors, or carrying in groceries (3.50 METs) Do yardwork, such as raking leaves, weeding, or pushing a power mower (4.50 METs) Climb a flight of stairs or walk up a hill (5.50 METs) DASI Score: 23.45 Patient denies any chest pain or undue shortness of breath with the above physical activity. Clinical Frailty Scale: 3. Well, with treated comorbid disease ANESTHESIA FINDINGS: Intubation History: No history of difficult intubation Significant Anesthesia Considerations: Was noted in patient's history that with colonoscopy in 2017, she had a vasovagal response during procedure, syst BP 60s and HR 40s, was given atropine. No other anesthesia problems for patient. Niece has had PONV. Airway History: No history of difficult airway I - PHYSICAL EVALUATION AIRWAY Patient intubated: No. Tracheostomy tube not present Mallampati: III. TM distance: >3 FB. Neck ROM: full ROM without neurological symptoms. Mouth opening: adequate. Short neck: yes. Thick neck: yes [place]well present: no Lip Bite Test: II Microretrognathia/Micronagthia/Recesse d Chin: No DENTAL Dental findings: teeth intact and broken tooth. II - ANESTHESIA PLAN Anesthetic plan additional comments: - anesthesia choice. Beta Brittany Monitoring Plan Post Procedure Analgesic Plan Prepared for Surgery: optimally prepared for surgery, pending [see comment]. PENDING: ECG TODAY CXR IN PROCESS LABS IN PROCESS CONSULTS: Patient does not require consults for optimization at this time Planned Anesthetic: anesthesia choice The Following Tests/Procedures Have Been Initiated: ECG today CXR and LABS in process REASON FOR VISIT: Vickey Schwartz is a 63 year old female who is scheduled for Procedure(s): ROBOTIC THORACOSCOPY; RLL lung resection LOBECTOMY, TOTAL OR SEGMENTAL (Right) at the request of Janett Mullins MD, PhD for consultation. My final recommendation will be communicated back to the requesting physician by way of shared medical record or letter. Subjective The patient has the following: COVID-19 Immunization Status Upcoming Covid-19 Vaccine (9 - Moderna risk ) Next due on 06/02/2024 12/03/2023 Imm Admin: COVID-19 vaccine, age 12+ yr (MODERNA) 12/16/2022 Imm Admin: COVID-19 vaccine, age 12+ yr (MODERNA) 07/10/2022 Imm Admin: COVID-19 vaccine, age 12+ yr, bivalent (MODERNA) Only the first 3 history entries have been loaded, but more history exists. CHIEF COMPLAINT: Pre-op HPI: This 63 year old female with a history of malignant neoplasm of lower lobe of right lung is scheduled for the above procedure and presents to the [facility] for pre-operative examination. Patient reports she finished chemo ~02/11/2024. Has been getting keytruda every 3 weeks. REVIEW OF SYSTEMS: General: +SLE - follows with rheumatology and derm, plaquenil on hold per surgeons request per patient +obesity Negative for: unintentional weight change, malaise and fever. Neurological: No sudden visual changes. No fainting episodes. No numbness or tingling. Negative for: seizures, TIA and strokes. Respiratory: +interstitial lung disease Positive for: current cough (chronic intermittent cough, dry), dyspnea (with overexertion), tobacco use (Former), obstructive sleep apnea and CPAP/BiPAP noncompliant. Negative for: asthma, COPD and pneumonia within 6 weeks. Cardiovascular: Positive for: hyperlipidemia Negative for: chest pain, CHF, DVT/PE, hypertension, recent MD, PTCA, PVD and open heart surgery. GI: +HX sclerosing cholangitis, primary biliary cholangitis FOLLOWS WITH GI AT MA[facility] +[place]'s esophagus with dysplasia - on protonix, follows with GI Positive for: GERD (with spicey foods) and liver disease (Primary biliary cirrhosis) Negative for: dysphagia, GI bleed <30 days and ETOH >2 drinks/day. : +History positive for: Hypomagnesemia CRISTINO (acute kidney injury) (HCC) - 03/12/2024 Acute tubulo-interstitial nephritis - 03/12/2024 ON PREDNISONE, sees nephrology, Dr. Feliciano aware on prednisone per patient Negative for: dysuria, frequent urination, hematuria, urinary incontinence and nephrolithiasis. SAND WORKER: Negative for abnormal vaginal bleeding, abnormal vaginal discharge. Endocrine: Negative for: diabetes mellitus, hyperthyroidism and hypothyroidism. Hematology: +elevated WBC Positive for: anemia (advised pt to continue to follow with oncologist). Negative for: factor V Leiden, hemophilia and chronic anti-coagulation/platelet meds. Oncology: See HPI. Psych: Negative for: anxiety and depression. Musculoskeletal: Negative for: back pain, joint pain and swelling. Skin: + Cutaneous lupus erythematosus Negative for: lesions and rash. Implanted Devices: No implanted devices. PAST MEDICAL HISTORY Diagnosis Date Hemorrhage of rectum and anus HYPERLIPIDEMIA MIXED 07/10/2005 Lung nodule 06/13/2016 June 25, 2017 subcentimeter lung nodules and interstitial lung disease also stable from 2017: check CT in 1 year. Primary biliary cholangitis (HCC) Snoring Systemic lupus erythematosus (HCC) PAST SURGICAL HISTORY Procedure Laterality Date BRONCHOSCOPY 07/31/2023 COLONOSCOPY FLX DX W/COLLJ SPEC WHEN PFRMD 06/29/2016 HAD VASOVAGAL RESPONSE DURING PROCEDURE SYST BP 60'S HR 40'S-GIVEN ATROPINE CORRJ HLX VLGS BNCTY SESMDC DSTL METAR OSTEOT 1985 DIAGNOSTIC ARTHROSCOPY SHOULDER +- SYNOVIAL BX Left 04/03/2018 Left shoulder arthroscopic subacromial decompression, rotator cuff repair, and biceps tenotomy EGD 12/25/2022 repeat 2 years ESOPHAGOGASTRODUODENOSCOPY TRANSORAL DIAGNOSTIC 11/11/2018 EGD ESOPHAGOGASTRODUODENOSCOPY TRANSORAL DIAGNOSTIC 11/22/2020 repeat in 2 years FOOT SURGERY HX 1986 HYSTEROSCOPY 06/21/2017 D&C LUNG BIOPSY HX 08/24/2023 SIGMOIDOSCOPY ?2000 SKIN BIOPSY HX TONSILLECTOMY HX FAMILY HISTORY Problem Relation Age of Onset Diabetes Mother Hypertension Mother Stroke Mother other (? SFTP) Mother Heart Father age 60's other (PBC) Father None Brother Obstructive Sleep Apnea Brother Colon Cancer Paternal Grandmother Colon Cancer Paternal Grandfather Social History Tobacco Use Smoking status: Former Current packs/day: 0.00 Average packs/day: 0.2 packs/day for 30.0 years (4.5 ttl pk-yrs) Types: Cigarettes Start date: 1985 Quit date: 2016 Years since quittin.1 Smokeless tobacco: Never Tobacco comments: Pt smoked one pack a week x 30 years, quit 2016 Vaping Use Vaping status: Never Used Substance Use Topics Alcohol use: No Drug use: No Prior to Admission medications as of 03/18/24 1321 Medication Sig Last Dose Taking predniSONE (DELTASONE) 20 mg tablet Take 3 tablets by mouth once daily. Yes magnesium chloride (SLOW-MAG ORAL) Take 1 tablet by mouth two times a day. Yes cmuixhuviqPHDWC-jtodqd-zcwbvfiul (BMX 1:1:1) 1:1:1 liqd Take 5 mL by mouth every 4 hours as needed. Yes ursodiol (ACTIGALL) 300 mg capsule Take 1 capsule by mouth three times a day. Yes pantoprazole DR (PROTONIX) 40 mg tablet Take 1 tablet by mouth once daily. Yes prochlorperazine (COMPAZINE) 10 mg tablet Take 1 tablet by mouth every 6 hours as needed. For chemotherapy induced nausea and vomiting. Yes folic acid 1 mg tablet Take 1 tablet by mouth once daily. Yes cholecalciferol (VITAMIN D-3) 50 mcg (2,000 unit) tablet Take 4,000 Units by mouth once daily. Yes clotrimazole-betamethasone (LOTRISONE) lotion Betamethasone / Clotrimazole Clotrimazole/Betamethasone Dip [Clotrimazole-Betamethasone Lot] 30 ML TP NEEDED PRN For SKIN June 14, 2017 Active 06-14-2017 [facility] ([id number]) Yes tacrolimus (PROTOPIC) 0.1 % ointment Apply twice daily to affected areas on face Yes Clobetasol Propionate (TEMOVATE) 0.05 % external solution Apply to affected areas on the scalp twice a day. Dispense 100ml as 30 day supply. Yes biotin 5,000 mcg ODT Take 1 tablet by mouth once daily. Yes Calcium-Cholecalciferol, D3, 500 mg-10 mcg (400 unit) per tablet Take 1 tablet by mouth once daily. Yes triamcinolone acetonide (KENALOG) 0.1 % cream Apply to rash on body twice a day M-F, take weekends off Yes mupirocin (BACTROBAN) 2 % ointment Apply small amount of Mupirocin with a Q tip in each nostril. Apply in the morning and before bed the day before surgery . Apply third time the morning of surgery hydrOXYchloroQUINE (PLAQUENIL) 200 mg tablet Take 1 tablet by mouth two times a day. Patient not taking: Reported on 03/18/2024 albuterol HFA (PROVENTIL HFA, VENTOLIN HFA) 90 mcg/actuation inhaler Inhale 2 Puffs as instructed every 4 hours as needed. Patient not taking: Reported on 03/18/2024 No medication comments found. ALLERGIES Allergen Reactions Albuterol Other: See Comments kyra Morrison Adhesive Tape (Sammi* Itching Itching and redness Objective PHYSICAL EXAM: General: alert and oriented, healthy appearance and obese. Skin: normal color, no rash or lesions. HEENT: EOM intact. Pertinent negatives noted - no carotid bruit. Cardiovascular: regular rate and rhythm, normal S1 and S2, no rub, murmurs, or gallop. Respiratory: normal breath sounds, no wheezes or crackles. Abdomen: soft. Pertinent negatives noted - not tender. Extremities: no deformity, no edema or tenderness, no joint swelling or clubbing. Neurological: normal cognition and motor skills. PAIN ASSESSMENT: VITALS: BP 129/76 Pulse 75 Temp (Src) 97.3 (Temporal) Ht 5' 4 (1.63m) Wt 194 lb 7.1 oz (88.2kg) SpO2 98% BMI 33.36 kg/(m^2). Diagnostic tests reviewed for today's visit: Lab Value Units Date High Low HB 9.7 g/dL 03/18/2024 15.5 11.5 HCT 28.0 % 03/18/2024 46.0 36.0 WBC 13.98 k/uL 03/18/2024 11.00 3.70 PLT 199 k/uL 03/18/2024 400 150 NA 138 mmol/L 03/18/2024 144 136 K 4.5 mmol/L 03/18/2024 5.1 3.7 GLUC 90 mg/dL 03/18/2024 99 74 BUN 22 mg/dL 03/18/2024 21 7 CREAT 1.54 mg/dL 03/18/2024 0.96 0.58 PTSEC 10.9 sec 03/18/2024 13.0 9.7 INR 1.0 no uni* 03/18/2024 1.3 0.9 APTT 26.5 sec 03/18/2024 32.4 23.0 ALT 82 U/L 03/18/2024 38 7 AST 88 U/L 03/18/2024 35 13 TBILI 0.4 mg/dL 03/18/2024 1.3 0.2 TSH No results within date range. Lab Value Units Date High Low HCGQT No results within date range. UHCG No results within date range. HCG, BODY* No results within date range. Lab Value Units Date High Low ABORHD No results within date range. ABSCREEN No results within date range. Hemoglobin A1C (%) Date Value 07/08/2016 5.2 Recent Results (from the past 8760 hours) ECG COMPLETE Collection Time: 03/18/24 1:14 PM Result Value Ventricular Rate 68 Atrial Rate 68 P-R Interval 162 QRS Duration 142 QT Interval 416 QTC Calculation (Bazett) 442 Calculated P Clarington 52 Calculated R Clarington -66 Calculated T Clarington 17 Impression NORMAL SINUS RHYTHM LEFT AXIS DEVIATION COMPLETE RIGHT BUNDLE BRANCH BLOCK CANNOT EXCLUDE INFERIOR MYOCARDIAL INFARCTION , AGE UNDETERMINED ABNORMAL ECG Recent Results (from the past 25391 hours) ECHO Collection Time: 03/06/24 2:31 PM Impression CONCLUSIONS: - Technically difficult exam due to body habitus. - Exam indication: Cardiotoxicity screen before chemotherapy - The left ventricle is normal in size. Left ventricular systolic function is normal. EF = 58 5% (2D biplane) - The right ventricle is normal in size. Right ventricular systolic function is normal. - The patient has not had a prior CC echocardiographic exam for comparison. * * * Final * * * Instructions Given to Patient: Instructions located in the after visit summary. Patient given verbal and written preop instructions and voices comprehension and compliance. SIGNATURE: Nelda Chung PA-C PATIENT NAME: Vickey Schwartz DATE: March 18, 2024 TIME: 12:16 PM PAGER/CONTACT #: [facility] 03-18-2024 History and physical note Images from the original note were not included. [facility] HISTORY AND PHYSICAL EXAMINATION SERVICE DATE: 03/18/2024 SERVICE TIME: 4:28 PM PRIMARY CARE PHYSICIAN: Camilo Jonas MD Assessment Patient has the following medical conditions which may affect diana-operative course: Obesity, Class I, BMI 30-34.9 Assessment: Body mass index is 33.38 kg/m . Systemic lupus erythematosus (HCC) Assessment: follows with rheumatology and derm, plaquenil on hold per surgeons request per patient Interstitial lung disease (HCC) Assessment: no current inhaler use Spo2 98% Lungs clear RODRIGO (obstructive sleep apnea) Assessment: no CPAP/BiPAP use HYPERLIPIDEMIA MIXED Assessment: no current RX Sclerosing cholangitis Assessment: HX sclerosing cholangitis, primary biliary cholangitis Follows with GI at [facility] Milton's esophagus with dysplasia Assessment: on protonix, follows with GI GERD (gastroesophageal reflux disease) Assessment: with spicy foods. On protonix. 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 Feliciano is aware patient is on prednisone Most recent Cr Creatinine Date Value Ref Range Status 03/18/2024 1.54 (H) 0.58 - 0.96 mg/dL Final 03/12/2024 1.46 (H) 0.58 - 0.96 mg/dL Final 03/10/2024 1.61 (H) 0.58 - 0.96 mg/dL Final Elevated WBC count Assessment: WBC Date Value Ref Range Status 03/18/2024 13.98 (H) 3.70 - 11.00 k/uL Final Patient denies UTI sxs or respiratory infection sxs. No fevers. Advised patient to discuss with oncologist at their next appt. Patient is currently on prednisone. Anemia Assessment: Most recent labs below: Hemoglobin Date Value Ref Range Status 03/18/2024 9.7 (L) 11.5 - 15.5 g/dL Final 03/12/2024 10.2 (L) 11.5 - 15.5 g/dL Final 03/05/2024 10.1 (L) 11.5 - 15.5 g/dL Final 03/03/2024 10.8 (L) 11.5 - 15.5 g/dL Final 02/11/2024 11.4 (L) 11.5 - 15.5 g/dL Final Advised patient to continue to follow with oncologist Cutaneous lupus erythematosus Assessment: follows with derm, plaquenil on hold Guerrero Activity Status Index: METS: Walk indoors, such as around the house (1.75 METs) Do light work around the house, such as dusting or washing dishes (2.70 METs) Take care of self; that is eating, dressing, bathing, using the toilet (2.75 METs) Walk a block or two on level ground (2.75 METs) Do moderate work around the house, such as vacuuming, sweeping floors, or carrying in groceries (3.50 METs) Do yardwork, such as raking leaves, weeding, or pushing a power mower (4.50 METs) Climb a flight of stairs or walk up a hill (5.50 METs) DASI Score: 23.45 Patient denies any chest pain or undue shortness of breath with the above physical activity. Clinical Frailty Scale: 3. Well, with treated comorbid disease ANESTHESIA FINDINGS: Intubation History: No history of difficult intubation Significant Anesthesia Considerations: Was noted in patient's history that with colonoscopy in 2017, she had a vasovagal response during procedure, syst BP 60s and HR 40s, was given atropine. No other anesthesia problems for patient. Niece has had PONV. Airway History: No history of difficult airway I - PHYSICAL EVALUATION AIRWAY Patient intubated: No. Tracheostomy tube not present Mallampati: III. TM distance: >3 FB. Neck ROM: full ROM without neurological symptoms. Mouth opening: adequate. Short neck: yes. Thick neck: yes Tidwell present: no Lip Bite Test: II Microretrognathia/Micronagthia/Recesse d Chin: No DENTAL Dental findings: teeth intact and broken tooth. II - ANESTHESIA PLAN Anesthetic plan additional comments: - anesthesia choice. Beta Brittany Monitoring Plan Post Procedure Analgesic Plan Prepared for Surgery: optimally prepared for surgery, pending [see comment]. PENDING: ECG TODAY CXR IN PROCESS LABS IN PROCESS CONSULTS: Patient does not require consults for optimization at this time Planned Anesthetic: anesthesia choice The Following Tests/Procedures Have Been Initiated: ECG today CXR and LABS in process REASON FOR VISIT: Vickey Schwartz is a 63 year old female who is scheduled for Procedure(s): ROBOTIC THORACOSCOPY; RLL lung resection LOBECTOMY, TOTAL OR SEGMENTAL (Right) at the request of Janett Mullins MD, PhD for consultation. My final recommendation will be communicated back to the requesting physician by way of shared medical record or letter. Subjective The patient has the following: COVID-19 Immunization Status Upcoming Covid-19 Vaccine (9 - Moderna risk season) Next due on 06/02/2024 12/03/2023 Imm Admin: COVID-19 vaccine, age 12+ yr (MODERNA) 12/16/2022 Imm Admin: COVID-19 vaccine, age 12+ yr (MODERNA) 07/10/2022 Imm Admin: COVID-19 vaccine, age 12+ yr, bivalent (MODERNA) Only the first 3 history entries have been loaded, but more history exists. CHIEF COMPLAINT: Pre-op HPI: This 63 year old female with a history of malignant neoplasm of lower lobe of right lung is scheduled for the above procedure and presents to the [facility] for pre-operative examination. Patient reports she finished chemo ~02/11/2024. Has been getting keytruda every 3 weeks. REVIEW OF SYSTEMS: General: +SLE - follows with rheumatology and derm, plaquenil on hold per surgeons request per patient +obesity Negative for: unintentional weight change, malaise and fever. Neurological: No sudden visual changes. No fainting episodes. No numbness or tingling. Negative for: seizures, TIA and strokes. Respiratory: +interstitial lung disease Positive for: current cough (chronic intermittent cough, dry), dyspnea (with overexertion), tobacco use (Former), obstructive sleep apnea and CPAP/BiPAP noncompliant. Negative for: asthma, COPD and pneumonia within 6 weeks. Cardiovascular: Positive for: hyperlipidemia Negative for: chest pain, CHF, DVT/PE, hypertension, recent MD, PTCA, PVD and open heart surgery. GI: +HX sclerosing cholangitis, primary biliary cholangitis FOLLOWS WITH GI AT MAIN +Milton's esophagus with dysplasia - on protonix, follows with GI Positive for: GERD (with spicey foods) and liver disease (Primary biliary cirrhosis) Negative for: dysphagia, GI bleed <30 days and ETOH >2 drinks/day. : +History positive for: Hypomagnesemia CRISTINO (acute kidney injury) (HCC) - 03/12/2024 Acute tubulo-interstitial nephritis - 03/12/2024 ON PREDNISONE, sees nephrology, Dr. Feliciano aware on prednisone per patient Negative for: dysuria, frequent urination, hematuria, urinary incontinence and nephrolithiasis. SAND WORKER: Negative for abnormal vaginal bleeding, abnormal vaginal discharge. Endocrine: Negative for: diabetes mellitus, hyperthyroidism and hypothyroidism. Hematology: +elevated WBC Positive for: anemia (advised pt to continue to follow with oncologist). Negative for: factor V Leiden, hemophilia and chronic anti-coagulation/platelet meds. Oncology: See HPI. Psych: Negative for: anxiety and depression. Musculoskeletal: Negative for: back pain, joint pain and swelling. Skin: + Cutaneous lupus erythematosus Negative for: lesions and rash. Implanted Devices: No implanted devices. PAST MEDICAL HISTORY Diagnosis Date Hemorrhage of rectum and anus HYPERLIPIDEMIA MIXED 07/10/2005 Lung nodule 06/13/2016 June 25, 2017 subcentimeter lung nodules and interstitial lung disease also stable from 2017: check CT in 1 year. Primary biliary cholangitis (HCC) Snoring Systemic lupus erythematosus (HCC) PAST SURGICAL HISTORY Procedure Laterality Date BRONCHOSCOPY 07/31/2023 COLONOSCOPY FLX DX W/COLLJ SPEC WHEN PFRMD 06/29/2016 HAD VASOVAGAL RESPONSE DURING PROCEDURE SYST BP 60'S HR 40'S-GIVEN ATROPINE CORRJ HLX VLGS BNCTY SESMDC DSTL METAR OSTEOT 1985 DIAGNOSTIC ARTHROSCOPY SHOULDER +- SYNOVIAL BX Left 04/03/2018 Left shoulder arthroscopic subacromial decompression, rotator cuff repair, and biceps tenotomy EGD 12/25/2022 repeat 2 years ESOPHAGOGASTRODUODENOSCOPY TRANSORAL DIAGNOSTIC 11/11/2018 EGD ESOPHAGOGASTRODUODENOSCOPY TRANSORAL DIAGNOSTIC 11/22/2020 repeat in 2 years FOOT SURGERY HX 1986 HYSTEROSCOPY 06/21/2017 D&C LUNG BIOPSY HX 08/24/2023 SIGMOIDOSCOPY ?1999 SKIN BIOPSY HX TONSILLECTOMY HX FAMILY HISTORY Problem Relation Age of Onset Diabetes Mother Hypertension Mother Stroke Mother other (? SFTP) Mother Heart Father age 60's other (PBC) Father None Brother Obstructive Sleep Apnea Brother Colon Cancer Paternal Grandmother Colon Cancer Paternal Grandfather Social History Tobacco Use Smoking status: Former Current packs/day: 0.00 Average packs/day: 0.2 packs/day for 30.0 years (4.5 ttl pk-yrs) Types: Cigarettes Start date: 1985 Quit date: 2016 Years since quittin.1 Smokeless tobacco: Never Tobacco comments: Pt smoked one pack a week x 30 years, quit 2015 Vaping Use Vaping status: Never Used Substance Use Topics Alcohol use: No Drug use: No Prior to Admission medications as of 03/18/24 1321 Medication Sig Last Dose Taking predniSONE (DELTASONE) 20 mg tablet Take 3 tablets by mouth once daily. Yes magnesium chloride (SLOW-MAG ORAL) Take 1 tablet by mouth two times a day. Yes eefcgegzuhGXZVD-jidzri-bpwogfwuv (BMX 1:1:1) 1:1:1 liqd Take 5 mL by mouth every 4 hours as needed. Yes ursodiol (ACTIGALL) 300 mg capsule Take 1 capsule by mouth three times a day. Yes pantoprazole DR (PROTONIX) 40 mg tablet Take 1 tablet by mouth once daily. Yes prochlorperazine (COMPAZINE) 10 mg tablet Take 1 tablet by mouth every 6 hours as needed. For chemotherapy induced nausea and vomiting. Yes folic acid 1 mg tablet Take 1 tablet by mouth once daily. Yes cholecalciferol (VITAMIN D-3) 50 mcg (2,000 unit) tablet Take 4,000 Units by mouth once daily. Yes clotrimazole-betamethasone (LOTRISONE) lotion Betamethasone / Clotrimazole Clotrimazole/Betamethasone Dip [Clotrimazole-Betamethasone Lot] 30 ML TP NEEDED PRN For SKIN June 14, 2017 Active 06-14-2017 [facility] ([id number]) Yes tacrolimus (PROTOPIC) 0.1 % ointment Apply twice daily to affected areas on face Yes Clobetasol Propionate (TEMOVATE) 0.05 % external solution Apply to affected areas on the scalp twice a day. Dispense 100ml as 30 day supply. Yes biotin 5,000 mcg ODT Take 1 tablet by mouth once daily. Yes Calcium-Cholecalciferol, D3, 500 mg-10 mcg (400 unit) per tablet Take 1 tablet by mouth once daily. Yes triamcinolone acetonide (KENALOG) 0.1 % cream Apply to rash on body twice a day M-, take weekends off Yes mupirocin (BACTROBAN) 2 % ointment Apply small amount of Mupirocin with a Q tip in each nostril. Apply in the morning and before bed the day before surgery . Apply third time the morning of surgery hydrOXYchloroQUINE (PLAQUENIL) 200 mg tablet Take 1 tablet by mouth two times a day. Patient not taking: Reported on 03/18/2024 albuterol HFA (PROVENTIL HFA, VENTOLIN HFA) 90 mcg/actuation inhaler Inhale 2 Puffs as instructed every 4 hours as needed. Patient not taking: Reported on 03/18/2024 No medication comments found. ALLERGIES Allergen Reactions Albuterol Other: See Comments kyra Morrison Adhesive Tape (Sammi* Itching Itching and redness Objective PHYSICAL EXAM: General: alert and oriented, healthy appearance and obese. Skin: normal color, no rash or lesions. HEENT: EOM intact. Pertinent negatives noted - no carotid bruit. Cardiovascular: regular rate and rhythm, normal S1 and S2, no rub, murmurs, or gallop. Respiratory: normal breath sounds, no wheezes or crackles. Abdomen: soft. Pertinent negatives noted - not tender. Extremities: no deformity, no edema or tenderness, no joint swelling or clubbing. Neurological: normal cognition and motor skills. PAIN ASSESSMENT: VITALS: BP 129/76 Pulse 75 Temp (Src) 97.3 (Temporal) Ht 5' 4 (1.63m) Wt 194 lb 7.1 oz (88.2kg) SpO2 98% BMI 33.36 kg/(m^2). Diagnostic tests reviewed for today's visit: Lab Value Units Date High Low HB 9.7 g/dL 03/18/2024 15.5 11.5 HCT 28.0 % 03/18/2024 46.0 36.0 WBC 13.98 k/uL 03/18/2024 11.00 3.70 PLT 199 k/uL 03/18/2024 400 150 NA 138 mmol/L 03/18/2024 144 136 K 4.5 mmol/L 03/18/2024 5.1 3.7 GLUC 90 mg/dL 03/18/2024 99 74 BUN 22 mg/dL 03/18/2024 21 7 CREAT 1.54 mg/dL 03/18/2024 0.96 0.58 PTSEC 10.9 sec 03/18/2024 13.0 9.7 INR 1.0 no uni* 03/18/2024 1.3 0.9 APTT 26.5 sec 03/18/2024 32.4 23.0 ALT 82 U/L 03/18/2024 38 7 AST 88 U/L 03/18/2024 35 13 TBILI 0.4 mg/dL 03/18/2024 1.3 0.2 TSH No results within date range. Lab Value Units Date High Low HCGQT No results within date range. UHCG No results within date range. HCG, BODY* No results within date range. Lab Value Units Date High Low ABORHD No results within date range. ABSCREEN No results within date range. Hemoglobin A1C (%) Date Value 07/08/2016 5.2 Recent Results (from the past 8760 hours) ECG COMPLETE Collection Time: 03/18/24 1:14 PM Result Value Ventricular Rate 68 Atrial Rate 68 P-R Interval 162 QRS Duration 142 QT Interval 416 QTC Calculation (Bazett) 442 Calculated P Clarington 52 Calculated R Clarington -66 Calculated T Clarington 17 Impression NORMAL SINUS RHYTHM LEFT AXIS DEVIATION COMPLETE RIGHT BUNDLE BRANCH BLOCK CANNOT EXCLUDE INFERIOR MYOCARDIAL INFARCTION , AGE UNDETERMINED ABNORMAL ECG Recent Results (from the past 31179 hours) ECHO Collection Time: 03/06/24 2:31 PM Impression CONCLUSIONS: - Technically difficult exam due to body habitus. - Exam indication: Cardiotoxicity screen before chemotherapy - The left ventricle is normal in size. Left ventricular systolic function is normal. EF = 58 5% (2D biplane) - The right ventricle is normal in size. Right ventricular systolic function is normal. - The patient has not had a prior CC echocardiographic exam for comparison. * * * Final * * * Instructions Given to Patient: Instructions located in the after visit summary. Patient given verbal and written preop instructions and voices comprehension and compliance. SIGNATURE: Nelda Chung PA-C PATIENT NAME: Vickey Schwartz DATE: March 18, 2024 TIME: 12:16 PM PAGER/CONTACT #: documented in this encounter [facility] 03-18-2024 Note HNO ID: [id number] Author: JANETT FELICIANO MD, PhD Service: ? Author Type: Physician Type: Progress Notes Filed: 03/19/2024 11:40 Note Text: CHART COPY DO NOT DISCARD . Patient here today for TCI visit. . Surgery Robotic Assisted right lower lobe lung resection scheduled for 03/31/2024. . Meds allergies reviewed. Latex Allergy: No Anticoag:MVI/Supplements-last dose 03/23/2024 GLP1/SGLT2: Prednisone 20mg TID Immunosuppressants Plaquenil last dose 03/17/2024 Medport: No Preoperative instructions; NPO after midnight night prior to surgery and Listerine after brushing teeth and Hibiclens shower Patient verbalized understanding of instructions. . Last clinic note 03/06/2024 per Tessie Kaufman C.N.P. 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 CXR: 03/18/[address] CHEST 02/12/2024 IMPRESSION: 1. Interval decrease in the size of the pleural-based soft tissue mass in the right lower lobe. No evidence of acute intrathoracic pathology. MRI BRAIN 09/21/2023 IMPRESSION: No abnormal intracranial enhancement to indicate intracranial metastasis. Chronic changes and incidental findings as described. PET SCAN 07/16/2024 Outside Source . PFT: 03/06/2024 FVC (L) 3.59 2.15 2.98 3.83 120 3.66 122 2 FEV1 (L) 2.36 1.68 2.35 2.99 100 2.42 102 2 DLCOunc (ml/min/mmHg) 14.72 15.35 21.52 27.69 68 6MW: 03/06/2024 Distance Walked (meters) Distance Walked (feet) Female Predicted Walk Distance (feet) Female Lower Limit of Normal (feet) Female % Predicted Total Duration Of The Stops (seconds) 411.48 1350 1487.86 1031.86 90.7 Cardiac Studies: Echo 03/06/2024 CONCLUSIONS: - Technically difficult exam due to body habitus. - Exam indication: Cardiotoxicity screen before chemotherapy - The left ventricle is normal in size. Left ventricular systolic function is normal. EF = 58 ? 5% (2D biplane) - The right ventricle is normal in size. Right ventricular systolic function is normal. - The patient has not had a prior CC echocardiographic exam for comparison. EK03/18/2024 Clinical Staging: T: 1c N: 1 M: 0 G: NA Risk, benefits, and alternatives discussed per Janett Feliciano M.D. [facility] 03/18/2024 Films CCT, PET, and MRI BRAIN . PATIENT EDUCATION The following was evaluated: Motivation To Learn: Interested Family/Significant Other Support: High - Very involved in pt care Cognitive Ability: Alert and oriented Patient Learns Best By: Multiple Methods The Following Influencing Factors Were Barriers To This Education Session: No barriers Gluer Machine Operator Present: Not Applicable The Following Physical Limitations Were Barriers To This Education Session: None Instruction Provided To: Patient AND Family Discipline: Nursing Learning Topic: Pre-op Instructions given Patient Evaluation: Verbalizes understanding Follow Up Plan: Patient/Family will call us with questions Supplemental Material Given: TCI Patient Instructions: Thoracic Surgery Teach completed, topic: postoperative safety with teachback Instructed By Barbi An RN. In Department of THORACIC SURGERY. [facility] 03-18-2024 Note HNO ID: [id number] Author: JANETT FELICIANO MD, PhD Service: Thoracic Surgery Author Type: Physician Type: Progress Notes Filed: 04/07/2024 14:42 Note Text: [facility] Progress Note [facility]#: [id number] PATIENT TYPE: LOCATION: [facility] ORIGINATOR: Janett Feliciano M.D. DATE OF SERVICE: 03/18/2024 DATE OF SERVICE: 03/18/2024 I had the sincere pleasure of seeing Ms. Schwartz in my Thoracic Surgery Clinic. This very pleasant woman is being seen for preoperative visit. She had a locally advanced non-small cell lung cancer (clinical stage T1 N1 M0). She unfortunately has had complications from her induction of chemo immunotherapy and has developed what was thought to be an inflammatory process in her kidneys resulting in renal insufficiency. She is currently on high-dose steroids and is somewhat cushingoid at this visit. She has been on 60 mg daily for now approaching 10 days to 2 weeks. She is being seen by her local oncologist, Dr. Castle. This will need to be weaned down. She will have significant difficulties in wound healing. She does understand the risks, benefits, alternatives and personnel involved with the planned right lung resection, which will likely be a right lower lobectomy in a minimally invasive (includingrobotics) or thoracotomy would be utilized. She has consented to me at this visit. From an anesthetic standpoint, a double-lumen tube should be placed. Standard access for this type of operation should be obtained. Central venous access may need to be obtained because of patient's body habitus. If thoracotomy is used. Cryoanalgesia will be employed. Preoperative subcutaneous heparin and standard antibiotics should be given as well as 50 mg of hydrocortisone at induction. Her operation will likely be rescheduled as it was initially planned for 10 days from now. I fear that her steroids will still not be sufficiently wean for her to meet that operative date. CBA DOC: [id number] [facility] 03-14-2024 Telephone encounter Note spoke with patient via phone and reviewed medication Raisa Garcia RN [facility] 03-14-2024 Miscellaneous Notes spoke with patient via phone and reviewed medication Raisa Garcia, RN documented in this encounter [facility] 03-13-2024 Telephone encounter Note Scheduled as directed Cheli Aguero [facility] 03-13-2024 Miscellaneous Notes Scheduled as directed Cheli Aguero Spoke with pt. Given information concerning prednisone , start DESTINY sent to [facility]SS please put on lab schedule 03/20 @ 8 am. Pt. Voiced understanding. Liset Acevedo LPN Please advise her to start prednisone 60 mg PO daily as soon as able. Rx sent. Recheck BMP in a week. We will plan to taper prednisone by 10 mg weekly pending trend in creatinine. Alf Castle DO Patient calling on status of message. She is requesting a call. Per Dr. Leonard ORTEZ notes: The patient has most likely immune-check paint inhibitor induced acute kidney injury from pembrolizumab in the setting of interaction with the proton pump inhibitor pantoprazole in a patient with previous kidney disease from pemetrexed/cisplatin. I instructed the patient to go to the ER at [facility] for admission, discontinuation of pantoprazole, and initiation of intravenous methylprednisolone 48 mg IV daily or oral prednisone 60 mg by mouth daily for one week, to be tapered weekly by 10 mg of prednisone over 6 weeks (alternatively, it may be tapered quicklier by 10 mg of prednisone every 4 days over 3 weeks: https://pmc.ncbi.nlm.nih.gov/articles/ NBK6937145/). She will need treatment with intravenous famotidine instead of pantoprazole. She may need to have a kidney biopsy if there is no response to treatment. Per ED notes: Workup in the ED remarkable for creatinine of 1.46, AST 51, ALT 42, left shift in absence of leukocytosis. UA negative for UTI. Suspect patient's CRISTINO is prerenal in nature. Spoke with hematology oncology solid tumor staff on-call. Staff does not feel that patient's overall clinical picture warrants admission at this time. Creatinine has been relatively stable, and is currently down trending. She is tolerating p.o., and feels comfortable going home and following up for outpatient labs in 2 days. She has a preoperative visit scheduled for next week in anticipation of tumor resection later this month on March 31. Patient was discharged home. Will speak to Dr. Castle about the plan moving forward. Ann Randolph RN Patient went to the ER yesterday she states that sent her to the ER at [facility] ,stated that they did not see anything serious for her to stay overnight. Patient is confused with her medication. Patient is wondering about her abnormal lab results. Please call patient documented in this encounter [facility] 03-13-2024 Telephone encounter Note Spoke with pt. Given information concerning prednisone , start DESTINY sent to [facility] please put on lab schedule 03/20 @ 8 am. Pt. Voiced understanding. Liset Acevedo LPN [facility] 03-13-2024 Telephone encounter Note Please advise her to start prednisone 60 mg PO daily as soon as able. Rx sent. Recheck BMP in a week. We will plan to taper prednisone by 10 mg weekly pending trend in creatinine. Alf Castle DO [facility] 03-13-2024 Telephone encounter Note Patient calling on status of message. She is requesting a call. [facility] Work Phone: 03-13-2024 Telephone encounter Note Per Dr. Leonard ORTEZ notes: The patient has most likely immune-check paint inhibitor induced acute kidney injury from pembrolizumab in the setting of interaction with the proton pump inhibitor pantoprazole in a patient with previous kidney disease from pemetrexed/cisplatin. I instructed the patient to go to the ER at [facility] for admission, discontinuation of pantoprazole, and initiation of intravenous methylprednisolone 48 mg IV daily or oral prednisone 60 mg by mouth daily for one week, to be tapered weekly by 10 mg of prednisone over 6 weeks (alternatively, it may be tapered quicklier by 10 mg of prednisone every 4 days over 3 weeks: https://pmc.ncbi.nlm.nih.gov/articles/ NSS2041816/). She will need treatment with intravenous famotidine instead of pantoprazole. She may need to have a kidney biopsy if there is no response to treatment. Per ED notes: Workup in the ED remarkable for creatinine of 1.46, AST 51, ALT 42, left shift in absence of leukocytosis. UA negative for UTI. Suspect patient's CRISTINO is prerenal in nature. Spoke with hematology oncology solid tumor staff on-call. Staff does not feel that patient's overall clinical picture warrants admission at this time. Creatinine has been relatively stable, and is currently down trending. She is tolerating p.o., and feels comfortable going home and following up for outpatient labs in 2 days. She has a preoperative visit scheduled for next week in anticipation of tumor resection later this month on March 31. Patient was discharged home. Will speak to Dr. Castle about the plan moving forward. Ann Randolph RN [facility] 03-13-2024 Telephone encounter Note Patient went to the ER yesterday she states that sent her to the ER at [facility] ER ,stated that they did not see anything serious for her to stay overnight. Patient is confused with her medication. Patient is wondering about her abnormal lab results. Please call patient [facility] 03-12-2024 History of Present illness Narrative Images from the original note were not included. Department of Kidney Medicine Medical Specialties [place] NEPHROLOGY CONSULT NOTE Patient Name: Vickey Schwartz Consultation requested by Alf Castle DO (Camilo Jonas MD) for an opinion regarding: CRISTINO My final recommendations will be communicated back to the requesting physician by way of shared Medical record or letter to requesting physician via US mail. CHIEF COMPLAINT: CRISTINO HPI: 63 y/o female with h/o obesity class 1 (BMI 32.65), bilateral SNHL, bilateral hearting aids since first grade; HLD, PBC, SLE on hydroxychloroquine; alopecia, UIP, RODRIGO not on treatment; ex-smoker (7 pack-years; quit in 2015); pulmonary nodules, poorly differentiated NSCLC favoring adenocarcinoma ([id number], stage IIB) of the RLL planned for surgical resection on 03/31/24 (NGS/biomarkers/flatbed truck driver mutation analysis: no flatbed truck driver mutations; PRAF p([id number]) variant of potential significance Tier II); s/p 4 cycles of neoadjuvant chemotherapy and immunotherapy with cisplatin, pemetrexed, and pembrolizumab (she's had approximately 50% decrease in tumor size per CT on 02/12/24) c/b hypomagnesemia and CRISTINO (cisplatin was omitted on cycles 3 and 4 due to CRISTINO; last dose of pembrolizumab on 03/03/24 and scheduled for next dose on 03/24/24); who was referred for evaluation of CRISTINO. She has been instructed to stop hydroxychloroquine 2 weeks before her lung surgery (last dose on 03/16/24). Duration (when): since 12/17/23 Location (where): the kidneys Severity (ex: creat 4.5, BP 200/100): serum creatinine 1.61 on 03/10/24 (baseline serum creatinine 0.58 to 0.66) Quality (ex: sharp, dull): acute Context (ex: activity at onset or related to condition): secondary to pembrolizumab and pantoprazole Timing (ex: continuous, intermittent): continuous Modifying factors (ex: medications, interventions): pembrolizumab and pantoprazole in a patient with kidney disease from pemetrexed Associated signs & symptoms (ex: edema, SOB): azotemia The patient has a voice recorder running during the encounter (she states it helps her remember what happened during the office visit and the instructions). PAST MEDICAL HISTORY: PAST MEDICAL HISTORY Diagnosis Date Hemorrhage of rectum and anus HYPERLIPIDEMIA MIXED 07/10/2005 Lung nodule 06/13/2016 June 25, 2017 subcentimeter lung nodules and interstitial lung disease also stable from 2017: check CT in 1 year. Primary biliary cholangitis (HCC) Snoring Systemic lupus erythematosus (HCC) PAST SURGICAL HISTORY: PAST SURGICAL HISTORY Procedure Laterality Date BRONCHOSCOPY 07/31/2023 COLONOSCOPY FLX DX W/COLLJ SPEC WHEN PFRMD 06/29/2016 HAD VASOVAGAL RESPONSE DURING PROCEDURE SYST BP 60'S HR 40'S-GIVEN ATROPINE CORRJ HLX VLGS BNCTY SESMDC DSTL METAR OSTEOT 1985 DIAGNOSTIC ARTHROSCOPY SHOULDER +- SYNOVIAL BX Left 04/03/2018 Left shoulder arthroscopic subacromial decompression, rotator cuff repair, and biceps tenotomy EGD 12/25/2022 repeat 2 years ESOPHAGOGASTRODUODENOSCOPY TRANSORAL DIAGNOSTIC 11/11/2018 EGD ESOPHAGOGASTRODUODENOSCOPY TRANSORAL DIAGNOSTIC 11/22/2020 repeat in 2 years FOOT SURGERY HX 1986 HYSTEROSCOPY 06/21/2017 D&C LUNG BIOPSY HX 08/24/2023 SIGMOIDOSCOPY ?2000 SKIN BIOPSY HX TONSILLECTOMY HX FAMILY HISTORY: FAMILY HISTORY Problem Relation Age of Onset Diabetes Mother Hypertension Mother Stroke Mother other (? SFTP) Mother Heart Father age 60's other (PBC) Father None Brother Obstructive Sleep Apnea Brother Colon Cancer Paternal Grandmother Colon Cancer Paternal Grandfather Anesthesia Problems No Family History SOCIAL HISTORY: Social History Tobacco Use Smoking status: Former Current packs/day: 0.00 Average packs/day: 0.2 packs/day for 30.0 years (4.5 ttl pk-yrs) Types: Cigarettes Start date: 1985 Quit date: 2016 Years since quittin.1 Smokeless tobacco: Never Tobacco comments: Pt smoked one pack a week x 30 years, quit 2016 Vaping Use Vaping status: Never Used Substance Use Topics Alcohol use: No Drug use: No MEDICATIONS: magnesium chloride (SLOW-MAG ORAL) Take 1 tablet by mouth two times a day. hydrOXYchloroQUINE (PLAQUENIL) 200 mg tablet Take 1 tablet by mouth two times a day. nzpafvrituLXZSG-bqrqja-kvehzmnto (BMX 1:1:1) 1:1:1 liqd Take 5 mL by mouth every 4 hours as needed. ursodiol (ACTIGALL) 300 mg capsule Take 1 capsule by mouth three times a day. pantoprazole DR (PROTONIX) 40 mg tablet Take 1 tablet by mouth once daily. prochlorperazine (COMPAZINE) 10 mg tablet Take 1 tablet by mouth every 6 hours as needed. For chemotherapy induced nausea and vomiting. folic acid 1 mg tablet Take 1 tablet by mouth once daily. cholecalciferol (VITAMIN D-3) 50 mcg (2,000 unit) tablet Take 4,000 Units by mouth once daily. albuterol HFA (PROVENTIL HFA, VENTOLIN HFA) 90 mcg/actuation inhaler Inhale 2 Puffs as instructed every 4 hours as needed. clotrimazole-betamethasone (LOTRISONE) lotion Betamethasone / Clotrimazole Clotrimazole/Betamethasone Dip [Clotrimazole-Betamethasone Lot] 30 ML TP NEEDED PRN For SKIN June 14, 2017 Active 06-14-2017 [facility] ([id number]) tacrolimus (PROTOPIC) 0.1 % ointment Apply twice daily to affected areas on face Clobetasol Propionate (TEMOVATE) 0.05 % external solution Apply to affected areas on the scalp twice a day. Dispense 100ml as 30 day supply. biotin 5,000 mcg ODT Take 1 tablet by mouth once daily. Calcium-Cholecalciferol, D3, 500 mg-10 mcg (400 unit) per tablet Take 1 tablet by mouth once daily. triamcinolone acetonide (KENALOG) 0.1 % cream Apply to rash on body twice a day M-F, take weekends off ALLERGIES: ALLERGIES Allergen Reactions Adhesive Tape (Sammi* Itching Itching and redness ROS: PAIN ASSESSMENT: Negative for pain. No NSAIDs CONSTITUTIONAL: Positive for obesity. No weight loss, malaise, fevers or chills. No falls HEENT: Positive for bilateral hearing impairment. She wears hearing aids since first grade, No headaches, blurry vision, epistaxis or sore throat NECK: no neck pain, mass or stiffness RESPIRATORY: Negative for cough, hemoptysis, wheezing or shortness of breath CARDIOVASCULAR: Negative for chest pain, orthopnea, palpitations, or edema GASTROINTESTINAL: Negative for nausea, vomiting, and diarrhea. No hematemesis, hematochezia, melena or constipation GENITOURINARY: Negative for dysuria or hematuria SKIN: Negative for lesions, rash, and itching NEURO: Positive for headaches. No aphasia, dysarthria, syncope, paralysis, seizures or tremors MUSCULOSKELETAL: No joint swelling or back pain ENDOCRINE: No polydipsia or polyphagia HEMATOLOGIC: No bleeding. No easy bruising LYMPHATIC: No generalized lymphadenopathy IMMUNOLOGIC: She took the hepatitis B vaccine on 12/30/18, 02/07/19, and 07/10/19. She took the RSV vaccine on 01/11/23. Her last influenza vaccine wa on 12/03/23. She took the CoVID-19 vaccine on 04/22/20, 05/20/20, 12/09/20, 06/04/21, 10/19/21, 07/10/22, 12/16/22, and 12/03/23 VITAL SIGNS: BP 117/55 Pulse 79 Temp (Src) 97.3 (Oral) Resp 16 Ht 5' 4 (1.63m) Wt 193 lb 12.6 oz (87.9kg) SpO2 98% BMI 33.25 kg/(m^2). PHYSICAL EXAM: GENERAL: Pleasant, short, adult female with BMI 33.26, alert, in no acute distress, cooperative, has normal gait SKIN: Skin color, texture, turgor normal. No rashes or lesions. HEENT: normocephalic, perrl, eomi, has bilateral hearing aids in place, has face mask in place NECK: no JVD, masses or bruits LUNGS: clear to auscultation. Good diaphragmatic excursion and normal respiratory effort. CARDIAC: RRR S1S2, no S3 or rub ABDOMEN: Obese, soft, non-tender, non-distended. Normal bowel sounds. No bruits BACK: no CVAT EXTREMITIES: No edema, no joint swelling NEURO: AOx3, normal speech, muscle strength grossly intact PSYCH: Normal mood and affect PULSES: 2+ radial LABS: Hemoglobin (g/dL) Date Value 03/05/2024 10.1 10/25/2020 14.9 Hematocrit (%) Date Value 03/05/2024 28.7 10/25/2020 44.8 WBC (k/uL) Date Value 03/05/2024 10.25 10/25/2020 7.73 Glucose (mg/dL) Date Value 03/10/2024 84 01/18/2021 90 Potassium (mmol/L) Date Value 03/10/2024 4.3 01/18/2021 3.7 Sodium (mmol/L) Date Value 03/10/2024 137 01/18/2021 135 Chloride (mmol/L) Date Value 03/10/2024 98 01/18/2021 100 CO2 (mmol/L) Date Value 03/10/2024 27 01/18/2021 25 Creatinine (mg/dL) Date Value 03/10/2024 1.61 01/18/2021 0.70 BUN (mg/dL) Date Value 03/10/2024 24 01/18/2021 10 Anion Gap (mmol/L) Date Value 03/10/2024 12 01/18/2021 10 Calcium (mg/dL) Date Value 01/18/2021 9.5 Calcium, Total (mg/dL) Date Value 03/10/2024 10.8 Protein, Total (g/dL) Date Value 03/10/2024 8.6 01/18/2021 7.6 Albumin (g/dL) Date Value 03/10/2024 4.6 01/18/2021 4.2 Bilirubin, Total (mg/dL) Date Value 03/10/2024 0.5 01/18/2021 0.3 Alkaline Phosphatase (U/L) Date Value 03/10/2024 136 01/18/2021 159 AST (U/L) Date Value 03/10/2024 53 01/18/2021 29 ALT (U/L) Date Value 03/10/2024 42 01/18/2021 32 pH, Urine Date Value Ref Range Status 03/10/2024 5.5 <8.5 Final Specific [place], Ur Date Value Ref Range Status 03/10/2024 1.015 1.005 - 1.030 Final Glucose, Urine Date Value Ref Range Status 03/10/2024 Negative Negative Final Bilirubin, Urine Date Value Ref Range Status 03/10/2024 Negative Negative Final Ketones, Urine Date Value Ref Range Status 03/10/2024 Negative Negative Final Hemoglobin/Blood,Ur Date Value Ref Range Status 03/10/2024 Negative Negative Final Protein, Urine Date Value Ref Range Status 03/10/2024 Trace (A) Negative Final Urobilinogen Date Value Ref Range Status 03/10/2024 0.2 EU/dL 0.2-1.0 EU/dL Final Nitrites Date Value Ref Range Status 03/10/2024 Negative Negative Final WBC, Urine Date Value Ref Range Status 03/10/2024 11-20 /HPF (A) 0-5 /HPF Final UA DIP, URINE (POC) Order: [id number] Status: Final result Component Ref Range & Units 2:45 PM GLUCOSE UA (POCT) Negative mg/dL Negative BILIRUBIN UA (POCT) Negative Negative KETONE UA (POCT) Negative mg/dL Negative SPECIFIC GRAVITY UA (POCT) 1.005 - 1.030 1.020 HEMOGLOBIN/BLOOD UA (POCT) Negative Negative PH UA (POCT) 4.5 - 8.0 5.5 PROTEIN UA (POCT) Negative mg/dL Negative UROBILINOGEN UA (POCT) Normal E.U./dL 0.2 NITRITE UA (POCT) Negative Negative LEUKOCYTES UA (POCT) Negative Trace Abnormal COLOR UA (POCT) Yellow CLARITY UA (POCT) Clear Resulting Agency [facility] Narrative Performed by: [facility] Location:[facility], [address] [place] [address], [id number] Specimen Collected: 03/12/24 2:45 PM EST Last Resulted: 03/12/24 2:45 PM EST Urine Microscopy Findings March 12, 2024 4:07 PM RBCs- Average Number of Cells/HPF: 0 HPF Description: Not Applicable WBCs- Average Number of Cells/HPF: 3-5/HPF CASTS- Average Number/LPF: Occasional/LPF Types of Casts: Fine Granular Comments- Additional Findings: Many Epithelial Cells: Renal Tubular and Transitional Provider: Palomo Lal MD Reference Range: WBC 0-5/HPF RBC 0-3/HPF Casts 0 Bacteria Negative Yeast Negative Epithelial Cells None Seen Crystals None Seen Trichomonas None Seen Lab Address: [facility] [address] [place] [address]/[address] [place] [address] ASSESSMENT: 63 y/o female with h/o obesity class 1 (BMI 32.65), bilateral SNHL, bilateral hearting aids since first grade; HLD, PBC, SLE on hydroxychloroquine; alopecia, UIP, RODRIGO not on treatment; ex-smoker (7 pack-years; quit in 2016); pulmonary nodules, poorly differentiated NSCLC favoring adenocarcinoma (P3xV1V2, stage IIB) of the RLL planned for surgical resection on 03/31/24 (NGS/biomarkers/flatbed truck driver mutation analysis: no flatbed truck driver mutations; PRAF p([id number]) variant of potential significance Tier II); s/p 4 cycles of neoadjuvant chemotherapy and immunotherapy with cisplatin, pemetrexed, and pembrolizumab (she's had approximately 50% decrease in tumor size per CT on 02/12/24) c/b hypomagnesemia and CRISTINO (cisplatin was omitted on cycles 3 and 4 due to CRISTINO; last dose of pembrolizumab on 03/03/24 and scheduled for next dose on 03/24/24); who was referred for evaluation of CRISTINO. 1. CRISTINO (acute kidney injury) (HCC) - ICD9: 584.9, ICD10: N17.9. The patient has most likely immune-check paint inhibitor induced acute kidney injury from pembrolizumab in the setting of interaction with the proton pump inhibitor pantoprazole in a patient with previous kidney disease from pemetrexed/cisplatin. I instructed the patient to go to the ER at [facility] for admission, discontinuation of pantoprazole, and initiation of intravenous methylprednisolone 48 mg IV daily or oral prednisone 60 mg by mouth daily for one week, to be tapered weekly by 10 mg of prednisone over 6 weeks (alternatively, it may be tapered quicklier by 10 mg of prednisone every 4 days over 3 weeks: https://pmc.ncbi.nlm.nih.gov/articles/ CQX3309407/). She will need treatment with intravenous famotidine instead of pantoprazole. She may need to have a kidney biopsy if there is no response to treatment. 2. Acute tubulo-interstitial nephritis - ICD9: 580.89, ICD10: N10. The patient has most likely immune-check paint inhibitor induced acute kidney injury from pembrolizumab in the setting of interaction with the proton pump inhibitor pantoprazole in a patient with previous kidney disease from pemetrexed/cisplatin. I instructed the patient to go to the ER at [facility] for admission, discontinuation of pantoprazole, and initiation of intravenous methylprednisolone 48 mg IV daily or oral prednisone 60 mg by mouth daily for one week, to be tapered weekly by 10 mg of prednisone over 6 weeks (alternatively, it may be tapered quicklier by 10 mg of prednisone every 4 days over 3 weeks: https://pmc.ncbi.nlm.nih.gov/articles/ KLX4534304/). She will need treatment with intravenous famotidine instead of pantoprazole. She may need to have a kidney biopsy if there is no response to treatment. 3. Non-small cell cancer of right lung (HCC) - ICD9: 162.9, ICD10: C34.91. She has poorly differentiated NSCLC favoring adenocarcinoma ([id number], stage IIB) of the RLL planned for surgical resection on 03/31/24 (NGS/biomarkers/flatbed truck driver mutation analysis: no flatbed truck driver mutations; PRAF p([id number]) variant of potential significance Tier II); s/p 4 cycles of neoadjuvant chemotherapy and immunotherapy with cisplatin, pemetrexed, and pembrolizumab (she's had approximately 50% decrease in tumor size per CT on 02/12/24) c/b hypomagnesemia and CRISTINO (cisplatin was omitted on cycles 3 and 4 due to CRISTINO; last dose of pembrolizumab on 03/03/24 and scheduled for next dose on 03/24/24). There is no need to stop hydroxychloroquine 2 weeks prior to surgery. It is not a potent immunosuppressant but an immunomodulator and it doesn't interfere with wound healing or increased risk of wound infection. Continuation of hydroxychloroquine is beneficial (it decreases the risk of cardiovascular events, thromboembolic events and lupus flares in patients with SLE: https://pmc.ncbi.nlm.nih.gov/articles/ PMK7034935/). PLAN: -I instructed the patient to go to the ER at [facility] for evaluation and treatment of CRISTINO, and admission to the hospital. She may need to get a kidney biopsy. -RTC in 3 months. Time spent in direct contact with the patient, counseling and coordination of care over 60 minutes. Greater than 50% of the visit was spent with face to face counselling, discussion of the above topics, and coordination of care. All questions answered. Thank you for allowing us to participate in her care. Palomo Lal MD Staff Nephrology and Hypertension March 12, 2024 8:30 AM CC: DO Boaz Bhagat DO William J Lago, MD documented in this encounter [facility] 03-12-2024 Note HNO ID: [id number] Author: PALOMO JOSEPH MD Service: ? Author Type: Physician Type: Progress Notes Filed: 03/12/2024 16:28 Note Text: Department of Kidney Medicine Medical Specialties [place] NEPHROLOGY CONSULT NOTE Patient Name: Vickey Schwartz Consultation requested by Alf Castle DO (Camilo Jonas MD) for an opinion regarding: CRISTINO My final recommendations will be communicated back to the requesting physician by way of shared Medical record or letter to requesting physician via US mail. CHIEF COMPLAINT: CRISTINO HPI: 63 y/o female with h/o obesity class 1 (BMI 32.65), bilateral SNHL, bilateral hearting aids since first grade; HLD, PBC, SLE on hydroxychloroquine; alopecia, UIP, RODRIGO not on treatment; ex-smoker (7 pack-years; quit in 2016); pulmonary nodules, poorly differentiated NSCLC favoring adenocarcinoma ([id number], stage IIB) of the RLL planned for surgical resection on 03/31/24 (NGS/biomarkers/flatbed truck driver mutation analysis: no flatbed truck driver mutations; PRAF p([id number]) variant of potential significance Tier II); s/p 4 cycles of neoadjuvant chemotherapy and immunotherapy with cisplatin, pemetrexed, and pembrolizumab (she's had approximately 50% decrease in tumor size per CT on 02/12/24) c/b hypomagnesemia and CRISTINO (cisplatin was omitted on cycles 3 and 4 due to CRISTINO; last dose of pembrolizumab on 03/03/24 and scheduled for next dose on 03/24/24); who was referred for evaluation of CRISTINO. She has been instructed to stop hydroxychloroquine 2 weeks before her lung surgery (last dose on 03/16/24). Duration (when): since 12/17/23 Location (where): the kidneys Severity (ex: creat 4.5, BP 200/100): serum creatinine 1.61 on 03/10/24 (baseline serum creatinine 0.58 to 0.66) Quality (ex: sharp, dull): acute Context (ex: activity at onset or related to condition): secondary to pembrolizumab and pantoprazole Timing (ex: continuous, intermittent): continuous Modifying factors (ex: medications, interventions): pembrolizumab and pantoprazole in a patient with kidney disease from pemetrexed Associated signs AND symptoms (ex: edema, SOB): azotemia The patient has a voice recorder running during the encounter (she states it helps her remember what happened during the office visit and the instructions). PAST MEDICAL HISTORY: PAST MEDICAL HISTORY Diagnosis Date Hemorrhage of rectum and anus HYPERLIPIDEMIA MIXED 07/10/2005 Lung nodule 06/13/2016 June 25, 2017 subcentimeter lung nodules and interstitial lung disease also stable from 2017: check CT in 1 year. Primary biliary cholangitis (HCC) Snoring Systemic lupus erythematosus (HCC) PAST SURGICAL HISTORY: PAST SURGICAL HISTORY Procedure Laterality Date BRONCHOSCOPY 07/31/2023 COLONOSCOPY FLX DX W/COLLJ SPEC WHEN PFRMD 06/29/2016 HAD VASOVAGAL RESPONSE DURING PROCEDURE SYST BP 60'S HR 40'S-GIVEN ATROPINE CORRJ HLX VLGS BNCTY SESMDC DSTL METAR OSTEOT 1986 DIAGNOSTIC ARTHROSCOPY SHOULDER +- SYNOVIAL BX Left 04/03/2018 Left shoulder arthroscopic subacromial decompression, rotator cuff repair, and biceps tenotomy EGD 12/25/2022 repeat 2 years ESOPHAGOGASTRODUODENOSCOPY TRANSORAL DIAGNOSTIC 11/11/2018 EGD ESOPHAGOGASTRODUODENOSCOPY TRANSORAL DIAGNOSTIC 11/22/2020 repeat in 2 years FOOT SURGERY HX 1985 HYSTEROSCOPY 06/21/2017 [facility] LUNG BIOPSY HX 08/24/2023 SIGMOIDOSCOPY ?1999 SKIN BIOPSY HX TONSILLECTOMY HX FAMILY HISTORY: FAMILY HISTORY Problem Relation Age of Onset Diabetes Mother Hypertension Mother Stroke Mother other (? SFTP) Mother Heart Father age 60's other (PBC) Father None Brother Obstructive Sleep Apnea Brother Colon Cancer Paternal Grandmother Colon Cancer Paternal Grandfather Anesthesia Problems No Family History SOCIAL HISTORY: Social History Tobacco Use Smoking status: Former Current packs/day: 0.00 Average packs/day: 0.2 packs/day for 30.0 years (4.5 ttl pk-yrs) Types: Cigarettes Start date: 1985 Quit date: 2015 Years since quittin.1 Smokeless tobacco: Never Tobacco comments: Pt smoked one pack a week x 30 years, quit 2015 Vaping Use Vaping status: Never Used Substance Use Topics Alcohol use: No Drug use: No MEDICATIONS: magnesium chloride (SLOW-MAG ORAL) Take 1 tablet by mouth two times a day. hydrOXYchloroQUINE (PLAQUENIL) 200 mg tablet Take 1 tablet by mouth two times a day. nlwiukcujqDORCD-vprsqn-gyrrpzzqb (BMX 1:1:1) 1:1:1 liqd Take 5 mL by mouth every 4 hours as needed. ursodiol (ACTIGALL) 300 mg capsule Take 1 capsule by mouth three times a day. pantoprazole DR (PROTONIX) 40 mg tablet Take 1 tablet by mouth once daily. prochlorperazine (COMPAZINE) 10 mg tablet Take 1 tablet by mouth every 6 hours as needed. For chemotherapy induced nausea and vomiting. folic acid 1 mg tablet Take 1 tablet by mouth once daily. cholecalciferol (VITAMIN D-3) 50 mcg (2,000 unit) tablet Take 4,000 Units by mouth once daily. albuterol (more content not included)... [facility] 03-12-2024 Telephone encounter Note Pt notified. 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 She is going to attempt to make it to todays apt and cancel the April apt. Jackie Mehta LPN [facility] 03-12-2024 Miscellaneous Notes Pt notified. 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 She is going to attempt to make it to todays apt and cancel the April apt. Jackie Mehta LPN Please let her know that her kidney function is still somewhat abnormal so I am going to make a referral to one of the kidney specialist that manages patients who may have kidney injury secondary to immunotherapy. Order filed. Alf Castle DO documented in this encounter [facility] 03-11-2024 Telephone encounter Note Please let her know that her kidney function is still somewhat abnormal so I am going to make a referral to one of the kidney specialist that manages patients who may have kidney injury secondary to immunotherapy. Order filed. Alf Castle DO [facility] 03-10-2024 Note [facility] 03-10-2024 History of Present illness Narrative Clinical Research Study - Orthopaedic & Rheumatologic [place] IRB# [id number] Title: Lupus Registry PI: Dr Miriam Schwartz completed follow-up #2 today, March 10, 2024, Questionnaires and labs for this registry were completed. Cristo De La Rosa Research Coordinator - Rheumatic and Immunologic Diseases Pager: [phone] documented in this encounter [facility] 03-10-2024 History of Present illness Narrative Images from the original note were not included. [facility] [place] DEPARTMENT OF RHEUMATIC AND IMMUNOLOGIC DISEASES SUBJECTIVE: Reason for visit: SLE Brief History of Present Illness: Vickey Schwartz is a 63 year old female with PMHx significant for primary biliary cirrhosis (diagnosed 2015), hyperlipidemia and poorly differentiated non-small cell carcinoma who is evaluated in the Rheumatology Clinic for SLE. She has been previously seen by Dr. Padgett 09/01/2019. Background history: 06/18/[address] Luque. She states she had been having joint pain in April-June 2017, but she did not have any skin rashes over the face at that time. The joint pain was located in the knees and elbows bilaterally, and went away after 2 months. Did not notice any red hot or swollen joints at that time. No morning stiffness at that time, and pain did not change much over the course of the day. She did have some skin rash (red at that time) over the forearms and trunks. Her rash then spread to the face after her 06/18/17 rheumatology appointment, and she was referred to derm. 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 She was also started on plaquenil on 03/01/18 On 05/13/18, Dr. Montesinos (derm) noted increased hair loss over the scalp, and had been experiencing increased photosensitivity. She is getting creams and lotions for her skin rash, which has been helpful. She does note increased stains of hyperpigmentation over areas where the prior rash had occurred. Patient notes that it has been years since she has been more sensitive to sunlight. She states in the past she may get hives from being in the sun. 11/2021 she was diligent about sun protection, still taking HCQ 2 tablets/daily. 09/2022 when she was doing well. She has since had repeat PFTs which were normal 12/2022. She has been feeling well without shortness of breath, joint pain, mucosal ulcers, photosensitivity, pleurisy or chest pain. A CT chest done in June 2023 demonstrated an interval new 13 x 19 mm right lower lobe subpleural nodule. She underwent a CT-guided biopsy of the right lower lobe nodule. Pathology demonstrated poorly differentiated non-small cell carcinoma favoring adenocarcinoma. 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 CT has been stable and pulmonary function tests do not show restriction or low diffusing capacity. Patient prefers pulmonary follow-up closer to home. Patient is asymptomatic so antifibrotic therapy has been on hold. 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 She denies significant dyspnea except for with extreme activity. Chronic cough or sputum production. No wheezing. She used to smoke a pack a week but quit in 2015 when she had note of a small nodule on chest CT. Today she states that she continues to do well. Per my direct communication with pulm: she has mild, Chest CT with probable UIP pattern. Stable since 2019. No symptoms, normal PFTs. We discussed possible progression over time. Hold off on Rx for now. She is now undergoing preoperative chemotherapy and immunotherapy with cisplatin, pemetrexed and pembrolizumab. Cisplatin omitted cycles 3 and 4 due to CRISTINO. As of 02/2024 she has had ~50% decrease in tumor size. She will undergo planned resection surgery 03/31/2024. She has been doing well from a lupus perspective. She is fatigued and worn down. No SLE symptoms; On review of SHADI+ spectrum, patient denies Raynaud s, alopecia, sicca, malar rashes, scarring/dispigmented discoid rashes, dysphagia, or mucosal ulcers. Answers submitted by the patient for this visit: Review of Systems Rheumatology (Submitted on 03/04/2024) Fever : No Recent unintentional weight change: No Eye pain: No Eye redness: No Vision Disturbance: No Eye Dryness: No Nosebleeds: No Sores in your mouth: Yes Trouble Swallowing: No Dry Mouth: Yes Chest pain: No Leg Swelling: No A cough: No Shortness of breath: No Pain with breathing: No Heartburn: No Abdominal pain: No Diarrhea: No Black tarry stools: No Blood in urine: No Pain or burning with urination: No Joint pain or stiffness: No Muscle weakness: No Muscle aches: Yes Joint swelling: No Morning Stiffness in Joints: No A rash: No Skin Color Changes: No Hair Loss: No Nail Changes: No Headaches: No Numbness: No Memory Loss: No Swollen Glands: No PMHx: PAST MEDICAL HISTORY Diagnosis Date Hemorrhage of rectum and anus HYPERLIPIDEMIA MIXED 07/10/2005 Lung nodule 06/13/2016 June 25, 2017 subcentimeter lung nodules and interstitial lung disease also stable from 2017: check CT in 1 year. Primary biliary cholangitis (HCC) Snoring Systemic lupus erythematosus (HCC) PSHx: PAST SURGICAL HISTORY Procedure Laterality Date BRONCHOSCOPY 07/31/2023 COLONOSCOPY FLX DX W/COLLJ SPEC WHEN PFRMD 06/29/2016 HAD VASOVAGAL RESPONSE DURING PROCEDURE SYST BP 60'S HR 40'S-GIVEN ATROPINE CORRJ HLX VLGS BNCTY SESMDC DSTL METAR OSTEOT 1985 DIAGNOSTIC ARTHROSCOPY SHOULDER +- SYNOVIAL BX Left 04/03/2018 Left shoulder arthroscopic subacromial decompression, rotator cuff repair, and biceps tenotomy EGD 12/25/2022 repeat 2 years ESOPHAGOGASTRODUODENOSCOPY TRANSORAL DIAGNOSTIC 11/11/2018 EGD ESOPHAGOGASTRODUODENOSCOPY TRANSORAL DIAGNOSTIC 11/22/2020 repeat in 2 years FOOT SURGERY HX 1986 HYSTEROSCOPY 06/21/2017 [facility] LUNG BIOPSY HX 08/24/2023 SIGMOIDOSCOPY ?2000 SKIN BIOPSY HX TONSILLECTOMY HX MEDICATIONS: magnesium chloride (SLOW-MAG ORAL) Take 1 tablet by mouth two times a day. hydrOXYchloroQUINE (PLAQUENIL) 200 mg tablet Take 1 tablet by mouth two times a day. dopuegcqvxJOGMM-wywkpl-ocrvlsdlg (BMX 1:1:1) 1:1:1 liqd Take 5 mL by mouth every 4 hours as needed. ursodiol (ACTIGALL) 300 mg capsule Take 1 capsule by mouth three times a day. pantoprazole DR (PROTONIX) 40 mg tablet Take 1 tablet by mouth once daily. prochlorperazine (COMPAZINE) 10 mg tablet Take 1 tablet by mouth every 6 hours as needed. For chemotherapy induced nausea and vomiting. folic acid 1 mg tablet Take 1 tablet by mouth once daily. cholecalciferol (VITAMIN D-3) 50 mcg (2,000 unit) tablet Take 4,000 Units by mouth once daily. albuterol HFA (PROVENTIL HFA, VENTOLIN HFA) 90 mcg/actuation inhaler Inhale 2 Puffs as instructed every 4 hours as needed. clotrimazole-betamethasone (LOTRISONE) lotion Betamethasone / Clotrimazole Clotrimazole/Betamethasone Dip [Clotrimazole-Betamethasone Lot] 30 ML TP NEEDED PRN For SKIN June 14, 2017 Active 06-14-2017 [facility] ([id number]) Clobetasol Propionate (TEMOVATE) 0.05 % external solution Apply to affected areas on the scalp twice a day. Dispense 100ml as 30 day supply. biotin 5,000 mcg ODT Take 1 tablet by mouth once daily. Calcium-Cholecalciferol, D3, 500 mg-10 mcg (400 unit) per tablet Take 1 tablet by mouth once daily. triamcinolone acetonide (KENALOG) 0.1 % cream Apply to rash on body twice a day M-, take weekends off tacrolimus (PROTOPIC) 0.1 % ointment Apply twice daily to affected areas on face ALLERGIES: ALLERGIES Allergen Reactions Adhesive Tape (Sammi* Itching Itching and redness OBJECTIVE: Physical Examination: Vitals: BP 127/71 Pulse 90 Temp 36.4 C (97.5 F) (Temporal) Ht 163.3 cm (5' 4.3) Wt 87.1 kg (192 lb 0.3 oz) BMI 32.65 kg/m General: Looks well, NAD, A & Ox3. HEENT: No facial rash. + alopecia. Neck: No LAD. CVS: RRR, nl S1/S2, no R/M/G, Resp: CTAB. No rales or wheezing. Ext: No edema. Neuro: Gait Normal. Skin: No rash. No ulcers. Musculoskeletal: Shoulders: No swelling, no tenderness, good ROM Elbows: No swelling, no tenderness, no nodules, good ROM Wrists: No swelling, no tenderness, no limitation in flexion and extension Hands: No evidence of synovitis. Able to make full fist bilaterally Knees: No effusion, no tenderness, good ROM 06/2023 CT Chest 1. Interval development of a 13 x 19 mm right lower lobe subpleural pulmonary nodule since the prior chest CT from 12/05/2021, suspicious for a primary lung malignancy. 2. Findings consistent with fibrotic interstitial lung disease including subpleural reticulation, mild traction bronchiectasis/bronchiolectasis, architectural distortion, and subpleural cystic change, not substantially changed compared to the most recent chest CT from 12/05/2021, mildly progressed since 10/21/2018. These findings are probably due to the patient's history of lupus. 3. A few additional small (less than 5 mm) pulmonary nodules are unchanged since 12/05/2021, likely benign. 4. Stable mildly enlarged distal paraesophageal lymph node since the prior chest CT dated 12/05/2021, likely benign/reactive given stability. No new thoracic lymphadenopathy. 03/06/2024 PFTs Spirometry reveals a reduced FEV1/FVC with normal FEV1 and FVC values. This could reflect a normal presentation or could indicate mild obstruction. Clinical correlation recommended. Negative bronchodilator response. The diffusion capacity (corrected for hemoglobin) is normal. IMPRESSIONS/RECOMMENDATIONS: Systemic lupus, stable alopecia Diagnosis based on 2019 ACR/EULAR classification criteria: +SHADI 1:320 speckled, with an equivocal range dsDNA with no other laboratory features of systemic lupus. 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 CT scans show findings of definite UIP imaging pattern, essentially stable to minimally progressed since 10/21/2018 and likely related to patient's history of SLE. CT PFTs were normal as of 12/2022 and again 02/2024. As of 06/2023 she has been battling poorly differentiated non-small cell carcinoma of the lung. She is currently on preoperative chemotherapy and immunotherapy and will go for surgery 03/31/2024. Plan: She will continue HCQ 400 mg daily, along with topical treatments per Dermatology. SLE activity labs today ordered for her today with [facility] follow up. Health Maintenance HCQ: Exam scanned into system from 03/21/2022. She went again 03/2023 and is up to date. Vaccinations: up to date with COVID vaccines and bivalent booster. Yearly influenza given 11/2023. Prevnar 20 given 09/2021 RTC 6-9 months. Boaz Pineda D.O. Rheumatology Staff documented in this encounter [facility] 03-10-2024 Note [facility] 03-10-2024 Telephone encounter Note Patient called back in ans received message, she is going to come in later today to get this done. Roselia Mornoe March 10, 2024 8:23 AM [facility] 03-10-2024 Miscellaneous Notes Patient called back in ans received message, she is going to come in later today to get this done. Roselia Monroe March 10, 2024 8:23 AM Detailed message left on voicemail also sent information to pt. Via my chart. Liset Acevedo LPN Please ask her to recommend this week either Sunday or Sunday for recheck of CMP. I would like to monitor kidney function closely. Alf Castle DO documented in this encounter [facility] 03-10-2024 Telephone encounter Note Detailed message left on voicemail also sent information to pt. Via my chart. Liset Acevedo LPN [facility] 03-09-2024 Telephone encounter Note Please ask her to recommend this week either Sunday or Sunday for recheck of CMP. I would like to monitor kidney function closely. Alf Castle DO [facility] 03-06-2024 Note [facility] 03-06-2024 History of Present illness Narrative [facility] - OUTPATIENT THORACIC SURGERY CLINIC NOTE PT NAME: Vickey Schwartz [facility] NO: [id number] THORACIC SURGEON: Janett Feliciano M.D. DATE OF SERVICE: March 06, 2024 PRINCIPAL DX: clinical T1cN1 stage IIA Cancer poorly differentiated non-small cell carcinoma favoring adenocarcinoma of the right lower lobe of lung SURGICAL HX: none per thoracic REASON FOR VISIT: Follow up after tests, visit to finalize surgical treatment plan HPI: Vickey Schwartz is a 63 year old female former smoker (7 pack years, quit 2016), with history of IPF, HLD, lupus (plaquenil), and primary biliary cholangitis who was referred for an opinion regarding management of [id number] (Stage IIB) RLL poorly differentiated non-small cell carcinoma, favor adenocarcinoma. New RLL subpleural nodule discovered on CT chest 07/04 13 x 19 mm, PET measured at 20.6 mm, SUV 14.0 and perihilar LNs up to 11 mm and SUV 10.7. Biopsy of RLL nodule poorly differentiated non-small cell carcinoma, favor adenocarcinoma. Completed 4 cycles of chemotherapy 02/11/24. PHYSICAL EXAM: VITAL SIGNS: BP 104/78 Pulse 87 Temp 36.8 C (98.2 F) (Oral) Resp 14 Ht 163.3 cm (5' 4.3) Wt 87.5 kg (193 lb) SpO2 100% BMI 32.82 kg/m Room air GENERAL: well appearing, alert, no acute distress, well-hydrated, well nourished HEENT: normocephalic, midline, anicteric sclera. LUNGS: clear to auscultation, no wheezing or rhonchi HEART: RRR without murmur ABDOMEN: Soft, non-tender, non distended. No masses EXTREMITIES: No clubbing, cyanosis or edema. MUSCULOSKELETAL: Muscular strength intact. SKIN: turgor normal, no suspicious rashes or lesions NEURO: Gait normal. Sensation grossly intact. IMAGING/TESTS: Stress 11/29/23: CONCLUSIONS: 1. SPECT Perfusion Study: Normal. 2. There is no scintigraphic evidence for inducible ischemia. 3. No evidence of scarred myocardium. 4. Left ventricle is normal in size. The left ventricle systolic function is normal. 5. The right ventricle systolic function is normal. 6. This is a low risk scan. Gated Stress FBP Gated Rest FBP LVEF % [address] Abd/pelvis 02/12/24: IMPRESSION: No acute process within the abdomen or pelvis. Again seen are changes of the gallbladder suspicious for benign adenomyomatosis as seen on prior MRI of 06/22/2023. CT Chest 02/12/24 IMPRESSION: 1. Interval decrease in the size of the pleural-based soft tissue mass in the right lower lobe. No evidence of acute intrathoracic pathology. PFT 03/06/2024 PRE-BRONCH POST-BRONCH Pre LLN Pred ULN %Pred Post %Pred %Chg SPIROMETRY FVC (L) 3.59 2.15 2.98 3.83 120 3.66 122 2 FEV1 (L) 2.36 1.68 2.35 2.99 100 2.42 102 2 LUNG DIFFUSION DLCOunc (ml/min/mmHg) 14.72 15.35 21.52 27.69 68 6MW 03/06/2024 90.7% Echo 03/06/2024 pending result INTERVAL HISTORY: Vickey Schwartz returns for follow up visit after post induction testing. She has been feeling well. States she has had 2 infusions of magnesium following Keytruda as she was fatigued. No SOB, cough or wheeze. PFTs show adequate lung function. 6 minute walk showed 90% of predicted effort. She will return for TCI on 03/18/[address] Feliciano same day. 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 lower lobe of lung PLAN: - TCI 03/18/[address] Feliciano for tentative surgery 03/31/24 - oncology management with Dr Vandana Kaufman APRN.DIRECTOR OF PURCHASING documented in this encounter [facility] 03-06-2024 Note [facility] 03-06-2024 History of Present illness Narrative PULM FUNCTION: Provider: Janett Feliciano MD, PhD Spirometry w/BD: 1 DLCO: 1 6 MW: 1 System: 3 - [id number] documented in this encounter [facility] 03-06-2024 Note [facility] 03-04-2024 Note [facility] 03-04-2024 History of Present illness Narrative Confirmed surgical date of 03/31/2024 for Robotic RLL lung resection with TCI on 03/18/2024 with CXR, EKG, Lab tests. Advised of expected 4-day hospital stay with no current visiting restrictions with face mask required in patient care areas. Instructed to stop any OTC vitamins, supplements, cold, and allergy or Motrin/ibuprofen meds starting 7 days prior to surgery. Stop plaquenil starting 2 weeks prior to surgery (last dose on 03/16/2024) Robotic RLL lung resection c=2.5 OR 03/31/2024 TCI 03/18/2024 with CXR, EKG, Lab tests. Advised of expected 4-day hospital stay with no current visiting restrictions with face mask required in patient care areas. Instructed to stop any OTC vitamins, supplements, cold, allergy, or Motrin/ibuprofen meds starting 7 days prior to surgery. Stop plaquenil starting 2 weeks prior to surgery (last dose on 03/16/2024) Felton Cline RN Thoracic NPM documented in this encounter [facility] 03-03-2024 Telephone encounter Note Pt stopped and scheduled. Analisa Levine [facility] 03-03-2024 Miscellaneous Notes Pt stopped and scheduled. Analisa Levine Thank you. Order filed. Alf Castle DO Orders placed for additional labs, hydration and magnesium infusion today- chemo nurse aware. Dr. Castle- please file order. PSS- please assist patient in scheduling a new patient appointment with nephrology. She will also need to come back this week on Sunday for a BMP/MAG, possible hydration and electrolyte infusion. Patient is not able to come on because she has appointments at main campus. Lisa Ritchie LPN documented in this encounter [facility] 03-03-2024 Telephone encounter Note Thank you. Order filed. Alf Castle DO [facility] 03-03-2024 Telephone encounter Note Orders placed for additional labs, hydration and magnesium infusion today- chemo nurse aware. Dr. Castle- please file order. PSS- please assist patient in scheduling a new patient appointment with nephrology. She will also need to come back this week on Sunday for a BMP/MAG, possible hydration and electrolyte infusion. Patient is not able to come on because she has appointments at [facility]. Lisa Ritchie LPN [facility] 02-21-2024 Telephone encounter Note Per TE 02/20 patient is being taken care of by Dr. Feliciano staff Cheli Aguero [facility] 02-21-2024 Miscellaneous Notes Per TE 02/20 patient is being taken care of by Dr. Feliciano staff Cheli Aguero Yes and CT showed a decrease in size of the lung tumor. Can schedule appointment with Dr. Feliciano for surgery. She should continue every 3 week Keytruda with next dose on 03/03. Keep OV with me this week. Alf Castle DO [facility] called stating they were informed by patient that she has finished chemo. Please advise. documented in this encounter [facility] 02-20-2024 Telephone encounter Note POST INDUCTION FOLLOW UP Chemotherapy completion: confirm completed 02/11/[address] Castle Plan for pt. to return visit with restaging testing: CT (Chest, Abd, Pel) Completed 02/12/2024 Cardio Oncology ECHO Requested PFT's/DLCO/6Min Walk Requested Patient to return with testing and office visit with DIRECTOR OF PURCHASING week of 03/03/2024 Anticipated OR Date: TBD (anticipated): 02/29/2024 Felton Cline RN Thoracic NPM [facility] 02-20-2024 Miscellaneous Notes POST INDUCTION FOLLOW UP Chemotherapy completion: confirm completed 02/11/[address] Castle Plan for pt. to return visit with restaging testing: CT (Chest, Abd, Pel) Completed 02/12/2024 Cardio Oncology ECHO Requested PFT's/DLCO/6Min Walk Requested Patient to return with testing and office visit with DIRECTOR OF PURCHASING week of 03/03/2024 Anticipated OR Date: TBD (anticipated): 02/29/2024 Felton Cline RN Thoracic NPM documented in this encounter [facility] 02-20-2024 Note [facility] 02-20-2024 History of Present illness Narrative Oncologic problem(s): 1) Stage II NSCLC, adenocarcinoma. HPI: The patient is a 63-year-old female with a past medical history as outlined below. The patient is a former smoker of approximately 7-pack-year, quit in 2016. She is on Plaquenil for history of lupus. She has primary biliary cholangitis. She had a nodule discovered on lung cancer screening study for surveillance of her interstitial pulmonary fibrosis. A CT of the chest done in June 2023 demonstrated an interval new 13 x 19 mm right lower lobe subpleural nodule. PET scan done in July showed the nodule to measure 20.6 mm with an SUV of 14.0. Perihilar lymph nodes measuring up to 11 mm which were stable in size with an SUV of 10.7. She underwent a CT-guided biopsy of the right lower lobe nodule. Pathology demonstrated poorly differentiated non-small cell carcinoma favoring adenocarcinoma. She underwent bronchoscopy with EBUS. Samples from 11 RS demonstrated rare atypical epithelial cells and station 7 was negative for malignant cells. 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 CT has been stable and pulmonary function tests do not show restriction or low diffusing capacity. Patient prefers pulmonary follow-up closer to home. Patient is asymptomatic so antifibrotic therapy has been on hold. 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 She denies significant dyspnea except for with extreme activity. Chronic cough or sputum production. No wheezing. She used to smoke a pack a week but quit in 2015 when she had note of a small nodule on chest CT. Today she states that she continues to do well. Her Plaquenil controls her cutaneous symptoms. She has no arthralgias, erythema or joint effusions, no skin lesions, no edema. She does have photosensitivity and limits her sun exposure. She has excessive daytime sleepiness, known snoring and witnessed apneas. HSAT from 2020 showed possible mild obstructive sleep at but she never followed through with formal in lab sleep study. She states that she can fall asleep easily when sitting watching TV or working on her computer. She is a loud snorer, in fact her brother has been bothering her to be reevaluated for apnea. Per initial consultation: She is working on a daily basis. 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 Gets short of breath with trying to run or walking steeper slopes. Recent 6-minute walk test results were very good. Recently had testing for sleep apnea which suggested sleep apnea. It was a home sleep study test. Occasional dry cough but not frequent throughout the day. 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 Appetite has been normal. Presents for ongoing oncologic management. Interim history: Repeat CT chest 10/23/2023: Soft tissue mass along the posterior superior segment of the right lower lobe is increased in size, currently measuring 26 x 21 x 28 mm in transverse, AP and craniocaudal dimensions respectively, while previously measuring 20 x 16 x 27 mm in these same orientations. Numerous additional small lung nodules are unchanged relative to previous studies including 12/05/2021 Pleural space: No pleural effusion. No pleural thickening. Lower neck, lymph nodes, and mediastinum: There is new right hilar lymphadenopathy, measuring up to 13 mm in short axis on image 121. Additional enlarged right hilar nodes are present. 8 mm right paratracheal node. No axillary lymphadenopathy. Bronchoscopy 11/22/2023: Pathology: A - Lymph Node, Transbronchial, Aspirate/Fine Needle Aspirate - 4R Negative for malignant cells. Benign lymphoid sample. B - Lymph Node, Transbronchial, Aspirate/Fine Needle Aspirate - 11RS Positive for malignant cells. Non-small cell carcinoma. C - Lymph Node, Transbronchial, Aspirate/Fine Needle Aspirate - 11RI Positive for malignant cells. Non-small cell carcinoma. Current therapy: 1) Neoadjuvant pemetrexed, cisplatin and pembrolizumab. Completed 4 cycles. Cisplatin omitted cycles 3 and 4 due to CRISTINO. Presents for ongoing oncologic management. Interim history: Tolerated therapy well overall symptomatically. She has had no change in respiratory status. Dyspnea only with heavy exertion. No persistent diarrhea. She had 1 episode. PAST MEDICAL HISTORY Diagnosis Date Hemorrhage of rectum and anus HYPERLIPIDEMIA MIXED 07/10/2005 Lung nodule 06/13/2016 June 25, 2017 subcentimeter lung nodules and interstitial lung disease also stable from 2017: check CT in 1 year. Primary biliary cholangitis (HCC) Snoring Systemic lupus erythematosus (HCC) PAST SURGICAL HISTORY Procedure Laterality Date BRONCHOSCOPY 07/31/2023 COLONOSCOPY FLX DX W/COLLJ SPEC WHEN PFRMD 06/29/2016 HAD VASOVAGAL RESPONSE DURING PROCEDURE SYST BP 60'S HR 40'S-GIVEN ATROPINE CORRJ HLX VLGS BNCTY SESMDC DSTL METAR OSTEOT 1985 DIAGNOSTIC ARTHROSCOPY SHOULDER +- SYNOVIAL BX Left 04/03/2018 Left shoulder arthroscopic subacromial decompression, rotator cuff repair, and biceps tenotomy EGD 12/25/2022 repeat 2 years ESOPHAGOGASTRODUODENOSCOPY TRANSORAL DIAGNOSTIC 11/11/2018 EGD ESOPHAGOGASTRODUODENOSCOPY TRANSORAL DIAGNOSTIC 11/22/2020 repeat in 2 years FOOT SURGERY HX 1986 HYSTEROSCOPY 06/21/2017 D&C LUNG BIOPSY HX 08/24/2023 SIGMOIDOSCOPY ?2000 SKIN BIOPSY HX TONSILLECTOMY HX magnesium chloride (SLOW-MAG ORAL) Take 1 tablet by mouth two times a day. hydrOXYchloroQUINE (PLAQUENIL) 200 mg tablet Take 1 tablet by mouth two times a day. svynvmhnksQKRSA-mmsjrx-lppcomlvz (BMX 1:1:1) 1:1:1 liqd Take 5 mL by mouth every 4 hours as needed. ursodiol (ACTIGALL) 300 mg capsule Take 1 capsule by mouth three times a day. pantoprazole DR (PROTONIX) 40 mg tablet Take 1 tablet by mouth once daily. prochlorperazine (COMPAZINE) 10 mg tablet Take 1 tablet by mouth every 6 hours as needed. For chemotherapy induced nausea and vomiting. folic acid 1 mg tablet Take 1 tablet by mouth once daily. cholecalciferol (VITAMIN D-3) 50 mcg (2,000 unit) tablet Take 4,000 Units by mouth once daily. albuterol HFA (PROVENTIL HFA, VENTOLIN HFA) 90 mcg/actuation inhaler Inhale 2 Puffs as instructed every 4 hours as needed. clotrimazole-betamethasone (LOTRISONE) lotion Betamethasone / Clotrimazole Clotrimazole/Betamethasone Dip [Clotrimazole-Betamethasone Lot] 30 ML TP NEEDED PRN For SKIN June 14, 2017 Active 06-14-2017 [facility] ([id number]) tacrolimus (PROTOPIC) 0.1 % ointment Apply twice daily to affected areas on face Clobetasol Propionate (TEMOVATE) 0.05 % external solution Apply to affected areas on the scalp twice a day. Dispense 100ml as 30 day supply. biotin 5,000 mcg ODT Take 1 tablet by mouth once daily. Calcium-Cholecalciferol, D3, 500 mg-10 mcg (400 unit) per tablet Take 1 tablet by mouth once daily. triamcinolone acetonide (KENALOG) 0.1 % cream Apply to rash on body twice a day M-F, take weekends off ALLERGIES Allergen Reactions Adhesive Tape (Sammi* Itching Itching and redness FAMILY HISTORY Problem Relation Age of Onset Diabetes Mother Hypertension Mother Stroke Mother other (? SFTP) Mother Heart Father age 60's other (PBC) Father None Brother Obstructive Sleep Apnea Brother Colon Cancer Paternal Grandmother Colon Cancer Paternal Grandfather Anesthesia Problems No Family History Social History Tobacco Use Smoking status: Former Current packs/day: 0.00 Average packs/day: 0.2 packs/day for 30.0 years (4.5 ttl pk-yrs) Types: Cigarettes Start date: 1985 Quit date: 2016 Years since quittin.0 Smokeless tobacco: Never Tobacco comments: Pt smoked one pack a week x 30 years, quit 2016 Vaping Use Vaping status: Never Used Substance Use Topics Alcohol use: No Drug use: No REVIEW OF SYSTEMS: Constitutional: No episodes of fever and night sweats. Not significantly fatigued. Neuro: No GUTIERREZ, vertigo, dizziness and imbalance. No symptoms of neuropathy. HEENT: No recent change in voice, vision or hearing. Resp: See above. CVS: Denies exertional chest pain, PND, orthopnea and LE edema. GI: Denies dysphagia and odynophagia. Denies reflux, n/v, change in bowel habits and abdominal pain. : Denies dysuria or gross hematuria. No symptoms of bladder outlet obstruction. Endo: Denies hot flashes. Denies polyuria and polydipsia. Denies heat and cold intolerance. Musculoskeletal: Denies bone, back, joint and muscular pain. Derm: See above. Heme: Denies unusual bleeding and unexplained bruising. Psych: Normal mood. PHYSICAL EXAM: Vitals: Blood pressure 132/89, pulse 70, temperature 36.4 C (97.6 F), temperature source Temporal, weight 88.5 kg (195 lb), SpO2 100%. Well-appearing and in no acute distress. EYES: Sclerae are anicteric bilaterally. Respiratory breath sounds are uniformly mildly diminished throughout. IMAGING: PET [facility] 07/17/2023: 20.6 mm hypermetabolic nodule right mid posterior, right lower lobe with SUV 14.0. There was also FDG G uptake noted in the right thoracic perihilar and generating an SUV of 10.3. The maximal axial diameter the metabolic, morphologic abnormality is 10.7 mm. Genetic testing: NGS/biomarkers/flatbed truck driver mutation [facility]: -No flatbed truck driver mutations. -BRAF p([id number]) variant of potential clinical significance. Tier II. ASSESSMENT/PLAN: (C34.31) Cancer of lower lobe of right lung (HCC) (primary encounter diagnosis) Assessment: -T1c N1 (lymph node station 11 RS and 11 RI) M0 stage IIB NSCLC, adenocarcinoma of the RLL. 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 -Stage IIB non-small cell lung cancer, adenocarcinoma. -Discussed with rheumatology. Interstitial lung disease was very mild. [place] to be a candidate for immunotherapy. -Tolerated chemotherapy very well overall. -Reviewed CT images with her and her family. Near 50% decrease in size of primary tumor. -Discussed plan to continue immunotherapy and re-evaluate for surgery. Plan: -Scheduled for pembrolizumab on 03/03. Repeat lab work at that time. -Will forward note to thoracic surgery. Portions of this documentation were copied and pasted from my previous office visit note dated 11/27/2023 in order to provide a cohesive continuity of the history. The note has been reviewed and edited and updated as necessary. Alf Castle DO documented in this encounter [facility] 02-18-2024 Telephone encounter Note Yes and CT showed a decrease in size of the lung tumor. Can schedule appointment with Dr. Feliciano for surgery. She should continue every 3 week Keytruda with next dose on 03/03. Keep OV with me this week. Alf Castle DO [facility] 02-18-2024 Telephone encounter Note [facility] called stating they were informed by patient that she has finished chemo. Please advise. [facility] Work Phone: 02-12-2024 History of Present illness Narrative Radiology Service Progress Note PATIENT NAME: Vickey Schwartz DATE OF SERVICE: February 12, 2024 TIME: 12:11 PM PATIENT IDENTITY VERIFICATION COMPLETED USING TWO (2) IDENTIFIERS: Name and Date of confirmed by patient verbally. FALL SCREENING: Has the patient had 2 falls in the last year or 1 fall with injury or currently using an Ambulatory Assistive Device (Walker, Cane, Wheelchair, Crutches, etc.)? No PATIENT GENDER DATA: Female. status: : No status: NO. PATIENT RELEVANT IMPLANT DATA REVIEWED: Yes PATIENT PRESENTS WITH AN IMPLANTABLE OR ATTACHED PREPRESS SPECIALIST: No RADIOLOGY DEPARTMENT: CT; Exam(s) Completed: Chest Abdomen Pelvis PERIPHERAL IV DATA: Not applicable SIGNED BY: Jaimie Dean RT(R) February 12, 2024 12:11 PM documented in this encounter [facility] 02-12-2024 Note [facility] 02-11-2024 Note [facility] 02-11-2024 History of Present illness Narrative Per Dr. Castle, hold cisplatin today for creatinine of 1.38 and pemetrexed to be dose reduced. Per Dr. Castle, won't be making up cisplatin, Vickey will follow up after CT. Instructed Vickey to have labs redrawn tomorrow at 0930 and IV hydration at [address] Vickey verbalizes understanding. documented in this encounter [facility] 01-29-2024 Telephone encounter Note Call to pt. who reports the 3rd and final chemo treatment scheduled for 01/21/24 was not completed due to very low magnesium levels. Pt. had magnesium supplements and will have levels rechecked prior to the rescheduled 3rd chemo treatment on 02/11/2024. Advised pt will adjust the plan for restaging 3-4 weeks after the last chemo treatment is completed and for the lung surgery to be scheduled 6-7 weeks after the chemo completion. Will monitor and confirm for chemo completion after 02/11/2024. Felton Cline RN Thoracic NPM [facility] Work Phone: 01-29-2024 Miscellaneous Notes Call to pt. who reports the 3rd and final chemo treatment scheduled for 01/21/24 was not completed due to very low magnesium levels. Pt. had magnesium supplements and will have levels rechecked prior to the rescheduled 3rd chemo treatment on 02/11/2024. Advised pt will adjust the plan for restaging 3-4 weeks after the last chemo treatment is completed and for the lung surgery to be scheduled 6-7 weeks after the chemo completion. Will monitor and confirm for chemo completion after 02/11/2024. Felton Cline RN Thoracic NPM documented in this encounter [facility] 01-25-2024 Note [facility] 01-25-2024 History of Present illness Narrative Patient educated to take slow mag 1 tab BID. Patient stated understanding and will pickle cutter after appointment today. documented in this encounter [facility] 01-25-2024 Telephone encounter Note Spoke with patient and scheduled Cheli Aguero [facility] 01-25-2024 Miscellaneous Notes Spoke with patient and scheduled Cheli Aguero PSS- schedule a CT C/A/P the week of 02/11/2024 and then an OV with Dr. Castle 1 week later Orders are filed. Thank you. PSS- please schedule patient for a lab appointment tomorrow, 01/25/2024 @ 8:00 for a CBC/CMP (please make sure CBC and CMP are noted on lab appointment notes). Also, patient will need to be scheduled for hydration and mag tomorrow (downstairs) @ 8:30. Patient is aware of both appointments.--DONE SCHEDULE CT ONCE ORDERS ARE filed-- schedule a CT C/A/P the week of 02/11/2024 and then an OV with Dr. Castle 1 week later Cheli Aguero PSS- please schedule patient for a lab appointment tomorrow, 01/25/2024 @ 8:00 for a CBC/CMP (please make sure CBC and CMP are noted on lab appointment notes). Also, patient will need to be scheduled for hydration and mag tomorrow (downstairs) @ 8:30. Patient is aware of both appointments. She will also need to schedule a CT C/A/P the week of 02/11/2024 and then an OV with Dr. Castle 1 week later. Lisa Ritchie LPN Patient contacted office wanting to know the following: When are you wanting to repeat MAG level? Had MAG replaced 01/23/2024. Treatment was held 01/22, are we holding until next treatment on 02/08/2024? Are we still checking labs as follows: CBC/CMP/MAG on D1, CMP/MAG on D8 and D15? Lisa Ritchie LPN Scheduled patient as directed Cheli Aguero PSS- please schedule patient for a lab appointment for a CMP today @ 2:30. Patient is aware of appointment. Lisa Ritchie LPN The repeat CMP drawn after her hydration was hemolyzed and the potassium could not be resulted. Please ask her to come in either this afternoon or tomorrow morning for a redraw of the CMP. Alf Castle DO documented in this encounter [facility] 01-24-2024 Telephone encounter Note PSS- schedule a CT C/A/P the week of 02/11/2024 and then an OV with Dr. Castle 1 week later [facility] 01-24-2024 Telephone encounter Note Orders are filed. Thank you. [facility] 01-24-2024 Telephone encounter Note PSS- please schedule patient for a lab appointment tomorrow, 01/25/2024 @ 8:00 for a CBC/CMP (please make sure CBC and CMP are noted on lab appointment notes). Also, patient will need to be scheduled for hydration and mag tomorrow (downstairs) @ 8:30. Patient is aware of both appointments.--DONE SCHEDULE CT ONCE ORDERS ARE filed-- schedule a CT C/A/P the week of 02/11/2024 and then an OV with Dr. Castle 1 week later Cheli Aguero [facility] 01-24-2024 Telephone encounter Note Scan on 01/24/2024 3:41 PM by ProviderIssac PA-C: Consultation - Ophthalmology Scan on 01/24/2024 3:34 PM by Issac Alonso PA-C: Consultation - Ophthalmology [facility] 01-24-2024 Miscellaneous Notes Scan on 01/24/2024 3:41 PM by Issac Alonso PA-C: Consultation - Ophthalmology Scan on 01/24/2024 3:34 PM by Issac Alonso PA-C: Consultation - Ophthalmology Images from the original note were not included. Last eye exam I could find was completed on 03/21/2021 Scan on 03/28/2021 2:41 PM by Provider, External, HALI: Consultation - Ophthalmology Most recent Rheumatology visit: 04/04/2023 (with Boaz Pineda) Last Bone Density on file: 06/26/2022 Rheumatology Care Team: BOAZ PINEDA Recent Office Visits - This Specialty 04/04/2023 Other systemic lupus erythematosus with other organ involvement (HCC) Rheumatology Boaz Pineda DO 10/02/2022 Other systemic lupus erythematosus with other organ involvement (HCC) Rheumatology Boaz Pineda DO 11/14/2021 Cutaneous lupus erythematosus Rheumatology Boaz Pineda DO Upcoming Rheumatology Appointments - Next 365 Days Visit Type Date Time Department [facility] 03/10/2024 11:00 AM [facility] A[facility] CBC: Latest Ref Rng & Units 01/21/2024 01/23/2024 CBC WBC 3.70 - 11.00 k/uL 2.69 4.42 P Hemoglobin 11.5 - 15.5 g/dL 11.4 11.7 P Hematocrit 36.0 - 46.0 % 32.0 33.2 P Platelet Count 150 - 400 k/uL 266 277 P Abs Neut (ANC) 1.45 - 7.50 k/uL 0.91 Abs Lymph 1.00 - 4.00 k/uL 1.13 P Preliminary result Vitamin D: None on file in the last 6 months LFT: Latest Ref Rng & Units 01/23/2024 01/23/2024 CMP Sodium 136 - 144 mmol/L 134 121 Potassium 5.2 -- Chloride 98 - 107 mmol/L 99 96 CO2 22 - 30 mmol/L 26 20 Glucose 74 - 99 mg/dL 88 86 BUN 7 - 21 mg/dL 21 16 Creatinine 0.58 - 0.96 mg/dL 1.31 0.98 Calcium 8.5 - 10.2 mg/dL 10.0 8.0 AST -- -- ALT 48 -- Alkaline Phosphatase 140 -- Hepatic Function: Creatinine: Latest Ref Rng & Units 01/23/2024 01/23/2024 Creatinine Creatinine 0.58 - 0.96 mg/dL 1.31 0.98 ESR/CRP: None on file in the last 6 months Uric Acid: None on file in the last 6 months Open Standing (Multiple Instance) Lab Orders Remain Interval Expires Ordered Last Rel. COMPLETE BLOOD COUNT AND DIFFERENTIAL [SQCBCDIF] 4/10 Once per week 12/13/24 12/16/23 01/23/24 Auth. provider: Alf Castle DO Assoc. diagnoses: Non-small cell cancer of right lung (HCC), Cancer of lower lobe of right lung (HCC) COMPREHENSIVE METABOLIC PANEL [SQCMP] 4/10 Once per week 12/13/24 12/16/23 01/23/24 Auth. provider: Alf Castle DO Assoc. diagnoses: Non-small cell cancer of right lung (HCC), Cancer of lower lobe of right lung (HCC) MAGNESIUM [SQMG1] 4/10 Once per week 12/13/24 12/16/23 01/23/24 Auth. provider: Alf Castle DO Assoc. diagnoses: Non-small cell cancer of right lung (HCC), Cancer of lower lobe of right lung (HCC) Open Future (Single Instance) Lab Orders Expected Expires Ordered BASIC METABOLIC PANEL [SQBMP] 01/23/24 04/23/24 01/23/24 Auth. provider: Alf Castle DO Assoc. diagnoses: Non-small cell cancer of right lung (HCC) documented in this encounter [facility] 01-24-2024 Telephone encounter Note PSS- please schedule patient for a lab appointment tomorrow, 01/25/2024 @ 8:00 for a CBC/CMP (please make sure CBC and CMP are noted on lab appointment notes). Also, patient will need to be scheduled for hydration and mag tomorrow (downstairs) @ 8:30. Patient is aware of both appointments. She will also need to schedule a CT C/A/P the week of 02/11/2024 and then an OV with Dr. Castle 1 week later. Lisa Ritchie LPN [facility] 01-24-2024 Telephone encounter Note Received eye exam records. Thank you. Scan on 01/24/2024 3:34 PM by ProviderIssac PA-C: Consultation - Ophthalmology Scan on 01/24/2024 3:41 PM by ProviderIssac PA-C: Consultation - Ophthalmology [facility] 01-24-2024 Miscellaneous Notes Received eye exam records. Thank you. Scan on 01/24/2024 3:34 PM by ProviderIssac PA-C: Consultation - Ophthalmology Scan on 01/24/2024 3:41 PM by ProviderIssac PA-C: Consultation - Ophthalmology Received eye report from [facility] dated on 03/26. Scanned for review. documented in this encounter [facility] 01-24-2024 Telephone encounter Note Received eye report from [facility] dated on 03/26. Scanned for review. [facility] 01-24-2024 Telephone encounter Note See phone note. Alf Castle DO [facility] 01-24-2024 Miscellaneous Notes See phone note. Alf Castle DO I spoke with the patient and clarified things with her; will discuss future labs with Dr. Vandana Ritchie LPN documented in this encounter [facility] 01-24-2024 Telephone encounter Note Patient contacted office wanting to know the following: When are you wanting to repeat MAG level? Had MAG replaced 01/23/2024. Treatment was held 01/22, are we holding until next treatment on 02/08/2024? Are we still checking labs as follows: CBC/CMP/MAG on D1, CMP/MAG on D8 and D15? Lisa Ritchie LPN [facility] 01-24-2024 Telephone encounter Note I spoke with the patient and clarified things with her; will discuss future labs with Dr. Vandana Ritchie LPN [facility] 01-23-2024 Telephone encounter Note Scheduled patient as directed Cheli Aguero [facility] 01-23-2024 Telephone encounter Note PSS- please schedule patient for a lab appointment for a CMP today @ 2:30. Patient is aware of appointment. Lisa Ritchie LPN [facility] 01-23-2024 Telephone encounter Note Images from the original note were not included. Last eye exam I could find was completed on 03/21/2021 Scan on 03/28/2021 2:41 PM by Provider, External, PARRISC: Consultation - Ophthalmology Most recent Rheumatology visit: 04/04/2023 (with Boaz Pineda) Last Bone Density on file: 06/26/2022 Rheumatology Care Team: BOAZ PINEDA Recent Office Visits - This Specialty 04/04/2023 Other systemic lupus erythematosus with other organ involvement (HCC) Rheumatology Boaz Pineda DO 10/02/2022 Other systemic lupus erythematosus with other organ involvement (HCC) Rheumatology Boaz Pineda DO 11/14/2021 Cutaneous lupus erythematosus Rheumatology Boaz Pineda DO Upcoming Rheumatology Appointments - Next 365 Days Visit Type Date Time Department [facility] 03/10/2024 11:00 AM [facility] MAIN A50 CBC: Latest Ref Rng & Units 01/21/2024 01/23/2024 CBC WBC 3.70 - 11.00 k/uL 2.69 4.42 P Hemoglobin 11.5 - 15.5 g/dL 11.4 11.7 P Hematocrit 36.0 - 46.0 % 32.0 33.2 P Platelet Count 150 - 400 k/uL 266 277 P Abs Neut (ANC) 1.45 - 7.50 k/uL 0.91 Abs Lymph 1.00 - 4.00 k/uL 1.13 P Preliminary result Vitamin D: None on file in the last 6 months LFT: Latest Ref Rng & Units 01/23/2024 01/23/2024 CMP Sodium 136 - 144 mmol/L 134 121 Potassium 5.2 -- Chloride 98 - 107 mmol/L 99 96 CO2 22 - 30 mmol/L 26 20 Glucose 74 - 99 mg/dL 88 86 BUN 7 - 21 mg/dL 21 16 Creatinine 0.58 - 0.96 mg/dL 1.31 0.98 Calcium 8.5 - 10.2 mg/dL 10.0 8.0 AST -- -- ALT 48 -- Alkaline Phosphatase 140 -- Hepatic Function: Creatinine: Latest Ref Rng & Units 01/23/2024 01/23/2024 Creatinine Creatinine 0.58 - 0.96 mg/dL 1.31 0.98 ESR/CRP: None on file in the last 6 months Uric Acid: None on file in the last 6 months Open Standing (Multiple Instance) Lab Orders Remain Interval Expires Ordered Last Rel. COMPLETE BLOOD COUNT AND DIFFERENTIAL [SQCBCDIF] 05/15 Once per week 12/13/24 12/16/23 01/23/24 Auth. provider: Alf Castle DO Assoc. diagnoses: Non-small cell cancer of right lung (HCC), Cancer of lower lobe of right lung (HCC) COMPREHENSIVE METABOLIC PANEL [SQCMP] 4/10 Once per week 12/13/24 12/16/23 01/23/24 Auth. provider: Alf Castle DO Assoc. diagnoses: Non-small cell cancer of right lung (HCC), Cancer of lower lobe of right lung (HCC) MAGNESIUM [SQMG1] 4/10 Once per week 12/13/24 12/16/23 01/23/24 Auth. provider: Alf Castle DO Assoc. diagnoses: Non-small cell cancer of right lung (HCC), Cancer of lower lobe of right lung (HCC) [facility] (Single Instance) Lab Orders Expected Expires Ordered BASIC METABOLIC PANEL [SQBMP] 01/23/24 04/23/24 01/23/24 Auth. provider: Alf Castle DO Assoc. diagnoses: Non-small cell cancer of right lung (HCC) [facility] 01-23-2024 Telephone encounter Note The repeat CMP drawn after her hydration was hemolyzed and the potassium could not be resulted. Please ask her to come in either this afternoon or tomorrow morning for a redraw of the CMP. Alf Castle DO [facility] 01-23-2024 Telephone encounter Note Per Dr. Vandana escobar treatment today. Hydrate and replace magnesium only. Need to balance out the rest of her schedule Cheli Aguero [facility] 01-23-[address] Vandana escobar treatment today. Hydrate and replace magnesium only. Need to balance out the rest of her schedule Cheli Aguero documented in this encounter [facility] 01-23-2024 Note HNO ID: [id number] Author: MIRANDA HEWITT, RN Service: ? Author Type: Registered Nurse Type: Progress Notes Filed: 01/23/2024 12:06 Note Text: Per Dr. Vandana escobar treatment today. Hydrate and replace magnesium only. [facility] 01-23-2024 History of Present illness Narrative Per Dr. Vandana escobar treatment today. Hydrate and replace magnesium only. documented in this encounter [facility] 01-22-2024 Telephone encounter Note Appointment notes updated. Lisa Ritchie LPN [facility] 01-22-2024 Miscellaneous Notes Appointment notes updated. Lisa Ritchie LPN Needs BMP when here Sunday to reassess serum Cr before receiving cisplatin. lAf Castle DO documented in this encounter [facility] 01-21-2024 Telephone encounter Note Needs BMP when here Sunday to reassess serum Cr before receiving cisplatin. Alf Castle DO [facility] 01-21-2024 Telephone encounter Note Patient I scheduled and aware. Arianna Camargo [facility] 01-21-2024 Miscellaneous Notes Patient I scheduled and aware. Arianna Camargo PSS - please schedule Vickey for repeat labwork (CBC/CMP/Mag) and treatment (Cisplatin/Alimta) on Sunday01/23/24. Patient will need to be notified of time. Thank you. documented in this encounter [facility] 01-21-2024 Note [facility] 01-21-2024 History of Present illness Narrative CMP/Mag not resulted at time of discharge due to delay in lab. CMP 01/17 used for today's Keytruda per Dr. Castle. Will recheck labwork and infuse remaining treatment (Cisplatin/Alimta) on 01/22. documented in this encounter [facility] 01-21-2024 Telephone encounter Note Patient already started Slow- Mag on Sunday. Lisa Ritchie LPN [facility] 01-21-2024 Miscellaneous Notes Patient already started Slow- Mag on Sunday. Lisa Ritchie LPN Recheck Mg Sunday. Advise she start Slow-Mag 1 tab BID. Alf Castle DO documented in this encounter [facility] 01-21-2024 Telephone encounter Note PSS - please schedule Vickey for repeat labwork (CBC/CMP/Mag) and treatment (Cisplatin/Alimta) on Sunday01/23/24. Patient will need to be notified of time. Thank you. [facility] 01-20-2024 Telephone encounter Note Recheck Mg Sunday. Advise she start Slow-Mag 1 tab BID. Alf Castle DO [facility] 01-18-2024 Note [facility] 01-18-2024 History of Present illness Narrative Patient had OV with Eliceo Archibald CNP prior to infusion. Please refer to OV note dated today for VS and assessment. documented in this encounter [facility] 01-18-2024 Note [facility] 01-18-2024 History of Present illness Narrative Vickey Efren 1960 Oncologic problem(s): 1) Stage II NSCLC, adenocarcinoma. HPI: The patient is a 63-year-old female with a past medical history as outlined below. The patient is a former smoker of approximately 7-pack-year, quit in 2015. She is on Plaquenil for history of lupus. She has primary biliary cholangitis. She had a nodule discovered on lung cancer screening study for surveillance of her interstitial pulmonary fibrosis. A CT of the chest done in June 2023 demonstrated an interval new 13 x 19 mm right lower lobe subpleural nodule. PET scan done in July showed the nodule to measure 20.6 mm with an SUV of 14.0. Perihilar lymph nodes measuring up to 11 mm which were stable in size with an SUV of 10.7. She underwent a CT-guided biopsy of the right lower lobe nodule. Pathology demonstrated poorly differentiated non-small cell carcinoma favoring adenocarcinoma. She underwent bronchoscopy with EBUS. Samples from 11 RS demonstrated rare atypical epithelial cells and station 7 was negative for malignant cells. 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 CT has been stable and pulmonary function tests do not show restriction or low diffusing capacity. Patient prefers pulmonary follow-up closer to home. Patient is asymptomatic so antifibrotic therapy has been on hold. 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 She denies significant dyspnea except for with extreme activity. Chronic cough or sputum production. No wheezing. She used to smoke a pack a week but quit in 2015 when she had note of a small nodule on chest CT. Today she states that she continues to do well. Her Plaquenil controls her cutaneous symptoms. She has no arthralgias, erythema or joint effusions, no skin lesions, no edema. She does have photosensitivity and limits her sun exposure. She has excessive daytime sleepiness, known snoring and witnessed apneas. HSAT from 2020 showed possible mild obstructive sleep at but she never followed through with formal in lab sleep study. She states that she can fall asleep easily when sitting watching TV or working on her computer. She is a loud snorer, in fact her brother has been bothering her to be reevaluated for apnea. Per initial consultation: She is working on a daily basis. 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 Gets short of breath with trying to run or walking steeper slopes. Recent 6-minute walk test results were very good. Recently had testing for sleep apnea which suggested sleep apnea. It was a home sleep study test. Occasional dry cough but not frequent throughout the day. 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 Appetite has been normal. Repeat CT chest 10/23/2023: Soft tissue mass along the posterior superior segment of the right lower lobe is increased in size, currently measuring 26 x 21 x 28 mm in transverse, AP and craniocaudal dimensions respectively, while previously measuring 20 x 16 x 27 mm in these same orientations. Numerous additional small lung nodules are unchanged relative to previous studies including 12/05/2021 Pleural space: No pleural effusion. No pleural thickening. Lower neck, lymph nodes, and mediastinum: There is new right hilar lymphadenopathy, measuring up to 13 mm in short axis on image 121. Additional enlarged right hilar nodes are present. 8 mm right paratracheal node. No axillary lymphadenopathy. Bronchoscopy 11/22/2023: Pathology: A - Lymph Node, Transbronchial, Aspirate/Fine Needle Aspirate - 4R Negative for malignant cells. Benign lymphoid sample. B - Lymph Node, Transbronchial, Aspirate/Fine Needle Aspirate - 11RS Positive for malignant cells. Non-small cell carcinoma. C - Lymph Node, Transbronchial, Aspirate/Fine Needle Aspirate - 11RI Positive for malignant cells. Non-small cell carcinoma. Presents for ongoing oncologic management. Interim history: Pt presents prior to C3D1 cis/alimta/keytruda. Denies fevers, chills or NS. Eating and drinking ok, notes some taste changes. Water doesn't taste good. Sore on tongue that comes and goes. Worse with hot or acidic foods. One episode of vomiting a day after treatment. No further issues. Denies. SOB, CP, cough. Denies rash or skin changes. Had one day after last treatment that she felt that her heart was racing, lasted a few minutes. Resolved, no further issues. Reviewed CBC. CMP today. Will plan to give IV mag today while she is here. Repeat CBC on Sunday prior to treatment. Pt acknowledged. Reviewed treatment schedule and expected side effects of treatment. All questions answered at this time. PAST MEDICAL HISTORY Diagnosis Date Hemorrhage of rectum and anus HYPERLIPIDEMIA MIXED 07/10/2005 Lung nodule 06/13/2016 June 25, 2017 subcentimeter lung nodules and interstitial lung disease also stable from 2017: check CT in 1 year. Primary biliary cholangitis (HCC) Snoring Systemic lupus erythematosus (HCC) PAST SURGICAL HISTORY Procedure Laterality Date BRONCHOSCOPY 07/31/2023 COLONOSCOPY FLX DX W/COLLJ SPEC WHEN PFRMD 06/29/2016 HAD VASOVAGAL RESPONSE DURING PROCEDURE SYST BP 60'S HR 40'S-GIVEN ATROPINE CORRJ HLX VLGS BNCTY SESMDC DSTL METAR OSTEOT 1985 DIAGNOSTIC ARTHROSCOPY SHOULDER +- SYNOVIAL BX Left 04/03/2018 Left shoulder arthroscopic subacromial decompression, rotator cuff repair, and biceps tenotomy EGD 12/25/2022 repeat 2 years ESOPHAGOGASTRODUODENOSCOPY TRANSORAL DIAGNOSTIC 11/11/2018 EGD ESOPHAGOGASTRODUODENOSCOPY TRANSORAL DIAGNOSTIC 11/22/2020 repeat in 2 years FOOT SURGERY HX 1986 HYSTEROSCOPY 06/21/2017 D&C LUNG BIOPSY HX 08/24/2023 SIGMOIDOSCOPY ?1999 SKIN BIOPSY HX TONSILLECTOMY HX ursodiol (ACTIGALL) 300 mg capsule^Take 1 capsule by mouth three times a day.^Disp: 270 capsule^Rfl: [address] (PROTONIX) 40 mg tablet^Take 1 tablet by mouth once daily.^Disp: 90 tablet^Rfl: 3 prochlorperazine (COMPAZINE) 10 mg tablet^Take 1 tablet by mouth every 6 hours as needed. For chemotherapy induced nausea and vomiting.^Disp: 30 tablet^Rfl: 2 folic acid 1 mg tablet^Take 1 tablet by mouth once daily.^Disp: 90 tablet^Rfl: 2 cholecalciferol (VITAMIN D-3) 50 mcg (2,000 unit) tablet^Take 4,000 Units by mouth once daily.^Disp: ^Rfl: albuterol HFA (PROVENTIL HFA, VENTOLIN HFA) 90 mcg/actuation inhaler^Inhale 2 Puffs as instructed every 4 hours as needed.^Disp: 1 Each^Rfl: 5 hydrOXYchloroQUINE (PLAQUENIL) 200 mg tablet^Take 1 tablet by mouth two times a day.^Disp: 180 tablet^Rfl: 3 clotrimazole-betamethasone (LOTRISONE) lotion^Betamethasone / Clotrimazole Clotrimazole/Betamethasone Dip [Clotrimazole-Betamethasone Lot] 30 ML TP NEEDED PRN For SKIN June 14, 2017 Active 06-14-2017 [facility] ([id number])^Disp: ^Rfl: tacrolimus (PROTOPIC) 0.1 % ointment^Apply twice daily to affected areas on face^Disp: 30 g^Rfl: 3 Clobetasol Propionate (TEMOVATE) 0.05 % external solution^Apply to affected areas on the scalp twice a day. Dispense 100ml as 30 day supply.^Disp: 100 mL^Rfl: 3 biotin 5,000 mcg ODT^Take 1 tablet by mouth once daily.^Disp: ^Rfl: Calcium-Cholecalciferol, D3, 500 mg-10 mcg (400 unit) per tablet^Take 1 tablet by mouth once daily.^Disp: ^Rfl: triamcinolone acetonide (KENALOG) 0.1 % cream^Apply to rash on body twice a day M-, take weekends off^Disp: 454 g^Rfl: 0 [id number]-vjtlrv-chcwcdqvt (BMX 1:1:1) 1:1:1 liqd^Take 5 mL by mouth every 4 hours as needed.^Disp: 473 mL^Rfl: 2 ALLERGIES Allergen Reactions Adhesive Tape (Sammi* Itching Itching and redness FAMILY HISTORY Problem Relation Age of Onset Diabetes Mother Hypertension Mother Stroke Mother other (? SFTP) Mother Heart Father age 60's other (PBC) Father None Brother Obstructive Sleep Apnea Brother Colon Cancer Paternal Grandmother Colon Cancer Paternal Grandfather Anesthesia Problems No Family History Social History Tobacco Use Smoking status: Former Current packs/day: 0.00 Average packs/day: 0.2 packs/day for 30.0 years (4.5 ttl pk-yrs) Types: Cigarettes Start date: 1985 Quit date: 2016 Years since quittin.9 Smokeless tobacco: Never Tobacco comments: Pt smoked one pack a week x 30 years, quit 2016 Vaping Use Vaping status: Never Used Substance Use Topics Alcohol use: No Drug use: No REVIEW OF SYSTEMS: Constitutional: No episodes of fever and night sweats. Not significantly fatigued. All systems reviewed on 01/18/2024 with pertinent positives and negatives as outlined in the interval history. PHYSICAL EXAM: Vitals: Blood pressure 122/62, pulse 84, temperature 36.9 C (98.4 F), temperature source Temporal, weight 85.3 kg (188 lb), SpO2 98%. General: Age-appropriate well developed. Appears well. No acute distress. HEENT: Normocephalic, no sclera icterus, external ears normal Neck: Supple, no JVD. Chest: Clear bilaterally, no wheezes, not labored. Heart: Normal S1 and S2, no abnormal sounds Abdomen: Soft, nontender, nondistended Extremities: No edema Neurological: Grossly intact Skin: Warm and dry with no rashes or ulcerations. Hematologic: no bruising or petechiae. Psychiatric: Alert and oriented x3. Emotional well-being assessment was performed. Pt denies depression, distress, and or problems with coping or adjustment. I have performed the physical exam today (01/18/2024) and have edited the note to correlate with current findings. IMAGING: PET [facility] 07/17/2023: 20.6 mm hypermetabolic nodule right mid posterior, right lower lobe with SUV 14.0. There was also FDG G uptake noted in the right thoracic perihilar and generating an SUV of 10.3. The maximal axial diameter the metabolic, morphologic abnormality is 10.7 mm. Genetic testing: NGS/biomarkers/flatbed truck driver mutation analyses: [employer] 10/30/2023: -No flatbed truck driver mutations. -BRAF p([id number] [id number]) variant of potential clinical significance. Tier II. ASSESSMENT/PLAN: Per Dr. Castle's Note 11/27/2023: (C34.31) Cancer of lower lobe of right lung (HCC) (primary encounter diagnosis) Assessment: -T1c N1 (lymph node station 11 RS and 11 RI) M0 stage IIB NSCLC, adenocarcinoma of the RLL. 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 -Reviewed most recent pathology. -Diagnosis remains stage IIb non-small cell lung cancer, adenocarcinoma. -Discussed with rheumatology. Interstitial lung disease is very mild. [place] to be a candidate for immunotherapy. -Discussed plan for preoperative chemotherapy and immunotherapy with cisplatin, pemetrexed and pembrolizumab. -I discussed the rationale, logistics, potential risks (including but not limited to possible hair thinning, cytopenias, nausea and vomiting, diarrhea, rash, neuropathy, nephropathy, infections, autoimmune side effects and the small potential for as a consequence of severe toxicity/complications of therapy), benefits and alternatives, as well as the personnel involved in the administration of cisplatin, pemetrexed and pembrolizumab. I answered her questions in detail and she verbalized understanding and agreed with the recommended therapy. Please see the electronic consent document for details of doses and schedule. -Discussed port placement but she wants to think about that for right now. Plan: -She has an upcoming stress test. Once that is completed and we know with certainty she is a surgical candidate, proceed with therapy. A/P: Cancer of lower lobe of right lung (HCC) (primary encounter diagnosis) - T1c N1 (lymph node station 11 RS and 11 RI) M0 stage IIB NSCLC, adenocarcinoma of the RLL. - planned to start C3D1 cis/alimta/keytruda on Sunday -ANC 1.12, plan to repeat CBC on Sunday prior to treatment - replace mag today for mag on 1.0 - encouraged fluids with electrolytes - BMX for intermittent mouth sore. - continue to follow with surgery - RTC as scheduled advised to call with any questions or concerns. Mayco Arcihbald APRN.DIRECTOR OF PURCHASING I spent a total of 30 minutes on the date of the service which included preparing to see the patient, [id number] patient care, completing clinical documentation, obtaining and/or reviewing separately obtained history, and counseling and educating the patient/family/caregiver. Portions of this note including HPI, ROS, impression/plan may have been copied forward as to provide important historical information essential in contributing to medical decision making. Documentation has been reviewed and edited as necessary to support clinical decision making for today's visit and to reflect my own independent evaluation of this patient. documented in this encounter [facility] 01-07-2024 Telephone encounter Note SOCIAL WORK FOLLOW UP NOTE: [facility] Short-term disability paperwork received for pt. Forms completed and reviewed and signed by physician. SW successfully faxed this date and sent to internal scanning. No other needs identified at this time. JESSICA Martinez [facility] 01-07-2024 Miscellaneous Notes SOCIAL WORK FOLLOW UP NOTE: [facility] Short-term disability paperwork received for pt. Forms completed and reviewed and signed by physician. SW successfully faxed this date and sent to internal scanning. No other needs identified at this time. JESSICA Martinez documented in this encounter [facility] 01-06-2024 Telephone encounter Note Done. [facility] 01-06-2024 Miscellaneous Notes Done. documented in this encounter [facility] 01-06-2024 Telephone encounter Note Done. [facility] 01-06-2024 Miscellaneous Notes Done. documented in this encounter [facility] 12-31-2023 History of Present illness Narrative Radiology Service Progress Note PATIENT NAME: Vickey Schwartz DATE OF SERVICE: December 31, 2023 TIME: 7:41 AM PATIENT IDENTITY VERIFICATION COMPLETED USING TWO (2) IDENTIFIERS: Name and Date of confirmed by patient verbally. FALL SCREENING: Has the patient had 2 falls in the last year or 1 fall with injury or currently using an Ambulatory Assistive Device (Walker, Cane, Wheelchair, Crutches, etc.)? No PATIENT GENDER DATA: Female. status: : No status: NO. PATIENT RELEVANT IMPLANT DATA REVIEWED: Not Applicable PATIENT PRESENTS WITH AN IMPLANTABLE OR ATTACHED PREPRESS SPECIALIST: No RADIOLOGY DEPARTMENT: Mammography PERIPHERAL IV DATA: Not applicable SIGNED BY: Iron Ricardo Xeroo Pati December 31, 2023 7:41 AM documented in this encounter [facility] 12-31-2023 Note [facility] 12-28-2023 Note [facility] 12-28-2023 History of Present illness Narrative Vickey Schwartz 1960 Oncologic problem(s): 1) Stage II NSCLC, adenocarcinoma. HPI: The patient is a 63-year-old female with a past medical history as outlined below. The patient is a former smoker of approximately 7-pack-year, quit in 2015. She is on Plaquenil for history of lupus. She has primary biliary cholangitis. She had a nodule discovered on lung cancer screening study for surveillance of her interstitial pulmonary fibrosis. A CT of the chest done in June 2023 demonstrated an interval new 13 x 19 mm right lower lobe subpleural nodule. PET scan done in July showed the nodule to measure 20.6 mm with an SUV of 14.0. Perihilar lymph nodes measuring up to 11 mm which were stable in size with an SUV of 10.7. She underwent a CT-guided biopsy of the right lower lobe nodule. Pathology demonstrated poorly differentiated non-small cell carcinoma favoring adenocarcinoma. She underwent bronchoscopy with EBUS. Samples from 11 RS demonstrated rare atypical epithelial cells and station 7 was negative for malignant cells. 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 CT has been stable and pulmonary function tests do not show restriction or low diffusing capacity. Patient prefers pulmonary follow-up closer to home. Patient is asymptomatic so antifibrotic therapy has been on hold. 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 She denies significant dyspnea except for with extreme activity. Chronic cough or sputum production. No wheezing. She used to smoke a pack a week but quit in 2015 when she had note of a small nodule on chest CT. Today she states that she continues to do well. Her Plaquenil controls her cutaneous symptoms. She has no arthralgias, erythema or joint effusions, no skin lesions, no edema. She does have photosensitivity and limits her sun exposure. She has excessive daytime sleepiness, known snoring and witnessed apneas. HSAT from 2020 showed possible mild obstructive sleep at but she never followed through with formal in lab sleep study. She states that she can fall asleep easily when sitting watching TV or working on her computer. She is a loud snorer, in fact her brother has been bothering her to be reevaluated for apnea. Per initial consultation: She is working on a daily basis. 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 Gets short of breath with trying to run or walking steeper slopes. Recent 6-minute walk test results were very good. Recently had testing for sleep apnea which suggested sleep apnea. It was a home sleep study test. Occasional dry cough but not frequent throughout the day. 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 Appetite has been normal. Repeat CT chest 10/23/2023: Soft tissue mass along the posterior superior segment of the right lower lobe is increased in size, currently measuring 26 x 21 x 28 mm in transverse, AP and craniocaudal dimensions respectively, while previously measuring 20 x 16 x 27 mm in these same orientations. Numerous additional small lung nodules are unchanged relative to previous studies including 12/05/2021 Pleural space: No pleural effusion. No pleural thickening. Lower neck, lymph nodes, and mediastinum: There is new right hilar lymphadenopathy, measuring up to 13 mm in short axis on image 121. Additional enlarged right hilar nodes are present. 8 mm right paratracheal node. No axillary lymphadenopathy. Bronchoscopy 11/22/2023: Pathology: A - Lymph Node, Transbronchial, Aspirate/Fine Needle Aspirate - 4R Negative for malignant cells. Benign lymphoid sample. B - Lymph Node, Transbronchial, Aspirate/Fine Needle Aspirate - 11RS Positive for malignant cells. Non-small cell carcinoma. C - Lymph Node, Transbronchial, Aspirate/Fine Needle Aspirate - 11RI Positive for malignant cells. Non-small cell carcinoma. She has no complaints today. Still working full-time. Presents for ongoing oncologic management. Interim history: Pt presents prior to C2D1 cis/alimta/keytruda She denies any new issues since last being seen. Tolerated C1 well. Notes mild decreased appetite and constipation following treatment both have since resolved. Denies N/V. No recent fevers, chills or NS. Denies. SOB, CP, cough. Denies rash or skin changes. Reviewed treatment schedule and expected side effects of treatment. All questions answered at this time. PAST MEDICAL HISTORY Diagnosis Date Hemorrhage of rectum and anus HYPERLIPIDEMIA MIXED 07/10/2005 Lung nodule 06/13/2016 June 25, 2017 subcentimeter lung nodules and interstitial lung disease also stable from 2017: check CT in 1 year. Primary biliary cholangitis (HCC) Snoring Systemic lupus erythematosus (HCC) PAST SURGICAL HISTORY Procedure Laterality Date BRONCHOSCOPY 07/31/2023 COLONOSCOPY FLX DX W/COLLJ SPEC WHEN PFRMD 06/29/2016 HAD VASOVAGAL RESPONSE DURING PROCEDURE SYST BP 60'S HR 40'S-GIVEN ATROPINE CORRJ HLX VLGS BNCTY SESMDC DSTL METAR OSTEOT 1985 DIAGNOSTIC ARTHROSCOPY SHOULDER +- SYNOVIAL BX Left 04/03/2018 Left shoulder arthroscopic subacromial decompression, rotator cuff repair, and biceps tenotomy EGD 12/25/2022 repeat 2 years ESOPHAGOGASTRODUODENOSCOPY TRANSORAL DIAGNOSTIC 11/11/2018 EGD ESOPHAGOGASTRODUODENOSCOPY TRANSORAL DIAGNOSTIC 11/22/2020 repeat in 2 years FOOT SURGERY HX 1986 HYSTEROSCOPY 06/21/2017 D&C LUNG BIOPSY HX 08/24/2023 SIGMOIDOSCOPY ?2000 SKIN BIOPSY HX TONSILLECTOMY HX prochlorperazine (COMPAZINE) 10 mg tablet Take 1 tablet by mouth every 6 hours as needed. For chemotherapy induced nausea and vomiting. folic acid 1 mg tablet Take 1 tablet by mouth once daily. cholecalciferol (VITAMIN D-3) 50 mcg (2,000 unit) tablet Take 4,000 Units by mouth once daily. pantoprazole DR (PROTONIX) 40 mg tablet Take 1 tablet by mouth once daily. ursodiol (ACTIGALL) 300 mg capsule Take 1 capsule by mouth three times a day. albuterol HFA (PROVENTIL HFA, VENTOLIN HFA) 90 mcg/actuation inhaler Inhale 2 Puffs as instructed every 4 hours as needed. hydrOXYchloroQUINE (PLAQUENIL) 200 mg tablet Take 1 tablet by mouth two times a day. clotrimazole-betamethasone (LOTRISONE) lotion Betamethasone / Clotrimazole Clotrimazole/Betamethasone Dip [Clotrimazole-Betamethasone Lot] 30 ML TP NEEDED PRN For SKIN June 14, 2017 Active 06-14-2017 [facility] ([id number]) tacrolimus (PROTOPIC) 0.1 % ointment Apply twice daily to affected areas on face Clobetasol Propionate (TEMOVATE) 0.05 % external solution Apply to affected areas on the scalp twice a day. Dispense 100ml as 30 day supply. biotin 5,000 mcg ODT Take 1 tablet by mouth once daily. Calcium-Cholecalciferol, D3, 500 mg-10 mcg (400 unit) per tablet Take 1 tablet by mouth once daily. triamcinolone acetonide (KENALOG) 0.1 % cream Apply to rash on body twice a day M-F, take weekends off ALLERGIES Allergen Reactions Adhesive Tape (Sammi* Itching Itching and redness FAMILY HISTORY Problem Relation Age of Onset Diabetes Mother Hypertension Mother Stroke Mother other (? SFTP) Mother Heart Father age 60's other (PBC) Father None Brother Obstructive Sleep Apnea Brother Colon Cancer Paternal Grandmother Colon Cancer Paternal Grandfather Anesthesia Problems No Family History Social History Tobacco Use Smoking status: Former Current packs/day: 0.00 Average packs/day: 0.2 packs/day for 30.0 years (4.5 ttl pk-yrs) Types: Cigarettes Start date: 1985 Quit date: 2016 Years since quittin.8 Smokeless tobacco: Never Tobacco comments: Pt smoked one pack a week x 30 years, quit 2016 Vaping Use Vaping status: Never Used Substance Use Topics Alcohol use: No Drug use: No REVIEW OF SYSTEMS: Constitutional: No episodes of fever and night sweats. Not significantly fatigued. All systems reviewed on 12/28/2023 with pertinent positives and negatives as outlined in the interval history. PHYSICAL EXAM: Vitals: Blood pressure 117/77, pulse 78, temperature 37.1 C (98.7 F), temperature source Temporal, weight 86 kg (189 lb 8 oz), SpO2 98%. General: Age-appropriate well developed. Appears well. No acute distress. HEENT: Normocephalic, no sclera icterus, external ears normal Neck: Supple, no JVD. Chest: Clear bilaterally, no wheezes, not labored. Heart: Normal S1 and S2, no abnormal sounds Abdomen: Soft, nontender, nondistended Extremities: No edema Neurological: Grossly intact Skin: Warm and dry with no rashes or ulcerations. Hematologic: no bruising or petechiae. Psychiatric: Alert and oriented x3. Emotional well-being assessment was performed. Pt denies depression, distress, and or problems with coping or adjustment. I have performed the physical exam today (12/28/2023) and have edited the note to correlate with current findings. IMAGING: PET [facility] 07/17/2023: 20.6 mm hypermetabolic nodule right mid posterior, right lower lobe with SUV 14.0. There was also FDG G uptake noted in the right thoracic perihilar and generating an SUV of 10.3. The maximal axial diameter the metabolic, morphologic abnormality is 10.7 mm. Genetic testing: NGS/biomarkers/flatbed truck driver mutation analyses: [employer] 10/30/2023: -No flatbed truck driver mutations. -BRAF p([id number]) variant of potential clinical significance. Tier II. ASSESSMENT/PLAN: Per Dr. Castle's Note 11/27/2023: (C34.31) Cancer of lower lobe of right lung (HCC) (primary encounter diagnosis) Assessment: -T1c N1 (lymph node station 11 RS and 11 RI) M0 stage IIB NSCLC, adenocarcinoma of the RLL. 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 -Reviewed most recent pathology. -Diagnosis remains stage IIb non-small cell lung cancer, adenocarcinoma. -Discussed with rheumatology. Interstitial lung disease is very mild. [place] to be a candidate for immunotherapy. -Discussed plan for preoperative chemotherapy and immunotherapy with cisplatin, pemetrexed and pembrolizumab. -I discussed the rationale, logistics, potential risks (including but not limited to possible hair thinning, cytopenias, nausea and vomiting, diarrhea, rash, neuropathy, nephropathy, infections, autoimmune side effects and the small potential for as a consequence of severe toxicity/complications of therapy), benefits and alternatives, as well as the personnel involved in the administration of cisplatin, pemetrexed and pembrolizumab. I answered her questions in detail and she verbalized understanding and agreed with the recommended therapy. Please see the electronic consent document for details of doses and schedule. -Discussed port placement but she wants to think about that for right now. Plan: -She has an upcoming stress test. Once that is completed and we know with certainty she is a surgical candidate, proceed with therapy. A/P: Cancer of lower lobe of right lung (HCC) (primary encounter diagnosis) - T1c N1 (lymph node station 11 RS and 11 RI) M0 stage IIB NSCLC, adenocarcinoma of the RLL. - planned to start C2D1 cis/alimta/keytruda on Sunday -ok to use today's labs for treatment - continue to follow with surgery - RTC as scheduled Mayco Archibald APRN.DIRECTOR OF PURCHASING I spent a total of 30 minutes on the date of the service which included preparing to see the patient, [id number] patient care, completing clinical documentation, obtaining and/or reviewing separately obtained history, and counseling and educating the patient/family/caregiver. Portions of this note including HPI, ROS, impression/plan may have been copied forward as to provide important historical information essential in contributing to medical decision making. Documentation has been reviewed and edited as necessary to support clinical decision making for today's visit and to reflect my own independent evaluation of this patient. documented in this encounter [facility] 12-18-2023 Telephone encounter Note Lab scheduled [facility] Work Phone: 12-18-2023 Miscellaneous Notes Lab scheduled Patient informed of Dr. Castle's response, stated understanding. Please schedule patient for a lab visit to check BMP on . Patient is agreeable to 8:00 am 12/19. Ann Randolph RN TOXICITY CHECK SYMPTOM ASSESSMENT The patient is on Cisplatin, Alimta, Keytruda Headache: No Visual Changes: No Dizziness: No Do you have any periods of confusion? No Mood changes: No Mouth or throat pain: Throat felt funny yesterday but feels normal today. Patient stated it felt like a minor sore throat. Appetite: decreased appetite, feels appetite is improving. Taste changes: Yes mouth was chalky last week, improved over the weekend. Nausea: No Vomiting: No Heartburn: had heartburn after treatment. Patient is happy that she is able to take the Protonix again. Weight gain/loss: Yes patient stated her weight on her home scale is 187 lbs. Episodes of palpitations/chest discomfort/pressure/pain No Shortness of breath: no Cough: yes, intermittent cough that she has had. Patient stated its worse when her mouth is dry. Diarrhea: no patient stated she is having normal BM's in the morning. Constipation: no Bladder/Urinary Changes: None Pain: No=0 (pain 0 on a scale of 0-10). Fever: No Chills: feels chilled at time, especially when her hands get cold. Cold sensitivity: No Numbness/weakness: No Edema: No Skin changes: No Itching: No Yellowing of skin or eyes: No Musculoskeletal/joint changes/issues No Bleeding issues: No Activity Level: Fair Do you need to take naps? Patient will nap for about an hour daily. Does the patient need interventions or same day appointment: reviewed hydration with patient. Reinforced CURRENT treatment education based on current and anticipated symptoms. Discussed port/line care and patient verbalizes understanding: Not Applicable Patient instructed to contact office or after hours Hematology/Oncology fellow for: temperature >= 100.4; questions or concerns. Patient verbalized understanding of when to seek medical attention and after hours number protocol. Ann Randolph RN Called patient, no answer, left a VM requesting a call back. Ann Randolph RN Serum BUN and creatinine elevated. This suggest dehydration. Advised her to push a lot of fluid. At least 64 ounces of water a day. Recheck BMP on . documented in this encounter [facility] 12-18-2023 Telephone encounter Note Patient informed of Dr. Castle's response, stated understanding. Please schedule patient for a lab visit to check BMP on . Patient is agreeable to 8:00 am 12/19. Ann Randolph RN [facility] 12-18-2023 Telephone encounter Note TOXICITY CHECK SYMPTOM ASSESSMENT The patient is on Cisplatin, Alimta, Keytruda Headache: No Visual Changes: No Dizziness: No Do you have any periods of confusion? No Mood changes: No Mouth or throat pain: Throat felt funny yesterday but feels normal today. Patient stated it felt like a minor sore throat. Appetite: decreased appetite, feels appetite is improving. Taste changes: Yes mouth was chalky last week, improved over the weekend. Nausea: No Vomiting: No Heartburn: had heartburn after treatment. Patient is happy that she is able to take the Protonix again. Weight gain/loss: Yes patient stated her weight on her home scale is 187 lbs. Episodes of palpitations/chest discomfort/pressure/pain No Shortness of breath: no Cough: yes, intermittent cough that she has had. Patient stated its worse when her mouth is dry. Diarrhea: no patient stated she is having normal BM's in the morning. Constipation: no Bladder/Urinary Changes: None Pain: No=0 (pain 0 on a scale of 0-10). Fever: No Chills: feels chilled at time, especially when her hands get cold. Cold sensitivity: No Numbness/weakness: No Edema: No Skin changes: No Itching: No Yellowing of skin or eyes: No Musculoskeletal/joint changes/issues No Bleeding issues: No Activity Level: Fair Do you need to take naps? Patient will nap for about an hour daily. Does the patient need interventions or same day appointment: reviewed hydration with patient. Reinforced CURRENT treatment education based on current and anticipated symptoms. Discussed port/line care and patient verbalizes understanding: Not Applicable Patient instructed to contact office or after hours Hematology/Oncology fellow for: temperature >= 100.4; questions or concerns. Patient verbalized understanding of when to seek medical attention and after hours number protocol. Ann Randolph RN [facility] 12-18-2023 Telephone encounter Note Called patient, no answer, left a VM requesting a call back. Ann Randolph RN [facility] 12-17-2023 Telephone encounter Note Serum BUN and creatinine elevated. This suggest dehydration. Advised her to push a lot of fluid. At least 64 ounces of water a day. Recheck BMP on . [facility] 12-11-2023 Telephone encounter Note Patient informed she can take Pepcid. Ann Randolph RN [facility] 12-11-2023 Miscellaneous Notes Patient informed she can take Pepcid. Ann Randolph RN CYCLE 1/DAY 1 POST TREATMENT CALL Today's date: December 11, 2023 Treatment Regimen: Cisplatin/Alimta/Keytruda C1D1 Date: 12/10/23 Called patient to follow-up on symptom management. Spoke with patient SYMPTOM ASSESSMENT Neuro: Headache started yesterday afternoon. Woke up this morning and the headache resolved. CV/Resp: Cough- I cough a little bit here and there occasionally. Denies new symptoms. GI/: Heartburn: Yes: patient stated she had coffee this morning and she is having a lot of acid reflux today. Patient is holding the Protonix until . Denies nausea Constipation- no BM today. Normally has a BM every morning. Advised stool softener or laxative if needed. Also discussed adding fiber, fluids, and exercise. Integument: None Activity: Patient reported no changes in energy level, energy level good Pain: No=0 (pain 0 on a scale of 0-10). Fever: No Chills: No Any new referrals needed? No Reinforced CURRENT treatment education based on current and anticipated symptoms. Discussed port/line care and patient verbalizes understanding: Not Applicable Patient instructed to contact office or after hours Hematology/Oncology fellow for: temperature >= 100.4; questions or concerns. Patient verbalized understanding of when to seek medical attention and after hours number protocol. Ann Randolph RN documented in this encounter [facility] 12-11-2023 Telephone encounter Note Images from the original note were not included. Actionable Finding Follow up Situation: Finding Acuity Linked Recommendation Recommendation Status Finding Status Pancreas/biliary Routing code: PB_1 Actionable US ABD RT UPPER QUADRANT in 6-12 months. Closed Reviewed Recommendations No Additional Follow-Up Needed Recommendation Procedure Ordered Performed Authorizing US ABD RT UPPER QUADRANT in 6-12 months. US ABD RIGHT UPPER QUADRANT 12/26/2022 12/26/2022 Allen Valdes MD Chart review summarized: Office note 10/17/[address] Valdes with clear documentation of the actionable finding, MRCP done to follow up, and the plan of care going forwar , Detailed Report, MYC message of result and plan View All Conversations on this Encounter MRCP completed 06/22/2023 MRI PANC/[facility]O WO/W IVCON (Order #[id number]) on 06/22/2023 - Order Result History Report Outreach attempts for Actionable Finding: Not indicated Outcome: Actionable Finding closed, follow up plan of care clearly documented by Dr. Valdes in GI who ordered and MRCP and followed up with the patient in an OV, MRCP revealed this to be Focal area of benign cystic adenomyomatosis corresponds with the described gallbladder wall nodular thickening on prior ultrasound. Rather than a gallbladder polyp [facility] 12-11-2023 Miscellaneous Notes Images from the original note were not included. Actionable Finding Follow up Situation: Finding Acuity Linked Recommendation Recommendation Status Finding Status Pancreas/biliary Routing code: PB_1 Actionable US ABD RT UPPER QUADRANT in 6-12 months. Closed Reviewed Recommendations No Additional Follow-Up Needed Recommendation Procedure Ordered Performed Authorizing US ABD RT UPPER QUADRANT in 6-12 months. US ABD RIGHT UPPER QUADRANT 12/26/2022 12/26/2022 Allen Valdes MD Chart review summarized: Office note 10/17/[address] Valdes with clear documentation of the actionable finding, MRCP done to follow up, and the plan of care going forwar , Detailed Report, MYC message of result and plan View All Conversations on this Encounter MRCP completed 06/22/2023 MRI PANC/[facility]O WO/W IVCON (Order #[id number]) on 06/22/2023 - Order Result History Report Outreach attempts for Actionable Finding: Not indicated Outcome: Actionable Finding closed, follow up plan of care clearly documented by Dr. Valdes in GI who ordered and MRCP and followed up with the patient in an OV, MRCP revealed this to be Focal area of benign cystic adenomyomatosis corresponds with the described gallbladder wall nodular thickening on prior ultrasound. Rather than a gallbladder polyp documented in this encounter [facility] 12-11-2023 Telephone encounter Note CYCLE 1/DAY 1 POST TREATMENT CALL Today's date: December 11, 2023 Treatment Regimen: Cisplatin/Alimta/Keytruda C1D1 Date: 12/10/23 Called patient to follow-up on symptom management. Spoke with patient SYMPTOM ASSESSMENT Neuro: Headache started yesterday afternoon. Woke up this morning and the headache resolved. CV/Resp: Cough- I cough a little bit here and there occasionally. Denies new symptoms. GI/: Heartburn: Yes: patient stated she had coffee this morning and she is having a lot of acid reflux today. Patient is holding the Protonix until . Denies nausea Constipation- no BM today. Normally has a BM every morning. Advised stool softener or laxative if needed. Also discussed adding fiber, fluids, and exercise. Integument: None Activity: Patient reported no changes in energy level, energy level good Pain: No=0 (pain 0 on a scale of 0-10). Fever: No Chills: No Any new referrals needed? No Reinforced CURRENT treatment education based on current and anticipated symptoms. Discussed port/line care and patient verbalizes understanding: Not Applicable Patient instructed to contact office or after hours Hematology/Oncology fellow for: temperature >= 100.4; questions or concerns. Patient verbalized understanding of when to seek medical attention and after hours number protocol. Ann Randolph RN [facility] 12-10-2023 Telephone encounter Note Schedule updated [facility] Work Phone: 12-10-2023 Miscellaneous Notes Schedule updated Patient aware. PSS- please cancel D8/D15 labs after C1. Patient will only need D8 and D15 during cycle 1. Thank you. Ann Randolph RN Needs to hold pantoprazole until day of each cycle chemotherapy when receives pemetrexed. Alf Castle DO documented in this encounter [facility] 12-10-2023 Telephone encounter Note Patient aware. PSS- please cancel D8/D15 labs after C1. Patient will only need D8 and D15 during cycle 1. Thank you. Ann Randolph RN [facility] 12-09-2023 Telephone encounter Note Needs to hold pantoprazole until of each cycle chemotherapy when receives pemetrexed. Alf Castle DO [facility] 12-07-2023 History of Present illness Narrative Vickey Schwartz 1960 Oncologic problem(s): 1) Stage II NSCLC, adenocarcinoma. HPI: The patient is a 63-year-old female with a past medical history as outlined below. The patient is a former smoker of approximately 7-pack-year, quit in 2015. She is on Plaquenil for history of lupus. She has primary biliary cholangitis. She had a nodule discovered on lung cancer screening study for surveillance of her interstitial pulmonary fibrosis. A CT of the chest done in June 2023 demonstrated an interval new 13 x 19 mm right lower lobe subpleural nodule. PET scan done in July showed the nodule to measure 20.6 mm with an SUV of 14.0. Perihilar lymph nodes measuring up to 11 mm which were stable in size with an SUV of 10.7. She underwent a CT-guided biopsy of the right lower lobe nodule. Pathology demonstrated poorly differentiated non-small cell carcinoma favoring adenocarcinoma. She underwent bronchoscopy with EBUS. Samples from 11 RS demonstrated rare atypical epithelial cells and station 7 was negative for malignant cells. 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 CT has been stable and pulmonary function tests do not show restriction or low diffusing capacity. Patient prefers pulmonary follow-up closer to home. Patient is asymptomatic so antifibrotic therapy has been on hold. 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 She denies significant dyspnea except for with extreme activity. Chronic cough or sputum production. No wheezing. She used to smoke a pack a week but quit in 2015 when she had note of a small nodule on chest CT. Today she states that she continues to do well. Her Plaquenil controls her cutaneous symptoms. She has no arthralgias, erythema or joint effusions, no skin lesions, no edema. She does have photosensitivity and limits her sun exposure. She has excessive daytime sleepiness, known snoring and witnessed apneas. HSAT from 2020 showed possible mild obstructive sleep at but she never followed through with formal in lab sleep study. She states that she can fall asleep easily when sitting watching TV or working on her computer. She is a loud snorer, in fact her brother has been bothering her to be reevaluated for apnea. Per initial consultation: She is working on a daily basis. 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 Gets short of breath with trying to run or walking steeper slopes. Recent 6-minute walk test results were very good. Recently had testing for sleep apnea which suggested sleep apnea. It was a home sleep study test. Occasional dry cough but not frequent throughout the day. 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 Appetite has been normal. Repeat CT chest 10/23/2023: Soft tissue mass along the posterior superior segment of the right lower lobe is increased in size, currently measuring 26 x 21 x 28 mm in transverse, AP and craniocaudal dimensions respectively, while previously measuring 20 x 16 x 27 mm in these same orientations. Numerous additional small lung nodules are unchanged relative to previous studies including 12/05/2021 Pleural space: No pleural effusion. No pleural thickening. Lower neck, lymph nodes, and mediastinum: There is new right hilar lymphadenopathy, measuring up to 13 mm in short axis on image 121. Additional enlarged right hilar nodes are present. 8 mm right paratracheal node. No axillary lymphadenopathy. Bronchoscopy 11/22/2023: Pathology: A - Lymph Node, Transbronchial, Aspirate/Fine Needle Aspirate - 4R Negative for malignant cells. Benign lymphoid sample. B - Lymph Node, Transbronchial, Aspirate/Fine Needle Aspirate - 11RS Positive for malignant cells. Non-small cell carcinoma. C - Lymph Node, Transbronchial, Aspirate/Fine Needle Aspirate - 11RI Positive for malignant cells. Non-small cell carcinoma. She has no complaints today. Still working full-time. Presents for ongoing oncologic management. Interim history: Pt presents prior to C1D1 cis/alimta/keytruda on Sunday. She denies any new issues since last being seen. Reviewed treatment schedule and expected side effects of treatment. All questions answered at this time. PAST MEDICAL HISTORY Diagnosis Date Hemorrhage of rectum and anus HYPERLIPIDEMIA MIXED 07/10/2005 Lung nodule 06/13/2016 June 25, 2017 subcentimeter lung nodules and interstitial lung disease also stable from 2017: check CT in 1 year. Primary biliary cholangitis (HCC) Snoring Systemic lupus erythematosus (HCC) PAST SURGICAL HISTORY Procedure Laterality Date BRONCHOSCOPY 07/31/2023 COLONOSCOPY FLX DX W/COLLJ SPEC WHEN PFRMD 06/29/2016 HAD VASOVAGAL RESPONSE DURING PROCEDURE SYST BP 60'S HR 40'S-GIVEN ATROPINE CORRJ HLX VLGS BNCTY SESMDC DSTL METAR OSTEOT 1985 DIAGNOSTIC ARTHROSCOPY SHOULDER +- SYNOVIAL BX Left 04/03/2018 Left shoulder arthroscopic subacromial decompression, rotator cuff repair, and biceps tenotomy EGD 12/25/2022 repeat 2 years ESOPHAGOGASTRODUODENOSCOPY TRANSORAL DIAGNOSTIC 11/11/2018 EGD ESOPHAGOGASTRODUODENOSCOPY TRANSORAL DIAGNOSTIC 11/22/2020 repeat in 2 years FOOT SURGERY HX 1986 HYSTEROSCOPY 06/21/2017 D&C LUNG BIOPSY HX 08/24/2023 SIGMOIDOSCOPY ?2000 SKIN BIOPSY HX TONSILLECTOMY HX prochlorperazine (COMPAZINE) 10 mg tablet Take 1 tablet by mouth every 6 hours as needed. For chemotherapy induced nausea and vomiting. folic acid 1 mg tablet Take 1 tablet by mouth once daily. cholecalciferol (VITAMIN D-3) 50 mcg (2,000 unit) tablet Take 4,000 Units by mouth once daily. pantoprazole DR (PROTONIX) 40 mg tablet Take 1 tablet by mouth once daily. ursodiol (ACTIGALL) 300 mg capsule Take 1 capsule by mouth three times a day. albuterol HFA (PROVENTIL HFA, VENTOLIN HFA) 90 mcg/actuation inhaler Inhale 2 Puffs as instructed every 4 hours as needed. hydrOXYchloroQUINE (PLAQUENIL) 200 mg tablet Take 1 tablet by mouth two times a day. clotrimazole-betamethasone (LOTRISONE) lotion Betamethasone / Clotrimazole Clotrimazole/Betamethasone Dip [Clotrimazole-Betamethasone Lot] 30 ML TP NEEDED PRN For SKIN June 14, 2017 Active 06-14-2017 [facility] ([id number]) tacrolimus (PROTOPIC) 0.1 % ointment Apply twice daily to affected areas on face Clobetasol Propionate (TEMOVATE) 0.05 % external solution Apply to affected areas on the scalp twice a day. Dispense 100ml as 30 day supply. biotin 5,000 mcg ODT Take 1 tablet by mouth once daily. Calcium-Cholecalciferol, D3, 500 mg-10 mcg (400 unit) per tablet Take 1 tablet by mouth once daily. triamcinolone acetonide (KENALOG) 0.1 % cream Apply to rash on body twice a day M-F, take weekends off ALLERGIES Allergen Reactions Adhesive Tape (Sammi* Itching Itching and redness FAMILY HISTORY Problem Relation Age of Onset Diabetes Mother Hypertension Mother Stroke Mother other (? SFTP) Mother Heart Father age 60's other (PBC) Father None Brother Obstructive Sleep Apnea Brother Colon Cancer Paternal Grandmother Colon Cancer Paternal Grandfather Anesthesia Problems No Family History Social History Tobacco Use Smoking status: Former Current packs/day: 0.00 Average packs/day: 0.2 packs/day for 30.0 years (4.5 ttl pk-yrs) Types: Cigarettes Start date: 1985 Quit date: 2016 Years since quittin.8 Smokeless tobacco: Never Tobacco comments: Pt smoked one pack a week x 30 years, quit 2016 Vaping Use Vaping status: Never Used Substance Use Topics Alcohol use: No Drug use: No REVIEW OF SYSTEMS: Constitutional: No episodes of fever and night sweats. Not significantly fatigued. All systems reviewed on 12/07/2023 with pertinent positives and negatives as outlined in the interval history. PHYSICAL EXAM: Vitals: Blood pressure 119/77, pulse 63, temperature 36.6 C (97.9 F), temperature source Temporal, weight 88 kg (194 lb), SpO2 97%. General: Age-appropriate well developed. Appears well. No acute distress. HEENT: Normocephalic, no sclera icterus, external ears normal Neck: Supple, no JVD. Chest: Clear bilaterally, no wheezes, not labored. Heart: Normal S1 and S2, no abnormal sounds Abdomen: Soft, nontender, nondistended Extremities: No edema Neurological: Grossly intact Skin: Warm and dry with no rashes or ulcerations. Hematologic: no bruising or petechiae. Psychiatric: Alert and oriented x3. Emotional well-being assessment was performed. Pt denies depression, distress, and or problems with coping or adjustment. I have performed the physical exam today (12/07/2023) and have edited the note to correlate with current findings. IMAGING: PET [facility] 07/17/2023: 20.6 mm hypermetabolic nodule right mid posterior, right lower lobe with SUV 14.0. There was also FDG G uptake noted in the right thoracic perihilar and generating an SUV of 10.3. The maximal axial diameter the metabolic, morphologic abnormality is 10.7 mm. Genetic testing: NGS/biomarkers/flatbed truck driver mutation analyses: [facility] 10/30/2023: -No flatbed truck driver mutations. -BRAF p([id number]) variant of potential clinical significance. Tier II. ASSESSMENT/PLAN: Per Dr. Castle's Note 11/27/2023: (C34.31) Cancer of lower lobe of right lung (HCC) (primary encounter diagnosis) Assessment: -T1c N1 (lymph node station 11 RS and 11 RI) M0 stage IIB NSCLC, adenocarcinoma of the RLL. 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 -Reviewed most recent pathology. -Diagnosis remains stage IIb non-small cell lung cancer, adenocarcinoma. -Discussed with rheumatology. Interstitial lung disease is very mild. [place] to be a candidate for immunotherapy. -Discussed plan for preoperative chemotherapy and immunotherapy with cisplatin, pemetrexed and pembrolizumab. -I discussed the rationale, logistics, potential risks (including but not limited to possible hair thinning, cytopenias, nausea and vomiting, diarrhea, rash, neuropathy, nephropathy, infections, autoimmune side effects and the small potential for as a consequence of severe toxicity/complications of therapy), benefits and alternatives, as well as the personnel involved in the administration of cisplatin, pemetrexed and pembrolizumab. I answered her questions in detail and she verbalized understanding and agreed with the recommended therapy. Please see the electronic consent document for details of doses and schedule. -Discussed port placement but she wants to think about that for right now. Plan: -She has an upcoming stress test. Once that is completed and we know with certainty she is a surgical candidate, proceed with therapy. A/P: Cancer of lower lobe of right lung (HCC) (primary encounter diagnosis) - T1c N1 (lymph node station 11 RS and 11 RI) M0 stage IIB NSCLC, adenocarcinoma of the RLL. - planned to start C1D1 cis/alimta/keytruda on Sunday -ok to use today's labs for treatment - RTC as scheduled Mayco Archibald APRN.DIRECTOR OF PURCHASING I spent a total of 30 minutes on the date of the service which included preparing to see the patient, [id number] patient care, completing clinical documentation, obtaining and/or reviewing separately obtained history, and counseling and educating the patient/family/caregiver. Portions of this note including HPI, ROS, impression/plan may have been copied forward as to provide important historical information essential in contributing to medical decision making. Documentation has been reviewed and edited as necessary to support clinical decision making for today's visit and to reflect my own independent evaluation of this patient. documented in this encounter [facility] 12-07-2023 Note [facility] 12-03-2023 Nurse Note This visit was completed by phone. Scaler Pre Chemo Patient identified by name and date of . YES Confirmed date and time for chemotherapy ? YES Other appointments (labs, imaging) discussed? YES Discussed where to park (adventure challenge instructor), charge for parking YES Discussed where to report (building/floor) YES Any pre-medications ordered? NO Described the infusion room and what to expect. (What to wear, what to bring [iPad, books] amount of time treatment can take, meals and CC options for food) YES Note: Discussed whether the patient can eat prior to labs and treatment. YES Who is driving you to and from treatment? Family member Discussed why it is important to bring someone with you. Yes, for the first treatment. Resources discussed (music therapy, Art therapy, pet therapy, etc.) NO Education on chemotherapy (drug, side effects) discussed and that the patient will be receiving a C1D1 call within 7 days of treatment. YES Other topics discussed, interventions needed: Ann Randolph RN ONCOLOGY PATIENT EDUCATION NOTE TOPIC: Chemotherapy Immunotherapy, Medications: Cisplatin/Alimta/keytruda patient called today for education for treatment of Non-Small Cell Lung Cancer Anticipated/Scheduled start date: 12/10/23 READINESS TO LEARN: COGNITIVE ABILITY: Alert and oriented MOTIVATION TO LEARN: Interested FAMILY SUPPORT: High - Very involved in pt care INSTRUCTION PROVIDED TO: Patient INSTRUCTION PROVIDED BY: Nurse Coordinator PATIENT LEARNS BEST BY: Multiple Methods FACTORS AFFECTING LEARNING: None PHYSICAL LIMITATIONS AFFECTING LEARNING: None LEARNING RESPONSE METHOD OF INSTRUCTION: Individual instruction Written instruction/Handouts Verbal instruction PATIENT/FAMILY RESPONSE: Verbalizes understanding of: CHEMOTHERAPY-Regimen, toxicity and side effects FOLLOW UP PLAN: Patient instructed to call with any further issues Recommend - Recommend continued instruction and follow up as directed Follow up phone call. Contact information given. SUPPLEMENTAL MATERIAL: Written material was provided at this visit with the following information: - Chemotherapy Immunotherapy education was provided by a pharmacist NO - Side effect management information was provided/discussed including but not limited to: anemia, appetite changes, arthralgia, bowel habit changes, diet, electrolyte disturbances, fatigue, hair loss, hypersensitivity reaction, infection, mouth hygiene, mucositis, myalgia, nausea/vomitting, neuropathy, neutropenia, peripheral neuropathy, rash, skin changes, taste changes, thrombocytopenia YES - Provided important phone numbers and contacts during and after hours. YES - Provided information on symptoms that require immediate assistance. YES - Provided Chemotherapy Immunotherapy when to call handouts YES - Preventing infection. YES - Treatment schedule and confirmation of appointment times. YES - Available support groups. YES - The importance of contraception during the course of chemotherapy YES - Neutropenic fever protocol discussed with patient, which included the importance of reporting any fever of 100.4F (38.0C) or greater to the healthcare team as noted on the provided wallet card and/or magnet. YES Time Spent: 70 minutes REFERRAL (RECOMMENDATION): N/A Ann Randolph RN [facility] 12-03-2023 Nurse Note This visit was completed by phone. Scaler Pre Chemo Patient identified by name and date of . YES Confirmed date and time for chemotherapy ? YES Other appointments (labs, imaging) discussed? YES Discussed where to park (adventure challenge instructor), charge for parking YES Discussed where to report (building/floor) YES Any pre-medications ordered? NO Described the infusion room and what to expect. (What to wear, what to bring [iPad, books] amount of time treatment can take, meals and CC options for food) YES Note: Discussed whether the patient can eat prior to labs and treatment. YES Who is driving you to and from treatment? Family member Discussed why it is important to bring someone with you. Yes, for the first treatment. Resources discussed (music therapy, Art therapy, pet therapy, etc.) NO Education on chemotherapy (drug, side effects) discussed and that the patient will be receiving a C1D1 call within 7 days of treatment. YES Other topics discussed, interventions needed: Ann Randolph RN ONCOLOGY PATIENT EDUCATION NOTE TOPIC: Chemotherapy Immunotherapy, Medications: Cisplatin/Alimta/keytruda patient called today for education for treatment of Non-Small Cell Lung Cancer Anticipated/Scheduled start date: 12/10/23 READINESS TO LEARN: COGNITIVE ABILITY: Alert and oriented MOTIVATION TO LEARN: Interested FAMILY SUPPORT: High - Very involved in pt care INSTRUCTION PROVIDED TO: Patient INSTRUCTION PROVIDED BY: Nurse Coordinator PATIENT LEARNS BEST BY: Multiple Methods FACTORS AFFECTING LEARNING: None PHYSICAL LIMITATIONS AFFECTING LEARNING: None LEARNING RESPONSE METHOD OF INSTRUCTION: Individual instruction Written instruction/Handouts Verbal instruction PATIENT/FAMILY RESPONSE: Verbalizes understanding of: CHEMOTHERAPY-Regimen, toxicity and side effects FOLLOW UP PLAN: Patient instructed to call with any further issues Recommend - Recommend continued instruction and follow up as directed Follow up phone call. Contact information given. SUPPLEMENTAL MATERIAL: Written material was provided at this visit with the following information: - Chemotherapy Immunotherapy education was provided by a pharmacist NO - Side effect management information was provided/discussed including but not limited to: anemia, appetite changes, arthralgia, bowel habit changes, diet, electrolyte disturbances, fatigue, hair loss, hypersensitivity reaction, infection, mouth hygiene, mucositis, myalgia, nausea/vomitting, neuropathy, neutropenia, peripheral neuropathy, rash, skin changes, taste changes, thrombocytopenia YES - Provided important phone numbers and contacts during and after hours. YES - Provided information on symptoms that require immediate assistance. YES - Provided Chemotherapy Immunotherapy when to call handouts YES - Preventing infection. YES - Treatment schedule and confirmation of appointment times. YES - Available support groups. YES - The importance of contraception during the course of chemotherapy YES - Neutropenic fever protocol discussed with patient, which included the importance of reporting any fever of 100.4F (38.0C) or greater to the healthcare team as noted on the provided wallet card and/or magnet. YES Time Spent: 70 minutes REFERRAL (RECOMMENDATION): N/A Ann Randolph RN documented in this encounter [facility] 12-03-2023 Telephone encounter Note Patient informed of Dr. Castle's response, stated understanding. Reviewed compazine instructions. Ann Randolph RN [facility] 12-03-2023 Miscellaneous Notes Patient informed of Dr. Castle's response, stated understanding. Reviewed compazine instructions. Ann Randolph RN She should hold Protonix the day prior to and for 2 days after the Alimta. She can resume on day 4. Alf Castle DO Schedule updated PSS- patient is getting cisplatin/alimta/keytruda Q21 days. Patient will getting CMP/MG on D8 and D15. Please adjust her schedule, thank you. Patient does not have any antiemetics ordered. Compazine pended. Dr. Castle, patient takes Protonix daily for Milton's esophagus. Can she take as directed or does she need to hold on treatment days for Alimta? Thank you. Ann Randolph RN documented in this encounter [facility] 12-03-2023 Telephone encounter Note She should hold Protonix the day prior to and for 2 days after the Alimta. She can resume on day 4. Alf Castle DO [facility] 12-03-2023 Telephone encounter Note Schedule updated [facility] Work Phone: 12-03-2023 Telephone encounter Note PSS- patient is getting cisplatin/alimta/keytruda Q21 days. Patient will getting CMP/MG on D8 and D15. Please adjust her schedule, thank you. Patient does not have any antiemetics ordered. Compazine pended. Dr. Castle, patient takes Protonix daily for Milton's esophagus. Can she take as directed or does she need to hold on treatment days for Alimta? Thank you. Ann Randolph RN [facility] 11-30-2023 Telephone encounter Note [facility] paperwork received for pt. Will complete and review with physician. Will fax to employer and send to internal scanning when completed. LALO Martinez-Enid [facility] 11-30-2023 Miscellaneous Notes [facility] paperwork received for pt. Will complete and review with physician. Will fax to employer and send to internal scanning when completed. LALO Martinez-Enid documented in this encounter [facility] 11-29-2023 History of Present illness Narrative RADIOLOGY SERVICE PROGRESS NOTE SERVICE DATE: 11/29/2023 SERVICE TIME: 8:44 AM PATIENT IDENTITY VERIFICATION COMPLETED USING TWO (2) STANDARD IDENTIFIERS: Name and Date of confirmed by patient verbally and Name and Date of confirmed by identification band FALL SCREENING: Has the patient had 2 falls in the last year or 1 fall with injury or currently using an Ambulatory Assistive Device (Walker, Cane, Wheelchair, Crutches, etc.)? No PATIENT GENDER DATA: .female : No ALLERGIES: Reviewed and unchanged MEDICATIONS REVIEWED: Yes PATIENT RELEVANT IMPLANT DATA REVIEWED: Not Applicable PATIENT PRESENTS WITH AN IMPLANTABLE OR ATTACHED PREPRESS SPECIALIST: No CREATININE: Creatinine Date Value Ref Range Status 10/22/2023 0.65 0.58 - 0.96 mg/dL Final 07/28/2023 0.66 0.58 - 0.96 mg/dL Final 05/12/2023 0.65 0.58 - 0.96 mg/dL Final Estimated Glomerular Filtration Rate Date Value Ref Range Status 10/22/2023 100 >=60 mL/min/1.73m Final Comment: Estimated Glomerular Filtration Rate (eGFR) is calculated using the 2020 CKD-EPI creatinine equation. This equation utilizes serum creatinine, sex, and age as parameters. The creatinine assay has traceable calibration to isotope dilution-mass spectrometry. Refer to KDIGO guidelines for clinical interpretation. In patients with unstable renal function, e.g. those with acute kidney injury, the eGFR may not accurately reflect actual GFR. eGFR- Date Value Ref Range Status 01/18/2021 >60 Final P.O.C.T. RESULTS: N/A November 29, [address] PERFORMED: No IV SITE: Ambulatory: A peripheral IV was started in the Left hand with a Angio cath: 22 gauge. POST EXAM PIV STATUS: Discontinued PROCEDURE TYPE: NM Stress: 13.1mCi [id number] was administered IV for Rest Imaging at 0841 by MILENA. 32.1 mCi [id number] was administered IV for Stress Imaging at 0951 by RT Akash(R). PATIENT DISCHARGED TO: Ambulatory patient, left [place] department area. A Diagnostic radioactive procedure has taken place, with no further precautions necessary other than routine body substance precautions. More information regarding radiation safety can be found using this link: [email or web address] SIGNATURE: Pati Pryor PATIENT NAME: Vickey Schwartz DATE: November 29, 2023 TIME: 8:44 AM PAGER/CONTACT #: documented in this encounter [facility] 11-29-2023 Note [facility] 11-27-2023 Telephone encounter Note 3 cycles scheduled Start email sent [facility] Work Phone: 11-27-2023 Miscellaneous Notes 3 cycles scheduled Start email sent Chemo ed.-SCHEDULED Patient needs to have NM stress test at [facility] PRIOR to beginning treatment (ordered yesterday by Dr. Feliciano).SCHEDULED Patient will begin every 3 week Cisplatin/Alimta/Keytruda after stress test. OV/CBC with every cycle. OV can alternate between Dr. Castle and the GANG RIPSAW OPERATOR. CMP and MAG D8 and D15. Cheli Aguero documented in this encounter [facility] 11-27-2023 Telephone encounter Note Chemo ed.-SCHEDULED Patient needs to have NM stress test at [facility] PRIOR to beginning treatment (ordered yesterday by Dr. Feliciano).SCHEDULED Patient will begin every 3 week Cisplatin/Alimta/Keytruda after stress test. OV/CBC with every cycle. OV can alternate between Dr. Castle and the GANG RIPSAW OPERATOR. CMP and MAG D8 and D15. Cheli Aguero [facility] 11-27-2023 History of Present illness Narrative Oncologic problem(s): 1) Stage II NSCLC, adenocarcinoma. HPI: The patient is a 63-year-old female with a past medical history as outlined below. The patient is a former smoker of approximately 7-pack-year, quit in 2015. She is on Plaquenil for history of lupus. She has primary biliary cholangitis. She had a nodule discovered on lung cancer screening study for surveillance of her interstitial pulmonary fibrosis. A CT of the chest done in June 2023 demonstrated an interval new 13 x 19 mm right lower lobe subpleural nodule. PET scan done in July showed the nodule to measure 20.6 mm with an SUV of 14.0. Perihilar lymph nodes measuring up to 11 mm which were stable in size with an SUV of 10.7. She underwent a CT-guided biopsy of the right lower lobe nodule. Pathology demonstrated poorly differentiated non-small cell carcinoma favoring adenocarcinoma. She underwent bronchoscopy with EBUS. Samples from 11 RS demonstrated rare atypical epithelial cells and station 7 was negative for malignant cells. 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 CT has been stable and pulmonary function tests do not show restriction or low diffusing capacity. Patient prefers pulmonary follow-up closer to home. Patient is asymptomatic so antifibrotic therapy has been on hold. 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 She denies significant dyspnea except for with extreme activity. Chronic cough or sputum production. No wheezing. She used to smoke a pack a week but quit in 2015 when she had note of a small nodule on chest CT. Today she states that she continues to do well. Her Plaquenil controls her cutaneous symptoms. She has no arthralgias, erythema or joint effusions, no skin lesions, no edema. She does have photosensitivity and limits her sun exposure. She has excessive daytime sleepiness, known snoring and witnessed apneas. HSAT from 2020 showed possible mild obstructive sleep at but she never followed through with formal in lab sleep study. She states that she can fall asleep easily when sitting watching TV or working on her computer. She is a loud snorer, in fact her brother has been bothering her to be reevaluated for apnea. Per initial consultation: She is working on a daily basis. 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 Gets short of breath with trying to run or walking steeper slopes. Recent 6-minute walk test results were very good. Recently had testing for sleep apnea which suggested sleep apnea. It was a home sleep study test. Occasional dry cough but not frequent throughout the day. 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 Appetite has been normal. Presents for ongoing oncologic management. Interim history: Repeat CT chest 10/23/2023: Soft tissue mass along the posterior superior segment of the right lower lobe is increased in size, currently measuring 26 x 21 x 28 mm in transverse, AP and craniocaudal dimensions respectively, while previously measuring 20 x 16 x 27 mm in these same orientations. Numerous additional small lung nodules are unchanged relative to previous studies including 12/05/2021 Pleural space: No pleural effusion. No pleural thickening. Lower neck, lymph nodes, and mediastinum: There is new right hilar lymphadenopathy, measuring up to 13 mm in short axis on image 121. Additional enlarged right hilar nodes are present. 8 mm right paratracheal node. No axillary lymphadenopathy. Bronchoscopy 11/22/2023: Pathology: A - Lymph Node, Transbronchial, Aspirate/Fine Needle Aspirate - 4R Negative for malignant cells. Benign lymphoid sample. B - Lymph Node, Transbronchial, Aspirate/Fine Needle Aspirate - 11RS Positive for malignant cells. Non-small cell carcinoma. C - Lymph Node, Transbronchial, Aspirate/Fine Needle Aspirate - 11RI Positive for malignant cells. Non-small cell carcinoma. She has no complaints today. Still working full-time. PAST MEDICAL HISTORY Diagnosis Date Hemorrhage of rectum and anus HYPERLIPIDEMIA MIXED 07/10/2005 Lung nodule 06/13/2016 June 25, 2017 subcentimeter lung nodules and interstitial lung disease also stable from 2017: check CT in 1 year. Primary biliary cholangitis (HCC) Snoring Systemic lupus erythematosus (HCC) PAST SURGICAL HISTORY Procedure Laterality Date BRONCHOSCOPY 07/31/2023 COLONOSCOPY FLX DX W/COLLJ SPEC WHEN PFRMD 06/29/2016 HAD VASOVAGAL RESPONSE DURING PROCEDURE SYST BP 60'S HR 40'S-GIVEN ATROPINE CORRJ HLX VLGS BNCTY SESMDC DSTL METAR OSTEOT 1985 DIAGNOSTIC ARTHROSCOPY SHOULDER +- SYNOVIAL BX Left 04/03/2018 Left shoulder arthroscopic subacromial decompression, rotator cuff repair, and biceps tenotomy EGD 12/25/2022 repeat 2 years ESOPHAGOGASTRODUODENOSCOPY TRANSORAL DIAGNOSTIC 11/11/2018 EGD ESOPHAGOGASTRODUODENOSCOPY TRANSORAL DIAGNOSTIC 11/22/2020 repeat in 2 years FOOT SURGERY HX 1986 HYSTEROSCOPY 06/21/2017 D&C LUNG BIOPSY HX 08/24/2023 SIGMOIDOSCOPY ?1999 SKIN BIOPSY HX TONSILLECTOMY HX cholecalciferol (VITAMIN D-3) 50 mcg (2,000 unit) tablet Take 4,000 Units by mouth once daily. pantoprazole DR (PROTONIX) 40 mg tablet Take 1 tablet by mouth once daily. ursodiol (ACTIGALL) 300 mg capsule Take 1 capsule by mouth three times a day. albuterol HFA (PROVENTIL HFA, VENTOLIN HFA) 90 mcg/actuation inhaler Inhale 2 Puffs as instructed every 4 hours as needed. hydrOXYchloroQUINE (PLAQUENIL) 200 mg tablet Take 1 tablet by mouth two times a day. clotrimazole-betamethasone (LOTRISONE) lotion Betamethasone / Clotrimazole Clotrimazole/Betamethasone Dip [Clotrimazole-Betamethasone Lot] 30 ML TP NEEDED PRN For SKIN June 14, 2017 Active 06-14-2017 [facility] ([id number]) tacrolimus (PROTOPIC) 0.1 % ointment Apply twice daily to affected areas on face Clobetasol Propionate (TEMOVATE) 0.05 % external solution Apply to affected areas on the scalp twice a day. Dispense 100ml as 30 day supply. biotin 5,000 mcg ODT Take 1 tablet by mouth once daily. Calcium-Cholecalciferol, D3, 500 mg-10 mcg (400 unit) per tablet Take 1 tablet by mouth once daily. triamcinolone acetonide (KENALOG) 0.1 % cream Apply to rash on body twice a day M-F, take weekends off ALLERGIES Allergen Reactions Adhesive Tape (Sammi* Itching Itching and redness FAMILY HISTORY Problem Relation Age of Onset Diabetes Mother Hypertension Mother Stroke Mother other (? SFTP) Mother Heart Father age 60's other (PBC) Father None Brother Obstructive Sleep Apnea Brother Colon Cancer Paternal Grandmother Colon Cancer Paternal Grandfather Anesthesia Problems No Family History Social History Tobacco Use Smoking status: Former Current packs/day: 0.00 Average packs/day: 0.2 packs/day for 30.0 years (4.5 ttl pk-yrs) Types: Cigarettes Start date: 1985 Quit date: 2016 Years since quittin.8 Smokeless tobacco: Never Tobacco comments: Pt smoked one pack a week x 30 years, quit 2016 Vaping Use Vaping status: Never Used Substance Use Topics Alcohol use: No Drug use: No REVIEW OF SYSTEMS: Constitutional: No episodes of fever and night sweats. Not significantly fatigued. Neuro: No GUTIERREZ, vertigo, dizziness and imbalance. No symptoms of neuropathy. HEENT: No recent change in voice, vision or hearing. Resp: See above. CVS: Denies exertional chest pain, PND, orthopnea and LE edema. GI: Denies dysphagia and odynophagia. Denies reflux, n/v, change in bowel habits and abdominal pain. : Denies dysuria or gross hematuria. No symptoms of bladder outlet obstruction. Endo: Denies hot flashes. Denies polyuria and polydipsia. Denies heat and cold intolerance. Musculoskeletal: Denies bone, back, joint and muscular pain. Derm: See above. Heme: Denies unusual bleeding and unexplained bruising. Psych: Normal mood. PHYSICAL EXAM: Vitals: Blood pressure 111/74, pulse 69, temperature 36.8 C (98.3 F), temperature source Temporal, weight 88 kg (194 lb), SpO2 98%. Well-appearing and in no acute distress. EYES: Sclerae are anicteric bilaterally. IMAGING: PET [facility] 07/17/2023: 20.6 mm hypermetabolic nodule right mid posterior, right lower lobe with SUV 14.0. There was also FDG G uptake noted in the right thoracic perihilar and generating an SUV of 10.3. The maximal axial diameter the metabolic, morphologic abnormality is 10.7 mm. 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 -BRAF p(Mgv420 Arg) variant of potential clinical significance. Tier II. ASSESSMENT/PLAN: (C34.31) Cancer of lower lobe of right lung (HCC) (primary encounter diagnosis) Assessment: -T1c N1 (lymph node station 11 RS and 11 RI) M0 stage IIB NSCLC, adenocarcinoma of the RLL. 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 -Reviewed most recent pathology. -Diagnosis remains stage IIb non-small cell lung cancer, adenocarcinoma. -Discussed with rheumatology. Interstitial lung disease is very mild. [place] to be a candidate for immunotherapy. -Discussed plan for preoperative chemotherapy and immunotherapy with cisplatin, pemetrexed and pembrolizumab. -I discussed the rationale, logistics, potential risks (including but not limited to possible hair thinning, cytopenias, nausea and vomiting, diarrhea, rash, neuropathy, nephropathy, infections, autoimmune side effects and the small potential for as a consequence of severe toxicity/complications of therapy), benefits and alternatives, as well as the personnel involved in the administration of cisplatin, pemetrexed and pembrolizumab. I answered her questions in detail and she verbalized understanding and agreed with the recommended therapy. Please see the electronic consent document for details of doses and schedule. -Discussed port placement but she wants to think about that for right now. Plan: -She has an upcoming stress test. Once that is completed and we know with certainty she is a surgical candidate, proceed with therapy. Portions of this documentation were copied and pasted from previous office visit notes in order to provide a cohesive continuity of the history. The note has been reviewed and edited and updated as necessary. I spent a total of 40 minutes on the date of the service which included preparing to see the patient, [id number] patient care, completing clinical documentation, obtaining and/or reviewing separately obtained history, performing a medically appropriate examination, counseling and educating the patient/family/caregiver, ordering medications, tests, or procedures, communicating with other HCPs (not separately reported), and communicating results to the patient/family/caregiver. Alf Castle DO documented in this encounter [facility] 11-27-2023 Note [facility] 11-22-2023 Telephone encounter Note Faxed FMLA paperwork from bronch completed 11/22/[address] Garduno. Fax confirmation received. Anna Roberts November 22, 2023 3:40 PM [facility] 11-22-2023 Miscellaneous Notes Faxed FMLA paperwork from bronch completed 11/22/[address] Garduno. Fax confirmation received. Anna Roberts November 22, 2023 3:40 PM documented in this encounter [facility] 11-22-2023 Note HNO ID: [id number] Author: SIDRA PERSAUD APRN.CRNA Service: ? Author Type: Nurse [employer] Consultant Type: Anesthesia Procedure Notes Filed: 11/22/2023 09:00 Note Text: ANESTHESIOLOGY PROCEDURE NOTE Airway General Information Procedure Start Time/Medication Administration: 11/22/2023 8:53 AM Procedure End Time: 11/22/2023 8:53 AM Patient location during procedure: OR Timeout Performed Pre-procedure: timeout performed Consent Obtained: Yes Patient identity confirmed: arm band and patient Staffing Anesthesiologist: Mae Correia MD Performed by: anesthesiologist Indications and Patient Condition Indications for airway management: anesthesia and airway protection Preoxygenated: yes anesthesia circuit Patient position: sniffing Method: asleep Difficult Mask: No Final Airway Details Final airway type: supraglottic airway Number of attempts at approach: 1 Final Supraglottic Airway: i-gel Size 4 Seal Adequate: yes SIGNATURE: Sidra Persaud APRN.[employer] PATIENT NAME: Vickey Schwartz DATE: November 22, 2023 TIME: 9:00 AM CSN: [id number] [facility] 11-22-2023 Note [facility] Patient Name: Vickey Schwartz Procedure Date: 11/22/2023 8:25 AM Date of : 1960 Admit Type: Outpatient Age: 63 Room: [facility] Gender: Female Attending MD: Champ Garduno MD, [id number] Procedure: Bronchoscopy Indications: Hilar lymphadenopathy of the right side, Known lung cancer of the right lower lobe Providers: Champ Garduno MD (Doctor), Veronique Matthews (assisting doctor) Referring MD: Janett Feliciano MD (Referring MD), Alf Castle (Referring MD) Requesting Physician: Patient Profile: Refer to note in patient chart for documentation of history and physical. Imaging Source: CT of chest and PET scan of whole body. Clinical Radiographic Stage: T1b, N1, M0. The patient's ECOG performance status grade is 1 - restricted in physically strenuous activity but ambulatory and able to carry out work of a light or sedentary nature. Medicines: General Anesthesia, See the Anesthesia note for documentation of the administered medications Complications: No immediate complications Procedure: Pre-Anesthesia Assessment: - A History and Physical has been performed. Patient meds and allergies have been reviewed. The risks and benefits of the procedure and the sedation options and risks were discussed with the patient. All questions were answered and informed consent was obtained. Patient identification and proposed procedure were verified prior to the procedure by the physician, the nurse and the anesthesiologist in the procedure room. Mental Status Examination: alert and oriented. Airway Examination: small/crowded oropharyngeal airway and Mallampati Class IV (tongue obstructs view of the soft palate). Respiratory Examination: clear to auscultation. CV Examination: RRR, no murmurs, no S3 or S4. ASA Grade Assessment: III - A patient with severe systemic disease. After reviewing the risks and benefits, the patient was deemed in satisfactory condition to undergo the procedure. The anesthesia plan was to use general anesthesia. Immediately prior to administration of medications, the patient was re-assessed for adequacy to receive sedatives. The heart rate, respiratory rate, oxygen saturations, blood pressure, adequacy of pulmonary ventilation, and response to care were monitored throughout the procedure. The physical status of the patient was re-assessed after the procedure. After obtaining informed consent, the Bronchoscope was introduced through the mouth, via laryngeal mask airway and advanced to the tracheobronchial tree. the Bronchoscope was introduced through the mouth, via laryngeal mask airway and advanced to the right lung only. The procedure was accomplished without difficulty. The patient tolerated the procedure well. Findings: The laryngeal mask airway is in good position. The vocal cords appear normal. The subglottic space is normal. The trachea is of normal caliber. The flex is sharp. The tracheobronchial tree was examined to at least the first subsegmental level. Bronchial mucosa and anatomy are normal; there are no endobronchial lesions, and no secretions. Once the airway inspection was completed, the standard bronchoscope was withdrawn and the convex probe endobronchial ultrasound (EBUS) bronchoscope was inserted through the same route. Lymph Nodes: The following lymph nodes were evaluated and/or sampled. Lymph node sizing was performed via endobronchial ultrasound. Sampling by transbronchial needle aspiration was also performed using an Olympus EUSA PharmaiShot 22 gauge needle and sent for routine cytology. - The 4R (lower paratracheal) node was 5.4 mm by EBUS, [address] and non-hypermetabolic via PET scan. Four samples with the needle were obtained. - The 10R (hilar) node was 3.1 mm by EBUS, [address] and non-hypermetabolic via PET scan. Sampling was not done due to size criteria (less than 5 mm). - The 11Rs (superior interlobar) node was 8.5 mm by EBUS, 9.5 mm by EBUS, [address], [address] and non-hypermetabolic via PET scan. Thirteen samples with the needle were obtained. - The 11Ri (inferior interlobar) node was 13.1 mm by EBUS, [address] and hypermetabolic via PET scan. Four samples with the needle were obtained. Lymph Nodes: Rapid On-Site Evaluation (YULY): Preliminary cytology was suggestive of benign-appearing lymphoid tissue (final results are pending) in the right lower paratracheal region (level 4R). Preliminary cytology was suggestive of non small cell carcinoma (final results are pending) in the right superior interlobar region (level 11Rs) and right inferior interlobar region (level 11Ri). Impression: - Hilar lymphadenopathy of the right side - Known lung cancer of the right lower lobe - Lymph node sizing and sampling was performed. - Rapid On-Site Evaluation (YULY): Preliminary cytology was suggestive suggestive of benign-appearing lymp (more content not included)... [place] [id number] History of Present illness Narrative PULMONARY AMBULATORY TELEPHONE VISIT Vickey Schwartz has consented to this telephone encounter. Persons Present: patient Chief Complaint/Reason: Questions about bronchoscopy scheduled tomorrow HPI: See below Data Reviewed: Most recent labs Most recent imaging Total Time Spent: 15 minutes Champ Garduno MD Date of service: November 21, 2023 REASON FOR VISIT: NSCLC with hilar adenopathy REQUESTED BY: Janett Feliciano MD IMPRESSION/OPINION: Hypermetabolic hilar adenopathy - Atypical cell from 11Rs suspicious for malignancy - Hypermetabolic 11Ri NSCLC of RLL, poorly diff favoring adenocarcinoma - [id number] - No targetable mutation - S/p staging EBUS with lymphoid sample from 7 CTD-associated ILD, UIP pattern -On HCQ -Mild obstructive defect with significant response to bronchodilators -Normal diffusion Primary biliary cirrhosis I reviewed the findings on the most recent CT of the chest and prior CT and pet imaging. We discussed the need for bronchoscopy to clarify the status of the hilar lymph nodes and obtain more tissue. I discussed the details of the procedure under general anesthesia. We reviewed the risks benefits and alternatives. She is interested in proceeding. Thanks for discussing this case at the [facility] today. As I am reviewing this lady's chart I wanted to clarify a few things. As we discussed, 11Rs station was sampled during EBUS and showed atypical cells on final path. 11R1 looked hypermetabolic on PET but it was not sampled during EBUS. She had CT guided biopsy at [facility] afterward. Could the PD-L1 and NGS be done on that specimen from [facility]? From reading his note, Dr. Castle is concerned about her ILD and possible underlying CTD (?SLE) and potential toxicity with neoadjuvant chemo-immuno approach. Is that enough to consider upfront surgery with lymph node dissection instead and bypass repeat bronchoscopy with EBUS? Please let me know and I will plan accordingly. I have cc'ed Dr. Ross and Dr. Castle also. Plan & Recommendations: - Proceed with bronchoscopy and limited EBUS under general anesthesia -We discussed the need to be fasting after midnight. She is okay to take her morning medication with a sip of water -Preoperative blood work and EKG are reviewed. -All questions were answered. She verbalized understanding. -Results will be forwarded to Dr. Castle, Dr. Ross, and Dr. Feliciano Thanks for letting me participate in this patient's care. Please feel free to call me with questions and concerns. My assessment, plan, and recommendations were communicated to the referring physician through medical records. Champ Garduno MD Pulmonary & Critical Care Staff Respiratory [place] - [facility] SUBJECTIVE -HPI November 21, 2023 This is a very pleasant lady who is here for preop evaluation. Unfortunately she was not able to connect to [employer] due to poor Internet connection at work. She is a 63-year-old lady with trivial smoking history quit in 2015, interstitial lung disease, lupus on hydroxychloroquine, and primary biliary cholangitis. She was following with Dr. Ross at [facility] and was evaluated by Dr. Hightower for concern of interstitial lung disease. She had high-resolution CT scan in June 2023 that revealed new right lower lobe nodule compared to prior CT imaging in 2021. PET/CT imaging was done and she was scheduled for bronchoscopy. She had EBUS guided mediastinal staging which revealed atypical cells suspicious for malignancy and station 11 RS. She went on to undergo CT-guided biopsy of the right lower lobe nodule locally that showed poorly differentiated non-small cell lung cancer. Her case was discussed at the chest tumor board and concern for hilar involvement and Station 11 RI was raised. She was evaluated by medical oncology and the team was in favor of obtaining more tissue for further molecular testing and confirmation of superior and inferior ipsilateral hilar involvement. She denies persistent cough or sputum production. She denies chest pain or hemoptysis. Her weight is stable and her appetite is good. She reports shortness of breath only with strenuous activity walking long distance or at a fast pace. 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 No Does the patient have COPD/Emphysema? No Does the patient have a family history of lung cancer? No Medications and allergies were reviewed. Past medical surgical social and family history were reviewed Current Outpatient Medications Medication Sig cholecalciferol (VITAMIN D-3) 50 mcg (2,000 unit) tablet Take 4,000 Units by mouth once daily. pantoprazole DR (PROTONIX) 40 mg tablet Take 1 tablet by mouth once daily. ursodiol (ACTIGALL) 300 mg capsule Take 1 capsule by mouth three times a day. albuterol HFA (PROVENTIL HFA, VENTOLIN HFA) 90 mcg/actuation inhaler Inhale 2 Puffs as instructed every 4 hours as needed. hydrOXYchloroQUINE (PLAQUENIL) 200 mg tablet Take 1 tablet by mouth two times a day. clotrimazole-betamethasone (LOTRISONE) lotion Betamethasone / Clotrimazole Clotrimazole/Betamethasone Dip [Clotrimazole-Betamethasone Lot] 30 ML TP NEEDED PRN For SKIN June 14, 2017 Active 06-14-2017 [facility] ([id number]) tacrolimus (PROTOPIC) 0.1 % ointment Apply twice daily to affected areas on face Clobetasol Propionate (TEMOVATE) 0.05 % external solution Apply to affected areas on the scalp twice a day. Dispense 100ml as 30 day supply. biotin 5,000 mcg ODT Take 1 tablet by mouth once daily. Calcium-Cholecalciferol, D3, 500 mg-10 mcg (400 unit) per tablet Take 1 tablet by mouth once daily. triamcinolone acetonide (KENALOG) 0.1 % cream Apply to rash on body twice a day M-, take weekends off No current facility-administered medications for this visit. PAST MEDICAL HISTORY Diagnosis Date Hemorrhage of rectum and anus HYPERLIPIDEMIA MIXED 07/10/2005 Lung nodule 06/13/2016 June 25, 2017 subcentimeter lung nodules and interstitial lung disease also stable from 2017: check CT in 1 year. Primary biliary cholangitis (HCC) Snoring Systemic lupus erythematosus (HCC) PAST SURGICAL HISTORY Procedure Laterality Date BRONCHOSCOPY 07/31/2023 COLONOSCOPY FLX DX W/COLLJ SPEC WHEN PFRMD 06/29/2016 HAD VASOVAGAL RESPONSE DURING PROCEDURE SYST BP 60'S HR 40'S-GIVEN ATROPINE CORRJ HLX VLGS BNCTY SESMDC DSTL METAR OSTEOT 1986 DIAGNOSTIC ARTHROSCOPY SHOULDER +- SYNOVIAL BX Left 04/03/2018 Left shoulder arthroscopic subacromial decompression, rotator cuff repair, and biceps tenotomy EGD 12/25/2022 repeat 2 years ESOPHAGOGASTRODUODENOSCOPY TRANSORAL DIAGNOSTIC 11/11/2018 EGD ESOPHAGOGASTRODUODENOSCOPY TRANSORAL DIAGNOSTIC 11/22/2020 repeat in 2 years FOOT SURGERY HX 1985 HYSTEROSCOPY 06/21/2017 D&C LUNG BIOPSY HX 08/24/2023 SIGMOIDOSCOPY ?1999 SKIN BIOPSY HX TONSILLECTOMY HX Social History Tobacco Use Smoking status: Former Current packs/day: 0.00 Average packs/day: 0.2 packs/day for 30.0 years (4.5 ttl pk-yrs) Types: Cigarettes Start date: 1985 Quit date: 2015 Years since quittin.7 Smokeless tobacco: Never Tobacco comments: Pt smoked one pack a week x 30 years, quit 2016 Vaping Use Vaping status: Never Used Substance Use Topics Alcohol use: No Drug use: No FAMILY HISTORY Problem Relation Age of Onset Diabetes Mother Hypertension Mother Stroke Mother other (? SFTP) Mother Heart Father age 60's other (PBC) Father None Brother Obstructive Sleep Apnea Brother Colon Cancer Paternal Grandmother Colon Cancer Paternal Grandfather Anesthesia Problems No Family History OBJECTIVE PHYSICAL EXAM: Could not be done today Diagnostic tests were reviewed: Laboratory data: Reviewed in [facility] PATHOLOGY A - Lymph Node, Station 7, Transbronchial Fine Needle Aspirate: Negative for malignant cells. Polymorphous lymphoid sample. B - Lymph Node, Station 11RS, Transbronchial Fine Needle Aspirate: Suspicious for malignancy. See comment. Polymorphous lymphoid sample. Part B. The smears show cohesive markedly atypical cells with large nuclei, small prominent nucleoli and scant cytoplasm focally admixed with lymphocytes. While the findings are concerning for malignancy such as non-small cell carcinoma, large cell neuroendocrine, basaloid squamous cell carcinoma and SMARCA4 def. carcinoma, among others, due to the limited material present for additional ancillary testing, a definitive diagnosis is precluded. Web Press Operator Apprentice slides were reviewed in consultation with Dr. Maris Tomlin and Dr. Kailyn Mejia, who concurs. Imaging: I have personally reviewed and confirmed the imaging findings. CT scan: 07-05-2023 1. Interval development of a 13 x 19 mm right lower lobe subpleural pulmonary nodule since the prior chest CT from 12/05/2021, suspicious for a primary lung malignancy. 2. Findings consistent with fibrotic interstitial lung disease including subpleural reticulation, mild traction bronchiectasis/bronchiolectasis, architectural distortion, and subpleural cystic change, not substantially changed compared to the most recent chest CT from 12/05/2021, mildly progressed since 10/21/2018. These findings are probably due to the patient's history of lupus. 3. A few additional small (less than 5 mm) pulmonary nodules are unchanged since 12/05/2021, likely benign. 4. Stable mildly enlarged distal paraesophageal lymph node since the prior chest CT dated 12/05/2021, likely benign/reactive given stability. No new thoracic lymphadenopathy. PET-CT 07-17-2023: reviewed PFT: Mild obstructive defect Sleep Study: None Echocardiogram: None documented in this encounter [facility] 11-21-2023 Note [facility] 11-18-2023 Telephone encounter Note Scheduled and patient informed. [facility] Work Phone: 11-18-2023 Miscellaneous Notes Scheduled and patient informed. She is scheduled for bronchoscopy 11/21. Please schedule her to see me 11/26 at 8:50 am (block for 40 min est. complex) and let her know. Alf Castle DO documented in this encounter [facility] 11-17-2023 Telephone encounter Note She is scheduled for bronchoscopy 11/21. Please schedule her to see me 11/26 at 8:50 am (block for 40 min est. complex) and let her know. Alf Castle DO [facility] Work Phone: 11-12-2023 Instructions Mera Farris PA-C - 11/12/2023 3:25 PM EDT Images from the original note were not included. [facility]est[facility] PATIENT PREOPERATIVE INSTRUCTIONS Champ Garduno MD has scheduled you for your procedure at this surgery center: [facility]: [phone] -- [address] [place] [address]. Please read below carefully for your personalized instructions. Dietary Restrictions: - No solid food after midnight. - You may have 12 ounces of clear liquids (water, clear juices such as apple juice or gatorade, carbonated beverages, clear tea, black coffee, jello) until 2 hours before scheduled arrival at facility. Medications: Unless instructed differently below, stay on all of your medications until your surgery. If you start any new medications after today's visit, please contact your surgeon. Pre-Surgery Med Instructions Medication Instructions pantoprazole DR (PROTONIX) 40 mg tablet Take the day of surgery with a small sip of water ursodiol (ACTIGALL) 300 mg capsule Please hold this the morning of your procedure albuterol HFA (PROVENTIL HFA, VENTOLIN HFA) 90 mcg/actuation inhaler Ok to use the morning of surgery (if needed) hydrOXYchloroQUINE (PLAQUENIL) 200 mg tablet Take the day of surgery with a small sip of water If you start any new medications after today's visit, please contact the surgeon's office. Blood Thinning Medications: - Stop NSAIDS (Ibuprofen, Advil, Aleve, Motrin, Celebrex, Mobic, etc.) 7 days before surgery, as directed by your surgeon. - Stop Aspirin 7 days before surgery, as directed by your surgeon. - Stop Vitamin E, ALL multi-vitamins, herbals and dietary supplements 14 days before surgery. - You may take Tylenol (Acetaminophen) or any of your pain medications that do not contain aspirin or NSAIDS as needed. Ok to take Tylenol IF ok with your liver team Important Reminders: - If you are prescribed inhalers for breathing, continue using them. - Candy, mints, and tobacco products are NOT permitted the morning of surgery. - Hearing aids, dentures and glasses may be worn the morning of surgery. - NO jewelry, body piercings, makeup, hairpins or contacts are to be worn the day of surgery. If you develop symptoms such as a fever, cold, or flu, or have other changes to your health within TWO DAYS of scheduled surgery or the morning of surgery, please contact the surgery center above. Personal Belongings: -Please have photo ID and insurance cards. -If you do not have a copy of advance directives on file with us, please bring a copy with you on the day of surgery. - Leave ALL valuables and money at home or with family members. For Outpatient Procedures: - YOU MUST HAVE A RESPONSIBLE SOLID WASTE MANAGER TAKE YOU HOME. A TELETYPE OR VARITYPE KEYBOARD OPERATOR OR RAIL CAR REPAIR CARMAN CANNOT BE MADE A RESPONSIBLE SOLID WASTE MANAGER. - We recommend that a responsible person stays with you overnight to take care of you. - You cannot stay in a hotel alone after outpatient surgery. You will not be permitted to have your surgery, if you do not have someone to take care of you. Arrival Time for Surgery: - The Surgery Center or hospital where you are having surgery will call the afternoon before surgery (or Sunday for Sunday surgery) with a scheduled arrival time. - If you have not heard by 4 pm, please contact the surgery center above. Please be aware that emergency situations arise, which may delay or change your surgical time. If this happens, we will notify you as soon as possible and regret any inconvenience. If you already have an Advance Directive, please fax a copy to [phone] or email to for it to be added to your chart. If you do not have an Advance Directive, you can find the appropriate form and more information at [email or web address]. We recommend that you complete the Advance Directive form found on the website and bring it with you the day of your surgery. It can be witnessed and scanned into your chart that day. Mera Farris PA-C documented in this encounter [facility] 11-12-2023 History and physical note Images from the original note were not included. PREANESTHESIA CONSULT CLINIC TELEHEALTH VISIT Patient has been identified by name and date of : Yes This is a virtual visit using [employer] Video Visit. It require patient-provider interaction for the medical decision making as documented below. Reason for contact: PACC visit Accompanied by: Self Scheduled Surgery: Procedure(s) (LRB): BRONCHOSCOPY FLEXIBLE ADULT (N/A) I have communicated my name and active licensure. The patient's identity and physical location were verified at the time of this visit. Either the patient or their legal welding equipment sales representative has been informed of the risks and benefits of -- and alternatives to -- treatment through a remote evaluation and consents to proceed with the evaluation remotely. ASSESSMENT: 1. Preop examination Scheduled for above procedure 2. Obesity, Class I, BMI 30-34.9 BMI 34 3. Interstitial lung disease (HCC) Uses Albuterol prn infrequently. Patient denies acute symptoms and states her breathing is stable. 4. Former light tobacco smoker Quit 2016, 1 pp week x 30 years. 5. Primary biliary cirrhosis (HCC) 6. Sclerosing cholangitis Patient is on ursodiol tid for this. She denies nausea, vomiting, abdominal pain, abdominal swelling, edema or acute symptoms. Most recent labs reveal normal LFTs, platelet and INR. 7. RODRIGO (obstructive sleep apnea) States mild. Has not completed in person sleep study yet. States wants to address lung mass first before she looks into this further. Does not have/use CPAP 8. 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 9. Milton's esophagus Asymptomatic and feeling well on Protonix. Stable METS: Walk a block or two on level ground (2.75 METs) Climb a flight of stairs or walk up a hill (5.50 METs) Patient denies any chest pain or undue shortness of breath with the above physical activity. Walking - can walk at a normal pace without CP/SOB Denies edema, orthopnea, syncope ANESTHESIA FINDINGS: Intubation History: No history of difficult intubation Significant Anesthesia Considerations: Difficult IV/Vein Access: states it's hard to find a vein. Has not needed ultrasound guidance States she tends to have alarms go off as she's waking up from anesthesia (unsure if her HR or oxygen), but states once she's fully awake, this doesn't happen any more Airway Exam: General: Normal appearance Mallampati Score is unable to assess due to poor lighting, MP III per previous assessment ULBT: Class I - Lower incisors can bite the upper lip above the carly line Neck: Normal appearance and function , extra skin Mouth: Normal tongue size and Mouth opening greater than 2 finger breaths Dentition: Caps/crowns and multiple missing teeth Airway History: No abnormal airway history STOP BANG Score: RODRIGO does not use CPAP/BiPAP Subjective CHIEF COMPLAINT: Patient presents with: Pre-Op Visit HPI: This is a 63 year old female who presents with right lower lobe lung mass. She admits to occasional/infrequent dry cough (rare clear/white phlegm). She denies hemoptysis or weight loss. She had biopsy 08/24/2023 that was positive for poorly differentiated non-small cell carcinoma, favor adenocarcinoma. She elects to proceed with above procedure. 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 Primary biliary cholangitis (HCC) Snoring Systemic lupus erythematosus (HCC) PAST SURGICAL HISTORY Procedure Laterality Date BRONCHOSCOPY 07/31/2023 COLONOSCOPY FLX DX W/COLLJ SPEC WHEN PFRMD 06/29/2016 HAD VASOVAGAL RESPONSE DURING PROCEDURE SYST BP 60'S HR 40'S-GIVEN ATROPINE CORRJ HLX VLGS BNCTY SESMDC DSTL METAR OSTEOT 1985 DIAGNOSTIC ARTHROSCOPY SHOULDER +- SYNOVIAL BX Left 04/03/2018 Left shoulder arthroscopic subacromial decompression, rotator cuff repair, and biceps tenotomy EGD 12/25/2022 repeat 2 years ESOPHAGOGASTRODUODENOSCOPY TRANSORAL DIAGNOSTIC 11/11/2018 EGD ESOPHAGOGASTRODUODENOSCOPY TRANSORAL DIAGNOSTIC 11/22/2020 repeat in 2 years FOOT SURGERY HX 1986 HYSTEROSCOPY 06/21/2017 D&C LUNG BIOPSY HX 08/24/2023 SIGMOIDOSCOPY ?2000 SKIN BIOPSY HX TONSILLECTOMY HX FAMILY HISTORY Problem Relation Age of Onset Diabetes Mother Hypertension Mother Stroke Mother other (? SFTP) Mother Heart Father age 60's other (PBC) Father None Brother Obstructive Sleep Apnea Brother Colon Cancer Paternal Grandmother Colon Cancer Paternal Grandfather Anesthesia Problems No Family History Social History Tobacco Use Smoking status: Former Current packs/day: 0.00 Average packs/day: 0.2 packs/day for 30.0 years (4.5 ttl pk-yrs) Types: Cigarettes Start date: 1985 Quit date: 2016 Years since quittin.7 Smokeless tobacco: Never Tobacco comments: Pt smoked one pack a week x 30 years, quit 2016 Vaping Use Vaping status: Never Used Substance Use Topics Alcohol use: No Drug use: No ALLERGIES Allergen Reactions Adhesive Tape (Sammi* Itching Itching and redness MEDICATIONS: Current Outpatient Medications Medication Sig pantoprazole DR (PROTONIX) 40 mg tablet Take 1 tablet by mouth once daily. ursodiol (ACTIGALL) 300 mg capsule Take 1 capsule by mouth three times a day. albuterol HFA (PROVENTIL HFA, VENTOLIN HFA) 90 mcg/actuation inhaler Inhale 2 Puffs as instructed every 4 hours as needed. hydrOXYchloroQUINE (PLAQUENIL) 200 mg tablet Take 1 tablet by mouth two times a day. cholecalciferol (VITAMIN D-3) 50 mcg (2,000 unit) tablet Take 4,000 Units by mouth once daily. clotrimazole-betamethasone (LOTRISONE) lotion Betamethasone / Clotrimazole Clotrimazole/Betamethasone Dip [Clotrimazole-Betamethasone Lot] 30 ML TP NEEDED PRN For SKIN June 14, 2017 Active 06-14-2017 [facility] ([id number]) tacrolimus (PROTOPIC) 0.1 % ointment Apply twice daily to affected areas on face Clobetasol Propionate (TEMOVATE) 0.05 % external solution Apply to affected areas on the scalp twice a day. Dispense 100ml as 30 day supply. biotin 5,000 mcg ODT Take 1 tablet by mouth once daily. Calcium-Cholecalciferol, D3, 500 mg-10 mcg (400 unit) per tablet Take 1 tablet by mouth once daily. triamcinolone acetonide (KENALOG) 0.1 % cream Apply to rash on body twice a day M-F, take weekends off No current facility-administered medications for this visit. COVID-19 Immunization Status Overdue - Covid-19 Vaccine ( season) Overdue since 10/07/2023 12/16/2022 Imm Admin: COVID-19 vaccine, age 12+ yr, season (MODERNA) 07/10/2022 Imm Admin: COVID-19 vaccine, age 12+ yr, bivalent (MODERNA) 10/19/2021 Imm Admin: COVID-19 vaccine, age 12+ yr, bivalent (Lipocalyx) Only the first 3 history entries have been loaded, but more history exists. Had COVID-19 2021. Denies complications or hospitalization. REVIEW OF SYSTEMS: Pain Assessment: General: No weight loss, malaise or fevers. Neuro: No history of TIA's, stroke, SHOE DRESSER tumor, impaired sensorium, hemiplegia, paraplegia or quadraplegia. No neurological symptoms or problems. Respiratory: Positive for Interstitial lung disease, former light smoker, Negative for COPD, Daily bronchodilator use for previous 3 months, Home O2, Pneumonia within 6 weeks (date), URI < 2 weeks Cardiovascular: No history of HTN requiring medication, no history of angina, CHF, MD, cardiac surgery or stents. Denies rest pain, gangrene or revascularization/amputation for PVD. No history of cardiovascular symptoms or problems. GI: Positive for Milton's esophagus, Primary Biliary cirrhosis, Negative for Heartburn, Nausea, Vomiting, Abdominal pain, Hepatitis, Pancreatitis, abdominal swelling, pedal edema, easy bruising/bleeding : No history of dysuria, frequency or incontinence,, stones or chronic kidney disease Endocrine: No history of diabetes. Has not taken steroids within the past 30 days. No history of endocrinological symptoms or problems. Hematology: No history of bleeding or clotting disorder. Pt is not taking anti-coagulation or platelet medications. No history of hematological symptoms or problems. Oncology: See HPI Psych: No history of psychiatric symptoms or problems. Denies PTSD Musculoskeletal: Negative for joint pain or swelling, back pain or muscle pain. 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 VIDEO EXAM: (if completed, exam performed via video enabled technology) GENERAL: alert and appropriate, in no distress, well-hydrated, well nourished, and happy, smiling, interactive HEAD: normocephalic, no abnormality or lesion noted EYES: no injection NOSE: external nose normal without rhinorrhea NECK: full ROM, extra skin RESPIRATORY: breathing non-labored and no grunting/flaring/retractions CHEST: equal chest rise with normal respiratory effort HEART: patient was unable to find her pulse. No cyanosis. Normal capillary refill ABDOMEN: soft and non-tender NEUROLOGIC: no cerebral deficits noted Diagnostic tests reviewed for today's visit: Lab Value Units Date High Low HB 14.2 g/dL 07/28/2023 15.5 11.5 HCT 40.7 % 07/28/2023 46.0 36.0 WBC 7.67 k/uL 07/28/2023 11.00 3.70 PLT 208 k/uL 07/28/2023 400 150 NA 139 mmol/L 07/28/2023 144 136 K 4.5 mmol/L 07/28/2023 5.1 3.7 GLUC 86 mg/dL 07/28/2023 99 74 BUN 15 mg/dL 07/28/2023 21 7 CREAT 0.65 mg/dL 10/22/2023 0.96 0.58 PTSEC No results within date range. INR No results within date range. APTT No results within date range. ALT 20 U/L 07/28/2023 38 7 AST 23 U/L 07/28/2023 35 13 TBILI 0.5 mg/dL 07/28/2023 1.3 0.2 TSH No results within date range. Scanned labs 08/24/2023: Unremarkable CBC - normal WBC, H/H and platelet Normal INR Spirometry 07/05/2023 IMPRESSION: Spirometry shows a reduced FEV1/FVC ratio; but individually normal FVC and FEV1 predicted values.This pattern indicates mild obstruction or a normal variant. The increase in FEF 25-75 post-bronchodilator reflects an improvement in the small airway obstruction. The diffusing capacity is normal. CT chest 10/23/2023 IMPRESSION: 1. Interval enlargement of the known right lower lobe soft tissue mass. 2. Development of right hilar lymphadenopathy. 3. Otherwise, no significant change. PET scan 07/17/2023 MRI brain 09/21/2023 IMPRESSION: No abnormal intracranial enhancement to indicate intracranial metastasis. Chronic changes and incidental findings as described. Hemoglobin A1C (%) Date Value 07/08/2016 5.2 PLAN: This patient is optimally prepared for surgery. CONSULTS: Patient does not require consults for optimization at this time. The Following Tests/Procedures Have Been Initiated: No new testing ordered Planned Anesthetic: Per anesthesia choice Instructions Given to Patient: Patient given verbal instructions and voices comprehension and compliance. Copy sent electronically via My Chart, email, or mobile device. Encounter started as a virtual visit (audio-visual) but was converted to a telephone visit (audio only) due to insurmountable technological challenges. This is a virtual visit. It required patient-provider interaction for the medical decision making as documented above. SIGNATURE: Mera Farris PA-C PATIENT NAME: Vickey Schwartz DATE: 11/12/2023 TIME: 3:00 PM PAGER/CONTACT #: [facility] 11-12-2023 History and physical note Images from the original note were not included. PREANESTHESIA CONSULT CLINIC TELEHEALTH VISIT Patient has been identified by name and date of : Yes This is a virtual visit using [employer] Video Visit. It require patient-provider interaction for the medical decision making as documented below. Reason for contact: PACC visit Accompanied by: Self Scheduled Surgery: Procedure(s) (LRB): BRONCHOSCOPY FLEXIBLE ADULT (N/A) I have communicated my name and active licensure. The patient's identity and physical location were verified at the time of this visit. Either the patient or their legal welding equipment sales representative has been informed of the risks and benefits of -- and alternatives to -- treatment through a remote evaluation and consents to proceed with the evaluation remotely. ASSESSMENT: 1. Preop examination Scheduled for above procedure 2. Obesity, Class I, BMI 30-34.9 BMI 34 3. Interstitial lung disease (HCC) Uses Albuterol prn infrequently. Patient denies acute symptoms and states her breathing is stable. 4. Former light tobacco smoker Quit 2016, 1 pp week x 30 years. 5. Primary biliary cirrhosis (HCC) 6. Sclerosing cholangitis Patient is on ursodiol tid for this. She denies nausea, vomiting, abdominal pain, abdominal swelling, edema or acute symptoms. Most recent labs reveal normal LFTs, platelet and INR. 7. RODRIGO (obstructive sleep apnea) States mild. Has not completed in person sleep study yet. States wants to address lung mass first before she looks into this further. Does not have/use CPAP 8. 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 9. Milton's esophagus Asymptomatic and feeling well on Protonix. Stable METS: Walk a block or two on level ground (2.75 METs) Climb a flight of stairs or walk up a hill (5.50 METs) Patient denies any chest pain or undue shortness of breath with the above physical activity. Walking - can walk at a normal pace without CP/SOB Denies edema, orthopnea, syncope ANESTHESIA FINDINGS: Intubation History: No history of difficult intubation Significant Anesthesia Considerations: Difficult IV/Vein Access: states it's hard to find a vein. Has not needed ultrasound guidance States she tends to have alarms go off as she's waking up from anesthesia (unsure if her HR or oxygen), but states once she's fully awake, this doesn't happen any more Airway Exam: General: Normal appearance Mallampati Score is unable to assess due to poor lighting, MP III per previous assessment ULBT: Class I - Lower incisors can bite the upper lip above the carly line Neck: Normal appearance and function , extra skin Mouth: Normal tongue size and Mouth opening greater than 2 finger breaths Dentition: Caps/crowns and multiple missing teeth Airway History: No abnormal airway history STOP BANG Score: RODRIGO does not use CPAP/BiPAP Subjective CHIEF COMPLAINT: Patient presents with: Pre-Op Visit HPI: This is a 63 year old female who presents with right lower lobe lung mass. She admits to occasional/infrequent dry cough (rare clear/white phlegm). She denies hemoptysis or weight loss. She had biopsy 08/24/2023 that was positive for poorly differentiated non-small cell carcinoma, favor adenocarcinoma. She elects to proceed with above procedure. 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 Primary biliary cholangitis (HCC) Snoring Systemic lupus erythematosus (HCC) PAST SURGICAL HISTORY Procedure Laterality Date BRONCHOSCOPY 07/31/2023 COLONOSCOPY FLX DX W/COLLJ SPEC WHEN PFRMD 06/29/2016 HAD VASOVAGAL RESPONSE DURING PROCEDURE SYST BP 60'S HR 40'S-GIVEN ATROPINE CORRJ HLX VLGS BNCTY SESMDC DSTL METAR OSTEOT 1985 DIAGNOSTIC ARTHROSCOPY SHOULDER +- SYNOVIAL BX Left 04/03/2018 Left shoulder arthroscopic subacromial decompression, rotator cuff repair, and biceps tenotomy EGD 12/25/2022 repeat 2 years ESOPHAGOGASTRODUODENOSCOPY TRANSORAL DIAGNOSTIC 11/11/2018 EGD ESOPHAGOGASTRODUODENOSCOPY TRANSORAL DIAGNOSTIC 11/22/2020 repeat in 2 years FOOT SURGERY HX 1985 HYSTEROSCOPY 06/21/2017 D&C LUNG BIOPSY HX 08/24/2023 SIGMOIDOSCOPY ?1999 SKIN BIOPSY HX TONSILLECTOMY HX FAMILY HISTORY Problem Relation Age of Onset Diabetes Mother Hypertension Mother Stroke Mother other (? SFTP) Mother Heart Father age 60's other (PBC) Father None Brother Obstructive Sleep Apnea Brother Colon Cancer Paternal Grandmother Colon Cancer Paternal Grandfather Anesthesia Problems No Family History Social History Tobacco Use Smoking status: Former Current packs/day: 0.00 Average packs/day: 0.2 packs/day for 30.0 years (4.5 ttl pk-yrs) Types: Cigarettes Start date: 1985 Quit date: 2016 Years since quittin.7 Smokeless tobacco: Never Tobacco comments: Pt smoked one pack a week x 30 years, quit 2016 Vaping Use Vaping status: Never Used Substance Use Topics Alcohol use: No Drug use: No ALLERGIES Allergen Reactions Adhesive Tape (Sammi* Itching Itching and redness MEDICATIONS: Current Outpatient Medications Medication Sig pantoprazole DR (PROTONIX) 40 mg tablet Take 1 tablet by mouth once daily. ursodiol (ACTIGALL) 300 mg capsule Take 1 capsule by mouth three times a day. albuterol HFA (PROVENTIL HFA, VENTOLIN HFA) 90 mcg/actuation inhaler Inhale 2 Puffs as instructed every 4 hours as needed. hydrOXYchloroQUINE (PLAQUENIL) 200 mg tablet Take 1 tablet by mouth two times a day. cholecalciferol (VITAMIN D-3) 50 mcg (2,000 unit) tablet Take 4,000 Units by mouth once daily. clotrimazole-betamethasone (LOTRISONE) lotion Betamethasone / Clotrimazole Clotrimazole/Betamethasone Dip [Clotrimazole-Betamethasone Lot] 30 ML TP NEEDED PRN For SKIN June 14, 2017 Active 06-14-2017 [facility] ([id number]) tacrolimus (PROTOPIC) 0.1 % ointment Apply twice daily to affected areas on face Clobetasol Propionate (TEMOVATE) 0.05 % external solution Apply to affected areas on the scalp twice a day. Dispense 100ml as 30 day supply. biotin 5,000 mcg ODT Take 1 tablet by mouth once daily. Calcium-Cholecalciferol, D3, 500 mg-10 mcg (400 unit) per tablet Take 1 tablet by mouth once daily. triamcinolone acetonide (KENALOG) 0.1 % cream Apply to rash on body twice a day M-F, take weekends off No current facility-administered medications for this visit. COVID-19 Immunization Status Overdue - Covid-19 Vaccine () Overdue since 10/07/2023 12/16/2022 Imm Admin: COVID-19 vaccine, age 12+ yr, 2022- season (MODERNA) 07/10/2022 Imm Admin: COVID-19 vaccine, age 12+ yr, bivalent (MODERNA) 10/19/2021 Imm Admin: COVID-19 vaccine, age 12+ yr, bivalent (Lipocalyx) Only the first 3 history entries have been loaded, but more history exists. Had COVID-19 2021. Denies complications or hospitalization. REVIEW OF SYSTEMS: Pain Assessment: General: No weight loss, malaise or fevers. Neuro: No history of TIA's, stroke, SHOE DRESSER tumor, impaired sensorium, hemiplegia, paraplegia or quadraplegia. No neurological symptoms or problems. Respiratory: Positive for Interstitial lung disease, former light smoker, Negative for COPD, Daily bronchodilator use for previous 3 months, Home O2, Pneumonia within 6 weeks (date), URI < 2 weeks Cardiovascular: No history of HTN requiring medication, no history of angina, CHF, MD, cardiac surgery or stents. Denies rest pain, gangrene or revascularization/amputation for PVD. No history of cardiovascular symptoms or problems. GI: Positive for Milton's esophagus, Primary Biliary cirrhosis, Negative for Heartburn, Nausea, Vomiting, Abdominal pain, Hepatitis, Pancreatitis, abdominal swelling, pedal edema, easy bruising/bleeding : No history of dysuria, frequency or incontinence,, stones or chronic kidney disease Endocrine: No history of diabetes. Has not taken steroids within the past 30 days. No history of endocrinological symptoms or problems. Hematology: No history of bleeding or clotting disorder. Pt is not taking anti-coagulation or platelet medications. No history of hematological symptoms or problems. Oncology: See HPI Psych: No history of psychiatric symptoms or problems. Denies PTSD Musculoskeletal: Negative for joint pain or swelling, back pain or muscle pain. 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 VIDEO EXAM: (if completed, exam performed via video enabled technology) GENERAL: alert and appropriate, in no distress, well-hydrated, well nourished, and happy, smiling, interactive HEAD: normocephalic, no abnormality or lesion noted EYES: no injection NOSE: external nose normal without rhinorrhea NECK: full ROM, extra skin RESPIRATORY: breathing non-labored and no grunting/flaring/retractions CHEST: equal chest rise with normal respiratory effort HEART: patient was unable to find her pulse. No cyanosis. Normal capillary refill ABDOMEN: soft and non-tender NEUROLOGIC: no cerebral deficits noted Diagnostic tests reviewed for today's visit: Lab Value Units Date High Low HB 14.2 g/dL 07/28/2023 15.5 11.5 HCT 40.7 % 07/28/2023 46.0 36.0 WBC 7.67 k/uL 07/28/2023 11.00 3.70 PLT 208 k/uL 07/28/2023 400 150 NA 139 mmol/L 07/28/2023 144 136 K 4.5 mmol/L 07/28/2023 5.1 3.7 GLUC 86 mg/dL 07/28/2023 99 74 BUN 15 mg/dL 07/28/2023 21 7 CREAT 0.65 mg/dL 10/22/2023 0.96 0.58 PTSEC No results within date range. INR No results within date range. APTT No results within date range. ALT 20 U/L 07/28/2023 38 7 AST 23 U/L 07/28/2023 35 13 TBILI 0.5 mg/dL 07/28/2023 1.3 0.2 TSH No results within date range. Scanned labs 08/24/2023: Unremarkable CBC - normal WBC, H/H and platelet Normal INR Spirometry 07/05/2023 IMPRESSION: Spirometry shows a reduced FEV1/FVC ratio; but individually normal FVC and FEV1 predicted values.This pattern indicates mild obstruction or a normal variant. The increase in FEF 25-75 post-bronchodilator reflects an improvement in the small airway obstruction. The diffusing capacity is normal. CT chest 10/23/2023 IMPRESSION: 1. Interval enlargement of the known right lower lobe soft tissue mass. 2. Development of right hilar lymphadenopathy. 3. Otherwise, no significant change. PET scan 07/17/2023 MRI brain 09/21/2023 IMPRESSION: No abnormal intracranial enhancement to indicate intracranial metastasis. Chronic changes and incidental findings as described. Hemoglobin A1C (%) Date Value 07/08/2016 5.2 PLAN: This patient is optimally prepared for surgery. CONSULTS: Patient does not require consults for optimization at this time. The Following Tests/Procedures Have Been Initiated: No new testing ordered Planned Anesthetic: Per anesthesia choice Instructions Given to Patient: Patient given verbal instructions and voices comprehension and compliance. Copy sent electronically via My Chart, email, or mobile device. Encounter started as a virtual visit (audio-visual) but was converted to a telephone visit (audio only) due to insurmountable technological challenges. This is a virtual visit. It required patient-provider interaction for the medical decision making as documented above. SIGNATURE: Mera Farris PA-C PATIENT NAME: Vickey Schwartz DATE: 11/12/2023 TIME: 3:00 PM PAGER/CONTACT #: documented in this encounter [facility] 11-07-2023 Telephone encounter Note I called Vickey after receiving a message from the appointment center that she reached out. Vickey is scheduled to see Dr Garduno virtually on 11/20, and her bronchoscopy with him on 11/21. 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 I provided her with the fax number to the [employer] office in the event this happens. [facility] 11-07-2023 Miscellaneous Notes I called Vickey after receiving a message from the appointment center that she reached out. Vickey is scheduled to see Dr Garduno virtually on 11/20, and her bronchoscopy with him on 11/21. 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 I provided her with the fax number to the [employer] office in the event this happens. documented in this encounter [facility] 11-07-2023 Telephone encounter Note I am still having difficulty getting a call to go through on Vickey's cell phone, so I reached out to her at home. Vickey was unavailable, and I left a voice message outlining the reason for my call and requesting a call back [facility] 11-07-2023 Miscellaneous Notes I am still having difficulty getting a call to go through on Vickey's cell phone, so I reached out to her at home. Vickey was unavailable, and I left a voice message outlining the reason for my call and requesting a call back documented in this encounter [facility] 11-07-2023 Telephone encounter Note Attempted to contact Vickey on mobile number, but call could not complete. Will attempt home phone number later in the day [facility] 11-07-2023 Miscellaneous Notes Attempted to contact Vickey on mobile number, but call could not complete. Will attempt home phone number later in the day documented in this encounter [facility] 11-06-2023 Note [facility] 11-06-2023 History of Present illness Narrative Bronchoscopy Request: Please schedule patient for the following: Outpatient Visit: New Consult with Staff (Dr. David or Dr. Garduno): Patient Choice (Virtual or In-Person) or Established Clinic Visit with Dr. Ny Ross: Patient Choice (Virtual or In-Person), Bronchoscopy Procedures: Diagnostic EBUS Timing: Next available Time Allotment/Tier: TIER 1: I HOUR Physician Performing Bronchoscopy: Bronchoscopist on service Anesthesia Type: General Special Requests: Sample stations 11Rs and 11Ri Needs Labs: No Needs EKG: No Needs CT prior: No Does the pt need cardiac clearance? No Is he/she on anticoagulants/anti-plt therapy? No Is patient on GLP-1 agonsits (ie Ozempic, Mounjaro, Trulicity, etc)? No Is patient on SGLT2 inhibitors ( -flozin drugs - Jardiance, etc)? No IF YES TO EITHER OF ABOVE TWO QUESTIONS PLEASE REFER TO [facility] ANESTHESIA GUIDANCE ON HOLDING Nursing Considerations: (ie: shelter, TB, respiratory isolation, etc.) none Diagnosis/Reason for Bronchoscopy: NSCLC in RLL. Needs to reassess 11Rs (only atypical on prior sampling) and sample 11Ri for PDL-1 and NGS panel and consideration of neoadjuvant chemoimmunotherapy. Discussed at [place] tumor board Referred by: Janett Feliciano MD and Alf Castle MD Reviewed by: Champ Garduno MD ADDENDUM: CBC with diff: WBC 7.67 07/28/2023 RBC 4.42 07/28/2023 Hemoglobin 14.2 07/28/2023 Hematocrit 40.7 07/28/2023 MCV 92.1 07/28/2023 MCH 32.1 07/28/2023 MCHC 34.9 07/28/2023 RDW-CV 12.0 07/28/2023 Platelet Count 208 07/28/2023 MPV 11.3 07/28/2023 Neut% 68.4 07/28/2023 Lymph% 20.1 07/28/2023 [place]% 7.6 07/28/2023 Eosin% 2.7 07/28/2023 Baso% 0.7 07/28/2023 Abs Neut (ANC) 5.25 07/28/2023 Abs [place] 0.58 07/28/2023 Abs Eosin 0.21 07/28/2023 Abs Baso 0.05 07/28/2023 Potassium Date Value Ref Range Status 07/28/2023 4.5 3.7 - 5.1 mmol/L Final 05/12/2023 4.9 3.7 - 5.1 mmol/L Final 04/04/2023 4.1 3.7 - 5.1 mmol/L Final Sodium Date Value Ref Range Status 07/28/2023 139 136 - 144 mmol/L Final 05/12/2023 144 136 - 144 mmol/L Final 04/04/2023 140 136 - 144 mmol/L Final BUN Date Value Ref Range Status 07/28/2023 15 7 - 21 mg/dL Final Creatinine Date Value Ref Range Status 10/22/2023 0.65 0.58 - 0.96 mg/dL Final 07/28/2023 0.66 0.58 - 0.96 mg/dL Final 05/12/2023 0.65 0.58 - 0.96 mg/dL Final 04/04/2023 0.61 0.58 - 0.96 mg/dL Final documented in this encounter [facility] 11-01-2023 Telephone encounter Note It is the responsibility of the presenting physician to facilitate any and all recommendations discussed during Thoracic Tumor Board if they are to be implemented into the patients plan of care. Pending Staff Approval [facility] THORACIC TUMOR BOARD: October 30, 2023 Presenting Physicians: Dr. Feliciano, Dr. Ana Paula Schwartz [id number] Diagnosis: RLL lung cancer Staging Evaluation: Pending: Bronch/EBUS Staff in Attendance Representing: Thoracic Surgery and Interventional Pulmonary HPI: Vickey Schwartz is a 63 year old yr. old female Tobacco Use: Types: Cigarettes with a pmh significant for PAST MEDICAL HISTORY Diagnosis Date Hemorrhage of rectum and anus HYPERLIPIDEMIA MIXED 07/10/2005 Lung nodule 06/13/2016 June 25, 2017 subcentimeter lung nodules and interstitial lung disease also stable from 2017: check CT in 1 year. Primary biliary cholangitis (HCC) Snoring Systemic lupus erythematosus (HCC) Outcome: Vickey Schwartz's history, imaging, and pathology were reviewed by the physicians in attendance. The collaborative recommendation would be to perform a limited re EBUS. These recommendations will be communicated by the presenting physicians. The above documentation represents the discussion outcomes after review of this patients case during the weekly Thoracic Tumor Board conference. Final treatment planning will be determined by the primary treatment team staff physicians. Felton Cline RN [facility] Work Phone: 11-01-2023 Miscellaneous Notes It is the responsibility of the presenting physician to facilitate any and all recommendations discussed during Thoracic Tumor Board if they are to be implemented into the patients plan of care. Pending Staff Approval [facility]ULTI DISCIPLINARY THORACIC TUMOR BOARD: October 30, 2023 Presenting Physicians: Dr. Feliciano, Dr. Garduno Vickey Schwartz [id number] Diagnosis: RLL lung cancer Staging Evaluation: Pending: Bronch/EBUS Staff in Attendance Representing: Thoracic Surgery and Interventional Pulmonary HPI: Vickey Schwartz is a 63 year old yr. old female Tobacco Use: Types: Cigarettes with a pmh significant for PAST MEDICAL HISTORY Diagnosis Date Hemorrhage of rectum and anus HYPERLIPIDEMIA MIXED 07/10/2005 Lung nodule 06/13/2016 June 25, 2017 subcentimeter lung nodules and interstitial lung disease also stable from 2017: check CT in 1 year. Primary biliary cholangitis (HCC) Snoring Systemic lupus erythematosus (HCC) Outcome: Vickey Schwartz's history, imaging, and pathology were reviewed by the physicians in attendance. The collaborative recommendation would be to perform a limited re EBUS. These recommendations will be communicated by the presenting physicians. The above documentation represents the discussion outcomes after review of this patients case during the weekly Thoracic Tumor Board conference. Final treatment planning will be determined by the primary treatment team staff physicians. Felton Cline RN documented in this encounter [facility] 10-30-2023 Note [facility] 10-30-2023 History of Present illness Narrative THORACIC TELEHEALTH PROGRESS NOTE This is a telephone encounter initiated for an established patient, parent or guardian not originating from a related Evaluation & Management service provided within the previous 7 days nor leading to an Evaluation & Management service or procedure within the next 24 hours or soonest available appointment. Vickey Schwartz did not answer home phone or mobile phone Persons Present: did not answer Chief Complaint/Reason: clinical T1cN1 RLL Lung Cancer Last Clinic Note 10/04/2023 Janett Feliciano MD I had the sincere pleasure of seeing the patient in my Thoracic Surgery Clinic. This very pleasant 63-year-old woman was seen today following a new diagnosis of non- small cell lung cancer in the right lower lobe. Medical history and review of systems have been studied. I have also independently reviewed images from a variety of different radiographic studies including but not limited to chest CT scans and fused PET-CT scan dating back over a couple of years ago. I have also studied pulmonary function testing including walk oximetry, DLCO, and spirometry. Finally, I have assessed the patient with my care team here at [facility] and shared my thoughts with the patient and her family in detail. In brief, this very pleasant, fairly low burden smoker, has a history of interstitial lung disease. She has preserved pulmonary function tests and pretty good gas exchange. She walked about 80% of predicted with some subtle desaturation to 95%, despite only traveling at 2.2 miles an hour. She is a low burden smoker who has smoked for almost 40 years, but just a few cigarettes a day per her own report. That would place her at approximately 10 pack-years of tobacco use. She from tobacco in 2016 and so her interval of cessation is now 8 years. She is being followed for interstitial lung disease and has undergone routine CT scans. One of these scans more recently has identified a right lower lobe nodule and this has grown while under observation. Ultimately, this nodule became suspicious for non-small cell lung cancer and the patient underwent biopsies and endobronchial ultrasounds, which identified what appears to be a stage II non-small cell lung cancer. Note, the patient has no heart disease history nor any recent stress test. IMPRESSION: Suspect stage II with hilar involvement from a right lower lobe non- small cell lung cancer. I will have the patient plugged into our Oncology team and we will then try to come up with a multidisciplinary treatment plan which may very well include induction chemoimmunotherapy. Hematology/ Oncology Alf Castle MD 10/22/2023 ASSESSMENT/PLAN: (C34.31) Cancer of lower lobe of right lung (HCC) (primary encounter diagnosis) Assessment: -T1c N1 (lymph node station 11 RS, transbronchial FNA suspicious for malignancy) M0 stage IIB NSCLC, adenocarcinoma of the RLL. 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 -Talked with her and her family today about the typical approach. 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 Plan: -Repeat CT chest with IV contrast since it has been 3 months since most recent imaging. -Will order molecular panel and IHC for PD-L1 through pathology lab at [facility]. I spent a total of 50 minutes on the date of the service which included preparing to see the patient, [id number] patient care, completing clinical documentation, obtaining and/or reviewing separately obtained history, performing a medically appropriate examination, counseling and educating the patient/family/caregiver, ordering medications, tests, or procedures, communicating with other HCPs (not separately reported), and communicating results to the patient/family/caregiver. Alf Castle, DO CT Chest 10/23/23 IMPRESSION: 1. Interval enlargement of the known right lower lobe soft tissue mass. 2. Development of right hilar lymphadenopathy. 3. Otherwise, no significant change. Impression: 63 year old female with clinical T1cN1 non small cell cancer of the right lower lobe of lung Plan: - will reschedule visit as patient did not answer phone Tessie Kaufman APRN.GALILEA documented in this encounter [facility] 10-23-2023 History of Present illness Narrative Radiology Service Progress Note DATE OF SERVICE: October 23, 2023 TIME: 8:50 AM PATIENT IDENTITY VERIFICATION COMPLETED USING TWO (2) STANDARD IDENTIFIERS: Name and Date of confirmed by patient verbally. FALL SCREENING: Has the patient had 2 falls in the last year or 1 fall with injury or currently using an Ambulatory Assistive Device (Walker, Cane, Wheelchair, Crutches, etc.)? No PATIENT GENDER DATA: Female. status: : No status: NO. PATIENT RELEVANT IMPLANT DATA REVIEWED: Yes PATIENT PRESENTS WITH AN IMPLANTABLE OR ATTACHED PREPRESS SPECIALIST: No ALLERGIES: Reviewed and unchanged CONTRAST ALLERGY: NO. EXAM: CT -CONTRAST INDUCED NEPHROPATHY RISK FACTORS: Patient age > 60 years CREATININE: Creatinine Date Value Ref Range Status 10/22/2023 0.65 0.58 - 0.96 mg/dL Final 07/28/2023 0.66 0.58 - 0.96 mg/dL Final 05/12/2023 0.65 0.58 - 0.96 mg/dL Final Estimated Glomerular Filtration Rate Date Value Ref Range Status 10/22/2023 100 >=60 mL/min/1.73m Final Comment: Estimated Glomerular Filtration Rate (eGFR) is calculated using the 2020 CKD-EPI creatinine equation. This equation utilizes serum creatinine, sex, and age as parameters. The creatinine assay has traceable calibration to isotope dilution-mass spectrometry. Refer to KDIGO guidelines for clinical interpretation. In patients with unstable renal function, e.g. those with acute kidney injury, the eGFR may not accurately reflect actual GFR. eGFR- Date Value Ref Range Status 01/18/2021 >60 Final P.O.C.T. RESULTS: POC done: Yes, See Lab Tab October 23, 2023 TREATMENT: N/A PERIPHERAL IV DATA: Ambulatory: A peripheral IV was started in the Left forearm with a Angio cath: 20 gauge. RADIOLOGY DEPARTMENT: CT; Exam(s) Completed: Chest SIGNATURE: SANTOS Enciso) PATIENT NAME: Vickey Schwartz DATE: October 23, 2023 TIME: 8:50 AM documented in this encounter [facility] 10-23-2023 Note HNO ID: [id number] Author: RENU YOUSSEF RT(R) Service: Radiology Author Type: Delivery Agent Type: Progress Notes Filed: 10/23/2023 08:51 Note Text: Radiology Service Progress Note DATE OF SERVICE: October 23, 2023 TIME: 8:50 AM PATIENT IDENTITY VERIFICATION COMPLETED USING TWO (2) STANDARD IDENTIFIERS: Name and Date of confirmed by patient verbally. FALL SCREENING: Has the patient had 2 falls in the last year or 1 fall with injury or currently using an Ambulatory Assistive Device (Walker, Cane, Wheelchair, Crutches, etc.)? No PATIENT GENDER DATA: Female. status: : No status: NO. PATIENT RELEVANT IMPLANT DATA REVIEWED: Yes PATIENT PRESENTS WITH AN IMPLANTABLE OR ATTACHED PREPRESS SPECIALIST: No ALLERGIES: Reviewed and unchanged CONTRAST ALLERGY: NO. EXAM: CT -CONTRAST INDUCED NEPHROPATHY RISK FACTORS: Patient age > 60 years CREATININE: Creatinine Date Value Ref Range Status 10/22/2023 0.65 0.58 - 0.96 mg/dL Final 07/28/2023 0.66 0.58 - 0.96 mg/dL Final 05/12/2023 0.65 0.58 - 0.96 mg/dL Final Estimated Glomerular Filtration Rate Date Value Ref Range Status 10/22/2023 100 >=60 mL/min/1.73m? Final Comment: Estimated Glomerular Filtration Rate (eGFR) is calculated using the 2020 CKD-EPI creatinine equation. This equation utilizes serum creatinine, sex, and age as parameters. The creatinine assay has traceable calibration to isotope dilution-mass spectrometry. Refer to KDIGO guidelines for clinical interpretation. In patients with unstable renal function, e.g. those with acute kidney injury, the eGFR may not accurately reflect actual GFR. eGFR- Date Value Ref Range Status 01/18/2021 >60 Final P.O.C.T. RESULTS: POC done: Yes, See Lab Tab October 23, 2023 TREATMENT: N/A PERIPHERAL IV DATA: Ambulatory: A peripheral IV was started in the Left forearm with a Angio cath: 20 gauge. RADIOLOGY DEPARTMENT: CT; Exam(s) Completed: Chest SIGNATURE: RT Fernie(R) PATIENT NAME: Vickey Schwartz DATE: October 23, 2023 TIME: 8:50 AM [facility] 10-22-2023 Note [facility] 10-22-2023 History of Present illness Narrative Vickey Schwartz is a 63 year old female referred by Janett Feliciano MD for my opinion regarding the management of lung cancer. HPI: The patient is a 61-year-old female with a past medical history as outlined below. The patient is a former smoker of approximately 7-pack-year, quit in 2015. She is on Plaquenil for history of lupus. She has primary biliary cholangitis. She had a nodule discovered on lung cancer screening study for surveillance of her interstitial pulmonary fibrosis. A CT of the chest done in June 2023 demonstrated an interval new 13 x 19 mm right lower lobe subpleural nodule. PET scan done in July showed the nodule to measure 20.6 mm with an SUV of 14.0. Perihilar lymph nodes measuring up to 11 mm which were stable in size with an SUV of 10.7. She underwent a CT-guided biopsy of the right lower lobe nodule. Pathology demonstrated poorly differentiated non-small cell carcinoma favoring adenocarcinoma. She underwent bronchoscopy with EBUS. Samples from 11 RS demonstrated rare atypical epithelial cells and station 7 was negative for malignant cells. 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 CT has been stable and pulmonary function tests do not show restriction or low diffusing capacity. Patient prefers pulmonary follow-up closer to home. Patient is asymptomatic so antifibrotic therapy has been on hold. 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 She denies significant dyspnea except for with extreme activity. Chronic cough or sputum production. No wheezing. She used to smoke a pack a week but quit in 2015 when she had note of a small nodule on chest CT. Today she states that she continues to do well. Her Plaquenil controls her cutaneous symptoms. She has no arthralgias, erythema or joint effusions, no skin lesions, no edema. She does have photosensitivity and limits her sun exposure. She has excessive daytime sleepiness, known snoring and witnessed apneas. HSAT from 2020 showed possible mild obstructive sleep at but she never followed through with formal in lab sleep study. She states that she can fall asleep easily when sitting watching TV or working on her computer. She is a loud snorer, in fact her brother has been bothering her to be reevaluated for apnea. She is working on a daily basis. 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 Gets short of breath with trying to run or walking steeper slopes. Recent 6-minute walk test results were very good. Recently had testing for sleep apnea which suggested sleep apnea. It was a home sleep study test. Occasional dry cough but not frequent throughout the day. 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 Appetite has been normal. PAST MEDICAL HISTORY Diagnosis Date Hemorrhage of rectum and anus HYPERLIPIDEMIA MIXED 07/10/2005 Lung nodule 06/13/2016 June 25, 2017 subcentimeter lung nodules and interstitial lung disease also stable from 2017: check CT in 1 year. Primary biliary cholangitis (HCC) Snoring Systemic lupus erythematosus (HCC) PAST SURGICAL HISTORY Procedure Laterality Date COLONOSCOPY FLX DX W/COLLJ SPEC WHEN PFRMD 06/29/2016 HAD VASOVAGAL RESPONSE DURING PROCEDURE SYST BP 60'S HR 40'S-GIVEN ATROPINE CORRJ HLX VLGS BNCTY SESMDC DSTL METAR OSTEOT 1986 DIAGNOSTIC ARTHROSCOPY SHOULDER +- SYNOVIAL BX Left 04/03/2018 Left shoulder arthroscopic subacromial decompression, rotator cuff repair, and biceps tenotomy EGD 12/25/2022 repeat 2 years ESOPHAGOGASTRODUODENOSCOPY TRANSORAL DIAGNOSTIC 11/11/2018 EGD ESOPHAGOGASTRODUODENOSCOPY TRANSORAL DIAGNOSTIC 11/22/2020 repeat in 2 years HYSTEROSCOPY 06/21/2017 D&C SIGMOIDOSCOPY ?1999 SKIN BIOPSY HX TONSILLECTOMY HX pantoprazole DR (PROTONIX) 40 mg tablet Take 1 tablet by mouth once daily. ursodiol (ACTIGALL) 300 mg capsule Take 1 capsule by mouth three times a day. albuterol HFA (PROVENTIL HFA, VENTOLIN HFA) 90 mcg/actuation inhaler Inhale 2 Puffs as instructed every 4 hours as needed. hydrOXYchloroQUINE (PLAQUENIL) 200 mg tablet Take 1 tablet by mouth two times a day. clotrimazole-betamethasone (LOTRISONE) lotion Betamethasone / Clotrimazole Clotrimazole/Betamethasone Dip [Clotrimazole-Betamethasone Lot] 30 ML TP NEEDED PRN For SKIN June 14, 2017 Active 06-14-2017 [facility] ([id number]) tacrolimus (PROTOPIC) 0.1 % ointment Apply twice daily to affected areas on face Clobetasol Propionate (TEMOVATE) 0.05 % external solution Apply to affected areas on the scalp twice a day. Dispense 100ml as 30 day supply. biotin 5,000 mcg ODT Take 1 tablet by mouth once daily. Calcium-Cholecalciferol, D3, 500 mg-10 mcg (400 unit) per tablet Take 1 tablet by mouth once daily. triamcinolone acetonide (KENALOG) 0.1 % cream Apply to rash on body twice a day M-F, take weekends off ALLERGIES Allergen Reactions Adhesive Tape (Sammi* Itching Itching and redness FAMILY HISTORY Problem Relation Age of Onset Diabetes Mother Hypertension Mother Stroke Mother other (? SFTP) Mother Heart Father age 60's other (PBC) Father None Brother Obstructive Sleep Apnea Brother Colon Cancer Paternal Grandmother Colon Cancer Paternal Grandfather Social History Tobacco Use Smoking status: Former Current packs/day: 0.00 Average packs/day: 0.2 packs/day for 45.0 years (6.8 ttl pk-yrs) Types: Cigarettes Start date: 01/16/1971 Quit date: 01/17/2016 Years since quittin.7 Smokeless tobacco: Never Tobacco comments: One pack a week Vaping Use Vaping status: Never Used Substance Use Topics Alcohol use: No Drug use: No REVIEW OF SYSTEMS: Constitutional: No episodes of fever and night sweats. Not significantly fatigued. Neuro: No GUTIERREZ, vertigo, dizziness and imbalance. No symptoms of neuropathy. HEENT: No recent change in voice, vision or hearing. Resp: See above. CVS: Denies exertional chest pain, PND, orthopnea and LE edema. GI: Denies dysphagia and odynophagia. Denies reflux, n/v, change in bowel habits and abdominal pain. : Denies dysuria or gross hematuria. No symptoms of bladder outlet obstruction. Endo: Denies hot flashes. Denies polyuria and polydipsia. Denies heat and cold intolerance. Musculoskeletal: Denies bone, back, joint and muscular pain. Derm: See above. Heme: Denies unusual bleeding and unexplained bruising. Psych: Normal mood. PHYSICAL EXAM: Vitals: Blood pressure 111/71, pulse 65, temperature 36.6 C (97.8 F), temperature source Temporal, height 165.1 cm (5' 5), weight 89.8 kg (198 lb), SpO2 99%. Well-appearing and in no acute distress. EYES: Sclerae are anicteric bilaterally. ENT: Oral mucosa is unremarkable. LYMPHATIC: There is no palpable cervical, supraclavicular, axillary adenopathy. RESPIRATORY: Significantly diminished inspiratory breath sounds intensity in all preciado. CARDIOVASCULAR: Rhythm is regular. ABDOMEN: The abdomen is nondistended. No splenomegaly or hepatomegaly. Extremities: No swelling or edema. SKIN: No jaundice. No rash. IMAGING: PET [facility] 07/17/2023: 20.6 mm hypermetabolic nodule right mid posterior, right lower lobe with SUV 14.0. There was also FDG G uptake noted in the right thoracic perihilar and generating an SUV of 10.3. The maximal axial diameter the metabolic, morphologic abnormality is 10.7 mm. 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 -Talked with her and her family today about the typical approach. 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 Plan: -Repeat CT chest with IV contrast since it has been 3 months since most recent imaging. -Will order molecular panel and IHC for PD-L1 through pathology lab at [facility]. I spent a total of 50 minutes on the date of the service which included preparing to see the patient, [id number] patient care, completing clinical documentation, obtaining and/or reviewing separately obtained history, performing a medically appropriate examination, counseling and educating the patient/family/caregiver, ordering medications, tests, or procedures, communicating with other HCPs (not separately reported), and communicating results to the patient/family/caregiver. Alf Castle DO documented in this encounter [facility] 10-22-2023 Telephone encounter Note Reilly Castillo I have refilled the patient's Protonix and ursodiol. [facility] Work Phone: 10-22-2023 Miscellaneous Notes Reilly Castillo I have refilled the patient's Protonix and ursodiol. documented in this encounter [facility] 10-17-2023 Instructions Allen Valdes MD - 10/17/2023 11:53 AM EDT Please check with Dr Feliciano's office to move up appt to 10/22. Virtual visit in 6 months. documented in this encounter [facility] 10-17-2023 History of Present illness Narrative Images from the original note were not included. DEPARTMENT OF GASTROENTEROLOGY - FOLLOW UP VISIT HISTORY OF PRESENT ILLNESS Vickey Schwartz is a 63 year old female who presents today for follow up of abnormal LFT's. Last seen 04/04/2023 TEST RESULTS SINCE LAST VISIT MRCP 06/22/23 RESULT: Liver: Normal morphology. Evaluation for signal loss on out of phase images somewhat compromised by artifact. No mass. Biliary: No intrahepatic or extrahepatic bile duct dilation. No biliary filling defect. 0.8 cm mural cystic structure compatible with intramural diverticula/cysts of adenomyomatosis (4:28). This corresponds with finding on prior ultrasound. Spleen: No mass. No splenomegaly. Pancreas: No mass or duct dilation. Adrenals: No mass. Kidneys: No solid or cystic mass. No hydronephrosis. GI: No dilated bowel or wall thickening along imaged segments. Lymph nodes: 2.5 x 1.1 cm periportal node, not significantly changed in size from CT 04/10/2017. Mesentery / Peritoneum / Retroperitoneum: No ascites or mass. Vasculature: The celiac axis and SMA are patent. The portal vein and branches, splenic vein, SMV, and hepatic veins are patent. No aortic aneurysm. Bones/Soft Tissues: No suspicious lesion. Lower chest: Unremarkable IMPRESSION: Focal area of benign cystic adenomyomatosis corresponds with the described gallbladder wall nodular thickening on prior ultrasound. 08/24/2023 Current Outpatient Medications Medication Sig Dispense Refill albuterol HFA (PROVENTIL HFA, VENTOLIN HFA) 90 mcg/actuation inhaler Inhale 2 Puffs as instructed every 4 hours as needed. [address] (PROTONIX) 40 mg tablet Take 1 tablet by mouth once daily. 90 tablet 3 ursodiol (ACTIGALL) 300 mg capsule Take 1 capsule by mouth three times a day. 270 capsule 3 hydrOXYchloroQUINE (PLAQUENIL) 200 mg tablet Take 1 tablet by mouth two times a day. 180 tablet 3 clotrimazole-betamethasone (LOTRISONE) lotion Betamethasone / Clotrimazole Clotrimazole/Betamethasone Dip [Clotrimazole-Betamethasone Lot] 30 ML TP NEEDED PRN For SKIN June 14, 2017 Active 06-14-2017 [facility] ([id number]) tacrolimus (PROTOPIC) 0.1 % ointment Apply twice daily to affected areas on face 30 g 3 Clobetasol Propionate (TEMOVATE) 0.05 % external solution Apply to affected areas on the scalp twice a day. Dispense 100ml as 30 day supply. 100 mL 3 biotin 5,000 mcg ODT Take by mouth once daily. Calcium-Cholecalciferol, D3, 500 mg-10 mcg (400 unit) per tablet Take 1 tablet by mouth once daily. triamcinolone acetonide (KENALOG) 0.1 % cream Apply to rash on body twice a day M-F, take weekends off 454 g 0 No current facility-administered medications for this visit. ALLERGIES Allergen Reactions Adhesive Tape (Sammi* Itching Itching and redness PHYSICAL EXAMINATION There were no vitals taken for this visit. General Appearance: alert, oriented x 3, pleasant and in no acute distress Assessment IMPRESSION The patient is a 63-year-old female. She was last seen by me on 04/04/2023 with the following cumulative impression: 62-year-old female with a follow-up visit for primary biliary cirrhosis. She was last seen 11/22/2022 with the following impression: 60-year-old female with primary biliary cirrhosis. Her last office visit was 01/21/2020 with the following impression: The patient is doing great she is feeling well. Her LFTs are improved with minimal elevation of her alk phos. She had a follow-up right upper quadrant ultrasound showing adenomyomatosis of the gallbladder. The study was suboptimal because of gas in the abdomen. Her LFTs are improved as above. Her last EGD was in November 2018 and was normal. At this time we will have the patient follow-up with her blood test in 6 months. Would like to pursue a repeat endoscopy in November 2020. The patient will continue her medications at the above dosage. The patient's last FibroScan was 02/27/2019 with the following impression: Impression. The reading was adequate, and corresponds to Fibrosis stage F2 and steatosis grade of S3. The patient currently is feeling great she is having no pruritus, abdominal pain, confusion, weight gain. At this time she is scheduled for an EGD for varices E surveillance in November of this year. We will obtain repeat blood testing and a 6-month interval repeat right upper quadrant ultrasound. Since that time the patient has been doing very well. She is having no abdominal pain confusion, change in gait, abdominal pain, swelling, edema or bleeding. She did have on 11/12/2020 MRCP showing benign gallbladder adenomatosis no stones or biliary dilatation there was no gallbladder polyp. On 10/20/2020 she had a right upper quadrant ultrasound showing showing normal liver echotexture. On 11/22/2020 she had an EGD that was negative for Milton's and negative for varices. She will have a repeat EGD in 2 years. Her LFTs show persistent mild elevation of her alkaline phosphatase but normal transaminases. At this time we will repeat her LFTs continue her on the Actigall 300 3 times daily. We will plan on a repeat visit in 1 year. Update 11/22/2022: The patient is feeling great she is having no confusion, change in gait, observable clinical bleeding, or fluid retention. Her LFTs are now completely normal. At this time we will plan for 2-year interval EGD, annual right upper quadrant ultrasound, and every 6 months LFTs. I did offer to the patient to be seen by the primary sclerosing cholangitis/PSC study group but she declines at this time. Update 04/04/2023: Since that time the patient is doing well. Her LFTs are essentially normal, her follow-up sonogram showed sleep coarse echotexture, and her EGD did not show any varices. She is doing great and will continue on her current dose of medications and routine LFTs. She does have a gallbladder polyp that is increasing in size for which we will get an MRCP. Update 10/17/2023: Since that time the patient had the above described MRCP which shows adenomyomatosis of the gallbladder. Her LFTs were completely normal. However she has developed a new problem of a pulmonary malignancy. The cytology just came back and showed a poorly differentiated non-small cell carcinoma favor adenocarcinoma. Currently she is doing well from a GI perspective. I would suggest continuing medications and no other diagnostic tests from our perspective currently. Will see her back after treatment for her pulmonary malignancy. Will plan on a virtual visit in 3 to 4 months. PLAN Above. Allen Valdes MD October 17, 2023 Answers submitted by the patient for this visit: Review of [facility] (Submitted on 10/10/2023) Fever: No Chills: No Night Sweats: No Unitentional Weight Change: No A Cough: Yes Difficulty Breathing: No Chest Pain: No Belly pain: No A feeling of fullness or have belly pain after eating: No Food getting stuck in your throat or chest after eating: No Nausea - that is, a feeling like you could vomit: No Regurgitation - that is, food or liquid coming back up into your throat or mouth without vomiting, or feel burning behind your breast bone: No Loss of appetite: No To throw up or vomit: No Blood in your stools: No Black tarry stools: No Loose or watery stools: No The feeling like you need to empty your bowels right away - that is, feel as if you would have an accident: No Bowel incontinence - that is, have an accident because you cannot make it to the bathroom in time: No Problems with straining while having bowel movements , hard or lumpy stools, or feel unfinished (that you have not passed all your stool): No Pain in rectum or anus during bowel movements: No Problems with jaundice - that is, yellow discoloration of your skin or eyes, now or in the past: No Problems with having to flush the toilet more than two times due to oily stool, or see stool floating with oil: No documented in this encounter [facility] 10-17-2023 Note [facility] 10-17-2023 Note [facility] 10-17-2023 History of Present illness Narrative CC: Patient presents with: Derm Problem: Lupus HPI: 63 year old female patient here for: follow up cutaneous lupus Condition remains well controlled Wearing UPF clothing and applying SPF regularly Denies flares Continues plaquenil 200mg BID - tolerating well without side effects Had ophtho exam 03/2024 Continues to follow with rheum, now Dr. Pineda for SLE Had CT chest for follow up of ILD with finding of lung cancer, has appt with oncologist next week Allergies: ALLERGIES Allergen Reactions Adhesive Tape (Sammi* Itching Itching and redness Medications: Current Outpatient Medications Medication Sig Dispense Refill albuterol HFA (PROVENTIL HFA, VENTOLIN HFA) 90 mcg/actuation inhaler Inhale 2 Puffs as instructed every 4 hours as needed. [address] (PROTONIX) 40 mg tablet Take 1 tablet by mouth once daily. 90 tablet 3 ursodiol (ACTIGALL) 300 mg capsule Take 1 capsule by mouth three times a day. 270 capsule 3 hydrOXYchloroQUINE (PLAQUENIL) 200 mg tablet Take 1 tablet by mouth two times a day. 180 tablet 3 clotrimazole-betamethasone (LOTRISONE) lotion Betamethasone / Clotrimazole Clotrimazole/Betamethasone Dip [Clotrimazole-Betamethasone Lot] 30 ML TP NEEDED PRN For SKIN June 14, 2017 Active 06-14-2017 [facility] ([id number]) tacrolimus (PROTOPIC) 0.1 % ointment Apply twice daily to affected areas on face 30 g 3 Clobetasol Propionate (TEMOVATE) 0.05 % external solution Apply to affected areas on the scalp twice a day. Dispense 100ml as 30 day supply. 100 mL 3 biotin 5,000 mcg ODT Take by mouth once daily. Calcium-Cholecalciferol, D3, 500 mg-10 mcg (400 unit) per tablet Take 1 tablet by mouth once daily. triamcinolone acetonide (KENALOG) 0.1 % cream Apply to rash on body twice a day M-F, take weekends off 454 g 0 No current facility-administered medications for this visit. PMH: PAST MEDICAL HISTORY No date: Hemorrhage of rectum and anus 07/10/2005: HYPERLIPIDEMIA MIXED 06/13/2016: Lung nodule Comment: June 25, 2017 subcentimeter lung nodules and interstitial lung disease also stable from 2017: check CT in 1 year. No date: Primary biliary cholangitis (HCC) No date: Snoring No date: Systemic lupus erythematosus (HCC) FH: No family history of skin cancer SH: works at [employer] PHYSICAL EXAM: Skin examination including head, face, ears, neck, chest, upper extremities, hands Skin findings: On face, neck, chest are few subtly hyperpigmented patches, some with subtle central atrophy Scalp (~50% of total scalp) with intersecting hyper- and hypopigmented atrophic alopecic plaques ASSESSMENT/PLAN: Cutaneous lupus erythematosus Discoid lupus erythematosus Well controlled PIH and secondary atrophy on exam which is stable -continue strict sun protection and avoidance -ophtho annual exam - next in 03/2024 -continue Plaquenil 200mg tablet twice daily Inform me immediately if flare Return in 6-12 months, sooner as needed The patient is seen and examined by Dr. Montesinos and the following reflects his/her service. Scribed by Maria L Velázquez MA I agree with the Chief Complaint, ROS, and Past Histories independently gathered by the clinical credit support specialist and the remaining scribed note accurately describes my personal service to and examination of the patient. Eloise Montesinos MD documented in this encounter [facility] 10-11-2023 Telephone encounter Note Scheduled with patient [facility] Work Phone: 10-11-2023 Miscellaneous Notes Scheduled with patient 1st attempt. Message left on home number for patient to contact office to schedule new patient consult with Dr. Castle or Dr. Ludwig. 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 Lisa Ritchie LPN Patient is being referred to Oncology: DX : HX of Lung Cancer Insurance: [employer] Card PPO Referred by: Janett Feliciano MD Please review and advise documented in this encounter [facility] 10-11-2023 Telephone encounter Note 1st attempt. Message left on home number for patient to contact office to schedule new patient consult with Dr. Castle or Dr. Ludwig. 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 Lisa Ritchie LPN [facility] 10-05-2023 Telephone encounter Note Patient is being referred to Oncology: DX : HX of Lung Cancer Insurance: [employer] PPO Referred by: Janett Feliciano MD Please review and advise [facility] 10-04-2023 Note [facility] 10-04-2023 History of Present illness Narrative [facility] STAFF PHYSICIAN NOTE OF PERSONAL INVOLVEMENT IN CARE I have reviewed the documentation obtained and documented by the Resident and I have personally performed a face to face assessment of the patient and have personally participated in the martin components of the visit which includes medical decision making.. I have discussed the case and management of the patient's care. I wish to add the following findings which have been dictated and will be communicated back to the requesting physician. STAFF PHYSICIAN: Janett Feliciano MD, PhD DATE OF SERVICE: October 04, 2023 TIME OF SERVICE: 7:42 PM Images from the original note were not included. [facility] THORACIC SURGERY OUTPATIENT CONSULT NOTE Vickey Schwartz [id number] Requesting Provider: Ny Ross MD Thoracic Physician: Janett Feliciano MD Chief Complaint: RLL Lung Cancer Impression: Vickey Schwartz is a 63 year old female with PMHx former smoker (7 pack years, quit 2015), IPF, HLD, SLE (plaquenil), and primary biliary cholangitis referred by Ny Ross MD for an opinion regarding management of [id number] (Stage IIB) RLL poorly differentiated non-small cell carcinoma, favor adenocarcinoma. New RLL subpleural nodule discovered on CT chest 07/04 13 x 19 mm, PET measured at 20.6 mm, SUV 14.0 and perihilar LNs up to 11 mm and SUV 10.7. Biopsy of RLL nodule poorly differentiated non-small cell carcinoma, favor adenocarcinoma. Bronchoscopy with EBUS with station 11RS LN rare atypical epithelial cells, station 7 LN negative for malignant cells. MRI Brain 09/20 negative. 6MWT 78% predicted with some desaturation, PFTs with FEV1 89% predicted, DLCO 92% predicted. Plan: - Referral to oncology - PDL-1 still not reported from biopsy - Will develop multidisciplinary care plan for patient, which may include induction chemotherapy SIGNATURE: Miranda Connelly MD PAGER: [phone] DATE of SERVICE: 10/04/2023 TIME of SERVICE: 2:00 PM HPI: Vickey Schwartz is a 63 year old female with PMHx former smoker (7 pack years, quit 2015), IPF, HLD, SLE (plaquenil), and primary biliary cholangitis referred by Ny Ross MD for an opinion regarding management of Lung Cancer. She is currently feeling well. Nodule discovered on CT done for IPF surveillance, but patient feeling well at the time. Takes albuterol prn occasionally. Has cough with some phlegm. No SOB, CP. SETHI only with increased exertion, like fast walking pace, but able to walk ~1 mile and up a flight of stairs at normal pace without SOB. CT Chest 07/04 with interval new 13 x 19 mm RLL subpleural nodule, stable LAD and other <5 mm nodules, findings c/w IPF. PET 07/16 with nodule 20.6 mm, SUV 14.0. Perihilar LNs up to 11 mm (stable size), SUV 10.7. Image guided Biopsy of RLL nodule poorly differentiated non-small cell carcinoma, favor adenocarcinoma. Bronchoscopy with EBUS with station 11RS LN rare atypical epithelial cells, station 7 LN negative for malignant cells. MRI Brain 09/20 negative. (document at least 4 of these elements) Location: right and lower Quality: acute Timing: constant Context: at rest ECOG Score: 0 Living arrangement: Lives with family/friend Functional status: Independent Unintentional weight loss over last 3 months: No PAST MEDICAL HISTORY No date: Hemorrhage of rectum and anus 07/10/2005: HYPERLIPIDEMIA MIXED 06/13/2016: Lung nodule Comment: June 25, 2017 subcentimeter lung nodules and interstitial lung disease also stable from 2017: check CT in 1 year. No date: Primary biliary cholangitis (HCC) No date: Snoring No date: Systemic lupus erythematosus (HCC) PAST SURGICAL HISTORY 06/29/2016: COLONOSCOPY FLX DX W/COLLJ SPEC WHEN PFRMD Comment: HAD VASOVAGAL RESPONSE DURING PROCEDURE SYST BP 60'S HR 40'S-GIVEN ATROPINE 1986: CORRJ HLX VLGS BNCTY SESMDC DSTL METAR OSTEOT 04/03/2018: DIAGNOSTIC ARTHROSCOPY SHOULDER +- SYNOVIAL BX; Left Comment: Left shoulder arthroscopic subacromial decompression, rotator cuff repair, and biceps tenotomy 12/25/2022: EGD Comment: repeat 2 years 11/11/2018: ESOPHAGOGASTRODUODENOSCOPY TRANSORAL DIAGNOSTIC Comment: EGD 11/22/2020: ESOPHAGOGASTRODUODENOSCOPY TRANSORAL DIAGNOSTIC Comment: repeat in 2 years 06/21/2017: HYSTEROSCOPY Comment: D&C ?1999: SIGMOIDOSCOPY No date: SKIN BIOPSY HX No date: TONSILLECTOMY HX FAMILY HISTORY Problem Relation Age of Onset Diabetes Mother Hypertension Mother Stroke Mother other (? SFTP) Mother Heart Father age 60's other (PBC) Father None Brother Obstructive Sleep Apnea Brother Colon Cancer Paternal Grandmother Colon Cancer Paternal Grandfather Social History Tobacco Use Smoking status: Former Current packs/day: 0.00 Average packs/day: 0.2 packs/day for 45.0 years (6.8 ttl pk-yrs) Types: Cigarettes Start date: 01/16/1971 Quit date: 01/17/2016 Years since quittin.7 Smokeless tobacco: Never Tobacco comments: One pack a week Vaping Use Vaping status: Never Used Substance Use Topics Alcohol use: No Drug use: No ALLERGIES Allergen Reactions Adhesive Tape (Sammi* Itching Itching and redness Asbestos Exposure Yes, at work PHYSICAL EXAM There were no vitals taken for this visit. Neck: No masses Resp: Respiratory effort: normal Cardiovascular: Regular rate & rhythm GI: Soft Neurological/Psychiatric: Alert, Oriented, and No gross focal neurologic deficits Additional relevant findings: None DATA: 10/04/23 6MWT Six Minute Walk Test for This Encounter Oxygen Device Liters FIO2 SpO2% HR Activity Feet Speed (MPH) Flag R/A 96 69 Resting R/A 95 106 Six Minute Walk 1150 2.2 R/A 97 74 Recovery 1 minute post R/A 96 74 Recovery 2 minute post R/A 96 70 Recovery 3 minute post _ Distance Walked (meters) Distance Walked (feet) Female Predicted Walk Distance (feet) Female Lower Limit of Normal (feet) Female % Predicted Total Duration Of The Stops (seconds) 350.52 1150 1468.5 1012.5 78.3 -- 07/05/23 PFTs PRE-BRONCH POST-BRONCH Pre LLN Pred ULN %Pred Post %Pred %Chg SPIROMETRY FVC (L) 3.28 2.16 2.99 3.84 109 3.71 123 14 FEV1 (L) 2.12 1.69 2.37 3.01 89 2.33 98 8 FEV1/FVC 0.65 0.67 0.80 0.89 81 0.63 78 -2 PEF L/s (L/sec) 5.41 4.51 6.25 7.99 86 5.35 85 -1 FEF50 (L/sec) 1.63 1.72 3.33 4.94 48 2.11 63 29 FIF50 (L/sec) 3.52 3.56 1 FEF50/FIF50 0.46 90-100 0.59 28 FIVC (L) 3.19 3.35 5 VWE35-78 (L/sec) 1.14 1.04 2.09 3.51 54 1.63 77 42 Time (sec) 13.64 15.18 11 FET PEF (sec) 0.08 0.10 26 LETICIA (L) 0.07 0.07 3 Vol Extrap % (%) 2 2 -8 LUNG DIFFUSION DLCOunc (ml/min/mmHg) 19.90 15.42 21.59 27.76 92 VA (L) 4.75 4.04 5.14 6.25 92 DLunc/VA (ml/min/mmHg/L) 4.20 3.07 4.39 5.70 95 BHT (sec) 11.12 IVC (L) 3.09 Radiology: MRI Brain 09/21/23 No abnormal intracranial enhancement to indicate intracranial metastasis. Chronic changes and incidental findings as described. 08/24/23 CT guided Biopsy of RLL nodule 07/31/23 Bronchoscopy with EBUS The laryngeal mask airway is in good position. The vocal cords appear normal. The subglottic space is normal. The trachea is of normal caliber. The flex is sharp. The tracheobronchial tree was examined to at least the first subsegmental level. Bronchial mucosa and anatomy are normal; there are no endobronchial lesions, and no secretions. Once the airway inspection was completed, the standard bronchoscope was withdrawn and the convex probe endobronchial ultrasound (EBUS) bronchoscope was inserted through the same route. A systematic staging of the hilum and mediastinum was performed. Lymph Nodes: The following lymph nodes were evaluated and/or sampled. Lymph node sizing was performed via endobronchial ultrasound for suspected lung cancer. Sampling by transbronchial needle aspiration was also performed using an Olympus ViziShot 22 gauge needle and sent for routine cytology. - The 11L (interlobar) node was 4.5 mm by EBUS, [address] and non-hypermetabolic via PET scan. Sampling was not done due to size criteria (less than 5 mm). - The 4L (lower paratracheal) node was 2.8 mm by EBUS, [address] and non-hypermetabolic via PET scan. Sampling was not done due to size criteria (less than 5 mm). - The 2L (upper paratracheal) node was 2.1 mm by EBUS, [address] and non-hypermetabolic via PET scan. Sampling was not done due to size criteria (less than 5 mm). - The 7 (subcarinal) node was 6.2 mm by EBUS, [address] and non-hypermetabolic via PET scan. Four samples with the needle were obtained. - The 2R (upper paratracheal) node was not visualized by EBUS, not visualized by CT and non-hypermetabolic via PET scan. Sampling was not done (the node was not visualized). - The 4R (lower paratracheal) node was 4 mm by EBUS, [address] and non-hypermetabolic via PET scan. Sampling was not done due to size criteria (less than 5 mm). - The 10R (hilar) node was not visualized by EBUS, not visualized by CT and non-hypermetabolic via PET scan. Sampling was not done (the node was not visualized). - The 11Rs (superior interlobar) node was 8.6 mm by EBUS, [address] and hypermetabolic via PET scan. Nine samples with the needle were obtained. Sample was collected in formalin as core biopsy as well. - The 11Ri (inferior interlobar) node was not visualized by EBUS, not visualized by CT and non-hypermetabolic via PET scan. Sampling was not done (the node was not visualized). Lymph Nodes: Rapid On-Site Evaluation (YULY): Preliminary cytology was suggestive of benign-appearing lymphoid tissue (final results are pending) in the subcarinal mediastinum (level 7). Preliminary cytology was suggestive of atypical cells suspicious for malignancy (final results are pending) in the right superior interlobar region (level 11Rs). Impression: - Right lower lobe nodule - Lymph node sizing and sampling was performed. - Rapid On-Site Evaluation (YULY): Preliminary cytology was suggestive suggestive of benign-appearing lymphoid tissue in node level 7 and suggestive of atypical cells suspicious for malignancy in node level 11Rs (final results are pending). Pathology FINAL DIAGNOSIS A. Lymph node, 11RS, core biopsy: - Fragments of lymphoid tissue, and rare atypical epithelial cells (See comment). Diagnosis Comment A. No granulomas or malignant cells are identified. The specimen consists mainly of lymphoid tissue with focal crush artifact. The crushed area is negative for keratin AE1/AE3, p40 and synaptophysin. Only a rare minute cluster of atypical cells is present, which is positive for keratin AE1/AE3 and negative for p40 and synaptophysin. The paucity of the atypical cells precludes a definitive diagnosis of malignancy in this sample. FINAL DIAGNOSIS A - Lymph Node, Station 7, Transbronchial Fine Needle Aspirate: Negative for malignant cells. Polymorphous lymphoid sample. B - Lymph Node, Station 11RS, Transbronchial Fine Needle Aspirate: Suspicious for malignancy. See comment. Polymorphous lymphoid sample. PET CT 07/17/23 CT Chest 07/17/23 1. Interval development of a 13 x 19 mm right lower lobe subpleural pulmonary nodule since the prior chest CT from 12/05/2021, suspicious for a primary lung malignancy. 2. Findings consistent with fibrotic interstitial lung disease including subpleural reticulation, mild traction bronchiectasis/bronchiolectasis, architectural distortion, and subpleural cystic change, not substantially changed compared to the most recent chest CT from 12/05/2021, mildly progressed since 10/21/2018. These findings are probably due to the patient's history of lupus. 3. A few additional small (less than 5 mm) pulmonary nodules are unchanged since 12/05/2021, likely benign. 4. Stable mildly enlarged distal paraesophageal lymph node since the prior chest CT dated 12/05/2021, likely benign/reactive given stability. No new thoracic lymphadenopathy. Lung parenchyma and airways: There are coarse bilateral peripheral reticular opacities associated with mild traction bronchiectasis/bronchiolectasis and architectural distortion. Subpleural cystic change is present bilaterally. These findings have not substantially changed compared to the prior chest CT from 12/05/2021 with mild progression since 10/21/2018. Since the prior chest CT, there has been interval development of a 13 x 19 mm subpleural right lower lobe nodule, image 122 with a few air bronchograms. A 2 mm right middle lobe nodule, image 163 and a 3 mm subpleural right middle lobe nodule, image 168 are unchanged since 12/05/2021. No consolidation. No pulmonary edema. The central airways are patent without suspicious endobronchial lesion. No substantial air trapping or evidence of excessive dynamic airway collapse on the free breathing images. Pleural space: No pleural effusion, pleural thickening, or pneumothorax. Lower neck, lymph nodes, and mediastinum: The imaged thyroid gland is unremarkable. No supraclavicular or axillary lymphadenopathy. A mildly enlarged lymph node adjacent to the distal esophagus, image 204 of series 9 measuring 1.1 cm in short axis is stable in size. A 0.6 cm in short axis right paratracheal lymph node, image 89 of series 9 is stable in size. No hilar lymphadenopathy. The esophagus is decompressed. I have personally reviewed the following images/data: Bronchoscopy, CT scan, PET Scan, and PFT/screening kelly Outside Paper Medical Records Review personally performed by: Miranda Connelly MD Patient-Entered Questionnaire Domain Symptom Raw Score Bother Raw Score Symptom T Score (0-100) Bother T Score (0-100) Dysphagia (7) Incomplete (Range 7-42) Incomplete (Range 7-35) Incomplete Incomplete Eating (7) Incomplete (Range 7-42) Incomplete (Range 7-35) Incomplete Incomplete Pain (5) Incomplete (Range 5-30) Incomplete (Range 5-25) Incomplete Incomplete Dyspepsia (4) Incomplete (Range 4-24) Incomplete (Range 4-20) Incomplete Incomplete Reflux &Regurgitation (5) Incomplete (Range 5-30) Incomplete (Range 5-25) Incomplete Incomplete Dumping (6) Incomplete (Range 6-36) Incomplete (Range 6-30) Incomplete Incomplete documented in this encounter [facility] 10-04-2023 Note [facility] 10-04-2023 Note [facility] 10-04-2023 Note HNO ID: [id number] Author: SURI RODRIGUEZ RPFT Service: ? Author Type: Respiratory Therapist Type: Progress Notes Filed: 10/04/2023 09:32 Note Text: PULM FUNCTION: Provider: Janett Feliciano MD, PhD Assisting Tech: Suri Rodriguez RPFT 6 MW: 1 [facility] 10-04-2023 History of Present illness Narrative PULM FUNCTION: Provider: Janett Feliciano MD, PhD Assisting Tech: Suri Rodriguez RPFT 6 MW: 1 documented in this encounter [facility] 10-04-2023 Note [facility] 09-25-2023 Telephone encounter Note Images from the original note were not included. Thoracic Surgery Consultation - review of records for appointment scheduling Received medical records from the office of Ny Ross ([facility]) [address] [address] Patient is being referred to Janett Feliciano MD, PhD by Ny Ross for Lung Cancer Outside hospital records scanned / in epic / Care Everywhere Pathology:08/24/2023 EBUS 07/31/2023 FINAL DIAGNOSIS A. Lymph node, 11RS, core biopsy: - Fragments of lymphoid tissue, and rare atypical epithelial cells (See comment FINAL DIAGNOSIS A - Lymph Node, Station 7, Transbronchial Fine Needle Aspirate: Negative for malignant cells. Polymorphous lymphoid sample. B - Lymph Node, Station 11RS, Transbronchial Fine Needle Aspirate: Suspicious for malignancy. See comment. Polymorphous lymphoid sample. Diagnosis Comment Part B. The smears show cohesive markedly atypical cells with large nuclei, small prominent nucleoli and scant cytoplasm focally admixed with lymphocytes. While the findings are concerning for malignancy such as non-small cell carcinoma, large cell neuroendocrine, basaloid squamous cell carcinoma and SMARCA4 def. carcinoma, among others, due to the limited material present for additional ancillary testing, a definitive diagnosis is precluded. Web Press Operator Apprentice slides were reviewed in consultation with Dr. Maris Tomlin and Dr. Kailyn Mejia, who concurs. Procedures:CT biopsy 08/24/2023 Imaging . PET/CT: 07/17/2023 CT (chest): 07/05/2023 IMPRESSION: 1. Interval development of a 13 x 19 mm right lower lobe subpleural pulmonary nodule since the prior chest CT from 12/05/2021, suspicious for a primary lung malignancy. 2. Findings consistent with fibrotic interstitial lung disease including subpleural reticulation, mild traction bronchiectasis/bronchiolectasis, architectural distortion, and subpleural cystic change, not substantially changed compared to the most recent chest CT from 12/05/2021, mildly progressed since 10/21/2018. These findings are probably due to the patient's history of lupus. 3. A few additional small (less than 5 mm) pulmonary nodules are unchanged since 12/05/2021, likely benign. 4. Stable mildly enlarged distal paraesophageal lymph node since the prior chest CT dated 12/05/2021, likely benign/reactive given stability. No new thoracic lymphadenopathy. MRI: Brain 09/21/2023 IMPRESSION: No abnormal intracranial enhancement to indicate intracranial metastasis. Chronic changes and incidental findings as described. UGI: . Cardiopulmonary Testing . PFT's/dlco: 6 minute walk Requested 07/05/2023 PRE-BRONCH POST-BRONCH Pre LLN Pred ULN %Pred Post %Pred %Chg SPIROMETRY FVC (L) 3.28 2.16 2.99 3.84 109 3.71 123 14 FEV1 (L) 2.12 1.69 2.37 3.01 89 2.33 98 8 LUNG DIFFUSION DLCOunc (ml/min/mmHg) 19.90 15.42 21.59 27.76 92 Cardiac: Office Notes/Consults Dr. Ross 07/05/2023 Assessment/Plan: 1. ILD -To my review her chest CT shows possible slight progression although this is not reflected in her pulmonary function testing or her symptoms -Would continue to hold antifibrotic therapy at this time -Continued surveillance 2. Lung nodule -New right lower lobe subpleural nodule with configuration that is suspicious for possible bronchogenic carcinoma -PET scan and biopsy 3. Snoring -High risk for obstructive sleep apnea -Repeat HSAT and depending on results will either need a CPAP titration study or split-night study 4. Small airways disease -Recommend as needed albuterol -Prescription sent in to [facility] 5. Cutaneous lupus -Well-controlled with Plaquenil and avoidance of sun exposure -Follows with rheumatology Addendum 08/14/2023: Had EBUS with one lymph node showing atypical cells without definitive cancer diagnosis. Lung nodule was not biopsied at that time. Referral to IR for image guided biopsy. No change in clinical status. Can proceed with procedure as scheduled 08/24/23 History of: FAMILY HISTORY Problem Relation Age of Onset Diabetes Mother Hypertension Mother Stroke Mother other (? SFTP) Mother Heart Father age 60's other (PBC) Father None Brother Obstructive Sleep Apnea Brother Colon Cancer Paternal Grandmother Colon Cancer Paternal Grandfather PAST MEDICAL HISTORY No date: Hemorrhage of rectum and anus 07/10/2005: HYPERLIPIDEMIA MIXED 06/13/2016: Lung nodule Comment: June 25, 2017 subcentimeter lung nodules and interstitial lung disease also stable from 2017: check CT in 1 year. No date: Primary biliary cholangitis (HCC) No date: Snoring No date: Systemic lupus erythematosus (HCC) PAST SURGICAL HISTORY 06/29/2016: COLONOSCOPY FLX DX W/COLLJ SPEC WHEN PFRMD Comment: HAD VASOVAGAL RESPONSE DURING PROCEDURE SYST BP 60'S HR 40'S-GIVEN ATROPINE 1986: CORRJ HLX VLGS BNCTY SESMDC DSTL METAR OSTEOT 04/03/2018: DIAGNOSTIC ARTHROSCOPY SHOULDER +- SYNOVIAL BX; Left Comment: Left shoulder arthroscopic subacromial decompression, rotator cuff repair, and biceps tenotomy 12/25/2022: EGD Comment: repeat 2 years 11/11/2018: ESOPHAGOGASTRODUODENOSCOPY TRANSORAL DIAGNOSTIC Comment: EGD 11/22/2020: ESOPHAGOGASTRODUODENOSCOPY TRANSORAL DIAGNOSTIC Comment: repeat in 2 years 06/21/2017: HYSTEROSCOPY Comment: D&C ?1999: SIGMOIDOSCOPY No date: SKIN BIOPSY HX No date: TONSILLECTOMY HX Social History Tobacco Use Smoking status: Former Current packs/day: 0.00 Average packs/day: 0.2 packs/day for 45.0 years (6.8 ttl pk-yrs) Types: Cigarettes Start date: 01/16/1971 Quit date: 01/17/2016 Years since quittin.6 Smokeless tobacco: Never Tobacco comments: One pack a week Vaping Use Vaping status: Never Used Substance Use Topics Alcohol use: No Drug use: No Request thoracic surgery consult with Dr. Feliciano for RLL lung cancer with 6 MW at [facility] RN [facility] 09-25-2023 Miscellaneous Notes Images from the original note were not included. Thoracic Surgery Consultation - review of records for appointment scheduling Received medical records from the office of Ny Ross ([facility]) [address] [place] [address] Patient is being referred to Janett Feliciano MD, PhD by Ny Ross for Lung Cancer Outside hospital records scanned / in epic / Care Everywhere Pathology:08/24/2023 EBUS 07/31/2023 FINAL DIAGNOSIS A. Lymph node, 11RS, core biopsy: - Fragments of lymphoid tissue, and rare atypical epithelial cells (See comment FINAL DIAGNOSIS A - Lymph Node, Station 7, Transbronchial Fine Needle Aspirate: Negative for malignant cells. Polymorphous lymphoid sample. B - Lymph Node, Station 11RS, Transbronchial Fine Needle Aspirate: Suspicious for malignancy. See comment. Polymorphous lymphoid sample. Diagnosis Comment Part B. The smears show cohesive markedly atypical cells with large nuclei, small prominent nucleoli and scant cytoplasm focally admixed with lymphocytes. While the findings are concerning for malignancy such as non-small cell carcinoma, large cell neuroendocrine, basaloid squamous cell carcinoma and SMARCA4 def. carcinoma, among others, due to the limited material present for additional ancillary testing, a definitive diagnosis is precluded. Web Press Operator Apprentice slides were reviewed in consultation with Dr. Maris Tomlin and Dr. Kailyn Mejia, who concurs. Procedures:CT biopsy 08/24/2023 Imaging . PET/CT: 07/17/2023 CT (chest): 07/05/2023 IMPRESSION: 1. Interval development of a 13 x 19 mm right lower lobe subpleural pulmonary nodule since the prior chest CT from 12/05/2021, suspicious for a primary lung malignancy. 2. Findings consistent with fibrotic interstitial lung disease including subpleural reticulation, mild traction bronchiectasis/bronchiolectasis, architectural distortion, and subpleural cystic change, not substantially changed compared to the most recent chest CT from 12/05/2021, mildly progressed since 10/21/2018. These findings are probably due to the patient's history of lupus. 3. A few additional small (less than 5 mm) pulmonary nodules are unchanged since 12/05/2021, likely benign. 4. Stable mildly enlarged distal paraesophageal lymph node since the prior chest CT dated 12/05/2021, likely benign/reactive given stability. No new thoracic lymphadenopathy. MRI: Brain 09/21/2023 IMPRESSION: No abnormal intracranial enhancement to indicate intracranial metastasis. Chronic changes and incidental findings as described. UGI: . Cardiopulmonary Testing . PFT's/dlco: 6 minute walk Requested 07/05/2023 PRE-BRONCH POST-BRONCH Pre LLN Pred ULN %Pred Post %Pred %Chg SPIROMETRY FVC (L) 3.28 2.16 2.99 3.84 109 3.71 123 14 FEV1 (L) 2.12 1.69 2.37 3.01 89 2.33 98 8 LUNG DIFFUSION DLCOunc (ml/min/mmHg) 19.90 15.42 21.59 27.76 92 Cardiac: Office Notes/Consults Dr. Ross 07/05/2023 Assessment/Plan: 1. ILD -To my review her chest CT shows possible slight progression although this is not reflected in her pulmonary function testing or her symptoms -Would continue to hold antifibrotic therapy at this time -Continued surveillance 2. Lung nodule -New right lower lobe subpleural nodule with configuration that is suspicious for possible bronchogenic carcinoma -PET scan and biopsy 3. Snoring -High risk for obstructive sleep apnea -Repeat HSAT and depending on results will either need a CPAP titration study or split-night study 4. Small airways disease -Recommend as needed albuterol -Prescription sent in to [facility] 5. Cutaneous lupus -Well-controlled with Plaquenil and avoidance of sun exposure -Follows with rheumatology Addendum 08/14/2023: Had EBUS with one lymph node showing atypical cells without definitive cancer diagnosis. Lung nodule was not biopsied at that time. Referral to IR for image guided biopsy. No change in clinical status. Can proceed with procedure as scheduled 08/24/23 History of: FAMILY HISTORY Problem Relation Age of Onset Diabetes Mother Hypertension Mother Stroke Mother other (? SFTP) Mother Heart Father age 60's other (PBC) Father None Brother Obstructive Sleep Apnea Brother Colon Cancer Paternal Grandmother Colon Cancer Paternal Grandfather PAST MEDICAL HISTORY No date: Hemorrhage of rectum and anus 07/10/2005: HYPERLIPIDEMIA MIXED 06/13/2016: Lung nodule Comment: June 25, 2017 subcentimeter lung nodules and interstitial lung disease also stable from 2017: check CT in 1 year. No date: Primary biliary cholangitis (HCC) No date: Snoring No date: Systemic lupus erythematosus (HCC) PAST SURGICAL HISTORY 06/29/2016: COLONOSCOPY FLX DX W/COLLJ SPEC WHEN PFRMD Comment: HAD VASOVAGAL RESPONSE DURING PROCEDURE SYST BP 60'S HR 40'S-GIVEN ATROPINE 1986: CORRJ HLX VLGS BNCTY SESMDC DSTL METAR OSTEOT 04/03/2018: DIAGNOSTIC ARTHROSCOPY SHOULDER +- SYNOVIAL BX; Left Comment: Left shoulder arthroscopic subacromial decompression, rotator cuff repair, and biceps tenotomy 12/25/2022: EGD Comment: repeat 2 years 11/11/2018: ESOPHAGOGASTRODUODENOSCOPY TRANSORAL DIAGNOSTIC Comment: EGD 11/22/2020: ESOPHAGOGASTRODUODENOSCOPY TRANSORAL DIAGNOSTIC Comment: repeat in 2 years 06/21/2017: HYSTEROSCOPY Comment: D&C ?2000: SIGMOIDOSCOPY No date: SKIN BIOPSY HX No date: TONSILLECTOMY HX Social History Tobacco Use Smoking status: Former Current packs/day: 0.00 Average packs/day: 0.2 packs/day for 45.0 years (6.8 ttl pk-yrs) Types: Cigarettes Start date: 01/16/1971 Quit date: 01/17/2016 Years since quittin.6 Smokeless tobacco: Never Tobacco comments: One pack a week Vaping Use Vaping status: Never Used Substance Use Topics Alcohol use: No Drug use: No Request thoracic surgery consult with Dr. Feliciano for RLL lung cancer with 6 MW at [facility] documented in this encounter [facility] 09-24-2023 Telephone encounter Note Left voicemail message with results. No intracranial mets. Review of MyChart messages state she prefers Dr. Feliciano for consideration of lung cancer resection. I will place referral. [facility] 09-24-2023 Miscellaneous Notes Left voicemail message with results. No intracranial mets. Review of MyChart messages state she prefers Dr. Feliciano for consideration of lung cancer resection. I will place referral. documented in this encounter [facility] 09-21-2023 History of Present illness Narrative Radiology Service Progress Note DATE OF SERVICE: September 21, 2023 TIME: 10:16 AM PATIENT IDENTITY VERIFICATION COMPLETED USING TWO (2) STANDARD IDENTIFIERS: Name and Date of confirmed by patient verbally. FALL SCREENING: Has the patient had 2 falls in the last year or 1 fall with injury or currently using an Ambulatory Assistive Device (Walker, Cane, Wheelchair, Crutches, etc.)? No PATIENT GENDER DATA: Female. status: : No status: NO. PATIENT RELEVANT IMPLANT DATA REVIEWED: Yes PATIENT PRESENTS WITH AN IMPLANTABLE OR ATTACHED PREPRESS SPECIALIST: No ALLERGIES: Reviewed and unchanged CONTRAST ALLERGY: NO. EXAM: MRI - CONTRAST TYPE: GROUP II PERIPHERAL IV DATA: Ambulatory: A peripheral IV was started in the Right upper extremity with a Angio cath: 22 gauge. RADIOLOGY DEPARTMENT: MR; Exam(s) Completed: Head: Routine Brain SIGNATURE: RT Codi(R) PATIENT NAME: Vickey Schwartz DATE: September 21, 2023 TIME: 10:16 AM documented in this encounter [facility] 09-05-2023 Telephone encounter Note 1st call attempt, left vm [facility] 09-05-2023 Miscellaneous Notes 1st call attempt, left vm documented in this encounter [facility] 09-04-2023 Telephone encounter Note See telephone encounter with SAMPSON Strickland LPN [facility] 09-04-2023 Miscellaneous Notes See telephone encounter with SAMPSON Strickland LPN documented in this encounter [facility] 09-04-2023 Telephone encounter Note Spoke with Vickey regarding biopsy performed at [facility]. Positive for adenocarcinoma. She will need an MRI of the brain. Her lung function is adequate for resection. If assume some visceral invasion, this is a clinical stage IIB. She wants to think about where she would have surgery and notify me with a decision. In the meantime I will make arrangements for brain MRI at [facility]. [facility] 09-04-2023 Miscellaneous Notes Spoke with Vickey regarding biopsy performed at [facility]. Positive for adenocarcinoma. She will need an MRI of the brain. Her lung function is adequate for resection. If assume some visceral invasion, this is a clinical stage IIB. She wants to think about where she would have surgery and notify me with a decision. In the meantime I will make arrangements for brain MRI at [facility]. documented in this encounter [facility] 08-14-2023 Telephone encounter Note Faxed. Luly Strickland LPN [facility] 08-14-2023 Miscellaneous Notes Faxed. Luly Strickland LPN [facility] IR calling. They are needing an updated H&P for patient's 08/23 biopsy or an addendum made to 07/04 visit. Luly Strickland LPN documented in this encounter [facility] 08-14-2023 Telephone encounter Note [facility] IR calling. They are needing an updated H&P for patient's 08/23 biopsy or an addendum made to 07/04 visit. Luly Strickland LPN [facility] 08-07-2023 Telephone encounter Note Left voicemail message. EBUS biopsy with atypical cells but no definitive diagnosis of cancer. The IP did not biopsy the lung nodule. She will need a CT guided biopsy of the nodule. This can be arranged at [facility] or [place]. She was instructed to call me to discuss. [facility] 08-07-2023 Miscellaneous Notes Left voicemail message. EBUS biopsy with atypical cells but no definitive diagnosis of cancer. The IP did not biopsy the lung nodule. She will need a CT guided biopsy of the nodule. This can be arranged at [facility] or [place]. She was instructed to call me to discuss. documented in this encounter [facility] 07-31-2023 History of Present illness Narrative July 31, 2023 Standing PSG Orders signed in the last 90 days None Future PSG Orders signed in the last 90 days Ordered Auth. provider HOME SLEEP APNEA TEST (HSAT) [[id number]] 07/05/23 Ny Ross MD Assoc. diagnoses: Snoring [R06.83] Q: Indications: A: Obstructive sleep apnea Q: STOP-BANG conditions - Select All That Apply: A: AGE > 50 A2: SNORING that is loud or disruptive A3: TIREDNESS, fatigue or sleepiness during the day A4: OBSERVED sleep apnea Q: Current use of supplemental oxygen during sleep period?: A: No All Prior Sleep Studies (past 365 days) 07/05/2023 11:31 Sleep Studies HOME SLEEP APNEA TEST (HSAT) HOME SLEEP APNEA TEST (HSAT) Order Status: Ordered, Future Expires: 07/04/24 BMI Readings from Last 2 Encounters: 07/05/23 : 33.46 kg/m 07/05/23 : 33.46 kg/m PAST MEDICAL HISTORY Diagnosis Date Hemorrhage of rectum and anus HYPERLIPIDEMIA MIXED 07/10/2005 Lung nodule 06/13/2016 June 25, 2017 subcentimeter lung nodules and interstitial lung disease also stable from 2017: check CT in 1 year. Primary biliary cholangitis (HCC) Snoring Systemic lupus erythematosus (HCC) The medical record was reviewed to determine if the proposed sleep study conforms to the [facility] Practice Parameters for the Indications for Polysomnography and Related Procedures, or if the sleep study is indicated for other reasons. Indications for study: RODRIGO suspected without comorbid medical or sleep disorders Sleep study to be performed: Home Sleep Apnea Test (HSAT) Special instructions: None-follow laboratory protocol [facility] Staff Note: I have read the above protocol, edited as needed, and agree to the plan. Kandi Castro MD 12:38 PM, 07/31/2023 July 28, 2023 An order has been received for Home Sleep Apnea Test (HSAT) from Ny Riggs MD , a [facility] Staff. Visit prep complete. Comments :No The sleep study is scheduled for 08/01. Insurance: Payor: [employer] / Plan: BLUE CARD PPO OOS / Product Type: PPO / Payer/Plan Subscr Sex Relation Sub. Ins. ID Effective Group Num 1. LEONARDO - CATHY* NAVDEEP SCHWARTZET 1960 Female Self [id number] 11/[birth year]/21 [id number] Raquel Obrien documented in this encounter [facility] 07-30-2023 Telephone encounter Note Patient informed via mychart All of your Liver Function test is perfect Huma Hylton LPN July 30, 2023 0848 [facility] 07-30-2023 Miscellaneous Notes Patient informed via mychart All of your Liver Function test is perfect Huma Hylton LPN July 30, 2023 0848 Please inform the LFT's are perfect. documented in this encounter [facility] 07-29-2023 Telephone encounter Note Please inform the LFT's are perfect. [facility] 07-20-2023 History of Present illness Narrative Images from the original note were not included. Dear Dr. Ny Ross, Thank you for this interesting e-consult. RLL Lesion and Right hilar node- good case for EBUS I have submitted this note to our bronchoscopy scheduling team. Feel free to review it if you feel it is necessary. Thank you again. Ayo Kasper MD 07/20/2023 11:26 AM TO BRONCHOSCOPY TEAM: Bronchoscopy Request: Please schedule patient for the following: Outpatient Visit: Bronch Only, visit not needed (last H&P Date: 07/05/2023), Bronchoscopy Procedures: Staging EBUS Timing: Next available Time Allotment/Tier: TIER 2: 2 HOUR Physician Performing Bronchoscopy:Bronch A, B or C Anesthesia Type: General Special Requests: None Needs Labs: Yes, CBC and BMP Needs EKG: Yes Needs CT prior: No Does the pt need cardiac clearance? No Is he/she on anticoagulants/anti-plt therapy? No Nursing Considerations: (ie: shelter, TB, respiratory isolation, etc.) none Diagnosis/Reason for Bronchoscopy: Adenopathy , Lung nodule(s)/Mass, needs staging and diagnosis Referred by: Ny Ross Reviewed by: Ayo Mann MD ADDENDUM: CBC with diff: WBC 7.71 04/04/2023 RBC 4.76 04/04/2023 Hemoglobin 14.7 04/04/2023 Hematocrit 43.4 04/04/2023 MCV 91.2 04/04/2023 MCH 30.9 04/04/2023 MCHC 33.9 04/04/2023 RDW-CV 12.2 04/04/2023 Platelet Count 219 04/04/2023 MPV 10.2 04/04/2023 Neut% 63.2 04/04/2023 Lymph% 26.6 04/04/2023 [place]% 7.3 04/04/2023 Eosin% 1.8 04/04/2023 Baso% 0.8 04/04/2023 Abs Neut (ANC) 4.88 04/04/2023 Abs [place] 0.56 04/04/2023 Abs Eosin 0.14 04/04/2023 Abs Baso 0.06 04/04/2023 Potassium Date Value Ref Range Status 05/12/2023 4.9 3.7 - 5.1 mmol/L Final 04/04/2023 4.1 3.7 - 5.1 mmol/L Final 11/03/2022 4.4 3.7 - 5.1 mmol/L Final Sodium Date Value Ref Range Status 05/12/2023 144 136 - 144 mmol/L Final 04/04/2023 140 136 - 144 mmol/L Final 01/13/2023 139 136 - 144 mmol/L Final BUN Date Value Ref Range Status 05/12/2023 10 7 - 21 mg/dL Final Creatinine Date Value Ref Range Status 05/12/2023 0.65 0.58 - 0.96 mg/dL Final 04/04/2023 0.61 0.58 - 0.96 mg/dL Final 01/13/2023 0.63 0.58 - 0.96 mg/dL Final 11/03/2022 0.61 0.58 - 0.96 mg/dL Final documented in this encounter [facility] 07-19-2023 Telephone encounter Note Spoke with Vickey regarding PET scan obtained at [facility]. Intense uptake in right lower lobe nodule as well as uptake in right hilum. She will need EBUS biopsy. Agreeable for referral to [facility]. [facility] 07-19-2023 Miscellaneous Notes Spoke with Vickey regarding PET scan obtained at [facility]. Intense uptake in right lower lobe nodule as well as uptake in right hilum. She will need EBUS biopsy. Agreeable for referral to [facility]. documented in this encounter [facility] 07-16-2023 History of Present illness Narrative Incidental Lung Nodule Enrollment Outreach attempt: 1st Attempt Outreach status: Complete Enrolled in Lung Nodule program: No Declined reason: Patient already followed by another [facility] provider for incidental lung nodule(s). Lung Nodule outreach: No outreach - Pulmonary Lung Nodule Program Location: [facility] being followed by Dr. Ross PET being performed At [facility] and then plans for BX per OV note. Andreia Mas APRN.DIRECTOR OF PURCHASING documented in this encounter [facility] 07-05-2023 Instructions Ny Ross MD - 07/05/2023 11:35 AM EDT [facility] will contact you to set up appointment for PET scan. Need to notify Dr. Ross when testing done documented in this encounter [facility] 07-05-2023 History of Present illness Narrative Images from the original note were not included. . [facility] [place] Note Patient name: Vickey Schwartz PCP: Camilo Jonas MD CC: Establish Care HPI: Vickey Schwartz 63 year old female former less than 13-nrdo-cosp smoker having quit in 2016 with PMH significant for obesity, HLD, primary biliary cholangitis, discoid lupus (Plaquenil) seen by pulmonary on [address] [place] for concerns of interstitial lung disease. 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 CT has been stable and pulmonary function tests do not show restriction or low diffusing capacity. Patient prefers pulmonary follow-up closer to home. Patient is asymptomatic so antifibrotic therapy has been on hold. 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 She denies significant dyspnea except for with extreme activity. Chronic cough or sputum production. No wheezing. She used to smoke a pack a week but quit in 2015 when she had note of a small nodule on chest CT. Today she states that she continues to do well. Her Plaquenil controls her cutaneous symptoms. She has no arthralgias, erythema or joint effusions, no skin lesions, no edema. She does have photosensitivity and limits her sun exposure. She has excessive daytime sleepiness, known snoring and witnessed apneas. HSAT from 2020 showed possible mild obstructive sleep at but she never followed through with formal in lab sleep study. She states that she can fall asleep easily when sitting watching TV or working on her computer. She is a loud snorer, in fact her brother has been bothering her to be reevaluated for apnea. No a.m. headaches. STOP BANG Questionnaire 1. Snoring Do you snore loudly (louder than talking or loud enough to be heard through closed doors)? YES 2. Tired Do you often feel tired, fatigued, or sleepy during daytime? YES 3. Observed Has anyone observed you stop breathing during your sleep? YES 4. Blood Pressure Do you have or are you being treated for high blood pressure? NO 5. BMI BMI more than 35 kg/m2? NO 6. Age Age over 50 yr old? YES 7. Neck circumference Neck circumference greater than 40 cm? NO 8. Gender Gender male? NO * Neck circumference is measured by staff High risk of RODRIGO: answering yes to three or more items Low risk of RODRIGO: answering yes to less than three items DATA: PFT: Pulmonary function test shows small airways obstruction that improves with bronchodilator and normal diffusion PFT 12/2022: Labs: Component Ref Range & Units 3 mo ago DNA Antibody <=200 IU/mL 109 Imaging / Diagnostic Studies: Chest CT today: Chest CT performed today was not officially read but to my review shows possible slight progression of her interstitial lung disease in her right upper lobe and a right lower lobe subpleural spiculated nodule concerning for bronchogenic carcinoma DATE OF EXAM: Dec 05 2021 8:39AM [facility] [id number] - CT CHEST WO IVCON / IMPRESSION: 1. CT findings of definite UIP imaging pattern, essentially stable to minimally progressed since 10/21/2018 and likely related to patient's history of SLE. 2. No new groundglass opacities or airspace consolidation. No suspicious pulmonary nodules. 3. Small nonobstructive RIGHT renal calculus. PAST MEDICAL HISTORY Diagnosis Date Hemorrhage of rectum and anus HYPERLIPIDEMIA MIXED 07/10/2005 Lung nodule 06/13/2016 June 25, 2017 subcentimeter lung nodules and interstitial lung disease also stable from 2017: check CT in 1 year. Primary biliary cholangitis (HCC) Snoring Systemic lupus erythematosus (HCC) ALLERGIES Allergen Reactions Adhesive Tape (Sammi* Itching Itching and redness pantoprazole DR (PROTONIX) 40 mg tablet Take 1 tablet by mouth once daily. ursodiol (ACTIGALL) 300 mg capsule Take 1 capsule by mouth three times a day. hydrOXYchloroQUINE (PLAQUENIL) 200 mg tablet Take 1 tablet by mouth two times a day. albuterol HFA (PROVENTIL HFA, VENTOLIN HFA) 90 mcg/actuation inhaler Inhale 2 Puffs as instructed every 4 hours as needed. clotrimazole-betamethasone (LOTRISONE) lotion Betamethasone / Clotrimazole Clotrimazole/Betamethasone Dip [Clotrimazole-Betamethasone Lot] 30 ML TP NEEDED PRN For SKIN June 14, 2017 Active 06-14-2017 [facility] ([id number]) tacrolimus (PROTOPIC) 0.1 % ointment Apply twice daily to affected areas on face Clobetasol Propionate (TEMOVATE) 0.05 % external solution Apply to affected areas on the scalp twice a day. Dispense 100ml as 30 day supply. biotin 5,000 mcg ODT Take by mouth once daily. Calcium-Cholecalciferol, D3, 500 mg-10 mcg (400 unit) per tablet Take 1 tablet by mouth once daily. triamcinolone acetonide (KENALOG) 0.1 % cream Apply to rash on body twice a day M-F, take weekends off Social History Tobacco Use Smoking status: Former Packs/day: 0.15 Years: 45.00 Additional pack years: 0.00 Total pack years: 6.75 Types: Cigarettes Quit date: 01/17/2016 Years since quittin.4 Smokeless tobacco: Never Tobacco comments: One pack a week Vaping Use Vaping Use: Never used Substance Use Topics Alcohol use: No Drug use: No Works on [employer] at [employer]. Patient reports asbestos abatement at her workplace Pets: None FAMILY HISTORY Problem Relation Age of Onset Diabetes Mother Hypertension Mother Stroke Mother other (? SFTP) Mother Heart Father age 60's other (PBC) Father None Brother Obstructive Sleep Apnea Brother Colon Cancer Paternal Grandmother Colon Cancer Paternal Grandfather PAST SURGICAL HISTORY Procedure Laterality Date COLONOSCOPY FLX DX W/COLLJ SPEC WHEN PFRMD 06/29/2016 HAD VASOVAGAL RESPONSE DURING PROCEDURE SYST BP 60'S HR 40'S-GIVEN ATROPINE CORRJ HLX VLGS BNCTY SESMDC DSTL METAR OSTEOT 1986 DIAGNOSTIC ARTHROSCOPY SHOULDER +- SYNOVIAL BX Left 04/03/2018 Left shoulder arthroscopic subacromial decompression, rotator cuff repair, and biceps tenotomy EGD 12/25/2022 repeat 2 years ESOPHAGOGASTRODUODENOSCOPY TRANSORAL DIAGNOSTIC 11/11/2018 EGD ESOPHAGOGASTRODUODENOSCOPY TRANSORAL DIAGNOSTIC 11/22/2020 repeat in 2 years HYSTEROSCOPY 06/21/2017 D&C SIGMOIDOSCOPY ?2000 SKIN BIOPSY HX TONSILLECTOMY HX PMH, Social history, family history and surgical history reviewed and updated in EMR REVIEW OF SYSTEMS: CONSTITUTIONAL: No fevers, chills, nightsweats, unintended weight loss. Daytime fatigue HEENT: Denies frequent or severe heaches, nasal congestion/sinus symptoms, problematic allergy problems. EYES: No diplopia or blurry vision. CARDIOVASCULAR: No chest pain, palpitations, orthopnea, PND, edema. PULM: See HPI GI: No dysphagia/odynophagia, problematic reflux, constipation, diarrhea. Primary biliary cholangitis : No urinary complaints, including dysuria, gross hematuria or pyuria. NEURO: No balance problems, peripheral weakness/paresthesias or numbness of concern. MUSC-SKEL: No new joint pain, swelling, or erythema. PSY: No concerns regarding depression, anxiety INTEGUMENTARY: No new skin changes. Photosensitivity PHYSICAL EXAMINATION: BP 104/60 Pulse 63 Resp 12 Ht 5' 4.5 (1.64m) Wt 198 lb (89.8kg) SpO2 97% BMI 33.47 kg/(m^2). General Appearance: Obese female, NAD. Skin: Skin color, texture, turgor normal, no suspicious rashes or lesions. Head: Normocephalic, no masses, lesions, tenderness or abnormalities. Eyes: Sclera, conjunctiva normal. Oropharynx: Poor dentition, no oral lesions. Neck: No JVD, no masses, no thyromegaly. Lungs: Not labored, normal to percussion, faint crackles right base. Heart: Regular rate and rhythm, no murmurs or gallops. Extremities: No edema or clubbing. Musculoskeletal: No joint deformities or synovitis. Neurologic: Alert and oriented, no focal findings. Lymph Nodes: No cervical lymphadenopathy and No supraclavicular lymphadenopathy. Assessment/Plan: 1. ILD -To my review her chest CT shows possible slight progression although this is not reflected in her pulmonary function testing or her symptoms -Would continue to hold antifibrotic therapy at this time -Continued surveillance 2. Lung nodule -New right lower lobe subpleural nodule with configuration that is suspicious for possible bronchogenic carcinoma -PET scan and biopsy 3. Snoring -High risk for obstructive sleep apnea -Repeat HSAT and depending on results will either need a CPAP titration study or split-night study 4. Small airways disease -Recommend as needed albuterol -Prescription sent in to [facility] 5. Cutaneous lupus -Well-controlled with Plaquenil and avoidance of sun exposure -Follows with rheumatology Ny Ross MD [facility] [place] documented in this encounter [facility] 07-05-2023 Nurse Note Intake information documented in the prior visit with OTILIO Issa today. [facility] 07-05-2023 Nurse Note Intake information documented in the prior visit with OTILIO Issa today. documented in this encounter [facility] 07-05-2023 History of Present illness Narrative PULM FUNCTION SMARTBLOCK: Provider: Lindsey Hightower MD Assisting Tech: Suri Rodriguez RPFT Spirometry w/BD: 1 DLCO: 1 documented in this encounter [facility] 07-05-2023 History of Present illness Narrative Radiology Service Progress Note PATIENT NAME: Vickey Schwartz DATE OF SERVICE: July 05, 2023 TIME: 10:43 AM PATIENT IDENTITY VERIFICATION COMPLETED USING TWO (2) IDENTIFIERS: Name and Date of confirmed by patient verbally. FALL SCREENING: Has the patient had 2 falls in the last year or 1 fall with injury or currently using an Ambulatory Assistive Device (Walker, Cane, Wheelchair, Crutches, etc.)? No PATIENT GENDER DATA: Female. status: : No status: NO. PATIENT RELEVANT IMPLANT DATA REVIEWED: Yes PATIENT PRESENTS WITH AN IMPLANTABLE OR ATTACHED PREPRESS SPECIALIST: No RADIOLOGY DEPARTMENT: CT; Exam(s) Completed: Chest PERIPHERAL IV DATA: Not applicable SIGNED BY: RT Lorie(R) July 05, 2023 10:43 AM documented in this encounter [facility] 06-26-2023 Telephone encounter Note Patient notified [facility] 06-26-2023 Miscellaneous Notes Patient notified Please inform that the MRI shows a benign collection of muscle. Please be sure that she has a routine virtual visit scheduled. notified Please inform the liver function tests are completely normal. documented in this encounter [facility] 06-26-2023 Telephone encounter Note Please inform that the MRI shows a benign collection of muscle. Please be sure that she has a routine virtual visit scheduled. [facility] 06-22-2023 History of Present illness Narrative Radiology Service Progress Note DATE OF SERVICE: June 22, 2023 TIME: 8:40 AM PATIENT IDENTITY VERIFICATION COMPLETED USING TWO (2) STANDARD IDENTIFIERS: Name and Date of confirmed by patient verbally. FALL SCREENING: Has the patient had 2 falls in the last year or 1 fall with injury or currently using an Ambulatory Assistive Device (Walker, Cane, Wheelchair, Crutches, etc.)? No PATIENT GENDER DATA: Female. status: : No status: NO. PATIENT RELEVANT IMPLANT DATA REVIEWED: Yes PATIENT PRESENTS WITH AN IMPLANTABLE OR ATTACHED PREPRESS SPECIALIST: No ALLERGIES: Reviewed and unchanged CONTRAST ALLERGY: NO. EXAM: MRI - CONTRAST TYPE: GROUP II PERIPHERAL IV DATA: Ambulatory: A peripheral IV was started in the Right upper extremity with a Angio cath: 22 gauge. RADIOLOGY DEPARTMENT: MR; Exam(s) Completed: Body: Pancreas/Biliary SIGNATURE: RT Codi(R) PATIENT NAME: Vickey Schwartz DATE: June 22, 2023 TIME: 8:40 AM documented in this encounter [facility] 05-21-2023 Telephone encounter Note notified [facility] 05-20-2023 Telephone encounter Note Please inform the liver function tests are completely normal. [facility] 04-04-2023 History of Present illness Narrative Clinical Research Study - Orthopaedic & Rheumatologic [place] IRB# [id number] Title: Lupus Registry PI: Dr Pineda Vickey Schwartz completed follow-up #1 today, April 04, 2023, Questionnaires and labs for this registry were completed. Cristo De La Rosa Research Coordinator - Rheumatic and Immunologic Diseases Pager: [phone] documented in this encounter [facility] 04-04-2023 History of Present illness Narrative Images from the original note were not included. 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 She has been previously seen by Dr. Padgett 09/01/2019. Background history: 06/18/[address] Luque. She states she had been having joint pain in April-June 2017, but she did not have any skin rashes over the face at that time. The joint pain was located in the knees and elbows bilaterally, and went away after 2 months. Did not notice any red hot or swollen joints at that time. No morning stiffness at that time, and pain did not change much over the course of the day. She did have some skin rash (red at that time) over the forearms and trunks. Her rash then spread to the face after her 06/18/17 rheumatology appointment, and she was referred to derm. 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 She was also started on plaquenil on 03/01/18 On 05/13/18, Dr. Montesinos (derm) noted increased hair loss over the scalp, and had been experiencing increased photosensitivity. She is getting creams and lotions for her skin rash, which has been helpful. She does note increased stains of hyperpigmentation over areas where the prior rash had occurred. Patient notes that it has been years since she has been more sensitive to sunlight. She states in the past she may get hives from being in the sun. 11/2021 she was diligent about sun protection, still taking HCQ 2 tablets/daily. She was last seen 09/2022 when she was doing well. She has since had repeat PFTs which were normal 12/2022. She has been feeling well without shortness of breath, joint pain, mucosal ulcers, photosensitivity, pleurisy or chest pain. Answers submitted by the patient for this visit: Review of Systems Rheumatology (Submitted on 04/02/2023) Fever : No Recent unintentional weight change: No Eye pain: No Eye redness: No Vision Disturbance: No Eye Dryness: No Nosebleeds: No Sores in your mouth: No Trouble Swallowing: No Dry Mouth: Yes Chest pain: No Leg Swelling: No A cough: No Shortness of breath: No Pain with breathing: No Heartburn: No Abdominal pain: No Diarrhea: No Black tarry stools: No Blood in urine: No Pain or burning with urination: No Joint pain or stiffness: No Muscle weakness: No Muscle aches: No Joint swelling: No Morning Stiffness in Joints: No A rash: No Skin Color Changes: No Hair Loss: No Nail Changes: No Headaches: No Numbness: No Memory Loss: No Swollen Glands: No PMHx: PAST MEDICAL HISTORY Diagnosis Date Hemorrhage of rectum and anus HYPERLIPIDEMIA MIXED 07/10/2005 Lung nodule 06/13/2016 June 25, 2017 subcentimeter lung nodules and interstitial lung disease also stable from 2017: check CT in 1 year. Primary biliary cholangitis (HCC) Snoring PSHx: PAST SURGICAL HISTORY Procedure Laterality Date COLONOSCOPY FLX DX W/COLLJ SPEC WHEN PFRMD 06/29/2016 HAD VASOVAGAL RESPONSE DURING PROCEDURE SYST BP 60'S HR 40'S-GIVEN ATROPINE CORRJ HLX VLGS BNCTY SESMDC DSTL METAR OSTEOT 1986 DIAGNOSTIC ARTHROSCOPY SHOULDER +- SYNOVIAL BX Left 04/03/2018 Left shoulder arthroscopic subacromial decompression, rotator cuff repair, and biceps tenotomy EGD 12/25/2022 repeat 2 years ESOPHAGOGASTRODUODENOSCOPY TRANSORAL DIAGNOSTIC 11/11/2018 EGD ESOPHAGOGASTRODUODENOSCOPY TRANSORAL DIAGNOSTIC 11/22/2020 repeat in 2 years HYSTEROSCOPY 06/21/2017 D&C SIGMOIDOSCOPY ?2000 SKIN BIOPSY HX TONSILLECTOMY HX MEDICATIONS: iv contrast (will be provided with radiology test) MRI PANC/ARMANDO Inject, intravenously, once for 1 dose. No IV access, insert saline lock prior to the beginning of sedation, infusion, injection of imaging exam. Discontinue saline lock post exam. If Pt. has a central line or IVAD, may access for administration according to line specific nursing protocol. Once exam is complete flush line and de-access according to line specific nursing protocol in the MR contrast administration guidelines link. hydrOXYchloroQUINE (PLAQUENIL) 200 mg tablet take 1 tablet twice a day pantoprazole DR (PROTONIX) 40 mg tablet TAKE 1 TABLET DAILY ursodiol (ACTIGALL) 300 mg capsule Take 1 capsule by mouth three times daily. Cholecalciferol, Vitamin D3, (VITAMIN D) 25 mcg (1,000 unit) cap Take 2 capsules by mouth once daily. clotrimazole-betamethasone (LOTRISONE) lotion Betamethasone / Clotrimazole Clotrimazole/Betamethasone Dip [Clotrimazole-Betamethasone Lot] 30 ML TP NEEDED PRN For SKIN June 14, 2017 Active 06-14-2017 [facility] ([id number]) tacrolimus (PROTOPIC) 0.1 % ointment Apply twice daily to affected areas on face Clobetasol Propionate (TEMOVATE) 0.05 % external solution Apply to affected areas on the scalp twice a day. Dispense 100ml as 30 day supply. biotin 5,000 mcg ODT Take by mouth once daily. Calcium-Cholecalciferol, D3, 500 mg-10 mcg (400 unit) per tablet Take 1 tablet by mouth once daily. triamcinolone acetonide (KENALOG) 0.1 % cream Apply to rash on body twice a day M-F, take weekends off ALLERGIES: ALLERGIES Allergen Reactions Adhesive Tape (Sammi* Itching Itching and redness OBJECTIVE: Physical Examination: Vitals: BP 120/59 Pulse 70 Temp 37.1 C (98.7 F) (Oral) Wt 90.4 kg (199 lb 4.7 oz) BMI 34.21 kg/m General: Looks well, NAD, A & Ox3. HEENT: No facial rash. +alopecia. Neck: No LAD. CVS: RRR, nl S1/S2, no R/M/G, Resp: CTAB. Ext: No edema. Neuro: Gait Normal. Skin: No rash. No ulcers. Musculoskeletal: Shoulders: No swelling, no tenderness, good ROM Elbows: No swelling, no tenderness, no flexion contractures, no nodules, good ROM Wrists: No swelling, no tenderness, no limitation in flexion and extension Hands: No evidence of synovitis. Able to make full fist bilaterally IMPRESSIONS/RECOMMENDATIONS: SLE, +alopecia 2018 ACR/EULAR classification criteria: +SHADI 1:320 speckled, with an equivocal range dsDNA with no other laboratory features of systemic lupus. 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 CT scan from 11/2021 with findings of definite UIP imaging pattern, essentially stable to minimally progressed since 10/21/2018 and likely related to patient's history of SLE. PFTs were normal as of 12/2022. She will continue HCQ 400 mg daily, along with topical treatments per Dermatology. SLE activity labs today ordered for her today with [facility] follow up. Health Maintenance HCQ: Exam scanned into system from 03/21/2022. She went again 03/2023. Vaccinations: up to date with COVID vaccines and bivalent booster. Yearly influenza given 11/2021. Prevnar 20 given 09/2021 RTC 9 months. Boaz Pineda D.O. Rheumatology Staff documented in this encounter [facility] 04-04-2023 Instructions Allen Valdes MD - 04/04/2023 10:37 AM EST Pt had bloods on 03/10/23 at [place] [facility]. Please see if can get results. Please see if can get the MRCP in [place]. documented in this encounter [facility] 04-04-2023 History of Present illness Narrative DEPARTMENT OF GASTROENTEROLOGY - NEW PATIENT/CONSULT REASON FOR VISIT Vickey Schwartz is a 62 year old female who is scheduled at the request of Dr Jonas for Established Patient (Yearly follow up). My final recommendations will be communicated back to the requesting physician by the way of the shared medical record, fax, or via US Mail HISTORY OF PRESENT ILLNESS Vickey Schwartz is a 62 year old female who presents today for an evaluation of abnormal LFT's. Last seen 11/22/2022 PAST MEDICAL HISTORY Diagnosis Date Hemorrhage of rectum and anus HYPERLIPIDEMIA MIXED 07/10/2005 Lung nodule 06/13/2016 June 25, 2017 subcentimeter lung nodules and interstitial lung disease also stable from 2017: check CT in 1 year. Primary biliary cholangitis (HCC) Snoring PAST SURGICAL HISTORY Procedure Laterality Date COLONOSCOPY FLX DX W/COLLJ SPEC WHEN PFRMD 06/29/2016 HAD VASOVAGAL RESPONSE DURING PROCEDURE SYST BP 60'S HR 40'S-GIVEN ATROPINE CORRJ HLX VLGS BNCTY SESMDC DSTL METAR OSTEOT 1986 DIAGNOSTIC ARTHROSCOPY SHOULDER +- SYNOVIAL BX Left 04/03/2018 Left shoulder arthroscopic subacromial decompression, rotator cuff repair, and biceps tenotomy EGD 12/25/2022 repeat 2 years ESOPHAGOGASTRODUODENOSCOPY TRANSORAL DIAGNOSTIC 11/11/2018 EGD ESOPHAGOGASTRODUODENOSCOPY TRANSORAL DIAGNOSTIC 11/22/2020 repeat in 2 years HYSTEROSCOPY 06/21/2017 D&C SIGMOIDOSCOPY ?2000 SKIN BIOPSY HX TONSILLECTOMY HX Current Outpatient Medications Medication Sig Dispense Refill hydrOXYchloroQUINE (PLAQUENIL) 200 mg tablet take 1 tablet twice a day [address] (PROTONIX) 40 mg tablet TAKE 1 TABLET DAILY 90 tablet 3 ursodiol (ACTIGALL) 300 mg capsule Take 1 capsule by mouth three times daily. 270 capsule 3 Cholecalciferol, Vitamin D3, (VITAMIN D) 25 mcg (1,000 unit) cap Take 2 capsules by mouth once daily. clotrimazole-betamethasone (LOTRISONE) lotion Betamethasone / Clotrimazole Clotrimazole/Betamethasone Dip [Clotrimazole-Betamethasone Lot] 30 ML TP NEEDED PRN For SKIN June 14, 2017 Active 06-14-2017 [facility] ([id number]) tacrolimus (PROTOPIC) 0.1 % ointment Apply twice daily to affected areas on face 30 g 3 Clobetasol Propionate (TEMOVATE) 0.05 % external solution Apply to affected areas on the scalp twice a day. Dispense 100ml as 30 day supply. 100 mL 3 biotin 5,000 mcg ODT Take by mouth once daily. Calcium-Cholecalciferol, D3, 500 mg-10 mcg (400 unit) per tablet Take 1 tablet by mouth once daily. triamcinolone acetonide (KENALOG) 0.1 % cream Apply to rash on body twice a day M-F, take weekends off 454 g 0 No current facility-administered medications for this visit. ALLERGIES Allergen Reactions Adhesive Tape (Sammi* Itching Itching and redness Social History Tobacco Use Smoking status: Former Packs/day: .15 Types: Cigarettes Quit date: 01/17/2016 Years since quittin.2 Smokeless tobacco: Never Vaping Use Vaping Use: Never used Substance Use Topics Alcohol use: No Drug use: No PHYSICAL EXAMINATION There were no vitals taken for this visit. General Appearance: Well appearing, alert, in no acute distress, well-hydrated, well nourished. RECENT LABS CBC: WBC (k/uL) Date Value 10/02/2022 11.59 (H) 11/14/2021 7.41 Hematocrit (%) Date Value 10/02/2022 43.2 MCV (fL) Date Value 10/02/2022 93.3 Platelet Count (k/uL) Date Value 10/02/2022 273 Lymphocytes % (%) Date Value 10/02/2022 25.6 Comprehensive Metabolic Panel: Glucose (mg/dL) Date Value 01/13/2023 80 BUN (mg/dL) Date Value 01/13/2023 8 Creatinine (mg/dL) Date Value 01/13/2023 0.63 Sodium (mmol/L) Date Value 01/13/2023 139 Potassium (mmol/L) Date Value 11/03/2022 4.4 Chloride (mmol/L) Date Value 01/13/2023 103 CO2 (mmol/L) Date Value 01/13/2023 22 Protein, Total (g/dL) Date Value 01/13/2023 8.6 (H) Albumin (g/dL) Date Value 01/13/2023 4.3 Calcium, Total (mg/dL) Date Value 01/13/2023 10.1 Alkaline Phosphatase (U/L) Date Value 01/13/2023 123 Bilirubin, Total (mg/dL) Date Value 01/13/2023 0.5 AST (U/L) Date Value 01/13/2023 41 (H) ALT (U/L) Date Value 01/13/2023 32 US RUQ 12/2022 IMPRESSION: Mildly heterogeneous echotexture of the liver with mild lobular contour. 1.1 cm nodular lesion along the gallbladder wall, likely representing gallbladder polyp/cholesterol polyp. RESULT: Pancreas: Normal sonographic appearance in the visualized portions. Portions obscured: tail Liver: Echotexture: Slightly heterogeneous Echogenicity: Normal Surface contour: Mildly lobulated Lesions: None. Biliary: No intrahepatic biliary duct dilation. CBD: 3 mm in diameter. Gallbladder: Normal caliber -Contents: No cholelithiasis -Wall: 2 mm in thickness. There is a 1.0 x 0.7 x 1.1 cm nodular lesion along the gallbladder wall. -Other: Negative sonographic Cortez's sign. Kidneys: Within normal limits, measuring 10.9 cm in length of the right kidney and 11.2 cm in length of the left kidney. Spleen: The spleen is normal in appearance and size, without mass lesion seen. The spleen measures 8.2 x 4.3 x 6.5 cm. EGD 12/2022 Impression: - Z-line irregular, 36 cm from the incisors. - LA Grade A reflux esophagitis with no bleeding. Biopsied. - Small hiatal hernia. - Normal stomach. Biopsied. - Normal examined duodenum. Biopsied. FINAL DIAGNOSIS A. Duodenum, biopsy: - Small bowel mucosa with no diagnostic abnormality. B. Stomach, antrum, biopsy: - Gastric antral-type mucosa with mild reactive gastropathy. C. Distal esophagus, biopsy: - Intestinal metaplasia (see comment). - Squamous mucosa with reactive epithelial changes suggestive of gastroesophageal reflux. D. Mid esophagus, biopsy: - Fragment of intestinal-type mucosa (see comment). - Squamous mucosa with mild reactive epithelial changes. JEL 12/26/2022 Diagnosis Comment B. No Helicobacter pylori organisms are identified. C. ACG guidelines require an endoscopic abnormality that extends at least 1 cm proximal to the gastroesophageal junction in addition to a histologic finding of intestinal metaplasia in order to establish a diagnosis of Milton's esophagus. It's unclear based on the histologic findings whether the fragment of intestinal-type mucosa in Part D represents intestinal metaplasia or a contaminant from Part A. Correlation with endoscopic findings is recommended. There is no evidence of dysplasia or malignancy. Assessment IMPRESSION This is a 62-year-old female with a follow-up visit for primary biliary cirrhosis. She was last seen 11/22/2022 with the following impression: 60-year-old female with primary biliary cirrhosis. Her last office visit was 01/21/2020 with the following impression: The patient is doing great she is feeling well. Her LFTs are improved with minimal elevation of her alk phos. She had a follow-up right upper quadrant ultrasound showing adenomyomatosis of the gallbladder. The study was suboptimal because of gas in the abdomen. Her LFTs are improved as above. Her last EGD was in November 2018 and was normal. At this time we will have the patient follow-up with her blood test in 6 months. Would like to pursue a repeat endoscopy in November 2020. The patient will continue her medications at the above dosage. The patient's last FibroScan was 02/27/2019 with the following impression: Impression. The reading was adequate, and corresponds to Fibrosis stage F2 and steatosis grade of S3. The patient currently is feeling great she is having no pruritus, abdominal pain, confusion, weight gain. At this time she is scheduled for an EGD for varices E surveillance in November of this year. We will obtain repeat blood testing and a 6-month interval repeat right upper quadrant ultrasound. Since that time the patient has been doing very well. She is having no abdominal pain confusion, change in gait, abdominal pain, swelling, edema or bleeding. She did have on 11/12/2020 MRCP showing benign gallbladder adenomatosis no stones or biliary dilatation there was no gallbladder polyp. On 10/20/2020 she had a right upper quadrant ultrasound showing showing normal liver echotexture. On 11/22/2020 she had an EGD that was negative for Milton's and negative for varices. She will have a repeat EGD in 2 years. Her LFTs show persistent mild elevation of her alkaline phosphatase but normal transaminases. At this time we will repeat her LFTs continue her on the Actigall 300 3 times daily. We will plan on a repeat visit in 1 year. Update 11/22/2022: The patient is feeling great she is having no confusion, change in gait, observable clinical bleeding, or fluid retention. Her LFTs are now completely normal. At this time we will plan for 2-year interval EGD, annual right upper quadrant ultrasound, and every 6 months LFTs. I did offer to the patient to be seen by the primary sclerosing cholangitis/PSC study group but she declines at this time. Update 04/04/2023: Since that time the patient is doing well. Her LFTs are essentially normal, her follow-up sonogram showed sleep coarse echotexture, and her EGD did not show any varices. She is doing great and will continue on her current dose of medications and routine LFTs. She does have a gallbladder polyp that is increasing in size for which we will get an MRCP. PLAN above Allen Valdes MD April 04, 2023 Answers submitted by the patient for this visit: Review of Systems Gastroenterology (Submitted on 04/02/2023) Fever: No Chills: No Night Sweats: No Unitentional Weight Change: No A Cough: No Difficulty Breathing: No Chest Pain: No Belly pain: No A feeling of fullness or have belly pain after eating: No Food getting stuck in your throat or chest after eating: No Nausea - that is, a feeling like you could vomit: No Regurgitation - that is, food or liquid coming back up into your throat or mouth without vomiting, or feel burning behind your breast bone: No Loss of appetite: No To throw up or vomit: No Blood in your stools: No Black tarry stools: No Loose or watery stools: No The feeling like you need to empty your bowels right away - that is, feel as if you would have an accident: No Bowel incontinence - that is, have an accident because you cannot make it to the bathroom in time: No Problems with straining while having bowel movements , hard or lumpy stools, or feel unfinished (that you have not passed all your stool): No Pain in rectum or anus during bowel movements: No Problems with jaundice - that is, yellow discoloration of your skin or eyes, now or in the past: No Problems with having to flush the toilet more than two times due to oily stool, or see stool floating with oil: No documented in this encounter [facility] 01-23-2023 Telephone encounter Note notified [facility] 01-23-2023 Miscellaneous Notes notified CMP ordered. documented in this encounter [facility] 01-21-2023 Telephone encounter Note CMP ordered. [facility] 01-15-2023 Telephone encounter Note Notified via [facility] 01-15-2023 Miscellaneous Notes Notified via Please inform the LFT's look good. Make sure has f/u. documented in this encounter [facility] 01-14-2023 Telephone encounter Note Please inform the LFT's look good. Make sure has f/u. [facility] Work Phone: 01-11-2023 History of Present illness Narrative 62 year old female with c/o here for RSV vaccine. Expected side effects reviewed with patient with VIS sheet provided. HISTORIES FAMILY HISTORY Problem Relation Age of Onset Heart Father age 60's Diabetes Mother Hypertension Mother Stroke Mother Colon Cancer Paternal Grandmother Colon Cancer Paternal Grandfather None Brother None Brother PAST MEDICAL HISTORY Diagnosis Date Hemorrhage of rectum and anus HYPERLIPIDEMIA MIXED 07/10/2005 Lung nodule 06/13/2016 June 25, 2017 subcentimeter lung nodules and interstitial lung disease also stable from 2017: check CT in 1 year. Primary biliary cholangitis (HCC) Snoring PAST SURGICAL HISTORY Procedure Laterality Date COLONOSCOPY FLX DX W/COLLJ SPEC WHEN PFRMD 06/29/2016 HAD VASOVAGAL RESPONSE DURING PROCEDURE SYST BP 60'S HR 40'S-GIVEN ATROPINE CORRJ HALLUX VALGUS W/SESMDC W/DIST METAR OSTEOT 1986 DIAGNOSTIC ARTHROSCOPY SHOULDER +- SYNOVIAL BX Left 04/03/2018 Left shoulder arthroscopic subacromial decompression, rotator cuff repair, and biceps tenotomy ESOPHAGOGASTRODUODENOSCOPY TRANSORAL DIAGNOSTIC 11/11/2018 EGD ESOPHAGOGASTRODUODENOSCOPY TRANSORAL DIAGNOSTIC 11/22/2020 repeat in 2 years HYSTEROSCOPY 06/21/2017 D&C SIGMOIDOSCOPY ?2000 SKIN BIOPSY HX TONSILLECTOMY HX Social History Tobacco Use Smoking status: Former Packs/day: .15 Types: Cigarettes Quit date: 01/17/2016 Years since quittin.9 Smokeless tobacco: Never Vaping Use Vaping Use: Never used Substance Use Topics Alcohol use: No Drug use: No ACTIVE PROBLEM LIST HYPERLIPIDEMIA MIXED Obesity Primary Biliary Cirrhosis (Hcc) Lung Nodule 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 270 capsule 3 Cholecalciferol, Vitamin D3, (VITAMIN D) 25 mcg (1,000 unit) cap Take 2 capsules by mouth once daily. clotrimazole-betamethasone (LOTRISONE) lotion Betamethasone / Clotrimazole Clotrimazole/Betamethasone Dip [Clotrimazole-Betamethasone Lot] 30 ML TP NEEDED PRN For SKIN June 14, 2017 Active 06-14-2017 [facility] ([id number]) Clobetasol Propionate (TEMOVATE) 0.05 % external solution Apply to affected areas on the scalp twice a day. Dispense 100ml as 30 day supply. 100 mL 3 biotin 5,000 mcg ODT Take by mouth once daily. Calcium-Cholecalciferol, D3, 500 mg-10 mcg (400 unit) per tablet Take 1 tablet by mouth once daily. triamcinolone acetonide (KENALOG) 0.1 % cream Apply to rash on body twice a day M-F, take weekends off 454 g 0 tacrolimus (PROTOPIC) 0.1 % ointment Apply twice daily to affected areas on face 30 g 3 No current facility-administered medications for this visit. RSV Vaccine(1 - 1-dose 60+ series) Never done EXAM: BP 120/60 Pulse 80 Temp 36.7 C (98 F) Resp 16 Wt 90.3 kg (199 lb) SpO2 95% BMI 33.63 kg/m Pleasant older woman in no acute distress. Alert and oriented all spheres. Normal affect and cognition. Speech normal. No deficits to learning or comprehension. Skin warm, dry, pink to lips and nailbeds. Normal turgor. Respirations regular and unlabored. Extrem: no clubbing or cyanosis. Edema: none. Extremities are warm and pink with prompt capillary refill. ASSESSMENT/PLAN: 1. Encounter for immunization - ICD9: V03.89, ICD10: Z23 - RSV VACCINE, BIVALENT (ABRYSVO) Ivis Chang PA-C Some of this note may have been copied and pasted for the purpose of history context and comparison and has been adjusted for changes in prior data. Ivis Chang PA-C documented in this encounter [facility] 01-01-2023 Telephone encounter Note Patient notified [facility] 01-01-2023 Miscellaneous Notes Patient notified Please inform him that the ultrasound looks good. There is likely a gallbladder polyp. The patient should have a either virtual visit or an in person visit in 3 months to discuss further. The EGD did not show varices which was the intent of the exam. She may had mild Milton's esophagus on the pathology. Again this can be discussed either virtually or in person in 2 to 3 months. documented in this encounter [facility] 01-01-2023 Telephone encounter Note Please inform him that the ultrasound looks good. There is likely a gallbladder polyp. The patient should have a either virtual visit or an in person visit in 3 months to discuss further. The EGD did not show varices which was the intent of the exam. She may had mild Milton's esophagus on the pathology. Again this can be discussed either virtually or in person in 2 to 3 months. [facility] Work Phone: 12-26-2022 History of Present illness Narrative Radiology Service Progress Note PATIENT NAME: Vickey Schwartz DATE OF SERVICE: December 26, 2022 TIME: 11:16 AM PATIENT IDENTITY VERIFICATION COMPLETED USING TWO (2) IDENTIFIERS: Name and Date of confirmed by patient verbally. FALL SCREENING: Has the patient had 2 falls in the last year or 1 fall with injury or currently using an Ambulatory Assistive Device (Walker, Cane, Wheelchair, Crutches, etc.)? No PATIENT GENDER DATA: Female. status: : No status: NO. PATIENT RELEVANT IMPLANT DATA REVIEWED: Not Applicable RADIOLOGY DEPARTMENT: Ultrasound PERIPHERAL IV DATA: Not applicable SIGNED BY: Brittni Delacruz RDMS December 26, 2022 11:16 AM documented in this encounter [facility] 12-26-2022 Miscellaneous Notes December 26, 2022 PID: [id number] Vickey Schwartz [address] [place] [address] Dear Ms. Schwartz, We are pleased to inform you that the results of your recent breast imaging exam on 12/26/2022 are normal. Early detection of cancer is very important. We also understand recommendations regarding breast cancer screening are controversial. Please discuss with your primary care provider which strategy is best for you and whether a mammogram is right for you. Your imaging studies and report will be kept on file at [facility] as part of your permanent medical record and are available for your continuing care. Thank you for allowing us to help in meeting your health care needs. Sincerely, Dr. Pedersen Interpreting Radiologist [facility] (Normal over 40) documented in this encounter [facility] 12-26-2022 History of Present illness Narrative Radiology Service Progress Note PATIENT NAME: Vickey Schwartz DATE OF SERVICE: December 26, 2022 TIME: 7:02 AM PATIENT IDENTITY VERIFICATION COMPLETED USING TWO (2) IDENTIFIERS: Name and Date of confirmed by patient verbally. FALL SCREENING: Has the patient had 2 falls in the last year or 1 fall with injury or currently using an Ambulatory Assistive Device (Walker, Cane, Wheelchair, Crutches, etc.)? No PATIENT GENDER DATA: Female. status: : No status: NO. PATIENT RELEVANT IMPLANT DATA REVIEWED: Not Applicable RADIOLOGY DEPARTMENT: Mammography PERIPHERAL IV DATA: Not applicable SIGNED BY: Faiza Ballard Xeroo Pati December 26, 2022 7:02 AM documented in this encounter [facility] 12-08-2022 Miscellaneous Notes Called and left voicemail for Ms. Schwartz to call office for scheduling. Also sent Analyze [employer] message. Please contact the patient and schedule right upper quadrant ultrasound. Also please schedule the CMP every 6 months. documented in this encounter [facility] 11-06-2022 Telephone encounter Note notified [facility] 11-06-2022 Miscellaneous Notes notified Please inform liver function test all normal. documented in this encounter [facility] 11-06-2022 Telephone encounter Note Please inform liver function test all normal. [facility] Work Phone: 10-25-2022 Miscellaneous Notes Last visit 9/23 hydrOXYchloroQUINE (PLAQUENIL) 200 mg tablet Please approve prescription and any additional refills and e-script to designated pharmacy. Thank you, Talisha Kelley documented in this encounter [facility] 10-17-2022 History of Present illness Narrative CC: Patient presents with: Follow Up: Lupus HPI: 62 year old female patient here for: follow up cutaneous lupus Condition remains well controlled Denies flares Continues plaquenil 200mg BID - tolerating well without side effects Had ophtho exam 03/2022, has annual visit set up for 2023 Continues to follow with rheum, now Dr. Pineda for SLE Allergies: ALLERGIES Allergen Reactions Adhesive Tape (Sammi* Itching Itching and redness Medications: Current Outpatient Medications Medication Sig Dispense Refill pantoprazole DR (PROTONIX) 40 mg tablet TAKE 1 TABLET DAILY 90 tablet 3 ursodiol (ACTIGALL) 300 mg capsule Take 1 capsule by mouth three times daily. 270 capsule 3 hydrOXYchloroQUINE (PLAQUENIL) 200 mg tablet TAKE 1 TABLET TWICE A DAY 180 tablet 1 Cholecalciferol, Vitamin D3, (VITAMIN D) 25 mcg (1,000 unit) cap Take 2 capsules by mouth once daily. clotrimazole-betamethasone (LOTRISONE) lotion Betamethasone / Clotrimazole Clotrimazole/Betamethasone Dip [Clotrimazole-Betamethasone Lot] 30 ML TP NEEDED PRN For SKIN June 14, 2017 Active 06-14-2017 [facility] ([id number]) Clobetasol Propionate (TEMOVATE) 0.05 % external solution Apply to affected areas on the scalp twice a day. Dispense 100ml as 30 day supply. 100 mL 3 biotin 5,000 mcg ODT Take by mouth once daily. Calcium-Cholecalciferol, D3, 500 mg-10 mcg (400 unit) per tablet Take 1 tablet by mouth once daily. triamcinolone acetonide (KENALOG) 0.1 % cream Apply to rash on body twice a day M-F, take weekends off 454 g 0 tacrolimus (PROTOPIC) 0.1 % ointment Apply twice daily to affected areas on face 30 g 3 No current facility-administered medications for this visit. PMH: PAST MEDICAL HISTORY Diagnosis Date Hemorrhage of rectum and anus HYPERLIPIDEMIA MIXED 07/10/2005 Lung nodule 06/13/2016 June 25, 2017 subcentimeter lung nodules and interstitial lung disease also stable from 2017: check CT in 1 year. Primary biliary cholangitis (HCC) Snoring FH: No family history of skin cancer SH: works at [employer] PHYSICAL EXAM: Skin examination including head, face, ears, neck, chest, upper extremities, hands Skin findings: On face, neck, chest are numerous hyperpigmented patches, some with subtle central atrophy Scalp (~50% of total scalp) with intersecting hyper- and hypopigmented atrophic plaques ASSESSMENT/PLAN: Cutaneous lupus erythematosus Discoid lupus erythematosus Well controlled PIH and secondary atrophy on exam which is stable and improving -strict sun protection and avoidance -ophtho annual exam - next in 03/2023 -continue Plaquenil 200mg tablet twice daily Inform me immediately if flare Return in 6-12 months, sooner as needed The documentation for this note was completed by Lu Swasnon LPN acting as scribe for Eloise Montesinos MD. October 17, 2022 7:27 AM. I agree with the Chief Complaint, ROS, and Past Histories independently gathered by the clinical credit support specialist and the remaining scribed note accurately describes my personal service to and examination of the patient. Eloise Montesinos MD documented in this encounter [facility] 10-13-2022 Telephone encounter Note Notified [facility] 10-13-2022 Miscellaneous Notes Notified Please inform labs are stable. documented in this encounter [facility] 10-07-2022 Telephone encounter Note Please inform labs are stable. [facility] Work Phone: 10-02-2022 History of Present illness Narrative Clinical Research Study - Orthopaedic & Rheumatological [place] IRB# [id number] Title: Lupus Registry PI: Dr Pineda Vickeycinthia Schwartz was seen by Cristo De La Rosa and Dr. Boaz Pineda. Risks/Benefits, and alternatives discussed w/ Vickey Schwartz. Family was not present during consenting instruction. Cristo De La Rosa discussed participation in this study w/ Vickey Schwartz. Explained follow-up requirements. Reviewed consent form dated 04/03/2019, version 3.6 w/ Vickey Schwartz. Vickey Schwartz Agreed to participate in this study. Copy of completed consent form given to patient. Vickey Schwartz asked appropriate questions and answers provided. Vickey Schwartz verbalized understanding of consent form. Consent obtained October 02, 2022 at 2:25pm. Labs drawn and questionnaires taken home to be mailed back. Cristo De La Rosa Research Coordinator - Rheumatic and Immunologic Diseases Pager: [phone] documented in this encounter [facility] 10-02-2022 History of Present illness Narrative Images from the original note were not included. 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 She has been previously seen by Dr. Padgett 09/01/2019. Background history: 06/18/[address] Luque. She states she had been having joint pain in April-June 2017, but she did not have any skin rashes over the face at that time. The joint pain was located in the knees and elbows bilaterally, and went away after 2 months. Did not notice any red hot or swollen joints at that time. No morning stiffness at that time, and pain did not change much over the course of the day. She did have some skin rash (red at that time) over the forearms and trunks. Her rash then spread to the face after her 06/18/17 rheumatology appointment, and she was referred to derm. 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 She was also started on plaquenil on 03/01/18 On 05/13/18, Dr. Montesinos (derm) noted increased hair loss over the scalp, and had been experiencing increased photosensitivity. She is getting creams and lotions for her skin rash, which has been helpful. She does note increased stains of hyperpigmentation over areas where the prior rash had occurred. Patient notes that it has been years since she has been more sensitive to sunlight. She states in the past she may get hives from being in the sun. Her last visit was 11/2021 She has been diligent about sun protection, still taking HCQ 2 tablets/daily. She has not had any rashes this summer. She denies nay shortness of breath, wheezing or SETHI. She has been spending a lot of time fishing this summer. Answers submitted by the patient for this visit: Review of Systems Rheumatology (Submitted on 09/25/2022) Fever : No Recent Unintentional Weight Change: No Eye Pain: No Eye Redness: No Vision Disturbance: No Eye Dryness: No Nose Bleeds: No Sores in your Mouth: No Trouble Swallowing: No Dry Mouth: Yes Chest Pain: No Leg Swelling: No A Cough: Yes Blood when you Cough: No Shortness of Breath: No Pain with Breathing: No Heartburn: No Abdominal Pain: No Diarrhea: No Black Tarry Stools: No Blood in Urine: No Pain or Burning with Urination: No Joint Pain or Stiffness: No Muscle Weakness: No Muscle Aches: No Joint Swelling: No Morning Stiffness in Joints: No A Rash: No Skin Color Changes: No Hair Loss: No Nail Changes: No Headaches: No Numbness: No Memory Loss: No Swollen Glands: No PMHx: PAST MEDICAL HISTORY Diagnosis Date Hemorrhage of rectum and anus HYPERLIPIDEMIA MIXED 07/10/2005 Lung nodule 06/13/2016 June 25, 2017 subcentimeter lung nodules and interstitial lung disease also stable from 2017: check CT in 1 year. Primary biliary cholangitis (HCC) Snoring PSHx: PAST SURGICAL HISTORY Procedure Laterality Date COLONOSCOPY FLX DX W/COLLJ SPEC WHEN PFRMD 06/29/2016 HAD VASOVAGAL RESPONSE DURING PROCEDURE SYST BP 60'S HR 40'S-GIVEN ATROPINE CORRJ HALLUX VALGUS W/SESMDC W/DIST METAR OSTEOT 1986 DIAGNOSTIC ARTHROSCOPY SHOULDER +- SYNOVIAL BX Left 04/03/2018 Left shoulder arthroscopic subacromial decompression, rotator cuff repair, and biceps tenotomy ESOPHAGOGASTRODUODENOSCOPY TRANSORAL DIAGNOSTIC 11/11/2018 EGD ESOPHAGOGASTRODUODENOSCOPY TRANSORAL DIAGNOSTIC 11/22/2020 repeat in 2 years HYSTEROSCOPY 06/21/2017 D&C SIGMOIDOSCOPY ?[address]: [address] (PROTONIX) 40 mg tablet TAKE 1 TABLET DAILY ursodiol (ACTIGALL) 300 mg capsule Take 1 capsule by mouth three times daily. hydrOXYchloroQUINE (PLAQUENIL) 200 mg tablet TAKE 1 TABLET TWICE A DAY Cholecalciferol, Vitamin D3, (VITAMIN D) 25 mcg (1,000 unit) cap Take 2 capsules by mouth once daily. clotrimazole-betamethasone (LOTRISONE) lotion Betamethasone / Clotrimazole Clotrimazole/Betamethasone Dip [Clotrimazole-Betamethasone Lot] 30 ML TP NEEDED PRN For SKIN June 14, 2017 Active 06-14-2017 [facility] ([id number]) tacrolimus (PROTOPIC) 0.1 % ointment Apply twice daily to affected areas on face Clobetasol Propionate (TEMOVATE) 0.05 % external solution Apply to affected areas on the scalp twice a day. Dispense 100ml as 30 day supply. biotin 5,000 mcg ODT Take by mouth once daily. Calcium-Cholecalciferol, D3, 500 mg-10 mcg (400 unit) per tablet Take 1 tablet by mouth once daily. triamcinolone acetonide (KENALOG) 0.1 % cream Apply to rash on body twice a day M-F, take weekends off ALLERGIES: ALLERGIES Allergen Reactions Adhesive Tape (Sammi* Itching Itching and redness OBJECTIVE: Physical Examination: Vitals: BP 123/56 Pulse 89 Wt 90.4 kg (199 lb 3.2 oz) BMI 33.66 kg/m General: Looks well, NAD, A & Ox3. HEENT: No facial rash. + alopecia on crown of head. Neck: No LAD. CVS: RRR, nl S1/S2, no R/M/G, Resp: right middle lobe inspiratory fine crackles appreciated. Ext: No edema. Neuro: Gait Normal. Skin: No rash. No ulcers. Musculoskeletal: Shoulders: No swelling, no tenderness, good ROM Elbows: No swelling, no tenderness, no flexion contractures, no nodules, good ROM Wrists: No swelling, no tenderness, no limitation in flexion and extension Hands: No evidence of synovitis. Able to make full fist bilaterally Knees: No effusion, no tenderness, good ROM IMPRESSIONS/RECOMMENDATIONS: SLE, doing well today 2018 ACR/EULAR classification criteria: +SHADI 1:320 speckled, with an equivocal range dsDNA with no other laboratory features of systemic lupus. Clinically she has had a biopsy consistent with discoid lupus and stable alopecia and mild ILD. CT scan from 10/2018 with reticulation within the periphery of the lungs and lower lobes, bilaterally, consistent with interstitial disease.PFTs were normal as of 06/2022. She will continue HCQ 400 mg daily, along with topical treatments per Dermatology. SLE activity labs today ordered for her today with [facility] enrollment. Health Maintenance HCQ: Exam scanned into system from 03/21/2022 Vaccinations: up to date with COVID vaccines and bivalent booster. Yearly influenza given 11/2021. Prevnar 20 given 09/2021 RTC 9 months. Boaz Pineda D.O. Rheumatology Staff documented in this encounter [facility] 09-25-2022 History of Present illness Narrative Radiology Service Progress Note PATIENT NAME: Vickey Schwartz DATE OF SERVICE: September 25, 2022 TIME: 6:20 PM PATIENT IDENTITY VERIFICATION COMPLETED USING TWO (2) IDENTIFIERS: Name and Date of confirmed by patient verbally. FALL SCREENING: Has the patient had 2 falls in the last year or 1 fall with injury or currently using an Ambulatory Assistive Device (Walker, Cane, Wheelchair, Crutches, etc.)? No PATIENT GENDER DATA: Female. status: : No status: NO. PATIENT RELEVANT IMPLANT DATA REVIEWED: Not Applicable RADIOLOGY DEPARTMENT: General X-ray: Exam(s) Completed: Lower Extremity X-Ray(s): Knee, AP / Lat / Tunne / Merchant Right and Wt. Bearing PERIPHERAL IV DATA: Not applicable SIGNED BY: RT Zonia(R) September 25, 2022 6:20 PM documented in this encounter [facility] 06-26-2022 History of Present illness Narrative Radiology Service Progress Note PATIENT NAME: Vickey Schwartz DATE OF SERVICE: June 26, 2022 TIME: 10:02 AM PATIENT IDENTITY VERIFICATION COMPLETED USING TWO (2) IDENTIFIERS: Name and Date of confirmed by patient verbally. FALL SCREENING: Has the patient had 2 falls in the last year or 1 fall with injury or currently using an Ambulatory Assistive Device (Walker, Cane, Wheelchair, Crutches, etc.)? No PATIENT GENDER DATA: Female. status: : No status: NO. PATIENT RELEVANT IMPLANT DATA REVIEWED: Not Applicable RADIOLOGY DEPARTMENT: Bone Density PERIPHERAL IV DATA: Not applicable SIGNED BY: RT Kalia(R) June 26, 2022 10:02 AM documented in this encounter [facility] 05-16-2022 Miscellaneous Notes Done. documented in this encounter [facility] 05-05-2022 Miscellaneous Notes Done. Last result from 04/30/22 Inform the blood test looked great. Please continue with treatment. Patient phones requesting refills as follows: Requested Prescriptions Pending Prescriptions Disp Refills ursodiol (ACTIGALL) 300 mg capsule 270 capsule 3 Sig: Take 1 capsule by mouth three times daily. Please review and advise. Anna Matthew RN documented in this encounter [facility] 05-01-2022 Miscellaneous Notes New RX Sent 04/25/2022 Requested Prescriptions Refused Prescriptions Disp Refills hydrOXYchloroQUINE (PLAQUENIL) 200 mg tablet 180 tablet 1 Sig: Take 1 tablet by mouth twice daily. Please review and advise. Nataly Garcia RN documented in this encounter [facility] 04-25-2022 Miscellaneous Notes LV 10/2021. F/u 10/2022. Patient requesting refills as follows: Requested Prescriptions Pending Prescriptions Disp Refills hydrOXYchloroQUINE (PLAQUENIL) 200 mg tablet [Pharmacy Med Name: HYDROXYCHLOR TAB 200MG] 180 tablet 1 Sig: TAKE 1 TABLET TWICE A DAY Please review and advise. Sindhu An MA documented in this encounter [facility] 03-22-2022 Miscellaneous Notes Received fax of Eye Exam , no toxicity evident - patient on Plaquenil , results sent to scan documented in this encounter [facility] 03-01-2022 Instructions Raisa Latham MD - 03/01/2022 9:15 AM EST BONE MINERAL DENSITY PATIENT INSTRUCTIONS === Bone mineral density testing measures the amount of calcium in certain parts of your bones. This information determines how strong your bones are. The test is used to detect osteoporosis, a disease in which the bone's mineral content and density are low, increasing a person's risk of fractures. The lumbar spine (lower back) and the hip are the skeletal sites usually examined. For the test, remember that: 1. You cannot take this test if you are . 2. Eat a normal diet on the day of the test. 3. Take your medications as you normally would. 4. DO NOT take calcium supplements (such as Tums) for 24 hours before the test. 5. On the day of the test, leave valuables (jewelry or credit cards) at home. 6. The test should be performed prior to oral, rectal or IV contrast studies, or at least 7 days after any of these studies. For the test, you may be asked to wear a hospital gown. You will lie on your back, on a padded table, in a comfortable position. Generally, you can resume your usual activities immediately. documented in this encounter [facility] 03-01-2022 History of Present illness Narrative Vickey is a 61 year old who presents for an annual gynecologic exam without complaints. Postmenopausal: yes HRT use: No. 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 Primary biliary cholangitis (HCC) Snoring PAST SURGICAL HISTORY Procedure Laterality Date COLONOSCOPY FLX DX W/COLLJ SPEC WHEN PFRMD 06/29/2016 HAD VASOVAGAL RESPONSE DURING PROCEDURE SYST BP 60'S HR 40'S-GIVEN ATROPINE CORRJ HALLUX VALGUS W/SESMDC W/DIST METAR OSTEOT 1986 DIAGNOSTIC ARTHROSCOPY SHOULDER +- SYNOVIAL BX Left 04/03/2018 Left shoulder arthroscopic subacromial decompression, rotator cuff repair, and biceps tenotomy ESOPHAGOGASTRODUODENOSCOPY TRANSORAL DIAGNOSTIC 11/11/2018 EGD ESOPHAGOGASTRODUODENOSCOPY TRANSORAL DIAGNOSTIC 11/22/2020 repeat in 2 years HYSTEROSCOPY 06/21/2017 D&C SIGMOIDOSCOPY ?2000 FAMILY HISTORY Problem Relation Age of Onset Heart Father age 60's Diabetes Mother Hypertension Mother Stroke Mother Colon Cancer Paternal Grandmother Colon Cancer Paternal Grandfather None Brother None Brother SOCIAL HISTORY Social History Tobacco Use Smoking status: Former Packs/day: 0.15 Types: Cigarettes Quit date: 01/17/2016 Years since quittin.1 Smokeless tobacco: Never Vaping Use Vaping Use: Never used Substance Use Topics Alcohol use: No Drug use: No REVIEW OF SYSTEMS Abdomen: No abdominal pain, nausea, vomiting, diarrhea, or constipation. No bloating, early satiety, indigestion, or increased flatulence. Bladder: No dysuria, gross hematuria, urinary frequency, urinary urgency, or incontinence Breast: No breast lumps, nipple d/c, overlying skin changes, redness or skin retraction Allergies and current medication updated:Yes EXAM: BP 110/66 Ht 5' 4.5 (1.64m) Wt 202 lb (91.6kg) BMI 34.15 kg/(m^2). GENERAL: pleasant, female in no apparent distress HEENT: Normocephalic, atraumatic, mucus membranes moist, and no lesions NECK: Supple, full range of motion, no adenopathy, and thyroid normal DERMATOLOGY: Normal, without lesions, non-icteric, and non-hirsute BREAST: soft, non-tender, symmetric, no dominant mass, normal nipple-areolar complex, no lymphadenopathy, and no nipple discharge CHEST: Normal inspiratory effort ABDOMEN: soft, non-tender, and no masses PELVIC: external genitalia normal, normal Bartholin's glands, urethra, Vining's glands, no vulvar lesions, no cervical lesions, good vaginal support, physiologic discharge present, normal appearing perineal body and perianal region, tight intrioutus w/ flattened atropihc epithelium BIMANUAL: uterus normal size, shape and consistency, no adnexal masses, and non-tender RECTOVAGINAL: deferred. NEURO: alert and oriented x3,exam grossly non-focal EXTREMITIES: normal ASSESSMENT/PLAN: 1) Health maintenance: Pap done with HPV. Mammogram up to date Colon cancer screening: colonoscopy ordered BMD ordered 2) Follow up one year or sooner as needed Raisa Latham MD documented in this encounter [facility] 01-30-2022 Miscellaneous Notes Addended by: ALEXA GOVEA on: 01/30/2022 03:48 PM Modules accepted: Orders documented in this encounter [facility] 01-30-2022 Instructions Alexa Govea APRN.CNP - 01/30/2022 3:30 PM EST covid and influenza test ordered You will be notified in 12-24 hours, results available on [facility] Home isolation until results are back Rest, increase water intake Motrin as needed for fever or pain. Salt water gargles, chloraseptic spray or lozenges as needed for sore throat. Warm beverages, honey. Nasal saline spray as needed Cool mist humidifier at night Ibuprofen 600 mg (3-200mg tablets) every 6 hours -Mucinex (generic is fine) Guaifenesin 1200 mg twice daily to help with cough and to thin out mucus * Seek medical care immediately, call 911, go to ER if you have chest pain, difficulty breathing, shortness of breath, inability to swallow. FACT SHEET FOR PATIENTS, PARENTS, AND CAREGIVERS EMERGENCY USE AUTHORIZATION (EUA) OF PAXLOVID FOR CORONAVIRUS DISEASE 2019 (COVID-19) You are being given this Fact Sheet because your healthcare provider believes it is necessary to provide you with PAXLOVID for the treatment of ytjw-zc-dplqtsal coronavirus disease (COVID-19) caused by the SARS-CoV-2 virus. This Fact Sheet contains information to help you understand the risks and benefits of taking the PAXLOVID you have received or may receive. The U.S. Food and Drug Administration (FDA) has issued an Emergency Use Authorization (EUA) to make PAXLOVID available during the COVID-19 pandemic (for more details about an EUA please see What is an Emergency Use Authorization? at the end of this document). PAXLOVID is not an FDA-approved medicine in the [place]. Read this Fact Sheet for information about PAXLOVID. Talk to your healthcare provider about your options or if you have any questions. It is your choice to take PAXLOVID. What is COVID-19? COVID-19 is caused by a virus called a coronavirus. You can get COVID-19 through close contact with another person who has the virus. COVID-19 illnesses have ranged from very yzsp-hk-xihipy, including illness resulting in . While information so far suggests that most COVID-19 illness is mild, serious illness can happen and may cause some of your other medical conditions to become worse. Older people and people of all ages with severe, long lasting (chronic) medical conditions like heart disease, lung disease, and diabetes, for example seem to be at higher risk of being hospitalized for COVID-19. What is PAXLOVID? PAXLOVID is an investigational medicine used to treat sfup-dy-lrkodtpf COVID-19 in adults and children [12 years of age and older weighing at least 88 pounds (40 kg)] with positive results of direct SARS-CoV-2 viral testing, and who are at high risk for progression to severe COVID-19, including hospitalization or . PAXLOVID is investigational because it is still being studied. There is limited information about the safety and effectiveness of using PAXLOVID to treat people with xjub-yd-csieosme COVID-19. The FDA has authorized the emergency use of PAXLOVID for the treatment of fycn-hf-atffsxtf COVID-19 in adults and children [12 years of age and older weighing at least 88 pounds (40 kg)] with a positive test for the virus that causes COVID-19, and who are at high risk for progression to severe COVID-19, including hospitalization or , under an EUA. 1 Revised: 22 April 2021 What should I tell my healthcare provider before I take PAXLOVID? Tell your healthcare provider if you: Have any allergies Have liver or kidney disease Are or plan to become Are a child Have any serious illnesses Tell your healthcare provider about all the medicines you take, including prescription and qnit-ewf-oikuhiu medicines, vitamins, and herbal supplements. Some medicines may interact with PAXLOVID and may cause serious side effects. Keep a list of your medicines to show your healthcare provider and pharmacist when you get a new medicine. You can ask your healthcare provider or pharmacist for a list of medicines that interact with PAXLOVID. Do not start taking a new medicine without telling your healthcare provider. Your healthcare provider can tell you if it is safe to take PAXLOVID with other medicines. Tell your healthcare provider if you are taking combined hormonal contraceptive. PAXLOVID may affect how your control pills work. Females who are able to become should use another effective alternative form of contraception or an additional barrier method of contraception. Talk to your healthcare provider if you have any questions about contraceptive methods that might be right for you. How do I take PAXLOVID? PAXLOVID consists of 2 medicines: nirmatrelvir and ritonavir. Take 2 pink tablets of nirmatrelvir with 1 white tablet of ritonavir by mouth 2 times each day (in the morning and in the evening) for 5 days. For each dose, take all 3 tablets at the same time. If you have kidney disease, talk to your healthcare provider. You may need a different dose. Swallow the tablets whole. Do not chew, break, or crush the tablets. Take PAXLOVID with or without food. Do not stop taking PAXLOVID without talking to your healthcare provider, even if you feel better. If you miss a dose of PAXLOVID within 8 hours of the time it is usually taken, take it as soon as you remember. If you miss a dose by more than 8 hours, skip the missed dose and take the next dose at your regular time. Do not take 2 doses of PAXLOVID at the same time. If you take too much PAXLOVID, call your healthcare provider or go to the nearest hospital emergency room right away. If you are taking a ritonavir-or cobicistat-containing medicine to treat hepatitis C or Human Immunodeficiency Virus (HIV), you should continue to take your medicine as prescribed by your healthcare provider. Talk to your healthcare provider if you do not feel better or if you feel worse after 5 days. Who should generally not take PAXLOVID? Do not take PAXLOVID if: You are allergic to nirmatrelvir, ritonavir, or any of the ingredients in PAXLOVID You are taking any of the following medicines: Alfuzosin Pethidine, propoxyphene Ranolazine Amiodarone, dronedarone, flecainide, propafenone, quinidine Colchicine Lurasidone, pimozide, clozapine Dihydroergotamine, ergotamine, methylergonovine Lovastatin, simvastatin Sildenafil (Revatio ) for pulmonary arterial hypertension (PAH) Triazolam, oral midazolam Apalutamide Carbamazepine, phenobarbital, phenytoin Rifampin [place] s Wort (hypericum perforatum) Taking PAXLOVID with these medicines may cause serious or life-threatening side effects or affect how PAXLOVID works. These are not the only medicines that may cause serious side effects if taken with PAXLOVID. PAXLOVID may increase or decrease the levels of multiple other medicines. It is very important to tell your healthcare provider about all of the medicines you are taking because additional laboratory tests or changes in the dose of your other medicines may be necessary while you are taking PAXLOVID. Your healthcare provider may also tell you about specific symptoms to watch out for that may indicate that you need to stop or decrease the dose of some of your other medicines. What are the important possible side effects of PAXLOVID? Possible side effects of PAXLOVID are: Allergic Reactions. Allergic reactions can happen in people taking PAXLOVID, even after only 1 dose. Stop taking PAXLOVID and call your healthcare provider right away if you get any of the following symptoms of an allergic reaction: hives trouble swallowing or breathing swelling of the mouth, lips, or face throat tightness hoarseness skin rash Liver Problems. Tell your healthcare provider right away if you have any of these signs and symptoms of liver problems: loss of appetite, yellowing of your skin and the whites of eyes (jaundice), dark-colored urine, pale colored stools and itchy skin, stomach area (abdominal) pain. Resistance to HIV Medicines. If you have untreated HIV infection, PAXLOVID may lead to some HIV medicines not working as well in the future. Other possible side effects include: altered sense of taste diarrhea high blood pressure muscle aches These are not all the possible side effects of PAXLOVID. Not many people have taken PAXLOVID. Serious and unexpected side effects may happen. PAXLOVID is still being studied, so it is possible that all of the risks are not known at this time. What other treatment choices are there? Veklury (remdesivir) is FDA-approved for the treatment of qiit-su-rqscssga COVID-19 in certain adults and children. Talk with your doctor to see if Veklury is appropriate for you. Like PAXLOVID, FDA may also allow for the emergency use of other medicines to treat people with COVID-19. Go to https://www.fda.gov/emergency-prepared [place]/loo-jzgqa-nzoryouzvk- sfo-upraez-jgjntorjf/yggamebae-mub-rdl horization for information on the emergency use of other medicines that are authorized by FDA to treat people with COVID-19. Your healthcare provider may talk with you about clinical trials for which you may be eligible. It is your choice to be treated or not to be treated with PAXLOVID. Should you decide not to receive it or for your child not to receive it, it will not change your standard medical care. What if I am or ? There is director of casino treating women or mothers with PAXLOVID. For a mother and unborn baby, the benefit of taking PAXLOVID may be greater than the risk from the treatment. If you are , discuss your options and specific situation with your healthcare provider. It is recommended that you use effective barrier contraception or do not have sexual activity while taking PAXLOVID. If you are , discuss your options and specific situation with your healthcare provider. How do I report side effects with PAXLOVID? Contact your healthcare provider if you have any side effects that bother you or do not go away. Report side effects to FDA MedWatch at www.fda.gov/medwatch or call 4-907-HJQ5647 or you can report side effects to [facility]. at the contact information provided below. Website Fax number Telephone number [place] How should I store PAXLOVID? Store PAXLOVID tablets at room temperature, between 68?F to 77?F (20?C to 25?C). How can I learn more about COVID-19? Ask your healthcare provider. Visit https://www.cdc.gov/COVID19. Contact your local or state public health department. What is an Emergency Use Authorization (EUA)? The [place] FDA has made PAXLOVID available under an emergency access mechanism called an Emergency Use Authorization (EUA). The EUA is supported by a [place] of Health and Human Service ([facility]) declaration that circumstances exist to justify the emergency use of drugs and biological products during the COVID-19 pandemic. PAXLOVID for the treatment of cmiw-ug-txshtbhz COVID-19 in adults and children [12 years of age and older weighing at least 88 pounds (40 kg)] with positive results of direct SARS-CoV-2 viral testing, and who are at high risk for progression to severe COVID-19, including hospitalization or , has not undergone the same type of review as an FDA-approved product. In issuing an EUA under the COVID-19 public health emergency, the FDA has determined, among other things, that based on the total amount of scientific evidence available including data from adequate and well-controlled clinical trials, if available, it is reasonable to believe that the product may be effective for diagnosing, treating, or preventing COVID-19, or a serious or life-threatening disease or condition caused by COVID-19; that the known and potential benefits of the product, when used to diagnose, treat, or prevent such disease or condition, outweigh the known and potential risks of such product; and that there are no adequate, approved, and available alternatives. All of these criteria must be met to allow for the product to be used in the treatment of patients during the COVID-19 pandemic. The EUA for PAXLOVID is in effect for the duration of the COVID-19 declaration justifying emergency use of this product, unless terminated or revoked (after which the products may no longer be used under the EUA). Additional Information For general questions, visit the website or call the telephone number provided below. Website Telephone number www.HQWTQ45pltaLw.com (5-218-Y49-HMPL) You can also go to www.[facility] [employer].Whelse or call for more information. Pfizer Distributed by [address] [facility] [place] [address] [id number] Revised: 22 April 2021 documented in this encounter [facility] 01-30-2022 History of Present illness Narrative Subjective The history is provided by the patient. No director weights and measures was used. HPI Vickey Schwartz is a 61 year old female who presents today for CC of wanting covid test for comfirmation. She also desires paxlovid if positive. She has used ibuprofen. States symptoms are mild. She is fully vaccinated and received all the boosters BP 110/64 Pulse 96 Temp 37.5 C (99.5 F) Resp 16 Wt 92.1 kg (203 lb) SpO2 98% BMI 34.31 kg/m Social History Tobacco Use Smoking status: Former Packs/day: 0.15 Types: Cigarettes Quit date: 01/17/2016 Years since quittin.0 Smokeless tobacco: Never Vaping Use Vaping Use: Never used Substance Use Topics Alcohol use: No Drug use: No PAST MEDICAL HISTORY Diagnosis Date Hemorrhage of rectum and anus HYPERLIPIDEMIA MIXED 07/10/2005 Lung nodule 06/13/2016 June 25, 2017 subcentimeter lung nodules and interstitial lung disease also stable from 2017: check CT in 1 year. Primary biliary cholangitis (HCC) Snoring I have confirmed and edited as necessary, the [facility] Review of Systems Constitutional: Positive for malaise/fatigue. Negative for chills and fever. HENT: Positive for congestion. Negative for ear pain, sinus pain and sore throat. Respiratory: Positive for cough. Negative for sputum production, shortness of breath and wheezing. Cardiovascular: Negative for chest pain. Gastrointestinal: Negative for abdominal pain, diarrhea, nausea and vomiting. Musculoskeletal: Positive for myalgias. Neurological: Positive for headaches. Objective Physical Exam Vitals and nursing note reviewed. HENT: Head: Normocephalic and atraumatic. Right Ear: Tympanic membrane, ear canal and external ear normal. Left Ear: Tympanic membrane, ear canal and external ear normal. Nose: Mucosal edema, congestion and rhinorrhea present. Right Sinus: No maxillary sinus tenderness or frontal sinus tenderness. Left Sinus: No maxillary sinus tenderness or frontal sinus tenderness. Mouth/Throat: Pharynx: Uvula midline. No oropharyngeal exudate or posterior oropharyngeal erythema. Cardiovascular: Rate and Rhythm: Normal rate and regular rhythm. Heart sounds: Normal heart sounds. Pulmonary: Effort: Pulmonary effort is normal. Breath sounds: Normal breath sounds. Lymphadenopathy: Head: Right side of head: No submental, submandibular or tonsillar adenopathy. Left side of head: No submental, submandibular or tonsillar adenopathy. Cervical: No cervical adenopathy. Skin: General: Skin is warm and dry. Neurological: Mental Status: She is alert. Psychiatric: Mood and Affect: Affect normal. Nirmatrelvir/Ritonavir (Paxlovid) Eligibility and Patient Discussion [facility] Formulary Restriction Criteria: Adult outpatients 18 years and older with ALL of the following: [x] Patient has positive SARS-COV-2 viral test (PCR or antigen test) during current illness [x] Patient has symptoms for 5 days or less [x] Not requiring hospitalization at any time for management of COVID-19 [x] Not requiring supplemental oxygen or a change in baseline supplemental oxygen [x] Not utilized for pre-exposure or post-exposure prophylaxis for prevention of COVID-19 [x] Patient does not have severe renal impairment (eGFR < 30 mL/min) or severe hepatic impairment (Child-Enciso Class C) [x] Meeting at least one of the criteria for high risk of progression to severe COVID-19: [] Age over 65 years [] Cancer [] Chronic kidney disease [] Chronic liver disease [] Chronic lung diseases, including cystic fibrosis [] Dementia or other neurological conditions [] Diabetes (type 1 or type 2) [] Disabilities, including Down syndrome and neurodevelopmental disorders [] Heart conditions [] HIV infection [] Immunocompromised state [] Mental health conditions [] Medical related technological dependence (tracheostomy, gastrostomy, or positive pressure ventilation (not related to COVID) [x] Overweight and obesity (BMI greater or equal to 25 for adults) [] Physical inactivity [] [] Sickle cell disease or thalassemia [] Smoking, current or former [] Solid organ or blood stem cell transplant [] Stroke or cerebrovascular disease [] Substance use disorders [] Tuberculosis [] People from racial and ethnic minority groups Criteria above are met: Yes Date of Positive Test:01.30.2022 Date of Symptom Onset: 01.29.2022 Patient received COVID vaccine: Yes Drug-Drug interactions reviewed: Yes. No drug interactions were identified. I have discussed the use of the investigational therapeutic, nirmatrelvir/ritonavir, for the treatment of mild to moderate COVID-19 and its use under Emergency Use Authorization with the patient. The patient was informed that nirmatrelvir/ritonavir is not an FDA approved drug and that it is authorized for use under this Emergency Use Authorization. The patient was also informed of the significant known benefits and potential risks of nirmatrelvir/ritonavir, and the extent to which such potential risks and benefits are unknown. The patient was informed that there is mandatory reporting of all medication errors and serious adverse events potentially related to nirmatrelvir/ritonavir treatment within 7 calendar days from the onset of the event and that events up to 28 days after completion of therapy need to be reported. The discussion included alternatives to receiving nirmatrelvir/ritonavir, including clinical trials, and potential the risks and benefits of those alternatives. The patient was provided electronically with the Fact Sheet for Patients, Parents and Caregivers. The patient was also instructed that in addition to the treatment with nirmatrelvir/ritonavir, he/she should continue to self-isolate and use infection control measures (e.g., wear mask, isolate, social distance, avoid sharing personal items, clean and disinfect high touch surfaces, and frequent handwashing) according to CDC guidelines. The patient stated understanding and gave verbal consent to proceeding with nirmatrelvir/ritonavir treatment. ASSESSMENT/PLAN: 1. COVID - ICD9: 079.89, ICD10: U07.1 Comfort measures discussed Prescription given for paxlovid Will start tomorrow with positive PCR, does not want to start with antigen test * Seek medical care immediately, call 911, go to ER if you have chest pain, difficulty breathing, shortness of breath, inability to swallow. - NIRMATRELVIR 300 MG (150 MG X2)-RITONAVIR 100 MG TABLET,DOSE PACK(EUA) Alexa Govea APRN.CNP January 30, 2022 3:31 PM documented in this encounter [facility] 12-30-2021 History of Present illness Narrative Consultation requested by Boaz Pineda [address], [phone] [facility] [id number] for an opinion regarding ILD. My final recommendations will be communicated back to the requesting physician by way of shared Medical record or letter to requesting physician via US mail. Thank you for requesting the consult on Ms. Vickey Schwartz. I saw her in my interstitial lung disease clinic. Please find my evaluation below. CHIEF COMPLAINT: Patient presents with: New HISTORY OF PRESENT ILLNESS: Ms. Vickey Schwartz who presents today for ILD. Chest Ct with concern for ILD Diagnosed with SLE in 2017, under control with HcQ. Mainly skin manifestations No pulmonary symptoms, no dyspnea , no cough, no wheezing, no chest pain Some trouble wit 2-3 flight of steps Denies dry mouth, oral/nasal ulcers, gastroesophageal reflux, joint pain or swelling, muscle pain or weakness, change in skin texture, rash or skin lesions, photosensitivity, Raynaud phenomenon or digital ulcers. 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 REVIEW OF SYSTEMS - 10 system ROS done, negative unless mentioned in HPI PAST MEDICAL HISTORY Diagnosis Date Hemorrhage of rectum and anus HYPERLIPIDEMIA MIXED 07/10/2005 Lung nodule 06/13/2016 June 25, 2017 subcentimeter lung nodules and interstitial lung disease also stable from 2017: check CT in 1 year. Primary biliary cholangitis (HCC) Snoring PAST SURGICAL HISTORY Procedure Laterality Date COLONOSCOPY FLX DX W/COLLJ SPEC WHEN PFRMD 06/29/2016 HAD VASOVAGAL RESPONSE DURING PROCEDURE SYST BP 60'S HR 40'S-GIVEN ATROPINE CORRJ HALLUX VALGUS W/SESMDC W/DIST METAR OSTEOT 1985 DIAGNOSTIC ARTHROSCOPY SHOULDER +- SYNOVIAL BX Left 04/03/2018 Left shoulder arthroscopic subacromial decompression, rotator cuff repair, and biceps tenotomy ESOPHAGOGASTRODUODENOSCOPY TRANSORAL DIAGNOSTIC 11/11/2018 EGD ESOPHAGOGASTRODUODENOSCOPY TRANSORAL DIAGNOSTIC 11/22/2020 repeat in 2 years HYSTEROSCOPY 06/21/2017 D&C SIGMOIDOSCOPY ?2000 ALLERGIES ALLERGIES Allergen Reactions Adhesive Tape (Sammi* Itching Itching and redness MEDICATIONS Current Outpatient Medications Medication Sig hydrOXYchloroQUINE (PLAQUENIL) 200 mg tablet Take 1 tablet by mouth twice daily. nystatin (MYCOSTATIN) 100,000 unit/mL suspension RINSE AND SPIT DIRECTED FOUR TIMES DAILY ursodiol (ACTIGALL) 300 mg capsule Take 1 capsule by mouth three times daily. pantoprazole DR (PROTONIX) 40 mg tablet Take 1 tablet by mouth once daily. Cholecalciferol, Vitamin D3, (VITAMIN D) 25 mcg (1,000 unit) cap Take 2 capsules by mouth once daily. clotrimazole-betamethasone (LOTRISONE) lotion Betamethasone / Clotrimazole Clotrimazole/Betamethasone Dip [Clotrimazole-Betamethasone Lot] 30 ML TP NEEDED PRN For SKIN June 14, 2017 Active 06-14-2017 [facility] ([id number]) tacrolimus (PROTOPIC) 0.1 % ointment Apply twice daily to affected areas on face Clobetasol Propionate (TEMOVATE) 0.05 % external solution Apply to affected areas on the scalp twice a day. Dispense 100ml as 30 day supply. biotin 5,000 mcg ODT Take by mouth once daily. Calcium-Cholecalciferol, D3, 500 mg-10 mcg (400 unit) per tablet Take 1 tablet by mouth once daily. triamcinolone acetonide (KENALOG) 0.1 % cream Apply to rash on body twice a day M-, take weekends off No current facility-administered medications for this visit. PHYSICAL EXAMINATION BP 133/63 Pulse 75 Temp 36.4 C (97.6 F) (Temporal) Resp 16 Wt 89.8 kg (198 lb) SpO2 98% BMI 33.46 kg/m General: Well developed, well nourished ,in no apparent distress Head: Normal cephalic ENT: No sinus tenderness, Neck: Supple Chest: Normal vesicular breath sounds. No adventitial sounds heard. No respiratory distress or accessory muscle use Cardiac: Regular rate and rhythm Abdomen: Soft, non-tender, non-distended Extremities: No clubbing, cyanosis or edema Skin/hair: No rash or suspicious lesions. Neurologic: grossly normal DATA REVIEWED Labs: WBC (k/uL) Date Value 11/14/2021 7.41 RBC (m/uL) Date Value 11/14/2021 4.76 Hemoglobin (g/dL) Date Value 11/14/2021 14.6 Hematocrit (%) Date Value 11/14/2021 43.0 MCV (fL) Date Value 11/14/2021 90.3 MCH (pg) Date Value 11/14/2021 30.7 MCHC (g/dL) Date Value 11/14/2021 34.0 RDW-CV (%) Date Value 11/14/2021 12.3 Platelet Count (k/uL) Date Value 11/14/2021 206 MPV (fL) Date Value 11/14/2021 10.7 Neut% (%) Date Value 11/14/2021 59.1 Lymph% (%) Date Value 11/14/2021 29.7 [place]% (%) Date Value 11/14/2021 8.2 Eosin% (%) Date Value 10/25/2020 1.3 Baso% (%) Date Value 11/14/2021 0.9 Abs Neut (k/uL) Date Value 11/14/2021 4.38 Abs [place] (k/uL) Date Value 11/14/2021 0.61 Abs Eosin (k/uL) Date Value 11/14/2021 0.13 Abs Baso (k/uL) Date Value 11/14/2021 0.07 Glucose (mg/dL) Date Value 10/24/2021 86 BUN (mg/dL) Date Value 10/24/2021 14 Creatinine (mg/dL) Date Value 10/24/2021 0.91 Sodium (mmol/L) Date Value 10/24/2021 141 Potassium (mmol/L) Date Value 10/24/2021 4.3 Chloride (mmol/L) Date Value 10/24/2021 102 CO2 (mmol/L) Date Value 10/24/2021 28 Protein, Total (g/dL) Date Value 10/24/2021 8.2 (H) Albumin (g/dL) Date Value 10/24/2021 4.4 Calcium, Total (mg/dL) Date Value 10/24/2021 10.1 Alkaline Phosphatase (U/L) Date Value 10/24/2021 163 (H) Bilirubin, Total (mg/dL) Date Value 10/24/2021 0.3 AST (U/L) Date Value 10/24/2021 32 ALT (U/L) Date Value 10/24/2021 36 Pulmonary function tests: FEV1 2.39/103 FVC 3.72/125 FEV1/FVC 82 FEF 25-75 TLC 107 RV 117 DLCO 99 6MWD Lowest spo2 O2 needs Highest HR Imaging: Chest CT IMPRESSION: 1. CT findings of definite UIP imaging pattern, essentially stable to minimally progressed since 10/21/2018 and likely related to patient's history of SLE. 2. No new groundglass opacities or airspace consolidation. No suspicious pulmonary nodules. 3. Small nonobstructive RIGHT renal calculus. ASSESSMENT: # ILD- mild, Chest Ct with probable UIP pattern. Stable since 2019. Likely due to SLE. No symptoms, normal PFTs. We discussed possible progression over time. Hold off on Rx for now Repeat PFTs q6 months, CT q12 months #SLE- skin disease, on HcQ PLAN: No Rx for ILD for now Repeat PFTs q6 months to monitor for progression RTC on 6 months, she prefers VV Orders Placed This Encounter ADULT - LUNG DIFFUSION CAPACITY (DLCO) Standing Status: Future Standing Expiration Date: 01/29/2023 Order Specific Question: Should this patient be seen in a Pediatric Lab? Answer: No ADULT - SPIROMETRY WITH DILATOR IF OBSTRUCTED Standing Status: Future Standing Expiration Date: 01/29/2023 Scheduling Instructions: Please call [phone] to schedule, cancel, or change an appointment. Order Specific Question: Should this patient be seen in a Pediatric Lab? Answer: No Thank you again for allowing me to participate in the care of Vickey Schwartz along with you. Please do not hesitate to call me with any questions. Best Regards, Lindsey Hightower MD, [facility] Staff Physician Respiratory [place] CC: Boaz Pineda [id number], [phone] [facility] [address] I spent 45 minutes on this encounter which includes time spent on face to face encounter, counseling and coordinating care regarding interpretation of symptoms and tests and diagnostic and therapeutic options and charting on the day of the visit. This note was generated with voice recognition software and may contain errors, including spelling, grammar, syntax and misrecognition of what was dictated, that are not fully corrected. documented in this encounter [facility] 12-28-2021 History of Present illness Narrative PULM FUNCTION SMARTBLOCK: Provider: DO Rosalina Bella Tech: OTILIO Issa Spirometry w/BD: 1 DLCO: 1 LV - Box: 1 documented in this encounter [facility] 12-13-2021 Miscellaneous Notes Summary: New ILD Intake Interstitial Lung Disease Referral Intake Vickey Shcwartz [id number] December 13, 2021 3:38 PM Schedulers: --Please schedule patient with any ILD provider --Testing needed: 1) Kelly/dlco Consult information: Referred by: Dr. Boaz Pineda Office name/city: [place] Diagnosis: UIP CT chest: yes, internal date of last: 12/05/2021 where was this performed?: [facility] Biopsy(Surgical or transbronchial): No type: date: where was this performed?: Current or past treatment (for the ILD diagnosis): hydroxychloroquine Have you ever been told that you have scleroderma? No Have you been told by your physician that your lung disease is due to an occupational or work exposure? No Have you ever been deployed? No *Please remember to give the authorization for release of medical records to your doctor(s), and also obtain your CT(s) on a disc from the radiology department and hand carry this to your appointment. Julissa Dietz RN documented in this encounter [facility] 12-05-2021 History of Present illness Narrative Radiology Service Progress Note PATIENT NAME: Vickey Schwartz DATE OF SERVICE: December 05, 2021 TIME: 10:13 AM PATIENT IDENTITY VERIFICATION COMPLETED USING TWO (2) IDENTIFIERS: Name and Date of confirmed by patient verbally. FALL SCREENING: Has the patient had 2 falls in the last year or 1 fall with injury or currently using an Ambulatory Assistive Device (Walker, Cane, Wheelchair, Crutches, etc.)? No PATIENT GENDER DATA: Female. status: : No status: NO. PATIENT RELEVANT IMPLANT DATA REVIEWED: Not Applicable RADIOLOGY DEPARTMENT: CT; Exam(s) Completed: Chest PERIPHERAL IV DATA: Not applicable SIGNED BY: RT Lorie(R) December 05, 2021 10:13 AM documented in this encounter [facility] 11-28-2021 Instructions Ivis Chang PA-C - 11/28/2021 4:29 PM EDT For nasal drip/ congestin in the morning: OTC antihistamines such Benadryl (make cause drowsiness) or Zyrtec/ Clariten/ Delilah (non-drowsy) may help itching and may help rash fade. The medications may be drying. Flonase is a nasal steroid. It is generally well tolerated and does not absorb into your system to cause side effects such as oral of imtramuscular steroids. Use it as directed and continue it for 2-4 weeks. Make sure to tilt the bottle toward the expiration date on the label. It won;'t spray well if held the other direction. If you break out with a rash arouind the nose stop the medicine and call. HEALTH MAINTENANCE: Your Body mass index is 33.09 kg/m . (Target BMI: 19-25) Regular aerobic exercise, low fat diet, and periodic exams are recommended Living Will & Medical Power of [place] recommended Periodic Pap smear per risk profile. Mammogram recommended yearly. Colon cancer screening by age 50 & every 5-10 years. Calcium intake of 1200-1500mg elemental calcium per day and 1,000-2,000 IU of Vitamin D3/cholecalciferol daily. Bone mineral density (by age 65 or sooner if other risk factors for osteoporosis). IMMUNIZATIONS: TD at age 50 or every 10 years Pneumovax (between ages 50-65) Recommend consideration for Zostavax (shingles vaccine) in women age 60 and older. Yearly flu vaccine in the fall for those 50 and older LABS: Thyroid screening every 5 years after age 50 Fasting blood sugar every 3 years after age 45 Fasting cholesterol every five years after age 45 documented in this encounter [facility] 11-28-2021 History of Present illness Narrative 61 year old female with c/o here for annual check up Current concerns: Runny nose in morning, x 1 month. coughs up some clear phlegm. Rodrigo (obstructive sleep apnea) (primary encounter diagnosis) Nocturnal oxygen desaturation Has overnight study Fatigue, unspecified type Doing the tings she has to do and doing the things she wants to do. Fishing, etc. Cutaneous lupus erythematosus Current medications: Tacrolimus twice daily to affected areas Colbetasol 0.1% ointment twice a day to affected areas scalp Triamcinolone 0.1% twice a day rash M-F, weekends off prn Hydroxychloroquie 200mg twice a day Has been quiescent lately Doing well Flares if in sun too much Hyperlipidemia mixed No meds F had angioplasty, PVCs Observing low cholesterol high fiber diet doesn't eat much red meat, eggs. Some milk and cheese. Last 2 Lipids: Component Latest Ref Rng & Units 10/17/2017 11/20/2020 Cholesterol, Total <200 mg/dL 245 (H) 214 (H) Triglyceride <150 mg/dL 166 (H) 88 HDL Cholesterol >39 mg/dL 67 75 LDL Cholesterol <100 mg/dL 145 (H) 121 (H) Non HDL Cholesterol <130 mg/dL 178 (H) 139 (H) Fasting Time hrs 15 12 VLDL Cholesterol <30 mg/dL 33 (H) 18 TC:HDL Ratio <5.10 3.66 2.85 LDL:HDL Ratio <2.54 2.16 1.61 Milton's esophagus Current medications: Pantoprazole 40mg twice daily AC 11/22/2020 EGD: Dr. Valdes: LA Grade A reflux esophagitis: Biopsied. Normal stomach: Biopsied. Normal examined duodenum. Small hiatal hernia. FINAL DIAGNOSIS 1. Gastric antrum, biopsy (A) - Oxyntic mucosa with features suggestive of proton pump inhibitor effect. - No morphologic evidence of Helicobacter pylori organisms. 2. Distal esophagus, biopsy (B) - Focal intestinal metaplasia in a background of inflamed cardiofundic-type mucosa and reactive squamous mucosa, negative for dysplasia: consistent with Milton's esophagus in correct context 3 year surveillance HISTORIES FAMILY HISTORY Problem Relation Age of Onset Heart Father age 60's Diabetes Mother Hypertension Mother Stroke Mother Colon Cancer Paternal Grandmother Colon Cancer Paternal Grandfather None Brother None Brother PAST MEDICAL HISTORY Diagnosis Date Hemorrhage of rectum and anus HYPERLIPIDEMIA MIXED 07/10/2005 Lung nodule 06/13/2016 June 25, 2017 subcentimeter lung nodules and interstitial lung disease also stable from 2017: check CT in 1 year. Primary biliary cholangitis (HCC) Snoring PAST SURGICAL HISTORY Procedure Laterality Date COLONOSCOPY FLX DX W/COLLJ SPEC WHEN PFRMD 06/29/2016 HAD VASOVAGAL RESPONSE DURING PROCEDURE SYST BP 60'S HR 40'S-GIVEN ATROPINE CORRJ HALLUX VALGUS W/SESMDC W/DIST METAR OSTEOT 1985 DIAGNOSTIC ARTHROSCOPY SHOULDER +- SYNOVIAL BX Left 04/03/2018 Left shoulder arthroscopic subacromial decompression, rotator cuff repair, and biceps tenotomy ESOPHAGOGASTRODUODENOSCOPY TRANSORAL DIAGNOSTIC 11/11/2018 EGD ESOPHAGOGASTRODUODENOSCOPY TRANSORAL DIAGNOSTIC 11/22/2020 repeat in 2 years HYSTEROSCOPY 06/21/2017 D&C SIGMOIDOSCOPY ?2000 Social History Tobacco Use Smoking status: Former Packs/day: 0.15 Types: Cigarettes Quit date: 01/17/2016 Years since quittin.8 Smokeless tobacco: Never Vaping Use Vaping Use: Never used Substance Use Topics Alcohol use: No Drug use: No ACTIVE PROBLEM LIST HYPERLIPIDEMIA MIXED Obesity Eczematous Dermatitis Lung Nodule Thrombocytopenia (Hcc) Melanosis Positive Shadi (Antinuclear Antibody) Esr Raised Cutaneous Lupus Erythematosus 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 180 tablet 1 nystatin (MYCOSTATIN) 100,000 unit/mL suspension RINSE AND SPIT DIRECTED FOUR TIMES DAILY ursodiol (ACTIGALL) 300 mg capsule Take 1 capsule by mouth three times daily. [address] (PROTONIX) 40 mg tablet Take 1 tablet by mouth once daily. 90 tablet 3 amoxicillin (POLYMOX, AMOXIL) 500 mg capsule TAKE 2 CAPSULES BY MOUTH AT ONCE, Then TAKE 1 CAPSULE BY MOUTH EVERY 8 HOURS Cholecalciferol, Vitamin D3, (VITAMIN D) 25 mcg (1,000 unit) cap Take 2 capsules by mouth once daily. clotrimazole-betamethasone (LOTRISONE) lotion Betamethasone / Clotrimazole Clotrimazole/Betamethasone Dip [Clotrimazole-Betamethasone Lot] 30 ML TP NEEDED PRN For SKIN June 14, 2017 Active 06-14-2017 [facility] ([id number]) tacrolimus (PROTOPIC) 0.1 % ointment Apply twice daily to affected areas on face 30 g 3 Clobetasol Propionate (TEMOVATE) 0.05 % external solution Apply to affected areas on the scalp twice a day. Dispense 100ml as 30 day supply. 100 mL 3 biotin 5,000 mcg ODT Take by mouth once daily. Calcium-Cholecalciferol, D3, 500 mg-10 mcg (400 unit) per tablet Take 1 tablet by mouth once daily. triamcinolone acetonide (KENALOG) 0.1 % cream Apply to rash on body twice a day M-, take weekends off 454 g 0 No current facility-administered medications for this visit. DEPRESSION ASSESSMENT Never done PAP TESTING due on 12/27/2021 HPV TESTING due on 12/27/2021 REVIEW OF SYMPTOMS: General: denies fatigue, unusual weight loss or gain, fevers, chills. Energy Level: not too bad. Exercise work. Sleep: hours: 6-8h, feels pretty decent on waking Diet: trying to eat healthier: fruits and veggies. Tobacco use: quit 6 years. Caffeine use: 1 cup. ETOH use: none. Marijuana use: used to but not now . Illicit drug use: none. Eyes: denies change in vision, glaucoma, cataracts. bifocalsglasses/contacts, astigmatism. Last eye exam: 1 year. EENT: bilateral hearing aides since childhood. denies recurrent sinus infection, unusual nasal drainage, hoarsemess, sore throat, or recurrent sore in mouth or tongue. Cardiovascular: denies chest pain , SOB, palpitation, irregular or racing heart beats, orthopnea, leg swelling, history of rheumatic fever or prior heart conditions Respiratory: denies unusual cough, SOB, wheezing, history of recurrent bronchitis, pneumonia or tuberculosis. Denies day time drowsiness. +Snoring. + mild sleep apnea incomplete testing. GI: Milton's. denies difficulty swallowing, nausea, vomiting, change in appetite. No change in bowel habits. Denies constipation, diarrhea, rectal bleeding or hemorrhoids, incontinence. No history of GERD, PUD, jaundice/hepatitis, GB disease, diverticulosis, colorectal cancer, hernias. Kidney/Bladder: Denies frequency, burning. Nocturia: none, incontinence: none. No history of kidney stones, recurrent UTI or kidney infection. Females: Climacteric. No pregnancies. NO abnormal paps Skin: denies unusual rashes. No history of skin cancer, bleeding/changing moles, or unusual skin lesions. Neurologic: concussion in third Denies recurrent GUTIERREZ. change in vision, hearing or smell, tremors, unusual weakness, loss of sensation, or difficulty with balance or gait. No history of epilepsy/convulsions, migraine, head/spinal injuries, or stroke/TIA. Psychiatric: denies unusual worry, moodiness, depression, suicidal ideation or unusual disturbance in relationships. No history of psychiatric illness. Endocrine: denies unusual thirst, hunger, excessive urination, change in skin or hair texture, emotional lability. No history of thryoid, pituitary or hormonal problems. Hematologic: denies unusual bleeding, bruising, or history of anemia or blood transfusion. Denies hx blood clots. Infections: chicken. denies risk factors for HIV, hepatitis or history of unusual infection. Immunizations are up to date. Musculoskeletal: denies unusual stiffness, muscles aches, joint pain, or swelling. Denies recurrent sprain or disruption of joints, debilitating arthritis, gout, or other musculoskeletal disease. Hx back injury, spinal stenosis, radiculopathy. EXAM: BP 122/60 Pulse 95 Resp 16 Ht 166 cm (5' 5.35) Wt 91.2 kg (201 lb) SpO2 96% BMI 33.09 kg/m Pleasant overweight adult woman in no acute distress. Alert and oriented all spheres. Normal affect and cognition. Speech normal. No deficits to learning or comprehension. Skin warm, dry, pink to lips and nailbeds. Normal turgor. Multiple scars on upper chest, forearms neck from cutaneous lupus. Respirations regular and unlabored. HEENT: NCAT. No scleral icterus or conjunctival injection. TM's clear. Nose and oropharynx free from injection or lesion. Oral membranes moist and pink. Teeth in good repair. No cervical lymph nodes. Thyroid non-tender, no masses, or enlargement. Carotids pulses 2+/4+ without bruits. Chest is normal shape. Lungs are clear to all preciado with good air exchange through out. HRRR without murmur or gallop. No lifts, heaves, or rubs. Chest Normal shape. Abdomen: active bowel sounds throughout, soft, nontender, no masses or organomegaly. No CVAT. No inguinal or axillary nodes. Femoral pulses 2/4+ without bruits. Extrem: no clubbing or cyanosis. Edema: none. Extremities are warm and pink with prompt capillary refill. Dorsal pedal pulses 2/4+, radial 2/4+/ smooth nails. No significant arthritis changes or joint inflammation. Gait and balance normal. Sensation grossly intact. Negative findings: speech normal, mental status intact, cranial nerves 2-12 intact, muscle tone normal, DTRs 2/4+ and symmetric ASSESSMENT/PLAN: 1. Wellness examination - ICD9: V70.0, ICD10: Z00.00 (primary diagnosis) - Counseled on healthy diet and regular exercise - Calcium intake with supplements or by diet of 1000 mg/day for under 50, 7293-3899 mg/day for 50+ - Discussed need and benefit for weight loss. BMI 33.09 kg/(m^2) - Depression screening tool completed and reviewed with patient. Based on score and interview, patient is not at risk for depression and recommended no further intervention at this time. - Follow up for annual exam in one year 2. RODRIGO (obstructive sleep apnea) - ICD9: 327.23, ICD10: G47.33 Discussed results HSAT: recommend proceed to rule out desaturation and confirm level of RODRIGO with tailored treatment to control. 3. Nocturnal oxygen desaturation - ICD9: 327.24, ICD10: G47.34 As above 4. 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 Eloise Montesinos On plaquenil. 5. HYPERLIPIDEMIA MIXED - ICD9: 272.2, ICD10: E78.2 - good control - Encouraged following a low fat, low cholesterol diet. - Discussed the benefits of regular aerobic exercise and weight loss. - Encouraged following a low carbohydrate, healthy oil intake diet. 6. Fatigue, unspecified type - ICD9: 780.79, ICD10: R53.83 resolved 7. Milton's esophagus with dysplasia - ICD9: 530.85, ICD10: K22.719 3 year surveillance Ivis Chang PA-C documented in this encounter [facility] 11-14-2021 History of Present illness Narrative Radiology Service Progress Note PATIENT NAME: Vickey Schwartz DATE OF SERVICE: November 14, 2021 TIME: 4:10 PM PATIENT IDENTITY VERIFICATION COMPLETED USING TWO (2) IDENTIFIERS: Name and Date of confirmed by patient verbally. FALL SCREENING: Has the patient had 2 falls in the last year or 1 fall with injury or currently using an Ambulatory Assistive Device (Walker, Cane, Wheelchair, Crutches, etc.)? No PATIENT GENDER DATA: Female. status: : No status: NO. PATIENT RELEVANT IMPLANT DATA REVIEWED: Not Applicable RADIOLOGY DEPARTMENT: General X-ray: Exam(s) Completed: Chest X-Ray PERIPHERAL IV DATA: Not applicable SIGNED BY: RT Linda(R) November 14, 2021 4:10 PM documented in this encounter [facility] 11-14-2021 Instructions Boaz Pineda DO - 11/14/2021 3:51 PM EDT First floor for blood work and urine 2. Second floor for chest X-rays 3. Please schedule the CT scan of your chest by calling [phone] documented in this encounter [facility] 11-14-2021 History of Present illness Narrative Images from the original note were not included. [facility] DEPARTMENT OF RHEUMATIC AND IMMUNOLOGIC DISEASES SUBJECTIVE: Reason for visit: cutaneous LE Brief History of Present Illness: Vickey Schwartz is a 61 year old female with primary biliary cirrhosis/cholangitis (dx 2016), hyperlipidemia who is evaluated in the Rheumatology Clinic for cutaneous lupus. She has been previously seen by Dr. Padgett 09/01/2019. Background history: 06/18/[address] Luque. She states she had been having joint pain in April-June 2017, but she did not have any skin rashes over the face at that time. The joint pain was located in the knees and elbows bilaterally, and went away after 2 months. Did not notice any red hot or swollen joints at that time. No morning stiffness at that time, and pain did not change much over the course of the day. She did have some skin rash (red at that time) over the forearms and trunks. Her rash then spread to the face after her 06/18/17 rheumatology appointment, and she was referred to derm, who she was not able to see until October. 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 She was also started on plaquenil on 03/01/18 On 05/13/18, Dr. Montesinos (derm) noted increased hair loss over the scalp, and had been experiencing increased photosensitivity. She is getting creams and lotions for her skin rash, which has been helpful. She does note increased stains of hyperpigmentation over areas where the prior rash had occurred. Patient notes that it has been years since she has been more sensitive to sunlight. She states in the past she may get hives from being in the sun. She was first seen by me 02/23/2020. Her last visit was 10/2020. She has been diligent about sun protection, still taking HCQ 2 tablets/daily. On review of SHADI+ spectrum, patient denies Raynaud s, alopecia, sicca, dysphagia, mucosal ulcers, pleurisy or chest pain. She does have phlegm production and a cough. Former smoker. Answers submitted by the patient for this visit: Review of Systems Rheumatology (Submitted on 11/09/2021) Fever : No Recent Unintentional Weight Change: No Eye Pain: No Eye Redness: No Vision Disturbance: No Eye Dryness: No Nose Bleeds: No Sores in your Mouth: No Trouble Swallowing: No Dry Mouth: Yes Chest Pain: No Leg Swelling: No A Cough: No Shortness of Breath: No Pain with Breathing: No Heartburn: No Abdominal Pain: No Diarrhea: No Black Tarry Stools: No Blood in Urine: No Pain or Burning with Urination: No Joint Pain or Stiffness: No Muscle Weakness: No Muscle Aches: No Joint Swelling: No Morning Stiffness in Joints: No A Rash: No Skin Color Changes: No Hair Loss: No Nail Changes: Yes Headaches: No Numbness: No Memory Loss: No Swollen Glands: No PMHx: PAST MEDICAL HISTORY Diagnosis Date Hemorrhage of rectum and anus HYPERLIPIDEMIA MIXED 07/10/2005 Lung nodule 06/13/2016 June 25, 2017 subcentimeter lung nodules and interstitial lung disease also stable from 2017: check CT in 1 year. Primary biliary cholangitis (HCC) Snoring PSHx: PAST SURGICAL HISTORY Procedure Laterality Date COLONOSCOPY FLX DX W/COLLJ SPEC WHEN PFRMD 06/29/2016 HAD VASOVAGAL RESPONSE DURING PROCEDURE SYST BP 60'S HR 40'S-GIVEN ATROPINE CORRJ HALLUX VALGUS W/SESMDC W/DIST METAR OSTEOT 1986 DIAGNOSTIC ARTHROSCOPY SHOULDER +- SYNOVIAL BX Left 04/03/2018 Left shoulder arthroscopic subacromial decompression, rotator cuff repair, and biceps tenotomy ESOPHAGOGASTRODUODENOSCOPY TRANSORAL DIAGNOSTIC 11/11/2018 EGD ESOPHAGOGASTRODUODENOSCOPY TRANSORAL DIAGNOSTIC 11/22/2020 repeat in 2 years HYSTEROSCOPY 06/21/2017 D&C SIGMOIDOSCOPY ?1999 MEDICATIONS: hydrOXYchloroQUINE (PLAQUENIL) 200 mg tablet Take 1 tablet by mouth twice daily. nystatin (MYCOSTATIN) 100,000 unit/mL suspension RINSE AND SPIT DIRECTED FOUR TIMES DAILY ursodiol (ACTIGALL) 300 mg capsule Take 1 capsule by mouth three times daily. pantoprazole DR (PROTONIX) 40 mg tablet Take 1 tablet by mouth once daily. Cholecalciferol, Vitamin D3, (VITAMIN D) 25 mcg (1,000 unit) cap Take 2 capsules by mouth once daily. clotrimazole-betamethasone (LOTRISONE) lotion Betamethasone / Clotrimazole Clotrimazole/Betamethasone Dip [Clotrimazole-Betamethasone Lot] 30 ML TP NEEDED PRN For SKIN June 14, 2017 Active 06-14-2017 [facility] ([id number]) Clobetasol Propionate (TEMOVATE) 0.05 % external solution Apply to affected areas on the scalp twice a day. Dispense 100ml as 30 day supply. biotin 5,000 mcg ODT Take by mouth once daily. Calcium-Cholecalciferol, D3, 500 mg-10 mcg (400 unit) per tablet Take 1 tablet by mouth once daily. triamcinolone acetonide (KENALOG) 0.1 % cream Apply to rash on body twice a day M-F, take weekends off amoxicillin (POLYMOX, AMOXIL) 500 mg capsule TAKE 2 CAPSULES BY MOUTH AT ONCE, Then TAKE 1 CAPSULE BY MOUTH EVERY 8 HOURS tacrolimus (PROTOPIC) 0.1 % ointment Apply twice daily to affected areas on face ALLERGIES: ALLERGIES Allergen Reactions Adhesive Tape (Sammi* Itching Itching and redness OBJECTIVE: Physical Examination: Vitals: BP 123/68 Pulse 91 Ht 166.5 cm (5' 5.55) Wt 92.1 kg (203 lb) BMI 33.22 kg/m General: Looks well, NAD, A & Ox3. HEENT: No facial rash. No alopecia. CVS: RRR, nl S1/S2, no R/M/G, Resp: coarse breath sounds at lung bases. Ext: No edema. Neuro: Gait Normal. Skin: No rash. No ulcers. Musculoskeletal: Shoulders: No swelling, no tenderness, good ROM Elbows: No swelling, no tenderness, no flexion contractures, no nodules, good ROM Wrists: No swelling, no tenderness, no limitation in flexion and extension Hands: No evidence of synovitis. Able to make full fist bilaterally Knees: No effusion, no tenderness, good ROM Ankles: No swelling, no tenderness, good ROM Feet/Toes/ MTP: No evidence of synovitis IMPRESSIONS/RECOMMENDATIONS: Vickey Schwartz is a 59 year old female with PMHx significant for primary biliary cirrhosis/cholangitis (dx 2016), hyperlipidemia who is evaluated in the Rheumatology Clinic for cutaneous lupus. Cutaneous LE, well controlled No active systemic lupus; She has +SHADI 1:320 speckled, with an equivocal range dsDNA with no other laboratory features of systemic lupus. Clinically she has had a biopsy consistent with discoid lupus and stable alopecia. No new systemic symptoms. She will continue HCQ 400 mg daily, along with topical treatments per Dermatology. SLE activity labs today ordered for her today. We will continue yearly evaluations. 2. Cough, shortness of breath CT scan from 10/2018 with reticulation within the periphery of the lungs and lower lobes, bilaterally, consistent with interstitial disease. She will need repeat CT and PFTs, consider referral to pulm. Health Maintenance HCQ: Exam scanned into system from 03/2021 Vaccinations: up to date with COVID vaccines and bivalent booster. Yearly influenza given today. Boaz Pnieda D.O. Rheumatology Staff documented in this encounter [facility] 11-14-2021 Miscellaneous Notes November 14, 2021 PID: [id number] Vickey Schwartz [address] [place] [address] Dear Ms. Schwartz, We are pleased to inform you that the results of your recent breast imaging exam on 11/14/2021 are normal. Your mammogram demonstrates that you have dense breast tissue, which could hide abnormalities. Dense breast tissue, in and of itself, is a relatively common condition. Therefore, this information is not provided to cause undue concern; rather, it is to raise your awareness and promote discussion with your health care provider regarding the presence of dense breast tissue in addition to other risk factors. Early detection of cancer is very important. We also understand recommendations regarding breast cancer screening are controversial. Please discuss with your primary care provider which strategy is best for you and whether a mammogram is right for you. Your imaging studies and report will be kept on file at [facility] as part of your permanent medical record and are available for your continuing care. Thank you for allowing us to help in meeting your health care needs. Sincerely, Dr. Hewitt Interpreting Radiologist [facility] (Normal over 40) documented in this encounter [facility] 10-26-2021 Miscellaneous Notes patient scheduled Order placed. Patient requesting mammography order please place order. documented in this encounter [facility] 10-26-2021 Instructions Allen Valdes MD - 10/26/2021 11:49 AM EDT Continue CMP every 3 months Please james OV 1 yr documented in this encounter [facility] 10-26-2021 History of Present illness Narrative DEPARTMENT OF GASTROENTEROLOGY - FOLLOW UP VISIT HISTORY OF PRESENT ILLNESS Vickey Schwartz is a 61 year old female who presents today for follow up of abnormal LFT's. TEST RESULTS SINCE LAST VISIT Imaging/Procedures: See impression Hemoglobin (g/dL) Date Value 10/25/2020 14.9 Hematocrit (%) Date Value 10/25/2020 44.8 WBC (k/uL) Date Value 10/25/2020 7.73 Glucose (mg/dL) Date Value 10/24/2021 86 01/18/2021 90 Potassium (mmol/L) Date Value 10/24/2021 4.3 01/18/2021 3.7 Sodium (mmol/L) Date Value 10/24/2021 141 01/18/2021 135 Chloride (mmol/L) Date Value 10/24/2021 102 01/18/2021 100 CO2 (mmol/L) Date Value 10/24/2021 28 01/18/2021 25 Creatinine (mg/dL) Date Value 10/24/2021 0.91 01/18/2021 0.70 BUN (mg/dL) Date Value 10/24/2021 14 01/18/2021 10 Anion Gap (mmol/L) Date Value 10/24/2021 11 01/18/2021 10 Calcium (mg/dL) Date Value 01/18/2021 9.5 Calcium, Total (mg/dL) Date Value 10/24/2021 10.1 Protein, Total (g/dL) Date Value 10/24/2021 8.2 01/18/2021 7.6 Albumin (g/dL) Date Value 10/24/2021 4.4 01/18/2021 4.2 Bilirubin, Total (mg/dL) Date Value 10/24/2021 0.3 01/18/2021 0.3 Alkaline Phosphatase (U/L) Date Value 10/24/2021 163 01/18/2021 159 AST (U/L) Date Value 10/24/2021 32 01/18/2021 29 ALT (U/L) Date Value 10/24/2021 36 01/18/2021 32 Current Outpatient Medications Medication Sig Dispense Refill nystatin (MYCOSTATIN) 100,000 unit/mL suspension RINSE AND SPIT DIRECTED FOUR TIMES DAILY ursodiol (ACTIGALL) 300 mg capsule Take 1 capsule by mouth three times daily. [address] (PROTONIX) 40 mg tablet Take 1 tablet by mouth once daily. 90 tablet 3 hydrOXYchloroQUINE (PLAQUENIL) 200 mg tablet Take 1 tablet by mouth twice daily. 180 tablet 1 amoxicillin (POLYMOX, AMOXIL) 500 mg capsule TAKE 2 CAPSULES BY MOUTH AT ONCE, Then TAKE 1 CAPSULE BY MOUTH EVERY 8 HOURS Cholecalciferol, Vitamin D3, (VITAMIN D) 25 mcg (1,000 unit) cap Take 2 capsules by mouth once daily. clotrimazole-betamethasone (LOTRISONE) lotion Betamethasone / Clotrimazole Clotrimazole/Betamethasone Dip [Clotrimazole-Betamethasone Lot] 30 ML TP NEEDED PRN For SKIN June 14, 2017 Active 06-14-2017 [facility] ([id number]) tacrolimus (PROTOPIC) 0.1 % ointment Apply twice daily to affected areas on face 30 g 3 Clobetasol Propionate (TEMOVATE) 0.05 % external solution Apply to affected areas on the scalp twice a day. Dispense 100ml as 30 day supply. 100 mL 3 biotin 5,000 mcg ODT Take by mouth once daily. Calcium-Cholecalciferol, D3, (CALCIUM 500 WITH D) 500 mg(1,250mg) -400 unit per tablet Take 1 tablet by mouth once daily. triamcinolone acetonide (KENALOG) 0.1 % cream Apply to rash on body twice a day M-F, take weekends off 454 g 0 No current facility-administered medications for this visit. ALLERGIES Allergen Reactions Adhesive Tape (Sammi* Itching Itching and redness PHYSICAL EXAMINATION BP 133/66 Pulse 77 Temp (Src) 97.5 (Temporal) Ht 5' 5.551 (1.67m) Wt 200 lb 6.4 oz (90.9kg) SpO2 98% BMI 32.79 kg/(m^2). General Appearance: alert, oriented x 3, pleasant and in no acute distress Assessment IMPRESSION The patient is a 61-year-old female. She was last seen by me in October 2020 with the following impression: The patient is a 60-year-old female with primary biliary cirrhosis. Her last office visit was 01/21/2020 with the following impression: The patient is doing great she is feeling well. Her LFTs are improved with minimal elevation of her alk phos. She had a follow-up right upper quadrant ultrasound showing adenomyomatosis of the gallbladder. The study was suboptimal because of gas in the abdomen. Her LFTs are improved as above. Her last EGD was in November 2018 and was normal. At this time we will have the patient follow-up with her blood test in 6 months. Would like to pursue a repeat endoscopy in November 2020. The patient will continue her medications at the above dosage. The patient's last FibroScan was 02/27/2019 with the following impression: Impression. The reading was adequate, and corresponds to Fibrosis stage F2 and steatosis grade of S3. The patient currently is feeling great she is having no pruritus, abdominal pain, confusion, weight gain. At this time she is scheduled for an EGD for varices E surveillance in November of this year. We will obtain repeat blood testing and a 6-month interval repeat right upper quadrant ultrasound. Since that time the patient has been doing very well. She is having no abdominal pain confusion, change in gait, abdominal pain, swelling, edema or bleeding. She did have on 11/12/2020 MRCP showing benign gallbladder adenomatosis no stones or biliary dilatation there was no gallbladder polyp. On 10/20/2020 she had a right upper quadrant ultrasound showing showing normal liver echotexture. On 11/22/2020 she had an EGD that was negative for Milton's and negative for varices. She will have a repeat EGD in 2 years. Her LFTs show persistent mild elevation of her alkaline phosphatase but normal transaminases. At this time we will repeat her LFTs continue her on the Actigall 300 3 times daily. We will plan on a repeat visit in 1 year. PLAN above Allen Valdes MD October 26, 2021 9:42 AM Answers submitted by the patient for this visit: Review of Systems Gastroenterology (Submitted on 10/22/2021) Fever: No Chills: No Night Sweats: No Unitentional Weight Change: No A Cough: No Difficulty Breathing: No Chest Pain: No Belly pain: No A feeling of fullness or have belly pain after eating: No Food getting stuck in your throat or chest after eating: No Nausea - that is, a feeling like you could vomit: No Regurgitation - that is, food or liquid coming back up into your throat or mouth without vomiting, or feel burning behind your breast bone: No Loss of appetite: No To throw up or vomit: No Blood in your stools: No Black tarry stools: No Loose or watery stools: No The feeling like you need to empty your bowels right away - that is, feel as if you would have an accident: No Bowel incontinence - that is, have an accident because you cannot make it to the bathroom in time: No Problems with straining while having bowel movements , hard or lumpy stools, or feel unfinished (that you have not passed all your stool): No Pain in rectum or anus during bowel movements: No Problems with jaundice - that is, yellow discoloration of your skin or eyes, now or in the past: No Problems with having to flush the toilet more than two times due to oily stool, or see stool floating with oil: No documented in this encounter [facility] 10-19-2021 History of Present illness Narrative Patient presents for Pneumococcal and COVID vaccines. Denies any problems at this time. Tolerated injections well. Shanta Onofre LPN documented in this encounter [facility] 10-17-2021 History of Present illness Narrative CC: Patient presents with: Derm Problem: Follow up lupus HPI: 61 year old female patient here for: follow up cutaneous lupus No flares Doing well with plaquenil 200mg BID - tolerating well without side effects Notes hands continue to have minor flares with sun exposure if she forgets sunscreen Otherwise wears UPF clothing, hats Allergies: ALLERGIES Allergen Reactions Adhesive Tape (Sammi* Itching Itching and redness Medications: Current Outpatient Medications Medication Sig Dispense Refill ursodiol (ACTIGALL) 300 mg capsule Take 1 capsule by mouth three times daily. [address] (PROTONIX) 40 mg tablet Take 1 tablet by mouth once daily. 90 tablet 3 hydrOXYchloroQUINE (PLAQUENIL) 200 mg tablet Take 1 tablet by mouth twice daily. 180 tablet 1 amoxicillin (POLYMOX, AMOXIL) 500 mg capsule TAKE 2 CAPSULES BY MOUTH AT ONCE, Then TAKE 1 CAPSULE BY MOUTH EVERY 8 HOURS Cholecalciferol, Vitamin D3, (VITAMIN D) 25 mcg (1,000 unit) cap Take 2 capsules by mouth once daily. clotrimazole-betamethasone (LOTRISONE) lotion Betamethasone / Clotrimazole Clotrimazole/Betamethasone Dip [Clotrimazole-Betamethasone Lot] 30 ML TP NEEDED PRN For SKIN June 14, 2017 Active 06-14-2017 [facility] ([id number]) tacrolimus (PROTOPIC) 0.1 % ointment Apply twice daily to affected areas on face 30 g 3 Clobetasol Propionate (TEMOVATE) 0.05 % external solution Apply to affected areas on the scalp twice a day. Dispense 100ml as 30 day supply. 100 mL 3 biotin 5,000 mcg ODT Take by mouth once daily. Calcium-Cholecalciferol, D3, (CALCIUM 500 WITH D) 500 mg(1,250mg) -400 unit per tablet Take 1 tablet by mouth once daily. triamcinolone acetonide (KENALOG) 0.1 % cream Apply to rash on body twice a day M-F, take weekends off 454 g 0 No current facility-administered medications for this visit. PMH: PAST MEDICAL HISTORY Diagnosis Date Hemorrhage of rectum and anus HYPERLIPIDEMIA MIXED 07/10/2005 Lung nodule 06/13/2016 June 25, 2017 subcentimeter lung nodules and interstitial lung disease also stable from 2017: check CT in 1 year. Primary biliary cholangitis (HCC) Snoring FH: No family history of skin cancer SH: works at [employer] ROS: Constitutional: denies fevers, chills, weight loss Eyes: denies vision changes CV: denies CP Resp: denies SOB, cough GI: denies n/v/d : denies hematuria MSK: denies joint pains Skin: as above Neuro: denies GUTIERREZ, weakness Psych: denies anxiety Heme: denies anemia; +h/o thrombocytopenia Allergy: denies seasonal allergies Rheum: +photosensivity, denies Raynaud's PHYSICAL EXAM: Skin examination including head, face, ears, neck, chest, abdomen, back, shoulders, upper extremities, hands Skin findings: On face, neck, chest are numerous hyperpigmented patches, some with subtle central atrophy Scalp (~50% of total scalp) with intersecting hyper- and hypopigmented atrophic plaques ASSESSMENT/PLAN: Cutaneous lupus erythematosus Discoid lupus erythematosus +SHADI, +anti Ro +anti ds DNA low titer, repeat in 02/2020 and 10/2020 negative No systemic symptoms to suggest SLE at this time but will continue to monitor closely with help of rheum -strict sun protection and avoidance -ophtho annual exam -continue Plaquenil 200mg tablet twice daily Inform me immediately if flare Return in 6-12 months, sooner as needed The patient is seen and examined by Dr. Montesinos and the following reflects his/her service. Scribed by Maria L Velázquez MA I agree with the Chief Complaint, ROS, and Past Histories independently gathered by the clinical credit support specialist and the remaining scribed note accurately describes my personal service to and examination of the patient. Eloise Montesinos MD documented in this encounter [facility] 10-05-2021 Miscellaneous Notes Patient scheduled for nurse visit 10/19/21 to receive Pneumococcal vaccine. Please place order at this time. Shanta Onofre LPN documented in this encounter [facility] 08-10-2021 Miscellaneous Notes Mychart message sent. Please inform that the blood tests are essentially unchanged. Please be sure the patient has a follow-up visit scheduled. documented in this encounter [facility] [facility] Past [facility] llness Narrative Problem Noted Date Diagnosed Date Resolved Date Positive SHADI (antinuclear antibody) 06/18/2017 11/03/2022 ESR raised 06/18/2017 11/03/2022 Thrombocytopenia 06/11/2017 11/03/2022 Overview: Most recent platelets were normal. 02/18/18 Last Assessment & Plan: H/o, recent platelets normal, new labs pending Eczematous dermatitis 12/07/20102022 Contact dermatitis and other eczema, due to unspecified cause 12/07/2010 06/13/2016 Xerosis cutis 12/07/2010 06/13/2016 Pruritus 12/07/2010 06/13/2016 Excoriation 12/07/2010 06/13/2016 Tobacco use disorder 07/10/2005 017 documented as of this encounter (statuses as of 12/08/2022) [facility] History of Past illness Narrative* Problem Noted Date Diagnosed Date Resolved Date Positive SHADI (antinuclear antibody) 06/18/2017 11/03/2022 ESR raised 06/18/2017 11/03/2022 Thrombocytopenia 06/11/2017 11/03/2022 Overview: Most recent platelets were normal. 02/18/18 Last Assessment & Plan: H/o, recent platelets normal, new labs pending Eczematous dermatitis 12/07/20102022 Contact dermatitis and other eczema, due to unspecified cause 12/07/2010 06/13/2016 Xerosis cutis 12/07/2010 06/13/2016 Pruritus 12/07/2010 06/13/2016 Excoriation 12/07/2010 06/13/2016 Tobacco use disorder 07/10/2005 017 documented as of this encounter (statuses as of 12/10/2022) [facility] History of Past illness Narrative* Problem Noted Date Diagnosed Date Resolved Date Positive SHADI (antinuclear antibody) 06/18/2017 11/03/2022 ESR raised 06/18/2017 11/03/2022 Thrombocytopenia 06/11/2017 11/03/2022 Overview: Most recent platelets were normal. 02/18/18 Last Assessment & Plan: H/o, recent platelets normal, new labs pending Eczematous dermatitis 12/07/20102022 Contact dermatitis and other eczema, due to unspecified cause 12/07/2010 06/13/2016 Xerosis cutis 12/07/2010 06/13/2016 Pruritus 12/07/2010 06/13/2016 Excoriation 12/07/2010 06/13/2016 Tobacco use disorder 07/10/2005 017 documented as of this encounter (statuses as of 12/10/2022) [facility] History of Past illness Narrative* Problem Noted Date Diagnosed Date Resolved Date Positive SHADI (antinuclear antibody) 06/18/2017 11/03/2022 ESR raised 06/18/2017 11/03/2022 Thrombocytopenia 06/11/2017 11/03/2022 Overview: Most recent platelets were normal. 02/18/18 Last Assessment & Plan: H/o, recent platelets normal, new labs pending Eczematous dermatitis 12/07/20102022 Contact dermatitis and other eczema, due to unspecified cause 12/07/2010 06/13/2016 Xerosis cutis 12/07/2010 06/13/2016 Pruritus 12/07/2010 06/13/2016 Excoriation 12/07/2010 06/13/2016 Tobacco use disorder 07/10/2005 017 documented as of this encounter (statuses as of 12/27/2022) [facility] History of Past illness Narrative* Problem Noted Date Diagnosed Date Resolved Date Positive SHADI (antinuclear antibody) 06/18/2017 11/03/2022 ESR raised 06/18/2017 11/03/2022 Thrombocytopenia 06/11/2017 11/03/2022 Overview: Most recent platelets were normal. 02/18/18 Last Assessment & Plan: H/o, recent platelets normal, new labs pending Eczematous dermatitis 12/07/20102022 Contact dermatitis and other eczema, due to unspecified cause 12/07/2010 06/13/2016 Xerosis cutis 12/07/2010 06/13/2016 Pruritus 12/07/2010 06/13/2016 Excoriation 12/07/2010 06/13/2016 Tobacco use disorder 07/10/2005 017 documented as of this encounter (statuses as of 12/27/2022) [facility] Past illness Narrative* Problem Noted Date Diagnosed Date Resolved Date Positive SHADI (antinuclear antibody) 06/18/2017 11/03/2022 ESR raised 06/18/2017 11/03/2022 Thrombocytopenia 06/11/2017 11/03/2022 Overview: Most recent platelets were normal. 02/18/18 Last Assessment & Plan: H/o, recent platelets normal, new labs pending Eczematous dermatitis 12/07/20102022 Contact dermatitis and other eczema, due to unspecified cause 12/07/2010 06/13/2016 Xerosis cutis 12/07/2010 06/13/2016 Pruritus 12/07/2010 06/13/2016 Excoriation 12/07/2010 06/13/2016 Tobacco use disorder 07/10/2005 017 documented as of this encounter (statuses as of 12/28/2022) [facility] Past [facility] Narrative* Problem Noted Date Diagnosed Date Resolved Date Positive SHADI (antinuclear antibody) 06/18/2017 11/03/2022 ESR raised 06/18/2017 11/03/2022 Thrombocytopenia 06/11/2017 11/03/2022 Overview: Most recent platelets were normal. 02/18/18 Last Assessment & Plan: H/o, recent platelets normal, new labs pending Eczematous dermatitis 12/07/20102022 Contact dermatitis and other eczema, due to unspecified cause 12/07/2010 06/13/2016 Xerosis cutis 12/07/2010 06/13/2016 Pruritus 12/07/2010 06/13/2016 Excoriation 12/07/2010 06/13/2016 Tobacco use disorder 07/10/2005 017 documented as of this encounter (statuses as of 01/01/2023) [facility] Past illness Narrative* Problem Noted Date Diagnosed Date Resolved Date Positive SHADI (antinuclear antibody) 06/18/2017 11/03/2022 ESR raised 06/18/2017 11/03/2022 Thrombocytopenia 06/11/2017 11/03/2022 Overview: Most recent platelets were normal. 02/18/18 Last Assessment & Plan: H/o, recent platelets normal, new labs pending Eczematous dermatitis 12/07/20102022 Contact dermatitis and other eczema, due to unspecified cause 12/07/2010 06/13/2016 Xerosis cutis 12/07/2010 06/13/2016 Pruritus 12/07/2010 06/13/2016 Excoriation 12/07/2010 06/13/2016 Tobacco use disorder 07/10/2005 017 documented as of this encounter (statuses as of 01/12/2023) [facility] of Past illness Narrative* Problem Noted Date Diagnosed Date Resolved Date Positive SHADI (antinuclear antibody) 06/18/2017 11/03/2022 ESR raised 06/18/2017 11/03/2022 Thrombocytopenia 06/11/2017 11/03/2022 Overview: Most recent platelets were normal. 02/18/18 Last Assessment & Plan: H/o, recent platelets normal, new labs pending Eczematous dermatitis 12/07/20102022 Contact dermatitis and other eczema, due to unspecified cause 12/07/2010 06/13/2016 Xerosis cutis 12/07/2010 06/13/2016 Pruritus 12/07/2010 06/13/2016 Excoriation 12/07/2010 06/13/2016 Tobacco use disorder 07/10/2005 017 documented as of this encounter (statuses as of 04/04/2023) [facility] History of Past illness Narrative* Problem Noted Date Diagnosed Date Resolved Date Positive SHADI (antinuclear antibody) 06/18/2017 11/03/2022 ESR raised 06/18/2017 11/03/2022 Thrombocytopenia 06/11/2017 11/03/2022 Overview: Most recent platelets were normal. 02/18/18 Last Assessment & Plan: H/o, recent platelets normal, new labs pending Eczematous dermatitis 12/07/20102022 Contact dermatitis and other eczema, due to unspecified cause 12/07/2010 06/13/2016 Xerosis cutis 12/07/2010 06/13/2016 Pruritus 12/07/2010 06/13/2016 Excoriation 12/07/2010 06/13/2016 Tobacco use disorder 07/10/2005 017 documented as of this encounter (statuses as of 04/04/2023) [facility] of Past illness Narrative* Problem Noted Date Diagnosed Date Resolved Date Positive SHDAI (antinuclear antibody) 06/18/2017 11/03/2022 ESR raised 06/18/2017 11/03/2022 Thrombocytopenia 06/11/2017 11/03/2022 Overview: Most recent platelets were normal. 02/18/18 Last Assessment & Plan: H/o, recent platelets normal, new labs pending Eczematous dermatitis 12/07/20102022 Contact dermatitis and other eczema, due to unspecified cause 12/07/2010 06/13/2016 Xerosis cutis 12/07/2010 06/13/2016 Pruritus 12/07/2010 06/13/2016 Excoriation 12/07/2010 06/13/2016 Tobacco use disorder 07/10/2005 017 documented as of this encounter (statuses as of 04/06/2023) [facility] History of Past illness Narrative* Problem Noted Date Resolved Date Contact dermatitis and other eczema, due to unspecified cause 12/07/2010 06/13/2016 Xerosis cutis 12/07/2010 06/13/2016 Pruritus 12/07/2010 06/13/2016 Excoriation 12/07/2010 06/13/2016 Tobacco use disorder 07/10/2005 06/13/2016 Primary biliary cholangitis 11/05 Last Assessment & Plan: Follows Dr. Valdes, new labs pending documented as of this encounter (statuses as of 08/10/2021) [facility] History of Past illness Narrative* Problem Noted Date Resolved Date Contact dermatitis and other eczema, due to unspecified cause 12/07/2010 06/13/2016 Xerosis cutis 12/07/2010 06/13/2016 Pruritus 12/07/2010 06/13/2016 Excoriation 12/07/2010 06/13/2016 Tobacco use disorder 07/10/2005 06/13/2016 Primary biliary cholangitis 11/05 Last Assessment & Plan: Follows Dr. Valdes, new labs pending documented as of this encounter (statuses as of 10/05/2021) [facility] History of Past illness Narrative* Problem Noted Date Resolved Date Contact dermatitis and other eczema, due to unspecified cause 12/07/2010 06/13/2016 Xerosis cutis 12/07/2010 06/13/2016 Pruritus 12/07/2010 06/13/2016 Excoriation 12/07/2010 06/13/2016 Tobacco use disorder 07/10/2005 06/13/2016 Primary biliary cholangitis 11/05 Last Assessment & Plan: Follows Dr. Valdes new labs pending documented as of this encounter (statuses as of 10/17/2021) [facility] History of Past illness Narrative* Problem Noted Date Resolved Date Contact dermatitis and other eczema, due to unspecified cause 12/07/2010 06/13/2016 Xerosis cutis 12/07/2010 06/13/2016 Pruritus 12/07/2010 06/13/2016 Excoriation 12/07/2010 06/13/2016 Tobacco use disorder 07/10/2005 06/13/2016 Primary biliary cholangitis 11/05 Last Assessment & Plan: Follows Dr. Valdes new labs pending documented as of this encounter (statuses as of 10/19/2021) [facility] History of Past illness Narrative* Problem Noted Date Resolved Date Contact dermatitis and other eczema, due to unspecified cause 12/07/2010 06/13/2016 Xerosis cutis 12/07/2010 06/13/2016 Pruritus 12/07/2010 06/13/2016 Excoriation 12/07/2010 06/13/2016 Tobacco use disorder 07/10/2005 06/13/2016 Primary biliary cholangitis 11/05 Last Assessment & Plan: Follows Dr. Valdes, new labs pending documented as of this encounter (statuses as of 10/26/2021) [facility] History of Past illness Narrative* Problem Noted Date Resolved Date Contact dermatitis and other eczema, due to unspecified cause 12/07/2010 06/13/2016 Xerosis cutis 12/07/2010 06/13/2016 Pruritus 12/07/2010 06/13/2016 Excoriation 12/07/2010 06/13/2016 Tobacco use disorder 07/10/2005 06/13/2016 Primary biliary cholangitis 11/05 Last Assessment & Plan: Follows Dr. Valdes, new labs pending documented as of this encounter (statuses as of 10/30/2021) [facility] History of Past illness Narrative* Problem Noted Date Resolved Date Contact dermatitis and other eczema, due to unspecified cause 12/07/2010 06/13/2016 Xerosis cutis 12/07/2010 06/13/2016 Pruritus 12/07/2010 06/13/2016 Excoriation 12/07/2010 06/13/2016 Tobacco use disorder 07/10/2005 06/13/2016 Primary biliary cholangitis 11/05 Last Assessment & Plan: Follows Dr. Valdes, new labs pending documented as of this encounter (statuses as of 11/14/2021) [facility] History of Past illness Narrative* Problem Noted Date Resolved Date Contact dermatitis and other eczema, due to unspecified cause 12/07/2010 06/13/2016 Xerosis cutis 12/07/2010 06/13/2016 Pruritus 12/07/2010 06/13/2016 Excoriation 12/07/2010 06/13/2016 Tobacco use disorder 07/10/2005 06/13/2016 Primary biliary cholangitis 11/05 Last Assessment & Plan: Follows Dr. Valdes, new labs pending documented as of this encounter (statuses as of 11/15/2021) [facility] History of Past illness Narrative* Problem Noted Date Resolved Date Contact dermatitis and other eczema, due to unspecified cause 12/07/2010 06/13/2016 Xerosis cutis 12/07/2010 06/13/2016 Pruritus 12/07/2010 06/13/2016 Excoriation 12/07/2010 06/13/2016 Tobacco use disorder 07/10/2005 06/13/2016 Primary biliary cholangitis 11/05 Last Assessment & Plan: Follows ronnell Deng labs pending documented as of this encounter (statuses as of 11/16/2021) [facility] Past [facility] Narrative* Problem Noted Date Resolved Date Contact dermatitis and other eczema, due to unspecified cause 12/07/2010 06/13/2016 Xerosis cutis 12/07/2010 06/13/2016 Pruritus 12/07/2010 06/13/2016 Excoriation 12/07/2010 06/13/2016 Tobacco use disorder 07/10/2005 06/13/2016 Primary biliary cholangitis 11/05 Last Assessment & Plan: Follows ronnell Deng labs pending documented as of this encounter (statuses as of 11/22/2021) [facility] of Past illness Narrative* Problem Noted Date Resolved Date Contact dermatitis and other eczema, due to unspecified cause 12/07/2010 06/13/2016 Xerosis cutis 12/07/2010 06/13/2016 Pruritus 12/07/2010 06/13/2016 Excoriation 12/07/2010 06/13/2016 Tobacco use disorder 07/10/2005 06/13/2016 Primary biliary cholangitis 11/05 Last Assessment & Plan: Follows Dr. Baggott, new labs pending documented as of this encounter (statuses as of 11/29/2021) [facility] History of Past illness Narrative* Problem Noted Date Resolved Date Contact dermatitis and other eczema, due to unspecified cause 12/07/2010 06/13/2016 Xerosis cutis 12/07/2010 06/13/2016 Pruritus 12/07/2010 06/13/2016 Excoriation 12/07/2010 06/13/2016 Tobacco use disorder 07/10/2005 06/13/2016 Primary biliary cholangitis 11/05 Last Assessment & Plan: Follows Dr. Valdes, new labs pending documented as of this encounter (statuses as of 12/05/2021) [facility] History of Past illness Narrative* Problem Noted Date Resolved Date Contact dermatitis and other eczema, due to unspecified cause 12/07/2010 06/13/2016 Xerosis cutis 12/07/2010 06/13/2016 Pruritus 12/07/2010 06/13/2016 Excoriation 12/07/2010 06/13/2016 Tobacco use disorder 07/10/2005 06/13/2016 Primary biliary cholangitis 11/05 Last Assessment & Plan: Follows Dr. Valdes, new labs pending documented as of this encounter (statuses as of 12/12/2021) [facility] History of Past illness Narrative* Problem Noted Date Resolved Date Contact dermatitis and other eczema, due to unspecified cause 12/07/2010 06/13/2016 Xerosis cutis 12/07/2010 06/13/2016 Pruritus 12/07/2010 06/13/2016 Excoriation 12/07/2010 06/13/2016 Tobacco use disorder 07/10/2005 06/13/2016 Primary biliary cholangitis 11/05 Last Assessment & Plan: Follows Dr. Valdes, new labs pending documented as of this encounter (statuses as of 12/14/2021) [facility] History of Past illness Narrative* Problem Noted Date Resolved Date Contact dermatitis and other eczema, due to unspecified cause 12/07/2010 06/13/2016 Xerosis cutis 12/07/2010 06/13/2016 Pruritus 12/07/2010 06/13/2016 Excoriation 12/07/2010 06/13/2016 Tobacco use disorder 07/10/2005 06/13/2016 Primary biliary cholangitis 11/05 Last Assessment & Plan: Follows Dr. Valdes, new labs pending documented as of this encounter (statuses as of 12/28/2021) [facility] History of Past illness Narrative* Problem Noted Date Resolved Date Contact dermatitis and other eczema, due to unspecified cause 12/07/2010 06/13/2016 Xerosis cutis 12/07/2010 06/13/2016 Pruritus 12/07/2010 06/13/2016 Excoriation 12/07/2010 06/13/2016 Tobacco use disorder 07/10/2005 06/13/2016 Primary biliary cholangitis 11/05 Last Assessment & Plan: Follows Dr. Valdes, new labs pending documented as of this encounter (statuses as of 12/30/2021) [facility] History of Past illness Narrative* Problem Noted Date Resolved Date Contact dermatitis and other eczema, due to unspecified cause 12/07/2010 06/13/2016 Xerosis cutis 12/07/2010 06/13/2016 Pruritus 12/07/2010 06/13/2016 Excoriation 12/07/2010 06/13/2016 Tobacco use disorder 07/10/2005 06/13/2016 Primary biliary cholangitis 11/05 Last Assessment & Plan: Follows Dr. Valdes, new labs pending documented as of this encounter (statuses as of 02/04/2022) [facility] of Past illness Narrative* Problem Noted Date Resolved Date Contact dermatitis and other eczema, due to unspecified cause 12/07/2010 06/13/2016 Xerosis cutis 12/07/2010 06/13/2016 Pruritus 12/07/2010 06/13/2016 Excoriation 12/07/2010 06/13/2016 Tobacco use disorder 07/10/2005 06/13/2016 Primary biliary cholangitis 11/05 Last Assessment & Plan: Follows Dr. Valdes, new labs pending documented as of this encounter (statuses as of 03/01/2022) [facility] of Past [facility] Narrative* Problem Noted Date Resolved Date Contact dermatitis and other eczema, due to unspecified cause 12/07/2010 06/13/2016 Xerosis cutis 12/07/2010 06/13/2016 Pruritus 12/07/2010 06/13/2016 Excoriation 12/07/2010 06/13/2016 Tobacco use disorder 07/10/2005 06/13/2016 Primary biliary cholangitis 11/05 Last Assessment & Plan: Follows Dr. Valdes, new labs pending documented as of this encounter (statuses as of 03/22/2022) [facility] of Past illness Narrative* Problem Noted Date Resolved Date Contact dermatitis and other eczema, due to unspecified cause 12/07/2010 06/13/2016 Xerosis cutis 12/07/2010 06/13/2016 Pruritus 12/07/2010 06/13/2016 Excoriation 12/07/2010 06/13/2016 Tobacco use disorder 07/10/2005 06/13/2016 Primary biliary cholangitis 11/05 Last Assessment & Plan: Follows Dr. Valdes, new labs pending documented as of this encounter (statuses as of 04/25/2022) [facility] of Past illness Narrative* Problem Noted Date Resolved Date Contact dermatitis and other eczema, due to unspecified cause 12/07/2010 06/13/2016 Xerosis cutis 12/07/2010 06/13/2016 Pruritus 12/07/2010 06/13/2016 Excoriation 12/07/2010 06/13/2016 Tobacco use disorder 07/10/2005 06/13/2016 Primary biliary cholangitis 11/05 Last Assessment & Plan: Follows Dr. Valdes new labs pending documented as of this encounter (statuses as of 05/01/2022) [facility] of Past [facility] Narrative* Problem Noted Date Resolved Date Contact dermatitis and other eczema, due to unspecified cause 12/07/2010 06/13/2016 Xerosis cutis 12/07/2010 06/13/2016 Pruritus 12/07/2010 06/13/2016 Excoriation 12/07/2010 06/13/2016 Tobacco use disorder 07/10/2005 06/13/2016 Primary biliary cholangitis 11/05 Last Assessment & Plan: Follows Dr. Valdes, new labs pending documented as of this encounter (statuses as of 05/01/2022) [facility] History of Past illness Narrative* Problem Noted Date Resolved Date Contact dermatitis and other eczema, due to unspecified cause 12/07/2010 06/13/2016 Xerosis cutis 12/07/2010 06/13/2016 Pruritus 12/07/2010 06/13/2016 Excoriation 12/07/2010 06/13/2016 Tobacco use disorder 07/10/2005 06/13/2016 Primary biliary cholangitis 11/05 Last Assessment & Plan: Follows Dr. Valdes, new labs pending documented as of this encounter (statuses as of 05/05/2022) [facility] Past [facility] Narrative* Problem Noted Date Resolved Date Contact dermatitis and other eczema, due to unspecified cause 12/07/2010 06/13/2016 Xerosis cutis 12/07/2010 06/13/2016 Pruritus 12/07/2010 06/13/2016 Excoriation 12/07/2010 06/13/2016 Tobacco use disorder 07/10/2005 06/13/2016 Primary biliary cholangitis 11/05 Last Assessment & Plan: Follows Dr. Valdes, new labs pending documented as of this encounter (statuses as of 05/17/2022) [facility] of Past illness Narrative* Problem Noted Date Diagnosed Date Resolved Date Contact dermatitis and other eczema, due to unspecified cause 12/07/2010 06/13/2016 Xerosis cutis 12/07/2010 06/13/2016 Pruritus 12/07/2010 06/13/2016 Excoriation 12/07/2010 06/13/2016 Tobacco use disorder 07/10/2005 017 Primary biliary cholangitis 11/22/2020 Last Assessment & Plan: Follows Dr. Valdes, new labs pending documented as of this encounter (statuses as of 10/03/2022) [facility] Past [facility] Narrative* Problem Noted Date Diagnosed Date Resolved Date Contact dermatitis and other eczema, due to unspecified cause 12/07/2010 06/13/2016 Xerosis cutis 12/07/2010 06/13/2016 Pruritus 12/07/2010 06/13/2016 Excoriation 12/07/2010 06/13/2016 Tobacco use disorder 07/10/2005 017 Primary biliary cholangitis 11/22/2020 Last Assessment & Plan: Follows Dr. Valdes, new labs pending documented as of this encounter (statuses as of 10/03/2022) [facility] of Past illness Narrative* Problem Noted Date Diagnosed Date Resolved Date Contact dermatitis and other eczema, due to unspecified cause 12/07/2010 06/13/2016 Xerosis cutis 12/07/2010 06/13/2016 Pruritus 12/07/2010 06/13/2016 Excoriation 12/07/2010 06/13/2016 Tobacco use disorder 07/10/2005 017 Primary biliary cholangitis 11/22/2020 Last Assessment & Plan: Follows Dr. Valdes, new labs pending documented as of this encounter (statuses as of 10/17/2022) [facility] of Past illness Narrative* Problem Noted Date Diagnosed Date Resolved Date Contact dermatitis and other eczema, due to unspecified cause 12/07/2010 06/13/2016 Xerosis cutis 12/07/2010 06/13/2016 Pruritus 12/07/2010 06/13/2016 Excoriation 12/07/2010 06/13/2016 Tobacco use disorder 07/10/2005 017 Primary biliary cholangitis 11/22/2020 Last Assessment & Plan: Follows Dr. Valdes, new labs pending documented as of this encounter (statuses as of 10/25/2022) [facility] Diagnosis Encounter for immunization- Primary Need for other specified prophylactic vaccination against single bacterial disease [facility] Cutaneous lupus erythematosus- Primary Lupus erythematosus [facility] Need for vaccination- Primary Need for prophylactic vaccination and inoculation against unspecified single disease [facility] Encounter for screening mammogram for malignant neoplasm of breast- Primary Other screening mammogram [facility] Diagnosis Abnormal LFTs- Primary Other abnormal blood chemistry Primary biliary cholangitis (HCC) [facility] Cutaneous lupus erythematosus- Primary Lupus erythematosus Chronic cough Cough Interstitial pulmonary disease (HCC) Postinflammatory pulmonary fibrosis Wheezing Need for vaccination Need for prophylactic vaccination and inoculation against unspecified single disease [facility] C[facility] Diagnosis Cutaneous lupus erythematosus Lupus erythematosus [facility] Diagnosis Wellness examination- Primary RODRIGO (obstructive sleep apnea) Obstructive sleep apnea (adult) (pediatric) Nocturnal oxygen desaturation 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 HYPERLIPIDEMIA MIXED Mixed hyperlipidemia Fatigue, unspecified type Milton's esophagus with dysplasia Milton's esophagus [facility] 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 UIP (usual interstitial pneumonitis) (HCC) Postinflammatory pulmonary fibrosis [facility] Diagnosis Interstitial pulmonary disease (HCC) Postinflammatory pulmonary fibrosis [facility] Interstitial pulmonary disease (HCC) Postinflammatory pulmonary fibrosis [facility] Diagnosis 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 Lupus disease of lung (HCC) [facility] COVID- Primary Exposure to COVID-19 virus Positive self-administered antigen test for COVID-19 [facility] [facility]* Diagnosis Encounter for gynecological examination (general) (routine) without abnormal findings- Primary Encounter for screening for human papillomavirus (HPV) Special screening examination for human papillomavirus (HPV) Pap smear for cervical cancer screening Screening for malignant neoplasm of the cervix Encounter for screening mammogram for breast cancer Encounter for screening for osteoporosis Special screening for osteoporosis Asymptomatic postmenopausal status [facility] Diagnosis Cutaneous lupus erythematosus Lupus erythematosus [facility] Diagnosis Gastroesophageal reflux disease with esophagitis 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 Milton's esophagus [facility] Diagnosis Cutaneous lupus erythematosus Lupus erythematosus [facility] Diagnosis Gastroesophageal reflux disease with esophagitis 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 Milton's esophagus [facility] Diagnosis Other systemic lupus erythematosus with other organ involvement (HCC)- Primary [facility] Diagnosis Examination of participant or control in clinical research- Primary Examination of participant in clinical trial [facility] Diagnosis Discoid lupus erythematosus- Primary Lupus erythematosus Cutaneous lupus erythematosus Lupus erythematosus [facility] Diagnosis Cutaneous lupus erythematosus Lupus erythematosus [facility] Diagnosis Primary sclerosing cholangitis- Primary Cholangitis [facility]* Diagnosis Interstitial pulmonary disease (HCC) Postinflammatory pulmonary fibrosis Wheezing [facility] Diagnosis Encounter for screening for osteoporosis Special screening for osteoporosis Asymptomatic postmenopausal status [facility] Diagnosis Primary sclerosing cholangitis Cholangitis [facility] Diagnosis Encounter for gynecological examination (general) (routine) without abnormal findings Encounter for screening mammogram for breast cancer [facility] Diagnosis Interstitial pulmonary disease (HCC) Postinflammatory pulmonary fibrosis Lupus disease of lung (HCC) [facility] Diagnosis Encounter for immunization- Primary Need for other specified prophylactic vaccination against single bacterial disease [facility] Diagnosis Examination of participant or control in clinical research- Primary Examination of participant in clinical trial [facility] Diagnosis Other systemic lupus erythematosus with other organ involvement (HCC)- Primary Cutaneous lupus erythematosus Lupus erythematosus [facility] Diagnosis Calculus of gallbladder without cholecystitis without obstruction- Primary Calculus of gallbladder without mention of cholecystitis or obstruction [facility] Diagnosis Calculus of gallbladder without cholecystitis without obstruction Calculus of gallbladder without mention of cholecystitis or obstruction [facility]* Diagnosis Interstitial pulmonary disease (HCC) Postinflammatory pulmonary fibrosis [facility] Diagnosis Interstitial lung disease (HCC)- Primary Postinflammatory pulmonary fibrosis Lung nodule Solitary pulmonary nodule Snoring Other dyspnea and respiratory abnormality Small airways disease Other diseases of lung, not elsewhere classified Cutaneous lupus erythematosus Lupus erythematosus [facility] Diagnosis Interstitial pulmonary disease (HCC) Postinflammatory pulmonary fibrosis [facility]* Diagnosis Lung nodule- Primary Solitary pulmonary nodule [facility] Diagnosis Mediastinal adenopathy- Primary Enlargement of lymph nodes Lung nodule Solitary pulmonary nodule [facility] Diagnosis Malignant neoplasm of upper lobe of right lung (HCC)- Primary Malignant neoplasm of upper lobe, bronchus or lung [facility] Diagnosis Pre-operative exam- Primary Preoperative examination, unspecified Incomplete tear of left rotator cuff Rotator cuff (capsule) sprain Chronic left shoulder pain Pain in joint, shoulder region 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 HYPERLIPIDEMIA MIXED Mixed hyperlipidemia Thrombocytopenia (HCC) Thrombocytopenia, unspecified Class 1 obesity without serious comorbidity with body mass index (BMI) of 34.0 to 34.9 in adult, unspecified obesity type Malignant neoplasm of upper lobe of right lung (HCC) Malignant neoplasm of upper lobe, bronchus or lung [facility] Diagnosis Pre-operative exam- Primary Preoperative examination, unspecified Incomplete tear of left rotator cuff Rotator cuff (capsule) sprain Chronic left shoulder pain Pain in joint, shoulder region 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 HYPERLIPIDEMIA MIXED Mixed hyperlipidemia Thrombocytopenia (HCC) Thrombocytopenia, unspecified Class 1 obesity without serious comorbidity with body mass index (BMI) of 34.0 to 34.9 in adult, unspecified obesity type Malignant neoplasm of lower lobe of right lung (HCC)- Primary [facility] Diagnosis Pre-operative exam- Primary Preoperative examination, unspecified Incomplete tear of left rotator cuff Rotator cuff (capsule) sprain Chronic left shoulder pain Pain in joint, shoulder region 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 HYPERLIPIDEMIA MIXED Mixed hyperlipidemia Thrombocytopenia (HCC) Thrombocytopenia, unspecified Class 1 obesity without serious comorbidity with body mass index (BMI) of 34.0 to 34.9 in adult, unspecified obesity type Malignant neoplasm of lower lobe of right lung (HCC) documented in this encounter [facility] note* Diagnosis Pre-operative exam- Primary Preoperative examination, unspecified Incomplete tear of left rotator cuff Rotator cuff (capsule) sprain Chronic left shoulder pain Pain in joint, shoulder region 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 HYPERLIPIDEMIA MIXED Mixed hyperlipidemia Thrombocytopenia (HCC) Thrombocytopenia, unspecified Class 1 obesity without serious comorbidity with body mass index (BMI) of 34.0 to 34.9 in adult, unspecified obesity type Obesity, Class I, BMI 30-34.9- Primary Obesity, unspecified Personal history of malignant neoplasm of bronchus and lung documented in this encounter [facility] note* Diagnosis Pre-operative exam- Primary Preoperative examination, unspecified Incomplete tear of left rotator cuff Rotator cuff (capsule) sprain Chronic left shoulder pain Pain in joint, shoulder region 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 HYPERLIPIDEMIA MIXED Mixed hyperlipidemia Thrombocytopenia (HCC) Thrombocytopenia, unspecified Class 1 obesity without serious comorbidity with body mass index (BMI) of 34.0 to 34.9 in adult, unspecified obesity type Cutaneous lupus erythematosus- Primary Lupus erythematosus [facility]* Diagnosis Pre-operative exam- Primary Preoperative examination, unspecified Incomplete tear of left rotator cuff Rotator cuff (capsule) sprain Chronic left shoulder pain Pain in joint, shoulder region 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 HYPERLIPIDEMIA MIXED Mixed hyperlipidemia Thrombocytopenia (HCC) Thrombocytopenia, unspecified Class 1 obesity without serious comorbidity with body mass index (BMI) of 34.0 to 34.9 in adult, unspecified obesity type Primary biliary cholangitis (HCC)- Primary Gastroesophageal reflux disease with esophagitis 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 Milton's esophagus documented in this encounter [facility] note* Diagnosis Pre-operative exam- Primary Preoperative examination, unspecified Incomplete tear of left rotator cuff Rotator cuff (capsule) sprain Chronic left shoulder pain Pain in joint, shoulder region 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 HYPERLIPIDEMIA MIXED Mixed hyperlipidemia Thrombocytopenia (HCC) Thrombocytopenia, unspecified Class 1 obesity without serious comorbidity with body mass index (BMI) of 34.0 to 34.9 in adult, unspecified obesity type Cancer of lower lobe of right lung (HCC)- Primary documented in this encounter [facility] note* Diagnosis Pre-operative exam- Primary Preoperative examination, unspecified Incomplete tear of left rotator cuff Rotator cuff (capsule) sprain Chronic left shoulder pain Pain in joint, shoulder region 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 HYPERLIPIDEMIA MIXED Mixed hyperlipidemia Thrombocytopenia (HCC) Thrombocytopenia, unspecified Class 1 obesity without serious comorbidity with body mass index (BMI) of 34.0 to 34.9 in adult, unspecified obesity type Acute pain of right knee documented in this encounter [facility] note* Diagnosis Pre-operative exam- Primary Preoperative examination, unspecified Incomplete tear of left rotator cuff Rotator cuff (capsule) sprain Chronic left shoulder pain Pain in joint, shoulder region 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 HYPERLIPIDEMIA MIXED Mixed hyperlipidemia Thrombocytopenia (HCC) Thrombocytopenia, unspecified Class 1 obesity without serious comorbidity with body mass index (BMI) of 34.0 to 34.9 in adult, unspecified obesity type Cancer of lower lobe of right lung (HCC) documented in this encounter [facility] note* Diagnosis Pre-operative exam- Primary Preoperative examination, unspecified Incomplete tear of left rotator cuff Rotator cuff (capsule) sprain Chronic left shoulder pain Pain in joint, shoulder region 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 HYPERLIPIDEMIA MIXED Mixed hyperlipidemia Thrombocytopenia (HCC) Thrombocytopenia, unspecified Class 1 obesity without serious comorbidity with body mass index (BMI) of 34.0 to 34.9 in adult, unspecified obesity type Malignant neoplasm of lower lobe of right lung (HCC)- Primary documented in this encounter [facility] note* Diagnosis Pre-operative exam- Primary Preoperative examination, unspecified Incomplete tear of left rotator cuff Rotator cuff (capsule) sprain Chronic left shoulder pain Pain in joint, shoulder region 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 HYPERLIPIDEMIA MIXED Mixed hyperlipidemia Thrombocytopenia (HCC) Thrombocytopenia, unspecified Class 1 obesity without serious comorbidity with body mass index (BMI) of 34.0 to 34.9 in adult, unspecified obesity type Preop examination- Primary Preoperative examination, unspecified Obesity, Class I, BMI 30-34.9 Obesity, unspecified Interstitial lung disease (HCC) Postinflammatory pulmonary fibrosis Former light tobacco smoker Personal history of tobacco use, presenting hazards to health Primary biliary cirrhosis (HCC) Biliary cirrhosis Sclerosing cholangitis Cholangitis RODRIGO (obstructive sleep apnea) Obstructive sleep apnea (adult) (pediatric) Cutaneous lupus erythematosus Lupus erythematosus Milton's esophagus with dysplasia Milton's esophagus Bronchiolar disease Other diseases of trachea and bronchus documented [facility]* Diagnosis Pre-operative exam- Primary Preoperative examination, unspecified Incomplete tear of left rotator cuff Rotator cuff (capsule) sprain Chronic left shoulder pain Pain in joint, shoulder region 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 HYPERLIPIDEMIA MIXED Mixed hyperlipidemia Thrombocytopenia (HCC) Thrombocytopenia, unspecified Class 1 obesity without serious comorbidity with body mass index (BMI) of 34.0 to 34.9 in adult, unspecified obesity type Non-small cell cancer of right lung (HCC)- Primary Interstitial lung disease (HCC) Postinflammatory pulmonary fibrosis Former light tobacco smoker Personal history of tobacco use, presenting hazards to health Hilar adenopathy Enlargement of lymph nodes Bronchiolar disease Other diseases of trachea and bronchus [facility] Diagnosis Pre-operative exam- Primary Preoperative examination, unspecified Incomplete tear of left rotator cuff Rotator cuff (capsule) sprain Chronic left shoulder pain Pain in joint, shoulder region 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 HYPERLIPIDEMIA MIXED Mixed hyperlipidemia Thrombocytopenia (HCC) Thrombocytopenia, unspecified Class 1 obesity without serious comorbidity with body mass index (BMI) of 34.0 to 34.9 in adult, unspecified obesity type Malignant neoplasm of lower lobe of right lung (HCC)- Primary Encounter for other preprocedural examination [facility]* Diagnosis Pre-operative exam- Primary Preoperative examination, unspecified Incomplete tear of left rotator cuff Rotator cuff (capsule) sprain Chronic left shoulder pain Pain in joint, shoulder region 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 HYPERLIPIDEMIA MIXED Mixed hyperlipidemia Thrombocytopenia (HCC) Thrombocytopenia, unspecified Class 1 obesity without serious comorbidity with body mass index (BMI) of 34.0 to 34.9 in adult, unspecified obesity type Non-small cell cancer of right lung (HCC)- Primary documented in this encounter [facility] note* Diagnosis Lung nodule- Primary Solitary pulmonary nodule [facility]* Diagnosis Pre-operative exam- Primary Preoperative examination, unspecified Incomplete tear of left rotator cuff Rotator cuff (capsule) sprain Chronic left shoulder pain Pain in joint, shoulder region 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 HYPERLIPIDEMIA MIXED Mixed hyperlipidemia Thrombocytopenia (HCC) Thrombocytopenia, unspecified Class 1 obesity without serious comorbidity with body mass index (BMI) of 34.0 to 34.9 in adult, unspecified obesity type Malignant neoplasm of lower lobe of right lung (HCC) Encounter for other preprocedural examination [facility]* Diagnosis Pre-operative exam- Primary Preoperative examination, unspecified Incomplete tear of left rotator cuff Rotator cuff (capsule) sprain Chronic left shoulder pain Pain in joint, shoulder region 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 HYPERLIPIDEMIA MIXED Mixed hyperlipidemia Thrombocytopenia (HCC) Thrombocytopenia, unspecified Class 1 obesity without serious comorbidity with body mass index (BMI) of 34.0 to 34.9 in adult, unspecified obesity type Non-small cell cancer of right lung (HCC)- Primary documented in this encounter [facility] note* Diagnosis Pre-operative exam- Primary Preoperative examination, unspecified Incomplete tear of left rotator cuff Rotator cuff (capsule) sprain Chronic left shoulder pain Pain in joint, shoulder region 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 HYPERLIPIDEMIA MIXED Mixed hyperlipidemia Thrombocytopenia (HCC) Thrombocytopenia, unspecified Class 1 obesity without serious comorbidity with body mass index (BMI) of 34.0 to 34.9 in adult, unspecified obesity type Encounter for education- Primary Counseling NOS documented in this encounter [facility] note* Diagnosis Pre-operative exam- Primary Preoperative examination, unspecified Incomplete tear of left rotator cuff Rotator cuff (capsule) sprain Chronic left shoulder pain Pain in joint, shoulder region 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 HYPERLIPIDEMIA MIXED Mixed hyperlipidemia Thrombocytopenia (HCC) Thrombocytopenia, unspecified Class 1 obesity without serious comorbidity with body mass index (BMI) of 34.0 to 34.9 in adult, unspecified obesity type Non-small cell cancer of right lung (HCC)- Primary documented in this encounter [facility] note* Diagnosis Pre-operative exam- Primary Preoperative examination, unspecified Incomplete tear of left rotator cuff Rotator cuff (capsule) sprain Chronic left shoulder pain Pain in joint, shoulder region 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 HYPERLIPIDEMIA MIXED Mixed hyperlipidemia Thrombocytopenia (HCC) Thrombocytopenia, unspecified Class 1 obesity without serious comorbidity with body mass index (BMI) of 34.0 to 34.9 in adult, unspecified obesity type Non-small cell cancer of right lung (HCC)- Primary documented in this encounter [facility] note* Diagnosis Pre-operative exam- Primary Preoperative examination, unspecified Incomplete tear of left rotator cuff Rotator cuff (capsule) sprain Chronic left shoulder pain Pain in joint, shoulder region 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 HYPERLIPIDEMIA MIXED Mixed hyperlipidemia Thrombocytopenia (HCC) Thrombocytopenia, unspecified Class 1 obesity without serious comorbidity with body mass index (BMI) of 34.0 to 34.9 in adult, unspecified obesity type Non-small cell cancer of right lung (HCC)- Primary documented in this encounter [facility] note* Diagnosis Pre-operative exam- Primary Preoperative examination, unspecified Incomplete tear of left rotator cuff Rotator cuff (capsule) sprain Chronic left shoulder pain Pain in joint, shoulder region 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 HYPERLIPIDEMIA MIXED Mixed hyperlipidemia Thrombocytopenia (HCC) Thrombocytopenia, unspecified Class 1 obesity without serious comorbidity with body mass index (BMI) of 34.0 to 34.9 in adult, unspecified obesity type OPENED IN ERROR- Primary To allow closing an encounter opened in error (used in Smart[employer]) documented in this encounter [facility] note* Diagnosis Pre-operative exam- Primary Preoperative examination, unspecified Incomplete tear of left rotator cuff Rotator cuff (capsule) sprain Chronic left shoulder pain Pain in joint, shoulder region 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 HYPERLIPIDEMIA MIXED Mixed hyperlipidemia Thrombocytopenia (HCC) Thrombocytopenia, unspecified Class 1 obesity without serious comorbidity with body mass index (BMI) of 34.0 to 34.9 in adult, unspecified obesity type Abnormal finding on imaging- Primary Other nonspecific (abnormal) findings on radiological and other examinations of body structure documented in this encounter [facility] note* Diagnosis Pre-operative exam- Primary Preoperative examination, unspecified Incomplete tear of left rotator cuff Rotator cuff (capsule) sprain Chronic left shoulder pain Pain in joint, shoulder region 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 HYPERLIPIDEMIA MIXED Mixed hyperlipidemia Thrombocytopenia (HCC) Thrombocytopenia, unspecified Class 1 obesity without serious comorbidity with body mass index (BMI) of 34.0 to 34.9 in adult, unspecified obesity type Non-small cell cancer of right lung (HCC)- Primary documented in this encounter [facility] note* Diagnosis Pre-operative exam- Primary Preoperative examination, unspecified Incomplete tear of left rotator cuff Rotator cuff (capsule) sprain Chronic left shoulder pain Pain in joint, shoulder region 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 HYPERLIPIDEMIA MIXED Mixed hyperlipidemia Thrombocytopenia (HCC) Thrombocytopenia, unspecified Class 1 obesity without serious comorbidity with body mass index (BMI) of 34.0 to 34.9 in adult, unspecified obesity type Abnormal LFTs- Primary Other abnormal blood chemistry documented in this encounter [facility] note* Diagnosis Pre-operative exam- Primary Preoperative examination, unspecified Incomplete tear of left rotator cuff Rotator cuff (capsule) sprain Chronic left shoulder pain Pain in joint, shoulder region 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 HYPERLIPIDEMIA MIXED Mixed hyperlipidemia Thrombocytopenia (HCC) Thrombocytopenia, unspecified Class 1 obesity without serious comorbidity with body mass index (BMI) of 34.0 to 34.9 in adult, unspecified obesity type Non-small cell cancer of right lung (HCC)- Primary documented in this encounter [facility] note* Diagnosis Pre-operative exam- Primary Preoperative examination, unspecified Incomplete tear of left rotator cuff Rotator cuff (capsule) sprain Chronic left shoulder pain Pain in joint, shoulder region 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 HYPERLIPIDEMIA MIXED Mixed hyperlipidemia Thrombocytopenia (HCC) Thrombocytopenia, unspecified Class 1 obesity without serious comorbidity with body mass index (BMI) of 34.0 to 34.9 in adult, unspecified obesity type Encounter for screening mammogram for breast cancer documented in this encounter [facility] note* Diagnosis Pre-operative exam- Primary Preoperative examination, unspecified Incomplete tear of left rotator cuff Rotator cuff (capsule) sprain Chronic left shoulder pain Pain in joint, shoulder region 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 HYPERLIPIDEMIA MIXED Mixed hyperlipidemia Thrombocytopenia (HCC) Thrombocytopenia, unspecified Class 1 obesity without serious comorbidity with body mass index (BMI) of 34.0 to 34.9 in adult, unspecified obesity type Non-small cell cancer of right lung (HCC)- Primary documented in this encounter [facility] note* Diagnosis Pre-operative exam- Primary Preoperative examination, unspecified Incomplete tear of left rotator cuff Rotator cuff (capsule) sprain Chronic left shoulder pain Pain in joint, shoulder region 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 HYPERLIPIDEMIA MIXED Mixed hyperlipidemia Thrombocytopenia (HCC) Thrombocytopenia, unspecified Class 1 obesity without serious comorbidity with body mass index (BMI) of 34.0 to 34.9 in adult, unspecified obesity type Gastroesophageal reflux disease with esophagitis 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 Milton's esophagus [facility]* Diagnosis Pre-operative exam- Primary Preoperative examination, unspecified Incomplete tear of left rotator cuff Rotator cuff (capsule) sprain Chronic left shoulder pain Pain in joint, shoulder region 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 HYPERLIPIDEMIA MIXED Mixed hyperlipidemia Thrombocytopenia (HCC) Thrombocytopenia, unspecified Class 1 obesity without serious comorbidity with body mass index (BMI) of 34.0 to 34.9 in adult, unspecified obesity type Hypomagnesemia- Primary Disorders of magnesium metabolism Mouth sore secondary to chemotherapy Other and unspecified diseases of the oral soft tissues Non-small cell cancer of right lung (HCC) documented in this encounter [facility] note* Diagnosis Pre-operative exam- Primary Preoperative examination, unspecified Incomplete tear of left rotator cuff Rotator cuff (capsule) sprain Chronic left shoulder pain Pain in joint, shoulder region 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 HYPERLIPIDEMIA MIXED Mixed hyperlipidemia Thrombocytopenia (HCC) Thrombocytopenia, unspecified Class 1 obesity without serious comorbidity with body mass index (BMI) of 34.0 to 34.9 in adult, unspecified obesity type Hypomagnesemia- Primary Disorders of magnesium metabolism Non-small cell cancer of right lung (HCC) documented in this encounter [facility] note* Diagnosis Pre-operative exam- Primary Preoperative examination, unspecified Incomplete tear of left rotator cuff Rotator cuff (capsule) sprain Chronic left shoulder pain Pain in joint, shoulder region 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 HYPERLIPIDEMIA MIXED Mixed hyperlipidemia Thrombocytopenia (HCC) Thrombocytopenia, unspecified Class 1 obesity without serious comorbidity with body mass index (BMI) of 34.0 to 34.9 in adult, unspecified obesity type Non-small cell cancer of right lung (HCC)- Primary documented in this encounter [facility] note* Diagnosis Pre-operative exam- Primary Preoperative examination, unspecified Incomplete tear of left rotator cuff Rotator cuff (capsule) sprain Chronic left shoulder pain Pain in joint, shoulder region 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 HYPERLIPIDEMIA MIXED Mixed hyperlipidemia Thrombocytopenia (HCC) Thrombocytopenia, unspecified Class 1 obesity without serious comorbidity with body mass index (BMI) of 34.0 to 34.9 in adult, unspecified obesity type Non-small cell cancer of right lung (HCC)- Primary documented in this encounter [facility]* Diagnosis Pre-operative exam- Primary Preoperative examination, unspecified Incomplete tear of left rotator cuff Rotator cuff (capsule) sprain Chronic left shoulder pain Pain in joint, shoulder region 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 HYPERLIPIDEMIA MIXED Mixed hyperlipidemia Thrombocytopenia (HCC) Thrombocytopenia, unspecified Class 1 obesity without serious comorbidity with body mass index (BMI) of 34.0 to 34.9 in adult, unspecified obesity type Non-small cell cancer of right lung (HCC)- Primary Hypomagnesemia Disorders of magnesium metabolism [facility] Diagnosis Pre-operative exam- Primary Preoperative examination, unspecified Incomplete tear of left rotator cuff Rotator cuff (capsule) sprain Chronic left shoulder pain Pain in joint, shoulder region 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 HYPERLIPIDEMIA MIXED Mixed hyperlipidemia Thrombocytopenia (HCC) Thrombocytopenia, unspecified Class 1 obesity without serious comorbidity with body mass index (BMI) of 34.0 to 34.9 in adult, unspecified obesity type Cutaneous lupus erythematosus Lupus erythematosus [facility] Diagnosis Pre-operative exam- Primary Preoperative examination, unspecified Incomplete tear of left rotator cuff Rotator cuff (capsule) sprain Chronic left shoulder pain Pain in joint, shoulder region 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 HYPERLIPIDEMIA MIXED Mixed hyperlipidemia Thrombocytopenia (HCC) Thrombocytopenia, unspecified Class 1 obesity without serious comorbidity with body mass index (BMI) of 34.0 to 34.9 in adult, unspecified obesity type Non-small cell cancer of right lung (HCC)- Primary [facility] Diagnosis Pre-operative exam- Primary Preoperative examination, unspecified Incomplete tear of left rotator cuff Rotator cuff (capsule) sprain Chronic left shoulder pain Pain in joint, shoulder region 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 HYPERLIPIDEMIA MIXED Mixed hyperlipidemia Thrombocytopenia (HCC) Thrombocytopenia, unspecified Class 1 obesity without serious comorbidity with body mass index (BMI) of 34.0 to 34.9 in adult, unspecified obesity type Non-small cell cancer of right lung (HCC)- Primary Hypomagnesemia Disorders of magnesium metabolism [facility] Diagnosis Pre-operative exam- Primary Preoperative examination, unspecified Incomplete tear of left rotator cuff Rotator cuff (capsule) sprain Chronic left shoulder pain Pain in joint, shoulder region 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 HYPERLIPIDEMIA MIXED Mixed hyperlipidemia Thrombocytopenia (HCC) Thrombocytopenia, unspecified Class 1 obesity without serious comorbidity with body mass index (BMI) of 34.0 to 34.9 in adult, unspecified obesity type Non-small cell cancer of right lung (HCC)- Primary [facility] Diagnosis Pre-operative exam- Primary Preoperative examination, unspecified Incomplete tear of left rotator cuff Rotator cuff (capsule) sprain Chronic left shoulder pain Pain in joint, shoulder region 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 HYPERLIPIDEMIA MIXED Mixed hyperlipidemia Thrombocytopenia (HCC) Thrombocytopenia, unspecified Class 1 obesity without serious comorbidity with body mass index (BMI) of 34.0 to 34.9 in adult, unspecified obesity type Hypomagnesemia- Primary Disorders of magnesium metabolism Non-small cell cancer of right lung (HCC) [facility] Diagnosis Pre-operative exam- Primary Preoperative examination, unspecified Incomplete tear of left rotator cuff Rotator cuff (capsule) sprain Chronic left shoulder pain Pain in joint, shoulder region 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 HYPERLIPIDEMIA MIXED Mixed hyperlipidemia Thrombocytopenia (HCC) Thrombocytopenia, unspecified Class 1 obesity without serious comorbidity with body mass index (BMI) of 34.0 to 34.9 in adult, unspecified obesity type Non-small cell cancer of right lung (HCC) [facility]* Diagnosis Pre-operative exam- Primary Preoperative examination, unspecified Incomplete tear of left rotator cuff Rotator cuff (capsule) sprain Chronic left shoulder pain Pain in joint, shoulder region 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 HYPERLIPIDEMIA MIXED Mixed hyperlipidemia Thrombocytopenia (HCC) Thrombocytopenia, unspecified Class 1 obesity without serious comorbidity with body mass index (BMI) of 34.0 to 34.9 in adult, unspecified obesity type Non-small cell cancer of right lung (HCC)- Primary documented in this [facility]* Diagnosis Pre-operative exam- Primary Preoperative examination, unspecified Incomplete tear of left rotator cuff Rotator cuff (capsule) sprain Chronic left shoulder pain Pain in joint, shoulder region 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 HYPERLIPIDEMIA MIXED Mixed hyperlipidemia Thrombocytopenia (HCC) Thrombocytopenia, unspecified Class 1 obesity without serious comorbidity with body mass index (BMI) of 34.0 to 34.9 in adult, unspecified obesity type Malignant neoplasm of lower lobe of right lung (HCC)- Primary [facility]* Diagnosis Pre-operative exam- Primary Preoperative examination, unspecified Incomplete tear of left rotator cuff Rotator cuff (capsule) sprain Chronic left shoulder pain Pain in joint, shoulder region 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 HYPERLIPIDEMIA MIXED Mixed hyperlipidemia Thrombocytopenia (HCC) Thrombocytopenia, unspecified Class 1 obesity without serious comorbidity with body mass index (BMI) of 34.0 to 34.9 in adult, unspecified obesity type Hypercalcemia- Primary Non-small cell cancer of right lung (HCC) Hypomagnesemia Disorders of magnesium metabolism CRISTINO (acute kidney injury) (HCC) Acute kidney failure, unspecified documented [facility]* Diagnosis Pre-operative exam- Primary Preoperative examination, unspecified Incomplete tear of left rotator cuff Rotator cuff (capsule) sprain Chronic left shoulder pain Pain in joint, shoulder region 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 HYPERLIPIDEMIA MIXED Mixed hyperlipidemia Thrombocytopenia (HCC) Thrombocytopenia, unspecified Class 1 obesity without serious comorbidity with body mass index (BMI) of 34.0 to 34.9 in adult, unspecified obesity type Acute kidney injury (HCC)- Primary Acute kidney failure, unspecified [facility]* Diagnosis Pre-operative exam- Primary Preoperative examination, unspecified Incomplete tear of left rotator cuff Rotator cuff (capsule) sprain Chronic left shoulder pain Pain in joint, shoulder region 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 HYPERLIPIDEMIA MIXED Mixed hyperlipidemia Thrombocytopenia (HCC) Thrombocytopenia, unspecified Class 1 obesity without serious comorbidity with body mass index (BMI) of 34.0 to 34.9 in adult, unspecified obesity type Non-small cell cancer of right lung (HCC)- Primary Hypomagnesemia Disorders of magnesium metabolism Malignant neoplasm of lower lobe of right lung (HCC) Pre-procedure lab exam Pre-procedural laboratory examination documented [facility]* Diagnosis Pre-operative exam- Primary Preoperative examination, unspecified Incomplete tear of left rotator cuff Rotator cuff (capsule) sprain Chronic left shoulder pain Pain in joint, shoulder region 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 HYPERLIPIDEMIA MIXED Mixed hyperlipidemia Thrombocytopenia (HCC) Thrombocytopenia, unspecified Class 1 obesity without serious comorbidity with body mass index (BMI) of 34.0 to 34.9 in adult, unspecified obesity type Malignant neoplasm of lower lobe of right lung (HCC)- Primary Pre-procedure lab exam Pre-procedural laboratory examination Malignant neoplasm of lower lobe of right lung (HCC) Pre-procedure lab exam Pre-procedural laboratory examination [facility] Diagnosis Pre-operative exam- Primary Preoperative examination, unspecified Incomplete tear of left rotator cuff Rotator cuff (capsule) sprain Chronic left shoulder pain Pain in joint, shoulder region 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 HYPERLIPIDEMIA MIXED Mixed hyperlipidemia Thrombocytopenia (HCC) Thrombocytopenia, unspecified Class 1 obesity without serious comorbidity with body mass index (BMI) of 34.0 to 34.9 in adult, unspecified obesity type Malignant neoplasm of lower lobe of right lung (HCC)- Primary Malignant neoplasm of lower lobe of right lung (HCC) Pre-procedure lab exam Pre-procedural laboratory examination [facility] Diagnosis Pre-operative exam- Primary Preoperative examination, unspecified Incomplete tear of left rotator cuff Rotator cuff (capsule) sprain Chronic left shoulder pain Pain in joint, shoulder region 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 HYPERLIPIDEMIA MIXED Mixed hyperlipidemia Thrombocytopenia (HCC) Thrombocytopenia, unspecified Class 1 obesity without serious comorbidity with body mass index (BMI) of 34.0 to 34.9 in adult, unspecified obesity type Malignant neoplasm of lower lobe of right lung (HCC)- Primary Malignant neoplasm of lower lobe of right lung (HCC) Pre-procedure lab exam Pre-procedural laboratory examination [facility] Diagnosis Pre-operative exam- Primary Preoperative examination, unspecified Incomplete tear of left rotator cuff Rotator cuff (capsule) sprain Chronic left shoulder pain Pain in joint, shoulder region 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 HYPERLIPIDEMIA MIXED Mixed hyperlipidemia Thrombocytopenia (HCC) Thrombocytopenia, unspecified Class 1 obesity without serious comorbidity with body mass index (BMI) of 34.0 to 34.9 in adult, unspecified obesity type Malignant neoplasm of lower lobe of right lung (HCC)- Primary Malignant neoplasm of lower lobe of right lung (HCC) Pre-procedure lab exam Pre-procedural laboratory examination [facility] Diagnosis Pre-operative exam- Primary Preoperative examination, unspecified Incomplete tear of left rotator cuff Rotator cuff (capsule) sprain Chronic left shoulder pain Pain in joint, shoulder region 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 HYPERLIPIDEMIA MIXED Mixed hyperlipidemia Thrombocytopenia (HCC) Thrombocytopenia, unspecified Class 1 obesity without serious comorbidity with body mass index (BMI) of 34.0 to 34.9 in adult, unspecified obesity type Malignant neoplasm of lower lobe of right lung (HCC)- Primary Malignant neoplasm of lower lobe of right lung (HCC) Pre-procedure lab exam Pre-procedural laboratory examination [facility]* Diagnosis Pre-operative exam- Primary Preoperative examination, unspecified Incomplete tear of left rotator cuff Rotator cuff (capsule) sprain Chronic left shoulder pain Pain in joint, shoulder region 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 HYPERLIPIDEMIA MIXED Mixed hyperlipidemia Thrombocytopenia (HCC) Thrombocytopenia, unspecified Class 1 obesity without serious comorbidity with body mass index (BMI) of 34.0 to 34.9 in adult, unspecified obesity type Non-small cell cancer of right lung (HCC)- Primary Malignant neoplasm of lower lobe of right lung (HCC) Pre-procedure lab exam Pre-procedural laboratory examination [facility]* Diagnosis Pre-operative exam- Primary Preoperative examination, unspecified Incomplete tear of left rotator cuff Rotator cuff (capsule) sprain Chronic left shoulder pain Pain in joint, shoulder region 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 HYPERLIPIDEMIA MIXED Mixed hyperlipidemia Thrombocytopenia (HCC) Thrombocytopenia, unspecified Class 1 obesity without serious comorbidity with body mass index (BMI) of 34.0 to 34.9 in adult, unspecified obesity type Examination of participant or control in clinical research- Primary Examination of participant in clinical trial Malignant neoplasm of lower lobe of right lung (HCC) Pre-procedure lab exam Pre-procedural laboratory examination [facility]* Diagnosis Pre-operative exam- Primary Preoperative examination, unspecified Incomplete tear of left rotator cuff Rotator cuff (capsule) sprain Chronic left shoulder pain Pain in joint, shoulder region 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 HYPERLIPIDEMIA MIXED Mixed hyperlipidemia Thrombocytopenia (HCC) Thrombocytopenia, unspecified Class 1 obesity without serious comorbidity with body mass index (BMI) of 34.0 to 34.9 in adult, unspecified obesity type Examination of participant or control in clinical research- Primary Examination of participant in clinical trial Other systemic lupus erythematosus with other organ involvement (HCC) Malignant neoplasm of lower lobe of right lung (HCC) Pre-procedure lab exam Pre-procedural laboratory examination documented in this encounter [facility] note* Diagnosis Pre-operative exam- Primary Preoperative examination, unspecified Incomplete tear of left rotator cuff Rotator cuff (capsule) sprain Chronic left shoulder pain Pain in joint, shoulder region 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 HYPERLIPIDEMIA MIXED Mixed hyperlipidemia Thrombocytopenia (HCC) Thrombocytopenia, unspecified Class 1 obesity without serious comorbidity with body mass index (BMI) of 34.0 to 34.9 in adult, unspecified obesity type CRISTINO (acute kidney injury) (HCC)- Primary Acute kidney failure, unspecified History of immunotherapy Non-small cell cancer of right lung (HCC) Malignant neoplasm of lower lobe of right lung (HCC) Pre-procedure lab exam Pre-procedural laboratory examination documented in this encounter [facility] note* Diagnosis Pre-operative exam- Primary Preoperative examination, unspecified Incomplete tear of left rotator cuff Rotator cuff (capsule) sprain Chronic left shoulder pain Pain in joint, shoulder region 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 HYPERLIPIDEMIA MIXED Mixed hyperlipidemia Thrombocytopenia (HCC) Thrombocytopenia, unspecified Class 1 obesity without serious comorbidity with body mass index (BMI) of 34.0 to 34.9 in adult, unspecified obesity type CRISTINO (acute kidney injury) (HCC)- Primary Acute kidney failure, unspecified Acute tubulo-interstitial nephritis Other acute glomerulonephritis with other specified pathological lesion in kidney Non-small cell cancer of right lung (HCC) Malignant neoplasm of lower lobe of right lung (HCC) Pre-procedure lab exam Pre-procedural laboratory examination documented in this encounter [facility] note* Diagnosis Pre-operative exam- Primary Preoperative examination, unspecified Incomplete tear of left rotator cuff Rotator cuff (capsule) sprain Chronic left shoulder pain Pain in joint, shoulder region 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 HYPERLIPIDEMIA MIXED Mixed hyperlipidemia Thrombocytopenia (HCC) Thrombocytopenia, unspecified Class 1 obesity without serious comorbidity with body mass index (BMI) of 34.0 to 34.9 in adult, unspecified obesity type Pre-op evaluation- Primary Preoperative examination, unspecified Obesity, Class I, BMI 30-34.9 Obesity, unspecified Systemic lupus erythematosus, unspecified SLE type, unspecified organ involvement status (HCC) Interstitial lung disease (HCC) Postinflammatory pulmonary fibrosis RODRIGO (obstructive sleep apnea) Obstructive sleep apnea (adult) (pediatric) HYPERLIPIDEMIA MIXED Mixed hyperlipidemia 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 Gastroesophageal reflux disease, unspecified whether esophagitis present Primary biliary cirrhosis (HCC) Biliary cirrhosis Hypomagnesemia 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 Other acute glomerulonephritis with other specified pathological lesion in kidney Leukocytosis, unspecified type Anemia, unspecified type Cutaneous lupus erythematosus Lupus erythematosus Malignant neoplasm of lower lobe of right lung (HCC) Pre-procedure lab exam Pre-procedural laboratory examination * Assessment & Plan Note - Nelda Chung PA-C - 03/18/2024 4:25 PM EST Associated Problem(s): Cutaneous lupus erythematosus Assessment: follows with derm, plaquenil on hold * Assessment & Plan Note - Nelda Chung PA-C - 03/18/2024 4:24 PM EST Associated Problem(s): Anemia Assessment: Most recent labs below: Hemoglobin Date Value Ref Range Status 03/18/2024 9.7 (L) 11.5 - 15.5 g/dL Final 03/12/2024 10.2 (L) 11.5 - 15.5 g/dL Final 03/05/2024 10.1 (L) 11.5 - 15.5 g/dL Final 03/03/2024 10.8 (L) 11.5 - 15.5 g/dL Final 02/11/2024 11.4 (L) 11.5 - 15.5 g/dL Final Advised patient to continue to follow with oncologist * Assessment & Plan Note - Nelda Chung PA-C - 03/18/2024 4:23 PM EST Associated Problem(s): Elevated WBC count Assessment: WBC Date Value Ref Range Status 03/18/2024 13.98 (H) 3.70 - 11.00 k/uL Final Patient denies UTI sxs or respiratory infection sxs. No fevers. Advised patient to discuss with oncologist at their next appt. Patient is currently on prednisone. * Assessment & Plan Note - Nelda Chung PA-C - 03/18/2024 4:22 PM EST Associated Problem(s): Acute tubulo-interstitial nephritis Assessment: hx Acute tubulo-interstitial nephritis/CRISTINO recently Follows with nephrology On prednisone, patient reports Dr. Feliciano is aware patient is on prednisone Most recent Cr Creatinine Date Value Ref Range Status 03/18/2024 1.54 (H) 0.58 - 0.96 mg/dL Final 03/12/2024 1.46 (H) 0.58 - 0.96 mg/dL Final 03/10/2024 1.61 (H) 0.58 - 0.96 mg/dL Final * Assessment & Plan Note - Nelda Chung PA-C - 03/18/2024 4:20 PM EST Associated Problem(s): Hypomagnesemia Assessment: Magnesium Date Value Ref Range Status 03/05/2024 1.5 (L) 1.7 - 2.3 mg/dL Final On magnesium supplement * Assessment & Plan Note - Nelda Chung PA-C - 03/18/2024 4:20 PM EST Associated Problem(s): Primary biliary cirrhosis (HCC) Assessment: follows with GI at [facility] * Assessment & Plan Note - Nelda Chung PA-C - 03/18/2024 4:19 PM EST Associated Problem(s): GERD (gastroesophageal reflux disease) Assessment: with spicy foods. On protonix. * Assessment & Plan Note - Nelda Chung PA-C - 03/18/2024 4:19 PM EST Associated Problem(s): Milton's esophagus with dysplasia Assessment: on protonix, follows with GI * Assessment & Plan Note - Nelda Chung PA-C - 03/18/2024 4:19 PM EST Associated Problem(s): Sclerosing cholangitis Assessment: HX sclerosing cholangitis, primary biliary cholangitis Follows with GI at [facility] * Assessment & Plan Note - Nelda Chung PA-C - 03/18/2024 4:18 PM EST Associated Problem(s): HYPERLIPIDEMIA MIXED Assessment: no current RX * Assessment & Plan Note - Nelda Chung PA-C - 03/18/2024 4:18 PM EST Associated Problem(s): RODRIGO (obstructive sleep apnea) Assessment: no CPAP/BiPAP use * Assessment & Plan Note - Nelda Chung PA-C - 03/18/2024 4:17 PM EST Associated Problem(s): Interstitial lung disease (HCC) Assessment: no current inhaler use Spo2 98% Lungs clear * Assessment & Plan Note - Nelda Chung PA-C - 03/18/2024 4:12 PM EST Associated Problem(s): Systemic lupus erythematosus (HCC) Assessment: follows with rheumatology and derm, plaquenil on hold per surgeons request per patient * Assessment & Plan Note - Nelda Chung PA-C - 03/18/2024 1:07 PM EST Associated Problem(s): Obesity, Class I, BMI 30-34.9 Assessment: Body mass index is 33.38 kg/m . 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 HYPERLIPIDEMIA MIXED Mixed hyperlipidemia Thrombocytopenia (HCC) Thrombocytopenia, unspecified Class 1 obesity without serious comorbidity with body mass index (BMI) of 34.0 to 34.9 in adult, unspecified obesity type Pre-op evaluation- Primary Preoperative examination, unspecified Obesity, Class I, BMI 30-34.9 Obesity, unspecified Systemic lupus erythematosus, unspecified SLE type, unspecified organ involvement status (HCC) Interstitial lung disease (HCC) Postinflammatory pulmonary fibrosis RODRIGO (obstructive sleep apnea) Obstructive sleep apnea (adult) (pediatric) HYPERLIPIDEMIA MIXED Mixed hyperlipidemia 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 Gastroesophageal reflux disease, unspecified whether esophagitis present Primary biliary cirrhosis (HCC) Biliary cirrhosis Hypomagnesemia 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 Other acute glomerulonephritis with other specified pathological lesion in kidney Leukocytosis, unspecified type Anemia, unspecified type Cutaneous lupus erythematosus Lupus erythematosus Malignant neoplasm of lower lobe of right lung (HCC) Pre-procedure lab exam Pre-procedural laboratory examination Malignant neoplasm of lower lobe of right lung (HCC) Pre-procedure lab exam Pre-procedural laboratory examination documented in this encounter [facility] note* Diagnosis Pre-operative exam- Primary Preoperative examination, unspecified Incomplete tear of left rotator cuff Rotator cuff (capsule) sprain Chronic left shoulder pain Pain in joint, shoulder region 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 HYPERLIPIDEMIA MIXED Mixed hyperlipidemia Thrombocytopenia (HCC) Thrombocytopenia, unspecified Class 1 obesity without serious comorbidity with body mass index (BMI) of 34.0 to 34.9 in adult, unspecified obesity type Pre-op evaluation- Primary Preoperative examination, unspecified Obesity, Class I, BMI 30-34.9 Obesity, unspecified Systemic lupus erythematosus, unspecified SLE type, unspecified organ involvement status (HCC) Interstitial lung disease (HCC) Postinflammatory pulmonary fibrosis RODRIGO (obstructive sleep apnea) Obstructive sleep apnea (adult) (pediatric) HYPERLIPIDEMIA MIXED Mixed hyperlipidemia 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 Gastroesophageal reflux disease, unspecified whether esophagitis present Primary biliary cirrhosis (HCC) Biliary cirrhosis Hypomagnesemia 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 Other acute glomerulonephritis with other specified pathological lesion in kidney Leukocytosis, unspecified type Anemia, unspecified type Cutaneous lupus erythematosus Lupus erythematosus Personal history of malignant neoplasm of bronchus and lung- Primary Malignant neoplasm of lower lobe of right lung (HCC) Pre-procedure lab exam Pre-procedural laboratory examination documented in this encounter [facility] note* Diagnosis Pre-operative exam- Primary Preoperative examination, unspecified Incomplete tear of left rotator cuff Rotator cuff (capsule) sprain Chronic left shoulder pain Pain in joint, shoulder region 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 HYPERLIPIDEMIA MIXED Mixed hyperlipidemia Thrombocytopenia (HCC) Thrombocytopenia, unspecified Class 1 obesity without serious comorbidity with body mass index (BMI) of 34.0 to 34.9 in adult, unspecified obesity type Pre-op evaluation- Primary Preoperative examination, unspecified Obesity, Class I, BMI 30-34.9 Obesity, unspecified Systemic lupus erythematosus, unspecified SLE type, unspecified organ involvement status (HCC) Interstitial lung disease (HCC) Postinflammatory pulmonary fibrosis RODRIGO (obstructive sleep apnea) Obstructive sleep apnea (adult) (pediatric) HYPERLIPIDEMIA MIXED Mixed hyperlipidemia 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 Gastroesophageal reflux disease, unspecified whether esophagitis present Primary biliary cirrhosis (HCC) Biliary cirrhosis Hypomagnesemia 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 Other acute glomerulonephritis with other specified pathological lesion in kidney Leukocytosis, unspecified type Anemia, unspecified type Cutaneous lupus erythematosus Lupus erythematosus Non-small cell cancer of right lung (HCC)- Primary Hypomagnesemia Disorders of magnesium metabolism Acute kidney injury (HCC) Acute kidney failure, unspecified Hypomagnesemia- Primary Disorders of magnesium metabolism Non-small cell cancer of right lung (HCC) Malignant neoplasm of lower lobe of right lung (HCC) Pre-procedure lab exam [facility]procedural laboratory [facility] Diagnosis Pre-operative exam- Primary Preoperative examination, unspecified Incomplete tear of left rotator cuff Rotator cuff (capsule) sprain Chronic left shoulder pain Pain in joint, shoulder region 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 HYPERLIPIDEMIA MIXED Mixed hyperlipidemia Thrombocytopenia (HCC) Thrombocytopenia, unspecified Class 1 obesity without serious comorbidity with body mass index (BMI) of 34.0 to 34.9 in adult, unspecified obesity type Pre-op evaluation- Primary Preoperative examination, unspecified Obesity, Class I, BMI 30-34.9 Obesity, unspecified Systemic lupus erythematosus, unspecified SLE type, unspecified organ involvement status (HCC) Interstitial lung disease (HCC) Postinflammatory pulmonary fibrosis RODRIGO (obstructive sleep apnea) Obstructive sleep apnea (adult) (pediatric) HYPERLIPIDEMIA MIXED Mixed hyperlipidemia 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 Gastroesophageal reflux disease, unspecified whether esophagitis present Primary biliary cirrhosis (HCC) Biliary cirrhosis Hypomagnesemia 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 Other acute glomerulonephritis with other specified pathological lesion in kidney Leukocytosis, unspecified type Anemia, unspecified type Cutaneous lupus erythematosus Lupus erythematosus Hypomagnesemia- Primary Disorders of magnesium metabolism Non-small cell cancer of right lung (HCC) Malignant neoplasm of lower lobe of right lung (HCC) Pre-procedure lab exam Pre-procedural laboratory examination documented in this encounter [facility] note* Diagnosis Pre-operative exam- Primary Preoperative examination, unspecified Incomplete tear of left rotator cuff Rotator cuff (capsule) sprain Chronic left shoulder pain Pain in joint, shoulder region 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 HYPERLIPIDEMIA MIXED Mixed hyperlipidemia Thrombocytopenia (HCC) Thrombocytopenia, unspecified Class 1 obesity without serious comorbidity with body mass index (BMI) of 34.0 to 34.9 in adult, unspecified obesity type Pre-op evaluation- Primary Preoperative examination, unspecified Obesity, Class I, BMI 30-34.9 Obesity, unspecified Systemic lupus erythematosus, unspecified SLE type, unspecified organ involvement status (HCC) Interstitial lung disease (HCC) Postinflammatory pulmonary fibrosis RODRIGO (obstructive sleep apnea) Obstructive sleep apnea (adult) (pediatric) HYPERLIPIDEMIA MIXED Mixed hyperlipidemia 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 Gastroesophageal reflux disease, unspecified whether esophagitis present Primary biliary cirrhosis (HCC) Biliary cirrhosis Hypomagnesemia 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 Other acute glomerulonephritis with other specified pathological lesion in kidney Leukocytosis, unspecified type Anemia, unspecified type Cutaneous lupus erythematosus Lupus erythematosus Non-small cell cancer of right lung (HCC)- Primary Hypomagnesemia Disorders of magnesium metabolism Malignant neoplasm of lower lobe of right lung (HCC) Pre-procedure lab exam [facility]procedural laboratory examination 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 HYPERLIPIDEMIA MIXED Mixed hyperlipidemia Thrombocytopenia (HCC) Thrombocytopenia, unspecified Class 1 obesity without serious comorbidity with body mass index (BMI) of 34.0 to 34.9 in adult, unspecified obesity type Pre-op evaluation- Primary Preoperative examination, unspecified Obesity, Class I, BMI 30-34.9 Obesity, unspecified Systemic lupus erythematosus, unspecified SLE type, unspecified organ involvement status (HCC) Interstitial lung disease (HCC) Postinflammatory pulmonary fibrosis RODRIGO (obstructive sleep apnea) Obstructive sleep apnea (adult) (pediatric) HYPERLIPIDEMIA MIXED Mixed hyperlipidemia 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 Gastroesophageal reflux disease, unspecified whether esophagitis present Primary biliary cirrhosis (HCC) Biliary cirrhosis Hypomagnesemia 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 Other acute glomerulonephritis with other specified pathological lesion in kidney Leukocytosis, unspecified type Anemia, unspecified type Cutaneous lupus erythematosus Lupus erythematosus Hypomagnesemia- Primary Disorders of magnesium metabolism Non-small cell cancer of right lung (HCC) Malignant neoplasm of lower lobe of right lung (HCC) Pre-procedure lab exam Pre-procedural laboratory examination documented in this encounter [facility] note* Diagnosis Pre-operative exam- Primary Preoperative examination, unspecified Incomplete tear of left rotator cuff Rotator cuff (capsule) sprain Chronic left shoulder pain Pain in joint, shoulder region 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 HYPERLIPIDEMIA MIXED Mixed hyperlipidemia Thrombocytopenia (HCC) Thrombocytopenia, unspecified Class 1 obesity without serious comorbidity with body mass index (BMI) of 34.0 to 34.9 in adult, unspecified obesity type Pre-op evaluation- Primary Preoperative examination, unspecified Obesity, Class I, BMI 30-34.9 Obesity, unspecified Systemic lupus erythematosus, unspecified SLE type, unspecified organ involvement status (HCC) Interstitial lung disease (HCC) Postinflammatory pulmonary fibrosis RODRIGO (obstructive sleep apnea) Obstructive sleep apnea (adult) (pediatric) HYPERLIPIDEMIA MIXED Mixed hyperlipidemia 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 Gastroesophageal reflux disease, unspecified whether esophagitis present Primary biliary cirrhosis (HCC) Biliary cirrhosis Hypomagnesemia 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 Other acute glomerulonephritis with other specified pathological lesion in kidney Leukocytosis, unspecified type Anemia, unspecified type Cutaneous lupus erythematosus Lupus erythematosus Hypomagnesemia- Primary Disorders of magnesium metabolism Malignant neoplasm of lower lobe of right lung (HCC) Pre-procedure lab exam Pre-procedural laboratory examination documented in this encounter [facility] note* Diagnosis Pre-operative exam- Primary Preoperative examination, unspecified Incomplete tear of left rotator cuff Rotator cuff (capsule) sprain Chronic left shoulder pain Pain in joint, shoulder region 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 HYPERLIPIDEMIA MIXED Mixed hyperlipidemia Thrombocytopenia (HCC) Thrombocytopenia, unspecified Class 1 obesity without serious comorbidity with body mass index (BMI) of 34.0 to 34.9 in adult, unspecified obesity type Pre-op evaluation- Primary Preoperative examination, unspecified Obesity, Class I, BMI 30-34.9 Obesity, unspecified Systemic lupus erythematosus, unspecified SLE type, unspecified organ involvement status (HCC) Interstitial lung disease (HCC) Postinflammatory pulmonary fibrosis RODRIGO (obstructive sleep apnea) Obstructive sleep apnea (adult) (pediatric) HYPERLIPIDEMIA MIXED Mixed hyperlipidemia 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 Gastroesophageal reflux disease, unspecified whether esophagitis present Primary biliary cirrhosis (HCC) Biliary cirrhosis Hypomagnesemia 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 Other acute glomerulonephritis with other specified pathological lesion in kidney Leukocytosis, unspecified type Anemia, unspecified type Cutaneous lupus erythematosus Lupus erythematosus Hypercalcemia- Primary Malignant neoplasm of lower lobe of right lung (HCC) Pre-procedure lab exam Pre-procedural laboratory examination [facility] Diagnosis Pre-operative exam- Primary Preoperative examination, unspecified Incomplete tear of left rotator cuff Rotator cuff (capsule) sprain Chronic left shoulder pain Pain in joint, shoulder region 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 HYPERLIPIDEMIA MIXED Mixed hyperlipidemia Thrombocytopenia (HCC) Thrombocytopenia, unspecified Class 1 obesity without serious comorbidity with body mass index (BMI) of 34.0 to 34.9 in adult, unspecified obesity type Pre-op evaluation- Primary Preoperative examination, unspecified Obesity, Class I, BMI 30-34.9 Obesity, unspecified Systemic lupus erythematosus, unspecified SLE type, unspecified organ involvement status (HCC) Interstitial lung disease (HCC) Postinflammatory pulmonary fibrosis RODRIGO (obstructive sleep apnea) Obstructive sleep apnea (adult) (pediatric) HYPERLIPIDEMIA MIXED Mixed hyperlipidemia 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 Gastroesophageal reflux disease, unspecified whether esophagitis present Primary biliary cirrhosis (HCC) Biliary cirrhosis Hypomagnesemia 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 Other acute glomerulonephritis with other specified pathological lesion in kidney Leukocytosis, unspecified type Anemia, unspecified type Cutaneous lupus erythematosus Lupus erythematosus Stage 3a chronic kidney disease (HCC)- Primary Low magnesium level Hypothyroidism, acquired Unspecified hypothyroidism Systemic lupus erythematosus, unspecified SLE type, unspecified organ involvement status (HCC) Primary biliary cirrhosis (HCC) Biliary cirrhosis Lung nodule Solitary pulmonary nodule Malignant neoplasm of lower lobe of right lung (HCC) Pre-procedure lab exam Pre-procedural laboratory examination documented in this encounter [facility] note* Diagnosis Pre-operative exam- Primary Preoperative examination, unspecified Incomplete tear of left rotator cuff Rotator cuff (capsule) sprain Chronic left shoulder pain Pain in joint, shoulder region 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 HYPERLIPIDEMIA MIXED Mixed hyperlipidemia Thrombocytopenia (HCC) Thrombocytopenia, unspecified Class 1 obesity without serious comorbidity with body mass index (BMI) of 34.0 to 34.9 in adult, unspecified obesity type Pre-op evaluation- Primary Preoperative examination, unspecified Obesity, Class I, BMI 30-34.9 Obesity, unspecified Systemic lupus erythematosus, unspecified SLE type, unspecified organ involvement status (HCC) Interstitial lung disease (HCC) Postinflammatory pulmonary fibrosis RODRIGO (obstructive sleep apnea) Obstructive sleep apnea (adult) (pediatric) HYPERLIPIDEMIA MIXED Mixed hyperlipidemia 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 Gastroesophageal reflux disease, unspecified whether esophagitis present Primary biliary cirrhosis (HCC) Biliary cirrhosis Hypomagnesemia 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 Other acute glomerulonephritis with other specified pathological lesion in kidney Leukocytosis, unspecified type Anemia, unspecified type Cutaneous lupus erythematosus Lupus erythematosus Non-small cell cancer of right lung (HCC)- Primary CRISTINO (acute kidney injury) (HCC) Acute kidney failure, unspecified LFT elevation Other abnormal blood chemistry Malignant neoplasm of lower lobe of right lung (HCC) Pre-procedure lab exam Pre-procedural laboratory examination [facility] Diagnosis Pre-operative exam- Primary Preoperative examination, unspecified Incomplete tear of left rotator cuff Rotator cuff (capsule) sprain Chronic left shoulder pain Pain in joint, shoulder region 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 HYPERLIPIDEMIA MIXED Mixed hyperlipidemia Thrombocytopenia (HCC) Thrombocytopenia, unspecified Class 1 obesity without serious comorbidity with body mass index (BMI) of 34.0 to 34.9 in adult, unspecified obesity type Pre-op evaluation- Primary Preoperative examination, unspecified Obesity, Class I, BMI 30-34.9 Obesity, unspecified Systemic lupus erythematosus, unspecified SLE type, unspecified organ involvement status (HCC) Interstitial lung disease (HCC) Postinflammatory pulmonary fibrosis RODRIGO (obstructive sleep apnea) Obstructive sleep apnea (adult) (pediatric) HYPERLIPIDEMIA MIXED Mixed hyperlipidemia 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 Gastroesophageal reflux disease, unspecified whether esophagitis present Primary biliary cirrhosis (HCC) Biliary cirrhosis Hypomagnesemia 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 Other acute glomerulonephritis with other specified pathological lesion in kidney Leukocytosis, unspecified type Anemia, unspecified type Cutaneous lupus erythematosus Lupus erythematosus Non-small cell cancer of right lung (HCC) Malignant neoplasm of lower lobe of right lung (HCC) Pre-procedure lab exam Pre-procedural laboratory examination [facility] Diagnosis Pre-operative exam- Primary Preoperative examination, unspecified Incomplete tear of left rotator cuff Rotator cuff (capsule) sprain Chronic left shoulder pain Pain in joint, shoulder region 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 HYPERLIPIDEMIA MIXED Mixed hyperlipidemia Thrombocytopenia (HCC) Thrombocytopenia, unspecified Class 1 obesity without serious comorbidity with body mass index (BMI) of 34.0 to 34.9 in adult, unspecified obesity type Pre-op evaluation- Primary Preoperative examination, unspecified Obesity, Class I, BMI 30-34.9 Obesity, unspecified Systemic lupus erythematosus, unspecified SLE type, unspecified organ involvement status (HCC) Interstitial lung disease (HCC) Postinflammatory pulmonary fibrosis RODRIGO (obstructive sleep apnea) Obstructive sleep apnea (adult) (pediatric) HYPERLIPIDEMIA MIXED Mixed hyperlipidemia 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 Gastroesophageal reflux disease, unspecified whether esophagitis present Primary biliary cirrhosis (HCC) Biliary cirrhosis Hypomagnesemia 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 Other acute glomerulonephritis with other specified pathological lesion in kidney Leukocytosis, unspecified type Anemia, unspecified type Cutaneous lupus erythematosus Lupus erythematosus Elevated LFTs- Primary Other abnormal blood chemistry Malignant neoplasm of lower lobe of right lung (HCC) Pre-procedure lab exam [facility]cedural 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 HYPERLIPIDEMIA MIXED Mixed hyperlipidemia Thrombocytopenia (HCC) Thrombocytopenia, unspecified Class 1 obesity without serious comorbidity with body mass index (BMI) of 34.0 to 34.9 in adult, unspecified obesity type Pre-op evaluation- Primary Preoperative examination, unspecified Obesity, Class I, BMI 30-34.9 Obesity, unspecified Systemic lupus erythematosus, unspecified SLE type, unspecified organ involvement status (HCC) Interstitial lung disease (HCC) Postinflammatory pulmonary fibrosis RODRIGO (obstructive sleep apnea) Obstructive sleep apnea (adult) (pediatric) HYPERLIPIDEMIA MIXED Mixed hyperlipidemia 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 Gastroesophageal reflux disease, unspecified whether esophagitis present Primary biliary cirrhosis (HCC) Biliary cirrhosis Hypomagnesemia 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 Other acute glomerulonephritis with other specified pathological lesion in kidney Leukocytosis, unspecified type Anemia, unspecified type Cutaneous lupus erythematosus Lupus erythematosus Hypomagnesemia- Primary Disorders of magnesium metabolism Non-small cell cancer of right lung (HCC) Malignant neoplasm of lower lobe of right lung (HCC) Pre-procedure lab exam Pre-procedural laboratory examination [facility] Diagnosis Pre-operative exam- Primary Preoperative examination, unspecified Incomplete tear of left rotator cuff Rotator cuff (capsule) sprain Chronic left shoulder pain Pain in joint, shoulder region 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 HYPERLIPIDEMIA MIXED Mixed hyperlipidemia Thrombocytopenia (HCC) Thrombocytopenia, unspecified Class 1 obesity without serious comorbidity with body mass index (BMI) of 34.0 to 34.9 in adult, unspecified obesity type Pre-op evaluation- Primary Preoperative examination, unspecified Obesity, Class I, BMI 30-34.9 Obesity, unspecified Systemic lupus erythematosus, unspecified SLE type, unspecified organ involvement status (HCC) Interstitial lung disease (HCC) Postinflammatory pulmonary fibrosis RODRIGO (obstructive sleep apnea) Obstructive sleep apnea (adult) (pediatric) HYPERLIPIDEMIA MIXED Mixed hyperlipidemia 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 Gastroesophageal reflux disease, unspecified whether esophagitis present Primary biliary cirrhosis (HCC) Biliary cirrhosis Hypomagnesemia 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 Other acute glomerulonephritis with other specified pathological lesion in kidney Leukocytosis, unspecified type Anemia, unspecified type Cutaneous lupus erythematosus Lupus erythematosus Elevated LFTs Other abnormal blood chemistry Malignant neoplasm of lower lobe of right lung (HCC) Pre-procedure lab exam Pre-procedural laboratory examination documented in this encounter [facility] note* Diagnosis Pre-operative exam- Primary Preoperative examination, unspecified Incomplete tear of left rotator cuff Rotator cuff (capsule) sprain Chronic left shoulder pain Pain in joint, shoulder region 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 HYPERLIPIDEMIA MIXED Mixed hyperlipidemia Thrombocytopenia Thrombocytopenia, unspecified Class 1 obesity without serious comorbidity with body mass index (BMI) of 34.0 to 34.9 in adult, unspecified obesity type Pre-op evaluation- Primary Preoperative examination, unspecified Obesity, Class I, BMI 30-34.9 Obesity, unspecified Systemic lupus erythematosus, unspecified SLE type, unspecified organ involvement status (HCC) Interstitial lung disease (HCC) Postinflammatory pulmonary fibrosis RODRIGO (obstructive sleep apnea) Obstructive sleep apnea (adult) (pediatric) HYPERLIPIDEMIA MIXED Mixed hyperlipidemia Sclerosing cholangitis (HCC) Cholangitis Milton's esophagus with dysplasia Milton's esophagus Gastroesophageal reflux disease, unspecified whether esophagitis present Primary biliary cirrhosis (HCC) Biliary cirrhosis Hypomagnesemia 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 Other acute glomerulonephritis with other specified pathological lesion in kidney Leukocytosis, unspecified type Anemia, unspecified type Cutaneous lupus erythematosus Lupus erythematosus Malignant neoplasm of lower lobe of right lung (HCC)- Primary Non-small cell cancer of right lung (HCC) Lung nodule Solitary pulmonary nodule documented in this encounter [facility] note* Diagnosis Pre-operative exam- Primary Preoperative examination, unspecified Incomplete tear of left rotator cuff Rotator cuff (capsule) sprain Chronic left shoulder pain Pain in joint, shoulder region 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 HYPERLIPIDEMIA MIXED Mixed hyperlipidemia Thrombocytopenia Thrombocytopenia, unspecified Class 1 obesity without serious comorbidity with body mass index (BMI) of 34.0 to 34.9 in adult, unspecified obesity type Pre-op evaluation- Primary Preoperative examination, unspecified Obesity, Class I, BMI 30-34.9 Obesity, unspecified Systemic lupus erythematosus, unspecified SLE type, unspecified organ involvement status (HCC) Interstitial lung disease (HCC) Postinflammatory pulmonary fibrosis RODRIGO (obstructive sleep apnea) Obstructive sleep apnea (adult) (pediatric) HYPERLIPIDEMIA MIXED Mixed hyperlipidemia Sclerosing cholangitis (HCC) Cholangitis Milton's esophagus with dysplasia Milton's esophagus Gastroesophageal reflux disease, unspecified whether esophagitis present Primary biliary cirrhosis (HCC) Biliary cirrhosis Hypomagnesemia 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 Other acute glomerulonephritis with other specified pathological lesion in kidney Leukocytosis, unspecified type Anemia, unspecified type Cutaneous lupus erythematosus Lupus erythematosus Malignant neoplasm of lower lobe of right lung (HCC) Lung nodule Solitary pulmonary nodule documented in this encounter [facility] note* Diagnosis Pre-operative exam- Primary Preoperative examination, unspecified Incomplete tear of left rotator cuff Rotator cuff (capsule) sprain Chronic left shoulder pain Pain in joint, shoulder region 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 HYPERLIPIDEMIA MIXED Mixed hyperlipidemia Thrombocytopenia Thrombocytopenia, unspecified Class 1 obesity without serious comorbidity with body mass index (BMI) of 34.0 to 34.9 in adult, unspecified obesity type Pre-op evaluation- Primary Preoperative examination, unspecified Obesity, Class I, BMI 30-34.9 Obesity, unspecified Systemic lupus erythematosus, unspecified SLE type, unspecified organ involvement status (HCC) Interstitial lung disease (HCC) Postinflammatory pulmonary fibrosis RODRIGO (obstructive sleep apnea) Obstructive sleep apnea (adult) (pediatric) HYPERLIPIDEMIA MIXED Mixed hyperlipidemia Sclerosing cholangitis (HCC) Cholangitis Milton's esophagus with dysplasia Milton's esophagus Gastroesophageal reflux disease, unspecified whether esophagitis present Primary biliary cirrhosis (HCC) Biliary cirrhosis Hypomagnesemia 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 Other acute glomerulonephritis with other specified pathological lesion in kidney Leukocytosis, unspecified type Anemia, unspecified type Cutaneous lupus erythematosus Lupus erythematosus Malignant neoplasm of lower lobe of right lung (HCC) documented in this encounter [facility] note* Diagnosis Pre-operative exam- Primary Preoperative examination, unspecified Incomplete tear of left rotator cuff Rotator cuff (capsule) sprain Chronic left shoulder pain Pain in joint, shoulder region 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 HYPERLIPIDEMIA MIXED Mixed hyperlipidemia Thrombocytopenia Thrombocytopenia, unspecified Class 1 obesity without serious comorbidity with body mass index (BMI) of 34.0 to 34.9 in adult, unspecified obesity type Pre-op evaluation- Primary Preoperative examination, unspecified Obesity, Class I, BMI 30-34.9 Obesity, unspecified Systemic lupus erythematosus, unspecified SLE type, unspecified organ involvement status (HCC) Interstitial lung disease (HCC) Postinflammatory pulmonary fibrosis RODRIGO (obstructive sleep apnea) Obstructive sleep apnea (adult) (pediatric) HYPERLIPIDEMIA MIXED Mixed hyperlipidemia Sclerosing cholangitis (HCC) Cholangitis Milton's esophagus with dysplasia Milton's esophagus Gastroesophageal reflux disease, unspecified whether esophagitis present Primary biliary cirrhosis (HCC) Biliary cirrhosis Hypomagnesemia 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 Other acute glomerulonephritis with other specified pathological lesion in kidney Leukocytosis, unspecified type Anemia, unspecified type Cutaneous lupus erythematosus Lupus erythematosus Malignant neoplasm of lower lobe of right lung (HCC)- Primary documented in this encounter [facility] note* Diagnosis Pre-operative exam- Primary Preoperative examination, unspecified Incomplete tear of left rotator cuff Rotator cuff (capsule) sprain Chronic left shoulder pain Pain in joint, shoulder region 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 HYPERLIPIDEMIA MIXED Mixed hyperlipidemia Thrombocytopenia Thrombocytopenia, unspecified Class 1 obesity without serious comorbidity with body mass index (BMI) of 34.0 to 34.9 in adult, unspecified obesity type Pre-op evaluation- Primary Preoperative examination, unspecified Obesity, Class I, BMI 30-34.9 Obesity, unspecified Systemic lupus erythematosus, unspecified SLE type, unspecified organ involvement status (HCC) Interstitial lung disease (HCC) Postinflammatory pulmonary fibrosis RODRIGO (obstructive sleep apnea) Obstructive sleep apnea (adult) (pediatric) HYPERLIPIDEMIA MIXED Mixed hyperlipidemia Sclerosing cholangitis (HCC) Cholangitis Milton's esophagus with dysplasia Milton's esophagus Gastroesophageal reflux disease, unspecified whether esophagitis present Primary biliary cirrhosis (HCC) Biliary cirrhosis Hypomagnesemia 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 Other acute glomerulonephritis with other specified pathological lesion in kidney Leukocytosis, unspecified type Anemia, unspecified type Cutaneous lupus erythematosus Lupus erythematosus Non-small cell cancer of right lung (HCC)- Primary CRISTINO (acute kidney injury) Acute kidney failure, unspecified Primary biliary cirrhosis (HCC) [facility] Diagnosis Pre-operative exam- Primary Preoperative examination, unspecified Incomplete tear of left rotator cuff Rotator cuff (capsule) sprain Chronic left shoulder pain Pain in joint, shoulder region 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 HYPERLIPIDEMIA MIXED Mixed hyperlipidemia Thrombocytopenia Thrombocytopenia, unspecified Class 1 obesity without serious comorbidity with body mass index (BMI) of 34.0 to 34.9 in adult, unspecified obesity type Pre-op evaluation- Primary Preoperative examination, unspecified Obesity, Class I, BMI 30-34.9 Obesity, unspecified Systemic lupus erythematosus, unspecified SLE type, unspecified organ involvement status (HCC) Interstitial lung disease (HCC) Postinflammatory pulmonary fibrosis RODRIGO (obstructive sleep apnea) Obstructive sleep apnea (adult) (pediatric) HYPERLIPIDEMIA MIXED Mixed hyperlipidemia Sclerosing cholangitis (HCC) Cholangitis Milton's esophagus with dysplasia Milton's esophagus Gastroesophageal reflux disease, unspecified whether esophagitis present Primary biliary cirrhosis (HCC) Biliary cirrhosis Hypomagnesemia 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 Other acute glomerulonephritis with other specified pathological lesion in kidney Leukocytosis, unspecified type Anemia, unspecified type Cutaneous lupus erythematosus Lupus erythematosus Chest discomfort- Primary Other chest pain Acute pain of right shoulder Strain of left trapezius muscle, subsequent encounter [facility]* Diagnosis Pre-operative exam- Primary Preoperative examination, unspecified Incomplete tear of left rotator cuff Rotator cuff (capsule) sprain Chronic left shoulder pain Pain in joint, shoulder region 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 HYPERLIPIDEMIA MIXED Mixed hyperlipidemia Thrombocytopenia Thrombocytopenia, unspecified Class 1 obesity without serious comorbidity with body mass index (BMI) of 34.0 to 34.9 in adult, unspecified obesity type Pre-op evaluation- Primary Preoperative examination, unspecified Obesity, Class I, BMI 30-34.9 Obesity, unspecified Systemic lupus erythematosus, unspecified SLE type, unspecified organ involvement status (HCC) Interstitial lung disease (HCC) Postinflammatory pulmonary fibrosis RODRIGO (obstructive sleep apnea) Obstructive sleep apnea (adult) (pediatric) HYPERLIPIDEMIA MIXED Mixed hyperlipidemia Sclerosing cholangitis (HCC) Cholangitis Milton's esophagus with dysplasia Milton's esophagus Gastroesophageal reflux disease, unspecified whether esophagitis present Primary biliary cirrhosis (HCC) Biliary cirrhosis Hypomagnesemia 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 Other acute glomerulonephritis with other specified pathological lesion in kidney Leukocytosis, unspecified type Anemia, unspecified type Cutaneous lupus erythematosus Lupus erythematosus Hypothyroidism, acquired- Primary Unspecified hypothyroidism [facility]* Diagnosis Pre-operative exam- Primary Preoperative examination, unspecified Incomplete tear of left rotator cuff Rotator cuff (capsule) sprain Chronic left shoulder pain Pain in joint, shoulder region 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 HYPERLIPIDEMIA MIXED Mixed hyperlipidemia Thrombocytopenia Thrombocytopenia, unspecified Class 1 obesity without serious comorbidity with body mass index (BMI) of 34.0 to 34.9 in adult, unspecified obesity type Pre-op evaluation- Primary Preoperative examination, unspecified Obesity, Class I, BMI 30-34.9 Obesity, unspecified Systemic lupus erythematosus, unspecified SLE type, unspecified organ involvement status (HCC) Interstitial lung disease (HCC) Postinflammatory pulmonary fibrosis RODRIGO (obstructive sleep apnea) Obstructive sleep apnea (adult) (pediatric) HYPERLIPIDEMIA MIXED Mixed hyperlipidemia Sclerosing cholangitis (HCC) Cholangitis Milton's esophagus with dysplasia Milton's esophagus Gastroesophageal reflux disease, unspecified whether esophagitis present Primary biliary cirrhosis (HCC) Biliary cirrhosis Hypomagnesemia 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 Other acute glomerulonephritis with other specified pathological lesion in kidney Leukocytosis, unspecified type Anemia, unspecified type Cutaneous lupus erythematosus Lupus erythematosus Non-small cell cancer of right lung (HCC)- Primary [facility]* Diagnosis Pre-operative exam- Primary Preoperative examination, unspecified Incomplete tear of left rotator cuff Rotator cuff (capsule) sprain Chronic left shoulder pain Pain in joint, shoulder region 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 HYPERLIPIDEMIA MIXED Mixed hyperlipidemia Thrombocytopenia Thrombocytopenia, unspecified Class 1 obesity without serious comorbidity with body mass index (BMI) of 34.0 to 34.9 in adult, unspecified obesity type Pre-op evaluation- Primary Preoperative examination, unspecified Obesity, Class I, BMI 30-34.9 Obesity, unspecified Systemic lupus erythematosus, unspecified SLE type, unspecified organ involvement status (HCC) Interstitial lung disease (HCC) Postinflammatory pulmonary fibrosis RODRIGO (obstructive sleep apnea) Obstructive sleep apnea (adult) (pediatric) HYPERLIPIDEMIA MIXED Mixed hyperlipidemia Sclerosing cholangitis (HCC) Cholangitis Milton's esophagus with dysplasia Milton's esophagus Gastroesophageal reflux disease, unspecified whether esophagitis present Primary biliary cirrhosis (HCC) Biliary cirrhosis Hypomagnesemia 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 Other acute glomerulonephritis with other specified pathological lesion in kidney Leukocytosis, unspecified type Anemia, unspecified type Cutaneous lupus erythematosus Lupus erythematosus Primary biliary cirrhosis (HCC)- Primary Biliary cirrhosis Adenomyomatosis of gallbladder Non-small cell cancer of right lung (HCC) documented in this encounter [facility] note* Diagnosis Pre-operative exam- Primary Preoperative examination, unspecified Incomplete tear of left rotator cuff Rotator cuff (capsule) sprain Chronic left shoulder pain Pain in joint, shoulder region 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 HYPERLIPIDEMIA MIXED Mixed hyperlipidemia Thrombocytopenia Thrombocytopenia, unspecified Class 1 obesity without serious comorbidity with body mass index (BMI) of 34.0 to 34.9 in adult, unspecified obesity type Pre-op evaluation- Primary Preoperative examination, unspecified Obesity, Class I, BMI 30-34.9 Obesity, unspecified Systemic lupus erythematosus, unspecified SLE type, unspecified organ involvement status (HCC) Interstitial lung disease (HCC) Postinflammatory pulmonary fibrosis RODRIGO (obstructive sleep apnea) Obstructive sleep apnea (adult) (pediatric) HYPERLIPIDEMIA MIXED Mixed hyperlipidemia Sclerosing cholangitis (HCC) Cholangitis Milton's esophagus with dysplasia Milton's esophagus Gastroesophageal reflux disease, unspecified whether esophagitis present Primary biliary cirrhosis (HCC) Biliary cirrhosis Hypomagnesemia 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 Other acute glomerulonephritis with other specified pathological lesion in kidney Leukocytosis, unspecified type Anemia, unspecified type Cutaneous lupus erythematosus Lupus erythematosus Non-small cell cancer of right lung (HCC)- Primary documented in this encounter [facility] note* Diagnosis Pre-operative exam- Primary Preoperative examination, unspecified Incomplete tear of left rotator cuff Rotator cuff (capsule) sprain Chronic left shoulder pain Pain in joint, shoulder region 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 HYPERLIPIDEMIA MIXED Mixed hyperlipidemia Thrombocytopenia Thrombocytopenia, unspecified Class 1 obesity without serious comorbidity with body mass index (BMI) of 34.0 to 34.9 in adult, unspecified obesity type Pre-op evaluation- Primary Preoperative examination, unspecified Obesity, Class I, BMI 30-34.9 Obesity, unspecified Systemic lupus erythematosus, unspecified SLE type, unspecified organ involvement status (HCC) Interstitial lung disease (HCC) Postinflammatory pulmonary fibrosis RODRIGO (obstructive sleep apnea) Obstructive sleep apnea (adult) (pediatric) HYPERLIPIDEMIA MIXED Mixed hyperlipidemia Sclerosing cholangitis (HCC) Cholangitis Milton's esophagus with dysplasia Milton's esophagus Gastroesophageal reflux disease, unspecified whether esophagitis present Primary biliary cirrhosis (HCC) Biliary cirrhosis Hypomagnesemia 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 Other acute glomerulonephritis with other specified pathological lesion in kidney Leukocytosis, unspecified type Anemia, unspecified type Cutaneous lupus erythematosus Lupus erythematosus Primary biliary cirrhosis (HCC)- Primary Biliary cirrhosis documented in this encounter [facility] note* Diagnosis Pre-operative exam- Primary Preoperative examination, unspecified Incomplete tear of left rotator cuff Rotator cuff (capsule) sprain Chronic left shoulder pain Pain in joint, shoulder region 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 HYPERLIPIDEMIA MIXED Mixed hyperlipidemia Thrombocytopenia Thrombocytopenia, unspecified Class 1 obesity without serious comorbidity with body mass index (BMI) of 34.0 to 34.9 in adult, unspecified obesity type Pre-op evaluation- Primary Preoperative examination, unspecified Obesity, Class I, BMI 30-34.9 Obesity, unspecified Systemic lupus erythematosus, unspecified SLE type, unspecified organ involvement status (HCC) Interstitial lung disease (HCC) Postinflammatory pulmonary fibrosis RODRIGO (obstructive sleep apnea) Obstructive sleep apnea (adult) (pediatric) HYPERLIPIDEMIA MIXED Mixed hyperlipidemia Sclerosing cholangitis (HCC) Cholangitis Milton's esophagus with dysplasia Milton's esophagus Gastroesophageal reflux disease, unspecified whether esophagitis present Primary biliary cirrhosis (HCC) Biliary cirrhosis Hypomagnesemia 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 Other acute glomerulonephritis with other specified pathological lesion in kidney Leukocytosis, unspecified type Anemia, unspecified type Cutaneous lupus erythematosus Lupus erythematosus Malignant neoplasm of lower lobe of right lung (HCC) documented in this encounter [facility] note* Diagnosis Pre-operative exam- Primary Preoperative examination, unspecified Incomplete tear of left rotator cuff Rotator cuff (capsule) sprain Chronic left shoulder pain Pain in joint, shoulder region 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 HYPERLIPIDEMIA MIXED Mixed hyperlipidemia Thrombocytopenia Thrombocytopenia, unspecified Class 1 obesity without serious comorbidity with body mass index (BMI) of 34.0 to 34.9 in adult, unspecified obesity type Pre-op evaluation- Primary Preoperative examination, unspecified Obesity, Class I, BMI 30-34.9 Obesity, unspecified Systemic lupus erythematosus, unspecified SLE type, unspecified organ involvement status (HCC) Interstitial lung disease (HCC) Postinflammatory pulmonary fibrosis RODRIGO (obstructive sleep apnea) Obstructive sleep apnea (adult) (pediatric) HYPERLIPIDEMIA MIXED Mixed hyperlipidemia Sclerosing cholangitis (HCC) Cholangitis Milton's esophagus with dysplasia Milton's esophagus Gastroesophageal reflux disease, unspecified whether esophagitis present Primary biliary cirrhosis (HCC) Biliary cirrhosis Hypomagnesemia 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 Other acute glomerulonephritis with other specified pathological lesion in kidney Leukocytosis, unspecified type Anemia, unspecified type Cutaneous lupus erythematosus Lupus erythematosus Malignant neoplasm of lower lobe of right lung (HCC)- Primary Pleural effusion Unspecified pleural effusion [facility] Diagnosis Pre-operative exam- Primary Preoperative examination, unspecified Incomplete tear of left rotator cuff Rotator cuff (capsule) sprain Chronic left shoulder pain Pain in joint, shoulder region 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 HYPERLIPIDEMIA MIXED Mixed hyperlipidemia Thrombocytopenia Thrombocytopenia, unspecified Class 1 obesity without serious comorbidity with body mass index (BMI) of 34.0 to 34.9 in adult, unspecified obesity type Pre-op evaluation- Primary Preoperative examination, unspecified Obesity, Class I, BMI 30-34.9 Obesity, unspecified Systemic lupus erythematosus, unspecified SLE type, unspecified organ involvement status (HCC) Interstitial lung disease (HCC) Postinflammatory pulmonary fibrosis RODRIGO (obstructive sleep apnea) Obstructive sleep apnea (adult) (pediatric) HYPERLIPIDEMIA MIXED Mixed hyperlipidemia Sclerosing cholangitis (HCC) Cholangitis Milton's esophagus with dysplasia Milton's esophagus Gastroesophageal reflux disease, unspecified whether esophagitis present Primary biliary cirrhosis (HCC) Biliary cirrhosis Hypomagnesemia 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 Other acute glomerulonephritis with other specified pathological lesion in kidney Leukocytosis, unspecified type Anemia, unspecified type Cutaneous lupus erythematosus Lupus erythematosus Non-small cell cancer of right lung (HCC)- Primary documented in this encounter [facility] note* Diagnosis Pre-operative exam- Primary Preoperative examination, unspecified Incomplete tear of left rotator cuff Rotator cuff (capsule) sprain Chronic left shoulder pain Pain in joint, shoulder region 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 HYPERLIPIDEMIA MIXED Mixed hyperlipidemia Thrombocytopenia Thrombocytopenia, unspecified Class 1 obesity without serious comorbidity with body mass index (BMI) of 34.0 to 34.9 in adult, unspecified obesity type Pre-op evaluation- Primary Preoperative examination, unspecified Obesity, Class I, BMI 30-34.9 Obesity, unspecified Systemic lupus erythematosus, unspecified SLE type, unspecified organ involvement status (HCC) Interstitial lung disease (HCC) Postinflammatory pulmonary fibrosis RODRIGO (obstructive sleep apnea) Obstructive sleep apnea (adult) (pediatric) HYPERLIPIDEMIA MIXED Mixed hyperlipidemia Sclerosing cholangitis (HCC) Cholangitis Milton's esophagus with dysplasia Milton's esophagus Gastroesophageal reflux disease, unspecified whether esophagitis present Primary biliary cirrhosis (HCC) Biliary cirrhosis Hypomagnesemia 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 Other acute glomerulonephritis with other specified pathological lesion in kidney Leukocytosis, unspecified type Anemia, unspecified type Cutaneous lupus erythematosus Lupus erythematosus Non-small cell cancer of right lung (HCC)- Primary documented in this encounter [facility] note* Diagnosis Pre-operative exam- Primary Preoperative examination, unspecified Incomplete tear of left rotator cuff Rotator cuff (capsule) sprain Chronic left shoulder pain Pain in joint, shoulder region 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 HYPERLIPIDEMIA MIXED Mixed hyperlipidemia Thrombocytopenia Thrombocytopenia, unspecified Class 1 obesity without serious comorbidity with body mass index (BMI) of 34.0 to 34.9 in adult, unspecified obesity type Pre-op evaluation- Primary Preoperative examination, unspecified Obesity, Class I, BMI 30-34.9 Obesity, unspecified Systemic lupus erythematosus, unspecified SLE type, unspecified organ involvement status (HCC) Interstitial lung disease (HCC) Postinflammatory pulmonary fibrosis RODRIGO (obstructive sleep apnea) Obstructive sleep apnea (adult) (pediatric) HYPERLIPIDEMIA MIXED Mixed hyperlipidemia Sclerosing cholangitis (HCC) Cholangitis Milton's esophagus with dysplasia Milton's esophagus Gastroesophageal reflux disease, unspecified whether esophagitis present Primary biliary cirrhosis (HCC) Biliary cirrhosis Hypomagnesemia 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 Other acute glomerulonephritis with other specified pathological lesion in kidney Leukocytosis, unspecified type Anemia, unspecified type Cutaneous lupus erythematosus Lupus erythematosus Hypothyroidism, acquired Unspecified hypothyroidism documented in this encounter [facility] note* Diagnosis Pre-operative exam- Primary Preoperative examination, unspecified Incomplete tear of left rotator cuff Rotator cuff (capsule) sprain Chronic left shoulder pain Pain in joint, shoulder region 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 HYPERLIPIDEMIA MIXED Mixed hyperlipidemia Thrombocytopenia Thrombocytopenia, unspecified Class 1 obesity without serious comorbidity with body mass index (BMI) of 34.0 to 34.9 in adult, unspecified obesity type Pre-op evaluation- Primary Preoperative examination, unspecified Obesity, Class I, BMI 30-34.9 Obesity, unspecified Systemic lupus erythematosus, unspecified SLE type, unspecified organ involvement status (HCC) Interstitial lung disease (HCC) Postinflammatory pulmonary fibrosis RODRIGO (obstructive sleep apnea) Obstructive sleep apnea (adult) (pediatric) HYPERLIPIDEMIA MIXED Mixed hyperlipidemia Sclerosing cholangitis (HCC) Cholangitis Milton's esophagus with dysplasia Milton's esophagus Gastroesophageal reflux disease, unspecified whether esophagitis present Primary biliary cirrhosis (HCC) Biliary cirrhosis Hypomagnesemia 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 Other acute glomerulonephritis with other specified pathological lesion in kidney Leukocytosis, unspecified type Anemia, unspecified type Cutaneous lupus erythematosus Lupus erythematosus Non-small cell cancer of right lung (HCC)- Primary Chest wall pain Painful respiration documented in this encounter [facility] note* Diagnosis Pre-operative exam- Primary Preoperative examination, unspecified Incomplete tear of left rotator cuff Rotator cuff (capsule) sprain Chronic left shoulder pain Pain in joint, shoulder region 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 HYPERLIPIDEMIA MIXED Mixed hyperlipidemia Thrombocytopenia Thrombocytopenia, unspecified Class 1 obesity without serious comorbidity with body mass index (BMI) of 34.0 to 34.9 in adult, unspecified obesity type Pre-op evaluation- Primary Preoperative examination, unspecified Obesity, Class I, BMI 30-34.9 Obesity, unspecified Systemic lupus erythematosus, unspecified SLE type, unspecified organ involvement status (HCC) Interstitial lung disease (HCC) Postinflammatory pulmonary fibrosis RODRIGO (obstructive sleep apnea) Obstructive sleep apnea (adult) (pediatric) HYPERLIPIDEMIA MIXED Mixed hyperlipidemia Sclerosing cholangitis (HCC) Cholangitis Milton's esophagus with dysplasia Milton's esophagus Gastroesophageal reflux disease, unspecified whether esophagitis present Primary biliary cirrhosis (HCC) Biliary cirrhosis Hypomagnesemia 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 Other acute glomerulonephritis with other specified pathological lesion in kidney Leukocytosis, unspecified type Anemia, unspecified type Cutaneous lupus erythematosus Lupus erythematosus Gastroesophageal reflux disease with esophagitis, unspecified whether hemorrhage- Primary documented in this encounter [facility]* Diagnosis Pre-operative exam- Primary Preoperative examination, unspecified Incomplete tear of left rotator cuff Rotator cuff (capsule) sprain Chronic left shoulder pain Pain in joint, shoulder region 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 HYPERLIPIDEMIA MIXED Mixed hyperlipidemia Thrombocytopenia Thrombocytopenia, unspecified Class 1 obesity without serious comorbidity with body mass index (BMI) of 34.0 to 34.9 in adult, unspecified obesity type Pre-op evaluation- Primary Preoperative examination, unspecified Obesity, Class I, BMI 30-34.9 Obesity, unspecified Systemic lupus erythematosus, unspecified SLE type, unspecified organ involvement status (HCC) Interstitial lung disease (HCC) Postinflammatory pulmonary fibrosis RODRIGO (obstructive sleep apnea) Obstructive sleep apnea (adult) (pediatric) HYPERLIPIDEMIA MIXED Mixed hyperlipidemia Sclerosing cholangitis (HCC) Cholangitis Milton's esophagus with dysplasia Milton's esophagus Gastroesophageal reflux disease, unspecified whether esophagitis present Primary biliary cirrhosis (HCC) Biliary cirrhosis Hypomagnesemia 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 Other acute glomerulonephritis with other specified pathological lesion in kidney Leukocytosis, unspecified type Anemia, unspecified type Cutaneous lupus erythematosus Lupus erythematosus Non-small cell cancer of right lung (HCC)- Primary documented in this encounter [facility] note* Diagnosis Pre-operative exam- Primary Preoperative examination, unspecified Incomplete tear of left rotator cuff Rotator cuff (capsule) sprain Chronic left shoulder pain Pain in joint, shoulder region 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 HYPERLIPIDEMIA MIXED Mixed hyperlipidemia Thrombocytopenia Thrombocytopenia, unspecified Class 1 obesity without serious comorbidity with body mass index (BMI) of 34.0 to 34.9 in adult, unspecified obesity type Pre-op evaluation- Primary Preoperative examination, unspecified Obesity, Class I, BMI 30-34.9 Obesity, unspecified Systemic lupus erythematosus, unspecified SLE type, unspecified organ involvement status (HCC) Interstitial lung disease (HCC) Postinflammatory pulmonary fibrosis RODRIGO (obstructive sleep apnea) Obstructive sleep apnea (adult) (pediatric) HYPERLIPIDEMIA MIXED Mixed hyperlipidemia Sclerosing cholangitis (HCC) Cholangitis Milton's esophagus with dysplasia Milton's esophagus Gastroesophageal reflux disease, unspecified whether esophagitis present Primary biliary cirrhosis (HCC) Biliary cirrhosis Hypomagnesemia 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 Other acute glomerulonephritis with other specified pathological lesion in kidney Leukocytosis, unspecified type Anemia, unspecified type Cutaneous lupus erythematosus Lupus erythematosus Malignant neoplasm of lower lobe of right lung (HCC) Pleural effusion Unspecified pleural effusion documented in this encounter [facility]* Diagnosis Pre-operative exam- Primary Preoperative examination, unspecified Incomplete tear of left rotator cuff Rotator cuff (capsule) sprain Chronic left shoulder pain Pain in joint, shoulder region 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 HYPERLIPIDEMIA MIXED Mixed hyperlipidemia Thrombocytopenia Thrombocytopenia, unspecified Class 1 obesity without serious comorbidity with body mass index (BMI) of 34.0 to 34.9 in adult, unspecified obesity type Pre-op evaluation- Primary Preoperative examination, unspecified Obesity, Class I, BMI 30-34.9 Obesity, unspecified Systemic lupus erythematosus, unspecified SLE type, unspecified organ involvement status (HCC) Interstitial lung disease (HCC) Postinflammatory pulmonary fibrosis RODRIGO (obstructive sleep apnea) Obstructive sleep apnea (adult) (pediatric) HYPERLIPIDEMIA MIXED Mixed hyperlipidemia Sclerosing cholangitis (HCC) Cholangitis Milton's esophagus with dysplasia Milton's esophagus Gastroesophageal reflux disease, unspecified whether esophagitis present Primary biliary cirrhosis (HCC) Biliary cirrhosis Hypomagnesemia 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 Other acute glomerulonephritis with other specified pathological lesion in kidney Leukocytosis, unspecified type Anemia, unspecified type Cutaneous lupus erythematosus Lupus erythematosus Malignant neoplasm of lower lobe of right lung (HCC)- Primary documented in this encounter [facility] note* Diagnosis Pre-operative exam- Primary Preoperative examination, unspecified Incomplete tear of left rotator cuff Rotator cuff (capsule) sprain Chronic left shoulder pain Pain in joint, shoulder region 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 HYPERLIPIDEMIA MIXED Mixed hyperlipidemia Thrombocytopenia Thrombocytopenia, unspecified Class 1 obesity without serious comorbidity with body mass index (BMI) of 34.0 to 34.9 in adult, unspecified obesity type Pre-op evaluation- Primary Preoperative examination, unspecified Obesity, Class I, BMI 30-34.9 Obesity, unspecified Systemic lupus erythematosus, unspecified SLE type, unspecified organ involvement status (HCC) Interstitial lung disease (HCC) Postinflammatory pulmonary fibrosis RODRIGO (obstructive sleep apnea) Obstructive sleep apnea (adult) (pediatric) HYPERLIPIDEMIA MIXED Mixed hyperlipidemia Sclerosing cholangitis (HCC) Cholangitis Milton's esophagus with dysplasia Milton's esophagus Gastroesophageal reflux disease, unspecified whether esophagitis present Primary biliary cirrhosis (HCC) Biliary cirrhosis Hypomagnesemia 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 Other acute glomerulonephritis with other specified pathological lesion in kidney Leukocytosis, unspecified type Anemia, unspecified type Cutaneous lupus erythematosus Lupus erythematosus Primary biliary cholangitis (HCC)- Primary Shortness of breath Encounter for immunotherapy Cough, unspecified type documented in this encounter [facility]* Diagnosis Pre-operative exam- Primary Preoperative examination, unspecified Incomplete tear of left rotator cuff Rotator cuff (capsule) sprain Chronic left shoulder pain Pain in joint, shoulder region 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 HYPERLIPIDEMIA MIXED Mixed hyperlipidemia Thrombocytopenia Thrombocytopenia, unspecified Class 1 obesity without serious comorbidity with body mass index (BMI) of 34.0 to 34.9 in adult, unspecified obesity type Pre-op evaluation- Primary Preoperative examination, unspecified Obesity, Class I, BMI 30-34.9 Obesity, unspecified Systemic lupus erythematosus, unspecified SLE type, unspecified organ involvement status (HCC) Interstitial lung disease (HCC) Postinflammatory pulmonary fibrosis RODRIGO (obstructive sleep apnea) Obstructive sleep apnea (adult) (pediatric) HYPERLIPIDEMIA MIXED Mixed hyperlipidemia Sclerosing cholangitis (HCC) Cholangitis Milton's esophagus with dysplasia Milton's esophagus Gastroesophageal reflux disease, unspecified whether esophagitis present Primary biliary cirrhosis (HCC) Biliary cirrhosis Hypomagnesemia 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 Other acute glomerulonephritis with other specified pathological lesion in kidney Leukocytosis, unspecified type Anemia, unspecified type Cutaneous lupus erythematosus Lupus erythematosus Non-small cell cancer of right lung (HCC)- Primary Screening for depression Encounter for screening examination for other mental health and behavioral disorders Interstitial lung disease (HCC) Postinflammatory pulmonary fibrosis Hypotension, unspecified hypotension type Hypothyroidism, acquired Unspecified hypothyroidism Gastroesophageal reflux disease with esophagitis, unspecified whether hemorrhage [facility] Diagnosis Pre-operative exam- Primary Preoperative examination, unspecified Incomplete tear of left rotator cuff Rotator cuff (capsule) sprain Chronic left shoulder pain Pain in joint, shoulder region 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 HYPERLIPIDEMIA MIXED Mixed hyperlipidemia Thrombocytopenia Thrombocytopenia, unspecified Class 1 obesity without serious comorbidity with body mass index (BMI) of 34.0 to 34.9 in adult, unspecified obesity type Pre-op evaluation- Primary Preoperative examination, unspecified Obesity, Class I, BMI 30-34.9 Obesity, unspecified Systemic lupus erythematosus, unspecified SLE type, unspecified organ involvement status (HCC) Interstitial lung disease (HCC) Postinflammatory pulmonary fibrosis RODRIGO (obstructive sleep apnea) Obstructive sleep apnea (adult) (pediatric) HYPERLIPIDEMIA MIXED Mixed hyperlipidemia Sclerosing cholangitis (HCC) Cholangitis Milton's esophagus with dysplasia Milton's esophagus Gastroesophageal reflux disease, unspecified whether esophagitis present Primary biliary cirrhosis (HCC) Biliary cirrhosis Hypomagnesemia 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 Other acute glomerulonephritis with other specified pathological lesion in kidney Leukocytosis, unspecified type Anemia, unspecified type Cutaneous lupus erythematosus Lupus erythematosus Non-small cell cancer of right lung (HCC)- Primary documented in this encounter [facility] note* Diagnosis Pre-operative exam- Primary Preoperative examination, unspecified Incomplete tear of left rotator cuff Rotator cuff (capsule) sprain Chronic left shoulder pain Pain in joint, shoulder region 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 HYPERLIPIDEMIA MIXED Mixed hyperlipidemia Thrombocytopenia Thrombocytopenia, unspecified Class 1 obesity without serious comorbidity with body mass index (BMI) of 34.0 to 34.9 in adult, unspecified obesity type Pre-op evaluation- Primary Preoperative examination, unspecified Obesity, Class I, BMI 30-34.9 Obesity, unspecified Systemic lupus erythematosus, unspecified SLE type, unspecified organ involvement status (HCC) Interstitial lung disease (HCC) Postinflammatory pulmonary fibrosis RODRIGO (obstructive sleep apnea) Obstructive sleep apnea (adult) (pediatric) HYPERLIPIDEMIA MIXED Mixed hyperlipidemia Sclerosing cholangitis (HCC) Cholangitis Milton's esophagus with dysplasia Milton's esophagus Gastroesophageal reflux disease, unspecified whether esophagitis present Primary biliary cirrhosis (HCC) Biliary cirrhosis Hypomagnesemia 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 Other acute glomerulonephritis with other specified pathological lesion in kidney Leukocytosis, unspecified type Anemia, unspecified type Cutaneous lupus erythematosus Lupus erythematosus Non-small cell cancer of right lung (HCC)- Primary documented in this encounter [facility] note* Diagnosis Pre-operative exam- Primary Preoperative examination, unspecified Incomplete tear of left rotator cuff Rotator cuff (capsule) sprain Chronic left shoulder pain Pain in joint, shoulder region 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 HYPERLIPIDEMIA MIXED Mixed hyperlipidemia Thrombocytopenia Thrombocytopenia, unspecified Class 1 obesity without serious comorbidity with body mass index (BMI) of 34.0 to 34.9 in adult, unspecified obesity type Pre-op evaluation- Primary Preoperative examination, unspecified Obesity, Class I, BMI 30-34.9 Obesity, unspecified Systemic lupus erythematosus, unspecified SLE type, unspecified organ involvement status (HCC) Interstitial lung disease (HCC) Postinflammatory pulmonary fibrosis RODRIGO (obstructive sleep apnea) Obstructive sleep apnea (adult) (pediatric) HYPERLIPIDEMIA MIXED Mixed hyperlipidemia Sclerosing cholangitis (HCC) Cholangitis Milton's esophagus with dysplasia Milton's esophagus Gastroesophageal reflux disease, unspecified whether esophagitis present Primary biliary cirrhosis (HCC) Biliary cirrhosis Hypomagnesemia 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 Other acute glomerulonephritis with other specified pathological lesion in kidney Leukocytosis, unspecified type Anemia, unspecified type Cutaneous lupus erythematosus Lupus erythematosus Exertional dyspnea- Primary Other dyspnea and respiratory abnormality Interstitial lung disease (HCC) Postinflammatory pulmonary fibrosis Malignant neoplasm of lower lobe of right lung (HCC) Apnea documented in this encounter [facility] note* Diagnosis Pre-operative exam- Primary Preoperative examination, unspecified Incomplete tear of left rotator cuff Rotator cuff (capsule) sprain Chronic left shoulder pain Pain in joint, shoulder region 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 HYPERLIPIDEMIA MIXED Mixed hyperlipidemia Thrombocytopenia Thrombocytopenia, unspecified Class 1 obesity without serious comorbidity with body mass index (BMI) of 34.0 to 34.9 in adult, unspecified obesity type Pre-op evaluation- Primary Preoperative examination, unspecified Obesity, Class I, BMI 30-34.9 Obesity, unspecified Systemic lupus erythematosus, unspecified SLE type, unspecified organ involvement status (HCC) Interstitial lung disease (HCC) Postinflammatory pulmonary fibrosis RODRIGO (obstructive sleep apnea) Obstructive sleep apnea (adult) (pediatric) HYPERLIPIDEMIA MIXED Mixed hyperlipidemia Sclerosing cholangitis (HCC) Cholangitis Milton's esophagus with dysplasia Milton's esophagus Gastroesophageal reflux disease, unspecified whether esophagitis present Primary biliary cirrhosis (HCC) Biliary cirrhosis Hypomagnesemia 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 Other acute glomerulonephritis with other specified pathological lesion in kidney Leukocytosis, unspecified type Anemia, unspecified type Cutaneous lupus erythematosus Lupus erythematosus Other systemic lupus erythematosus with other organ involvement (HCC)- Primary documented in this encounter [facility] note* Diagnosis Pre-operative exam- Primary Preoperative examination, unspecified Incomplete tear of left rotator cuff Rotator cuff (capsule) sprain Chronic left shoulder pain Pain in joint, shoulder region 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 HYPERLIPIDEMIA MIXED Mixed hyperlipidemia Thrombocytopenia Thrombocytopenia, unspecified Class 1 obesity without serious comorbidity with body mass index (BMI) of 34.0 to 34.9 in adult, unspecified obesity type Pre-op evaluation- Primary Preoperative examination, unspecified Obesity, Class I, BMI 30-34.9 Obesity, unspecified Systemic lupus erythematosus, unspecified SLE type, unspecified organ involvement status (HCC) Interstitial lung disease (HCC) Postinflammatory pulmonary fibrosis RODRIGO (obstructive sleep apnea) Obstructive sleep apnea (adult) (pediatric) HYPERLIPIDEMIA MIXED Mixed hyperlipidemia Sclerosing cholangitis (HCC) Cholangitis Milton's esophagus with dysplasia Milton's esophagus Gastroesophageal reflux disease, unspecified whether esophagitis present Primary biliary cirrhosis (HCC) Biliary cirrhosis Hypomagnesemia 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 Other acute glomerulonephritis with other specified pathological lesion in kidney Leukocytosis, unspecified type Anemia, unspecified type Cutaneous lupus erythematosus Lupus erythematosus Examination of participant or control in clinical research- Primary Examination of participant in clinical trial [facility] Diagnosis Pre-operative exam- Primary Preoperative examination, unspecified Incomplete tear of left rotator cuff Rotator cuff (capsule) sprain Chronic left shoulder pain Pain in joint, shoulder region 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 HYPERLIPIDEMIA MIXED Mixed hyperlipidemia Thrombocytopenia Thrombocytopenia, unspecified Class 1 obesity without serious comorbidity with body mass index (BMI) of 34.0 to 34.9 in adult, unspecified obesity type Pre-op evaluation- Primary Preoperative examination, unspecified Obesity, Class I, BMI 30-34.9 Obesity, unspecified Systemic lupus erythematosus, unspecified SLE type, unspecified organ involvement status (HCC) Interstitial lung disease (HCC) Postinflammatory pulmonary fibrosis RODRIGO (obstructive sleep apnea) Obstructive sleep apnea (adult) (pediatric) HYPERLIPIDEMIA MIXED Mixed hyperlipidemia Sclerosing cholangitis (HCC) Cholangitis Milton's esophagus with dysplasia Milton's esophagus Gastroesophageal reflux disease, unspecified whether esophagitis present Primary biliary cirrhosis (HCC) Biliary cirrhosis Hypomagnesemia 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 Other acute glomerulonephritis with other specified pathological lesion in kidney Leukocytosis, unspecified type Anemia, unspecified type Cutaneous lupus erythematosus Lupus erythematosus Edema, unspecified type documented in this encounter [facility]* Diagnosis Pre-operative exam- Primary Preoperative examination, unspecified Incomplete tear of left rotator cuff Rotator cuff (capsule) sprain Chronic left shoulder pain Pain in joint, shoulder region 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 HYPERLIPIDEMIA MIXED Mixed hyperlipidemia Thrombocytopenia Thrombocytopenia, unspecified Class 1 obesity without serious comorbidity with body mass index (BMI) of 34.0 to 34.9 in adult, unspecified obesity type Pre-op evaluation- Primary Preoperative examination, unspecified Obesity, Class I, BMI 30-34.9 Obesity, unspecified Systemic lupus erythematosus, unspecified SLE type, unspecified organ involvement status (HCC) Interstitial lung disease (HCC) Postinflammatory pulmonary fibrosis RODRIGO (obstructive sleep apnea) Obstructive sleep apnea (adult) (pediatric) HYPERLIPIDEMIA MIXED Mixed hyperlipidemia Sclerosing cholangitis (HCC) Cholangitis Milton's esophagus with dysplasia Milton's esophagus Gastroesophageal reflux disease, unspecified whether esophagitis present Primary biliary cirrhosis (HCC) Biliary cirrhosis Hypomagnesemia 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 Other acute glomerulonephritis with other specified pathological lesion in kidney Leukocytosis, unspecified type Anemia, unspecified type Cutaneous lupus erythematosus Lupus erythematosus Non-small cell cancer of right lung (HCC) documented in this encounter [facility] for referral (narrative)* Diagnostic Procedure Only (Routine) - Authorized Specialty Diagnoses / Procedures Referred By Reynaldo keyes Referred To Contact [facility] Diagnoses Encounter for screening mammogram for malignant neoplasm of breast Procedures FREYA SCREENING SCREENING MAMMOGRAPHY BI 2-VIEW BREAST INC CAD Camilo Jonas MD [address] [place] [address] [facility] [address] [place] [address] Referral ID Status Reason Start Date Expiration Date Visits Requested Visits Authorized [id number] Authorized Auto-Generat ed Referral 10/24/2021 11/23/2022 1 1 [facility] for referral (narrative)* Outpatient Procedure (Routine) - Pending Review Specialty Diagnoses / Procedures Referred By Reynaldo keyes Referred To [facility] Diagnoses Interstitial pulmonary disease (HCC) Procedures SPIROMETRY - BASELINE AND POST DILATOR BRNCDILAT RSPSE SPMTRY PRE&POST-BRNCDILAT ADMN Boaz Pineda DO [id number] [place] [address] [address] Referral ID Status Reason Start Date Expiration Date Visits Requested Visits Authorized [id number] Pending Review Auto-Generat ed Referral 2 01/04/2023 1 1 * Outpatient Procedure (Routine) - Pending Review Specialty Diagnoses / Procedures Referred By Contac t Referred To Contact [facility] Diagnoses Interstitial pulmonary disease (HCC) Procedures LUNG VOLUMES Boaz Pineda DO [address] [facility], [address] [address] Referral ID Status Reason Start Date Expiration Date Visits Requested Visits Authorized [id number] Pending Review Auto-Generat ed Referral 2 01/04/2023 1 1 * Outpatient Procedure (Routine) - Pending Review Specialty Diagnoses / Procedures Referred By Contac t Referred To [facility] Diagnoses Interstitial pulmonary disease (HCC) Procedures LUNG DIFFUSION CAPACITY (DLCO) DIFFUSING CAPACITY Boaz Pineda DO [address], [address] [address] Referral ID Status Reason Start Date Expiration Date Visits Requested Visits Authorized [id number] Pending Review Auto-Generat ed Referral 2 01/04/2023 1 1 [facility] for referral (narrative)* Outpatient Procedure (Routine) - Pending Review Specialty Diagnoses / Procedures Referred By Contac t Referred To [facility] [place] Diagnoses Interstitial pulmonary disease (HCC) Procedures SPIROMETRY WITH DILATOR IF OBSTRUCTED BRNCDILAT RSPSE SPMTRY PRE&POST-BRNCDILAT ADMN Lindsey Hightower MD [address] [place] [address] Res[facility] [place] [address] [place] [id number] Referral ID Status Reason Start Date Expiration Date Visits Requested Visits Authorized [id number] Pending Review Auto-Generat ed Referral 06/29/2022 01/29/2023 1 1 * Outpatient Procedure (Routine) - Pending Review Specialty Diagnoses / Procedures Referred By Reynaldo keyes Referred To [facility] Diagnoses Interstitial pulmonary disease (HCC) Procedures LUNG DIFFUSION CAPACITY (DLCO) DIFFUSING CAPACITY Lindsey Hightower MD [address] [place] [address] [address] Referral ID Status Reason Start Date Expiration Date Visits Requested Visits Authorized [id number] Pending Review Auto-Generat ed Referral 06/29/2022 01/29/2023 1 1 [facility] for referral (narrative)* Diagnostic Procedure Only (Routine) - Pending Review Specialty Diagnoses / Procedures Referred By Reynaldo t Referred To Contact BR IMAGING Diagnoses Encounter for gynecological examination (general) (routine) without abnormal findings Encounter for screening mammogram for breast cancer Procedures FREYA SCREENING SCREENING MAMMOGRAPHY BI 2-VIEW BREAST INC CAD Raisa Latham MD [address] [place] [address] Br Imaging [address] [place] [address] Referral ID Status Reason Start Date Expiration Date Visits Requested Visits Authorized [id number] Pending Review Auto-Generat ed Referral 03/01/2022 03/31/2023 1 1 [facility] for referral (narrative)* Diagnostic Procedure Only (Routine) - Pending Review Specialty Diagnoses / Procedures Referred By Reynaldo t Referred To Contact US IMAGING Diagnoses Primary sclerosing cholangitis Procedures US ABD RIGHT UPPER QUADRANT US ABDOMINAL REAL TIME W/IMAGE LIMITED Baggott, Allen Cartagena, MD [address] [place] [address] Us Imaging [facility]95 Referral ID Status Reason Start Date Expiration Date Visits Requested Visits Authorized [id number] Pending Review Auto-Generat ed Referral 12/26/2023 1 1 [facility] for referral (narrative)* Diagnostic Procedure Only (Routine) - Closed Specialty Diagnoses / Procedures Referred By Reynaldo keyes Referred To Contact US IMAGING Diagnoses Primary sclerosing cholangitis Procedures US ABD RIGHT UPPER QUADRANT US ABDOMINAL REAL TIME W/IMAGE LIMITED Allen Valdes MD [address] [place] [id number] Us Imaging [facility]95 Referral ID Status Reason Start Date Expiration Date V isits Requested Visits Authorized [id number] Closed Auto-Generate d Referral 11/26/2022 12/26/2023 1 1 [facility] for referral (narrative)* Diagnostic Procedure Only (Routine) - Closed Specialty Diagnoses / Procedures [facility] Referred To Contact BR IM[facility] Diagnoses Encounter for gynecological examination (general) (routine) without abnormal findings Encounter for screening mammogram for breast cancer Procedures FREYA SCREENING SCREENING MAMMOGRAPHY BI 2-VIEW BREAST INC CAD Raisa Latham MD [address] [place] [address] Br [facility] [address] [place] [address] Referral ID Status Reason Start Date Expiration Date V isits Requested Visits Authorized [id number] Closed Auto-Generate d Referral 03/01/2022 03/31/2023 1 1 [facility] for referral (narrative)* Diagnostic Procedure Only (Routine) - Open Specialty Diagnoses / Procedures [facility] Referred To Contact [facility] Diagnoses Snoring Procedures HOME SLEEP APNEA TEST (HSAT) SLEEP STD AIRFLOW HRT RATE&O2 SAT EFFORT Ny Pino MD [address] [facility] [place] [address] Neurological [place] [address] [place] [address] Referral ID Status Reason Start Date Expiration Date V isits Requested Visits Authorized [id number] Open Auto-Generate d Referral 07/05/2023 07/04/2024 1 1 [facility] for referral (narrative)* Outpatient Procedure (Urgent) - Pending Review Specialty Diagnoses / Procedures Referred By Contac t Referred To Contact [facility] [place] Diagnoses Lung nodule Procedures ECG COMPLETE ECG ROUTINE ECG W/LEAST 12 LDS W/I&R Ayo Mann MD [address] [place] [address] [place] [id number] Referral ID Status Reason Start Date Expiration Date Visits Requested Visits Authorized [id number] Pending Review Auto-Generat ed Referral 07/20/2023 07/19/2024 1 1 T [facility] for referral (narrative)* Outpatient Procedure (Routine) - New Request Specialty Diagnoses / Procedures Referred By Contac t Referred To Contact [facility] Diagnoses Malignant neoplasm of lower lobe of right lung (HCC) Procedures SIX MINUTE WALK CARDIOPULMONARY EXERCISE STRESS Janett Feliciano MD, PhD [address] [place] [address] Respiratory [place] [address] [place] [address] Referral ID Status Reason Start Date Expiration Date Visits Requested Visits Authorized [id number] New Request Auto-Generat ed Referral 09/25/2023 10/24/2024 1 1 [facility] for referral (narrative)* Diagnostic Procedure Only (Routine) - Closed Specialty Diagnoses / Procedures Referred By Contac t Referred To Contact XR IMAGING Diagnoses Acute pain of right knee Procedures XR KNEE GENERAL 4V AP BOTH/PA BOTH/LAT/MERC RIGHT RADIOLOGIC EXAM KNEE COMPLETE 4/MORE VIEWS Camilo Jonas MD [address] [place] [address] Xr Imaging [place] [address] Referral ID Status Reason Start Date Expiration Date V isits Requested Visits Authorized [id number] Closed Auto-Generate d Referral 09/25/2022 10/25/2023 1 1 [facility] for referral (narrative)* Diagnostic Procedure Only (Routine) - New Request Specialty Diagnoses / Procedures Referred By Contac t Referred To Contact MOLECULAR & FUNCTIONAL IMAGING Diagnoses Malignant neoplasm of lower lobe of right lung (HCC) Encounter for other preprocedural examination Procedures NM CARDIAC PERF STRESS/EXERCISE MYOCARDIAL SPECT MULTIPLE STUDIES Janett Feliciano MD, PhD [address] [place] [id number] Molecular & Functional Imaging [address] [place] [address] Referral ID Status Reason Start Date Expiration Date Visits Requested Visits Authorized [id number] New Request Auto-Generat ed Referral 4 12/25/2024 1 1 [facility] for referral (narrative)* Diagnostic Procedure Only (Routine) - Closed Specialty Diagnoses / Procedures Referred By Contac t Referred To Contact MOLECULAR & FUNCTIONAL IMAGING Diagnoses Malignant neoplasm of lower lobe of right lung (HCC) Encounter for other preprocedural examination Procedures NM CARDIAC PERF STRESS/EXERCISE MYOCARDIAL SPECT MULTIPLE STUDIES Janett Feliciano MD, PhD [address] [address] Molecular & Functional Imaging [address] [place] [address] Referral ID Status Reason Start Date Expiration Date V isits Requested Visits Authorized [id number] Closed Auto-Generate d Referral 11/29/2023 11/29/2023 1 1 [facility] for referral (narrative)* Diagnostic Procedure Only (Routine) - Closed Specialty Diagnoses / Procedures Referred By Contac t Referred To Contact BR IMAGING Diagnoses Encounter for screening mammogram for breast cancer Procedures FREYA SCREENING SCREENING MAMMOGRAPHY BI 2-VIEW BREAST INC CAD Raisa Latahm MD [address] [place] [address] Br Imaging [address] [place] [phone] Referral ID Status Reason Start Date Expiration Date V isits Requested Visits Authorized [id number] Closed Auto-Generate d Referral 03/05/2023 04/03/2024 1 1 [facility] for referral (narrative)* Outpatient Procedure (Urgent) - New Request Specialty Diagnoses / Procedures Referred By Contac t Referred To Contact [facility] Diagnoses Malignant neoplasm of lower lobe of right lung (HCC) Procedures ECHO ECHO TTHRC R-T 2D W/WOM-MODE COMPL SPEC&COLR D Janett Feliciano MD, PhD [address] [place] [address] [facility] Vascular [place] [address] [place] [address] Referral ID Status Reason Start Date Expiration Date Visits Requested Visits Authorized [id number] New Request Auto-Generat ed Referral 02/20/2024 02/19/2025 1 1 * Outpatient Procedure (Urgent) - New Request Specialty Diagnoses / Procedures Referred By Contac t Referred To Contact [facility] Diagnoses Malignant neoplasm of lower lobe of right lung (HCC) Procedures SPIROMETRY WITH DILATOR IF OBSTRUCTED BRNCDILAT RSPSE SPMTRY PRE&POST-BRNCDILAT ADMJanett Abdalla MD, PhD [address] [employer] [facility] [address] [place] [address] [address] Referral ID Status Reason Start Date Expiration Date Visits Requested Visits Authorized [id number] New Request Auto-Generat ed Referral 02/20/2024 03/21/2025 1 1 * Outpatient Procedure (Urgent) - New Request Specialty Diagnoses / Procedures Referred By Contac t Referred To [facility] RESPIRATORY [place] Diagnoses Malignant neoplasm of lower lobe of right lung (HCC) Procedures SIX MINUTE WALK CARDIOPULMONARY EXERCISE STRESS Janett Feliciano MD, PhD [address] [facility] [address] [place] [address] [address] [address] Referral ID Status Reason Start Date Expiration Date Visits Requested Visits Authorized [id number] New Request Auto-Generat ed Referral 02/20/2024 03/21/2025 1 1 * Outpatient Procedure (Urgent) - New Request Specialty Diagnoses / Procedures Referred By Contac t Referred To [facility] Diagnoses Malignant neoplasm of lower lobe of right lung (HCC) Procedures LUNG DIFFUSION CAPACITY (DLCO) DIFFUSING CAPACITY Janett Feliciano MD, PhD [address] [facility] [place] [address] [facility] [address] [place] [address] Referral ID Status Reason Start Date Expiration Date Visits Requested Visits Authorized [id number] New Request Auto-Generat ed Referral 02/20/2024 03/21/2025 1 1 [facility] Outpatient Procedure (Urgent) - New Request Specialty Diagnoses / Procedures Referred By Contac t Referred To [facility] Diagnoses Malignant neoplasm of lower lobe of right lung (HCC) Pre-procedure lab exam Procedures ECG COMPLETE ECG ROUTINE ECG W/LEAST 12 LDS W/I&R Janett Feliciano MD, PhD [address] [place] [address] Heart And Vascular [place] [address] [place] [address] Referral ID Status Reason Start Date Expiration Date Visits Requested Visits Authorized [id number] New Request Auto-Generat ed Referral 03/04/2024 03/04/2025 1 1 [facility] for visit Narrative* Diagnostic Procedure Only (Routine) - Closed Specialty Diagnoses / Procedures Referred By Contac t Referred To Contact BR IMAGING Diagnoses Encounter for gynecological examination (general) (routine) without abnormal findings Encounter for screening mammogram for breast cancer Procedures FREYA SCREENING SCREENING MAMMOGRAPHY BI 2-VIEW BREAST INC CAD Raisa Latham MD [address] [place] [address] Br Imaging [address] [place] [address] Referral ID Status Reason Start Date Expiration Date V isits Requested Visits Authorized [id number] Closed Auto-Generate d Referral 03/01/2022 03/31/2023 1 1 [facility] for visit Narrative* Diagnostic Procedure Only (Routine) - Closed Specialty Diagnoses / Procedures Referred By Contac t Referred To Contact XR IMAGING Diagnoses Acute pain of right knee Procedures XR KNEE GENERAL 4V AP BOTH/PA BOTH/LAT/MERC RIGHT RADIOLOGIC EXAM KNEE COMPLETE 4/MORE VIEWS Camilo Jonas MD [address] [place] [address] [place] [address] Referral ID Status Reason Start Date Expiration Date V isits Requested Visits Authorized [id number] Closed Auto-Generate d Referral 09/25/2022 10/25/2023 1 1 [facility] for visit Narrative* Diagnostic Procedure Only (Routine) - Closed Specialty Diagnoses / Procedures Referred By Contac t Referred To Contact BR IMAGING Diagnoses Encounter for screening mammogram for breast cancer Procedures FREYA SCREENING SCREENING MAMMOGRAPHY BI 2-VIEW BREAST INC CAD Raisa Latham MD [address] [place] [address] Br Imaging [address] [place] [phone] Referral ID Status Reason Start Date Expiration Date V isits Requested Visits Authorized [id number] Closed Auto-Generate d Referral 03/05/2023 04/03/2024 1 1 [facility] for visit Narrative* Outpatient Procedure (Routine) - Closed Specialty Diagnoses / Procedures Referred By Reynaldo t Referred To Contact [facility] Diagnoses Primary biliary cirrhosis (HCC) Procedures DDI VIBRATION CONTROLLED TRANSIENT ELASTOGRAPHY (VCTE) LIVER ELASTOGRAPHY W/O IMAG W/I&R Allen Valdes MD [address] [place] [address] Phone: tel: fax: [facility] [address] [place] [address] Referral ID Status Reason Start Date Expiration Date V isits Requested Visits Authorized [id number] Closed Auto-Generate d Referral 06/18/2024 02/04/2025 1 1 [facility] for visit Narrative* MRI/CT (Routine) - Closed Specialty Diagnoses / Procedures Referred By Reynaldo Referred To Contact CT IMAGING Diagnoses Non-small cell cancer of right lung (HCC) Procedures CT ABD/PEL WO IVCON CT ABD & PELVIS W/O CONTRAST Alf Castle DO [address] [place] [address] Phone: tel: fax: CT IMAGING [facility]95 Referral ID Status Reason Start Date Expiration Date V isits Requested Visits Authorized [id number] Closed Auto-Generate d Referral 09/10/2024 02/04/2025 2 2 [facility] Advance Directives No Advanced Directives Records FoundDocuments on File Type Date Recorded 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 Advance Directive(s) Advance Directive(s) 11/22/2020 7:15 AM Advance Directive(s) 11/02/2020 4:50 PM Advance Directive(s) 11/11/2018 9:20 AM Advance Directive(s) 10/23/2018 5:11 PM Advance Directive(s) 03/18/2018 3:51 PM Advance Directive(s) 10/19/2016 11:03 AM Advance Directive(s) 06/29/2016 8:23 AM Advance Directive(s) 03/03/2016 8:14 AM Advance Directive(s) 02/28/2016 3:58 PM Documents on File Type Date Recorded 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 Advance Directive(s) 10/19/2016 11:03 AM Documents on File Type Date Recorded 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 Advance Directive(s) 10/19/2016 11:03 AM Date Activated Date Inactivated Comments 04/01/2024 11:00 PM 04/04/2024 4:10 PM Question Answer Comments Full Code Order Discussed With: Patient Date Activated Date Inactivated Comments 04/01/2024 10:56 PM 04/01/2024 11:00 PM Question Answer Comments Full Code Order Discussed With: Patient Date Activated Date Inactivated Comments 04/01/2024 11:00 PM 04/04/2024 4:10 PM Question Answer Comments Full Code Order Discussed With: Patient Date Activated Date Inactivated Comments 04/01/2024 10:56 PM 04/01/2024 11:00 PM Question Answer Comments Full Code Order Discussed With: Patient Date Activated Date Inactivated Comments 05/03/2024 7:33 AM 05/03/2024 7:50 PM Date Activated Date Inactivated Comments 04/01/2024 11:00 PM 04/04/2024 4:10 PM Date Activated Date Inactivated Comments 04/01/2024 10:56 PM 04/01/2024 11:00 PM Question Answer Comments Full Code Order Discussed With: Patient Date Activated Date Inactivated Comments 05/03/2024 7:33 AM 05/03/2024 7:50 PM Date Activated Date Inactivated Comments 04/01/2024 11:00 PM 04/04/2024 4:10 PM Date Activated Date Inactivated Comments 04/01/2024 10:56 PM 04/01/2024 11:00 PM Question Answer Comments Full Code Order Discussed With: Patient Reason for Referral Specialty Diagnoses / Procedures Referred By Contac t Referred To Contact CT IMAGING Diagnoses Interstitial pulmonary disease (HCC) Wheezing Procedures CT CHEST WO IVCON DIAGNOSTIC COMPUTED TOMOGRAPHY THORAX W/O CNTRST Boaz Pineda DO [address], [address] [place] [address] Ct Imaging Referral ID Status Reason Start Date Expiration Date Visits Requested Visits Authorized [id number] Pending Review Auto-Generat ed Referral 12/14/2022 1 1 Specialty Diagnoses / Procedures Referred By Contac t Referred To Contact CT IMAGING Diagnoses Interstitial pulmonary disease (HCC) Wheezing Procedures CT CHEST WO IVCON DIAGNOSTIC COMPUTED TOMOGRAPHY THORAX W/O CNTRSBoaz Seay DO [address] [place] [address] Ct Imaging [place] [address] Referral ID Status Reason Start Date Expiration Date V isits Requested Visits Authorized [id number] Closed Auto-Generate d Referral 11/14/2021 12/05/2021 1 1 Specialty Diagnoses / Procedures Referred By Contac t Referred To Contact MR IMAGING Diagnoses Calculus of gallbladder without cholecystitis without obstruction Procedures MRI 3D POST PROCESSING 3D RENDERING W/INTERP&POSTPROC DIFF WORK STATION Allen Valdes MD [address] [place] [address] Mr Imaging [place] [address] Referral ID Status Reason Start Date Expiration Date Visits Requested Visits Authorized [id number] Pending Review Auto-Generat ed Referral 04/04/2023 05/03/2024 1 1 Specialty Diagnoses / Procedures Referred By Contac t Referred To Contact MR IMAGING Diagnoses Calculus of gallbladder without cholecystitis without obstruction Procedures MRI PANC/ARMANDO WO/W IVCON MRI ABDOMEN W/O & W/CONTRAST MATERIAL Allen Valdes MD [address] [facility] [place] [address] Mr Imaging [place] [address] Referral ID Status Reason Start Date Expiration Date Visits Requested Visits Authorized [id number] Pending Review Auto-Generat ed Referral 04/04/2023 05/03/2024 1 1 Referral ID Status Reason Start Date Expiration Date V isits Requested Visits Authorized [id number] Closed Auto-Generate d Referral 06/22/2023 02/05/2024 1 1 Referral ID Status Reason Start Date Expiration Date V isits Requested Visits Authorized [id number] Closed Auto-Generate d Referral 06/22/2023 06/22/2023 1 1 Specialty Diagnoses / Procedures Referred By Contac t Referred To Contact MR IMAGING Diagnoses Malignant neoplasm of upper lobe of right lung (HCC) Procedures MRI BRAIN WO/W IVCON MRI BRAIN BRAIN STEM W/O W/CONTRAST MATERIAL Ny Ross MD [address] [place] [address] Mr Imaging [place] [address] Referral ID Status Reason Start Date Expiration Date Visits Requested Visits Authorized [id number] Authorized Auto-Generat ed Referral 09/21/2023 09/21/2023 1 1 Referral ID Status Reason Start Date Expiration Date V isits Requested Visits Authorized [id number] Closed Auto-Generate d Referral 09/21/2023 09/21/2023 1 1 Specialty Diagnoses / Procedures Referred By Contac t Referred To Contact Thoracic Surgery Diagnoses Malignant neoplasm of lower lobe of right lung (HCC) Procedures CONSULT TO CARDIOTHORACIC SURGERY Ny Ross MD [address] [place] [address] Janett Feliciano MD, PhD [address] [place] [address] Referral ID Status Reason Start Date Expiration Date Visits Requested Visits Authorized [id number] Ref Not Required PCP Requested Referral 09/24/2023 09/23/2024 1 1 Specialty Diagnoses / Procedures Referred By Contac t Referred To Contact Diagnoses Obesity, Class I, BMI 30-34.9 Personal history of malignant neoplasm of bronchus and lung Procedures CONSULT TO HEMATOLOGY/ONCOLOGY OFFICE/OUTPATIENT NEW [facility] 60 MINUTES Janett Feliciano MD, PhD [address] [place] [address] Referral ID Status Reason Start Date Expiration Date Visits Requested Visits Authorized [id number] Authorized PCP Requested Referral 10/11/2023 10/03/2024 1 1 Specialty Diagnoses / Procedures Referred By Contac t Referred To Contact CT IMAGING Diagnoses Cancer of lower lobe of right lung (HCC) Procedures CT CHEST W IVCON DIAGNOSTIC COMPUTED TOMOGRAPHY THORAX W/CONTRAST Alf Castle, DO [address] [place] [address] [place] [address] Referral ID Status Reason Start Date Expiration Date Visits Requested Visits Authorized [id number] Authorized Auto-Generat ed Referral Patient Cleared - Admin/Chairm an/Director advise to proceed or did not respond 10/22/2023 02/05/2024 1 1 Referral ID Status Reason Start Date Expiration Date V isits Requested Visits Authorized [id number] Closed Auto-Generat ed Referral Patient Cleared - Admin/Chairm an/Director advise to proceed or did not respond 10/22/2023 02/05/2024 1 1 Specialty Diagnoses / Procedures Referred By Contac t Referred To Contact CT IMAGING Diagnoses Non-small cell cancer of right lung (HCC) Procedures CT ABD/PEL WO IVCON CT ABD & PELVIS W/O CONTRAST Alf Castle DO [address] [place] [address] [place] [address] Referral ID Status Reason Start Date Expiration Date V isits Requested Visits Authorized [id number] Open Auto-Generate d Referral 01/24/2024 02/22/2025 1 1 Specialty Diagnoses / Procedures Referred By Contac t Referred To Contact CT IMAGING Diagnoses Non-small cell cancer of right lung (HCC) Procedures CT CHEST WO IVCON DIAGNOSTIC COMPUTED TOMOGRAPHY THORAX W/O CNTRST Alf Castle DO [address] [place] [address] [place] [address] Referral ID Status Reason Start Date Expiration Date V isits Requested Visits Authorized [id number] Open Auto-Generate d Referral 01/24/2024 02/22/2025 1 1 Referral ID Status Reason Start Date Expiration Date V isits Requested Visits Authorized [id number] Closed Auto-Generate d Referral 02/12/2024 02/04/2025 1 1 Specialty Diagnoses / Procedures Referred By Contac t Referred To Contact Nephrology Diagnoses Acute kidney injury (HCC) Procedures CONSULT TO NEPHROLOGY OFFICE/OUTPATIENT NEW HIGH MDM 60 MINUTES Alf Castle, DO [address] [place] [address] Referral ID Status Reason Start Date Expiration Date Visits Requested Visits Authorized [id number] Authorized PCP Requested Referral 03/03/2024 03/03/2025 1 1 Specialty Diagnoses / Procedures Referred By Contac t Referred To Contact Nephrology Diagnoses CRISTINO (acute kidney injury) (HCC) History of immunotherapy Non-small cell cancer of right lung (HCC) Procedures CONSULT TO KIDNEY MEDICINE OFFICE[facility]UTES Alf Castle, DO [address] [place] [address] Referral ID Status Reason Start Date Expiration Date Visits Requested Visits Authorized [id number] Authorized PCP Requested Referral 03/11/2024 03/11/2025 1 1 Health Concerns Infection Onset Date Last Indicated Resolved Time COVID-19 Rule-Out 01/30/2022 01/30/2022 01/31/2022 4:53 AM EST Summary Purpose Family History No Family History Records FoundNo Family History Records FoundNo Family History Records FoundNo Family History Records FoundNo Family History Records FoundNo Family History Records FoundNo Family History Records Found Additional Source Comments Source Comments (unrecognize d section and content) In the event this informatio n is protected by the Federal Confidentiality of Alcohol and Drug Abuse Patient Records regulations: The Federal rules restrict any use of the information to criminally investigate or prosecute any alcohol or drug abuse patient.[facility] the event this information is protected by the Federal Confidentiality of Alcohol and Drug Abuse Patient Records regulations: The Federal rules restrict any use of the information to criminally investigate or prosecute any alcohol or drug abuse patient.[facility] the event this information is protected by the Federal Confidentiality of Alcohol and Drug Abuse Patient Records regulations: The Federal rules restrict any use of the information to criminally investigate or prosecute any alcohol or drug abuse patient.[facility] the event this information is protected by the Federal Confidentiality of Alcohol and Drug Abuse Patient Records regulations: The Federal rules restrict any use of the information to criminally investigate or prosecute any alcohol or drug abuse patient.[facility] the event this information is protected by the Federal Confidentiality of Alcohol and Drug Abuse Patient Records regulations: The Federal rules restrict any use of the information to criminally investigate or prosecute any alcohol or drug abuse patient.[facility] the event this information is protected by the Federal Confidentiality of Alcohol and Drug Abuse Patient Records regulations: The Federal rules restrict any use of the information to criminally investigate or prosecute any alcohol or drug abuse patient.[facility] Hospital[facility] the event this information is protected by the Federal Confidentiality of Alcohol and Drug Abuse Patient Records regulations: The Federal rules restrict any use of the information to criminally investigate or prosecute any alcohol or drug abuse patient.[facility]In the event this information is protected by the Federal Confidentiality of Alcohol and Drug Abuse Patient Records regulations: The Federal rules restrict any use of the information to criminally investigate or prosecute any alcohol or drug abuse patient.[facility] HospitalIn the event this information is protected by the Federal Confidentiality of Alcohol and Drug Abuse Patient Records regulations: The Federal rules restrict any use of the information to criminally investigate or prosecute any alcohol or drug abuse patient.[facility] HospitalIn the event this information is protected by the Federal Confidentiality of Alcohol and Drug Abuse Patient Records regulations: The Federal rules restrict any use of the information to criminally investigate or prosecute any alcohol or drug abuse patient.[facility] HospitalIn the event this information is protected by the Federal Confidentiality of Alcohol and Drug Abuse Patient Records regulations: The Federal rules restrict any use of the information to criminally investigate or prosecute any alcohol or drug abuse patient.[facility] HospitalIn the event this information is protected by the Federal Confidentiality of Alcohol and Drug Abuse Patient Records regulations: The Federal rules restrict any use of the information to criminally investigate or prosecute any alcohol or drug abuse patient.[facility] HospitalIn the event this information is protected by the Federal Confidentiality of Alcohol and Drug Abuse Patient Records regulations: The Federal rules restrict any use of the information to criminally investigate or prosecute any alcohol or drug abuse patient.[facility] HospitalIn the event this information is protected by the Federal Confidentiality of Alcohol and Drug Abuse Patient Records regulations: The Federal rules restrict any use of the information to criminally investigate or prosecute any alcohol or drug abuse patient.[facility] HospitalIn the event this information is protected by the Federal Confidentiality of Alcohol and Drug Abuse Patient Records regulations: The Federal rules restrict any use of the information to criminally investigate or prosecute any alcohol or drug abuse patient.[facility] HospitalIn the event this information is protected by the Federal Confidentiality of Alcohol and Drug Abuse Patient Records regulations: The Federal rules restrict any use of the information to criminally investigate or prosecute any alcohol or drug abuse patient.[facility] HospitalIn the event this information is protected by the Federal Confidentiality of Alcohol and Drug Abuse Patient Records regulations: The Federal rules restrict any use of the information to criminally investigate or prosecute any alcohol or drug abuse patient.[facility] HospitalIn the event this information is protected by the Federal Confidentiality of Alcohol and Drug Abuse Patient Records regulations: The Federal rules restrict any use of the information to criminally investigate or prosecute any alcohol or drug abuse patient.[facility] HospitalIn the event this information is protected by the Federal Confidentiality of Alcohol and Drug Abuse Patient Records regulations: The Federal rules restrict any use of the information to criminally investigate or prosecute any alcohol or drug abuse patient.[facility] HospitalIn the event this information is protected by the Federal Confidentiality of Alcohol and Drug Abuse Patient Records regulations: The Federal rules restrict any use of the information to criminally investigate or prosecute any alcohol or drug abuse patient.[facility] HospitalIn the event this information is protected by the Federal Confidentiality of Alcohol and Drug Abuse Patient Records regulations: The Federal rules restrict any use of the information to criminally investigate or prosecute any alcohol or drug abuse patient.[facility] HospitalIn the event this information is protected by the Federal Confidentiality of Alcohol and Drug Abuse Patient Records regulations: The Federal rules restrict any use of the information to criminally investigate or prosecute any alcohol or drug abuse patient.[facility] HospitalIn the event this information is protected by the Federal Confidentiality of Alcohol and Drug Abuse Patient Records regulations: The Federal rules restrict any use of the information to criminally investigate or prosecute any alcohol or drug abuse patient.[facility] HospitalIn the event this information is protected by the Federal Confidentiality of Alcohol and Drug Abuse Patient Records regulations: The Federal rules restrict any use of the information to criminally investigate or prosecute any alcohol or drug abuse patient.[facility] HospitalIn the event this information is protected by the Federal Confidentiality of Alcohol and Drug Abuse Patient Records regulations: The Federal rules restrict any use of the information to criminally investigate or prosecute any alcohol or drug abuse patient.[facility] HospitalIn the event this information is protected by the Federal Confidentiality of Alcohol and Drug Abuse Patient Records regulations: The Federal rules restrict any use of the information to criminally investigate or prosecute any alcohol or drug abuse patient.[facility] HospitalIn the event this information is protected by the Federal Confidentiality of Alcohol and Drug Abuse Patient Records regulations: The Federal rules restrict any use of the information to criminally investigate or prosecute any alcohol or drug abuse patient.[facility] HospitalIn the event this information is protected by the Federal Confidentiality of Alcohol and Drug Abuse Patient Records regulations: The Federal rules restrict any use of the information to criminally investigate or prosecute any alcohol or drug abuse patient.[facility] HospitalIn the event this information is protected by the Federal Confidentiality of Alcohol and Drug Abuse Patient Records regulations: The Federal rules restrict any use of the information to criminally investigate or prosecute any alcohol or drug abuse patient.[facility] HospitalIn the event this information is protected by the Federal Confidentiality of Alcohol and Drug Abuse Patient Records regulations: The Federal rules restrict any use of the information to criminally investigate or prosecute any alcohol or drug abuse patient.[facility] HospitalIn the event this information is protected by the Federal Confidentiality of Alcohol and Drug Abuse Patient Records regulations: The Federal rules restrict any use of the information to criminally investigate or prosecute any alcohol or drug abuse patient.[facility] HospitalIn the event this information is protected by the Federal Confidentiality of Alcohol and Drug Abuse Patient Records regulations: The Federal rules restrict any use of the information to criminally investigate or prosecute any alcohol or drug abuse patient.[facility] HospitalIn the event this information is protected by the Federal Confidentiality of Alcohol and Drug Abuse Patient Records regulations: The Federal rules restrict any use of the information to criminally investigate or prosecute any alcohol or drug abuse patient.[facility] HospitalIn the event this information is protected by the Federal Confidentiality of Alcohol and Drug Abuse Patient Records regulations: The Federal rules restrict any use of the information to criminally investigate or prosecute any alcohol or drug abuse patient.[facility] HospitalIn the event this information is protected by the Federal Confidentiality of Alcohol and Drug Abuse Patient Records regulations: The Federal rules restrict any use of the information to criminally investigate or prosecute any alcohol or drug abuse patient.[facility] HospitalIn the event this information is protected by the Federal Confidentiality of Alcohol and Drug Abuse Patient Records regulations: The Federal rules restrict any use of the information to criminally investigate or prosecute any alcohol or drug abuse patient.[facility] HospitalIn the event this information is protected by the Federal Confidentiality of Alcohol and Drug Abuse Patient Records regulations: The Federal rules restrict any use of the information to criminally investigate or prosecute any alcohol or drug abuse patient.[facility] HospitalIn the event this information is protected by the Federal Confidentiality of Alcohol and Drug Abuse Patient Records regulations: The Federal rules restrict any use of the information to criminally investigate or prosecute any alcohol or drug abuse patient.[facility] HospitalIn the event this information is protected by the Federal Confidentiality of Alcohol and Drug Abuse Patient Records regulations: The Federal rules restrict any use of the information to criminally investigate or prosecute any alcohol or drug abuse patient.[facility] HospitalIn the event this information is protected by the Federal Confidentiality of Alcohol and Drug Abuse Patient Records regulations: The Federal rules restrict any use of the information to criminally investigate or prosecute any alcohol or drug abuse patient.[facility] HospitalIn the event this information is protected by the Federal Confidentiality of Alcohol and Drug Abuse Patient Records regulations: The Federal rules restrict any use of the information to criminally investigate or prosecute any alcohol or drug abuse patient.[facility] HospitalIn the event this information is protected by the Federal Confidentiality of Alcohol and Drug Abuse Patient Records regulations: The Federal rules restrict any use of the information to criminally investigate or prosecute any alcohol or drug abuse patient.[facility] HospitalIn the event this information is protected by the Federal Confidentiality of Alcohol and Drug Abuse Patient Records regulations: The Federal rules restrict any use of the information to criminally investigate or prosecute any alcohol or drug abuse patient.[facility] HospitalIn the event this information is protected by the Federal Confidentiality of Alcohol and Drug Abuse Patient Records regulations: The Federal rules restrict any use of the information to criminally investigate or prosecute any alcohol or drug abuse patient.[facility] HospitalIn the event this information is protected by the Federal Confidentiality of Alcohol and Drug Abuse Patient Records regulations: The Federal rules restrict any use of the information to criminally investigate or prosecute any alcohol or drug abuse patient.[facility] HospitalIn the event this information is protected by the Federal Confidentiality of Alcohol and Drug Abuse Patient Records regulations: The Federal rules restrict any use of the information to criminally investigate or prosecute any alcohol or drug abuse patient.[facility] HospitalIn the event this information is protected by the Federal Confidentiality of Alcohol and Drug Abuse Patient Records regulations: The Federal rules restrict any use of the information to criminally investigate or prosecute any alcohol or drug abuse patient.[facility] HospitalIn the event this information is protected by the Federal Confidentiality of Alcohol and Drug Abuse Patient Records regulations: The Federal rules restrict any use of the information to criminally investigate or prosecute any alcohol or drug abuse patient.[facility] HospitalIn the event this information is protected by the Federal Confidentiality of Alcohol and Drug Abuse Patient Records regulations: The Federal rules restrict any use of the information to criminally investigate or prosecute any alcohol or drug abuse patient.[facility] HospitalIn the event this information is protected by the Federal Confidentiality of Alcohol and Drug Abuse Patient Records regulations: The Federal rules restrict any use of the information to criminally investigate or prosecute any alcohol or drug abuse patient.[facility] HospitalIn the event this information is protected by the Federal Confidentiality of Alcohol and Drug Abuse Patient Records regulations: The Federal rules restrict any use of the information to criminally investigate or prosecute any alcohol or drug abuse patient.[facility] HospitalIn the event this information is protected by the Federal Confidentiality of Alcohol and Drug Abuse Patient Records regulations: The Federal rules restrict any use of the information to criminally investigate or prosecute any alcohol or drug abuse patient.[facility] HospitalIn the event this information is protected by the Federal Confidentiality of Alcohol and Drug Abuse Patient Records regulations: The Federal rules restrict any use of the information to criminally investigate or prosecute any alcohol or drug abuse patient.[facility] HospitalIn the event this information is protected by the Federal Confidentiality of Alcohol and Drug Abuse Patient Records regulations: The Federal rules restrict any use of the information to criminally investigate or prosecute any alcohol or drug abuse patient.[facility] HospitalIn the event this information is protected by the Federal Confidentiality of Alcohol and Drug Abuse Patient Records regulations: The Federal rules restrict any use of the information to criminally investigate or prosecute any alcohol or drug abuse patient.[facility] HospitalIn the event this information is protected by the Federal Confidentiality of Alcohol and Drug Abuse Patient Records regulations: The Federal rules restrict any use of the information to criminally investigate or prosecute any alcohol or drug abuse patient.[facility] HospitalIn the event this information is protected by the Federal Confidentiality of Alcohol and Drug Abuse Patient Records regulations: The Federal rules restrict any use of the information to criminally investigate or prosecute any alcohol or drug abuse patient.[facility] HospitalIn the event this information is protected by the Federal Confidentiality of Alcohol and Drug Abuse Patient Records regulations: The Federal rules restrict any use of the information to criminally investigate or prosecute any alcohol or drug abuse patient.[facility] HospitalIn the event this information is protected by the Federal Confidentiality of Alcohol and Drug Abuse Patient Records regulations: The Federal rules restrict any use of the information to criminally investigate or prosecute any alcohol or drug abuse patient.[facility] HospitalIn the event this information is protected by the Federal Confidentiality of Alcohol and Drug Abuse Patient Records regulations: The Federal rules restrict any use of the information to criminally investigate or prosecute any alcohol or drug abuse patient.[facility] HospitalIn the event this information is protected by the Federal Confidentiality of Alcohol and Drug Abuse Patient Records regulations: The Federal rules restrict any use of the information to criminally investigate or prosecute any alcohol or drug abuse patient.[facility] HospitalIn the event this information is protected by the Federal Confidentiality of Alcohol and Drug Abuse Patient Records regulations: The Federal rules restrict any use of the information to criminally investigate or prosecute any alcohol or drug abuse patient.[facility] HospitalIn the event this information is protected by the Federal Confidentiality of Alcohol and Drug Abuse Patient Records regulations: The Federal rules restrict any use of the information to criminally investigate or prosecute any alcohol or drug abuse patient.[facility] HospitalIn the event this information is protected by the Federal Confidentiality of Alcohol and Drug Abuse Patient Records regulations: The Federal rules restrict any use of the information to criminally investigate or prosecute any alcohol or drug abuse patient.[facility] HospitalIn the event this information is protected by the Federal Confidentiality of Alcohol and Drug Abuse Patient Records regulations: The Federal rules restrict any use of the information to criminally investigate or prosecute any alcohol or drug abuse patient.[facility] HospitalIn the event this information is protected by the Federal Confidentiality of Alcohol and Drug Abuse Patient Records regulations: The Federal rules restrict any use of the information to criminally investigate or prosecute any alcohol or drug abuse patient.[facility] HospitalIn the event this information is protected by the Federal Confidentiality of Alcohol and Drug Abuse Patient Records regulations: The Federal rules restrict any use of the information to criminally investigate or prosecute any alcohol or drug abuse patient.[facility] HospitalIn the event this information is protected by the Federal Confidentiality of Alcohol and Drug Abuse Patient Records regulations: The Federal rules restrict any use of the information to criminally investigate or prosecute any alcohol or drug abuse patient.[facility] HospitalIn the event this information is protected by the Federal Confidentiality of Alcohol and Drug Abuse Patient Records regulations: The Federal rules restrict any use of the information to criminally investigate or prosecute any alcohol or drug abuse patient.[facility] HospitalIn the event this information is protected by the Federal Confidentiality of Alcohol and Drug Abuse Patient Records regulations: The Federal rules restrict any use of the information to criminally investigate or prosecute any alcohol or drug abuse patient.[facility] HospitalIn the event this information is protected by the Federal Confidentiality of Alcohol and Drug Abuse Patient Records regulations: The Federal rules restrict any use of the information to criminally investigate or prosecute any alcohol or drug abuse patient.[facility] HospitalIn the event this information is protected by the Federal Confidentiality of Alcohol and Drug Abuse Patient Records regulations: The Federal rules restrict any use of the information to criminally investigate or prosecute any alcohol or drug abuse patient.[facility] HospitalIn the event this information is protected by the Federal Confidentiality of Alcohol and Drug Abuse Patient Records regulations: The Federal rules restrict any use of the information to criminally investigate or prosecute any alcohol or drug abuse patient.[facility]In the event this information is protected by the Federal Confidentiality of Alcohol and Drug Abuse Patient Records regulations: The Federal rules restrict any use of the information to criminally investigate or prosecute any alcohol or drug abuse patient.[facility] HospitalIn the event this information is protected by the Federal Confidentiality of Alcohol and Drug Abuse Patient Records regulations: The Federal rules restrict any use of the information to criminally investigate or prosecute any alcohol or drug abuse patient.[facility] HospitalIn the event this information is protected by the Federal Confidentiality of Alcohol and Drug Abuse Patient Records regulations: The Federal rules restrict any use of the information to criminally investigate or prosecute any alcohol or drug abuse patient.[facility]In the event this information is protected by the Federal Confidentiality of Alcohol and Drug Abuse Patient Records regulations: The Federal rules restrict any use of the information to criminally investigate or prosecute any alcohol or drug abuse patient.[facility]In the event this information is protected by the Federal Confidentiality of Alcohol and Drug Abuse Patient Records regulations: The Federal rules restrict any use of the information to criminally investigate or prosecute any alcohol or drug abuse patient.[facility] HospitalIn the event this information is protected by the Federal Confidentiality of Alcohol and Drug Abuse Patient Records regulations: The Federal rules restrict any use of the information to criminally investigate or prosecute any alcohol or drug abuse patient.[facility]In the event this information is protected by the Federal Confidentiality of Alcohol and Drug Abuse Patient Records regulations: The Federal rules restrict any use of the information to criminally investigate or prosecute any alcohol or drug abuse patient.[facility] HospitalIn the event this information is protected by the Federal Confidentiality of Alcohol and Drug Abuse Patient Records regulations: The Federal rules restrict any use of the information to criminally investigate or prosecute any alcohol or drug abuse patient.[facility]In the event this information is protected by the Federal Confidentiality of Alcohol and Drug Abuse Patient Records regulations: The Federal rules restrict any use of the information to criminally investigate or prosecute any alcohol or drug abuse patient.[facility]In the event this information is protected by the Federal Confidentiality of Alcohol and Drug Abuse Patient Records regulations: The Federal rules restrict any use of the information to criminally investigate or prosecute any alcohol or drug abuse patient.[facility]In the event this information is protected by the Federal Confidentiality of Alcohol and Drug Abuse Patient Records regulations: The Federal rules restrict any use of the information to criminally investigate or prosecute any alcohol or drug abuse patient.[facility]In the event this information is protected by the Federal Confidentiality of Alcohol and Drug Abuse Patient Records regulations: The Federal rules restrict any use of the information to criminally investigate or prosecute any alcohol or drug abuse patient.[facility]In the event this information is protected by the Federal Confidentiality of Alcohol and Drug Abuse Patient Records regulations: The Federal rules restrict any use of the information to criminally investigate or prosecute any alcohol or drug abuse patient.[facility]In the event this information is protected by the Federal Confidentiality of Alcohol and Drug Abuse Patient Records regulations: The Federal rules restrict any use of the information to criminally investigate or prosecute any alcohol or drug abuse patient.[facility]In the event this information is protected by the Federal Confidentiality of Alcohol and Drug Abuse Patient Records regulations: The Federal rules restrict any use of the information to criminally investigate or prosecute any alcohol or drug abuse patient.[facility]In the event this information is protected by the Federal Confidentiality of Alcohol and Drug Abuse Patient Records regulations: The Federal rules restrict any use of the information to criminally investigate or prosecute any alcohol or drug abuse patient.[facility]In the event this information is protected by the Federal Confidentiality of Alcohol and Drug Abuse Patient Records regulations: The Federal rules restrict any use of the information to criminally investigate or prosecute any alcohol or drug abuse patient.[facility] HospitalIn the event this information is protected by the Federal Confidentiality of Alcohol and Drug Abuse Patient Records regulations: The Federal rules restrict any use of the information to criminally investigate or prosecute any alcohol or drug abuse patient.[facility]In the event this information is protected by the Federal Confidentiality of Alcohol and Drug Abuse Patient Records regulations: The Federal rules restrict any use of the information to criminally investigate or prosecute any alcohol or drug abuse patient.[facility] HospitalIn the event this information is protected by the Federal Confidentiality of Alcohol and Drug Abuse Patient Records regulations: The Federal rules restrict any use of the information to criminally investigate or prosecute any alcohol or drug abuse patient.[facility]In the event this information is protected by the Federal Confidentiality of Alcohol and Drug Abuse Patient Records regulations: The Federal rules restrict any use of the information to criminally investigate or prosecute any alcohol or drug abuse patient.[facility] HospitalIn the event this information is protected by the Federal Confidentiality of Alcohol and Drug Abuse Patient Records regulations: The Federal rules restrict any use of the information to criminally investigate or prosecute any alcohol or drug abuse patient.[facility] HospitalIn the event this information is protected by the Federal Confidentiality of Alcohol and Drug Abuse Patient Records regulations: The Federal rules restrict any use of the information to criminally investigate or prosecute any alcohol or drug abuse patient.[facility] HospitalIn the event this information is protected by the Federal Confidentiality of Alcohol and Drug Abuse Patient Records regulations: The Federal rules restrict any use of the information to criminally investigate or prosecute any alcohol or drug abuse patient.[facility] HospitalIn the event this information is protected by the Federal Confidentiality of Alcohol and Drug Abuse Patient Records regulations: The Federal rules restrict any use of the information to criminally investigate or prosecute any alcohol or drug abuse patient.[facility] HospitalIn the event this information is protected by the Federal Confidentiality of Alcohol and Drug Abuse Patient Records regulations: The Federal rules restrict any use of the information to criminally investigate or prosecute any alcohol or drug abuse patient.[facility] HospitalIn the event this information is protected by the Federal Confidentiality of Alcohol and Drug Abuse Patient Records regulations: The Federal rules restrict any use of the information to criminally investigate or prosecute any alcohol or drug abuse patient.[facility] HospitalIn the event this information is protected by the Federal Confidentiality of Alcohol and Drug Abuse Patient Records regulations: The Federal rules restrict any use of the information to criminally investigate or prosecute any alcohol or drug abuse patient.[facility] HospitalIn the event this information is protected by the Federal Confidentiality of Alcohol and Drug Abuse Patient Records regulations: The Federal rules restrict any use of the information to criminally investigate or prosecute any alcohol or drug abuse patient.[facility] HospitalIn the event this information is protected by the Federal Confidentiality of Alcohol and Drug Abuse Patient Records regulations: The Federal rules restrict any use of the information to criminally investigate or prosecute any alcohol or drug abuse patient.[facility] HospitalIn the event this information is protected by the Federal Confidentiality of Alcohol and Drug Abuse Patient Records regulations: The Federal rules restrict any use of the information to criminally investigate or prosecute any alcohol or drug abuse patient.[facility] HospitalIn the event this information is protected by the Federal Confidentiality of Alcohol and Drug Abuse Patient Records regulations: The Federal rules restrict any use of the information to criminally investigate or prosecute any alcohol or drug abuse patient.[facility] HospitalIn the event this information is protected by the Federal Confidentiality of Alcohol and Drug Abuse Patient Records regulations: The Federal rules restrict any use of the information to criminally investigate or prosecute any alcohol or drug abuse patient.[facility] HospitalIn the event this information is protected by the Federal Confidentiality of Alcohol and Drug Abuse Patient Records regulations: The Federal rules restrict any use of the information to criminally investigate or prosecute any alcohol or drug abuse patient.[facility] HospitalIn the event this information is protected by the Federal Confidentiality of Alcohol and Drug Abuse Patient Records regulations: The Federal rules restrict any use of the information to criminally investigate or prosecute any alcohol or drug abuse patient.[facility] HospitalIn the event this information is protected by the Federal Confidentiality of Alcohol and Drug Abuse Patient Records regulations: The Federal rules restrict any use of the information to criminally investigate or prosecute any alcohol or drug abuse patient.[facility] HospitalIn the event this information is protected by the Federal Confidentiality of Alcohol and Drug Abuse Patient Records regulations: The Federal rules restrict any use of the information to criminally investigate or prosecute any alcohol or drug abuse patient.[facility] HospitalIn the event this information is protected by the Federal Confidentiality of Alcohol and Drug Abuse Patient Records regulations: The Federal rules restrict any use of the information to criminally investigate or prosecute any alcohol or drug abuse patient.[facility] HospitalIn the event this information is protected by the Federal Confidentiality of Alcohol and Drug Abuse Patient Records regulations: The Federal rules restrict any use of the information to criminally investigate or prosecute any alcohol or drug abuse patient.[facility] HospitalIn the event this information is protected by the Federal Confidentiality of Alcohol and Drug Abuse Patient Records regulations: The Federal rules restrict any use of the information to criminally investigate or prosecute any alcohol or drug abuse patient.[facility] HospitalIn the event this information is protected by the Federal Confidentiality of Alcohol and Drug Abuse Patient Records regulations: The Federal rules restrict any use of the information to criminally investigate or prosecute any alcohol or drug abuse patient.[facility] HospitalIn the event this information is protected by the Federal Confidentiality of Alcohol and Drug Abuse Patient Records regulations: The Federal rules restrict any use of the information to criminally investigate or prosecute any alcohol or drug abuse patient.[facility] HospitalIn the event this information is protected by the Federal Confidentiality of Alcohol and Drug Abuse Patient Records regulations: The Federal rules restrict any use of the information to criminally investigate or prosecute any alcohol or drug abuse patient.[facility] HospitalIn the event this information is protected by the Federal Confidentiality of Alcohol and Drug Abuse Patient Records regulations: The Federal rules restrict any use of the information to criminally investigate or prosecute any alcohol or drug abuse patient.[facility] HospitalIn the event this information is protected by the Federal Confidentiality of Alcohol and Drug Abuse Patient Records regulations: The Federal rules restrict any use of the information to criminally investigate or prosecute any alcohol or drug abuse patient.[facility] HospitalIn the event this information is protected by the Federal Confidentiality of Alcohol and Drug Abuse Patient Records regulations: The Federal rules restrict any use of the information to criminally investigate or prosecute any alcohol or drug abuse patient.[facility] HospitalIn the event this information is protected by the Federal Confidentiality of Alcohol and Drug Abuse Patient Records regulations: The Federal rules restrict any use of the information to criminally investigate or prosecute any alcohol or drug abuse patient.[facility] HospitalIn the event this information is protected by the Federal Confidentiality of Alcohol and Drug Abuse Patient Records regulations: The Federal rules restrict any use of the information to criminally investigate or prosecute any alcohol or drug abuse patient.[facility] HospitalIn the event this information is protected by the Federal Confidentiality of Alcohol and Drug Abuse Patient Records regulations: The Federal rules restrict any use of the information to criminally investigate or prosecute any alcohol or drug abuse patient.[facility] HospitalIn the event this information is protected by the Federal Confidentiality of Alcohol and Drug Abuse Patient Records regulations: The Federal rules restrict any use of the information to criminally investigate or prosecute any alcohol or drug abuse patient.[facility] HospitalIn the event this information is protected by the Federal Confidentiality of Alcohol and Drug Abuse Patient Records regulations: The Federal rules restrict any use of the information to criminally investigate or prosecute any alcohol or drug abuse patient.[facility] HospitalIn the event this information is protected by the Federal Confidentiality of Alcohol and Drug Abuse Patient Records regulations: The Federal rules restrict any use of the information to criminally investigate or prosecute any alcohol or drug abuse patient.[facility] HospitalIn the event this information is protected by the Federal Confidentiality of Alcohol and Drug Abuse Patient Records regulations: The Federal rules restrict any use of the information to criminally investigate or prosecute any alcohol or drug abuse patient.[facility] HospitalIn the event this information is protected by the Federal Confidentiality of Alcohol and Drug Abuse Patient Records regulations: The Federal rules restrict any use of the information to criminally investigate or prosecute any alcohol or drug abuse patient.[facility] HospitalIn the event this information is protected by the Federal Confidentiality of Alcohol and Drug Abuse Patient Records regulations: The Federal rules restrict any use of the information to criminally investigate or prosecute any alcohol or drug abuse patient.[facility] HospitalIn the event this information is protected by the Federal Confidentiality of Alcohol and Drug Abuse Patient Records regulations: The Federal rules restrict any use of the information to criminally investigate or prosecute any alcohol or drug abuse patient.[facility] HospitalIn the event this information is protected by the Federal Confidentiality of Alcohol and Drug Abuse Patient Records regulations: The Federal rules restrict any use of the information to criminally investigate or prosecute any alcohol or drug abuse patient.[facility] HospitalIn the event this information is protected by the Federal Confidentiality of Alcohol and Drug Abuse Patient Records regulations: The Federal rules restrict any use of the information to criminally investigate or prosecute any alcohol or drug abuse patient.[facility] HospitalIn the event this information is protected by the Federal Confidentiality of Alcohol and Drug Abuse Patient Records regulations: The Federal rules restrict any use of the information to criminally investigate or prosecute any alcohol or drug abuse patient.[facility] HospitalIn the event this information is protected by the Federal Confidentiality of Alcohol and Drug Abuse Patient Records regulations: The Federal rules restrict any use of the information to criminally investigate or prosecute any alcohol or drug abuse patient.[facility] HospitalIn the event this information is protected by the Federal Confidentiality of Alcohol and Drug Abuse Patient Records regulations: The Federal rules restrict any use of the information to criminally investigate or prosecute any alcohol or drug abuse patient.[facility] HospitalIn the event this information is protected by the Federal Confidentiality of Alcohol and Drug Abuse Patient Records regulations: The Federal rules restrict any use of the information to criminally investigate or prosecute any alcohol or drug abuse patient.[facility] HospitalIn the event this information is protected by the Federal Confidentiality of Alcohol and Drug Abuse Patient Records regulations: The Federal rules restrict any use of the information to criminally investigate or prosecute any alcohol or drug abuse patient.[facility] HospitalIn the event this information is protected by the Federal Confidentiality of Alcohol and Drug Abuse Patient Records regulations: The Federal rules restrict any use of the information to criminally investigate or prosecute any alcohol or drug abuse patient.[facility] HospitalIn the event this information is protected by the Federal Confidentiality of Alcohol and Drug Abuse Patient Records regulations: The Federal rules restrict any use of the information to criminally investigate or prosecute any alcohol or drug abuse patient.[facility] HospitalIn the event this information is protected by the Federal Confidentiality of Alcohol and Drug Abuse Patient Records regulations: The Federal rules restrict any use of the information to criminally investigate or prosecute any alcohol or drug abuse patient.[facility] HospitalIn the event this information is protected by the Federal Confidentiality of Alcohol and Drug Abuse Patient Records regulations: The Federal rules restrict any use of the information to criminally investigate or prosecute any alcohol or drug abuse patient.[facility] HospitalIn the event this information is protected by the Federal Confidentiality of Alcohol and Drug Abuse Patient Records regulations: The Federal rules restrict any use of the information to criminally investigate or prosecute any alcohol or drug abuse patient.[facility] HospitalIn the event this information is protected by the Federal Confidentiality of Alcohol and Drug Abuse Patient Records regulations: The Federal rules restrict any use of the information to criminally investigate or prosecute any alcohol or drug abuse patient.[facility] HospitalIn the event this information is protected by the Federal Confidentiality of Alcohol and Drug Abuse Patient Records regulations: The Federal rules restrict any use of the information to criminally investigate or prosecute any alcohol or drug abuse patient.[facility] HospitalIn the event this information is protected by the Federal Confidentiality of Alcohol and Drug Abuse Patient Records regulations: The Federal rules restrict any use of the information to criminally investigate or prosecute any alcohol or drug abuse patient.[facility] HospitalIn the event this information is protected by the Federal Confidentiality of Alcohol and Drug Abuse Patient Records regulations: The Federal rules restrict any use of the information to criminally investigate or prosecute any alcohol or drug abuse patient.[facility] HospitalIn the event this information is protected by the Federal Confidentiality of Alcohol and Drug Abuse Patient Records regulations: The Federal rules restrict any use of the information to criminally investigate or prosecute any alcohol or drug abuse patient.[facility] HospitalIn the event this information is protected by the Federal Confidentiality of Alcohol and Drug Abuse Patient Records regulations: The Federal rules restrict any use of the information to criminally investigate or prosecute any alcohol or drug abuse patient.[facility] HospitalIn the event this information is protected by the Federal Confidentiality of Alcohol and Drug Abuse Patient Records regulations: The Federal rules restrict any use of the information to criminally investigate or prosecute any alcohol or drug abuse patient.[facility] HospitalIn the event this information is protected by the Federal Confidentiality of Alcohol and Drug Abuse Patient Records regulations: The Federal rules restrict any use of the information to criminally investigate or prosecute any alcohol or drug abuse patient.[facility] HospitalIn the event this information is protected by the Federal Confidentiality of Alcohol and Drug Abuse Patient Records regulations: The Federal rules restrict any use of the information to criminally investigate or prosecute any alcohol or drug abuse patient.[facility] HospitalIn the event this information is protected by the Federal Confidentiality of Alcohol and Drug Abuse Patient Records regulations: The Federal rules restrict any use of the information to criminally investigate or prosecute any alcohol or drug abuse patient.[facility] HospitalIn the event this information is protected by the Federal Confidentiality of Alcohol and Drug Abuse Patient Records regulations: The Federal rules restrict any use of the information to criminally investigate or prosecute any alcohol or drug abuse patient.[facility] HospitalIn the event this information is protected by the Federal Confidentiality of Alcohol and Drug Abuse Patient Records regulations: The Federal rules restrict any use of the information to criminally investigate or prosecute any alcohol or drug abuse patient.[facility] HospitalIn the event this information is protected by the Federal Confidentiality of Alcohol and Drug Abuse Patient Records regulations: The Federal rules restrict any use of the information to criminally investigate or prosecute any alcohol or drug abuse patient.[facility] HospitalIn the event this information is protected by the Federal Confidentiality of Alcohol and Drug Abuse Patient Records regulations: The Federal rules restrict any use of the information to criminally investigate or prosecute any alcohol or drug abuse patient.[facility] HospitalIn the event this information is protected by the Federal Confidentiality of Alcohol and Drug Abuse Patient Records regulations: The Federal rules restrict any use of the information to criminally investigate or prosecute any alcohol or drug abuse patient.[facility] HospitalIn the event this information is protected by the Federal Confidentiality of Alcohol and Drug Abuse Patient Records regulations: The Federal rules restrict any use of the information to criminally investigate or prosecute any alcohol or drug abuse patient.[facility] HospitalIn the event this information is protected by the Federal Confidentiality of Alcohol and Drug Abuse Patient Records regulations: The Federal rules restrict any use of the information to criminally investigate or prosecute any alcohol or drug abuse patient.[facility] HospitalIn the event this information is protected by the Federal Confidentiality of Alcohol and Drug Abuse Patient Records regulations: The Federal rules restrict any use of the information to criminally investigate or prosecute any alcohol or drug abuse patient.[facility]In the event this information is protected by the Federal Confidentiality of Alcohol and Drug Abuse Patient Records regulations: The Federal rules restrict any use of the information to criminally investigate or prosecute any alcohol or drug abuse patient.[facility] HospitalIn the event this information is protected by the Federal Confidentiality of Alcohol and Drug Abuse Patient Records regulations: The Federal rules restrict any use of the information to criminally investigate or prosecute any alcohol or drug abuse patient.[facility] HospitalIn the event this information is protected by the Federal Confidentiality of Alcohol and Drug Abuse Patient Records regulations: The Federal rules restrict any use of the information to criminally investigate or prosecute any alcohol or drug abuse patient.[facility]In the event this information is protected by the Federal Confidentiality of Alcohol and Drug Abuse Patient Records regulations: The Federal rules restrict any use of the information to criminally investigate or prosecute any alcohol or drug abuse patient.[facility]In the event this information is protected by the Federal Confidentiality of Alcohol and Drug Abuse Patient Records regulations: The Federal rules restrict any use of the information to criminally investigate or prosecute any alcohol or drug abuse patient.[facility] HospitalIn the event this information is protected by the Federal Confidentiality of Alcohol and Drug Abuse Patient Records regulations: The Federal rules restrict any use of the information to criminally investigate or prosecute any alcohol or drug abuse patient.[facility]In the event this information is protected by the Federal Confidentiality of Alcohol and Drug Abuse Patient Records regulations: The Federal rules restrict any use of the information to criminally investigate or prosecute any alcohol or drug abuse patient.[facility] HospitalIn the event this information is protected by the Federal Confidentiality of Alcohol and Drug Abuse Patient Records regulations: The Federal rules restrict any use of the information to criminally investigate or prosecute any alcohol or drug abuse patient.[facility]In the event this information is protected by the Federal Confidentiality of Alcohol and Drug Abuse Patient Records regulations: The Federal rules restrict any use of the information to criminally investigate or prosecute any alcohol or drug abuse patient.[facility]In the event this information is protected by the Federal Confidentiality of Alcohol and Drug Abuse Patient Records regulations: The Federal rules restrict any use of the information to criminally investigate or prosecute any alcohol or drug abuse patient.[facility]In the event this information is protected by the Federal Confidentiality of Alcohol and Drug Abuse Patient Records regulations: The Federal rules restrict any use of the information to criminally investigate or prosecute any alcohol or drug abuse patient.[facility]In the event this information is protected by the Federal Confidentiality of Alcohol and Drug Abuse Patient Records regulations: The Federal rules restrict any use of the information to criminally investigate or prosecute any alcohol or drug abuse patient.[facility]In the event this information is protected by the Federal Confidentiality of Alcohol and Drug Abuse Patient Records regulations: The Federal rules restrict any use of the information to criminally investigate or prosecute any alcohol or drug abuse patient.[facility]In the event this information is protected by the Federal Confidentiality of Alcohol and Drug Abuse Patient Records regulations: The Federal rules restrict any use of the information to criminally investigate or prosecute any alcohol or drug abuse patient.[facility]In the event this information is protected by the Federal Confidentiality of Alcohol and Drug Abuse Patient Records regulations: The Federal rules restrict any use of the information to criminally investigate or prosecute any alcohol or drug abuse patient.[facility]In the event this information is protected by the Federal Confidentiality of Alcohol and Drug Abuse Patient Records regulations: The Federal rules restrict any use of the information to criminally investigate or prosecute any alcohol or drug abuse patient.[facility]In the event this information is protected by the Federal Confidentiality of Alcohol and Drug Abuse Patient Records regulations: The Federal rules restrict any use of the information to criminally investigate or prosecute any alcohol or drug abuse patient.[facility] HospitalIn the event this information is protected by the Federal Confidentiality of Alcohol and Drug Abuse Patient Records regulations: The Federal rules restrict any use of the information to criminally investigate or prosecute any alcohol or drug abuse patient.[facility]In the event this information is protected by the Federal Confidentiality of Alcohol and Drug Abuse Patient Records regulations: The Federal rules restrict any use of the information to criminally investigate or prosecute any alcohol or drug abuse patient.[facility] HospitalIn the event this information is protected by the Federal Confidentiality of Alcohol and Drug Abuse Patient Records regulations: The Federal rules restrict any use of the information to criminally investigate or prosecute any alcohol or drug abuse patient.[facility] HospitalIn the event this information is protected by the Federal Confidentiality of Alcohol and Drug Abuse Patient Records regulations: The Federal rules restrict any use of the information to criminally investigate or prosecute any alcohol or drug abuse patient.[facility] HospitalIn the event this information is protected by the Federal Confidentiality of Alcohol and Drug Abuse Patient Records regulations: The Federal rules restrict any use of the information to criminally investigate or prosecute any alcohol or drug abuse patient.[facility] HospitalIn the event this information is protected by the Federal Confidentiality of Alcohol and Drug Abuse Patient Records regulations: The Federal rules restrict any use of the information to criminally investigate or prosecute any alcohol or drug abuse patient.[facility] HospitalIn the event this information is protected by the Federal Confidentiality of Alcohol and Drug Abuse Patient Records regulations: The Federal rules restrict any use of the information to criminally investigate or prosecute any alcohol or drug abuse patient.[facility] HospitalIn the event this information is protected by the Federal Confidentiality of Alcohol and Drug Abuse Patient Records regulations: The Federal rules restrict any use of the information to criminally investigate or prosecute any alcohol or drug abuse patient.[facility] HospitalIn the event this information is protected by the Federal Confidentiality of Alcohol and Drug Abuse Patient Records regulations: The Federal rules restrict any use of the information to criminally investigate or prosecute any alcohol or drug abuse patient.[facility] HospitalIn the event this information is protected by the Federal Confidentiality of Alcohol and Drug Abuse Patient Records regulations: The Federal rules restrict any use of the information to criminally investigate or prosecute any alcohol or drug abuse patient.[facility] HospitalIn the event this information is protected by the Federal Confidentiality of Alcohol and Drug Abuse Patient Records regulations: The Federal rules restrict any use of the information to criminally investigate or prosecute any alcohol or drug abuse patient.[facility] HospitalIn the event this information is protected by the Federal Confidentiality of Alcohol and Drug Abuse Patient Records regulations: The Federal rules restrict any use of the information to criminally investigate or prosecute any alcohol or drug abuse patient.[facility] HospitalIn the event this information is protected by the Federal Confidentiality of Alcohol and Drug Abuse Patient Records regulations: The Federal rules restrict any use of the information to criminally investigate or prosecute any alcohol or drug abuse patient.[facility] HospitalIn the event this information is protected by the Federal Confidentiality of Alcohol and Drug Abuse Patient Records regulations: The Federal rules restrict any use of the information to criminally investigate or prosecute any alcohol or drug abuse patient.[facility] HospitalIn the event this information is protected by the Federal Confidentiality of Alcohol and Drug Abuse Patient Records regulations: The Federal rules restrict any use of the information to criminally investigate or prosecute any alcohol or drug abuse patient.[facility] HospitalIn the event this information is protected by the Federal Confidentiality of Alcohol and Drug Abuse Patient Records regulations: The Federal rules restrict any use of the information to criminally investigate or prosecute any alcohol or drug abuse patient.[facility] HospitalIn the event this information is protected by the Federal Confidentiality of Alcohol and Drug Abuse Patient Records regulations: The Federal rules restrict any use of the information to criminally investigate or prosecute any alcohol or drug abuse patient.[facility] HospitalIn the event this information is protected by the Federal Confidentiality of Alcohol and Drug Abuse Patient Records regulations: The Federal rules restrict any use of the information to criminally investigate or prosecute any alcohol or drug abuse patient.[facility] HospitalIn the event this information is protected by the Federal Confidentiality of Alcohol and Drug Abuse Patient Records regulations: The Federal rules restrict any use of the information to criminally investigate or prosecute any alcohol or drug abuse patient.[facility] HospitalIn the event this information is protected by the Federal Confidentiality of Alcohol and Drug Abuse Patient Records regulations: The Federal rules restrict any use of the information to criminally investigate or prosecute any alcohol or drug abuse patient.[facility] HospitalIn the event this information is protected by the Federal Confidentiality of Alcohol and Drug Abuse Patient Records regulations: The Federal rules restrict any use of the information to criminally investigate or prosecute any alcohol or drug abuse patient.[facility] HospitalIn the event this information is protected by the Federal Confidentiality of Alcohol and Drug Abuse Patient Records regulations: The Federal rules restrict any use of the information to criminally investigate or prosecute any alcohol or drug abuse patient.[facility] HospitalIn the event this information is protected by the Federal Confidentiality of Alcohol and Drug Abuse Patient Records regulations: The Federal rules restrict any use of the information to criminally investigate or prosecute any alcohol or drug abuse patient.[facility] HospitalIn the event this information is protected by the Federal Confidentiality of Alcohol and Drug Abuse Patient Records regulations: The Federal rules restrict any use of the information to criminally investigate or prosecute any alcohol or drug abuse patient.[facility] HospitalIn the event this information is protected by the Federal Confidentiality of Alcohol and Drug Abuse Patient Records regulations: The Federal rules restrict any use of the information to criminally investigate or prosecute any alcohol or drug abuse patient.[facility] HospitalIn the event this information is protected by the Federal Confidentiality of Alcohol and Drug Abuse Patient Records regulations: The Federal rules restrict any use of the information to criminally investigate or prosecute any alcohol or drug abuse patient.[facility] HospitalIn the event this information is protected by the Federal Confidentiality of Alcohol and Drug Abuse Patient Records regulations: The Federal rules restrict any use of the information to criminally investigate or prosecute any alcohol or drug abuse patient.[facility] HospitalIn the event this information is protected by the Federal Confidentiality of Alcohol and Drug Abuse Patient Records regulations: The Federal rules restrict any use of the information to criminally investigate or prosecute any alcohol or drug abuse patient.[facility] HospitalIn the event this information is protected by the Federal Confidentiality of Alcohol and Drug Abuse Patient Records regulations: The Federal rules restrict any use of the information to criminally investigate or prosecute any alcohol or drug abuse patient.[facility] HospitalIn the event this information is protected by the Federal Confidentiality of Alcohol and Drug Abuse Patient Records regulations: The Federal rules restrict any use of the information to criminally investigate or prosecute any alcohol or drug abuse patient.[facility] HospitalIn the event this information is protected by the Federal Confidentiality of Alcohol and Drug Abuse Patient Records regulations: The Federal rules restrict any use of the information to criminally investigate or prosecute any alcohol or drug abuse patient.[facility] HospitalIn the event this information is protected by the Federal Confidentiality of Alcohol and Drug Abuse Patient Records regulations: The Federal rules restrict any use of the information to criminally investigate or prosecute any alcohol or drug abuse patient.[facility] HospitalIn the event this information is protected by the Federal Confidentiality of Alcohol and Drug Abuse Patient Records regulations: The Federal rules restrict any use of the information to criminally investigate or prosecute any alcohol or drug abuse patient.[facility] HospitalIn the event this information is protected by the Federal Confidentiality of Alcohol and Drug Abuse Patient Records regulations: The Federal rules restrict any use of the information to criminally investigate or prosecute any alcohol or drug abuse patient.[facility] HospitalIn the event this information is protected by the Federal Confidentiality of Alcohol and Drug Abuse Patient Records regulations: The Federal rules restrict any use of the information to criminally investigate or prosecute any alcohol or drug abuse patient.[facility] HospitalIn the event this information is protected by the Federal Confidentiality of Alcohol and Drug Abuse Patient Records regulations: The Federal rules restrict any use of the information to criminally investigate or prosecute any alcohol or drug abuse patient.[facility] HospitalIn the event this information is protected by the Federal Confidentiality of Alcohol and Drug Abuse Patient Records regulations: The Federal rules restrict any use of the information to criminally investigate or prosecute any alcohol or drug abuse patient.[facility] HospitalIn the event this information is protected by the Federal Confidentiality of Alcohol and Drug Abuse Patient Records regulations: The Federal rules restrict any use of the information to criminally investigate or prosecute any alcohol or drug abuse patient.[facility] HospitalIn the event this information is protected by the Federal Confidentiality of Alcohol and Drug Abuse Patient Records regulations: The Federal rules restrict any use of the information to criminally investigate or prosecute any alcohol or drug abuse patient.[facility] HospitalIn the event this information is protected by the Federal Confidentiality of Alcohol and Drug Abuse Patient Records regulations: The Federal rules restrict any use of the information to criminally investigate or prosecute any alcohol or drug abuse patient.[facility] HospitalIn the event this information is protected by the Federal Confidentiality of Alcohol and Drug Abuse Patient Records regulations: The Federal rules restrict any use of the information to criminally investigate or prosecute any alcohol or drug abuse patient.[facility] HospitalIn the event this information is protected by the Federal Confidentiality of Alcohol and Drug Abuse Patient Records regulations: The Federal rules restrict any use of the information to criminally investigate or prosecute any alcohol or drug abuse patient.[facility] HospitalIn the event this information is protected by the Federal Confidentiality of Alcohol and Drug Abuse Patient Records regulations: The Federal rules restrict any use of the information to criminally investigate or prosecute any alcohol or drug abuse patient.[facility] HospitalIn the event this information is protected by the Federal Confidentiality of Alcohol and Drug Abuse Patient Records regulations: The Federal rules restrict any use of the information to criminally investigate or prosecute any alcohol or drug abuse patient.[facility] HospitalIn the event this information is protected by the Federal Confidentiality of Alcohol and Drug Abuse Patient Records regulations: The Federal rules restrict any use of the information to criminally investigate or prosecute any alcohol or drug abuse patient.[facility] HospitalIn the event this information is protected by the Federal Confidentiality of Alcohol and Drug Abuse Patient Records regulations: The Federal rules restrict any use of the information to criminally investigate or prosecute any alcohol or drug abuse patient.[facility] Reason for Visit (unrecogniz ed section and content) Reason Comments Results Reason Comments Orders Reason Comments Derm Problem Follow up lupus Reason Comments Imm/Inj Reason Comments Patient Question Reason Comments Established Patient Reason Comments Radiology XR Reason Comments Yearly Exam Reason Comments Appointment Reason Comments Spirometry Specialty Diagnoses / Procedures Referred By Contac t Referred To [facility] [place] Diagnoses Interstitial pulmonary disease (HCC) Procedures LUNG VOLUMES Boaz Pineda DO [address], [id number] [place] [address] [facility] [address] [place] [address] Referral ID Status Reason Start Date Expiration Date V isits Requested Visits Authorized [id number] Closed Auto-Generate d Referral 12/26/2021 02/04/2022 1 1 Specialty Diagnoses / Procedures Referred By Contac t Referred To [facility] [place] Diagnoses Interstitial pulmonary disease (HCC) Procedures SPIROMETRY - BASELINE AND POST DILATOR BRNCDILAT RSPSE SPMTRY PRE&POST-BRNCDILAT ADMN Boaz Pineda DO [address], [id number] [place] [address] [facility] [place] [address] [place] [address] Referral ID Status Reason Start Date Expiration Date V isits Requested Visits Authorized [id number] Closed Auto-Generate d Referral 12/26/2021 02/04/2022 1 1 Specialty Diagnoses / Procedures Referred By Contac t Referred To [facility] [place] Diagnoses Interstitial pulmonary disease (HCC) Procedures LUNG DIFFUSION CAPACITY (DLCO) DIFFUSING CAPACITY Boaz Pineda [address], [id number] [place] [address] [facility] [place] [address] [place] [address] Referral ID Status Reason Start Date Expiration Date V isits Requested Visits Authorized [id number] Closed Auto-Generate d Referral 12/26/2021 02/04/2022 1 1 Reason Comments New Reason Comments Headache cough, nasal congest ion x 1 day Reason Comments Yearly Exam Reason Comments Refill Request Reason Onset Date Comments Refill Request 04/29/2022 Reason Comments Informed Consent IRB#[id number], Lupus Re gistry, ID: [id number], Baseline Reason Comments Follow Up Lupus Reason Comments Radiology CT Specialty Diagnoses / Procedures Referred By Contac t Referred To Contact CT IMAGING Diagnoses Interstitial pulmonary disease (HCC) Wheezing Procedures CT CHEST WO IVCON DIAGNOSTIC COMPUTED TOMOGRAPHY THORAX W/O CNTRST Boaz Pineda, [address], [id number] [place] [address] [facility] [place] [address] Referral ID Status Reason Start Date Expiration Date V isits Requested Visits Authorized [id number] Closed Auto-Generate d Referral 11/14/2021 12/05/2021 1 1 Reason Comments Radiology US Specialty Diagnoses / Procedures Referred By Contac t Referred To Contact US IMAGING Diagnoses Primary sclerosing cholangitis Procedures US ABD RIGHT UPPER QUADRANT US ABDOMINAL REAL TIME W/IMAGE LIMITED Allen Valdes MD [address] [place] [address] [facility] [place] [address] Referral ID Status Reason Start Date Expiration Date V isits Requested Visits Authorized [id number] Closed Auto-Generate d Referral 11/26/2022 12/26/2023 1 1 Specialty Diagnoses / Procedures Referred By Contac t [facility] Diagnoses Interstitial pulmonary disease (HCC) Lupus disease of lung (HCC) Procedures LUNG DIFFUSION CAPACITY (DLCO) DIFFUSING CAPACITY Lindsey Hightower MD [address] [place] [address] [facility] [place] [address] [place] [address] Referral ID Status Reason Start Date Expiration Date V isits Requested Visits Authorized [id number] Closed Auto-Generate d Referral 12/29/2022 02/04/2023 1 1 Reason Comments Research F/U IRB#[id number], Lupus Re gistry, ID:[id number], F/U 1 Reason Comments Established Patient Yearly follow up Specialty Diagnoses / Procedures Referred By Contac t Referred To Contact MR IMAGING Diagnoses Calculus of gallbladder without cholecystitis without obstruction Procedures MRI PANC/ARMANDO WO/W IVCON MRI ABDOMEN W/O & W/CONTRAST MATERIAL Allen Valdes MD [address] [place] [address] [facility] [place] [address] Referral ID Status Reason Start Date Expiration Date V isits Requested Visits Authorized [id number] Closed Auto-Generate d Referral 06/22/2023 06/22/2023 1 1 Specialty Diagnoses / Procedures Referred By Contac t Ref[facility] Diagnoses Interstitial pulmonary disease (HCC) Procedures SPIROMETRY WITH DILATOR IF OBSTRUCTED BRNCDILAT RSPSE SPMTRY PRE&POST-BRNCDILAT ADMN Lindsey Hightower MD [address] [place] [address] [facility] [place] [address] [place] [address] Referral ID Status Reason Start Date Expiration Date V isits Requested Visits Authorized [id number] Closed Auto-Generate d Referral 06/01/2023 02/05/2024 1 1 Specialty Diagnoses / Procedures Referred By Contac t Referred To Contact [facility] Diagnoses Interstitial pulmonary disease (HCC) Procedures LUNG DIFFUSION CAPACITY (DLCO) DIFFUSING CAPACITY Lnidsey Hightower MD [address] [place] [address] [facility] [place] [address] [place] [address] Referral ID Status Reason Start Date Expiration Date V isits Requested Visits Authorized [id number] Closed Auto-Generate d Referral 02/05/2023 02/05/2024 1 1 Reason Comments New Patient ILD Reason Comments Radiology CT Specialty Diagnoses / Procedures Referred By Contac t Referred To Contact CT IMAGING Diagnoses Interstitial pulmonary disease (HCC) Procedures CT CHEST WO IVCON DIAGNOSTIC COMPUTED TOMOGRAPHY THORAX W/O CNTRST Lindsey Hightower MD [address] [place] [id number] [facility] [place] [address] Referral ID Status Reason Start Date Expiration Date V isits Requested Visits Authorized [id number] Closed Auto-Generate d Referral 07/05/2023 07/05/2023 1 1 Reason Comments Results PET scan Reason Onset Date Comments Bronchoscopy Scheduling 07/20/2023 Initial Bronch Request Reason Comments Appointment PreOp Bronch Reason Comments Results EBUS Reason Comments Results biopsy Reason Comments Orders Specialty Diagnoses / Procedures [facility] Diagnoses Malignant neoplasm of upper lobe of right lung (HCC) Procedures MRI BRAIN WO/W IVCON MRI BRAIN BRAIN STEM W/O W/CONTRAST MATERIAL Ny Ross MD [address] [place] [id number] [facility] [place] [address] Referral ID Status Reason Start Date Expiration Date V isits Requested Visits Authorized [id number] Closed Auto-Generate d Referral 09/21/2023 09/21/2023 1 1 Reason Comments Results MRI brain Reason Comments Consult RLL lung cancer Specialty Diagnoses / Procedures [facility] Diagnoses Malignant neoplasm of lower lobe of right lung (HCC) Procedures SIX MINUTE WALK CARDIOPULMONARY EXERCISE STRESS PULMONARY STRESS TESTING Janett Feliciano MD, PhD [address] [facility] [address] [place] [address] [facility] [place] [facility] [place] [address] Referral ID Status Reason Start Date Expiration Date V isits Requested Visits Authorized [id number] Closed Auto-Generate d Referral 09/26/2023 02/05/2024 1 1 Reason Comments Consult Reason Comments New Patient Reason Comments Derm Problem Lupus Reason Comments Established Patient Follow Up Hepatitis Reason Comments New Patient Evaluation Specialty Diagnoses / Procedures Referred By Contac t Referred To Contact Diagnoses Obesity, Class I, BMI 30-34.9 Personal history of malignant neoplasm of bronchus and lung Procedures CONSULT TO HEMATOLOGY/ONCOLOGY OFFICE/OUTPATIENT NEW HIGH MDM 60 MINUTES Janett Feliciano MD, PhD [address] [address] Referral ID Status Reason Start Date Expiration Date V isits Requested Visits Authorized [id number] Closed PCP Requested Referral 10/11/2023 10/03/2024 1 1 Specialty Diagnoses / Procedures [facility] Diagnoses Cancer of lower lobe of right lung (HCC) Procedures CT CHEST W IVCON DIAGNOSTIC COMPUTED TOMOGRAPHY THORAX W/CONTRAST Alf Castle, DO [address] [place] [address] [place] [address] Referral ID Status Reason Start Date Expiration Date V isits Requested Visits Authorized [id number] Closed Auto-Generat ed Referral Patient Cleared - Admin/Chairm an/Director advise to proceed or did not respond 10/22/2023 02/05/2024 1 1 Reason Comments no answer Patient did not answ er phone for visit Reason Comments [facility] 10/30/2023 Reason Comments Pre-Op Visit Reason Comments Follow Up Reason Comments Lung Cancer Reason Comments FMLA Paperwork Reason Comments Orders Stress test Reason Comments Radiology [place] Specialty Diagnoses / Procedures [facility]erred By [facility] Referred To Contact MOLECULAR & FUNCTIONAL IMAGING Diagnoses Malignant neoplasm of lower lobe of right lung (HCC) Encounter for other preprocedural examination Procedures NM CARDIAC PERF STRESS/EXERCISE MYOCARDIAL SPECT MULTIPLE STUDIES Janett Feliciano MD, PhD [address] [address] [facility] [address] [place] [address] Referral ID Status Reason Start Date Expiration Date V isits Requested Visits Authorized [id number] Closed Auto-Generate d Referral 11/29/2023 11/29/2023 1 1 Reason Comments Social Work Services Reason Comments Scaler - Other Schedule/questi ons Reason Comments First Time Treatment Education Cisplatin /Alimta/Keytruda Reason Comments Chemotherapy Treatment Specialty Diagnoses / Procedures [facility] To Contact Diagnoses Non-small cell cancer of right lung (HCC) Procedures CISPLATIN 10 MG INJECTION PALONOSETRON HCL INJECTION, PEMETREXED, NOT OTHERWISE SPECIFIED, 10 MG INJ PEMBROLIZUMAB FOSAPREPITANT INJECTION Alf Castle, DO [address] [place] [address] [facility] [address] [place] [address] Referral ID Status Reason Start Date Expiration Date V isits Requested Visits Authorized [id number] Authorized 11/28/2023 12/10/2024 4 4 Reason Comments Medication Problem Reason Comments Opened In Error Reason Comments Scaler - Other Reason Onset Date Comments Refill Request 01/01/2024 Reason Comments Non-Chemotherapy Treatment Reason Onset Date Comments Refill Request 01/23/2024 Reason Comments Received Outside Medical Records Reason Comments Results Reason Comments avs 01/23/24 Reason Comments Patient Update Chemo treatment eleuterio yed/rescheduled Specialty Diagnoses / Procedures Referred By Contac t Referred To Contact CT IMAGING Diagnoses Non-small cell cancer of right lung (HCC) Procedures CT ABD/PEL WO IVCON CT ABD & PELVIS W/O CONTRAST Alf Castle, DO [address] [place] [address] [place] [address] Referral ID Status Reason Start Date Expiration Date V isits Requested Visits Authorized [id number] Closed Auto-Generate d Referral 02/12/2024 02/04/2025 1 1 Reason Comments Post Induction Completion note Completed chemo 02/11/2024 Referral ID Status Reason Start Date Expiration Date V isits Requested Visits Authorized [id number] Authorized 11/28/2023 12/10/2024 17 17 Reason Comments Schedule Surgery Robotic RLL lung res ection 03/31/2024 Referral ID Status Reason Start Date Expiration Date V isits Requested Visits Authorized [id number] Closed Auto-Generate d Referral 02/27/2024 02/04/2025 1 1 Specialty Diagnoses / Procedures Referred By Contac t Referred [facility] Contact [facility] Diagnoses Malignant neoplasm of lower lobe of right lung (HCC) Procedures SPIROMETRY WITH DILATOR IF OBSTRUCTED BRNCDILAT RSPSE SPMTRY PRE&POST-BRNCDILAT Janett Grace MD, PhD [address] [facility] [address] [place] [address] [facility] [place] [address] [place] [id number] Referral ID Status Reason Start Date Expiration Date V isits Requested Visits Authorized [id number] Closed Auto-Generate d Referral 02/27/2024 02/04/2025 1 1 Specialty Diagnoses / Procedures Referred By Contac t Referred To Contact [facility] Diagnoses Malignant neoplasm of lower lobe of right lung (HCC) Procedures LUNG DIFFUSION CAPACITY (DLCO) DIFFUSING CAPACITY Janett Feliciano MD, PhD [address] [facility] [place] [address] [address] Referral ID Status Reason Start Date Expiration Date V isits Requested Visits Authorized [id number] Closed Auto-Generate d Referral 02/27/2024 02/04/2025 1 1 Reason Comments Research F/U IRB #[id number], Lupus R egistry, ID: [id number] F/U 2 Reason Comments Results Reason Comments Consult Reason Comments Patient Question Reason Comments Pre-Op Visit ROBOTIC THORACOSCOPY ; RLL lung resection LOBECTOMY, TOTAL OR SEGMENTAL - Right Reason Comments Pre-Op Exam Reason Comments Scaler - Other Follow-up Reason Comments Established Patient Specialty Diagnoses / Procedures Referred By Contac t Referred To Contact CT IMAGING Diagnoses Non-small cell cancer of right lung (HCC) Procedures CT CHEST WO IVCON DIAGNOSTIC COMPUTED TOMOGRAPHY THORAX W/O CNTRST Alf Castle DO [address] [place] [address] Phone: tel: fax: [place] [phone] Referral ID Status Reason Start Date Expiration Date V isits Requested Visits Authorized [id number] Closed Auto-Generate d Referral 04/11/2024 02/04/2025 1 1 Reason Onset Date Comments Refill Request 04/16/2024 Specialty Diagnoses / Procedures Referred By Contac t Referred To Contact [facility] Diagnoses Elevated LFTs Procedures US ABD RIGHT UPPER QUADRANT US ABDOMINAL REAL TIME W/IMAGE LIMITED Alf Castle DO [address] [place] [address] Phone: tel: fax: [facility] [place] [phone] Referral ID Status Reason Start Date Expiration Date V isits Requested Visits Authorized [id number] Closed Auto-Generate d Referral 04/26/2024 05/26/2025 1 1 Reason Comments Radio Main J1 Reason Comments AVS 05/21 Reason Comments Post-Op Visit Reason Comments Chest Pain Reason Comments ER F/U [facility] ER 05/27/24 dx: c hest pain, pleurisy Reason Comments Established Patient Labs, OV, Tx tomorro w Reason Comments Established Patient follow up on MRI res ults abn lft Reason Comments Received Outside Medical Records Exam Fi nding of 06/20/2024 from [facility]. Specialty Diagnoses / Procedures Referred By Contmaverick t Referred To Contact Diagnoses Non-small cell cancer of right lung (HCC) Procedures CISPLATIN 10 MG INJECTION PALONOSETRON HCL INJECTION, PEMETREXED, NOT OTHERWISE SPECIFIED, 10 MG INJ PEMBROLIZUMAB FOSAPREPITANT INJECTION Alf Castle, DO [address] [place] [address] Phone: tel: fax: Hematology/Oncology [address] [place] [address] Phone: tel: fax: Reason Onset Date Comments Appointment 07/06/2024 AUGUST 05 VV Reason Onset Date Comments Refill Request 07/30/2024 Reason Comments Lung Cancer Cough Reason Comments Liver Disease Reason Comments Follow Up 4 month follow up Reason Comments Follow Up Reason Comments Research F/U IRB# [id number], Lupus R egistry, ID: [id number], F/U 3 Specialty Diagnoses / Procedures Referred By Contac t Referred To Contact [facility] Diagnoses Edema, unspecified type Procedures US DVT LOWER BILATERAL DUP-SCAN XTR VEINS COMPLETE BILATERAL STUDY Tamy Hurley MD [address] [address] Phone: tel: fax: [place] [address] Referral ID Status Reason Start Date Expiration Date V isits Requested Visits Authorized [id number] Closed Auto-Generate d Referral 08/14/2024 09/13/2025 1 1 Specialty Diagnoses / Procedures Referred By Reynaldo t Referred To Contact CT IMAGING Diagnoses Non-small cell cancer of right lung (HCC) Procedures CT ABD/PEL WO IVCON CT ABD & PELVIS W/O CONTRAST Alf Castle DO [address] [place] [address] Phone: tel: fax: [place] [phone] Referral ID Status Reason Start Date Expiration Date V isits Requested Visits Authorized [id number] Closed Auto-Generate d Referral 09/10/2024 02/04/2025 2 2 Care Teams (unrecognized sec tion and content) Nail Technician Teacher Relationship Specialty Start Date End Date Camilo Jonas MD [facility] [place] [address] PCP - General Family Practice 06/15/16 Nail Technician Teacher Relationship Specialty Start Date End Date Camilo Jonas MD [facility] [place] [address] PCP - General Family Practice 06/15/16 Nail Technician Teacher Relationship Specialty Start Date End Date Camilo Jonas MD [facility] [place] [address] PCP - General Family Practice 06/15/16 Nail Technician Teacher Relationship Specialty Start Date End Date Camilo Jonas MD [facility] [place] [address] PCP - General Family Practice 06/15/16 Nail Technician Teacher Relationship Specialty Start Date End Date Camilo Jonas MD [address] [place] [address] PCP - General Family Medicine 06/15/16 Nail Technician Teacher Relationship Specialty Start Date End Date Camilo Jonas MD [facility] [place] [address] PCP - General Family Medicine 06/15/16 Nail Technician Teacher Relationship Specialty Start Date End Date Camilo Jonas MD [address] [facility] [place] [address] PCP - General Family Medicine 06/15/16 Nail Technician Teacher Relationship Specialty Start Date End Date Camilo Jonas MD [address] [facility] [place] [address] PCP - General Family Medicine 06/15/16 Nail Technician Teacher Relationship Specialty Start Date End Date Camilo Jonas MD [address] [facility] [place] [address] PCP - General Family Medicine 06/15/16 Nail Technician Teacher Relationship Specialty Start Date End Date Camilo Jonas MD [address] [facility] [place] [address] PCP - General Family Medicine 06/15/16 Nail Technician Teacher Relationship Specialty Start Date End Date Camilo Jonas MD [address] [facility] [place] [address] PCP - General Family Medicine 06/15/16 Nail Technician Teacher Relationship Specialty Start Date End Date Camilo Jonas MD [address] [facility] [place] [address] PCP - General Family Medicine 06/15/16 Nail Technician Teacher Relationship Specialty Start Date End Date Camilo Jonas MD [address] [facility] [place] [address] PCP - General Family Medicine 06/15/16 Nail Technician Teacher Relationship Specialty Start Date End Date Camilo Jonas MD [address] [facility] [place] [address] PCP - General Family Medicine 06/15/16 Nail Technician Teacher Relationship Specialty Start Date End Date Camilo Jonas MD [address] [facility] [place] [address] PCP - General Family Medicine 06/15/16 Nail Technician Teacher Relationship Specialty Start Date End Date Camilo Jonas MD [address] [facility] [place] [address] PCP - General Family Medicine 06/15/16 Nail Technician Teacher Relationship Specialty Start Date End Date Camilo Jonas MD [address] [facility] [place] [address] PCP - General Family Medicine 06/15/16 Nail Technician Teacher Relationship Specialty Start Date End Date Camilo Jonas MD [address] [facility] [place] [address] PCP - General Family Medicine 06/15/16 Nail Technician Teacher Relationship Specialty Start Date End Date Camilo Jonas MD [address] [facility] [place] [address] PCP - General Family Medicine 06/15/16 Nail Technician Teacher Relationship Specialty Start Date End Date Camilo Jonas MD [address] [facility] [place] [address] PCP - General Family Medicine 06/15/16 Nail Technician Teacher Relationship Specialty Start Date End Date Camilo Jonas MD [address] [facility] [place] [address] PCP - General Family Medicine 06/15/16 Nail Technician Teacher Relationship Specialty Start Date End Date Camilo Jonas MD [address] [facility] [place] [address] PCP - General Family Medicine 06/15/16 Nail Technician Teacher Relationship Specialty Start Date End Date Camilo Jonas MD [address] [facility] [place] [address] PCP - General Family Medicine 06/15/16 Nail Technician Teacher Relationship Specialty Start Date End Date Camilo Jonas MD [address] [place] [address] PCP - General Family Medicine 06/15/16 Nail Technician Teacher Relationship Specialty Start Date End Date Camilo Jonas MD [address] [place] [address] PCP - General Family Medicine 06/15/16 Nail Technician Teacher Relationship Specialty Start Date End Date Camilo Jonas MD [address] [place] [address] PCP - General Family Medicine 06/15/16 Nail Technician Teacher Relationship Specialty Start Date End Date Camilo Jonas MD [address] [place] [address] PCP - General Family Medicine 06/15/16 Nail Technician Teacher Relationship Specialty Start Date End Date Camilo Jonas MD [address] [place] [address] PCP - General Family Medicine 06/15/16 Nail Technician Teacher Relationship Specialty Start Date End Date Camilo Jonas MD [address] [place] [address] PCP - General Family Medicine 06/15/16 Nail Technician Teacher Relationship Specialty Start Date End Date Camilo Jonas MD [address] [place] [address] PCP - General Family Medicine 06/15/16 Nail Technician Teacher Relationship Specialty Start Date End Date Camilo Jonas MD [address] [place] [address] PCP - General Family Medicine 06/15/16 Nail Technician Teacher Relationship Specialty Start Date End Date Camilo Joans MD [address] [facility] [place] [address] PCP - General Family Medicine 06/15/16 Nail Technician Teacher Relationship Specialty Start Date End Date Camilo Jonas MD [address] [facility] [place] [address] PCP - General Family Medicine 06/15/16 Nail Technician Teacher Relationship Specialty Start Date End Date Camilo Jonas MD [address] [facility] [place] [address] PCP - General Family Medicine 06/15/16 Nail Technician Teacher Relationship Specialty Start Date End Date Camilo Jonas MD [address] [facility] [place] [address] PCP - General Family Medicine 06/15/16 Nail Technician Teacher Relationship Specialty Start Date End Date Camilo Jonas MD [address] [facility] [place] [address] PCP - General Family Medicine 06/15/16 Nail Technician Teacher Relationship Specialty Start Date End Date Camilo Jonas MD [address] [facility] [place] [address] PCP - General Family Medicine 06/15/16 Nail Technician Teacher Relationship Specialty Start Date End Date Camilo Jonas MD [address] [facility] [place] [address] PCP - General Family Medicine 06/15/16 Nail Technician Teacher Relationship Specialty Start Date End Date Camilo Jonas MD [address] [facility] [place] [address] PCP - General Family Medicine 06/15/16 Nail Technician Teacher Relationship Specialty Start Date End Date Camilo Jonas MD [address] [facility], [place] [address] PCP - General Family Medicine 06/15/16 Nail Technician Teacher Relationship Specialty Start Date End Date Camilo Jonas MD [address] [facility], [place] [address] PCP - General Family Medicine 06/15/16 Nail Technician Teacher Relationship Specialty Start Date End Date Camilo Jonas MD [address] [facility] [place] [address] PCP - General Family Medicine 06/15/16 Nail Technician Teacher Relationship Specialty Start Date End Date Camilo Jonas MD [address] [place] [address] PCP - General Family Medicine 06/15/16 Nail Technician Teacher Relationship Specialty Start Date End Date Camilo Jonas MD [address] [facility] [place] [address] PCP - General Family Medicine 06/15/16 Nail Technician Teacher Relationship Specialty Start Date End Date Camilo Jonas MD [address] [facility] [place] [address] PCP - General Family Medicine 06/15/16 Nail Technician Teacher Relationship Specialty Start Date End Date Camilo Jonas MD [address] [facility] [place] [address] PCP - General Family Medicine 06/15/16 Ny Ross MD [address] [place] [address] Referring Pulmonary and Critical Care Medicine 09/25/23 Nail Technician Teacher Relationship Specialty Start Date End Date Camilo Jonas MD [address] [place] [address] PCP - General Family Medicine 06/15/16 Ny Ross MD [address] [place] [address] Referring Pulmonary and Critical Care Medicine 09/25/23 Nail Technician Teacher Relationship Specialty Start Date End Date Camilo Jonas MD [address] [place] [address] PCP - General Family Medicine 06/15/16 Ny Ross MD [address] [place] [address] Referring Pulmonary and Critical Care Medicine 09/25/23 Nail Technician Teacher Relationship Specialty Start Date End Date Camilo Jonas MD [address] [place] [address] PCP - General Family Medicine 06/15/16 Ny Ross MD [address] [place] [address] Referring Pulmonary and Critical Care Medicine 09/25/23 Nail Technician Teacher Relationship Specialty Start Date End Date Camilo Jonsa MD [address] [place] [address] PCP - General Family Medicine 06/15/16 Ny Ross MD [address] [place] [address] Referring Pulmonary and Critical Care Medicine 09/25/23 Nail Technician Teacher Relationship Specialty Start Date End Date Camilo Jonas MD [address] [place], [place] [address] PCP - General Family Medicine 06/15/16 Ny Ross MD [address] [place], [place] [address] Referring Pulmonary and Critical Care Medicine 09/25/23 Nail Technician Teacher Relationship Specialty Start Date End Date Camilo Jonas MD [address] [place], [place] 786161 PCP - General Family Medicine 06/15/16 Ny Ross MD [address] [facility] [place], [place] [address] Referring Pulmonary and Critical Care Medicine 09/25/23 Janett Feliciano MD, PhD [address] [place] [address] Thoracic Surgery 10/22/23 Nail Technician Teacher Relationship Specialty Start Date End Date Camilo Jonas MD [address] [place] [address] PCP - General Family Medicine 06/15/16 Ny Ross MD [address] [place], [place] [address] Referring Pulmonary and Critical Care Medicine 09/25/23 Janett Feliciano MD, PhD [address] [place] [address] Thoracic Surgery 10/22/23 Nail Technician Teacher Relationship Specialty Start Date End Date Camilo Jonas MD [address] [place], [place] 186131 PCP - General Family Medicine 06/15/16 Ny Ross MD [address] [place], [place] 510761 Referring Pulmonary and Critical Care Medicine 09/25/23 Janett Feliciano MD, PhD [address] [place] [address] Thoracic Surgery 10/22/23 Nail Technician Teacher Relationship Specialty Start Date End Date Camilo Jonas MD [address] [place] [address] PCP - General Family Medicine 06/15/16 Ny Ross MD [address] [place], [place] [address] Referring Pulmonary and Critical Care Medicine 09/25/23 Janett Feliciano MD, PhD [address] [place] [address] Thoracic Surgery 10/22/23 Nail Technician Teacher Relationship Specialty Start Date End Date Camilo Jonas MD [address] [place], [place] 739541 PCP - General Family Medicine 06/15/16 Ny Ross MD [address] [place], [place] [address] Referring Pulmonary and Critical Care Medicine 09/25/23 Janett Feliciano MD, PhD [address] [place] [address] Thoracic Surgery 10/22/23 Nail Technician Teacher Relationship Specialty Start Date End Date Camilo Jonas MD [address] [place], [place] 611321 PCP - General Family Medicine 06/15/16 Ny Ross MD [address] [place], [place] [address] Referring Pulmonary and Critical Care Medicine 09/25/23 Janett Feliciano MD, PhD [address] [place] [address] Thoracic Surgery 10/22/23 Nail Technician Teacher Relationship Specialty Start Date End Date Camilo Jonas MD [address] [place], [place] 939701 PCP - General Family Medicine 06/15/16 Ny Ross MD [address] [place], [place] 7[address] Referring Pulmonary and Critical Care Medicine 09/25/23 Janett Feliciano MD, PhD [address] [place] [address] Thoracic Surgery 10/22/23 Nail Technician Teacher Relationship Specialty Start Date End Date Camilo Jonas MD [address] [place], [place] 188401 PCP - General Family Medicine 06/15/16 Ny Ross MD [address] [place] [address] Referring Pulmonary and Critical Care Medicine 09/25/23 Janett Feliciano MD, PhD [address] [place] [address] Thoracic Surgery 10/22/23 Nail Technician Teacher Relationship Specialty Start Date End Date Camilo Jonas MD [address] [place] [address] PCP - General Family Medicine 06/15/16 Ny Ross MD [address] [facility] [place] [address] Referring Pulmonary and Critical Care Medicine 09/25/23 Janett Feliciano MD, PhD [address] [place] [address] Thoracic Surgery 10/22/23 Nail Technician Teacher Relationship Specialty Start Date End Date Camilo Jonas MD [address] [place] [address] PCP - General Family Medicine 06/15/16 Ny Ross MD [address] [place] [address] Referring Pulmonary and Critical Care Medicine 09/25/23 Janett Feliciano MD, PhD [address] [place] [address] Thoracic Surgery 10/22/23 Nail Technician Teacher Relationship Specialty Start Date End Date Camilo Jonas MD [address] [place], [place] 455501 PCP - General Family Medicine 06/15/16 Ny Ross MD [address] [facility] [place], [place] [address] Referring Pulmonary and Critical Care Medicine 09/25/23 Janett Feliciano MD, PhD [address] [place] [address] Thoracic Surgery 10/22/23 Nail Technician Teacher Relationship Specialty Start Date End Date Camilo Jonas MD [address] [place] [address] PCP - General Family Medicine 06/15/16 Ny Ross MD [address] [place], [place] 153161 Referring Pulmonary and Critical Care Medicine 09/25/23 Janett Feliciano MD, PhD [address] [place] [address] Thoracic Surgery 10/22/23 Boaz Pineda DO [address], [address] [place], [place] [address] Rheumatology 11/27/23 Nail Technician Teacher Relationship Specialty Start Date End Date Camilo Jonas MD [address] [place], [place] 943751 PCP - General Family Medicine 06/15/16 Ny Ross MD [address] [place], [place] 466581 Referring Pulmonary and Critical Care Medicine 09/25/23 Janett Feliciano MD, PhD [address] [place] [address] Thoracic Surgery 10/22/23 Boaz Pineda DO [address], [address] [place] [address] Rheumatology 11/27/23 Nail Technician Teacher Relationship Specialty Start Date End Date Camilo Jonas MD [address] [place] [address] PCP - General Family Medicine 06/15/16 Ny Ross MD [address] [place], [place] [address] Referring Pulmonary and Critical Care Medicine 09/25/23 Janett Feliciano MD, PhD [address] [place] [address] Thoracic Surgery 10/22/23 Boaz Pineda DO [address], [address] [place] [address] Rheumatology 11/27/23 Nail Technician Teacher Relationship Specialty Start Date End Date Camilo Jonas MD [address] [place], [place] 258981 PCP - General Family Medicine 06/15/16 Ny Ross MD [address] [place], [place] [address] Referring Pulmonary and Critical Care Medicine 09/25/23 Janett Feliciano MD, PhD [address] [place] [address] Thoracic Surgery 10/22/23 Boaz Pineda DO [address], [address] [place], [place] [address] Rheumatology 11/27/23 Nail Technician Teacher Relationship Specialty Start Date End Date Camilo Jonas MD [address] [place] [address] PCP - General Family Medicine 06/15/16 Ny Ross MD [address] [place], [place] [address] Referring Pulmonary and Critical Care Medicine 09/25/23 Janett Feliciano MD, PhD [address] [place] [address] Thoracic Surgery 10/22/23 Boaz Pineda DO [address], [address] [place] [address] Rheumatology 11/27/23 Nail Technician Teacher Relationship Specialty Start Date End Date Camilo Jonas MD [address] [place], [place] 457151 PCP - General Family Medicine 06/15/16 Ny Ross MD [address] [facility] [place], [place] [address] Referring Pulmonary and Critical Care Medicine 09/25/23 Janett Feliciano MD, PhD [address] [place] [address] Thoracic Surgery 10/22/23 Boaz Pineda DO [address], [address] [place] [address] Rheumatology 11/27/23 Alf Castle DO [address] [facility] [place] [address] Hematology/Oncology 12/03/23 Ann Randolph RN Specialty Scaler Oncology 12/03/23 Nail Technician Teacher Relationship Specialty Start Date End Date Camilo Jonas MD [address] [place], [place] 209581 PCP - General Family Medicine 06/15/16 Ny Ross MD [address] [facility] [place] [address] Referring Pulmonary and Critical Care Medicine 09/25/23 Janett Feliciano MD, PhD [address] [place] [address] Thoracic Surgery 10/22/23 Boaz Pineda DO [address], [address] [place] [address] Rheumatology 11/27/23 Afl Castle DO [address] [place], [place] [address]251 Hematology/Oncology 12/03/23 Ann Randolph RN Specialty Scaler Oncology 12/03/23 Nail Technician Teacher Relationship Specialty Start Date End Date Camilo Jonas MD [address] [facility] [place] [address] PCP - General Family Medicine 06/15/16 Ny Ross MD [address] [place], [place] [address]90[address] Referring Pulmonary and Critical Care Medicine 09/25/23 Janett Feliciano MD, PhD [address] [place] [address] Thoracic Surgery 10/22/23 Boaz Pineda DO [address], [address] [place] [address] Rheumatology 11/27/23 Alf Castle DO [address] [place] [address] Hematology/Oncology 12/03/23 Ann Randolph RN Specialty Scaler Oncology 12/03/23 Nail Technician Teacher Relationship Specialty Start Date End Date Camilo Jonas MD [address] [place] [place] [address] PCP - General Family Medicine 06/15/16 Ny Ross MD [address] [place] [address] Referring Pulmonary and Critical Care Medicine 09/25/23 Janett Feliciano MD, PhD [address] [place] [address] Thoracic Surgery 10/22/23 Boaz Pineda DO [address], [address] [place] [address] Rheumatology 11/27/23 Alf Castle DO [address] [place] [address] Hematology/Oncology 12/03/23 Ann Randolph RN Specialty Scaler Oncology 12/03/23 Nail Technician Teacher Relationship Specialty Start Date End Date Camilo Jonas MD [address] [place] [address] PCP - General Family Medicine 06/15/16 Ny Ross MD [address] [place] [address] Referring Pulmonary and Critical Care Medicine 09/25/23 Janett Feliciano MD, PhD [address] [place] [address] Thoracic Surgery 10/22/23 Boaz Pineda DO [address], [address] [place] [address] Rheumatology 11/27/23 Alf Castle DO [address] [place], [place] [address]86[address] Hematology/Oncology 12/03/23 Ann Randolph RN Specialty Scaler Oncology 12/03/23 Nail Technician Teacher Relationship Specialty Start Date End Date Camilo Jonas MD [address] [facility] [address] PCP - General Family Medicine 06/15/16 Ny Ross MD [address] [place], [place] [address] Referring Pulmonary and Critical Care Medicine 09/25/23 Janett Feliciano MD, PhD [address] [place] [address] Thoracic Surgery 10/22/23 Boaz Pineda DO [address], [address] [place] [address] Rheumatology 11/27/23 Alf Castle DO [address] [place], [place] [address] Hematology/Oncology 12/03/23 Ann Randolph RN Specialty Scaler Oncology 12/03/23 Nail Technician Teacher Relationship Specialty Start Date End Date Camilo Jonas MD [address] [place], [place] [address] PCP - General Family Medicine 06/15/16 Ny Ross MD [address] [place] [address] Referring Pulmonary and Critical Care Medicine 09/25/23 Janett Feliciano MD, PhD [address] [place], [place] [address]13[address] Thoracic Surgery 10/22/23 Boaz Pineda DO [address] [place], [place] [address] Rheumatology 11/27/23 Alf Castle DO [address] [place], [place] [address] Hematology/Oncology 12/03/23 Ann Randolph RN Specialty Scaler Oncology 12/03/23 Nail Technician Teacher Relationship Specialty Start Date End Date Camilo Jonas MD [address] [place], [place] [address]2358[address] PCP - General Family Medicine 06/15/16 Ny Ross MD [address] [place], [place] [address] Referring Pulmonary and Critical Care Medicine 09/25/23 Janett Feliciano MD, PhD [address] [place] [address] Thoracic Surgery 10/22/23 Boaz Pineda DO [address] [place] [address] Rheumatology 11/27/23 Alf Castle DO [address] [place] [address] Hematology/Oncology 12/03/23 Ann Randolph RN Specialty Scaler Oncology 12/03/23 Nail Technician Teacher Relationship Specialty Start Date End Date Camilo Jonas MD [address] [place], [place] 938251 PCP - General Family Medicine 06/15/16 Ny Ross MD [address] [facility] [place], [place] 445551 Referring Pulmonary and Critical Care Medicine 09/25/23 Janett Feliciano MD, PhD [address] [place] [address] Thoracic Surgery 10/22/23 Boaz Pineda DO [address], [address] [place] [address] Rheumatology 11/27/23 Alf Castle DO [address] [place], [place] 398151 Hematology/Oncology 12/03/23 Ann Randolph RN Specialty Scaler Oncology 12/03/23 Nail Technician Teacher Relationship Specialty Start Date End Date Camilo Jonas MD [address] [place], [place] 544481 PCP - General Family Medicine 06/15/16 Ny Ross MD [address] [facility] [place], [place] [id number] Referring Pulmonary and Critical Care Medicine 09/25/23 Janett Feliciano MD, PhD [address] [place] [address] Thoracic Surgery 10/22/23 Boaz Pineda DO [address], [address] [place] [address] Rheumatology 11/27/23 Alf Castle DO [address] [place], [place] [id number] Hematology/Oncology 12/03/23 Ann Randolph RN Specialty Scaler Oncology 12/03/23 Nail Technician Teacher Relationship Specialty Start Date End Date Camilo Jonas MD [address] [place], [place] [id number] PCP - General Family Medicine 06/15/16 Ny Ross MD [address] [place] 165151 Referring Pulmonary and Critical Care Medicine 09/25/23 Janett Feliciano MD, PhD [address] [place] [address] Thoracic Surgery 10/22/23 Boaz Pineda DO [address], [address] [place] [address] Rheumatology 11/27/23 Alf Castle DO [address] [place], [place] 82058691 Hematology/Oncology 12/03/23 Ann Randolph RN Specialty Scaler Oncology 12/03/23 Nail Technician Teacher Relationship Specialty Start Date End Date Camilo Jonas MD [address] [place] [address] PCP - General Family Medicine 06/15/16 Ny Ross MD [address] [place] 555221 Referring Pulmonary and Critical Care Medicine 09/25/23 Janett Feliciano MD, PhD [address] [place], [place] 6049995 Thoracic Surgery 10/22/23 Boza Pineda DO [address], [address] [place] [address] Rheumatology 11/27/23 Alf Castle DO [address] [place] [address] Hematology/Oncology 12/03/23 Ann Randolph, ARTURO Specialty Scaler Oncology 12/03/23 Nail Technician Teacher Relationship Specialty Start Date End Date Camilo Jonas MD [address] [place], [place] [id number] PCP - General Family Medicine 06/15/16 Ny Ross MD [address] [place], [place] [id number] Referring Pulmonary and Critical Care Medicine 09/25/23 Janett Feliciano MD, PhD [address] [place] [address] Thoracic Surgery 10/22/23 Boaz Pineda DO [address] [place] [address] Rheumatology 11/27/23 Alf Castle DO [address] [place] [address] Hematology/Oncology 12/03/23 Ann Randolph RN Specialty Scaler Oncology 12/03/23 Nail Technician Teacher Relationship Specialty Start Date End Date Camilo Jonas MD [address] [place], [place] 766711 PCP - General Family Medicine 06/15/16 Ny Ross MD [address] [place], [place] 651221 Referring Pulmonary and Critical Care Medicine 09/25/23 Janett Feliciano MD, PhD [address] [place] [address] Thoracic Surgery 10/22/23 Boaz Pineda DO [address], [address] [place] [address] Rheumatology 11/27/23 Alf Castle DO [address] [place], [place] 985111 Hematology/Oncology 12/03/23 Ann Randolph RN Specialty Scaler Oncology 12/03/23 Nail Technician Teacher Relationship Specialty Start Date End Date Camilo Jonas MD [address] [place], [place] 246991 PCP - General Family Medicine 06/15/16 Ny Ross MD [address] [place], [place] 540621 Referring Pulmonary and Critical Care Medicine 09/25/23 Janett Feliciano MD, PhD [address] [place] [address] Thoracic Surgery 10/22/23 Boaz Pineda DO [address], [address] [place] [address] Rheumatology 11/27/23 Alf Castle DO [address] [place] [address] Hematology/Oncology 12/03/23 Ann Randolph RN Specialty Scaler Oncology 12/03/23 Nail Technician Teacher Relationship Specialty Start Date End Date Camilo Jonas MD [address] [place], [place] [id number] PCP - General Family Medicine 06/15/16 Ny Ross MD [address] [facility] [place] [address] Referring Pulmonary and Critical Care Medicine 09/25/23 Janett Feliciano MD, PhD [address] [place] [address] Thoracic Surgery 10/22/23 Boaz Pineda DO [address], [address] [place], [place] 3013895 Rheumatology 11/27/23 Alf Castle DO [address] [place], [place] 455491 Hematology/Oncology 12/03/23 Ann Randolph RN Specialty Scaler Oncology 12/03/23 Nail Technician Teacher Relationship Specialty Start Date End Date Camilo Jonas MD [address] [place], [place] 542491 PCP - General Family Medicine 06/15/16 Ny Ross MD [address] [facility] [place] [place] 128141 Referring Pulmonary and Critical Care Medicine 09/25/23 Janett Feliciano MD, PhD [address] [place], [place] 7357495 Thoracic Surgery 10/22/23 Boaz Pineda DO [address], [address] [place], [place] 3172795 Rheumatology 11/27/23 Alf Castle DO [address] [place], [place] 684571 Hematology/Oncology 12/03/23 Ann Randolph RN Specialty Scaler Oncology 12/03/23 Jennifer Renae APRN.DIRECTOR OF PURCHASING [address] [place], [place] 431781 [facility] 01/14/24 Sidra Hurley APRN.DIRECTOR OF PURCHASING [address] [place], [place] 929331 Radar Systems Engineer Family Medicine 01/14/24 Nail Technician Teacher Relationship Specialty Start Date End Date Camilo Jonas MD [address] [place], [place] 687511 PCP - General Family Medicine 06/15/16 Ny Ross MD [address] [place], [place] 340401 Referring Pulmonary and Critical Care Medicine 09/25/23 Janett Feliciano MD, PhD [address] [place] [address] Thoracic Surgery 10/22/23 Boaz Pineda DO [address], [address] [place] [address] Rheumatology 11/27/23 Alf Castle DO [address] [place], [place] 62062691 Hematology/Oncology 12/03/23 Ann Randolph, ARTURO Specialty Scaler Oncology 12/03/23 Jennifer Renae APRN.DIRECTOR OF PURCHASING [address] [place], [place] 465021 Radar Systems Engineer Family Medicine 01/14/24 Sidra Hurley APRN.DIRECTOR OF PURCHASING [address] [place], [place] [id number] Radar Systems Engineer [facility] 01/14/24 Nail Technician Teacher Relationship Specialty Start Date End Date Camilo Jonas MD [address] [place], [place] 77718691 PCP - General Family Medicine 06/15/16 Ny Ross MD [address] [place], [place] 238651 Referring Pulmonary and Critical Care Medicine 09/25/23 Janett Feliciano MD, PhD [address] [place] [address] Thoracic Surgery 10/22/23 Boaz Pineda DO [address], [address] [place] [address] Rheumatology 11/27/23 Alf Castle DO [address] [place], [place] 469621 Hematology/Oncology 12/03/23 Ann Randolph RN Specialty Scaler Oncology 12/03/23 Jennifer Renae APRN.DIRECTOR OF PURCHASING [address] [place], [place] 308991 Radar Systems Engineer [facility] 01/14/24 Sidra Hurley APRN.DIRECTOR OF PURCHASING [address] [place] [address] Radar Systems Engineer [facility] 01/14/24 Nail Technician Teacher Relationship Specialty Start Date End Date Camilo Jonas MD [address] [place], [place] 478501 PCP - General Family Medicine 06/15/16 Ny Ross MD [address] [place] [address] Referring Pulmonary and Critical Care Medicine 09/25/23 Janett Feliciano MD, PhD [address] [place] [address] Thoracic Surgery 10/22/23 Boaz Pineda DO [address], [address] [place] [address] Rheumatology 11/27/23 Alf Castle DO [address] [place], [place] 94775691 Hematology/Oncology 12/03/23 Ann Randolph RN Specialty Scaler Oncology 12/03/23 Jennifre Renae APRN.DIRECTOR OF PURCHASING [address] [place], [place] 761141 Radar Systems Engineer [facility] 01/14/24 Sidra Hurley APRN.DIRECTOR OF PURCHASING [address] [place], [place] 973041 Radar Systems Engineer [facility] 01/14/24 Nail Technician Teacher Relationship Specialty Start Date End Date Camilo Jonas MD [address] [place], [place] 576551 PCP - General Family Medicine 06/15/16 Ny Ross MD [address] [place], [place] 033951 Referring Pulmonary and Critical Care Medicine 09/25/23 Janett Feliciano MD, PhD [address] [place] [address] Thoracic Surgery 10/22/23 Boaz Pineda DO [address], [address] [place] [address] Rheumatology 11/27/23 Alf Castle DO [address] [place], [place] 633741 Hematology/Oncology 12/03/23 Ann Randolph RN Specialty Scaler Oncology 12/03/23 Jennifer Renae APRN.DIRECTOR OF PURCHASING [address] [place], [place] 97822691 Radar Systems Engineer [facility] 01/14/24 Sidra Hurley, RAILROAD MAINTENANCE CLERK.DIRECTOR OF PURCHASING [address] [place], [place] 918061 [facility] 01/14/24 Nail Technician Teacher Relationship Specialty Start Date End Date Camilo Jonas MD [address] [place], [place] [id number] PCP - General Family Medicine 06/15/16 Ny Ross MD [address] [place], [place] 22735691 Referring Pulmonary and Critical Care Medicine 09/25/23 Janett Feliciano MD, PhD [address] [place] [address] Thoracic Surgery 10/22/23 Boaz Pineda DO [address], [address] [place] [address] Rheumatology 11/27/23 Alf Castle DO [address] [place], [place] 767331 Hematology/Oncology 12/03/23 Ann Randolph RN Specialty Scaler Oncology 12/03/23 Jennifer Renae APRN.DIRECTOR OF PURCHASING [address] [place], [place] 027411 [facility] 01/14/24 Sidra Hurley APRN.DIRECTOR OF PURCHASING [address] [place], [place] 160601 [facility] 01/14/24 Nail Technician Teacher Relationship Specialty Start Date End Date Camilo Jonas MD [address] [place], [place] [id number] PCP - General Family Medicine 06/15/16 Ny Ross MD [address] [place], [place] 705321 Referring Pulmonary and Critical Care Medicine 09/25/23 Janett Feliciano MD, PhD [address] [place] [address] Thoracic Surgery 10/22/23 Boaz Pineda DO [address], [address] [place] [address] Rheumatology 11/27/23 Alf Castle DO [address] [place] [address] Hematology/Oncology 12/03/23 Ann Randolph RN Specialty Scaler Oncology 12/03/23 Jennifer Renae APRN.DIRECTOR OF PURCHASING [address] [place], [place] 490421 [facility] 01/14/24 Sidra Hurley APRN.DIRECTOR OF PURCHASING [address] [place], [place] 277001 [facility] 01/14/24 Nail Technician Teacher Relationship Specialty Start Date End Date Camilo Jonas MD [address] [place], [place] 31212691 PCP - General Family Medicine 06/15/16 Ny Ross MD [address] [place], [place] 03546691 Referring Pulmonary and Critical Care Medicine 09/25/23 Janett Feliciano MD, PhD [address] [place] [address] Thoracic Surgery 10/22/23 Boaz Pineda DO [address], [address] [place] [address] Rheumatology 11/27/23 Alf Castle DO [address] [facility] [place], [place] 35464[address] Hematology/Oncology 12/03/23 Ann Randolph RN Specialty Scaler Oncology 12/03/23 Jennifer Renae APRN.DIRECTOR OF PURCHASING [address] [place], [place] [phone] [facility] 01/14/24 Sidra Hurley APRN.DIRECTOR OF PURCHASING [address] [place], [place] 047511 Radar Systems Engineer [facility] 01/14/24 Nail Technician Teacher Relationship Specialty Start Date End Date Camilo Jonas MD [address] [place], [place] 278721 PCP - General Family Medicine 06/15/16 Ny Ross MD [address] [place], [place] 72579691 Referring Pulmonary and Critical Care Medicine 09/25/23 Janett Feliciano MD, PhD [address] [place] [address] Thoracic Surgery 10/22/23 Boaz Pineda DO [address], [address] [place], [place] 4067495 Rheumatology 11/27/23 Alf Castle DO [address] [place], [place] 984991 Hematology/Oncology 12/03/23 Ann Randolph, RN Specialty Scaler Oncology 12/03/23 Jennifer Renae, CARLO.DIRECTOR OF PURCHASING [address] [place], [place] 00[address]91 Radar Systems Engineer [facility] 01/14/24 Sidra Hurley RAILROAD MAINTENANCE CLERK.DIRECTOR OF PURCHASING [address] [place], [place] 888631 [facility] 01/14/24 Nail Technician Teacher Relationship Specialty Start Date End Date Camilo Jonas MD [address] [place], [place] 435911 PCP - General Family Medicine 06/15/16 Ny Ross MD [address] [place], [place] 094511 Referring Pulmonary and Critical Care Medicine 09/25/23 Janett Feliciano MD, PhD [address] [place] [address] Thoracic Surgery 10/22/23 Boaz Pineda DO [address], [address] [place], [place] 7509395 Rheumatology 11/27/23 Alf Castle DO [address] [place], [place] 72584691 Hematology/Oncology 12/03/23 Ann Randolph RN Specialty Scaler Oncology 12/03/23 Jennifer Renae APRN.DIRECTOR OF PURCHASING [address] [place], [place] 019601 Radar Systems Engineer Family Medicine 01/14/24 Sidra Hurley RAILROAD MAINTENANCE CLERK.DIRECTOR OF PURCHASING [address] [place], [place] 648711 Radar Systems Engineer Family [facility] 01/14/24 Nail Technician Teacher Relationship Specialty Start Date End Date Camilo Jonas MD [address] [place], [place] 626021 PCP - General Family Medicine 06/15/16 Ny Ross MD [address] [place], [place] 565491 Referring Pulmonary and Critical Care Medicine 09/25/23 Janett Feliciano MD, PhD [address] [place] [address] Thoracic Surgery 10/22/23 Boaz Pineda DO [address], [address] [place] [address] Rheumatology 11/27/23 Alf Castle DO [address] [place], [place] 731901 Hematology/Oncology 12/03/23 Ann Randolph RN Specialty Scaler Oncology 12/03/23 Jennifer Renae, CARLO.DIRECTOR OF PURCHASING [address] [place], [place] 310031 Radar Systems Engineer [facility] 01/14/24 Sidra Hurley, RAILROAD MAINTENANCE CLERK.DIRECTOR OF PURCHASING [address] [place] [address] Radar Systems Engineer Family [facility] 01/14/24 Nail Technician Teacher Relationship Specialty Start Date End Date Camilo Jonas MD [address] [place], [place] 922861 PCP - General Family Medicine 06/15/16 Ny Ross MD [address] [place] [address] Referring Pulmonary and Critical Care Medicine 09/25/23 Janett Feliciano MD, PhD [address] [place] [address] Thoracic Surgery 10/22/23 Boaz Pineda DO [address], [address] [place] [address] Rheumatology 11/27/23 Alf Castle DO [address] [place], [place] 04109[address] Hematology/Oncology 12/03/23 Ann Randolph RN Specialty Scaler Oncology 12/03/23 Jennifer Renae APRN.DIRECTOR OF PURCHASING [address] [place], [place] 356081 Radar Systems Engineer Family Medicine 01/14/24 Sidra Hurley, RAILROAD MAINTENANCE CLERK.DIRECTOR OF PURCHASING [address] [place], [place] 656071 Radar Systems Engineer [facility] 01/14/24 Nail Technician Teacher Relationship Specialty Start Date End Date Camilo Jonas MD [address] [place], [place] 989771 PCP - General Family Medicine 06/15/16 Ny Ross MD [address] [place], [place] 695721 Referring Pulmonary and Critical Care Medicine 09/25/23 Janett Feliciano MD, PhD [address] [place] [address] Thoracic Surgery 10/22/23 Boaz Pineda DO [address], [address] [place] [address] Rheumatology 11/27/23 Alf Castle DO [address] [place] [address] Hematology/Oncology 12/03/23 Ann Randolph RN Specialty Scaler Oncology 12/03/23 Jennifer Renae, CARLO.DIRECTOR OF PURCHASING [address] [place], [place] [id number] [facility] 01/14/24 Sidra Hurley, RAILROAD MAINTENANCE CLERK.DIRECTOR OF PURCHASING [address] [place], [place] 888651 [facility] 01/14/24 Nail Technician Teacher Relationship Specialty Start Date End Date Camilo Jonas MD [address] [place], [place] 938651 PCP - General Family Medicine 06/15/16 Ny Ross MD [address] [place], [place] 204531 Referring Pulmonary and Critical Care Medicine 09/25/23 Janett Feliciano MD, PhD [address] [place] [address] Thoracic Surgery 10/22/23 Boaz Pineda DO [address], [address] [place] [address] Rheumatology 11/27/23 Alf Castle DO [address] [place], [place] 560751 Hematology/Oncology 12/03/23 Ann Randolph RN Specialty Scaler Oncology 12/03/23 Jennifer Renae APRN.DIRECTOR OF PURCHASING [address] [facility] [place] [address]351 Radar Systems Engineer [facility] 01/14/24 Sidra Hurley APRN.DIRECTOR OF PURCHASING [address] [place], [place] 911391 [facility] 01/14/24 Nail Technician Teacher Relationship Specialty Start Date End Date Camilo Jonas MD [address] [place], [place] 734991 PCP - General Family Medicine 06/15/16 Ny Ross MD [address] [place], [place] 880311 Referring Pulmonary and Critical Care Medicine 09/25/23 Janett Feliciano MD, PhD [address] [place] [address] Thoracic Surgery 10/22/23 Boaz Pineda DO [address], [address] [place] [address] Rheumatology 11/27/23 Alf Castle DO [address] [place] [address] Hematology/Oncology 12/03/23 Ann Randolph RN Specialty Scaler Oncology 12/03/23 Jennifer Renae APRN.DIRECTOR OF PURCHASING [address] [place], [place] 633481 [facility] 01/14/24 Sidra Hurley APRN.DIRECTOR OF PURCHASING [address] [place], [place] 909311 [facility] 01/14/24 Nail Technician Teacher Relationship Specialty Start Date End Date Camilo Jonas MD [address] [place], [place] 70705691 PCP - General Family Medicine 06/15/16 Ny Ross MD [address] [place], [place] 098971 Referring Pulmonary and Critical Care Medicine 09/25/23 Janett Feliciano MD, PhD [address] [place] [address] Thoracic Surgery 10/22/23 Boaz Pineda DO [address], [address] [place] [address] Rheumatology 11/27/23 Alf Castle DO [address] [place], [place] 169461 Hematology/Oncology 12/03/23 Ann Randolph RN Specialty Scaler Oncology 12/03/23 Jennifer Renae, CARLO.DIRECTOR OF PURCHASING [address] [place], [place] 793961 [facility] 01/14/24 Sidra Hurley APRN.DIRECTOR OF PURCHASING [address] [place], [place] 731641 Radar Systems Engineer Family [facility] 01/14/24 Nail Technician Teacher Relationship Specialty Start Date End Date Camilo Jonas MD [address] [place], [place] 519811 PCP - General Family Medicine 06/15/16 Ny Ross MD [address] [place], [place] 960171 Referring Pulmonary and Critical Care Medicine 09/25/23 Janett Feliciano MD, PhD [address] [place] [address] Thoracic Surgery 10/22/23 Boaz Pineda DO [address], [address] [place], [place] 3636695 Rheumatology 11/27/23 Alf Castle DO [address] [place], [place] 646331 Hematology/Oncology 12/03/23 Ann Randolph, RN Specialty Scaler Oncology 12/03/23 Jennifer Renae, CARLO.DIRECTOR OF PURCHASING [address] [place], [place] 57[address] Radar Systems Engineer [facility] 01/14/24 Sidra Hurley APRN.DIRECTOR OF PURCHASING [address] [place] [address] Radar Systems Engineer [facility] 01/14/24 Nail Technician Teacher Relationship Specialty Start Date End Date Camilo Jonas MD [address] [place], [place] 892011 PCP - General Family Medicine 06/15/16 Ny Ross MD [address] [place], [place] 553401 Referring Pulmonary and Critical Care Medicine 09/25/23 Janett Feliciano MD, PhD [address] [place] [address] Thoracic Surgery 10/22/23 Boaz Pineda DO [address], [address] [place] [address] Rheumatology 11/27/23 Alf Castle DO [address] [place], [place] 818451 Hematology/Oncology 12/03/23 Ann Randolph, ARTURO Specialty Scaler Oncology 12/03/23 Jennifer Renae APRN.DIRECTOR OF PURCHASING [address] [place] [address] Radar Systems Engineer Family [facility] 01/14/24 Sidra Hurley RAILROAD MAINTENANCE CLERK.DIRECTOR OF PURCHASING [address] [place], [place] 666481 Radar Systems Engineer [facility] 01/14/24 Nail Technician Teacher Relationship Specialty Start Date End Date Camilo Jonas MD [address] [place] [address] PCP - General Family Medicine 06/15/16 Ny Ross MD [address] [place], [place] 418111 Referring Pulmonary and Critical Care Medicine 09/25/23 Janett Feliciano MD, PhD [address] [place] [address] Thoracic Surgery 10/22/23 Boaz Pineda DO [address], [address] [place] [address] Rheumatology 11/27/23 Alf Castle DO [address] [place], [place] 743611 Hematology/Oncology 12/03/23 Ann Randolph RN Specialty Scaler Oncology 12/03/23 Jennifer Renae, RAILROAD MAINTENANCE CLERK.DIRECTOR OF PURCHASING [address] [place], [place] 499101 Radar Systems Engineer [facility] 01/14/24 Sidra Hurley, RAILROAD MAINTENANCE CLERK.DIRECTOR OF PURCHASING [address] [place] [address] Radar Systems Engineer Family [facility] 01/14/24 Nail Technician Teacher Relationship Specialty Start Date End Date Camilo Jonas MD [address] [place], [place] 952821 PCP - General Family Medicine 06/15/16 Ny Ross MD [address] [place] [address] Referring Pulmonary and Critical Care Medicine 09/25/23 Janett Feliciano MD, PhD [address] [place] [address] Thoracic Surgery 10/22/23 Boaz Pineda DO [address], [address] [place] [address] Rheumatology 11/27/23 Alf Castle DO [address] [place], [place] 90098691 Hematology/Oncology 12/03/23 Ann Randolph, ARTURO Specialty Scaler Oncology 12/03/23 Jennifer Renae APRN.DIRECTOR OF PURCHASING [address] [place], [place] 480851 Radar Systems Engineer [facility] 01/14/24 Sidra Hurley, RAILROAD MAINTENANCE CLERK.DIRECTOR OF PURCHASING [address] [place], [place] 216421 Radar Systems Engineer [facility] 01/14/24 Nail Technician Teacher Relationship Specialty Start Date End Date Camilo Jonas MD [address] [place], [place] 411041 PCP - General Family Medicine 06/15/16 Ny Ross MD [address] [place], [place] 549391 Referring Pulmonary and Critical Care Medicine 09/25/23 Janett Feliciano MD, PhD [address] [place] [address] Thoracic Surgery 10/22/23 Boaz Pineda DO [address], [address] [place] [address] Rheumatology 11/27/23 Alf Castle DO [address] [place], [place] 785951 Hematology/Oncology 12/03/23 Ann Randolph RN Specialty Scaler Oncology 12/03/23 Jennifer Renae, CARLO.DIRECTOR OF PURCHASING [address] [place], [place] 902271 Radar Systems Engineer [facility] 01/14/24 Sidra Hurley, RAILROAD MAINTENANCE CLERK.DIRECTOR OF PURCHASING [address] [place], [place] 979401 Radar Systems Engineer [facility] 01/14/24 Nail Technician Teacher Relationship Specialty Start Date End Date Camilo Jonas MD [address] [place], [place] 411261 PCP - General Family Medicine 06/15/16 Ny Ross MD [address] [place], [place] 320991 Referring Pulmonary and Critical Care Medicine 09/25/23 Janett Feliciano MD, PhD [address] [place] [address] Thoracic Surgery 10/22/23 Boaz Pineda DO [address], [address] [place] [address] Rheumatology 11/27/23 Alf Castle DO [address] [place] [address] Hematology/Oncology 12/03/23 Ann Randolph RN Specialty Scaler Oncology 12/03/23 Jennifer Renae APRN.DIRECTOR OF PURCHASING [address] [place], [place] 895091 Radar Systems Engineer [facility] 01/14/24 Sidra Hurley APRN.DIRECTOR OF PURCHASING [address] [place], [place] 518711 [facility] 01/14/24 Nail Technician Teacher Relationship Specialty Start Date End Date Camilo Jonas MD [address] [place], [place] [id number] PCP - General Family Medicine 06/15/16 Ny Ross MD [address] [place], [place] 57261691 Referring Pulmonary and Critical Care Medicine 09/25/23 Janett Feliciano MD, PhD [address] [place] [address] Thoracic Surgery 10/22/23 Boaz Pineda DO [address], [address] [place] [address] Rheumatology 11/27/23 Alf Castle DO [address] [place] [address] Hematology/Oncology 12/03/23 Ann Randolph RN Specialty Scaler Oncology 12/03/23 Jennifer Renae APRN.DIRECTOR OF PURCHASING [address] [place], [place] 882211 [facility] 01/14/24 Sidra Hurley APRN.DIRECTOR OF PURCHASING [address] [place], [place] 536381 [facility] 01/14/24 Nail Technician Teacher Relationship Specialty Start Date End Date Camilo Jonas MD [address] [place], [place] 108311 PCP - General Family Medicine 06/15/16 Ny Ross MD [address] [facility] [place], [place] 753321 Referring Pulmonary and Critical Care Medicine 09/25/23 Janett Feliciano MD, PhD [address] [place] [address] Thoracic Surgery 10/22/23 Boaz Pineda DO [address], [address] [place] [address] Rheumatology 11/27/23 Alf Castle DO [address] [place] [address] Hematology/Oncology 12/03/23 Ann Randolph RN Specialty Scaler Oncology 12/03/23 Jennifer Renae APRN.DIRECTOR OF PURCHASING [address] [place] [address] [facility] 01/14/24 Sidra Hurley APRN.DIRECTOR OF PURCHASING [address] [place], [place] 767071 Radar Systems Engineer [facility] 01/14/24 Nail Technician Teacher Relationship Specialty Start Date End Date Camilo Jonas MD [address] [place], [place] 978551 PCP - General Family Medicine 06/15/16 Ny Ross MD [address] [place], [place] 0[address]341 Referring Pulmonary and Critical Care Medicine 09/25/23 Janett Feliciano MD, PhD [address] [place] [address] Thoracic Surgery 10/22/23 Boaz Pineda DO [address], [address] [place], [place] 9756795 Rheumatology 11/27/23 Alf Castle DO [address] [place], [place] 85[address]91 Hematology/Oncology 12/03/23 Ann Randolph, RN Specialty Scaler Oncology 12/03/23 Jennifer Renae APRN.DIRECTOR OF PURCHASING [address] [place] [address] Radar Systems Engineer [facility] 01/14/24 Sidra Hurley APRN.DIRECTOR OF PURCHASING [address] [place] [address] Radar Systems Engineer [facility] 01/14/24 Nail Technician Teacher Relationship Specialty Start Date End Date Camilo Jonas MD [address] [place], [place] 218261 PCP - General Family Medicine 06/15/16 Ny Ross MD [address] [place] [address] Referring Pulmonary and Critical Care Medicine 09/25/23 Janett Feliciano MD, PhD [address] [place] [address] Thoracic Surgery 10/22/23 Boaz Pineda DO [address] [place] [address] Rheumatology 11/27/23 Alf Castle DO [address] [place], [place] 505181 Hematology/Oncology 12/03/23 Ann Randolph, ARTURO Specialty Scaler Oncology 12/03/23 Jennifer Renae, CARLO.DIRECTOR OF PURCHASING [address] [place], [place] 039591 Radar Systems Engineer [facility] 01/14/24 Sidra Hurley RAILROAD MAINTENANCE CLERK.DIRECTOR OF PURCHASING [address] [place], [place] 758361 Radar Systems Engineer [facility] 01/14/24 Nail Technician Teacher Relationship Specialty Start Date End Date Camilo Jonas MD [address] [place] [address] PCP - General Family Medicine 06/15/16 Ny Ross MD [address] [place] [place], [place] 16[address]01 Referring Pulmonary and Critical Care Medicine 09/25/23 Janett Feliciano MD, PhD [address] [place] [address] Thoracic Surgery 10/22/23 Boaz Pineda DO [address], [address] [place] [address] Rheumatology 11/27/23 Alf Castle DO [address] [place] [address] Hematology/Oncology 12/03/23 Ann Randolph, ARTURO Specialty Scaler Oncology 12/03/23 Jennifer Renae, RAILROAD MAINTENANCE CLERK.DIRECTOR OF PURCHASING [address] [place], [place] 223981 Radar Systems Engineer [facility] 01/14/24 Sidra Hurley, RAILROAD MAINTENANCE CLERK.DIRECTOR OF PURCHASING [address] [place] [address] Radar Systems Engineer [facility] 01/14/24 Nail Technician Teacher Relationship Specialty Start Date End Date Camilo Jonas MD [address] [place] [address] PCP - General Family Medicine 06/15/16 Ny Ross MD [address] [place] [address] Referring Pulmonary and Critical Care Medicine 09/25/23 Janett Feliciano MD, PhD [address] [place] [address] Thoracic Surgery 10/22/23 Boaz Pineda DO [address], [address] [place] [address] Rheumatology 11/27/23 Alf Castle DO [address] [place], [place] 501921 Hematology/Oncology 12/03/23 Ann Randolph, ARTURO Specialty Scaler Oncology 12/03/23 Jennifer Renae APRN.DIRECTOR OF PURCHASING [address] [place], [place] 805051 Radar Systems Engineer [facility] 01/14/24 Sidra Hurley, RAILROAD MAINTENANCE CLERK.DIRECTOR OF PURCHASING [address] [place], [place] 765121 Radar Systems Engineer [facility] 01/14/24 Nail Technician Teacher Relationship Specialty Start Date End Date Camilo Jonas MD [address] [place], [place] 922421 PCP - General Family Medicine 06/15/16 Ny Ross MD [address] [place] [address] Referring Pulmonary and Critical Care Medicine 09/25/23 Janett Feliciano MD, PhD [address] [place] [address] Thoracic Surgery 10/22/23 Boaz Pineda DO [address], [address] [place] [address] Rheumatology 11/27/23 Alf Castle DO [address] [place], [place] 071201 Hematology/Oncology 12/03/23 Ann Randolph RN Specialty Scaler Oncology 12/03/23 Jennifer Renae, CARLO.DIRECTOR OF PURCHASING [address] [place], [place] 168531 Radar Systems Engineer [facility] 01/14/24 Sidra Hurley, RAILROAD MAINTENANCE CLERK.DIRECTOR OF PURCHASING [address] [place], [place] 913601 Radar Systems Engineer [facility] 01/14/24 Nail Technician Teacher Relationship Specialty Start Date End Date Camilo Jonas MD [address] [place], [place] 797651 PCP - General Family Medicine 06/15/16 Ny Ross MD [address] [place], [place] 699821 Referring Pulmonary and Critical Care Medicine 09/25/23 Janett Feliciano MD, PhD [address] [place] [address] Thoracic Surgery 10/22/23 Boaz Pineda DO [address], [address] [place] [address] Rheumatology 11/27/23 Alf Castle DO [address] [place] [address] Hematology/Oncology 12/03/23 Ann Randolph RN Specialty Scaler Oncology 12/03/23 Jennifer Renae APRN.DIRECTOR OF PURCHASING [address] [place], [place] 284491 Radar Systems Engineer [facility] 01/14/24 Sidra Hurley APRN.DIRECTOR OF PURCHASING [address] [place], [place] 829191 [facility] 01/14/24 Nail Technician Teacher Relationship Specialty Start Date End Date Camilo Jonas MD [address] [place], [place] 914131 PCP - General Family Medicine 06/15/16 Ny Ross MD [address] [place] [address] Referring Pulmonary and Critical Care Medicine 09/25/23 Janett Feliciano MD, PhD [address] J4[address] [place] [address] Thoracic Surgery 10/22/23 Boaz Pineda DO [address], [address] [place] [address] Rheumatology 11/27/23 Alf Castle DO [address] [place] [address] Hematology/Oncology 12/03/23 Ann Randolph RN Specialty Scaler Oncology 12/03/23 Jennifer Renae APRN.DIRECTOR OF PURCHASING [address] [place] [address] [facility] 01/14/24 Sidra Hurley APRN.DIRECTOR OF PURCHASING [address] [place], [place] 838881 [facility] 01/14/24 Nail Technician Teacher Relationship Specialty Start Date End Date Camilo Jonas MD [address] [place], [place] 446561 PCP - General Family Medicine 06/15/16 Ny Ross MD [address] [place], [place] 278841 Referring Pulmonary and Critical Care Medicine 09/25/23 Janett Feliciano MD, PhD [address] [place] [address] Thoracic Surgery 10/22/23 Boaz Pineda DO [address], [address] [place] [address] Rheumatology 11/27/23 Alf Castle DO [address] [place] [address] Hematology/Oncology 12/03/23 Ann Randolph, ARTURO Specialty Scaler Oncology 12/03/23 Jennifer Renae APRN.DIRECTOR OF PURCHASING [address] [place] [address] [facility] 01/14/24 Sidra Hurley APRN.DIRECTOR OF PURCHASING [address] [place], [place] 626991 Radar Systems Engineer [facility] 01/14/24 Nail Technician Teacher Relationship Specialty Start Date End Date Camilo Jonas MD [address] [place], [place] 573811 PCP - General Family Medicine 06/15/16 Ny Ross MD [address] [place] [address] Referring Pulmonary and Critical Care Medicine 09/25/23 Janett Feliciano MD, PhD [address] J[address] [place] [address] Thoracic Surgery 10/22/23 Boaz Pineda DO [address], [address] [place], [place] 0854895 Rheumatology 11/27/23 Alf Castle DO [address] [place] [address] Hematology/Oncology 12/03/23 Ann Randolph, ARTURO Specialty Scaler Oncology 12/03/23 Jennifer Renae, CARLO.DIRECTOR OF PURCHASING [address] [place] [address] Radar Systems Engineer [facility] 01/14/24 Sidra Hurley APRN.DIRECTOR OF PURCHASING [address] [place] [address] Radar Systems Engineer [facility] 01/14/24 Nail Technician Teacher Relationship Specialty Start Date End Date Camilo Jonas MD [address] [place], [place] 897161 PCP - General Family Medicine 06/15/16 Ny Ross MD [address] [place] [address] Referring Pulmonary and Critical Care Medicine 09/25/23 Janett Feliciano MD, PhD [address] [place] [address] Thoracic Surgery 10/22/23 Boaz Pineda DO [address], [address] [place], [place] 1576195 Rheumatology 11/27/23 Alf Castle DO [address] [place] [place], [place] 601491 Hematology/Oncology 12/03/23 Ann Randolph, ARTURO Specialty Scaler Oncology 12/03/23 Jennifer Renae, CARLO.DIRECTOR OF PURCHASING [address] [place] [address] Radar Systems Engineer [facility] 01/14/24 Sidra Hurley, RAILROAD MAINTENANCE CLERK.DIRECTOR OF PURCHASING [address] [place] [address] Radar Systems Engineer [facility] 01/14/24 Nail Technician Teacher Relationship Specialty Start Date End Date Camilo Jonsa MD [address] [place] [address] PCP - General Family Medicine 06/15/16 Ny Ross MD [address] [place], [place] 0532[address] Referring Pulmonary and Critical Care Medicine 09/25/23 Janett Feliciano MD, PhD [address] [place] [address] Thoracic Surgery 10/22/23 Boaz Pineda DO [address], [address] [place], [place] 2893995 Rheumatology 11/27/23 Alf Castle DO [address] [place] [address] Hematology/Oncology 12/03/23 Ann Randolph, ARTURO Specialty Scaler Oncology 12/03/23 Jennifer Renae, RAILROAD MAINTENANCE CLERK.DIRECTOR OF PURCHASING [address] [place] [address] Radar Systems Engineer [facility] 01/14/24 Sidra Hurley, RAILROAD MAINTENANCE CLERK.DIRECTOR OF PURCHASING [address] [place] [address] Radar Systems Engineer [facility] 01/14/24 Nail Technician Teacher Relationship Specialty Start Date End Date Camilo Jonas MD [address] [place] [address] PCP - General Family Medicine 06/15/16 Ny Ross MD [address] [place] [address] Referring Pulmonary and Critical Care Medicine 09/25/23 Janett Feliciano MD, PhD [address] [place] [address] Thoracic Surgery 10/22/23 Boaz Pineda DO [address], [address] [place] [address] Rheumatology 11/27/23 lAf Castle DO [address] [place], [place] 950671 Hematology/Oncology 12/03/23 Ann Randolph RN Specialty Scaler Oncology 12/03/23 Jennifer Renae, CARLO.DIRECTOR OF PURCHASING [address] [place], [place] 968031 Radar Systems Engineer [facility] 01/14/24 Sidra Hurley, RAILROAD MAINTENANCE CLERK.DIRECTOR OF PURCHASING [address] [place], [place] 990771 Radar Systems Engineer [facility] 01/14/24 Nail Technician Teacher Relationship Specialty Start Date End Date Camilo Jonas MD [address] [place], [place] 650291 PCP - General Family Medicine 06/15/16 Ny Ross MD [address] [place] [address] Referring Pulmonary and Critical Care Medicine 09/25/23 Janett Fleiciano MD, PhD [address] [place] [address] Thoracic Surgery 10/22/23 Boaz Pineda DO [address], [address] [place] [address] Rheumatology 11/27/23 Alf Castle DO [address] [place], [place] 419721 Hematology/Oncology 12/03/23 Ann Randolph RN Specialty Scaler Oncology 12/03/23 Jennifer Renae, RAILROAD MAINTENANCE CLERK.DIRECTOR OF PURCHASING [address] [place], [place] 096791 Radar Systems Engineer [facility] 01/14/24 Sidra Hurley, RAILROAD MAINTENANCE CLERK.DIRECTOR OF PURCHASING [address] [place], [place] 000061 Radar Systems Engineer [facility] 01/14/24 Nail Technician Teacher Relationship Specialty Start Date End Date Camilo Jonas MD [address] [place], [place] 354041 PCP - General Family Medicine 06/15/16 Ny Ross MD [address] [place], [place] 083211 Referring Pulmonary and Critical Care Medicine 09/25/23 Janett Feliciano MD, PhD [address] [place] [address] Thoracic Surgery 10/22/23 Boaz Pnieda DO [address], [address] [place] [address] Rheumatology 11/27/23 Alf Castle DO [address] [place] [address] Hematology/Oncology 12/03/23 Ann Randolph RN Specialty Scaler Oncology 12/03/23 Jennifer Renae APRN.DIRECTOR OF PURCHASING [address] [place] [address] [facility] 01/14/24 Sidra Hurlye APRN.DIRECTOR OF PURCHASING [address] [place], [place] 889091 [facility] 01/14/24 Nail Technician Teacher Relationship Specialty Start Date End Date Camiol Jonas MD [address] [place] [address] PCP - General Family Medicine 06/15/16 Ny Ross MD [address] [place] [address] Referring Pulmonary and Critical Care Medicine 09/25/23 Janett Feliciano MD, PhD [address] [place] [address] Thoracic Surgery 10/22/23 Boaz Pineda DO [address], [address] [place] [address] Rheumatology 11/27/23 Alf Castle DO [address] [place] [address] Hematology/Oncology 12/03/23 Ann Randolph RN Specialty Scaler Oncology 12/03/23 Jennifer Renae APRN.DIRECTOR OF PURCHASING [address] [place], [place] 352261 [facility] 01/14/24 Sidra Hurley APRN.DIRECTOR OF PURCHASING [address] [place] [address] [facility] 01/14/24 Nail Technician Teacher Relationship Specialty Start Date End Date Camilo Jonas MD [address] [place], [place] 830291 PCP - General Family Medicine 06/15/16 Ny Ross MD [address] [place] [address] Referring Pulmonary and Critical Care Medicine 09/25/23 Janett Feliciano MD, PhD [address] [place] [address] Thoracic Surgery 10/22/23 Boaz Pineda DO [address], [address] [place] [address] Rheumatology 11/27/23 Alf Castle DO [address] [place] [address] Hematology/Oncology 12/03/23 Ann Randolph, ARTURO Specialty Scaler Oncology 12/03/23 Jennifer Renae APRN.DIRECTOR OF PURCHASING [address] [place] [address] [facility] 01/14/24 Sidra Hurley APRN.DIRECTOR OF PURCHASING [address] [place] [address] Radar Systems Engineer [facility] 01/14/24 Nail Technician Teacher Relationship Specialty Start Date End Date Camilo Jonas MD [address] [place], [place] 202241 PCP - General Family Medicine 06/15/16 Ny Ross MD [address] [place] [address] Referring Pulmonary and Critical Care Medicine 09/25/23 Janett Feliciano MD, PhD [address] [place] [address] Thoracic Surgery 10/22/23 Boaz Pineda DO [address], [address] [place], [place] 4582[address] Rheumatology 11/27/23 Alf Castle DO [address] [place] [address] Hematology/Oncology 12/03/23 Ann Randolph, ARTURO Specialty Scaler Oncology 12/03/23 Jennifer Renae, CARLO.DIRECTOR OF PURCHASING [address] [place] [address] Radar Systems Engineer [facility] 01/14/24 Sidra Hurley APRN.DIRECTOR OF PURCHASING [address] [place] [address] Radar Systems Engineer [facility] 01/14/24 Nail Technician Teacher Relationship Specialty Start Date End Date Camilo Jonas MD [address] [place], [place] 829941 PCP - General Family Medicine 06/15/16 Ny Ross MD [address] [facility] [place] [address] Referring Pulmonary and Critical Care Medicine 09/25/23 Janett Feliciano MD, PhD [address] [place] [address] Thoracic Surgery 10/22/23 Boaz Pineda DO [address] [place] [address] Rheumatology 11/27/23 Alf Castle DO [address] [place] [place], [place] 8668[address] Hematology/Oncology 12/03/23 Ann Randolph, ARTURO Specialty Scaler Oncology 12/03/23 Jennifer Renae, CARLO.DIRECTOR OF PURCHASING [address] [place], [place] 342831 Radar Systems Engineer [facility] 01/14/24 Sidra Hurley RAILROAD MAINTENANCE CLERK.DIRECTOR OF PURCHASING [address] [place], [place] 962561 Radar Systems Engineer [facility] 01/14/24 ProviderSoha MD Radar Systems Engineer 04/04/24 04/18/24 Nail Technician Teacher Relationship Specialty Start Date End Date Camilo Jonas MD [address] [place], [place] 767271 PCP - General Family Medicine 06/15/16 Ny Ross MD [address] [place], [place] 403731 Referring Pulmonary and Critical Care Medicine 09/25/23 Janett Feliciano MD, PhD [address] [place] [address] Thoracic Surgery 10/22/23 Boaz Pineda DO [address], [address] [place], [place] 9883[address] Rheumatology 11/27/23 Alf Castle DO [address] [place], [place] 8[address] Hematology/Oncology 12/03/23 Ann Randolph, ARTURO Specialty Scaler Oncology 12/03/23 Jennifer Renae, CARLO.DIRECTOR OF PURCHASING [address] [place], [place] 62301691 Radar Systems Engineer [facility] 01/14/24 Sidra Hurley, RAILROAD MAINTENANCE CLERK.DIRECTOR OF PURCHASING [address] [place] [address] Radar Systems Engineer [facility] 01/14/24 ProviderSoha MD Radar Systems Engineer 04/04/24 04/18/24 Nail Technician Teacher Relationship Specialty Start Date End Date Camilo Jonas MD [address] [place], [place] 72374691 PCP - General Family Medicine 06/15/16 Ny Ross MD [address] [place], [place] 16050[address] Referring Pulmonary and Critical Care Medicine 09/25/23 Janett Feliciano MD, PhD [address] [place] [address] Thoracic Surgery 10/22/23 Boaz Pineda DO [address], [address] [place] [address] Rheumatology 11/27/23 Alf Castle DO [address] [place], [place] 020921 Hematology/Oncology 12/03/23 Ann Randolph RN Specialty Scaler Oncology 12/03/23 Jennifer Renae, CARLO.DIRECTOR OF PURCHASING [address] [place] [address] Radar Systems Engineer [facility] 01/14/24 Sidra Hurley, RAILROAD MAINTENANCE CLERK.DIRECTOR OF PURCHASING [address] [place] [address] Radar Systems Engineer [facility] 01/14/24 Soha Alonso MD Radar Systems Engineer 04/04/24 04/18/24 Nail Technician Teacher Relationship Specialty Start Date End Date Camilo Jonas MD [address] [place], [place] 861541 PCP - General Family Medicine 06/15/16 Ny Ross MD [address] [place] [address] Referring Pulmonary and Critical Care Medicine 09/25/23 Janett Feliciano MD, PhD [address] [place] [address] Thoracic Surgery 10/22/23 Boaz Pineda DO [address], [address] [place] [address] Rheumatology 11/27/23 Alf Castle DO [address] [place] [address] Hematology/Oncology 12/03/23 Ann Randolph, ARTURO Specialty Scaler Oncology 12/03/23 Jennifer Renae APRN.DIRECTOR OF PURCHASING [address] [place] [address] Radar Systems Engineer [facility] 01/14/24 Sidra Hurley, RAILROAD MAINTENANCE CLERK.DIRECTOR OF PURCHASING [address] [place] [address] Radar Systems Engineer [facility] 01/14/24 Soha Alonso MD Radar Systems Engineer 04/04/24 04/18/24 Nail Technician Teacher Relationship Specialty Start Date End Date Camilo Jonas MD [address] [place], [place] 856361 PCP - General Family Medicine 06/15/16 Ny Ross MD [address] [place] [address] Referring Pulmonary and Critical Care Medicine 09/25/23 Janett Feliciano MD, PhD [address] [place] [address] Thoracic Surgery 10/22/23 Boaz Pineda DO [address], [address] [place] [address] Rheumatology 11/27/23 Alf Castle DO [address] [place] [place], [place] 295881 Hematology/Oncology 12/03/23 Ann Randolph RN Specialty Scaler Oncology 12/03/23 Jennifer Renae, RAILROAD MAINTENANCE CLERK.DIRECTOR OF PURCHASING [address] [place], [place] 346661 Radar Systems Engineer [facility] 01/14/24 Sidra Hurley, RAILROAD MAINTENANCE CLERK.DIRECTOR OF PURCHASING [address] [place], [place] 952441 Radar Systems Engineer [facility] 01/14/24 Soha Alonso MD Radar Systems Engineer 04/04/24 04/18/24 Nail Technician Teacher Relationship Specialty Start Date End Date Camilo Jonas MD [address] [place], [place] 172781 PCP - General Family Medicine 06/15/16 Ny Ross MD [address] [facility] [place], [place] 6895[address] Referring Pulmonary and Critical Care Medicine 09/25/23 Janett Feliciano MD, PhD [address] [place] [address] Thoracic Surgery 10/22/23 Boaz Pineda DO [address], [address] [place] [address] Rheumatology 11/27/23 Alf Castle DO [address] [place], [place] 718091 Hematology/Oncology 12/03/23 Ann Randolph RN Specialty Scaler Oncology 12/03/23 Jennifer Renae APRN.DIRECTOR OF PURCHASING [address] [place], [place] 470231 Radar Systems Engineer [facility] 01/14/24 Sidra Hurley RAILROAD MAINTENANCE CLERK.DIRECTOR OF PURCHASING [address] [place], [place] 11034[address] Radar Systems Engineer [facility] 01/14/24 ProviderSoha MD Radar Systems Engineer 04/04/24 04/18/24 Nail Technician Teacher Relationship Specialty Start Date End Date Camilo Jonas MD [address] [place], [place] 152421 PCP - General Family Medicine 06/15/16 Ny Ross MD [address] [place], [place] 307741 Referring Pulmonary and Critical Care Medicine 09/25/23 Janett Feliciano MD, PhD [address] [place] [address] Thoracic Surgery 10/22/23 Boaz Pineda DO [address], [address] [place] [address] Rheumatology 11/27/23 Alf Castle DO [address] [place], [place] 02826[address] Hematology/Oncology 12/03/23 Ann Randolph RN Specialty Scaler Oncology 12/03/23 Jennifer Renae APRN.DIRECTOR OF PURCHASING [address] [place] [address] Radar Systems Engineer [facility] 01/14/24 Sidra Hurley APRN.DIRECTOR OF PURCHASING [address] [place] [address] Radar Systems Engineer [facility] 01/14/24 Provider, MD Soha Radar Systems Engineer 04/04/24 04/18/24 Nail Technician Teacher Relationship Specialty Start Date End Date Camilo Jonas MD [address] [place], [place] 150141 PCP - General Family Medicine 06/15/16 Ny Ross MD [address] [place] [address] Referring Pulmonary and Critical Care Medicine 09/25/23 Janett Feliciano MD, PhD [address] [place] [address] Thoracic Surgery 10/22/23 Boaz Pineda DO [address] [place], [place] 7533695 Rheumatology 11/27/23 Alf Castle DO [address] [place] [address] Hematology/Oncology 12/03/23 Ann Randolph RN Specialty Scaler Oncology 12/03/23 Jennifer Renae APRN.DIRECTOR OF PURCHASING [address] [place] [address] Radar Systems Engineer [facility] 01/14/24 Sidra Hurley APRN.DIRECTOR OF PURCHASING [address] [place] [address] Radar Systems Engineer [facility] 01/14/24 Soha Alonso MD Radar Systems Engineer 04/04/24 04/18/24 Nail Technician Teacher Relationship Specialty Start Date End Date Camilo Jonas MD [address] [place], [place] 498741 PCP - General Family Medicine 06/15/16 Ny Ross MD [address] [place], [place] 439081 Referring Pulmonary and Critical Care Medicine 09/25/23 Janett Feliciano MD, PhD [address] [place] [address] Thoracic Surgery 10/22/23 Boaz Pineda DO [address], [address] [place] [address] Rheumatology 11/27/23 Alf Castle DO [address] [place], [place] 698541 Hematology/Oncology 12/03/23 Ann Randolph, ARTURO Specialty Scaler Oncology 12/03/23 Jennifer Renae, CARLO.DIRECTOR OF PURCHASING [address] [place], [place] 437411 Radar Systems Engineer [facility] 01/14/24 Sidra Hurley APRN.DIRECTOR OF PURCHASING [address] [place], [place] 814611 Radar Systems Engineer [facility] 01/14/24 Nail Technician Teacher Relationship Specialty Start Date End Date Camilo Jonas MD [address] [place], [place] 731751 PCP - General Family Medicine 06/15/16 Ny Ross MD [address] [place], [place] 549801 Referring Pulmonary and Critical Care Medicine 09/25/23 Janett Feliciano MD, PhD [address] [place], [place] 6337[address] Thoracic Surgery 10/22/23 Boaz Pineda DO [address] [place], [place] 24533[address] Rheumatology 11/27/23 Alf Castle DO [address] [place], [place] 506171 Hematology/Oncology 12/03/23 Ann Randolph, ARTURO Specialty Scaler Oncology 12/03/23 Jennifer Renae, CARLO.DIRECTOR OF PURCHASING [address] [place], [place] 269071 [facility] 01/14/24 Sidra Hurley, RAILROAD MAINTENANCE CLERK.DIRECTOR OF PURCHASING [address] [place] [address] [facility] 01/14/24 Soha Alonso MD Radar Systems Engineer 04/04/24 04/18/24 Nail Technician Teacher Relationship Specialty Start Date End Date Camilo Jonas MD [address] [place], [place] 150071 PCP - General Family Medicine 06/15/16 Ny Ross MD [address] [place], [place] 00[address] Referring Pulmonary and Critical Care Medicine 09/25/23 Janett Feliciano MD, PhD [address] [place] [address] Thoracic Surgery 10/22/23 Boaz Pineda DO [address] [place] [address] Rheumatology 11/27/23 Alf Castle DO [address] [place], [place] 6706[address] Hematology/Oncology 12/03/23 Ann Randolph RN Specialty Scaler Oncology 12/03/23 Jennifer Renae, CARLO.DIRECTOR OF PURCHASING [address] [place], [place] 798591 Radar Systems Engineer [facility] 01/14/24 Nail Technician Teacher Relationship Specialty Start Date End Date Camilo Jonas MD [address] [place], [place] [id number] PCP - General Family Medicine 06/15/16 Ny Ross MD [address] [place], [place] 299[address] Referring Pulmonary and Critical Care Medicine 09/25/23 Janett Feliciano MD, PhD [address] [place] [address] Thoracic Surgery 10/22/23 Boaz Pineda DO [address], [address] [place] [address] Rheumatology 11/27/23 Alf Castle DO [address] [place], [place] [id number] Hematology/Oncology 12/03/23 Ann Randolph RN Specialty Scaler Oncology 12/03/23 Jennifer Renae APRN.DIRECTOR OF PURCHASING [address] [place], [place] [id number] Radar Systems Engineer Family Medicine 01/14/24 Sidra Hurley, RAILROAD MAINTENANCE CLERK.DIRECTOR OF PURCHASING [address] [place], [place] [id number] Radar Systems Engineer Family Medicine 01/14/24 Nail Technician Teacher Relationship Specialty Start Date End Date Camilo Jonas MD [address] [place], [place] [id number] PCP - General Family Medicine 06/15/16 Ny Ross MD [address] [place], [place] [id number] Referring Pulmonary and Critical Care Medicine 09/25/23 Janett Feliciano MD, PhD [address] [place] [address] Thoracic Surgery 10/22/23 Boaz Pineda DO [address], [address] [place] [address] Rheumatology 11/27/23 Alf Castle DO [address] [place], [place] [phone] Hematology/Oncology 12/03/23 Ann Randolph RN Specialty Scaler Oncology 12/03/23 Jennifer Renae, CARLO.DIRECTOR OF PURCHASING [address] [place], [place] [id number] Radar Systems Engineer [facility] 01/14/24 Sidra Hurley, RAILROAD MAINTENANCE CLERK.DIRECTOR OF PURCHASING [address] [place], [place] 873021 Radar Systems Engineer [facility] 01/14/24 Nail Technician Teacher Relationship Specialty Start Date End Date Camilo Jonas MD [address] [place], [place] [id number] PCP - General Family Medicine 06/15/16 Ny Ross MD [address] [place], [place] [id number] Referring Pulmonary and Critical Care Medicine 09/25/23 Janett Feliciano MD, PhD [address] [place] [address] Thoracic Surgery 10/22/23 Boaz Pineda DO [address], [address] [place] [address] Rheumatology 11/27/23 Alf Castle DO [address] [place], [place] [id number] Hematology/Oncology 12/03/23 Ann Randolph RN Specialty Scaler Oncology 12/03/23 Jennifer Renae APRN.DIRECTOR OF PURCHASING [address] [place], [place] 821821 Radar Systems Engineer [facility] 01/14/24 Sidra Hurley APRN.DIRECTOR OF PURCHASING [address] [place], [place] [phone] Radar Systems Engineer [facility] 01/14/24 Nail Technician Teacher Relationship Specialty Start Date End Date Camilo Jonas MD [address] [place], [place] 173971 PCP - General Family Medicine 06/15/16 Ny Ross MD [address] [place], [place] [phone] Referring Pulmonary and Critical Care Medicine 09/25/23 Janett Feliciano MD, PhD [address] [place] [address] Thoracic Surgery 10/22/23 Boaz Pineda DO [address], [address] [place] [address] Rheumatology 11/27/23 Alf Castle DO [address] [place], [place] [phone] Hematology/Oncology 12/03/23 Ann Randolph RN Specialty Scaler Oncology 12/03/23 Jennifer Renae APRN.DIRECTOR OF PURCHASING [address] [place], [place] 753381 Radar Systems Engineer [facility] 01/14/24 Sidra Hurley APRN.DIRECTOR OF PURCHASING [address] [place], [place] [id number] Radar Systems Engineer [facility] 01/14/24 Nail Technician Teacher Relationship Specialty Start Date End Date Camilo Jonas MD [address] [place], [place] [id number] PCP - General Family Medicine 06/15/16 Ny Ross MD [address], [place] [phone] Referring Pulmonary and Critical Care Medicine 09/25/23 Janett Feliciano MD, PhD [address] [place] [id number] Thoracic Surgery 10/22/23 Boaz Pineda DO [address], [address] [place] [address] Rheumatology 11/27/23 Alf Castle DO [address] [place], [place] [phone] Hematology/Oncology 12/03/23 Ann Randolph RN Specialty Scaler Oncology 12/03/23 Jennifer Renae APRN.DIRECTOR OF PURCHASING [address] [place], [place] [id number] Radar Systems Engineer [facility] 01/14/24 Sidra Hurley APRN.DIRECTOR OF PURCHASING [address] [place], [place] 657671 Radar Systems Engineer [facility] 01/14/24 Nail Technician Teacher Relationship Specialty Start Date End Date Camilo Jonas MD [address] [place], [place] [phone] PCP - General Family Medicine 06/15/16 Ny Ross MD [address] [place], [place] [phone] Referring Pulmonary and Critical Care Medicine 09/25/23 Janett Feliciano MD, PhD [address] [place] [address] Thoracic Surgery 10/22/23 Boaz Pineda DO [address], [address] [place], [place] [phone] Rheumatology 11/27/23 Alf Castle DO [address] [place], [place] [phone] Hematology/Oncology 12/03/23 Ann Randolph, ARTURO Specialty Scaler Oncology 12/03/23 Jennifer Renae APRN.DIRECTOR OF PURCHASING [address] [place], [place] [phone] [facility] 01/14/24 Sidra Hurley APRN.DIRECTOR OF PURCHASING [address] [place], [place] [phone] Radar Systems Engineer Family Medicine 01/14/24 Nail Technician Teacher Relationship Specialty Start Date End Date Camilo Jonas MD [address] [place], [place] 661041 PCP - General Family Medicine 06/15/16 Ny Ross MD [address] [place], [place] [phone] Referring Pulmonary and Critical Care Medicine 09/25/23 Janett Feliciano MD, PhD [address] [place] [address] Thoracic Surgery 10/22/23 Boaz Pineda DO [address], [address] [place] [address] Rheumatology 11/27/23 Alf Castle DO [address] [place], [place] [id number] Hematology/Oncology 12/03/23 Ann Randolph RN Specialty Scaler Oncology 12/03/23 Jennifer Renae, CARLO.DIRECTOR OF PURCHASING [address] [place], [place] 020881 Radar Systems Engineer [facility] 01/14/24 Sidra Hurley RAILROAD MAINTENANCE CLERK.DIRECTOR OF PURCHASING [address] [place], [place] [phone] Radar Systems Engineer [facility] 01/14/24 Nail Technician Teacher Relationship Specialty Start Date End Date Camilo Jonas MD [address] [place], [place] [id number] PCP - General Family Medicine 06/15/16 Ny Ross MD [address] [place], [place] 6019[address] Referring Pulmonary and Critical Care Medicine 09/25/23 Janett Feliciano MD, PhD [address] [place] [address] Thoracic Surgery 10/22/23 Boaz Pineda DO [address], [address] [place] [address] Rheumatology 11/27/23 Alf Castle DO [address] [place], [place] 332[address] Hematology/Oncology 12/03/23 Ann Randolph RN Specialty Scaler Oncology 12/03/23 Jennifer Renae APRN.DIRECTOR OF PURCHASING [address] [place], [place] 883281 Radar Systems Engineer [facility] 01/14/24 Sidra Hurley, RAILROAD MAINTENANCE CLERK.DIRECTOR OF PURCHASING [address] [place], [place] 667551 Radar Systems Engineer [facility] 01/14/24 Nail Technician Teacher Relationship Specialty Start Date End Date Camilo Jonas MD [address] [place], [place] [phone] PCP - General Family Medicine 06/15/16 Ny Ross MD [address] [place], [place] 97[address] Referring Pulmonary and Critical Care Medicine 09/25/23 Janett Feliciano MD, PhD [address] [place] [address] Thoracic Surgery 10/22/23 Boaz Pineda DO [address], [address] [place] [address] Rheumatology 11/27/23 Alf Castle DO [address] [place], [place] [phone] Hematology/Oncology 12/03/23 Ann Randolph RN Specialty Scaler Oncology 12/03/23 Jennifer Renae APRN.DIRECTOR OF PURCHASING [address] [place], [place] 706661 Radar Systems Engineer Family Medicine 01/14/24 Sidra Hurley, RAILROAD MAINTENANCE CLERK.DIRECTOR OF PURCHASING [address] [place], [place] 968401 Radar Systems Engineer Family [facility] 01/14/24 Nail Technician Teacher Relationship Specialty Start Date End Date Camilo Jonas MD [address] [place], [place] [id number] PCP - General Family Medicine 06/15/16 Ny Ross MD [address] [place], [place] [phone] Referring Pulmonary and Critical Care Medicine 09/25/23 Janett Feliciano MD, PhD [address] [place] [address] Thoracic Surgery 10/22/23 Boaz Pineda DO [address], [address] [place] [address] Rheumatology 11/27/23 Alf Castle DO [address] [place], [place] [phone] Hematology/Oncology 12/03/23 Ann Randolph RN Specialty Scaler Oncology 12/03/23 Jennifer Renae APRN.DIRECTOR OF PURCHASING [address] [place], [place] [id number] Radar Systems Engineer [facility] 01/14/24 Sidra Hurley APRN.DIRECTOR OF PURCHASING [address] [place], [place] 0720[address] Radar Systems Engineer [facility] 01/14/24 Nail Technician Teacher Relationship Specialty Start Date End Date Camilo Jonas MD [address] [place], [place] [id number] PCP - General Family Medicine 06/15/16 Ny Ross MD [address] [place], [place] [phone] Referring Pulmonary and Critical Care Medicine 09/25/23 Janett Feliciano MD, PhD [address] [place] [address] Thoracic Surgery 10/22/23 Boaz Pineda DO [address], [address] [place] [address] Rheumatology 11/27/23 Alf Castle DO [address] [place], [place] 386981 Hematology/Oncology 12/03/23 Ann Randolph RN Specialty Scaler Oncology 12/03/23 Jennifer Renae APRN.DIRECTOR OF PURCHASING [address] [place], [place] 939371 Radar Systems Engineer [facility] 01/14/24 Sidra Hurley APRN.DIRECTOR OF PURCHASING [address] [place], [place] 900[address] Radar Systems Engineer [facility] 01/14/24 Nail Technician Teacher Relationship Specialty Start Date End Date Camilo Jonas MD [address] [place], [place] [id number] PCP - General Family Medicine 06/15/16 Ny Ross MD [address] [place], [place] [phone] Referring Pulmonary and Critical Care Medicine 09/25/23 Janett Feliciano MD, PhD [address] [place] [address] Thoracic Surgery 10/22/23 Boaz Pineda DO [address], [address] [place] [address] Rheumatology 11/27/23 Alf Castle DO [address] [place], [place] [phone] Hematology/Oncology 12/03/23 Ann Randolph RN Specialty Scaler Oncology 12/03/23 Jennifer Renae APRN.DIRECTOR OF PURCHASING [address] [place], [place] 8085[address] [facility] 01/14/24 Sidra Hurley APRN.DIRECTOR OF PURCHASING [address] [place], [place] 627601 [facility] 01/14/24 Nail Technician Teacher Relationship Specialty Start Date End Date Camilo Jonas MD [address] [place], [place] [phone] PCP - General Family Medicine 06/15/16 Ny Ross MD [address] [facility] [place], [place] 7385[address] Referring Pulmonary and Critical Care Medicine 09/25/23 Janett Feliciano MD, PhD [address] [place] [address] Thoracic Surgery 10/22/23 Boaz Pineda DO [address], [address] [place] [address] Rheumatology 11/27/23 Alf Castle DO [address] [place], [place] [phone] Hematology/Oncology 12/03/23 Ann Randolph RN Specialty Scaler Oncology 12/03/23 Jennifer Renae APRN.DIRECTOR OF PURCHASING [address] [place], [place] [phone] [facility] 01/14/24 Sidra Hurley APRN.[facility] [address] [facility] [place] [address] [facility] 01/14/24 INFORMATION SOURCE (unrecogn ized section and content) DATE CREATED AUTHOR 10/24/2023 [facility] DATE CREATED AUTHOR AUTHOR'S ORGANIZ ATION 12/20/2023 [facility] DATE CREATED AUTHOR AUTHOR'S ORGANIZ ATION 04/02/2024 [facility] DATE CREATED AUTHOR AUTHOR'S ORGANIZ ATION 04/28/2024 [facility] DATE CREATED AUTHOR AUTHOR'S ORGANIZ ATION 05/01/2024 [facility] DATE CREATED AUTHOR AUTHOR'S ORGANIZ ATION 09/23/2024 [facility] DATE CREATED AUTHOR AUTHOR'S ORGANIZ ATION 09/23/2024 [facility] FOR RECORDS PERTAINING TO PATIENTS WHO ARE OR HAVE BEEN ENROLLED IN A CHEMICAL DEPENDENCY/SUBSTANCEABUSE PROGRAM, SOME INFORMATION MAY BE OMITTED. This clinical summary was aggregated from multiple sources. Caution should be exercised in using it in the provision of clinical care. This summary normalizes information from multiple sources, and as a consequence, information in this document may materially change the coding, format and clinical context of patient data. In addition, data may be omitted in some cases. CLINICAL DECISIONS SHOULD BE BASED ON THE PRIMARY CLINICAL RECORDS. [facility] [employer] [facility]. provides no warranty or guarantee of the accuracy or completeness of information in this document.
== END | disposition home or self-care (01) ==
LOC: SL 19:54
PROVIDERS: PCP Family Medicine; Referring Provider Nurse Practitioner Primary Care; Visit Provider Nurse Practitioner Primary Care
DX: G47.33 Obstructive sleep apnea (adult) (pediatric) (principal)
CPT/HCPCS: 95810